=== PATIENT | female | born 1980 | race Two or more races ===

== ENCOUNTER 2024-04-12 12:23 | Emergency (ER) | payer MEDICAID, SELFPAY ==
[2024-04-12 12:49] VITALS: BP 128/79; PULSE 103; RESP 16; TEMP 39.1; O2SAT 96; BMI 30.7
--- NOTE | 2024-04-12 12:54 | XR_ITS ---
Examination: PA lateral chest 2 views Technique: Upright PA lateral chest 2 views Exam date and time: April 12, 2024 1402 hrs. Comparison May 11, 2023 Indications: Chest pain coughing abdominal pain beginning 2 days ago. Findings: Minimal opacity right base Mild prominence left ventricle Intact osseous structures Impression: Suspicious for early right base pneumonia
--- NOTE | 2024-04-12 12:55 | PD.EDRME ---
Rapid Medical Screening Exam RME Arrival date/time: 04/12/24 12:23 43-year-old female with diabetes, hypertension and valley fever presents to the emergency department complaints of back pain, fever and bodyaches Chief Complaint: Abdominal Pain Time Seen by Provider: 04/12/24 12:51 Vital signs: Vital Signs Temperature 102.4 F H 04/12/24 12:49 Pulse Rate 103 H 04/12/24 12:49 Respiratory Rate 16 04/12/24 12:49 Blood Pressure 128/79 04/12/24 12:49 Pulse Oximetry (%) 96 04/12/24 12:49 Oxygen Delivery Method Room Air 04/12/24 12:49
[2024-04-12 13:02] VITALS: TEMP 39.1
[2024-04-12] MEDS: ACETAMINOPHEN 500 MG TABLET 1000 MG PO (13:02)
[2024-04-12] MEDS: ONDANSETRON ODT 4 MG TABRAP PO (13:02)
[2024-04-12 13:09] LABS: Lactate (Lactic Acid) 1.8 mMol/L (0.4-2.0)
[2024-04-12 13:13] LABS: Basophils % (Auto) 0 % (0-2.5); Eosinophils % (Auto) 0 % (0-10); Hematocrit 33.7 % (36.0-46.0); Hemoglobin 11.4 g/dL (12.0-16.0); Immature Granulocytes % (Auto) 1 % (0-0); Immature Granulocytes Auto 0.07 Thou/mm3 (0.00-0.00); Lymphocytes # (Auto) 0.8 Thou/mm3 (1.0-4.8); Lymphocytes % (Auto) 6 % (10-50); Mean Corpuscular HGB Conc 33.8 g/dl (31.0-37.0); Mean Corpuscular Hemoglobin 26.6 pg (25.0-35.0); Mean Corpuscular Volume 79 fL (80-100); Monocytes # (Auto) 0.7 Thou/mm3 (0.0-0.8); Monocytes % (Auto) 5 % (0-12); Neutrophils # (Auto) 11.3 Thou/mm3 (1.8-7.7); Neutrophils % (Auto) 88 % (37-80); Nucleated Red Blood Cell % 0 /100 WBC (0); Platelet Count 378 Thou/mm3 (140-440); RDW Standard Deviation 38.9 fL (36.4-46.3); Red Blood Count 4.29 Miln/mm3 (4.00-5.20); White Blood Count 12.9 Thou/mm3 (3.6-11.0)
[2024-04-12 13:24] LABS: Glucose Estimated Average 295 mg/dL (80-131); Hemoglobin A1C 11.9 % Hgb (4.8-6.0)
[2024-04-12 13:39] LABS: Alanine Aminotransferase 7 U/L (10-49); Albumin, Serum 4.4 gm/dL (3.5-5.0); Albumin/Globulin Ratio 1.3 (1.2-2.2); Alkaline Phosphatase 143 U/L (46-116); Anion Gap 5 (7-16); Aspartate Amino Transferase < 10 U/L (0-34); BUN/Creatinine Ratio 14 Ratio (12-20); Bilirubin,Total 0.6 mg/dL (0.3-1.2); Blood Urea Nitrogen 17 mg/dL (9-23); Calcium 9.4 mg/dL (8.3-10.6); Calcium (Corrected) 9.4 mg/dL (8.5-10.1); Carbon Dioxide 23.7 mMol/L (20.0-31.0); Chloride 98 mMol/L (98-107); Creatinine (Component) 1.2 mg/dL (0.6-1.3); Estimated Creatinine Clearance 63.6 mL/min (>60); Globulin 3.4 gm/dL (2.3-3.5); Glucose 318 mg/dL (74-106); Osmolality,Calculated 268 (275-295); Potassium 3.6 mMol/L (3.4-5.1); Procalcitonin 0.25 ng/ml (0.0-0.49); Sodium 127 mMol/L (136-145); Total Protein 7.8 gm/dL (5.7-8.2); eGFR 58 See Note
[2024-04-12 14:20] LABS: Collection Type, Urine Clean Catch
[2024-04-12 14:27] LABS: HCG Qualitative,Urine Negative
[2024-04-12 14:35] LABS: Bacteria,Urine 4+; Bilirubin,Urine Negative (Negative); Blood,Urine 1+ (Negative); Clarity,Urine Turbid (Clear/Hazy); Color,Urine Yellow (Lt Yel-Yel); Glucose, Urine 4+ (Negative); Ketones,Urine Negative (Negative); Leukocyte Esterase,Urine Positive (Negative); Nitrite,Urine Negative (Negative); Protein,Urine 3+ (Neg - Trace); RBC,Urine 11 /hpf (0-3); Squamous Epithelial Cell,Urine < 1 /hpf (0-5); Urobilinogen,Urine Negative mg/dL (0.0-1.0); WBC,Urine 196 /hpf (0-5)
[2024-04-12 16:51] VITALS: BP 107/72; PULSE 76; RESP 15; TEMP 36.6; O2SAT 97
[2024-04-12 17:14] VITALS: TEMP 36.6
--- NOTE | 2024-04-12 17:54 | EDNOTE_ITS ---
ED Abdominal Pain RME/HPI General Chief Complaint: Abdominal Pain Stated complaint: Diffuse lower ab pain , fever x1 day, back pain Time seen by provider: 04/12/24 12:51 Arrival date/time: 04/12/24 12:23 This is a 43-year-old female that comes in with complaints of abdominal pain and back pain that started yesterday. Patient states she has a history of diabetes and has not taken her insulin today. Patient currently under the care of her primary provider. Patient was recently seen in ED with abnormal ct scans. 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, hypertension and valley fever presents to the emergency department complaints of back pain, fever and bodyaches Related Data Home Medications ?Medication ?Instructions ?Recorded ?Confirmed insulin glargine 100 unit/mL (3 15 unit subcut HS 05/26/21 03/04/23 mL) subcutaneous pen (Basaglar KwikPen U-100 Insulin) Previous Rx's ?Medication ?Instructions ?Recorded metformin 500 mg tablet 500 mg PO BID #60 tabs 10/18/22 lisinopril 20 mg tablet 20 mg PO QDAY 1 month #30 tabs 03/07/23 benzonatate 100 mg capsule 100 mg PO TID #14 caps 03/28/23 ibuprofen 800 mg tablet 800 mg PO TID PRN pain #30 tabs 03/28/23 ondansetron 4 mg disintegrating 4 mg PO Q8H PRN nausea and 03/28/23 tablet vomiting #10 tabs nirmatrelvir 300 mg (150 mg See Rx Instructions PO .COMPLEX 04/30/23 x2)-ritonavir 100 mg tablet,dose #30 tabs pack (Paxlovid) ibuprofen 800 mg tablet 800 mg PO TID PRN pain #30 tabs 03/13/24 cefuroxime axetil 500 mg tablet 500 mg PO BID #14 tabs 03/21/24 ibuprofen 800 mg tablet 800 mg PO Q8H #14 tabs 04/12/24 levofloxacin 750 mg tablet 750 mg PO QDAY #7 tabs 04/12/24 Allergies Allergy/AdvReac Type Severity Reaction Status Date / Time No Known Allergies Allergy Verified 03/21/24 16:15 Review of Systems Review of Systems Systems Reviewed: All systems reviewed, normal except as documented Past Medical History Past Medical History NEUROLOGIC: Negative Neurological Disorders, Cerebrovascular Accident, Transient Ischemic Attacks (TIA) or Seizures CARDIAC: Positive Cardiac Disorders and Hypertension; Negative Myocardial Infarction, Hypercholesterolemia or Congestive Heart Failure RESPIRATORY: Negative Chronic Obstructive Pulmonary Disease (COPD) or Asthma GASTROINTESTINAL: Negative Gastrointestinal Disorders, Hepatitis, Gastrointestin al Bleed, Colorectal Cancer, Hemorrhoids or Gastroesophageal Reflux Disease GENITOURINARY: Negative Genitourinary Disorders, Renal Disease, Kidney Stones or Prostate Cancer REPRODUCTIVE: Positive Previous Pregnancies; Negative Breast Cancer, Pelvic Inflammatory Disease or Testicular Cancer MUSCULOSKELETAL: Negative Musculoskeletal Disorders, Bone Cancer or Arthritis ENDOCRINE: Positive Diabetes Mellitus Type 2; Negative Endocrine Disorders, Diabetes Mellitus Type 1, Hyperthyroidism or Hypothyroidism HEMATOLOGIC: Negative Blood Disorders, Anemia or Sickle Cell Disease PSYCHO/SOCIAL: Positive Anxiety; Negative Recreational Drug Use or Depression OTHER HISTORY: Positive Blood Transfusions, Blood Transfusion Reaction and Cancer; Negative Autoimmune Disease, Anesthesia Reactions, Organ Transplant, Chemotherapy, Radiation Therapy, Hyperbaric Therapy, MRSA, VRSA, Vancomycin- Resistant Enterococci, Human Immunodeficiency Virus (HIV), Chicken Pox, Measles, Mumps, Rubella (Sinhala Measles), Pertussis, Clostridium Difficile, Breast Cancer, Cervical Cancer, Colorectal Cancer, Lung Cancer, Ovarian Cancer, Prostate Cancer or Testicular Cancer Family History FAMILY HISTORY: Positive Family Cardiac Disorders; Negative Family Psychiatric Problems, Family Respiratory Disorders, Family Gastrointestinal Problems, Family Cancer, Family Surgery or Family Anesthesia Reaction Surgical History SURGICAL: Positive Section; Negative Organ Transplant Social History SMOKING STATUS: Never smoker SUBSTANCE USE: does not use ED Exam General General appearance: Present alert and in no apparent distress Head Head exam: Present atraumatic Eye Eye exam: Present normal appearance, PERRL and EOMI ENT ENT exam: Present normal exam, normal oropharynx and mucous membranes moist Neck Neck exam: Present normal inspection, full ROM and trachea midline Chest Chest inspection: Present normal inspection and symmetric chest wall rise Respiratory Respiratory exam: Present normal lung sounds bilaterally Cardiovascular Cardiovascular exam: Present regular rate, normal rhythm and normal heart sounds Abdominal Exam Abdominal exam: Present soft and other (nontender to palpation ) Extremities Exam Extremities exam: Present normal inspection and full ROM Back Exam Back exam: Present normal inspection and full ROM Neurological Exam Neurological exam: Present alert, oriented X3 and CN II-XII intact Psychiatric Psychiatric exam: Present normal affect and normal mood Skin Skin exam: Present warm, dry, intact and normal color Course Quality Measures none Orders Category Date Time Status Bedside COVID-19 Antigen Test NOW Care 11/16/24 12:54 Completed Bedside Influenza A&B Antigen Test NOW Care 04/12/24 12:54 Completed Glucose [Bedside Blood Glucose] NOW Care 04/12/24 17:56 Completed XR chest 2V Stat Exams 04/12/24 12:54 Completed A1C [Glycohemoglobin w (eAG)] Stat Lab 04/12/24 13:00 Completed Blood Culture (Lab) Stat Lab 04/12/24 12:55 Completed CBC Stat Lab 04/12/24 13:00 Completed Comprehensive Metabolic Panel Stat Lab 04/12/24 13:00 Completed HCG Qualitative,Urine Stat Lab 04/12/24 13:59 Completed Lactate (Lactic Acid) Stat Lab 04/12/24 13:00 Completed Procalcitonin Stat Lab 04/12/24 13:00 Completed Urinalysis Stat Lab 04/12/24 13:59 Completed Urine Culture Stat Lab 04/12/24 13:59 Completed Acetaminophen Tab [Tylenol ES Tab] Med 04/12/24 12:55 Discontinued 1,000 mg PO X1 ONE Ketorolac Inj [Toradol Inj] Med 04/12/24 17:53 Discontinued 60 mg IM X1 ONE Ondansetron Odt [Zofran Odt] Med 04/12/24 12:55 Discontinued 4 mg PO X1 ONE cefTRIAXone [Rocephin] 1,000 mg Med 04/12/24 17:54 Discontinued Lidocaine 1% 20 ml [Xylocaine 1% 20 ML] 2.1 ml IM X1 Vital Signs Vital signs: Vital Signs Temperature 102.4 F H 04/12/24 12:49 Pulse Rate 103 H 04/12/24 12:49 Respiratory Rate 16 04/12/24 12:49 Blood Pressure 128/79 04/12/24 12:49 Pulse Oximetry (%) 96 04/12/24 12:49 Oxygen Delivery Method Room Air 04/12/24 12:49 Abdominal Pain MDM MDM Narrative MDM Narrative:: This is a 43-year-old female that comes in with complaints of abdominal pain and back pain that started yesterday. Patient states she has a history of diabetes and has not taken her insulin today. Patient currently under the care of her primary provider. Patient was recently seen in ED with abnormal ct scans. Chest x ray shows: Findings: Minimal opacity right base Mild prominence left ventricle Intact osseous structures Impression: Suspicious for early right base pneumonia Labs show slightly elevated wbc of 12.9. Pt had elevated glucose of 318. hbg a1c of 11.9. Pt urine showed uti. Pt chest x ray also shows possible early pneumonia. Will give a dose of rocephin. Pt given tylenol and toradol for pain. Pt feels better. Pt feels comfortable going home at this time. Will have pt follow up with primary provider in 1-2 days. Come back to ED if symptoms change or worsen. Patient data External records reviewed:: [facility] previous records Clinical information provided by:: patient Social determinants that could affect healthcare access:: none Patient has the following chronic illnesses:: diabetes How is presenting disease/condition affected by chronic disease/condition?: exacerbated by Evaluation data The following diagnostics were reviewed and interpreted by me:: lab results and radiology exam(s) Lab and/or radiology exams considered but not ordered:: none Interpretation Summary: see note Medications / Prescriptions Medications or Prescriptions considered but not ordered:: none Medication administrations:: Medication Administration History Discontinued Medications Acetaminophen (Acetaminophen 500 Mg Tablet) 1,000 mg PO X1 ONE Stop: 04/12/24 12:56 Last Admin: 04/12/24 13:02 Dose: 1,000 mg Documented By: KENYETTA Ceftriaxone Sodium 1,000 mg/ (Lidocaine HCl 2.1 ml) 0 mg IM X1 ONE Stop: 04/12/24 17:55 Last Admin: 04/12/24 18:20 Dose: 1,000 mg Documented By: Ketorolac Tromethamine (Ketorolac Inj 60 Mg/2 Ml Vial) 60 mg IM X1 ONE Stop: 04/12/24 17:54 Last Admin: 04/12/24 18:20 Dose: 60 mg Documented By: Ondansetron HCl (Ondansetron Odt 4 Mg Tabrap) 4 mg PO X1 ONE; Protocol Stop: 04/12/24 12:56 Last Admin: 04/12/24 13:02 Dose: 4 mg Documented By: KENYETTA see [facility] Consultations Consultation(s) initiated? (list below): No Diagnosis Differential diagnosis abdominal pain: abdominal pain, acute appendicitis, constipation and other (pneumonia ) Most likely diagnosis given after review of the tests above:: pneumonia, uti Admission Indicated Admission indicated?: not indicated Admission Request Was there a request for admission?: No Disposition Plan Disposition Plan: Discharge Discharge Attestation Discharge Attestation: The patient and all family members were given an opportunity to ask questions and understood the discharge instructions. Discharge instructions specifically effects, indications for sooner follow up or return to the emergency department, and the expected course of current diagnosis. Patient condition: Stable Discharge Plan Plan Patient Disposition: HOME (Self Care) Patient condition on transfer: Stable Prescriptions/Referrals Prescriptions/Med Rec: New levofloxacin 750 mg tablet 750 mg PO QDAY Qty: 7 0RF ibuprofen 800 mg tablet 800 mg PO Q8H Qty: 14 0RF No Action insulin glargine [Basaglar KwikPen U-100 Insulin] 100 unit/mL (3 mL) Insulin Pen 15 unit SUBCUT HS metformin 500 mg tablet 500 mg PO BID Qty: 60 0RF lisinopril 20 mg tablet 20 mg PO QDAY 30 Days Qty: 30 3RF ibuprofen 800 mg tablet 800 mg PO TID PRN (Reason: pain) Qty: 30 0RF benzonatate 100 mg capsule 100 mg PO TID Qty: 14 0RF ondansetron 4 mg tablet,disintegrating 4 mg PO Q8H PRN (Reason: nausea and vomiting) Qty: 10 0RF Paxlovid 300 mg (150 mg x 2)-100 mg tablets,dose pack See Rx Instructions .ROUTE .COMPLEX Qty: 30 0RF Rx Instructions: take TWO 150 mg tablets of nirmatrelvir with ONE 100 mg tablet of ritonavir twice daily for 5 days ibuprofen 800 mg tablet 800 mg PO TID PRN (Reason: pain) Qty: 30 0RF cefuroxime axetil 500 mg tablet 500 mg PO BID Qty: 14 0RF Referrals: Stan Cedillo MD [Primary Care Provider] - In 1 week Problem List Clinical Impression: UTI (urinary tract infection), Hematuria, Pneumonia, Hyperglycemia Patient/Caregiver Discharge Instructions Discharge Activity: activity as tolerated Education Materials: ED Pneumonia (Adult), ED CYSTITIS Female Adult Additional Instructions: Follow-up with primary provider in 1 to 2 days come back to the emergency room if symptoms change or worsen.. Print Language: Telugu Stand Alone Forms: Nina Award Info., Patient Portal Info Letter Attestation Attestation The patient was seen by the midlevel practitioner. I, the co-signing physician, was present during the entire ER visit. While I did not physically examine the patient, I was available for consultation as needed.
[2024-04-12] MEDS: KETOROLAC INJ 60 MG/2 ML VIAL IM (18:20)
[2024-04-12] MEDS: cefTRIAXone 1,000 MG, LIDOCAINE 1% 20 ML 2.1 ML IM (18:20)
[2024-04-12 18:36] VITALS: BP 121/76; PULSE 86; RESP 13; TEMP 36.6; O2SAT 100
[2024-04-12 19:16] VITALS: BP 134/78; PULSE 79; RESP 19; O2SAT 99
== END 2024-04-12 19:18 | disposition home or self-care (01) ==
PROVIDERS: Nurse Practitioner Primary Care; Emergency Provider Emergency Medicine; PCP Family Medicine
DX: N39.0 Urinary tract infection, site not specified (principal); J18.9 Pneumonia, unspecified organism; R31.9 Hematuria, unspecified; E10.65 Type 1 diabetes mellitus with hyperglycemia
CPT/HCPCS: 36415; 71046; 80053; 81001; 81025; 83036; 83605; 84145; 85025; 87040; 87077; 87086; 87186; 87400; 87811; 96372; 99283; J0696; J1885; J3490; Q0162; A9270

== ENCOUNTER 2024-05-19 01:35 | Emergency (ER) | payer MEDICAID, SELFPAY ==
[2024-05-19 01:35] VITALS: BMI 32.5
[2024-05-19 01:53] VITALS: BP 159/89; PULSE 90; RESP 17; TEMP 37; O2SAT 97
--- NOTE | 2024-05-19 02:07 | EDNOTE_ITS ---
ED Ear RME/HPI General Chief complaint: Ear Stated complaint: RT EAR PAIN SINCE SUNDAY Time Seen by Provider: 05/19/24 01:46 Source: patient Arrival date/time: 05/19/24 01:35 43-year-old female presents emergency department complaining of right ear pain that is been ongoing for 3 days. Patient denies any fever, chills, sore throat, cough, shortness of breath, or any other associated symptom. Mode of arrival: ambulatory Limitations: no limitations Related Data Home Medications ?Medication ?Instructions ?Recorded ?Confirmed insulin glargine 100 unit/mL (3 15 unit subcut HS 05/26/21 03/04/23 mL) subcutaneous pen (Basaglar KwikPen U-100 Insulin) Previous Rx's ?Medication ?Instructions ?Recorded metformin 500 mg tablet 500 mg PO BID #60 tabs 10/18/22 lisinopril 20 mg tablet 20 mg PO QDAY 1 month #30 tabs 03/07/23 benzonatate 100 mg capsule 100 mg PO TID #14 caps 03/28/23 ibuprofen 800 mg tablet 800 mg PO TID PRN pain #30 tabs 03/28/23 ondansetron 4 mg disintegrating 4 mg PO Q8H PRN nausea and 03/28/23 tablet vomiting #10 tabs nirmatrelvir 300 mg (150 mg See Rx Instructions PO .COMPLEX 04/30/23 x2)-ritonavir 100 mg tablet,dose #30 tabs pack (Paxlovid) ibuprofen 800 mg tablet 800 mg PO TID PRN pain #30 tabs 03/13/24 cefuroxime axetil 500 mg tablet 500 mg PO BID #14 tabs 03/21/24 ibuprofen 800 mg tablet 800 mg PO Q8H #14 tabs 04/12/24 levofloxacin 750 mg tablet 750 mg PO QDAY #7 tabs 04/12/24 amoxicillin 875 mg tablet 875 mg PO BID 7 days #14 tabs 05/19/24 ibuprofen 600 mg tablet 600 mg PO Q8H PRN pain #20 tabs 05/19/24 Allergies Allergy/AdvReac Type Severity Reaction Status Date / Time No Known Allergies Allergy Verified 05/19/24 01:37 Review of Systems Review of Systems Systems Reviewed: All systems reviewed, normal except as documented Constitutional Constitutional: Reports system reviewed and no additional complaints, except as documented, Denies body ache(s), Denies chills and Denies fever(s) Eyes Eyes: Reports system reviewed and no additional complaints, except as documented and Denies change in vision ENT Ears, Nose, Mouth, and Throat: Reports system reviewed and no additional complaints, except as documented, Denies disequilibrium, Denies dizziness, Reports otalgia, Denies sore throat and Denies vertigo Cardiovascular Cardiovascular: Reports system reviewed and no additional complaints, except as documented, Denies chest pain and Denies dyspnea Respiratory Respiratory: Reports system reviewed and no additional complaints, except as documented, Denies chest congestion, Denies cough and Denies dyspnea Gastrointestinal Gastrointestinal: Reports system reviewed and no additional complaints, except as documented, Denies abdominal pain, Denies nausea and Denies vomiting Musculoskeletal Musculoskeletal: Reports system reviewed and no additional complaints, except as documented, Denies abnormal gait and Denies arthralgias Integumentary/Breasts Skin/Breast: Reports system reviewed and no additional complaints, except as documented, Denies erythema, Denies rash and Denies wounds Neurologic Neurologic: Reports system reviewed and no additional complaints, except as documented, Denies abnormal gait, Denies disequilibrium, Denies dizziness and Denies vertigo Past Medical History Past Medical History NEUROLOGIC: Negative Neurological Disorders, Cerebrovascular Accident, Transient Ischemic Attacks (TIA) or Seizures CARDIAC: Positive Cardiac Disorders and Hypertension; Negative Myocardial Infarction, Hypercholesterolemia or Congestive Heart Failure RESPIRATORY: Negative Chronic Obstructive Pulmonary Disease (COPD) or Asthma GASTROINTESTINAL: Negative Gastrointestinal Disorders, Hepatitis, Gastrointestinal Bleed, Colorectal Cancer, Hemorrhoids or Gastroesophageal Reflux Disease GENITOURINARY: Negative Genitourinary Disorders, Renal Disease, Kidney Stones or Prostate Cancer REPRODUCTIVE: Positive Previous Pregnancies; Negative Breast Cancer, Pelvic Inflammatory Disease or Testicular Cancer MUSCULOSKELETAL: Negative Musculoskeletal Disorders, Bone Cancer or Arthritis ENDOCRINE: Positive Diabetes Mellitus Type 2; Negative Endocrine Disorders, Diabetes Mellitus Type 1, Hyperthyroidism or Hypothyroidism HEMATOLOGIC: Negative Blood Disorders, Anemia or Sickle Cell Disease PSYCHO/SOCIAL: Positive Anxiety; Negative Recreational Drug Use or Depression OTHER HISTORY: Positive Blood Transfusions, Blood Transfusion Reaction and Cancer; Negative Autoimmune Disease, Anesthesia Reactions, Organ Transplant, Chemotherapy, Radiation Therapy, Hyperbaric Therapy, MRSA, VRSA, Vancomycin- Resistant Enterococci, Human Immunodeficiency Virus (HIV), Chicken Pox, Measles, Mumps, Rubella (Greek Measles), Pertussis, Clostridium Difficile, Breast Ca ncer, Cervical Cancer, Colorectal Cancer, Lung Cancer, Ovarian Cancer, Prostate Cancer or Testicular Cancer Family History FAMILY HISTORY: Positive Family Cardiac Disorders; Negative Family Psychiatric Problems, Family Respiratory Disorders, Family Gastrointestinal Problems, Family Cancer, Family Surgery or Family Anesthesia Reaction Surgical History SURGICAL: Positive Section; Negative Organ Transplant Social History SMOKING STATUS: Never smoker SUBSTANCE USE: does not use ED Exam General Limitations: Present no limitations General appearance: Present alert and in no apparent distress Head Head exam: Present atraumatic Eye Eye exam: Present normal appearance, PERRL and EOMI ENT ENT exam: Present normal exam, normal oropharynx and mucous membranes moist Expanded ENT Exam TM/Canal exam: Right TM: erythema, bulging and canal tenderness Neck Neck exam: Present normal inspection, full ROM and trachea midline Chest Chest inspection: Present normal inspection and symmetric chest wall rise Respiratory Respiratory exam: Present normal lung sounds bilaterally Cardiovascular Cardiovascular exam: Present regular rate, normal rhythm and normal heart sounds Abdominal Exam Abdominal exam: Present soft and normal bowel sounds Extremities Exam Extremities exam: Present normal inspection and full ROM Back Exam Back exam: Present normal inspection and full ROM Neurological Exam Neurological exam: Present alert, oriented X3 and CN II-XII intact Psychiatric Psychiatric exam: Present normal affect and normal mood Skin Skin exam: Present warm, dry, intact and normal color Course Quality Measures none Vital Signs Vital signs: Vital Signs Temperature 98.6 F 05/19/24 01:53 Pulse Rate 90 05/19/24 01:53 Respiratory Rate 17 05/19/24 01:53 Blood Pressure 159/89 H 05/19/24 01:53 Pulse Oximetry (%) 97 05/19/24 01:53 Oxygen Delivery Method Room Air 05/19/24 01:53 97% room air within normal limits Ear MDM Narrative MDM Narrative:: 43-year-old female presents emergency department complaining of right ear pain that is been ongoing for 3 days. Patient denies any fever, chills, sore throat, cough, shortness of breath, or any other associated symptom. Patient appears nontoxic and hemodynamically stable. ENT exam consistent with right ear otitis media. Patient discharged on oral antibiotics and instructed to follow-up with primary care provider and return to emergency department for any worsening symptoms or as needed. Patient data External records reviewed:: [facility] previous records Clinical information provided by:: patient Social determinants that could affect healthcare access:: none Patient has the following chronic illnesses:: See chart How is presenting disease/condition affected by chronic disease/condition?: uneffected by Evaluation data The following diagnostics were reviewed and interpreted by me:: other (specify) (N/A) Lab and/or radiology exams considered but not ordered:: N/A Interpretation Summary: N/A Medications / Prescriptions Medications or Prescriptions considered but not ordered:: N/A Medication administrations:: N/A Consultations Consultation(s) initiated? (list below): No Diagnosis Ear Differential Diagnosis: otitis externa, otitis media and ruptured TM Most likely diagnosis given after review of the tests above:: Otitis media Admission Indicated Admission indicated?: not indicated Admission Request Was there a request for admission?: No Disposition Plan Disposition Plan: Discharge Discharge Attestation Discharge Attestation: The patient and all family members were given an opportunity to ask questions and understood the discharge instructions. Discharge instructions specifically effects, indications for sooner follow up or return to the emergency department, and the expected course of current diagnosis. Patient condition: Stable Discharge Plan Plan Patient Disposition: HOME (Self Care) Disposition Comment: Stable Prescriptions/Referrals Prescriptions/Med Rec: New amoxicillin 875 mg tablet 875 mg PO BID 7 Days Qty: 14 0RF ibuprofen 600 mg tablet 600 mg PO Q8H PRN (Reason: pain) Qty: 20 0RF No Action insulin glargine [Basaglar KwikPen U-100 Insulin] 100 unit/mL (3 mL) Insulin Pen 15 unit SUBCUT HS metformin 500 mg tablet 500 mg PO BID Qty: 60 0RF lisinopril 20 mg tablet 20 mg PO QDAY 30 Days Qty: 30 3RF ibuprofen 800 mg tablet 800 mg PO TID PRN (Reason: pain) Qty: 30 0RF benzonatate 100 mg capsule 100 mg PO TID Qty: 14 0RF ondansetron 4 mg tablet,disintegrating 4 mg PO Q8H PRN (Reason: nausea and vomiting) Qty: 10 0RF Paxlovid 300 mg (150 mg x 2)-100 mg tablets,dose pack See Rx Instructions .ROUTE .COMPLEX Qty: 30 0RF Rx Instructions: take TWO 150 mg tablets of nirmatrelvir with ONE 100 mg tablet of ritonavir twice daily for 5 days levofloxacin 750 mg tablet 750 mg PO QDAY Qty: 7 0RF ibuprofen 800 mg tablet 800 mg PO Q8H Qty: 14 0RF ibuprofen 800 mg tablet 800 mg PO TID PRN (Reason: pain) Qty: 30 0RF cefuroxime axetil 500 mg tablet 500 mg PO BID Qty: 14 0RF Problem List Clinical Impression: Otitis media Patient/Caregiver Discharge Instructions Discharge Activity: activity as tolerated Education Materials: ED Otitis Media Antibiotic ... Additional Instructions: Take antibiotics as prescribed. Andrey ibuprofen or Tylenol as needed for pain. Follow-up with primary care provider in 2 to 3 days. Return return to emergency department for any worsening symptoms or as needed Print Language: Romanian Stand Alone Forms: Nina Award Info., Patient Portal Info Letter PA/NURSE COLLEGE Supervising Physician PA/NURSE COLLEGE Supervising Physician: Dr. Calvin
== END 2024-05-19 02:37 | disposition home or self-care (01) ==
PROVIDERS: Emergency Provider Emergency Medicine; PCP Family Medicine
DX: H66.91 Otitis media, unspecified, right ear (principal)
CPT/HCPCS: 99281

== ENCOUNTER 2024-05-23 15:51 | Emergency (ER) | payer MEDICAID, SELFPAY ==
[2024-05-23 16:05] VITALS: BP 137/85; PULSE 90; RESP 17; TEMP 36.9; O2SAT 98; BMI 32.1
--- NOTE | 2024-05-23 16:53 | EDNOTE_ITS ---
ED Ear RME/HPI General Chief complaint: Ear Stated complaint: RIGHT EAR INFECTION NOW FEELING PAIN TO LEFT EAR Time Seen by Provider: 05/23/24 16:38 Source: patient and family Arrival date/time: 05/23/24 15:51 This is a 43-year-old female presents to the emergency department with complai nts of bodyaches, headache, cough and bilateral ear pressure. Patient reports she has had fever was seen by her PCP and was placed on Augmentin. Positive flulike symptoms for 2 days. Does report positive sick contacts at home similar symptoms. Denies chest pain, dyspnea. Mode of arrival: ambulatory Related Data Home Medications ?Medication ?Instructions ?Recorded ?Confirmed insulin glargine 100 unit/mL (3 15 unit subcut HS 05/26/21 03/04/23 mL) subcutaneous pen (Basaglar KwikPen U-100 Insulin) Previous Rx's ?Medication ?Instructions ?Recorded metformin 500 mg tablet 500 mg PO BID #60 tabs 10/18/22 lisinopril 20 mg tablet 20 mg PO QDAY 1 month #30 tabs 03/07/23 benzonatate 100 mg capsule 100 mg PO TID #14 caps 03/28/23 ibuprofen 800 mg tablet 800 mg PO TID PRN pain #30 tabs 03/28/23 ondansetron 4 mg disintegrating 4 mg PO Q8H PRN nausea and 03/28/23 tablet vomiting #10 tabs nirmatrelvir 300 mg (150 mg See Rx Instructions PO .COMPLEX 04/30/23 x2)-ritonavir 100 mg tablet,dose #30 tabs pack (Paxlovid) ibuprofen 800 mg tablet 800 mg PO TID PRN pain #30 tabs 03/13/24 cefuroxime axetil 500 mg tablet 500 mg PO BID #14 tabs 03/21/24 ibuprofen 800 mg tablet 800 mg PO Q8H #14 tabs 04/12/24 levofloxacin 750 mg tablet 750 mg PO QDAY #7 tabs 04/12/24 amoxicillin 875 mg tablet 875 mg PO BID 7 days #14 tabs 05/19/24 ibuprofen 600 mg tablet 600 mg PO Q8H PRN pain #20 tabs 05/19/24 fluticasone propionate 50 2 spray intranasal QDAY PRN nasal 05/23/24 mcg/actuation nasal congestion #16 grams spray,suspension (Flonase Allergy Relief) oseltamivir 75 mg capsule (Tamiflu) 75 mg PO BID 5 days #10 caps 05/23/24 promethazine-DM 6.25 mg-15 mg/5 mL 5 ml PO Q6H PRN cough #118 mL 05/23/24 oral syrup Allergies Allergy/AdvReac Type Severity Reaction Status Date / Time No Known Allergies Allergy Verified 05/19/24 01:37 Review of Systems Review of Systems Systems Reviewed: All systems reviewed, normal except as documented Narrative Review of Systems: Gen: + fever, no chills, no weight loss, + body ache EYES: No discharge, no visual changes, no pain HEENT: + ear pain, no congestion, no sore throat PULM: No shortness of breath, + cough, no congestion CV: No chest pain, no dyspnea on exertion, no palpitations GI: No nausea, no vomiting, no diarrhea, no pain, no constipation : No frequency, no urgency,? no dysuria Musc/skel: No joint pain, no back pain Skin: No rash? Neuro: No weakness, + headache ED Exam Narrative Physical exam: General: Sittiing in Exam table in no acute distress, answering questions appropriately HENT: normocephalic, atraumatic, EOMI, PERRLA, moist mucous membranes. Tympanic membranes normal pink Chest: chest wall is nontender Cardiac: regular rate and rhythm, normal S1 and S2, no murmurs, rubs, or gallops, capillary refill ?2 seconds Pulmonary: clear to auscultation bilaterally, no wheezing, crackles, or rhonchi Abdominal: active bowel sounds, soft, nontender, nondistended Neuro: A&OX3, CN II-XII intact, sensation grossly intact bilaterally in UE and LE. Skin: no rashes, no ecchymosis Ext: no lower extremity edema Course Quality Measures none Vital Signs Vital signs: Vital Signs Temperature 98.5 F 05/23/24 16:05 Pulse Rate 90 05/23/24 16:05 Respiratory Rate 17 05/23/24 16:05 Blood Pressure 137/85 H 05/23/24 16:05 Pulse Oximetry (%) 98 05/23/24 16:05 Oxygen Delivery Method Room Air 05/23/24 16:05 Ear MDM Narrative MDM Narrative:: 43-year-old female presented to the emergency department with flulike symptoms. Patient is awake and alert in no significant distress advised we will send appropriate medication adjunct medication for treatment at home. Advised to follow-up with her PCP or clinic on Sunday for follow-up care Patient data External records reviewed:: [facility] previous records Clinical information provided by:: patient Social determinants that could affect healthcare access:: none Patient has the following chronic illnesses:: none How is presenting disease/condition affected by chronic disease/condition?: no chronic disease Evaluation data The following diagnostics were reviewed and interpreted by me:: other (specify) Lab and/or radiology exams considered but not ordered:: none Interpretation Summary: none Medications / Prescriptions Medications or Prescriptions considered but not ordered:: none Medication administrations:: none Consultations Consultation(s) initiated? (list below): No Diagnosis Ear Differential Diagnosis: otitis externa, otitis media, ruptured TM, cerumen impaction and other Most likely diagnosis given after review of the tests above:: Influenza Admission Indicated Admission indicated?: not indicated Explain why admission is indicated or not indicated:: none Admission Request Was there a request for admission?: No Disposition Plan Disposition Plan: Discharge Discharge Attestation Discharge Attestation: The patient and all family members were given an opportunity to ask questions and understood the discharge instructions. Discharge instructions specifically effects, indications for sooner follow up or return to the emergency department, and the expected course of current diagnosis. Patient condition: Stable Discharge Plan Plan Patient Disposition: HOME (Self Care) Patient condition on transfer: Stable Prescriptions/Referrals Prescriptions/Med Rec: New oseltamivir [Tamiflu] 75 mg capsule 75 mg PO BID 5 Days Qty: 10 0RF fluticasone propionate [Flonase Allergy Relief] 50 mcg/actuation spray,suspension 2 spray intranasal QDAY PRN (Reason: nasal congestion) Qty: 16 0RF Rx Instructions: administer into each nostril promethazine-DM 6.25-15 mg/5 mL syrup 5 ml PO Q6H PRN (Reason: cough) Qty: 118 0RF No Action insulin glargine [Basaglar KwikPen U-100 Insulin] 100 unit/mL (3 mL) Insulin Pen 15 unit SUBCUT HS metformin 500 mg tablet 500 mg PO BID Qty: 60 0RF lisinopril 20 mg tablet 20 mg PO QDAY 30 Days Qty: 30 3RF ibuprofen 800 mg tablet 800 mg PO TID PRN (Reason: pain) Qty: 30 0RF benzonatate 100 mg capsule 100 mg PO TID Qty: 14 0RF ondansetron 4 mg tablet,disintegrating 4 mg PO Q8H PRN (Reason: nausea and vomiting) Qty: 10 0RF Paxlovid 300 mg (150 mg x 2)-100 mg tablets,dose pack See Rx Instructions .ROUTE .COMPLEX Qty: 30 0RF Rx Instructions: take TWO 150 mg tablets of nirmatrelvir with ONE 100 mg tablet of ritonavir twice daily for 5 days levofloxacin 750 mg tablet 750 mg PO QDAY Qty: 7 0RF ibuprofen 800 mg tablet 800 mg PO Q8H Qty: 14 0RF ibuprofen 800 mg tablet 800 mg PO TID PRN (Reason: pain) Qty: 30 0RF cefuroxime axetil 500 mg tablet 500 mg PO BID Qty: 14 0RF amoxicillin 875 mg tablet 875 mg PO BID 7 Days Qty: 14 0RF ibuprofen 600 mg tablet 600 mg PO Q8H PRN (Reason: pain) Qty: 20 0RF Problem List Clinical Impression: Influenza Patient/Caregiver Discharge Instructions Discharge Activity: activity as tolerated Education Materials: ED Influenza (Adult) Additional Instructions: Start Tamiflu, antipyretics to pharmacy. Advised to increase hydration, warm tea and chicken rice soup can corrugator helper for throat pain. Please follow-up with your clinic 3-day follow-up. If you develop any type of respiratory distress or change in condition please go immediately to nearest emergency department Print Language: Belarusian Stand Alone Forms: Nina Award Info., Patient Portal Info Letter PA/[employer] Supervising Physician PA/[employer] Supervising Physician: Dr Gloria
== END 2024-05-23 17:19 | disposition home or self-care (01) ==
LOC: SERX 17:14
PROVIDERS: Emergency Provider Emergency Medicine; PCP Family Medicine
DX: J11.1 Influenza due to unidentified influenza virus with other respiratory manifestations (principal)
CPT/HCPCS: 99281

== ENCOUNTER 2024-05-31 16:41 | Emergency (ER) | payer MEDICAID, SELFPAY ==
--- NOTE | 2024-05-31 18:33 | PC.NURSE ---
pt was not found outside and did not answer when name was called from lobby.
--- NOTE | 2024-05-31 19:15 | PC.NURSE ---
NO ANSWER FOR CALL BACK TO MAIN ED
== END 2024-05-31 19:50 | disposition left against medical advice (07) ==
LOC: SERX 19:45
PROVIDERS: Emergency Provider Emergency Medicine
DX: Z53.21 Procedure and treatment not carried out due to patient leaving prior to being seen by health care provider (principal)

== ENCOUNTER 2024-07-16 06:29 | Emergency (ER) | payer MEDICAID, SELFPAY ==
[2024-07-16 06:30] VITALS: BMI 34.5
[2024-07-16 06:44] VITALS: BP 183/103; PULSE 88; RESP 16; TEMP 36.8; O2SAT 100
--- NOTE | 2024-07-16 06:51 | XR_ITS ---
Examination: CT brain head without contrast. 2-D sagittal coronal reconstructions Date and time of exam:July 16, 2024 0752 hrs. Indications: Headaches beginning 3 days ago CTDI: vol (mGy):55 DLP: (mGycm):1086 Technique: Multiple CT axial sections of the brain have been obtained, 5 mm slice thickness. Contrast has not been administered. 2-D sagittal, coronal reconstructions have been obtained Low dose protocols were performed. One or more of the following dose reduction techniques were used; automated exposure control, adjustment of the mA and/or KV according to patient size, use of iterative reconstruction technique. Findings: No significant ventricular enlargement. Intra-axial or extra-axial hemorrhage density is not seen. No mass effect or midline shift Basal cisterns are not remarkable. Fourth ventricle is midline. Cranial vault intact. Impression: Negative for acute hemorrhage, mass effect or midline shift
--- NOTE | 2024-07-16 06:51 | XR_ITS ---
Examination: PA lateral chest 2 views TECHNIQUE: Upright PA lateral chest 2 views Exam date and time: July 16, 2024 0744 hours INDICATIONS: Onset chest pain today FINDINGS: Poorly defined nodular density 18 mm in the right lower lobe, which may represent vasculature Mild prominence left ventricle No pulmonary edema IMPRESSION: Recommend AP lordotic chest follow-up to exclude 18 mm nodule in the right lower lobe
--- NOTE | 2024-07-16 06:51 | EKG_ITS ---
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
[2024-07-16 06:57] VITALS: BP 183/103; PULSE 88
[2024-07-16] MEDS: Lisinopril 20 MG TABLET 40 MG PO (06:57)
[2024-07-16] MEDS: ACETAMINOPHEN 500 MG TABLET 1000 MG PO (06:58)
[2024-07-16 08:33] LABS: Basophils % (Auto) 0 % (0-2.5); Eosinophils # (Auto) 0.1 Thou/mm3 (0.0-0.5); Eosinophils % (Auto) 1 % (0-10); Hematocrit 32.4 % (36.0-46.0); Hemoglobin 10.4 g/dL (12.0-16.0); Immature Granulocytes % (Auto) 0 % (0-0); Immature Granulocytes Auto 0.03 Thou/mm3 (0.00-0.00); Lymphocytes # (Auto) 1.1 Thou/mm3 (1.0-4.8); Lymphocytes % (Auto) 14 % (10-50); Mean Corpuscular HGB Conc 32.1 g/dl (31.0-37.0); Mean Corpuscular Hemoglobin 25.5 pg (25.0-35.0); Mean Corpuscular Volume 79 fL (80-100); Monocytes # (Auto) 0.4 Thou/mm3 (0.0-0.8); Monocytes % (Auto) 5 % (0-12); Neutrophils # (Auto) 6.3 Thou/mm3 (1.8-7.7); Neutrophils % (Auto) 80 % (37-80); Nucleated Red Blood Cell % 0 /100 WBC (0); Platelet Count 360 Thou/mm3 (140-440); RDW Standard Deviation 40.9 fL (36.4-46.3); Red Blood Count 4.08 Miln/mm3 (4.00-5.20); White Blood Count 7.9 Thou/mm3 (3.6-11.0)
[2024-07-16 08:57] LABS: Alanine Aminotransferase 9 U/L (10-49); Albumin, Serum 4.1 gm/dL (3.5-5.0); Albumin/Globulin Ratio 1.4 (1.2-2.2); Alkaline Phosphatase 130 U/L (46-116); Anion Gap 7 (7-16); Aspartate Amino Transferase 10 U/L (0-34); BUN/Creatinine Ratio 23 Ratio (12-20); Bilirubin,Total 0.2 mg/dL (0.3-1.2); Blood Urea Nitrogen 25 mg/dL (9-23); Calcium 8.8 mg/dL (8.3-10.6); Calcium (Corrected) 8.8 mg/dL (8.5-10.1); Carbon Dioxide 24.6 mMol/L (20.0-31.0); Chloride 103 mMol/L (98-107); Creatinine (Component) 1.1 mg/dL (0.6-1.3); Estimated Creatinine Clearance 68.4 mL/min (>60); Glucose 236 mg/dL (74-106); Glucose Estimated Average 272 mg/dL (80-131); Hemoglobin A1C 11.1 % Hgb (4.8-6.0); Osmolality,Calculated 282 (275-295); Potassium 4.3 mMol/L (3.4-5.1); Sodium 135 mMol/L (136-145); Total Protein 7.1 gm/dL (5.7-8.2); Troponin I < 0.002 ng/mL (0.0-0.045); eGFR > 60 See Note
--- NOTE | 2024-07-16 08:59 | EDNOTE_ITS ---
ED General RME/HPI General Chief complaint: General Adult/Misc Complain Stated complaint: GENERAL BODYACHES AND NAUSEA Time Seen by Provider: 07/16/24 06:47 Arrival date/time: 07/16/24 06:29 43-year-old female presents to the emergency department today complaints of nausea left-sided body pain patient for symptoms ongoing, last couple of days patient reports no numbness or tingling. Patient reports that she is experiencing pain on the left side of her body Limitations: no limitations Related Data Home Medications ?Medication ?Instructions ?Recorded ?Confirmed insulin glargine 100 unit/mL (3 15 unit subcut HS 04/2903/04/23 mL) subcutaneous pen (Basaglar KwikPen U-100 Insulin) Previous Rx's ?Medication ?Instructions ?Recorded metformin 500 mg tablet 500 mg PO BID #60 tabs 10/18 lisinopril 20 mg tablet 20 mg PO QDAY 1 month #30 ta bs 03/07/23 benzonatate 100 mg capsule 100 mg PO TID #14 caps 06/19 ibuprofen 800 mg tablet 800 mg PO TID PRN pain #30 t abs 03/28/23 ondansetron 4 mg disintegrating 4 mg PO Q8H PRN nausea and 03/28/23 tablet vomiting #10 tabs nirmatrelvir 300 mg (150 mg See Rx Instructions PO .CO MPLEX 04/30/23 x2)-ritonavir 100 mg tablet,dose #30 tabs pack (Paxlovid) ibuprofen 800 mg tablet 800 mg PO TID PRN pain #30 t abs 03/13/24 cefuroxime axetil 500 mg tablet 500 mg PO BID #14 tabs 03/21/24 ibuprofen 800 mg tablet 800 mg PO Q8H #14 tabs 04/12 levofloxacin 750 mg tablet 750 mg PO QDAY #7 tabs 03/28 11/18 ibuprofen 600 mg tablet 600 mg PO Q8H PRN pain #20 t abs 05/19/24 fluticasone propionate 50 2 spray intranasal QDAY PRN nasal 05/23/24 mcg/actuation nasal congestion #16 grams spray,suspension (Flonase Allergy Relief) promethazine-DM 6.25 mg-15 mg/5 mL 5 ml PO Q6H PRN cou gh #118 mL 05/23/24 oral syrup ibuprofen 600 mg tablet 600 mg PO Q6H #30 tabs 07/16 Allergies Allergy/AdvReac Type Severity Reaction Status Date / Time No Known Allergies Allergy Verified 05/31/24 16:42 Review of Systems Review of Systems Systems Reviewed: All systems reviewed, normal except as documented Constitutional Constitutional: Reports system reviewed and no additional complaints, except as documented, Denies fever(s) and Reports headache(s) Eyes Eyes: Reports system reviewed and no additional complaints, except as documented and Denies blurry vision ENT Ears, Nose, Mouth, and Throat: Reports system reviewed and no additional complaints, except as documented, Reports headache(s), Denies nasal congestion and Denies nasal discharge Cardiovascular Cardiovascular: Reports system reviewed and no additional complaints, except as documented, Denies chest pain and Denies dyspnea Respiratory Respiratory: Reports system reviewed and no additional complaints, except as documented, Denies chest congestion, Denies cough and Denies dyspnea Gastrointestinal Gastrointestinal: Reports system reviewed and no additional complaints, except as documented and Denies abdominal pain Integumentary/Breasts Skin/Breast: Reports system reviewed and no additional complaints, except as documented and Denies rash Neurologic Neurologic: Reports system reviewed and no additional complaints, except as documented, Reports as per HPI and Reports headache(s) Past Medical History Past Medical History NEUROLOGIC: Negative Neurological Disorders, Cerebrovascular Accident, Transient Ischemic Attacks (TIA) or Seizures CARDIAC: Positive Cardiac Disorders and Hypertension; Negative Myocardial Infarction, Hypercholesterolemia or Congestive Heart Failure RESPIRATORY: Negative Chronic Obstructive Pulmonary Disease (COPD) or Asthma GASTROINTESTINAL: Negative Gastrointestinal Disorders, Hepatitis, Gastrointestinal Bleed, Colorectal Cancer, Hemorrhoids or Gastroesophageal Reflux Disease GENITOURINARY: Negative Genitourinary Disorders, Renal Disease, Kidney Stones or Prostate Cancer REPRODUCTIVE: Positive Previous Pregnancies; Negative Breast Cancer, Pelvic Inflammatory Disease or Testicular Cancer MUSCULOSKELETAL: Negative Musculoskeletal Disorders, Bone Cancer or Arthritis ENDOCRINE: Positive Diabetes Mellitus Type 2; Negative Endocrine Disorders, Diabetes Mellitus Type 1, Hyperthyroidism or Hypothyroidism HEMATOLOGIC: Negative Blood Disorders, Anemia or Sickle Cell Disease PSYCHO/SOCIAL: Positive Anxiety; Negative Recreational Drug Use or Depression OTHER HISTORY: Positive Blood Transfusions, Blood Transfusion Reaction and Cancer; Negative Autoimmune Disease, Anesthesia Reactions, Organ Transplant, Chemotherapy, Radiation Therapy, Hyperbaric Therapy, MRSA, VRSA, Vancomycin- Resistant Enterococci, Human Immunodeficiency Virus (HIV), Chicken Pox, Measles, Mumps, Rubella (Citizen [place] Measles), Pertussis, Clostridium Difficile, Breast Cancer, Cervical Cancer, Colorectal Cancer, Lung Cancer, Ovarian Cancer, Prostate Cancer or Testicular Cancer Family History FAMILY HISTORY: Positive Family Cardiac Disorders; Negative Family Psychiatric Problems, Family Respiratory Disorders, Family Gastrointestinal Problems, Family Cancer, Family Surgery or Family Anesthesia Reaction Surgical History SURGICAL: Positive Section; Negative Organ Transplant Social History SMOKING STATUS: Never smoker SUBSTANCE USE: does not use ED Exam General Limitations: Present no limitations General appearance: Present alert and in no apparent distress Head Head exam: Present atraumatic Eye Eye exam: Present normal appearance, PERRL and EOMI ENT ENT exam: Present normal exam, normal oropharynx and mucous membranes moist Neck Neck exam: Present normal inspection, full ROM and trachea midline Chest Chest inspection: Present normal inspection and symmetric chest wall rise Respiratory Respiratory exam: Present normal lung sounds bilaterally Cardiovascular Cardiovascular exam: Present regular rate, normal rhythm and normal heart sounds Abdominal Exam Abdominal exam: Present soft and normal bowel sounds Extremities Exam Extremities exam: Present normal inspection and full ROM Back Exam Back exam: Present normal inspection and full ROM Neurological Exam Neurological exam: Present alert, oriented X3 and CN II-XII intact Psychiatric Psychiatric exam: Present normal affect and normal mood Skin Skin exam: Present warm, dry, intact and normal color Course Quality Measures none Orders Category Date Time Status Bedside Blood Glucose NOW Care 07/16/24 06:53 Completed EKG (ED ONLY) *Do not use* NOW Care 07/16/24 06:[address] head/brain wo con Stat Exams 07/16/24 06:51 Completed EKG (ED Only) Stat Exams 07/16/24 06:51 Draft XR chest 2V Stat Exams 07/16/24 06:51 Completed A1C [Glycohemoglobin w (eAG)] Stat Lab 07/16/24 07:40 Completed CBC Stat Lab 07/16/24 07:40 Completed Comprehensive Metabolic Panel Stat Lab 07/16/24 07:40 Completed Troponin I Stat Lab 07/16/24 07:40 Completed Acetaminophen Tab [Tylenol ES Tab] Med 07/16/24 06:51 Discontinued 1,000 mg PO X1 ONE Lisinopril [Prinivil] Med 07/16/24 06:51 Discontinued 40 mg PO X1 ONE Vital Signs Vital signs: Vital Signs Temperature 98.3 F 07/16/24 06:44 Pulse Rate 88 07/16/24 06:44 Respiratory Rate 16 07/16/24 06:44 Blood Pressure 183/103 H 07/16/24 06:44 Pulse Oximetry (%) 100 07/16/24 06:44 Oxygen Delivery Method Room Air 07/16/24 06:44 O2 saturation 100% room air within normal limits Procedures -ED EKG Interpretation #1: Date of EK07/16/24 Time of EK:19 Rate: 87 Interpretation: Interpreted by me EKG Impression: Normal sinus rhythm, No acute ST-T changes, No ectopy, No ischemic changes, Normal QRS, Normal intervals and Normal axis MDM Patient data External records reviewed:: [facility] previous records Clinical information provided by:: patient Social determinants that could affect healthcare access:: none Patient has the following chronic illnesses:: None How is presenting disease/condition affected by chronic disease/condition?: no chronic disease Evaluation data The following diagnostics were reviewed and interpreted by me:: lab results, radiology exam(s) and EKG tracing(s) Lab and/or radiology exams considered but not ordered:: Labs, radiology, EKG obtained Interpretation Summary: Reviewed by me Medications Medications considered but not ordered:: Given Medication administrations:: Medication Administration History Discontinued Medications Acetaminophen (Acetaminophen 500 Mg Tablet) 1,000 mg PO X1 ONE Stop: 07/16/24 06:52 Last Admin: 07/16/24 06:58 Dose: 1,000 mg Documented By: MARCO ANTONIO Lisinopril (Lisinopril 20 Mg Tablet) 40 mg PO X1 ONE Stop: 07/16/24 06:52 Last Admin: 07/16/24 06:57 Dose: 40 mg Documented By: MARCO ANTONIO Given Consultations Consultation(s) initiated? (list below): No Diagnosis Differential Diagnosis ED Complaint MDM: Headache, dizziness, weakness, body aches Most likely diagnosis given after review of the tests above:: Headache, dizziness Admission Indicated Admission indicated?: not indicated Explain why admission is indicated or not indicated:: No cardiac Admission Request Was there a request for admission?: No Disposition Plan Disposition Plan: Discharge Discharge Attestation Discharge Attestation: The patient and all family members were given an opportunity to ask questions and understood the discharge instructions. Discharge instructions specifically effects, indications for sooner follow up or return to the emergency department, and the expected course of current diagnosis. Patient condition: Stable Medical Decision Making MDM Narrative MDM Narrative: 43-year-old female presents to the emergency department today complaints of nausea left-sided body pain patient for symptoms ongoing, last couple of days patient reports no numbness or tingling. Patient reports that she is experiencing pain on the left side of her body On exam patient well-appearing patient does not appear ill or toxic patient walks with steady gait patient has no abnormal neurological findings Lab work CT scan x-ray and EKG obtained There are no acute emergent findings at this time Patient discharged home in no distress to follow-up with primary care doctor in the next 24 to 48 hours and for any worsening symptoms to return to the ER immediately Differential Diagnosis Differential Diagnosis: Headache, dizziness, weakness, body aches Medical Records Medical records reviewed: Yes I reviewed the patient's medical records. Lab Data Lab results reviewed: Yes I reviewed the patient's lab results. 07/16/24 07:40 07/16/24 07:40 Labs: Lab Results 07/16/24 Range/Units 07:40 WBC 7.9 (3.6-11.0) Thou/mm3 RBC 4.08 (4.00-5.20) Miln/mm3 Hgb 10.4 L (12.0-16.0) g/dL Hct 32.4 L (36.0-46.0) % MCV 79 L (80-100) fL MCH 25.5 (25.0-35.0) pg MCHC 32.1 (31.0-37.0) g/dl RDW Std Deviation 40.9 (36.4-46.3) fL Plt Count 360 (140-440) Thou/mm3 Neut % (Auto) 80 (37-80) % Lymph % (Auto) 14 (10-50) % Reeves % (Auto) 5 (0-12) % Eos % (Auto) 1 (0-10) % Baso % (Auto) 0 (0-2.5) % Neut # (Auto) 6.3 (1.8-7.7) Thou/mm3 Lymph # (Auto) 1.1 (1.0-4.8) Thou/mm3 Reeves # (Auto) 0.4 (0.0-0.8) Thou/mm3 Eos # (Auto) 0.1 (0.0-0.5) Thou/mm3 Baso # (Auto) 0.0 (0.0-0.2) Thou/mm3 Immature Gran # (Auto) 0.03 H (0.00-0.00) Thou/mm3 Absolute Nucleated RBC 0.00 (0.00-0.00) Thou/mm3 Immature Gran % 0 (0-0) % Nucleated RBC % 0 (0) /100 WBC Sodium 135 L (136-145) mMol/L Potassium 4.3 (3.4-5.1) mMol/L Chloride 103 (98-107) mMol/L Carbon Dioxide 24.6 (20.0-31.0) mMol/L Anion Gap 7 (7-16) BUN 25 H (9-23) mg/dL Creatinine 1.1 (0.6-1.3) mg/dL Estim Creat Clear Calc 68.4 (>60) mL/min eGFR > 60 (60 - ) See Note BUN/Creatinine Ratio 23 H (12-20) Ratio Glucose 236 H (74-106) mg/dL Estimated Ave Glu mg/dL 272 H (80-131) mg/dL Hemoglobin A1c 11.1 H (4.8-6.0) % Hgb Calculated Osmolality 282 (275-295) Calcium 8.8 (8.3-10.6) mg/dL Corrected Calcium 8.8 (8.5-10.1) mg/dL Total Bilirubin 0.2 L (0.3-1.2) mg/dL AST 10 (0-34) U/L ALT 9 L (10-49) U/L Alkaline Phosphatase 130 H (46-116) U/L Troponin I < 0.002 (0.0-0.045) ng/mL Total Protein 7.1 (5.7-8.2) gm/dL Albumin 4.1 (3.5-5.0) gm/dL Globulin 3.0 (2.3-3.5) gm/dL Albumin/Globulin Ratio 1.4 (1.2-2.2) Radiology Data Radiology results reviewed: Yes I reviewed the patient's radiology results. Discharge Plan Plan Patient Disposition: HOME (Self Care) Disposition Comment: Stable Prescriptions/Referrals Prescriptions/Med Rec: New ibuprofen 600 mg tablet 600 mg PO Q6H Qty: 30 0RF No Action insulin glargine [Basaglar KwikPen U-100 Insulin] 100 unit/mL (3 mL) Insulin Pen 15 unit SUBCUT HS metformin 500 mg tablet 500 mg PO BID Qty: 60 0RF lisinopril 20 mg tablet 20 mg PO QDAY 30 Days Qty: 30 3RF ibuprofen 800 mg tablet 800 mg PO TID PRN (Reason: pain) Qty: 30 0RF benzonatate 100 mg capsule 100 mg PO TID Qty: 14 0RF ondansetron 4 mg tablet,disintegrating 4 mg PO Q8H PRN (Reason: nausea and vomiting) Qty: 10 0RF Paxlovid 300 mg (150 mg x 2)-100 mg tablets,dose pack See Rx Instructions .ROUTE .COMPLEX Qty: 30 0RF Rx Instructions: take TWO 150 mg tablets of nirmatrelvir with ONE 100 mg tablet of ritonavir twice daily for 5 days levofloxacin 750 mg tablet 750 mg PO QDAY Qty: 7 0RF ibuprofen 800 mg tablet 800 mg PO Q8H Qty: 14 0RF fluticasone propionate [Flonase Allergy Relief] 50 mcg/actuation spray,suspension 2 spray intranasal QDAY PRN (Reason: nasal congestion) Qty: 16 0RF Rx Instructions: administer into each nostril promethazine-DM 6.25-15 mg/5 mL syrup 5 ml PO Q6H PRN (Reason: cough) Qty: 118 0RF ibuprofen 800 mg tablet 800 mg PO TID PRN (Reason: pain) Qty: 30 0RF cefuroxime axetil 500 mg tablet 500 mg PO BID Qty: 14 0RF ibuprofen 600 mg tablet 600 mg PO Q8H PRN (Reason: pain) Qty: 20 0RF Referrals: Stan Cedillo MD [Primary Care Provider] - In 1 week Problem List Clinical Impression: Body aches Patient/Caregiver Discharge Instructions Education Materials: Measuring Your Pain Additional Instructions: Please follow up with your primary care doctor in the next 24-48hrs for any worsening symptoms return here immediately Please have repeat chest x-ray in outpatient basis in the next 1 to 2 weeks Print Language: Romansh Stand Alone Forms: Nina Award Info., Patient Portal Info Letter PA/ENVIRONMENTAL MAINTENANCE WORKER Supervising Physician PA/ENVIRONMENTAL MAINTENANCE WORKER Supervising Physician: Dr Gloria
== END 2024-07-16 13:29 | disposition home or self-care (01) ==
PROVIDERS: Nurse Practitioner Primary Care; Emergency Provider Emergency Medicine; PCP Family Medicine
DX: R52 Pain, unspecified (principal); R11.0 Nausea
CPT/HCPCS: 36415; 70450; 71046; 80053; 83036; 84484; 85025; 93005; 99284; A9270

== ENCOUNTER 2024-08-17 22:14 | Emergency (ER) | payer MEDICAID, SELFPAY ==
--- NOTE | 2024-08-17 22:26 | PD.EDADULT ---
ED General RME/HPI General Chief complaint: Extremity Problem,Nontraumatic Stated complaint: BOTH LEG SWELLING Time Seen by Provider: 08/17/24 22:25 Arrival date/time: 08/17/24 22:14 RME / HPI RME / HPI narrative: This section includes all my notes and documentations, including HPI, PE, and ED course. Bassem Calvin MD HPI: 44-year-old female here with multiple concerns. Has HTN and DM. For the past several days, she reports headache and blurry vision and sinus congestion and cough and swelling in the feet and lower legs. No speech impairment. No loss of power in arms legs. No chest pain or shortness of breath. No other complaints. ROS: All negative except as documented in HPI. Physical Exam: General: Alert and oriented. No acute distress. High BP noted. Eyes: Conjunctivae and lids clear. EOMI. PERRL. ENT: No nasal congestion. Pharynx normal. Tympanic membrane normal bilaterally. Neck: Supple. No lymphadenopathy. No JVD. Heart: RRR. Lungs: No respiratory distress. Good air movement. No rhonchi, wheezing, rales. Chest: No tenderness. Abdomen: Soft and nontender. Normal bowel sounds. No distension. No rebound or guarding. Back: No CVA tenderness. Legs: No clubbing, cyanosis, edema. Skin: Warm and dry. Neuro: Alert and oriented X 3. Cranial Nerves II-XII grossly intact. No peripheral motor deficits. I reviewed all diagnostic test results. My interpretation of the EKG is sinus rhythm with no acute ST?T changes. My interpretation of the chest x-ray is right field infiltrates. My review of the head CT report is sinusitis. My review of the bilateral leg US report is no DVT. Blood tests and urine tests remarkable for glucose 268. At this point, diagnoses include hypertensive urgency, hyperglycemia, pneumonia, and sinusitis. Treatment here included oral clonidine 0.3 mg, oral Zithromax 500 mg, and regular insulin 5 units SC. Significant improvement noted. Recommended more outpatient care and workup. Based on my best medical judgment, made decision no further evaluation or treatment indicated at this time. Patient understands and agrees to the discharge instructions customized and printed, see below. Discharge instructions from Dr. Calvin: 1. After extensive evaluation, there is no life-threatening condition.? Such as stroke or brain tumor or heart attack or pulmonary embolism (blood clots in your lungs) or pneumothorax (collapsed lung). No blood clots in your legs. 2. But we found very high BP, pneumonia, sinus infection, and high sugar level. 3. Take clonidine 0.1 mg (two pills) every morning and every night until seen by your doctor. Take Zithromax and cefdinir for pneumonia and sinus infection. Elevate your feet/ankles above your waist level when sitting or resting or sleeping. 4. See a private doctor on 08/19/2024 for recheck and further care. Ask to review all test results and official radiology reports, to make sure you receive all necessary follow-ups and monitoring. 5. Seek immediate medical care with worsening or with any concerns.?? Bassem Calvin MD Related Data Home Medications ?Medication ?Instructions ?Recorded ?Confirmed insulin glargine 100 unit/mL (3 15 unit subcut HS 05/26/21 03/04/23 mL) subcutaneous pen (Basaglar KwikPen U-100 Insulin) Previous Rx's ?Medication ?Instructions ?Recorded metformin 500 mg tablet 500 mg PO BID #60 tabs 10/18/22 lisinopril 20 mg tablet 20 mg PO QDAY 1 month #30 tabs 03/07/23 benzonatate 100 mg capsule 100 mg PO TID #14 caps 03/28/23 ibuprofen 800 mg tablet 800 mg PO TID PRN pain #30 tabs 03/28/23 ondansetron 4 mg disintegrating 4 mg PO Q8H PRN nausea and 03/28/23 tablet vomiting #10 tabs nirmatrelvir 300 mg (150 mg See Rx Instructions PO .COMPLEX 04/30/23 x2)-ritonavir 100 mg tablet,dose #30 tabs pack (Paxlovid) ibuprofen 800 mg tablet 800 mg PO TID PRN pain #30 tabs 03/13/24 cefuroxime axetil 500 mg tablet 500 mg PO BID #14 tabs 03/21/24 ibuprofen 800 mg tablet 800 mg PO Q8H #14 tabs 04/12/24 levofloxacin 750 mg tablet 750 mg PO QDAY #7 tabs 04/12/24 ibuprofen 600 mg tablet 600 mg PO Q8H PRN pain #20 tabs 05/19/24 fluticasone propionate 50 2 spray intranasal QDAY PRN nasal 05/23/24 mcg/actuation nasal congestion #16 grams spray,suspension (Flonase Allergy Relief) promethazine-DM 6.25 mg-15 mg/5 mL 5 ml PO Q6H PRN cough #118 mL 05/23/24 oral syrup ibuprofen 600 mg tablet 600 mg PO Q6H #30 tabs 07/16/24 azithromycin 500 mg tablet 500 mg PO QDAY 3 days #3 tabs 08/18/24 (Zithromax TRI-DANA) cefdinir 300 mg capsule 300 mg PO BID #14 caps 08/18/24 clonidine HCl 0.1 mg tablet 0.2 mg (2 x 0.1 mg) PO BID #120 08/18/24 tabs Allergies Allergy/AdvReac Type Severity Reaction Status Date / Time No Known Allergies Allergy Verified 08/17/24 22:15 Course Quality Measures none Orders Category Date Time Status Bedside COVID-19 Antigen Test NOW Care 08/17/24 22:50 Completed Bedside Influenza A&B Antigen Test NOW Care 08/17/24 22:50 Completed EKG (ED ONLY) *Do not use* NOW Care 08/17/24 22:50 Completed Saline [Insert IV] NOW Care 08/17/24 22:[address] head/brain wo con Stat Exams 08/17/24 22:50 Taken EKG (ED Only) Stat Exams 08/17/24 22:50 Draft US venous doppler LE BI Stat Exams 08/17/24 22:50 Completed XR chest 1V portable Stat Exams 08/17/24 22:50 Completed BNP [B-Type Natriuretic Peptide] Stat Lab 08/17/24 23:53 Completed CBC Stat Lab 08/17/24 23:53 Completed CMP [Comprehensive Metabolic Panel] Stat Lab 08/17/24 23:53 Completed D-Dimer Stat Lab 08/17/24 23:53 Completed Magnesium Stat Lab 08/17/24 23:53 Completed TSH [Thyroid Stimulating Hormone] Stat Lab 08/17/24 23:53 Completed Troponin I Stat Lab 08/17/24 23:53 Completed UA, C/S IF [Urinalysis, C/S if Indicated] Stat Lab 08/18/24 00:28 Completed Azithromycin Po [Zithromax PO] Med 08/18/24 00:58 Discontinued 500 mg PO X1 ONE Insulin Regular Med 08/18/24 00:47 Discontinued 5 unit IV X1 ONE Insulin Regular Med 08/18/24 00:58 Discontinued 5 unit SC X1 ONE cloNIDine HCL [Catapres] Med 08/17/24 22:47 Discontinued 0.3 mg PO X1 ONE Vital Signs Vital signs: Vital Signs Temperature 98.3 F 08/17/24 22:28 Pulse Rate 74 08/17/24 22:28 Respiratory Rate 20 08/17/24 22:28 Blood Pressure 205/83 H 08/17/24 22:28 Pulse Oximetry (%) 100 08/17/24 22:28 Oxygen Delivery Method Room Air 08/17/24 22:28 [facility] Patient data External records reviewed:: [facility] previous records Clinical information provided by:: patient Social determinants that could affect healthcare access:: none Patient has the following chronic illnesses:: HTN and DM How is presenting disease/condition affected by chronic disease/condition?: exacerbated by Evaluation data The following diagnostics were reviewed and interpreted by me:: lab results, radiology exam(s) and EKG tracing(s) (My interpretation of the EKG: NSR (71 bpm) with no ST-T changes. Bassem Calvin MD) Lab and/or radiology exams considered but not ordered:: None Interpretation Summary: Hypertensive urgency and hyperglycemia and sinusitis and pneumonia Medications Medications considered but not ordered:: None Medication administrations:: Medication Administration History Discontinued Medications Azithromycin (Azithromycin 250 Mg Tablet) 500 mg PO X1 ONE Stop: 08/18/24 00:59 Last Admin: 08/18/24 01:21 Dose: 500 mg Documented By: KG Clonidine (Clonidine Hcl 0.1 Mg Tablet) 0.3 mg PO X1 ONE Stop: 08/17/24 22:48 Last Admin: 08/17/24 23:01 Dose: 0.3 mg Documented By: KG Insulin Human Regular (Insulin Hum Regular 1 Unit/0.01 Ml (Per Unit)) 5 unit IV X1 ONE Stop: 08/18/24 00:48 Last Admin: 08/18/24 01:22 Dose: Not Given Documented By: KG Non-Admin Reason: Discontinued Insulin Human Regular (Insulin Hum Regular 1 Unit/0.01 Ml (Per Unit)) 5 unit SC X1 ONE Stop: 08/18/24 00:59 Last Admin: 08/18/24 01:17 Dose: 5 unit Documented By: KG Co-signed By: CCT Clonidine and Zithromax and insulin Consultations Consultation(s) initiated? (list below): No Diagnosis Differential Diagnosis ED Complaint MDM: CVA, brain tumor, FL, PE, electrolyte abnormalities, COVID, influenza Most likely diagnosis given after review of the tests above:: Hypertension,, hyperglycemia, sinusitis, pneumonia Admission Indicated Admission indicated?: not indicated Explain why admission is indicated or not indicated:: With significant improvement, there was no indication for admission. Admission Request Was there a request for admission?: No Disposition Plan Disposition Plan: Discharge Discharge Attestation Discharge Attestation: The patient and all family members were given an opportunity to ask questions and understood the discharge instructions. Discharge instructions specifically effects, indications for sooner follow up or return to the emergency department, and the expected course of current diagnosis. Patient condition: Stable Medical Decision Making Differential Diagnosis Differential Diagnosis: CVA, brain tumor, FL, PE, electrolyte abnormalities, COVID, influenza Lab Data 08/17/24 23:53 08/17/24 23:53 Labs: Lab Results 08/17/24 08/18/24 Range/Units 23:53 00:28 WBC 11.0 (3.6-11.0) Thou/mm3 RBC 3.66 L (4.00-5.20) Miln/mm3 Hgb 9.1 L (12.0-16.0) g/dL Hct 28.4 L (36.0-46.0) % MCV 78 L (80-100) fL MCH 24.9 L (25.0-35.0) pg MCHC 32.0 (31.0-37.0) g/dl RDW Std Deviation 39.3 (36.4-46.3) fL Plt Count 355 (140-440) Thou/mm3 Neut % (Auto) 59 (37-80) % Lymph % (Auto) 30 (10-50) % [place] % (Auto) 6 (0-12) % Eos % (Auto) 4 (0-10) % Baso % (Auto) 1 (0-2.5) % Neut # (Auto) 6.6 (1.8-7.7) Thou/mm3 Lymph # (Auto) 3.3 (1.0-4.8) Thou/mm3 [place] # (Auto) 0.7 (0.0-0.8) Thou/mm3 Eos # (Auto) 0.4 (0.0-0.5) Thou/mm3 Baso # (Auto) 0.1 (0.0-0.2) Thou/mm3 Immature Gran # (Auto) 0.02 H (0.00-0.00) Thou/mm3 Absolute Nucleated RBC 0.00 (0.00-0.00) Thou/mm3 Immature Gran % 0 (0-0) % Nucleated RBC % 0 (0) /100 WBC D-Dimer 708 H (<600) ng/mL Sodium 136 (136-145) mMol/L Potassium 4.2 (3.4-5.1) mMol/L Chloride 104 (98-107) mMol/L Carbon Dioxide 23.3 (20.0-31.0) mMol/L Anion Gap 9 (7-16) BUN 23 (9-23) mg/dL Creatinine 1.2 (0.6-1.3) mg/dL Estim Creat Clear Calc Not Performed. eGFR 58 L (60 - ) See Note BUN/Creatinine Ratio 19 (12-20) Ratio Glucose 268 H (74-106) mg/dL Calculated Osmolality 284 (275-295) Calcium 8.4 (8.3-10.6) mg/dL Corrected Calcium 8.6 (8.5-10.1) mg/dL Magnesium 1.8 (1.6-2.6) mg/dL Total Bilirubin 0.2 L (0.3-1.2) mg/dL AST < 10 (0-34) U/L ALT 7 L (10-49) U/L Alkaline Phosphatase 115 (46-116) U/L Troponin I < 0.002 (0.0-0.045) ng/mL B-Natriuretic Peptide 82 (0-100) pg/mL Total Protein 6.5 (5.7-8.2) gm/dL Albumin 3.7 (3.5-5.0) gm/dL Globulin 2.8 (2.3-3.5) gm/dL Albumin/Globulin Ratio 1.3 (1.2-2.2) TSH 5.15 H (0.55-4.78) uIU/mL Ur Collection Type Clean Catch Urine Color Colorless A (Lt Yel-Yel) Urine Clarity Clear (Clear/Hazy) Urine pH 6.5 (5.0-7.0) Ur Specific [place] 1.021 (1.001-1.035) Urine Protein 2+ A (Neg - Trace) Urine Glucose (UA) 4+ A (Negative) Urine Ketones Negative (Negative) Urine Blood Trace (Negative) Urine Nitrite Negative (Negative) Urine Bilirubin Negative (Negative) Urine Urobilinogen (Auto) Negative (0.0-1.0) mg/dL Ur Leukocyte Esterase Negative (Negative) Urine RBC 6 H (0-3) /hpf Urine WBC 0 (0-5) /hpf Ur Squamous Epith Cells < 1 (0-5) /hpf Urine Bacteria None (None) Ur Culture Indicated? Not Indicated Discharge Plan Plan Patient Disposition: HOME (Self Care) Prescriptions/Referrals Prescriptions/Med Rec: New clonidine HCl 0.1 mg tablet 0.2 mg PO BID Qty: 120 0RF cefdinir 300 mg capsule 300 mg PO BID Qty: 14 0RF azithromycin [Zithromax TRI-DANA] 500 mg tablet 500 mg PO QDAY 3 Days Qty: 3 0RF No Action insulin glargine [Basaglar KwikPen U-100 Insulin] 100 unit/mL (3 mL) Insulin Pen 15 unit SUBCUT HS metformin 500 mg tablet 500 mg PO BID Qty: 60 0RF lisinopril 20 mg tablet 20 mg PO QDAY 30 Days Qty: 30 3RF ibuprofen 800 mg tablet 800 mg PO TID PRN (Reason: pain) Qty: 30 0RF benzonatate 100 mg capsule 100 mg PO TID Qty: 14 0RF ondansetron 4 mg tablet,disintegrating 4 mg PO Q8H PRN (Reason: nausea and vomiting) Qty: 10 0RF Paxlovid 300 mg (150 mg x 2)-100 mg tablets,dose pack See Rx Instructions .ROUTE .COMPLEX Qty: 30 0RF Rx Instructions: take TWO 150 mg tablets of nirmatrelvir with ONE 100 mg tablet of ritonavir twice daily for 5 days levofloxacin 750 mg tablet 750 mg PO QDAY Qty: 7 0RF ibuprofen 800 mg tablet 800 mg PO Q8H Qty: 14 0RF fluticasone propionate [Flonase Allergy Relief] 50 mcg/actuation spray,suspension 2 spray intranasal QDAY PRN (Reason: nasal congestion) Qty: 16 0RF Rx Instructions: administer into each nostril promethazine-DM 6.25-15 mg/5 mL syrup 5 ml PO Q6H PRN (Reason: cough) Qty: 118 0RF ibuprofen 600 mg tablet 600 mg PO Q6H Qty: 30 0RF ibuprofen 800 mg tablet 800 mg PO TID PRN (Reason: pain) Qty: 30 0RF cefuroxime axetil 500 mg tablet 500 mg PO BID Qty: 14 0RF ibuprofen 600 mg tablet 600 mg PO Q8H PRN (Reason: pain) Qty: 20 0RF Referrals: Stan Cedillo MD [Primary Care Provider] - In 1 week Problem List Clinical Impression: Pneumonia, Hypertension, Sinus infection Patient/Caregiver Discharge Instructions Discharge Activity: activity as tolerated Education Materials: ED Hypertension, Established, ED Pneumonia (Adult), ED Sinusitis (Antibiotic Treatment) Additional Instructions: Discharge instructions from Dr. Calvin: 1. After extensive evaluation, there is no life-threatening condition.? Such as stroke or brain tumor or heart attack or pulmonary embolism (blood clots in your lungs) or pneumothorax (collapsed lung). No blood clots in your legs. 2. But we found very high BP, pneumonia, sinus infection, and high sugar level. 3. Take clonidine 0.1 mg (two pills) every morning and every night until seen by your doctor. Take Zithromax and cefdinir for pneumonia and sinus infection. Elevate your feet/ankles above your waist level when sitting or resting or sleeping. 4. See a private doctor on 08/19/2024 for recheck and further care. Ask to review all test results and official radiology reports, to make sure you receive all necessary follow-ups and monitoring. 5. Seek immediate medical care with worsening or with any concerns.?? Print Language: Citizen Of [place] Stand Alone Forms: Nina Award Info., Patient Portal Info Letter
[2024-08-17 22:28] VITALS: BP 205/83; PULSE 74; RESP 20; TEMP 36.8; O2SAT 100
--- NOTE | 2024-08-17 22:50 | XR_ITS ---
Examination: Venous duplex lower extremity sonogram, bilateral. Date and time of exam: August 17, 2024, 1110 hours INDICATIONS: Lower extremity pain and swelling today with elevated d-dimer Technique: Multiple sonographic images of the deep venous system have been obtained. B-mode/2-D grayscale imaging of vascular structures and Doppler spectral analysis (waveforms) and color performed Both legs are examined. Findings: Deep venous systems do not demonstrate abnormal echogenicity. All visualized deep veins exhibit compressibility. All visualized deep veins exhibit augmentation. Impression: Negative for deep vein thrombosis
--- NOTE | 2024-08-17 22:50 | XR_ITS ---
Examination: AP chest single view TECHNIQUE: AP portable upright chest single view Exam date and time: August 17, 2024, 2156 hours Comparison July 16, 2024 INDICATIONS: Shortness of breath today. FINDINGS: Atelectasis versus early pneumonia right base Mild prominence left ventricle Mild elevation right hemidiaphragm IMPRESSION: Atelectasis versus early pneumonia right base, clinical correlation advised
--- NOTE | 2024-08-17 22:50 | EKG_ITS ---
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
--- NOTE | 2024-08-17 22:50 | XR_ITS ---
Examination: CT brain head without contrast. 2-D sagittal coronal reconstructions Date and time of exam:August 18, 2024, 0004 hours Comparison July 16, 2024 INDICATIONS: Bilateral leg swelling, high blood pressure and headache today CTDI: vol (mGy):52 DLP: (mGycm):1009 Technique: Multiple CT axial sections of the brain have been obtained, 5 mm slice thickness. Contrast has not been administered. 2-D sagittal, coronal reconstructions have been obtained Low dose protocols were performed. One or more of the following dose reduction techniques were used; automated exposure control, adjustment of the mA and/or KV according to patient size, use of iterative reconstruction technique. Findings: No significant ventricular enlargement. Intra-axial or extra-axial hemorrhage density is not seen. No mass effect or midline shift Basal cisterns are not remarkable. Fourth ventricle is midline. Cranial vault intact. Significant right maxillary sinusitis Impression: Negative for acute hemorrhage, mass effect or midline shift Severe right maxillary sinusitis
[2024-08-17 23:01] VITALS: BP 198/91; PULSE 76
[2024-08-17] MEDS: cloNIDine HCL 0.1 MG TABLET 0.3 MG PO (23:01)
--- NOTE | 2024-08-17 23:02 | PC.NURSE ---
Pt to Ultrasound via wheelchair at this time.
[2024-08-17 23:37] VITALS: BP 188/106; PULSE 75; RESP 20; O2SAT 100
[2024-08-18 00:07] LABS: Basophils # (Auto) 0.1 Thou/mm3 (0.0-0.2); Basophils % (Auto) 1 % (0-2.5); Eosinophils # (Auto) 0.4 Thou/mm3 (0.0-0.5); Eosinophils % (Auto) 4 % (0-10); Hematocrit 28.4 % (36.0-46.0); Hemoglobin 9.1 g/dL (12.0-16.0); Immature Granulocytes % (Auto) 0 % (0-0); Immature Granulocytes Auto 0.02 Thou/mm3 (0.00-0.00); Lymphocytes # (Auto) 3.3 Thou/mm3 (1.0-4.8); Lymphocytes % (Auto) 30 % (10-50); Mean Corpuscular Hemoglobin 24.9 pg (25.0-35.0); Mean Corpuscular Volume 78 fL (80-100); Monocytes # (Auto) 0.7 Thou/mm3 (0.0-0.8); Monocytes % (Auto) 6 % (0-12); Neutrophils # (Auto) 6.6 Thou/mm3 (1.8-7.7); Neutrophils % (Auto) 59 % (37-80); Nucleated Red Blood Cell % 0 /100 WBC (0); Platelet Count 355 Thou/mm3 (140-440); RDW Standard Deviation 39.3 fL (36.4-46.3); Red Blood Count 3.66 Miln/mm3 (4.00-5.20)
[2024-08-18 00:10] VITALS: BP 174/83; PULSE 69; RESP 19; TEMP 37.1; O2SAT 100
[2024-08-18 00:25] LABS: B-Type Natriuretic Peptide 82 pg/mL (0-100)
[2024-08-18 00:30] VITALS: BP 161/87; PULSE 74; RESP 16; O2SAT 98
--- NOTE | 2024-08-18 00:32 | PRELIM_ITS ---
CT scan of the head without intravenous contrast (axial sections with sagittal and coronal reformats). August 18, 2024 0003 hours Clinical History: High BP and headache Comparison: None Findings: There is no intracranial hemorrhage, extra-axial collection, mass, mass-effect or midline shift. There is good fabian-white differentiation. There is no CT evidence of acute large vascular territorial infarct. Ventricles are not enlarged or effaced. Visualized paranasal sinuses and tympanomastoid cavities are clear except for severe right maxillary sinus fluid/mucosal thickening and trace right mastoid fluid. The bony calvarium is intact. Impression: 1. No intracranial hemorrhage, mass-effect or midline shift. No CT evidence of acute large vascular territorial infarct. 2. Right maxillary sinusitis. Report Electronically Signed By: Jasbir Durand 08/18/2024 12:31:18 AM [EST]
[2024-08-18 00:33] LABS: Collection Type, Urine Clean Catch; WBC,Urine 0 /hpf (0-5)
[2024-08-18 00:38] LABS: Alanine Aminotransferase 7 U/L (10-49); Albumin, Serum 3.7 gm/dL (3.5-5.0); Albumin/Globulin Ratio 1.3 (1.2-2.2); Alkaline Phosphatase 115 U/L (46-116); Anion Gap 9 (7-16); Aspartate Amino Transferase < 10 U/L (0-34); BUN/Creatinine Ratio 19 Ratio (12-20); Bilirubin,Total 0.2 mg/dL (0.3-1.2); Blood Urea Nitrogen 23 mg/dL (9-23); Calcium 8.4 mg/dL (8.3-10.6); Calcium (Corrected) 8.6 mg/dL (8.5-10.1); Carbon Dioxide 23.3 mMol/L (20.0-31.0); Chloride 104 mMol/L (98-107); Creatinine (Component) 1.2 mg/dL (0.6-1.3); Globulin 2.8 gm/dL (2.3-3.5); Glucose 268 mg/dL (74-106); Magnesium 1.8 mg/dL (1.6-2.6); Osmolality,Calculated 284 (275-295); Potassium 4.2 mMol/L (3.4-5.1); Sodium 136 mMol/L (136-145); Thyroid Stimulating Hormone 5.15 uIU/mL (0.55-4.78); Total Protein 6.5 gm/dL (5.7-8.2); Troponin I < 0.002 ng/mL (0.0-0.045); eGFR 58 See Note
[2024-08-18 00:39] LABS: D-Dimer 708 ng/mL (<600)
[2024-08-18 00:40] LABS: Bilirubin,Urine Negative (Negative); Blood,Urine Trace (Negative); Clarity,Urine Clear (Clear/Hazy); Color,Urine Colorless (Lt Yel-Yel); Culture Indicated,Urine Not Indicated; Glucose, Urine 4+ (Negative); Ketones,Urine Negative (Negative); Leukocyte Esterase,Urine Negative (Negative); Nitrite,Urine Negative (Negative); PH,Urine 6.5 (5.0-7.0); Protein,Urine 2+ (Neg - Trace); RBC,Urine 6 /hpf (0-3); Specific Gravity,Urine 1.021 (1.001-1.035); Squamous Epithelial Cell,Urine < 1 /hpf (0-5); Urobilinogen,Urine Negative mg/dL (0.0-1.0)
--- NOTE | 2024-08-18 00:57 | PC.NURSE ---
Dr. Calvin at the bedside. States he will switch insulin from IV to subQ.
[2024-08-18] MEDS: INSULIN HUM REGULAR 1 UNIT/0.01 ML (PER UNIT) 5 UNIT SC (01:17)
[2024-08-18] MEDS: AZITHROMYCIN 250 MG TABLET 500 MG PO (01:21)
[2024-08-18 01:25] VITALS: BP 157/87; PULSE 75; RESP 20; O2SAT 99
== END 2024-08-18 01:27 | disposition home or self-care (01) ==
PROVIDERS: Emergency Provider Emergency Medicine; PCP Family Medicine
DX: J18.9 Pneumonia, unspecified organism (principal); J32.0 Chronic maxillary sinusitis; M79.662 Pain in left lower leg; I10 Essential (primary) hypertension; M79.661 Pain in right lower leg
CPT/HCPCS: 36415; 70450; 71045; 80053; 81001; 83735; 83880; 84443; 84484; 85025; 85379; 87400; 87811; 93005; 93970; 96372; 99284; J1815; A9270

== ENCOUNTER 2024-12-10 16:44 | Inpatient (IN) | payer MEDICAID, SELFPAY ==
[2024-12-10 16:52] VITALS: BP 187/83; PULSE 76; RESP 18; TEMP 37.1; O2SAT 98
--- NOTE | 2024-12-10 17:02 | XR_ITS ---
Examination: PA lateral chest 2 views TECHNIQUE: Upright PA lateral chest 2 views Date and time: December 10, 2024 1916 hours INDICATIONS: Back pain shortness of breath today FINDINGS: Mild prominence of ventricle and Opacity right base which may represent a pulmonary mass, 19 mm No pulmonary edema Mild osteopenia IMPRESSION: Recommend CT chest without contrast follow-up to exclude 19 mm pulmonary mass right lower lobe
--- NOTE | 2024-12-10 17:02 | EKG_ITS ---
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
--- NOTE | 2024-12-10 17:03 | PD.EDRME ---
Rapid Medical Screening Exam RME Arrival date/time: 12/10/24 16:44 44-year-old female presents to the emergency department today for complaints of extremity swelling and upper back pain today Chief Complaint: Skin/Abscess/Foreign Body Vital signs: Vital Signs Temperature 98.8 F 12/10/24 16:52 Pulse Rate 76 12/10/24 16:52 Respiratory Rate 18 12/10/24 16:52 Blood Pressure 187/83 H 12/10/24 16:52 Pulse Oximetry (%) 98 12/10/24 16:52 Oxygen Delivery Method Room Air 12/10/24 16:52
[2024-12-10 17:28] LABS: Basophils # (Auto) 0.0 Thou/mm3 (0.0-0.2); Basophils % (Auto) 0 % (0-2.5); Eosinophils # (Auto) 0.4 Thou/mm3 (0.0-0.5); Eosinophils % (Auto) 5 % (0-10); Hematocrit 24.2 % (36.0-46.0); Immature Granulocytes Auto 0.03 Thou/mm3 (0.00-0.00); Lymphocytes # (Auto) 2.0 Thou/mm3 (1.0-4.8); Lymphocytes % (Auto) 23 % (10-50); Mean Corpuscular HGB Conc 32.6 g/dl (31.0-37.0); Mean Corpuscular Hemoglobin 25.1 pg (25.0-35.0); Mean Corpuscular Volume 77 fL (80-100); Monocytes # (Auto) 0.5 Thou/mm3 (0.0-0.8); Monocytes % (Auto) 6 % (0-12); Neutrophils # (Auto) 6.0 Thou/mm3 (1.8-7.7); Neutrophils % (Auto) 66 % (37-80); Nucleated Red Blood Cell # 0.00 Thou/mm3 (0.00-0.00); Nucleated Red Blood Cell % 0 /100 WBC (0); Platelet Count 325 Thou/mm3 (140-440); RDW Standard Deviation 42.7 fL (36.4-46.3); Red Blood Count 3.15 Miln/mm3 (4.00-5.20); White Blood Count 9.0 Thou/mm3 (3.6-11.0)
[2024-12-10 17:36] LABS: Hemoglobin 7.9 g/dL (12.0-16.0)
[2024-12-10 17:38] LABS: INR 1.0 (0.9-1.3); Partial Thromboplastin Time 29.9 Seconds (22.0-36.0); Prothrombin Time 10.9 Seconds (9.0-12.2)
[2024-12-10 17:39] LABS: Collection Type, Urine Clean Catch
[2024-12-10 17:50] LABS: Alanine Aminotransferase 8 U/L (10-49); Albumin, Serum 4.2 gm/dL (3.5-5.0); Albumin/Globulin Ratio 1.4 (1.2-2.2); Alkaline Phosphatase 94 U/L (46-116); Anion Gap 10 (7-16); Aspartate Amino Transferase 13 U/L (0-34); BUN/Creatinine Ratio 8 Ratio (12-20); Bilirubin,Total 0.2 mg/dL (0.3-1.2); Blood Urea Nitrogen 31 mg/dL (9-23); Calcium 8.6 mg/dL (8.3-10.6); Calcium (Corrected) 8.6 mg/dL (8.5-10.1); Carbon Dioxide 19.6 mMol/L (20.0-31.0); Chloride 108 mMol/L (98-107); Creatinine (Component) 3.9 mg/dL (0.6-1.3); Globulin 2.9 gm/dL (2.3-3.5); Glucose 207 mg/dL (74-106); Magnesium 1.6 mg/dL (1.6-2.6); Osmolality,Calculated 288 (275-295); Potassium 5.4 mMol/L (3.4-5.1); Sodium 138 mMol/L (136-145); Total Protein 7.1 gm/dL (5.7-8.2); Troponin I < 0.002 ng/mL (0.0-0.045); eGFR 14 See Note
[2024-12-10 17:56] LABS: HCG Qualitative,Urine Negative
[2024-12-10 18:00] LABS: Amphetamine/Methamp Scrn,U Negative (Negative); Barbiturate Screen,Urine Negative (Negative); Benzodiazepines Screen,Urine Negative (Negative); Benzoylecgonine Screen, Ur Negative (Negative); Bilirubin,Urine Negative (Negative); Blood,Urine 3+ (Negative); Clarity,Urine Clear (Clear/Hazy); Color,Urine Colorless (Lt Yel-Yel); Fentanyl Screen,Urine Negative (Negative); Glucose, Urine Trace (Negative); Ketones,Urine Negative (Negative); Leukocyte Esterase,Urine Negative (Negative); Nitrite,Urine Negative (Negative); Opiate Screen,Urine Negative (Negative); PH,Urine 6.5 (5.0-7.0); Protein,Urine 2+ (Neg - Trace); RBC,Urine 820 /hpf (0-3); Specific Gravity,Urine 1.012 (1.001-1.035); Squamous Epithelial Cell,Urine 1 /hpf (0-5); THC Screen,Urine Negative (Negative); Urobilinogen,Urine Negative mg/dL (0.0-1.0); WBC,Urine 13 /hpf (0-5)
[2024-12-10 18:35] LABS: B-Type Natriuretic Peptide 235 pg/mL (0-100)
--- NOTE | 2024-12-10 19:53 | XR_ITS ---
Examination: CT abdomen and pelvis without contrast. Coronal 3-D reconstructions. Sagittal 2-D reconstructions. Date and time of exam:December 10, 2024 2101 hours Comparison March 21, 2024 INDICATIONS: Back pain and flank pain beginning this morning CTDI: vol (mGy): 10 DLP: (mGycm): 578 Technique: Axial images of the abdomen have been obtained, 3 mm slice thickness Intravenous contrast material has not been administered. Low dose protocols were performed. One or more of the following dose reduction techniques were used; automated exposure control, adjustment of the mA and/or KV according to patient size, use of iterative reconstruction technique. Findings: Again noted thick walled 25 mm cavitary lesion in the right middle lobe and 22 mm pulmonary nodule anterior right lower lobe No visualized or perisplenic lesions Cholelithiasis No pancreatic or adrenal mass Numerous bilateral 1 to 2 mm renal calculi Moderate bilateral hydronephrosis, with no ureteral calculi Thickening of the bladder wall Normal appendix No bowel obstruction Retroverted uterus Advanced degenerative disc disease L5-S1 IMPRESSION: Thick walled cavitary lesion right middle lobe and 22 mm pulmonary nodule anterior right lower lobe again noted Numerous bilateral nonobstructing renal calculi Moderate bilateral hydronephrosis without ureteral calculi, consider vesicoureteral reflux Cystitis pattern
--- NOTE | 2024-12-10 20:30 | PD.EDBACK ---
ED Back Injury Pain RME/HPI General Chief Complaint: Skin/Abscess/Foreign Body Stated Complaint: WOKE UP WITH FACE SWOLLEN ; LEFT BACK PAIN Time Seen by Provider: 12/10/24 18:13 Arrival date/time: 12/10/24 16:44 Limitations: no limitations RME / HPI RME / HPI Narrative: Patient is a 44-year-old female who is here today with left abdominal pain and bilateral leg swelling. She endorses nausea but no vomiting. Has no dysuria. Has no hematuria. Has no chest pain or fevers. She has no history of kidney stones. She has a history of hypertension and diabetes. No history of known CHF. Related Data Home Medications ?Medication ?Instructions ?Recorded ?Confirmed insulin glargine 100 unit/mL (3 15 unit subcut HS 05/26/21 03/04/23 mL) subcutaneous pen (Basaglar KwikPen U-100 Insulin) Previous Rx's ?Medication ?Instructions ?Recorded metformin 500 mg tablet 500 mg PO BID #60 tabs 10/18/22 lisinopril 20 mg tablet 20 mg PO QDAY 1 month #30 tabs 03/07/23 benzonatate 100 mg capsule 100 mg PO TID #14 caps 03/28/23 ibuprofen 800 mg tablet 800 mg PO TID PRN pain #30 tabs 03/28/23 ondansetron 4 mg disintegrating 4 mg PO Q8H PRN nausea and 03/28/23 tablet vomiting #10 tabs nirmatrelvir 300 mg (150 mg See Rx Instructions PO .COMPLEX 04/30/23 x2)-ritonavir 100 mg tablet,dose #30 tabs pack (Paxlovid) ibuprofen 800 mg tablet 800 mg PO TID PRN pain #30 tabs 03/13/24 cefuroxime axetil 500 mg tablet 500 mg PO BID #14 tabs 03/21/24 ibuprofen 800 mg tablet 800 mg PO Q8H #14 tabs 04/12/24 levofloxacin 750 mg tablet 750 mg PO QDAY #7 tabs 04/12/24 ibuprofen 600 mg tablet 600 mg PO Q8H PRN pain #20 tabs 05/19/24 fluticasone propionate 50 2 spray intranasal QDAY PRN nasal 05/23/24 mcg/actuation nasal congestion #16 grams spray,suspension (Flonase Allergy Relief) promethazine-DM 6.25 mg-15 mg/5 mL 5 ml PO Q6H PRN cough #118 mL 05/23/24 oral syrup ibuprofen 600 mg tablet 600 mg PO Q6H #30 tabs 07/16/24 cefdinir 300 mg capsule 300 mg PO BID #14 caps 08/18/24 clonidine HCl 0.1 mg tablet 0.2 mg (2 x 0.1 mg) PO BID #120 08/18/24 tabs Allergies Allergy/AdvReac Type Severity Reaction Status Date / Time No Known Allergies Allergy Verified 12/10/24 16:47 Review of Systems Review of Systems Systems Reviewed: All systems reviewed, normal except as documented ED Exam General Limitations: Present no limitations General appearance: Present alert and in no apparent distress Head Head exam: Present atraumatic Eye Eye exam: Present normal appearance, PERRL and EOMI ENT ENT exam: Present normal exam, normal oropharynx and mucous membranes moist Neck Neck exam: Present normal inspection, full ROM and trachea midline Chest Chest inspection: Present normal inspection and symmetric chest wall rise Respiratory Respiratory exam: Present normal lung sounds bilaterally Cardiovascular Cardiovascular exam: Present regular rate, normal rhythm and normal heart sounds Abdominal Exam Abdominal exam: Present soft and normal bowel sounds Extremities Exam Extremities exam: Present normal inspection, full ROM and pedal edema (+2 bilateral edema) Back Exam Back exam: Present normal inspection and full ROM; Absent CVA tenderness (R) or CVA tenderness (L) Neurological Exam Neurological exam: Present alert and oriented X3 Psychiatric Psychiatric exam: Present normal affect and normal mood Skin Skin exam: Present warm, dry, intact and normal color Course Quality Measures none Orders Category Date Time Status EKG (ED ONLY) *Do not use* NOW Care 12/10/24 17:02 Completed Insert IV NOW Care 12/10/24 22:[address] abdomen pelvis wo con Stat Exams 12/10/24 19:53 Completed EKG (ED Only) Stat Exams 12/10/24 17:02 Draft XR chest 2V Stat Exams 12/10/24 17:02 Completed B-Type Natriuretic Peptide Stat Lab 12/10/24 17:10 Completed CBC Stat Lab 12/10/24 17:10 Completed Comprehensive Metabolic Panel Stat Lab 12/10/24 17:10 Completed Drug Screen,Urine Stat Lab 12/10/24 17:30 Completed HCG Qualitative,Urine Stat Lab 12/10/24 17:30 Completed Magnesium Stat Lab 12/10/24 17:10 Completed Partial Thromboplastin Time Stat Lab 12/10/24 17:10 Completed Prothrombin Time with INR Stat Lab 12/10/24 17:10 Completed Troponin I Stat Lab 12/10/24 17:10 Completed Urinalysis Stat Lab 12/10/24 17:30 Completed Labetalol IV [Trandate IV] Med 12/10/24 22:58 Discontinued 10 mg IVP X1 ONE Ondansetron Odt [Zofran Odt] Med 12/10/24 19:56 Discontinued 4 mg PO X1 ONE Sodium Chloride 0.9% 250 ml [Ns] 250 ml Med 12/10/24 19:56 Discontinued IV 999 mls/hr Vital Signs Vital signs: Vital Signs Temperature 98.8 F 12/10/24 16:52 Pulse Rate 76 12/10/24 16:52 Respiratory Rate 18 12/10/24 16:52 Blood Pressure 187/83 H 12/10/24 16:52 Pulse Oximetry (%) 98 12/10/24 16:52 Oxygen Delivery Method Room Air 12/10/24 16:52 Back Pain / Injury MDM Narrative MDM Narrative:: Patient is a 44-year-old female who is here today with left abdominal pain and bilateral leg swelling. She denies any shortness of breath orthopnea. She endorses nausea but no vomiting. Has no dysuria. Has no hematuria. Has no chest pain or fevers. She has no history of kidney stones. She has a history of hypertension and diabetes. No history of known CHF. On exam, patient has +2, bilateral edema. She has no wheezes or crackles in the lungs. Workup reveals no leukocytosis. Patient has a significant anemia with a hemoglobin 7.9 and hematocrit of 24.2. Metabolic panel is remarkable for hyperkalemia at 5.4, bicarb of 19.6. Creatinine is newly elevated at 3.9. GFR is 14. Total bili 0.2. BNP is elevated to 35. Urinalysis has numerous erythrocytes at 820. There are few leukocytes at 13. CT of the abdomen and pelvis which CT of the abdomen pelvis was obtained which reveals bilateral, nonobstructing renal calculi without any stones in the ureters. There is bilateral hydronephrosis. Radiology reports a cystitis pattern. Patient was given a dose of ceftriaxone in the ER. We were also given a bolus of normal saline for creatinine. She was given a low-dose of 20 mg, furosemide, after discussing the case with attending ER physician. Dr. Pineda with nephrology was consulted and will see the patient in the morning. Will admit to medicine. Case was discussed with our [facility] hospitalist team. Patient data External records reviewed:: None Clinical information provided by:: patient Social determinants that could affect healthcare access:: none Patient has the following chronic illnesses:: Hypertension, diabetes How is presenting disease/condition affected by chronic disease/condition?: exacerbated by Evaluation data The following diagnostics were reviewed and interpreted by me:: lab results (Anemia, kidney injury, hyperkalemia) and radiology exam(s) (Bilateral renal calculi with no stones in the ureters hydronephrosis is present cystitis pattern is reported by radiology) Lab and/or radiology exams considered but not ordered:: n/a Interpretation Summary: SAPPHIRE, hematuria, hypertension Medications / Prescriptions Medications or Prescriptions considered but not ordered:: n/a Medication administrations:: Medication Administration History Discontinued Medications Sodium Chloride (Ns) 250 mls @ 999 mls/hr IV .Q16M ONE Stop: 12/10/24 20:11 Last Admin: 12/10/24 22:54 Dose: 999 mls/hr Documented By: BD Labetalol HCl (Labetalol Inj 5 Mg/Ml Vial 20 Ml) 10 mg IVP X1 ONE Stop: 12/10/24 22:59 Ondansetron HCl (Ondansetron Odt 4 Mg Tabrap) 4 mg PO X1 ONE; Protocol Stop: 12/10/24 19:57 Last Admin: 12/10/24 20:55 Dose: 4 mg Documented By: FF See above Consultations Consultation(s) initiated? (list below): Yes Diagnosis Differential diagnosis back pain/injury: renal colic and pyelonephritis Most likely diagnosis given after review of the tests above:: SAPPHIRE, hyperal kalemia, hematuria Admission Indicated Admission indicated?: indicated Admission Request Was there a request for admission?: Yes Admission Attestation Admission request attestation: Discussed case with [] from Hospitalist service regarding admission. Discussed patients ED course, exam findings, labs, and radiology results. The Hospitalist [agrees,declines] to accept the patient for admission. Disposition Plan Disposition Plan: Admit Discharge Plan Plan Patient Disposition: HOME (Self Care) Patient condition on transfer: Stable Prescriptions/Referrals Prescriptions/Med Rec: No Action insulin glargine [Basaglar AnnabelleikPen U-100 Insulin] 100 unit/mL (3 mL) Insulin Pen 15 unit SUBCUT HS metformin 500 mg tablet 500 mg PO BID Qty: 60 0RF lisinopril 20 mg tablet 20 mg PO QDAY 30 Days Qty: 30 3RF ibuprofen 800 mg tablet 800 mg PO TID PRN (Reason: pain) Qty: 30 0RF benzonatate 100 mg capsule 100 mg PO TID Qty: 14 0RF ondansetron 4 mg tablet,disintegrating 4 mg PO Q8H PRN (Reason: nausea and vomiting) Qty: 10 0RF Paxlovid 300 mg (150 mg x 2)-100 mg tablets,dose pack See Rx Instructions .ROUTE .COMPLEX Qty: 30 0RF Rx Instructions: take TWO 150 mg tablets of nirmatrelvir with ONE 100 mg tablet of ritonavir twice daily for 5 days levofloxacin 750 mg tablet 750 mg PO QDAY Qty: 7 0RF ibuprofen 800 mg tablet 800 mg PO Q8H Qty: 14 0RF fluticasone propionate [Flonase Allergy Relief] 50 mcg/actuation spray,suspension 2 spray intranasal QDAY PRN (Reason: nasal congestion) Qty: 16 0RF Rx Instructions: administer into each nostril promethazine-DM 6.25-15 mg/5 mL syrup 5 ml PO Q6H PRN (Reason: cough) Qty: 118 0RF ibuprofen 600 mg tablet 600 mg PO Q6H Qty: 30 0RF clonidine HCl 0.1 mg tablet 0.2 mg PO BID Qty: 120 0RF cefdinir 300 mg capsule 300 mg PO BID Qty: 14 0RF ibuprofen 800 mg tablet 800 mg PO TID PRN (Reason: pain) Qty: 30 0RF cefuroxime axetil 500 mg tablet 500 mg PO BID Qty: 14 0RF ibuprofen 600 mg tablet 600 mg PO Q8H PRN (Reason: pain) Qty: 20 0RF Referrals: Stan Cedillo MD [Primary Care Provider] - In 1 week Problem List Clinical Impression: Hypertension, SAPPHIRE (acute kidney injury), Hematuria Patient/Caregiver Discharge Instructions Print Language: Urdu Stand Alone Forms: Nina Award Info., Patient Portal Info Letter
[2024-12-10] MEDS: ONDANSETRON ODT 4 MG TABRAP PO (20:55)
[2024-12-10 22:36] VITALS: BP 210/108; PULSE 78; RESP 16; TEMP 36.9; O2SAT 100
[2024-12-10] MEDS: SODIUM CHLORIDE 0.9% 250 ML 250 ML 999 ML IV (22:54)
[2024-12-10 23:04] VITALS: BP 210/108; PULSE 74
[2024-12-10] MEDS: LABETALOL INJ 5 MG/ML VIAL 20 ML 10 MG IVP (23:04)
--- NOTE | 2024-12-10 23:21 | PC.NURSE ---
called pharmacy to verify meds
[2024-12-10 23:39] LABS: Hematocrit 24.0 % (36.0-46.0)
[2024-12-10 23:49] LABS: Hemoglobin 7.7 g/dL (12.0-16.0)
--- NOTE | 2024-12-10 23:51 | PC.NURSE ---
called pharmacy to verify meds
--- NOTE | 2024-12-10 23:57 | PD.RESHP ---
Documentation for date of: 12/10/24 [facility] History of Present Illness Chief complaint: Left flank pain History of present illness: 44-year-old female with past medical history of insulin-dependent type 2 diabetes, hypertension, GERD, history of valley fever untreated presented to the ED on 12/10 with episode of left flank pain, nausea/vomiting and chills. Patient states that the chills started roughly an hour ago but that she has been having progressively worsening left flank pain radiating to her back. Patient denies having any dysuria but does state that she has been having lilia hematuria for several days. Patient denies having any fevers but she does state that she has been having chills. Patient also complains of suprapubic pain and mentions that she feels pain near her ovaries. Patient has not seen PCP regarding the symptoms but she was seen several weeks ago for GERD like symptoms and was given medications. Patient otherwise denies having any concerning symptoms such as chest pain, dizziness, shortness of breath. Medical history: As stated above Surgical history: x 1 Allergies: NKDA Medications: Pending med rec Family history: Noncontributory Social history: Patient lives in [place] with boyfriend, denies any tobacco, alcohol or illicit drug use. ROS: All 12 systems assessed and the patient denies unless otherwise stated in HPI In the ED, patient presented in hypertensive emergency with a blood pressure 187/83 which is now increased to 210/108, heart rate of 76, respiratory rate of 18, afebrile satting 98 on room air. Pertinent lab findings included WBC of 9, hemoglobin 7.9, potassium of 5.4, BUN of 31, creatinine 3.9, EGFR of 14, magnesium 1.6, troponin less than 0.02, BNP of 235, urinalysis shows hematuria and mild pyuria but no bacteria. Chest x-ray shows mild prominence of ventricles along with opacity in the right base concerning for pulmonary mass, EKG shows sinus rhythm without any concerning ST changes and CT abdomen pelvis shows a thick-walled cavitary lesion in the right middle lobe and a 22 mm pulmonary nodule in the anterior right lower lobe, numerous bilateral nonobstructing renal calculi, moderate bilateral hydronephrosis without calculi and cystitis. Patient will be admitted for hypertensive emergency requiring close monitoring along with acute renal failure requiring urology and nephrology consultation and IV antibiotics for cystitis Exam Vital Signs Temp Pulse Resp BP Pulse Ox O2 Del Method 98.5 F 74 16 210/108 H 100 Room Air 12/10/24 22:36 12/10/24 23:04 12/10/24 22:36 12/10/24 23:04 12/10/24 22:36 12/10/24 22:36 Narrative Exam Physical Exam: GENERAL: Awake, trembling, answering questions appropriately, appears stated age, obese HEENT: NC/AT. Moist mucosa. PERRLA/EOMI. CARDIO: Heart RRR, no obvious murmurs, no JVD. PULM: No coughing or visible SOB. Lungs CTA B/L. GI: Abdomen soft, distended with tenderness to palpation in left flank region, CVA tenderness but no guarding or rebound tenderness noted. [place]gmi apparent SKIN/MSK/EXT: Non-pitting edema bilateral lower extremities. No wounds/discoloration/rashes/amputations. +Pedal pulses present B/L. NEURO: Oriented x3, Moves extremities x4, no focal neurologic deficits noted Results: Labs 12/10/24 23:20 12/10/24 17:10 Labs: Short CBC 12/10/24 12/10/24 Range/Units 17:10 23:20 WBC 9.0 (3.6-11.0) Thou/mm3 Hgb 7.9 L 7.7 L (12.0-16.0) g/dL Hct 24.2 L 24.0 L (36.0-46.0) % Plt Count 325 (140-440) Thou/mm3 BMP 12/10/24 17:10 Sodium 138 Potassium 5.4 H Chloride 108 H Carbon Dioxide 19.6 L BUN 31 H Creatinine 3.9 H Glucose 207 H Calcium 8.6 Cardiac Enzymes 12/10/24 Range/Units 17:10 Troponin I < 0.002 (0.0-0.045) ng/mL Liver Function 12/10/24 Range/Units 17:10 Total Bilirubin 0.2 L (0.3-1.2) mg/dL AST 13 (0-34) U/L ALT 8 L (10-49) U/L Alkaline Phosphatase 94 (46-116) U/L Albumin 4.2 (3.5-5.0) gm/dL Urine 12/10/24 Range/Units 17:30 Urine Color Colorless A (Lt Yel-Yel) Urine Clarity Clear (Clear/Hazy) Urine pH 6.5 (5.0-7.0) Ur Specific [place] 1.012 (1.001-1.035) Urine Protein 2+ A (Neg - Trace) Urine Glucose (UA) Trace (Negative) Quality Measures Quality Measures none Medications Home Medications and Allergies Home Medications ?Medication ?Instructions ?Recorded ?Confirmed ?Type blood sugar diagnostic (Accu-Chek 12/11/24 12/11/24 History Guide test strips) buspirone 10 mg tablet 10 mg PO HS 12/11/24 12/11/24 History insulin glargine-yfgn 100 unit/mL 30 unit subcut QDAY 12/11/24 12/11/24 History (3 mL) subcutaneous pen (Semglee (insulin glargine-yfgn) Pen) insulin lispro 100 unit/mL 5 unit subcut TID 12/11/24 12/11/24 History subcutaneous pen lancets (Accu-Chek Softclix 12/11/24 12/11/24 History Lancets) losartan 100 mg tablet 100 mg PO QDAY 12/11/24 12/11/24 History meclizine 25 mg chewable tablet 25 mg PO QDAY 12/11/24 12/11/24 History metoclopramide HCl 10 mg tablet 10 mg PO QDAY 12/11/24 12/11/24 History naproxen 500 mg tablet 500 mg PO Q12H PRN pain 12/11/24 12/11/24 History omeprazole 40 mg capsule,delayed 40 mg PO QDAY 12/11/24 12/11/24 History release pen needle, diabetic 31 gauge x 12/11/24 12/11/24 History 1/4 (TRUEplus Pen Needle) sumatriptan succinate 50 mg tablet 50 mg PO QDAY 12/11/24 12/11/24 History Allergies Allergy/AdvReac Type Severity Reaction Status Date / Time No Known Allergies Allergy Verified 12/10/24 16:47 Visit Medications Acetaminophen (Acetaminophen 325 Mg Tablet) 650 mg PO Q6H PRN PRN Reason: PAIN SCALE 1-3 (mild Stop: 01/09/25 23:47 Dextrose (Dextrose 50%-Water Inj 50 Ml Syringe) 25 ml IV Q15MIN PRN PRN Reason: BG 50-70 responsive npo pt Stop: 01/09/25 23:50 Dextrose (Dextrose 50%-Water Inj 50 Ml Syringe) 50 ml IV Q15MIN PRN PRN Reason: BG <50 OR BG <70 & pt unresponsive Stop: 01/09/25 23:50 Glucagon (Glucagon Inj 1 Mg Vial) 1 mg IM Q15MIN PRN PRN Reason: BG <70, and no IV access Sodium Chloride (Ns) 1,000 mls @ 999 mls/hr IV .Q1H1M ONE Stop: 12/11/24 00:05 Sodium Chloride (Ns) 1,000 mls @ 75 mls/hr IV .[id number] CLEMENTINE Stop: 01/09/25 23:44 Ceftriaxone Sodium/Dextrose (Rocephin/D5w 1gm Iv Premix) 1 gm in 50 mls @ 100 mls/hr IV QDAY CLEMENTINE Stop: 12/17/24 23:50 Magnesium Sulfate (Magnesium Sulfate Ivpb) 4 gm in 50 mls @ 12.5 mls/hr IV X1 ONE Stop: 12/11/24 03:52 Insulin Glargine (Insulin Glargine (Lantus) 5 Unit/0.05 Ml (Per 5 Units)) 15 unit SC [facility] Stop: 01/10/25 20:59 Insulin Human Lispro (Insulin Lispro (Admelog) 1 Unit/0.01 Ml Unit) 0 unit SC [facility]; Protocol Stop: 01/10/25 07:29 Insulin Human Regular (Insulin Hum Regular 1 Unit/0.01 Ml (Per Unit)) 5 unit IV X1 ONE Stop: 12/10/24 23:54 Ondansetron HCl (Ondansetron Inj 2 Mg/Ml Inj 2 Ml) 4 mg IVP Q6H PRN; Protocol PRN Reason: NAUSEA OR VOMITING Stop: 01/09/25 23:47 Sennosides (Senna Tablet) 1 tab PO QDAY [facility]; Protocol Stop: 01/10/25 08:59 Discontinued Medications Furosemide (Furosemide Inj 10 Mg/Ml Vial 2 Ml) 20 mg IVP X1 ONE Stop: 12/10/24 23:11 Sodium Chloride (Ns) 250 mls @ 999 mls/hr IV .Q16M ONE Stop: 12/10/24 20:11 Last Infusion: 12/10/24 23:09 Dose: Infused Ceftriaxone Sodium/Dextrose (Rocephin/D5w 1gm Iv Premix) 1 gm in 50 mls @ 100 mls/hr IV X1 ONE Stop: 12/10/24 23:36 Labetalol HCl (Labetalol Inj 5 Mg/Ml Vial 20 Ml) 10 mg IVP X1 ONE Stop: 12/10/24 22:59 Last Admin: 12/10/24 23:04 Dose: 10 mg Ondansetron HCl (Ondansetron Odt 4 Mg Tabrap) 4 mg PO X1 ONE; Protocol Stop: 12/10/24 19:57 Last Admin: 12/10/24 20:55 Dose: 4 mg Assessment & Plan Plan 44-year-old female with past medical history of insulin-dependent type 2 diabetes, hypertension, GERD, history of valley fever untreated presented to the ED on 12/10 with episode of left flank pain, nausea/vomiting and chills will be admitted for hypertensive emergency requiring close monitoring along with acute renal failure requiring urology and nephrology consultation and IV antibiotics for cystitis #Cystitis #Complicated UTI, nephrolithiasis #Hematuria #Bilateral hydronephrosis On exam, patient has left flank flank with CVA tenderness CT abdomen pelvis shows a thick-walled cavitary lesion in the right middle lobe and a 22 mm pulmonary nodule in the anterior right lower lobe, numerous bilateral nonobstructing renal calculi, moderate bilateral hydronephrosis without calculi and cystitis Plan: Start IV ceftriaxone 1 g daily Urology consulted, appreciate recommendations #Acute renal failure Likely secondary to acute tubular necrosis versus worsening diabetic nephropathy versus obstructive uropathy or prerenal azotemia Patient has been having nausea/vomiting but does not seem dehydrated or hypovolemic at this time Kidney failure likely secondary to hypertensive emergency as noted by elevated systolic blood pressure Patient is also having hematuria, UA shows +3 blood and mild pyuria CT findings as above Plan: Treated hyperkalemia with IV insulin plus D50 Gentle IVF resuscitation Nephrology consulted, appreciate recommendations Avoid nephrotoxic agents Renally dose medications Replete electrolytes as needed and follow-up with morning labs #Hypertensive emergency #Hypertension Patient has significant history of hypertension on home antihypertensives Presenting to the ED with acute renal failure and elevated systolic pressure in the 200s Plan: As needed IV hydralazine, permissive hypertension with a goal reduction of 25% within the next 24 hours Restart home antihypertensives when appropriate #Insulin-dependent type 2 diabetes Last A1c of 11.1 on June 2024 Patient apparently takes 30 units of long-acting insulin twice a day Plan: Insulin glargine 15 units at bedtime Sliding scale Follow-up on morning A1c #GERD Chronic medical problems: All pertinent to the following presentation Plan: Restart home medications when med rec completed Health Maintenance: Lines: PIV Diet: Renal and carb consistent low Bowel: Senna GI prophylaxis: Not needed DVT prophylaxis: SCD Dispo: Nephrology neurology recommendations, IV antibiotics for cystitis Code: Full Patient seen and assessed with attending Dr. Tyree Patel, DO PGY-2 Internal Medicine - GME Attending Provider Attestation/Addendum I reviewed labs, imaging, EKG, home medications and prior available records. Face to face evaluation was performed by me. I have personally examined the patient and discussed assessment and plan with the IM team. I reviewed the resident note and agree with the plan with exceptions as below. Acute UTI/cystitis Left flank pain Nausea and vomiting Hematuria SAPPHIRE Uncontrolled hypertension/hypertensive urgency Nephrolithiasis Lung cavitary lesion, old in the setting of history of valley fever status post Patient's symptoms are all urological likely due to acute UTI versus nephrolithiasis She does have nephrolithiasis on CT although all nonobstructive She does have evidence of bilateral hydronephrosis. Suspect vesicoureteral reflux which can contribute to her likely UTI She does have significant kidney injury with elevated creatinine from baseline Start IV ceftriaxone Follow-up urine culture IV fluids Consult urology given the nephrolithiasis and possibility of vesicoureteral reflux and hydronephrosis Consulted nephrology given the SAPPHIRE Monitor kidney function and avoid nephrotoxins
[2024-12-11] VITALS (17 sets, daily range): BP systolic 141–200; BP diastolic 72–94; PULSE 69–91; RESP 15–20; TEMP 36.2–37.3; O2SAT 94–100; BMI 35.4; BMI 37.5
[2024-12-11] MEDS: SODIUM CHLORIDE 0.9% 1000 ML 1,000 ML 999 ML IV (00:23)
--- NOTE | 2024-12-11 00:36 | PC.NURSE ---
per dr. gomes give insulin with amp D5 bedside glucose 101
--- NOTE | 2024-12-11 00:39 | PC.NURSE ---
called house sup for mag
[2024-12-11] MEDS: hydrALAZINE INJ 20 MG/ML VIAL 10 MG IVP (00:40)
[2024-12-11] MEDS: FUROSEMIDE INJ 10 MG/ML VIAL 2 ML 20 MG IVP (00:41)
[2024-12-11] MEDS: cefTRIAXone/D5w 1gm IV premix 1 GM/50 ML BAG IV (00:41)
[2024-12-11] MEDS: SODIUM CHLORIDE 0.9% 1000 ML 1,000 ML 75 ML IV ×2 (00:42→15:10)
[2024-12-11] MEDS: INSULIN HUM REGULAR 1 UNIT/0.01 ML (PER UNIT) 5 UNIT IV ×2 (01:00→15:03)
[2024-12-11] MEDS: DEXTROSE 50%-WATER INJ 50 ML SYRINGE IVP ×2 (01:00→15:01)
[2024-12-11] MEDS: Magnesium Sulfate 4 GM Ivpb 4 GM/50 ML BAG IV (01:01)
[2024-12-11] MEDS: ONDANSETRON INJ 2 MG/ML INJ 2 ML 4 MG IVP (01:17)
[2024-12-11 06:07] LABS: Basophils # (Auto) 0.1 Thou/mm3 (0.0-0.2); Basophils % (Auto) 1 % (0-2.5); Eosinophils # (Auto) 0.4 Thou/mm3 (0.0-0.5); Eosinophils % (Auto) 4 % (0-10); Hematocrit 25.0 % (36.0-46.0); Immature Granulocytes Auto 0.04 Thou/mm3 (0.00-0.00); Lymphocytes # (Auto) 2.1 Thou/mm3 (1.0-4.8); Lymphocytes % (Auto) 21 % (10-50); Mean Corpuscular HGB Conc 31.6 g/dl (31.0-37.0); Mean Corpuscular Hemoglobin 25.1 pg (25.0-35.0); Mean Corpuscular Volume 79 fL (80-100); Monocytes # (Auto) 0.7 Thou/mm3 (0.0-0.8); Monocytes % (Auto) 7 % (0-12); Neutrophils # (Auto) 6.9 Thou/mm3 (1.8-7.7); Neutrophils % (Auto) 68 % (37-80); Nucleated Red Blood Cell # 0.00 Thou/mm3 (0.00-0.00); Nucleated Red Blood Cell % 0 /100 WBC (0); Platelet Count 307 Thou/mm3 (140-440); RDW Standard Deviation 44.8 fL (36.4-46.3); Red Blood Count 3.15 Miln/mm3 (4.00-5.20); White Blood Count 10.1 Thou/mm3 (3.6-11.0)
[2024-12-11 06:16] LABS: Hemoglobin 7.9 g/dL (12.0-16.0)
[2024-12-11 06:55] LABS: Alanine Aminotransferase 7 U/L (10-49); Albumin, Serum 3.9 gm/dL (3.5-5.0); Albumin/Globulin Ratio 1.4 (1.2-2.2); Alkaline Phosphatase 85 U/L (46-116); Anion Gap 11 (7-16); Aspartate Amino Transferase 13 U/L (0-34); BUN/Creatinine Ratio 8 Ratio (12-20); Bilirubin,Total 0.3 mg/dL (0.3-1.2); Blood Urea Nitrogen 29 mg/dL (9-23); Calcium 8.4 mg/dL (8.3-10.6); Calcium (Corrected) 8.5 mg/dL (8.5-10.1); Carbon Dioxide 17.0 mMol/L (20.0-31.0); Cardiac Risk Estimate 6.0 RATIO (3.7-5.6); Chloride 113 mMol/L (98-107); Cholesterol 156 mg/dL (132-200); Creatinine (Component) 3.8 mg/dL (0.6-1.3); Estimated Creatinine Clearance 19.9 mL/min (>60); Globulin 2.8 gm/dL (2.3-3.5); Glucose 87 mg/dL (74-106); Glucose Estimated Average 183 mg/dL (80-131); HDL Cholesterol 26 mg/dL (40-60); Hemoglobin A1C 8.0 % Hgb (4.8-6.0); LDL Cholesterol,Calculated 93 mg/dL (0-130); Osmolality,Calculated 286 (275-295); Potassium 5.2 mMol/L (3.4-5.1); Sodium 141 mMol/L (136-145); Total Protein 6.7 gm/dL (5.7-8.2); Triglycerides 187 mg/dL (30-150); eGFR 15 See Note
[2024-12-11] MEDS: ACETAMINOPHEN 325 MG TABLET 650 MG PO (08:00)
[2024-12-11] MEDS: PANTOPRAZOLE 20 MG TABLET 40 MG PO (08:18)
--- NOTE | 2024-12-11 09:08 | XR_ITS ---
Examination: Retroperitoneal ultrasound, complete Technique: Multiple high resolution grayscale images of the retroperitoneum obtained, including kidneys and bladder. Exam date and time:December 11, 2024 1027 hours INDICATIONS: Pelvic pain beginning one month ago, diagnosis urinary tract infections. FINDINGS: Right kidney 11.2 cm renal cortex 2.6 cm Left kidney 13.3 cm cortex 2.5 cm Moderate bilateral hydronephrosis No renal calculi Bladder prevoid volume 522 cc unable to void IMPRESSION: Moderate bilateral hydronephrosis
[2024-12-11 09:26] LABS: Immature Reticulocyte Fraction 12.3 % (3.0-15.9); Reticulocyte % (Auto) 1.4 % (0.5-1.5); Reticulocyte Absolute Auto 43.0 Biln/L (25.0-75.0); Reticulocyte Hgb Content 27.4 pg (28.0-35.0)
[2024-12-11 09:34] LABS: LDH (Lactate Dehydrogenase) 212 U/L (120-246)
[2024-12-11 09:37] LABS: Ferritin 13 ng/mL (7.3-270.7); Iron 18 mcg/dL (50-170); Percent Iron Saturation 5 % (20-55); Total Iron Binding Capacity 301 mcg/dL (250-425); Unsaturated Iron Binding 283 (225-295)
[2024-12-11 09:50] LABS: Lactate (Lactic Acid) 0.9 mMol/L (0.4-2.0)
[2024-12-11] MEDS: cefTRIAXone/D5w 2gm 2 GM/50 ML BAG IV (10:59)
[2024-12-11 11:12] LABS: Albumin, Serum 3.9 gm/dL (3.5-5.0); Anion Gap 9 (7-16); BUN/Creatinine Ratio 8 Ratio (12-20); Blood Urea Nitrogen 31 mg/dL (9-23); Calcium 8.3 mg/dL (8.3-10.6); Calcium (Corrected) 8.4 mg/dL (8.5-10.1); Carbon Dioxide 18.3 mMol/L (20.0-31.0); Chloride 113 mMol/L (98-107); Creatinine (Component) 3.8 mg/dL (0.6-1.3); Estimated Creatinine Clearance 20.0 mL/min (>60); Glucose 116 mg/dL (74-106); Osmolality,Calculated 286 (275-295); Phosphorous 4.6 mg/dL (2.4-5.1); Potassium 5.5 mMol/L (3.4-5.1); Sodium 140 mMol/L (136-145); eGFR 15 See Note
--- NOTE | 2024-12-11 11:43 | ESCONSULT_ITS ---
HPI Data of Consult Consult date: 12/11/24 Requesting Physician: Charly Clements MD Admitting Provider: Charly Clements MD Attending Provider: Charly Clements MD Primary Care Provider: Stan Cedillo MD Consult Narrative Reason for consult: Acute renal failure History of present illness: Ms. Cedillo is a 44-year-old female with past medical history of insulin- dependent type 2 diabetes, hypertension, GERD, history of valley fever untreated presented to the ED on 12/10 with episode of left flank pain, nausea/vomiting and chills. Patient states that the chills started roughly an hour ago but that she has been having progressively worsening left flank pain radiating to her back. Patient denies having any dysuria but does state that she has been having lilia hematuria for several days. Patient denies having any fevers but she does state that she has been having chills. Patient also complains of suprapubic pain and mentions that she feels pain near her ovaries. Patient has not seen PCP regarding the symptoms but she was seen several weeks ago for GERD like symptoms and was given medications. Patient otherwise denies having any concerning symptoms such as chest pain, dizziness, shortness of breath. In the ED, patient presented in hypertensive emergency with a blood pressure 187/83, other vitals wnl. Pertinent lab findings included WBC of 9, hemoglobin 7.9, potassium of 5.4, BUN of 31, creatinine 3.9, EGFR of 14, magnesium 1.6, troponin less than 0.02, BNP of 235, urinalysis shows hematuria and mild pyuria but no bacteria. Chest x-ray shows mild prominence of ventricles along with opacity in the right base concerning for pulmonary mass, EKG shows sinus rhythm without any concerning ST changes and CT abdomen pelvis shows a thick-walled cavitary lesion in the right middle lobe and a 22 mm pulmonary nodule in the anterior right lower lobe, numerous bilateral nonobstructing renal calculi, moderate bilateral hydronephrosis without calculi and cystitis. Patient will be admitted for hypertensive emergency requiring close monitoring along with acute renal failure requiring urology and nephrology consultation and IV antibiotics for cystitis Upon seeing the patient currently, she is on Mg Sulfate, Ceftriaxone, Carvedilol 6.25 mg, and maintenance IV fluids with a slightly improved blood pressure of 168/88 with the rest of vitals wnl. Patient states she is currently feeling much better now. States that she still has some nausea, L flank pain radiating to back and some dizziness when she stands up for too long. Patient states she has noticed blood in her urine today and ever since March. Patient endorses having bowel movements. Patient denies fever, headache, chest pain, shortness of breath, vomiting. cc:: cc: Charly Clements MD Review of Systems Review of Systems Narrative Review of Systems: Constitutional Symptoms: Patient in no acute distress, laying down in bed HEENT: Denies eye itching auditory symptoms, denies congestion, sore throat, oral problems Cardiovascular: Patient denies any chest pain, palpitations, or syncope. Respiratory: Denies shortness of breath or dyspnea Gastrointestinal: Endorses L flank pain radiating to back; endorses nausea Genitourinary: endorses hematuria Musculoskeletal: No joint pain or problems moving any joints/limbs. Integumentary: No rashes or itchiness Neurological: Patient endorses dizziness upon prolonged standing; denies any headaches or neurological disturbances. Psychiatric: Appropriate mood and affect Past Medical History Past Medical History NEUROLOGIC: Negative Neurological Disorders, Cerebrovascular Accident, Transient Ischemic Attacks (TIA) or Seizures CARDIAC: Positive Cardiac Disorders and Hypertension; Negative Myocardial Infarction, Hypercholesterolemia or Congestive Heart Failure RESPIRATORY: Negative Chronic Obstructive Pulmonary Disease (COPD) or Asthma GASTROINTESTINAL: Negative Gastrointestinal Disorders, Hepatitis, Gastrointestinal Bleed, Colorectal Cancer, Hemorrhoids or Gastroesophageal Reflux Disease GENITOURINARY: Negative Genitourinary Disorders, Renal Disease, Kidney Stones or Prostate Cancer REPRODUCTIVE: Positive Previous Pregnancies; Negative Breast Cancer, Pelvic Inflammatory Disease or Testicular Cancer MUSCULOSKELETAL: Negative Musculoskeletal Disorders, Bone Cancer or Arthritis ENDOCRINE: Positive Diabetes Mellitus Type 2; Negative Endocrine Disorders, Diabetes Mellitus Type 1, Hyperthyroidism or Hypothyroidism HEMATOLOGIC: Negative Blood Disorders, Anemia or Sickle Cell Disease PSYCHO/SOCIAL: Positive Anxiety; Negative Recreational Drug Use or Depression OTHER HISTORY: Positive Blood Transfusions, Blood Transfusion Reaction and Cancer; Negative Autoimmune Disease, Anesthesia Reactions, Organ Transplant, Chemotherapy, Radiation Therapy, Hyperbaric Therapy, MRSA, VRSA, Vancomycin- Resistant Enterococci, Human Immunodeficiency Virus (HIV), Chicken Pox, Measles, Mumps, Rubella ([place] Measles), Pertussis, Clostridium Difficile, Breast Cancer, Cervical Cancer, Colorectal Cancer, Lung Cancer, Ovarian Cancer, Prostate Cancer or Testicular Cancer Family History FAMILY HISTORY: Positive Family Cardiac Disorders; Negative Family Psychiatric Problems, Family Respiratory Disorders, Family Gastrointestinal Problems, Family Cancer, Family Surgery or Family Anesthesia Reaction Surgical History SURGICAL: Positive Section; Negative Organ Transplant Social History SMOKING STATUS: Never smoker SUBSTANCE USE: does not use Exam Vital Signs Temp Pulse Resp BP Pulse Ox O2 Del Method 98.7 F 79 15 173/82 H 94 L Room Air 12/11/24 07:52 12/11/24 10:20 12/11/24 07:52 12/11/24 10:20 12/11/24 07:52 12/11/24 01:12 Narrative Exam GENERAL: a&o x3, no acute distress, resting in bed HEENT: NC/AT. Moist mucosa. PERRLA/EOMI. CARDIO: Heart RRR, no obvious murmurs, no JVD. PULM: Lungs CTA B/L, no resp distress ABD: soft, distended with no abdominal tenderness; tenderness on L flank SKIN: Non-pitting edema bilateral lower extremities. No wounds/discoloration/rashes/amputations. +Pedal pulses present B/L. MSK: No joint swelling or pain/tenderness noted. Back tenderness EXT: upper and lower extremities atraumatic in appearance, able to move all 4 extremities. NEURO: no focal neurologic deficits noted Results Labs 12/11/24 04:54 12/11/24 17:24 Labs: Short CBC 12/10/24 12/10/24 12/11/24 Range/Units 17:10 23:20 04:54 WBC 9.0 10.1 (3.6-11.0) Thou/mm3 Hgb 7.9 L 7.7 L 7.9 L (12.0-16.0) g/dL Hct 24.2 L 24.0 L 25.0 L (36.0-46.0) % Plt Count 325 307 (140-440) Thou/mm3 BMP 12/10/24 12/11/24 12/11/24 17:10 04:54 09:30 Sodium 138 141 140 Potassium 5.4 H 5.2 H 5.5 H Chloride 108 H 113 H 113 H Carbon Dioxide 19.6 L 17.0 L 18.3 L BUN 31 H 29 H 31 H Creatinine 3.9 H 3.8 H 3.8 H Glucose 207 H 87 D 116 H Calcium 8.6 8.4 8.3 Cardiac Enzymes 12/10/24 Range/Units 17:10 Troponin I < 0.002 (0.0-0.045) ng/mL Liver Function 12/10/24 12/11/24 12/11/24 Range/Units 17:10 04:54 09:30 Total Bilirubin 0.2 L 0.3 (0.3-1.2) mg/dL AST 13 13 (0-34) U/L ALT 8 L 7 L (10-49) U/L Alkaline Phosphatase 94 85 (46-116) U/L Albumin 4.2 3.9 3.9 (3.5-5.0) gm/dL Urine 12/10/24 Range/Units 17:30 Urine Color Colorless A (Lt Yel-Yel) Urine Clarity Clear (Clear/Hazy) Urine pH 6.5 (5.0-7.0) Ur Specific [place] 1.012 (1.001-1.035) Urine Protein 2+ A (Neg - Trace) Urine Glucose (UA) Trace (Negative) Quality Measures Quality Measures VTE prophylaxis Medications Home Medications and Allergies Home Medications ?Medication ?Instructions ?Recorded ?Confirmed ?Type blood sugar diagnostic (Accu-Chek 12/11/24 12/11/24 H istory Guide test strips) buspirone 10 mg tablet 10 mg PO HS 12/11/24 5 History insulin glargine-yfgn 100 unit/mL 30 unit subcut QDAY 12/11/24 12/11/24 History (3 mL) subcutaneous pen (Semglee (insulin glargine-yfgn) Pen) insulin lispro 100 unit/mL 5 unit subcut TID 12/11/24 12/11/24 History subcutaneous pen lancets (Accu-Chek Softclix 12/11/24 12/11/24 History Lancets) losartan 100 mg tablet 100 mg PO QDAY 12/11/2411/25 History meclizine 25 mg chewable tablet 25 mg PO QDAY 12/11/24 12/11/24 History metoclopramide HCl 10 mg tablet 10 mg PO QDAY 12/11/24 12/11/24 History naproxen 500 mg tablet 500 mg PO Q12H PRN pain 11/2512/11/24 History omeprazole 40 mg capsule,delayed 40 mg PO QDAY 5 12/11/24 History release pen needle, diabetic 31 gauge x 12/11/24 12/11/24 His tory 1/4 (TRUEplus Pen Needle) sumatriptan succinate 50 mg tablet 50 mg PO QDAY 12/1112/11/24 History Allergies Allergy/AdvReac Type Severity Reaction Status Date / Time No Known Allergies Allergy Verified 12/10/24 16:47 Visit Medications Acetaminophen (Acetaminophen 325 Mg Tablet) 650 mg PO Q6H PRN PRN Reason: PAIN SCALE 1-3 (mild Stop: 01/09/25 23:47 Last Admin: 12/11/24 08:00 Dose: 650 mg Amlodipine Besylate (Amlodipine Besylate 5 Mg Tablet) 10 mg PO QDAY [facility] Stop: 01/11/25 08:59 Buspirone HCl (Buspirone Hcl 5 Mg Tablet) 10 mg PO HS [facility] Stop: 01/10/25 20:59 Carvedilol (Carvedilol 3.125 Mg Tablet) 6.25 mg PO BIDWM [facility] Stop: 01/10/25 09:14 Last Admin: 12/11/24 10:19 Dose: 6.25 mg Dextrose (Dextrose 50%-Water Inj 50 Ml Syringe) 25 ml IV Q15MIN PRN PRN Reason: BG 50-70 responsive npo pt Stop: 01/09/25 23:50 Dextrose (Dextrose 50%-Water Inj 50 Ml Syringe) 50 ml IV Q15MIN PRN PRN Reason: BG <50 OR BG <70 & pt unresponsive Stop: 01/09/25 23:50 Glucagon (Glucagon Inj 1 Mg Vial) 1 mg IM Q15MIN PRN PRN Reason: BG <70, and no IV access Sodium Chloride (Ns) 1,000 mls @ 75 mls/hr IV .[id number] [facility] Stop: 01/09/25 23:44 Last Admin: 12/11/24 00:42 Dose: 75 mls/hr Ceftriaxone Sodium/Dextrose (Rocephin/D5w 2gm) 2 gm in 50 mls @ 100 mls/hr IV QDAY [facility] Stop: 12/18/24 09:14 Last Admin: 12/11/24 10:59 Dose: 100 mls/hr Insulin Glargine (Insulin Glargine (Lantus) 5 Unit/0.05 Ml (Per 5 Units)) 15 unit SC HS [facility] Stop: 01/10/25 20:59 Insulin Human Lispro (Insulin Lispro (Admelog) 1 Unit/0.01 Ml Unit) 0 unit SC [facility]; Protocol Stop: 01/10/25 07:29 Last Admin: 12/11/24 08:20 Dose: Not Given Ondansetron HCl (Ondansetron Inj 2 Mg/Ml Inj 2 Ml) 4 mg IVP Q6H PRN; Protocol PRN Reason: NAUSEA OR VOMITING Stop: 01/09/25 23:47 Last Admin: 12/11/24 01:17 Dose: 4 mg Pantoprazole Sodium (Pantoprazole 40 Mg Tablet) 40 mg PO QDAY [facility] Stop: 01/10/25 08:59 Sennosides (Senna Tablet) 1 tab PO QDAY [facility]; Protocol Stop: 01/10/25 08:59 Last Admin: 12/11/24 08:18 Dose: 1 tab Discontinued Medications Amlodipine Besylate (Amlodipine Besylate 5 Mg Tablet) 5 mg PO QDAY [facility] Stop: 01/10/25 08:59 Last Admin: 12/11/24 08:18 Dose: 5 mg Amlodipine Besylate (Amlodipine Besylate 5 Mg Tablet) 5 mg PO X1 ONE Stop: 12/11/24 09:14 Last Admin: 12/11/24 10:20 Dose: 5 mg Dextrose (Dextrose 50%-Water Inj 50 Ml Syringe) 50 ml IVP X1 ONE Stop: 12/11/24 00:36 Last Admin: 12/11/24 01:00 Dose: 50 ml Furosemide (Furosemide Inj 10 Mg/Ml Vial 2 Ml) 20 mg IVP X1 ONE Stop: 12/10/24 23:11 Last Admin: 12/11/24 00:41 Dose: 20 mg Hydralazine HCl (Hydralazine Inj 20 Mg/Ml Vial) 10 mg IVP X1 ONE Stop: 12/11/24 00:25 Last Admin: 12/11/24 00:40 Dose: 10 mg Sodium Chloride (Ns) 250 mls @ 999 mls/hr IV .Q16M ONE Stop: 12/10/24 20:11 Last Infusion: 12/10/24 23:09 Dose: Infused Sodium Chloride (Ns) 1,000 mls @ 999 mls/hr IV .Q1H1M ONE Stop: 12/11/24 00:05 Last Infusion: 12/11/24 00:54 Dose: Infused Ceftriaxone Sodium/Dextrose (Rocephin/D5w 1gm Iv Premix) 1 gm in 50 mls @ 100 mls/hr IV X1 ONE Stop: 12/10/24 23:36 Last Admin: 12/11/24 01:11 Dose: Not Given Ceftriaxone Sodium/Dextrose (Rocephin/D5w 1gm Iv Premix) 1 gm in 50 mls @ 100 mls/hr IV QPM [facility] Stop: 12/18/24 20:59 Magnesium Sulfate (Magnesium Sulfate Ivpb) 4 gm in 50 mls @ 12.5 mls/hr IV X1 ONE Stop: 12/11/24 03:52 Last Admin: 12/11/24 01:01 Dose: 12.5 mls/hr Ceftriaxone Sodium/Dextrose (Rocephin/D5w 1gm Iv Premix) 1 gm in 50 mls @ 100 mls/hr IV X1 ONE Stop: 12/11/24 01:29 Last Infusion: 12/11/24 01:11 Dose: Infused Insulin Human Regular (Insulin Hum Regular 1 Unit/0.01 Ml (Per Unit)) 5 unit IV X1 ONE Stop: 12/10/24 23:54 Last Admin: 12/11/24 01:00 Dose: 5 unit Labetalol HCl (Labetalol Inj 5 Mg/Ml Vial 20 Ml) 10 mg IVP X1 ONE Stop: 12/10/24 22:59 Last Admin: 12/10/24 23:04 Dose: 10 mg Ondansetron HCl (Ondansetron Odt 4 Mg Tabrap) 4 mg PO X1 ONE; Protocol Stop: 12/10/24 19:57 Last Admin: 12/10/24 20:55 Dose: 4 mg Pantoprazole Sodium (Pantoprazole 20 Mg Tablet) 40 mg PO QDAY [facility] Stop: 01/10/25 08:59 Last Admin: 12/11/24 08:18 Dose: 40 mg Assessment & Plan Plan Kacy Cedillo is a 44-year-old female with past medical history of insulin-dependent type 2 diabetes, hypertension, GERD, history of valley fever untreated presented to the ED on 12/10 with episode of left flank pain, nausea/vomiting and chills will be admitted for hypertensive emergency requiring close monitoring along with acute renal failure requiring urology and nephrology consultation and IV antibiotics for cystitis #Acute kidney injury Likely multifactorial; pre-renal from hypertensive emergency; other contribution from obstructive uropathy vs ATN vs . Patient came in with chills, nausea/vomiting, however appears euvolemic on exam. Patient was also found to recently be on meclizine (was stopped), which may have contributed to urinary retention and hydronephrosis. Patient's CT AP showed numerous bilateral nonobstructing renal calculi, moderate bilateral hydronephrosis without calculi and cystitis. UA showed 3+ hematuria and mild pyuria. Plan: Gentle IVF resuscitation Outpatient kidney stone workup Avoid nephrotoxic agents Renally dose medications Replete electrolytes as needed and follow-up with morning labs #Acute urinary retention #Bilateral hydronephrosis #Cystitis #Complicated UTI, nephrolithiasis #Hematuria #Hypertensive emergency, improving #Hypertension #Insulin-dependent type 2 diabetes #GERD -managed per primary team Thank you for allowing us to take part in the care of Ms. Cedillo Plan of care discussed with attending, Dr. Miriam Martinez MD PGY-1 Attending Provider Attestation/Addendum Patient seen and examined with resident physician Dr. Martinez. note reviewed, agree with findings and recommendations. SAPPHIRE probably related to prerenal azotemia versus complicated UTI versus postrenal state. CT showed moderate hydronephrosis with the bilateral renal calculi. Patient needs a Stone workup as an outpatient. Patient might need urology evaluation. Currently on antibiotics. In the interim continue with fluids. Thank you Dr. Jane for allowing me to participate in the care of Ms. Cedillo
--- NOTE | 2024-12-11 13:15 | ESPR_ITS ---
<Statement entered by Joyce Jane MD - 12/22/24 17:55> I reviewed above note and agree with findings and plans. I have also personally examined the patient with medicine team and went over assessment and plan with medical team including international representative and resident physician. Documentation for date of: 12/11/24 Senior resident attestation: Patient evaluated and examined at the bedside, plan of care discussed with rest of the team including my attending physician, except as noted. Patient history of 44-year-old, Past medical history of diabetes type 2, hypertension, GERD, history of coccidiomycosis, cavitary lesion and pulmonary nodule, who presented to the ED with hematuria and left flank pain shaking chills and fever. Patient admitted for complicated UTI, nonobstructing nephro calculi, bilateral hydronephrosis, likely secondary to urinary retention, patient was started on IV antibiotics, blood and urine cultures were taken. #Complicated UTI?concern for pyelonephritis, hydronephrosis neurologist severe left flank tenderness and pain, high-grade fever with chills. Started on IV Zosyn, blood and urine cultures ordered. #Hydronephrosis, likely secondary to urinary retention?urine retention likely medication induced, patient recently started taking meclizine and had difficulty sleeping since starting medication. Patient also had multiple nephro calculi which are nonobstructive. Noted distended bladder on ultrasound study, unable to void, Oliva's catheter was ordered. Urology consult to Dr. Friedman is placed, pending recommendations. #Cavitary lesion, pulmonary nodule?patient had a history of coccidiomycosis, was treated with fluconazole, noted cavitary lesion with pulmonary nodule, similar findings on imaging from 2022, pulmonary nodule stable in size, cavitary lesion likely secondary to cocci. No concern for tuberculosis at this point, we will continue to observe. Quresh PGY3 Subjective Subjective Interval history: Patient was seen and examined at bedside. A.m. vitals and labs reviewed. Patient still has severe left flank pain radiating to her pack. Notes episodes of hematuria last night and this morning. Still has chills. CTAP showed numerous bilateral non-obstructing renal caliculi and moderate bilateral hydronephrosis. Patient's home medication meclizine was suspected for the causative agent for urinary retention. She started to take meclizine for vertigo everyday for 1 week prior to coming to the ED. Advised not to take meclizine. Oliva catheter was not placed because bladder scan showed 156ml at the time of examination. Exam Vital Signs Temp Pulse Resp BP Pulse Ox O2 Del Method 97.2 F 78 18 168/88 H 99 Room Air 12/11/24 12:00 12/11/24 12:00 12/11/24 12:00 12/11/24 12:00 12/11/24 12:12/11/24 12:00 Narrative Exam GENERAL: Awake, trembling, answering questions appropriately, appears stated age, obese HEENT: NC/AT. Moist mucosa. PERRLA/EOMI. CARDIO: Heart RRR, no obvious murmurs, no JVD. PULM: No coughing or visible SOB. Lungs CTA B/L. GI: Abdomen soft, distended with tenderness to palpation in left flank region, CVA tenderness but no guarding or rebound tenderness noted. [place] apparent SKIN/MSK/EXT: Non-pitting edema bilateral lower extremities. No wounds/discoloration/rashes/amputations. +Pedal pulses present B/L. NEURO: Oriented x3, Moves extremities x4, no focal neurologic deficits noted Objective Labs 12/11/24 04:54 12/11/24 17:24 Labs: Laboratory Results - last 24 hr 12/10/24 12/10/24 12/10/24 17:10 17:30 23:20 WBC 9.0 RBC 3.15 L Hgb 7.9 L 7.7 L Hct 24.2 L 24.0 L MCV 77 L MCH 25.1 MCHC 32.6 RDW Std Deviation 42.7 Plt Count 325 Neut % (Auto) 66 Lymph % (Auto) 23 [place] % (Auto) 6 Eos % (Auto) 5 Baso % (Auto) 0 Neut # (Auto) 6.0 Lymph # (Auto) 2.0 [place] # (Auto) 0.5 Eos # (Auto) 0.4 Baso # (Auto) 0.0 Immature Gran # (Auto) 0.03 H Absolute Nucleated RBC 0.00 Immature Gran % 0 Nucleated RBC % 0 Retic Count (auto) Absolute Retic Immature Retic Fraction Retic Hgb Content CHr PT 10.9 INR 1.0 APTT 29.9 Sodium 138 Potassium 5.4 H Chloride 108 H Carbon Dioxide 19.6 L Anion Gap 10 BUN 31 H Creatinine 3.9 H Estim Creat Clear Calc Not Performed. eGFR 14 L* BUN/Creatinine Ratio 8 L Glucose [address] Glu mg/dL Hemoglobin A1c Calculated Osmolality 288 Lactic Acid Calcium 8.6 Corrected Calcium 8.6 Phosphorus Magnesium 1.6 Iron TIBC Iron Saturation Unsat Iron Binding Ferritin Total Bilirubin 0.2 L AST 13 ALT 8 L Alkaline Phosphatase 94 Lactate Dehydrogenase Troponin I < 0.002 B-Natriuretic Peptide 235 H Total Protein 7.1 Albumin 4.2 Globulin 2.9 Albumin/Globulin Ratio 1.4 Triglycerides Cholesterol LDL Cholesterol, Calc HDL Cholesterol Cholesterol/HDL Ratio Ur Collection Type Clean Catch Urine Color Colorless A Urine Clarity Clear Urine pH 6.5 Ur Specific [place] 1.012 Urine Protein 2+ A Urine Glucose (UA) Trace Urine Ketones Negative Urine Blood 3+ A Urine Nitrite Negative Urine Bilirubin Negative Urine Urobilinogen (Auto) Negative Ur Leukocyte Esterase Negative Urine RBC 820 H Urine WBC 13 H Ur Squamous Epith Cells 1 Urine Bacteria None Urine HCG, Qual Negative Urine Opiates Screen Negative Urine Fentanyl Screen Negative Ur Barbiturates Screen Negative U Amphetamin/Meth Scrn Negative U Benzodiazepines Scrn Negative U Cocaine Metab Screen Negative U Marijuana (THC) Screen Negative 12/11/24 12/11/24 12/11/24 04:54 09:20 09:30 WBC 10.1 RBC 3.15 L Hgb 7.9 L Hct 25.0 L MCV 79 L MCH 25.1 MCHC 31.6 RDW Std Deviation 44.8 Plt Count 307 Neut % (Auto) 68 Lymph % (Auto) 21 [place] % (Auto) 7 Eos % (Auto) 4 Baso % (Auto) 1 Neut # (Auto) 6.9 Lymph # (Auto) 2.1 [place] # (Auto) 0.7 Eos # (Auto) 0.4 Baso # (Auto) 0.1 Immature Gran # (Auto) 0.04 H Absolute Nucleated RBC 0.00 Immature Gran % 0 Nucleated RBC % 0 Retic Count (auto) 1.4 Absolute Retic 43.0 Immature Retic Fraction 12.3 Retic Hgb Content CHr 27.4 L PT INR APTT Sodium 141 140 Potassium 5.2 H 5.5 H Chloride 113 H 113 H Carbon Dioxide 17.0 L 18.3 L Anion Gap 11 9 BUN 29 H 31 H Creatinine 3.8 H 3.8 H Estim Creat Clear Calc 19.9 L 20.0 L eGFR 15 L 15 L BUN/Creatinine Ratio 8 L 8 L Glucose [address] Glu mg/dL 183 H Hemoglobin A1c 8.0 H Calculated Osmolality 286 286 Lactic Acid 0.9 Calcium 8.4 8.3 Corrected Calcium 8.5 8.4 L Phosphorus 4.6 Magnesium Iron 18 L TIBC 301 Iron Saturation 5 L Unsat Iron Binding 283 Ferritin 13 Total Bilirubin 0.3 AST 13 ALT 7 L Alkaline Phosphatase 85 Lactate Dehydrogenase 212 Troponin I B-Natriuretic Peptide Total Protein 6.7 Albumin 3.9 3.9 Globulin 2.8 Albumin/Globulin Ratio 1.4 Triglycerides 187 H Cholesterol 156 LDL Cholesterol, Calc 93 HDL Cholesterol 26 L Cholesterol/HDL Ratio 6.0 H Ur Collection Type Urine Color Urine Clarity Urine pH Ur Specific [place] Urine Protein Urine Glucose (UA) Urine Ketones Urine Blood Urine Nitrite Urine Bilirubin Urine Urobilinogen (Auto) Ur Leukocyte Esterase Urine RBC Urine WBC Ur Squamous Epith Cells Urine Bacteria Urine HCG, Qual Urine Opiates Screen Urine Fentanyl Screen Ur Barbiturates Screen U Amphetamin/Meth Scrn U Benzodiazepines Scrn U Cocaine Metab Screen U Marijuana (THC) Screen Quality Measures Quality Measures none Assessment & Plan Assessment Current Active Medications: Generic Name Dose Route Start Last Admin Trade Name Freq PRN Reason Stop Dose Admin Acetaminophen 650 mg 12/10/24 23:48 12/11/24 08:00 Acetaminophen 325 Mg Tablet PO 01/09/25 23:47 650 mg Q6H PRN Administration PAIN SCALE 1-3 (mild Amlodipine Besylate 10 mg 12/12/24 09:00 Amlodipine Besylate 5 Mg Tablet PO 01/11/25 08:59 QDAY CLEMENTINE Buspirone HCl 10 mg 12/11/24 21:00 Buspirone Hcl 5 Mg Tablet PO 01/10/25 20:59 HS CLEMENTINE Carvedilol 6.25 mg 12/11/24 09:15 12/11/24 10:19 Carvedilol 3.125 Mg Tablet PO 01/10/25 09:14 6.25 mg BIDWM CLEMENTINE Administration Dextrose 25 ml 12/10/24 23:51 Dextrose 50%-Water Inj 50 Ml Syringe IV 01/09/25 23:50 Q15MIN PRN BG 50-70 responsive npo pt Dextrose 50 ml 12/10/24 23:51 Dextrose 50%-Water Inj 50 Ml Syringe IV 01/09/25 23:50 Q15MIN PRN BG <50 OR BG <70 & pt unresponsive Glucagon 1 mg 12/10/24 23:51 Glucagon Inj 1 Mg Vial IM Q15MIN PRN BG <70, and no IV access Sodium Chloride 1,000 mls @ 75 mls/hr 12/10/24 23:45 12/11/24 00:42 Ns IV 01/09/25 23:44 75 mls/hr .[id number] CLEMENTINE Administration Ceftriaxone Sodium/Dextrose 2 gm in 50 mls @ 100 mls/hr 12/11/24 09:15 12/11/24 10:59 Rocephin/D5w 2gm IV 12/18/24 09:14 100 mls/hr QDAY CLEMENTINE Administration Insulin Glargine 15 unit 12/11/24 21:00 Insulin Glargine (Lantus) 5 Unit/0.05 Ml (Per 5 Units) SC 01/10/25 20:59 HS [facility] Insulin Human Lispro 0 unit 12/11/24 07:30 12/11/24 11:53 Insulin Lispro (Admelog) 1 Unit/0.01 Ml Unit SC 01/10/25 07:29 Not Given ACHS [facility] Protocol Ondansetron HCl 4 mg 12/10/24 23:48 12/11/24 01:17 Ondansetron Inj 2 Mg/Ml Inj 2 Ml IVP 01/09/25 23:47 4 mg Q6H PRN Administration NAUSEA OR VOMITING Protocol Pantoprazole Sodium 40 mg 12/12/24 09:00 Pantoprazole 40 Mg Tablet PO 01/10/25 08:59 QDAY [facility] Sennosides 1 tab 12/11/24 09:00 12/11/24 08:18 Senna Tablet PO 01/10/25 08:59 1 tab QDAY CLEMENTINE Administration Protocol Plan 44-year-old female with past medical history of insulin-dependent type 2 diabetes, hypertension, GERD, history of valley fever presented to the ED on 12/10 with episode of left flank pain, nausea/vomiting and chills will be admitted for hypertensive emergency requiring close monitoring along with acute renal failure requiring urology and nephrology consultation and IV antibiotics for cystitis #Acute urinary retention #Bilateral hydronephrosis #Cystitis #Complicated UTI, nephrolithiasis #Hematuria -On exam, patient has left flank flank with CVA tenderness -CT abdomen pelvis shows a thick-walled cavitary lesion in the right middle lobe and a 22 mm pulmonary nodule in the anterior right lower lobe, numerous bilateral nonobstructing renal calculi, moderate bilateral hydronephrosis without calculi and cystitis -Based on CTAP presentation, urinary retention due to intake of meclizine was suspected as patient started to take it 1wk everyday prior to coming to the hospital. Plan: -Advised to stop taking meclizine. -Started IV ceftriaxone 2g IV qd -Urology consulted, appreciate recommendations #Acute renal failure Likely secondary to acute tubular necrosis versus worsening diabetic nephropathy versus obstructive uropathy or prerenal azotemia Patient has been having nausea/vomiting but does not seem dehydrated or hypovolemic at this time Kidney failure likely secondary to hypertensive emergency as noted by elevated systolic blood pressure vs medication induced urinary retention Patient is also having hematuria, UA shows +3 blood and mild pyuria CT findings as above Plan: Treated hyperkalemia with IV insulin plus D50 Gentle IVF resuscitation Nephrology consulted, appreciate recommendations Avoid nephrotoxic agents Renally dose medications Replete electrolytes as needed and follow-up with morning labs #Hypertensive emergency, improving #Hypertension Patient has significant history of hypertension on home antihypertensives Presenting to the ED with acute renal failure and elevated systolic pressure in the 200s Plan: -Given amlodipine 5mg. Increased dose to 10mg PO tomorrow -Started Coreg 6.25mg PO bid #Insulin-dependent type 2 diabetes Last A1c of 11.1 on June 2024 Patient apparently takes 30 units of long-acting insulin twice a day Plan: Insulin glargine 15 units at bedtime Sliding scale Follow-up on morning A1c #History of Valley Fever -CTAP(03/21/2024):30 mm thick-walled cavitary lesion partially visualized right midlung,, 22 mm pulmonary nodule anterior right lower lobe -CXR(07/16/2024): Poorly defined nodular density 18 mm in the right lower lobe, -CXR (12/10/2024):Opacity right base which may represent a pulmonary mass, 19 mm -CTAP(12/10/2024): thick walled 25 mm cavitary lesion in the right middle lobe and 22mm pulmonary nodule anterior right lower lobe Plan: -Fairly stable right lung pulmonary nodule. -Will continue to monitor. #GERD Chronic medical problems: All pertinent to the following presentation Plan: Restart home medications when med rec completed Health Maintenance: Lines: PIV Diet: Renal and carb consistent low Bowel: Senna GI prophylaxis: Not needed DVT prophylaxis: SCD Dispo: Nephrology neurology recommendations, IV antibiotics for cystitis Code: Full Assessment and plan discussed with my attending physician Dr. Jane and Dr. Kim (PGY-3) Dr. Silva (PGY-1)- Internal medicine resident
--- NOTE | 2024-12-11 13:15 | PC.NURSE ---
Dr. Friedman in to see patient
[2024-12-11] MEDS: SODIUM CHLORIDE RT SOL 0.9% 3 ML NEBU INH (14:42)
[2024-12-11] MEDS: ALBUTEROL RT 2.5 MG/0.5 ML NEBU 10 MG INH (14:42)
[2024-12-11] MEDS: SOD POLYSTYRENE SULFON SUSP 15 GM/60 ML BTL PO (15:01)
--- NOTE | 2024-12-11 15:31 | PC.SS ---
Initial assessment: Patient is a 44-year old female admitted for cystitis hematuria. Patient was able to confirm demographic information. Patient assigned her sister in law, Renay Dowd as the emergency contact. Patient informs she is independent with ADL's. Patient denies home DME use. Patients PCP is Dr. Stan Cedillo at [place] [address] location in [place]. Patient pharmacy is [facility] in [place]. Patients discharge plan is to return home and indicates family will transport her home. Patient denies any current needs. D/c plan: Home Next of kin: sister in law, Renay
--- NOTE | 2024-12-11 16:37 | PC.SS ---
Rounding note: patient receiving IV abx. Possible d/c tomorrow back home.
[2024-12-11 17:55] LABS: Albumin, Serum 3.8 gm/dL (3.5-5.0); Anion Gap 10 (7-16); BUN/Creatinine Ratio 7 Ratio (12-20); Blood Urea Nitrogen 29 mg/dL (9-23); Calcium 8.4 mg/dL (8.3-10.6); Calcium (Corrected) 8.6 mg/dL (8.5-10.1); Carbon Dioxide 18.6 mMol/L (20.0-31.0); Chloride 111 mMol/L (98-107); Creatinine (Component) 4.0 mg/dL (0.6-1.3); Estimated Creatinine Clearance 19.0 mL/min (>60); Glucose 124 mg/dL (74-106); Osmolality,Calculated 286 (275-295); Phosphorous 4.5 mg/dL (2.4-5.1); Potassium 5.1 mMol/L (3.4-5.1); Sodium 140 mMol/L (136-145); eGFR 14 See Note
--- NOTE | 2024-12-11 18:55 | ESCONSULT_ITS ---
RE: [id number] LIN : 1980 DATE OF CONSULTATION: 12/11/2024 CHIEF COMPLAINT: Left flank pain. ESTABLISHED DIAGNOSES: 1. Complicated urinary tract infection. 2. Nephrolithiasis, nonobstructive stones. 3. Moderate bilateral hydronephrosis without calculi and cystitis. 4. Acute renal failure. 5. Hypertension. 6. Insulin dependent diabetes mellitus type 2. 7. Gastroesophageal reflux disease. HISTORY OF PRESENT ILLNESS: This is a 44-year-old female. She is admitted in the hospital through the emergency room. She is 8, para 6, and she has past medical history of diabetes mellitus type 2. The patient does have a history of valley fever, untreated with episode of abdominal pain, nausea, vomiting, and chills. The patient denies any history of urinary tract infection before. Recently, she has been having urinary tract infection, which have been treated with antibiotics. MEDICAL HISTORY: As stated above. SURGICAL HISTORY: 1. ALLERGIES: No know allergies. FAMILY HISTORY: Noncontributory. SOCIAL HISTORY: The patient lives in [place] with boyfriend and her boyfriend is present in the room today. Denies any tobacco, alcohol, or illicit drug use. REVIEW OF SYSTEMS: All systems assessed negative except as documented. PHYSICAL EXAMINATION: General: Condition is satisfactory, not in acute distress. The patient is answering all the questions appropriately. She has morbid obesity. HEENT: Normocephalic and atraumatic. Cardio: Regular rate and rhythm. Vital Signs: Stable, they are in HPI in EMR. VARIOUS LABS: WBC is 9.0, hemoglobin is 7.9, and BUN is 31, creatinine is 3.9. Urine is infected. ASSESSMENT: She has cystitis and has bilateral hydronephrosis as a result of ureterovesical reflux. RECOMMENDATIONS: 1. Placement of Oliva catheter and repeat ultrasound of the kidneys. 2. Urine for culture sensitivity and treat the patient's UTI according to the culture sensitivity and the patient is going to need a cystoscopic examination and complete stone workup. All above issues were discussed with the patient. I answered her questions to her satisfaction. DT: 17:31:33 TT: 18:53:00 Ref: [id number] - TID: [id number]
[2024-12-11] MEDS: INSULIN GLARGINE (Lantus) 5 UNIT/0.05 ML (PER 5 UNITS) 15 UNIT SC (20:27)
[2024-12-12] VITALS (20 sets, daily range): BP systolic 149–170; BP diastolic 62–85; PULSE 70–92; RESP 15–18; TEMP 36.4–37.2; O2SAT 97–99
[2024-12-12 06:33] LABS: Basophils # (Auto) 0.0 Thou/mm3 (0.0-0.2); Basophils % (Auto) 0 % (0-2.5); Eosinophils # (Auto) 0.4 Thou/mm3 (0.0-0.5); Eosinophils % (Auto) 4 % (0-10); Hematocrit 25.0 % (36.0-46.0); Immature Granulocytes Auto 0.03 Thou/mm3 (0.00-0.00); Lymphocytes # (Auto) 2.3 Thou/mm3 (1.0-4.8); Lymphocytes % (Auto) 23 % (10-50); Mean Corpuscular HGB Conc 32.0 g/dl (31.0-37.0); Mean Corpuscular Hemoglobin 25.6 pg (25.0-35.0); Mean Corpuscular Volume 80 fL (80-100); Monocytes # (Auto) 0.7 Thou/mm3 (0.0-0.8); Monocytes % (Auto) 7 % (0-12); Neutrophils # (Auto) 6.5 Thou/mm3 (1.8-7.7); Neutrophils % (Auto) 66 % (37-80); Nucleated Red Blood Cell # 0.00 Thou/mm3 (0.00-0.00); Nucleated Red Blood Cell % 0 /100 WBC (0); Platelet Count 327 Thou/mm3 (140-440); RDW Standard Deviation 46.0 fL (36.4-46.3); Red Blood Count 3.12 Miln/mm3 (4.00-5.20); White Blood Count 9.9 Thou/mm3 (3.6-11.0)
[2024-12-12 06:51] LABS: Hemoglobin 8.0 g/dL (12.0-16.0)
[2024-12-12 07:18] LABS: Alanine Aminotransferase 8 U/L (10-49); Albumin, Serum 4.1 gm/dL (3.5-5.0); Albumin/Globulin Ratio 1.5 (1.2-2.2); Alkaline Phosphatase 86 U/L (46-116); Anion Gap 11 (7-16); Aspartate Amino Transferase 12 U/L (0-34); BUN/Creatinine Ratio 7 Ratio (12-20); Bilirubin,Total 0.3 mg/dL (0.3-1.2); Blood Urea Nitrogen 32 mg/dL (9-23); Calcium 8.8 mg/dL (8.3-10.6); Calcium (Corrected) 8.8 mg/dL (8.5-10.1); Carbon Dioxide 18.2 mMol/L (20.0-31.0); Chloride 112 mMol/L (98-107); Creatinine (Component) 4.3 mg/dL (0.6-1.3); Estimated Creatinine Clearance 17.7 mL/min (>60); Globulin 2.8 gm/dL (2.3-3.5); Glucose 94 mg/dL (74-106); Magnesium 2.6 mg/dL (1.6-2.6); Osmolality,Calculated 288 (275-295); Phosphorous 5.2 mg/dL (2.4-5.1); Potassium 5.2 mMol/L (3.4-5.1); Sodium 141 mMol/L (136-145); Total Protein 6.9 gm/dL (5.7-8.2); eGFR 13 See Note
--- NOTE | 2024-12-12 08:03 | XR_ITS ---
Examination: Retroperitoneal ultrasound, complete Technique: Multiple high resolution grayscale images of the retroperitoneum obtained, including kidneys and bladder. Exam date and time:December 12, 2024 1019 hours INDICATIONS: Urinary tract infections beginning 3 days ago. FINDINGS: Right kidney 12.2 x 7.6 x 7.8 cm cortex 2.7 cm Left kidney 13.1 x 6.2 x 7.0 cm cortex 2.8 cm Moderate bilateral hydronephrosis Moderate renal parenchymal scar formation Bladder contracted around a Oliva catheter IMPRESSION: Moderate bilateral hydronephrosis
[2024-12-12] MEDS: CITRIC ACID/SODIUM CITR 15 ML UDC (BICITRA) 30 ML PO ×2 (08:17→20:48)
[2024-12-12] MEDS: cefTRIAXone/D5w 2gm 2 GM/50 ML BAG IV (08:17)
[2024-12-12] MEDS: PANTOPRAZOLE 40 MG TABLET PO (08:18)
--- NOTE | 2024-12-12 10:06 | PC.SS ---
Follow up note: On IV antibiotic. Neurology recommendations pending. Pt will return home upon dc.
[2024-12-12] MEDS: DEXTROSE 50%-WATER INJ 50 ML SYRINGE IVP (10:09)
[2024-12-12] MEDS: SOD POLYSTYRENE SULFON SUSP 15 GM/60 ML BTL PO (10:09)
[2024-12-12] MEDS: INSULIN HUM REGULAR 1 UNIT/0.01 ML (PER UNIT) 5 UNIT SC (10:10)
[2024-12-12 10:57] LABS: Chloride,Urine Random 76.4 mMol/L (55.0-125.0); Potassium,Urine Random 18 mMol/L (12-62); Sodium,Urine Random 86.7 mMol/L (20.0-110.0)
--- NOTE | 2024-12-12 11:00 | PD.RESPRO ---
Documentation for date of: 12/12/24 Subjective Subjective Interval history: Ms. Cedillo is a 44-year-old female with past medical history of insulin-dependent type 2 diabetes, hypertension, GERD, history of valley fever untreated presented to the ED on 12/10 with episode of left flank pain, nausea/vomiting and chills. Patient states that the chills started roughly an hour ago but that she has been having progressively worsening left flank pain radiating to her back. Patient denies having any dysuria but does state that she has been having lilia hematuria for several days. Patient denies having any fevers but she does state that she has been having chills. Patient also complains of suprapubic pain and mentions that she feels pain near her ovaries. Patient has not seen PCP regarding the symptoms but she was seen several weeks ago for GERD like symptoms and was given medications. Patient otherwise denies having any concerning symptoms such as chest pain, dizziness, shortness of breath. In the ED, patient presented in hypertensive emergency with a blood pressure 187/83, other vitals wnl. Pertinent lab findings included WBC of 9, hemoglobin 7.9, potassium of 5.4, BUN of 31, creatinine 3.9, EGFR of 14, magnesium 1.6, troponin less than 0.02, BNP of 235, urinalysis shows hematuria and mild pyuria but no bacteria. Chest x-ray shows mild prominence of ventricles along with opacity in the right base concerning for pulmonary mass, EKG shows sinus rhythm without any concerning ST changes and CT abdomen pelvis shows a thick-walled cavitary lesion in the right middle lobe and a 22 mm pulmonary nodule in the anterior right lower lobe, numerous bilateral nonobstructing renal calculi, moderate bilateral hydronephrosis without calculi and cystitis. Patient will be admitted for hypertensive emergency requiring close monitoring along with acute renal failure requiring urology and nephrology consultation and IV antibiotics for cystitis Upon seeing the patient currently, she is on Mg Sulfate, Ceftriaxone, Carvedilol 6.25 mg, and maintenance IV fluids with a slightly improved blood pressure of 168/88 with the rest of vitals wnl. Patient states she is currently feeling much better now. States that she still has some nausea, L flank pain radiating to back and some dizziness when she stands up for too long. Patient states she has noticed blood in her urine today and ever since March. Patient endorses having bowel movements. Patient denies fever, headache, chest pain, shortness of breath, vomiting. 12/12/2024 No acute overnight events. Patient was seen and examined at bedside. Patient's Cr worsened this morning to 4.3 despite making urine with urinary catheter, so want to repeat renal US to see if hydronephrosis (or other obstruction) persisted. Checking urine lytes for possible rta. Patient denies fever, headache, chest pain, shortness of breath, nausea, vomiting. Exam Vital Signs Temp Pulse Resp BP Pulse Ox O2 Del Method 97.5 F 77 16 170/85 H 99 Room Air 12/12/24 07:38 12/12/24 08:18 12/12/24 07:38 12/12/24 08:18 12/12/24 07:38 12/12/24 04:00 Narrative Exam GENERAL: a&o x3, no acute distress, resting in bed HEENT: NC/AT. Moist mucosa. PERRLA/EOMI. CARDIO: Heart RRR, no obvious murmurs, no JVD. PULM: Lungs CTA B/L, no resp distress ABD: soft, distended with no abdominal tenderness; mild tenderness on L flank SKIN: Non-pitting edema bilateral lower extremities. No wounds/discoloration/rashes/amputations. +Pedal pulses present B/L. MSK: No joint swelling or pain/tenderness noted. EXT: upper and lower extremities atraumatic in appearance, able to move all 4 extremities. NEURO: no focal neurologic deficits noted Objective Labs 12/14/24 04:20 12/14/24 04:20 Labs: Laboratory Results - last 24 hr 12/11/24 12/11/24 12/12/24 09:30 17:24 04:53 WBC 9.9 RBC 3.12 L Hgb 8.0 L Hct 25.0 L MCV 80 MCH 25.6 MCHC 32.0 RDW Std Deviation 46.0 Plt Count 327 Neut % (Auto) 66 Lymph % (Auto) 23 [place] % (Auto) 7 Eos % (Auto) 4 Baso % (Auto) 0 Neut # (Auto) 6.5 Lymph # (Auto) 2.3 [place] # (Auto) 0.7 Eos # (Auto) 0.4 Baso # (Auto) 0.0 Immature Gran # (Auto) 0.03 H Absolute Nucleated RBC 0.00 Immature Gran % 0 Nucleated RBC % 0 Sodium 140 140 141 Potassium 5.5 H 5.1 5.2 H Chloride 113 H 111 H 112 H Carbon Dioxide 18.3 L 18.6 L 18.2 L Anion Gap 9 10 11 BUN 31 H 29 H 32 H Creatinine 3.8 H 4.0 H 4.3 H* Estim Creat Clear Calc 20.0 L 19.0 L 17.7 L eGFR 15 L 14 L* 13 L* BUN/Creatinine Ratio 8 L 7 L 7 L Glucose 116 H 124 H 94 Calculated Osmolality 286 286 288 Calcium 8.3 8.4 8.8 Corrected Calcium 8.4 L 8.6 8.8 Phosphorus 4.6 4.5 5.2 H Magnesium 2.6 Total Bilirubin 0.3 AST 12 ALT 8 L Alkaline Phosphatase 86 Total Protein 6.9 Albumin 3.9 3.8 4.1 Globulin 2.8 Albumin/Globulin Ratio 1.5 Ur Random Sodium Ur Random Potassium Ur Random Chloride 12/12/24 10:26 WBC RBC Hgb Hct MCV MCH MCHC RDW Std Deviation Plt Count Neut % (Auto) Lymph % (Auto) [place] % (Auto) Eos % (Auto) Baso % (Auto) Neut # (Auto) Lymph # (Auto) [place] # (Auto) Eos # (Auto) Baso # (Auto) Immature Gran # (Auto) Absolute Nucleated RBC Immature Gran % Nucleated RBC % Sodium Potassium Chloride Carbon Dioxide Anion Gap BUN Creatinine Estim Creat Clear Calc eGFR BUN/Creatinine Ratio Glucose Calculated Osmolality Calcium Corrected Calcium Phosphorus Magnesium Total Bilirubin AST ALT Alkaline Phosphatase Total Protein Albumin Globulin Albumin/Globulin Ratio Ur Random Sodium 86.7 Ur Random Potassium 18 Ur Random Chloride 76.4 Quality Measures Quality Measures VTE prophylaxis Assessment & Plan Assessment Current Active Medications: Generic Name Dose Route Start Last Admin Trade Name Freq PRN Reason Stop Dose Admin Acetaminophen 650 mg 12/10/24 23:48 12/11/24 08:00 Acetaminophen 325 Mg Tablet PO 01/09/25 23:47 650 mg Q6H PRN Administration PAIN SCALE 1-3 (mild Buspirone HCl 10 mg 12/11/24 21:00 12/11/24 20:26 Buspirone Hcl 5 Mg Tablet PO 01/10/25 20:59 10 mg HS CLEMENTINE Administration Carvedilol 6.25 mg 12/11/24 09:15 12/12/24 08:17 Carvedilol 3.125 Mg Tablet PO 01/10/25 09:14 6.25 mg BIDWM CLEMENTINE Administration Citric Acid/Sodium Citrate 30 ml 12/12/24 09:00 12/12/24 08:17 Citric Acid/Sodium Citr 15 Ml Udc (Bicitra) PO 01/11/25 08:59 30 ml BID CLEMENTINE Administration Dextrose 25 ml 12/10/24 23:51 Dextrose 50%-Water Inj 50 Ml Syringe IV 01/09/25 23:50 Q15MIN PRN BG 50-70 responsive npo pt Dextrose 50 ml 12/10/24 23:51 Dextrose 50%-Water Inj 50 Ml Syringe IV 01/09/25 23:50 Q15MIN PRN BG <50 OR BG <70 & pt unresponsive Glucagon 1 mg 12/10/24 23:51 Glucagon Inj 1 Mg Vial IM Q15MIN PRN BG <70, and no IV access Hydralazine HCl 25 mg 12/11/24 17:10 12/12/24 05:26 Hydralazine Hcl 25 Mg Tablet PO 01/10/25 17:09 25 mg TID CLEMENTINE Administration Ceftriaxone Sodium/Dextrose 2 gm in 50 mls @ 100 mls/hr 12/11/24 09:15 12/12/24 08:17 Rocephin/D5w 2gm IV 12/18/24 09:14 100 mls/hr QDAY CLEMENTINE Administration Insulin Glargine 15 unit 12/11/24 21:00 12/11/24 20:27 Insulin Glargine (Lantus) 5 Unit/0.05 Ml (Per 5 Units) SC 01/10/25 20:59 15 unit HS CLEMENTINE Administration Insulin Human Lispro 0 unit 12/11/24 07:30 12/12/24 07:37 Insulin Lispro (Admelog) 1 Unit/0.01 Ml Unit SC 01/10/25 07:29 Not Given ACHS [facility] Protocol Nifedipine 30 mg 12/12/24 12:00 Nifedipine Xl 30 Mg Tabcr PO 01/11/25 11:59 QDAY CLEMENTINE Ondansetron HCl 4 mg 12/10/24 23:48 12/11/24 01:17 Ondansetron Inj 2 Mg/Ml Inj 2 Ml IVP 01/09/25 23:47 4 mg Q6H PRN Administration NAUSEA OR VOMITING Protocol Pantoprazole Sodium 40 mg 12/12/24 09:00 12/12/24 08:18 Pantoprazole 40 Mg Tablet PO 01/10/25 08:59 40 mg QDAY CLEMENTINE Administration Sennosides 1 tab 12/11/24 09:00 12/12/24 08:18 Senna Tablet PO 01/10/25 08:59 1 tab QDAY CLEMENTINE Administration Protocol Sodium Chloride 3 ml 12/11/24 14:16 12/11/24 14:42 Sodium Chloride Rt Katherine 0.9% 3 Ml Nebu INH 01/10/25 14:15 3 ml PRN PRN Administration SOLN Plan Kacy Cedillo is a 44-year-old female with past medical history of insulin-dependent type 2 diabetes, hypertension, GERD, history of valley fever untreated presented to the ED on 12/10 with episode of left flank pain, nausea/vomiting and chills will be admitted for hypertensive emergency requiring close monitoring along with acute renal failure requiring urology and nephrology consultation and IV antibiotics for cystitis #Acute kidney injury Likely multifactorial; pre-renal from hypertensive emergency; other contribution from obstructive uropathy vs ATN vs RTA. Patient found to have pyelonephritis given history and based upon imaging. Cr worsened this morning to 4.3 despite making urine with urinary catheter, so want to repeat renal US to see if hydronephrosis (or other obstruction) persisted. Checking urine lytes for possible rta Plan: -Repeating Renal US for obstruction -Ordered Urine electrolytes. -Continue IV maintenance fluids -Gave Bicitra 30 ml po bid -Outpatient kidney stone workup -Avoid nephrotoxic agents -Renally dose medications -Replete electrolytes as needed and follow-up with morning labs #Acute urinary retention #Bilateral hydronephrosis #Cystitis #Complicated UTI, nephrolithiasis #Hematuria #Hypertensive emergency, improving #Hypertension #Insulin-dependent type 2 diabetes #GERD -managed per primary team Thank you for allowing us to take part in the care of Ms. Cedillo Plan of care discussed with attending, Dr. Miriam Martinez MD PGY-1 Attending Provider Attestation/Addendum Patient seen and examined with resident physician Dr. Martinez. note reviewed, agree with findings and recommendations. SAPPHIRE probably related to prerenal azotemia//ischemic ATN. CT showed moderate hydronephrosis with the bilateral renal calculi. Doubt renal calculi is the cause for hydronephrosis. Patient seems to have vesicular ureteral reflux. Patient needs a Stone workup as an outpatient. Patient might need urology evaluation as outpatient. Currently on antibiotics. In the interim continue with fluids. Despite the azotemia-patient clinically do not seem to be in fluid overload. Agree with phosphorus and potassium binders. Hold off on dialysis with close monitoring of her labs and urine output. Plan of care discussed with Dr. Jane
[2024-12-12] MEDS: NIFEdipine XL 30 MG TABCR PO (12:24)
[2024-12-12] MEDS: SODIUM CHLORIDE 0.9% 1000 ML 1,000 ML 75 ML IV (13:51)
--- NOTE | 2024-12-12 14:02 | ESPR_ITS ---
<Statement entered by Joyce Jane MD - 12/23/24 07:44> I reviewed above note and agree with findings and plans. I have also personally examined the patient with medicine team and went over assessment and plan with medical team including internet cafe manager and resident physician. Documentation for date of: 12/12/24 Senior resident attestation: Patient evaluated and examined at the bedside, plan of care discussed with rest of the team including my attending physician, except as noted. Noted worsening SAPPHIRE despite Cheng catheter and relief of urinary retention, Nephrology and urology are following, no invasive intervention recommended at this point, continue to monitor urine output. Acidosis likely secondary to RTA. Quresh PGY3 Subjective Subjective Interval history: Patient was seen and examined at bedside. A.m. vitals and labs reviewed. After patient's renal ultrasound (12/11/2024) showed moderate bilateral hydronephrosis, cheng cathether was placed. Patient's repeat renal ultrasound (12/12/2024) again showed moderate bilateral hydronephrosis. Consulted with Urology, Dr. Friedman. Will continue to wait for several days and will repeat renal ultrasound to monitor her condition. Patient will do cystoscopy outpatient. Patient does not have any abdominal pain or flank pain, but still observed hematuria during bowel movement. However, her urine in cheng bag at the time was clear yellow. Denies chest pain, palpitation, shortness of breathe, headache, or dizziness. Exam Vital Signs Temp Pulse Resp BP Pulse Ox O2 Del Method 97.5 F 78 15 157/83 H 99 Nasal Cannula 12/12/24 11:44 12/12/24 13:50 12/12/24 11:44 12/12/24 13:50 12/12/24 07:38 12/12/24 11:44 Narrative Exam GENERAL: Awake, trembling, answering questions appropriately, appears stated age, obese HEENT: NC/AT. Moist mucosa. PERRLA/EOMI. CARDIO: Heart RRR, no obvious murmurs, no JVD. PULM: No coughing or visible SOB. Lungs CTA B/L. GI: Abdomen soft, No abdominal pain or flank pain on palpitation, No guarding or rebound tenderness noted. [place] apparent SKIN/MSK/EXT: Non-pitting edema bilateral lower extremities. No wounds/discoloration/rashes/amputations. +Pedal pulses present B/L. NEURO: Oriented x3, Moves extremities x4, no focal neurologic deficits noted Objective Labs 12/14/24 04:20 12/13/24 12:37 Labs: Laboratory Results - last 24 hr 12/11/24 12/12/24 12/12/24 17:24 04:53 10:26 WBC 9.9 RBC 3.12 L Hgb 8.0 L Hct 25.0 L MCV 80 MCH 25.6 MCHC 32.0 RDW Std Deviation 46.0 Plt Count 327 Neut % (Auto) 66 Lymph % (Auto) 23 [place] % (Auto) 7 Eos % (Auto) 4 Baso % (Auto) 0 Neut # (Auto) 6.5 Lymph # (Auto) 2.3 [place] # (Auto) 0.7 Eos # (Auto) 0.4 Baso # (Auto) 0.0 Immature Gran # (Auto) 0.03 H Absolute Nucleated RBC 0.00 Immature Gran % 0 Nucleated RBC % 0 Sodium 140 141 Potassium 5.1 5.2 H Chloride 111 H 112 H Carbon Dioxide 18.6 L 18.2 L Anion Gap 10 11 BUN 29 H 32 H Creatinine 4.0 H 4.3 H* Estim Creat Clear Calc 19.0 L 17.7 L eGFR 14 L* 13 L* BUN/Creatinine Ratio 7 L 7 L Glucose 124 H 94 Calculated Osmolality 286 288 Calcium 8.4 8.8 Corrected Calcium 8.6 8.8 Phosphorus 4.5 5.2 H Magnesium 2.6 Total Bilirubin 0.3 AST 12 ALT 8 L Alkaline Phosphatase 86 Total Protein 6.9 Albumin 3.8 4.1 Globulin 2.8 Albumin/Globulin Ratio 1.5 Ur Random Sodium 86.7 Ur Random Potassium 18 Ur Random Chloride 76.4 Quality Measures Quality Measures VTE prophylaxis Assessment & Plan Assessment Current Active Medications: Generic Name Dose Route Start Last Admin Trade Name Freq PRN Reason Stop Dose Admin Acetaminophen 650 mg 12/10/24 23:48 12/11/24 08:00 Acetaminophen 325 Mg Tablet PO 01/09/25 23:47 650 mg Q6H PRN Administration PAIN SCALE 1-3 (mild Buspirone HCl 10 mg 12/11/24 21:00 12/11/24 20:26 Buspirone Hcl 5 Mg Tablet PO 01/10/25 20:59 10 mg HS CLEMENTINE Administration Carvedilol 6.25 mg 12/11/24 09:15 12/12/24 08:17 Carvedilol 3.125 Mg Tablet PO 01/10/25 09:14 6.25 mg BIDWM CLEMENTINE Administration Citric Acid/Sodium Citrate 30 ml 12/12/24 09:00 12/12/24 08:17 Citric Acid/Sodium Citr 15 Ml Udc (Bicitra) PO 01/11/25 08:59 30 ml BID CLEMENTINE Administration Dextrose 25 ml 12/10/24 23:51 Dextrose 50%-Water Inj 50 Ml Syringe IV 01/09/25 23:50 Q15MIN PRN BG 50-70 responsive npo pt Dextrose 50 ml 12/10/24 23:51 Dextrose 50%-Water Inj 50 Ml Syringe IV 01/09/25 23:50 Q15MIN PRN BG <50 OR BG <70 & pt unresponsive Glucagon 1 mg 12/10/24 23:51 Glucagon Inj 1 Mg Vial IM Q15MIN PRN BG <70, and no IV access Hydralazine HCl 25 mg 12/11/24 17:10 12/12/24 13:50 Hydralazine Hcl 25 Mg Tablet PO 01/10/25 17:09 25 mg TID CLEMENTINE Administration Ceftriaxone Sodium/Dextrose 2 gm in 50 mls @ 100 mls/hr 12/11/24 09:15 12/12/24 08:17 Rocephin/D5w 2gm IV 12/18/24 09:14 100 mls/hr QDAY CLEMENTINE Administration Sodium Chloride 1,000 mls @ 75 mls/hr 12/12/24 13:27 12/12/24 13:51 Ns IV 12/13/24 02:46 75 mls/hr .[id number] ONE Administration Insulin Glargine 15 unit 12/11/24 21:00 12/11/24 20:27 Insulin Glargine (Lantus) 5 Unit/0.05 Ml (Per 5 Units) SC 01/10/25 20:59 15 unit HS CLEMENTINE Administration Insulin Human Lispro 0 unit 12/11/24 07:30 12/12/24 11:29 Insulin Lispro (Admelog) 1 Unit/0.01 Ml Unit SC 01/10/25 07:29 Not Given ACHS CLEMENTINE Protocol Nifedipine 30 mg 12/12/24 12:00 12/12/24 12:24 Nifedipine Xl 30 Mg Tabcr PO 01/11/25 11:59 30 mg QDAY CLEMENTINE Administration Ondansetron HCl 4 mg 12/10/24 23:48 12/11/24 01:17 Ondansetron Inj 2 Mg/Ml Inj 2 Ml IVP 01/09/25 23:47 4 mg Q6H PRN Administration NAUSEA OR VOMITING Protocol Pantoprazole Sodium 40 mg 12/12/24 09:00 12/12/24 08:18 Pantoprazole 40 Mg Tablet PO 01/10/25 08:59 40 mg QDAY CLEMENTINE Administration Sennosides 1 tab 12/11/24 09:00 12/12/24 08:18 Senna Tablet PO 01/10/25 08:59 1 tab QDAY CLEMENTINE Administration Protocol Sodium Chloride 3 ml 12/11/24 14:16 12/11/24 14:42 Sodium Chloride Rt Katherine 0.9% 3 Ml Nebu INH 01/10/25 14:15 3 ml PRN PRN Administration SOLN Plan 44-year-old female with past medical history of insulin-dependent type 2 diabetes, hypertension, GERD, history of valley fever presented to the ED on 12/10 with episode of left flank pain, nausea/vomiting and chills will be admitted for hypertensive emergency requiring close monitoring along with acute renal failure requiring urology and nephrology consultation and IV antibiotics for cystitis #Acute urinary retention #Bilateral hydronephrosis #Cystitis #Complicated UTI, nephrolithiasis #Hematuria -On exam, patient has left flank flank with CVA tenderness -CT abdomen pelvis shows a thick-walled cavitary lesion in the right middle lobe and a 22 mm pulmonary nodule in the anterior right lower lobe, numerous bilateral nonobstructing renal calculi, moderate bilateral hydronephrosis without calculi and cystitis -Based on CTAP presentation, urinary retention due to intake of meclizine was suspected as patient started to take it 1wk everyday prior to coming to the hospital. -Renal Ultrasound (12/11/2024): Moderate bilateral hydronephrosis -Renal Ultrasound (12/12/2024): Moderate bilateral hydronephrosis. (Post Day 1 cheng catheter) Plan: -Advised to stop taking meclizine. -Started IV ceftriaxone 2g IV qd -Consulted with Urology, Dr. Friedman. Will continue to wait for several days and will repeat renal ultrasound to monitor her condition. Patient will do cystoscopy in outpatient setting. #Acute renal failure Likely secondary to acute tubular necrosis versus worsening diabetic nephropathy versus obstructive uropathy or prerenal azotemia Patient has been having nausea/vomiting but does not seem dehydrated or hypovolemic at this time Kidney failure likely secondary to hypertensive emergency as noted by elevated systolic blood pressure vs medication induced urinary retention Patient is also having hematuria, UA shows +3 blood and mild pyuria CT findings as above Plan: Gentle IVF resuscitation Nephrology consulted, appreciate recommendations Avoid nephrotoxic agents Renally dose medications Replete electrolytes as needed and follow-up with morning labs #Hypertensive emergency, improving #Hypertension Patient has significant history of hypertension on home antihypertensives Presenting to the ED with acute renal failure and elevated systolic pressure in the 200s Plan: -Nifedipine 30mg PO qd -Coreg 6.25mg PO bid -Hydralazine 50mg PO TID #Insulin-dependent type 2 diabetes Last A1c of 11.1 on June 2024 Patient apparently takes 30 units of long-acting insulin twice a day Plan: Insulin glargine 15 units at bedtime Sliding scale Follow-up on morning A1c #History of Valley Fever -CTAP(03/21/2024):30 mm thick-walled cavitary lesion partially visualized right midlung,, 22 mm pulmonary nodule anterior right lower lobe -CXR(07/16/2024): Poorly defined nodular density 18 mm in the right lower lobe, -CXR (12/10/2024):Opacity right base which may represent a pulmonary mass, 19 mm -CTAP(12/10/2024): thick walled 25 mm cavitary lesion in the right middle lobe and 22mm pulmonary nodule anterior right lower lobe Plan: -Fairly stable right lung pulmonary nodule. -Will continue to monitor. #GERD Chronic medical problems: All pertinent to the following presentation Plan: Restart home medications when med rec completed Health Maintenance: Lines: PIV Diet: Renal and carb consistent low Bowel: Senna GI prophylaxis: Not needed DVT prophylaxis: SCD Dispo: Nephrology neurology recommendations, IV antibiotics for cystitis Code: Full Assessment and plan discussed with my attending physician Dr. Jane and Dr. Kim (PGY-3) Dr. Silva (PGY-1)- Internal medicine resident
--- NOTE | 2024-12-12 16:48 | PC.NURSE ---
Per Giovana, transport dispatch, transfer/transport changed to 1800.
[2024-12-12] MEDS: DICYCLOMINE 10 MG CAPSULE 20 MG PO (20:48)
[2024-12-12] MEDS: ACETAMINOPHEN 325 MG TABLET 650 MG PO (20:48)
[2024-12-12] MEDS: INSULIN GLARGINE (Lantus) 5 UNIT/0.05 ML (PER 5 UNITS) 15 UNIT SC (20:49)
[2024-12-13] VITALS (12 sets, daily range): BP systolic 130–159; BP diastolic 64–80; PULSE 71–89; RESP 16–19; TEMP 36.2–36.8; O2SAT 95–100
[2024-12-13 05:52] LABS: Basophils # (Auto) 0.0 Thou/mm3 (0.0-0.2); Basophils % (Auto) 1 % (0-2.5); Eosinophils # (Auto) 0.4 Thou/mm3 (0.0-0.5); Eosinophils % (Auto) 4 % (0-10); Hematocrit 22.8 % (36.0-46.0); Immature Granulocytes Auto 0.03 Thou/mm3 (0.00-0.00); Lymphocytes # (Auto) 2.0 Thou/mm3 (1.0-4.8); Lymphocytes % (Auto) 23 % (10-50); Mean Corpuscular HGB Conc 30.7 g/dl (31.0-37.0); Mean Corpuscular Hemoglobin 24.7 pg (25.0-35.0); Mean Corpuscular Volume 81 fL (80-100); Monocytes # (Auto) 0.5 Thou/mm3 (0.0-0.8); Monocytes % (Auto) 6 % (0-12); Neutrophils # (Auto) 5.8 Thou/mm3 (1.8-7.7); Neutrophils % (Auto) 66 % (37-80); Nucleated Red Blood Cell # 0.00 Thou/mm3 (0.00-0.00); Nucleated Red Blood Cell % 0 /100 WBC (0); Platelet Count 274 Thou/mm3 (140-440); RDW Standard Deviation 45.5 fL (36.4-46.3); Red Blood Count 2.83 Miln/mm3 (4.00-5.20); White Blood Count 8.7 Thou/mm3 (3.6-11.0)
[2024-12-13 06:19] LABS: Hemoglobin 7.0 g/dL (12.0-16.0)
[2024-12-13 06:47] LABS: Alanine Aminotransferase 8 U/L (10-49); Albumin, Serum 3.7 gm/dL (3.5-5.0); Albumin/Globulin Ratio 1.5 (1.2-2.2); Alkaline Phosphatase 75 U/L (46-116); Anion Gap 11 (7-16); Aspartate Amino Transferase 11 U/L (0-34); BUN/Creatinine Ratio 8 Ratio (12-20); Bilirubin,Total 0.2 mg/dL (0.3-1.2); Blood Urea Nitrogen 35 mg/dL (9-23); Calcium 8.2 mg/dL (8.3-10.6); Calcium (Corrected) 8.4 mg/dL (8.5-10.1); Carbon Dioxide 19.6 mMol/L (20.0-31.0); Chloride 111 mMol/L (98-107); Creatinine (Component) 4.6 mg/dL (0.6-1.3); Estimated Creatinine Clearance 16.4 mL/min (>60); Globulin 2.5 gm/dL (2.3-3.5); Glucose 109 mg/dL (74-106); Magnesium 1.9 mg/dL (1.6-2.6); Osmolality,Calculated 292 (275-295); Phosphorous 5.4 mg/dL (2.4-5.1); Potassium 5.2 mMol/L (3.4-5.1); Sodium 142 mMol/L (136-145); Total Protein 6.2 gm/dL (5.7-8.2); eGFR 12 See Note
--- NOTE | 2024-12-13 07:59 | ESPR_ITS ---
Documentation for date of: 12/13/24 Subjective Subjective Interval history: Ms. Cedillo is a 44-year-old female with past medical history of insulin- dependent type 2 diabetes, hypertension, GERD, history of valley fever untreated presented to the ED on 12/10 with episode of left flank pain, nausea/vomiting and chills. Patient states that the chills started roughly an hour ago but that she has been having progressively worsening left flank pain radiating to her back. Patient denies having any dysuria but does state that she has been having lilia hematuria for several days. Patient denies having any fevers but she does state that she has been having chills. Patient also complains of suprapubic pain and mentions that she feels pain near her ovaries. Patient has not seen PCP regarding the symptoms but she was seen several weeks ago for GERD like symptoms and was given medications. Patient otherwise denies having any concerning symptoms such as chest pain, dizziness, shortness of breath. In the ED, patient presented in hypertensive emergency with a blood pressure 187/83, other vitals wnl. Pertinent lab findings included WBC of 9, hemoglobin 7.9, potassium of 5.4, BUN of 31, creatinine 3.9, EGFR of 14, magnesium 1.6, troponin less than 0.02, BNP of 235, urinalysis shows hematuria and mild pyuria but no bacteria. Chest x-ray shows mild prominence of ventricles along with opacity in the right base concerning for pulmonary mass, EKG shows sinus rhythm without any concerning ST changes and CT abdomen pelvis shows a thick-walled cavitary lesion in the right middle lobe and a 22 mm pulmonary nodule in the anterior right lower lobe, numerous bilateral nonobstructing renal calculi, moderate bilateral hydronephrosis without calculi and cystitis. Patient will be admitted for hypertensive emergency requiring close monitoring along with acute renal failure requiring urology and nephrology consultation and IV antibiotics for cystitis Upon seeing the patient currently, she is on Mg Sulfate, Ceftriaxone, Carvedilol 6.25 mg, and maintenance IV fluids with a slightly improved blood pressure of 168/88 with the rest of vitals wnl. Patient states she is currently feeling much better now. States that she still has some nausea, L flank pain radiating to back and some dizziness when she stands up for too long. Patient states she has noticed blood in her urine today and ever since March. Patient endorses having bowel movements. Patient denies fever, headache, chest pain, shortness of breath, vomiting. 12/12/2024 No acute overnight events. Patient was seen and examined at bedside. Patient's Cr worsened this morning to 4.3 despite making urine with urinary catheter, so want to repeat renal US to see if hydronephrosis (or other obstruction) persisted. Checking urine lytes for possible rta. Patient denies fever, headache, chest pain, shortness of breath, nausea, vomiting. 12/13/2024 No acute overnight events. Patient was seen and examined at bedside. Patient's vitals and labs reviewed. Patient's Cr continues to worsen depsite making plenty of good urine. Patient endorses having 3/4 UTI's per year. Patient denies fever, headache, chest pain, shortness of breath, nausea, vomiting. Exam Vital Signs Temp Pulse Resp BP Pulse Ox O2 Del Method 97.8 F 74 18 130/77 95 Room Air 12/13/24 04:00 12/13/24 06:08 12/13/24 04:00 12/13/24 06:08 12/13/24 04:00 12/13/24 04:00 Narrative Exam GENERAL: a&o x3, no acute distress, resting in bed HEENT: NC/AT. Moist mucosa. PERRLA/EOMI. CARDIO: Heart RRR, no obvious murmurs, no JVD. PULM: Lungs CTA B/L, no resp distress ABD: soft, distended with no abdominal tenderness; tenderness on L flank SKIN: No edema bilateral lower extremities. No wounds/discoloration/rashes/amputations. +Pedal pulses present B/L. MSK: No joint swelling or pain/tenderness noted. EXT: upper and lower extremities atraumatic in appearance, able to move all 4 extremities. NEURO: no focal neurologic deficits noted Objective Labs 12/14/24 04:20 12/14/24 04:20 Labs: Laboratory Results - last 24 hr 12/12/24 12/13/24 10:26 04:55 WBC 8.7 RBC 2.83 L Hgb 7.0 L Hct 22.8 L MCV 81 MCH 24.7 L MCHC 30.7 L RDW Std Deviation 45.5 Plt Count 274 D Neut % (Auto) 66 Lymph % (Auto) 23 [place] % (Auto) 6 Eos % (Auto) 4 Baso % (Auto) 1 Neut # (Auto) 5.8 Lymph # (Auto) 2.0 [place] # (Auto) 0.5 Eos # (Auto) 0.4 Baso # (Auto) 0.0 Immature Gran # (Auto) 0.03 H Absolute Nucleated RBC 0.00 Immature Gran % 0 Nucleated RBC % 0 Sodium 142 Potassium 5.2 H Chloride 111 H Carbon Dioxide 19.6 L Anion Gap 11 BUN 35 H Creatinine 4.6 H* Estim Creat Clear Calc 16.4 L eGFR 12 L* BUN/Creatinine Ratio 8 L Glucose 109 H Calculated Osmolality 292 Calcium 8.2 L Corrected Calcium 8.4 L Phosphorus 5.4 H Magnesium 1.9 Total Bilirubin 0.2 L AST 11 ALT 8 L Alkaline Phosphatase 75 Total Protein 6.2 Albumin 3.7 Globulin 2.5 Albumin/Globulin Ratio 1.5 Ur Random Sodium 86.7 Ur Random Potassium 18 Ur Random Chloride 76.4 Quality Measures Quality Measures VTE prophylaxis Assessment & Plan Assessment Current Active Medications: Generic Name Dose Route Start Last Admin Trade Name Freq PRN Reason Stop Dose Admin Acetaminophen 650 mg 12/10/24 23:48 12/12/24 20:48 Acetaminophen 325 Mg Tablet PO 01/09/25 23:47 650 mg Q6H PRN Administration PAIN SCALE 1-3 (mild Buspirone HCl 10 mg 12/11/24 21:00 12/12/24 20:48 Buspirone Hcl 5 Mg Tablet PO 01/10/25 20:59 10 mg HS CLEMENTINE Administration Carvedilol 6.25 mg 12/11/24 09:15 12/12/24 16:45 Carvedilol 3.125 Mg Tablet PO 01/10/25 09:14 6.25 mg BIDWM CLEMENTINE Administration Citric Acid/Sodium Citrate 30 ml 12/12/24 09:00 12/12/24 20:48 Citric Acid/Sodium Citr 15 Ml Udc (Bicitra) PO 01/11/25 08:59 30 ml BID CLEMENTINE Administration Dextrose 25 ml 12/10/24 23:51 Dextrose 50%-Water Inj 50 Ml Syringe IV 01/09/25 23:50 Q15MIN PRN BG 50-70 responsive npo pt Dextrose 50 ml 12/10/24 23:51 Dextrose 50%-Water Inj 50 Ml Syringe IV 01/09/25 23:50 Q15MIN PRN BG <50 OR BG <70 & pt unresponsive Glucagon 1 mg 12/10/24 23:51 Glucagon Inj 1 Mg Vial IM Q15MIN PRN BG <70, and no IV access Hydralazine HCl 50 mg 12/12/24 22:00 12/13/24 06:08 Hydralazine Hcl 25 Mg Tablet PO 01/11/25 21:59 50 mg TID CLEMENTINE Administration Ceftriaxone Sodium/Dextrose 2 gm in 50 mls @ 100 mls/hr 12/11/24 09:15 12/12/24 08:17 Rocephin/D5w 2gm IV 12/18/24 09:14 100 mls/hr QDAY CLEMENTINE Administration Insulin Glargine 15 unit 12/11/24 21:00 12/12/24 20:49 Insulin Glargine (Lantus) 5 Unit/0.05 Ml (Per 5 Units) SC 01/10/25 20:59 15 unit HS CLEMENTINE Administration Insulin Human Lispro 0 unit 12/11/24 07:30 12/12/24 21:20 Insulin Lispro (Admelog) 1 Unit/0.01 Ml Unit SC 01/10/25 07:29 Not Given ACHS CLEMENTINE Protocol Nifedipine 30 mg 12/12/24 12:00 12/12/24 12:24 Nifedipine Xl 30 Mg Tabcr PO 01/11/25 11:59 30 mg QDAY CLEMENTINE Administration Ondansetron HCl 4 mg 12/10/24 23:48 12/11/24 01:17 Ondansetron Inj 2 Mg/Ml Inj 2 Ml IVP 01/09/25 23:47 4 mg Q6H PRN Administration NAUSEA OR VOMITING Protocol Pantoprazole Sodium 40 mg 12/12/24 09:00 12/12/24 08:18 Pantoprazole 40 Mg Tablet PO 01/10/25 08:59 40 mg QDAY CLEMENTINE Administration Sennosides 1 tab 12/11/24 09:00 12/12/24 08:18 Senna Tablet PO 01/10/25 08:59 1 tab QDAY CLEMENTINE Administration Protocol Sodium Chloride 3 ml 12/11/24 14:16 12/11/24 14:42 Sodium Chloride Rt Katherine 0.9% 3 Ml Nebu INH 01/10/25 14:15 3 ml PRN PRN Administration SOLN Plan Kacy Cedillo is a 44-year-old female with past medical history of insulin-dependent type 2 diabetes, hypertension, GERD, history of valley fever untreated presented to the ED on 12/10 with episode of left flank pain, nausea/vomiting and chills will be admitted for hypertensive emergency requiring close monitoring along with acute renal failure requiring urology and nephrology consultation and IV antibiotics for cystitis #Acute kidney injury Likely multifactorial; suspecting pre-renal ischemic ATN vs obstructive etiology vs pre-renal from hypertensive emergency. Patient found to have pyelonephritis, came in after volume loss from vomiting. Cr worsened this morning to 4.6 despite making good urine; patient clinically looks relatively well otherwise, Patient endorses having 3/4 UTI's per year. Plan: -Will closely monitor urine output and kidney function. -May have to consider HD if patient does not improve -Outpatient kidney stone workup -Avoid nephrotoxic agents -Renally dose medications -Replete electrolytes as needed and follow-up with morning labs #Acute urinary retention #Bilateral hydronephrosis #Cystitis #Complicated UTI, nephrolithiasis #Hematuria #Hypertensive emergency, improving #Hypertension #Insulin-dependent type 2 diabetes #GERD -managed per primary team Thank you for allowing us to take part in the care of Ms. Cedillo Plan of care discussed with attending, Dr. Miriam Martinez MD PGY-1 Attending Provider Attestation/Addendum Patient seen and examined with resident physician Dr. Martinez. note reviewed, agree with findings and recommendations. SAPPHIRE probably related to prerenal azotemia//ischemic ATN(etiology still remains unclear). CT showed moderate hydronephrosis with the bilateral renal calculi. Doubt renal calculi is the cause for hydronephrosis. Patient seems to have vesicular ureteral reflux. No biopsy with hydronephrosis. Patient needs a Stone workup as an outpatient. Patient might need urology evaluation as outpatient. Currently on antibiotics. In the interim continue with fluids. Despite the azotemia-patient clinically do not seem to be in fluid overload. Agree with phosphorus and potassium binders. Hold off on dialysis with close monitoring of her labs and urine output. Plan of care discussed with Dr. Jane
[2024-12-13] MEDS: ALBUTEROL RT 2.5 MG/0.5 ML NEBU INH (08:40)
[2024-12-13] MEDS: SODIUM CHLORIDE RT SOL 0.9% 3 ML NEBU INH (08:41)
[2024-12-13] MEDS: CITRIC ACID/SODIUM CITR 15 ML UDC (BICITRA) 30 ML PO ×2 (10:05→22:10)
[2024-12-13] MEDS: SOD POLYSTYRENE SULFON SUSP 15 GM/60 ML BTL 30 GM PO (10:06)
[2024-12-13] MEDS: PANTOPRAZOLE 40 MG TABLET PO (10:07)
[2024-12-13] MEDS: NIFEdipine XL 30 MG TABCR PO (10:07)
[2024-12-13] MEDS: DEXTROSE 50%-WATER INJ 50 ML SYRINGE IVP (10:18)
[2024-12-13] MEDS: INSULIN HUM REGULAR 1 UNIT/0.01 ML (PER UNIT) 5 UNIT IV (10:19)
[2024-12-13] MEDS: cefTRIAXone/D5w 2gm 2 GM/50 ML BAG IV (10:20)
[2024-12-13] MEDS: TUBERCULIN PPD INJ 5 UNIT/0.1 ML DOSE ID (10:43)
[2024-12-13] MEDS: DEXTROSE 50%-WATER INJ 50 ML SYRINGE IV (11:33)
--- NOTE | 2024-12-13 12:42 | ESPR_ITS ---
<Statement entered by Joyce Jane MD - 12/23/24 07:44> I reviewed above note and agree with findings and plans. I have also personally examined the patient with medicine team and went over assessment and plan with medical team including agronomy internship and resident physician. Documentation for date of: 12/13/24 Subjective Subjective Interval history: Patient was seen and examined at bedside. A.m. vitals and labs reviewed. Despite putting cheng catheter, patient's Creatinine increased from 4.3 to 4.6. Patient's Urine output was 1800ml yesterday with I/O balance of 130ml. Urine in cheng bag was clear yellow in color. Currently following up with nephrology and urology. Holding dialysis, pending kidney function improvement. 12/13 at 8:34, follow up PPD result within 48hrs. Today, patient was feeling emotionally overwhelmed and has been tearful. Denied any abdominal pain, flank pain, chest palpitattion, chest pain, shortness of breathe. Exam Vital Signs Temp Pulse Resp BP Pulse Ox O2 Del Method 97.2 F 78 16 158/77 H 98 Room Air 12/13/24 11:46 12/13/24 11:46 12/13/24 11:46 12/13/24 11:46 12/13/24 11:46 12/13/24 11:46 Narrative Exam GENERAL: Awake, trembling, answering questions appropriately, appears stated age, obese HEENT: NC/AT. Moist mucosa. PERRLA/EOMI. CARDIO: Heart RRR, no obvious murmurs, no JVD. PULM: No coughing or visible SOB. Lungs CTA B/L. GI: Abdomen soft, No abdominal pain or flank pain on palpitation, No guarding or rebound tenderness noted. [place]gmi apparent SKIN/MSK/EXT: Non-pitting edema bilateral lower extremities. No wounds/discoloration/rashes/amputations. +Pedal pulses present B/L. NEURO: Oriented x3, Moves extremities x4, no focal neurologic deficits noted Objective Labs 12/13/24 04:55 12/13/24 12:37 Labs: Laboratory Results - last 24 hr 12/13/24 04:55 WBC 8.7 RBC 2.83 L Hgb 7.0 L Hct 22.8 L MCV 81 MCH 24.7 L MCHC 30.7 L RDW Std Deviation 45.5 Plt Count 274 D Neut % (Auto) 66 Lymph % (Auto) 23 [place] % (Auto) 6 Eos % (Auto) 4 Baso % (Auto) 1 Neut # (Auto) 5.8 Lymph # (Auto) 2.0 [place] # (Auto) 0.5 Eos # (Auto) 0.4 Baso # (Auto) 0.0 Immature Gran # (Auto) 0.03 H Absolute Nucleated RBC 0.00 Immature Gran % 0 Nucleated RBC % 0 Sodium 142 Potassium 5.2 H Chloride 111 H Carbon Dioxide 19.6 L Anion Gap 11 BUN 35 H Creatinine 4.6 H* Estim Creat Clear Calc 16.4 L eGFR 12 L* BUN/Creatinine Ratio 8 L Glucose 109 H Calculated Osmolality 292 Calcium 8.2 L Corrected Calcium 8.4 L Phosphorus 5.4 H Magnesium 1.9 Total Bilirubin 0.2 L AST 11 ALT 8 L Alkaline Phosphatase 75 Total Protein 6.2 Albumin 3.7 Globulin 2.5 Albumin/Globulin Ratio 1.5 Quality Measures Quality Measures VTE prophylaxis Assessment & Plan Assessment Current Active Medications: Generic Name Dose Route Start Last Admin Trade Name Freq PRN Reason Stop Dose Admin Acetaminophen 650 mg 12/10/24 23:48 12/12/24 20:48 Acetaminophen 325 Mg Tablet PO 01/09/25 23:47 650 mg Q6H PRN Administration PAIN SCALE 1-3 (mild Buspirone HCl 10 mg 12/11/24 21:00 12/12/24 20:48 Buspirone Hcl 5 Mg Tablet PO 01/10/25 20:59 10 mg HS CLEMENTINE Administration Calcium Acetate 667 mg 12/13/24 12:00 Calcium Acetate 667 Mg Tablet PO 01/12/25 11:59 TIDWM CLEMENTINE Carvedilol 6.25 mg 12/11/24 09:15 12/13/24 10:07 Carvedilol 3.125 Mg Tablet PO 01/10/25 09:14 6.25 mg BIDWM CLEMENTINE Administration Citric Acid/Sodium Citrate 30 ml 12/12/24 09:00 12/13/24 10:05 Citric Acid/Sodium Citr 15 Ml Udc (Bicitra) PO 01/11/25 08:59 30 ml BID CLEMENTINE Administration Dextrose 25 ml 12/10/24 23:51 Dextrose 50%-Water Inj 50 Ml Syringe IV 01/09/25 23:50 Q15MIN PRN BG 50-70 responsive npo pt Dextrose 50 ml 12/10/24 23:51 12/13/24 11:33 Dextrose 50%-Water Inj 50 Ml Syringe IV 01/09/25 23:50 50 ml Q15MIN PRN Administration BG <50 OR BG <70 & pt unresponsive Glucagon 1 mg 12/10/24 23:51 Glucagon Inj 1 Mg Vial IM Q15MIN PRN BG <70, and no IV access Ceftriaxone Sodium/Dextrose 2 gm in 50 mls @ 100 mls/hr 12/11/24 09:15 12/13/24 10:20 Rocephin/D5w 2gm IV 12/18/24 09:14 100 mls/hr QDAY CLEMENTINE Administration Insulin Glargine 15 unit 12/11/24 21:00 12/12/24 20:49 Insulin Glargine (Lantus) 5 Unit/0.05 Ml (Per 5 Units) SC 01/10/25 20:59 15 unit HS CLEMENTINE Administration Insulin Human Lispro 0 unit 12/11/24 07:30 12/13/24 10:12 Insulin Lispro (Admelog) 1 Unit/0.01 Ml Unit SC 01/10/25 07:29 Not Given ACHS CLEMENTINE Protocol Nifedipine 30 mg 12/12/24 12:00 12/13/24 10:07 Nifedipine Xl 30 Mg Tabcr PO 01/11/25 11:59 30 mg QDAY CLEMENTINE Administration Ondansetron HCl 4 mg 12/10/24 23:48 12/11/24 01:17 Ondansetron Inj 2 Mg/Ml Inj 2 Ml IVP 01/09/25 23:47 4 mg Q6H PRN Administration NAUSEA OR VOMITING Protocol Pantoprazole Sodium 40 mg 12/12/24 09:00 12/13/24 10:07 Pantoprazole 40 Mg Tablet PO 01/10/25 08:59 40 mg QDAY CLEMENTINE Administration Sennosides 1 tab 12/11/24 09:00 12/13/24 10:07 Senna Tablet PO 01/10/25 08:59 1 tab QDAY CLEMENTINE Administration Protocol Sodium Chloride 3 ml 12/11/24 14:16 12/13/24 08:41 Sodium Chloride Rt Katherine 0.9% 3 Ml Nebu INH 01/10/25 14:15 3 ml PRN PRN Administration SOLN Plan 44-year-old female with past medical history of insulin-dependent type 2 diabetes, hypertension, GERD, history of valley fever presented to the ED on 12/10 with episode of left flank pain, nausea/vomiting and chills will be admitted for hypertensive emergency requiring close monitoring along with acute renal failure requiring urology and nephrology consultation and IV antibiotics for cystitis #Acute renal failure 2/2 Acute tubular necrosis -Due to dehydration VS worsening diabetic nephropathy VS obstructive uropathy or prerenal azotemia -Patient has been having nausea/vomiting but does not seem dehydrated or hypovolemic at this time -Kidney failure likely secondary to hypertensive emergency as noted by elevated systolic blood pressure vs medication induced urinary retention -Patient was having hematuria, UA shows +3 blood and mild pyuria, but currently her urine looks clean yellow in cheng bag. -Despite putting cheng catheter, patient's Creatinine increased from 4.3 to 4.6. Less likely obstructive uropathy for etiology. -Patient's Urine output was 1800ml yesterday with I/O balance of 130ml. -Currently difficult to do kidney biopsy due to hydronephrosis. - CT findings as above Plan: -Gentle IVF resuscitation -Nephrology consulted, appreciate recommendations -Avoid nephrotoxic agents -Renally dose medications -Replete electrolytes as needed and follow-up with morning labs -Currently holding on dialysis as she was producing good amount of urine. Waiting for kidney improvement. #Acute urinary retention #Bilateral hydronephrosis #Cystitis #Complicated UTI, nephrolithiasis #Hematuria -On exam, patient no longer has left flank flank with CVA tenderness -CT abdomen pelvis shows a thick-walled cavitary lesion in the right middle lobe and a 22 mm pulmonary nodule in the anterior right lower lobe, numerous bilateral nonobstructing renal calculi, moderate bilateral hydronephrosis without calculi and cystitis -Based on CTAP presentation, urinary retention due to intake of meclizine was suspected as patient started to take it 1wk everyday prior to coming to the hospital. -Renal Ultrasound (12/11/2024): Moderate bilateral hydronephrosis -Renal Ultrasound (12/12/2024): Moderate bilateral hydronephrosis. (Post Day 1 cheng catheter) Plan: -Advised to stop taking meclizine. -Continue IV ceftriaxone 2g IV qd -Consulted with Urology, Dr. Friedman. Will continue to wait for several days and will repeat renal ultrasound to monitor her condition. Patient will do cystoscopy in outpatient setting. #Hypertensive emergency, improving #Hypertension Patient has significant history of hypertension on home antihypertensives Presenting to the ED with acute renal failure and elevated systolic pressure in the 200s Plan: -Nifedipine 30mg PO qd -Coreg 6.25mg PO bid -Hydralazine 50mg PO TID #Insulin-dependent type 2 diabetes Last A1c of 11.1 on June 2024 Patient apparently takes 30 units of long-acting insulin twice a day Plan: Insulin glargine 15 units at bedtime Sliding scale Follow-up on morning A1c #History of Valley Fever -CTAP(03/21/2024):30 mm thick-walled cavitary lesion partially visualized right midlung,, 22 mm pulmonary nodule anterior right lower lobe -CXR(07/16/2024): Poorly defined nodular density 18 mm in the right lower lobe, -CXR (12/10/2024):Opacity right base which may represent a pulmonary mass, 19 mm -CTAP(12/10/2024): thick walled 25 mm cavitary lesion in the right middle lobe and 22mm pulmonary nodule anterior right lower lobe Plan: -Fairly stable right lung pulmonary nodule. -Will continue to monitor. #GERD Chronic medical problems: All pertinent to the following presentation Plan: Restart home medications when med rec completed Health Maintenance: Lines: PIV Diet: Renal and carb consistent low Bowel: Senna GI prophylaxis: Not needed DVT prophylaxis: SCD Dispo: Nephrology neurology recommendations, IV antibiotics for cystitis Code: Full Assessment and plan discussed with my attending physician Dr. Buck Silva (PGY-1)- Internal medicine resident
[2024-12-13 13:30] LABS: Albumin, Serum 4.2 gm/dL (3.5-5.0); Anion Gap 12 (7-16); BUN/Creatinine Ratio 7 Ratio (12-20); Blood Urea Nitrogen 34 mg/dL (9-23); Calcium 8.8 mg/dL (8.3-10.6); Calcium (Corrected) 8.8 mg/dL (8.5-10.1); Carbon Dioxide 20.2 mMol/L (20.0-31.0); Chloride 110 mMol/L (98-107); Creatinine (Component) 4.6 mg/dL (0.6-1.3); Estimated Creatinine Clearance 16.6 mL/min (>60); Glucose 64 mg/dL (74-106); Osmolality,Calculated 288 (275-295); Phosphorous 4.8 mg/dL (2.4-5.1); Potassium 4.6 mMol/L (3.4-5.1); Sodium 142 mMol/L (136-145); eGFR 12 See Note
[2024-12-13] MEDS: CALCIUM ACETATE 667 MG TABLET PO ×2 (13:59→16:47)
--- NOTE | 2024-12-13 21:46 | PC.NURSE ---
Access chart to help the primary nurse pass meds, primary nurse is busy with his other patient at this time.
[2024-12-13] MEDS: INSULIN GLARGINE (Lantus) 5 UNIT/0.05 ML (PER 5 UNITS) 15 UNIT SC (22:10)
[2024-12-14] VITALS (9 sets, daily range): BP systolic 131–163; BP diastolic 75–84; PULSE 70–84; RESP 10–21; TEMP 36.6–37.1; O2SAT 96–99
[2024-12-14 05:26] LABS: Basophils # (Auto) 0.0 Thou/mm3 (0.0-0.2); Basophils % (Auto) 1 % (0-2.5); Eosinophils # (Auto) 0.3 Thou/mm3 (0.0-0.5); Eosinophils % (Auto) 4 % (0-10); Hematocrit 23.0 % (36.0-46.0); Immature Granulocytes Auto 0.03 Thou/mm3 (0.00-0.00); Lymphocytes # (Auto) 2.0 Thou/mm3 (1.0-4.8); Lymphocytes % (Auto) 24 % (10-50); Mean Corpuscular HGB Conc 30.9 g/dl (31.0-37.0); Mean Corpuscular Hemoglobin 25.8 pg (25.0-35.0); Mean Corpuscular Volume 84 fL (80-100); Monocytes # (Auto) 0.7 Thou/mm3 (0.0-0.8); Monocytes % (Auto) 8 % (0-12); Neutrophils # (Auto) 5.1 Thou/mm3 (1.8-7.7); Neutrophils % (Auto) 63 % (37-80); Nucleated Red Blood Cell # 0.00 Thou/mm3 (0.00-0.00); Nucleated Red Blood Cell % 0 /100 WBC (0); Platelet Count 281 Thou/mm3 (140-440); RDW Standard Deviation 46.1 fL (36.4-46.3); Red Blood Count 2.75 Miln/mm3 (4.00-5.20); White Blood Count 8.1 Thou/mm3 (3.6-11.0)
[2024-12-14 05:57] LABS: Hemoglobin 7.1 g/dL (12.0-16.0)
[2024-12-14 06:06] LABS: Alanine Aminotransferase 11 U/L (10-49); Albumin, Serum 3.6 gm/dL (3.5-5.0); Albumin/Globulin Ratio 1.4 (1.2-2.2); Alkaline Phosphatase 74 U/L (46-116); Anion Gap 8 (7-16); Aspartate Amino Transferase 13 U/L (0-34); BUN/Creatinine Ratio 8 Ratio (12-20); Bilirubin,Total 0.2 mg/dL (0.3-1.2); Blood Urea Nitrogen 40 mg/dL (9-23); Calcium 8.3 mg/dL (8.3-10.6); Calcium (Corrected) 8.6 mg/dL (8.5-10.1); Carbon Dioxide 21.6 mMol/L (20.0-31.0); Chloride 109 mMol/L (98-107); Creatinine (Component) 4.8 mg/dL (0.6-1.3); Estimated Creatinine Clearance 15.9 mL/min (>60); Globulin 2.5 gm/dL (2.3-3.5); Glucose 120 mg/dL (74-106); Magnesium 1.7 mg/dL (1.6-2.6); Osmolality,Calculated 288 (275-295); Phosphorous 5.6 mg/dL (2.4-5.1); Potassium 4.4 mMol/L (3.4-5.1); Sodium 139 mMol/L (136-145); Total Protein 6.1 gm/dL (5.7-8.2); eGFR 11 See Note
[2024-12-14] MEDS: cefTRIAXone/D5w 2gm 2 GM/50 ML BAG IV (08:33)
[2024-12-14] MEDS: CALCIUM ACETATE 667 MG TABLET PO ×3 (08:34→18:07)
[2024-12-14] MEDS: PANTOPRAZOLE 40 MG TABLET PO (08:34)
[2024-12-14] MEDS: NIFEdipine XL 30 MG TABCR PO (08:34)
[2024-12-14] MEDS: CITRIC ACID/SODIUM CITR 15 ML UDC (BICITRA) 30 ML PO ×2 (08:34→20:45)
--- NOTE | 2024-12-14 08:50 | XR_ITS ---
Examination: Nuclear medicine kidney imaging flow and function multiple studies Date and time: December 16, 2024 1544 hours INDICATIONS: Hypertension flank pain and vomiting chills this week, renal insufficiency TECHNIQUE AND FINDINGS: Intravenous administration 10.4 mCi technetium 99m MAG3 Flow and function curves generated to 60 minutes bilaterally Flow to the left kidney, no left renal function Minimal fluid in the right kidney, no renal function IMPRESSION: No bilateral renal function
--- NOTE | 2024-12-14 08:58 | ESPR_ITS ---
<Statement entered by Joyce Jane MD - 12/23/24 07:45> I reviewed above note and agree with findings and plans. I have also personally examined the patient with medicine team and went over assessment and plan with medical team including international trade teacher and resident physician. Documentation for date of: 12/14/24 Senior resident attestation: Patient evaluated and examined at the bedside, plan of care discussed with rest of the team including my attending physician, except as noted. Patient creatinine continues to uptrend, patient still making good urine, Cheng's catheter in place, spoke to bobbin winder Dr Pineda this morning, agreed with ordering autoimmune workup as patient was noted to have proteinuria on multiple prior urinalysis. Quite possible proteinuria secondary to concurrent UTI, ordered repeat urinalysis, urine protein creatinine ratio, 1308, approximate 1.3 g/day, ordered autoimmune panel DEMARCUS, ANCA, complement C3/C4. Nephrology plans to speak to IR tomorrow if possible to get good cortical tissue sample from biopsy in the presence of hydronephrosis. Continue with Cheng's catheter for strict ins and out monitoring. Quresh PGY3 Subjective Subjective Interval history: Patient was seen and evaluated bedside. Patient acknowledged blood when wiping upon urination. Patient stated that she has experienced what she called clots of blood since March. Patient endorsed urinary urgency, but denied frequency, dysuria, and flank pain. Patient is still producing adequate amounts of yellow urine, but urinalysis is still positive for hematuria. Upon examination, no abdominal pain or flank pain were present. Per Nephrology Dr. Pierre, continue to hold off on dialysis, ordered nuclear renal scan, repeat UA, urine protein, IgA levels, ANCA titers for possible IgA Nephropathy. Possible renal biopsy of cortex only. Exam Vital Signs Temp Pulse Resp BP Pulse Ox O2 Del Method 98.0 F 73 16 154/82 H 98 Room Air 12/14/24 04:00 12/14/24 08:34 12/14/24 04:00 12/14/24 08:34 12/14/24 04:00 12/14/24 04:00 Narrative Exam General Appearance: Alert & Oriented to person, place, time, and condition; well-nourished female who is lying in bed in no acute distress. HEENT: Skull symmetrical and atraumatic. Conjunctivae pink and moist. Pupils equal, round, reactive to light and accommodation (PERRL). External ear without lesion or discharge. Straight, nares patient, mucosa pink, no discharge. No thyroid nodule appreciated. No cervical lymphadenopathy. Cardio: Normal Rate and Rhythm with S1 and S2 heart sounds. No murmurs or extra heart sounds auscultated. No bruits on carotid auscultation. No peripheral edema or cyanosis. Lungs: Symmetric with good expansion. Chest and back non-tender. Breath sounds vesicular without crackles, wheezing or rhonchi Abdomen: Non-tender, Non-distended, Normal Reactive Bowel Sounds Neuro: Alert, cooperative, oriented to person, place, and time. Speech clear. CN grossly intact. Upper motor strength 5/5 and Lower motor strength 5/5. Sensation intact. Objective Labs 12/14/24 04:20 12/14/24 04:20 Labs: Laboratory Results - last 24 hr 12/13/24 12/14/24 12:37 04:20 WBC 8.1 RBC 2.75 L Hgb 7.1 L Hct 23.0 L MCV 84 MCH 25.8 MCHC 30.9 L RDW Std Deviation 46.1 Plt Count 281 Neut % (Auto) 63 Lymph % (Auto) 24 [place] % (Auto) 8 Eos % (Auto) 4 Baso % (Auto) 1 Neut # (Auto) 5.1 Lymph # (Auto) 2.0 [place] # (Auto) 0.7 Eos # (Auto) 0.3 Baso # (Auto) 0.0 Immature Gran # (Auto) 0.03 H Absolute Nucleated RBC 0.00 Immature Gran % 0 Nucleated RBC % 0 Sodium 142 139 Potassium 4.6 D 4.4 Chloride 110 H 109 H Carbon Dioxide 20.2 21.6 Anion Gap 12 8 BUN 34 H 40 H Creatinine 4.6 H* 4.8 H* Estim Creat Clear Calc 16.6 L 15.9 L eGFR 12 L* 11 L* BUN/Creatinine Ratio 7 L 8 L Glucose 64 L 120 H D Calculated Osmolality 288 288 Calcium 8.8 8.3 Corrected Calcium 8.8 8.6 Phosphorus 4.8 5.6 H Magnesium 1.7 Total Bilirubin 0.2 L AST 13 ALT 11 Alkaline Phosphatase 74 Total Protein 6.1 Albumin 4.2 D 3.6 D Globulin 2.5 Albumin/Globulin Ratio 1.4 Quality Measures Quality Measures VTE prophylaxis Assessment & Plan Assessment Current Active Medications: Generic Name Dose Route Start Last Admin Trade Name Kaleigh PRN Reason Stop Dose Admin Acetaminophen 650 mg 12/10/24 23:48 12/12/24 20:48 Acetaminophen 325 Mg Tablet PO 01/09/25 23:47 650 mg Q6H PRN Administration PAIN SCALE 1-3 (mild Buspirone HCl 10 mg 12/11/24 21:00 12/13/24 22:10 Buspirone Hcl 5 Mg Tablet PO 01/10/25 20:59 10 mg HS CLEMENTINE Administration Calcium Acetate 667 mg 12/13/24 12:00 12/14/24 08:34 Calcium Acetate 667 Mg Tablet PO 01/12/25 11:59 667 mg TIDWM CLEMENTINE Administration Carvedilol 12.5 mg 12/14/24 08:00 12/14/24 08:34 Carvedilol 12.5 Mg Tablet PO 01/13/25 07:59 12.5 mg BIDWM CLEMENTINE Administration Citric Acid/Sodium Citrate 30 ml 12/12/24 09:00 12/14/24 08:34 Citric Acid/Sodium Citr 15 Ml Udc (Bicitra) PO 01/11/25 08:59 30 ml BID CLEMENTINE Administration Dextrose 25 ml 12/10/24 23:51 Dextrose 50%-Water Inj 50 Ml Syringe IV 01/09/25 23:50 Q15MIN PRN BG 50-70 responsive npo pt Dextrose 50 ml 12/10/24 23:51 12/13/24 11:33 Dextrose 50%-Water Inj 50 Ml Syringe IV 01/09/25 23:50 50 ml Q15MIN PRN Administration BG <50 OR BG <70 & pt unresponsive Glucagon 1 mg 12/10/24 23:51 Glucagon Inj 1 Mg Vial IM Q15MIN PRN BG <70, and no IV access Hydroxyzine HCl 25 mg 12/13/24 21:00 12/13/24 22:10 Hydroxyzine Hcl 25 Mg Tablet PO 01/12/25 20:59 25 mg HS CLEMENTINE Administration Ceftriaxone Sodium/Dextrose 2 gm in 50 mls @ 100 mls/hr 12/11/24 09:15 12/14/24 08:33 Rocephin/D5w 2gm IV 12/18/24 09:14 100 mls/hr QDAY CLEMENTINE Administration Insulin Glargine 15 unit 12/11/24 21:00 12/13/24 22:10 Insulin Glargine (Lantus) 5 Unit/0.05 Ml (Per 5 Units) SC 01/10/25 20:59 15 unit HS CLEMENTINE Administration Insulin Human Lispro 0 unit 12/11/24 07:30 12/14/24 07:35 Insulin Lispro (Admelog) 1 Unit/0.01 Ml Unit SC 01/10/25 07:29 Not Given ACHS CLEMENTINE Protocol Nifedipine 30 mg 12/12/24 12:00 12/14/24 08:34 Nifedipine Xl 30 Mg Tabcr PO 01/11/25 11:59 30 mg QDAY CLEMENTINE Administration Ondansetron HCl 4 mg 12/10/24 23:48 12/11/24 01:17 Ondansetron Inj 2 Mg/Ml Inj 2 Ml IVP 01/09/25 23:47 4 mg Q6H PRN Administration NAUSEA OR VOMITING Protocol Pantoprazole Sodium 40 mg 12/12/24 09:00 12/14/24 08:34 Pantoprazole 40 Mg Tablet PO 01/10/25 08:59 40 mg QDAY CLEMENTINE Administration Sennosides 1 tab 12/11/24 09:00 12/14/24 08:34 Senna Tablet PO 01/10/25 08:59 1 tab QDAY CLEMENTINE Administration Protocol Sodium Chloride 3 ml 12/11/24 14:16 12/13/24 08:41 Sodium Chloride Rt Katherine 0.9% 3 Ml Nebu INH 01/10/25 14:15 3 ml PRN PRN Administration SOLN Plan Plan 44-year-old female with past medical history of insulin-dependent type 2 diabetes, hypertension, GERD, history of valley fever presented to the ED on 12/10 with episode of left flank pain, nausea/vomiting and chills will be admitted for hypertensive emergency requiring close monitoring along with acute renal failure requiring urology and nephrology consultation and IV antibiotics for cystitis #Acute renal failure 2/2 Acute tubular necrosis -Due to dehydration VS worsening diabetic nephropathy VS obstructive uropathy or prerenal azotemia -Patient has been having nausea/vomiting but does not seem dehydrated or hypovolemic at this time -Kidney failure likely secondary to hypertensive emergency as noted by elevated systolic blood pressure vs medication induced urinary retention -Currently her urine looks clean yellow in cheng bag. -Pertinent labs: 12/13 BUN 34 Cr 4.6 GFR 12 12/14 BUN 40 Cr 4.8 GFR 11 Urine Random Total Protein 68 -Repeat UA 12/14 Urine protein +1 Urine blood +1 RBC 5 -Patient's 24 hour urine output 1275 mL without dysuria -Currently difficult to do kidney biopsy due to hydronephrosis. - CT findings as above Plan: -Gentle IVF resuscitation -Nephrology consulted, Dr. Pierre, ordered nuclear renal scan, IgA levels for IgA nephropathy, Hepatitis A/B titers, ANCA titers, pending results, appreciate recommendations -Avoid nephrotoxic agents -Renally dose medications -Replete electrolytes as needed and follow-up with morning labs -Currently holding on dialysis as she was producing good amount of urine. Waiting for kidney improvement. #Acute urinary retention #Bilateral hydronephrosis #Cystitis #Complicated UTI, nephrolithiasis #Hematuria -On exam, patient no longer has left flank flank with CVA tenderness -CT abdomen pelvis shows a thick-walled cavitary lesion in the right middle lobe and a 22 mm pulmonary nodule in the anterior right lower lobe, numerous bilateral nonobstructing renal calculi, moderate bilateral hydronephrosis without calculi and cystitis -Based on CTAP presentation, urinary retention due to intake of meclizine was suspected as patient started to take it 1wk everyday prior to coming to the hospital. -Renal Ultrasound (12/11/2024): Moderate bilateral hydronephrosis -Renal Ultrasound (12/12/2024): Moderate bilateral hydronephrosis. (Post Day 1 cheng catheter) Plan: -Advised to stop taking meclizine. -Continue IV ceftriaxone 2g IV qd (12/11-12/18) -Consulted with Urology, Dr. Friedman. Will continue to wait for several days and will repeat renal ultrasound to monitor her condition. Patient will do cystoscopy in outpatient setting. #Hypertensive emergency, improving #Hypertension Patient has significant history of hypertension on home antihypertensives Presenting to the ED with acute renal failure and elevated systolic pressure in the 200s Plan: - continue Nifedipine 30mg PO qd - Coreg 6.25mg PO bid uptitrated to 12.5 PO BID today - discontinued Hydralazine 50mg PO TID 12/13/24 #Insulin-dependent type 2 diabetes Pertinent labs: 06/2024 A1C 11.1 12/11/24 A1C 8.0 Patient apparently takes 30 units of long-acting insulin twice a day Plan: Insulin glargine 15 units at bedtime Sliding scale #History of Valley Fever -CTAP(03/21/2024):30 mm thick-walled cavitary lesion partially visualized right midlung,, 22 mm pulmonary nodule anterior right lower lobe -CXR(07/16/2024): Poorly defined nodular density 18 mm in the right lower lobe, -CXR (12/10/2024):Opacity right base which may represent a pulmonary mass, 19 mm -CTAP(12/10/2024): thick walled 25 mm cavitary lesion in the right middle lobe and 22mm pulmonary nodule anterior right lower lobe Plan: -Fairly stable right lung pulmonary nodule. -Will continue to monitor. #GERD Chronic medical problems: All pertinent to the following presentation Plan: -Continue Pantoprazole 40 mg PO QD Health Maintenance: Lines: PIV Diet: Renal and carb consistent low Bowel: Senna GI prophylaxis: Pantoprazole 40 mg PO QD DVT prophylaxis: SCD Dispo: Nephrology neurology recommendations, IV antibiotics for cystitis Code: Full Case reviewed with attending Dr. Jane and senior resident Dr. Kim. Suzette Del Angel MS-4
--- NOTE | 2024-12-14 09:53 | ESPR_ITS ---
Documentation for date of: 12/14/24 Subjective Subjective Interval history: Ms. Cedillo is a 44-year-old female with past medical history of insulin- dependent type 2 diabetes, hypertension, GERD, history of valley fever untreated presented to the ED on 12/10 with episode of left flank pain, nausea/vomiting and chills. Patient states that the chills started roughly an hour ago but that she has been having progressively worsening left flank pain radiating to her back. Patient denies having any dysuria but does state that she has been having lilia hematuria for several days. Patient denies having any fevers but she does state that she has been having chills. Patient also complains of suprapubic pain and mentions that she feels pain near her ovaries. Patient has not seen PCP regarding the symptoms but she was seen several weeks ago for GERD like symptoms and was given medications. Patient otherwise denies having any concerning symptoms such as chest pain, dizziness, shortness of breath. In the ED, patient presented in hypertensive emergency with a blood pressure 187/83, other vitals wnl. Pertinent lab findings included WBC of 9, hemoglobin 7.9, potassium of 5.4, BUN of 31, creatinine 3.9, EGFR of 14, magnesium 1.6, troponin less than 0.02, BNP of 235, urinalysis shows hematuria and mild pyuria but no bacteria. Chest x-ray shows mild prominence of ventricles along with opacity in the right base concerning for pulmonary mass, EKG shows sinus rhythm without any concerning ST changes and CT abdomen pelvis shows a thick-walled cavitary lesion in the right middle lobe and a 22 mm pulmonary nodule in the anterior right lower lobe, numerous bilateral nonobstructing renal calculi, moderate bilateral hydronephrosis without calculi and cystitis. Patient will be admitted for hypertensive emergency requiring close monitoring along with acute renal failure requiring urology and nephrology consultation and IV antibiotics for cystitis Upon seeing the patient currently, she is on Mg Sulfate, Ceftriaxone, Carvedilol 6.25 mg, and maintenance IV fluids with a slightly improved blood pressure of 168/88 with the rest of vitals wnl. Patient states she is currently feeling much better now. States that she still has some nausea, L flank pain radiating to back and some dizziness when she stands up for too long. Patient states she has noticed blood in her urine today and ever since March. Patient endorses having bowel movements. Patient denies fever, headache, chest pain, shortness of breath, vomiting. 12/12/2024 No acute overnight events. Patient was seen and examined at bedside. Patient's Cr worsened this morning to 4.3 despite making urine with urinary catheter, so want to repeat renal US to see if hydronephrosis (or other obstruction) persisted. Checking urine lytes for possible rta. Patient denies fever, headache, chest pain, shortness of breath, nausea, vomiting. 12/13/2024 No acute overnight events. Patient was seen and examined at bedside. Patient's vitals and labs reviewed. Patient's Cr continues to worsen depsite making plenty of good urine. Patient endorses having 3/4 UTI's per year. Patient denies fever, headache, chest pain, shortness of breath, nausea, vomiting. 12/14/24: Patient was seen and examined at bedside with family member. No new complaints. Denies chest pain, SOB, fever, flank pain or abdominal pain. Cr and BUN continue to stay elevated despite making good urine. Exam Vital Signs Temp Pulse Resp BP Pulse Ox O2 Del Method 98.7 F 73 10 L 154/82 H 97 Room Air 12/14/24 08:00 12/14/24 08:34 12/14/24 08:00 12/14/24 08:34 12/14/24 08:00 12/14/24 08:00 Narrative Exam GENERAL: a&o x3, no acute distress, resting in bed HEENT: NC/AT. Moist mucosa. PERRLA/EOMI. CARDIO: Heart RRR, no murmurs appreciated PULM: Lungs CTA B/L, no resp distress ABD: soft, distended with no abdominal tenderness SKIN: No edema bilateral lower extremities. No wounds/discoloration/rashes/amputations. +Pedal pulses present B/L. MSK: No joint swelling or pain/tenderness noted. EXT: upper and lower extremities atraumatic in appearance, able to move all 4 extremities. NEURO: no focal neurologic deficits noted Objective Labs 12/14/24 04:20 12/14/24 04:20 Labs: Laboratory Results - last 24 hr 12/13/24 12/14/24 12:37 04:20 WBC 8.1 RBC 2.75 L Hgb 7.1 L Hct 23.0 L MCV 84 MCH 25.8 MCHC 30.9 L RDW Std Deviation 46.1 Plt Count 281 Neut % (Auto) 63 Lymph % (Auto) 24 [place] % (Auto) 8 Eos % (Auto) 4 Baso % (Auto) 1 Neut # (Auto) 5.1 Lymph # (Auto) 2.0 [place] # (Auto) 0.7 Eos # (Auto) 0.3 Baso # (Auto) 0.0 Immature Gran # (Auto) 0.03 H Absolute Nucleated RBC 0.00 Immature Gran % 0 Nucleated RBC % 0 Sodium 142 139 Potassium 4.6 D 4.4 Chloride 110 H 109 H Carbon Dioxide 20.2 21.6 Anion Gap 12 8 BUN 34 H 40 H Creatinine 4.6 H* 4.8 H* Estim Creat Clear Calc 16.6 L 15.9 L eGFR 12 L* 11 L* BUN/Creatinine Ratio 7 L 8 L Glucose 64 L 120 H D Calculated Osmolality 288 288 Calcium 8.8 8.3 Corrected Calcium 8.8 8.6 Phosphorus 4.8 5.6 H Magnesium 1.7 Total Bilirubin 0.2 L AST 13 ALT 11 Alkaline Phosphatase 74 Total Protein 6.1 Albumin 4.2 D 3.6 D Globulin 2.5 Albumin/Globulin Ratio 1.4 Quality Measures Quality Measures VTE prophylaxis Assessment & Plan Assessment Current Active Medications: Generic Name Dose Route Start Last Admin Trade Name Freq PRN Reason Stop Dose Admin Acetaminophen 650 mg 12/10/24 23:48 12/12/24 20:48 Acetaminophen 325 Mg Tablet PO 01/09/25 23:47 650 mg Q6H PRN Administration PAIN SCALE 1-3 (mild Buspirone HCl 10 mg 12/11/24 21:00 12/13/24 22:10 Buspirone Hcl 5 Mg Tablet PO 01/10/25 20:59 10 mg HS CLEMENTINE Administration Calcium Acetate 667 mg 12/13/24 12:00 12/14/24 08:34 Calcium Acetate 667 Mg Tablet PO 01/12/25 11:59 667 mg TIDWM CLEMENTINE Administration Carvedilol 12.5 mg 12/14/24 08:00 12/14/24 08:34 Carvedilol 12.5 Mg Tablet PO 01/13/25 07:59 12.5 mg BIDWM CLEMENTINE Administration Citric Acid/Sodium Citrate 30 ml 12/12/24 09:00 12/14/24 08:34 Citric Acid/Sodium Citr 15 Ml Udc (Bicitra) PO 01/11/25 08:59 30 ml BID CLEMENTINE Administration Dextrose 25 ml 12/10/24 23:51 Dextrose 50%-Water Inj 50 Ml Syringe IV 01/09/25 23:50 Q15MIN PRN BG 50-70 responsive npo pt Dextrose 50 ml 12/10/24 23:51 12/13/24 11:33 Dextrose 50%-Water Inj 50 Ml Syringe IV 01/09/25 23:50 50 ml Q15MIN PRN Administration BG <50 OR BG <70 & pt unresponsive Glucagon 1 mg 12/10/24 23:51 Glucagon Inj 1 Mg Vial IM Q15MIN PRN BG <70, and no IV access Hydroxyzine HCl 25 mg 12/13/24 21:00 12/13/24 22:10 Hydroxyzine Hcl 25 Mg Tablet PO 01/12/25 20:59 25 mg HS CLEMENTINE Administration Ceftriaxone Sodium/Dextrose 2 gm in 50 mls @ 100 mls/hr 12/11/24 09:15 12/14/24 08:33 Rocephin/D5w 2gm IV 12/18/24 09:14 100 mls/hr QDAY CLEMENTINE Administration Insulin Glargine 15 unit 12/11/24 21:00 12/13/24 22:10 Insulin Glargine (Lantus) 5 Unit/0.05 Ml (Per 5 Units) SC 01/10/25 20:59 15 unit HS CLEMENTINE Administration Insulin Human Lispro 0 unit 12/11/24 07:30 12/14/24 07:35 Insulin Lispro (Admelog) 1 Unit/0.01 Ml Unit SC 01/10/25 07:29 Not Given ACHS CLEMENTINE Protocol Nifedipine 30 mg 12/12/24 12:00 12/14/24 08:34 Nifedipine Xl 30 Mg Tabcr PO 01/11/25 11:59 30 mg QDAY CLEMENTINE Administration Ondansetron HCl 4 mg 12/10/24 23:48 12/11/24 01:17 Ondansetron Inj 2 Mg/Ml Inj 2 Ml IVP 01/09/25 23:47 4 mg Q6H PRN Administration NAUSEA OR VOMITING Protocol Pantoprazole Sodium 40 mg 12/12/24 09:00 07/20/25 08:34 Pantoprazole 40 Mg Tablet PO 01/10/25 08:59 40 mg QDAY CLEMENTINE Administration Sennosides 1 tab 12/11/24 09:00 12/14/24 08:34 Senna Tablet PO 01/10/25 08:59 1 tab QDAY CLEMENTINE Administration Protocol Sodium Chloride 3 ml 12/11/24 14:16 12/13/24 08:41 Sodium Chloride Rt Katherine 0.9% 3 Ml Nebu INH 01/10/25 14:15 3 ml PRN PRN Administration SOLN Plan Kacy Cedillo is a 44-year-old female with past medical history of insulin-dependent type 2 diabetes, hypertension, GERD, history of valley fever untreated presented to the ED on 12/10 with episode of left flank pain, nausea/vomiting and chills will be admitted for hypertensive emergency requiring close monitoring along with acute renal failure requiring urology and nephrology consultation and IV antibiotics for cystitis #Acute kidney injury Likely multifactorial; suspecting pre-renal ischemic ATN vs obstructive etiology vs pre-renal from hypertensive emergency. Patient found to have pyelonephritis and seems to have vesicular ureteral reflux. CT showed numerous b/l nonobstructing renal caliculi, mod b/l hydronephrosis wo ureteral calculi, cystitis pattern Cr continues to stay elevated (4.6, 4.8) despite making good urine; patient clinically looks relatively well otherwise, Patient endorses having 3/4 UTI's per year. With hydronephrosis, biopsy is contraindicated; however, can potentially biopsy from renal cortex not medulla. Consider biopsy if repeat UA shows continued protein loss with resolution of UTI. Ulytes wnl. Plan: -CTM chem and urine output -Hold HD today, consider HD if patient clinically declines or labs start to further elevate -Urology consulted, recs appreciated -F/u repeat UA, urine protein and UCr, DEMARCUS, ANCA, C3/C4, IgA, hep panel -F/u NM renal scan -Avoid nephrotoxic agents -Renally dose medications -Replete electrolytes as needed and follow-up with morning labs #Acute urinary retention #Bilateral hydronephrosis #Cystitis #Complicated UTI, nephrolithiasis #Hematuria #Hypertensive emergency, improving #Hypertension #Insulin-dependent type 2 diabetes #GERD -Managed per primary team Thank you for allowing us to take part in the care of Ms. Cedillo Plan of care discussed with attending, Dr. Miriam Orosco, DO Internal Medicine PGY-1 Attending Provider Attestation/Addendum Patient seen and examined with resident physician Dr. Orosco. note reviewed, agree with findings and recommendations. SAPPHIRE probably related to prerenal azotemia//ischemic ATN(etiology still remains unclear). CT showed moderate hydronephrosis with the bilateral renal calculi. Doubt renal calculi is the cause for hydronephrosis. Patient seems to have vesicular ureteral reflux. No biopsy with hydronephrosis. Patient needs a Stone workup as an outpatient. Patient might need urology evaluation as outpatient. Currently on antibiotics. Despite the azotemia-patient clinically do not seem to be in fluid overload. Agree with phosphorus and potassium binders. Hold off on dialysis with close monitoring of her labs and urine output. Plan of care discussed with Dr. Jane. Ssupect recovery phase of ATN.
[2024-12-14 10:04] LABS: Collection Type, Urine Catheter
[2024-12-14 10:21] LABS: Creatinine,Random Urine 52 mg/dL (30-125); Protein Total, Random Urine 68 mg/dL (1-14)
[2024-12-14 10:35] LABS: Creatinine,Random Urine 53 mg/dL (30-125)
[2024-12-14 10:44] LABS: Bacteria,Urine Rare; Bilirubin,Urine Negative (Negative); Blood,Urine 1+ (Negative); Clarity,Urine Clear (Clear/Hazy); Glucose, Urine Negative (Negative); Ketones,Urine Negative (Negative); Leukocyte Esterase,Urine Negative (Negative); Nitrite,Urine Negative (Negative); PH,Urine 6.5 (5.0-7.0); Protein,Urine 1+ (Neg - Trace); RBC,Urine 5 /hpf (0-3); Specific Gravity,Urine 1.007 (1.001-1.035); Squamous Epithelial Cell,Urine 1 /hpf (0-5); Urobilinogen,Urine Negative mg/dL (0.0-1.0); WBC,Urine 2 /hpf (0-5)
[2024-12-14 10:54] LABS: Color,Urine Lt-Yellow (Lt Yel-Yel)
[2024-12-14] MEDS: ACETAMINOPHEN 325 MG TABLET 650 MG PO (11:56)
[2024-12-14] MEDS: INSULIN GLARGINE (Lantus) 5 UNIT/0.05 ML (PER 5 UNITS) 15 UNIT SC (20:45)
[2024-12-14 21:51] LABS: Hepatitis A Antibody IgM Non Reactive (Non React); Hepatitis B Core Antibody IgM Non Reactive (Non React); Hepatitis B Surface Antigen Non Reactive (Non React); Hepatitis C Antibody Non Reactive (Non React)
[2024-12-15] VITALS (22 sets, daily range): BP systolic 149–188; BP diastolic 56–95; PULSE 62–86; RESP 12–19; TEMP 36.2–36.8; O2SAT 93–99
[2024-12-15 05:19] LABS: Basophils # (Auto) 0.0 Thou/mm3 (0.0-0.2); Basophils % (Auto) 0 % (0-2.5); Eosinophils # (Auto) 0.4 Thou/mm3 (0.0-0.5); Eosinophils % (Auto) 5 % (0-10); Hematocrit 21.8 % (36.0-46.0); Immature Granulocytes Auto 0.03 Thou/mm3 (0.00-0.00); Lymphocytes # (Auto) 1.9 Thou/mm3 (1.0-4.8); Lymphocytes % (Auto) 24 % (10-50); Mean Corpuscular HGB Conc 31.2 g/dl (31.0-37.0); Mean Corpuscular Hemoglobin 25.9 pg (25.0-35.0); Mean Corpuscular Volume 83 fL (80-100); Monocytes # (Auto) 0.6 Thou/mm3 (0.0-0.8); Monocytes % (Auto) 8 % (0-12); Neutrophils # (Auto) 5.1 Thou/mm3 (1.8-7.7); Neutrophils % (Auto) 64 % (37-80); Nucleated Red Blood Cell # 0.00 Thou/mm3 (0.00-0.00); Nucleated Red Blood Cell % 0 /100 WBC (0); Platelet Count 285 Thou/mm3 (140-440); RDW Standard Deviation 46.0 fL (36.4-46.3); Red Blood Count 2.63 Miln/mm3 (4.00-5.20); White Blood Count 8.0 Thou/mm3 (3.6-11.0)
[2024-12-15 05:26] LABS: Hemoglobin 6.8 g/dL (12.0-16.0)
[2024-12-15 05:54] LABS: Alanine Aminotransferase 10 U/L (10-49); Albumin, Serum 3.6 gm/dL (3.5-5.0); Albumin/Globulin Ratio 1.5 (1.2-2.2); Alkaline Phosphatase 81 U/L (46-116); Anion Gap 14 (7-16); Aspartate Amino Transferase 13 U/L (0-34); BUN/Creatinine Ratio 9 Ratio (12-20); Bilirubin,Total < 0.2 mg/dL (0.3-1.2); Blood Urea Nitrogen 47 mg/dL (9-23); Calcium 8.3 mg/dL (8.3-10.6); Calcium (Corrected) 8.6 mg/dL (8.5-10.1); Carbon Dioxide 22.1 mMol/L (20.0-31.0); Chloride 106 mMol/L (98-107); Creatinine (Component) 5.1 mg/dL (0.6-1.3); Estimated Creatinine Clearance 15.0 mL/min (>60); Globulin 2.4 gm/dL (2.3-3.5); Glucose 153 mg/dL (74-106); Magnesium 1.6 mg/dL (1.6-2.6); Osmolality,Calculated 298 (275-295); Phosphorous 6.2 mg/dL (2.4-5.1); Potassium 4.3 mMol/L (3.4-5.1); Sodium 142 mMol/L (136-145); Total Protein 6.0 gm/dL (5.7-8.2); eGFR 10 See Note
[2024-12-15 06:04] LABS: Path Review Blood Smear Sent to Pathologist
--- NOTE | 2024-12-15 08:00 | PC.NURSE ---
Dr Pineda in to see pt. Informed pt she needs dialysis and kidney biopsy. NPO now and 1 unit of PRBCs ordered by hospitalist team to be given with dialysis. Pt is visibly upset. Offered condolences and assurance that her best interest is in mind and we will support her physical and emotional needs through this difficult process.
--- NOTE | 2024-12-15 08:04 | XR_ITS ---
Ultrasound-guided needle placement right internal jugular vein Permanent tunneled dialysis catheter insertion, percutaneous Fluoroscopy AP chest, portable, single view INDICATIONS: Renal failure, need for stat and long-term dialysis Date and time of procedure: December 15, 2024 1431 hours Informed consent provided Technique: A timeout was completed verifying correct patient, procedure, site, positioning, and special equipment if applicable. The patient was placed in a dependent position appropriate for dialysis catheter placement based on the vein to be cannulated. The patient'sright neck was prepped and draped in sterile fashion. Maximum Sterile Barrier Technique used including cap, mask, sterile gown, sterile gloves, and sterile full body drape. If ultrasound technique used: sterile gel and sterile probe covers. Hand Hygiene performed using proper scrub, soap and water, or alcohol-based hand rub. 1% lidocaine was used to anesthetize the surrounding skin area [employer] portable ultrasound apparatus utilized to confirm patency of the right internal jugular vein Utilizing ultrasonographic guidance successful 21-gauge needle puncture into the right internal jugular vein. Ultrasound images were recorded and stored. Vessel micropuncture was performed with 21-gauge needle. 0.18 wire guide is introduced into the vein. 0.18 wire is introduced into the vena cava under fluoroscopy. Subcutaneous tunnel formed in the upper chest. Permanent tunneled dialysis catheter placed in the subcutaneous tunnel. Dilators were introduced over the J-wire guide. Tunneled dialysis catheter is introduced through a dilator with venous sheath into the superior vena cava under fluoroscopic guidance. The catheter is sutured in place to the skin and a sterile dressing applied. Perfusion to the extremity distal to the point of catheter insertion is checked and found to be adequate Attending radiologist was present for the entire procedure Estimated blood loss2 cc. The patient tolerated the procedure well and there were no complications Impression: Successful ultrasound-guided needle placement right internal jugular vein Successful permanent tunneled dialysis catheter insertion, percutaneous Fluoroscopy 1.5 minute radiation dose 26 milligray 1 spot fluoroscopic chest film. AP chest performed at completion procedure demonstrates satisfactory position dialysis catheter. May use dialysis catheter.
[2024-12-15] MEDS: cefTRIAXone/D5w 2gm 2 GM/50 ML BAG IV (08:07)
[2024-12-15] MEDS: CALCIUM ACETATE 667 MG TABLET PO ×2 (08:07→17:49)
[2024-12-15] MEDS: CITRIC ACID/SODIUM CITR 15 ML UDC (BICITRA) 30 ML PO ×2 (08:07→22:06)
[2024-12-15] MEDS: PANTOPRAZOLE 40 MG TABLET PO (08:08)
[2024-12-15 08:49] LABS: INR 1.0 (0.9-1.3); Partial Thromboplastin Time 29.5 Seconds (22.0-36.0); Prothrombin Time 10.9 Seconds (9.0-12.2)
--- NOTE | 2024-12-15 09:39 | ESPR_ITS ---
Documentation for date of: 12/15/24 Subjective Subjective Interval history: Ms. Cedillo is a 44-year-old female with past medical history of insulin- dependent type 2 diabetes, hypertension, GERD, history of valley fever untreated presented to the ED on 12/10 with episode of left flank pain, nausea/vomiting and chills. Patient states that the chills started roughly an hour ago but that she has been having progressively worsening left flank pain radiating to her back. Patient denies having any dysuria but does state that she has been having lilia hematuria for several days. Patient denies having any fevers but she does state that she has been having chills. Patient also complains of suprapubic pain and mentions that she feels pain near her ovaries. Patient has not seen PCP regarding the symptoms but she was seen several weeks ago for GERD like symptoms and was given medications. Patient otherwise denies having any concerning symptoms such as chest pain, dizziness, shortness of breath. In the ED, patient presented in hypertensive emergency with a blood pressure 187/83, other vitals wnl. Pertinent lab findings included WBC of 9, hemoglobin 7.9, potassium of 5.4, BUN of 31, creatinine 3.9, EGFR of 14, magnesium 1.6, troponin less than 0.02, BNP of 235, urinalysis shows hematuria and mild pyuria but no bacteria. Chest x-ray shows mild prominence of ventricles along with opacity in the right base concerning for pulmonary mass, EKG shows sinus rhythm without any concerning ST changes and CT abdomen pelvis shows a thick-walled cavitary lesion in the right middle lobe and a 22 mm pulmonary nodule in the anterior right lower lobe, numerous bilateral nonobstructing renal calculi, moderate bilateral hydronephrosis without calculi and cystitis. Patient will be admitted for hypertensive emergency requiring close monitoring along with acute renal failure requiring urology and nephrology consultation and IV antibiotics for cystitis Upon seeing the patient currently, she is on Mg Sulfate, Ceftriaxone, Carvedilol 6.25 mg, and maintenance IV fluids with a slightly improved blood pressure of 168/88 with the rest of vitals wnl. Patient states she is currently feeling much better now. States that she still has some nausea, L flank pain radiating to back and some dizziness when she stands up for too long. Patient states she has noticed blood in her urine today and ever since March. Patient endorses having bowel movements. Patient denies fever, headache, chest pain, shortness of breath, vomiting. 12/12/2024 No acute overnight events. Patient was seen and examined at bedside. Patient's Cr worsened this morning to 4.3 despite making urine with urinary catheter, so want to repeat renal US to see if hydronephrosis (or other obstruction) persisted. Checking urine lytes for possible rta. Patient denies fever, headache, chest pain, shortness of breath, nausea, vomiting. 12/13/2024 No acute overnight events. Patient was seen and examined at bedside. Patient's vitals and labs reviewed. Patient's Cr continues to worsen depsite making plenty of good urine. Patient endorses having 3/4 UTI's per year. Patient denies fever, headache, chest pain, shortness of breath, nausea, vomiting. 12/14/24: Patient was seen and examined at bedside with family member. No new complaints. Denies chest pain, SOB, fever, flank pain or abdominal pain. Cr and BUN continue to stay elevated despite making good urine. 12/15/24: Patient was seen and examined at bedside with family member. Patient was informed that she will need hemodialysis. No new complaints. Denies chest pain, SOB, fever, flank pain or abdominal pain. Cr and BUN continue to stay elevated despite making good urine. Exam Vital Signs Temp Pulse Resp BP Pulse Ox O2 Del Method 97.7 F 86 15 159/83 H 97 Room Air 12/15/24 07:52 12/15/24 07:52 12/15/24 07:52 12/15/24 07:52 12/15/24 07:52 12/15/24 04:00 Narrative Exam GENERAL: a&o x3, no acute distress, resting in bed HEENT: NC/AT. Moist mucosa. PERRLA/EOMI. CARDIO: Heart RRR, no murmurs appreciated PULM: Lungs CTA B/L, no resp distress ABD: soft, distended with no abdominal tenderness SKIN: No edema bilateral lower extremities. No wounds/discoloration/rashes/amputations. +Pedal pulses present B/L. MSK: No joint swelling or pain/tenderness noted. EXT: upper and lower extremities atraumatic in appearance, able to move all 4 extremities. NEURO: no focal neurologic deficits noted Objective Labs 12/16/24 04:42 12/16/24 04:42 Labs: Laboratory Results - last 24 hr 12/13/24 12/14/24 12/14/24 04:55 08:45 08:45 WBC RBC Hgb Hct MCV MCH MCHC RDW Std Deviation Plt Count Neut % (Auto) Lymph % (Auto) Merrick % (Auto) Eos % (Auto) Baso % (Auto) Neut # (Auto) Lymph # (Auto) Merrick # (Auto) Eos # (Auto) Baso # (Auto) Immature Gran # (Auto) Absolute Nucleated RBC Immature Gran % Nucleated RBC % Smear Path Review PT INR APTT Sodium Potassium Chloride Carbon Dioxide Anion Gap BUN Creatinine Estim Creat Clear Calc eGFR BUN/Creatinine Ratio Glucose Calculated Osmolality Calcium Corrected Calcium Phosphorus Magnesium Total Bilirubin AST ALT Alkaline Phosphatase Total Protein Albumin Globulin Albumin/Globulin Ratio Ur Collection Type Catheter Urine Color Lt-Yellow Urine Clarity Clear Urine pH 6.5 Ur Specific Couch 1.007 Urine Protein 1+ A Urine Glucose (UA) Negative Urine Ketones Negative Urine Blood 1+ A Urine Nitrite Negative Urine Bilirubin Negative Urine Urobilinogen (Auto) Negative Ur Leukocyte Esterase Negative Urine RBC 5 H Urine WBC 2 Ur Squamous Epith Cells 1 Urine Bacteria Rare Ur Random Creatinine 53 52 U Random Total Protein 68 H Hepatitis A IgM Ab Non Reactive Hep Bs Antigen Non Reactive Hep B Core IgM Ab Non Reactive Hepatitis C Antibody Non Reactive Blood Type Antibody Screen Crossmatch Blood Bank Wristband ID 12/15/24 12/15/24 04:59 06:14 WBC 8.0 RBC 2.63 L Hgb 6.8 L* Hct 21.8 L* MCV 83 MCH 25.9 MCHC 31.2 RDW Std Deviation 46.0 Plt Count 285 Neut % (Auto) 64 Lymph % (Auto) 24 Merrick % (Auto) 8 Eos % (Auto) 5 Baso % (Auto) 0 Neut # (Auto) 5.1 Lymph # (Auto) 1.9 Merrick # (Auto) 0.6 Eos # (Auto) 0.4 Baso # (Auto) 0.0 Immature Gran # (Auto) 0.03 H Absolute Nucleated RBC 0.00 Immature Gran % 0 Nucleated RBC % 0 Smear Path Review Sent to Pathologist PT 10.9 INR 1.0 APTT 29.5 Sodium 142 Potassium 4.3 Chloride 106 Carbon Dioxide 22.1 Anion Gap 14 BUN 47 H Creatinine 5.1 H* Estim Creat Clear Calc 15.0 L eGFR 10 L* BUN/Creatinine Ratio 9 L Glucose 153 H Calculated Osmolality 298 H Calcium 8.3 Corrected Calcium 8.6 Phosphorus 6.2 H Magnesium 1.6 Total Bilirubin < 0.2 L AST 13 ALT 10 Alkaline Phosphatase 81 Total Protein 6.0 Albumin 3.6 Globulin 2.4 Albumin/Globulin Ratio 1.5 Ur Collection Type Urine Color Urine Clarity Urine pH Ur Specific Couch Urine Protein Urine Glucose (UA) Urine Ketones Urine Blood Urine Nitrite Urine Bilirubin Urine Urobilinogen (Auto) Ur Leukocyte Esterase Urine RBC Urine WBC Ur Squamous Epith Cells Urine Bacteria Ur Random Creatinine U Random Total Protein Hepatitis A IgM Ab Hep Bs Antigen Hep B Core IgM Ab Hepatitis C Antibody Blood Type O Positive Antibody Screen NEGATIVE Crossmatch See Detail Blood Bank Wristband ID Yes Quality Measures Quality Measures VTE prophylaxis Assessment & Plan Assessment Current Active Medications: Generic Name Dose Route Start Last Admin Trade Name Freq PRN Reason Stop Dose Admin Acetaminophen 650 mg 12/10/24 23:48 12/14/24 11:56 Acetaminophen 325 Mg Tablet PO 01/09/25 23:47 650 mg Q6H PRN Administration PAIN SCALE 1-3 (mild Buspirone HCl 10 mg 12/11/24 21:00 12/14/24 20:46 Buspirone Hcl 5 Mg Tablet PO 01/10/25 20:59 10 mg HS CLEMENTINE Administration Calcium Acetate 667 mg 12/13/24 12:00 12/15/24 08:07 Calcium Acetate 667 Mg Tablet PO 01/12/25 11:59 667 mg TIDWM CLEMENTINE Administration Carvedilol 12.5 mg 12/14/24 08:00 12/15/24 08:07 Carvedilol 12.5 Mg Tablet PO 01/13/25 07:59 Not Given BIDWM CLEMENTINE Citric Acid/Sodium Citrate 30 ml 12/12/24 09:00 12/15/24 08:07 Citric Acid/Sodium Citr 15 Ml Udc (Bicitra) PO 01/11/25 08:59 30 ml BID CLEMENTINE Administration Dextrose 25 ml 12/10/24 23:51 Dextrose 50%-Water Inj 50 Ml Syringe IV 01/09/25 23:50 Q15MIN PRN BG 50-70 responsive npo pt Dextrose 50 ml 12/10/24 23:51 12/13/24 11:33 Dextrose 50%-Water Inj 50 Ml Syringe IV 01/09/25 23:50 50 ml Q15MIN PRN Administration BG <50 OR BG <70 & pt unresponsive Glucagon 1 mg 12/10/24 23:51 Glucagon Inj 1 Mg Vial IM Q15MIN PRN BG <70, and no IV access Hydroxyzine HCl 25 mg 12/13/24 21:00 12/14/24 20:46 Hydroxyzine Hcl 25 Mg Tablet PO 01/12/25 20:59 25 mg HS CLEMENTINE Administration Ceftriaxone Sodium/Dextrose 2 gm in 50 mls @ 100 mls/hr 12/11/24 09:15 12/15/24 08:07 Rocephin/D5w 2gm IV 12/18/24 09:14 100 mls/hr QDAY CLEMENTINE Administration Insulin Glargine 18 unit 12/15/24 21:00 Insulin Glargine (Lantus) 5 Unit/0.05 Ml (Per 5 Units) SC 01/14/25 20:59 HS CLEMENTINE Insulin Human Lispro 0 unit 12/11/24 07:30 12/15/24 08:20 Insulin Lispro (Admelog) 1 Unit/0.01 Ml Unit SC 01/10/25 07:29 Not Given ACHS CLEMENTINE Protocol Nifedipine 60 mg 12/15/24 09:00 12/15/24 08:52 Nifedipine Xl 30 Mg Tabcr PO 01/14/25 08:59 Not Given QDAY CLEMENTINE Ondansetron HCl 4 mg 12/10/24 23:48 12/11/24 01:17 Ondansetron Inj 2 Mg/Ml Inj 2 Ml IVP 01/09/25 23:47 4 mg Q6H PRN Administration NAUSEA OR VOMITING Protocol Pantoprazole Sodium 40 mg 12/12/24 09:00 12/15/24 08:08 Pantoprazole 40 Mg Tablet PO 01/10/25 08:59 40 mg QDAY CLEMENTNIE Administration Sennosides 1 tab 12/11/24 09:00 12/15/24 08:22 Senna Tablet PO 01/10/25 08:59 Not Given QDAY CLEMENTINE Protocol Sodium Chloride 3 ml 12/11/24 14:16 12/13/24 08:41 Sodium Chloride Rt Katherine 0.9% 3 Ml Nebu INH 01/10/25 14:15 3 ml PRN PRN Administration SOLN Plan Woodrufframin Cedillo is a 44-year-old female with past medical history of insulin-dependent type 2 diabetes, hypertension, GERD, history of valley fever untreated presented to the ED on 12/10 with episode of left flank pain, nausea/vomiting and chills will be admitted for hypertensive emergency requiring close monitoring along with acute renal failure requiring urology and nephrology consultation and IV antibiotics for cystitis #Acute kidney injury Likely multifactorial; suspecting pre-renal ischemic ATN vs obstructive etiology vs pre-renal from hypertensive emergency. Patient found to have pyelonephritis and seems to have vesicular ureteral reflux. CT showed numerous b/l nonobstructing renal caliculi, mod b/l hydronephrosis wo ureteral calculi, cystitis pattern Cr continues to stay elevated despite making good urine; patient clinically looks relatively well otherwise, Patient endorses having 3/4 UTI's per year. With hydronephrosis, biopsy is contraindicated; however, can potentially biopsy from renal cortex not medulla. Consider biopsy if repeat UA shows continued protein loss with resolution of UTI. Ulytes wnl. Plan: -Plan to get HD today -CTM chem and urine output -Urology consulted, recs appreciated -F/u repeat UA, urine protein and UCr, DEMARCUS, ANCA, C3/C4, IgA, hep panel -F/u NM renal scan -Avoid nephrotoxic agents -Renally dose medications -Replete electrolytes as needed and follow-up with morning labs #Acute urinary retention #Bilateral hydronephrosis #Cystitis #Complicated UTI, nephrolithiasis #Hematuria #Hypertensive emergency, improving #Hypertension #Insulin-dependent type 2 diabetes #GERD -Managed per primary team Thank you for allowing us to take part in the care of Ms. Cedillo Plan of care discussed with attending, Dr. Miriam Martinez MD PGY-1 Attending Provider Attestation/Addendum Patient seen and examined with resident physician Dr. Martinez. Note reviewed, agree with findings and recommendations. SAPPHIRE probably related to prerenal azotemia//ischemic ATN(etiology still remains unclear). CT showed moderate hydronephrosis with the bilateral renal calculi. Doubt renal calculi is the cause for hydronephrosis. Patient seems to have vesicular ureteral reflux. No biopsy with hydronephrosis. Patient needs a Stone workup as an outpatient. Patient might need urology evaluation as outpatient. Currently on antibiotics. Patient with a worsening azotemia-patient clinically do not seem to be in fluid overload. Agree with phosphorus and potassium binders. Plan of care discussed with Dr. Jane. Ssupect recovery phase of ATN. Will go ahead and do temporary dialysis. Catheter placement ordered. Kidney biopsy ordered. Patient of note noted to have proteinuria and hematuria. Urology evaluation pending
--- NOTE | 2024-12-15 10:38 | ESPR_ITS ---
<Statement entered by Joyce Jane MD - 12/23/24 07:46> I reviewed above note and agree with findings and plans. I have also personally examined the patient with medicine team and went over assessment and plan with medical team including international operations manager and resident physician. Documentation for date of: 12/15/24 Senior resident attestation: Patient evaluated and examined at the bedside, plan of care discussed with rest of the team including my attending physician, except as noted. Patient creatinine continues to uptrend, slab installer Dr Pineda recommended starting Hemodialysis as no improvement in renal funciton noted, due to ATN she might need INSPECTION MANAGER in the short term with chance of possibly recovering renal function, within the next 3 months. pending autoimmune workup labs, pending Biopsy. Also noted anemia on labs , 1 prbc was transfused. Quresh PGY3 Subjective Subjective Interval history: Patient was seen and examined at bedside. A.m. vitals and labs reviewed. Patient's autoimmune panel result is still pending. Possible renal biopsy despite hydronephrosis. Today, patient's creatinine worsened from 4.8 to 5.1. Patient's hemoglobin level dropped to 6.8. Per nephrology, she is planned to get dialysis today. Patient looked overwhelmed and anxious with tears. Urine output was +1900ml with I/O balance of -715ml. Urine in cehng bag was clean yellow. Denied any abdominal pain, flank pain, chest pain, headache, dizziness, fevers or chills. Exam Vital Signs Temp Pulse Resp BP Pulse Ox O2 Del Method 97.7 F 86 15 159/83 H 97 Room Air 12/15/24 07:52 12/15/24 07:52 12/15/24 07:52 12/15/24 07:52 12/15/24 07:52 12/15/24 04:00 Narrative Exam GENERAL: Awake, trembling, answering questions appropriately, appears stated age, obese HEENT: NC/AT. Moist mucosa. PERRLA/EOMI. CARDIO: Heart RRR, no obvious murmurs, no JVD. PULM: No coughing or visible SOB. Lungs CTA B/L. GI: Abdomen soft, No abdominal pain or flank pain on palpitation, No guarding or rebound tenderness noted. [place]gmi apparent SKIN/MSK/EXT: Non-pitting edema bilateral lower extremities. No wounds/discoloration/rashes/amputations. +Pedal pulses present B/L. NEURO: Oriented x3, Moves extremities x4, no focal neurologic deficits noted Objective Labs 12/16/24 04:42 12/16/24 04:42 Labs: Laboratory Results - last 24 hr 12/13/24 12/14/24 12/15/24 04:55 08:45 04:59 WBC 8.0 RBC 2.63 L Hgb 6.8 L* Hct 21.8 L* MCV 83 MCH 25.9 MCHC 31.2 RDW Std Deviation 46.0 Plt Count 285 Neut % (Auto) 64 Lymph % (Auto) 24 Cherry % (Auto) 8 Eos % (Auto) 5 Baso % (Auto) 0 Neut # (Auto) 5.1 Lymph # (Auto) 1.9 Cherry # (Auto) 0.6 Eos # (Auto) 0.4 Baso # (Auto) 0.0 Immature Gran # (Auto) 0.03 H Absolute Nucleated RBC 0.00 Immature Gran % 0 Nucleated RBC % 0 Smear Path Review Sent to Pathologist PT 10.9 INR 1.0 APTT 29.5 Sodium 142 Potassium 4.3 Chloride 106 Carbon Dioxide 22.1 Anion Gap 14 BUN 47 H Creatinine 5.1 H* Estim Creat Clear Calc 15.0 L eGFR 10 L* BUN/Creatinine Ratio 9 L Glucose 153 H Calculated Osmolality 298 H Calcium 8.3 Corrected Calcium 8.6 Phosphorus 6.2 H Magnesium 1.6 Total Bilirubin < 0.2 L AST 13 ALT 10 Alkaline Phosphatase 81 Total Protein 6.0 Albumin 3.6 Globulin 2.4 Albumin/Globulin Ratio 1.5 Ur Collection Type Catheter Urine Color Lt-Yellow Urine Clarity Clear Urine pH 6.5 Ur Specific [place] 1.007 Urine Protein 1+ A Urine Glucose (UA) Negative Urine Ketones Negative Urine Blood 1+ A Urine Nitrite Negative Urine Bilirubin Negative Urine Urobilinogen (Auto) Negative Ur Leukocyte Esterase Negative Urine RBC 5 H Urine WBC 2 Ur Squamous Epith Cells 1 Urine Bacteria Rare Hepatitis A IgM Ab Non Reactive Hep Bs Antigen Non Reactive Hep B Core IgM Ab Non Reactive Hepatitis C Antibody Non Reactive Blood Type Antibody Screen Crossmatch Blood Bank Wristband ID 12/15/24 06:14 WBC RBC Hgb Hct MCV MCH MCHC RDW Std Deviation Plt Count Neut % (Auto) Lymph % (Auto) Cherry % (Auto) Eos % (Auto) Baso % (Auto) Neut # (Auto) Lymph # (Auto) Cherry # (Auto) Eos # (Auto) Baso # (Auto) Immature Gran # (Auto) Absolute Nucleated RBC Immature Gran % Nucleated RBC % Smear Path Review PT INR APTT Sodium Potassium Chloride Carbon Dioxide Anion Gap BUN Creatinine Estim Creat Clear Calc eGFR BUN/Creatinine Ratio Glucose Calculated Osmolality Calcium Corrected Calcium Phosphorus Magnesium Total Bilirubin AST ALT Alkaline Phosphatase Total Protein Albumin Globulin Albumin/Globulin Ratio Ur Collection Type Urine Color Urine Clarity Urine pH Ur Specific [place] Urine Protein Urine Glucose (UA) Urine Ketones Urine Blood Urine Nitrite Urine Bilirubin Urine Urobilinogen (Auto) Ur Leukocyte Esterase Urine RBC Urine WBC Ur Squamous Epith Cells Urine Bacteria Hepatitis A IgM Ab Hep Bs Antigen Hep B Core IgM Ab Hepatitis C Antibody Blood Type O Positive Antibody Screen NEGATIVE Crossmatch See Detail Blood Bank Wristband ID Yes Quality Measures Quality Measures VTE prophylaxis Assessment & Plan Assessment Current Active Medications: Generic Name Dose Route Start Last Admin Trade Name Freq PRN Reason Stop Dose Admin Acetaminophen 650 mg 12/10/24 23:48 12/14/24 11:56 Acetaminophen 325 Mg Tablet PO 01/09/25 23:47 650 mg Q6H PRN Administration PAIN SCALE 1-3 (mild Buspirone HCl 10 mg 12/11/24 21:00 12/14/24 20:46 Buspirone Hcl 5 Mg Tablet PO 01/10/25 20:59 10 mg HS CLEMENTINE Administration Calcium Acetate 667 mg 12/13/24 12:00 12/15/24 08:07 Calcium Acetate 667 Mg Tablet PO 01/12/25 11:59 667 mg TIDWM CLEMENTINE Administration Carvedilol 12.5 mg 12/14/24 08:00 12/15/24 08:07 Carvedilol 12.5 Mg Tablet PO 01/13/25 07:59 Not Given BIDWM CLEMENTINE Citric Acid/Sodium Citrate 30 ml 12/12/24 09:00 12/15/24 08:07 Citric Acid/Sodium Citr 15 Ml Udc (Bicitra) PO 01/11/25 08:59 30 ml BID CLEMENTINE Administration Dextrose 25 ml 12/10/24 23:51 Dextrose 50%-Water Inj 50 Ml Syringe IV 01/09/25 23:50 Q15MIN PRN BG 50-70 responsive npo pt Dextrose 50 ml 12/10/24 23:51 12/13/24 11:33 Dextrose 50%-Water Inj 50 Ml Syringe IV 01/09/25 23:50 50 ml Q15MIN PRN Administration BG <50 OR BG <70 & pt unresponsive Glucagon 1 mg 12/10/24 23:51 Glucagon Inj 1 Mg Vial IM Q15MIN PRN BG <70, and no IV access Hydroxyzine HCl 25 mg 12/13/24 21:00 12/14/24 20:46 Hydroxyzine Hcl 25 Mg Tablet PO 01/12/25 20:59 25 mg HS CLEMENTINE Administration Ceftriaxone Sodium/Dextrose 2 gm in 50 mls @ 100 mls/hr 12/11/24 09:15 12/15/24 08:07 Rocephin/D5w 2gm IV 12/18/24 09:14 100 mls/hr QDAY CLEMENTINE Administration Insulin Glargine 18 unit 12/15/24 21:00 Insulin Glargine (Lantus) 5 Unit/0.05 Ml (Per 5 Units) SC 01/14/25 20:59 HS CLEMENTINE Insulin Human Lispro 0 unit 12/11/24 07:30 12/15/24 08:20 Insulin Lispro (Admelog) 1 Unit/0.01 Ml Unit SC 01/10/25 07:29 Not Given ACHS [facility] Protocol Nifedipine 60 mg 12/15/24 09:00 12/15/24 08:52 Nifedipine Xl 30 Mg Tabcr PO 01/14/25 08:59 Not Given QDAY CLEMENTINE Ondansetron HCl 4 mg 12/10/24 23:48 12/11/24 01:17 Ondansetron Inj 2 Mg/Ml Inj 2 Ml IVP 01/09/25 23:47 4 mg Q6H PRN Administration NAUSEA OR VOMITING Protocol Pantoprazole Sodium 40 mg 12/12/24 09:00 12/15/24 08:08 Pantoprazole 40 Mg Tablet PO 01/10/25 08:59 40 mg QDAY CLEMENTINE Administration Sennosides 1 tab 12/11/24 09:00 12/15/24 08:22 Senna Tablet PO 01/10/25 08:59 Not Given QDAY [facility] Protocol Sodium Chloride 3 ml 12/11/24 14:16 12/13/24 08:41 Sodium Chloride Rt Katherine 0.9% 3 Ml Nebu INH 01/10/25 14:15 3 ml PRN PRN Administration SOLN Plan 44-year-old female with past medical history of insulin-dependent type 2 diabetes, hypertension, GERD, history of valley fever presented to the ED on 12/10 with episode of left flank pain, nausea/vomiting and chills will be admitted for hypertensive emergency requiring close monitoring along with acute renal failure requiring urology and nephrology consultation and IV antibiotics for cystitis #Acute renal failure 2/2 Acute tubular necrosis -12/15: Cr:5.1, BUN:47 -Repeat UA 12/14 Urine protein +1 Urine blood +1 RBC 5 -Currently difficult to do kidney biopsy due to hydronephrosis. -Urine output was +1900ml with I/O balance of -715ml. Plan: -Nephrology consulted, Dr. Pierre, ordered nuclear renal scan, IgA levels for IgA nephropathy, Hepatitis A/B titers, ANCA titers, pending results, appreciate recommendations -Avoid nephrotoxic agents -Renally dose medications -Replete electrolytes as needed and follow-up with morning labs -Nephrology Dr. Pineda talked to IR who agreed to do kidney biopsy despite hydronephrosis. -Per nephrology, patient is planned to do dialysis today. #Acute urinary retention #Bilateral hydronephrosis #Cystitis #Complicated UTI, nephrolithiasis #Hematuria -On exam, patient no longer has left flank flank with CVA tenderness -CT abdomen pelvis shows a thick-walled cavitary lesion in the right middle lobe and a 22 mm pulmonary nodule in the anterior right lower lobe, numerous bilateral nonobstructing renal calculi, moderate bilateral hydronephrosis without calculi and cystitis -Based on CTAP presentation, urinary retention due to intake of meclizine was suspected as patient started to take it 1wk everyday prior to coming to the hospital. -Renal Ultrasound (12/11/2024): Moderate bilateral hydronephrosis -Renal Ultrasound (12/12/2024): Moderate bilateral hydronephrosis. (Post Day 1 cheng catheter) Plan: -Advised to stop taking meclizine. -Continue IV ceftriaxone 2g IV qd (12/11-12/18) -Consulted with Urology, Dr. Friedman. Will continue to wait for several days and will repeat renal ultrasound to monitor her condition. Patient will do cystoscopy in outpatient setting. #Hypertensive emergency, improving #Hypertension Patient has significant history of hypertension on home antihypertensives Presenting to the ED with acute renal failure and elevated systolic pressure in the 200s Plan: - continue Nifedipine 30mg PO qd - Coreg 6.25mg PO bid uptitrated to 12.5 PO BID today - discontinued Hydralazine 50mg PO TID 12/13/24 #Insulin-dependent type 2 diabetes Pertinent labs: 06/2024 A1C 11.1 12/11/24 A1C 8.0 Patient apparently takes 30 units of long-acting insulin twice a day Plan: Insulin glargine 15 units at bedtime Sliding scale #History of Valley Fever -CTAP(03/21/2024):30 mm thick-walled cavitary lesion partially visualized right midlung,, 22 mm pulmonary nodule anterior right lower lobe -CXR(07/16/2024): Poorly defined nodular density 18 mm in the right lower lobe, -CXR (12/10/2024):Opacity right base which may represent a pulmonary mass, 19 mm -CTAP(12/10/2024): thick walled 25 mm cavitary lesion in the right middle lobe and 22mm pulmonary nodule anterior right lower lobe Plan: -Fairly stable right lung pulmonary nodule. -Will continue to monitor. #GERD Chronic medical problems: All pertinent to the following presentation Plan: -Continue Pantoprazole 40 mg PO QD Health Maintenance: Lines: PIV Diet: Renal and carb consistent low Bowel: Senna GI prophylaxis: Pantoprazole 40 mg PO QD DVT prophylaxis: SCD Dispo: Nephrology neurology recommendations, IV antibiotics for cystitis Code: Full Assessment and plan discussed with my attending physician Dr. Jane and Dr. Kim (PGY-3) Dr. Silva (PGY-1)- Internal medicine resident
[2024-12-15] MEDS: ONDANSETRON INJ 2 MG/ML INJ 2 ML 4 MG IVP (10:49)
[2024-12-15] MEDS: HEPARIN SOD LOCK SYR 100 UNIT/ML 500 UNIT INTRACATH (15:01)
[2024-12-15] MEDS: LIDOCAINE HCL 1% 20 ML VIAL INFL (15:01)
[2024-12-15] MEDS: SODIUM CHLORIDE 0.9% 500 ML 500 ML 20 ML IV (15:05)
[2024-12-15] MEDS: fentaNYL CIT INJ 50 mCg/ML AMP 2ML 75 MCG IVP (15:09)
--- NOTE | 2024-12-15 15:09 | PC.SS ---
Rounding note: Receiving dialysis today, will get temporary Tunnel Catheter. Possible renal biopsy. Patient may be candidate for outpatient hemodialysis. Discharge plan: Home
[2024-12-15 16:03] LABS: HIV (1&2) Antibody Rapid Non-Reactive
[2024-12-15] MEDS: HEPARIN SOD INJ 5000 UNIT/ML VIAL 10 ML 3800 UNIT INTRACATH (16:07)
[2024-12-15] MEDS: HYDROcodone/APAP 5/325 TABLET 1 TAB PO (16:39)
[2024-12-15] MEDS: NIFEdipine XL 30 MG TABCR 60 MG PO (16:40)
--- NOTE | 2024-12-15 21:30 | PC.NURSE ---
called Dr. Sommers regarding patient's BP 173/83, HR in the 70s. Patient is asymptomatic. Patient has no PRN BP meds. Per doctor will look into patient's chart, no new orders received.
[2024-12-15] MEDS: INSULIN GLARGINE (Lantus) 5 UNIT/0.05 ML (PER 5 UNITS) 18 UNIT SC (22:04)
[2024-12-15] MEDS: INSULIN LISPRO (AdmeLOG) 1 UNIT/0.01 ML UNIT SC (22:05)
[2024-12-15 22:25] LABS: Hematocrit 26.9 % (36.0-46.0)
[2024-12-15 22:29] LABS: Hemoglobin 8.5 g/dL (12.0-16.0)
[2024-12-16] VITALS (34 sets, daily range): BP systolic 133–169; BP diastolic 65–100; PULSE 71–86; RESP 11–20; TEMP 36.7–37.6; O2SAT 93–100; BMI 37.8
[2024-12-16 06:03] LABS: Basophils # (Auto) 0.1 Thou/mm3 (0.0-0.2); Basophils % (Auto) 1 % (0-2.5); Eosinophils # (Auto) 0.4 Thou/mm3 (0.0-0.5); Eosinophils % (Auto) 4 % (0-10); Hematocrit 27.8 % (36.0-46.0); Immature Granulocytes Auto 0.03 Thou/mm3 (0.00-0.00); Lymphocytes # (Auto) 1.8 Thou/mm3 (1.0-4.8); Lymphocytes % (Auto) 20 % (10-50); Mean Corpuscular HGB Conc 31.7 g/dl (31.0-37.0); Mean Corpuscular Hemoglobin 25.5 pg (25.0-35.0); Mean Corpuscular Volume 81 fL (80-100); Monocytes # (Auto) 0.7 Thou/mm3 (0.0-0.8); Monocytes % (Auto) 7 % (0-12); Neutrophils # (Auto) 6.2 Thou/mm3 (1.8-7.7); Neutrophils % (Auto) 68 % (37-80); Nucleated Red Blood Cell # 0.00 Thou/mm3 (0.00-0.00); Nucleated Red Blood Cell % 0 /100 WBC (0); Platelet Count 308 Thou/mm3 (140-440); RDW Standard Deviation 46.9 fL (36.4-46.3); Red Blood Count 3.45 Miln/mm3 (4.00-5.20); White Blood Count 9.2 Thou/mm3 (3.6-11.0)
[2024-12-16 06:38] LABS: Alanine Aminotransferase 16 U/L (10-49); Albumin, Serum 4.0 gm/dL (3.5-5.0); Albumin/Globulin Ratio 1.4 (1.2-2.2); Alkaline Phosphatase 103 U/L (46-116); Anion Gap 15 (7-16); Aspartate Amino Transferase 25 U/L (0-34); BUN/Creatinine Ratio 8 Ratio (12-20); Bilirubin,Total < 0.2 mg/dL (0.3-1.2); Blood Urea Nitrogen 45 mg/dL (9-23); Calcium 8.7 mg/dL (8.3-10.6); Calcium (Corrected) 8.7 mg/dL (8.5-10.1); Carbon Dioxide 22.7 mMol/L (20.0-31.0); Chloride 105 mMol/L (98-107); Creatinine (Component) 5.4 mg/dL (0.6-1.3); Estimated Creatinine Clearance 14.1 mL/min (>60); Globulin 2.9 gm/dL (2.3-3.5); Glucose 166 mg/dL (74-106); Hemoglobin 8.8 g/dL (12.0-16.0); Magnesium 1.6 mg/dL (1.6-2.6); Osmolality,Calculated 300 (275-295); Phosphorous 6.0 mg/dL (2.4-5.1); Potassium 4.3 mMol/L (3.4-5.1); Sodium 143 mMol/L (136-145); Total Protein 6.9 gm/dL (5.7-8.2); eGFR 10 See Note
--- NOTE | 2024-12-16 08:58 | PC.NURSE ---
consulted Dr. Pineda regarding medical kidney biopsy, patient is in dialysis now. Ok to proceed with kidney biopsy now, will lemon picker patient to have procedure done
--- NOTE | 2024-12-16 09:00 | XR_ITS ---
Examination: CT-guided percutaneous medical renal biopsy lower pole right kidney CT pelvis without intravenous contrast Date and time: December 16, 2024 0957 hours INDICATIONS: Abnormal proteinuria renal insufficiency on laboratory examination this week Informed consent provided. A timeout was completed verifying correct patient, procedure, site and positioning. Technique: Axial 3 mm sections were obtained for localization of the lower pole right kidney. Appropriate area is marked. The patient's site was prepped and draped in sterile fashion Maximal sterile barrier technique utilized, including hand hygiene Local anesthesia was obtained with 1% lidocaine. Low dose protocols were performed. One or more of the following dose reduction techniques were used; automated exposure control, adjustment of the mA and/or KV according to patient size, use of iterative reconstruction technique. Utilizing CT fluoroscopic guidance 2 core biopsies obtained of the lower pole right kidney Patient appears in stable condition during this procedure. At completion of the procedure, the patient is in satisfactory condition. Estimated blood loss 4 cc Complete pathology report to follow. Impression: Successful CT-guided percutaneous medical renal biopsy lower pole right kidney
--- NOTE | 2024-12-16 09:07 | ESPR_ITS ---
Documentation for date of: 12/16/24 Subjective Subjective Interval history: Ms. Cedillo is a 44-year-old female with past medical history of insulin- dependent type 2 diabetes, hypertension, GERD, history of valley fever untreated presented to the ED on 12/10 with episode of left flank pain, nausea/vomiting and chills. Patient states that the chills started roughly an hour ago but that she has been having progressively worsening left flank pain radiating to her back. Patient denies having any dysuria but does state that she has been having lilia hematuria for several days. Patient denies having any fevers but she does state that she has been having chills. Patient also complains of suprapubic pain and mentions that she feels pain near her ovaries. Patient has not seen PCP regarding the symptoms but she was seen several weeks ago for GERD like symptoms and was given medications. Patient otherwise denies having any concerning symptoms such as chest pain, dizziness, shortness of breath. In the ED, patient presented in hypertensive emergency with a blood pressure 187/83, other vitals wnl. Pertinent lab findings included WBC of 9, hemoglobin 7.9, potassium of 5.4, BUN of 31, creatinine 3.9, EGFR of 14, magnesium 1.6, troponin less than 0.02, BNP of 235, urinalysis shows hematuria and mild pyuria but no bacteria. Chest x-ray shows mild prominence of ventricles along with opacity in the right base concerning for pulmonary mass, EKG shows sinus rhythm without any concerning ST changes and CT abdomen pelvis shows a thick-walled cavitary lesion in the right middle lobe and a 22 mm pulmonary nodule in the anterior right lower lobe, numerous bilateral nonobstructing renal calculi, moderate bilateral hydronephrosis without calculi and cystitis. Patient will be admitted for hypertensive emergency requiring close monitoring along with acute renal failure requiring urology and nephrology consultation and IV antibiotics for cystitis Upon seeing the patient currently, she is on Mg Sulfate, Ceftriaxone, Carvedilol 6.25 mg, and maintenance IV fluids with a slightly improved blood pressure of 168/88 with the rest of vitals wnl. Patient states she is currently feeling much better now. States that she still has some nausea, L flank pain radiating to back and some dizziness when she stands up for too long. Patient states she has noticed blood in her urine today and ever since March. Patient endorses having bowel movements. Patient denies fever, headache, chest pain, shortness of breath, vomiting. 12/12/2024 No acute overnight events. Patient was seen and examined at bedside. Patient's Cr worsened this morning to 4.3 despite making urine with urinary catheter, so want to repeat renal US to see if hydronephrosis (or other obstruction) persisted. Checking urine lytes for possible rta. Patient denies fever, headache, chest pain, shortness of breath, nausea, vomiting. 12/13/2024 No acute overnight events. Patient was seen and examined at bedside. Patient's vitals and labs reviewed. Patient's Cr continues to worsen depsite making plenty of good urine. Patient endorses having 3/4 UTI's per year. Patient denies fever, headache, chest pain, shortness of breath, nausea, vomiting. 12/14/24: Patient was seen and examined at bedside with family member. No new complaints. Denies chest pain, SOB, fever, flank pain or abdominal pain. Cr and BUN continue to stay elevated despite making good urine. 12/15/24: Patient was seen and examined at bedside with family member. Patient was informed that she will need hemodialysis. No new complaints. Denies chest pain, SOB, fever, flank pain or abdominal pain. Cr and BUN continue to stay elevated despite making good urine. 12/16/24: Patient was seen and examined at bedside with family members. Patient received dialysis catheter yesterday. Plan to get kidney biopsy today before starting dialysis. No new complaints. Denies chest pain, SOB, fever, flank pain or abdominal pain. Cr and BUN continue to stay elevated despite making good urine. Exam Vital Signs Temp Pulse Resp BP Pulse Ox O2 Del Method O2 Flow Rate 98.4 F 79 17 153/100 H 94 L Room Air 2 12/16/24 08:37 12/16/24 08:45 12/16/24 08:37 12/16/24 08:45 12/16/24 08:37 12/16/24 08:00 12/15/24 17:23 Narrative Exam GENERAL: a&o x3, no acute distress, resting in bed HEENT: NC/AT. Moist mucosa. PERRLA/EOMI. R IJ dialysis catheter CARDIO: Heart RRR, no murmurs appreciated PULM: Lungs CTA B/L, no resp distress ABD: soft, distended with no abdominal tenderness SKIN: No edema bilateral lower extremities. No wounds/discoloration/rashes/amputations. +Pedal pulses present B/L. MSK: No joint swelling or pain/tenderness noted. EXT: upper and lower extremities atraumatic in appearance, able to move all 4 extremities. NEURO: no focal neurologic deficits noted Objective Labs 12/16/24 04:42 12/16/24 04:42 Labs: Laboratory Results - last 24 hr 12/15/24 12/15/24 12/15/24 04:59 06:14 21:58 WBC RBC Hgb 8.5 L D Hct 26.9 L MCV MCH MCHC RDW Std Deviation Plt Count Neut % (Auto) Lymph % (Auto) [place] % (Auto) Eos % (Auto) Baso % (Auto) Neut # (Auto) Lymph # (Auto) [place] # (Auto) Eos # (Auto) Baso # (Auto) Immature Gran # (Auto) Absolute Nucleated RBC Immature Gran % Nucleated RBC % Sodium Potassium Chloride Carbon Dioxide Anion Gap BUN Creatinine Estim Creat Clear Calc eGFR BUN/Creatinine Ratio Glucose Calculated Osmolality Calcium Corrected Calcium Phosphorus Magnesium Total Bilirubin AST ALT Alkaline Phosphatase Total Protein Albumin Globulin Albumin/Globulin Ratio HIV 1&2 Antibody Rapid Non-Reactive Blood Type O Positive Antibody Screen NEGATIVE Crossmatch See Detail Blood Bank Wristband ID Yes 12/16/24 04:42 WBC 9.2 RBC 3.45 L Hgb 8.8 L Hct 27.8 L MCV 81 MCH 25.5 MCHC 31.7 RDW Std Deviation 46.9 H Plt Count 308 Neut % (Auto) 68 Lymph % (Auto) 20 [place] % (Auto) 7 Eos % (Auto) 4 Baso % (Auto) 1 Neut # (Auto) 6.2 Lymph # (Auto) 1.8 [place] # (Auto) 0.7 Eos # (Auto) 0.4 Baso # (Auto) 0.1 Immature Gran # (Auto) 0.03 H Absolute Nucleated RBC 0.00 Immature Gran % 0 Nucleated RBC % 0 Sodium 143 Potassium 4.3 Chloride 105 Carbon Dioxide 22.7 Anion Gap 15 BUN 45 H Creatinine 5.4 H* Estim Creat Clear Calc 14.1 L eGFR 10 L* BUN/Creatinine Ratio 8 L Glucose 166 H Calculated Osmolality 300 H Calcium 8.7 Corrected Calcium 8.7 Phosphorus 6.0 H Magnesium 1.6 Total Bilirubin < 0.2 L AST 25 ALT 16 Alkaline Phosphatase 103 D Total Protein 6.9 Albumin 4.0 Globulin 2.9 Albumin/Globulin Ratio 1.4 HIV 1&2 Antibody Rapid Blood Type Antibody Screen Crossmatch Blood Bank Wristband ID Quality Measures Quality Measures VTE prophylaxis Assessment & Plan Assessment Current Active Medications: Generic Name Dose Route Start Last Admin Trade Name Micheletq PRN Reason Stop Dose Admin Acetaminophen 650 mg 12/10/24 23:48 12/14/24 11:56 Acetaminophen 325 Mg Tablet PO 01/09/25 23:47 650 mg Q6H PRN Administration PAIN SCALE 1-3 (mild Buspirone HCl 10 mg 12/11/24 21:00 12/15/24 22:06 Buspirone Hcl 5 Mg Tablet PO 01/10/25 20:59 10 mg HS CLEMENTINE Administration Calcium Acetate 667 mg 12/13/24 12:00 12/15/24 17:49 Calcium Acetate 667 Mg Tablet PO 01/12/25 11:59 667 mg TIDWM CLEMENTINE Administration Carvedilol 12.5 mg 12/14/24 08:00 12/15/24 16:39 Carvedilol 12.5 Mg Tablet PO 01/13/25 07:59 12.5 mg BIDWM CLEMENTINE Administration Citric Acid/Sodium Citrate 30 ml 12/12/24 09:00 12/15/24 22:06 Citric Acid/Sodium Citr 15 Ml Udc (Bicitra) PO 01/11/25 08:59 30 ml BID CLEMENTINE Administration Dextrose 25 ml 12/10/24 23:51 Dextrose 50%-Water Inj 50 Ml Syringe IV 01/09/25 23:50 Q15MIN PRN BG 50-70 responsive npo pt Dextrose 50 ml 12/10/24 23:51 12/13/24 11:33 Dextrose 50%-Water Inj 50 Ml Syringe IV 01/09/25 23:50 50 ml Q15MIN PRN Administration BG <50 OR BG <70 & pt unresponsive Glucagon 1 mg 12/10/24 23:51 Glucagon Inj 1 Mg Vial IM Q15MIN PRN BG <70, and no IV access Hydroxyzine HCl 25 mg 12/13/24 21:00 12/15/24 22:06 Hydroxyzine Hcl 25 Mg Tablet PO 01/12/25 20:59 25 mg HS CLEMENTINE Administration Ceftriaxone Sodium/Dextrose 2 gm in 50 mls @ 100 mls/hr 12/11/24 09:15 12/15/24 08:07 Rocephin/D5w 2gm IV 12/18/24 09:14 100 mls/hr QDAY CLEMENTINE Administration Sodium Chloride 500 mls @ 20 mls/hr 12/15/24 15:15 12/15/24 15:05 Ns IV 12/16/24 15:14 20 mls/hr .Q24H CLEMENTINE Administration Insulin Glargine 18 unit 12/15/24 21:00 12/15/24 22:04 Insulin Glargine (Lantus) 5 Unit/0.05 Ml (Per 5 Units) SC 01/14/25 20:59 18 unit HS CLEMENTINE Administration Insulin Human Lispro 0 unit 12/16/24 06:15 12/16/24 06:32 Insulin Lispro (Admelog) 1 Unit/0.01 Ml Unit SC 01/15/25 06:14 Not Given Q6HR CLEMENTINE Protocol Nifedipine 60 mg 12/15/24 09:00 12/15/24 08:52 Nifedipine Xl 30 Mg Tabcr PO 01/14/25 08:59 Not Given QDAY CLEMENTINE Ondansetron HCl 4 mg 12/10/24 23:48 12/15/24 10:49 Ondansetron Inj 2 Mg/Ml Inj 2 Ml IVP 01/09/25 23:47 4 mg Q6H PRN Administration NAUSEA OR VOMITING Protocol Pantoprazole Sodium 40 mg 12/12/24 09:00 12/15/24 08:08 Pantoprazole 40 Mg Tablet PO 01/10/25 08:59 40 mg QDAY CLEMENTINE Administration Sennosides 1 tab 12/11/24 09:00 12/15/24 08:22 Senna Tablet PO 01/10/25 08:59 Not Given QDAY CLEMENTINE Protocol Sodium Chloride 3 ml 12/11/24 14:16 12/13/24 08:41 Sodium Chloride Rt Katherine 0.9% 3 Ml Nebu INH 01/10/25 14:15 3 ml PRN PRN Administration SOLN Plan Kacy Cedillo is a 44-year-old female with past medical history of insulin-dependent type 2 diabetes, hypertension, GERD, history of valley fever untreated presented to the ED on 12/10 with episode of left flank pain, nausea/vomiting and chills will be admitted for hypertensive emergency requiring close monitoring along with acute renal failure requiring urology and nephrology consultation and IV antibiotics for cystitis #Acute kidney injury Likely multifactorial; suspecting pre-renal ischemic ATN vs obstructive etiology vs pre-renal from hypertensive emergency. Patient found to have pyelonephritis and seems to have vesicular ureteral reflux. CT showed numerous b/l nonobstructing renal caliculi, mod b/l hydronephrosis wo ureteral calculi, cystitis pattern Cr continues to stay elevated despite making good urine; patient clinically looks relatively well otherwise, Patient endorses having 3/4 UTI's per year. With hydronephrosis, biopsy is contraindicated; however, can potentially biopsy from renal cortex not medulla. Consider biopsy if repeat UA shows continued protein loss with resolution of UTI. Ulytes wnl. Urology thinking neurogenic bladder; recommends intermittent urethral catheterization (1-2x per day) and weight loss may improve bladder function. Plan: -Plan to get renal biopsy first, followed by HD today for 2hrs and then tomorrow for 2.5 hrs. -CTM chem and urine output -Urology consulted, recs appreciated -F/u DEMARCUS, ANCA, C3/C4, IgA -F/u NM renal scan -Avoid nephrotoxic agents -Renally dose medications -Replete electrolytes as needed and follow-up with morning labs #Acute urinary retention #Bilateral hydronephrosis #Cystitis #Complicated UTI, nephrolithiasis #Hematuria #Hypertensive emergency, improving #Hypertension #Insulin-dependent type 2 diabetes #GERD -Managed per primary team Thank you for allowing us to take part in the care of Ms. Cedillo Plan of care discussed with attending, Dr. Miriam Martinez MD PGY-1 Attending Provider Attestation/Addendum Patient seen and examined with resident physician Dr. Martinez. Note reviewed, agree with findings and recommendations. SAPPHIRE probably related to prerenal azotemia//ischemic ATN(etiology still remains unclear). CT showed moderate hydronephrosis with the bilateral renal calculi. Doubt renal calculi is the cause for hydronephrosis. Patient seems to have vesicular ureteral reflux. No biopsy with hydronephrosis. Patient needs a Stone workup as an outpatient. Patient might need urology evaluation as outpatient. Currently on antibiotics. Patient with a worsening azotemia-patient clinically do not seem to be in fluid overload. Agree with phosphorus and potassium binders. Plan of care discussed with Dr. Franco. Ssupect recovery phase of ATN. Will go ahead and do temporary dialysis. IJ PermCath placed by IR. Pending kidney biopsy today Patient on dialysis. Tolerating dialysis without any problems. Hemodialysis for 2 hours, 2K, ultrafiltration 0 L, Epogen 6000, no heparin ordered. Plan of care discussed with the dialysis nurse. Please see dialysis flowsheet for further details. Next dialysis scheduled for tomorrow. she has neurogenic bladder. Recommended to DC Oliva catheter and instead try intermittent catheterization until residual urine less than 100 mL. Spoke to family and daughter seems to be willing to do intermittent cath and low. Had a long conversation with urology-Dr. Vidal had seen the patient and think patient needs outpatient dialysis arrangements to be made.
[2024-12-16] MEDS: fentaNYL CIT INJ 50 mCg/ML AMP 2ML 75 MCG IVP (10:03)
--- NOTE | 2024-12-16 11:27 | PC.NURSE ---
1127 patient is awake, alert, breathing unlabored, s/p medical kidney biopsy, dressing dry with no bleeding, report has been given to Lissa TABARES, patient transported to [facility] diaysis room to continue dialysis treatment. Report also given to Philip TABARES who will care for patient while patient is having dialysis treatment.
[2024-12-16] MEDS: EPOETIN ALFA-EPBX INJ 10,000 UNIT/ML VIAL (NON-ESRD) 10000 UNIT SC (12:50)
--- NOTE | 2024-12-16 12:51 | PC.NURSE ---
Patient has not yet returned from procedure/dialysis. computer lab aide contacted RN and reported that the biopsy was completed. Following recovery, the patient will be transported to dialysis.
[2024-12-16] MEDS: HEPARIN SOD INJ 1000 UNIT/ML VIAL 10 ML 3800 UNIT INDWELLCAT (12:56)
--- NOTE | 2024-12-16 13:22 | PC.SS ---
Rounding: Pending renal BX
--- NOTE | 2024-12-16 13:43 | PD.RESPRO ---
Documentation for date of: 12/16/24 Senior resident attestation: Patient evaluated and examined at the bedside, plan of care discussed with rest of the team including my attending physician, except as noted. Nephrology following the patient, TDC catheter was placed, hemodialysis initiated. Patient tolerated dialysis well. Oliva's catheter discontinued. No active complaints, per nephrology they will speak to Dr. Friedman urologist regarding any intervention to relieve hydronephrosis. Pending urology recommendations. Continue on IV antibiotics for complicated UTI. Quresh PGY3 Subjective Subjective Interval history: No Overnight events. Labs reviewed. Patient's creatinine level still increased from 5.1 to 5.4 GFR of 10. Patient is autoimmune panel is still pending. Catheter placement was yesterday, planned for biopsy and hemodialysis today. Patient examined at the bedside. Denies abdominal pain, flank pain, headaches, fevers, chills. Exam Vital Signs Temp Pulse Resp BP Pulse Ox O2 Del Method O2 Flow Rate 98.2 F 75 17 156/89 H 94 L Room Air 3 12/16/24 13:21 12/16/24 13:21 12/16/24 13:21 12/16/24 13:21 12/16/24 13:12/16/24 10:38 12/16/24 10:35 Narrative Exam General: No acute distress, well nourished Eye: PERRL, EOMI, normal conjunctiva, no scleral icterus HENT: Normocephalic, atraumatic, hearing intact to conversation at normal volume, moist oral mucosa Neck: Supple, non-tender, no JVD, no lymphadenopathy Lungs: Non-labored respirations, symmetric chest rise, Clear to auscultate bilaterally Heart: Peripheral pulses intact bilaterally Abdomen: Soft, non-tender, non-distended Musculoskeletal: Normal range of motion and strength Skin: Skin is warm, dry, no rashes or lesions. Psychiatric: Cooperative, appropriate mood and affect Neuro: Cranial nerves II-XII grossly intact. Strength 5/5 throughout. Sensations intact to light touch. Objective Labs 12/17/24 04:33 12/17/24 04:33 Labs: Laboratory Results - last 24 hr 12/15/24 12/15/24 12/15/24 04:59 06:14 21:58 WBC RBC Hgb 8.5 L D Hct 26.9 L MCV MCH MCHC RDW Std Deviation Plt Count Neut % (Auto) Lymph % (Auto) Hoke % (Auto) Eos % (Auto) Baso % (Auto) Neut # (Auto) Lymph # (Auto) Hoke # (Auto) Eos # (Auto) Baso # (Auto) Immature Gran # (Auto) Absolute Nucleated RBC Immature Gran % Nucleated RBC % Sodium Potassium Chloride Carbon Dioxide Anion Gap BUN Creatinine Estim Creat Clear Calc eGFR BUN/Creatinine Ratio Glucose Calculated Osmolality Calcium Corrected Calcium Phosphorus Magnesium Total Bilirubin AST ALT Alkaline Phosphatase Total Protein Albumin Globulin Albumin/Globulin Ratio HIV 1&2 Antibody Rapid Non-Reactive Blood Type O Positive Antibody Screen NEGATIVE Crossmatch See Detail Blood Bank Wristband ID Yes 12/16/24 04:42 WBC 9.2 RBC 3.45 L Hgb 8.8 L Hct 27.8 L MCV 81 MCH 25.5 MCHC 31.7 RDW Std Deviation 46.9 H Plt Count 308 Neut % (Auto) 68 Lymph % (Auto) 20 Hoke % (Auto) 7 Eos % (Auto) 4 Baso % (Auto) 1 Neut # (Auto) 6.2 Lymph # (Auto) 1.8 Hoke # (Auto) 0.7 Eos # (Auto) 0.4 Baso # (Auto) 0.1 Immature Gran # (Auto) 0.03 H Absolute Nucleated RBC 0.00 Immature Gran % 0 Nucleated RBC % 0 Sodium 143 Potassium 4.3 Chloride 105 Carbon Dioxide 22.7 Anion Gap 15 BUN 45 H Creatinine 5.4 H* Estim Creat Clear Calc 14.1 L eGFR 10 L* BUN/Creatinine Ratio 8 L Glucose 166 H Calculated Osmolality 300 H Calcium 8.7 Corrected Calcium 8.7 Phosphorus 6.0 H Magnesium 1.6 Total Bilirubin < 0.2 L AST 25 ALT 16 Alkaline Phosphatase 103 D Total Protein 6.9 Albumin 4.0 Globulin 2.9 Albumin/Globulin Ratio 1.4 HIV 1&2 Antibody Rapid Blood Type Antibody Screen Crossmatch Blood Bank Wristband ID Quality Measures Quality Measures VTE prophylaxis Assessment & Plan Assessment Current Active Medications: Generic Name Dose Route Start Last Admin Trade Name Freq PRN Reason Stop Dose Admin Acetaminophen 650 mg 12/10/24 23:48 12/14/24 11:56 Acetaminophen 325 Mg Tablet PO 01/09/25 23:47 650 mg Q6H PRN Administration PAIN SCALE 1-3 (mild Buspirone HCl 10 mg 12/11/24 21:00 12/15/24 22:06 Buspirone Hcl 5 Mg Tablet PO 01/10/25 20:59 10 mg HS CLEMENTINE Administration Calcium Acetate 667 mg 12/13/24 12:00 12/15/24 17:49 Calcium Acetate 667 Mg Tablet PO 01/12/25 11:59 667 mg TIDWM CLEMENTINE Administration Carvedilol 12.5 mg 12/14/24 08:00 12/15/24 16:39 Carvedilol 12.5 Mg Tablet PO 01/13/25 07:59 12.5 mg BIDWM CLEMENTINE Administration Citric Acid/Sodium Citrate 30 ml 12/12/24 09:00 12/15/24 22:06 Citric Acid/Sodium Citr 15 Ml Udc (Bicitra) PO 01/11/25 08:59 30 ml BID CLEMENTINE Administration Dextrose 25 ml 12/10/24 23:51 Dextrose 50%-Water Inj 50 Ml Syringe IV 01/09/25 23:50 Q15MIN PRN BG 50-70 responsive npo pt Dextrose 50 ml 12/10/24 23:51 12/13/24 11:33 Dextrose 50%-Water Inj 50 Ml Syringe IV 01/09/25 23:50 50 ml Q15MIN PRN Administration BG <50 OR BG <70 & pt unresponsive Glucagon 1 mg 12/10/24 23:51 Glucagon Inj 1 Mg Vial IM Q15MIN PRN BG <70, and no IV access Heparin Sodium (Porcine) 3,800 unit 12/16/24 12:29 12/16/24 12:56 Heparin Sod Inj 1000 Unit/Ml Vial 10 Ml INDWELLCAT 12/30/24 12:28 3,800 unit X1 PRN Administration DIALYSIS Hydroxyzine HCl 25 mg 12/13/24 21:00 12/15/24 22:06 Hydroxyzine Hcl 25 Mg Tablet PO 01/12/25 20:59 25 mg HS CLEMENTINE Administration Sodium Chloride 500 mls @ 20 mls/hr 12/15/24 15:15 12/15/24 15:05 Ns IV 12/16/24 15:14 20 mls/hr .Q24H CLEMENTINE Administration Ceftriaxone Sodium/Dextrose 1 gm in 50 mls @ 100 mls/hr 12/17/24 09:00 Rocephin/D5w 1gm Iv Premix IV 12/24/24 08:59 QDAY CLEMENTINE Insulin Glargine 18 unit 12/15/24 21:00 12/15/24 22:04 Insulin Glargine (Lantus) 5 Unit/0.05 Ml (Per 5 Units) SC 01/14/25 20:59 18 unit HS CLEMENTINE Administration Insulin Human Lispro 0 unit 12/16/24 06:15 12/16/24 06:32 Insulin Lispro (Admelog) 1 Unit/0.01 Ml Unit SC 01/15/25 06:14 Not Given Q6HR CLEMENTINE Protocol Nifedipine 60 mg 12/15/24 09:00 12/15/24 08:52 Nifedipine Xl 30 Mg Tabcr PO 01/14/25 08:59 Not Given QDAY CLEMENTINE Ondansetron HCl 4 mg 12/10/24 23:48 12/15/24 10:49 Ondansetron Inj 2 Mg/Ml Inj 2 Ml IVP 01/09/25 23:47 4 mg Q6H PRN Administration NAUSEA OR VOMITING Protocol Pantoprazole Sodium 40 mg 12/12/24 09:00 12/15/24 08:08 Pantoprazole 40 Mg Tablet PO 01/10/25 08:59 40 mg QDAY CLEMENTINE Administration Sennosides 1 tab 12/11/24 09:00 12/15/24 08:22 Senna Tablet PO 01/10/25 08:59 Not Given QDAY [facility] Protocol Sodium Chloride 3 ml 12/11/24 14:16 12/13/24 08:41 Sodium Chloride Rt Katherine 0.9% 3 Ml Nebu INH 01/10/25 14:15 3 ml PRN PRN Administration SOLN Plan 44-year-old female with past medical history of insulin-dependent type 2 diabetes, hypertension, GERD, history of valley fever presented to the ED on 12/10 with episode of left flank pain, nausea/vomiting and chills will be admitted for hypertensive emergency requiring close monitoring along with acute renal failure requiring urology and nephrology consultation and IV antibiotics for cystitis #Acute renal failure 2/2 Acute tubular necrosis -12/15: Cr:5.1, BUN:47 -Repeat UA 12/14 Urine protein +1 Urine blood +1 RBC 5 -Currently difficult to do kidney biopsy due to hydronephrosis. -Urine output was +1775ml with I/O balance of -1425ml. Plan: -Nephrology consulted, Dr. Pierre, ordered nuclear renal scan, IgA levels for IgA nephropathy, Hepatitis A/B titers, ANCA titers, pending results, appreciate recommendations -Avoid nephrotoxic agents -Renally dose medications -Replete electrolytes as needed and follow-up with morning labs -Nephrology Dr. Pineda talked to IR who agreed to do kidney biopsy despite hydronephrosis. -Per nephrology, patient is planned to do biopsy and dialysis today. #Acute urinary retention #Bilateral hydronephrosis #Cystitis #Complicated UTI, nephrolithiasis #Hematuria -On exam, patient no longer has left flank flank with CVA tenderness -CT abdomen pelvis shows a thick-walled cavitary lesion in the right middle lobe and a 22 mm pulmonary nodule in the anterior right lower lobe, numerous bilateral nonobstructing renal calculi, moderate bilateral hydronephrosis without calculi and cystitis -Based on CTAP presentation, urinary retention due to intake of meclizine was suspected as patient started to take it 1wk everyday prior to coming to the hospital. -Renal Ultrasound (12/11/2024): Moderate bilateral hydronephrosis -Renal Ultrasound (12/12/2024): Moderate bilateral hydronephrosis. Plan: -Advised to stop taking meclizine. -IV ceftriaxone 2g IV qd (12/11-12/16). Now changed to IV ceftriaxone 1g IV qd (12/17-) -Consulted with Urology, Dr. Friedman. Will continue to wait for several days and will repeat renal ultrasound to monitor her condition. Patient will do cystoscopy in outpatient setting. #Hypertensive emergency, improving #Hypertension Patient has significant history of hypertension on home antihypertensives Presenting to the ED with acute renal failure and elevated systolic pressure in the 200s Plan: - continue Nifedipine 30mg PO qd - Coreg 6.25mg PO bid uptitrated to 12.5 PO BID today - discontinued Hydralazine 50mg PO TID 12/13/24 #Insulin-dependent type 2 diabetes Pertinent labs: 06/2024 A1C 11.1 12/11/24 A1C 8.0 Patient apparently takes 30 units of long-acting insulin twice a day Plan: Insulin glargine 15 units at bedtime Sliding scale #History of Valley Fever -CTAP(03/21/2024):30 mm thick-walled cavitary lesion partially visualized right midlung,, 22 mm pulmonary nodule anterior right lower lobe -CXR(07/16/2024): Poorly defined nodular density 18 mm in the right lower lobe, -CXR (12/10/2024):Opacity right base which may represent a pulmonary mass, 19 mm -CTAP(12/10/2024): thick walled 25 mm cavitary lesion in the right middle lobe and 22mm pulmonary nodule anterior right lower lobe Plan: -Fairly stable right lung pulmonary nodule. -Will continue to monitor. #GERD Chronic medical problems: All pertinent to the following presentation Plan: -Continue Pantoprazole 40 mg PO QD Health Maintenance: Lines: PIV Diet: Renal and carb consistent low Bowel: Senna GI prophylaxis: Pantoprazole 40 mg PO QD DVT prophylaxis: SCD Dispo: Nephrology neurology recommendations, IV antibiotics for cystitis Code: Full Assessment and plan discussed with my attending physician Dr. Jones and Dr. Kim (PGY-3) Dr. Silva (PGY-1)- Internal medicine resident Attending Provider Attestation/Addendum I have examined the patient, reviewed labs and imaging findings, discussed the case with the resident(s), and reviewed entered orders. I agree with the plan of care as outlined in this note, with these additional summaries/recommendations: Patient seen at bedside. No acute overnight events. Patient received dialysis catheter yesterday and has completed her first session of hemodialysis. PPD/acute hep panel ordered in case dialysis becomes permanent. We will notify case management to arrange outpatient chair time. Etiology for acute renal failure remains unclear although likely originally secondary to bilateral hydronephrosis leading to possibly ATN. Urology has been following closely. CT of abdomen pelvis showed moderate bilateral hydronephrosis. Etiology for acute bilateral hydronephrosis most likely secondary to vesicular ureteral reflux versus neurogenic bladder. It would be atypical for a patient to be diagnosed with vesicular ureteral reflux at this age but is possible. Ultimately she would require a voiding cystourethrogram or radionucleotide cystogram to evaluate for the diagnosis of vesicular ureteral reflux. It is possible symptoms are related to neurogenic bladder possibly from underlying diabetes. Patient currently has Oliva catheter in place with 1775 cc out in the last 24 hours which is a good prognostic sign. Continue to monitor renal function closely and patient will go for renal biopsy today. Continue basal and bolus insulin for diabetes mellitus type 2. Continue home antihypertensives. Patient updated on the plan and is in agreement. All questions answered to satisfaction. Please see residents note for additional details and management. Dr. Robert MD
[2024-12-16] MEDS: NIFEdipine XL 30 MG TABCR 60 MG PO (13:58)
[2024-12-16] MEDS: CALCIUM ACETATE 667 MG TABLET PO ×2 (13:59→17:27)
[2024-12-16] MEDS: PANTOPRAZOLE 40 MG TABLET PO (13:59)
[2024-12-16] MEDS: ACETAMINOPHEN 325 MG TABLET 650 MG PO (17:26)
--- NOTE | 2024-12-16 18:16 | PC.NURSE ---
Patient returned from Nuclear Medicine reporting chills and a subject sensation of fever/ Shivering was observed. Oral temperature recorded at 99.6. Cooling measures initiated and Tylenol administered. Will continue to monitor.
--- NOTE | 2024-12-16 19:16 | PC.NURSE ---
Pt voided at 1800, post catheter removal. Pt voided 150mls.
[2024-12-16] MEDS: CITRIC ACID/SODIUM CITR 15 ML UDC (BICITRA) 30 ML PO (21:02)
[2024-12-16] MEDS: INSULIN GLARGINE (Lantus) 5 UNIT/0.05 ML (PER 5 UNITS) 18 UNIT SC (21:26)
[2024-12-16] MEDS: ONDANSETRON INJ 2 MG/ML INJ 2 ML 4 MG IVP (23:39)
[2024-12-17] VITALS (28 sets, daily range): BP systolic 128–166; BP diastolic 73–89; PULSE 73–90; RESP 12–22; TEMP 36.2–37.6; O2SAT 90–100
[2024-12-17] MEDS: HYDROmorphone INJ 2 MG/ML VIAL 0.5 MG IVP (00:08)
[2024-12-17] MEDS: ONDANSETRON INJ 2 MG/ML INJ 2 ML 4 MG IVP (02:35)
[2024-12-17 06:23] LABS: Basophils # (Auto) 0.0 Thou/mm3 (0.0-0.2); Basophils % (Auto) 1 % (0-2.5); Eosinophils # (Auto) 0.1 Thou/mm3 (0.0-0.5); Eosinophils % (Auto) 1 % (0-10); Hematocrit 25.1 % (36.0-46.0); Immature Granulocytes Auto 0.04 Thou/mm3 (0.00-0.00); Lymphocytes # (Auto) 0.9 Thou/mm3 (1.0-4.8); Lymphocytes % (Auto) 11 % (10-50); Mean Corpuscular HGB Conc 31.9 g/dl (31.0-37.0); Mean Corpuscular Hemoglobin 25.5 pg (25.0-35.0); Mean Corpuscular Volume 80 fL (80-100); Monocytes # (Auto) 0.6 Thou/mm3 (0.0-0.8); Monocytes % (Auto) 7 % (0-12); Neutrophils # (Auto) 6.9 Thou/mm3 (1.8-7.7); Neutrophils % (Auto) 81 % (37-80); Nucleated Red Blood Cell # 0.00 Thou/mm3 (0.00-0.00); Nucleated Red Blood Cell % 0 /100 WBC (0); Platelet Count 273 Thou/mm3 (140-440); RDW Standard Deviation 45.8 fL (36.4-46.3); Red Blood Count 3.14 Miln/mm3 (4.00-5.20); White Blood Count 8.5 Thou/mm3 (3.6-11.0)
[2024-12-17 06:39] LABS: Hemoglobin 8.0 g/dL (12.0-16.0)
[2024-12-17 06:40] LABS: Alanine Aminotransferase 26 U/L (10-49); Albumin, Serum 4.0 gm/dL (3.5-5.0); Albumin/Globulin Ratio 1.4 (1.2-2.2); Alkaline Phosphatase 110 U/L (46-116); Anion Gap 11 (7-16); Aspartate Amino Transferase 27 U/L (0-34); BUN/Creatinine Ratio 7 Ratio (12-20); Bilirubin,Total 0.3 mg/dL (0.3-1.2); Blood Urea Nitrogen 33 mg/dL (9-23); Calcium 8.4 mg/dL (8.3-10.6); Calcium (Corrected) 8.4 mg/dL (8.5-10.1); Carbon Dioxide 27.4 mMol/L (20.0-31.0); Chloride 101 mMol/L (98-107); Creatinine (Component) 4.6 mg/dL (0.6-1.3); Estimated Creatinine Clearance 16.9 mL/min (>60); Globulin 2.8 gm/dL (2.3-3.5); Glucose 137 mg/dL (74-106); Magnesium 1.5 mg/dL (1.6-2.6); Osmolality,Calculated 286 (275-295); Phosphorous 4.3 mg/dL (2.4-5.1); Potassium 4.3 mMol/L (3.4-5.1); Sodium 139 mMol/L (136-145); Total Protein 6.8 gm/dL (5.7-8.2); eGFR 12 See Note
--- NOTE | 2024-12-17 09:06 | PC.SS ---
SS was informed pt Team B-Dr. Stark that pt will need an out pt chair for HD. Pt will be followed by Dr. Pineda. MARIAN submitted all clinicals to [facility]AHNA[facility] Collins# [phone]
--- NOTE | 2024-12-17 10:16 | PD.RESPRO ---
Documentation for date of: 12/17/24 Subjective Subjective Interval history: Ms. Cedillo is a 44-year-old female with past medical history of insulin-dependent type 2 diabetes, hypertension, GERD, history of valley fever untreated presented to the ED on 12/10 with episode of left flank pain, nausea/vomiting and chills. Patient states that the chills started roughly an hour ago but that she has been having progressively worsening left flank pain radiating to her back. Patient denies having any dysuria but does state that she has been having lilia hematuria for several days. Patient denies having any fevers but she does state that she has been having chills. Patient also complains of suprapubic pain and mentions that she feels pain near her ovaries. Patient has not seen PCP regarding the symptoms but she was seen several weeks ago for GERD like symptoms and was given medications. Patient otherwise denies having any concerning symptoms such as chest pain, dizziness, shortness of breath. In the ED, patient presented in hypertensive emergency with a blood pressure 187/83, other vitals wnl. Pertinent lab findings included WBC of 9, hemoglobin 7.9, potassium of 5.4, BUN of 31, creatinine 3.9, EGFR of 14, magnesium 1.6, troponin less than 0.02, BNP of 235, urinalysis shows hematuria and mild pyuria but no bacteria. Chest x-ray shows mild prominence of ventricles along with opacity in the right base concerning for pulmonary mass, EKG shows sinus rhythm without any concerning ST changes and CT abdomen pelvis shows a thick-walled cavitary lesion in the right middle lobe and a 22 mm pulmonary nodule in the anterior right lower lobe, numerous bilateral nonobstructing renal calculi, moderate bilateral hydronephrosis without calculi and cystitis. Patient will be admitted for hypertensive emergency requiring close monitoring along with acute renal failure requiring urology and nephrology consultation and IV antibiotics for cystitis Upon seeing the patient currently, she is on Mg Sulfate, Ceftriaxone, Carvedilol 6.25 mg, and maintenance IV fluids with a slightly improved blood pressure of 168/88 with the rest of vitals wnl. Patient states she is currently feeling much better now. States that she still has some nausea, L flank pain radiating to back and some dizziness when she stands up for too long. Patient states she has noticed blood in her urine today and ever since March. Patient endorses having bowel movements. Patient denies fever, headache, chest pain, shortness of breath, vomiting. 12/12/2024 No acute overnight events. Patient was seen and examined at bedside. Patient's Cr worsened this morning to 4.3 despite making urine with urinary catheter, so want to repeat renal US to see if hydronephrosis (or other obstruction) persisted. Checking urine lytes for possible rta. Patient denies fever, headache, chest pain, shortness of breath, nausea, vomiting. 12/13/2024 No acute overnight events. Patient was seen and examined at bedside. Patient's vitals and labs reviewed. Patient's Cr continues to worsen depsite making plenty of good urine. Patient endorses having 3/4 UTI's per year. Patient denies fever, headache, chest pain, shortness of breath, nausea, vomiting. 12/14/24: Patient was seen and examined at bedside with family member. No new complaints. Denies chest pain, SOB, fever, flank pain or abdominal pain. Cr and BUN continue to stay elevated despite making good urine. 12/15/24: Patient was seen and examined at bedside with family member. Patient was informed that she will need hemodialysis. No new complaints. Denies chest pain, SOB, fever, flank pain or abdominal pain. Cr and BUN continue to stay elevated despite making good urine. 12/16/24: Patient was seen and examined at bedside with family members. Patient received dialysis catheter yesterday. Plan to get kidney biopsy today before starting dialysis. No new complaints. Denies chest pain, SOB, fever, flank pain or abdominal pain. Cr and BUN continue to stay elevated despite making good urine. 12/17/24 No acute events overnight. Patient seen and examined at bedside. Patient had renal biopsy and first HD done yesterday. Planning to receieve cystoscopy followed by urethral stents. No new complaints. Denies chest pain, SOB, fever, flank pain or abdominal pain. Mild improvement in Cr after first HD yesterday, will get HD again today. Exam Vital Signs Temp Pulse Resp BP Pulse Ox O2 Del Method O2 Flow Rate 98.4 F 73 17 152/85 H 94 L Room Air 3 12/17/24 08:00 12/17/24 10:15 12/17/24 08:00 12/17/24 10:15 12/17/24 08:00 12/17/24 08:00 12/16/24 10:35 Narrative Exam GENERAL: a&o x3, no acute distress, resting in bed HEENT: NC/AT. Moist mucosa. PERRLA/EOMI. R IJ dialysis catheter CARDIO: Heart RRR, no murmurs appreciated PULM: Lungs CTA B/L, no resp distress ABD: soft, distended with no abdominal tenderness SKIN: No edema bilateral lower extremities. No wounds/discoloration/rashes/amputations. +Pedal pulses present B/L. MSK: No joint swelling or pain/tenderness noted. EXT: upper and lower extremities atraumatic in appearance, able to move all 4 extremities. NEURO: no focal neurologic deficits noted Objective Labs 12/17/24 04:33 12/17/24 04:33 Labs: Laboratory Results - last 24 hr 12/17/24 04:33 WBC 8.5 RBC 3.14 L Hgb 8.0 L Hct 25.1 L MCV 80 MCH 25.5 MCHC 31.9 RDW Std Deviation 45.8 Plt Count 273 D Neut % (Auto) 81 H Lymph % (Auto) 11 [place] % (Auto) 7 Eos % (Auto) 1 Baso % (Auto) 1 Neut # (Auto) 6.9 Lymph # (Auto) 0.9 L [place] # (Auto) 0.6 Eos # (Auto) 0.1 Baso # (Auto) 0.0 Immature Gran # (Auto) 0.04 H Absolute Nucleated RBC 0.00 Immature Gran % 1 H Nucleated RBC % 0 Sodium 139 Potassium 4.3 Chloride 101 Carbon Dioxide 27.4 Anion Gap 11 BUN 33 H Creatinine 4.6 H* D Estim Creat Clear Calc 16.9 L eGFR 12 L* BUN/Creatinine Ratio 7 L Glucose 137 H Calculated Osmolality 286 Calcium 8.4 Corrected Calcium 8.4 L Phosphorus 4.3 Magnesium 1.5 L Total Bilirubin 0.3 AST 27 ALT 26 Alkaline Phosphatase 110 Total Protein 6.8 Albumin 4.0 Globulin 2.8 Albumin/Globulin Ratio 1.4 Quality Measures Quality Measures VTE prophylaxis Assessment & Plan Assessment Current Active Medications: Generic Name Dose Route Start Last Admin Trade Name Freq PRN Reason Stop Dose Admin Acetaminophen 650 mg 12/10/24 23:48 12/16/24 17:26 Acetaminophen 325 Mg Tablet PO 01/09/25 23:47 650 mg Q6H PRN Administration PAIN SCALE 1-3 (mild Buspirone HCl 10 mg 12/11/24 21:00 12/16/24 21:01 Buspirone Hcl 5 Mg Tablet PO 01/10/25 20:59 10 mg HS CLEMENTINE Administration Calcium Acetate 667 mg 12/13/24 12:00 12/16/24 17:27 Calcium Acetate 667 Mg Tablet PO 01/12/25 11:59 667 mg TIDWM CLEMENTINE Administration Carvedilol 12.5 mg 12/14/24 08:00 12/16/24 17:27 Carvedilol 12.5 Mg Tablet PO 01/13/25 07:59 12.5 mg BIDWM CLEMENTINE Administration Citric Acid/Sodium Citrate 30 ml 12/12/24 09:00 12/16/24 21:02 Citric Acid/Sodium Citr 15 Ml Udc (Bicitra) PO 01/11/25 08:59 30 ml BID CLEMENTINE Administration Dextrose 25 ml 12/10/24 23:51 Dextrose 50%-Water Inj 50 Ml Syringe IV 01/09/25 23:50 Q15MIN PRN BG 50-70 responsive npo pt Dextrose 50 ml 12/10/24 23:51 12/13/24 11:33 Dextrose 50%-Water Inj 50 Ml Syringe IV 01/09/25 23:50 50 ml Q15MIN PRN Administration BG <50 OR BG <70 & pt unresponsive Glucagon 1 mg 12/10/24 23:51 Glucagon Inj 1 Mg Vial IM Q15MIN PRN BG <70, and no IV access Heparin Sodium (Porcine) 3,800 unit 12/16/24 12:29 12/16/24 12:56 Heparin Sod Inj 1000 Unit/Ml Vial 10 Ml INDWELLCAT 12/30/24 12:28 3,800 unit X1 PRN Administration DIALYSIS Hydroxyzine HCl 25 mg 12/13/24 21:00 12/16/24 21:01 Hydroxyzine Hcl 25 Mg Tablet PO 01/12/25 20:59 25 mg HS CLEMENTINE Administration Ceftriaxone Sodium/Dextrose 1 gm in 50 mls @ 100 mls/hr 12/17/24 09:00 Rocephin/D5w 1gm Iv Premix IV 12/24/24 08:59 QDAY CLEMENTINE Insulin Glargine 18 unit 12/15/24 21:00 12/16/24 21:26 Insulin Glargine (Lantus) 5 Unit/0.05 Ml (Per 5 Units) SC 01/14/25 20:59 18 unit HS CLEMENTINE Administration Insulin Human Lispro 0 unit 12/16/24 21:00 12/17/24 07:53 Insulin Lispro (Admelog) 1 Unit/0.01 Ml Unit SC 01/15/25 20:59 Not Given ACHS CLEMENTINE Protocol Nifedipine 60 mg 12/16/24 14:00 12/16/24 13:58 Nifedipine Xl 30 Mg Tabcr PO 01/15/25 13:59 60 mg QDAY CLEMENTINE Administration Ondansetron HCl 4 mg 12/10/24 23:48 12/16/24 23:39 Ondansetron Inj 2 Mg/Ml Inj 2 Ml IVP 01/09/25 23:47 4 mg Q6H PRN Administration NAUSEA OR VOMITING Protocol Pantoprazole Sodium 40 mg 12/16/24 14:00 12/16/24 13:59 Pantoprazole 40 Mg Tablet PO 01/15/25 13:59 40 mg QDAY CLEMENTINE Administration Sennosides 1 tab 12/16/24 14:00 12/16/24 13:59 Senna Tablet PO 01/15/25 13:59 1 tab QDAY CLEMENTINE Administration Protocol Sodium Chloride 3 ml 12/11/24 14:16 12/13/24 08:41 Sodium Chloride Rt Katherine 0.9% 3 Ml Nebu INH 01/10/25 14:15 3 ml PRN PRN Administration SOLN Plan Kacy Cedillo is a 44-year-old female with past medical history of insulin-dependent type 2 diabetes, hypertension, GERD, history of valley fever untreated presented to the ED on 12/10 with episode of left flank pain, nausea/vomiting and chills will be admitted for hypertensive emergency requiring close monitoring along with acute renal failure requiring urology and nephrology consultation and IV antibiotics for cystitis #Acute kidney injury Likely multifactorial; suspecting pre-renal ischemic ATN vs obstructive etiology vs pre-renal from hypertensive emergency. Patient found to have pyelonephritis and seems to have vesicular ureteral reflux. CT showed numerous b/l nonobstructing renal caliculi, mod b/l hydronephrosis wo ureteral calculi, cystitis pattern Cr continues to stay elevated despite making good urine; patient clinically looks relatively well otherwise, Patient endorses having 3/4 UTI's per year. With hydronephrosis, biopsy is contraindicated; however, can potentially biopsy from renal cortex not medulla. Consider biopsy if repeat UA shows continued protein loss with resolution of UTI. Ulytes wnl. Urology thinking neurogenic bladder; recommends intermittent urethral catheterization (1-2x per day) until residual urine < 100 ml. Plan: -HD today, plan for outpatient HD, per urology. -Plan for cystoscopy followed by urethral stents insertion today -CTM chem and urine output -F/u DEMARCUS, ANCA, C3/C4, IgA -Avoid nephrotoxic agents -Renally dose medications -Replete electrolytes as needed and follow-up with morning labs #Acute urinary retention #Bilateral hydronephrosis #Cystitis #Complicated UTI, nephrolithiasis #Hematuria #Hypertensive emergency, improving #Hypertension #Insulin-dependent type 2 diabetes #GERD -Managed per primary team Thank you for allowing us to take part in the care of Ms. Cedillo Plan of care discussed with attending, Dr. Miriam Martinez MD PGY-1 Attending Provider Attestation/Addendum Patient seen and examined with resident physician Dr. Martinez. Note reviewed, agree with findings and recommendations. SAPPHIRE probably related to prerenal azotemia//ischemic ATN(etiology still remains unclear). CT showed moderate hydronephrosis with the bilateral renal calculi. Doubt renal calculi is the cause for hydronephrosis. Patient seems to have vesicular ureteral reflux. No biopsy with hydronephrosis. Patient needs a Stone workup as an outpatient. Patient might need urology evaluation as outpatient. Currently on antibiotics. 12/17/2024 Patient with a worsening azotemia. Suspect patient in ATN. Agree with phosphorus and potassium binders. Had kidney biopsy yesterday. PermCath placed by IR. Patient on second dialysis. Tolerating dialysis without any problems. Hemodialysis for 2.5hours, 2K, ultrafiltration 1 L, Epogen 6000, no heparin ordered. Plan of care discussed with the dialysis nurse. Please see dialysis flowsheet for further details. she has neurogenic bladder. Recommended to DC Oliva catheter and instead try intermittent catheterization until residual urine less than 100 mL. Spoke to family and daughter seems to be willing to do intermittent cath Had a long conversation with urology-Dr. Friedman had seen the patient and did cystoscopy today post dialysis. 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 Recommended bilateral percutaneous nephrostomy tube placement. He did not think it was papillary carcinoma. Wanted me to rule out metastatic tumor in the bladder. MRI abdomen and pelvis without contrast ordered. Pending results will request GI/THERMODYNAMIC PHYSICIST consult. Patient also needs outpatient tertiary care center evaluation for large bladder tumor.
[2024-12-17] MEDS: HEPARIN SOD INJ 1000 UNIT/ML VIAL 10 ML 3800 UNIT INDWELLCAT (10:41)
[2024-12-17] MEDS: MAGNESIUM OXIDE 400 MG TABLET PO (11:32)
[2024-12-17] MEDS: cefTRIAXone/D5w 1gm IV premix 1 GM/50 ML BAG IV (11:33)
[2024-12-17] MEDS: CALCIUM ACETATE 667 MG TABLET PO (11:33)
[2024-12-17] MEDS: PANTOPRAZOLE 40 MG TABLET PO (11:34)
[2024-12-17] MEDS: CITRIC ACID/SODIUM CITR 15 ML UDC (BICITRA) 30 ML PO ×2 (11:34→20:55)
[2024-12-17] MEDS: NIFEdipine XL 30 MG TABCR 60 MG PO (11:34)
--- NOTE | 2024-12-17 13:43 | ESPR_ITS ---
Documentation for date of: 12/17/24 Senior resident attestation: Patient evaluated and examined at the bedside, plan of care discussed with rest of the team including my attending physician, except as noted. Pending renal for renal biopsy, hemodialysis schedule, per nephrology patient might benefit from temporary hemodialysis until renal function recovers. Cystoscopic examination by urologist performed today, found bilateral hydronephrosis, large bladder mass occupying posterior bladder wall occupying the ureteral orifices, recommended placement of bilateral percutaneous nephrostomies and referral to tertiary care center after MRI abdomen pelvis also needs GI LEAD JANITOR consult. Quresh PGY3 Subjective Subjective Interval history: No Overnight events. Labs reviewed and patient examined at the bedside. Patient received hemodialysis today. Per nephrology, planned for cystopscopy with urethral stent placement today. Patient endorses pain near catherter inserstion site. Cr improved from 5.4 to 4.6. Denies chest pain, Shortness of breathe, palpitation, abdominal pain, fevers or chills. After cystoscopy, patient noted that she had history of cervical cancer 3 years ago. Cystoscopic examination by Urologist Dr. Friedman today: found Bilateral hydronephrosis, large bladder mass occupying posterior bladder wall occupying the ureteral orifices. Recommended placement of bilateral percutaneous nephrostomies and referral to tertiary [facility] after MRI of the abdominal pelvis and also needs GI and LEAD JANITOR consult Exam Vital Signs Temp Pulse Resp BP Pulse Ox O2 Del Method O2 Flow Rate 98.4 F 85 17 155/89 H 96 Room Air 3 12/17/24 12:12/17/24 12:12/17/24 12:12/17/24 12:12/17/24 12:12/17/24 12:12/16/24 10:35 Narrative Exam General: No acute distress, well nourished Eye: PERRL, EOMI, normal conjunctiva, no scleral icterus HENT: Normocephalic, atraumatic, hearing intact to conversation at normal volume, moist oral mucosa Neck: Supple, non-tender, no JVD, no lymphadenopathy Lungs: Non-labored respirations, symmetric chest rise, Clear to auscultate bilaterally Heart: Peripheral pulses intact bilaterally Abdomen: Soft, non-tender, non-distended Musculoskeletal: Normal range of motion and strength Skin: Skin is warm, dry, no rashes or lesions. Psychiatric: Cooperative, appropriate mood and affect Neuro: Cranial nerves II-XII grossly intact. Strength 5/5 throughout. Sensations intact to light touch. Objective Labs 12/18/24 04:35 12/18/24 04:35 Labs: Laboratory Results - last 24 hr 12/17/24 04:33 WBC 8.5 RBC 3.14 L Hgb 8.0 L Hct 25.1 L MCV 80 MCH 25.5 MCHC 31.9 RDW Std Deviation 45.8 Plt Count 273 D Neut % (Auto) 81 H Lymph % (Auto) 11 [place] % (Auto) 7 Eos % (Auto) 1 Baso % (Auto) 1 Neut # (Auto) 6.9 Lymph # (Auto) 0.9 L [place] # (Auto) 0.6 Eos # (Auto) 0.1 Baso # (Auto) 0.0 Immature Gran # (Auto) 0.04 H Absolute Nucleated RBC 0.00 Immature Gran % 1 H Nucleated RBC % 0 Sodium 139 Potassium 4.3 Chloride 101 Carbon Dioxide 27.4 Anion Gap 11 BUN 33 H Creatinine 4.6 H* D Estim Creat Clear Calc 16.9 L eGFR 12 L* BUN/Creatinine Ratio 7 L Glucose 137 H Calculated Osmolality 286 Calcium 8.4 Corrected Calcium 8.4 L Phosphorus 4.3 Magnesium 1.5 L Total Bilirubin 0.3 AST 27 ALT 26 Alkaline Phosphatase 110 Total Protein 6.8 Albumin 4.0 Globulin 2.8 Albumin/Globulin Ratio 1.4 Quality Measures Quality Measures VTE prophylaxis Assessment & Plan Assessment Current Active Medications: Generic Name Dose Route Start Last Admin Trade Name Freq PRN Reason Stop Dose Admin Acetaminophen 650 mg 12/10/24 23:48 12/16/24 17:26 Acetaminophen 325 Mg Tablet PO 01/09/25 23:47 650 mg Q6H PRN Administration PAIN SCALE 1-3 (mild Buspirone HCl 10 mg 12/11/24 21:00 12/16/24 21:01 Buspirone Hcl 5 Mg Tablet PO 01/10/25 20:59 10 mg HS CLEMENTINE Administration Calcium Acetate 667 mg 12/13/24 12:00 12/17/24 11:33 Calcium Acetate 667 Mg Tablet PO 01/12/25 11:59 667 mg TIDWM CLEMENTINE Administration Carvedilol 12.5 mg 12/14/24 08:00 12/17/24 11:33 Carvedilol 12.5 Mg Tablet PO 01/13/25 07:59 12.5 mg BIDWM CLEMENTINE Administration Citric Acid/Sodium Citrate 30 ml 12/12/24 09:00 12/17/24 11:34 Citric Acid/Sodium Citr 15 Ml Udc (Bicitra) PO 01/11/25 08:59 30 ml BID CLEMENTINE Administration Dextrose 25 ml 12/10/24 23:51 Dextrose 50%-Water Inj 50 Ml Syringe IV 01/09/25 23:50 Q15MIN PRN BG 50-70 responsive npo pt Dextrose 50 ml 12/10/24 23:51 12/13/24 11:33 Dextrose 50%-Water Inj 50 Ml Syringe IV 01/09/25 23:50 50 ml Q15MIN PRN Administration BG <50 OR BG <70 & pt unresponsive Glucagon 1 mg 12/10/24 23:51 Glucagon Inj 1 Mg Vial IM Q15MIN PRN BG <70, and no IV access Heparin Sodium (Porcine) 3,800 unit 12/16/24 12:29 12/17/24 10:41 Heparin Sod Inj 1000 Unit/Ml Vial 10 Ml INDWELLCAT 12/30/24 12:28 3,800 unit X1 PRN Administration DIALYSIS Hydroxyzine HCl 25 mg 12/13/24 21:00 12/16/24 21:01 Hydroxyzine Hcl 25 Mg Tablet PO 01/12/25 20:59 25 mg HS CLEMENTINE Administration Ceftriaxone Sodium/Dextrose 1 gm in 50 mls @ 100 mls/hr 12/17/24 09:00 12/17/24 11:33 Rocephin/D5w 1gm Iv Premix IV 12/24/24 08:59 100 mls/hr QDAY CLEMENTINE Administration Insulin Glargine 18 unit 12/15/24 21:00 12/16/24 21:26 Insulin Glargine (Lantus) 5 Unit/0.05 Ml (Per 5 Units) SC 01/14/25 20:59 18 unit HS CLMEENTINE Administration Insulin Human Lispro 0 unit 12/16/24 21:00 12/17/24 11:37 Insulin Lispro (Admelog) 1 Unit/0.01 Ml Unit SC 01/15/25 20:59 Not Given ACHS CLEMENTINE Protocol Nifedipine 60 mg 12/16/24 14:00 12/17/24 11:34 Nifedipine Xl 30 Mg Tabcr PO 01/15/25 13:59 60 mg QDAY CLEMENTINE Administration Ondansetron HCl 4 mg 12/10/24 23:48 12/16/24 23:39 Ondansetron Inj 2 Mg/Ml Inj 2 Ml IVP 01/09/25 23:47 4 mg Q6H PRN Administration NAUSEA OR VOMITING Protocol Pantoprazole Sodium 40 mg 12/16/24 14:00 12/17/24 11:34 Pantoprazole 40 Mg Tablet PO 01/15/25 13:59 40 mg QDAY CLEMENTINE Administration Sennosides 1 tab 12/16/24 14:00 12/17/24 11:34 Senna Tablet PO 01/15/25 13:59 1 tab QDAY CLEMENTINE Administration Protocol Sodium Chloride 3 ml 12/11/24 14:16 12/13/24 08:41 Sodium Chloride Rt Katherine 0.9% 3 Ml Nebu INH 01/10/25 14:15 3 ml PRN PRN Administration SOLN Plan 44-year-old female with past medical history of insulin-dependent type 2 diabetes, hypertension, GERD, history of valley fever presented to the ED on 12/10 with episode of left flank pain, nausea/vomiting and chills will be admitted for hypertensive emergency requiring close monitoring along with acute renal failure requiring urology and nephrology consultation and IV antibiotics for cystitis #Acute renal failure 2/2 Acute tubular necrosis -12/15: Cr:5.1, BUN:47 -Repeat UA 12/14 Urine protein +1 Urine blood +1 RBC 5 -Currently difficult to do kidney biopsy due to hydronephrosis. -I/O balance of -125ml. -Patient received hemodialysis today. Plan: -Nephrology consulted, Dr. Pierre, ordered nuclear renal scan, IgA levels for IgA nephropathy, Hepatitis A/B titers, ANCA titers, pending results, appreciate recommendations -Avoid nephrotoxic agents -Renally dose medications -Replete electrolytes as needed and follow-up with morning labs #Acute urinary retention #Bilateral hydronephrosis #Cystitis #Complicated UTI, nephrolithiasis #Hematuria -On exam, patient no longer has left flank flank with CVA tenderness -CT abdomen pelvis shows a thick-walled cavitary lesion in the right middle lobe and a 22 mm pulmonary nodule in the anterior right lower lobe, numerous bilateral nonobstructing renal calculi, moderate bilateral hydronephrosis without calculi and cystitis -Based on CTAP presentation, urinary retention due to intake of meclizine was suspected as patient started to take it 1wk everyday prior to coming to the hospital. -Renal Ultrasound (12/11/2024): Moderate bilateral hydronephrosis -Renal Ultrasound (12/12/2024): Moderate bilateral hydronephrosis. -Cystoscopic examination by Urologist Dr. Friedman today: found Bilateral hydronephrosis, large bladder mass occupying posterior bladder wall occupying the ureteral orifices. Recommended placement of bilateral percutaneous nephrostomies and referral to tertiary care Medical Center after MRI of the abdominal pelvis and also needs GI and LEAD JANITOR consult -After cystoscopy, patient noted that she had history of cervical cancer 3 years ago. Plan: -Advised to stop taking meclizine. -Finished receiving IV ceftriaxone 2g IV qd (12/11-12/16). Now changed to IV ceftriaxone 1g IV qd (12/17-) #Hypertensive emergency, improving #Hypertension Patient has significant history of hypertension on home antihypertensives Presenting to the ED with acute renal failure and elevated systolic pressure in the 200s Plan: - continue Nifedipine 30mg PO qd - Coreg 6.25mg PO bid uptitrated to 12.5 PO BID today - discontinued Hydralazine 50mg PO TID 12/13/24 #Insulin-dependent type 2 diabetes Pertinent labs: 06/2024 A1C 11.1 12/11/24 A1C 8.0 Patient apparently takes 30 units of long-acting insulin twice a day Plan: Insulin glargine 15 units at bedtime Sliding scale #History of Valley Fever -CTAP(03/21/2024):30 mm thick-walled cavitary lesion partially visualized right midlung,, 22 mm pulmonary nodule anterior right lower lobe -CXR(07/16/2024): Poorly defined nodular density 18 mm in the right lower lobe, -CXR (12/10/2024):Opacity right base which may represent a pulmonary mass, 19 mm -CTAP(12/10/2024): thick walled 25 mm cavitary lesion in the right middle lobe and 22mm pulmonary nodule anterior right lower lobe Plan: -Fairly stable right lung pulmonary nodule. -Will continue to monitor. #GERD Chronic medical problems: All pertinent to the following presentation Plan: -Continue Pantoprazole 40 mg PO QD Health Maintenance: Lines: PIV Diet: Renal and carb consistent low Bowel: Senna GI prophylaxis: Pantoprazole 40 mg PO QD DVT prophylaxis: SCD Dispo: Nephrology neurology recommendations, IV antibiotics for cystitis Code: Full Assessment and plan discussed with my attending physician Dr. Jones and Dr. Kim (PGY-3) Dr. Silva (PGY-1)- Internal medicine resident Attending Provider Attestation/Addendum I have examined the patient, reviewed labs and imaging findings, discussed the case with the resident(s), and reviewed entered orders. I agree with the plan of care as outlined in this note, with these additional summaries/recommendations: Patient and family seen at bedside. No acute overnight events. Discussed with patient that she will go for cystoscopy today with likely stent placement for bilateral hydronephrosis. Nephrology following and patient receiving hemodialysis. Arranging outpatient chair time. Status post renal biopsy and follow-up results when available. We will continue to monitor urinary output closely. Continue basal and bolus insulin for diabetes mellitus type 2. Continue home antihypertensives. Patient updated on the plan and is in agreement. All questions answered to satisfaction. Please see residents note for additional details and management. Dr. Robert MD
--- NOTE | 2024-12-17 14:36 | XR_ITS ---
Examination: Fluoroscopy AP abdomen single view Date and time: December 17, 2024, 1601 hours INDICATIONS: Attempted bilateral retrograde pyelogram, acute renal insufficiency with proteinuria TECHNIQUE AND FINDINGS: Single abdomen film, no opacification of the renal collecting systems Fluoroscopy 16 seconds radiation dose 6.12 mCi IMPRESSION: Fluoroscopy as above
--- NOTE | 2024-12-17 14:49 | PC.SS ---
Rounding: Pending Cysto with Dr. Friedman, also pending HD chair time for outpt HD
--- NOTE | 2024-12-17 16:32 | SUR.PHASEI ---
received pt and report from Dr. Denson and RN Kae. Pt slightly sedated, pt arousable to voice. VSS, IV intact, no s/s of infiltration or redness to site. HD cath to Rt upper chest, no s/s of infection noted to site.
--- NOTE | 2024-12-17 16:33 | PD.SUROPNT ---
Date of Procedure 12/17/24 Pre Op Diagnosis Gross hematuria, bilateral hydronephrosis Post Op Diagnosis Same plus large bladder mass posterior bladder wall occupying the bilateral ureteral orifices Procedure Cystoscopic examination Findings Bilateral hydronephrosis, large bladder mass occupying posterior bladder wall occupying the ureteral orifices Procedure Description Indication for procedure this is a 44-year-old female she is admitted in the hospital. She has gross hematuria. She has renal failure on dialysis and CAT scan had showed bilateral hydronephrosis she was recommended cystoscopic examination procedure and complications were discussed with patient in great detail informed consent is obtained Patient was brought to the operating room and satisfactory condition after appropriate premedication was put on the operating table in the supine position she was appropriately identified by surgeon and operating room staff site scope and indication of the procedure were reconfirmed with the patient General anesthesia was given uneventfully patient was positioned in dorsolithotomy position. The patient was prepped in a sterile manner. Local anesthetic was placed in the urethra. Cystoscopy was then performed. The urethra had no intrinsic lesions. Examination of the bladder revealed large solid mass occupying the posterior bladder wall occupying the both ureteral orifices . Ureteral orifices were not identifiable. The bladder was completely drained and the scope was removed. The patient tolerated the procedure well. Was transferred to the recovery room in a satisfactory condition Patient disposition recommended placement of bilateral percutaneous nephrostomies and referred to [facility] after MRI of the abdominal pelvis also needs GI and DIRECTOR OF [employer] consult Anesthesia GETA Pathology / specimen None Estimated Blood Loss 0.2 Condition Stable Disposition PACU Surgeon Aarti Friedman MD Surgical Staff Operation Date: 12/17/24 14:30 <No data on this case meets the specified criteria>
--- NOTE | 2024-12-17 17:09 | SUR.PHASEI ---
called reprt to RAYSA Rosen, pt recovering well, vss, no distress noted. pt denies any pain. IV intact no s/s of infiltration or redness. HD cath intact to right upper chest.
--- NOTE | 2024-12-17 19:42 | PC.RT ---
pt found on 2l nc titrated to RA spo2 99% hr 75 RR20 normal RR no distress noted clear lung sounds.
[2024-12-17] MEDS: INSULIN GLARGINE (Lantus) 5 UNIT/0.05 ML (PER 5 UNITS) 18 UNIT SC (21:06)
[2024-12-17] MEDS: INSULIN LISPRO (AdmeLOG) 1 UNIT/0.01 ML UNIT SC (21:07)
[2024-12-18] VITALS (25 sets, daily range): BP systolic 135–190; BP diastolic 72–100; PULSE 67–94; RESP 14–95; TEMP 36–37.2; O2SAT 92–97
[2024-12-18 06:27] LABS: Basophils # (Auto) 0.0 Thou/mm3 (0.0-0.2); Basophils % (Auto) 0 % (0-2.5); Eosinophils # (Auto) 0.0 Thou/mm3 (0.0-0.5); Eosinophils % (Auto) 0 % (0-10); Hematocrit 26.0 % (36.0-46.0); Immature Granulocytes Auto 0.05 Thou/mm3 (0.00-0.00); Lymphocytes # (Auto) 1.0 Thou/mm3 (1.0-4.8); Lymphocytes % (Auto) 13 % (10-50); Mean Corpuscular HGB Conc 31.9 g/dl (31.0-37.0); Mean Corpuscular Hemoglobin 25.7 pg (25.0-35.0); Mean Corpuscular Volume 81 fL (80-100); Monocytes # (Auto) 0.4 Thou/mm3 (0.0-0.8); Monocytes % (Auto) 5 % (0-12); Neutrophils # (Auto) 6.3 Thou/mm3 (1.8-7.7); Neutrophils % (Auto) 81 % (37-80); Nucleated Red Blood Cell # 0.00 Thou/mm3 (0.00-0.00); Nucleated Red Blood Cell % 0 /100 WBC (0); RDW Standard Deviation 45.1 fL (36.4-46.3); Red Blood Count 3.23 Miln/mm3 (4.00-5.20); White Blood Count 7.7 Thou/mm3 (3.6-11.0)
[2024-12-18 06:29] LABS: Hemoglobin 8.3 g/dL (12.0-16.0)
[2024-12-18 06:46] LABS: Alanine Aminotransferase 26 U/L (10-49); Albumin, Serum 4.0 gm/dL (3.5-5.0); Albumin/Globulin Ratio 1.4 (1.2-2.2); Alkaline Phosphatase 113 U/L (46-116); Anion Gap 12 (7-16); Aspartate Amino Transferase 28 U/L (0-34); BUN/Creatinine Ratio 5 Ratio (12-20); Bilirubin,Total 0.2 mg/dL (0.3-1.2); Blood Urea Nitrogen 24 mg/dL (9-23); Calcium 8.7 mg/dL (8.3-10.6); Calcium (Corrected) 8.7 mg/dL (8.5-10.1); Carbon Dioxide 26.7 mMol/L (20.0-31.0); Chloride 99 mMol/L (98-107); Creatinine (Component) 4.4 mg/dL (0.6-1.3); Estimated Creatinine Clearance 17.6 mL/min (>60); Globulin 2.9 gm/dL (2.3-3.5); Glucose 190 mg/dL (74-106); Magnesium 1.6 mg/dL (1.6-2.6); Osmolality,Calculated 284 (275-295); Phosphorous 4.6 mg/dL (2.4-5.1); Potassium 4.7 mMol/L (3.4-5.1); Sodium 138 mMol/L (136-145); Total Protein 6.9 gm/dL (5.7-8.2); eGFR 12 See Note
[2024-12-18 08:27] LABS: Platelet Count 233 Thou/mm3 (140-440)
--- NOTE | 2024-12-18 09:18 | PC.CC ---
[id number] Kim in regards to possible transfer of patient for [facility]/Oncology. Patient with large obstructing bladder mass. MRI pending, will wait for MRI results before initiating transfer. Dr. Kim made aware, unknown time for MRI.
--- NOTE | 2024-12-18 09:25 | XR_ITS ---
Examination: CT abdomen and pelvis without contrast. Coronal 3-D reconstructions. Sagittal 2-D reconstructions. Date and time of exam:December 18, 2024 1412 hours INDICATIONS: Upper back pain hematuria flank pain renal failure this week CTDI: vol (mGy): 10.3 DLP: (mGycm): 651 Technique: Axial images of the abdomen have been obtained, 3 mm slice thickness Intravenous contrast material has not been administered. Low dose protocols were performed. One or more of the following dose reduction techniques were used; automated exposure control, adjustment of the mA and/or KV according to patient size, use of iterative reconstruction technique. Findings: No focal liver or splenic lesions Gallstones No pancreatic or adrenal mass Numerous bilateral 1 to 2 mm renal calculi Normal appendix Mild to moderate bilateral hydronephrosis with no ureteral calculi No bladder mass or bladder calculi No bowel obstruction Advanced disc narrowing L5-S1 IMPRESSION: Numerous bilateral 1 to 2 mm renal calculi Cholelithiasis Mild to moderate bilateral hydronephrosis without ureteral calculi, likely vesicoureteral reflux
--- NOTE | 2024-12-18 10:14 | PD.RESPRO ---
Documentation for date of: 12/18/24 Subjective Subjective Interval history: Ms. Cedillo is a 44-year-old female with past medical history of insulin-dependent type 2 diabetes, hypertension, GERD, history of valley fever untreated presented to the ED on 12/10 with episode of left flank pain, nausea/vomiting and chills. Patient states that the chills started roughly an hour ago but that she has been having progressively worsening left flank pain radiating to her back. Patient denies having any dysuria but does state that she has been having lilia hematuria for several days. Patient denies having any fevers but she does state that she has been having chills. Patient also complains of suprapubic pain and mentions that she feels pain near her ovaries. Patient has not seen PCP regarding the symptoms but she was seen several weeks ago for GERD like symptoms and was given medications. Patient otherwise denies having any concerning symptoms such as chest pain, dizziness, shortness of breath. In the ED, patient presented in hypertensive emergency with a blood pressure 187/83, other vitals wnl. Pertinent lab findings included WBC of 9, hemoglobin 7.9, potassium of 5.4, BUN of 31, creatinine 3.9, EGFR of 14, magnesium 1.6, troponin less than 0.02, BNP of 235, urinalysis shows hematuria and mild pyuria but no bacteria. Chest x-ray shows mild prominence of ventricles along with opacity in the right base concerning for pulmonary mass, EKG shows sinus rhythm without any concerning ST changes and CT abdomen pelvis shows a thick-walled cavitary lesion in the right middle lobe and a 22 mm pulmonary nodule in the anterior right lower lobe, numerous bilateral nonobstructing renal calculi, moderate bilateral hydronephrosis without calculi and cystitis. Patient will be admitted for hypertensive emergency requiring close monitoring along with acute renal failure requiring urology and nephrology consultation and IV antibiotics for cystitis Upon seeing the patient currently, she is on Mg Sulfate, Ceftriaxone, Carvedilol 6.25 mg, and maintenance IV fluids with a slightly improved blood pressure of 168/88 with the rest of vitals wnl. Patient states she is currently feeling much better now. States that she still has some nausea, L flank pain radiating to back and some dizziness when she stands up for too long. Patient states she has noticed blood in her urine today and ever since March. Patient endorses having bowel movements. Patient denies fever, headache, chest pain, shortness of breath, vomiting. 12/16/24: Patient was seen and examined at bedside with family members. Patient received dialysis catheter yesterday. Plan to get kidney biopsy today before starting dialysis. No new complaints. Denies chest pain, SOB, fever, flank pain or abdominal pain. Cr and BUN continue to stay elevated despite making good urine. 12/17/24 No acute events overnight. Patient seen and examined at bedside. Patient had renal biopsy and first HD done yesterday. Planning to receieve cystoscopy followed by urethral stents. No new complaints. Denies chest pain, SOB, fever, flank pain or abdominal pain. Mild improvement in Cr after first HD yesterday, will get HD again today. 12/18/24 No acute events overnight. Patient seen and examined at bedside getting dialysis. Patient is currently getting HD #3 today. Patient states she is having some non-radiating pain in the right abdomen. She also states she has not been able to make urine herself anymore. Denies chest pain, SOB, fever, flank pain. Cystoscopy showed bladder tumor; ordered MR Abd/Pelvis. Based on results, consult GI/OBGYN Exam Vital Signs Temp Pulse Resp BP Pulse Ox O2 Del Method O2 Flow Rate 96.8 F 71 18 165/88 H 95 Nasal Cannula 2 12/18/24 08:06 12/18/24 10:00 12/18/24 08:06 12/18/24 10:00 12/18/24 08:06 12/18/24 04:00 12/18/24 00:00 Narrative Exam GENERAL: a&o x3, no acute distress, resting in bed HEENT: NC/AT. Moist mucosa. PERRLA/EOMI. R IJ dialysis catheter CARDIO: Heart RRR, no murmurs appreciated PULM: Lungs CTA B/L, no resp distress ABD: soft, non-distended mild tenderness on R abd SKIN: No edema bilateral lower extremities. No wounds/discoloration/rashes/amputations. +Pedal pulses present B/L. MSK: No joint swelling or pain/tenderness noted. EXT: upper and lower extremities atraumatic in appearance, able to move all 4 extremities. NEURO: no focal neurologic deficits noted Objective Labs 12/20/24 04:37 12/20/24 04:37 Labs: Laboratory Results - last 24 hr 12/18/24 04:35 WBC 7.7 RBC 3.23 L Hgb 8.3 L Hct 26.0 L MCV 81 MCH 25.7 MCHC 31.9 RDW Std Deviation 45.1 Plt Count 233 D Neut % (Auto) 81 H Lymph % (Auto) 13 [place] % (Auto) 5 Eos % (Auto) 0 Baso % (Auto) 0 Neut # (Auto) 6.3 Lymph # (Auto) 1.0 [place] # (Auto) 0.4 Eos # (Auto) 0.0 Baso # (Auto) 0.0 Immature Gran # (Auto) 0.05 H Absolute Nucleated RBC 0.00 Immature Gran % 1 H Nucleated RBC % 0 Sodium 138 Potassium 4.7 Chloride 99 Carbon Dioxide 26.7 Anion Gap 12 BUN 24 H Creatinine 4.4 H* Estim Creat Clear Calc 17.6 L eGFR 12 L* BUN/Creatinine Ratio 5 L Glucose 190 H D Calculated Osmolality 284 Calcium 8.7 Corrected Calcium 8.7 Phosphorus 4.6 Magnesium 1.6 Total Bilirubin 0.2 L AST 28 ALT 26 Alkaline Phosphatase 113 Total Protein 6.9 Albumin 4.0 Globulin 2.9 Albumin/Globulin Ratio 1.4 Quality Measures Quality Measures VTE prophylaxis Assessment & Plan Assessment Current Active Medications: Generic Name Dose Route Start Last Admin Trade Name Freq PRN Reason Stop Dose Admin Acetaminophen 650 mg 12/10/24 23:48 12/16/24 17:26 Acetaminophen 325 Mg Tablet PO 01/09/25 23:47 650 mg Q6H PRN Administration PAIN SCALE 1-3 (mild Buspirone HCl 10 mg 12/11/24 21:00 12/17/24 20:53 Buspirone Hcl 5 Mg Tablet PO 01/10/25 20:59 10 mg HS CLEMENTINE Administration Calcium Acetate 667 mg 12/13/24 12:00 12/18/24 08:41 Calcium Acetate 667 Mg Tablet PO 01/12/25 11:59 Not Given TIDWM CLEMENTINE Carvedilol 12.5 mg 12/14/24 08:00 12/18/24 08:41 Carvedilol 12.5 Mg Tablet PO 01/13/25 07:59 Not Given BIDWM CLEMENTINE Citric Acid/Sodium Citrate 30 ml 12/12/24 09:00 12/18/24 08:42 Citric Acid/Sodium Citr 15 Ml Udc (Bicitra) PO 01/11/25 08:59 Not Given BID CLEMENTINE Dextrose 25 ml 12/10/24 23:51 Dextrose 50%-Water Inj 50 Ml Syringe IV 01/09/25 23:50 Q15MIN PRN BG 50-70 responsive npo pt Dextrose 50 ml 12/10/24 23:51 12/13/24 11:33 Dextrose 50%-Water Inj 50 Ml Syringe IV 01/09/25 23:50 50 ml Q15MIN PRN Administration BG <50 OR BG <70 & pt unresponsive Epoetin Oneil 10,000 unit 12/18/24 10:30 Epoetin Oneil-Epbx Inj 10,000 Unit/Ml Vial (Esrd) SC 12/18/24 10:31 X1 ONE Glucagon 1 mg 12/10/24 23:51 Glucagon Inj 1 Mg Vial IM Q15MIN PRN BG <70, and no IV access Heparin Sodium (Porcine) 3,800 unit 12/16/24 12:29 12/17/24 10:41 Heparin Sod Inj 1000 Unit/Ml Vial 10 Ml INDWELLCAT 12/30/24 12:28 3,800 unit X1 PRN Administration DIALYSIS Hydroxyzine HCl 25 mg 12/13/24 21:00 12/17/24 20:54 Hydroxyzine Hcl 25 Mg Tablet PO 01/12/25 20:59 25 mg HS CLEMENTINE Administration Ceftriaxone Sodium/Dextrose 1 gm in 50 mls @ 100 mls/hr 12/17/24 09:00 12/18/24 08:42 Rocephin/D5w 1gm Iv Premix IV 12/24/24 08:59 Not Given QDAY CLEMENTINE Insulin Glargine 18 unit 12/15/24 21:00 12/17/24 21:06 Insulin Glargine (Lantus) 5 Unit/0.05 Ml (Per 5 Units) SC 01/14/25 20:59 18 unit HS CLEMENTINE Administration Insulin Human Lispro 0 unit 12/18/24 06:00 12/18/24 05:16 Insulin Lispro (Admelog) 1 Unit/0.01 Ml Unit SC 01/17/25 05:59 Not Given Q6HR [facility] Protocol Nifedipine 60 mg 12/16/24 14:00 12/18/24 08:42 Nifedipine Xl 30 Mg Tabcr PO 01/15/25 13:59 Not Given QDAY CLEMENTINE Ondansetron HCl 4 mg 12/10/24 23:48 12/16/24 23:39 Ondansetron Inj 2 Mg/Ml Inj 2 Ml IVP 01/09/25 23:47 4 mg Q6H PRN Administration NAUSEA OR VOMITING Protocol Pantoprazole Sodium 40 mg 12/16/24 14:00 12/18/24 08:42 Pantoprazole 40 Mg Tablet PO 01/15/25 13:59 Not Given QDAY CLEMENTINE Sennosides 1 tab 12/16/24 14:00 12/18/24 08:42 Senna Tablet PO 01/15/25 13:59 Not Given QDAY CLEMENTINE Protocol Sodium Chloride 3 ml 12/11/24 14:16 12/13/24 08:41 Sodium Chloride Rt Katherine 0.9% 3 Ml Nebu INH 01/10/25 14:15 3 ml PRN PRN Administration SOLN Plan Kacy Cedillo is a 44-year-old female with past medical history of insulin-dependent type 2 diabetes, hypertension, GERD, history of valley fever untreated presented to the ED on 12/10 with episode of left flank pain, nausea/vomiting and chills will be admitted for hypertensive emergency requiring close monitoring along with acute renal failure requiring urology and nephrology consultation and IV antibiotics for cystitis #Acute kidney injury Likely multifactorial; suspecting pre-renal ischemic ATN vs obstructive etiology vs pre-renal from hypertensive emergency. Patient found to have pyelonephritis and seems to have vesicular ureteral reflux. CT showed numerous b/l nonobstructing renal caliculi, mod b/l hydronephrosis wo ureteral calculi, cystitis pattern Cr continues to stay elevated despite making good urine; patient clinically looks relatively well otherwise, Patient endorses having 3/4 UTI's per year. With hydronephrosis, biopsy is contraindicated; however, can potentially biopsy from renal cortex not medulla. Consider biopsy if repeat UA shows continued protein loss with resolution of UTI. Ulytes wnl. Plan: -Urology: Cystoscopy showed bladder tumor; ordered MR Abd/Pelvis. Based on results, consult GI/OBGYN. Recommended bilateral percutaneous nephrostomy tube placement -HD today, plan for outpatient HD, per urology. -Intermittent urethral catheterization (1-2x per day) if pt unable to make urine. -CTM chem and urine output -F/u DEMARCUS, ANCA, C3/C4, IgA -Avoid nephrotoxic agents -Renally dose medications -Replete electrolytes as needed and follow-up with morning labs #Acute urinary retention #Bilateral hydronephrosis #Cystitis #Complicated UTI, nephrolithiasis #Hematuria #Hypertensive emergency, improving #Hypertension #Insulin-dependent type 2 diabetes #GERD -Managed per primary team Thank you for allowing us to take part in the care of Ms. Cedillo Plan of care discussed with attending, Dr. Miriam Martinez MD PGY-1 Attending Provider Attestation/Addendum Patient seen and examined with resident physician Dr. Martinez. Note reviewed, agree with findings and recommendations. SAPPHIRE probably related to prerenal azotemia//ischemic ATN(etiology still remains unclear). CT showed moderate hydronephrosis with the bilateral renal calculi. Doubt renal calculi is the cause for hydronephrosis. Patient seems to have vesicular ureteral reflux. No biopsy with hydronephrosis. Patient needs a Stone workup as an outpatient. Patient might need urology evaluation as outpatient. Currently on antibiotics. 12/18/2024 Patient with a worsening azotemia. Suspect patient in ATN. Agree with phosphorus and potassium binders. Had kidney biopsy PermCath placed by IR. Patient on third dialysis. Tolerating dialysis without any problems. Hemodialysis for 3 hours, 2K, ultrafiltration 1 L, Epogen 6000, no heparin ordered. Plan of care discussed with the dialysis nurse. Please see dialysis flowsheet for further details. she has neurogenic bladder. Recommended to DC Oliva catheter and instead try intermittent catheterization until residual urine less than 100 mL. Spoke to family and daughter seems to be willing to do intermittent cath Had a long conversation with urology-Dr. Friedman had seen the patient and did cystoscopy - Found a large bladder tumor blocking to ureteral orifices. Recommended bilateral percutaneous nephrostomy tube placement. He did not think it was papillary carcinoma. Wanted me to rule out metastatic tumor in the bladder. MRI abdomen and pelvis without contrast showed no malignancy. Patient also needs outpatient tertiary care center evaluation for large bladder tumor. Will need bilateral percutaneous nephrostomy tube placement per urology.
[2024-12-18] MEDS: EPOETIN ALFA-EPBX INJ 10,000 UNIT/ML VIAL (ESRD) 10000 UNIT SC (10:37)
[2024-12-18] MEDS: HEPARIN SOD INJ 1000 UNIT/ML VIAL 10 ML 3800 UNIT INDWELLCAT (11:18)
[2024-12-18 11:23] LABS: INR 1.0 (0.9-1.3); Partial Thromboplastin Time 27.6 Seconds (22.0-36.0); Prothrombin Time 11.2 Seconds (9.0-12.2)
[2024-12-18] MEDS: NIFEdipine XL 30 MG TABCR 60 MG PO (12:56)
[2024-12-18 13:15] LABS: HCG,Qualitative Serum Negative
--- NOTE | 2024-12-18 14:15 | PC.NURSE ---
Pt to CT via WC @ 1400, received call from MRI @ [id number], endorsed patient on way to CT, MRI staff stated will contact CT
--- NOTE | 2024-12-18 14:20 | ESPR_ITS ---
Documentation for date of: 12/18/24 Senior resident attestation: Patient evaluated and examined at the bedside, plan of care discussed with rest of the team including my attending physician, except as noted. Patient is currently being treated for UTI and possible obstructive nephropathy. Patient had persistent hematuria of on multiple previous urinalysis. Urology was consulted, Dr. Friedman initially recommended Oliva's catheter placement later cystoscopy was done which showed bladder mass obstructing openings of ureter. The lesion was not biopsied, truck driver helper Dr Pineda is also following the patient, per urology updates are given to the truck driver helper. Urology recommended getting MRI abdominal pelvis, and GI and ALTERATION SPECIALIST consult, possible transfer to tertiary center for further management. IR nephrostomy tube placement was ordered, currently on hemodialysis. Will continue to trend renal function, transfer nurse is aware of transfer for [facility]. Quresh PGY3 Subjective Subjective Interval history: No Overnight events. Labs reviewed and patient examined at the bedside. Patient received hemodialysis today. MRI abd/pelvis showed Mild to moderate bilateral hydronephorsis, and dilated ureters extending to the bladder. Patient planned for placement of nephrostomy tube tomorrow. Once the bilateral hydronephrosis improves, patient will get biopsy of the bladder mass followed by urethral stents. Denies chest pain, Shortness of breathe, palpitation, abdominal pain, fevers or chills. Exam Vital Signs Temp Pulse Resp BP Pulse Ox O2 Del Method O2 Flow Rate 98.3 F 81 14 186/93 H 97 Room Air 2 12/18/24 12:00 12/18/24 12:56 12/18/24 12:00 12/18/24 12:56 12/18/24 12:00 12/18/24 12:00 12/18/24 12:00 Narrative Exam General: No acute distress, well nourished Eye: PERRL, EOMI, normal conjunctiva, no scleral icterus HENT: Normocephalic, atraumatic, hearing intact to conversation at normal volume, moist oral mucosa Neck: Supple, non-tender, no JVD, no lymphadenopathy Lungs: Non-labored respirations, symmetric chest rise, Clear to auscultate bilaterally Heart: Peripheral pulses intact bilaterally, Regular rate and Rhythm. Abdomen: Soft, non-tender, non-distended Musculoskeletal: Normal range of motion and strength Skin: Skin is warm, dry, no rashes or lesions. Psychiatric: Cooperative, appropriate mood and affect Neuro: Cranial nerves II-XII grossly intact. Strength 5/5 throughout. Sensations intact to light touch. Objective Labs 12/19/24 05:30 12/19/24 05:30 Labs: Laboratory Results - last 24 hr 12/18/24 12/18/24 04:35 10:28 WBC 7.7 RBC 3.23 L Hgb 8.3 L Hct 26.0 L MCV 81 MCH 25.7 MCHC 31.9 RDW Std Deviation 45.1 Plt Count 233 D Neut % (Auto) 81 H Lymph % (Auto) 13 Sargent % (Auto) 5 Eos % (Auto) 0 Baso % (Auto) 0 Neut # (Auto) 6.3 Lymph # (Auto) 1.0 Sargent # (Auto) 0.4 Eos # (Auto) 0.0 Baso # (Auto) 0.0 Immature Gran # (Auto) 0.05 H Absolute Nucleated RBC 0.00 Immature Gran % 1 H Nucleated RBC % 0 PT 11.2 INR 1.0 APTT 27.6 Sodium 138 Potassium 4.7 Chloride 99 Carbon Dioxide 26.7 Anion Gap 12 BUN 24 H Creatinine 4.4 H* Estim Creat Clear Calc 17.6 L eGFR 12 L* BUN/Creatinine Ratio 5 L Glucose 190 H D Calculated Osmolality 284 Calcium 8.7 Corrected Calcium 8.7 Phosphorus 4.6 Magnesium 1.6 Total Bilirubin 0.2 L AST 28 ALT 26 Alkaline Phosphatase 113 Total Protein 6.9 Albumin 4.0 Globulin 2.9 Albumin/Globulin Ratio 1.4 HCG, Qual Negative Quality Measures Quality Measures VTE prophylaxis Assessment & Plan Assessment Current Active Medications: Generic Name Dose Route Start Last Admin Trade Name Freq PRN Reason Stop Dose Admin Acetaminophen 650 mg 12/10/24 23:48 12/16/24 17:26 Acetaminophen 325 Mg Tablet PO 01/09/25 23:47 650 mg Q6H PRN Administration PAIN SCALE 1-3 (mild Buspirone HCl 10 mg 12/11/24 21:00 12/17/24 20:53 Buspirone Hcl 5 Mg Tablet PO 01/10/25 20:59 10 mg HS CLEMENTINE Administration Calcium Acetate 667 mg 12/13/24 12:00 12/18/24 12:03 Calcium Acetate 667 Mg Tablet PO 01/12/25 11:59 Not Given TIDWM CLEMENTINE Carvedilol 12.5 mg 12/14/24 08:00 12/18/24 08:41 Carvedilol 12.5 Mg Tablet PO 01/13/25 07:59 Not Given BIDWM CLEMENTINE Citric Acid/Sodium Citrate 30 ml 12/12/24 09:00 12/18/24 08:42 Citric Acid/Sodium Citr 15 Ml Udc (Bicitra) PO 01/11/25 08:59 Not Given BID CLEMENTINE Dextrose 25 ml 12/10/24 23:51 Dextrose 50%-Water Inj 50 Ml Syringe IV 01/09/25 23:50 Q15MIN PRN BG 50-70 responsive npo pt Dextrose 50 ml 12/10/24 23:51 12/13/24 11:33 Dextrose 50%-Water Inj 50 Ml Syringe IV 01/09/25 23:50 50 ml Q15MIN PRN Administration BG <50 OR BG <70 & pt unresponsive Glucagon 1 mg 12/10/24 23:51 Glucagon Inj 1 Mg Vial IM Q15MIN PRN BG <70, and no IV access Heparin Sodium (Porcine) 3,800 unit 12/16/24 12:29 12/18/24 11:18 Heparin Sod Inj 1000 Unit/Ml Vial 10 Ml INDWELLCAT 12/30/24 12:28 3,800 unit X1 PRN Administration DIALYSIS Hydroxyzine HCl 25 mg 12/13/24 21:00 12/17/24 20:54 Hydroxyzine Hcl 25 Mg Tablet PO 01/12/25 20:59 25 mg HS CLEMENTINE Administration Ceftriaxone Sodium/Dextrose 1 gm in 50 mls @ 100 mls/hr 12/17/24 09:00 12/18/24 08:42 Rocephin/D5w 1gm Iv Premix IV 12/24/24 08:59 Not Given QDAY CLEMENTINE Insulin Glargine 18 unit 12/15/24 21:00 12/17/24 21:06 Insulin Glargine (Lantus) 5 Unit/0.05 Ml (Per 5 Units) SC 01/14/25 20:59 18 unit HS CLEMENTINE Administration Insulin Human Lispro 0 unit 12/18/24 06:00 12/18/24 12:04 Insulin Lispro (Admelog) 1 Unit/0.01 Ml Unit SC 01/17/25 05:59 Not Given Q6HR CLEMENTINE Protocol Nifedipine 60 mg 12/16/24 14:00 12/18/24 12:56 Nifedipine Xl 30 Mg Tabcr PO 01/15/25 13:59 60 mg QDAY CLEMENTINE Administration Ondansetron HCl 4 mg 12/10/24 23:48 12/16/24 23:39 Ondansetron Inj 2 Mg/Ml Inj 2 Ml IVP 01/09/25 23:47 4 mg Q6H PRN Administration NAUSEA OR VOMITING Protocol Pantoprazole Sodium 40 mg 12/16/24 14:00 12/18/24 08:42 Pantoprazole 40 Mg Tablet PO 01/15/25 13:59 Not Given QDAY CLEMENTINE Sennosides 1 tab 12/16/24 14:00 12/18/24 08:42 Senna Tablet PO 01/15/25 13:59 Not Given QDAY CLEMENTINE Protocol Sodium Chloride 3 ml 12/11/24 14:16 12/13/24 08:41 Sodium Chloride Rt Katherine 0.9% 3 Ml Nebu INH 01/10/25 14:15 3 ml PRN PRN Administration SOLN Plan 44-year-old female with past medical history of insulin-dependent type 2 diabetes, hypertension, GERD, history of valley fever presented to the ED on 12/10 with episode of left flank pain, nausea/vomiting and chills will be admitted for hypertensive emergency requiring close monitoring along with acute renal failure requiring urology and nephrology consultation and IV antibiotics for cystitis #Bladder mass -Cystoscopic examination by Urologist Dr. Friedman: found Bilateral hydronephrosis, large bladder mass occupying posterior bladder wall occupying the ureteral orifices. -After cystoscopy, patient noted that she had history of cervical cancer 3 years ago. -MRI abd/pelvis: Mild to moderate bilateral hydronephorsis, and dilated ureters extending to the bladder. -Per nephrology, the bladder mass is confined to the bladder. Plan: -PT and PTT ordered. -Patient planned for bilateral nephrostomy tube placement tomorrow -Once bilateral hydronephrosis stabilizes, will get biopsy of the bladder mass followed by bilateral urethral stents -No referral to GI or OBGYN. #Acute renal failure 2/2 Urinary Retention 2/2 Obstructive Uropathy -12/15: Cr:5.1, BUN:47 -Repeat UA 12/14 Urine protein +1 Urine blood +1 RBC 5 -Currently difficult to do kidney biopsy due to hydronephrosis. -I/O balance of -125ml. -Patient received hemodialysis today. Plan: -Nephrology consulted, Dr. Pierre, ordered nuclear renal scan, IgA levels for IgA nephropathy, Hepatitis A/B titers, ANCA titers, pending results, appreciate recommendations -Avoid nephrotoxic agents -Renally dose medications -Replete electrolytes as needed and follow-up with morning labs #Acute urinary retention #Bilateral hydronephrosis #Cystitis #Complicated UTI, nephrolithiasis #Hematuria -On exam, patient no longer has left flank flank with CVA tenderness -CT abdomen pelvis shows a thick-walled cavitary lesion in the right middle lobe and a 22 mm pulmonary nodule in the anterior right lower lobe, numerous bilateral nonobstructing renal calculi, moderate bilateral hydronephrosis without calculi and cystitis -Based on CTAP presentation, urinary retention due to intake of meclizine was suspected as patient started to take it 1wk everyday prior to coming to the hospital. -Renal Ultrasound (12/11/2024): Moderate bilateral hydronephrosis -Renal Ultrasound (12/12/2024): Moderate bilateral hydronephrosis. Plan: -Advised to stop taking meclizine. -Finished receiving IV ceftriaxone 2g IV qd (12/11-12/16). Now changed to IV ceftriaxone 1g IV qd (12/17-) #Hypertensive emergency, improving #Hypertension Patient has significant history of hypertension on home antihypertensives Presenting to the ED with acute renal failure and elevated systolic pressure in the 200s Plan: - continue Nifedipine 30mg PO qd - Coreg 6.25mg PO bid uptitrated to 12.5 PO BID today - discontinued Hydralazine 50mg PO TID 12/13/24 #Insulin-dependent type 2 diabetes Pertinent labs: 06/2024 A1C 11.1 12/11/24 A1C 8.0 Patient apparently takes 30 units of long-acting insulin twice a day Plan: Insulin glargine 15 units at bedtime Sliding scale #History of Valley Fever -CTAP(03/21/2024):30 mm thick-walled cavitary lesion partially visualized right midlung,, 22 mm pulmonary nodule anterior right lower lobe -CXR(07/16/2024): Poorly defined nodular density 18 mm in the right lower lobe, -CXR (12/10/2024):Opacity right base which may represent a pulmonary mass, 19 mm -CTAP(12/10/2024): thick walled 25 mm cavitary lesion in the right middle lobe and 22mm pulmonary nodule anterior right lower lobe Plan: -Fairly stable right lung pulmonary nodule. -Will continue to monitor. #GERD Chronic medical problems: All pertinent to the following presentation Plan: -Continue Pantoprazole 40 mg PO QD Health Maintenance: Lines: PIV Diet: Renal and carb consistent low Bowel: Senna GI prophylaxis: Pantoprazole 40 mg PO QD DVT prophylaxis: SCD Dispo: Nephrology neurology recommendations, IV antibiotics for cystitis Code: Full Assessment and plan discussed with my attending physician Dr. Jones and Dr. Kim (PGY-3) Dr. Silva (PGY-1)- Internal medicine resident Attending Provider Attestation/Addendum I have examined the patient, reviewed labs and imaging findings, discussed the case with the resident(s), and reviewed entered orders. I agree with the plan of care as outlined in this note, with these additional summaries/recommendations: Patient seen at bedside. No acute overnight events. Patient underwent cystoscopy yesterday for episode of gross hematuria and bilateral hydronephrosis. Cystoscopy revealed a large bladder mass occupying posterior bladder wall which is blocking ureteral orifices. Patient will go for bilateral nephrostomy tubes today. We will obtain MRI of the pelvis. Urology recommends GI and LIGHT ARMORED VEHICLE OFFICER consultations and we will reach out to the specialist. Patient will likely require transfer to tertiary care Medical Center for removal of bladder mass. Patient unfortunately developed severe SAPPHIRE leading to dialysis. In-house nephrology following. Continue to avoid nephrotoxic agents and renally dose medications. Status post renal biopsy. 24-hour urine output approximately 700 cc. Continue to monitor urine output closely. Continue basal and bolus insulin for diabetes mellitus type 2. Continue home antihypertensives. Patient updated on the plan and is in agreement. All questions answered to satisfaction. Please see residents note for additional details and management. Dr. Robert MD
[2024-12-18] MEDS: ACETAMINOPHEN 325 MG TABLET 650 MG PO (16:26)
--- NOTE | 2024-12-18 16:46 | XR_ITS ---
Examination: MRI abdomen, without contrast Date and time of exam: December 18, 2024 1422 hours INDICATIONS: Generalized abdominal pain beginning 2 weeks ago Technique: Multiple axial sagittal and coronal images of the MA have been obtained with the Siemens high-resolution 1.5 Melanie MRI scanner. Images obtained include T2-weighted fat-suppressed sagittal sections, TR 3500, TE 46, T2 weighted coronal fat suppressed images, TR 3050, TE 84, T2-weighted transverse fat suppressed images, TR 3260, TE 63, proton density transverse images, TR 4720 TE 46, and T1 weighted coronal images, TR 560, TE 13. Findings: No focal liver lesions Gallstones, gallbladder wall is not thickened. Normal common hepatic common bile duct Negative for pancreatitis Spleen is not enlarged Mild to moderate bilateral hydronephrosis Minimal perinephric stranding Aorta normal size IMPRESSION: Cholelithiasis, negative for cholecystitis Normal common hepatic common bile duct Mild to moderate bilateral hydronephrosis
--- NOTE | 2024-12-18 16:47 | XR_ITS ---
Examination: MRI pelvis, without contrast Date and time of exam: December 18, 2024 1451 hours INDICATIONS: History renal calculi, hydronephrosis on examinations this week Technique: Multiple axial sagittal and coronal images of the pelvis have been obtained with the Siemens high-resolution 1.5 Melanie MRI scanner. Images obtained include T2-weighted fat-suppressed sagittal sections, TR 3500, TE 46, T2 weighted coronal fat suppressed images, TR 3050, TE 84, T2-weighted transverse fat suppressed images, TR 3260, TE 63, proton density transverse images, TR 4720 TE 46, and T1 weighted coronal images, TR 560, TE 13. Findings: Dilated ureters noted extending to the bladder, no ureteral calculi Partially retroverted uterus, 8.9 x 4.2 x 4.8 cm No uterine mass or dilated endometrial stripe No presacral mass No free fluid in the pelvis No bowel obstruction Homogeneous marrow signal with moderate degenerative disc disease L5-S1 No common iliac and external iliac internal iliac or common femoral lymphadenopathy IMPRESSION: Dilated ureters extending to the bladder, consider vesicoureteral reflux No uterine or adnexal mass No pelvic lymphadenopathy
[2024-12-18] MEDS: CALCIUM ACETATE 667 MG TABLET PO (17:48)
[2024-12-18] MEDS: INSULIN GLARGINE (Lantus) 5 UNIT/0.05 ML (PER 5 UNITS) 18 UNIT SC (20:44)
[2024-12-18] MEDS: CITRIC ACID/SODIUM CITR 15 ML UDC (BICITRA) 30 ML PO (20:44)
[2024-12-18] MEDS: INSULIN LISPRO (AdmeLOG) 1 UNIT/0.01 ML UNIT SC (23:37)
[2024-12-19] VITALS (17 sets, daily range): BP systolic 142–191; BP diastolic 75–92; PULSE 71–92; RESP 16–97; TEMP 36.2–37; O2SAT 92–100
--- NOTE | 2024-12-19 | XR_ITS ---
Examination: Right percutaneous nephrostomy drainage catheter placement Ultrasound-guided renal access right kidney Right nephrostogram Fluoroscopy Right abdomen 2 views Date and time: December 19, 2024 1446 hours INDICATIONS: Bilateral hydronephrosis secondary to bladder cancer obstruction TECHNIQUE AND FINDINGS: Informed consent provided. Timeout performed. Skin prepped over the right flank and sterile drape applied maximum barrier sterile technique hand hygiene ultrasound sterile technique Site-Rite portable apparatus utilized to confirm dilated right renal collecting system Utilizing ultrasonographic guidance successful 21-gauge needle puncture into the right renal collecting system 0.18 wire guide is introduced through the needle into the renal collecting system followed by 5 [place] catheter, 0.35 wire guide and placed through the catheter with dilators and eventually 10 [place] nephrostomy drainage catheter Hand injection 10 cc Cystografin demonstrates satisfactory position of the nephrostomy drainage catheter Fluoroscopy 1.1 minute radiation dose 45.20 milligray 2 spot fluoroscopic abdomen films Estimated blood loss 3 cc IMPRESSION: Successful right percutaneous nephrostomy drainage catheter placement Successful ultrasound-guided renal access right kidney
[2024-12-19] MEDS: HYDROmorphone INJ 2 MG/ML VIAL 0.5 MG IVP ×3 (02:44→20:08)
--- NOTE | 2024-12-19 06:00 | XR_ITS ---
Examination: Fluoroscopically guided left percutaneous nephrostomy drainage catheter placement Ultrasound-guided renal access left renal collecting system Left nephrostogram Fluoroscopy AP abdomen 2 views Date and time of procedure: December 19, 2024 1544 hours INDICATIONS: Bladder cancer diagnosis with bilateral significant hydronephrosis Informed consent provided. A timeout was completed verifying correct patient, procedure, site and positioning. Technique: Informed consent provided. Timeout performed. Skin prepped over the left flank and sterile drape applied hand hygiene maximum barrier sterile technique. Gadolinium sterile technique 1% lidocaine administered for local anesthesia Site right portable apparatus utilized to confirm dilated left renal collecting system Utilizing ultrasonographic guidance successful 21-gauge needle puncture into the left renal collecting system 0.18 wire guide is introduced into the renal collecting system followed by 5 [place] catheter, 0.35 wire guide multiple dilators and a 10 [place] nephrostomy catheter in satisfactory position Hand injection 20 cc Cystografin demonstrates satisfactory position of the nephrostomy catheter Fluoroscopy 3.7 minutes radiation dose 140.3 milligray 2 spot fluoroscopic abdomen films Estimated blood loss 5 cc Complete pathology report to follow. Impression: Successful percutaneous nephrostomy drainage catheter placement Successful ultrasound-guided renal access left renal collecting system
[2024-12-19 06:22] LABS: Basophils # (Auto) 0.1 Thou/mm3 (0.0-0.2); Basophils % (Auto) 1 % (0-2.5); Eosinophils # (Auto) 0.2 Thou/mm3 (0.0-0.5); Eosinophils % (Auto) 1 % (0-10); Hematocrit 26.3 % (36.0-46.0); Immature Granulocytes Auto 0.05 Thou/mm3 (0.00-0.00); Lymphocytes # (Auto) 1.9 Thou/mm3 (1.0-4.8); Lymphocytes % (Auto) 18 % (10-50); Mean Corpuscular HGB Conc 31.2 g/dl (31.0-37.0); Mean Corpuscular Hemoglobin 24.9 pg (25.0-35.0); Mean Corpuscular Volume 80 fL (80-100); Monocytes # (Auto) 0.8 Thou/mm3 (0.0-0.8); Monocytes % (Auto) 8 % (0-12); Neutrophils # (Auto) 7.6 Thou/mm3 (1.8-7.7); Neutrophils % (Auto) 72 % (37-80); Nucleated Red Blood Cell # 0.02 Thou/mm3 (0.00-0.00); Nucleated Red Blood Cell % 0 /100 WBC (0); Platelet Count 319 Thou/mm3 (140-440); RDW Standard Deviation 44.7 fL (36.4-46.3); Red Blood Count 3.29 Miln/mm3 (4.00-5.20); White Blood Count 10.6 Thou/mm3 (3.6-11.0)
[2024-12-19 06:27] LABS: ANA Screen, IFA NEGATIVE (NEGATIVE); ANCA Screen NEGATIVE (NEGATIVE); Complement Component C3* 151 mg/dL (83-193); Complement Component C4c* 29 mg/dL (15-57); IgA, Serum* 126 mg/dL (47-310); Myeloperoxidase Ab <1.0 AI (<1.0); Proteinase-3 Ab <1.0 AI (<1.0)
[2024-12-19 06:47] LABS: INR 1.0 (0.9-1.3); Partial Thromboplastin Time 30.6 Seconds (22.0-36.0); Prothrombin Time 11.2 Seconds (9.0-12.2)
[2024-12-19 06:54] LABS: Hemoglobin 8.2 g/dL (12.0-16.0)
[2024-12-19 07:10] LABS: Alanine Aminotransferase 19 U/L (10-49); Albumin, Serum 4.0 gm/dL (3.5-5.0); Albumin/Globulin Ratio 1.4 (1.2-2.2); Alkaline Phosphatase 103 U/L (46-116); Anion Gap 11 (7-16); Aspartate Amino Transferase 16 U/L (0-34); BUN/Creatinine Ratio 5 Ratio (12-20); Bilirubin,Total 0.3 mg/dL (0.3-1.2); Blood Urea Nitrogen 20 mg/dL (9-23); Calcium 8.7 mg/dL (8.3-10.6); Calcium (Corrected) 8.7 mg/dL (8.5-10.1); Carbon Dioxide 29.9 mMol/L (20.0-31.0); Chloride 101 mMol/L (98-107); Creatinine (Component) 4.1 mg/dL (0.6-1.3); Estimated Creatinine Clearance 18.4 mL/min (>60); Globulin 2.8 gm/dL (2.3-3.5); Glucose 102 mg/dL (74-106); Magnesium 1.5 mg/dL (1.6-2.6); Osmolality,Calculated 285 (275-295); Phosphorous 3.4 mg/dL (2.4-5.1); Potassium 4.0 mMol/L (3.4-5.1); Sodium 142 mMol/L (136-145); Total Protein 6.8 gm/dL (5.7-8.2); eGFR 13 See Note
[2024-12-19] MEDS: ONDANSETRON INJ 2 MG/ML INJ 2 ML 4 MG IVP ×2 (08:57→23:34)
[2024-12-19] MEDS: Magnesium Sulfate 2 GM Ivpb 2 GM/50 ML BAG IV (08:57)
[2024-12-19] MEDS: cefTRIAXone/D5w 1gm IV premix 1 GM/50 ML BAG IV (08:57)
[2024-12-19] MEDS: MAGNESIUM OXIDE 400 MG TABLET PO (08:58)
[2024-12-19] MEDS: FAMOTIDINE 20 MG TABLET PO (08:58)
[2024-12-19] MEDS: CALCIUM ACETATE 667 MG TABLET PO (08:58)
[2024-12-19] MEDS: CITRIC ACID/SODIUM CITR 15 ML UDC (BICITRA) 30 ML PO ×2 (08:59→20:42)
[2024-12-19] MEDS: NIFEdipine XL 30 MG TABCR 60 MG PO (08:59)
--- NOTE | 2024-12-19 10:58 | PC.CM ---
I spoke to Dr. Mckeon and she states transfer remains on hold at this time. The plan is for patient to get a nephrostomy tube placed today. Dr. Mckeon states she will follow up with Dr. Friedman to see if he still wants to continue with transfer after she gets the nephrostomy tube.
--- NOTE | 2024-12-19 13:44 | ESPR_ITS ---
Documentation for date of: 12/19/24 Senior resident attestation: Patient evaluated and examined at the bedside, plan of care discussed with rest of the team including my attending physician, except as noted. Patient is currently being treated for UTI and possible obstructive nephropathy. Patient had persistent hematuria of on multiple previous urinalysis. Urology was consulted, Dr. Friedman initially recommended Oliva's catheter placement later cystoscopy was done which showed bladder mass obstructing openings of ureter. The lesion was not biopsied, landscape crew leader Dr Pineda is also following the patient, per urology updates are given to the landscape crew leader. Urology recommended getting MRI abdominal pelvis, and GI and FISCAL SERVICES MANAGER consult, possible transfer to tertiary center for further management. IR nephrostomy tube placement was ordered, currently on hemodialysis. Will continue to trend renal function, transfer nurse is aware of transfer for Director Of [employer] Onc services. Quresh PGY3 Subjective Subjective Interval history: No Overnight events. Labs reviewed and patient examined at the bedside. Patient received bilatereal percutaneous nephrostomy tube placement today. Patient complained of pain, gave dilaudid 0.5 mg IV x1. Per urology, no hemodialysis today and planned for outpatient hemodialysis. Once hydronephrosis improves, planned for bilateral urethral stents and bladder tumor biopsy. Patients complains of generalized pain. Patient appears emotionally distressed and tearful during the encounter. Denies chest pain, shortness of breathe, abdominal pain, fevers or chills. Exam Vital Signs Temp Pulse Resp BP Pulse Ox O2 Del Method O2 Flow Rate 98.0 F 88 18 191/92 H 93 L Room Air 2 12/19/24 08:00 12/19/24 08:59 12/19/24 08:00 12/19/24 08:59 12/19/24 08:00 12/19/24 08:00 12/18/24 12:00 Narrative Exam General: No acute distress, well nourished Eye: PERRL, EOMI, normal conjunctiva, no scleral icterus HENT: Normocephalic, atraumatic, hearing intact to conversation at normal volume, moist oral mucosa Neck: Supple, non-tender, no JVD, no lymphadenopathy Lungs: Non-labored respirations, symmetric chest rise, Clear to auscultate bilaterally Heart: Peripheral pulses intact bilaterally, Regular rate and Rhythm. Abdomen: Soft, non-tender, non-distended Musculoskeletal: Normal range of motion and strength Skin: Skin is warm, dry, no rashes or lesions. Psychiatric: Cooperative, appropriate mood and affect Neuro: Cranial nerves II-XII grossly intact. Strength 5/5 throughout. Sensations intact to light touch. Objective Labs 12/20/24 04:37 12/20/24 04:37 Labs: Laboratory Results - last 24 hr 12/14/24 12/19/24 04:20 05:30 WBC 10.6 RBC 3.29 L Hgb 8.2 L Hct 26.3 L MCV 80 MCH 24.9 L MCHC 31.2 RDW Std Deviation 44.7 Plt Count 319 D Neut % (Auto) 72 Lymph % (Auto) 18 Irwin % (Auto) 8 Eos % (Auto) 1 Baso % (Auto) 1 Neut # (Auto) 7.6 Lymph # (Auto) 1.9 Irwin # (Auto) 0.8 Eos # (Auto) 0.2 Baso # (Auto) 0.1 Immature Gran # (Auto) 0.05 H Absolute Nucleated RBC 0.02 H Immature Gran % 1 H Nucleated RBC % 0 PT 11.2 INR 1.0 APTT 30.6 Sodium 142 Potassium 4.0 D Chloride 101 Carbon Dioxide 29.9 Anion Gap 11 BUN 20 Creatinine 4.1 H* Estim Creat Clear Calc 18.4 L eGFR 13 L* BUN/Creatinine Ratio 5 L Glucose 102 D Calculated Osmolality 285 Calcium 8.7 Corrected Calcium 8.7 Phosphorus 3.4 Magnesium 1.5 L Total Bilirubin 0.3 AST 16 ALT 19 Alkaline Phosphatase 103 Total Protein 6.8 Albumin 4.0 Globulin 2.8 Albumin/Globulin Ratio 1.4 Serum IgA 126 DEMARCUS Screen NEGATIVE DEMARCUS Titer TNP DEMARCUS Titer 2 TNP DEMARCUS Titer 3 TNP DEMARCUS Pattern TNP DEMARCUS Pattern 2 TNP DEMARCUS Pattern 3 TNP ANCA Screen NEGATIVE c-ANCA Titer TNP Anti-Proteinase 3 <1.0 p-ANCA Titer TNP Atypical p-ANCA Titer TNP Anti-Myeloperoxidase <1.0 Complement C3 151 Complement C4c 29 Quality Measures Quality Measures VTE prophylaxis Assessment & Plan Assessment Current Active Medications: Generic Name Dose Route Start Last Admin Trade Name Freq PRN Reason Stop Dose Admin Acetaminophen 650 mg 12/10/24 23:48 12/18/24 16:26 Acetaminophen 325 Mg Tablet PO 01/09/25 23:47 650 mg Q6H PRN Administration PAIN SCALE 1-3 (mild Buspirone HCl 10 mg 12/11/24 21:00 12/18/24 20:44 Buspirone Hcl 5 Mg Tablet PO 01/10/25 20:59 10 mg HS CLEMENTINE Administration Calcium Acetate 667 mg 12/13/24 12:00 12/19/24 11:39 Calcium Acetate 667 Mg Tablet PO 01/12/25 11:59 Not Given TIDWM CLEMENTINE Carvedilol 12.5 mg 12/14/24 08:00 12/19/24 08:58 Carvedilol 12.5 Mg Tablet PO 01/13/25 07:59 12.5 mg BIDWM CLEMENTINE Administration Citric Acid/Sodium Citrate 30 ml 12/12/24 09:00 12/19/24 08:59 Citric Acid/Sodium Citr 15 Ml Udc (Bicitra) PO 01/11/25 08:59 30 ml BID CLEMENTINE Administration Dextrose 25 ml 12/10/24 23:51 Dextrose 50%-Water Inj 50 Ml Syringe IV 01/09/25 23:50 Q15MIN PRN BG 50-70 responsive npo pt Dextrose 50 ml 12/10/24 23:51 12/13/24 11:33 Dextrose 50%-Water Inj 50 Ml Syringe IV 01/09/25 23:50 50 ml Q15MIN PRN Administration BG <50 OR BG <70 & pt unresponsive Famotidine 20 mg 12/19/24 09:00 12/19/24 08:58 Famotidine 20 Mg Tablet PO 01/18/25 08:59 20 mg QDAY CLEMENTINE Administration Glucagon 1 mg 12/10/24 23:51 Glucagon Inj 1 Mg Vial IM Q15MIN PRN BG <70, and no IV access Heparin Sodium (Porcine) 3,800 unit 12/16/24 12:29 12/18/24 11:18 Heparin Sod Inj 1000 Unit/Ml Vial 10 Ml INDWELLCAT 12/30/24 12:28 3,800 unit X1 PRN Administration DIALYSIS Hydralazine HCl 10 mg 12/19/24 09:12 Hydralazine Inj 20 Mg/Ml Vial IVP 01/18/25 09:11 Q6HR PRN SBP > 180 Hydroxyzine HCl 25 mg 12/13/24 21:00 12/18/24 20:44 Hydroxyzine Hcl 25 Mg Tablet PO 01/12/25 20:59 25 mg HS CLEMENTINE Administration Ceftriaxone Sodium/Dextrose 1 gm in 50 mls @ 100 mls/hr 12/17/24 09:00 12/19/24 08:57 Rocephin/D5w 1gm Iv Premix IV 12/24/24 08:59 100 mls/hr QDAY CLEMENTINE Administration Insulin Glargine 18 unit 12/15/24 21:00 12/18/24 20:44 Insulin Glargine (Lantus) 5 Unit/0.05 Ml (Per 5 Units) SC 01/14/25 20:59 18 unit HS CLEMENTINE Administration Insulin Human Lispro 0 unit 12/18/24 06:00 12/19/24 11:40 Insulin Lispro (Admelog) 1 Unit/0.01 Ml Unit SC 01/17/25 05:59 Not Given Q6HR CLEMENTINE Protocol Nifedipine 60 mg 12/16/24 14:00 12/19/24 08:59 Nifedipine Xl 30 Mg Tabcr PO 01/15/25 13:59 60 mg QDAY CLEMENTINE Administration Ondansetron HCl 4 mg 12/10/24 23:48 12/19/24 08:57 Ondansetron Inj 2 Mg/Ml Inj 2 Ml IVP 01/09/25 23:47 4 mg Q6H PRN Administration NAUSEA OR VOMITING Protocol Sennosides 1 tab 12/16/24 14:00 12/19/24 08:58 Senna Tablet PO 01/15/25 13:59 1 tab QDAY CLEMENTINE Administration Protocol Sodium Chloride 3 ml 12/11/24 14:16 12/13/24 08:41 Sodium Chloride Rt Katherine 0.9% 3 Ml Nebu INH 01/10/25 14:15 3 ml PRN PRN Administration SOLN Plan 44-year-old female with past medical history of insulin-dependent type 2 diabetes, hypertension, GERD, history of valley fever presented to the ED on 12/10 with episode of left flank pain, nausea/vomiting and chills will be admitted for hypertensive emergency requiring close monitoring along with acute renal failure requiring urology and nephrology consultation and IV antibiotics for cystitis #Bladder mass -Cystoscopic examination by Urologist Dr. Friedman: found Bilateral hydronephrosis, large bladder mass occupying posterior bladder wall occupying the ureteral orifices. -After cystoscopy, patient noted that she had history of cervical cancer 3 years ago. -MRI abd/pelvis: Mild to moderate bilateral hydronephorsis, and dilated ureters extending to the bladder. -Per nephrology, the bladder mass is confined to the bladder. Plan: -PT and PTT ordered. -Patient received bilatereal percutaneous nephrostomy tube placement today. -Once bilateral hydronephrosis stabilizes, will get biopsy of the bladder mass followed by bilateral urethral stents #Acute renal failure 2/2 Urinary Retention 2/2 Obstructive Uropathy -12/15: Cr:5.1, BUN:47 -Repeat UA 12/14 Urine protein +1 Urine blood +1 RBC 5 -Currently difficult to do kidney biopsy due to hydronephrosis. -I/O balance of -925ml. Plan: -Nephrology consulted, Dr. Pierre, ordered nuclear renal scan, IgA levels for IgA nephropathy, Hepatitis A/B titers, ANCA titers, pending results, appreciate recommendations -Avoid nephrotoxic agents -Renally dose medications -Replete electrolytes as needed and follow-up with morning labs -Per urology, no hemodialysis today and planned for outpatient hemodialysis. #Acute urinary retention #Bilateral hydronephrosis #Cystitis #Complicated UTI, nephrolithiasis #Hematuria -On exam, patient no longer has left flank flank with CVA tenderness -CT abdomen pelvis shows a thick-walled cavitary lesion in the right middle lobe and a 22 mm pulmonary nodule in the anterior right lower lobe, numerous bilateral nonobstructing renal calculi, moderate bilateral hydronephrosis without calculi and cystitis -Based on CTAP presentation, urinary retention due to intake of meclizine was suspected as patient started to take it 1wk everyday prior to coming to the hospital. -Renal Ultrasound (12/11/2024): Moderate bilateral hydronephrosis -Renal Ultrasound (12/12/2024): Moderate bilateral hydronephrosis. Plan: -Advised to stop taking meclizine. -Finished receiving IV ceftriaxone 2g IV qd (12/11-12/16). Now changed to IV ceftriaxone 1g IV qd (12/17-) #Hypertensive emergency, improving #Hypertension Patient has significant history of hypertension on home antihypertensives Presenting to the ED with acute renal failure and elevated systolic pressure in the 200s Plan: - continue Nifedipine 30mg PO qd - Coreg 6.25mg PO bid uptitrated to 12.5 PO BID today - discontinued Hydralazine 50mg PO TID 12/13/24 #Insulin-dependent type 2 diabetes Pertinent labs: 06/2024 A1C 11.1 12/11/24 A1C 8.0 Patient apparently takes 30 units of long-acting insulin twice a day Plan: Insulin glargine 15 units at bedtime Sliding scale #History of Valley Fever -CTAP(03/21/2024):30 mm thick-walled cavitary lesion partially visualized right midlung,, 22 mm pulmonary nodule anterior right lower lobe -CXR(07/16/2024): Poorly defined nodular density 18 mm in the right lower lobe, -CXR (12/10/2024):Opacity right base which may represent a pulmonary mass, 19 mm -CTAP(12/10/2024): thick walled 25 mm cavitary lesion in the right middle lobe and 22mm pulmonary nodule anterior right lower lobe Plan: -Fairly stable right lung pulmonary nodule. -Will continue to monitor. #GERD Chronic medical problems: All pertinent to the following presentation Plan: -Continue Pantoprazole 40 mg PO QD Health Maintenance: Lines: PIV Diet: Renal and carb consistent low Bowel: Senna GI prophylaxis: Pantoprazole 40 mg PO QD DVT prophylaxis: SCD Dispo: Nephrology neurology recommendations, IV antibiotics for cystitis Code: Full Assessment and plan discussed with my attending physician Dr. Jones and Dr. Kim (PGY-3) Dr. Silva (PGY-1)- Internal medicine resident Attending Provider Attestation/Addendum I have examined the patient, reviewed labs and imaging findings, discussed the case with the resident(s), and reviewed entered orders. I agree with the plan of care as outlined in this note, with these additional summaries/recommendations: Patient seen at bedside. No acute overnight events. Patient reports her pain is currently controlled but endorses anxiety. Patient underwent cystoscopy for episode of gross hematuria and bilateral hydronephrosis. Cystoscopy revealed a large bladder mass occupying posterior bladder wall which is blocking ureteral orifices. Patient will go for bilateral nephrostomy tubes today. Interestingly MRI of abdomen and pelvis did not reveal any bladder mass although this was obtained without contrast given patient's renal function. We will follow-up with urology if patient needs transfer for removal of bladder mass or if this can be done in-house versus outpatient. Patient unfortunately developed severe SAPPHIRE leading to dialysis. In-house nephrology following. Continue to avoid nephrotoxic agents and renally dose medications. Status post renal biopsy. 24- hour urine output approximately 800 cc. Continue to monitor urine output closely. Continue basal and bolus insulin for diabetes mellitus type 2. Continue home antihypertensives. Patient updated on the plan and is in agreement. All questions answered to satisfaction. Please see residents note for additional details and management. Dr. Robert MD
--- NOTE | 2024-12-19 14:07 | XR_ITS ---
Examination: Ultrasound assessment bilateral renal collecting systems Date and Time: December 19, 2024 1415 hours. Indications: Preop bilateral nephrostomies TECHNIQUE AND FINDINGS: Grayscale sonographic images obtained for localization bilateral renal collecting systems IMPRESSION: Grayscale sonographic images obtained for localization of dilated bilateral renal collecting systems
[2024-12-19] MEDS: fentaNYL CIT INJ 50 mCg/ML AMP 2ML 175 MCG IVP (14:35)
[2024-12-19] MEDS: LIDOCAINE INJ PF 1% 30 ML VIAL INFL (14:40)
[2024-12-19] MEDS: LIDOCAINE INJ PF 1% 30 ML VIAL 5 ML EPID (15:00)
--- NOTE | 2024-12-19 15:00 | PC.SS ---
Rounding: Pending MRI, nephrostomy tube placement, poss HLOC
--- NOTE | 2024-12-19 15:34 | ESPR_ITS ---
Documentation for date of: 12/19/24 Subjective Subjective Interval history: Ms. Cedillo is a 44-year-old female with past medical history of insulin- dependent type 2 diabetes, hypertension, GERD, history of valley fever untreated presented to the ED on 12/10 with episode of left flank pain, nausea/vomiting and chills. Patient states that the chills started roughly an hour ago but that she has been having progressively worsening left flank pain radiating to her back. Patient denies having any dysuria but does state that she has been having lilia hematuria for several days. Patient denies having any fevers but she does state that she has been having chills. Patient also complains of suprapubic pain and mentions that she feels pain near her ovaries. Patient has not seen PCP regarding the symptoms but she was seen several weeks ago for GERD like symptoms and was given medications. Patient otherwise denies having any concerning symptoms such as chest pain, dizziness, shortness of breath. In the ED, patient presented in hypertensive emergency with a blood pressure 187/83, other vitals wnl. Pertinent lab findings included WBC of 9, hemoglobin 7.9, potassium of 5.4, BUN of 31, creatinine 3.9, EGFR of 14, magnesium 1.6, troponin less than 0.02, BNP of 235, urinalysis shows hematuria and mild pyuria but no bacteria. Chest x-ray shows mild prominence of ventricles along with opacity in the right base concerning for pulmonary mass, EKG shows sinus rhythm without any concerning ST changes and CT abdomen pelvis shows a thick-walled cavitary lesion in the right middle lobe and a 22 mm pulmonary nodule in the anterior right lower lobe, numerous bilateral nonobstructing renal calculi, moderate bilateral hydronephrosis without calculi and cystitis. Patient will be admitted for hypertensive emergency requiring close monitoring along with acute renal failure requiring urology and nephrology consultation and IV antibiotics for cystitis Upon seeing the patient currently, she is on Mg Sulfate, Ceftriaxone, Carvedilol 6.25 mg, and maintenance IV fluids with a slightly improved blood pressure of 168/88 with the rest of vitals wnl. Patient states she is currently feeling much better now. States that she still has some nausea, L flank pain radiating to back and some dizziness when she stands up for too long. Patient states she has noticed blood in her urine today and ever since March. Patient endorses having bowel movements. Patient denies fever, headache, chest pain, shortness of breath, vomiting. 12/16/24: Patient was seen and examined at bedside with family members. Patient received dialysis catheter yesterday. Plan to get kidney biopsy today before starting dialysis. No new complaints. Denies chest pain, SOB, fever, flank pain or abdominal pain. Cr and BUN continue to stay elevated despite making good urine. 12/17/24 No acute events overnight. Patient seen and examined at bedside. Patient had renal biopsy and first HD done yesterday. Planning to receieve cystoscopy followed by urethral stents. No new complaints. Denies chest pain, SOB, fever, flank pain or abdominal pain. Mild improvement in Cr after first HD yesterday, will get HD again today. 12/18/24 No acute events overnight. Patient seen and examined at bedside getting dialysis. Patient is currently getting HD #3 today. Patient states she is having some non-radiating pain in the right abdomen. She also states she has not been able to make urine herself anymore. Denies chest pain, SOB, fever, flank pain. Cystoscopy showed bladder tumor; ordered MR Abd/Pelvis. Based on results, consult GI/OBGYN 12/19/24 Overnight, patient was reported by the night team to have had abdominal pain with some black stools, given Dilaudid. Vitals and labs reviewed. Patient seen and examined at bedside getting dialysis. Patient tolerated HD well yesterday. Patient states she is having an easier time making urine today. Patient currently denies chest pain, SOB, fever, abdominal pain, flank pain. Plan to get bilateral nephrostomy tubes placed today. Exam Vital Signs Temp Pulse Resp BP Pulse Ox O2 Del Method O2 Flow Rate 98.0 F 76 20 158/82 H 98 Room Air 3 12/19/24 12:00 12/19/24 15:19 12/19/24 15:19 12/19/24 15:19 12/19/24 15:19 12/19/24 15:19 12/19/24 15:15 Narrative Exam GENERAL: a&o x3, no acute distress, resting in bed HEENT: NC/AT. Moist mucosa. PERRLA/EOMI. R IJ dialysis catheter CARDIO: Heart RRR, no murmurs appreciated PULM: Lungs CTA B/L, no resp distress ABD: soft, non-distended, non-tender SKIN: No edema bilateral lower extremities. No wounds/discoloration/rashes/amputations. +Pedal pulses present B/L. MSK: No joint swelling or pain/tenderness noted. EXT: upper and lower extremities atraumatic in appearance, able to move all 4 extremities. NEURO: no focal neurologic deficits noted Objective Labs 12/20/24 04:37 12/20/24 04:37 Labs: Laboratory Results - last 24 hr 12/14/24 12/19/24 04:20 05:30 WBC 10.6 RBC 3.29 L Hgb 8.2 L Hct 26.3 L MCV 80 MCH 24.9 L MCHC 31.2 RDW Std Deviation 44.7 Plt Count 319 D Neut % (Auto) 72 Lymph % (Auto) 18 [place] % (Auto) 8 Eos % (Auto) 1 Baso % (Auto) 1 Neut # (Auto) 7.6 Lymph # (Auto) 1.9 [place] # (Auto) 0.8 Eos # (Auto) 0.2 Baso # (Auto) 0.1 Immature Gran # (Auto) 0.05 H Absolute Nucleated RBC 0.02 H Immature Gran % 1 H Nucleated RBC % 0 PT 11.2 INR 1.0 APTT 30.6 Sodium 142 Potassium 4.0 D Chloride 101 Carbon Dioxide 29.9 Anion Gap 11 BUN 20 Creatinine 4.1 H* Estim Creat Clear Calc 18.4 L eGFR 13 L* BUN/Creatinine Ratio 5 L Glucose 102 D Calculated Osmolality 285 Calcium 8.7 Corrected Calcium 8.7 Phosphorus 3.4 Magnesium 1.5 L Total Bilirubin 0.3 AST 16 ALT 19 Alkaline Phosphatase 103 Total Protein 6.8 Albumin 4.0 Globulin 2.8 Albumin/Globulin Ratio 1.4 Serum IgA 126 DEMARCUS Screen NEGATIVE DEMARCUS Titer TNP DEMARCUS Titer 2 TNP DEMARCUS Titer 3 TNP DEMARCUS Pattern TNP DEMARCUS Pattern 2 TNP DEMARCUS Pattern 3 TNP ANCA Screen NEGATIVE c-ANCA Titer TNP Anti-Proteinase 3 <1.0 p-ANCA Titer TNP Atypical p-ANCA Titer TNP Anti-Myeloperoxidase <1.0 Complement C3 151 Complement C4c 29 Quality Measures Quality Measures VTE prophylaxis Assessment & Plan Assessment Current Active Medications: Generic Name Dose Route Start Last Admin Trade Name Freq PRN Reason Stop Dose Admin Acetaminophen 650 mg 12/10/24 23:48 12/18/24 16:26 Acetaminophen 325 Mg Tablet PO 01/09/25 23:47 650 mg Q6H PRN Administration PAIN SCALE 1-3 (mild Buspirone HCl 10 mg 12/11/24 21:00 12/18/24 20:44 Buspirone Hcl 5 Mg Tablet PO 01/10/25 20:59 10 mg HS CLEMENTINE Administration Calcium Acetate 667 mg 12/13/24 12:00 12/19/24 11:39 Calcium Acetate 667 Mg Tablet PO 01/12/25 11:59 Not Given TIDWM CLEMENTINE Carvedilol 12.5 mg 12/14/24 08:00 12/19/24 08:58 Carvedilol 12.5 Mg Tablet PO 01/13/25 07:59 12.5 mg BIDWM CLEMENTINE Administration Citric Acid/Sodium Citrate 30 ml 12/12/24 09:00 12/19/24 08:59 Citric Acid/Sodium Citr 15 Ml Udc (Bicitra) PO 01/11/25 08:59 30 ml BID CLEMENTINE Administration Dextrose 25 ml 12/10/24 23:51 Dextrose 50%-Water Inj 50 Ml Syringe IV 01/09/25 23:50 Q15MIN PRN BG 50-70 responsive npo pt Dextrose 50 ml 12/10/24 23:51 12/13/24 11:33 Dextrose 50%-Water Inj 50 Ml Syringe IV 01/09/25 23:50 50 ml Q15MIN PRN Administration BG <50 OR BG <70 & pt unresponsive Famotidine 20 mg 12/19/24 09:00 12/19/24 08:58 Famotidine 20 Mg Tablet PO 01/18/25 08:59 20 mg QDAY CLEMENTINE Administration Glucagon 1 mg 12/10/24 23:51 Glucagon Inj 1 Mg Vial IM Q15MIN PRN BG <70, and no IV access Heparin Sodium (Porcine) 3,800 unit 12/16/24 12:29 12/18/24 11:18 Heparin Sod Inj 1000 Unit/Ml Vial 10 Ml INDWELLCAT 12/30/24 12:28 3,800 unit X1 PRN Administration DIALYSIS Hydralazine HCl 10 mg 12/19/24 09:12 Hydralazine Inj 20 Mg/Ml Vial IVP 01/18/25 09:11 Q6HR PRN SBP > 180 Hydroxyzine HCl 25 mg 12/13/24 21:00 12/18/24 20:44 Hydroxyzine Hcl 25 Mg Tablet PO 01/12/25 20:59 25 mg HS CLEMENTINE Administration Ceftriaxone Sodium/Dextrose 1 gm in 50 mls @ 100 mls/hr 12/17/24 09:00 12/19/24 08:57 Rocephin/D5w 1gm Iv Premix IV 12/24/24 08:59 100 mls/hr QDAY CLEMENTINE Administration Insulin Glargine 18 unit 12/15/24 21:00 12/18/24 20:44 Insulin Glargine (Lantus) 5 Unit/0.05 Ml (Per 5 Units) SC 01/14/25 20:59 18 unit HS CLEMENTINE Administration Insulin Human Lispro 0 unit 12/18/24 06:00 12/19/24 11:40 Insulin Lispro (Admelog) 1 Unit/0.01 Ml Unit SC 01/17/25 05:59 Not Given Q6HR CLEMENTINE Protocol Nifedipine 60 mg 12/16/24 14:00 12/19/24 08:59 Nifedipine Xl 30 Mg Tabcr PO 01/15/25 13:59 60 mg QDAY CLEMENTINE Administration Ondansetron HCl 4 mg 12/10/24 23:48 12/19/24 08:57 Ondansetron Inj 2 Mg/Ml Inj 2 Ml IVP 01/09/25 23:47 4 mg Q6H PRN Administration NAUSEA OR VOMITING Protocol Sennosides 1 tab 12/16/24 14:00 12/19/24 08:58 Senna Tablet PO 01/15/25 13:59 1 tab QDAY CLEMENTINE Administration Protocol Sodium Chloride 3 ml 12/11/24 14:16 12/13/24 08:41 Sodium Chloride Rt Katherine 0.9% 3 Ml Nebu INH 01/10/25 14:15 3 ml PRN PRN Administration SOLN Plan Kacy Cedillo is a 44-year-old female with past medical history of insulin-dependent type 2 diabetes, hypertension, GERD, history of valley fever untreated presented to the ED on 12/10 with episode of left flank pain, nausea/vomiting and chills will be admitted for hypertensive emergency requiring close monitoring along with acute renal failure requiring urology and nephrology consultation and IV antibiotics for cystitis #Acute kidney injury Likely multifactorial; suspecting pre-renal ischemic ATN vs obstructive etiology vs pre-renal from hypertensive emergency. Patient found to have pyelonephritis and seems to have vesicular ureteral reflux. CT showed numerous b/l nonobstructing renal caliculi, mod b/l hydronephrosis wo ureteral calculi, cystitis pattern Cr continues to stay elevated despite making good urine; patient clinically looks relatively well otherwise, Patient endorses having 3/4 UTI's per year. Patient received a kidney biopsy which showed ATN/AIN and underlying diabetes/hypertensive nephrosclerosis Ulytes wnl. Plan: -Bilateral percutaneous nephrostomy tube placement today. -No HD today, plan for outpatient HD, per urology. -Intermittent urethral catheterization (1-2x per day) if pt unable to make urine. -Urology: Cystoscopy showed bladder tumor; ordered MR Abd/Pelvis. Based on results, consult GI/OBGYN. -Needs outpatient tertiary care center evaluation for large bladder tumor. -Recommend follow up with primary care doctor. -Strict I/O's -CTM chem, cbc. -F/u DEMARCUS, ANCA, C3/C4, IgA -Avoid nephrotoxic agents -Renally dose medications -Replete electrolytes as needed and follow-up with morning labs #Acute urinary retention #Bilateral hydronephrosis #Cystitis #Complicated UTI, nephrolithiasis #Hematuria #Hypertensive emergency, improving #Hypertension #Insulin-dependent type 2 diabetes #GERD -Managed per primary team Thank you for allowing us to take part in the care of Ms. Cedillo Plan of care discussed with attending, Dr. Miriam Martinez MD PGY-1 Attending Provider Attestation/Addendum Patient seen and examined with resident physician Dr. Martinez. Note reviewed, agree with findings and recommendations. 12/19/2024 Patient with worsening azotemia.Biopsy showed ATN/AIN with underlying diabetes/hypertensive nephrosclerosis. Patient agreed for biopsy. Did receive 3 sessions of dialysis and is feeling better. PermCath placed by IR. Patient seen by urology for persistent hydronephrosis. Cystoscopy showed large bladder tumor blocking the ureteral orifices. Renal scan showed no function consistent with ATN. Patient will be going for bilateral percutaneous nephrostomy tube placement today. MRI abdomen pelvis did not show any malignancy. She will need outpatient tertiary care center evaluation for a large bladder tumor per urology. Dr. Vidal stated that he will do cystoscopy post nephrostomy tube placement and a biopsy is possible. Also recommended intermittent catheterization for possible neurogenic bladder. Plan of care discussed with patient and family at bedside on daily basis.
--- NOTE | 2024-12-19 16:00 | PC.NURSE ---
patient transfered back to room [facility]. patient alert and oriented. gcs 15. Wilma and I assessed sites and dressing. dressing is clean dry and intact. hand off report given to Wilma rasmussen. Wilma rasmussen drain nephrostomy tube bag. left bag 300ml of bloody urine drained and right 275ml of semibloody urine drained.
--- NOTE | 2024-12-19 16:51 | PC.NURSE ---
1645 emptied 400ml from right neprostomy tube, blood tinged and emptied 250 from left neprostomy tube.
[2024-12-19] MEDS: INSULIN GLARGINE (Lantus) 5 UNIT/0.05 ML (PER 5 UNITS) 18 UNIT SC (20:43)
[2024-12-19] MEDS: INSULIN LISPRO (AdmeLOG) 1 UNIT/0.01 ML UNIT SC (20:53)
--- NOTE | 2024-12-19 23:55 | PC.NURSE ---
Pt crying in pain. RN explained to patient that next dilaudid is due in about 10 minutes at 0008 hours. Pt stated she can not wait. RN contacted Dr. Patel and Dr. Patel will put a 1x order.
[2024-12-20] VITALS (32 sets, daily range): BP systolic 143–199; BP diastolic 75–97; PULSE 68–95; RESP 12–98; TEMP 36.1–36.9; O2SAT 92–99
[2024-12-20] MEDS: HYDROmorphone INJ 2 MG/ML VIAL 0.5 MG IVP ×3 (00:09→20:20)
[2024-12-20 05:30] LABS: Basophils # (Auto) 0.0 Thou/mm3 (0.0-0.2); Basophils % (Auto) 0 % (0-2.5); Eosinophils # (Auto) 0.1 Thou/mm3 (0.0-0.5); Eosinophils % (Auto) 1 % (0-10); Hematocrit 26.1 % (36.0-46.0); Immature Granulocytes Auto 0.03 Thou/mm3 (0.00-0.00); Lymphocytes # (Auto) 1.3 Thou/mm3 (1.0-4.8); Lymphocytes % (Auto) 16 % (10-50); Mean Corpuscular HGB Conc 31.8 g/dl (31.0-37.0); Mean Corpuscular Hemoglobin 25.2 pg (25.0-35.0); Mean Corpuscular Volume 79 fL (80-100); Monocytes # (Auto) 0.6 Thou/mm3 (0.0-0.8); Monocytes % (Auto) 8 % (0-12); Neutrophils # (Auto) 5.9 Thou/mm3 (1.8-7.7); Neutrophils % (Auto) 74 % (37-80); Nucleated Red Blood Cell # 0.00 Thou/mm3 (0.00-0.00); Nucleated Red Blood Cell % 0 /100 WBC (0); Platelet Count 339 Thou/mm3 (140-440); RDW Standard Deviation 43.1 fL (36.4-46.3); Red Blood Count 3.30 Miln/mm3 (4.00-5.20); White Blood Count 8.0 Thou/mm3 (3.6-11.0)
[2024-12-20 05:58] LABS: Anion Gap 11 (7-16); BUN/Creatinine Ratio 6 Ratio (12-20); Blood Urea Nitrogen 24 mg/dL (9-23); Calcium 8.7 mg/dL (8.3-10.6); Carbon Dioxide 28.7 mMol/L (20.0-31.0); Chloride 100 mMol/L (98-107); Creatinine (Component) 4.1 mg/dL (0.6-1.3); Estimated Creatinine Clearance 18.4 mL/min (>60); Glucose 166 mg/dL (74-106); Magnesium 2.0 mg/dL (1.6-2.6); Osmolality,Calculated 287 (275-295); Phosphorous 4.5 mg/dL (2.4-5.1); Potassium 3.6 mMol/L (3.4-5.1); Sodium 140 mMol/L (136-145); eGFR 13 See Note
[2024-12-20 06:04] LABS: Hemoglobin 8.3 g/dL (12.0-16.0)
--- NOTE | 2024-12-20 08:40 | PC.CC ---
Addendum entered by Marielena Gates RN 12/20/24 16:49: 1220 - received call from Martha at [facility], transfer is declined due to no oncology available until Sunday. We can call back on Sunday to re-submit transfer request. Addendum entered by Marielena Gates RN 12/20/24 12:10: 1210 - packet sent to [facility] and [facility] for consideration. Original Note: [id number] Kim regarding the transfer. Dr. Kim stated pt had MRI and nephorstomy tube placed yesterday, pt needs to be transferred for bladder mass and obstructive uropathy needs uro-onc.
--- NOTE | 2024-12-20 09:22 | ESPR_ITS ---
Documentation for date of: 12/20/24 Subjective Subjective Interval history: Ms. Cedillo is a 44-year-old female with past medical history of insulin- dependent type 2 diabetes, hypertension, GERD, history of valley fever untreated presented to the ED on 12/10 with episode of left flank pain, nausea/vomiting and chills. Patient states that the chills started roughly an hour ago but that she has been having progressively worsening left flank pain radiating to her back. Patient denies having any dysuria but does state that she has been having lilia hematuria for several days. Patient denies having any fevers but she does state that she has been having chills. Patient also complains of suprapubic pain and mentions that she feels pain near her ovaries. Patient has not seen PCP regarding the symptoms but she was seen several weeks ago for GERD like symptoms and was given medications. Patient otherwise denies having any concerning symptoms such as chest pain, dizziness, shortness of breath. In the ED, patient presented in hypertensive emergency with a blood pressure 187/83, other vitals wnl. Pertinent lab findings included WBC of 9, hemoglobin 7.9, potassium of 5.4, BUN of 31, creatinine 3.9, EGFR of 14, magnesium 1.6, troponin less than 0.02, BNP of 235, urinalysis shows hematuria and mild pyuria but no bacteria. Chest x-ray shows mild prominence of ventricles along with opacity in the right base concerning for pulmonary mass, EKG shows sinus rhythm without any concerning ST changes and CT abdomen pelvis shows a thick-walled cavitary lesion in the right middle lobe and a 22 mm pulmonary nodule in the anterior right lower lobe, numerous bilateral nonobstructing renal calculi, moderate bilateral hydronephrosis without calculi and cystitis. Patient will be admitted for hypertensive emergency requiring close monitoring along with acute renal failure requiring urology and nephrology consultation and IV antibiotics for cystitis Upon seeing the patient currently, she is on Mg Sulfate, Ceftriaxone, Carvedilol 6.25 mg, and maintenance IV fluids with a slightly improved blood pressure of 168/88 with the rest of vitals wnl. Patient states she is currently feeling much better now. States that she still has some nausea, L flank pain radiating to back and some dizziness when she stands up for too long. Patient states she has noticed blood in her urine today and ever since March. Patient endorses having bowel movements. Patient denies fever, headache, chest pain, shortness of breath, vomiting. 12/16/24: Patient was seen and examined at bedside with family members. Patient received dialysis catheter yesterday. Plan to get kidney biopsy today before starting dialysis. No new complaints. Denies chest pain, SOB, fever, flank pain or abdominal pain. Cr and BUN continue to stay elevated despite making good urine. 12/17/24 No acute events overnight. Patient seen and examined at bedside. Patient had renal biopsy and first HD done yesterday. Planning to receieve cystoscopy followed by urethral stents. No new complaints. Denies chest pain, SOB, fever, flank pain or abdominal pain. Mild improvement in Cr after first HD yesterday, will get HD again today. 12/18/24 No acute events overnight. Patient seen and examined at bedside getting dialysis. Patient is currently getting HD #3 today. Patient states she is having some non-radiating pain in the right abdomen. She also states she has not been able to make urine herself anymore. Denies chest pain, SOB, fever, flank pain. Cystoscopy showed bladder tumor; ordered MR Abd/Pelvis. Based on results, consult GI/OBGYN 12/19/24 Overnight, patient was reported by the night team to have had abdominal pain with some black stools, given Dilaudid. Vitals and labs reviewed. Patient seen and examined at bedside getting dialysis. Patient tolerated HD well yesterday. Patient states she is having an easier time making urine today. Patient currently denies chest pain, SOB, fever, abdominal pain, flank pain. Plan to get bilateral nephrostomy tubes placed today. 12/20/24 No acute events overnight. Vitals and labs reviewed. Patient seen and examined at bedside getting dialysis. Endorsed having nausea and vomited a little bit this morning during dialysis. Patient currently denies chest pain, SOB, fever, abdominal pain, flank pain. Bilateral nephrostomy tubes placed yesterday. Plan for Kidney biopsy Sunday 12/24. Exam Vital Signs Temp Pulse Resp BP Pulse Ox O2 Del Method O2 Flow Rate 97.2 F 87 22 H 196/93 H 95 Room Air 3 12/20/24 08:00 12/20/24 09:13 12/20/24 08:00 12/20/24 09:13 12/20/24 08:00 12/20/24 08:00 12/20/24 04:00 Narrative Exam GENERAL: a&o x3, no acute distress, resting in bed HEENT: NC/AT. Moist mucosa. PERRLA/EOMI. R IJ dialysis catheter CARDIO: Heart RRR, no murmurs appreciated PULM: Lungs CTA B/L, no resp distress ABD: soft, non-distended, non-tender SKIN: No edema bilateral lower extremities. No wounds/discoloration/rashes/amputations. +Pedal pulses present B/L. MSK: No joint swelling or pain/tenderness noted. Bilateral nephrostomy tubes EXT: upper and lower extremities atraumatic in appearance, able to move all 4 extremities. NEURO: no focal neurologic deficits noted Objective Labs 12/21/24 04:41 12/21/24 04:41 Labs: Laboratory Results - last 24 hr 12/20/24 04:37 WBC 8.0 RBC 3.30 L Hgb 8.3 L Hct 26.1 L MCV 79 L MCH 25.2 MCHC 31.8 RDW Std Deviation 43.1 Plt Count 339 Neut % (Auto) 74 Lymph % (Auto) 16 [place] % (Auto) 8 Eos % (Auto) 1 Baso % (Auto) 0 Neut # (Auto) 5.9 Lymph # (Auto) 1.3 [place] # (Auto) 0.6 Eos # (Auto) 0.1 Baso # (Auto) 0.0 Immature Gran # (Auto) 0.03 H Absolute Nucleated RBC 0.00 Immature Gran % 0 Nucleated RBC % 0 Sodium 140 Potassium 3.6 Chloride 100 Carbon Dioxide 28.7 Anion Gap 11 BUN 24 H Creatinine 4.1 H* Estim Creat Clear Calc 18.4 L eGFR 13 L* BUN/Creatinine Ratio 6 L Glucose 166 H D Calculated Osmolality 287 Calcium 8.7 Phosphorus 4.5 Magnesium 2.0 Quality Measures Quality Measures VTE prophylaxis Assessment & Plan Assessment Current Active Medications: Generic Name Dose Route Start Last Admin Trade Name Freq PRN Reason Stop Dose Admin Acetaminophen 650 mg 12/19/24 18:23 Acetaminophen 325 Mg Tablet PO 01/09/25 23:47 Q6H PRN PAIN 1-6 (mild-mod Buspirone HCl 10 mg 12/11/24 21:00 12/19/24 20:41 Buspirone Hcl 5 Mg Tablet PO 01/10/25 20:59 10 mg HS CLEMENTINE Administration Calcium Acetate 667 mg 12/13/24 12:00 12/20/24 07:58 Calcium Acetate 667 Mg Tablet PO 01/12/25 11:59 Not Given TIDWM CLEMENTINE Carvedilol 12.5 mg 12/14/24 08:00 12/19/24 19:03 Carvedilol 12.5 Mg Tablet PO 01/13/25 07:59 Not Given BIDWM CLEMENTINE Citric Acid/Sodium Citrate 30 ml 12/12/24 09:00 12/19/24 20:42 Citric Acid/Sodium Citr 15 Ml Udc (Bicitra) PO 01/11/25 08:59 30 ml BID CLEMENTINE Administration Dextrose 25 ml 12/10/24 23:51 Dextrose 50%-Water Inj 50 Ml Syringe IV 01/09/25 23:50 Q15MIN PRN BG 50-70 responsive npo pt Dextrose 50 ml 12/10/24 23:51 12/13/24 11:33 Dextrose 50%-Water Inj 50 Ml Syringe IV 01/09/25 23:50 50 ml Q15MIN PRN Administration BG <50 OR BG <70 & pt unresponsive Epoetin Oneil 10,000 unit 12/20/24 10:00 Epoetin Oneil-Epbx Inj 10,000 Unit/Ml Vial (Esrd) SC 12/20/24 10:01 X1 ONE Famotidine 20 mg 12/19/24 09:00 12/19/24 08:58 Famotidine 20 Mg Tablet PO 01/18/25 08:59 20 mg QDAY CLEMENTINE Administration Glucagon 1 mg 12/10/24 23:51 Glucagon Inj 1 Mg Vial IM Q15MIN PRN BG <70, and no IV access Heparin Sodium (Porcine) 3,800 unit 12/16/24 12:29 12/18/24 11:18 Heparin Sod Inj 1000 Unit/Ml Vial 10 Ml INDWELLCAT 12/30/24 12:28 3,800 unit X1 PRN Administration DIALYSIS Hydralazine HCl 10 mg 12/19/24 09:12 Hydralazine Inj 20 Mg/Ml Vial IVP 01/18/25 09:11 Q6HR PRN SBP > 180 Hydromorphone HCl 0.5 mg 12/19/24 18:22 12/20/24 07:27 Hydromorphone Inj 2 Mg/Ml Vial IVP 12/24/24 18:21 0.5 mg Q4HR PRN Administration PAIN SCALE 7-10 (Severe Hydroxyzine HCl 25 mg 12/13/24 21:00 12/19/24 20:41 Hydroxyzine Hcl 25 Mg Tablet PO 01/12/25 20:59 25 mg HS CLEMENTINE Administration Ceftriaxone Sodium/Dextrose 1 gm in 50 mls @ 100 mls/hr 12/17/24 09:00 12/19/24 08:57 Rocephin/D5w 1gm Iv Premix IV 12/24/24 08:59 100 mls/hr QDAY CLEMENTINE Administration Insulin Glargine 18 unit 12/15/24 21:00 12/19/24 20:43 Insulin Glargine (Lantus) 5 Unit/0.05 Ml (Per 5 Units) SC 01/14/25 20:59 18 unit HS CLEMENTINE Administration Insulin Human Lispro 0 unit 12/19/24 21:00 12/20/24 07:42 Insulin Lispro (Admelog) 1 Unit/0.01 Ml Unit SC 01/18/25 20:59 Not Given ACHS CLEMENTINE Protocol Nifedipine 60 mg 12/16/24 14:00 12/19/24 08:59 Nifedipine Xl 30 Mg Tabcr PO 01/15/25 13:59 60 mg QDAY CLEMENTINE Administration Ondansetron HCl 4 mg 12/10/24 23:48 12/19/24 23:34 Ondansetron Inj 2 Mg/Ml Inj 2 Ml IVP 01/09/25 23:47 4 mg Q6H PRN Administration NAUSEA OR VOMITING Protocol Sennosides 1 tab 12/16/24 14:00 12/19/24 08:58 Senna Tablet PO 01/15/25 13:59 1 tab QDAY CLEMENTINE Administration Protocol Sodium Chloride 3 ml 12/11/24 14:16 12/13/24 08:41 Sodium Chloride Rt Katherine 0.9% 3 Ml Nebu INH 01/10/25 14:15 3 ml PRN PRN Administration SOLN Plan Kacy Cedillo is a 44-year-old female with past medical history of insulin-dependent type 2 diabetes, hypertension, GERD, history of valley fever untreated presented to the ED on 12/10 with episode of left flank pain, nausea/vomiting and chills will be admitted for hypertensive emergency requiring close monitoring along with acute renal failure requiring urology and nephrology consultation and IV antibiotics for cystitis #Acute kidney injury Likely multifactorial; suspecting pre-renal ischemic ATN vs obstructive etiology vs pre-renal from hypertensive emergency. Patient found to have pyelonephritis and seems to have vesicular ureteral reflux. CT showed numerous b/l nonobstructing renal caliculi, mod b/l hydronephrosis wo ureteral calculi, cystitis pattern Cr continues to stay elevated despite making good urine; patient clinically looks relatively well otherwise, Patient endorses having 3/4 UTI's per year. Patient received a kidney biopsy which showed ATN/AIN and underlying diabetes/hypertensive nephrosclerosis Bilateral percutaneous nephrostomy tube placed Ulytes wnl. Plan: -HD today, plan for outpatient HD, per urology. -Plan for Bladder cystoscopy & biopsy Sunday. -Intermittent urethral catheterization (1-2x per day) if pt unable to make urine. -Urology: Cystoscopy showed bladder tumor; ordered MR Abd/Pelvis. Based on results, consult GI/OBGYN. -Needs outpatient tertiary care center evaluation for large bladder tumor. -Recommend follow up with primary care doctor. -Strict I/O's -CTM chem, cbc. -F/u DEMARCUS, ANCA, C3/C4, IgA -Avoid nephrotoxic agents -Renally dose medications -Replete electrolytes as needed and follow-up with morning labs #Acute urinary retention #Bilateral hydronephrosis #Cystitis #Complicated UTI, nephrolithiasis #Hematuria #Hypertensive emergency, improving #Hypertension #Insulin-dependent type 2 diabetes #GERD -Managed per primary team Thank you for allowing us to take part in the care of Ms. Cedillo Plan of care discussed with attending, Dr. Miriam Martinez MD PGY-1 Attending Provider Attestation/Addendum Patient seen and examined with resident physician Dr. Martinez. Note reviewed, agree with findings and recommendations. 12/20/2024 Patient with worsening azotemia.Biopsy showed ATN/AIN with underlying diabetes/hypertensive nephrosclerosis. Patient agreed for biopsy. Did receive 3 sessions of dialysis and is feeling better. PermCath placed by IR. Patient seen by urology for persistent hydronephrosis. Cystoscopy showed large bladder tumor blocking the ureteral orifices. Renal scan showed no function consistent with ATN. Patient had bilateral percutaneous nephrostomy tube placement today. MRI abdomen pelvis did not show any malignancy. She will need outpatient tertiary care center evaluation for a large bladder tumor per urology. Dr. Vidal stated that he will do cystoscopy and biopsy next Sunday. Pending biopsy might need transfer to tertiary care center.Also recommended intermittent catheterization for possible neurogenic bladder. Plan of care discussed with patient and family at bedside on daily basis. Patient currently seen on dialysis. Tolerating dialysis without any problems. Hemodialysis for 3 hours, 2K, ultrafiltration 1 L, Epogen 6000, no heparin ordered. Plan of care discussed with the dialysis nurse. Please see dialysis flowsheet for further details.
--- NOTE | 2024-12-20 09:33 | ESPR_ITS ---
Documentation for date of: 12/20/24 Subjective Subjective Interval history: No Overnight events. Labs reviewed and patient examined at the bedside. Patient received hemodialysis this morning. Received nephropstomy tube yesterday. Planned for cystoscopy and bioply of bladder mass on Sunday12/24/2024. Patient produced 4.2L of urine overnight. Current Cr level is 4.1. Complains of pain at the back, right leg. Denies chest pain, SOB, abdominal pain, fevers or chills. Exam Vital Signs Temp Pulse Resp BP Pulse Ox O2 Del Method O2 Flow Rate 97.2 F 87 22 H 196/93 H 95 Room Air 3 12/20/24 08:00 12/20/24 09:13 12/20/24 08:00 12/20/24 09:13 12/20/24 08:00 12/20/24 08:00 12/20/24 04:00 Narrative Exam General: No acute distress, well nourished Eye: PERRL, EOMI, normal conjunctiva, no scleral icterus HENT: Normocephalic, atraumatic, hearing intact to conversation at normal volume, moist oral mucosa Neck: Supple, non-tender, no JVD, no lymphadenopathy Lungs: Non-labored respirations, symmetric chest rise, Clear to auscultate bilaterally Heart: Peripheral pulses intact bilaterally, Regular rate and Rhythm. Abdomen: Soft, non-tender, non-distended Musculoskeletal: Normal range of motion and strength Skin: Skin is warm, dry, no rashes or lesions. Psychiatric: Cooperative, appropriate mood and affect Neuro: Cranial nerves II-XII grossly intact. Strength 5/5 throughout. Sensations intact to light touch. Objective Labs 12/21/24 04:41 12/21/24 04:41 Labs: Laboratory Results - last 24 hr 12/20/24 04:37 WBC 8.0 RBC 3.30 L Hgb 8.3 L Hct 26.1 L MCV 79 L MCH 25.2 MCHC 31.8 RDW Std Deviation 43.1 Plt Count 339 Neut % (Auto) 74 Lymph % (Auto) 16 [place] % (Auto) 8 Eos % (Auto) 1 Baso % (Auto) 0 Neut # (Auto) 5.9 Lymph # (Auto) 1.3 [place] # (Auto) 0.6 Eos # (Auto) 0.1 Baso # (Auto) 0.0 Immature Gran # (Auto) 0.03 H Absolute Nucleated RBC 0.00 Immature Gran % 0 Nucleated RBC % 0 Sodium 140 Potassium 3.6 Chloride 100 Carbon Dioxide 28.7 Anion Gap 11 BUN 24 H Creatinine 4.1 H* Estim Creat Clear Calc 18.4 L eGFR 13 L* BUN/Creatinine Ratio 6 L Glucose 166 H D Calculated Osmolality 287 Calcium 8.7 Phosphorus 4.5 Magnesium 2.0 Quality Measures Quality Measures VTE prophylaxis Assessment & Plan Assessment Current Active Medications: Generic Name Dose Route Start Last Admin Trade Name Freq PRN Reason Stop Dose Admin Acetaminophen 650 mg 12/19/24 18:23 Acetaminophen 325 Mg Tablet PO 01/09/25 23:47 Q6H PRN PAIN 1-6 (mild-mod Buspirone HCl 10 mg 12/11/24 21:00 12/19/24 20:41 Buspirone Hcl 5 Mg Tablet PO 01/10/25 20:59 10 mg HS CLEMENTINE Administration Calcium Acetate 667 mg 12/13/24 12:00 12/20/24 07:58 Calcium Acetate 667 Mg Tablet PO 01/12/25 11:59 Not Given TIDWM CLEMENTINE Carvedilol 12.5 mg 12/14/24 08:00 12/19/24 19:03 Carvedilol 12.5 Mg Tablet PO 01/13/25 07:59 Not Given BIDWM CLEMENTINE Citric Acid/Sodium Citrate 30 ml 12/12/24 09:00 12/19/24 20:42 Citric Acid/Sodium Citr 15 Ml Udc (Bicitra) PO 01/11/25 08:59 30 ml BID CLEMENTINE Administration Dextrose 25 ml 12/10/24 23:51 Dextrose 50%-Water Inj 50 Ml Syringe IV 01/09/25 23:50 Q15MIN PRN BG 50-70 responsive npo pt Dextrose 50 ml 12/10/24 23:51 12/13/24 11:33 Dextrose 50%-Water Inj 50 Ml Syringe IV 01/09/25 23:50 50 ml Q15MIN PRN Administration BG <50 OR BG <70 & pt unresponsive Epoetin Oneil 10,000 unit 12/20/24 10:00 Epoetin Oneil-Epbx Inj 10,000 Unit/Ml Vial (Esrd) SC 12/20/24 10:01 X1 ONE Famotidine 20 mg 12/19/24 09:00 12/19/24 08:58 Famotidine 20 Mg Tablet PO 01/18/25 08:59 20 mg QDAY CLEMENTINE Administration Glucagon 1 mg 12/10/24 23:51 Glucagon Inj 1 Mg Vial IM Q15MIN PRN BG <70, and no IV access Heparin Sodium (Porcine) 3,800 unit 12/16/24 12:29 12/18/24 11:18 Heparin Sod Inj 1000 Unit/Ml Vial 10 Ml INDWELLCAT 12/30/24 12:28 3,800 unit X1 PRN Administration DIALYSIS Hydralazine HCl 10 mg 12/19/24 09:12 Hydralazine Inj 20 Mg/Ml Vial IVP 01/18/25 09:11 Q6HR PRN SBP > 180 Hydromorphone HCl 0.5 mg 12/19/24 18:22 12/20/24 07:27 Hydromorphone Inj 2 Mg/Ml Vial IVP 12/24/24 18:21 0.5 mg Q4HR PRN Administration PAIN SCALE 7-10 (Severe Hydroxyzine HCl 25 mg 12/13/24 21:00 12/19/24 20:41 Hydroxyzine Hcl 25 Mg Tablet PO 01/12/25 20:59 25 mg HS CLEMENTINE Administration Ceftriaxone Sodium/Dextrose 1 gm in 50 mls @ 100 mls/hr 12/17/24 09:00 12/19/24 08:57 Rocephin/D5w 1gm Iv Premix IV 12/24/24 08:59 100 mls/hr QDAY CLEMENTINE Administration Insulin Glargine 18 unit 12/15/24 21:00 12/19/24 20:43 Insulin Glargine (Lantus) 5 Unit/0.05 Ml (Per 5 Units) SC 01/14/25 20:59 18 unit HS CLEMENTINE Administration Insulin Human Lispro 0 unit 12/19/24 21:00 12/20/24 07:42 Insulin Lispro (Admelog) 1 Unit/0.01 Ml Unit SC 01/18/25 20:59 Not Given ACHS [facility] Protocol Nifedipine 60 mg 12/16/24 14:00 12/19/24 08:59 Nifedipine Xl 30 Mg Tabcr PO 01/15/25 13:59 60 mg QDAY CLEMENTINE Administration Ondansetron HCl 4 mg 12/10/24 23:48 12/19/24 23:34 Ondansetron Inj 2 Mg/Ml Inj 2 Ml IVP 01/09/25 23:47 4 mg Q6H PRN Administration NAUSEA OR VOMITING Protocol Sennosides 1 tab 12/16/24 14:00 12/19/24 08:58 Senna Tablet PO 01/15/25 13:59 1 tab QDAY CLEMENTINE Administration Protocol Sodium Chloride 3 ml 12/11/24 14:16 12/13/24 08:41 Sodium Chloride Rt [place] 0.9% 3 Ml Nebu INH 01/10/25 14:15 3 ml PRN PRN Administration SOLN Plan 44-year-old female with past medical history of insulin-dependent type 2 diabetes, hypertension, GERD, history of valley fever presented to the ED on 12/10 with episode of left flank pain, nausea/vomiting and chills will be admitted for hypertensive emergency requiring close monitoring along with acute renal failure requiring urology and nephrology consultation and IV antibiotics for cystitis #Bladder mass -Cystoscopic examination by Urologist Dr. Friedman: found Bilateral hydronephrosis, large bladder mass occupying posterior bladder wall occupying the ureteral orifices. -After cystoscopy, patient noted that she had history of cervical cancer 3 years ago. -MRI abd/pelvis: Mild to moderate bilateral hydronephorsis, and dilated ureters extending to the bladder. -Per nephrology, the bladder mass is confined to the bladder. -Patient received bilatereal percutaneous nephrostomy tube placement on 12/19/2024 Plan: -PT and PTT ordered. -Planned for cystoscopy for biopsy of bladder mass on sunday12/24/2024, unclear whether she will receive bilateral urethral stents at this moment. #Acute renal failure 2/2 Urinary Retention 2/2 Obstructive Uropathy -12/15: Cr:5.1, BUN:47 -Repeat UA 12/14 Urine protein +1 Urine blood +1 RBC 5 -Currently difficult to do kidney biopsy due to hydronephrosis. -Patient produced 4.2 L of urine today. Current Cr: 4.1 Plan: -Nephrology consulted, Dr. Pierre, ordered nuclear renal scan, IgA levels for IgA nephropathy, Hepatitis A/B titers, ANCA titers, pending results, appreciate recommendations -Avoid nephrotoxic agents -Renally dose medications -Replete electrolytes as needed and follow-up with morning labs #Acute urinary retention #Bilateral hydronephrosis #Cystitis #Complicated UTI, nephrolithiasis #Hematuria -On exam, patient no longer has left flank flank with CVA tenderness -CT abdomen pelvis shows a thick-walled cavitary lesion in the right middle lobe and a 22 mm pulmonary nodule in the anterior right lower lobe, numerous bilateral nonobstructing renal calculi, moderate bilateral hydronephrosis without calculi and cystitis -Based on CTAP presentation, urinary retention due to intake of meclizine was suspected as patient started to take it 1wk everyday prior to coming to the hospital. -Renal Ultrasound (12/11/2024): Moderate bilateral hydronephrosis -Renal Ultrasound (12/12/2024): Moderate bilateral hydronephrosis. Plan: -Advised to stop taking meclizine. -Finished receiving IV ceftriaxone 2g IV qd (12/11-12/16). Now changed to IV ceftriaxone 1g IV qd (12/17-) #Hypertensive emergency, improving #Hypertension Patient has significant history of hypertension on home antihypertensives Presenting to the ED with acute renal failure and elevated systolic pressure in the 200s Plan: - continue Nifedipine 30mg PO qd - Coreg 6.25mg PO bid uptitrated to 12.5 PO BID today - discontinued Hydralazine 50mg PO TID 12/13/24 #Insulin-dependent type 2 diabetes Pertinent labs: 06/2024 A1C 11.1 12/11/24 A1C 8.0 Patient apparently takes 30 units of long-acting insulin twice a day Plan: Insulin glargine 15 units at bedtime Sliding scale #History of Valley Fever -CTAP(03/21/2024):30 mm thick-walled cavitary lesion partially visualized right midlung,, 22 mm pulmonary nodule anterior right lower lobe -CXR(07/16/2024): Poorly defined nodular density 18 mm in the right lower lobe, -CXR (12/10/2024):Opacity right base which may represent a pulmonary mass, 19 mm -CTAP(12/10/2024): thick walled 25 mm cavitary lesion in the right middle lobe and 22mm pulmonary nodule anterior right lower lobe Plan: -Fairly stable right lung pulmonary nodule. -Will continue to monitor. #GERD Chronic medical problems: All pertinent to the following presentation Plan: -Continue Pantoprazole 40 mg PO QD Health Maintenance: Lines: PIV Diet: Renal and carb consistent low Bowel: Senna GI prophylaxis: Pantoprazole 40 mg PO QD DVT prophylaxis: SCD Dispo: Nephrology neurology recommendations, IV antibiotics for cystitis Code: Full Assessment and plan discussed with my attending physician Dr. Robert Silva (PGY-1)- Internal medicine resident Attending Provider Attestation/Addendum I have examined the patient, reviewed labs and imaging findings, discussed the case with the resident(s), and reviewed entered orders. I agree with the plan of care as outlined in this note, with these additional summaries/recommendations: Patient seen at bedside. No acute overnight events. Patient went for bilateral nephrostomy tube placement yesterday and tolerated procedure well. She has had approximately 4 L of output in nephrostomy tubes in the last 24 hours. She does endorse some pain and is significantly hypertensive this morning. Increased pain regimen and we will continue to adjust antihypertensive regimen as needed. Patient underwent cystoscopy for episode of gross hematuria and bilateral hydronephrosis. Cystoscopy revealed a large bladder mass occupying posterior bladder wall which is blocking ureteral orifices. Status post nephrostomy tubes. Interestingly MRI of abdomen and pelvis did not reveal any bladder mass although this was obtained without contrast given patient's renal function. Urology following closely with plans for biopsy of bladder mass and possibly bilateral ureteral stent placement early this week. Patient unfortunately developed severe SAPPHIRE leading to dialysis. In-house nephrology following. Continue to avoid nephrotoxic agents and renally dose medications. Status post renal biopsy. Continue basal and bolus insulin for diabetes mellitus type 2. Continue home antihypertensives. Patient updated on the plan and is in agreement. All questions answered to satisfaction. Please see residents note for additional details and management. Dr. Robert MD
[2024-12-20] MEDS: EPOETIN ALFA-EPBX INJ 10,000 UNIT/ML VIAL (ESRD) 10000 UNIT SC (11:19)
[2024-12-20] MEDS: CALCIUM ACETATE 667 MG TABLET PO ×2 (12:14→17:39)
[2024-12-20] MEDS: ACETAMINOPHEN 325 MG TABLET 650 MG PO (12:14)
[2024-12-20] MEDS: HEPARIN SOD INJ 1000 UNIT/ML VIAL 10 ML 3800 UNIT INDWELLCAT (12:20)
[2024-12-20] MEDS: INSULIN LISPRO (AdmeLOG) 1 UNIT/0.01 ML UNIT SC ×2 (17:38→20:22)
[2024-12-20] MEDS: INSULIN GLARGINE (Lantus) 5 UNIT/0.05 ML (PER 5 UNITS) 18 UNIT SC (20:21)
[2024-12-20] MEDS: CITRIC ACID/SODIUM CITR 15 ML UDC (BICITRA) 30 ML PO (20:23)
[2024-12-21] VITALS (16 sets, daily range): BP systolic 96–155; BP diastolic 57–87; PULSE 73–99; RESP 13–17; TEMP 36.2–36.9; O2SAT 94–96
[2024-12-21] MEDS: HYDROmorphone INJ 2 MG/ML VIAL 0.5 MG IVP ×4 (01:24→21:43)
[2024-12-21 05:55] LABS: Basophils # (Auto) 0.1 Thou/mm3 (0.0-0.2); Basophils % (Auto) 1 % (0-2.5); Eosinophils # (Auto) 0.2 Thou/mm3 (0.0-0.5); Eosinophils % (Auto) 2 % (0-10); Hematocrit 26.6 % (36.0-46.0); Immature Granulocytes Auto 0.05 Thou/mm3 (0.00-0.00); Lymphocytes # (Auto) 1.9 Thou/mm3 (1.0-4.8); Lymphocytes % (Auto) 20 % (10-50); Mean Corpuscular HGB Conc 31.2 g/dl (31.0-37.0); Mean Corpuscular Hemoglobin 24.9 pg (25.0-35.0); Mean Corpuscular Volume 80 fL (80-100); Monocytes # (Auto) 0.9 Thou/mm3 (0.0-0.8); Monocytes % (Auto) 10 % (0-12); Neutrophils # (Auto) 6.1 Thou/mm3 (1.8-7.7); Neutrophils % (Auto) 67 % (37-80); Nucleated Red Blood Cell # 0.00 Thou/mm3 (0.00-0.00); Nucleated Red Blood Cell % 0 /100 WBC (0); Platelet Count 363 Thou/mm3 (140-440); RDW Standard Deviation 42.5 fL (36.4-46.3); Red Blood Count 3.33 Miln/mm3 (4.00-5.20); White Blood Count 9.2 Thou/mm3 (3.6-11.0)
[2024-12-21 05:57] LABS: Hemoglobin 8.3 g/dL (12.0-16.0)
[2024-12-21 06:34] LABS: Anion Gap 10 (7-16); BUN/Creatinine Ratio 6 Ratio (12-20); Blood Urea Nitrogen 18 mg/dL (9-23); Calcium 9.9 mg/dL (8.3-10.6); Carbon Dioxide 30.4 mMol/L (20.0-31.0); Chloride 98 mMol/L (98-107); Creatinine (Component) 3.1 mg/dL (0.6-1.3); Estimated Creatinine Clearance 23.5 mL/min (>60); Glucose 119 mg/dL (74-106); Magnesium 1.7 mg/dL (1.6-2.6); Osmolality,Calculated 278 (275-295); Phosphorous 4.4 mg/dL (2.4-5.1); Potassium 3.2 mMol/L (3.4-5.1); Sodium 138 mMol/L (136-145); eGFR 19 See Note
[2024-12-21] MEDS: POTASSIUM CHLORIDE 10% 20 MEQ/15 ML UDC 40 MEQ PO (07:37)
[2024-12-21] MEDS: CALCIUM ACETATE 667 MG TABLET PO ×3 (08:04→17:25)
[2024-12-21] MEDS: FAMOTIDINE 20 MG TABLET PO (08:04)
[2024-12-21] MEDS: FERROUS SULF 325 MG TABLET PO (08:05)
[2024-12-21] MEDS: NIFEdipine XL 30 MG TABCR 60 MG PO (08:05)
[2024-12-21] MEDS: CITRIC ACID/SODIUM CITR 15 ML UDC (BICITRA) 30 ML PO ×2 (08:07→20:52)
[2024-12-21] MEDS: cefTRIAXone/D5w 1gm IV premix 1 GM/50 ML BAG IV (08:09)
[2024-12-21] MEDS: ACETAMINOPHEN 325 MG TABLET 650 MG PO ×2 (08:09→16:39)
[2024-12-21] MEDS: Magnesium Sulfate 2 GM Ivpb 2 GM/50 ML BAG IV (08:56)
[2024-12-21] MEDS: INSULIN LISPRO (AdmeLOG) 1 UNIT/0.01 ML UNIT SC ×3 (12:24→20:56)
--- NOTE | 2024-12-21 13:20 | ESPR_ITS ---
Documentation for date of: 12/21/24 Subjective Subjective Interval history: Ms. Cedillo is a 44-year-old female with past medical history of insulin- dependent type 2 diabetes, hypertension, GERD, history of valley fever untreated presented to the ED on 12/10 with episode of left flank pain, nausea/vomiting and chills. Patient states that the chills started roughly an hour ago but that she has been having progressively worsening left flank pain radiating to her back. Patient denies having any dysuria but does state that she has been having lilia hematuria for several days. Patient denies having any fevers but she does state that she has been having chills. Patient also complains of suprapubic pain and mentions that she feels pain near her ovaries. Patient has not seen PCP regarding the symptoms but she was seen several weeks ago for GERD like symptoms and was given medications. Patient otherwise denies having any concerning symptoms such as chest pain, dizziness, shortness of breath. In the ED, patient presented in hypertensive emergency with a blood pressure 187/83, other vitals wnl. Pertinent lab findings included WBC of 9, hemoglobin 7.9, potassium of 5.4, BUN of 31, creatinine 3.9, EGFR of 14, magnesium 1.6, troponin less than 0.02, BNP of 235, urinalysis shows hematuria and mild pyuria but no bacteria. Chest x-ray shows mild prominence of ventricles along with opacity in the right base concerning for pulmonary mass, EKG shows sinus rhythm without any concerning ST changes and CT abdomen pelvis shows a thick-walled cavitary lesion in the right middle lobe and a 22 mm pulmonary nodule in the anterior right lower lobe, numerous bilateral nonobstructing renal calculi, moderate bilateral hydronephrosis without calculi and cystitis. Patient will be admitted for hypertensive emergency requiring close monitoring along with acute renal failure requiring urology and nephrology consultation and IV antibiotics for cystitis Upon seeing the patient currently, she is on Mg Sulfate, Ceftriaxone, Carvedilol 6.25 mg, and maintenance IV fluids with a slightly improved blood pressure of 168/88 with the rest of vitals wnl. Patient states she is currently feeling much better now. States that she still has some nausea, L flank pain radiating to back and some dizziness when she stands up for too long. Patient states she has noticed blood in her urine today and ever since March. Patient endorses having bowel movements. Patient denies fever, headache, chest pain, shortness of breath, vomiting. 12/16/24: Patient was seen and examined at bedside with family members. Patient received dialysis catheter yesterday. Plan to get kidney biopsy today before starting dialysis. No new complaints. Denies chest pain, SOB, fever, flank pain or abdominal pain. Cr and BUN continue to stay elevated despite making good urine. 12/17/24 No acute events overnight. Patient seen and examined at bedside. Patient had renal biopsy and first HD done yesterday. Planning to receieve cystoscopy followed by urethral stents. No new complaints. Denies chest pain, SOB, fever, flank pain or abdominal pain. Mild improvement in Cr after first HD yesterday, will get HD again today. 12/18/24 No acute events overnight. Patient seen and examined at bedside getting dialysis. Patient is currently getting HD #3 today. Patient states she is having some non-radiating pain in the right abdomen. She also states she has not been able to make urine herself anymore. Denies chest pain, SOB, fever, flank pain. Cystoscopy showed bladder tumor; ordered MR Abd/Pelvis. Based on results, consult GI/OBGYN 12/19/24 Overnight, patient was reported by the night team to have had abdominal pain with some black stools, given Dilaudid. Vitals and labs reviewed. Patient seen and examined at bedside getting dialysis. Patient tolerated HD well yesterday. Patient states she is having an easier time making urine today. Patient currently denies chest pain, SOB, fever, abdominal pain, flank pain. Plan to get bilateral nephrostomy tubes placed today. 12/20/24 No acute events overnight. Vitals and labs reviewed. Patient seen and examined at bedside getting dialysis. Endorsed having nausea and vomited a little bit this morning during dialysis. Patient currently denies chest pain, SOB, fever, abdominal pain, flank pain. Bilateral nephrostomy tubes placed yesterday. Plan for Kidney biopsy Sunday 12/24. 12/21/24 Patient seen and examined at bedside with . No new complaints and is feeling well today. Denies N/V, chest pain, SOB or fever. K 3.2, Cr 3.1 and BUN 18. Autoimmune panel negative. Reassess labs tomorrow for possible HD. Exam Vital Signs Temp Pulse Resp BP Pulse Ox O2 Del Method O2 Flow Rate 97.4 F 75 13 145/69 H 94 L Room Air 3 12/21/24 12:00 12/21/24 12:00 12/21/24 12:00 12/21/24 12:00 12/21/24 12:00 12/21/24 12:00 12/20/24 04:00 Narrative Exam GENERAL: a&o x3, no acute distress, sitting up eating in bed HEENT: NC/AT. Moist mucosa. PERRLA/EOMI. R IJ dialysis catheter CARDIO: Heart RRR, no murmurs appreciated PULM: Lungs CTA B/L, no resp distress ABD: soft, non-distended, non-tender SKIN: No edema bilateral lower extremities. No wounds/discoloration/rashes/amputations. +Pedal pulses present B/L. MSK: No joint swelling or pain/tenderness noted. Bilateral nephrostomy tubes draining. EXT: upper and lower extremities atraumatic in appearance, able to move all 4 extremities. NEURO: no focal neurologic deficits noted Objective Labs 12/21/24 04:41 12/21/24 04:41 Labs: Laboratory Results - last 24 hr 12/21/24 04:41 WBC 9.2 RBC 3.33 L Hgb 8.3 L Hct 26.6 L MCV 80 MCH 24.9 L MCHC 31.2 RDW Std Deviation 42.5 Plt Count 363 Neut % (Auto) 67 Lymph % (Auto) 20 [place] % (Auto) 10 Eos % (Auto) 2 Baso % (Auto) 1 Neut # (Auto) 6.1 Lymph # (Auto) 1.9 [place] # (Auto) 0.9 H Eos # (Auto) 0.2 Baso # (Auto) 0.1 Immature Gran # (Auto) 0.05 H Absolute Nucleated RBC 0.00 Immature Gran % 1 H Nucleated RBC % 0 Sodium 138 Potassium 3.2 L Chloride 98 Carbon Dioxide 30.4 Anion Gap 10 BUN 18 Creatinine 3.1 H D Estim Creat Clear Calc 23.5 L eGFR 19 L BUN/Creatinine Ratio 6 L Glucose 119 H Calculated Osmolality 278 Calcium 9.9 Phosphorus 4.4 Magnesium 1.7 Quality Measures Quality Measures VTE prophylaxis Assessment & Plan Assessment Current Active Medications: Generic Name Dose Route Start Last Admin Trade Name Freq PRN Reason Stop Dose Admin Acetaminophen 650 mg 12/19/24 18:23 12/21/24 08:09 Acetaminophen 325 Mg Tablet PO 01/09/25 23:47 650 mg Q6H PRN Administration PAIN 1-6 (mild-mod Buspirone HCl 10 mg 12/11/24 21:00 12/20/24 20:23 Buspirone Hcl 5 Mg Tablet PO 01/10/25 20:59 10 mg HS CLEMENTINE Administration Calcium Acetate 667 mg 12/13/24 12:00 12/21/24 12:20 Calcium Acetate 667 Mg Tablet PO 01/12/25 11:59 667 mg TIDWM CLEMENTINE Administration Carvedilol 25 mg 12/20/24 17:30 12/21/24 08:04 Carvedilol 12.5 Mg Tablet PO 01/19/25 17:29 25 mg BIDWM CLEMENTINE Administration Citric Acid/Sodium Citrate 30 ml 12/12/24 09:00 12/21/24 08:07 Citric Acid/Sodium Citr 15 Ml Udc (Bicitra) PO 01/11/25 08:59 30 ml BID CLEMENTINE Administration Dextrose 25 ml 12/10/24 23:51 Dextrose 50%-Water Inj 50 Ml Syringe IV 01/09/25 23:50 Q15MIN PRN BG 50-70 responsive npo pt Dextrose 50 ml 12/10/24 23:51 12/13/24 11:33 Dextrose 50%-Water Inj 50 Ml Syringe IV 01/09/25 23:50 50 ml Q15MIN PRN Administration BG <50 OR BG <70 & pt unresponsive Famotidine 20 mg 12/19/24 09:00 12/21/24 08:04 Famotidine 20 Mg Tablet PO 01/18/25 08:59 20 mg QDAY CLEMENTINE Administration Ferrous Sulfate 325 mg 12/21/24 09:00 12/21/24 08:05 Ferrous Sulf 325 Mg Tablet PO 01/20/25 08:59 325 mg QOD CLEMENTINE Administration Glucagon 1 mg 12/10/24 23:51 Glucagon Inj 1 Mg Vial IM Q15MIN PRN BG <70, and no IV access Heparin Sodium (Porcine) 3,800 unit 12/16/24 12:29 12/20/24 12:20 Heparin Sod Inj 1000 Unit/Ml Vial 10 Ml INDWELLCAT 12/30/24 12:28 3,800 unit X1 PRN Administration DIALYSIS Hydralazine HCl 10 mg 12/19/24 09:12 Hydralazine Inj 20 Mg/Ml Vial IVP 01/18/25 09:11 Q6HR PRN SBP > 180 Hydralazine HCl 50 mg 12/20/24 14:00 12/21/24 05:15 Hydralazine Hcl 25 Mg Tablet PO 01/19/25 13:59 50 mg TID CLEMENTINE Administration Hydromorphone HCl 0.5 mg 12/19/24 18:22 12/21/24 06:18 Hydromorphone Inj 2 Mg/Ml Vial IVP 12/24/24 18:21 0.5 mg Q4HR PRN Administration PAIN SCALE 7-10 (Severe Hydroxyzine HCl 25 mg 12/13/24 21:00 12/20/24 20:23 Hydroxyzine Hcl 25 Mg Tablet PO 01/12/25 20:59 25 mg HS CLEMENTINE Administration Ceftriaxone Sodium/Dextrose 1 gm in 50 mls @ 100 mls/hr 12/17/24 09:00 12/21/24 08:09 Rocephin/D5w 1gm Iv Premix IV 12/24/24 08:59 100 mls/hr QDAY CLEMENTINE Administration Insulin Glargine 18 unit 12/15/24 21:00 12/20/24 20:21 Insulin Glargine (Lantus) 5 Unit/0.05 Ml (Per 5 Units) SC 01/14/25 20:59 18 unit HS CLEMENTINE Administration Insulin Human Lispro 0 unit 12/19/24 21:00 12/21/24 12:24 Insulin Lispro (Admelog) 1 Unit/0.01 Ml Unit SC 01/18/25 20:59 1 unit ACHS CLEMENTINE Administration Protocol Nifedipine 60 mg 12/16/24 14:00 12/21/24 08:05 Nifedipine Xl 30 Mg Tabcr PO 01/15/25 13:59 60 mg QDAY CLEMENTINE Administration Ondansetron HCl 4 mg 12/10/24 23:48 12/19/24 23:34 Ondansetron Inj 2 Mg/Ml Inj 2 Ml IVP 01/09/25 23:47 4 mg Q6H PRN Administration NAUSEA OR VOMITING Protocol Sennosides 1 tab 12/16/24 14:00 12/21/24 08:05 Senna Tablet PO 01/15/25 13:59 1 tab QDAY CLEMENTINE Administration Protocol Sodium Chloride 3 ml 12/11/24 14:16 12/13/24 08:41 Sodium Chloride Rt Katherine 0.9% 3 Ml Nebu INH 01/10/25 14:15 3 ml PRN PRN Administration SOLN Plan Kacy Cedillo is a 44-year-old female with past medical history of insulin-dependent type 2 diabetes, hypertension, GERD, history of valley fever untreated presented to the ED on 12/10 with episode of left flank pain, nausea/vomiting and chills will be admitted for hypertensive emergency requiring close monitoring along with acute renal failure requiring urology and nephrology consultation and IV antibiotics for cystitis #Acute kidney injury Likely multifactorial; suspecting pre-renal ischemic ATN vs obstructive etiology vs pre-renal from hypertensive emergency. Patient found to have pyelonephritis and seems to have vesicular ureteral reflux. CT showed numerous b/l nonobstructing renal caliculi, mod b/l hydronephrosis wo ureteral calculi, cystitis pattern Cr continues to stay elevated despite making good urine; patient clinically looks relatively well otherwise, Patient endorses having 3/4 UTI's per year. Patient received a kidney biopsy which showed ATN/AIN and underlying diabetes/hypertensive nephrosclerosis Bilateral percutaneous nephrostomy tube placed Ulytes wnl. DEMARCUS, ANCA, C3/C4, IgA negative, no indication of autoimmune disease. Plan: -No HD today, reassess for potential HD tomorrow, plan for outpatient HD, per urology. -Plan for Bladder cystoscopy & biopsy Sunday. -Intermittent urethral catheterization (1-2x per day) if pt unable to make urine. -Urology: Cystoscopy showed bladder tumor; ordered MR Abd/Pelvis. Based on results, consult GI/OBGYN. -Needs outpatient tertiary care center evaluation for large bladder tumor. -Strict I/O's -Avoid nephrotoxic agents -Renally dose medications -Replete electrolytes as needed and follow-up with morning labs #Acute urinary retention #Bilateral hydronephrosis #Cystitis #Complicated UTI, nephrolithiasis #Hematuria #Hypertensive emergency, improving #Hypertension #Insulin-dependent type 2 diabetes #GERD -Managed per primary team Thank you for allowing us to take part in the care of Ms. Cedlilo Plan of care discussed with attending, Dr. Miriam Orosco, DO Internal Medicine PGY-1 Attending Provider Attestation/Addendum Patient seen and examined with resident physician Dr. Martinez. Note reviewed, agree with findings and recommendations. 12/20/2024 Patient with worsening azotemia.Biopsy showed ATN/AIN with underlying diabetes/hypertensive nephrosclerosis. Patient agreed for biopsy. Did receive 3 sessions of dialysis and is feeling better. PermCath placed by IR. Patient seen by urology for persistent hydronephrosis. Cystoscopy showed large bladder tumor blocking the ureteral orifices. Renal scan showed no function consistent with ATN. Patient had bilateral percutaneous nephrostomy tube placement today. MRI abdomen pelvis did not show any malignancy. She will need outpatient tertiary care center evaluation for a large bladder tumor per urology. Dr. Vidal stated that he will do cystoscopy and biopsy next Sunday. Pending biopsy might need transfer to tertiary care center.Also recommended intermittent catheterization for possible neurogenic bladder. Plan of care discussed with patient and family at bedside on daily basis. 12/21/2024 patient resting comfortably. With bilateral nephrostomy tubes she has good urinary output. Hopefully will be renal recovery. Dr. Vidal planning to do cystoscopy with biopsy on Sunday. Spoke to primary team.
--- NOTE | 2024-12-21 14:41 | PD.RESPRO ---
Documentation for date of: 12/21/24 Subjective Subjective Interval history: NO overnight events. Patient examined at bedside. No dialysis scheduled today, continue renal function improvement. Overnight R. nephrostomy tube 200 and L. nephrostomy tube 250 cc and continues to void. Pending repeat cystoscopy and biopsy with Dr. Friedman. No dialysis today. patient denied any compalins. Exam Vital Signs Temp Pulse Resp BP Pulse Ox O2 Del Method O2 Flow Rate 97.4 F 75 13 146/69 H 94 L Room Air 3 12/21/24 12:00 12/21/24 13:58 12/21/24 12:00 12/21/24 13:58 12/21/24 12:00 12/21/24 12:00 12/20/24 04:00 Narrative Exam General Appearance: Alert & Oriented X3, well-nourished female who is lying in bed in [no acute distress] HEENT: Skull symmetrical and atraumatic. Conjunctivae pin and moist. Pupils equal, round, reactive to light and accommodation (PERRL). External ear without lesion or discharge. Straight, nares patient, mucosa pink, no discharge. No thyroid nodule appreciated. Cardio: Normal Rate and Rhythm with S1 and S2 heart sounds. No murmurs or extra heart sounds auscultated. No bruits on carotid auscultation. No peripheral edema or cyanosis. Lungs: Symmetric with good expansion. Chest and back non-tender. Breath sounds vesicular without crackles, wheezing or rhonchi Abdomen: Non-tender, Non-distended, Normal Reactive Bowel Sounds Neuro: Alert, cooperative, oriented to person, place, and time. Speech clear. CN grossly intact. Upper motor strength 5/5 and Lower motor strength 5/5. Sensation intact. Objective Labs 12/22/24 04:30 12/22/24 04:30 Labs: Laboratory Results - last 24 hr 12/21/24 04:41 WBC 9.2 RBC 3.33 L Hgb 8.3 L Hct 26.6 L MCV 80 MCH 24.9 L MCHC 31.2 RDW Std Deviation 42.5 Plt Count 363 Neut % (Auto) 67 Lymph % (Auto) 20 [place] % (Auto) 10 Eos % (Auto) 2 Baso % (Auto) 1 Neut # (Auto) 6.1 Lymph # (Auto) 1.9 [place] # (Auto) 0.9 H Eos # (Auto) 0.2 Baso # (Auto) 0.1 Immature Gran # (Auto) 0.05 H Absolute Nucleated RBC 0.00 Immature Gran % 1 H Nucleated RBC % 0 Sodium 138 Potassium 3.2 L Chloride 98 Carbon Dioxide 30.4 Anion Gap 10 BUN 18 Creatinine 3.1 H D Estim Creat Clear Calc 23.5 L eGFR 19 L BUN/Creatinine Ratio 6 L Glucose 119 H Calculated Osmolality 278 Calcium 9.9 Phosphorus 4.4 Magnesium 1.7 Quality Measures Quality Measures VTE prophylaxis Assessment & Plan Assessment Current Active Medications: Generic Name Dose Route Start Last Admin Trade Name Freq PRN Reason Stop Dose Admin Acetaminophen 650 mg 12/19/24 18:23 12/21/24 08:09 Acetaminophen 325 Mg Tablet PO 01/09/25 23:47 650 mg Q6H PRN Administration PAIN 1-6 (mild-mod Buspirone HCl 10 mg 12/11/24 21:00 12/20/24 20:23 Buspirone Hcl 5 Mg Tablet PO 01/10/25 20:59 10 mg HS CLEMENTINE Administration Calcium Acetate 667 mg 12/13/24 12:00 12/21/24 12:20 Calcium Acetate 667 Mg Tablet PO 01/12/25 11:59 667 mg TIDWM CLEMENTINE Administration Carvedilol 25 mg 12/20/24 17:30 12/21/24 08:04 Carvedilol 12.5 Mg Tablet PO 01/19/25 17:29 25 mg BIDWM CLEMENTINE Administration Citric Acid/Sodium Citrate 30 ml 12/12/24 09:00 12/21/24 08:07 Citric Acid/Sodium Citr 15 Ml Udc (Bicitra) PO 01/11/25 08:59 30 ml BID CLEMENTINE Administration Dextrose 25 ml 12/10/24 23:51 Dextrose 50%-Water Inj 50 Ml Syringe IV 01/09/25 23:50 Q15MIN PRN BG 50-70 responsive npo pt Dextrose 50 ml 12/10/24 23:51 12/13/24 11:33 Dextrose 50%-Water Inj 50 Ml Syringe IV 01/09/25 23:50 50 ml Q15MIN PRN Administration BG <50 OR BG <70 & pt unresponsive Famotidine 20 mg 12/19/24 09:00 12/21/24 08:04 Famotidine 20 Mg Tablet PO 01/18/25 08:59 20 mg QDAY CLEMENTINE Administration Ferrous Sulfate 325 mg 12/21/24 09:00 12/21/24 08:05 Ferrous Sulf 325 Mg Tablet PO 01/20/25 08:59 325 mg QOD CLEMENTINE Administration Glucagon 1 mg 12/10/24 23:51 Glucagon Inj 1 Mg Vial IM Q15MIN PRN BG <70, and no IV access Heparin Sodium (Porcine) 3,800 unit 12/16/24 12:29 12/20/24 12:20 Heparin Sod Inj 1000 Unit/Ml Vial 10 Ml INDWELLCAT 12/30/24 12:28 3,800 unit X1 PRN Administration DIALYSIS Hydralazine HCl 10 mg 12/19/24 09:12 Hydralazine Inj 20 Mg/Ml Vial IVP 01/18/25 09:11 Q6HR PRN SBP > 180 Hydralazine HCl 50 mg 12/20/24 14:00 12/21/24 13:58 Hydralazine Hcl 25 Mg Tablet PO 01/19/25 13:59 50 mg TID CLEMENTINE Administration Hydromorphone HCl 0.5 mg 12/19/24 18:22 12/21/24 13:55 Hydromorphone Inj 2 Mg/Ml Vial IVP 12/24/24 18:21 0.5 mg Q4HR PRN Administration PAIN SCALE 7-10 (Severe Hydroxyzine HCl 25 mg 12/13/24 21:00 12/20/24 20:23 Hydroxyzine Hcl 25 Mg Tablet PO 01/12/25 20:59 25 mg HS CLEMENTINE Administration Ceftriaxone Sodium/Dextrose 1 gm in 50 mls @ 100 mls/hr 12/17/24 09:00 12/21/24 08:09 Rocephin/D5w 1gm Iv Premix IV 12/24/24 08:59 100 mls/hr QDAY CLEMENTINE Administration Insulin Glargine 18 unit 12/15/24 21:00 12/20/24 20:21 Insulin Glargine (Lantus) 5 Unit/0.05 Ml (Per 5 Units) SC 01/14/25 20:59 18 unit HS CLEMENTINE Administration Insulin Human Lispro 0 unit 12/19/24 21:00 12/21/24 12:24 Insulin Lispro (Admelog) 1 Unit/0.01 Ml Unit SC 01/18/25 20:59 1 unit ACHS CLEMENTINE Administration Protocol Nifedipine 60 mg 12/16/24 14:00 12/21/24 08:05 Nifedipine Xl 30 Mg Tabcr PO 01/15/25 13:59 60 mg QDAY CLEMENTINE Administration Ondansetron HCl 4 mg 12/10/24 23:48 12/19/24 23:34 Ondansetron Inj 2 Mg/Ml Inj 2 Ml IVP 01/09/25 23:47 4 mg Q6H PRN Administration NAUSEA OR VOMITING Protocol Sennosides 1 tab 12/16/24 14:00 12/21/24 08:05 Senna Tablet PO 01/15/25 13:59 1 tab QDAY CLEMENTINE Administration Protocol Sodium Chloride 3 ml 12/11/24 14:16 12/13/24 08:41 Sodium Chloride Rt Katherine 0.9% 3 Ml Nebu INH 01/10/25 14:15 3 ml PRN PRN Administration SOLN Plan 44-year-old female with past medical history of insulin-dependent type 2 diabetes, hypertension, GERD, history of valley fever presented to the ED on 12/10 with episode of left flank pain, nausea/vomiting and chills will be admitted for hypertensive emergency requiring close monitoring along with acute renal failure requiring urology and nephrology consultation and IV antibiotics for cystitis #Bladder mass -Cystoscopic examination by Urologist Dr. Friedman: found Bilateral hydronephrosis, large bladder mass occupying posterior bladder wall occupying the ureteral orifices. -After cystoscopy, patient noted that she had history of cervical cancer 3 years ago. -MRI abd/pelvis: Mild to moderate bilateral hydronephorsis, and dilated ureters extending to the bladder. -Per nephrology, the bladder mass is confined to the bladder. -Patient received bilatereal percutaneous nephrostomy tube placement on 12/19/2024 Plan: -NPO on 12/24/2024 after midnight w/ repeat PT and PTT. -Planned for cystoscopy for biopsy of bladder mass on sunday12/24/2024, unclear whether she will receive bilateral urethral stents at this moment. #Acute renal failure 2/2 Urinary Retention 2/2 Obstructive Uropathy Patient experienced acute renal failure, likely secondary to obstructive uropathy given bladder mass noted on cystoscopy report. Previous UA noted to have hematuria. Improving renal function with nephrostomy tubes in place. Diagnostics: -Repeat UA 12/14 Urine protein +1 Urine blood +1 RBC 5 -12/20/2024 Patient produced 4.2 L of urine today. Current Cr: 4.1 Plan: -Nephrology consulted, Dr. Pierre, ordered nuclear renal scan, IgA levels for IgA nephropathy, Hepatitis A/B titers, ANCA titers, pending results, appreciate recommendations -Avoid nephrotoxic agents -Renally dose medications -Replete electrolytes as needed and follow-up with morning labs #Acute urinary retention, improving #Bilateral hydronephrosis, likely secondary to obstruction #Cystitis #Complicated UTI, nephrolithiasis #Hematuria -On exam, patient no longer has left flank flank with CVA tenderness -CT abdomen pelvis shows a thick-walled cavitary lesion in the right middle lobe and a 22 mm pulmonary nodule in the anterior right lower lobe, numerous bilateral nonobstructing renal calculi, moderate bilateral hydronephrosis without calculi and cystitis -Based on CTAP presentation, urinary retention due to intake of meclizine was suspected as patient started to take it 1wk everyday prior to coming to the hospital. -Renal Ultrasound (12/11/2024): Moderate bilateral hydronephrosis -Renal Ultrasound (12/12/2024): Moderate bilateral hydronephrosis. Plan: -Advised to stop taking meclizine. -Finished receiving IV ceftriaxone 2g IV qd (12/11-12/16). Now changed to IV ceftriaxone 1g IV qd (12/17-) #Hypertensive emergency, improving #Hypertension Patient has significant history of hypertension on home antihypertensives Presenting to the ED with acute renal failure and elevated systolic pressure in the 200s Plan: - continue Nifedipine 30mg PO qd - Coreg 25 mg PO BID - Hydralazine 50mg PO TID #Insulin-dependent type 2 diabetes Pertinent labs: 06/2024 A1C 11.1 12/11/24 A1C 8.0 Patient apparently takes 30 units of long-acting insulin twice a day Plan: Insulin Glargine 15 units at bedtime Sliding scale #History of Valley Fever -CTAP(03/21/2024):30 mm thick-walled cavitary lesion partially visualized right midlung,, 22 mm pulmonary nodule anterior right lower lobe -CXR(07/16/2024): Poorly defined nodular density 18 mm in the right lower lobe, -CXR (12/10/2024):Opacity right base which may represent a pulmonary mass, 19 mm -CTAP(12/10/2024): thick walled 25 mm cavitary lesion in the right middle lobe and 22mm pulmonary nodule anterior right lower lobe Plan: -Fairly stable right lung pulmonary nodule. -Will continue to monitor. #GERD Chronic medical problems: All pertinent to the following presentation Plan: -Continue Pantoprazole 40 mg PO QD Health Maintenance: Lines: PIV Diet: Renal and carb consistent low Bowel: Senna GI prophylaxis: Pantoprazole 40 mg PO QD DVT prophylaxis: SCD Dispo: Nephrology neurology recommendations, IV antibiotics for cystitis, pending cystoscopy and biopsy on Sun. Code: Full - The patient's plan was discussed with attending Dr. Robert Stark MD PGY2 Internal Medicine Attending Provider Attestation/Addendum I have examined the patient, reviewed labs and imaging findings, discussed the case with the resident(s), and reviewed entered orders. I agree with the plan of care as outlined in this note, with these additional summaries/recommendations: Patient seen at bedside. No acute overnight events. Patient reports her pain is currently controlled. Discussed with patient that she will remain hospitalized until at least Sunday for repeat cystoscopy with biopsy of bladder mass and possible stent placement. Patient may even require transfer to tertiary center after repeat cystoscopy versus outpatient follow-up. Patient is status post bilateral nephrostomy tubes. She continues to have significant output from nephrostomy tubes. Previous cystoscopy with urology revealed a large bladder mass occupying posterior bladder wall which is blocking ureteral orifices. Status post nephrostomy tubes. Patient unfortunately developed severe SAPPHIRE leading to dialysis. In-house nephrology following. Continue to avoid nephrotoxic agents and renally dose medications. Status post renal biopsy, f/u results when available. No dialysis needed today per nephrology and renal function actually improved to 3.1. Continue to avoid nephrotoxic agents and monitor urine output closely. Continue basal and bolus insulin for diabetes mellitus type 2. Continue home antihypertensives. Patient updated on the plan and is in agreement. All questions answered to satisfaction. Please see residents note for additional details and management. Dr. Robert MD
--- NOTE | 2024-12-21 15:54 | PC.CC ---
[address] Mckeon regarding the transfer. Dr. Hawkins stated pt will have repeat cystoscopy with Dr. Vidal on Sunday to evaluate if the transfer is needed or not. Until then transfer is on hold.
[2024-12-21] MEDS: ONDANSETRON INJ 2 MG/ML INJ 2 ML 4 MG IVP (19:24)
[2024-12-21] MEDS: INSULIN GLARGINE (Lantus) 5 UNIT/0.05 ML (PER 5 UNITS) 18 UNIT SC (20:54)
[2024-12-22] VITALS (12 sets, daily range): BP systolic 99–140; BP diastolic 52–81; PULSE 72–86; RESP 15–20; TEMP 36.1–37.2; O2SAT 93–100
[2024-12-22] MEDS: ACETAMINOPHEN 325 MG TABLET 650 MG PO ×2 (02:11→14:18)
[2024-12-22 05:47] LABS: Basophils # (Auto) 0.0 Thou/mm3 (0.0-0.2); Basophils % (Auto) 0 % (0-2.5); Eosinophils # (Auto) 0.1 Thou/mm3 (0.0-0.5); Eosinophils % (Auto) 1 % (0-10); Hematocrit 25.7 % (36.0-46.0); Immature Granulocytes Auto 0.13 Thou/mm3 (0.00-0.00); Lymphocytes # (Auto) 1.8 Thou/mm3 (1.0-4.8); Lymphocytes % (Auto) 16 % (10-50); Mean Corpuscular HGB Conc 31.1 g/dl (31.0-37.0); Mean Corpuscular Hemoglobin 24.5 pg (25.0-35.0); Mean Corpuscular Volume 79 fL (80-100); Monocytes # (Auto) 1.0 Thou/mm3 (0.0-0.8); Monocytes % (Auto) 9 % (0-12); Neutrophils # (Auto) 8.6 Thou/mm3 (1.8-7.7); Neutrophils % (Auto) 73 % (37-80); Nucleated Red Blood Cell # 0.00 Thou/mm3 (0.00-0.00); Nucleated Red Blood Cell % 0 /100 WBC (0); Platelet Count 404 Thou/mm3 (140-440); RDW Standard Deviation 42.2 fL (36.4-46.3); Red Blood Count 3.27 Miln/mm3 (4.00-5.20); White Blood Count 11.8 Thou/mm3 (3.6-11.0)
[2024-12-22 06:10] LABS: Hemoglobin 8.0 g/dL (12.0-16.0)
[2024-12-22 06:19] LABS: Anion Gap 12 (7-16); BUN/Creatinine Ratio 7 Ratio (12-20); Blood Urea Nitrogen 25 mg/dL (9-23); Calcium 9.0 mg/dL (8.3-10.6); Carbon Dioxide 29.5 mMol/L (20.0-31.0); Chloride 96 mMol/L (98-107); Creatinine (Component) 3.7 mg/dL (0.6-1.3); Estimated Creatinine Clearance 19.6 mL/min (>60); Glucose 149 mg/dL (74-106); Magnesium 1.6 mg/dL (1.6-2.6); Osmolality,Calculated 281 (275-295); Phosphorous 4.0 mg/dL (2.4-5.1); Potassium 3.4 mMol/L (3.4-5.1); Sodium 137 mMol/L (136-145); eGFR 15 See Note
[2024-12-22] MEDS: HYDROmorphone INJ 2 MG/ML VIAL 0.5 MG IVP ×2 (08:30→22:37)
[2024-12-22] MEDS: NIFEdipine XL 30 MG TABCR 60 MG PO (08:32)
[2024-12-22] MEDS: CITRIC ACID/SODIUM CITR 15 ML UDC (BICITRA) 30 ML PO ×2 (08:32→22:46)
[2024-12-22] MEDS: cefTRIAXone/D5w 1gm IV premix 1 GM/50 ML BAG IV (08:32)
[2024-12-22] MEDS: CALCIUM ACETATE 667 MG TABLET PO ×3 (08:41→16:49)
[2024-12-22] MEDS: FAMOTIDINE 20 MG TABLET PO (08:41)
--- NOTE | 2024-12-22 09:40 | ESPR_ITS ---
Documentation for date of: 12/22/24 Subjective Subjective Interval history: Ms. Cedillo is a 44-year-old female with past medical history of insulin- dependent type 2 diabetes, hypertension, GERD, history of valley fever untreated presented to the ED on 12/10 with episode of left flank pain, nausea/vomiting and chills. Patient states that the chills started roughly an hour ago but that she has been having progressively worsening left flank pain radiating to her back. Patient denies having any dysuria but does state that she has been having lilia hematuria for several days. Patient denies having any fevers but she does state that she has been having chills. Patient also complains of suprapubic pain and mentions that she feels pain near her ovaries. Patient has not seen PCP regarding the symptoms but she was seen several weeks ago for GERD like symptoms and was given medications. Patient otherwise denies having any concerning symptoms such as chest pain, dizziness, shortness of breath. In the ED, patient presented in hypertensive emergency with a blood pressure 187/83, other vitals wnl. Pertinent lab findings included WBC of 9, hemoglobin 7.9, potassium of 5.4, BUN of 31, creatinine 3.9, EGFR of 14, magnesium 1.6, troponin less than 0.02, BNP of 235, urinalysis shows hematuria and mild pyuria but no bacteria. Chest x-ray shows mild prominence of ventricles along with opacity in the right base concerning for pulmonary mass, EKG shows sinus rhythm without any concerning ST changes and CT abdomen pelvis shows a thick-walled cavitary lesion in the right middle lobe and a 22 mm pulmonary nodule in the anterior right lower lobe, numerous bilateral nonobstructing renal calculi, moderate bilateral hydronephrosis without calculi and cystitis. Patient will be admitted for hypertensive emergency requiring close monitoring along with acute renal failure requiring urology and nephrology consultation and IV antibiotics for cystitis Upon seeing the patient currently, she is on Mg Sulfate, Ceftriaxone, Carvedilol 6.25 mg, and maintenance IV fluids with a slightly improved blood pressure of 168/88 with the rest of vitals wnl. Patient states she is currently feeling much better now. States that she still has some nausea, L flank pain radiating to back and some dizziness when she stands up for too long. Patient states she has noticed blood in her urine today and ever since March. Patient endorses having bowel movements. Patient denies fever, headache, chest pain, shortness of breath, vomiting. 12/16/24: Patient was seen and examined at bedside with family members. Patient received dialysis catheter yesterday. Plan to get kidney biopsy today before starting dialysis. No new complaints. Denies chest pain, SOB, fever, flank pain or abdominal pain. Cr and BUN continue to stay elevated despite making good urine. 12/17/24 No acute events overnight. Patient seen and examined at bedside. Patient had renal biopsy and first HD done yesterday. Planning to receieve cystoscopy followed by urethral stents. No new complaints. Denies chest pain, SOB, fever, flank pain or abdominal pain. Mild improvement in Cr after first HD yesterday, will get HD again today. 12/18/24 No acute events overnight. Patient seen and examined at bedside getting dialysis. Patient is currently getting HD #3 today. Patient states she is having some non-radiating pain in the right abdomen. She also states she has not been able to make urine herself anymore. Denies chest pain, SOB, fever, flank pain. Cystoscopy showed bladder tumor; ordered MR Abd/Pelvis. Based on results, consult GI/OBGYN 12/19/24 Overnight, patient was reported by the night team to have had abdominal pain with some black stools, given Dilaudid. Vitals and labs reviewed. Patient seen and examined at bedside getting dialysis. Patient tolerated HD well yesterday. Patient states she is having an easier time making urine today. Patient currently denies chest pain, SOB, fever, abdominal pain, flank pain. Plan to get bilateral nephrostomy tubes placed today. 12/20/24 No acute events overnight. Vitals and labs reviewed. Patient seen and examined at bedside getting dialysis. Endorsed having nausea and vomited a little bit this morning during dialysis. Patient currently denies chest pain, SOB, fever, abdominal pain, flank pain. Bilateral nephrostomy tubes placed yesterday. Plan for Kidney biopsy Sunday 12/24. 12/21/24 Patient seen and examined at bedside with . No new complaints and is feeling well today. Denies N/V, chest pain, SOB or fever. K 3.2, Cr 3.1 and BUN 18. Autoimmune panel negative. Reassess labs tomorrow for possible HD. 12/22/24 No acute events overnight. Vitals and labs reviewed. Patient seen and examined at bedside. Patient denied any complaints/concerns. Patient currently denies chest pain, SOB, fever, abdominal pain, flank pain. Nephrostomy tubes outputting urine in one bag and small amount of blood in the other. Plan for Kidney biopsy Sunday 12/24. Exam Vital Signs Temp Pulse Resp BP Pulse Ox O2 Del Method O2 Flow Rate 97.4 F 80 20 140/66 H 96 Nasal Cannula 2 12/22/24 08:00 12/22/24 08:32 12/22/24 08:00 12/22/24 08:32 12/22/24 08:00 12/22/24 08:00 12/22/24 08:00 Narrative Exam GENERAL: a&o x3, no acute distress, sitting up eating in bed HEENT: NC/AT. Moist mucosa. PERRLA/EOMI. R IJ dialysis catheter CARDIO: Heart RRR, no murmurs appreciated PULM: Lungs CTA B/L, no resp distress ABD: soft, non-distended, non-tender SKIN: No edema bilateral lower extremities. No wounds/discoloration/rashes/amputations. +Pedal pulses present B/L. MSK: No joint swelling or pain/tenderness noted. Bilateral nephrostomy tubes draining (R with blood) EXT: upper and lower extremities atraumatic in appearance, able to move all 4 extremities. NEURO: no focal neurologic deficits noted Objective Labs 12/23/24 04:30 12/23/24 04:30 Labs: Laboratory Results - last 24 hr 12/22/24 04:30 WBC 11.8 H RBC 3.27 L Hgb 8.0 L Hct 25.7 L MCV 79 L MCH 24.5 L MCHC 31.1 RDW Std Deviation 42.2 Plt Count 404 D Neut % (Auto) 73 Lymph % (Auto) 16 [place] % (Auto) 9 Eos % (Auto) 1 Baso % (Auto) 0 Neut # (Auto) 8.6 H Lymph # (Auto) 1.8 [place] # (Auto) 1.0 H Eos # (Auto) 0.1 Baso # (Auto) 0.0 Immature Gran # (Auto) 0.13 H Absolute Nucleated RBC 0.00 Immature Gran % 1 H Nucleated RBC % 0 Sodium 137 Potassium 3.4 Chloride 96 L Carbon Dioxide 29.5 Anion Gap 12 BUN 25 H Creatinine 3.7 H D Estim Creat Clear Calc 19.6 L eGFR 15 L BUN/Creatinine Ratio 7 L Glucose 149 H Calculated Osmolality 281 Calcium 9.0 Phosphorus 4.0 Magnesium 1.6 Quality Measures Quality Measures VTE prophylaxis Assessment & Plan Assessment Current Active Medications: Generic Name Dose Route Start Last Admin Trade Name Micheletq PRN Reason Stop Dose Admin Acetaminophen 650 mg 12/19/24 18:23 12/22/24 02:11 Acetaminophen 325 Mg Tablet PO 01/09/25 23:47 650 mg Q6H PRN Administration PAIN 1-6 (mild-mod Buspirone HCl 10 mg 12/11/24 21:00 12/21/24 20:52 Buspirone Hcl 5 Mg Tablet PO 01/10/25 20:59 10 mg HS CLEMENTINE Administration Calcium Acetate 667 mg 12/13/24 12:00 12/22/24 08:41 Calcium Acetate 667 Mg Tablet PO 01/12/25 11:59 667 mg TIDWM CLEMENTINE Administration Carvedilol 25 mg 12/20/24 17:30 12/22/24 08:32 Carvedilol 12.5 Mg Tablet PO 01/19/25 17:29 25 mg BIDWM CLEMENTINE Administration Citric Acid/Sodium Citrate 30 ml 12/12/24 09:00 12/22/24 08:32 Citric Acid/Sodium Citr 15 Ml Udc (Bicitra) PO 01/11/25 08:59 30 ml BID CLEMENTINE Administration Dextrose 25 ml 12/10/24 23:51 Dextrose 50%-Water Inj 50 Ml Syringe IV 01/09/25 23:50 Q15MIN PRN BG 50-70 responsive npo pt Dextrose 50 ml 12/10/24 23:51 12/13/24 11:33 Dextrose 50%-Water Inj 50 Ml Syringe IV 01/09/25 23:50 50 ml Q15MIN PRN Administration BG <50 OR BG <70 & pt unresponsive Famotidine 20 mg 12/19/24 09:00 12/22/24 08:41 Famotidine 20 Mg Tablet PO 01/18/25 08:59 20 mg QDAY CLEMENTINE Administration Ferrous Sulfate 325 mg 12/21/24 09:00 12/21/24 08:05 Ferrous Sulf 325 Mg Tablet PO 01/20/25 08:59 325 mg QOD CLEMENTINE Administration Glucagon 1 mg 12/10/24 23:51 Glucagon Inj 1 Mg Vial IM Q15MIN PRN BG <70, and no IV access Heparin Sodium (Porcine) 3,800 unit 12/16/24 12:29 12/20/24 12:20 Heparin Sod Inj 1000 Unit/Ml Vial 10 Ml INDWELLCAT 12/30/24 12:28 3,800 unit X1 PRN Administration DIALYSIS Hydralazine HCl 10 mg 12/19/24 09:12 Hydralazine Inj 20 Mg/Ml Vial IVP 01/18/25 09:11 Q6HR PRN SBP > 180 Hydralazine HCl 50 mg 12/20/24 14:00 12/22/24 05:28 Hydralazine Hcl 25 Mg Tablet PO 01/19/25 13:59 50 mg TID CLEMENTINE Administration Hydromorphone HCl 0.5 mg 12/19/24 18:22 12/22/24 08:30 Hydromorphone Inj 2 Mg/Ml Vial IVP 12/24/24 18:21 0.5 mg Q4HR PRN Administration PAIN SCALE 7-10 (Severe Hydroxyzine HCl 25 mg 12/13/24 21:00 12/21/24 20:52 Hydroxyzine Hcl 25 Mg Tablet PO 01/12/25 20:59 25 mg HS CLEMENTINE Administration Ceftriaxone Sodium/Dextrose 1 gm in 50 mls @ 100 mls/hr 12/17/24 09:00 12/22/24 08:32 Rocephin/D5w 1gm Iv Premix IV 12/24/24 08:59 100 mls/hr QDAY CLEMENTINE Administration Insulin Glargine 18 unit 12/15/24 21:00 12/21/24 20:54 Insulin Glargine (Lantus) 5 Unit/0.05 Ml (Per 5 Units) SC 01/14/25 20:59 18 unit HS CLEMENTINE Administration Insulin Human Lispro 0 unit 12/19/24 21:00 12/22/24 08:21 Insulin Lispro (Admelog) 1 Unit/0.01 Ml Unit SC 01/18/25 20:59 Not Given ACHS CLEMENTINE Protocol Nifedipine 60 mg 12/16/24 14:00 12/22/24 08:32 Nifedipine Xl 30 Mg Tabcr PO 01/15/25 13:59 60 mg QDAY CLEMENTINE Administration Ondansetron HCl 4 mg 12/10/24 23:48 12/21/24 19:24 Ondansetron Inj 2 Mg/Ml Inj 2 Ml IVP 01/09/25 23:47 4 mg Q6H PRN Administration NAUSEA OR VOMITING Protocol Sennosides 1 tab 12/16/24 14:00 12/22/24 08:41 Senna Tablet PO 01/15/25 13:59 1 tab QDAY CLEMENTINE Administration Protocol Sodium Chloride 3 ml 12/11/24 14:16 12/13/24 08:41 Sodium Chloride Rt Katherine 0.9% 3 Ml Nebu INH 01/10/25 14:15 3 ml PRN PRN Administration SOLN Plan Kacy Cedillo is a 44-year-old female with past medical history of insulin-dependent type 2 diabetes, hypertension, GERD, history of valley fever untreated presented to the ED on 12/10 with episode of left flank pain, nausea/vomiting and chills will be admitted for hypertensive emergency requiring close monitoring along with acute renal failure requiring urology and nephrology consultation and IV antibiotics for cystitis #Acute kidney injury Likely multifactorial; suspecting pre-renal ischemic ATN vs obstructive etiology vs pre-renal from hypertensive emergency. Patient found to have pyelonephritis and seems to have vesicular ureteral reflux. CT showed numerous b/l nonobstructing renal caliculi, mod b/l hydronephrosis wo ureteral calculi, cystitis pattern Cr continues to stay elevated despite making good urine; patient clinically looks relatively well otherwise, Patient endorses having 3/4 UTI's per year. Patient received a kidney biopsy which showed ATN/AIN and underlying diabetes/hypertensive nephrosclerosis Bilateral percutaneous nephrostomy tube placed Ulytes wnl. DEMARCUS, ANCA, C3/C4, IgA negative, no indication of autoimmune disease. Plan: -No HD today, plan for outpatient HD, per urology. -Plan for Bladder cystoscopy & biopsy Sunday. -Intermittent urethral catheterization (1-2x per day) if pt unable to make urine. -Urology: Cystoscopy showed bladder tumor; ordered MR Abd/Pelvis. Based on results, consult GI/OBGYN. -Needs outpatient tertiary care center evaluation for large bladder tumor. -Strict I/O's -Avoid nephrotoxic agents -Renally dose medications -Replete electrolytes as needed and follow-up with morning labs #Acute urinary retention #Bilateral hydronephrosis #Cystitis #Complicated UTI, nephrolithiasis #Hematuria #Hypertensive emergency, improving #Hypertension #Insulin-dependent type 2 diabetes #GERD -Managed per primary team Thank you for allowing us to take part in the care of Ms. Cedillo Plan of care discussed with attending, Dr. Miriam Martinez MD PGY-1 Attending Provider Attestation/Addendum Patient seen and examined with resident physician Dr. Martinez. Note reviewed, agree with findings and recommendations. 12/20/2024 Patient with worsening azotemia.Biopsy showed ATN/AIN with underlying diabetes/hypertensive nephrosclerosis. Patient agreed for biopsy. Did receive 3 sessions of dialysis and is feeling better. PermCath placed by IR. Patient seen by urology for persistent hydronephrosis. Cystoscopy showed large bladder tumor blocking the ureteral orifices. Renal scan showed no function consistent with ATN. Patient had bilateral percutaneous nephrostomy tube placement today. MRI abdomen pelvis did not show any malignancy. She will need outpatient tertiary care center evaluation for a large bladder tumor per urology. Dr. Vidal stated that he will do cystoscopy and biopsy next Sunday. Pending biopsy might need transfer to tertiary care center.Also recommended intermittent catheterization for possible neurogenic bladder. Plan of care discussed with patient and family at bedside on daily basis. 12/21/2024 patient resting comfortably. With bilateral nephrostomy tubes she has good urinary output. Hopefully will be renal recovery. Dr. Vidal planning to do cystoscopy with biopsy on Sunday. Spoke to primary team. 12/22/2024 patient will be going for a nephrostomy tube placement today. Hold off on dialysis.
[2024-12-22] MEDS: MAGNESIUM OXIDE 400 MG TABLET PO (10:05)
[2024-12-22] MEDS: INSULIN LISPRO (AdmeLOG) 1 UNIT/0.01 ML UNIT SC ×3 (11:46→23:40)
--- NOTE | 2024-12-22 13:51 | PC.SS ---
Rounding: Pending SX with Dr. Friedman on Sun12-24-24
--- NOTE | 2024-12-22 14:04 | ESPR_ITS ---
Documentation for date of: 12/22/24 Senior resident attestation: Patient evaluated and examined at the bedside, plan of care discussed with rest of the team including my attending physician, except as noted. The patient is s/p bilateral nephrostomy tube placements for obstructive nephropathy, she had good urine out from nephrostomy drains, upto 4 lt yesterday, today on;y 200 ml from rt nephrostomy tube and almost 2000 ml from left nephrostomy drain. The patient is pending a cystoscopy on sunday per urology OR schedule for biopsy. Nephrology and urology are following and coordinating care in this regard. Holding off on transfer for [facility] [employer] [facility] as no pelvic mass found on MRI scans. Will await urologist and manager intel recommendations. Per Nephrology, holding hemodilaysis for now. will re evaluate tomorrow. Quresh PGY3 Subjective Subjective Interval history: No Overnight events. Labs reviewed and patient examined at the bedside. Output:900ml. Total urine output was 900 mL. Hematuria was observed in the output from the right nephrostomy tube, while the left nephrostomy output remained clear and unremarkable. Patient endorses right flank pain. Nephrostomy tube insertion site looks clear and dry bilaterally. Planned for cystoscopy with biopsy of bladder mass this Sunday12/24/2024. Today, hemodialysis is on hold. Denies of SOB, chest pain, palpitations, abd pain, fevers, or chills. Exam Vital Signs Temp Pulse Resp BP Pulse Ox O2 Del Method O2 Flow Rate 97.1 F 79 20 137/75 H 100 Nasal Cannula 2 12/22/24 12:12/22/24 12:12/22/24 12:12/22/24 12:12/22/24 12:12/22/24 12:12/22/24 12:00 Narrative Exam General: No acute distress, well nourished Eye: PERRL, EOMI, normal conjunctiva, no scleral icterus HENT: Normocephalic, atraumatic, hearing intact to conversation at normal volume, moist oral mucosa Neck: Supple, non-tender, no JVD, no lymphadenopathy Lungs: Non-labored respirations, symmetric chest rise, Clear to auscultate bilaterally Heart: Peripheral pulses intact bilaterally, Regular rate and Rhythm. Abdomen: Soft, non-tender, non-distended. Right flank pain. Musculoskeletal: Normal range of motion and strength Skin: Skin is warm, dry, no rashes or lesions. Psychiatric: Cooperative, appropriate mood and affect Neuro: Cranial nerves II-XII grossly intact. Strength 5/5 throughout. Sensations intact to light touch. Objective Labs 12/28/24 04:44 12/28/24 04:44 Labs: Laboratory Results - last 24 hr 12/22/24 04:30 WBC 11.8 H RBC 3.27 L Hgb 8.0 L Hct 25.7 L MCV 79 L MCH 24.5 L MCHC 31.1 RDW Std Deviation 42.2 Plt Count 404 D Neut % (Auto) 73 Lymph % (Auto) 16 Hoke % (Auto) 9 Eos % (Auto) 1 Baso % (Auto) 0 Neut # (Auto) 8.6 H Lymph # (Auto) 1.8 Hoke # (Auto) 1.0 H Eos # (Auto) 0.1 Baso # (Auto) 0.0 Immature Gran # (Auto) 0.13 H Absolute Nucleated RBC 0.00 Immature Gran % 1 H Nucleated RBC % 0 Sodium 137 Potassium 3.4 Chloride 96 L Carbon Dioxide 29.5 Anion Gap 12 BUN 25 H Creatinine 3.7 H D Estim Creat Clear Calc 19.6 L eGFR 15 L BUN/Creatinine Ratio 7 L Glucose 149 H Calculated Osmolality 281 Calcium 9.0 Phosphorus 4.0 Magnesium 1.6 Quality Measures Quality Measures VTE prophylaxis Assessment & Plan Assessment Current Active Medications: Generic Name Dose Route Start Last Admin Trade Name Kaleigh PRN Reason Stop Dose Admin Acetaminophen 650 mg 12/19/24 18:23 12/22/24 02:11 Acetaminophen 325 Mg Tablet PO 01/09/25 23:47 650 mg Q6H PRN Administration PAIN 1-6 (mild-mod Buspirone HCl 10 mg 12/11/24 21:00 12/21/24 20:52 Buspirone Hcl 5 Mg Tablet PO 01/10/25 20:59 10 mg HS CLEMENTINE Administration Calcium Acetate 667 mg 12/13/24 12:00 12/22/24 08:41 Calcium Acetate 667 Mg Tablet PO 01/12/25 11:59 667 mg TIDWM CLEMENTINE Administration Carvedilol 25 mg 12/20/24 17:30 12/22/24 08:32 Carvedilol 12.5 Mg Tablet PO 01/19/25 17:29 25 mg BIDWM CLEMENTINE Administration Citric Acid/Sodium Citrate 30 ml 12/12/24 09:00 12/22/24 08:32 Citric Acid/Sodium Citr 15 Ml Udc (Bicitra) PO 01/11/25 08:59 30 ml BID CLEMENTINE Administration Dextrose 25 ml 12/10/24 23:51 Dextrose 50%-Water Inj 50 Ml Syringe IV 01/09/25 23:50 Q15MIN PRN BG 50-70 responsive npo pt Dextrose 50 ml 12/10/24 23:51 12/13/24 11:33 Dextrose 50%-Water Inj 50 Ml Syringe IV 01/09/25 23:50 50 ml Q15MIN PRN Administration BG <50 OR BG <70 & pt unresponsive Famotidine 20 mg 12/19/24 09:00 12/22/24 08:41 Famotidine 20 Mg Tablet PO 01/18/25 08:59 20 mg QDAY CLEMENTINE Administration Ferrous Sulfate 325 mg 12/21/24 09:00 12/21/24 08:05 Ferrous Sulf 325 Mg Tablet PO 01/20/25 08:59 325 mg QOD CLEMENTINE Administration Glucagon 1 mg 12/10/24 23:51 Glucagon Inj 1 Mg Vial IM Q15MIN PRN BG <70, and no IV access Heparin Sodium (Porcine) 3,800 unit 12/16/24 12:29 12/20/24 12:20 Heparin Sod Inj 1000 Unit/Ml Vial 10 Ml INDWELLCAT 12/30/24 12:28 3,800 unit X1 PRN Administration DIALYSIS Hydralazine HCl 10 mg 12/19/24 09:12 Hydralazine Inj 20 Mg/Ml Vial IVP 01/18/25 09:11 Q6HR PRN SBP > 180 Hydralazine HCl 50 mg 12/20/24 14:00 12/22/24 05:28 Hydralazine Hcl 25 Mg Tablet PO 01/19/25 13:59 50 mg TID CLEMENTINE Administration Hydromorphone HCl 0.5 mg 12/19/24 18:22 12/22/24 08:30 Hydromorphone Inj 2 Mg/Ml Vial IVP 12/24/24 18:21 0.5 mg Q4HR PRN Administration PAIN SCALE 7-10 (Severe Hydroxyzine HCl 25 mg 12/13/24 21:00 12/21/24 20:52 Hydroxyzine Hcl 25 Mg Tablet PO 01/12/25 20:59 25 mg HS CLEMENTINE Administration Ceftriaxone Sodium/Dextrose 1 gm in 50 mls @ 100 mls/hr 12/17/24 09:00 12/22/24 08:32 Rocephin/D5w 1gm Iv Premix IV 12/24/24 08:59 100 mls/hr QDAY CLEMENTINE Administration Insulin Glargine 18 unit 12/15/24 21:00 12/21/24 20:54 Insulin Glargine (Lantus) 5 Unit/0.05 Ml (Per 5 Units) SC 01/14/25 20:59 18 unit HS CLEMENTINE Administration Insulin Human Lispro 0 unit 12/19/24 21:00 12/22/24 11:46 Insulin Lispro (Admelog) 1 Unit/0.01 Ml Unit SC 01/18/25 20:59 1 unit ACHS CLEMENTINE Administration Protocol Nifedipine 60 mg 12/16/24 14:00 12/22/24 08:32 Nifedipine Xl 30 Mg Tabcr PO 01/15/25 13:59 60 mg QDAY CLEMENTINE Administration Ondansetron HCl 4 mg 12/10/24 23:48 12/21/24 19:24 Ondansetron Inj 2 Mg/Ml Inj 2 Ml IVP 01/09/25 23:47 4 mg Q6H PRN Administration NAUSEA OR VOMITING Protocol Sennosides 1 tab 12/16/24 14:00 12/22/24 08:41 Senna Tablet PO 01/15/25 13:59 1 tab QDAY CLEMENTINE Administration Protocol Sodium Chloride 3 ml 12/11/24 14:16 12/13/24 08:41 Sodium Chloride Rt Katherine 0.9% 3 Ml Nebu INH 01/10/25 14:15 3 ml PRN PRN Administration SOLN Plan 44-year-old female with past medical history of insulin-dependent type 2 diabetes, hypertension, GERD, history of valley fever presented to the ED on 12/10 with episode of left flank pain, nausea/vomiting and chills will be admitted for hypertensive emergency requiring close monitoring along with acute renal failure requiring urology and nephrology consultation and IV antibiotics for cystitis #Bladder mass -Cystoscopic examination by Urologist Dr. Friedman: found Bilateral hydronephrosis, large bladder mass occupying posterior bladder wall occupying the ureteral orifices. -After cystoscopy, patient noted that she had history of cervical cancer 3 years ago. -MRI abd/pelvis: Mild to moderate bilateral hydronephorsis, and dilated ureters extending to the bladder. -Per nephrology, the bladder mass is confined to the bladder. -Patient received bilatereal percutaneous nephrostomy tube placement on 12/19/2024 Plan: -NPO on 12/24/2024 after midnight w/ repeat PT and PTT. -Planned for cystoscopy for biopsy of bladder mass on sunday12/24/2024, unclear whether she will receive bilateral urethral stents at this moment. #Acute renal failure 2/2 Urinary Retention 2/2 Obstructive Uropathy Patient experienced acute renal failure, likely secondary to obstructive uropathy given bladder mass noted on cystoscopy report. Previous UA noted to have hematuria. Improving renal function with nephrostomy tubes in place. Diagnostics: -Repeat UA 12/14 Urine protein +1 Urine blood +1 RBC 5 -12/20/2024 Patient produced 4.2 L of urine . -12/22/2024 Patient's output was 900 mL. Hematuria was observed in the output from the right nephrostomy tube, while the left nephrostomy output remained clear and unremarkable. Cr level of 3.7 Plan: -Nephrology consulted, Dr. Pierre, ordered nuclear renal scan, IgA levels for IgA nephropathy, Hepatitis A/B titers, ANCA titers, pending results, appreciate recommendations -Avoid nephrotoxic agents -Renally dose medications -Replete electrolytes as needed and follow-up with morning labs -Currently, hemodialysis is on hold. #Acute urinary retention, improving #Bilateral hydronephrosis, likely secondary to obstruction #Cystitis #Complicated UTI, nephrolithiasis #Hematuria -On exam, patient no longer has left flank flank with CVA tenderness -CT abdomen pelvis shows a thick-walled cavitary lesion in the right middle lobe and a 22 mm pulmonary nodule in the anterior right lower lobe, numerous bilateral nonobstructing renal calculi, moderate bilateral hydronephrosis without calculi and cystitis -Based on CTAP presentation, urinary retention due to intake of meclizine was suspected as patient started to take it 1wk everyday prior to coming to the hospital. -Renal Ultrasound (12/11/2024): Moderate bilateral hydronephrosis -Renal Ultrasound (12/12/2024): Moderate bilateral hydronephrosis. Plan: -Advised to stop taking meclizine. -Finished receiving IV ceftriaxone 2g IV qd (12/11-12/16). Now changed to IV ceftriaxone 1g IV qd (12/17-) #Hypertensive emergency, improving #Hypertension Patient has significant history of hypertension on home antihypertensives Presenting to the ED with acute renal failure and elevated systolic pressure in the 200s Plan: - continue Nifedipine 30mg PO qd - Coreg 25 mg PO BID - Hydralazine 50mg PO TID #Insulin-dependent type 2 diabetes Pertinent labs: 06/2024 A1C 11.1 12/11/24 A1C 8.0 Patient apparently takes 30 units of long-acting insulin twice a day Plan: Insulin Glargine 15 units at bedtime Sliding scale #History of Valley Fever -CTAP(03/21/2024):30 mm thick-walled cavitary lesion partially visualized right midlung,, 22 mm pulmonary nodule anterior right lower lobe -CXR(07/16/2024): Poorly defined nodular density 18 mm in the right lower lobe, -CXR (12/10/2024):Opacity right base which may represent a pulmonary mass, 19 mm -CTAP(12/10/2024): thick walled 25 mm cavitary lesion in the right middle lobe and 22mm pulmonary nodule anterior right lower lobe Plan: -Fairly stable right lung pulmonary nodule. -Will continue to monitor. #GERD Chronic medical problems: All pertinent to the following presentation Plan: -Continue Pantoprazole 40 mg PO QD Health Maintenance: Lines: PIV Diet: Renal and carb consistent low Bowel: Senna GI prophylaxis: Pantoprazole 40 mg PO QD DVT prophylaxis: SCD Dispo: Nephrology neurology recommendations, IV antibiotics for cystitis, pending cystoscopy and biopsy on Sun. Code: Full Assessment and plan discussed with my attending physician Dr. Jones and Dr. Kim (PGY-3) Dr. Silva (PGY-1)- Internal medicine resident Attending Provider Attestation/Addendum I have examined the patient, reviewed labs and imaging findings, discussed the case with the resident(s), and reviewed entered orders. I agree with the plan of care as outlined in this note, with these additional summaries/recommendations: Patient seen at bedside. No acute overnight events. Patient and family updated on the plan. Patient reports her pain is currently controlled. Discussed with patient that she will remain hospitalized until at least Sunday for repeat cystoscopy with biopsy of bladder mass and possible stent placement. Patient may even require transfer to tertiary center after repeat cystoscopy versus outpatient follow-up. Patient is status post bilateral nephrostomy tubes. Left nephrostomy tube has appropriate output and minimal blood noted in right nephrostomy tube. Previous cystoscopy with urology revealed a large bladder mass occupying posterior bladder wall which is blocking ureteral orifices. Status post nephrostomy tubes. Patient unfortunately developed severe SAPPHIRE leading to dialysis. In-house nephrology following. Continue to avoid nephrotoxic agents and renally dose medications. Status post renal biopsy, f/u results when available. Continue to avoid nephrotoxic agents and monitor urine output closely. Continue basal and bolus insulin for diabetes mellitus type 2. Continue home antihypertensives. Patient updated on the plan and is in agreement. All questions answered to satisfaction. Please see residents note for additional details and management. Dr. Robert MD
[2024-12-22] MEDS: ONDANSETRON INJ 2 MG/ML INJ 2 ML 4 MG IVP (22:36)
[2024-12-22] MEDS: INSULIN GLARGINE (Lantus) 5 UNIT/0.05 ML (PER 5 UNITS) 18 UNIT SC (23:41)
[2024-12-23] VITALS (13 sets, daily range): BP systolic 98–128; BP diastolic 57–73; PULSE 73–80; RESP 15–18; TEMP 36.2–36.8; O2SAT 95–99
[2024-12-23] MEDS: HYDROmorphone INJ 2 MG/ML VIAL 0.5 MG IVP ×5 (04:25→23:43)
[2024-12-23 05:51] LABS: Basophils # (Auto) 0.0 Thou/mm3 (0.0-0.2); Basophils % (Auto) 0 % (0-2.5); Eosinophils # (Auto) 0.2 Thou/mm3 (0.0-0.5); Eosinophils % (Auto) 2 % (0-10); Hematocrit 25.1 % (36.0-46.0); Immature Granulocytes Auto 0.05 Thou/mm3 (0.00-0.00); Lymphocytes # (Auto) 2.0 Thou/mm3 (1.0-4.8); Lymphocytes % (Auto) 16 % (10-50); Mean Corpuscular HGB Conc 31.5 g/dl (31.0-37.0); Mean Corpuscular Hemoglobin 24.8 pg (25.0-35.0); Mean Corpuscular Volume 79 fL (80-100); Monocytes # (Auto) 1.0 Thou/mm3 (0.0-0.8); Monocytes % (Auto) 8 % (0-12); Neutrophils # (Auto) 8.9 Thou/mm3 (1.8-7.7); Neutrophils % (Auto) 73 % (37-80); Nucleated Red Blood Cell # 0.00 Thou/mm3 (0.00-0.00); Nucleated Red Blood Cell % 0 /100 WBC (0); Platelet Count 385 Thou/mm3 (140-440); RDW Standard Deviation 42.7 fL (36.4-46.3); Red Blood Count 3.18 Miln/mm3 (4.00-5.20); White Blood Count 12.1 Thou/mm3 (3.6-11.0)
[2024-12-23 06:03] LABS: Hemoglobin 7.9 g/dL (12.0-16.0)
[2024-12-23 06:21] LABS: Anion Gap 10 (7-16); BUN/Creatinine Ratio 7 Ratio (12-20); Blood Urea Nitrogen 28 mg/dL (9-23); Calcium 8.8 mg/dL (8.3-10.6); Carbon Dioxide 29.8 mMol/L (20.0-31.0); Chloride 96 mMol/L (98-107); Creatinine (Component) 3.8 mg/dL (0.6-1.3); Estimated Creatinine Clearance 19.1 mL/min (>60); Glucose 139 mg/dL (74-106); Magnesium 1.8 mg/dL (1.6-2.6); Osmolality,Calculated 279 (275-295); Phosphorous 4.0 mg/dL (2.4-5.1); Potassium 3.2 mMol/L (3.4-5.1); Sodium 136 mMol/L (136-145); eGFR 15 See Note
[2024-12-23] MEDS: FERROUS SULF 325 MG TABLET PO (09:09)
[2024-12-23] MEDS: CALCIUM ACETATE 667 MG TABLET PO ×3 (09:09→16:33)
[2024-12-23] MEDS: FAMOTIDINE 20 MG TABLET PO (09:09)
[2024-12-23] MEDS: NIFEdipine XL 30 MG TABCR 60 MG PO (09:09)
[2024-12-23] MEDS: CITRIC ACID/SODIUM CITR 15 ML UDC (BICITRA) 30 ML PO ×2 (09:10→21:10)
[2024-12-23] MEDS: cefTRIAXone/D5w 1gm IV premix 1 GM/50 ML BAG IV (09:11)
--- NOTE | 2024-12-23 09:57 | PD.RESPRO ---
Documentation for date of: 12/23/24 Subjective Subjective Interval history: Ms. Cedillo is a 44-year-old female with past medical history of insulin-dependent type 2 diabetes, hypertension, GERD, history of valley fever untreated presented to the ED on 12/10 with episode of left flank pain, nausea/vomiting and chills. Patient states that the chills started roughly an hour ago but that she has been having progressively worsening left flank pain radiating to her back. Patient denies having any dysuria but does state that she has been having lilia hematuria for several days. Patient denies having any fevers but she does state that she has been having chills. Patient also complains of suprapubic pain and mentions that she feels pain near her ovaries. Patient has not seen PCP regarding the symptoms but she was seen several weeks ago for GERD like symptoms and was given medications. Patient otherwise denies having any concerning symptoms such as chest pain, dizziness, shortness of breath. In the ED, patient presented in hypertensive emergency with a blood pressure 187/83, other vitals wnl. Pertinent lab findings included WBC of 9, hemoglobin 7.9, potassium of 5.4, BUN of 31, creatinine 3.9, EGFR of 14, magnesium 1.6, troponin less than 0.02, BNP of 235, urinalysis shows hematuria and mild pyuria but no bacteria. Chest x-ray shows mild prominence of ventricles along with opacity in the right base concerning for pulmonary mass, EKG shows sinus rhythm without any concerning ST changes and CT abdomen pelvis shows a thick-walled cavitary lesion in the right middle lobe and a 22 mm pulmonary nodule in the anterior right lower lobe, numerous bilateral nonobstructing renal calculi, moderate bilateral hydronephrosis without calculi and cystitis. Patient will be admitted for hypertensive emergency requiring close monitoring along with acute renal failure requiring urology and nephrology consultation and IV antibiotics for cystitis Upon seeing the patient currently, she is on Mg Sulfate, Ceftriaxone, Carvedilol 6.25 mg, and maintenance IV fluids with a slightly improved blood pressure of 168/88 with the rest of vitals wnl. Patient states she is currently feeling much better now. States that she still has some nausea, L flank pain radiating to back and some dizziness when she stands up for too long. Patient states she has noticed blood in her urine today and ever since March. Patient endorses having bowel movements. Patient denies fever, headache, chest pain, shortness of breath, vomiting. 12/16/24: Patient was seen and examined at bedside with family members. Patient received dialysis catheter yesterday. Plan to get kidney biopsy today before starting dialysis. No new complaints. Denies chest pain, SOB, fever, flank pain or abdominal pain. Cr and BUN continue to stay elevated despite making good urine. 12/17/24 No acute events overnight. Patient seen and examined at bedside. Patient had renal biopsy and first HD done yesterday. Planning to receieve cystoscopy followed by urethral stents. No new complaints. Denies chest pain, SOB, fever, flank pain or abdominal pain. Mild improvement in Cr after first HD yesterday, will get HD again today. 12/18/24 No acute events overnight. Patient seen and examined at bedside getting dialysis. Patient is currently getting HD #3 today. Patient states she is having some non-radiating pain in the right abdomen. She also states she has not been able to make urine herself anymore. Denies chest pain, SOB, fever, flank pain. Cystoscopy showed bladder tumor; ordered MR Abd/Pelvis. Based on results, consult GI/OBGYN 12/19/24 Overnight, patient was reported by the night team to have had abdominal pain with some black stools, given Dilaudid. Vitals and labs reviewed. Patient seen and examined at bedside getting dialysis. Patient tolerated HD well yesterday. Patient states she is having an easier time making urine today. Patient currently denies chest pain, SOB, fever, abdominal pain, flank pain. Plan to get bilateral nephrostomy tubes placed today. 12/20/24 No acute events overnight. Vitals and labs reviewed. Patient seen and examined at bedside getting dialysis. Endorsed having nausea and vomited a little bit this morning during dialysis. Patient currently denies chest pain, SOB, fever, abdominal pain, flank pain. Bilateral nephrostomy tubes placed yesterday. Plan for Kidney biopsy Sunday 12/24. 12/21/24 Patient seen and examined at bedside with . No new complaints and is feeling well today. Denies N/V, chest pain, SOB or fever. K 3.2, Cr 3.1 and BUN 18. Autoimmune panel negative. Reassess labs tomorrow for possible HD. 12/22/24 No acute events overnight. Vitals and labs reviewed. Patient seen and examined at bedside. Patient denied any complaints/concerns. Patient currently denies chest pain, SOB, fever, abdominal pain, flank pain. Nephrostomy tubes outputting urine in one bag and small amount of blood in the other. Plan for Kidney biopsy Sunday 12/24. 12/23/24: No acute events overnight. Vitals and labs reviewed. Patient seen and examined at bedside. Patient denied any complaints/concerns. Patient currently denies chest pain, SOB, fever, abdominal pain, flank pain. Continue to hold dialysis today. Nephrostomy tubes continues to output good urine in one bag and small amount of blood in the other. Plan for Kidney biopsy Sunday 12/24. Exam Vital Signs Temp Pulse Resp BP Pulse Ox O2 Del Method O2 Flow Rate 97.8 F 77 18 128/59 L 99 Nasal Cannula 2 12/23/24 08:00 12/23/24 09:09 12/23/24 08:00 12/23/24 09:09 12/23/24 08:00 12/23/24 08:00 12/23/24 08:00 Narrative Exam GENERAL: a&o x3, no acute distress, sitting up eating in bed HEENT: NC/AT. Moist mucosa. PERRLA/EOMI. R IJ dialysis catheter CARDIO: Heart RRR, no murmurs appreciated PULM: Lungs CTA B/L, no resp distress ABD: soft, non-distended, non-tender SKIN: No edema bilateral lower extremities. No wounds/discoloration/rashes/amputations. +Pedal pulses present B/L. MSK: No joint swelling or pain/tenderness noted. Bilateral nephrostomy tubes draining (R with blood) EXT: upper and lower extremities atraumatic in appearance, able to move all 4 extremities. NEURO: no focal neurologic deficits noted Objective Labs 12/23/24 04:30 12/23/24 04:30 Labs: Laboratory Results - last 24 hr 12/23/24 04:30 WBC 12.1 H RBC 3.18 L Hgb 7.9 L Hct 25.1 L MCV 79 L MCH 24.8 L MCHC 31.5 RDW Std Deviation 42.7 Plt Count 385 Neut % (Auto) 73 Lymph % (Auto) 16 Crockett % (Auto) 8 Eos % (Auto) 2 Baso % (Auto) 0 Neut # (Auto) 8.9 H Lymph # (Auto) 2.0 Crockett # (Auto) 1.0 H Eos # (Auto) 0.2 Baso # (Auto) 0.0 Immature Gran # (Auto) 0.05 H Absolute Nucleated RBC 0.00 Immature Gran % 0 Nucleated RBC % 0 Sodium 136 Potassium 3.2 L Chloride 96 L Carbon Dioxide 29.8 Anion Gap 10 BUN 28 H Creatinine 3.8 H Estim Creat Clear Calc 19.1 L eGFR 15 L BUN/Creatinine Ratio 7 L Glucose 139 H Calculated Osmolality 279 Calcium 8.8 Phosphorus 4.0 Magnesium 1.8 Quality Measures Quality Measures VTE prophylaxis Assessment & Plan Assessment Current Active Medications: Generic Name Dose Route Start Last Admin Trade Name Freq PRN Reason Stop Dose Admin Acetaminophen 650 mg 12/19/24 18:23 12/22/24 14:18 Acetaminophen 325 Mg Tablet PO 01/09/25 23:47 650 mg Q6H PRN Administration PAIN 1-6 (mild-mod Buspirone HCl 10 mg 12/11/24 21:00 12/22/24 22:46 Buspirone Hcl 5 Mg Tablet PO 01/10/25 20:59 10 mg HS CLEMENTINE Administration Calcium Acetate 667 mg 12/13/24 12:00 12/23/24 09:09 Calcium Acetate 667 Mg Tablet PO 01/12/25 11:59 667 mg TIDWM CLEMENTINE Administration Carvedilol 25 mg 12/20/24 17:30 12/23/24 09:08 Carvedilol 12.5 Mg Tablet PO 01/19/25 17:29 25 mg BIDWM CLEMENTINE Administration Citric Acid/Sodium Citrate 30 ml 12/12/24 09:00 12/23/24 09:10 Citric Acid/Sodium Citr 15 Ml Udc (Bicitra) PO 01/11/25 08:59 30 ml BID CLEMENTINE Administration Dextrose 25 ml 12/10/24 23:51 Dextrose 50%-Water Inj 50 Ml Syringe IV 01/09/25 23:50 Q15MIN PRN BG 50-70 responsive npo pt Dextrose 50 ml 12/10/24 23:51 12/13/24 11:33 Dextrose 50%-Water Inj 50 Ml Syringe IV 01/09/25 23:50 50 ml Q15MIN PRN Administration BG <50 OR BG <70 & pt unresponsive Famotidine 20 mg 12/19/24 09:00 12/23/24 09:09 Famotidine 20 Mg Tablet PO 01/18/25 08:59 20 mg QDAY CLEMENTINE Administration Ferrous Sulfate 325 mg 12/21/24 09:00 12/23/24 09:09 Ferrous Sulf 325 Mg Tablet PO 01/20/25 08:59 325 mg QOD CLEMENTINE Administration Glucagon 1 mg 12/10/24 23:51 Glucagon Inj 1 Mg Vial IM Q15MIN PRN BG <70, and no IV access Heparin Sodium (Porcine) 3,800 unit 12/16/24 12:29 12/20/24 12:20 Heparin Sod Inj 1000 Unit/Ml Vial 10 Ml INDWELLCAT 12/30/24 12:28 3,800 unit X1 PRN Administration DIALYSIS Hydralazine HCl 10 mg 12/19/24 09:12 Hydralazine Inj 20 Mg/Ml Vial IVP 01/18/25 09:11 Q6HR PRN SBP > 180 Hydralazine HCl 50 mg 12/20/24 14:00 12/23/24 05:52 Hydralazine Hcl 25 Mg Tablet PO 01/19/25 13:59 Not Given TID CLEMENTINE Hydromorphone HCl 0.5 mg 12/19/24 18:22 12/23/24 09:31 Hydromorphone Inj 2 Mg/Ml Vial IVP 12/24/24 18:21 0.5 mg Q4HR PRN Administration PAIN SCALE 7-10 (Severe Hydroxyzine HCl 25 mg 12/13/24 21:00 12/22/24 22:46 Hydroxyzine Hcl 25 Mg Tablet PO 01/12/25 20:59 25 mg HS CLEMENTINE Administration Ceftriaxone Sodium/Dextrose 1 gm in 50 mls @ 100 mls/hr 12/17/24 09:00 12/23/24 09:11 Rocephin/D5w 1gm Iv Premix IV 12/24/24 08:59 100 mls/hr QDAY CLEMENTINE Administration Insulin Glargine 18 unit 12/15/24 21:00 12/22/24 23:41 Insulin Glargine (Lantus) 5 Unit/0.05 Ml (Per 5 Units) SC 01/14/25 20:59 18 unit HS CLEMENTINE Administration Insulin Human Lispro 0 unit 12/19/24 21:00 12/23/24 07:57 Insulin Lispro (Admelog) 1 Unit/0.01 Ml Unit SC 01/18/25 20:59 Not Given ACHS CLEMENTINE Protocol Nifedipine 60 mg 12/16/24 14:00 12/23/24 09:09 Nifedipine Xl 30 Mg Tabcr PO 01/15/25 13:59 60 mg QDAY CLEMENTINE Administration Ondansetron HCl 4 mg 12/10/24 23:48 12/22/24 22:36 Ondansetron Inj 2 Mg/Ml Inj 2 Ml IVP 01/09/25 23:47 4 mg Q6H PRN Administration NAUSEA OR VOMITING Protocol Sennosides 1 tab 12/16/24 14:00 12/23/24 09:09 Senna Tablet PO 01/15/25 13:59 1 tab QDAY CLEMENTINE Administration Protocol Sodium Chloride 3 ml 12/11/24 14:16 12/13/24 08:41 Sodium Chloride Rt Katherine 0.9% 3 Ml Nebu INH 01/10/25 14:15 3 ml PRN PRN Administration SOLN Plan Kacy Cedillo is a 44-year-old female with past medical history of insulin-dependent type 2 diabetes, hypertension, GERD, history of valley fever untreated presented to the ED on 12/10 with episode of left flank pain, nausea/vomiting and chills will be admitted for hypertensive emergency requiring close monitoring along with acute renal failure requiring urology and nephrology consultation and IV antibiotics for cystitis #Acute kidney injury Likely multifactorial; suspecting pre-renal ischemic ATN vs obstructive etiology vs pre-renal from hypertensive emergency. Patient found to have pyelonephritis and seems to have vesicular ureteral reflux. CT showed numerous b/l nonobstructing renal caliculi, mod b/l hydronephrosis wo ureteral calculi, cystitis pattern Cr continues to stay elevated despite making good urine; patient clinically looks relatively well otherwise, Patient endorses having 3/4 UTI's per year. Patient received a kidney biopsy which showed ATN/AIN and underlying diabetes/hypertensive nephrosclerosis Bilateral percutaneous nephrostomy tube placed Ulytes wnl. DEMARCUS, ANCA, C3/C4, IgA negative, no indication of autoimmune disease. Plan: -No HD today, plan for outpatient HD, per urology. -Plan for Bladder cystoscopy & biopsy Sunday. -Intermittent urethral catheterization (1-2x per day) if pt unable to make urine. -Urology: Cystoscopy showed bladder tumor; ordered MR Abd/Pelvis. Based on results, consult GI/OBGYN. -Needs outpatient tertiary care center evaluation for large bladder tumor. -Strict I/O's -Avoid nephrotoxic agents -Renally dose medications -Replete electrolytes as needed and follow-up with morning labs #Acute urinary retention #Bilateral hydronephrosis #Cystitis #Complicated UTI, nephrolithiasis #Hematuria #Hypertensive emergency, improving #Hypertension #Insulin-dependent type 2 diabetes #GERD -Managed per primary team Thank you for allowing us to take part in the care of Ms. Cedillo Plan of care discussed with attending, Dr. Miriam Martinez MD PGY-1 Attending Provider Attestation/Addendum Patient seen and examined with resident physician Dr. Martinez. Note reviewed, agree with findings and recommendations. 12/20/2024 Patient with worsening azotemia.Biopsy showed ATN/AIN with underlying diabetes/hypertensive nephrosclerosis. Patient agreed for biopsy. Did receive 3 sessions of dialysis and is feeling better. PermCath placed by IR. Patient seen by urology for persistent hydronephrosis. Cystoscopy showed large bladder tumor blocking the ureteral orifices. Renal scan showed no function consistent with ATN. Patient had bilateral percutaneous nephrostomy tube placement today. MRI abdomen pelvis did not show any malignancy. She will need outpatient tertiary care center evaluation for a large bladder tumor per urology. Dr. Vidal stated that he will do cystoscopy and biopsy next Sunday. Pending biopsy might need transfer to tertiary care center.Also recommended intermittent catheterization for possible neurogenic bladder. Plan of care discussed with patient and family at bedside on daily basis. 12/21/2024 patient resting comfortably. With bilateral nephrostomy tubes she has good urinary output. Hopefully will be renal recovery. Dr. Vidal planning to do cystoscopy with biopsy on Sunday. Spoke to primary team. 12/22/2024 patient will be going for a nephrostomy tube placement today. Hold off on dialysis. 12/23/2024 patient currently seen in medical floor. Bilateral nephrostomy tube has good drainage. Hold dialysis today. Hope there will be renal recovery. Tomorrow she is going to get cystoscopy with biopsy. Spoke to Dr. Vidal. N.p.o. after midnight
[2024-12-23] MEDS: INSULIN LISPRO (AdmeLOG) 1 UNIT/0.01 ML UNIT SC ×3 (11:33→21:13)
--- NOTE | 2024-12-23 11:50 | ESPR_ITS ---
Documentation for date of: 12/23/24 Subjective Subjective Interval history: No Overnight events. Labs reviewed and patient examined at the bedside. Patient endorses right flank pain. Right nephrostomy drainage bag contained hematuria. Left bag contained clear yellow urine. Bilateral nephrostomy tube insertion sites were clean, dry and intact. Scheduled for cystoscopy with biopsy of bladder mass tomorrow. Patient had total output of 1155mL, and Cr of 3.8. No hemodilaysis today. Denies chest pain, palpation, SOB, fevers or chills. Exam Vital Signs Temp Pulse Resp BP Pulse Ox O2 Del Method O2 Flow Rate 97.8 F 77 18 128/59 L 99 Nasal Cannula 2 12/23/24 08:00 12/23/24 09:09 12/23/24 08:00 12/23/24 09:09 12/23/24 08:00 12/23/24 08:00 12/23/24 08:00 Narrative Exam General: No acute distress, well nourished Eye: PERRL, EOMI, normal conjunctiva, no scleral icterus HENT: Normocephalic, atraumatic, hearing intact to conversation at normal volume, moist oral mucosa Neck: Supple, non-tender, no JVD, no lymphadenopathy Lungs: Non-labored respirations, symmetric chest rise, Clear to auscultate bilaterally Heart: Peripheral pulses intact bilaterally, Regular rate and Rhythm. Abdomen: Soft, non-tender, non-distended. Right flank pain. Musculoskeletal: Normal range of motion and strength Skin: Skin is warm, dry, no rashes or lesions. Psychiatric: Cooperative, appropriate mood and affect Neuro: Cranial nerves II-XII grossly intact. Strength 5/5 throughout. Sensations intact to light touch. Objective Labs 12/23/24 04:30 12/23/24 04:30 Labs: Laboratory Results - last 24 hr 12/23/24 04:30 WBC 12.1 H RBC 3.18 L Hgb 7.9 L Hct 25.1 L MCV 79 L MCH 24.8 L MCHC 31.5 RDW Std Deviation 42.7 Plt Count 385 Neut % (Auto) 73 Lymph % (Auto) 16 [place] % (Auto) 8 Eos % (Auto) 2 Baso % (Auto) 0 Neut # (Auto) 8.9 H Lymph # (Auto) 2.0 [place] # (Auto) 1.0 H Eos # (Auto) 0.2 Baso # (Auto) 0.0 Immature Gran # (Auto) 0.05 H Absolute Nucleated RBC 0.00 Immature Gran % 0 Nucleated RBC % 0 Sodium 136 Potassium 3.2 L Chloride 96 L Carbon Dioxide 29.8 Anion Gap 10 BUN 28 H Creatinine 3.8 H Estim Creat Clear Calc 19.1 L eGFR 15 L BUN/Creatinine Ratio 7 L Glucose 139 H Calculated Osmolality 279 Calcium 8.8 Phosphorus 4.0 Magnesium 1.8 Quality Measures Quality Measures VTE prophylaxis Assessment & Plan Assessment Current Active Medications: Generic Name Dose Route Start Last Admin Trade Name Freq PRN Reason Stop Dose Admin Acetaminophen 650 mg 12/19/24 18:23 12/22/24 14:18 Acetaminophen 325 Mg Tablet PO 01/09/25 23:47 650 mg Q6H PRN Administration PAIN 1-6 (mild-mod Buspirone HCl 10 mg 12/11/24 21:00 12/22/24 22:46 Buspirone Hcl 5 Mg Tablet PO 01/10/25 20:59 10 mg HS CLEMENTINE Administration Calcium Acetate 667 mg 12/13/24 12:00 12/23/24 11:33 Calcium Acetate 667 Mg Tablet PO 01/12/25 11:59 667 mg TIDWM CLEMENTINE Administration Carvedilol 25 mg 12/20/24 17:30 12/23/24 09:08 Carvedilol 12.5 Mg Tablet PO 01/19/25 17:29 25 mg BIDWM CLEMENTINE Administration Citric Acid/Sodium Citrate 30 ml 12/12/24 09:00 12/23/24 09:10 Citric Acid/Sodium Citr 15 Ml Udc (Bicitra) PO 01/11/25 08:59 30 ml BID CLEMENTINE Administration Dextrose 25 ml 12/10/24 23:51 Dextrose 50%-Water Inj 50 Ml Syringe IV 01/09/25 23:50 Q15MIN PRN BG 50-70 responsive npo pt Dextrose 50 ml 12/10/24 23:51 12/13/24 11:33 Dextrose 50%-Water Inj 50 Ml Syringe IV 01/09/25 23:50 50 ml Q15MIN PRN Administration BG <50 OR BG <70 & pt unresponsive Famotidine 20 mg 12/19/24 09:00 12/23/24 09:09 Famotidine 20 Mg Tablet PO 01/18/25 08:59 20 mg QDAY CLEMENTINE Administration Ferrous Sulfate 325 mg 12/21/24 09:00 12/23/24 09:09 Ferrous Sulf 325 Mg Tablet PO 01/20/25 08:59 325 mg QOD CLEMENTINE Administration Glucagon 1 mg 12/10/24 23:51 Glucagon Inj 1 Mg Vial IM Q15MIN PRN BG <70, and no IV access Heparin Sodium (Porcine) 3,800 unit 12/16/24 12:29 12/20/24 12:20 Heparin Sod Inj 1000 Unit/Ml Vial 10 Ml INDWELLCAT 12/30/24 12:28 3,800 unit X1 PRN Administration DIALYSIS Hydralazine HCl 10 mg 12/19/24 09:12 Hydralazine Inj 20 Mg/Ml Vial IVP 01/18/25 09:11 Q6HR PRN SBP > 180 Hydralazine HCl 50 mg 12/20/24 14:00 12/23/24 05:52 Hydralazine Hcl 25 Mg Tablet PO 01/19/25 13:59 Not Given TID CLEMENTINE Hydromorphone HCl 0.5 mg 12/19/24 18:22 12/23/24 09:31 Hydromorphone Inj 2 Mg/Ml Vial IVP 12/24/24 18:21 0.5 mg Q4HR PRN Administration PAIN SCALE 7-10 (Severe Hydroxyzine HCl 25 mg 12/13/24 21:00 12/22/24 22:46 Hydroxyzine Hcl 25 Mg Tablet PO 01/12/25 20:59 25 mg HS CLEMENTINE Administration Ceftriaxone Sodium/Dextrose 1 gm in 50 mls @ 100 mls/hr 12/17/24 09:00 12/23/24 09:11 Rocephin/D5w 1gm Iv Premix IV 12/24/24 08:59 100 mls/hr QDAY CLEMENTINE Administration Insulin Glargine 18 unit 12/15/24 21:00 12/22/24 23:41 Insulin Glargine (Lantus) 5 Unit/0.05 Ml (Per 5 Units) SC 01/14/25 20:59 18 unit HS CLEMENTINE Administration Insulin Human Lispro 0 unit 12/19/24 21:00 12/23/24 11:33 Insulin Lispro (Admelog) 1 Unit/0.01 Ml Unit SC 01/18/25 20:59 2 unit ACHS CLEMENTINE Administration Protocol Nifedipine 60 mg 12/16/24 14:00 12/23/24 09:09 Nifedipine Xl 30 Mg Tabcr PO 01/15/25 13:59 60 mg QDAY CLEMENTINE Administration Ondansetron HCl 4 mg 12/10/24 23:48 12/22/24 22:36 Ondansetron Inj 2 Mg/Ml Inj 2 Ml IVP 01/09/25 23:47 4 mg Q6H PRN Administration NAUSEA OR VOMITING Protocol Sennosides 1 tab 12/16/24 14:00 12/23/24 09:09 Senna Tablet PO 01/15/25 13:59 1 tab QDAY CLEMENTINE Administration Protocol Sodium Chloride 3 ml 12/11/24 14:16 12/13/24 08:41 Sodium Chloride Rt Katherine 0.9% 3 Ml Nebu INH 01/10/25 14:15 3 ml PRN PRN Administration SOLN Plan 44-year-old female with past medical history of insulin-dependent type 2 diabetes, hypertension, GERD, history of valley fever presented to the ED on 12/10 with episode of left flank pain, nausea/vomiting and chills will be admitted for hypertensive emergency requiring close monitoring along with acute renal failure requiring urology and nephrology consultation and IV antibiotics for cystitis #Bladder mass -Cystoscopic examination by Urologist Dr. Friedman: found Bilateral hydronephrosis, large bladder mass occupying posterior bladder wall occupying the ureteral orifices. -After cystoscopy, patient noted that she had history of cervical cancer 3 years ago. -MRI abd/pelvis: Mild to moderate bilateral hydronephorsis, and dilated ureters extending to the bladder. -Per nephrology, the bladder mass is confined to the bladder. -Patient received bilatereal percutaneous nephrostomy tube placement on 12/19/2024 Plan: -NPO on 12/24/2024 after midnight w/ repeat PT and PTT. -Planned for cystoscopy for biopsy of bladder mass on sunday12/24/2024, unclear whether she will receive bilateral urethral stents at this moment. #Acute renal failure 2/2 Urinary Retention 2/2 Obstructive Uropathy Patient experienced acute renal failure, likely secondary to obstructive uropathy given bladder mass noted on cystoscopy report. Previous UA noted to have hematuria. Improving renal function with nephrostomy tubes in place. Diagnostics: -Repeat UA 12/14 Urine protein +1 Urine blood +1 RBC 5 -12/20/2024 Patient produced 4.2 L of urine . -12/22/2024 Patient's output was 1155 mL. Hematuria was observed in the output from the right nephrostomy tube, while the left nephrostomy output remained clear and unremarkable. Cr level of 3.8 Plan: -Nephrology consulted, Dr. Pierre, ordered nuclear renal scan, IgA levels for IgA nephropathy, Hepatitis A/B titers, ANCA titers, pending results, appreciate recommendations -Avoid nephrotoxic agents -Renally dose medications -Replete electrolytes as needed and follow-up with morning labs -Currently, hemodialysis is on hold. #Acute urinary retention, improving #Bilateral hydronephrosis, likely secondary to obstruction #Cystitis #Complicated UTI, nephrolithiasis #Hematuria -On exam, patient no longer has left flank flank with CVA tenderness -CT abdomen pelvis shows a thick-walled cavitary lesion in the right middle lobe and a 22 mm pulmonary nodule in the anterior right lower lobe, numerous bilateral nonobstructing renal calculi, moderate bilateral hydronephrosis without calculi and cystitis -Based on CTAP presentation, urinary retention due to intake of meclizine was suspected as patient started to take it 1wk everyday prior to coming to the hospital. -Renal Ultrasound (12/11/2024): Moderate bilateral hydronephrosis -Renal Ultrasound (12/12/2024): Moderate bilateral hydronephrosis. Plan: -Advised to stop taking meclizine. -Finished receiving IV ceftriaxone 2g IV qd (12/11-12/16). Now changed to IV ceftriaxone 1g IV qd (12/17-) #Hypertensive emergency, improving #Hypertension Patient has significant history of hypertension on home antihypertensives Presenting to the ED with acute renal failure and elevated systolic pressure in the 200s Plan: - continue Nifedipine 30mg PO qd - Coreg 25 mg PO BID - Hydralazine 50mg PO TID #Insulin-dependent type 2 diabetes Pertinent labs: 06/2024 A1C 11.1 12/11/24 A1C 8.0 Patient apparently takes 30 units of long-acting insulin twice a day Plan: Insulin Glargine 15 units at bedtime Sliding scale #History of Valley Fever -CTAP(03/21/2024):30 mm thick-walled cavitary lesion partially visualized right midlung,, 22 mm pulmonary nodule anterior right lower lobe -CXR(07/16/2024): Poorly defined nodular density 18 mm in the right lower lobe, -CXR (12/10/2024):Opacity right base which may represent a pulmonary mass, 19 mm -CTAP(12/10/2024): thick walled 25 mm cavitary lesion in the right middle lobe and 22mm pulmonary nodule anterior right lower lobe Plan: -Fairly stable right lung pulmonary nodule. -Will continue to monitor. #GERD Chronic medical problems: All pertinent to the following presentation Plan: -Continue Pantoprazole 40 mg PO QD Health Maintenance: Lines: PIV Diet: Renal and carb consistent low Bowel: Senna GI prophylaxis: Pantoprazole 40 mg PO QD DVT prophylaxis: SCD Dispo: Nephrology neurology recommendations, IV antibiotics for cystitis, pending cystoscopy and biopsy on Sun. Code: Full Attending Provider Attestation/Addendum I attest that I was physically present for the evaluation, physical examination, lab and imaging review of the patient with the residents. I discussed the case with the residents and agree with the findings and plans of care as documented above. At bedside today, patient is states she is feeling okay and denies new complaints. Continues to have mild right flank pain, controlled with analgesics. Noted to have mild hematuria without clots in her right nephrostomy bag. Insertion sites well cleaned bilaterally. Mild output of 1155 in last 24 hours. Vitals are stable. Lab results show slightly increased WBC, 12.1 today, likely reactive. Patient is planned for cystoscopy tomorrow with urology, we will keep her n.p.o. after midnight. Nephrology following closely for SAPPHIRE, kidney function is stable, appreciate recommendations. She will complete her Rocephin dosing today for complicated UTI. Blood pressure is controlled with nifedipine, Coreg and hydralazine. Continues to be on insulin regimen, we will adjust as needed. Sally Benjamin MD
[2024-12-23] MEDS: LACTULOSE SYRUP 20 GM/30 ML UDC 10 GM PO (15:25)
[2024-12-23] MEDS: INSULIN GLARGINE (Lantus) 5 UNIT/0.05 ML (PER 5 UNITS) 18 UNIT SC (21:12)
[2024-12-24] VITALS (19 sets, daily range): BP systolic 97–144; BP diastolic 58–89; PULSE 68–85; RESP 12–18; TEMP 36.1–37.6; O2SAT 92–99; BMI 34.4
[2024-12-24] MEDS: HYDROmorphone INJ 2 MG/ML VIAL 0.5 MG IVP ×3 (03:43→17:27)
[2024-12-24 05:31] LABS: Basophils # (Auto) 0.0 Thou/mm3 (0.0-0.2); Basophils % (Auto) 0 % (0-2.5); Eosinophils # (Auto) 0.3 Thou/mm3 (0.0-0.5); Eosinophils % (Auto) 3 % (0-10); Hematocrit 24.7 % (36.0-46.0); Immature Granulocytes Auto 0.08 Thou/mm3 (0.00-0.00); Lymphocytes # (Auto) 1.6 Thou/mm3 (1.0-4.8); Lymphocytes % (Auto) 16 % (10-50); Mean Corpuscular HGB Conc 31.2 g/dl (31.0-37.0); Mean Corpuscular Hemoglobin 24.4 pg (25.0-35.0); Mean Corpuscular Volume 78 fL (80-100); Monocytes # (Auto) 0.9 Thou/mm3 (0.0-0.8); Monocytes % (Auto) 9 % (0-12); Neutrophils # (Auto) 7.4 Thou/mm3 (1.8-7.7); Neutrophils % (Auto) 72 % (37-80); Nucleated Red Blood Cell # 0.00 Thou/mm3 (0.00-0.00); Nucleated Red Blood Cell % 0 /100 WBC (0); Platelet Count 421 Thou/mm3 (140-440); RDW Standard Deviation 40.9 fL (36.4-46.3); Red Blood Count 3.16 Miln/mm3 (4.00-5.20); White Blood Count 10.3 Thou/mm3 (3.6-11.0)
[2024-12-24 05:35] LABS: Hemoglobin 7.7 g/dL (12.0-16.0)
[2024-12-24 05:43] LABS: INR 1.0 (0.9-1.3); Partial Thromboplastin Time 32.6 Seconds (22.0-36.0); Prothrombin Time 11.0 Seconds (9.0-12.2)
[2024-12-24 06:05] LABS: Alanine Aminotransferase < 7 U/L (10-49); Albumin, Serum 3.9 gm/dL (3.5-5.0); Albumin/Globulin Ratio 1.3 (1.2-2.2); Alkaline Phosphatase 93 U/L (46-116); Anion Gap 11 (7-16); Aspartate Amino Transferase < 8 U/L (0-34); BUN/Creatinine Ratio 8 Ratio (12-20); Bilirubin,Total 0.3 mg/dL (0.3-1.2); Blood Urea Nitrogen 29 mg/dL (9-23); Calcium 8.8 mg/dL (8.3-10.6); Calcium (Corrected) 8.9 mg/dL (8.5-10.1); Carbon Dioxide 30.5 mMol/L (20.0-31.0); Chloride 95 mMol/L (98-107); Creatinine (Component) 3.8 mg/dL (0.6-1.3); Estimated Creatinine Clearance 19.1 mL/min (>60); Globulin 3.0 gm/dL (2.3-3.5); Glucose 146 mg/dL (74-106); Magnesium 1.6 mg/dL (1.6-2.6); Osmolality,Calculated 280 (275-295); Phosphorous 4.2 mg/dL (2.4-5.1); Potassium 3.3 mMol/L (3.4-5.1); Sodium 136 mMol/L (136-145); Total Protein 6.9 gm/dL (5.7-8.2); eGFR 15 See Note
--- NOTE | 2024-12-24 07:40 | PC.CM ---
Patient's transfer on hold. Dr. Friedman is planning on doing a procedure today. Patient will be evaluated after the procedure to see if she still needs higher level transfer.
--- NOTE | 2024-12-24 07:51 | PC.NURSE ---
Per Dr. platt hold all AM meds for procedure. aware BP 115/69 and HR 81.
[2024-12-24] MEDS: POTASSIUM CHL 10 mEq IVPB 10 MEQ/100 ML BAG 80 MEQ IV ×4 (09:37→16:45)
[2024-12-24] MEDS: Magnesium Sulfate 2 GM Ivpb 2 GM/50 ML BAG IV (09:37)
--- NOTE | 2024-12-24 09:43 | ESPR_ITS ---
Documentation for date of: 12/24/24 Senior resident attestation: Patient evaluated and examined at the bedside, plan of care discussed with rest of the team including my attending physician, except as noted. #Acute kidney injury?DDx obstructive nephropathy vs ATN. Urology is consulted, patient is status post cystoscopy, status post bilateral nephrostomy tubes, right nephrostomy tube stopped draining for the past 2 days, ordered IR nephrostogram. Currently on hemodialysis. Path report pending final results, was sent to [facility]. Initial workup for autoimmune glomerulonephritis has been negative so far. #Bladder mass?concern for bladder cancer? Urologist Dr. Friedman had another cystoscopy procedure, biopsy of bladder mass was done, bladder mass obstructing the orifice of ureters, no stents placed. Pending further recommendations from urology, initial recommendations were to get abdominal pelvic MRI to rule out possible metastatic spread of pelvic neoplasm to bladder, but negative imaging for neoplasm so far. Initial recommendations were to transfer patient out for [facility]. As primary team were coordinating care between nephrology and urology. #Hematuria #History of valley fever #History of diabetes mellitus #Anemia?likely iron deficiency anemia. From chronic hematuria. Quresh PGY3 Subjective Subjective Interval history: No Overnight events. Labs reviewed and patient examined at the bedside. Patient is scheduled for cystoscopy with biopsy of her bladder mass today. Creatinine is 3.8. Total Output is 4.3L. Right nephrostomy tube output is markedly decreased, with bloody urine noted in the drainage bag. Nephrostogram ordered due to no output from right nephrostomy tube. Scheduled for cystoscopy with biopsy. Patient complains of right sided flank pain with generalized abdominal pain. Denies SOB, palpitation, chest pain, fevers or chills. Exam Vital Signs Temp Pulse Resp BP Pulse Ox O2 Del Method O2 Flow Rate 97.5 F 81 16 115/69 92 L Room Air 2 12/24/24 08:00 12/24/24 08:00 12/24/24 08:00 12/24/24 08:00 12/24/24 08:00 12/24/24 08:00 12/23/24 16:00 Narrative Exam General: No acute distress, well nourished Eye: PERRL, EOMI, normal conjunctiva, no scleral icterus HENT: Normocephalic, atraumatic, hearing intact to conversation at normal volume, moist oral mucosa Neck: Supple, non-tender, no JVD, no lymphadenopathy Lungs: Non-labored respirations, symmetric chest rise, Clear to auscultate bilaterally Heart: Peripheral pulses intact bilaterally, Regular rate and Rhythm. Abdomen: Soft, non-tender, non-distended. Right flank pain. Musculoskeletal: Normal range of motion and strength Skin: Skin is warm, dry, no rashes or lesions. Psychiatric: Cooperative, appropriate mood and affect Neuro: Cranial nerves II-XII grossly intact. Strength 5/5 throughout. Sensations intact to light touch. Objective Labs 12/25/24 04:45 12/25/24 04:45 Labs: Laboratory Results - last 24 hr 12/24/24 05:01 WBC 10.3 RBC 3.16 L Hgb 7.7 L Hct 24.7 L MCV 78 L MCH 24.4 L MCHC 31.2 RDW Std Deviation 40.9 Plt Count 421 D Neut % (Auto) 72 Lymph % (Auto) 16 [place] % (Auto) 9 Eos % (Auto) 3 Baso % (Auto) 0 Neut # (Auto) 7.4 Lymph # (Auto) 1.6 [place] # (Auto) 0.9 H Eos # (Auto) 0.3 Baso # (Auto) 0.0 Immature Gran # (Auto) 0.08 H Absolute Nucleated RBC 0.00 Immature Gran % 1 H Nucleated RBC % 0 PT 11.0 INR 1.0 APTT 32.6 Sodium 136 Potassium 3.3 L Chloride 95 L Carbon Dioxide 30.5 Anion Gap 11 BUN 29 H Creatinine 3.8 H Estim Creat Clear Calc 19.1 L eGFR 15 L BUN/Creatinine Ratio 8 L Glucose 146 H Calculated Osmolality 280 Calcium 8.8 Corrected Calcium 8.9 Phosphorus 4.2 Magnesium 1.6 Total Bilirubin 0.3 AST < 8 ALT < 7 L Alkaline Phosphatase 93 Total Protein 6.9 Albumin 3.9 Globulin 3.0 Albumin/Globulin Ratio 1.3 Quality Measures Quality Measures VTE prophylaxis Assessment & Plan Assessment Current Active Medications: Generic Name Dose Route Start Last Admin Trade Name Freq PRN Reason Stop Dose Admin Acetaminophen 650 mg 12/19/24 18:23 12/22/24 14:18 Acetaminophen 325 Mg Tablet PO 01/09/25 23:47 650 mg Q6H PRN Administration PAIN 1-6 (mild-mod Buspirone HCl 10 mg 12/11/24 21:00 12/23/24 21:10 Buspirone Hcl 5 Mg Tablet PO 01/10/25 20:59 10 mg HS CLEMENTINE Administration Calcium Acetate 667 mg 12/13/24 12:00 12/24/24 07:47 Calcium Acetate 667 Mg Tablet PO 01/12/25 11:59 Not Given TIDWM CLEMENTINE Carvedilol 25 mg 12/20/24 17:30 12/24/24 07:50 Carvedilol 12.5 Mg Tablet PO 01/19/25 17:29 Not Given BIDWM CLEMENTINE Citric Acid/Sodium Citrate 30 ml 12/12/24 09:00 12/24/24 07:50 Citric Acid/Sodium Citr 15 Ml Udc (Bicitra) PO 01/11/25 08:59 Not Given BID CLEMENTINE Dextrose 25 ml 12/10/24 23:51 Dextrose 50%-Water Inj 50 Ml Syringe IV 01/09/25 23:50 Q15MIN PRN BG 50-70 responsive npo pt Dextrose 50 ml 12/10/24 23:51 12/13/24 11:33 Dextrose 50%-Water Inj 50 Ml Syringe IV 01/09/25 23:50 50 ml Q15MIN PRN Administration BG <50 OR BG <70 & pt unresponsive Famotidine 20 mg 12/19/24 09:00 12/24/24 07:50 Famotidine 20 Mg Tablet PO 01/18/25 08:59 Not Given QDAY CLEMENTINE Ferrous Sulfate 325 mg 12/21/24 09:00 12/23/24 09:09 Ferrous Sulf 325 Mg Tablet PO 01/20/25 08:59 325 mg QOD CLEMENTINE Administration Glucagon 1 mg 12/10/24 23:51 Glucagon Inj 1 Mg Vial IM Q15MIN PRN BG <70, and no IV access Heparin Sodium (Porcine) 3,800 unit 12/16/24 12:29 12/20/24 12:20 Heparin Sod Inj 1000 Unit/Ml Vial 10 Ml INDWELLCAT 12/30/24 12:28 3,800 unit X1 PRN Administration DIALYSIS Hydralazine HCl 10 mg 12/19/24 09:12 Hydralazine Inj 20 Mg/Ml Vial IVP 01/18/25 09:11 Q6HR PRN SBP > 180 Hydralazine HCl 50 mg 12/20/24 14:00 12/24/24 05:09 Hydralazine Hcl 25 Mg Tablet PO 01/19/25 13:59 Not Given TID CLEMENTINE Hydromorphone HCl 0.5 mg 12/19/24 18:22 12/24/24 08:22 Hydromorphone Inj 2 Mg/Ml Vial IVP 12/24/24 18:21 0.5 mg Q4HR PRN Administration PAIN SCALE 7-10 (Severe Hydroxyzine HCl 25 mg 12/13/24 21:00 12/23/24 21:10 Hydroxyzine Hcl 25 Mg Tablet PO 01/12/25 20:59 25 mg HS CLEMENTINE Administration Magnesium Sulfate 2 gm in 50 mls @ 25 mls/hr 12/24/24 08:26 12/24/24 09:37 Magnesium Sulfate Ivpb IV 12/24/24 10:25 25 mls/hr X1 ONE Administration Potassium Chloride 10 meq in 100 mls @ 100 mls/hr 12/24/24 08:29 12/24/24 09:37 Kcl Ivpb IV 12/24/24 12:28 80 mls/hr Q1H CLEMENTINE Administration Insulin Glargine 18 unit 12/15/24 21:00 12/23/24 21:12 Insulin Glargine (Lantus) 5 Unit/0.05 Ml (Per 5 Units) SC 01/14/25 20:59 18 unit HS CLEMENTINE Administration Insulin Human Lispro 0 unit 12/19/24 21:00 12/24/24 06:43 Insulin Lispro (Admelog) 1 Unit/0.01 Ml Unit SC 01/18/25 20:59 Not Given ACHS [facility] Protocol Nifedipine 60 mg 12/16/24 14:00 12/24/24 07:51 Nifedipine Xl 30 Mg Tabcr PO 01/15/25 13:59 Not Given QDAY CLEMENTINE Ondansetron HCl 4 mg 12/10/24 23:48 12/22/24 22:36 Ondansetron Inj 2 Mg/Ml Inj 2 Ml IVP 01/09/25 23:47 4 mg Q6H PRN Administration NAUSEA OR VOMITING Protocol Sennosides 1 tab 12/16/24 14:00 12/24/24 07:51 Senna Tablet PO 08/21/25 13:59 Not Given QDAY CLEMENTINE Protocol Sodium Chloride 3 ml 12/11/24 14:16 12/13/24 08:41 Sodium Chloride Rt Katherine 0.9% 3 Ml Nebu INH 01/10/25 14:15 3 ml PRN PRN Administration SOLN Plan 44-year-old female with past medical history of insulin-dependent type 2 diabetes, hypertension, GERD, history of valley fever presented to the ED on 12/10 with episode of left flank pain, nausea/vomiting and chills will be admitted for hypertensive emergency requiring close monitoring along with acute renal failure requiring urology and nephrology consultation and IV antibiotics for cystitis #Bladder mass -Cystoscopic examination by Urologist Dr. Friedman: found Bilateral hydronephrosis, large bladder mass occupying posterior bladder wall occupying the ureteral orifices. -After cystoscopy, patient noted that she had history of cervical cancer 3 years ago. -MRI abd/pelvis: Mild to moderate bilateral hydronephorsis, and dilated ureters extending to the bladder. -Per nephrology, the bladder mass is confined to the bladder. -Patient received bilatereal percutaneous nephrostomy tube placement on 12/19/2024 -12/24/2024 Creatinine is 3.8. Total Output is 4.3L. Right nephrostomy tube output is markedly decreased, with bloody urine noted in the drainage bag. Plan: -NPO on 12/24/2024 after midnight w/ repeat PT and PTT. -Planned for cystoscopy for biopsy of bladder mass on sunday12/24/2024, unclear whether she will receive bilateral urethral stents at this moment. -Nephrostogram ordered due to no output from right nephrostomy tube. #Acute renal failure 2/2 Urinary Retention 2/2 Obstructive Uropathy Patient experienced acute renal failure, likely secondary to obstructive uropathy given bladder mass noted on cystoscopy report. Previous UA noted to have hematuria. Improving renal function with nephrostomy tubes in place. Diagnostics: -Repeat UA 12/14 Urine protein +1 Urine blood +1 RBC 5 -12/20/2024 Patient produced 4.2 L of urine . -12/22/2024 Patient's output was 1155 mL. Hematuria was observed in the output from the right nephrostomy tube, while the left nephrostomy output remained clear and unremarkable. Cr level of 3.8 Plan: -Nephrology consulted, Dr. Pierre, ordered nuclear renal scan, IgA levels for IgA nephropathy, Hepatitis A/B titers, ANCA titers, pending results, appreciate recommendations -Avoid nephrotoxic agents -Renally dose medications -Replete electrolytes as needed and follow-up with morning labs -Currently, hemodialysis is on hold. #Acute urinary retention, improving #Bilateral hydronephrosis, likely secondary to obstruction #Cystitis #Complicated UTI, nephrolithiasis #Hematuria -On exam, patient no longer has left flank flank with CVA tenderness -CT abdomen pelvis shows a thick-walled cavitary lesion in the right middle lobe and a 22 mm pulmonary nodule in the anterior right lower lobe, numerous bilateral nonobstructing renal calculi, moderate bilateral hydronephrosis without calculi and cystitis -Based on CTAP presentation, urinary retention due to intake of meclizine was suspected as patient started to take it 1wk everyday prior to coming to the hospital. -Renal Ultrasound (12/11/2024): Moderate bilateral hydronephrosis -Renal Ultrasound (12/12/2024): Moderate bilateral hydronephrosis. Plan: -Advised to stop taking meclizine. -Finished receiving IV ceftriaxone 2g IV qd (12/11-12/16). Now changed to IV ceftriaxone 1g IV qd (12/17-12/23) #Hypertensive emergency, improving #Hypertension Patient has significant history of hypertension on home antihypertensives Presenting to the ED with acute renal failure and elevated systolic pressure in the 200s Plan: - continue Nifedipine 30mg PO qd - Coreg 25 mg PO BID - Hydralazine 50mg PO TID #Insulin-dependent type 2 diabetes Pertinent labs: 06/2024 A1C 11.1 12/11/24 A1C 8.0 Patient apparently takes 30 units of long-acting insulin twice a day Plan: Insulin Glargine 15 units at bedtime Sliding scale #History of Valley Fever -CTAP(03/21/2024):30 mm thick-walled cavitary lesion partially visualized right midlung,, 22 mm pulmonary nodule anterior right lower lobe -CXR(07/16/2024): Poorly defined nodular density 18 mm in the right lower lobe, -CXR (12/10/2024):Opacity right base which may represent a pulmonary mass, 19 mm -CTAP(12/10/2024): thick walled 25 mm cavitary lesion in the right middle lobe and 22mm pulmonary nodule anterior right lower lobe Plan: -Fairly stable right lung pulmonary nodule. -Will continue to monitor. #GERD Chronic medical problems: All pertinent to the following presentation Plan: -Continue Pantoprazole 40 mg PO QD Health Maintenance: Lines: PIV Diet: Renal and carb consistent low Bowel: Senna GI prophylaxis: Pantoprazole 40 mg PO QD DVT prophylaxis: SCD Dispo: Nephrology neurology recommendations, IV antibiotics for cystitis, pending cystoscopy and biopsy on Sun. Code: Full Assessment and plan discussed with my attending physician Dr. Benjamin and Dr. Kim (PGY-3) Dr. Silva (PGY-1)- Internal medicine resident Attending Provider Attestation/Addendum I attest that I was physically present for the evaluation, physical examination, lab and imaging review of the patient with the residents. I discussed the case with the residents and agree with the findings and plans of care as documented above. At bedside today, patient continues to complain of abdominal pain. Vitals are stable.. Lab results show hemoglobin of 7.7, slight decrease compared to yesterday. WBC count is improving. Kidney function remains stable, BUNs/creatinine of 29/3.8. Potassium is 3.3, repleted accordingly. Patient has good urinary output from her left nephrostomy tube but has very low output from the right side also has blood on the right nephrostomy bag. Discussed with radiology, recommended nephrostogram, order placed. Patient is planned for cystoscopy with urology today for bladder mass. Nephrology and urology following closely, appreciate recommendations. Patient completed her IV Rocephin for UTI. Sally Benjamin MD
--- NOTE | 2024-12-24 09:58 | ESPR_ITS ---
Documentation for date of: 12/24/24 Subjective Subjective Interval history: Ms. Cedillo is a 44-year-old female with past medical history of insulin- dependent type 2 diabetes, hypertension, GERD, history of valley fever untreated presented to the ED on 12/10 with episode of left flank pain, nausea/vomiting and chills. Patient states that the chills started roughly an hour ago but that she has been having progressively worsening left flank pain radiating to her back. Patient denies having any dysuria but does state that she has been having lilia hematuria for several days. Patient denies having any fevers but she does state that she has been having chills. Patient also complains of suprapubic pain and mentions that she feels pain near her ovaries. Patient has not seen PCP regarding the symptoms but she was seen several weeks ago for GERD like symptoms and was given medications. Patient otherwise denies having any concerning symptoms such as chest pain, dizziness, shortness of breath. In the ED, patient presented in hypertensive emergency with a blood pressure 187/83, other vitals wnl. Pertinent lab findings included WBC of 9, hemoglobin 7.9, potassium of 5.4, BUN of 31, creatinine 3.9, EGFR of 14, magnesium 1.6, troponin less than 0.02, BNP of 235, urinalysis shows hematuria and mild pyuria but no bacteria. Chest x-ray shows mild prominence of ventricles along with opacity in the right base concerning for pulmonary mass, EKG shows sinus rhythm without any concerning ST changes and CT abdomen pelvis shows a thick-walled cavitary lesion in the right middle lobe and a 22 mm pulmonary nodule in the anterior right lower lobe, numerous bilateral nonobstructing renal calculi, moderate bilateral hydronephrosis without calculi and cystitis. Patient will be admitted for hypertensive emergency requiring close monitoring along with acute renal failure requiring urology and nephrology consultation and IV antibiotics for cystitis Upon seeing the patient currently, she is on Mg Sulfate, Ceftriaxone, Carvedilol 6.25 mg, and maintenance IV fluids with a slightly improved blood pressure of 168/88 with the rest of vitals wnl. Patient states she is currently feeling much better now. States that she still has some nausea, L flank pain radiating to back and some dizziness when she stands up for too long. Patient states she has noticed blood in her urine today and ever since March. Patient endorses having bowel movements. Patient denies fever, headache, chest pain, shortness of breath, vomiting. 12/16/24: Patient was seen and examined at bedside with family members. Patient received dialysis catheter yesterday. Plan to get kidney biopsy today before starting dialysis. No new complaints. Denies chest pain, SOB, fever, flank pain or abdominal pain. Cr and BUN continue to stay elevated despite making good urine. 12/17/24 No acute events overnight. Patient seen and examined at bedside. Patient had renal biopsy and first HD done yesterday. Planning to receieve cystoscopy followed by urethral stents. No new complaints. Denies chest pain, SOB, fever, flank pain or abdominal pain. Mild improvement in Cr after first HD yesterday, will get HD again today. 12/18/24 No acute events overnight. Patient seen and examined at bedside getting dialysis. Patient is currently getting HD #3 today. Patient states she is having some non-radiating pain in the right abdomen. She also states she has not been able to make urine herself anymore. Denies chest pain, SOB, fever, flank pain. Cystoscopy showed bladder tumor; ordered MR Abd/Pelvis. Based on results, consult GI/OBGYN 12/19/24 Overnight, patient was reported by the night team to have had abdominal pain with some black stools, given Dilaudid. Vitals and labs reviewed. Patient seen and examined at bedside getting dialysis. Patient tolerated HD well yesterday. Patient states she is having an easier time making urine today. Patient currently denies chest pain, SOB, fever, abdominal pain, flank pain. Plan to get bilateral nephrostomy tubes placed today. 12/20/24 No acute events overnight. Vitals and labs reviewed. Patient seen and examined at bedside getting dialysis. Endorsed having nausea and vomited a little bit this morning during dialysis. Patient currently denies chest pain, SOB, fever, abdominal pain, flank pain. Bilateral nephrostomy tubes placed yesterday. Plan for Kidney biopsy Sunday 12/24. 12/21/24 Patient seen and examined at bedside with . No new complaints and is feeling well today. Denies N/V, chest pain, SOB or fever. K 3.2, Cr 3.1 and BUN 18. Autoimmune panel negative. Reassess labs tomorrow for possible HD. 12/22/24 No acute events overnight. Vitals and labs reviewed. Patient seen and examined at bedside. Patient denied any complaints/concerns. Patient currently denies chest pain, SOB, fever, abdominal pain, flank pain. Nephrostomy tubes outputting urine in one bag and small amount of blood in the other. Plan for Kidney biopsy Sunday 12/24. 12/23/24: No acute events overnight. Vitals and labs reviewed. Patient seen and examined at bedside. Patient denied any complaints/concerns. Patient currently denies chest pain, SOB, fever, abdominal pain, flank pain. Continue to hold dialysis today. Nephrostomy tubes continues to output good urine in one bag and small amount of blood in the other. Plan for Kidney biopsy Sunday 12/24. 12/24/2024: No acute events overnight. Patient seen and examined at bedside. Vitals and labs reviewed. This morning, patient was having lower abdominal pain. Patient continues to have minimal R nephrostomy tube output with good L nephrostomy utbe output. Patient denies fever, chest pain, shortness of breath. Plan for Kidney biopsy and cystoscopy today. Exam Vital Signs Temp Pulse Resp BP Pulse Ox O2 Del Method O2 Flow Rate 97.5 F 81 16 115/69 92 L Room Air 2 12/24/24 08:00 12/24/24 08:00 12/24/24 08:00 12/24/24 08:00 12/24/24 08:00 12/24/24 08:00 12/23/24 16:00 Narrative Exam GENERAL: a&o x3, no acute distress, sitting up eating in bed HEENT: NC/AT. Moist mucosa. PERRLA/EOMI. R IJ dialysis catheter CARDIO: Heart RRR, no murmurs appreciated PULM: Lungs CTA B/L, no resp distress ABD: soft, non-distended, non-tender SKIN: No edema bilateral lower extremities. No wounds/discoloration/rashes/amputations. +Pedal pulses present B/L. MSK: No joint swelling or pain/tenderness noted. Bilateral nephrostomy tubes draining (R with blood) EXT: upper and lower extremities atraumatic in appearance, able to move all 4 extremities. NEURO: no focal neurologic deficits noted Objective Labs 12/25/24 04:45 12/25/24 04:45 Labs: Laboratory Results - last 24 hr 12/24/24 05:01 WBC 10.3 RBC 3.16 L Hgb 7.7 L Hct 24.7 L MCV 78 L MCH 24.4 L MCHC 31.2 RDW Std Deviation 40.9 Plt Count 421 D Neut % (Auto) 72 Lymph % (Auto) 16 [place] % (Auto) 9 Eos % (Auto) 3 Baso % (Auto) 0 Neut # (Auto) 7.4 Lymph # (Auto) 1.6 [place] # (Auto) 0.9 H Eos # (Auto) 0.3 Baso # (Auto) 0.0 Immature Gran # (Auto) 0.08 H Absolute Nucleated RBC 0.00 Immature Gran % 1 H Nucleated RBC % 0 PT 11.0 INR 1.0 APTT 32.6 Sodium 136 Potassium 3.3 L Chloride 95 L Carbon Dioxide 30.5 Anion Gap 11 BUN 29 H Creatinine 3.8 H Estim Creat Clear Calc 19.1 L eGFR 15 L BUN/Creatinine Ratio 8 L Glucose 146 H Calculated Osmolality 280 Calcium 8.8 Corrected Calcium 8.9 Phosphorus 4.2 Magnesium 1.6 Total Bilirubin 0.3 AST < 8 ALT < 7 L Alkaline Phosphatase 93 Total Protein 6.9 Albumin 3.9 Globulin 3.0 Albumin/Globulin Ratio 1.3 Quality Measures Quality Measures VTE prophylaxis Assessment & Plan Assessment Current Active Medications: Generic Name Dose Route Start Last Admin Trade Name Freq PRN Reason Stop Dose Admin Acetaminophen 650 mg 12/19/24 18:23 12/22/24 14:18 Acetaminophen 325 Mg Tablet PO 01/09/25 23:47 650 mg Q6H PRN Administration PAIN 1-6 (mild-mod Buspirone HCl 10 mg 12/11/24 21:00 12/23/24 21:10 Buspirone Hcl 5 Mg Tablet PO 01/10/25 20:59 10 mg HS CLEMENTINE Administration Calcium Acetate 667 mg 12/13/24 12:00 12/24/24 07:47 Calcium Acetate 667 Mg Tablet PO 01/12/25 11:59 Not Given TIDWM CLEMENTINE Carvedilol 25 mg 12/20/24 17:30 12/24/24 07:50 Carvedilol 12.5 Mg Tablet PO 01/19/25 17:29 Not Given BIDWM CLEMENTINE Citric Acid/Sodium Citrate 30 ml 12/12/24 09:00 12/24/24 07:50 Citric Acid/Sodium Citr 15 Ml Udc (Bicitra) PO 01/11/25 08:59 Not Given BID CLEMENTINE Dextrose 25 ml 12/10/24 23:51 Dextrose 50%-Water Inj 50 Ml Syringe IV 01/09/25 23:50 Q15MIN PRN BG 50-70 responsive npo pt Dextrose 50 ml 12/10/24 23:51 12/13/24 11:33 Dextrose 50%-Water Inj 50 Ml Syringe IV 01/09/25 23:50 50 ml Q15MIN PRN Administration BG <50 OR BG <70 & pt unresponsive Famotidine 20 mg 12/19/24 09:00 12/24/24 07:50 Famotidine 20 Mg Tablet PO 01/18/25 08:59 Not Given QDAY CLEMENTINE Ferrous Sulfate 325 mg 12/21/24 09:00 12/23/24 09:09 Ferrous Sulf 325 Mg Tablet PO 01/20/25 08:59 325 mg QOD CLEMENTINE Administration Glucagon 1 mg 12/10/24 23:51 Glucagon Inj 1 Mg Vial IM Q15MIN PRN BG <70, and no IV access Heparin Sodium (Porcine) 3,800 unit 12/16/24 12:29 12/20/24 12:20 Heparin Sod Inj 1000 Unit/Ml Vial 10 Ml INDWELLCAT 12/30/24 12:28 3,800 unit X1 PRN Administration DIALYSIS Hydralazine HCl 10 mg 12/19/24 09:12 Hydralazine Inj 20 Mg/Ml Vial IVP 01/18/25 09:11 Q6HR PRN SBP > 180 Hydralazine HCl 50 mg 12/20/24 14:00 12/24/24 05:09 Hydralazine Hcl 25 Mg Tablet PO 01/19/25 13:59 Not Given TID CLEMENTINE Hydromorphone HCl 0.5 mg 12/19/24 18:22 12/24/24 08:22 Hydromorphone Inj 2 Mg/Ml Vial IVP 12/24/24 18:21 0.5 mg Q4HR PRN Administration PAIN SCALE 7-10 (Severe Hydroxyzine HCl 25 mg 12/13/24 21:00 12/23/24 21:10 Hydroxyzine Hcl 25 Mg Tablet PO 01/12/25 20:59 25 mg HS CLEMENTINE Administration Magnesium Sulfate 2 gm in 50 mls @ 25 mls/hr 12/24/24 08:26 12/24/24 09:37 Magnesium Sulfate Ivpb IV 12/24/24 10:25 25 mls/hr X1 ONE Administration Potassium Chloride 10 meq in 100 mls @ 100 mls/hr 12/24/24 08:29 12/24/24 09:37 Kcl Ivpb IV 12/24/24 12:28 80 mls/hr Q1H CLEMENTINE Administration Insulin Glargine 18 unit 12/15/24 21:00 12/23/24 21:12 Insulin Glargine (Lantus) 5 Unit/0.05 Ml (Per 5 Units) SC 01/14/25 20:59 18 unit HS CLEMENTINE Administration Insulin Human Lispro 0 unit 12/19/24 21:00 12/24/24 06:43 Insulin Lispro (Admelog) 1 Unit/0.01 Ml Unit SC 01/18/25 20:59 Not Given ACHS CLEMENTINE Protocol Nifedipine 60 mg 12/16/24 14:00 12/24/24 07:51 Nifedipine Xl 30 Mg Tabcr PO 01/15/25 13:59 Not Given QDAY CLEMENTINE Ondansetron HCl 4 mg 12/10/24 23:48 12/22/24 22:36 Ondansetron Inj 2 Mg/Ml Inj 2 Ml IVP 01/09/25 23:47 4 mg Q6H PRN Administration NAUSEA OR VOMITING Protocol Sennosides 1 tab 12/16/24 14:00 12/24/24 07:51 Senna Tablet PO 01/15/25 13:59 Not Given QDAY [facility] Protocol Sodium Chloride 3 ml 12/11/24 14:16 12/13/24 08:41 Sodium Chloride Rt Katherine 0.9% 3 Ml Nebu INH 01/10/25 14:15 3 ml PRN PRN Administration SOLN Plan Kacy Cedillo is a 44-year-old female with past medical history of insulin-dependent type 2 diabetes, hypertension, GERD, history of valley fever untreated presented to the ED on 12/10 with episode of left flank pain, nausea/vomiting and chills will be admitted for hypertensive emergency requiring close monitoring along with acute renal failure requiring urology and nephrology consultation and IV antibiotics for cystitis #Acute kidney injury Likely multifactorial; suspecting pre-renal ischemic ATN vs obstructive etiology vs pre-renal from hypertensive emergency. Patient found to have pyelonephritis and seems to have vesicular ureteral reflux. CT showed numerous b/l nonobstructing renal caliculi, mod b/l hydronephrosis wo ureteral calculi, cystitis pattern Cr continues to stay elevated despite making good urine; patient clinically looks relatively well otherwise, Patient endorses having 3/4 UTI's per year. Patient received a kidney biopsy which showed ATN/AIN and underlying diabetes/hypertensive nephrosclerosis Bilateral percutaneous nephrostomy tube placed Ulytes wnl. DEMARCUS, ANCA, C3/C4, IgA negative, no indication of autoimmune disease. Plan: -Plan for Bladder cystoscopy & biopsy today. -Recommend R nephrostomy tube replacement -No HD today, plan for outpatient HD, per urology. -Intermittent urethral catheterization (1-2x per day) if pt unable to make urine. -Urology: Cystoscopy showed bladder tumor; ordered MR Abd/Pelvis. Based on results, consult GI/OBGYN. -Needs outpatient tertiary care center evaluation for large bladder tumor. -Strict I/O's -Avoid nephrotoxic agents -Renally dose medications -Replete electrolytes as needed and follow-up with morning labs #Acute urinary retention #Bilateral hydronephrosis #Cystitis #Complicated UTI, nephrolithiasis #Hematuria #Hypertensive emergency, improving #Hypertension #Insulin-dependent type 2 diabetes #GERD -Managed per primary team Thank you for allowing us to take part in the care of Ms. Cedillo Plan of care discussed with attending, Dr. Miriam Martinez MD PGY-1 Attending Provider Attestation/Addendum Patient seen and examined with resident physician Dr. Martinez. Note reviewed, agree with findings and recommendations. 12/20/2024 Patient with worsening azotemia.Biopsy showed ATN/AIN with underlying diabetes/hypertensive nephrosclerosis. Patient agreed for biopsy. Did receive 3 sessions of dialysis and is feeling better. PermCath placed by IR. Patient seen by urology for persistent hydronephrosis. Cystoscopy showed large bladder tumor blocking the ureteral orifices. Renal scan showed no function consistent with ATN. Patient had bilateral percutaneous nephrostomy tube placement today. MRI abdomen pelvis did not show any malignancy. She will need outpatient tertiary care center evaluation for a large bladder tumor per urology. Dr. Vidal stated that he will do cystoscopy and biopsy next Sunday. Pending biopsy might need transfer to tertiary care center.Also recommended intermittent catheterization for possible neurogenic bladder. Plan of care discussed with patient and family at bedside on daily basis. 12/21/2024 patient resting comfortably. With bilateral nephrostomy tubes she has good urinary output. Hopefully will be renal recovery. Dr. Vidal planning to do cystoscopy with biopsy on Sunday. Spoke to primary team. 12/22/2024 patient will be going for a nephrostomy tube placement today. Hold off on dialysis. 12/23/2024 patient currently seen in medical floor. Bilateral nephrostomy tube has good drainage. Hold dialysis today. Hope there will be renal recovery. Tomorrow she is going to get cystoscopy with biopsy. Spoke to Dr. Vidal. N.p.o. after midnight 12/24/2024 patient complaining of significant abdominal discomfort. Dilaudid was given. Recommended In-N-Out catheter by the nurse. at bedside. Patient seems to be very emotional. She will be going for cystoscopy and bladder biopsy with possible anterograde stents today. Spoke to Dr. Vidal. Urine output more than 2 L. Hold dialysis today. Hope there will be renal recovery. Last dialysis 4 days ago.
--- NOTE | 2024-12-24 12:15 | PC.SS ---
Follow up note: Biopsy today. Pt will return home upon dc.
[2024-12-24 13:35] LABS: Hematocrit 25.0 % (36.0-46.0)
[2024-12-24 13:43] LABS: Hemoglobin 7.8 g/dL (12.0-16.0)
--- NOTE | 2024-12-24 14:12 | XR_ITS ---
Examination: Retrograde pyelogram left with without KUB Fluoroscopy AP abdomen single view History bladder cancer with bilateral hydronephrosis, intraoperative pyelogram TECHNIQUE AND FINDINGS: AP abdomen film spot fluoroscopic Contrast in dilated left ureter Fluoroscopy 309 seconds radiation dose 1.0764 milligray IMPRESSION: Retrograde pyelogram as above
--- NOTE | 2024-12-24 15:44 | SUR.PHASEI ---
pt received from OR in recovery bay 1. pt obtunded, breathing unlabored on oxymask 8l, oral airway in place. v/s stable. cheng catheter and bilateral nephrostomy tubes in place. report received from Concha Tillman and Gabriel CHAPA.
--- NOTE | 2024-12-24 16:06 | PD.SUROPNT ---
Procedure Cystoscopic examination Surgeon Aarti Friedman MD Surgical Staff Operation Date: 12/24/24 15:30 Case Staff Anesthesiologist: Jaun Antonio Nathan TABLE SETTER: Gabriel Martini
--- NOTE | 2024-12-24 16:07 | ESOP_ITS ---
Date of Procedure 12/24/24 Pre Op Diagnosis Acute renal failure, bilateral hydroureteronephrosis, placement of bilateral percutaneous nephrostomies, bladder mass, Post Op Diagnosis Same Procedure Cystoscopic examination left nephrostogram, transurethral resection of bladder mass Limited for tissue diagnosis Findings Bilateral ureteral obstruction large bladder mass Procedure Description Indication for procedure this is a 44-year-old female she has acute renal failure she has bilateral hydroureteronephrosis had placement of bilateral per cutaneous nephrostomy. She had a cystoscopic examination was found to have a large mass in the bladder and the ureteral orifice were not visualized. She was recommended mini TUR of the bladder mass for tissue diagnosis procedure and complications were discussed with the patient in great detail informed consent is obtained at the same time I have explained to her I will do a nephrostogram and if I am able to locate the ureteral orifice I may attempt to pass bilateral ureteral stents patient consented for it Patient was brought to the operating room in a satisfactory condition after appropriate premedication was put on the operating table in a supine position she was appropriately identified by surgeon and operating room staff site scope and indications of the procedure were reconfirmed with the patient. Next 21 cystoscope was introduced into the bladder per urethra examination of bladder revealed large mass occupying both ureteral orifice and posterior bladder wall video was obtained, next I performed nephrostogram left side there was hydroureteronephrosis with what looks like a strictured deal left distal ureter and no contrast was seen coming out of the bladder. Next a cystoscope was removed and 25 Stewart resectoscope was introduced I resected bladder mass as far as safely possible for tissue diagnosis fulguration was done no active bleeding was seen instrument was withdrawn gently #16 Oliva catheter was inserted balloon was inflated with 10 cc of water patient and next after having tolerated the procedure well was sent to recovery room in a satisfactory condition to be t ransferred to the floor Pathology / specimen Other (Bladder tissue) Estimated Blood Loss 5 Condition Stable Disposition PACU Surgeon Aarti Friedman MD Surgical Staff Operation Date: 12/24/24 15:30 Case Staff Anesthesiologist: Juan Antonio Nathan HAIRSPRING STAKER: Gabriel Martini
--- NOTE | 2024-12-24 16:28 | SUR.PHASEI ---
pt asleep but responds to voice, breathing unlabored on 2l nc. v/s stable. pt has cheng cath and bilateral nephrostomy tubes in place. report called to Natalie TABARES. pt will be transferred to room at this time.
[2024-12-24] MEDS: CALCIUM ACETATE 667 MG TABLET PO (17:01)
--- NOTE | 2024-12-24 18:44 | PC.NURSE ---
Dr. Godinez aware PRN Dilaudid order auto dC'd. agrees to resume order
[2024-12-24] MEDS: INSULIN LISPRO (AdmeLOG) 1 UNIT/0.01 ML UNIT SC (20:50)
[2024-12-24] MEDS: INSULIN GLARGINE (Lantus) 5 UNIT/0.05 ML (PER 5 UNITS) 18 UNIT SC (20:50)
[2024-12-24] MEDS: CITRIC ACID/SODIUM CITR 15 ML UDC (BICITRA) 30 ML PO (20:56)
[2024-12-25] VITALS (12 sets, daily range): BP systolic 117–141; BP diastolic 59–84; PULSE 61–77; RESP 16–18; TEMP 36.1–36.6; O2SAT 91–99
[2024-12-25] MEDS: HYDROmorphone INJ 2 MG/ML VIAL 0.5 MG IVP ×4 (00:17→20:59)
[2024-12-25 05:28] LABS: Basophils # (Auto) 0.0 Thou/mm3 (0.0-0.2); Basophils % (Auto) 0 % (0-2.5); Eosinophils # (Auto) 0.0 Thou/mm3 (0.0-0.5); Eosinophils % (Auto) 0 % (0-10); Hematocrit 25.2 % (36.0-46.0); Immature Granulocytes Auto 0.06 Thou/mm3 (0.00-0.00); Lymphocytes # (Auto) 1.1 Thou/mm3 (1.0-4.8); Lymphocytes % (Auto) 13 % (10-50); Mean Corpuscular HGB Conc 32.1 g/dl (31.0-37.0); Mean Corpuscular Hemoglobin 25.0 pg (25.0-35.0); Mean Corpuscular Volume 78 fL (80-100); Monocytes # (Auto) 0.3 Thou/mm3 (0.0-0.8); Monocytes % (Auto) 4 % (0-12); Neutrophils # (Auto) 6.9 Thou/mm3 (1.8-7.7); Neutrophils % (Auto) 83 % (37-80); Nucleated Red Blood Cell # 0.00 Thou/mm3 (0.00-0.00); Nucleated Red Blood Cell % 0 /100 WBC (0); Platelet Count 454 Thou/mm3 (140-440); RDW Standard Deviation 40.4 fL (36.4-46.3); Red Blood Count 3.24 Miln/mm3 (4.00-5.20); White Blood Count 8.3 Thou/mm3 (3.6-11.0)
[2024-12-25 05:56] LABS: Hemoglobin 8.1 g/dL (12.0-16.0)
[2024-12-25 06:00] LABS: Alanine Aminotransferase < 7 U/L (10-49); Albumin, Serum 4.0 gm/dL (3.5-5.0); Albumin/Globulin Ratio 1.3 (1.2-2.2); Alkaline Phosphatase 93 U/L (46-116); Anion Gap 7 (7-16); Aspartate Amino Transferase < 10 U/L (0-34); BUN/Creatinine Ratio 11 Ratio (12-20); Bilirubin,Total 0.2 mg/dL (0.3-1.2); Blood Urea Nitrogen 37 mg/dL (9-23); Calcium 8.8 mg/dL (8.3-10.6); Calcium (Corrected) 8.8 mg/dL (8.5-10.1); Carbon Dioxide 28.1 mMol/L (20.0-31.0); Chloride 98 mMol/L (98-107); Creatinine (Component) 3.5 mg/dL (0.6-1.3); Estimated Creatinine Clearance 20.7 mL/min (>60); Globulin 3.2 gm/dL (2.3-3.5); Glucose 208 mg/dL (74-106); Magnesium 2.1 mg/dL (1.6-2.6); Osmolality,Calculated 281 (275-295); Phosphorous 4.7 mg/dL (2.4-5.1); Potassium 4.3 mMol/L (3.4-5.1); Sodium 133 mMol/L (136-145); Total Protein 7.2 gm/dL (5.7-8.2); eGFR 16 See Note
[2024-12-25] MEDS: INSULIN LISPRO (AdmeLOG) 1 UNIT/0.01 ML UNIT SC ×4 (07:39→20:35)
[2024-12-25] MEDS: CALCIUM ACETATE 667 MG TABLET PO ×3 (07:40→16:58)
[2024-12-25] MEDS: FAMOTIDINE 20 MG TABLET PO (09:09)
[2024-12-25] MEDS: ferumoxytoL (ESRD) 510 MG in SODIUM CHLORIDE 0.9% 100 ML 234 MG IV (09:09)
[2024-12-25] MEDS: EPOETIN ALFA-EPBX INJ 10,000 UNIT/ML VIAL (ESRD) 10000 UNIT SC (09:09)
[2024-12-25] MEDS: NIFEdipine XL 30 MG TABCR 60 MG PO (09:10)
[2024-12-25] MEDS: FERROUS SULF 325 MG TABLET PO (09:10)
--- NOTE | 2024-12-25 09:26 | ESPR_ITS ---
Documentation for date of: 12/25/24 Senior resident attestation: Patient evaluated and examined at the bedside, plan of care discussed with rest of the team including my attending physician, except as noted. #Acute kidney injury?DDx obstructive nephropathy vs ATN. Urology is consulted, patient is status post cystoscopy, status post bilateral nephrostomy tubes, right nephrostomy tube stopped draining for the past 2 days, ordered IR nephrostogram. Currently on hemodialysis. Path report pending final results, was sent to [facility]. Initial workup for autoimmune glomerulonephritis has been negative so far. #Bladder mass?concern for bladder cancer? Urologist Dr. Friedman had another cystoscopy procedure, biopsy of bladder mass was done, bladder mass obstructing the orifice of ureters, no stents placed. Pending further recommendations from urology, initial recommendations were to get abdominal pelvic MRI to rule out possible metastatic spread of pelvic neoplasm to bladder, but negative imaging for neoplasm so far. Initial recommendations were to transfer patient out for [facility]. As primary team were coordinating care between nephrology and urology. #Hematuria #History of valley fever #History of diabetes mellitus #Anemia?likely iron deficiency anemia. From chronic hematuria. Quresh PGY3 Subjective Subjective Interval history: No Overnight events. Labs reviewed and patient examined at the bedside. Yesterday, patient received bladder biopsy and the limited bladder resection and the left nephrostogram showing left ureter stricture. Today patient's total output is 3.8 L however right side of the nephrostomy tube showed minimal output. Patient noted that her right flank pain has decreased. Patient did not get hemodialysis today. Pending right nephrostogram. Denies chest pain, palpation, SOB, abdominal pain, N/V, fevers or chills. Exam Vital Signs Temp Pulse Resp BP Pulse Ox O2 Del Method O2 Flow Rate 97.0 F 70 16 137/84 H 95 Nasal Cannula 2 12/25/24 04:00 12/25/24 09:10 12/25/24 04:00 12/25/24 09:10 12/25/24 04:00 12/25/24 04:00 12/24/24 18:00 Narrative Exam General: No acute distress, well nourished Eye: PERRL, EOMI, normal conjunctiva, no scleral icterus HENT: Normocephalic, atraumatic, hearing intact to conversation at normal volume, moist oral mucosa Neck: Supple, non-tender, no JVD, no lymphadenopathy Lungs: Non-labored respirations, symmetric chest rise, Clear to auscultate bilaterally Heart: Peripheral pulses intact bilaterally, Regular rate and Rhythm. Abdomen: Soft, non-tender, non-distended. Musculoskeletal: Normal range of motion and strength Skin: Skin is warm, dry, no rashes or lesions. Psychiatric: Cooperative, appropriate mood and affect Neuro: Cranial nerves II-XII grossly intact. Strength 5/5 throughout. Sensations intact to light touch. Objective Labs 12/25/24 04:45 12/25/24 04:45 Labs: Laboratory Results - last 24 hr 12/24/24 12/25/24 13:17 04:45 WBC 8.3 RBC 3.24 L Hgb 7.8 L 8.1 L Hct 25.0 L 25.2 L MCV 78 L MCH 25.0 MCHC 32.1 RDW Std Deviation 40.4 Plt Count 454 H D Neut % (Auto) 83 H Lymph % (Auto) 13 Ward % (Auto) 4 Eos % (Auto) 0 Baso % (Auto) 0 Neut # (Auto) 6.9 Lymph # (Auto) 1.1 Ward # (Auto) 0.3 Eos # (Auto) 0.0 Baso # (Auto) 0.0 Immature Gran # (Auto) 0.06 H Absolute Nucleated RBC 0.00 Immature Gran % 1 H Nucleated RBC % 0 Sodium 133 L Potassium 4.3 D Chloride 98 Carbon Dioxide 28.1 Anion Gap 7 BUN 37 H Creatinine 3.5 H Estim Creat Clear Calc 20.7 L eGFR 16 L BUN/Creatinine Ratio 11 L Glucose 208 H D Calculated Osmolality 281 Calcium 8.8 Corrected Calcium 8.8 Phosphorus 4.7 Magnesium 2.1 Total Bilirubin 0.2 L AST < 10 ALT < 7 L Alkaline Phosphatase 93 Total Protein 7.2 Albumin 4.0 Globulin 3.2 Albumin/Globulin Ratio 1.3 Quality Measures Quality Measures VTE prophylaxis Assessment & Plan Assessment Current Active Medications: Generic Name Dose Route Start Last Admin Trade Name Freq PRN Reason Stop Dose Admin Acetaminophen 650 mg 12/19/24 18:23 12/22/24 14:18 Acetaminophen 325 Mg Tablet PO 01/09/25 23:47 650 mg Q6H PRN Administration PAIN 1-6 (mild-mod Buspirone HCl 10 mg 12/11/24 21:00 12/24/24 20:55 Buspirone Hcl 5 Mg Tablet PO 01/10/25 20:59 10 mg HS CLEMENTINE Administration Calcium Acetate 667 mg 12/13/24 12:00 12/25/24 07:40 Calcium Acetate 667 Mg Tablet PO 01/12/25 11:59 667 mg TIDWM CLEMENTINE Administration Carvedilol 25 mg 12/20/24 17:30 12/25/24 07:39 Carvedilol 12.5 Mg Tablet PO 01/19/25 17:29 25 mg BIDWM CLEMENTINE Administration Dextrose 25 ml 12/10/24 23:51 Dextrose 50%-Water Inj 50 Ml Syringe IV 01/09/25 23:50 Q15MIN PRN BG 50-70 responsive npo pt Dextrose 50 ml 12/10/24 23:51 12/13/24 11:33 Dextrose 50%-Water Inj 50 Ml Syringe IV 01/09/25 23:50 50 ml Q15MIN PRN Administration BG <50 OR BG <70 & pt unresponsive Famotidine 20 mg 12/19/24 09:00 12/25/24 09:09 Famotidine 20 Mg Tablet PO 01/18/25 08:59 20 mg QDAY CLEMENTINE Administration Ferrous Sulfate 325 mg 12/21/24 09:00 12/25/24 09:10 Ferrous Sulf 325 Mg Tablet PO 01/20/25 08:59 325 mg QOD CLEMENTINE Administration Glucagon 1 mg 12/10/24 23:51 Glucagon Inj 1 Mg Vial IM Q15MIN PRN BG <70, and no IV access Heparin Sodium (Porcine) 3,800 unit 12/16/24 12:29 12/20/24 12:20 Heparin Sod Inj 1000 Unit/Ml Vial 10 Ml INDWELLCAT 12/30/24 12:28 3,800 unit X1 PRN Administration DIALYSIS Hydralazine HCl 10 mg 12/19/24 09:12 Hydralazine Inj 20 Mg/Ml Vial IVP 01/18/25 09:11 Q6HR PRN SBP > 180 Hydralazine HCl 50 mg 12/20/24 14:00 12/25/24 05:46 Hydralazine Hcl 25 Mg Tablet PO 01/19/25 13:59 50 mg TID CLEMENTINE Administration Hydromorphone HCl 0.5 mg 12/24/24 18:44 12/25/24 00:17 Hydromorphone Inj 2 Mg/Ml Vial IVP 12/29/24 18:43 0.5 mg Q4HR PRN Administration Pain 7-10 or breakthrough Hydroxyzine HCl 25 mg 12/13/24 21:00 12/24/24 20:56 Hydroxyzine Hcl 25 Mg Tablet PO 01/12/25 20:59 25 mg HS CLEMENTINE Administration Insulin Glargine 18 unit 12/15/24 21:00 12/24/24 20:50 Insulin Glargine (Lantus) 5 Unit/0.05 Ml (Per 5 Units) SC 01/14/25 20:59 18 unit HS CLEMENTINE Administration Insulin Human Lispro 0 unit 12/19/24 21:00 12/25/24 07:39 Insulin Lispro (Admelog) 1 Unit/0.01 Ml Unit SC 01/18/25 20:59 1 unit ACHS CLEMENTINE Administration Protocol Nifedipine 60 mg 12/16/24 14:00 12/25/24 09:10 Nifedipine Xl 30 Mg Tabcr PO 01/15/25 13:59 60 mg QDAY CLEMENTINE Administration Ondansetron HCl 4 mg 12/10/24 23:48 12/22/24 22:36 Ondansetron Inj 2 Mg/Ml Inj 2 Ml IVP 01/09/25 23:47 4 mg Q6H PRN Administration NAUSEA OR VOMITING Protocol Sennosides 1 tab 12/16/24 14:00 12/25/24 09:09 Senna Tablet PO 01/15/25 13:59 1 tab QDAY CLEMENTINE Administration Protocol Sodium Chloride 3 ml 12/11/24 14:16 12/13/24 08:41 Sodium Chloride Rt Katherine 0.9% 3 Ml Nebu INH 01/10/25 14:15 3 ml PRN PRN Administration SOLN Plan 44-year-old female with past medical history of insulin-dependent type 2 diabetes, hypertension, GERD, history of valley fever presented to the ED on 12/10 with episode of left flank pain, nausea/vomiting and chills will be admitted for hypertensive emergency requiring close monitoring along with acute renal failure requiring urology and nephrology consultation and IV antibiotics for cystitis #Bladder mass -Cystoscopic examination by Urologist Dr. Friedman: found Bilateral hydronephrosis, large bladder mass occupying posterior bladder wall occupying the ureteral orifices. -After cystoscopy, patient noted that she had history of cervical cancer 3 years ago. -MRI abd/pelvis: Mild to moderate bilateral hydronephorsis, and dilated ureters extending to the bladder. -Per nephrology, the bladder mass is confined to the bladder. -Patient received bilatereal percutaneous nephrostomy tube placement on 12/19/2024 -12/24/2024 Creatinine is 3.8. Total Output is 4.3L. Right nephrostomy tube output is markedly decreased, with bloody urine noted in the drainage bag. Plan: -NPO on 12/24/2024 after midnight w/ repeat PT and PTT. -Received cystoscopy for biopsy of bladder mass, the limited bladder resection and the left nephrostogram showing left ureter stricture. on sunday12/24/2024, -Nephrostogram ordered due to no output from right nephrostomy tube. #Acute renal failure 2/2 Urinary Retention 2/2 Obstructive Uropathy Patient experienced acute renal failure, likely secondary to obstructive uropathy given bladder mass noted on cystoscopy report. Previous UA noted to have hematuria. Improving renal function with nephrostomy tubes in place. Diagnostics: -Repeat UA 12/14 Urine protein +1 Urine blood +1 RBC 5 -12/20/2024 Patient produced 4.2 L of urine . -12/22/2024 Patient's output was 1155 mL. Hematuria was observed in the output from the right nephrostomy tube, while the left nephrostomy output remained clear and unremarkable. Cr level of 3.8 Plan: -Nephrology consulted, Dr. Pierre, ordered nuclear renal scan, IgA levels for IgA nephropathy, Hepatitis A/B titers, ANCA titers, pending results, appreciate recommendations -Avoid nephrotoxic agents -Renally dose medications -Replete electrolytes as needed and follow-up with morning labs -Currently, hemodialysis is on hold. #Acute urinary retention, improving #Bilateral hydronephrosis, likely secondary to obstruction #Cystitis #Complicated UTI, nephrolithiasis #Hematuria -On exam, patient no longer has left flank flank with CVA tenderness -CT abdomen pelvis shows a thick-walled cavitary lesion in the right middle lobe and a 22 mm pulmonary nodule in the anterior right lower lobe, numerous bilateral nonobstructing renal calculi, moderate bilateral hydronephrosis without calculi and cystitis -Based on CTAP presentation, urinary retention due to intake of meclizine was suspected as patient started to take it 1wk everyday prior to coming to the hospital. -Renal Ultrasound (12/11/2024): Moderate bilateral hydronephrosis -Renal Ultrasound (12/12/2024): Moderate bilateral hydronephrosis. Plan: -Advised to stop taking meclizine. -Finished receiving IV ceftriaxone 2g IV qd (12/11-12/16). Now changed to IV ceftriaxone 1g IV qd (12/17-12/23) #Hypertensive emergency, improving #Hypertension Patient has significant history of hypertension on home antihypertensives Presenting to the ED with acute renal failure and elevated systolic pressure in the 200s Plan: - continue Nifedipine 30mg PO qd - Coreg 25 mg PO BID - Hydralazine 50mg PO TID #Insulin-dependent type 2 diabetes Pertinent labs: 06/2024 A1C 11.1 12/11/24 A1C 8.0 Patient apparently takes 30 units of long-acting insulin twice a day Plan: Insulin Glargine 15 units at bedtime Sliding scale #History of Valley Fever -CTAP(03/21/2024):30 mm thick-walled cavitary lesion partially visualized right midlung,, 22 mm pulmonary nodule anterior right lower lobe -CXR(07/16/2024): Poorly defined nodular density 18 mm in the right lower lobe, -CXR (12/10/2024):Opacity right base which may represent a pulmonary mass, 19 mm -CTAP(12/10/2024): thick walled 25 mm cavitary lesion in the right middle lobe and 22mm pulmonary nodule anterior right lower lobe Plan: -Fairly stable right lung pulmonary nodule. -Will continue to monitor. #GERD Chronic medical problems: All pertinent to the following presentation Plan: -Continue Pantoprazole 40 mg PO QD Health Maintenance: Lines: PIV Diet: Renal and carb consistent low Bowel: Senna GI prophylaxis: Pantoprazole 40 mg PO QD DVT prophylaxis: SCD Dispo: Nephrology neurology recommendations, IV antibiotics for cystitis, pending cystoscopy and biopsy on Sun. Code: Full Assessment and plan discussed with my attending physician Dr. Benjamin and Dr. Kim (PGY-3) Dr. Silva (PGY-1)- Internal medicine resident Attending Provider Attestation/Addendum I attest that I was physically present for the evaluation, physical examination, lab and imaging review of the patient with the residents. I discussed the case with the residents and agree with the findings and plans of care as documented above. At bedside today, patient states her pain is better compared to yesterday. Denies any new complaints. Her right nephrostomy bag still does not have any output. Left nephrostomy also noted to have leakage at the site of insertion, discussed with radiology, patient is planned for IR nephrostogram. She underwent cystoscopic examination along with left nephrostogram yesterday biopsy was taken from the bladder mass, was found to have hydroureteronephrosis on the left side was underwent Oliva catheter placement. Vitals are stable this morning except for mild hypertension, hemoglobin stable at 8.1, BUN/creatinine at 37/3.5 slightly improved compared to yesterday. Plan to discuss with urology after nephrostogram is complete. , Sally Benjamin MD
--- NOTE | 2024-12-25 09:42 | ESPR_ITS ---
Documentation for date of: 12/25/24 Subjective Subjective Interval history: Ms. Cedillo is a 44-year-old female with past medical history of insulin- dependent type 2 diabetes, hypertension, GERD, history of valley fever untreated presented to the ED on 12/10 with episode of left flank pain, nausea/vomiting and chills. Patient states that the chills started roughly an hour ago but that she has been having progressively worsening left flank pain radiating to her back. Patient denies having any dysuria but does state that she has been having lilia hematuria for several days. Patient denies having any fevers but she does state that she has been having chills. Patient also complains of suprapubic pain and mentions that she feels pain near her ovaries. Patient has not seen PCP regarding the symptoms but she was seen several weeks ago for GERD like symptoms and was given medications. Patient otherwise denies having any concerning symptoms such as chest pain, dizziness, shortness of breath. In the ED, patient presented in hypertensive emergency with a blood pressure 187/83, other vitals wnl. Pertinent lab findings included WBC of 9, hemoglobin 7.9, potassium of 5.4, BUN of 31, creatinine 3.9, EGFR of 14, magnesium 1.6, troponin less than 0.02, BNP of 235, urinalysis shows hematuria and mild pyuria but no bacteria. Chest x-ray shows mild prominence of ventricles along with opacity in the right base concerning for pulmonary mass, EKG shows sinus rhythm without any concerning ST changes and CT abdomen pelvis shows a thick-walled cavitary lesion in the right middle lobe and a 22 mm pulmonary nodule in the anterior right lower lobe, numerous bilateral nonobstructing renal calculi, moderate bilateral hydronephrosis without calculi and cystitis. Patient will be admitted for hypertensive emergency requiring close monitoring along with acute renal failure requiring urology and nephrology consultation and IV antibiotics for cystitis Upon seeing the patient currently, she is on Mg Sulfate, Ceftriaxone, Carvedilol 6.25 mg, and maintenance IV fluids with a slightly improved blood pressure of 168/88 with the rest of vitals wnl. Patient states she is currently feeling much better now. States that she still has some nausea, L flank pain radiating to back and some dizziness when she stands up for too long. Patient states she has noticed blood in her urine today and ever since March. Patient endorses having bowel movements. Patient denies fever, headache, chest pain, shortness of breath, vomiting. 12/16/24: Patient was seen and examined at bedside with family members. Patient received dialysis catheter yesterday. Plan to get kidney biopsy today before starting dialysis. No new complaints. Denies chest pain, SOB, fever, flank pain or abdominal pain. Cr and BUN continue to stay elevated despite making good urine. 12/17/24 No acute events overnight. Patient seen and examined at bedside. Patient had renal biopsy and first HD done yesterday. Planning to receieve cystoscopy followed by urethral stents. No new complaints. Denies chest pain, SOB, fever, flank pain or abdominal pain. Mild improvement in Cr after first HD yesterday, will get HD again today. 12/18/24 No acute events overnight. Patient seen and examined at bedside getting dialysis. Patient is currently getting HD #3 today. Patient states she is having some non-radiating pain in the right abdomen. She also states she has not been able to make urine herself anymore. Denies chest pain, SOB, fever, flank pain. Cystoscopy showed bladder tumor; ordered MR Abd/Pelvis. Based on results, consult GI/OBGYN 12/19/24 Overnight, patient was reported by the night team to have had abdominal pain with some black stools, given Dilaudid. Vitals and labs reviewed. Patient seen and examined at bedside getting dialysis. Patient tolerated HD well yesterday. Patient states she is having an easier time making urine today. Patient currently denies chest pain, SOB, fever, abdominal pain, flank pain. Plan to get bilateral nephrostomy tubes placed today. 12/20/24 No acute events overnight. Vitals and labs reviewed. Patient seen and examined at bedside getting dialysis. Endorsed having nausea and vomited a little bit this morning during dialysis. Patient currently denies chest pain, SOB, fever, abdominal pain, flank pain. Bilateral nephrostomy tubes placed yesterday. Plan for Kidney biopsy Sunday 12/24. 12/21/24 Patient seen and examined at bedside with . No new complaints and is feeling well today. Denies N/V, chest pain, SOB or fever. K 3.2, Cr 3.1 and BUN 18. Autoimmune panel negative. Reassess labs tomorrow for possible HD. 12/22/24 No acute events overnight. Vitals and labs reviewed. Patient seen and examined at bedside. Patient denied any complaints/concerns. Patient currently denies chest pain, SOB, fever, abdominal pain, flank pain. Nephrostomy tubes outputting urine in one bag and small amount of blood in the other. Plan for Kidney biopsy Sunday 12/24. 12/23/24: No acute events overnight. Vitals and labs reviewed. Patient seen and examined at bedside. Patient denied any complaints/concerns. Patient currently denies chest pain, SOB, fever, abdominal pain, flank pain. Continue to hold dialysis today. Nephrostomy tubes continues to output good urine in one bag and small amount of blood in the other. Plan for Kidney biopsy Sunday 12/24. 12/24/2024: No acute events overnight. Patient seen and examined at bedside. Vitals and labs reviewed. This morning, patient was having lower abdominal pain. Patient continues to have minimal R nephrostomy tube output with good L nephrostomy utbe output. Patient denies fever, chest pain, shortness of breath. Plan for bladder biopsy and cystoscopy today. 12/25/2024: No acute events overnight. Patient seen and examined at bedside. 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 Vitals and labs reviewed. Patient this morning states she is doing well, no new complaints/concerns. Patient continues to have minimal R nephrostomy tube output with good L nephrostomy utbe output. Will hold HD today. Patient denies fever, chest pain, shortness of breath. Exam Vital Signs Temp Pulse Resp BP Pulse Ox O2 Del Method O2 Flow Rate 97.0 F 70 16 137/84 H 95 Nasal Cannula 2 12/25/24 04:00 12/25/24 09:10 12/25/24 04:00 12/25/24 09:10 12/25/24 04:00 12/25/24 04:00 12/24/24 18:00 Narrative Exam GENERAL: a&o x3, no acute distress, sitting up eating in bed HEENT: NC/AT. Moist mucosa. PERRLA/EOMI. R IJ dialysis catheter CARDIO: Heart RRR, no murmurs appreciated PULM: Lungs CTA B/L, no resp distress ABD: soft, non-distended, non-tender SKIN: No edema bilateral lower extremities. No wounds/discoloration/rashes/amputations. +Pedal pulses present B/L. MSK: No joint swelling or pain/tenderness noted. Bilateral nephrostomy tubes draining (R with blood) EXT: upper and lower extremities atraumatic in appearance, able to move all 4 extremities. NEURO: no focal neurologic deficits noted Objective Labs 12/25/24 04:45 12/25/24 04:45 Labs: Laboratory Results - last 24 hr 12/24/24 12/25/24 13:17 04:45 WBC 8.3 RBC 3.24 L Hgb 7.8 L 8.1 L Hct 25.0 L 25.2 L MCV 78 L MCH 25.0 MCHC 32.1 RDW Std Deviation 40.4 Plt Count 454 H D Neut % (Auto) 83 H Lymph % (Auto) 13 [place] % (Auto) 4 Eos % (Auto) 0 Baso % (Auto) 0 Neut # (Auto) 6.9 Lymph # (Auto) 1.1 [place] # (Auto) 0.3 Eos # (Auto) 0.0 Baso # (Auto) 0.0 Immature Gran # (Auto) 0.06 H Absolute Nucleated RBC 0.00 Immature Gran % 1 H Nucleated RBC % 0 Sodium 133 L Potassium 4.3 D Chloride 98 Carbon Dioxide 28.1 Anion Gap 7 BUN 37 H Creatinine 3.5 H Estim Creat Clear Calc 20.7 L eGFR 16 L BUN/Creatinine Ratio 11 L Glucose 208 H D Calculated Osmolality 281 Calcium 8.8 Corrected Calcium 8.8 Phosphorus 4.7 Magnesium 2.1 Total Bilirubin 0.2 L AST < 10 ALT < 7 L Alkaline Phosphatase 93 Total Protein 7.2 Albumin 4.0 Globulin 3.2 Albumin/Globulin Ratio 1.3 Quality Measures Quality Measures VTE prophylaxis Assessment & Plan Assessment Current Active Medications: Generic Name Dose Route Start Last Admin Trade Name Freq PRN Reason Stop Dose Admin Acetaminophen 650 mg 12/19/24 18:23 12/22/24 14:18 Acetaminophen 325 Mg Tablet PO 01/09/25 23:47 650 mg Q6H PRN Administration PAIN 1-6 (mild-mod Buspirone HCl 10 mg 12/11/24 21:00 12/24/24 20:55 Buspirone Hcl 5 Mg Tablet PO 01/10/25 20:59 10 mg HS CLEMENTINE Administration Calcium Acetate 667 mg 12/13/24 12:00 12/25/24 07:40 Calcium Acetate 667 Mg Tablet PO 01/12/25 11:59 667 mg TIDWM CLEMENTINE Administration Carvedilol 25 mg 12/20/24 17:30 12/25/24 07:39 Carvedilol 12.5 Mg Tablet PO 01/19/25 17:29 25 mg BIDWM CLEMENTINE Administration Dextrose 25 ml 12/10/24 23:51 Dextrose 50%-Water Inj 50 Ml Syringe IV 01/09/25 23:50 Q15MIN PRN BG 50-70 responsive npo pt Dextrose 50 ml 12/10/24 23:51 12/13/24 11:33 Dextrose 50%-Water Inj 50 Ml Syringe IV 01/09/25 23:50 50 ml Q15MIN PRN Administration BG <50 OR BG <70 & pt unresponsive Famotidine 20 mg 12/19/24 09:00 12/25/24 09:09 Famotidine 20 Mg Tablet PO 01/18/25 08:59 20 mg QDAY CLEMENTINE Administration Ferrous Sulfate 325 mg 12/21/24 09:00 12/25/24 09:10 Ferrous Sulf 325 Mg Tablet PO 01/20/25 08:59 325 mg QOD CLEMENTINE Administration Glucagon 1 mg 12/10/24 23:51 Glucagon Inj 1 Mg Vial IM Q15MIN PRN BG <70, and no IV access Heparin Sodium (Porcine) 3,800 unit 12/16/24 12:29 12/20/24 12:20 Heparin Sod Inj 1000 Unit/Ml Vial 10 Ml INDWELLCAT 12/30/24 12:28 3,800 unit X1 PRN Administration DIALYSIS Hydralazine HCl 10 mg 12/19/24 09:12 Hydralazine Inj 20 Mg/Ml Vial IVP 01/18/25 09:11 Q6HR PRN SBP > 180 Hydralazine HCl 50 mg 12/20/24 14:00 12/25/24 05:46 Hydralazine Hcl 25 Mg Tablet PO 01/19/25 13:59 50 mg TID CLEMENTINE Administration Hydromorphone HCl 0.5 mg 12/24/24 18:44 12/25/24 00:17 Hydromorphone Inj 2 Mg/Ml Vial IVP 12/29/24 18:43 0.5 mg Q4HR PRN Administration Pain 7-10 or breakthrough Hydroxyzine HCl 25 mg 12/13/24 21:00 12/24/24 20:56 Hydroxyzine Hcl 25 Mg Tablet PO 01/12/25 20:59 25 mg HS CLEMENTINE Administration Insulin Glargine 18 unit 12/15/24 21:00 12/24/24 20:50 Insulin Glargine (Lantus) 5 Unit/0.05 Ml (Per 5 Units) SC 01/14/25 20:59 18 unit HS CLEMENTINE Administration Insulin Human Lispro 0 unit 12/19/24 21:00 12/25/24 07:39 Insulin Lispro (Admelog) 1 Unit/0.01 Ml Unit SC 01/18/25 20:59 1 unit ACHS CLEMENTINE Administration Protocol Nifedipine 60 mg 12/16/24 14:00 12/25/24 09:10 Nifedipine Xl 30 Mg Tabcr PO 01/15/25 13:59 60 mg QDAY CLEMENTINE Administration Ondansetron HCl 4 mg 12/10/24 23:48 12/22/24 22:36 Ondansetron Inj 2 Mg/Ml Inj 2 Ml IVP 01/09/25 23:47 4 mg Q6H PRN Administration NAUSEA OR VOMITING Protocol Sennosides 1 tab 12/16/24 14:00 12/25/24 09:09 Senna Tablet PO 01/15/25 13:59 1 tab QDAY CLEMENTINE Administration Protocol Sodium Chloride 3 ml 12/11/24 14:16 12/13/24 08:41 Sodium Chloride Rt Katherine 0.9% 3 Ml Nebu INH 01/10/25 14:15 3 ml PRN PRN Administration SOLN Plan Kacy Cedillo is a 44-year-old female with past medical history of insulin-dependent type 2 diabetes, hypertension, GERD, history of valley fever untreated presented to the ED on 12/10 with episode of left flank pain, nausea/vomiting and chills will be admitted for hypertensive emergency requiring close monitoring along with acute renal failure requiring urology and nephrology consultation and IV antibiotics for cystitis #Acute kidney injury Likely multifactorial; suspecting pre-renal ischemic ATN vs obstructive etiology vs pre-renal from hypertensive emergency. Patient found to have pyelonephritis and seems to have vesicular ureteral reflux. CT showed numerous b/l nonobstructing renal caliculi, mod b/l hydronephrosis wo ureteral calculi, cystitis pattern Cr continues to stay elevated despite making good urine; patient clinically looks relatively well otherwise, Patient endorses having 3/4 UTI's per year. Patient received a kidney biopsy which showed ATN/AIN and underlying diabetes/hypertensive nephrosclerosis Bilateral percutaneous nephrostomy tube placed Ulytes wnl. DEMARCUS, ANCA, C3/C4, IgA negative, no indication of autoimmune disease. 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 Plan: -No HD today, plan for outpatient HD, per urology. -Intermittent urethral catheterization (1-2x per day) if pt unable to make urine. -Urology: Cystoscopy showed bladder tumor; ordered MR Abd/Pelvis. Based on results, consult GI/OBGYN. -Needs outpatient tertiary care center evaluation for large bladder tumor. -Strict I/O's -Avoid nephrotoxic agents -Renally dose medications -Replete electrolytes as needed and follow-up with morning labs #Acute urinary retention #Bilateral hydronephrosis #Cystitis #Complicated UTI, nephrolithiasis #Hematuria #Hypertensive emergency, improving #Hypertension #Insulin-dependent type 2 diabetes #GERD -Managed per primary team Thank you for allowing us to take part in the care of Ms. Cedillo Plan of care discussed with attending, Dr. Miriam Martinez MD PGY-1 Attending Provider Attestation/Addendum Patient seen and examined with resident physician Dr. Martinez. Note reviewed, agree with findings and recommendations. 12/20/2024 Patient with worsening azotemia.Biopsy showed ATN/AIN with underlying diabetes/hypertensive nephrosclerosis. Patient agreed for biopsy. Did receive 3 sessions of dialysis and is feeling better. PermCath placed by IR. Patient seen by urology for persistent hydronephrosis. Cystoscopy showed large bladder tumor blocking the ureteral orifices. Renal scan showed no function consistent with ATN. Patient had bilateral percutaneous nephrostomy tube placement today. MRI abdomen pelvis did not show any malignancy. She will need outpatient tertiary care center evaluation for a large bladder tumor per urology. Dr. Vidal stated that he will do cystoscopy and biopsy next Sunday. Pending biopsy might need transfer to tertiary care center.Also recommended intermittent catheterization for possible neurogenic bladder. Plan of care discussed with patient and family at bedside on daily basis. 12/21/2024 patient resting comfortably. With bilateral nephrostomy tubes she has good urinary output. Hopefully will be renal recovery. Dr. Vidal planning to do cystoscopy with biopsy on Sunday. Spoke to primary team. 12/22/2024 patient will be going for a nephrostomy tube placement today. Hold off on dialysis. 12/23/2024 patient currently seen in medical floor. Bilateral nephrostomy tube has good drainage. Hold dialysis today. Hope there will be renal recovery. Tomorrow she is going to get cystoscopy with biopsy. Spoke to Dr. Vidal. N.p.o. after midnight 12/24/2024 patient complaining of significant abdominal discomfort. Dilaudid was given. Recommended In-N-Out catheter by the nurse. at bedside. Patient seems to be very emotional. She will be going for cystoscopy and bladder biopsy with possible anterograde stents today. Spoke to Dr. Vidal. Urine output more than 2 L. Hold dialysis today. Hope there will be renal recovery. Last dialysis 4 days ago. 12/25/2024 patient currently seen in medical floor. Still having abdominal discomfort and pain from the nephrostomy tube sites. Dilaudid was given. The right nephrostomy tube is not draining any urine. Nephrogram ordered by primary team. Patient made more than 2 L of urine. Will hold dialysis. Plan of care discussed with daughter, at bedside
[2024-12-25] MEDS: INSULIN GLARGINE (Lantus) 5 UNIT/0.05 ML (PER 5 UNITS) 18 UNIT SC (20:34)
[2024-12-26] VITALS (12 sets, daily range): BP systolic 99–140; BP diastolic 50–70; PULSE 64–79; RESP 14–19; TEMP 36.2–36.8; O2SAT 90–99
[2024-12-26] MEDS: HYDROmorphone INJ 2 MG/ML VIAL 0.5 MG IVP ×6 (00:44→22:36)
[2024-12-26 06:19] LABS: Basophils # (Auto) 0.1 Thou/mm3 (0.0-0.2); Basophils % (Auto) 1 % (0-2.5); Eosinophils # (Auto) 0.2 Thou/mm3 (0.0-0.5); Eosinophils % (Auto) 2 % (0-10); Hematocrit 22.3 % (36.0-46.0); Immature Granulocytes Auto 0.13 Thou/mm3 (0.00-0.00); Lymphocytes # (Auto) 3.2 Thou/mm3 (1.0-4.8); Lymphocytes % (Auto) 30 % (10-50); Mean Corpuscular HGB Conc 31.4 g/dl (31.0-37.0); Mean Corpuscular Hemoglobin 25.0 pg (25.0-35.0); Mean Corpuscular Volume 80 fL (80-100); Monocytes # (Auto) 1.0 Thou/mm3 (0.0-0.8); Monocytes % (Auto) 9 % (0-12); Neutrophils # (Auto) 6.1 Thou/mm3 (1.8-7.7); Neutrophils % (Auto) 58 % (37-80); Nucleated Red Blood Cell # 0.00 Thou/mm3 (0.00-0.00); Nucleated Red Blood Cell % 0 /100 WBC (0); Platelet Count 485 Thou/mm3 (140-440); RDW Standard Deviation 42.0 fL (36.4-46.3); Red Blood Count 2.80 Miln/mm3 (4.00-5.20); White Blood Count 10.6 Thou/mm3 (3.6-11.0)
[2024-12-26 06:45] LABS: Hemoglobin 7.0 g/dL (12.0-16.0)
[2024-12-26 07:04] LABS: Alanine Aminotransferase < 7 U/L (10-49); Albumin, Serum 3.7 gm/dL (3.5-5.0); Albumin/Globulin Ratio 1.3 (1.2-2.2); Alkaline Phosphatase 81 U/L (46-116); Anion Gap 11 (7-16); Aspartate Amino Transferase < 8 U/L (0-34); BUN/Creatinine Ratio 12 Ratio (12-20); Bilirubin,Total 0.2 mg/dL (0.3-1.2); Blood Urea Nitrogen 42 mg/dL (9-23); Calcium 8.9 mg/dL (8.3-10.6); Calcium (Corrected) 9.1 mg/dL (8.5-10.1); Carbon Dioxide 28.6 mMol/L (20.0-31.0); Chloride 97 mMol/L (98-107); Creatinine (Component) 3.5 mg/dL (0.6-1.3); Estimated Creatinine Clearance 20.7 mL/min (>60); Globulin 2.9 gm/dL (2.3-3.5); Glucose 171 mg/dL (74-106); Magnesium 2.3 mg/dL (1.6-2.6); Osmolality,Calculated 288 (275-295); Phosphorous 3.6 mg/dL (2.4-5.1); Potassium 3.9 mMol/L (3.4-5.1); Sodium 137 mMol/L (136-145); Total Protein 6.6 gm/dL (5.7-8.2); eGFR 16 See Note
[2024-12-26] MEDS: NIFEdipine XL 30 MG TABCR 60 MG PO (08:26)
[2024-12-26] MEDS: FAMOTIDINE 20 MG TABLET PO (08:28)
[2024-12-26] MEDS: CALCIUM ACETATE 667 MG TABLET PO ×3 (08:28→17:23)
--- NOTE | 2024-12-26 09:00 | XR_ITS ---
Examination: Right nephrostogram Fluoroscopy AP abdomen single view Date and time: December 26, 2024 0954 hours INDICATIONS: Right nephrostogram is not draining TECHNIQUE AND FINDINGS: Informed consent provided. Timeout performed Hand injection 8 cc Cystografin with abdomen film obtained Fluoroscopy 0.5 minute radiation dose 27.28 milligray Free flow of contrast through the nephrostomy tube into the renal collecting system Satisfactory position of the nephrostomy drainage catheter There is internal debris within the dilated left renal collecting system IMPRESSION: Satisfactory position right nephrostomy drainage tube with free flow of contrast through the nephrostomy tube into the renal collecting system There is internal debris within the right renal collecting system Replacing the right nephrostomy tube will not result in improvement in drainage as the renal collecting system contains extensive debris
--- NOTE | 2024-12-26 09:00 | XR_ITS ---
Examination: Left nephrostogram. AP abdomen single view Fluoroscopy Date and time: December 27, 2011 2025, 0919 hours INDICATIONS: History bilateral hydronephrosis, bladder cancer obstruction, checking position of nephrostomy tubes TECHNIQUE AND FINDINGS: Informed consent provided. Timeout performed. Hand injection 5 cc Cystografin Fluoroscopy 0.5 minute radiation dose 27.28 milligray, 1 spot fluoroscopic film of the abdomen Nephrostomy tube in satisfactory position Free flow contrast into the nephrostomy tube IMPRESSION: Satisfactory position nephrostomy drainage tube
--- NOTE | 2024-12-26 09:45 | ESPR_ITS ---
Documentation for date of: 12/26/24 Subjective Subjective Interval history: Interval history: Ms. Cedillo is a 44-year-old female with past medical history of insulin- dependent type 2 diabetes, hypertension, GERD, history of valley fever untreated presented to the ED on 12/10 with episode of left flank pain, nausea/vomiting and chills. Patient states that the chills started roughly an hour ago but that she has been having progressively worsening left flank pain radiating to her back. Patient denies having any dysuria but does state that she has been having lilia hematuria for several days. Patient denies having any fevers but she does state that she has been having chills. Patient also complains of suprapubic pain and mentions that she feels pain near her ovaries. Patient has not seen PCP regarding the symptoms but she was seen several weeks ago for GERD like symptoms and was given medications. Patient otherwise denies having any concerning symptoms such as chest pain, dizziness, shortness of breath. In the ED, patient presented in hypertensive emergency with a blood pressure 187/83, other vitals wnl. Pertinent lab findings included WBC of 9, hemoglobin 7.9, potassium of 5.4, BUN of 31, creatinine 3.9, EGFR of 14, magnesium 1.6, troponin less than 0.02, BNP of 235, urinalysis shows hematuria and mild pyuria but no bacteria. Chest x-ray shows mild prominence of ventricles along with opacity in the right base concerning for pulmonary mass, EKG shows sinus rhythm without any concerning ST changes and CT abdomen pelvis shows a thick-walled cavitary lesion in the right middle lobe and a 22 mm pulmonary nodule in the anterior right lower lobe, numerous bilateral nonobstructing renal calculi, moderate bilateral hydronephrosis without calculi and cystitis. Patient will be admitted for hypertensive emergency requiring close monitoring along with acute renal failure requiring urology and nephrology consultation and IV antibiotics for cystitis Upon seeing the patient currently, she is on Mg Sulfate, Ceftriaxone, Carvedilol 6.25 mg, and maintenance IV fluids with a slightly improved blood pressure of 168/88 with the rest of vitals wnl. Patient states she is currently feeling much better now. States that she still has some nausea, L flank pain radiating to back and some dizziness when she stands up for too long. Patient states she has noticed blood in her urine today and ever since March. Patient endorses having bowel movements. Patient denies fever, headache, chest pain, shortness of breath, vomiting. 12/24/2024: No acute events overnight. Patient seen and examined at bedside. Vitals and labs reviewed. This morning, patient was having lower abdominal pain. Patient continues to have minimal R nephrostomy tube output with good L nephrostomy utbe output. Patient denies fever, chest pain, shortness of breath. Plan for bladder biopsy and cystoscopy today. 12/25/2024: No acute events overnight. Patient seen and examined at bedside. 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 Vitals and labs reviewed. Patient this morning states she is doing well, no new complaints/concerns. Patient continues to have minimal R nephrostomy tube output with good L nephrostomy utbe output. Will hold HD today. Patient denies fever, chest pain, shortness of breath. 12/26/2024: No acute events overnight, patient seen and examined at bedside. pt reports R lower abdominal cramping pain, pt states she has leaking from L nephrostomy tube, pending IR nephrostomy tube assesment. Pt continues to have minimal R nephrostomy tube output (5-10 cc) and good L nephrostomy tube output(1450 cc) , will HOLD HD today. Pt denies fever, chest pain, shortness of breath. Biopsy of Bladder mass is benign. per conversation with urologist and Dr. Pineda, plan is for anterograde stents through the nephrostomy tubes and through the bladder mass. Exam Vital Signs Temp Pulse Resp BP Pulse Ox O2 Del Method O2 Flow Rate 97.3 F 66 14 122/66 99 Nasal Cannula 2 12/26/24 07:59 12/26/24 08:28 12/26/24 07:59 12/26/24 08:28 12/26/24 07:59 12/26/24 07:59 12/26/24 07:59 Narrative Exam GENERAL: a&o x3, no acute distress,laying down in bed. HEENT: NC/AT. Moist mucosa. PERRLA/EOMI. R IJ dialysis catheter CARDIO: Heart RRR, no murmurs appreciated PULM: Lungs CTA B/L, no resp distress ABD: soft, non-distended, non-tender SKIN: No edema bilateral lower extremities. No wounds/discoloration/rashes/amputations. +Pedal pulses present B/L. MSK: No joint swelling or pain/tenderness noted. Bilateral nephrostomy tubes draining gauze padding around L drain, not wet during examination. EXT: upper and lower extremities atraumatic in appearance, able to move all 4 extremities. NEURO: no focal neurologic deficits noted Objective Labs 12/26/24 13:32 12/26/24 05:11 Labs: Laboratory Results - last 24 hr 12/26/24 05:11 WBC 10.6 RBC 2.80 L Hgb 7.0 L Hct 22.3 L MCV 80 MCH 25.0 MCHC 31.4 RDW Std Deviation 42.0 Plt Count 485 H D Neut % (Auto) 58 Lymph % (Auto) 30 Kaufman % (Auto) 9 Eos % (Auto) 2 Baso % (Auto) 1 Neut # (Auto) 6.1 Lymph # (Auto) 3.2 Kaufman # (Auto) 1.0 H Eos # (Auto) 0.2 Baso # (Auto) 0.1 Immature Gran # (Auto) 0.13 H Absolute Nucleated RBC 0.00 Immature Gran % 1 H Nucleated RBC % 0 Sodium 137 Potassium 3.9 Chloride 97 L Carbon Dioxide 28.6 Anion Gap 11 BUN 42 H Creatinine 3.5 H Estim Creat Clear Calc 20.7 L eGFR 16 L BUN/Creatinine Ratio 12 Glucose 171 H Calculated Osmolality 288 Calcium 8.9 Corrected Calcium 9.1 Phosphorus 3.6 Magnesium 2.3 Total Bilirubin 0.2 L AST < 8 ALT < 7 L Alkaline Phosphatase 81 Total Protein 6.6 Albumin 3.7 Globulin 2.9 Albumin/Globulin Ratio 1.3 Quality Measures Quality Measures VTE prophylaxis Assessment & Plan Assessment Current Active Medications: Generic Name Dose Route Start Last Admin Trade Name Freq PRN Reason Stop Dose Admin Acetaminophen 650 mg 12/19/24 18:23 12/22/24 14:18 Acetaminophen 325 Mg Tablet PO 01/09/25 23:47 650 mg Q6H PRN Administration PAIN 1-6 (mild-mod Buspirone HCl 10 mg 12/11/24 21:00 12/25/24 20:40 Buspirone Hcl 5 Mg Tablet PO 01/10/25 20:59 10 mg HS CLEMENTINE Administration Calcium Acetate 667 mg 12/13/24 12:00 12/26/24 08:28 Calcium Acetate 667 Mg Tablet PO 01/12/25 11:59 667 mg TIDWM CLEMENTINE Administration Carvedilol 25 mg 12/20/24 17:30 12/26/24 08:28 Carvedilol 12.5 Mg Tablet PO 01/19/25 17:29 25 mg BIDWM CLEMENTINE Administration Dextrose 25 ml 12/10/24 23:51 Dextrose 50%-Water Inj 50 Ml Syringe IV 01/09/25 23:50 Q15MIN PRN BG 50-70 responsive npo pt Dextrose 50 ml 12/10/24 23:51 12/13/24 11:33 Dextrose 50%-Water Inj 50 Ml Syringe IV 01/09/25 23:50 50 ml Q15MIN PRN Administration BG <50 OR BG <70 & pt unresponsive Famotidine 20 mg 12/19/24 09:00 12/26/24 08:28 Famotidine 20 Mg Tablet PO 01/18/25 08:59 20 mg QDAY CLEMENTINE Administration Ferrous Sulfate 325 mg 12/21/24 09:00 12/25/24 09:10 Ferrous Sulf 325 Mg Tablet PO 01/20/25 08:59 325 mg QOD CLEMENTINE Administration Glucagon 1 mg 12/10/24 23:51 Glucagon Inj 1 Mg Vial IM Q15MIN PRN BG <70, and no IV access Heparin Sodium (Porcine) 3,800 unit 12/16/24 12:29 12/20/24 12:20 Heparin Sod Inj 1000 Unit/Ml Vial 10 Ml INDWELLCAT 12/30/24 12:28 3,800 unit X1 PRN Administration DIALYSIS Hydralazine HCl 10 mg 12/19/24 09:12 Hydralazine Inj 20 Mg/Ml Vial IVP 01/18/25 09:11 Q6HR PRN SBP > 180 Hydralazine HCl 50 mg 12/20/24 14:00 12/26/24 05:37 Hydralazine Hcl 25 Mg Tablet PO 01/19/25 13:59 Not Given TID CLEMENTINE Hydromorphone HCl 0.5 mg 12/24/24 18:44 12/26/24 08:29 Hydromorphone Inj 2 Mg/Ml Vial IVP 12/29/24 18:43 0.5 mg Q4HR PRN Administration Pain 7-10 or breakthrough Hydroxyzine HCl 25 mg 12/13/24 21:00 12/25/24 20:40 Hydroxyzine Hcl 25 Mg Tablet PO 01/12/25 20:59 25 mg HS CLEMENTINE Administration Insulin Glargine 18 unit 12/15/24 21:00 12/25/24 20:34 Insulin Glargine (Lantus) 5 Unit/0.05 Ml (Per 5 Units) SC 01/14/25 20:59 18 unit HS CLEMENTINE Administration Insulin Human Lispro 0 unit 12/19/24 21:00 12/26/24 07:25 Insulin Lispro (Admelog) 1 Unit/0.01 Ml Unit SC 01/18/25 20:59 Not Given ACHS CLEMENTINE Protocol Nifedipine 60 mg 12/16/24 14:00 12/26/24 08:26 Nifedipine Xl 30 Mg Tabcr PO 01/15/25 13:59 60 mg QDAY CLEMENTINE Administration Ondansetron HCl 4 mg 12/10/24 23:48 12/22/24 22:36 Ondansetron Inj 2 Mg/Ml Inj 2 Ml IVP 01/09/25 23:47 4 mg Q6H PRN Administration NAUSEA OR VOMITING Protocol Sennosides 1 tab 12/16/24 14:00 12/26/24 08:28 Senna Tablet PO 01/15/25 13:59 1 tab QDAY CLEMENTINE Administration Protocol Sodium Chloride 3 ml 12/11/24 14:16 12/13/24 08:41 Sodium Chloride Rt Katherine 0.9% 3 Ml Nebu INH 01/10/25 14:15 3 ml PRN PRN Administration SOLN Plan Kacy Cedillo is a 44-year-old female with past medical history of insulin-dependent type 2 diabetes, hypertension, GERD, history of valley fever untreated presented to the ED on 12/10 with episode of left flank pain, nausea/vomiting and chills will be admitted for hypertensive emergency requiring close monitoring along with acute renal failure requiring urology and nephrology consultation and IV antibiotics for cystitis #Acute kidney injury Likely multifactorial; suspecting pre-renal ischemic ATN vs obstructive etiology vs pre-renal from hypertensive emergency. Patient found to have pyelonephritis and seems to have vesicular ureteral reflux. CT showed numerous b/l nonobstructing renal caliculi, mod b/l hydronephrosis wo ureteral calculi, cystitis pattern Cr continues to stay elevated despite making good urine; patient clinically looks relatively well otherwise, Patient endorses having 3/4 UTI's per year. Patient received a kidney biopsy which showed ATN/AIN and underlying diabetes/hypertensive nephrosclerosis Bilateral percutaneous nephrostomy tube placed Ulytes wnl. DEMARCUS, ANCA, C3/C4, IgA negative, no indication of autoimmune disease. 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 12/26: IR nephrostomy tubes (L leaking, R minimal output): R tube in the correct position, internal debris, Dr. Carpio does not recommend exchanging the tube given extensive debris. L tube in the correct postion. Plan: -No HD today, plan for outpatient HD -Intermittent urethral catheterization (1-2x per day) if pt unable to make urine. -Urology: Cystoscopy showed bladder tumor; -Needs outpatient tertiary care center evaluation for large bladder tumor, B ladder mass is benign, will need antegrade stents -Strict I/O's -Avoid nephrotoxic agents -Renally dose medications -Replete electrolytes as needed and follow-up with morning labs #Acute urinary retention #Bilateral hydronephrosis #Cystitis #Complicated UTI, nephrolithiasis #Hematuria #Hypertensive emergency, improving #Hypertension #Insulin-dependent type 2 diabetes #GERD -Managed per primary team Thank you for allowing us to take part in the care of Ms. Cedillo Plan discussed with nephrology attending Dr. Miriam Kirk MD Internal Medicine PGY-1 Attending Provider Attestation/Addendum Patient seen and examined with resident physician Dr. Kirk. Note reviewed, agree with findings and recommendations. 12/24/2024 patient complaining of significant abdominal discomfort. Dilaudid was given. Recommended In-N-Out catheter by the nurse. at bedside. Patient seems to be very emotional. She will be going for cystoscopy and bladder biopsy with possible anterograde stents today. Spoke to Dr. Vidal. Urine output more than 2 L. Hold dialysis today. Hope there will be renal recovery. Last dialysis 4 days ago. 12/25/2024 patient currently seen in medical floor. Still having abdominal discomfort and pain from the nephrostomy tube sites. Dilaudid was given. The right nephrostomy tube is not draining any urine. Nephrogram ordered by primary team. Patient made more than 2 L of urine. Will hold dialysis. Plan of care discussed with daughter, at bedside 12/26/2024 patient currently seen in medical floor. Seen by Dr. Cole for a right nonfunctioning nephrostomy tube which showed significant debris and was flushed. Currently seems to be making urine. Complaining of pain at the site of nephrostomy and is receiving Dilaudid. Urine output seems to be acceptable. Creatinine stable. Will hold dialysis today. 2 daughters at bedside. Spoke to Dr. Vidal-requested higher level of care for anterograde stent placement. Also needs a bladder tumor removal. Bladder biopsy came back negative for cancer. Creatinine 3.5. Pending labs will plan for dialysis tomorrow.
--- NOTE | 2024-12-26 11:43 | PC.SS ---
Follow up note: Possibly waiting for Nephrostogram. Pt will return home upon dc.
[2024-12-26] MEDS: ACETAMINOPHEN 325 MG TABLET 650 MG PO (12:08)
[2024-12-26] MEDS: INSULIN LISPRO (AdmeLOG) 1 UNIT/0.01 ML UNIT SC ×3 (12:24→21:24)
[2024-12-26 13:49] LABS: Hematocrit 24.3 % (36.0-46.0)
[2024-12-26 13:55] LABS: Hemoglobin 7.6 g/dL (12.0-16.0)
--- NOTE | 2024-12-26 15:46 | PD.RESPRO ---
Documentation for date of: 12/26/24 Subjective Subjective Interval history: No Overnight events. Patient seen and examined at bedside started on Severy for moderate pain, Dilaudid every 4 hours for severe pain. Patient underwent nephrostogram earlier this morning today, has satisfactory drainage from bilateral nephrostomy tubes. Right nephrostomy tube nephrostogram patient has shows that patient has extensive debris's in the renal collecting system. Repeated H&H, stable. Case was discussed with urologist who recommended anterograde stent placed by interventional radiologist, was discussed with interventional radiology, IR interventional radiologist informed that he is unable to perform the procedure, per interventional radiology there is extensive debris's, patient needs stent placement to improve drainage from nephrostomy tube as well. Case was discussed with the urologist again urology said that the patient has extensive mass which is occlusive, and patient will need higher level of care interventional radiology procedure for anterograde stent placement. Transfer nurse was informed, transfer process initiated. Exam Vital Signs Temp Pulse Resp BP Pulse Ox O2 Del Method O2 Flow Rate 97.3 F 70 15 140/70 H 96 Nasal Cannula 2 12/26/24 12:00 12/26/24 13:10 12/26/24 12:00 12/26/24 13:10 12/26/24 12:00 12/26/24 12:00 12/26/24 12:00 Narrative Exam General: No acute distress, well nourished Eye: PERRL, EOMI, normal conjunctiva, no scleral icterus HENT: Normocephalic, atraumatic, hearing intact to conversation at normal volume, moist oral mucosa Neck: Supple, non-tender, no JVD, no lymphadenopathy Lungs: Non-labored respirations, symmetric chest rise, Clear to auscultate bilaterally Heart: Peripheral pulses intact bilaterally, Regular rate and Rhythm. Abdomen: Soft, non-tender, non-distended. Bilateral nephrostomy tube noted, drainage from bilateral sites noted. Musculoskeletal: Normal range of motion and strength Skin: Skin is warm, dry, no rashes or lesions. Psychiatric: Cooperative, appropriate mood and affect Neuro: Cranial nerves II-XII grossly intact. Strength 5/5 throughout. Sensations intact to light touch. Objective Labs 12/27/24 05:03 12/27/24 05:03 Labs: Laboratory Results - last 24 hr 12/26/24 12/26/24 05:11 13:32 WBC 10.6 RBC 2.80 L Hgb 7.0 L 7.6 L Hct 22.3 L 24.3 L MCV 80 MCH 25.0 MCHC 31.4 RDW Std Deviation 42.0 Plt Count 485 H D Neut % (Auto) 58 Lymph % (Auto) 30 Coffey % (Auto) 9 Eos % (Auto) 2 Baso % (Auto) 1 Neut # (Auto) 6.1 Lymph # (Auto) 3.2 Coffey # (Auto) 1.0 H Eos # (Auto) 0.2 Baso # (Auto) 0.1 Immature Gran # (Auto) 0.13 H Absolute Nucleated RBC 0.00 Immature Gran % 1 H Nucleated RBC % 0 Sodium 137 Potassium 3.9 Chloride 97 L Carbon Dioxide 28.6 Anion Gap 11 BUN 42 H Creatinine 3.5 H Estim Creat Clear Calc 20.7 L eGFR 16 L BUN/Creatinine Ratio 12 Glucose 171 H Calculated Osmolality 288 Calcium 8.9 Corrected Calcium 9.1 Phosphorus 3.6 Magnesium 2.3 Total Bilirubin 0.2 L AST < 8 ALT < 7 L Alkaline Phosphatase 81 Total Protein 6.6 Albumin 3.7 Globulin 2.9 Albumin/Globulin Ratio 1.3 Quality Measures Quality Measures VTE prophylaxis Assessment & Plan Assessment Current Active Medications: Generic Name Dose Route Start Last Admin Trade Name Freq PRN Reason Stop Dose Admin Acetaminophen 650 mg 12/19/24 18:23 12/26/24 12:08 Acetaminophen 325 Mg Tablet PO 01/09/25 23:47 650 mg Q6H PRN Administration PAIN 1-6 (mild-mod Hydrocodone Bitart/Acetaminophen 1 tab 12/26/24 13:59 Hydrocodone/Apap 5/325 Tablet PO 12/31/24 13:58 Q6HR PRN PAIN SCALE 4-6 (Moderate Buspirone HCl 10 mg 12/11/24 21:00 12/25/24 20:40 Buspirone Hcl 5 Mg Tablet PO 01/10/25 20:59 10 mg HS CLEMENTINE Administration Calcium Acetate 667 mg 12/13/24 12:00 12/26/24 12:08 Calcium Acetate 667 Mg Tablet PO 01/12/25 11:59 667 mg TIDWM CLEMENTINE Administration Carvedilol 25 mg 12/20/24 17:30 12/26/24 08:28 Carvedilol 12.5 Mg Tablet PO 01/19/25 17:29 25 mg BIDWM CLEMENTINE Administration Dextrose 25 ml 12/10/24 23:51 Dextrose 50%-Water Inj 50 Ml Syringe IV 01/09/25 23:50 Q15MIN PRN BG 50-70 responsive npo pt Dextrose 50 ml 12/10/24 23:51 12/13/24 11:33 Dextrose 50%-Water Inj 50 Ml Syringe IV 01/09/25 23:50 50 ml Q15MIN PRN Administration BG <50 OR BG <70 & pt unresponsive Famotidine 20 mg 12/19/24 09:00 12/26/24 08:28 Famotidine 20 Mg Tablet PO 01/18/25 08:59 20 mg QDAY CLEMENTINE Administration Ferrous Sulfate 325 mg 12/21/24 09:00 12/25/24 09:10 Ferrous Sulf 325 Mg Tablet PO 01/20/25 08:59 325 mg QOD CLEMENTINE Administration Glucagon 1 mg 12/10/24 23:51 Glucagon Inj 1 Mg Vial IM Q15MIN PRN BG <70, and no IV access Heparin Sodium (Porcine) 3,800 unit 12/16/24 12:29 12/20/24 12:20 Heparin Sod Inj 1000 Unit/Ml Vial 10 Ml INDWELLCAT 12/30/24 12:28 3,800 unit X1 PRN Administration DIALYSIS Hydralazine HCl 10 mg 12/19/24 09:12 Hydralazine Inj 20 Mg/Ml Vial IVP 01/18/25 09:11 Q6HR PRN SBP > 180 Hydralazine HCl 50 mg 12/20/24 14:00 12/26/24 13:10 Hydralazine Hcl 25 Mg Tablet PO 01/19/25 13:59 50 mg TID CLEMENTINE Administration Hydromorphone HCl 0.5 mg 12/24/24 18:44 12/26/24 12:23 Hydromorphone Inj 2 Mg/Ml Vial IVP 12/29/24 18:43 0.5 mg Q4HR PRN Administration Pain 7-10 or breakthrough Hydroxyzine HCl 25 mg 12/13/24 21:00 12/25/24 20:40 Hydroxyzine Hcl 25 Mg Tablet PO 01/12/25 20:59 25 mg HS CLEMENTINE Administration Insulin Glargine 18 unit 12/15/24 21:00 12/25/24 20:34 Insulin Glargine (Lantus) 5 Unit/0.05 Ml (Per 5 Units) SC 01/14/25 20:59 18 unit HS CLEMENTINE Administration Insulin Human Lispro 0 unit 12/19/24 21:00 12/26/24 12:24 Insulin Lispro (Admelog) 1 Unit/0.01 Ml Unit SC 01/18/25 20:59 1 unit ACHS CLEMENTINE Administration Protocol Nifedipine 60 mg 12/16/24 14:00 12/26/24 08:26 Nifedipine Xl 30 Mg Tabcr PO 01/15/25 13:59 60 mg QDAY CLEMENTINE Administration Ondansetron HCl 4 mg 12/10/24 23:48 12/22/24 22:36 Ondansetron Inj 2 Mg/Ml Inj 2 Ml IVP 01/09/25 23:47 4 mg Q6H PRN Administration NAUSEA OR VOMITING Protocol Sennosides 1 tab 12/16/24 14:00 12/26/24 08:28 Senna Tablet PO 01/15/25 13:59 1 tab QDAY CLEMENTINE Administration Protocol Sodium Chloride 3 ml 12/11/24 14:16 12/13/24 08:41 Sodium Chloride Rt Katherine 0.9% 3 Ml Nebu INH 01/10/25 14:15 3 ml PRN PRN Administration SOLN Plan 44-year-old female with past medical history of insulin-dependent type 2 diabetes, hypertension, GERD, history of valley fever presented to the ED on 12/10 with episode of left flank pain, nausea/vomiting and chills will be admitted for hypertensive emergency requiring close monitoring along with acute renal failure requiring urology and nephrology consultation and IV antibiotics for cystitis #Bladder mass #Status post nephrostomy tube placement #Status post nephrostogram 12/26 -Cystoscopic examination by Urologist Dr. Friedman: found Bilateral hydronephrosis, large bladder mass occupying posterior bladder wall occupying the ureteral orifices. -After cystoscopy, patient noted that she had history of cervical cancer 3 years ago. -MRI abd/pelvis: Mild to moderate bilateral hydronephorsis, and dilated ureters extending to the bladder. -Per nephrology, the bladder mass is confined to the bladder. -Patient received bilatereal percutaneous nephrostomy tube placement on 12/19/2024 -12/24/2024 Creatinine is 3.8. Total Output is 4.3L. Right nephrostomy tube output is markedly decreased, with bloody urine noted in the drainage bag. Plan: -Patient underwent nephrostogram earlier this morning today, has satisfactory drainage from bilateral nephrostomy tubes. Right nephrostomy tube nephrostogram patient has shows that patient has extensive debris's in the renal collecting system. -Case was discussed with urologist who recommended anterograde stent placed by interventional radiologist, was discussed with interventional radiology, IR interventional radiologist informed that he is unable to perform the procedure, per interventional radiology there is extensive debris's, patient needs stent placement to improve drainage from nephrostomy tube as well. -Case was discussed with the urologist again urology said that the patient has extensive mass which is occlusive, and patient will need higher level of care interventional radiology procedure for anterograde stent placement. Transfer nurse was informed, transfer process initiated. - Transfer to higher level of care for interventional radiology to place anterograde stent. #Acute renal failure 2/2 Urinary Retention 2/2 Obstructive Uropathy Patient experienced acute renal failure, likely secondary to obstructive uropathy given bladder mass noted on cystoscopy report. Previous UA noted to have hematuria. Improving renal function with nephrostomy tubes in place. Diagnostics: -Repeat UA 12/14 Urine protein +1 Urine blood +1 RBC 5 -12/20/2024 Patient produced 4.2 L of urine . -12/22/2024 Patient's output was 1155 mL. Hematuria was observed in the output from the right nephrostomy tube, while the left nephrostomy output remained clear and unremarkable. Cr level of 3.8 Plan: -Nephrology consulted, Dr. Pierre, - Pending nuclear renal scan, IgA levels for IgA nephropathy, Hepatitis A/B titers, ANCA titers, pending results, appreciate recommendations -Avoid nephrotoxic agents -Renally dose medications -Replete electrolytes as needed and follow-up with morning labs -Currently, hemodialysis is on hold. #Acute urinary retention, improving #Bilateral hydronephrosis, likely secondary to obstruction #Cystitis #Complicated UTI, nephrolithiasis #Hematuria -On exam, patient no longer has left flank flank with CVA tenderness -CT abdomen pelvis shows a thick-walled cavitary lesion in the right middle lobe and a 22 mm pulmonary nodule in the anterior right lower lobe, numerous bilateral nonobstructing renal calculi, moderate bilateral hydronephrosis without calculi and cystitis -Based on CTAP presentation, urinary retention due to intake of meclizine was suspected as patient started to take it 1wk everyday prior to coming to the hospital. -Renal Ultrasound (12/11/2024): Moderate bilateral hydronephrosis -Renal Ultrasound (12/12/2024): Moderate bilateral hydronephrosis. Plan: -Advised to stop taking meclizine. -Finished receiving IV ceftriaxone 2g IV qd (12/11-12/16). Rec IV ceftriaxone 1g IV qd (12/17-12/23) #Hypertensive emergency, improving #Hypertension Patient has significant history of hypertension on home antihypertensives Presenting to the ED with acute renal failure and elevated systolic pressure in the 200s Plan: - continue Nifedipine 30mg PO qd - Coreg 25 mg PO BID - Hydralazine 50mg PO TID #Insulin-dependent type 2 diabetes Pertinent labs: 06/2024 A1C 11.1 12/11/24 A1C 8.0 Patient apparently takes 30 units of long-acting insulin twice a day Plan: Insulin Glargine 15 units at bedtime Sliding scale #History of Valley Fever -CTAP(03/21/2024):30 mm thick-walled cavitary lesion partially visualized right midlung,, 22 mm pulmonary nodule anterior right lower lobe -CXR(07/16/2024): Poorly defined nodular density 18 mm in the right lower lobe, -CXR (12/10/2024):Opacity right base which may represent a pulmonary mass, 19 mm -CTAP(12/10/2024): thick walled 25 mm cavitary lesion in the right middle lobe and 22mm pulmonary nodule anterior right lower lobe Plan: -Fairly stable right lung pulmonary nodule. -Will continue to monitor. #GERD Chronic medical problems: All pertinent to the following presentation Plan: -Continue Pantoprazole 40 mg PO QD Health Maintenance: Lines: PIV Diet: Renal and carb consistent low Bowel: Senna GI prophylaxis: Pantoprazole 40 mg PO QD DVT prophylaxis: SCD Dispo: Nephrology neurology recommendations, IV antibiotics for cystitis, pending cystoscopy and biopsy on Sun. Code: Full Case discussed with Attending Physician Dr. Benjamin. Shana Jones MD Internal Medicine PGY-2 Disclaimer: This note was dictated by speech recognition. Minor errors in brake operator heavy duty may be present due to voice recognition software. Attending Provider Attestation/Addendum I attest that I was physically present for the evaluation, physical examination, lab and imaging review of the patient with the residents. I discussed the case with the residents and agree with the findings and plans of care as documented above. At bedside today, patient continues to complain of pain around her right nephrostomy site. Adjusted her pain medication regimen. She had her nephrostogram done earlier, noted to have good drainage from left side. Right side noted to have extensive debris in the collecting system, likely reason for decreased drainage from right side. Both side continue to drain but right side has lower drainage than the left. Discussed with urology, recommended anterograde stent placement with IR. Discussed with IR, stated that the procedure cannot be completed at our facility, we discussed with urology, recommended transfer to higher center for IR anterograde stent placement. Discussed with transfer nurse, transfer process initiated. Discussed with transfer nurse at [facility], explained about patient's condition, explained that the right nephrostomy tube is functional as per nephrostogram but only not draining enough due to extensive debris. Kidney function is slowly improving, nephrology following closely, no dialysis recommended at this time, appreciate recommendations. Continues to be on nifedipine, Coreg, hydralazine for hypertension, insulin regimen for diabetes and pantoprazole for GERD. Sally Benjamin MD
--- NOTE | 2024-12-26 16:21 | PC.CC ---
Addendum entered by Guy Rick RN 12/27/24 08:31: 0830- Call placed to [employer], left detailed VM with my request for insurance authorization and need for transfer for urology services, I left my contact information and number, pending response from her at this time. Addendum entered by Randolph Hernandez RN 12/26/24 18:27: 1824: received call from [facility] s[facility] informed her i am not able to obtain ins auth since it is after hours. She stated she will close case but we can re-initiate once we get insurance auth. Addendum entered by Randolph Hernandez RN 12/26/24 18:13: 1801: received call from Summer with [facility], she asked to speak to Dr. Benjamin. Call initiated. Urology recs: replace Rt nephrostomy tube and monitor output. Dr. Benjamin stated, per our radiologist tube is intact and does not need to be replaced. Summer informed us that she has a call out to their IR and waiting for response. She also stated that a TBA will be needed and and insurance auth will be needed to further review. Addendum entered by Randolph Hernandez RN 12/26/24 17:56: 1755: called [facility], per Summer, she received the packet and is putting it together for review. She will call back Addendum entered by Randolph Hernandez RN 12/26/24 17:52: 1704: Called [facility], left VM to return my call. 1702: Maricruz sierra called back - needs insurance auth to review 1650: transfer initiated with [employer] Original Note: received transfer request for IR for Anterograde Ureteral-bladder stent. Clinicals sent to [facility] [place] [facility] and [employer]
[2024-12-26] MEDS: HYDROcodone/APAP 5/325 TABLET 1 TAB PO (21:21)
[2024-12-26] MEDS: INSULIN GLARGINE (Lantus) 5 UNIT/0.05 ML (PER 5 UNITS) 18 UNIT SC (21:23)
[2024-12-27] VITALS (12 sets, daily range): BP systolic 109–138; BP diastolic 54–79; PULSE 64–89; RESP 13–20; TEMP 36.2–36.9; O2SAT 92–97
[2024-12-27] MEDS: HYDROmorphone INJ 2 MG/ML VIAL 0.5 MG IVP (04:49)
[2024-12-27 06:03] LABS: Basophils # (Auto) 0.1 Thou/mm3 (0.0-0.2); Basophils % (Auto) 1 % (0-2.5); Eosinophils # (Auto) 0.3 Thou/mm3 (0.0-0.5); Eosinophils % (Auto) 3 % (0-10); Hematocrit 24.8 % (36.0-46.0); Immature Granulocytes Auto 0.33 Thou/mm3 (0.00-0.00); Lymphocytes # (Auto) 3.4 Thou/mm3 (1.0-4.8); Lymphocytes % (Auto) 29 % (10-50); Mean Corpuscular HGB Conc 31.0 g/dl (31.0-37.0); Mean Corpuscular Hemoglobin 24.7 pg (25.0-35.0); Mean Corpuscular Volume 80 fL (80-100); Monocytes # (Auto) 0.9 Thou/mm3 (0.0-0.8); Monocytes % (Auto) 8 % (0-12); Neutrophils # (Auto) 6.7 Thou/mm3 (1.8-7.7); Neutrophils % (Auto) 57 % (37-80); Nucleated Red Blood Cell # 0.00 Thou/mm3 (0.00-0.00); Nucleated Red Blood Cell % 0 /100 WBC (0); Platelet Count 496 Thou/mm3 (140-440); RDW Standard Deviation 40.8 fL (36.4-46.3); Red Blood Count 3.12 Miln/mm3 (4.00-5.20); White Blood Count 11.7 Thou/mm3 (3.6-11.0)
[2024-12-27 06:08] LABS: Hemoglobin 7.7 g/dL (12.0-16.0)
[2024-12-27 06:52] LABS: Alanine Aminotransferase < 7 U/L (10-49); Albumin, Serum 3.8 gm/dL (3.5-5.0); Albumin/Globulin Ratio 1.4 (1.2-2.2); Alkaline Phosphatase 85 U/L (46-116); Anion Gap 11 (7-16); Aspartate Amino Transferase < 8 U/L (0-34); BUN/Creatinine Ratio 12 Ratio (12-20); Bilirubin,Total 0.2 mg/dL (0.3-1.2); Blood Urea Nitrogen 42 mg/dL (9-23); Calcium 9.0 mg/dL (8.3-10.6); Calcium (Corrected) 9.2 mg/dL (8.5-10.1); Carbon Dioxide 27.5 mMol/L (20.0-31.0); Chloride 99 mMol/L (98-107); Creatinine (Component) 3.4 mg/dL (0.6-1.3); Estimated Creatinine Clearance 21.4 mL/min (>60); Globulin 2.8 gm/dL (2.3-3.5); Glucose 152 mg/dL (74-106); Magnesium 1.7 mg/dL (1.6-2.6); Osmolality,Calculated 287 (275-295); Phosphorous 4.4 mg/dL (2.4-5.1); Potassium 3.8 mMol/L (3.4-5.1); Sodium 137 mMol/L (136-145); Total Protein 6.6 gm/dL (5.7-8.2); eGFR 17 See Note
[2024-12-27] MEDS: FERROUS SULF 325 MG TABLET PO (08:09)
[2024-12-27] MEDS: CALCIUM ACETATE 667 MG TABLET PO ×3 (08:09→17:42)
[2024-12-27] MEDS: FAMOTIDINE 20 MG TABLET PO (08:10)
[2024-12-27] MEDS: NIFEdipine XL 30 MG TABCR 60 MG PO (08:17)
[2024-12-27] MEDS: HYDROmorphone INJ 2 MG/ML VIAL 0.75 MG IVP ×3 (09:51→23:57)
--- NOTE | 2024-12-27 13:32 | ESPR_ITS ---
Documentation for date of: 12/27/24 Subjective Subjective Interval history: No Overnight events. Patient seen and examined at bedside will start on oxycodone for moderate pain, Dilaudid increased to 0.75 as needed for severe/breakthrough Patient is pending insurance authorization for transfer. Does have bloody bilateral nephrostomy tube drainage. Hemoglobin is stable, pending transfer. Exam Vital Signs Temp Pulse Resp BP Pulse Ox O2 Del Method O2 Flow Rate 98.4 F 74 20 138/74 H 96 Room Air 2 12/27/24 12:00 12/27/24 12:12/27/24 12:12/27/24 12:12/27/24 12:00 12/27/24 12:12/26/24 16:00 Narrative Exam General: No acute distress, well nourished Eye: PERRL, EOMI, normal conjunctiva, no scleral icterus HENT: Normocephalic, atraumatic, hearing intact to conversation at normal volume, moist oral mucosa Neck: Supple, non-tender, no JVD, no lymphadenopathy Lungs: Non-labored respirations, symmetric chest rise, Clear to auscultate bilaterally Heart: Peripheral pulses intact bilaterally, Regular rate and Rhythm. Abdomen: Soft, non-tender, non-distended. Bilateral nephrostomy tube noted, drainage from bilateral sites noted. Musculoskeletal: Normal range of motion and strength Skin: Skin is warm, dry, no rashes or lesions. Psychiatric: Cooperative, appropriate mood and affect Neuro: Cranial nerves II-XII grossly intact. Strength 5/5 throughout. Sensations intact to light touch. Objective Labs 12/27/24 05:03 12/27/24 05:03 Labs: Laboratory Results - last 24 hr 12/26/24 12/27/24 13:32 05:03 WBC 11.7 H RBC 3.12 L Hgb 7.6 L 7.7 L Hct 24.3 L 24.8 L MCV 80 MCH 24.7 L MCHC 31.0 RDW Std Deviation 40.8 Plt Count 496 H Neut % (Auto) 57 Lymph % (Auto) 29 [place] % (Auto) 8 Eos % (Auto) 3 Baso % (Auto) 1 Neut # (Auto) 6.7 Lymph # (Auto) 3.4 [place] # (Auto) 0.9 H Eos # (Auto) 0.3 Baso # (Auto) 0.1 Immature Gran # (Auto) 0.33 H Absolute Nucleated RBC 0.00 Immature Gran % 3 H Nucleated RBC % 0 Sodium 137 Potassium 3.8 Chloride 99 Carbon Dioxide 27.5 Anion Gap 11 BUN 42 H Creatinine 3.4 H Estim Creat Clear Calc 21.4 L eGFR 17 L BUN/Creatinine Ratio 12 Glucose 152 H Calculated Osmolality 287 Calcium 9.0 Corrected Calcium 9.2 Phosphorus 4.4 Magnesium 1.7 Total Bilirubin 0.2 L AST < 8 ALT < 7 L Alkaline Phosphatase 85 Total Protein 6.6 Albumin 3.8 Globulin 2.8 Albumin/Globulin Ratio 1.4 Quality Measures Quality Measures VTE prophylaxis Assessment & Plan Assessment Current Active Medications: Generic Name Dose Route Start Last Admin Trade Name Freq PRN Reason Stop Dose Admin Acetaminophen 650 mg 12/19/24 18:23 12/26/24 12:08 Acetaminophen 325 Mg Tablet PO 01/09/25 23:47 650 mg Q6H PRN Administration PAIN 1-6 (mild-mod Buspirone HCl 10 mg 12/11/24 21:00 12/26/24 21:22 Buspirone Hcl 5 Mg Tablet PO 01/10/25 20:59 10 mg HS CLEMENTINE Administration Calcium Acetate 667 mg 12/13/24 12:00 12/27/24 11:49 Calcium Acetate 667 Mg Tablet PO 01/12/25 11:59 667 mg TIDWM CLEMENTINE Administration Carvedilol 25 mg 12/20/24 17:30 12/27/24 08:09 Carvedilol 12.5 Mg Tablet PO 01/19/25 17:29 25 mg BIDWM CLEMENTINE Administration Dextrose 25 ml 12/10/24 23:51 Dextrose 50%-Water Inj 50 Ml Syringe IV 01/09/25 23:50 Q15MIN PRN BG 50-70 responsive npo pt Dextrose 50 ml 12/10/24 23:51 12/13/24 11:33 Dextrose 50%-Water Inj 50 Ml Syringe IV 01/09/25 23:50 50 ml Q15MIN PRN Administration BG <50 OR BG <70 & pt unresponsive Famotidine 20 mg 12/19/24 09:00 12/27/24 08:10 Famotidine 20 Mg Tablet PO 01/18/25 08:59 20 mg QDAY CLEMENTINE Administration Ferrous Sulfate 325 mg 12/21/24 09:00 12/27/24 08:09 Ferrous Sulf 325 Mg Tablet PO 01/20/25 08:59 325 mg QOD CLEMENTINE Administration Glucagon 1 mg 12/10/24 23:51 Glucagon Inj 1 Mg Vial IM Q15MIN PRN BG <70, and no IV access Heparin Sodium (Porcine) 3,800 unit 12/16/24 12:29 12/20/24 12:20 Heparin Sod Inj 1000 Unit/Ml Vial 10 Ml INDWELLCAT 12/30/24 12:28 3,800 unit X1 PRN Administration DIALYSIS Hydralazine HCl 10 mg 12/19/24 09:12 Hydralazine Inj 20 Mg/Ml Vial IVP 01/18/25 09:11 Q6HR PRN SBP > 180 Hydralazine HCl 50 mg 12/20/24 14:00 12/27/24 05:47 Hydralazine Hcl 25 Mg Tablet PO 01/19/25 13:59 Not Given TID CLEMENTINE Hydromorphone HCl 0.75 mg 12/27/24 09:08 12/27/24 09:51 Hydromorphone Inj 2 Mg/Ml Vial IVP 12/29/24 18:43 0.75 mg Q4HR PRN Administration Pain 7-10 or breakthrough Hydroxyzine HCl 25 mg 12/13/24 21:00 12/26/24 21:22 Hydroxyzine Hcl 25 Mg Tablet PO 01/12/25 20:59 25 mg HS CLEMENTINE Administration Insulin Glargine 18 unit 12/15/24 21:00 12/26/24 21:23 Insulin Glargine (Lantus) 5 Unit/0.05 Ml (Per 5 Units) SC 01/14/25 20:59 18 unit HS CLEMENTINE Administration Insulin Human Lispro 0 unit 12/19/24 21:00 12/27/24 11:13 Insulin Lispro (Admelog) 1 Unit/0.01 Ml Unit SC 01/18/25 20:59 Not Given ACHS [facility] Protocol Nifedipine 60 mg 12/16/24 14:00 12/27/24 08:17 Nifedipine Xl 30 Mg Tabcr PO 01/15/25 13:59 60 mg QDAY CLEMENTINE Administration Ondansetron HCl 4 mg 12/10/24 23:48 12/22/24 22:36 Ondansetron Inj 2 Mg/Ml Inj 2 Ml IVP 01/09/25 23:47 4 mg Q6H PRN Administration NAUSEA OR VOMITING Protocol Oxycodone/Acetaminophen 1 tab 12/27/24 09:09 Oxycodone/Apap 5/325 Tablet PO 01/01/25 09:08 Q6HR PRN PAIN SCALE 4-6 (Moderate Sennosides 1 tab 12/16/24 14:00 12/27/24 08:09 Senna Tablet PO 01/15/25 13:59 1 tab QDAY CLEMENTINE Administration Protocol Sodium Chloride 3 ml 12/11/24 14:16 12/13/24 08:41 Sodium Chloride Rt Katherine 0.9% 3 Ml Nebu INH 01/10/25 14:15 3 ml PRN PRN Administration SOLN Plan 44-year-old female with past medical history of insulin-dependent type 2 diabetes, hypertension, GERD, history of valley fever presented to the ED on 12/10 with episode of left flank pain, nausea/vomiting and chills will be admitted for hypertensive emergency requiring close monitoring along with acute renal failure requiring urology and nephrology consultation and IV antibiotics for cystitis #Bladder mass #Status post nephrostomy tube placement #Status post nephrostogram 12/26 -Cystoscopic examination by Urologist Dr. Friedman: found Bilateral hydronephrosis, large bladder mass occupying posterior bladder wall occupying the ureteral orifices. -After cystoscopy, patient noted that she had history of cervical cancer 3 years ago. -MRI abd/pelvis: Mild to moderate bilateral hydronephorsis, and dilated ureters extending to the bladder. -Per nephrology, the bladder mass is confined to the bladder. -Patient received bilatereal percutaneous nephrostomy tube placement on 12/19/2024 -12/24/2024 Creatinine is 3.8. Total Output is 4.3L. Right nephrostomy tube output is markedly decreased, with bloody urine noted in the drainage bag. Plan: -Patient underwent nephrostogramon 12/26, has satisfactory drainage from bilateral nephrostomy tubes. Right nephrostomy tube nephrostogram patient has shows that patient has extensive debris's in the renal collecting system. -Case was discussed with urologist who recommended anterograde stent placed by interventional radiologist, was discussed with interventional radiology, IR interventional radiologist informed that he is unable to perform the procedure, per interventional radiology there is extensive debris's, patient needs stent placement to improve drainage from nephrostomy tube as well. -Case was discussed with the urologist again urology said that the patient has extensive mass which is occlusive, and patient will need higher level of care interventional radiology procedure for anterograde stent placement. Transfer nurse was informed, transfer process initiated. - Transfer to higher level of care for interventional radiology to place anterograde stent. #Acute renal failure 2/2 Urinary Retention 2/2 Obstructive Uropathy Patient experienced acute renal failure, likely secondary to obstructive uropathy given bladder mass noted on cystoscopy report. Previous UA noted to have hematuria. Improving renal function with nephrostomy tubes in place. Diagnostics: -Repeat UA 12/14 Urine protein +1 Urine blood +1 RBC 5 -12/20/2024 Patient produced 4.2 L of urine . -12/22/2024 Patient's output was 1155 mL. Hematuria was observed in the output from the right nephrostomy tube, while the left nephrostomy output remained clear and unremarkable. Cr level of 3.8 Plan: -Nephrology consulted, Dr. Pierre, - Pending nuclear renal scan, IgA levels for IgA nephropathy, Hepatitis A/B titers, ANCA titers, pending results, appreciate recommendations -Avoid nephrotoxic agents -Renally dose medications -Replete electrolytes as needed and follow-up with morning labs -Currently, hemodialysis is on hold. #Acute urinary retention, improving #Bilateral hydronephrosis, likely secondary to obstruction #Cystitis #Complicated UTI, nephrolithiasis #Hematuria -On exam, patient no longer has left flank flank with CVA tenderness -CT abdomen pelvis shows a thick-walled cavitary lesion in the right middle lobe and a 22 mm pulmonary nodule in the anterior right lower lobe, numerous bilateral nonobstructing renal calculi, moderate bilateral hydronephrosis without calculi and cystitis -Based on CTAP presentation, urinary retention due to intake of meclizine was suspected as patient started to take it 1wk everyday prior to coming to the hospital. -Renal Ultrasound (12/11/2024): Moderate bilateral hydronephrosis -Renal Ultrasound (12/12/2024): Moderate bilateral hydronephrosis. Plan: -Advised to stop taking meclizine. -Finished receiving IV ceftriaxone 2g IV qd (12/11-12/16). Rec IV ceftriaxone 1g IV qd (12/17-12/23) #Hypertensive emergency, improving #Hypertension Patient has significant history of hypertension on home antihypertensives Presenting to the ED with acute renal failure and elevated systolic pressure in the 200s Plan: - continue Nifedipine 30mg PO qd - Coreg 25 mg PO BID - Hydralazine 50mg PO TID #Insulin-dependent type 2 diabetes Pertinent labs: 06/2024 A1C 11.1 12/11/24 A1C 8.0 Patient apparently takes 30 units of long-acting insulin twice a day Plan: Insulin Glargine 15 units at bedtime Sliding scale #History of Valley Fever -CTAP(03/21/2024):30 mm thick-walled cavitary lesion partially visualized right midlung,, 22 mm pulmonary nodule anterior right lower lobe -CXR(07/16/2024): Poorly defined nodular density 18 mm in the right lower lobe, -CXR (12/10/2024):Opacity right base which may represent a pulmonary mass, 19 mm -CTAP(12/10/2024): thick walled 25 mm cavitary lesion in the right middle lobe and 22mm pulmonary nodule anterior right lower lobe Plan: -Fairly stable right lung pulmonary nodule. -Will continue to monitor. #GERD Chronic medical problems: All pertinent to the following presentation Plan: -Continue Pantoprazole 40 mg PO QD Health Maintenance: Lines: PIV Diet: Renal and carb consistent low Bowel: Senna GI prophylaxis: Pantoprazole 40 mg PO QD DVT prophylaxis: SCD Dispo: Pending transfer Code: Full Case discussed with Attending Physician Dr. Benjamin. Shana Jones MD Internal Medicine PGY-2 Disclaimer: This note was dictated by speech recognition. Minor errors in driller's offsider may be present due to voice recognition software. Attending Provider Attestation/Addendum I attest that I was physically present for the evaluation, physical examination, lab and imaging review of the patient with the residents. I discussed the case with the residents and agree with the findings and plans of care as documented above. At bedside today, patient appears more comfortable, states that her pain is better controlled with current analgesic regimen. WBC noted to have slightly increased from 10.6-11.7, no signs of active infection, we will monitor closely. Hemoglobin remained stable, patient continued to have good urinary output, more from left nephrostomy than the right. Kidney function continues to improve slowly. Continues to be on nifedipine, Coreg and hydralazine for high blood pressure, insulin regimen further. Awaiting transfer to [facility] for IR anterograde nephrostomy tube placement, pending insurance Auth. Sally Benjamin MD
--- NOTE | 2024-12-27 13:59 | ESPR_ITS ---
Documentation for date of: 12/27/24 Subjective Subjective Interval history: Ms. Cedillo is a 44-year-old female with past medical history of insulin- dependent type 2 diabetes, hypertension, GERD, history of valley fever untreated presented to the ED on 12/10 with episode of left flank pain, nausea/vomiting and chills. Patient states that the chills started roughly an hour ago but that she has been having progressively worsening left flank pain radiating to her back. Patient denies having any dysuria but does state that she has been having lilia hematuria for several days. Patient denies having any fevers but she does state that she has been having chills. Patient also complains of suprapubic pain and mentions that she feels pain near her ovaries. Patient has not seen PCP regarding the symptoms but she was seen several weeks ago for GERD like symptoms and was given medications. Patient otherwise denies having any concerning symptoms such as chest pain, dizziness, shortness of breath. In the ED, patient presented in hypertensive emergency with a blood pressure 187/83, other vitals wnl. Pertinent lab findings included WBC of 9, hemoglobin 7.9, potassium of 5.4, BUN of 31, creatinine 3.9, EGFR of 14, magnesium 1.6, troponin less than 0.02, BNP of 235, urinalysis shows hematuria and mild pyuria but no bacteria. Chest x-ray shows mild prominence of ventricles along with opacity in the right base concerning for pulmonary mass, EKG shows sinus rhythm without any concerning ST changes and CT abdomen pelvis shows a thick-walled cavitary lesion in the right middle lobe and a 22 mm pulmonary nodule in the anterior right lower lobe, numerous bilateral nonobstructing renal calculi, moderate bilateral hydronephrosis without calculi and cystitis. Patient will be admitted for hypertensive emergency requiring close monitoring along with acute renal failure requiring urology and nephrology consultation and IV antibiotics for cystitis Upon seeing the patient currently, she is on Mg Sulfate, Ceftriaxone, Carvedilol 6.25 mg, and maintenance IV fluids with a slightly improved blood pressure of 168/88 with the rest of vitals wnl. Patient states she is currently feeling much better now. States that she still has some nausea, L flank pain radiating to back and some dizziness when she stands up for too long. Patient states she has noticed blood in her urine today and ever since March. Patient endorses having bowel movements. Patient denies fever, headache, chest pain, shortness of breath, vomiting. 12/25/2024: No acute events overnight. Patient seen and examined at bedside. 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 Vitals and labs reviewed. Patient this morning states she is doing well, no new complaints/concerns. Patient continues to have minimal R nephrostomy tube output with good L nephrostomy utbe output. Will hold HD today. Patient denies fever, chest pain, shortness of breath. 12/26/2024: No acute events overnight, patient seen and examined at bedside. pt reports R lower abdominal cramping pain, pt states she has leaking from L nephrostomy tube, pending IR nephrostomy tube assesment. Pt continues to have minimal R nephrostomy tube output (5-10 cc) and good L nephrostomy tube output(1450 cc) , will HOLD HD today. Pt denies fever, chest pain, shortness of breath. Biopsy of Bladder mass is benign. per conversation with urologist and Dr. Pineda, plan is for anterograde stents through the nephrostomy tubes and through the bladder mass. 12/27/2024: No acute events overnight, patient seen and examined at bedside. On exam patient has right lower quadrant pain on palpation. Patient states that she has experienced reduced leaking from nephrostomy tubes. Right nephrostomy tube output 350 cc, left nephrostomy tube output 1325. HOLD HD today, Cr 3.4, BUN 42, K, 4.8, Exam Vital Signs Temp Pulse Resp BP Pulse Ox O2 Del Method O2 Flow Rate 98.4 F 74 20 138/74 H 96 Room Air 2 12/27/24 12:00 12/27/24 13:42 12/27/24 12:00 12/27/24 13:42 12/27/24 12:00 12/27/24 12:00 12/26/24 16:00 Narrative Exam GENERAL: a&o x3, no acute distress,laying down in bed. HEENT: NC/AT. Moist mucosa. PERRLA/EOMI. R IJ dialysis catheter CARDIO: Heart RRR, no murmurs appreciated PULM: Lungs CTA B/L, no resp distress ABD: soft, non-distended, RLQ tender to palation SKIN: No edema bilateral lower extremities. No wounds/discoloration/rashes/amputations. +Pedal pulses present B/L. MSK: No joint swelling or pain/tenderness noted. Bilateral nephrostomy tubes draining L>R draining, increased output of fluid in R tube, slightly wet on back during examination. EXT: upper and lower extremities atraumatic in appearance, able to move all 4 extremities. NEURO: no focal neurologic deficits noted Objective Labs 12/27/24 05:03 12/27/24 05:03 Labs: Laboratory Results - last 24 hr 12/27/24 05:03 WBC 11.7 H RBC 3.12 L Hgb 7.7 L Hct 24.8 L MCV 80 MCH 24.7 L MCHC 31.0 RDW Std Deviation 40.8 Plt Count 496 H Neut % (Auto) 57 Lymph % (Auto) 29 Marshall % (Auto) 8 Eos % (Auto) 3 Baso % (Auto) 1 Neut # (Auto) 6.7 Lymph # (Auto) 3.4 Marshall # (Auto) 0.9 H Eos # (Auto) 0.3 Baso # (Auto) 0.1 Immature Gran # (Auto) 0.33 H Absolute Nucleated RBC 0.00 Immature Gran % 3 H Nucleated RBC % 0 Sodium 137 Potassium 3.8 Chloride 99 Carbon Dioxide 27.5 Anion Gap 11 BUN 42 H Creatinine 3.4 H Estim Creat Clear Calc 21.4 L eGFR 17 L BUN/Creatinine Ratio 12 Glucose 152 H Calculated Osmolality 287 Calcium 9.0 Corrected Calcium 9.2 Phosphorus 4.4 Magnesium 1.7 Total Bilirubin 0.2 L AST < 8 ALT < 7 L Alkaline Phosphatase 85 Total Protein 6.6 Albumin 3.8 Globulin 2.8 Albumin/Globulin Ratio 1.4 Quality Measures Quality Measures VTE prophylaxis Assessment & Plan Assessment Current Active Medications: Generic Name Dose Route Start Last Admin Trade Name Freq PRN Reason Stop Dose Admin Acetaminophen 650 mg 12/19/24 18:23 12/26/24 12:08 Acetaminophen 325 Mg Tablet PO 01/09/25 23:47 650 mg Q6H PRN Administration PAIN 1-6 (mild-mod Buspirone HCl 10 mg 12/11/24 21:00 12/26/24 21:22 Buspirone Hcl 5 Mg Tablet PO 01/10/25 20:59 10 mg HS CLEMENTINE Administration Calcium Acetate 667 mg 12/13/24 12:00 12/27/24 11:49 Calcium Acetate 667 Mg Tablet PO 01/12/25 11:59 667 mg TIDWM CLEMENTINE Administration Carvedilol 25 mg 12/20/24 17:30 12/27/24 08:09 Carvedilol 12.5 Mg Tablet PO 01/19/25 17:29 25 mg BIDWM CLEMENTINE Administration Dextrose 25 ml 12/10/24 23:51 Dextrose 50%-Water Inj 50 Ml Syringe IV 01/09/25 23:50 Q15MIN PRN BG 50-70 responsive npo pt Dextrose 50 ml 12/10/24 23:51 12/13/24 11:33 Dextrose 50%-Water Inj 50 Ml Syringe IV 01/09/25 23:50 50 ml Q15MIN PRN Administration BG <50 OR BG <70 & pt unresponsive Famotidine 20 mg 12/19/24 09:00 12/27/24 08:10 Famotidine 20 Mg Tablet PO 01/18/25 08:59 20 mg QDAY CLEMENTINE Administration Ferrous Sulfate 325 mg 12/21/24 09:00 12/27/24 08:09 Ferrous Sulf 325 Mg Tablet PO 01/20/25 08:59 325 mg QOD CLEMENTINE Administration Glucagon 1 mg 12/10/24 23:51 Glucagon Inj 1 Mg Vial IM Q15MIN PRN BG <70, and no IV access Heparin Sodium (Porcine) 3,800 unit 12/16/24 12:29 12/20/24 12:20 Heparin Sod Inj 1000 Unit/Ml Vial 10 Ml INDWELLCAT 12/30/24 12:28 3,800 unit X1 PRN Administration DIALYSIS Hydralazine HCl 10 mg 12/19/24 09:12 Hydralazine Inj 20 Mg/Ml Vial IVP 01/18/25 09:11 Q6HR PRN SBP > 180 Hydralazine HCl 50 mg 12/20/24 14:00 12/27/24 13:42 Hydralazine Hcl 25 Mg Tablet PO 01/19/25 13:59 50 mg TID CLEMENTINE Administration Hydromorphone HCl 0.75 mg 12/27/24 09:08 12/27/24 09:51 Hydromorphone Inj 2 Mg/Ml Vial IVP 12/29/24 18:43 0.75 mg Q4HR PRN Administration Pain 7-10 or breakthrough Hydroxyzine HCl 25 mg 12/13/24 21:00 12/26/24 21:22 Hydroxyzine Hcl 25 Mg Tablet PO 01/12/25 20:59 25 mg HS CLEMENTINE Administration Insulin Glargine 18 unit 12/15/24 21:00 12/26/24 21:23 Insulin Glargine (Lantus) 5 Unit/0.05 Ml (Per 5 Units) SC 01/14/25 20:59 18 unit HS CLEMENTINE Administration Insulin Human Lispro 0 unit 12/19/24 21:00 12/27/24 11:13 Insulin Lispro (Admelog) 1 Unit/0.01 Ml Unit SC 01/18/25 20:59 Not Given ACHS CLEMENTINE Protocol Nifedipine 60 mg 12/16/24 14:00 12/27/24 08:17 Nifedipine Xl 30 Mg Tabcr PO 01/15/25 13:59 60 mg QDAY CLEMENTINE Administration Ondansetron HCl 4 mg 12/10/24 23:48 12/22/24 22:36 Ondansetron Inj 2 Mg/Ml Inj 2 Ml IVP 01/09/25 23:47 4 mg Q6H PRN Administration NAUSEA OR VOMITING Protocol Oxycodone/Acetaminophen 1 tab 12/27/24 09:09 Oxycodone/Apap 5/325 Tablet PO 01/01/25 09:08 Q6HR PRN PAIN SCALE 4-6 (Moderate Sennosides 1 tab 12/16/24 14:00 12/27/24 08:09 Senna Tablet PO 01/15/25 13:59 1 tab QDAY CLEMENTINE Administration Protocol Sodium Chloride 3 ml 12/11/24 14:16 12/13/24 08:41 Sodium Chloride Rt Katherine 0.9% 3 Ml Nebu INH 01/10/25 14:15 3 ml PRN PRN Administration SOLN Plan Kacy Cedillo is a 44-year-old female with past medical history of insulin-dependent type 2 diabetes, hypertension, GERD, history of valley fever untreated presented to the ED on 12/10 with episode of left flank pain, nausea/vomiting and chills will be admitted for hypertensive emergency requiring close monitoring along with acute renal failure requiring urology and nephrology consultation and IV antibiotics for cystitis. #Acute kidney injury Likely multifactorial; suspecting pre-renal ischemic ATN vs obstructive etiology vs pre-renal from hypertensive emergency. Patient found to have pyelonephritis and seems to have vesicular ureteral reflux. CT showed numerous b/l nonobstructing renal caliculi, mod b/l hydronephrosis wo ureteral calculi, cystitis pattern Cr continues to stay elevated despite making good urine; patient clinically looks relatively well otherwise, Patient endorses having 3/4 UTI's per year. Patient received a kidney biopsy which showed ATN/AIN and underlying diabetes/hypertensive nephrosclerosis Bilateral percutaneous nephrostomy tube placed Ulytes wnl. DEMARCUS, ANCA, C3/C4, IgA negative, no indication of autoimmune disease. 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 12/26: IR nephrostomy tubes (L leaking, R minimal output): R tube in the correct position, internal debris, Dr. Carpio does not recommend exchanging the tube given extensive debris. L tube in the correct postion. Plan: -No HD today, plan for outpatient HD -Bilateral nephrostomy tubes, increased drainage of R tube compared to prior output 350 cc, L tube continues to have good output 1300cc. -cheng catheter in place with scant drainage. -Urology: Cystoscopy showed bladder tumor; -Needs outpatient tertiary care center evaluation for large bladder tumor, B ladder mass is benign, will need antegrade stents -Strict I/O's -Avoid nephrotoxic agents -Renally dose medications -Replete electrolytes as needed and follow-up with morning labs #Acute urinary retention #Bilateral hydronephrosis #Cystitis #Complicated UTI, nephrolithiasis #Hematuria #Hypertensive emergency, improving #Hypertension #Insulin-dependent type 2 diabetes #GERD -Managed per primary team Thank you for allowing us to take part in the care of Ms. Cedillo Plan discussed with nephrology attending Dr. Miriam Kirk MD Internal Medicine PGY-1 Attending Provider Attestation/Addendum Patient seen and examined with resident physician Dr. Kirk. Note reviewed, agree with findings and recommendations. 12/24/2024 patient complaining of significant abdominal discomfort. Dilaudid was given. Recommended In-N-Out catheter by the nurse. at bedside. Patient seems to be very emotional. She will be going for cystoscopy and bladder biopsy with possible anterograde stents today. Spoke to Dr. Vidal. Urine output more than 2 L. Hold dialysis today. Hope there will be renal recovery. Last dialysis 4 days ago. 12/25/2024 patient currently seen in medical floor. Still having abdominal discomfort and pain from the nephrostomy tube sites. Dilaudid was given. The right nephrostomy tube is not draining any urine. Nephrogram ordered by primary team. Patient made more than 2 L of urine. Will hold dialysis. Plan of care discussed with daughter, at bedside 12/26/2024 patient currently seen in medical floor. Seen by Dr. Cole for a right nonfunctioning nephrostomy tube which showed significant debris and was flushed. Currently seems to be making urine. Complaining of pain at the site of nephrostomy and is receiving Dilaudid. Urine output seems to be acceptable. Creatinine stable. Will hold dialysis today. 2 daughters at bedside. Spoke to Dr. Vidal-requested higher level of care for anterograde stent placement. Also needs a bladder tumor removal. Bladder biopsy came back negative for cancer. Creatinine 3.5. 12/27/2024 patient resting comfortably. Nephrostomy tubes are draining well. Creatinine Better at 3.4. Hold off on dialysis today. Hopefully his renal recovery. Kidney biopsy showed ATN.
--- NOTE | 2024-12-27 16:31 | PC.NURSE ---
MD ordered PO 5/325 oxycodone for first line pain management, RN pulled and scanned medication patient refused medication stating she does not want pills . Medication was appropriately wasted in med room.
[2024-12-27] MEDS: INSULIN GLARGINE (Lantus) 5 UNIT/0.05 ML (PER 5 UNITS) 18 UNIT SC (20:13)
[2024-12-27] MEDS: INSULIN LISPRO (AdmeLOG) 1 UNIT/0.01 ML UNIT SC (20:13)
[2024-12-28] VITALS (13 sets, daily range): BP systolic 108–135; BP diastolic 58–78; PULSE 74–81; RESP 13–19; TEMP 36.1–37.2; O2SAT 94–97
[2024-12-28 05:59] LABS: Basophils # (Auto) 0.1 Thou/mm3 (0.0-0.2); Basophils % (Auto) 1 % (0-2.5); Eosinophils # (Auto) 0.3 Thou/mm3 (0.0-0.5); Eosinophils % (Auto) 2 % (0-10); Hematocrit 25.2 % (36.0-46.0); Immature Granulocytes Auto 0.27 Thou/mm3 (0.00-0.00); Lymphocytes # (Auto) 2.9 Thou/mm3 (1.0-4.8); Lymphocytes % (Auto) 24 % (10-50); Mean Corpuscular HGB Conc 31.0 g/dl (31.0-37.0); Mean Corpuscular Hemoglobin 24.8 pg (25.0-35.0); Mean Corpuscular Volume 80 fL (80-100); Monocytes # (Auto) 0.9 Thou/mm3 (0.0-0.8); Monocytes % (Auto) 7 % (0-12); Neutrophils # (Auto) 7.7 Thou/mm3 (1.8-7.7); Neutrophils % (Auto) 64 % (37-80); Nucleated Red Blood Cell # 0.02 Thou/mm3 (0.00-0.00); Nucleated Red Blood Cell % 0 /100 WBC (0); Platelet Count 514 Thou/mm3 (140-440); RDW Standard Deviation 42.0 fL (36.4-46.3); Red Blood Count 3.14 Miln/mm3 (4.00-5.20); White Blood Count 12.1 Thou/mm3 (3.6-11.0)
[2024-12-28 06:03] LABS: Hemoglobin 7.8 g/dL (12.0-16.0)
[2024-12-28 06:35] LABS: Alanine Aminotransferase < 7 U/L (10-49); Albumin, Serum 4.0 gm/dL (3.5-5.0); Albumin/Globulin Ratio 1.5 (1.2-2.2); Alkaline Phosphatase 85 U/L (46-116); Anion Gap 13 (7-16); Aspartate Amino Transferase < 8 U/L (0-34); BUN/Creatinine Ratio 12 Ratio (12-20); Bilirubin,Total 0.2 mg/dL (0.3-1.2); Blood Urea Nitrogen 41 mg/dL (9-23); Calcium 9.2 mg/dL (8.3-10.6); Calcium (Corrected) 9.2 mg/dL (8.5-10.1); Carbon Dioxide 27.3 mMol/L (20.0-31.0); Chloride 98 mMol/L (98-107); Creatinine (Component) 3.3 mg/dL (0.6-1.3); Estimated Creatinine Clearance 22.0 mL/min (>60); Globulin 2.7 gm/dL (2.3-3.5); Glucose 160 mg/dL (74-106); Magnesium 2.0 mg/dL (1.6-2.6); Osmolality,Calculated 288 (275-295); Potassium 3.9 mMol/L (3.4-5.1); Sodium 138 mMol/L (136-145); Total Protein 6.7 gm/dL (5.7-8.2); eGFR 17 See Note
[2024-12-28] MEDS: HYDROmorphone INJ 2 MG/ML VIAL 0.75 MG IVP ×2 (06:35→20:48)
[2024-12-28] MEDS: NIFEdipine XL 30 MG TABCR 60 MG PO (08:06)
[2024-12-28] MEDS: CALCIUM ACETATE 667 MG TABLET PO ×3 (08:07→17:18)
[2024-12-28] MEDS: FAMOTIDINE 20 MG TABLET PO (08:07)
--- NOTE | 2024-12-28 10:37 | PC.CM ---
I reviewed notes and patient needs transfer for stent placement. I saw that Ashley and Harlan want authorization prior to reviewing. Nelly and Kal contacted Sydnee with [facility] at [phone]. I faxed over supporting progress notes today showing the reason for transfer. Fax # . I called manager practice Karen and I left a detailed message asking for help with getting authorization. Packet started with CD.
[2024-12-28] MEDS: INSULIN LISPRO (AdmeLOG) 1 UNIT/0.01 ML UNIT SC ×2 (11:34→20:15)
--- NOTE | 2024-12-28 16:11 | PC.SS ---
Rounding: Pending OC
--- NOTE | 2024-12-28 17:04 | ESPR_ITS ---
<Statement entered by Joyce Jane MD - 01/07/25 14:32> I reviewed above note and agree with findings and plans. I have also personally examined the patient with medicine team and went over assessment and plan with medical team including geotechnical intern and resident physician. Documentation for date of: 12/28/24 Subjective Subjective Interval history: No acute overnight events reported. Patient is seen and examined at bedside this morning. Patient is currently saturating. Endorses to feeling much better and pain is minimal. Nephrostomy tubes are in place patient's right side nephrostomy tube has no drainage left side has 400 cc nonbloody urine. Will contact IR tomorrow to flush the right side in case it is kinked or obstructed. Patient is pending transfer for antegrade stent placement. Patient has no other complaints, we will continue the management as is for now. Exam Vital Signs Temp Pulse Resp BP Pulse Ox O2 Del Method O2 Flow Rate 97.0 F 77 19 127/72 97 Room Air 2 12/28/24 12:00 12/28/24 16:00 12/28/24 12:00 12/28/24 14:09 12/28/24 12:00 12/28/24 12:00 12/26/24 16:00 Narrative Exam General: No acute distress, well nourished Eye: PERRL, EOMI, normal conjunctiva, no scleral icterus HENT: Normocephalic, atraumatic, hearing intact to conversation at normal volume, moist oral mucosa Neck: Supple, non-tender, no JVD, no lymphadenopathy Lungs: Non-labored respirations, symmetric chest rise, Clear to auscultate bilaterally Heart: Peripheral pulses intact bilaterally, Regular rate and Rhythm. Abdomen: Soft, non-tender, non-distended. Bilateral nephrostomy tube noted,RIGHT side have no output, left side have 400cc or non bloody output Musculoskeletal: Normal range of motion and strength Skin: Skin is warm, dry, no rashes or lesions. Psychiatric: Cooperative, appropriate mood and affect Neuro: Cranial nerves II-XII grossly intact. Strength 5/5 throughout. Sensations intact to light touch. Objective Labs 12/28/24 04:44 12/28/24 04:44 Labs: Laboratory Results - last 24 hr 12/28/24 04:44 WBC 12.1 H RBC 3.14 L Hgb 7.8 L Hct 25.2 L MCV 80 MCH 24.8 L MCHC 31.0 RDW Std Deviation 42.0 Plt Count 514 H Neut % (Auto) 64 Lymph % (Auto) 24 [place] % (Auto) 7 Eos % (Auto) 2 Baso % (Auto) 1 Neut # (Auto) 7.7 Lymph # (Auto) 2.9 [place] # (Auto) 0.9 H Eos # (Auto) 0.3 Baso # (Auto) 0.1 Immature Gran # (Auto) 0.27 H Absolute Nucleated RBC 0.02 H Immature Gran % 2 H Nucleated RBC % 0 Sodium 138 Potassium 3.9 Chloride 98 Carbon Dioxide 27.3 Anion Gap 13 BUN 41 H Creatinine 3.3 H Estim Creat Clear Calc 22.0 L eGFR 17 L BUN/Creatinine Ratio 12 Glucose 160 H Calculated Osmolality 288 Calcium 9.2 Corrected Calcium 9.2 Magnesium 2.0 Total Bilirubin 0.2 L AST < 8 ALT < 7 L Alkaline Phosphatase 85 Total Protein 6.7 Albumin 4.0 Globulin 2.7 Albumin/Globulin Ratio 1.5 Quality Measures Quality Measures VTE prophylaxis Assessment & Plan Assessment Current Active Medications: Generic Name Dose Route Start Last Admin Trade Name Freq PRN Reason Stop Dose Admin Acetaminophen 650 mg 12/19/24 18:23 12/26/24 12:08 Acetaminophen 325 Mg Tablet PO 01/09/25 23:47 650 mg Q6H PRN Administration PAIN 1-6 (mild-mod Buspirone HCl 10 mg 12/11/24 21:00 12/27/24 20:17 Buspirone Hcl 5 Mg Tablet PO 01/10/25 20:59 10 mg HS CLEMENTINE Administration Calcium Acetate 667 mg 12/13/24 12:00 12/28/24 11:34 Calcium Acetate 667 Mg Tablet PO 01/12/25 11:59 667 mg TIDWM CLEMENTINE Administration Carvedilol 25 mg 12/20/24 17:30 12/28/24 08:07 Carvedilol 12.5 Mg Tablet PO 01/19/25 17:29 25 mg BIDWM CLEMENTINE Administration Dextrose 25 ml 12/10/24 23:51 Dextrose 50%-Water Inj 50 Ml Syringe IV 01/09/25 23:50 Q15MIN PRN BG 50-70 responsive npo pt Dextrose 50 ml 12/10/24 23:51 12/13/24 11:33 Dextrose 50%-Water Inj 50 Ml Syringe IV 01/09/25 23:50 50 ml Q15MIN PRN Administration BG <50 OR BG <70 & pt unresponsive Famotidine 20 mg 12/19/24 09:00 12/28/24 08:07 Famotidine 20 Mg Tablet PO 01/18/25 08:59 20 mg QDAY CLEMENTINE Administration Ferrous Sulfate 325 mg 12/21/24 09:00 12/27/24 08:09 Ferrous Sulf 325 Mg Tablet PO 01/20/25 08:59 325 mg QOD CLEMENTINE Administration Glucagon 1 mg 12/10/24 23:51 Glucagon Inj 1 Mg Vial IM Q15MIN PRN BG <70, and no IV access Heparin Sodium (Porcine) 3,800 unit 12/16/24 12:29 12/20/24 12:20 Heparin Sod Inj 1000 Unit/Ml Vial 10 Ml INDWELLCAT 12/30/24 12:28 3,800 unit X1 PRN Administration DIALYSIS Hydralazine HCl 10 mg 12/19/24 09:12 Hydralazine Inj 20 Mg/Ml Vial IVP 01/18/25 09:11 Q6HR PRN SBP > 180 Hydralazine HCl 50 mg 12/20/24 14:00 12/28/24 14:09 Hydralazine Hcl 25 Mg Tablet PO 01/19/25 13:59 50 mg TID CLEMENTINE Administration Hydromorphone HCl 0.75 mg 12/27/24 09:08 12/28/24 06:35 Hydromorphone Inj 2 Mg/Ml Vial IVP 12/29/24 18:43 0.75 mg Q4HR PRN Administration Pain 7-10 or breakthrough Hydroxyzine HCl 25 mg 12/13/24 21:00 12/27/24 20:16 Hydroxyzine Hcl 25 Mg Tablet PO 01/12/25 20:59 25 mg HS CLEMENTINE Administration Insulin Glargine 18 unit 12/15/24 21:00 12/27/24 20:13 Insulin Glargine (Lantus) 5 Unit/0.05 Ml (Per 5 Units) SC 01/14/25 20:59 18 unit HS CLEMENTINE Administration Insulin Human Lispro 0 unit 12/19/24 21:00 12/28/24 16:53 Insulin Lispro (Admelog) 1 Unit/0.01 Ml Unit SC 01/18/25 20:59 Not Given ACHS CLEMENTINE Protocol Nifedipine 60 mg 12/16/24 14:00 12/28/24 08:06 Nifedipine Xl 30 Mg Tabcr PO 01/15/25 13:59 60 mg QDAY CLEMENTINE Administration Ondansetron HCl 4 mg 12/10/24 23:48 12/22/24 22:36 Ondansetron Inj 2 Mg/Ml Inj 2 Ml IVP 01/09/25 23:47 4 mg Q6H PRN Administration NAUSEA OR VOMITING Protocol Oxycodone/Acetaminophen 1 tab 12/27/24 09:09 12/28/24 11:42 Oxycodone/Apap 5/325 Tablet PO 01/01/25 09:08 1 tab Q6HR PRN Administration PAIN SCALE 4-6 (Moderate Sennosides 1 tab 12/16/24 14:00 12/28/24 08:07 Senna Tablet PO 01/15/25 13:59 1 tab QDAY CLEMENTINE Administration Protocol Sodium Chloride 3 ml 12/11/24 14:16 12/13/24 08:41 Sodium Chloride Rt Katherine 0.9% 3 Ml Nebu INH 01/10/25 14:15 3 ml PRN PRN Administration SOLN Plan 44-year-old female with past medical history of insulin-dependent type 2 diabetes, hypertension, GERD, history of valley fever presented to the ED on 12/10 with episode of left flank pain, nausea/vomiting and chills will be admitted for hypertensive emergency requiring close monitoring along with acute renal failure requiring urology and nephrology consultation and IV antibiotics for cystitis #Bladder mass, non-malignant #Bilateral Hydronephrosis s/p nephrostomy tube placement #Status post nephrostogram 12/26 -Cystoscopic examination by Urologist Dr. Friedman: found Bilateral hydronephrosis, large bladder mass occupying posterior bladder wall occupying the ureteral orifices. -After cystoscopy, patient noted that she had history of cervical cancer 3 years ago. -MRI abd/pelvis: Mild to moderate bilateral hydronephorsis, and dilated ureters extending to the bladder. -Per nephrology, the bladder mass is confined to the bladder. -Patient received bilatereal percutaneous nephrostomy tube placement on 12/19/2024 -12/24/2024 Creatinine is 3.8. Total Output is 4.3L. Right nephrostomy tube output is markedly decreased, with bloody urine noted in the drainage bag. Plan: -Patient underwent nephrostogramon 12/26, has satisfactory drainage from bilateral nephrostomy tubes. Right nephrostomy tube nephrostogram patient has shows that patient has extensive debris's in the renal collecting system. -Case was discussed with urologist who recommended anterograde stent placed by interventional radiologist, was discussed with interventional radiology, IR interventional radiologist informed that he is unable to perform the procedure, per interventional radiology there is extensive debris's, patient needs stent placement to improve drainage from nephrostomy tube as well. -Case was discussed with the urologist again urology said that the patient has extensive mass which is occlusive, and patient will need higher level of care interventional radiology procedure for anterograde stent placement. Transfer nurse was informed, transfer process initiated. - Transfer to higher level of care for interventional radiology to place anterograde stent. #Acute renal failure 2/2 Urinary Retention 2/2 Obstructive Uropathy Patient experienced acute renal failure, likely secondary to obstructive uropathy given bladder mass noted on cystoscopy report. Previous UA noted to have hematuria. Improving renal function with nephrostomy tubes in place. Diagnostics: -Repeat UA 12/14 Urine protein +1 Urine blood +1 RBC 5 -12/20/2024 Patient produced 4.2 L of urine . -12/22/2024 Patient's output was 1155 mL. Hematuria was observed in the output from the right nephrostomy tube, while the left nephrostomy output remained clear and unremarkable. Cr level of 3.8 Plan: -Nephrology consulted, Dr. Pierre, - Pending nuclear renal scan, IgA levels for IgA nephropathy, Hepatitis A/B titers, ANCA titers, pending results, appreciate recommendations -Avoid nephrotoxic agents -Renally dose medications -Replete electrolytes as needed and follow-up with morning labs -Currently, hemodialysis is on hold. #Acute urinary retention, improving #Bilateral hydronephrosis, likely secondary to obstruction #Cystitis #Complicated UTI, nephrolithiasis #Hematuria -On exam, patient no longer has left flank flank with CVA tenderness -CT abdomen pelvis shows a thick-walled cavitary lesion in the right middle lobe and a 22 mm pulmonary nodule in the anterior right lower lobe, numerous bilateral nonobstructing renal calculi, moderate bilateral hydronephrosis without calculi and cystitis -Based on CTAP presentation, urinary retention due to intake of meclizine was suspected as patient started to take it 1wk everyday prior to coming to the hospital. -Renal Ultrasound- Moderate bilateral hydronephrosis Plan: -Advised to stop taking meclizine. -Finished receiving IV ceftriaxone 2g IV qd (12/11-12/16). Rec IV ceftriaxone 1g IV qd (12/17-12/23) #Hypertensive emergency, improving #Hypertension Patient has significant history of hypertension on home antihypertensives Presenting to the ED with acute renal failure and elevated systolic pressure in the 200s Plan: - continue Nifedipine 30mg PO qd - Coreg 25 mg PO BID - Hydralazine 50mg PO TID #Insulin-dependent type 2 diabetes Pertinent labs: 06/2024 A1C 11.1 12/11/24 A1C 8.0 Patient apparently takes 30 units of long-acting insulin twice a day Plan: -Insulin Glargine 18 units at bedtime -Sliding scale #History of Valley Fever -CTAP(03/21/2024):30 mm thick-walled cavitary lesion partially visualized right midlung,, 22 mm pulmonary nodule anterior right lower lobe -CXR(07/16/2024): Poorly defined nodular density 18 mm in the right lower lobe, -CXR (12/10/2024):Opacity right base which may represent a pulmonary mass, 19 mm -CTAP(12/10/2024): thick walled 25 mm cavitary lesion in the right middle lobe and 22mm pulmonary nodule anterior right lower lobe Plan: -Fairly stable right lung pulmonary nodule. -Will continue to monitor. #GERD Chronic medical problems: All pertinent to the following presentation Plan: -Continue Pantoprazole 40 mg PO QD Health Maintenance: Lines: PIV Diet: Renal and carb consistent low Bowel: Senna GI prophylaxis: Pantoprazole 40 mg PO QD DVT prophylaxis: SCD Dispo: Pending transfer Code: Full Assessment and plan discussed with my attending physician Dr. Buck Schwab (PGY-2)- Internal medicine resident
--- NOTE | 2024-12-28 17:31 | ESPR_ITS ---
Documentation for date of: 12/28/24 Subjective Subjective Interval history: Ms. Cedillo is a 44-year-old female with past medical history of insulin- dependent type 2 diabetes, hypertension, GERD, history of valley fever untreated presented to the ED on 12/10 with episode of left flank pain, nausea/vomiting and chills. Patient states that the chills started roughly an hour ago but that she has been having progressively worsening left flank pain radiating to her back. Patient denies having any dysuria but does state that she has been having lilia hematuria for several days. Patient denies having any fevers but she does state that she has been having chills. Patient also complains of suprapubic pain and mentions that she feels pain near her ovaries. Patient has not seen PCP regarding the symptoms but she was seen several weeks ago for GERD like symptoms and was given medications. Patient otherwise denies having any concerning symptoms such as chest pain, dizziness, shortness of breath. In the ED, patient presented in hypertensive emergency with a blood pressure 187/83, other vitals wnl. Pertinent lab findings included WBC of 9, hemoglobin 7.9, potassium of 5.4, BUN of 31, creatinine 3.9, EGFR of 14, magnesium 1.6, troponin less than 0.02, BNP of 235, urinalysis shows hematuria and mild pyuria but no bacteria. Chest x-ray shows mild prominence of ventricles along with opacity in the right base concerning for pulmonary mass, EKG shows sinus rhythm without any concerning ST changes and CT abdomen pelvis shows a thick-walled cavitary lesion in the right middle lobe and a 22 mm pulmonary nodule in the anterior right lower lobe, numerous bilateral nonobstructing renal calculi, moderate bilateral hydronephrosis without calculi and cystitis. Patient will be admitted for hypertensive emergency requiring close monitoring along with acute renal failure requiring urology and nephrology consultation and IV antibiotics for cystitis Upon seeing the patient currently, she is on Mg Sulfate, Ceftriaxone, Carvedilol 6.25 mg, and maintenance IV fluids with a slightly improved blood pressure of 168/88 with the rest of vitals wnl. Patient states she is currently feeling much better now. States that she still has some nausea, L flank pain radiating to back and some dizziness when she stands up for too long. Patient states she has noticed blood in her urine today and ever since March. Patient endorses having bowel movements. Patient denies fever, headache, chest pain, shortness of breath, vomiting. 12/26/2024: No acute events overnight, patient seen and examined at bedside. pt reports R lower abdominal cramping pain, pt states she has leaking from L nephrostomy tube, pending IR nephrostomy tube assesment. Pt continues to have minimal R nephrostomy tube output (5-10 cc) and good L nephrostomy tube output(1450 cc) , will HOLD HD today. Pt denies fever, chest pain, shortness of breath. Biopsy of Bladder mass is benign. per conversation with urologist and Dr. Pineda, plan is for anterograde stents through the nephrostomy tubes and through the bladder mass. 12/27/2024: No acute events overnight, patient seen and examined at bedside. On exam patient has right lower quadrant pain on palpation. Patient states that she has experienced reduced leaking from nephrostomy tubes. Right nephrostomy tube output 350 cc, left nephrostomy tube output 1325. HOLD HD today, Cr 3.4, BUN 42, K, 4.8 12/28/2024 patient resting comfortably. at bedside. Denies any depression today. Blood sugar 145. Blood pressure 108/58, WBC 12.1, hemoglobin 7.8, platelets 514. Sodium 138, potassium 3.9, BUN 41, creatinine 3.3, GFR 17, calcium 9.2, magnesium 2, LFTs normal, albumin 4. Her iron dose she had a 1400ml out. Hold dialysis. Pending transfer to tertiary care center for anterograde stents and a bladder mass removal. Review of Systems Review of Systems Narrative Review of Systems: CONSTITUTIONAL: Patient denies any fever, chills. HEENT: Denies any visual disturbances or hearing problems. CARDIOVASCULAR: Patient denies any chest pain, shortness of breath, swelling in the lower extremities. PULMONARY: Patient denies any shortness of breath, cough. GASTROINTESTINAL: Patient denies any abdominal pain, constipation, nausea, vomiting, diarrhea. GENITOURINARY: Patient denies any urinary symptoms of burning or frequency or hematuria, denies any form in the urine. SKIN: Denies any rash. MUSCULOSKELETAL: Complaining of back pain at the site of nephrostomy tubes NEUROLOGICAL: Denies any neurological problems of strokes, seizures or confusion. Denies any memory problems. PSYCHIATRIC: Denies any depression or anxiety. LYMPHATICS : No lymphadenopathy Exam Vital Signs Temp Pulse Resp BP Pulse Ox O2 Del Method O2 Flow Rate 36.1 C 75 19 108/58 L 97 Room Air 2 12/28/24 12:00 12/28/24 17:13 12/28/24 12:00 12/28/24 17:13 12/28/24 12:00 12/28/24 12:00 12/26/24 16:00 Narrative Exam GENERAL APPEARANCE: Patient seems to be comfortable, adequately hydrated and nourished. HEENT: Poor dentition NECK: Neck supple, no JVD or bruit CARDIOVASCULAR: Heart regular, no murmurs LUNGS/CHEST: Chest clear to auscultation. No rales, rhonchi, wheezing ABDOMEN: Soft, nontender, nondistended. No masses. Normal bowel sounds. EXTREMITIES: No edema, clubbing or cyanosis. SKIN: Skin exam normal without any rashes. Right IJ PermCath MUSCULOSKELETAL: Bilateral nephrostomy tubes, Cheng catheter+ PSYCHIATRIC: Normal mood, affect LYMPHATICS: No lymphadenopathy noted NEUROLOGICAL : No neurological deficits Objective Labs 12/28/24 04:44 12/28/24 04:44 Labs: Laboratory Results - last 24 hr 12/28/24 04:44 WBC 12.1 H RBC 3.14 L Hgb 7.8 L Hct 25.2 L MCV 80 MCH 24.8 L MCHC 31.0 RDW Std Deviation 42.0 Plt Count 514 H Neut % (Auto) 64 Lymph % (Auto) 24 [place] % (Auto) 7 Eos % (Auto) 2 Baso % (Auto) 1 Neut # (Auto) 7.7 Lymph # (Auto) 2.9 [place] # (Auto) 0.9 H Eos # (Auto) 0.3 Baso # (Auto) 0.1 Immature Gran # (Auto) 0.27 H Absolute Nucleated RBC 0.02 H Immature Gran % 2 H Nucleated RBC % 0 Sodium 138 Potassium 3.9 Chloride 98 Carbon Dioxide 27.3 Anion Gap 13 BUN 41 H Creatinine 3.3 H Estim Creat Clear Calc 22.0 L eGFR 17 L BUN/Creatinine Ratio 12 Glucose 160 H Calculated Osmolality 288 Calcium 9.2 Corrected Calcium 9.2 Magnesium 2.0 Total Bilirubin 0.2 L AST < 8 ALT < 7 L Alkaline Phosphatase 85 Total Protein 6.7 Albumin 4.0 Globulin 2.7 Albumin/Globulin Ratio 1.5 Assessment & Plan Additional Assessment & Plan Additional Plan: Kacy Cedillo is a 44-year-old female with past medical history of insulin-dependent type 2 diabetes, hypertension, GERD, history of valley fever untreated presented to the ED on 12/10 with episode of left flank pain, nausea/vomiting and chills will be admitted for hypertensive emergency requiring close monitoring along with acute renal failure requiring urology and nephrology consultation and IV antibiotics for cystitis. #Acute kidney injury --biopsy-proven ATN superimposed on obstructive uropathy. CT showed numerous b/l nonobstructing renal caliculi, mod b/l hydronephrosis wo ureteral calculi, cystitis pattern Patient received a kidney biopsy which showed ATN/AIN and underlying diabetes/hypertensive nephrosclerosis Bilateral percutaneous nephrostomy tube placed Last HD: 12/20 12/24: Bladder bx and limited bladder resection (large mass occupying both ureteral orifice), L nephrostogram done showing L ureter stricture. -No HD today, plan for outpatient HD -cheng catheter in place with scant drainage. -Needs outpatient tertiary care center evaluation for large bladder tumor, B ladder mass is benign, will need antegrade stents -Strict I/O's -Avoid nephrotoxic agents -Renally dose medications -Replete electrolytes as needed and follow-up with morning labs #Acute urinary retention #Bilateral hydronephrosis #Cystitis #Complicated UTI, nephrolithiasis #Hematuria #Hypertensive emergency, improving--in fact on the lower side #Hypertension #Insulin-dependent type 2 diabetes #GERD -Managed per primary team If creatinine continues to improve will DC dialysis catheter in a.m.
[2024-12-28] MEDS: INSULIN GLARGINE (Lantus) 5 UNIT/0.05 ML (PER 5 UNITS) 18 UNIT SC (20:15)
[2024-12-29] VITALS (16 sets, daily range): BP systolic 110–161; BP diastolic 54–82; PULSE 68–91; RESP 12–19; TEMP 36.3–38.3; O2SAT 94–97
--- NOTE | 2024-12-29 | XR_ITS ---
Examination: Irritation nephrostomy tubes Date and time: December 29, 2024 1400 hours INDICATIONS: Bladder tumor, status post bilateral percutaneous nephrostomies for decompression of hydronephrosis TECHNIQUE AND FINDINGS: Successful flushing of the left nephrostogram catheter Wire guide passed under fluoroscopic guidance to open the right nephrostomy tube, however no significant ability to flush this catheter IMPRESSION: Wire guide passed under fluoroscopic guidance to open the nephrostomy tube with no significant ability to flush this catheter Consider order to attempt to replace the nephrostomy catheter on the right as clinically warranted
--- NOTE | 2024-12-29 | XR_ITS ---
Examination: IR right nephrostogram Fluoroscopy AP abdomen 2 views Date and time: December 29, 2024 1439 hours INDICATIONS: Bladder cancer diagnosis with obstruction to the renal collecting systems, nonfunctioning right nephrostomy catheter FINDINGS: Hand injection 5 cc Cystografin with fluoroscopic imaging The catheter is significantly clogged IMPRESSION: Consider replacing the right percutaneous nephrostomy catheter
[2024-12-29] MEDS: HYDROmorphone INJ 2 MG/ML VIAL 0.75 MG IVP ×4 (03:50→20:49)
[2024-12-29 06:24] LABS: Basophils # (Auto) 0.1 Thou/mm3 (0.0-0.2); Basophils % (Auto) 1 % (0-2.5); Eosinophils # (Auto) 0.4 Thou/mm3 (0.0-0.5); Eosinophils % (Auto) 3 % (0-10); Hematocrit 26.8 % (36.0-46.0); Immature Granulocytes Auto 0.24 Thou/mm3 (0.00-0.00); Lymphocytes # (Auto) 3.1 Thou/mm3 (1.0-4.8); Lymphocytes % (Auto) 24 % (10-50); Mean Corpuscular HGB Conc 31.3 g/dl (31.0-37.0); Mean Corpuscular Hemoglobin 25.0 pg (25.0-35.0); Mean Corpuscular Volume 80 fL (80-100); Monocytes # (Auto) 0.8 Thou/mm3 (0.0-0.8); Monocytes % (Auto) 7 % (0-12); Neutrophils # (Auto) 8.2 Thou/mm3 (1.8-7.7); Neutrophils % (Auto) 64 % (37-80); Nucleated Red Blood Cell # 0.00 Thou/mm3 (0.00-0.00); Nucleated Red Blood Cell % 0 /100 WBC (0); Platelet Count 533 Thou/mm3 (140-440); RDW Standard Deviation 40.6 fL (36.4-46.3); Red Blood Count 3.36 Miln/mm3 (4.00-5.20); White Blood Count 12.8 Thou/mm3 (3.6-11.0)
[2024-12-29 06:42] LABS: Hemoglobin 8.4 g/dL (12.0-16.0)
[2024-12-29 07:06] LABS: Alanine Aminotransferase < 7 U/L (10-49); Albumin, Serum 4.0 gm/dL (3.5-5.0); Albumin/Globulin Ratio 1.4 (1.2-2.2); Alkaline Phosphatase 87 U/L (46-116); Anion Gap 12 (7-16); Aspartate Amino Transferase < 10 U/L (0-34); BUN/Creatinine Ratio 12 Ratio (12-20); Bilirubin,Total 0.2 mg/dL (0.3-1.2); Blood Urea Nitrogen 38 mg/dL (9-23); Calcium 9.1 mg/dL (8.3-10.6); Calcium (Corrected) 9.1 mg/dL (8.5-10.1); Carbon Dioxide 26.9 mMol/L (20.0-31.0); Chloride 98 mMol/L (98-107); Creatinine (Component) 3.2 mg/dL (0.6-1.3); Estimated Creatinine Clearance 22.7 mL/min (>60); Globulin 2.9 gm/dL (2.3-3.5); Glucose 126 mg/dL (74-106); Magnesium 1.5 mg/dL (1.6-2.6); Osmolality,Calculated 284 (275-295); Phosphorous 4.9 mg/dL (2.4-5.1); Potassium 3.8 mMol/L (3.4-5.1); Sodium 137 mMol/L (136-145); Total Protein 6.9 gm/dL (5.7-8.2); eGFR 18 See Note
--- NOTE | 2024-12-29 07:38 | ESPR_ITS ---
Documentation for date of: 12/29/24 Subjective Subjective Interval history: Ms. Cedillo is a 44-year-old female with past medical history of insulin- dependent type 2 diabetes, hypertension, GERD, history of valley fever untreated presented to the ED on 12/10 with episode of left flank pain, nausea/vomiting and chills. Patient states that the chills started roughly an hour ago but that she has been having progressively worsening left flank pain radiating to her back. Patient denies having any dysuria but does state that she has been having lilia hematuria for several days. Patient denies having any fevers but she does state that she has been having chills. Patient also complains of suprapubic pain and mentions that she feels pain near her ovaries. Patient has not seen PCP regarding the symptoms but she was seen several weeks ago for GERD like symptoms and was given medications. Patient otherwise denies having any concerning symptoms such as chest pain, dizziness, shortness of breath. In the ED, patient presented in hypertensive emergency with a blood pressure 187/83, other vitals wnl. Pertinent lab findings included WBC of 9, hemoglobin 7.9, potassium of 5.4, BUN of 31, creatinine 3.9, EGFR of 14, magnesium 1.6, troponin less than 0.02, BNP of 235, urinalysis shows hematuria and mild pyuria but no bacteria. Chest x-ray shows mild prominence of ventricles along with opacity in the right base concerning for pulmonary mass, EKG shows sinus rhythm without any concerning ST changes and CT abdomen pelvis shows a thick-walled cavitary lesion in the right middle lobe and a 22 mm pulmonary nodule in the anterior right lower lobe, numerous bilateral nonobstructing renal calculi, moderate bilateral hydronephrosis without calculi and cystitis. Patient will be admitted for hypertensive emergency requiring close monitoring along with acute renal failure requiring urology and nephrology consultation and IV antibiotics for cystitis Upon seeing the patient currently, she is on Mg Sulfate, Ceftriaxone, Carvedilol 6.25 mg, and maintenance IV fluids with a slightly improved blood pressure of 168/88 with the rest of vitals wnl. Patient states she is currently feeling much better now. States that she still has some nausea, L flank pain radiating to back and some dizziness when she stands up for too long. Patient states she has noticed blood in her urine today and ever since March. Patient endorses having bowel movements. Patient denies fever, headache, chest pain, shortness of breath, vomiting. 12/26/2024: No acute events overnight, patient seen and examined at bedside. pt reports R lower abdominal cramping pain, pt states she has leaking from L nephrostomy tube, pending IR nephrostomy tube assesment. Pt continues to have minimal R nephrostomy tube output (5-10 cc) and good L nephrostomy tube output(1450 cc) , will HOLD HD today. Pt denies fever, chest pain, shortness of breath. Biopsy of Bladder mass is benign. per conversation with urologist and Dr. Pineda, plan is for anterograde stents through the nephrostomy tubes and through the bladder mass. 12/27/2024: No acute events overnight, patient seen and examined at bedside. On exam patient has right lower quadrant pain on palpation. Patient states that she has experienced reduced leaking from nephrostomy tubes. Right nephrostomy tube output 350 cc, left nephrostomy tube output 1325. HOLD HD today, Cr 3.4, BUN 42, K, 4.8 12/28/2024 patient resting comfortably. at bedside. Denies any depression today. Blood sugar 145. Blood pressure 108/58, WBC 12.1, hemoglobin 7.8, platelets 514. Sodium 138, potassium 3.9, BUN 41, creatinine 3.3, GFR 17, calcium 9.2, magnesium 2, LFTs normal, albumin 4. Her iron dose she had a 1400ml out. Hold dialysis. Pending transfer to tertiary care center for anterograde stents and a bladder mass removal. 12/29/2024: Patient seen and examined at bedside. She is sitting upright at the edge of the bed crying due to pain in RLQ that extends towards R groin and leg, likely 2/2 to bladder mass.patient states that pain is not improved with oxycodone, but dilauded helps. Blood sugar 131, BP 143/80, WBC 12.8, Hgb stable, Bilateral nephrostomy tubes, R tube is not draining, Left tube is draining clear yellow urine 900cc. Cheng catheter with minimal output Hold HD, remove HD catheter, pain control, pending transfer to tertiary care center for anterograde stents and bladder mass removal. Exam Vital Signs Temp Pulse Resp BP Pulse Ox O2 Del Method O2 Flow Rate 97.6 F 79 14 143/80 H 96 Room Air 2 12/29/24 07:22 12/29/24 07:22 12/29/24 07:22 12/29/24 07:22 12/29/24 07:22 12/29/24 07:22 12/26/24 16:00 Narrative Exam GENERAL APPEARANCE: Patient seems to be very uncomfortable, adequately hydrated and nourished. HEENT: Poor dentition NECK: Neck supple, no JVD or bruit CARDIOVASCULAR: well perfused on visual inspection LUNGS/CHEST: nl work of breathing. no accessory muscle usage. ABDOMEN: c/o RLQ pain, tender to palpation. Soft, non distended EXTREMITIES: No edema, clubbing or cyanosis. SKIN: Skin exam normal without any rashes. Right IJ PermCath MUSCULOSKELETAL: Bilateral nephrostomy tubes, Cheng catheter+ PSYCHIATRIC: Normal mood, affect LYMPHATICS: No lymphadenopathy noted NEUROLOGICAL : No neurological deficits Objective Labs 12/30/24 05:23 12/30/24 05:23 Labs: Laboratory Results - last 24 hr 12/29/24 05:30 WBC 12.8 H RBC 3.36 L Hgb 8.4 L Hct 26.8 L MCV 80 MCH 25.0 MCHC 31.3 RDW Std Deviation 40.6 Plt Count 533 H Neut % (Auto) 64 Lymph % (Auto) 24 Cherry % (Auto) 7 Eos % (Auto) 3 Baso % (Auto) 1 Neut # (Auto) 8.2 H Lymph # (Auto) 3.1 Cherry # (Auto) 0.8 Eos # (Auto) 0.4 Baso # (Auto) 0.1 Immature Gran # (Auto) 0.24 H Absolute Nucleated RBC 0.00 Immature Gran % 2 H Nucleated RBC % 0 Sodium 137 Potassium 3.8 Chloride 98 Carbon Dioxide 26.9 Anion Gap 12 BUN 38 H Creatinine 3.2 H Estim Creat Clear Calc 22.7 L eGFR 18 L BUN/Creatinine Ratio 12 Glucose 126 H Calculated Osmolality 284 Calcium 9.1 Corrected Calcium 9.1 Phosphorus 4.9 Magnesium 1.5 L Total Bilirubin 0.2 L AST < 10 ALT < 7 L Alkaline Phosphatase 87 Total Protein 6.9 Albumin 4.0 Globulin 2.9 Albumin/Globulin Ratio 1.4 Quality Measures Quality Measures VTE prophylaxis Assessment & Plan Assessment Current Active Medications: Generic Name Dose Route Start Last Admin Trade Name Freq PRN Reason Stop Dose Admin Acetaminophen 650 mg 12/19/24 18:23 12/26/24 12:08 Acetaminophen 325 Mg Tablet PO 01/09/25 23:47 650 mg Q6H PRN Administration PAIN 1-6 (mild-mod Buspirone HCl 10 mg 12/11/24 21:00 12/28/24 20:14 Buspirone Hcl 5 Mg Tablet PO 01/10/25 20:59 10 mg HS CLEMENTINE Administration Carvedilol 25 mg 12/20/24 17:30 12/28/24 17:13 Carvedilol 12.5 Mg Tablet PO 01/19/25 17:29 Not Given BIDWM CLEMENTINE Dextrose 25 ml 12/10/24 23:51 Dextrose 50%-Water Inj 50 Ml Syringe IV 01/09/25 23:50 Q15MIN PRN BG 50-70 responsive npo pt Dextrose 50 ml 12/10/24 23:51 12/13/24 11:33 Dextrose 50%-Water Inj 50 Ml Syringe IV 01/09/25 23:50 50 ml Q15MIN PRN Administration BG <50 OR BG <70 & pt unresponsive Famotidine 20 mg 12/19/24 09:00 12/28/24 08:07 Famotidine 20 Mg Tablet PO 01/18/25 08:59 20 mg QDAY CLEMENTINE Administration Ferrous Sulfate 325 mg 12/29/24 09:00 Ferrous Sulf 325 Mg Tablet PO 01/28/25 08:59 DAILY CLEMENTINE Glucagon 1 mg 12/10/24 23:51 Glucagon Inj 1 Mg Vial IM Q15MIN PRN BG <70, and no IV access Heparin Sodium (Porcine) 3,800 unit 12/16/24 12:29 12/20/24 12:20 Heparin Sod Inj 1000 Unit/Ml Vial 10 Ml INDWELLCAT 12/30/24 12:28 3,800 unit X1 PRN Administration DIALYSIS Hydralazine HCl 10 mg 12/19/24 09:12 Hydralazine Inj 20 Mg/Ml Vial IVP 01/18/25 09:11 Q6HR PRN SBP > 180 Hydralazine HCl 50 mg 12/20/24 14:00 12/29/24 05:13 Hydralazine Hcl 25 Mg Tablet PO 01/19/25 13:59 50 mg TID CLEMENTINE Administration Hydromorphone HCl 0.75 mg 12/27/24 09:08 12/29/24 03:50 Hydromorphone Inj 2 Mg/Ml Vial IVP 12/29/24 18:43 0.75 mg Q4HR PRN Administration Pain 7-10 or breakthrough Hydroxyzine HCl 25 mg 12/13/24 21:00 12/28/24 20:15 Hydroxyzine Hcl 25 Mg Tablet PO 01/12/25 20:59 25 mg HS CLEMENTINE Administration Insulin Glargine 18 unit 12/15/24 21:00 12/28/24 20:15 Insulin Glargine (Lantus) 5 Unit/0.05 Ml (Per 5 Units) SC 01/14/25 20:59 18 unit HS CLEMENTINE Administration Insulin Human Lispro 0 unit 12/19/24 21:00 12/28/24 20:15 Insulin Lispro (Admelog) 1 Unit/0.01 Ml Unit SC 01/18/25 20:59 2 unit ACHS CLEMENTINE Administration Protocol Ondansetron HCl 4 mg 12/10/24 23:48 12/22/24 22:36 Ondansetron Inj 2 Mg/Ml Inj 2 Ml IVP 01/09/25 23:47 4 mg Q6H PRN Administration NAUSEA OR VOMITING Protocol Oxycodone/Acetaminophen 1 tab 12/27/24 09:09 12/28/24 19:40 Oxycodone/Apap 5/325 Tablet PO 01/01/25 09:08 1 tab Q6HR PRN Administration PAIN SCALE 4-6 (Moderate Sennosides 1 tab 12/16/24 14:00 12/28/24 08:07 Senna Tablet PO 01/15/25 13:59 1 tab QDAY CLEMENTINE Administration Protocol Sodium Chloride 3 ml 12/11/24 14:16 12/13/24 08:41 Sodium Chloride Rt Katherine 0.9% 3 Ml Nebu INH 01/10/25 14:15 3 ml PRN PRN Administration SOLN Plan Kacy Cedillo is a 44-year-old female with past medical history of insulin-dependent type 2 diabetes, hypertension, GERD, history of valley fever untreated presented to the ED on 12/10 with episode of left flank pain, nausea/vomiting and chills will be admitted for hypertensive emergency requiring close monitoring along with acute renal failure requiring urology and nephrology consultation and IV antibiotics for cystitis. #Acute kidney injury --biopsy-proven ATN superimposed on obstructive uropathy. CT showed numerous b/l nonobstructing renal caliculi, mod b/l hydronephrosis wo ureteral calculi, cystitis pattern Patient received a kidney biopsy which showed ATN/AIN and underlying diabetes/hypertensive nephrosclerosis Bilateral percutaneous nephrostomy tube placed, L draining well, R with minimal drainage likely 2/2 debris . 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 BUN 38, Cr 3.2 (downtrending) good UOP through nephrostomy tube, L>R -No HD today, recommend the removal of HD catheter. -cheng catheter in place with scant drainage. -Needs outpatient tertiary care center evaluation for large bladder tumor, B ladder mass is benign, will need antegrade stents -Strict I/O's -Avoid nephrotoxic agents -Renally dose medications -Replete electrolytes as needed and follow-up with morning labs -pain managemnt: per primary team. oxy/apap and dilaudid, pt reports minimal relief with oxy/apap #Acute urinary retention #Bilateral hydronephrosis #Cystitis #Complicated UTI, nephrolithiasis #Hematuria #Hypertensive emergency, improving--in fact on the lower side #Hypertension #Insulin-dependent type 2 diabetes #GERD -Managed per primary team Plan discussed with nephrology attending Dr. Miriam Kirk MD Internal Medicine PGY-1 Attending Provider Attestation/Addendum Patient seen and examined with resident physician Dr. Kirk. Note reviewed, agree with findings and recommendations. Patient with bilateral nephrostomy tubes for obstructive uropathy. Left tube seems to be making good urine. Right tube blocked. Was adjusted twice already. She has a Cheng catheter. Complaining of lower pelvic pain. On Dilaudid [id number]. Pending transfer to higher level of care for anterograde stents and bladder tumor removal. Urine output improving. Creatinine stable. Hold off on dialysis. Suspect ATN is improving
[2024-12-29] MEDS: FERROUS SULF 325 MG TABLET PO (08:08)
[2024-12-29] MEDS: FAMOTIDINE 20 MG TABLET PO (08:08)
--- NOTE | 2024-12-29 08:32 | PC.CC ---
Addendum entered by Randolph Hernandez RN 12/29/24 17:49: 1703: received call back from [facility]/ [facility]. They have no beds available at this time. But pt will be waitlisted for a bed however pt is not accepted yet. She will check again at 2030. Addendum entered by Randolph Hernandez RN 12/29/24 16:41: 1629: received call back from [facility]/ [facility], condition update provided. She will present case and call back. Addendum entered by Randolph Hernandez RN 12/29/24 16:25: 1617: Received call back from Matthew Navarro, unable to review today, however can review tomorrow morning after 0900. Transfer nurse will call aftr 0900 tomorrow 1610: Called [facility], re-initated transfer request. Our auth provided with Sydnee's contact information . Nurse will review case and call back. 1605: Called [facility], per Chantal. IR is not a transferrable service and will decline due to capacity. 1551: called [facility] to f/u on clinicals. left VM. 1539: sent clinicals and imaging to [facility]. Addendum entered by Randolph Hernandez RN 12/29/24 15:36: 1519: called [facility], initated transfer request. Resent clinicals. 1434: received call back from Aguilar with [facility] to inform us that Dr. Forbes declined patient. Stated since there is drainage to both nephrostomy tubes, he will follow as outpatient at the [facility] in [place]. I informed Dr. Jones, he stated that there is complete blockage to the right nephrostomy tube and will have to be flushed. I called Aguilar back to initiate a peer to peer, however Dr. Forbes declined as he is going into the OR. [facility] closed case. Addendum entered by Randolph Hernandez RN 12/29/24 14:33: 1429: received call back from Donna CUTLER, Dr. Forbes - urology is already reviewing the case with [facility]. Donna stated if Dr. Forbes accepts the patient, he will accept with [facility]. Donna closing case. 1423: received call from Donna w/ [facility], she stated IR is unable to do the procedure and that it would be urology. She initiated request with Urology. Addendum entered by Randolph Hernandez RN 12/29/24 13:30: 1328: Called and spoke to Aguilar at [facility], provided our hosptial auth as Sydnee w/ [facility] directed and her contact information. Aguilar stated they will initiate the process for review. Addendum entered by Randolph Hernandez RN 12/29/24 11:52: 1130: spoke to Donna with [facility], transfer request initiated. She will have nurse review and call back. 1123: received call from Sydnee with [facility], she stated we can provide our hospital auth. She asked if we had tried to transfer to contracted facilities such as [facility], [facility], and [facility]. I informed her we did not. Sent clinicals to these facilities. Addendum entered by Randolph Hernandez RN 12/29/24 09:45: 0916: called [facility] 800 number, spoke to Ria, she confirmed receipt of auth request today and is still being reviewed. ref# [id number] Original Note: 0824: received call from Aguilar w/ [facility], informed her we are still needing transfer and we are waiting for insurance auth. She will keep case open. 0815: called [facility] to f/u on authorization for [facility] transfer, left VM. waiting for response. Sent email to Karen Escoto (car manager) for updated contact information as [facility] [place] is out of service . Received email stating to fax clinicals to [phone] for auth request. Clinicals faxed. waiting for response.
--- NOTE | 2024-12-29 09:21 | PC.SS ---
Follow up note: Higher level of care transfer.
[2024-12-29] MEDS: Magnesium Sulfate 4 GM Ivpb 4 GM/50 ML BAG IV (11:01)
--- NOTE | 2024-12-29 11:28 | ESPR_ITS ---
<Statement entered by Joyce Jane MD - 01/07/25 14:33> I reviewed above note and agree with findings and plans. I have also personally examined the patient with medicine team and went over assessment and plan with medical team including international marketing coordinator and resident physician. Documentation for date of: 12/29/24 Subjective Subjective Interval history: Patient seen and examined at bedside. Patient has had minimal drainage from nephrostomy site bilaterally, nephrostomy tubes were flushed via nephrostogram previously by interventional radiology. Discussed with IR, IR will schedule patient for bilateral nephrostogram today to flush bilateral nephrostomy tubes. Case was discussed with our urologist Dr. Friedman previously who did recommend that patient needs a anterograde stent which needs to be placed by interventional radiology. The procedure is out of scope for the interventional radiologist at our facility, hence the transfer process was initiated. Patient has extensive debris which keeps leading to blockage of nephrostomy tubes recurrently, patient needs higher level of care. Pending transfer. Nephrology recommends to remove hemodialysis catheter, will hold off on removal for now, will monitor renal function considering patient has blockage of right nephrostomy tube. Exam Vital Signs Temp Pulse Resp BP Pulse Ox O2 Del Method O2 Flow Rate 97.6 F 79 14 143/80 H 96 Room Air 2 12/29/24 07:22 12/29/24 08:08 12/29/24 07:22 12/29/24 08:08 12/29/24 07:22 12/29/24 07:22 12/26/24 16:00 Narrative Exam General: No acute distress, well nourished Eye: PERRL, EOMI, normal conjunctiva, no scleral icterus HENT: Normocephalic, atraumatic, hearing intact to conversation at normal volume, moist oral mucosa Neck: Supple, non-tender, no JVD, no lymphadenopathy Lungs: Non-labored respirations, symmetric chest rise, Clear to auscultate bilaterally Heart: Peripheral pulses intact bilaterally, Regular rate and Rhythm. Abdomen: Soft, non-tender, non-distended. Bilateral nephrostomy tube noted,RIGHT side have no output, left side have 100cc or non bloody output Musculoskeletal: Normal range of motion and strength Skin: Skin is warm, dry, no rashes or lesions. Psychiatric: Cooperative, appropriate mood and affect Neuro: Cranial nerves II-XII grossly intact. Strength 5/5 throughout. Sensations intact to light touch. Objective Labs 12/29/24 05:30 12/29/24 05:30 Labs: Laboratory Results - last 24 hr 12/29/24 05:30 WBC 12.8 H RBC 3.36 L Hgb 8.4 L Hct 26.8 L MCV 80 MCH 25.0 MCHC 31.3 RDW Std Deviation 40.6 Plt Count 533 H Neut % (Auto) 64 Lymph % (Auto) 24 Daniels % (Auto) 7 Eos % (Auto) 3 Baso % (Auto) 1 Neut # (Auto) 8.2 H Lymph # (Auto) 3.1 Daniels # (Auto) 0.8 Eos # (Auto) 0.4 Baso # (Auto) 0.1 Immature Gran # (Auto) 0.24 H Absolute Nucleated RBC 0.00 Immature Gran % 2 H Nucleated RBC % 0 Sodium 137 Potassium 3.8 Chloride 98 Carbon Dioxide 26.9 Anion Gap 12 BUN 38 H Creatinine 3.2 H Estim Creat Clear Calc 22.7 L eGFR 18 L BUN/Creatinine Ratio 12 Glucose 126 H Calculated Osmolality 284 Calcium 9.1 Corrected Calcium 9.1 Phosphorus 4.9 Magnesium 1.5 L Total Bilirubin 0.2 L AST < 10 ALT < 7 L Alkaline Phosphatase 87 Total Protein 6.9 Albumin 4.0 Globulin 2.9 Albumin/Globulin Ratio 1.4 Quality Measures Quality Measures VTE prophylaxis Assessment & Plan Assessment Current Active Medications: Generic Name Dose Route Start Last Admin Trade Name Freq PRN Reason Stop Dose Admin Acetaminophen 650 mg 12/19/24 18:23 12/26/24 12:08 Acetaminophen 325 Mg Tablet PO 01/09/25 23:47 650 mg Q6H PRN Administration PAIN 1-6 (mild-mod Protocol Buspirone HCl 10 mg 12/11/24 21:00 12/28/24 20:14 Buspirone Hcl 5 Mg Tablet PO 01/10/25 20:59 10 mg HS CLEMENTINE Administration Carvedilol 25 mg 12/20/24 17:30 12/29/24 08:08 Carvedilol 12.5 Mg Tablet PO 01/19/25 17:29 25 mg BIDWM CLEMENTINE Administration Dextrose 25 ml 12/10/24 23:51 Dextrose 50%-Water Inj 50 Ml Syringe IV 01/09/25 23:50 Q15MIN PRN BG 50-70 responsive npo pt Dextrose 50 ml 12/10/24 23:51 12/13/24 11:33 Dextrose 50%-Water Inj 50 Ml Syringe IV 01/09/25 23:50 50 ml Q15MIN PRN Administration BG <50 OR BG <70 & pt unresponsive Famotidine 20 mg 12/19/24 09:00 12/29/24 08:08 Famotidine 20 Mg Tablet PO 01/18/25 08:59 20 mg QDAY CLEMENTINE Administration Ferrous Sulfate 325 mg 12/29/24 09:00 12/29/24 08:08 Ferrous Sulf 325 Mg Tablet PO 01/28/25 08:59 325 mg DAILY CLEMENTINE Administration Glucagon 1 mg 12/10/24 23:51 Glucagon Inj 1 Mg Vial IM Q15MIN PRN BG <70, and no IV access Heparin Sodium (Porcine) 3,800 unit 12/16/24 12:29 12/20/24 12:20 Heparin Sod Inj 1000 Unit/Ml Vial 10 Ml INDWELLCAT 12/30/24 12:28 3,800 unit X1 PRN Administration DIALYSIS Hydralazine HCl 10 mg 12/19/24 09:12 Hydralazine Inj 20 Mg/Ml Vial IVP 01/18/25 09:11 Q6HR PRN SBP > 180 Hydralazine HCl 50 mg 12/20/24 14:00 12/29/24 05:13 Hydralazine Hcl 25 Mg Tablet PO 01/19/25 13:59 50 mg TID CLEMENTINE Administration Hydromorphone HCl 0.75 mg 12/27/24 09:08 12/29/24 08:07 Hydromorphone Inj 2 Mg/Ml Vial IVP 12/29/24 18:43 0.75 mg Q4HR PRN Administration Pain 7-10 or breakthrough Hydroxyzine HCl 25 mg 12/13/24 21:00 12/28/24 20:15 Hydroxyzine Hcl 25 Mg Tablet PO 01/12/25 20:59 25 mg HS CLEMENTINE Administration Magnesium Sulfate 4 gm in 50 mls @ 12.5 mls/hr 12/29/24 08:49 12/29/24 11:01 Magnesium Sulfate Ivpb IV 12/29/24 12:48 12.5 mls/hr X1 ONE Administration Insulin Glargine 18 unit 12/15/24 21:00 12/28/24 20:15 Insulin Glargine (Lantus) 5 Unit/0.05 Ml (Per 5 Units) SC 01/14/25 20:59 18 unit HS CLEMENTINE Administration Insulin Human Lispro 0 unit 12/19/24 21:00 12/29/24 11:11 Insulin Lispro (Admelog) 1 Unit/0.01 Ml Unit SC 01/18/25 20:59 Not Given ACHS CLEMENTINE Protocol Ondansetron HCl 4 mg 12/10/24 23:48 12/22/24 22:36 Ondansetron Inj 2 Mg/Ml Inj 2 Ml IVP 01/09/25 23:47 4 mg Q6H PRN Administration NAUSEA OR VOMITING Protocol Oxycodone/Acetaminophen 1 tab 12/27/24 09:09 12/29/24 07:39 Oxycodone/Apap 5/325 Tablet PO 01/01/25 09:08 1 tab Q6HR PRN Administration PAIN SCALE 4-6 (Moderate Protocol Sennosides 1 tab 12/16/24 14:00 12/29/24 08:08 Senna Tablet PO 01/15/25 13:59 1 tab QDAY CLEMENTINE Administration Protocol Sodium Chloride 3 ml 12/11/24 14:16 12/13/24 08:41 Sodium Chloride Rt Katherine 0.9% 3 Ml Nebu INH 01/10/25 14:15 3 ml PRN PRN Administration SOLN Plan 44-year-old female with past medical history of insulin-dependent type 2 diabetes, hypertension, GERD, history of valley fever presented to the ED on 12/10 with episode of left flank pain, nausea/vomiting and chills will be admitted for hypertensive emergency requiring close monitoring along with acute renal failure requiring urology and nephrology consultation and IV antibiotics for cystitis #Bladder mass, non-malignant #Bilateral Hydronephrosis s/p nephrostomy tube placement #Status post nephrostogram 12/26 -Cystoscopic examination by Urologist Dr. Friedman: found Bilateral hydronephrosis, large bladder mass occupying posterior bladder wall occupying the ureteral orifices. -After cystoscopy, patient noted that she had history of cervical cancer 3 years ago. -MRI abd/pelvis: Mild to moderate bilateral hydronephorsis, and dilated ureters extending to the bladder. -Per nephrology, the bladder mass is confined to the bladder. -Patient received bilatereal percutaneous nephrostomy tube placement on 12/19/2024 -12/24/2024 Creatinine is 3.8. Total Output is 4.3L. Right nephrostomy tube output is markedly decreased, with bloody urine noted in the drainage bag. Plan: -Patient underwent nephrostogramon 12/26, has satisfactory drainage from bilateral nephrostomy tubes. Right nephrostomy tube nephrostogram patient has shows that patient has extensive debris's in the renal collecting system. -Case was discussed with urologist who recommended anterograde stent placed by interventional radiologist, was discussed with interventional radiology, IR interventional radiologist informed that he is unable to perform the procedure, per interventional radiology there is extensive debris's, patient needs stent placement to improve drainage from nephrostomy tube as well. -Case was discussed with the urologist again urology said that the patient has extensive mass which is occlusive, and patient will need higher level of care interventional radiology procedure for anterograde stent placement. Transfer nurse was informed, transfer process initiated. - Transfer to higher level of care for interventional radiology to place anterograde stent. #Acute renal failure 2/2 Urinary Retention 2/2 Obstructive Uropathy Patient experienced acute renal failure, likely secondary to obstructive uropathy given bladder mass noted on cystoscopy report. Previous UA noted to have hematuria. Improving renal function with nephrostomy tubes in place. Diagnostics: -Repeat UA 12/14 Urine protein +1 Urine blood +1 RBC 5 -12/20/2024 Patient produced 4.2 L of urine . -12/22/2024 Patient's output was 1155 mL. Hematuria was observed in the output from the right nephrostomy tube, while the left nephrostomy output remained clear and unremarkable. Cr level of 3.8 Plan: -Nephrology consulted, Dr. Pierre, - Pending nuclear renal scan, IgA levels for IgA nephropathy, Hepatitis A/B titers, ANCA titers, pending results, appreciate recommendations -Avoid nephrotoxic agents -Renally dose medications -Replete electrolytes as needed and follow-up with morning labs -Currently, hemodialysis is on hold. #Acute urinary retention, improving #Bilateral hydronephrosis, likely secondary to obstruction #Cystitis #Complicated UTI, nephrolithiasis #Hematuria -On exam, patient no longer has left flank flank with CVA tenderness -CT abdomen pelvis shows a thick-walled cavitary lesion in the right middle lobe and a 22 mm pulmonary nodule in the anterior right lower lobe, numerous bilateral nonobstructing renal calculi, moderate bilateral hydronephrosis without calculi and cystitis -Based on CTAP presentation, urinary retention due to intake of meclizine was suspected as patient started to take it 1wk everyday prior to coming to the hospital. -Renal Ultrasound- Moderate bilateral hydronephrosis Plan: -Advised to stop taking meclizine. -Finished receiving IV ceftriaxone 2g IV qd (12/11-12/16). Rec IV ceftriaxone 1g IV qd (12/17-12/23) #Hypertensive emergency, improving #Hypertension Patient has significant history of hypertension on home antihypertensives Presenting to the ED with acute renal failure and elevated systolic pressure in the 200s Plan: - Coreg 25 mg PO BID - Hydralazine 50mg PO TID #Insulin-dependent type 2 diabetes Pertinent labs: 06/2024 A1C 11.1 12/11/24 A1C 8.0 Patient apparently takes 30 units of long-acting insulin twice a day Plan: -Insulin Glargine 18 units at bedtime -Sliding scale #History of Valley Fever -CTAP(03/21/2024):30 mm thick-walled cavitary lesion partially visualized right midlung,, 22 mm pulmonary nodule anterior right lower lobe -CXR(07/16/2024): Poorly defined nodular density 18 mm in the right lower lobe, -CXR (12/10/2024):Opacity right base which may represent a pulmonary mass, 19 mm -CTAP(12/10/2024): thick walled 25 mm cavitary lesion in the right middle lobe and 22mm pulmonary nodule anterior right lower lobe Plan: -Fairly stable right lung pulmonary nodule. -Will continue to monitor. #GERD Chronic medical problems: All pertinent to the following presentation Plan: -Continue Pantoprazole 40 mg PO QD Health Maintenance: Lines: PIV Diet: Renal and carb consistent low Bowel: Senna GI prophylaxis: Pantoprazole 40 mg PO QD DVT prophylaxis: SCD Dispo: Pending transfer Code: Full Assessment and plan discussed with my attending physician Dr. Buck Jones (PGY-2)- Internal medicine resident
[2024-12-29] MEDS: ACETAMINOPHEN 325 MG TABLET 650 MG PO (15:32)
[2024-12-29] MEDS: INSULIN LISPRO (AdmeLOG) 1 UNIT/0.01 ML UNIT SC ×2 (17:13→20:06)
[2024-12-29] MEDS: INSULIN GLARGINE (Lantus) 5 UNIT/0.05 ML (PER 5 UNITS) 18 UNIT SC (20:07)
--- NOTE | 2024-12-29 20:27 | PC.CC ---
Fanta from [facility] jason giordano at this time and stated that the IR doctor Dr. Rosado stated patient was to complex and out of his scope of practice. He felt patient needed university level care.
[2024-12-30] VITALS (11 sets, daily range): BP systolic 114–143; BP diastolic 61–81; PULSE 75–89; RESP 16–19; TEMP 36.2–36.7; O2SAT 92–96
[2024-12-30] MEDS: HYDROmorphone INJ 2 MG/ML VIAL 0.75 MG IVP ×5 (01:15→23:33)
[2024-12-30 06:06] LABS: Basophils # (Auto) 0.1 Thou/mm3 (0.0-0.2); Basophils % (Auto) 0 % (0-2.5); Eosinophils # (Auto) 0.1 Thou/mm3 (0.0-0.5); Eosinophils % (Auto) 1 % (0-10); Hematocrit 26.3 % (36.0-46.0); Immature Granulocytes Auto 0.23 Thou/mm3 (0.00-0.00); Lymphocytes # (Auto) 2.2 Thou/mm3 (1.0-4.8); Lymphocytes % (Auto) 12 % (10-50); Mean Corpuscular HGB Conc 31.9 g/dl (31.0-37.0); Mean Corpuscular Hemoglobin 25.4 pg (25.0-35.0); Mean Corpuscular Volume 80 fL (80-100); Monocytes # (Auto) 1.1 Thou/mm3 (0.0-0.8); Monocytes % (Auto) 6 % (0-12); Neutrophils # (Auto) 15.7 Thou/mm3 (1.8-7.7); Neutrophils % (Auto) 80 % (37-80); Nucleated Red Blood Cell # 0.00 Thou/mm3 (0.00-0.00); Nucleated Red Blood Cell % 0 /100 WBC (0); Platelet Count 520 Thou/mm3 (140-440); RDW Standard Deviation 42.1 fL (36.4-46.3); Red Blood Count 3.31 Miln/mm3 (4.00-5.20); White Blood Count 19.5 Thou/mm3 (3.6-11.0)
[2024-12-30 06:25] LABS: Hemoglobin 8.4 g/dL (12.0-16.0)
[2024-12-30 06:52] LABS: Albumin, Serum 4.2 gm/dL (3.5-5.0); Anion Gap 12 (7-16); BUN/Creatinine Ratio 11 Ratio (12-20); Blood Urea Nitrogen 35 mg/dL (9-23); Calcium 9.0 mg/dL (8.3-10.6); Calcium (Corrected) 9.0 mg/dL (8.5-10.1); Carbon Dioxide 24.7 mMol/L (20.0-31.0); Chloride 96 mMol/L (98-107); Creatinine (Component) 3.3 mg/dL (0.6-1.3); Estimated Creatinine Clearance 22.0 mL/min (>60); Glucose 150 mg/dL (74-106); Magnesium 2.0 mg/dL (1.6-2.6); Osmolality,Calculated 277 (275-295); Phosphorous 4.3 mg/dL (2.4-5.1); Potassium 4.3 mMol/L (3.4-5.1); Sodium 133 mMol/L (136-145); eGFR 17 See Note
--- NOTE | 2024-12-30 07:16 | PC.CC ---
Addendum entered by Randolph Hernandez RN 12/30/24 15:23: signed TBA faxed to [phone]. Called [facility], Colette CUTLER confirmed receipt of images. Addendum entered by Randolph Hernandez RN 12/30/24 15:15: Karen campbell/ [facility] called back stated to provide our inpt auth [place] to [facility] for move forward with the review. Addendum entered by Randolph Hernandez RN 12/30/24 15:12: [facility] however she is out of office. reached out to Karen campbell/ [facility] - waiting for response. During rounds, Dr. Jones stated he has asked Dr. Friedman to add documentation to present the case. so far Ashley Claros, KATHRINE nath, [facility], [facility], , Esthela have declined. Maikel has open case but is not contracted w/ [employer]. [facility] is reviewing. Addendum entered by Randolph Hernandez RN 12/30/24 13:47: 1342: received call from Yumiko campbell/ [facility], stating they will leave case open until they receive auth. They are not contracted with [employer]. She informed me that [facility] the '. [id number]: completed uploaded 8 images to [facility] which includes: IR Nephrostomy Lft and Rt 12/29, retro pyelogram w/wo Kub 12/24, US guide needle placement 12/19, CT abd/pel w/o con 12/10, Ct abd/pel w/o con 12/18, MR abd w/o con 12/18, and MR pelvis w/o con. Addendum entered by Randolph Hernandez RN 12/30/24 13:29: 1217: received call from Kal w/ [facility]. Link sent to upload images. Case identification is [id number]:: Addendum entered by Randolph Hernandez RN 12/30/24 11:53: 1149: called [facility], transfer request opened. Nurse will review 1145: sent clinicals and imaging to [facility]. Addendum entered by Randolph Hernandez RN 12/30/24 11:35: 1122: spoke to Mariela at [facility], transfer initiated. Addendum entered by Randolph Hernandez RN 12/30/24 11:20: 1119: sent clinicals to [facility]. Addendum entered by Randolph Hernandez RN 12/30/24 11:20: 1058: called amara Soto Addendum entered by Randolph Hernandez RN 12/30/24 11:20: 1057: received call from Cayetano campbell/ [facility], declined pt d/t medicine team at [facility]. Addendum entered by Randolph Hernandez RN 12/30/24 10:54: 1049: Michell confirmed receipt of images via [employer] link. A nurse will review and call me back. Addendum entered by Randolph Hernandez RN 12/30/24 09:06: 0840: [facility] initiated. Original Note: Clinicals sent to [facility]
--- NOTE | 2024-12-30 07:31 | ESPR_ITS ---
Documentation for date of: 12/30/24 Subjective Subjective Interval history: Ms. Cedillo is a 44-year-old female with past medical history of insulin- dependent type 2 diabetes, hypertension, GERD, history of valley fever untreated presented to the ED on 12/10 with episode of left flank pain, nausea/vomiting and chills. Patient states that the chills started roughly an hour ago but that she has been having progressively worsening left flank pain radiating to her back. Patient denies having any dysuria but does state that she has been having lilia hematuria for several days. Patient denies having any fevers but she does state that she has been having chills. Patient also complains of suprapubic pain and mentions that she feels pain near her ovaries. Patient has not seen PCP regarding the symptoms but she was seen several weeks ago for GERD like symptoms and was given medications. Patient otherwise denies having any concerning symptoms such as chest pain, dizziness, shortness of breath. In the ED, patient presented in hypertensive emergency with a blood pressure 187/83, other vitals wnl. Pertinent lab findings included WBC of 9, hemoglobin 7.9, potassium of 5.4, BUN of 31, creatinine 3.9, EGFR of 14, magnesium 1.6, troponin less than 0.02, BNP of 235, urinalysis shows hematuria and mild pyuria but no bacteria. Chest x-ray shows mild prominence of ventricles along with opacity in the right base concerning for pulmonary mass, EKG shows sinus rhythm without any concerning ST changes and CT abdomen pelvis shows a thick-walled cavitary lesion in the right middle lobe and a 22 mm pulmonary nodule in the anterior right lower lobe, numerous bilateral nonobstructing renal calculi, moderate bilateral hydronephrosis without calculi and cystitis. Patient will be admitted for hypertensive emergency requiring close monitoring along with acute renal failure requiring urology and nephrology consultation and IV antibiotics for cystitis Upon seeing the patient currently, she is on Mg Sulfate, Ceftriaxone, Carvedilol 6.25 mg, and maintenance IV fluids with a slightly improved blood pressure of 168/88 with the rest of vitals wnl. Patient states she is currently feeling much better now. States that she still has some nausea, L flank pain radiating to back and some dizziness when she stands up for too long. Patient states she has noticed blood in her urine today and ever since March. Patient endorses having bowel movements. Patient denies fever, headache, chest pain, shortness of breath, vomiting. 12/26/2024: No acute events overnight, patient seen and examined at bedside. pt reports R lower abdominal cramping pain, pt states she has leaking from L nephrostomy tube, pending IR nephrostomy tube assesment. Pt continues to have minimal R nephrostomy tube output (5-10 cc) and good L nephrostomy tube output(1450 cc) , will HOLD HD today. Pt denies fever, chest pain, shortness of breath. Biopsy of Bladder mass is benign. per conversation with urologist and Dr. Pineda, plan is for anterograde stents through the nephrostomy tubes and through the bladder mass. 12/27/2024: No acute events overnight, patient seen and examined at bedside. On exam patient has right lower quadrant pain on palpation. Patient states that she has experienced reduced leaking from nephrostomy tubes. Right nephrostomy tube output 350 cc, left nephrostomy tube output 1325. HOLD HD today, Cr 3.4, BUN 42, K, 4.8 12/28/2024 patient resting comfortably. at bedside. Denies any depression today. Blood sugar 145. Blood pressure 108/58, WBC 12.1, hemoglobin 7.8, platelets 514. Sodium 138, potassium 3.9, BUN 41, creatinine 3.3, GFR 17, calcium 9.2, magnesium 2, LFTs normal, albumin 4. Her iron dose she had a 1400ml out. Hold dialysis. Pending transfer to tertiary care center for anterograde stents and a bladder mass removal. 12/29/2024: Patient seen and examined at bedside. She is sitting upright at the edge of the bed crying due to pain in RLQ that extends towards R groin and leg, likely 2/2 to bladder mass.patient states that pain is not improved with oxycodone, but dilauded helps. Blood sugar 131, BP 143/80, WBC 12.8, Hgb stable, Bilateral nephrostomy tubes, R tube is not draining, Left tube is draining clear yellow urine 900cc. Cheng catheter with minimal output Hold HD, remove HD catheter, pain control, pending transfer to tertiary care center for anterograde stents and bladder mass removal. 12/30/24. Patient seen and examined at bedside. She is laying in bed and continues to report RLQ abdominal pain that extends towards R groin and leg. pt is s/p BL nephrogram on 12/29 to flush the nephrostomy tubes given R tube not draining. today there is minimal drainage from R tube, L continues to have good output 1535. HD cath remains in place, Pending transfer (if transfer for IR at higher care facility is rejected, will persue transfer for urology) no HD today, Cr stable 3.3 from 3.2. Exam Vital Signs Temp Pulse Resp BP Pulse Ox O2 Del Method O2 Flow Rate 97.5 F 88 19 143/68 H 94 L Room Air 2 12/30/24 04:00 12/30/24 05:37 12/30/24 04:00 12/30/24 05:37 12/30/24 04:00 12/30/24 04:00 12/26/24 16:00 Narrative Exam GENERAL APPEARANCE: Patient seems to be very uncomfortable, adequately hydrated and nourished. HEENT: Poor dentition CARDIOVASCULAR: well perfused on visual inspection LUNGS/CHEST: nl work of breathing. no accessory muscle usage. ABDOMEN: c/o RLQ pain, tender to palpation. Soft, non distended EXTREMITIES: No edema, clubbing or cyanosis. SKIN: Skin exam normal without any rashes. Right IJ PermCath MUSCULOSKELETAL: Bilateral nephrostomy tubes, Cheng catheter+ PSYCHIATRIC: Normal mood, affect LYMPHATICS: No lymphadenopathy noted NEUROLOGICAL : No neurological deficits Objective Labs 12/30/24 05:23 12/30/24 05:23 Labs: Laboratory Results - last 24 hr 12/30/24 05:23 WBC 19.5 H D RBC 3.31 L Hgb 8.4 L Hct 26.3 L MCV 80 MCH 25.4 MCHC 31.9 RDW Std Deviation 42.1 Plt Count 520 H Neut % (Auto) 80 Lymph % (Auto) 12 [place] % (Auto) 6 Eos % (Auto) 1 Baso % (Auto) 0 Neut # (Auto) 15.7 H Lymph # (Auto) 2.2 [place] # (Auto) 1.1 H Eos # (Auto) 0.1 Baso # (Auto) 0.1 Immature Gran # (Auto) 0.23 H Absolute Nucleated RBC 0.00 Immature Gran % 1 H Nucleated RBC % 0 Sodium 133 L Potassium 4.3 D Chloride 96 L Carbon Dioxide 24.7 Anion Gap 12 BUN 35 H Creatinine 3.3 H Estim Creat Clear Calc 22.0 L eGFR 17 L BUN/Creatinine Ratio 11 L Glucose 150 H Calculated Osmolality 277 Calcium 9.0 Corrected Calcium 9.0 Phosphorus 4.3 Magnesium 2.0 Albumin 4.2 Quality Measures Quality Measures VTE prophylaxis Assessment & Plan Assessment Current Active Medications: Generic Name Dose Route Start Last Admin Trade Name Freq PRN Reason Stop Dose Admin Acetaminophen 650 mg 12/19/24 18:23 12/29/24 15:32 Acetaminophen 325 Mg Tablet PO 01/09/25 23:47 650 mg Q6H PRN Administration PAIN 1-6 (mild-mod Protocol Buspirone HCl 10 mg 12/11/24 21:00 12/29/24 20:07 Buspirone Hcl 5 Mg Tablet PO 01/10/25 20:59 10 mg HS CLEMENTINE Administration Carvedilol 25 mg 12/20/24 17:30 12/29/24 17:14 Carvedilol 12.5 Mg Tablet PO 01/19/25 17:29 25 mg BIDWM CLEMENTINE Administration Dextrose 25 ml 12/10/24 23:51 Dextrose 50%-Water Inj 50 Ml Syringe IV 01/09/25 23:50 Q15MIN PRN BG 50-70 responsive npo pt Dextrose 50 ml 12/10/24 23:51 12/13/24 11:33 Dextrose 50%-Water Inj 50 Ml Syringe IV 01/09/25 23:50 50 ml Q15MIN PRN Administration BG <50 OR BG <70 & pt unresponsive Famotidine 20 mg 12/19/24 09:00 12/29/24 08:08 Famotidine 20 Mg Tablet PO 01/18/25 08:59 20 mg QDAY CLEMENTINE Administration Ferrous Sulfate 325 mg 12/29/24 09:00 12/29/24 08:08 Ferrous Sulf 325 Mg Tablet PO 01/28/25 08:59 325 mg DAILY CLEMENTINE Administration Glucagon 1 mg 12/10/24 23:51 Glucagon Inj 1 Mg Vial IM Q15MIN PRN BG <70, and no IV access Heparin Sodium (Porcine) 3,800 unit 12/16/24 12:29 12/20/24 12:20 Heparin Sod Inj 1000 Unit/Ml Vial 10 Ml INDWELLCAT 12/30/24 12:28 3,800 unit X1 PRN Administration DIALYSIS Hydralazine HCl 10 mg 12/19/24 09:12 Hydralazine Inj 20 Mg/Ml Vial IVP 01/18/25 09:11 Q6HR PRN SBP > 180 Hydralazine HCl 50 mg 12/20/24 14:00 12/30/24 05:37 Hydralazine Hcl 25 Mg Tablet PO 01/19/25 13:59 50 mg TID CLEMENTINE Administration Hydromorphone HCl 0.75 mg 12/29/24 20:14 12/30/24 05:37 Hydromorphone Inj 2 Mg/Ml Vial IVP 01/03/25 20:13 0.75 mg Q4HR PRN Administration pain 7-10 or breakthrough Hydroxyzine HCl 25 mg 12/13/24 21:00 12/29/24 20:07 Hydroxyzine Hcl 25 Mg Tablet PO 01/12/25 20:59 25 mg HS CLEMENTINE Administration Insulin Glargine 18 unit 12/15/24 21:00 12/29/24 20:07 Insulin Glargine (Lantus) 5 Unit/0.05 Ml (Per 5 Units) SC 01/14/25 20:59 18 unit HS CLEMENTINE Administration Insulin Human Lispro 0 unit 12/19/24 21:00 12/29/24 20:06 Insulin Lispro (Admelog) 1 Unit/0.01 Ml Unit SC 01/18/25 20:59 2 unit ACHS CLEMENTINE Administration Protocol Ondansetron HCl 4 mg 12/10/24 23:48 12/22/24 22:36 Ondansetron Inj 2 Mg/Ml Inj 2 Ml IVP 01/09/25 23:47 4 mg Q6H PRN Administration NAUSEA OR VOMITING Protocol Oxycodone/Acetaminophen 1 tab 12/27/24 09:09 12/29/24 20:07 Oxycodone/Apap 5/325 Tablet PO 01/01/25 09:08 1 tab Q6HR PRN Administration PAIN SCALE 4-6 (Moderate Protocol Sennosides 1 tab 12/16/24 14:00 12/29/24 08:08 Senna Tablet PO 01/15/25 13:59 1 tab QDAY CLEMENTINE Administration Protocol Sodium Chloride 3 ml 12/11/24 14:16 12/13/24 08:41 Sodium Chloride Rt Katherine 0.9% 3 Ml Nebu INH 01/10/25 14:15 3 ml PRN PRN Administration SOLN Plan Kacy Cedillo is a 44-year-old female with past medical history of insulin-dependent type 2 diabetes, hypertension, GERD, history of valley fever untreated presented to the ED on 12/10 with episode of left flank pain, nausea/vomiting and chills will be admitted for hypertensive emergency requiring close monitoring along with acute renal failure requiring urology and nephrology consultation and IV antibiotics for cystitis.pending transfer for IR anterograde BL nephrostomy stents. #Acute kidney injury --biopsy-proven ATN superimposed on obstructive uropathy. CT showed numerous b/l nonobstructing renal caliculi, mod b/l hydronephrosis wo ureteral calculi, cystitis pattern Patient received a kidney biopsy which showed ATN/AIN and underlying diabetes/hypertensive nephrosclerosis Bilateral percutaneous nephrostomy tube placed, L draining well, R with minimal drainage likely 2/2 debris . 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 BUN 35 from 38, Cr 3.3 (stable) good UOP through nephrostomy tube, L>R s/p BL nephrostogram to flush R nephrostomy tube, R tube continues to have minimal drainage -No HD today, per primary team, will CTM nephrostomy output and will keep HD cath pending transfer. -cheng catheter in place with scant drainage. -Needs outpatient tertiary care center evaluation for large bladder tumor, B ladder mass is benign, will need antegrade stents -pending transfer for IR, (if after 3 IR transfer rejections, will pursue transfer for urology) -Strict I/O's -Avoid nephrotoxic agents -Renally dose medications -Replete electrolytes as needed and follow-up with morning labs -pain managemnt: per primary team: APAP prn, NORCO 5/325 q6hr prn, dilaudid 0.75mg PRN #Acute urinary retention #Bilateral hydronephrosis #Cystitis #Complicated UTI, nephrolithiasis #Hematuria #Hypertensive emergency, improving--in fact on the lower side #Hypertension #Insulin-dependent type 2 diabetes #GERD -Managed per primary team Plan discussed with nephrology attending Dr. Miriam Kirk MD Internal Medicine PGY-1 Attending Provider Attestation/Addendum Patient seen and examined with resident physician Dr. Kirk. Note reviewed, agree with findings and recommendations. Patient with bilateral nephrostomy tubes for obstructive uropathy. Left tube seems to be making good urine. Right tube blocked. Was adjusted twice already. Significant debris noted. She has a Cheng catheter. Complaining of lower pelvic pain. On Dilaudid [id number]. Pending transfer to higher level of care for anterograde stents and bladder tumor removal. Urine output improving. Creatinine stable. Hold off on dialysis. Team wants to keep the dialysis catheter in due to malfunctioning right nephrostomy tube. Suspect ATN is improving care discussed with primary team..
--- NOTE | 2024-12-30 07:33 | ESPR_ITS ---
RE: [id number] LIN : 1980 DATE OF SERVICE: 12/26/2024 HISTORY OF PRESENT ILLNESS: This is a 44-year-old female. She has a large mass in the bladder. Her ureteral orifices were not visualized. The patient had a placement of bilateral percutaneous nephrostomies. I did a mini TUR to get a tissue diagnosis. 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 The patient needs to have placement of antegrade stents to be arranged by hospitalist. DT: 15:11:23 TT: 22:57:00 Ref: [id number] - TID: [id number]
[2024-12-30 07:51] LABS: INR 1.1 (0.9-1.3); Partial Thromboplastin Time 37.5 Seconds (22.0-36.0); Prothrombin Time 11.7 Seconds (9.0-12.2)
--- NOTE | 2024-12-30 07:51 | PC.NURSE ---
notified by dr. dunham of cancellation of perm cath removal at this time.
[2024-12-30] MEDS: FERROUS SULF 325 MG TABLET PO (09:02)
[2024-12-30] MEDS: FAMOTIDINE 20 MG TABLET PO (09:02)
[2024-12-30] MEDS: INSULIN LISPRO (AdmeLOG) 1 UNIT/0.01 ML UNIT SC ×2 (11:28→21:14)
[2024-12-30] MEDS: DOXYCYCLINE 100 MG TABLET PO ×2 (12:16→21:16)
[2024-12-30] MEDS: PIPER/TAZO 3.375 GM PREMIX 3.375 GM/50 ML BAG IV ×2 (12:16→21:15)
--- NOTE | 2024-12-30 15:12 | PD.RESPRO ---
Documentation for date of: 12/30/24 Subjective Subjective Interval history: Patient seen and examined at bedside. Patient has had minimal drainage from nephrostomy site bilaterally, nephrostomy tubes were flushed via nephrostogram by interventional radiology on 12/29. Continue to have minimal drainage form Right Nephrostomy site, IR recs considering replacing right nephrostomy tube. Case was discussed with our urologist Dr. Friedman Per Dr. Friedman patient has a large mass in the bladder, ureteral orifices were not visualized, patient needs to have placement of anterograde stents by interventional radiology The procedure is out of scope for the interventional radiologist at our facility, hence the transfer process was initiated. Patient has extensive debris which keeps leading to blockage of nephrostomy tubes recurrently, patient needs higher level of care. Pending transfer. Nephrology recommends to remove hemodialysis catheter, will hold off on removal for now, will monitor renal function considering patient has blockage of right nephrostomy tube. Patient had fever overnight, has elevated white count this morning, patient will be started on IV antibiotics, ordered repeat cultures. Will continue to monitor. Exam Vital Signs Temp Pulse Resp BP Pulse Ox O2 Del Method O2 Flow Rate 98.0 F 77 18 133/67 H 93 L Room Air 2 12/30/24 12:00 12/30/24 14:59 12/30/24 12:00 12/30/24 14:59 12/30/24 12:00 12/30/24 12:00 12/26/24 16:00 Narrative Exam General: No acute distress, well nourished Eye: PERRL, EOMI, normal conjunctiva, no scleral icterus HENT: Normocephalic, atraumatic, hearing intact to conversation at normal volume, moist oral mucosa Neck: Supple, non-tender, no JVD, no lymphadenopathy Lungs: Non-labored respirations, symmetric chest rise, Clear to auscultate bilaterally Heart: Peripheral pulses intact bilaterally, Regular rate and Rhythm. Abdomen: Soft, non-tender, non-distended. Bilateral nephrostomy tube noted,RIGHT side have no output, left side have 400cc or non bloody output Musculoskeletal: Normal range of motion and strength Skin: Skin is warm, dry, no rashes or lesions. Psychiatric: Cooperative, appropriate mood and affect Neuro: Cranial nerves II-XII grossly intact. Strength 5/5 throughout. Sensations intact to light touch. Objective Labs 12/30/24 05:23 12/30/24 05:23 Labs: Laboratory Results - last 24 hr 12/30/24 05:23 WBC 19.5 H D RBC 3.31 L Hgb 8.4 L Hct 26.3 L MCV 80 MCH 25.4 MCHC 31.9 RDW Std Deviation 42.1 Plt Count 520 H Neut % (Auto) 80 Lymph % (Auto) 12 [place] % (Auto) 6 Eos % (Auto) 1 Baso % (Auto) 0 Neut # (Auto) 15.7 H Lymph # (Auto) 2.2 [place] # (Auto) 1.1 H Eos # (Auto) 0.1 Baso # (Auto) 0.1 Immature Gran # (Auto) 0.23 H Absolute Nucleated RBC 0.00 Immature Gran % 1 H Nucleated RBC % 0 PT 11.7 INR 1.1 APTT 37.5 H Sodium 133 L Potassium 4.3 D Chloride 96 L Carbon Dioxide 24.7 Anion Gap 12 BUN 35 H Creatinine 3.3 H Estim Creat Clear Calc 22.0 L eGFR 17 L BUN/Creatinine Ratio 11 L Glucose 150 H Calculated Osmolality 277 Calcium 9.0 Corrected Calcium 9.0 Phosphorus 4.3 Magnesium 2.0 Albumin 4.2 Quality Measures Quality Measures VTE prophylaxis Assessment & Plan Assessment Current Active Medications: Generic Name Dose Route Start Last Admin Trade Name Freq PRN Reason Stop Dose Admin Acetaminophen 650 mg 12/19/24 18:23 12/29/24 15:32 Acetaminophen 325 Mg Tablet PO 01/09/25 23:47 650 mg Q6H PRN Administration PAIN 1-6 (mild-mod Protocol Buspirone HCl 10 mg 12/11/24 21:00 12/29/24 20:07 Buspirone Hcl 5 Mg Tablet PO 01/10/25 20:59 10 mg HS CLEMENTINE Administration Carvedilol 25 mg 12/20/24 17:30 12/30/24 09:02 Carvedilol 12.5 Mg Tablet PO 01/19/25 17:29 25 mg BIDWM CLEMENTINE Administration Dextrose 25 ml 12/10/24 23:51 Dextrose 50%-Water Inj 50 Ml Syringe IV 01/09/25 23:50 Q15MIN PRN BG 50-70 responsive npo pt Dextrose 50 ml 12/10/24 23:51 12/13/24 11:33 Dextrose 50%-Water Inj 50 Ml Syringe IV 01/09/25 23:50 50 ml Q15MIN PRN Administration BG <50 OR BG <70 & pt unresponsive Doxycycline Hyclate 100 mg 12/30/24 11:45 12/30/24 12:16 Doxycycline 100 Mg Tablet PO 01/06/25 11:44 100 mg BID CLEMENTINE Administration Famotidine 20 mg 12/19/24 09:00 12/30/24 09:02 Famotidine 20 Mg Tablet PO 01/18/25 08:59 20 mg QDAY CLEMENTINE Administration Ferrous Sulfate 325 mg 12/29/24 09:00 12/30/24 09:02 Ferrous Sulf 325 Mg Tablet PO 01/28/25 08:59 325 mg DAILY CLEMENTINE Administration Glucagon 1 mg 12/10/24 23:51 Glucagon Inj 1 Mg Vial IM Q15MIN PRN BG <70, and no IV access Hydralazine HCl 10 mg 12/19/24 09:12 Hydralazine Inj 20 Mg/Ml Vial IVP 01/18/25 09:11 Q6HR PRN SBP > 180 Hydralazine HCl 50 mg 12/20/24 14:00 12/30/24 14:59 Hydralazine Hcl 25 Mg Tablet PO 01/19/25 13:59 50 mg TID CLEMENTINE Administration Hydromorphone HCl 0.75 mg 12/29/24 20:14 12/30/24 09:51 Hydromorphone Inj 2 Mg/Ml Vial IVP 01/03/25 20:13 0.75 mg Q4HR PRN Administration pain 7-10 or breakthrough Hydroxyzine HCl 25 mg 12/13/24 21:00 12/29/24 20:07 Hydroxyzine Hcl 25 Mg Tablet PO 01/12/25 20:59 25 mg HS CLEMENTINE Administration Piperacillin/Tazobactam/Dextrose 3.375 gm in 50 mls @ 12.5 mls/hr 12/30/24 21:00 Zosyn IV 01/06/25 20:59 Q12HR CLEMENTINE Protocol Insulin Glargine 18 unit 12/15/24 21:00 12/29/24 20:07 Insulin Glargine (Lantus) 5 Unit/0.05 Ml (Per 5 Units) SC 01/14/25 20:59 18 unit HS CLEMENTINE Administration Insulin Human Lispro 0 unit 12/19/24 21:00 12/30/24 11:28 Insulin Lispro (Admelog) 1 Unit/0.01 Ml Unit SC 01/18/25 20:59 1 unit ACHS CLEMENTINE Administration Protocol Ondansetron HCl 4 mg 12/10/24 23:48 12/22/24 22:36 Ondansetron Inj 2 Mg/Ml Inj 2 Ml IVP 01/09/25 23:47 4 mg Q6H PRN Administration NAUSEA OR VOMITING Protocol Oxycodone/Acetaminophen 1 tab 12/27/24 09:09 12/29/24 20:07 Oxycodone/Apap 5/325 Tablet PO 01/01/25 09:08 1 tab Q6HR PRN Administration PAIN SCALE 4-6 (Moderate Protocol Sennosides 1 tab 12/16/24 14:00 12/30/24 09:02 Senna Tablet PO 01/15/25 13:59 1 tab QDAY CLEMENTINE Administration Protocol Sodium Chloride 3 ml 12/11/24 14:16 12/13/24 08:41 Sodium Chloride Rt Katherine 0.9% 3 Ml Nebu INH 01/10/25 14:15 3 ml PRN PRN Administration SOLN Plan 44-year-old female with past medical history of insulin-dependent type 2 diabetes, hypertension, GERD, history of valley fever presented to the ED on 12/10 with episode of left flank pain, nausea/vomiting and chills will be admitted for hypertensive emergency requiring close monitoring along with acute renal failure requiring urology and nephrology consultation and IV antibiotics for cystitis #Bladder mass, non-malignant #Bilateral Hydronephrosis s/p nephrostomy tube placement #Status post nephrostogram 12/26 -Cystoscopic examination by Urologist Dr. Friedman: found Bilateral hydronephrosis, large bladder mass occupying posterior bladder wall occupying the ureteral orifices. -After cystoscopy, patient noted that she had history of cervical cancer 3 years ago. -MRI abd/pelvis: Mild to moderate bilateral hydronephorsis, and dilated ureters extending to the bladder. -Per nephrology, the bladder mass is confined to the bladder. -Patient received bilatereal percutaneous nephrostomy tube placement on 12/19/2024 -12/24/2024 Creatinine is 3.8. Total Output is 4.3L. Right nephrostomy tube output is markedly decreased, with bloody urine noted in the drainage bag. Plan: -Patient underwent nephrostogramon 12/26, has satisfactory drainage from bilateral nephrostomy tubes. Right nephrostomy tube nephrostogram patient has shows that patient has extensive debris's in the renal collecting system. -Case was discussed with urologist who recommended anterograde stent placed by interventional radiologist, was discussed with interventional radiology, IR interventional radiologist informed that he is unable to perform the procedure, per interventional radiology there is extensive debris's, patient needs stent placement to improve drainage from nephrostomy tube as well. -Case was discussed with the urologist again urology said that the patient has extensive mass which is occlusive, and patient will need higher level of care interventional radiology procedure for anterograde stent placement. Transfer nurse was informed, transfer process initiated. - Transfer to higher level of care for interventional radiology to place anterograde stent. #Acute renal failure 2/2 Urinary Retention 2/2 Obstructive Uropathy Patient experienced acute renal failure, likely secondary to obstructive uropathy given bladder mass noted on cystoscopy report. Previous UA noted to have hematuria. Improving renal function with nephrostomy tubes in place. Diagnostics: -Repeat UA 12/14 Urine protein +1 Urine blood +1 RBC 5 -12/20/2024 Patient produced 4.2 L of urine . -12/22/2024 Patient's output was 1155 mL. Hematuria was observed in the output from the right nephrostomy tube, while the left nephrostomy output remained clear and unremarkable. Cr level of 3.8 Plan: -Nephrology consulted, Dr. Pierre, - Pending nuclear renal scan, IgA levels for IgA nephropathy, Hepatitis A/B titers, ANCA titers, pending results, appreciate recommendations -Avoid nephrotoxic agents -Renally dose medications -Replete electrolytes as needed and follow-up with morning labs -Currently, hemodialysis is on hold. #Acute urinary retention, improving #Bilateral hydronephrosis, likely secondary to obstruction #Cystitis #Complicated UTI, nephrolithiasis #Hematuria -On exam, patient no longer has left flank flank with CVA tenderness -CT abdomen pelvis shows a thick-walled cavitary lesion in the right middle lobe and a 22 mm pulmonary nodule in the anterior right lower lobe, numerous bilateral nonobstructing renal calculi, moderate bilateral hydronephrosis without calculi and cystitis -Based on CTAP presentation, urinary retention due to intake of meclizine was suspected as patient started to take it 1wk everyday prior to coming to the hospital. -Renal Ultrasound- Moderate bilateral hydronephrosis Plan: -Advised to stop taking meclizine. -Finished receiving IV ceftriaxone 2g IV qd (12/11-12/16). Rec IV ceftriaxone 1g IV qd (12/17-12/23) #Hypertensive emergency, improving #Hypertension Patient has significant history of hypertension on home antihypertensives Presenting to the ED with acute renal failure and elevated systolic pressure in the 200s Plan: - Coreg 25 mg PO BID - Hydralazine 50mg PO TID #Insulin-dependent type 2 diabetes Pertinent labs: 06/2024 A1C 11.1 12/11/24 A1C 8.0 Patient apparently takes 30 units of long-acting insulin twice a day Plan: -Insulin Glargine 18 units at bedtime -Sliding scale #History of Valley Fever -CTAP(03/21/2024):30 mm thick-walled cavitary lesion partially visualized right midlung,, 22 mm pulmonary nodule anterior right lower lobe -CXR(07/16/2024): Poorly defined nodular density 18 mm in the right lower lobe, -CXR (12/10/2024):Opacity right base which may represent a pulmonary mass, 19 mm -CTAP(12/10/2024): thick walled 25 mm cavitary lesion in the right middle lobe and 22mm pulmonary nodule anterior right lower lobe Plan: -Fairly stable right lung pulmonary nodule. -Will continue to monitor. #GERD Chronic medical problems: All pertinent to the following presentation Plan: -Continue Pantoprazole 40 mg PO QD Health Maintenance: Lines: PIV Diet: Renal and carb consistent low Bowel: Senna GI prophylaxis: Pantoprazole 40 mg PO QD DVT prophylaxis: SCD Dispo: Pending transfer Code: Full Assessment and plan discussed with my attending physician Dr. Benjamin. Dr. Jones ([id number])- Internal medicine resident Attending Provider Attestation/Addendum I attest that I was physically present for the evaluation, physical examination, lab and imaging review of the patient with the residents. I discussed the case with the residents and agree with the findings and plans of care as documented above. At bedside today, patient is states she continues to have some pain on right side but controlled with analgesics. Patient underwent a bilateral nephrostogram yesterday, was found to have minimal drainage from bilateral tubes, flushed by IR yesterday. Today, left side noted to be draining well but minimal drainage from the right side. Recommended by IR to replace right nephrostomy tube. Urology following closely, stated that patient has large bladder mass, for which anterograde stents are recommended to be done by IR radiology. Discussed with IR, recommended transfer to higher center for the procedure as it cannot be completed at our facility. Nephrology following closely, recommended discontinuation of hemodialysis catheter, but given patient's nephrostomy tube dysfunction, we will keep the tube as there is chance of having renal dysfunction if the transfer process and stent placement is delayed. Patient also noted to have fever overnight with temperature of 101 ?F, her WBC count also increased to 19.5. Patient denies any new symptoms, we will obtain repeat urinalysis, we will also obtain blood and urine culture. Empirically started her IV Zosyn and doxycycline. Sally Benjamin MD
[2024-12-30 15:17] LABS: Collection Type, Urine Clean Catch
[2024-12-30 15:31] LABS: Bilirubin,Urine Negative (Negative); Blood,Urine 3+ (Negative); Color,Urine Yellow (Lt Yel-Yel); Glucose, Urine Trace (Negative); Ketones,Urine Negative (Negative); Leukocyte Esterase,Urine Negative (Negative); Nitrite,Urine Negative (Negative); PH,Urine 8.0 (5.0-7.0); Protein,Urine 2+ (Neg - Trace); RBC,Urine 611 /hpf (0-3); Specific Gravity,Urine 1.033 (1.001-1.035); Squamous Epithelial Cell,Urine 21 /hpf (0-5); Urobilinogen,Urine Negative mg/dL (0.0-1.0); WBC,Urine 30 /hpf (0-5)
[2024-12-30 16:08] LABS: Clarity,Urine Hazy (Clear/Hazy)
[2024-12-30] MEDS: INSULIN GLARGINE (Lantus) 5 UNIT/0.05 ML (PER 5 UNITS) 18 UNIT SC (21:15)
[2024-12-31] VITALS (12 sets, daily range): BP systolic 105–150; BP diastolic 55–77; PULSE 67–84; RESP 12–18; TEMP 36.1–37.7; O2SAT 94–97; BMI 34.7
[2024-12-31] MEDS: HYDROmorphone INJ 2 MG/ML VIAL 0.75 MG IVP ×5 (05:01→21:24)
[2024-12-31 06:02] LABS: Basophils # (Auto) 0.1 Thou/mm3 (0.0-0.2); Basophils % (Auto) 1 % (0-2.5); Eosinophils # (Auto) 0.3 Thou/mm3 (0.0-0.5); Eosinophils % (Auto) 3 % (0-10); Hematocrit 25.0 % (36.0-46.0); Immature Granulocytes Auto 0.11 Thou/mm3 (0.00-0.00); Lymphocytes # (Auto) 2.4 Thou/mm3 (1.0-4.8); Lymphocytes % (Auto) 19 % (10-50); Mean Corpuscular HGB Conc 31.6 g/dl (31.0-37.0); Mean Corpuscular Hemoglobin 25.3 pg (25.0-35.0); Mean Corpuscular Volume 80 fL (80-100); Monocytes # (Auto) 1.1 Thou/mm3 (0.0-0.8); Monocytes % (Auto) 9 % (0-12); Neutrophils # (Auto) 8.9 Thou/mm3 (1.8-7.7); Neutrophils % (Auto) 69 % (37-80); Nucleated Red Blood Cell # 0.00 Thou/mm3 (0.00-0.00); Nucleated Red Blood Cell % 0 /100 WBC (0); Platelet Count 478 Thou/mm3 (140-440); RDW Standard Deviation 43.3 fL (36.4-46.3); Red Blood Count 3.12 Miln/mm3 (4.00-5.20); White Blood Count 13.0 Thou/mm3 (3.6-11.0)
[2024-12-31 06:09] LABS: Hemoglobin 7.9 g/dL (12.0-16.0)
[2024-12-31 06:40] LABS: Albumin, Serum 4.2 gm/dL (3.5-5.0); Anion Gap 11 (7-16); BUN/Creatinine Ratio 10 Ratio (12-20); Blood Urea Nitrogen 33 mg/dL (9-23); Calcium 9.1 mg/dL (8.3-10.6); Calcium (Corrected) 9.1 mg/dL (8.5-10.1); Carbon Dioxide 25.7 mMol/L (20.0-31.0); Chloride 98 mMol/L (98-107); Creatinine (Component) 3.4 mg/dL (0.6-1.3); Estimated Creatinine Clearance 21.3 mL/min (>60); Glucose 125 mg/dL (74-106); Magnesium 2.3 mg/dL (1.6-2.6); Osmolality,Calculated 278 (275-295); Phosphorous 5.4 mg/dL (2.4-5.1); Potassium 3.9 mMol/L (3.4-5.1); Sodium 135 mMol/L (136-145); eGFR 17 See Note
--- NOTE | 2024-12-31 08:48 | ESPR_ITS ---
Documentation for date of: 12/31/24 Subjective Subjective Interval history: Ms. Cedillo is a 44-year-old female with past medical history of insulin- dependent type 2 diabetes, hypertension, GERD, history of valley fever untreated presented to the ED on 12/10 with episode of left flank pain, nausea/vomiting and chills. Patient states that the chills started roughly an hour ago but that she has been having progressively worsening left flank pain radiating to her back. Patient denies having any dysuria but does state that she has been having lilia hematuria for several days. Patient denies having any fevers but she does state that she has been having chills. Patient also complains of suprapubic pain and mentions that she feels pain near her ovaries. Patient has not seen PCP regarding the symptoms but she was seen several weeks ago for GERD like symptoms and was given medications. Patient otherwise denies having any concerning symptoms such as chest pain, dizziness, shortness of breath. In the ED, patient presented in hypertensive emergency with a blood pressure 187/83, other vitals wnl. Pertinent lab findings included WBC of 9, hemoglobin 7.9, potassium of 5.4, BUN of 31, creatinine 3.9, EGFR of 14, magnesium 1.6, troponin less than 0.02, BNP of 235, urinalysis shows hematuria and mild pyuria but no bacteria. Chest x-ray shows mild prominence of ventricles along with opacity in the right base concerning for pulmonary mass, EKG shows sinus rhythm without any concerning ST changes and CT abdomen pelvis shows a thick-walled cavitary lesion in the right middle lobe and a 22 mm pulmonary nodule in the anterior right lower lobe, numerous bilateral nonobstructing renal calculi, moderate bilateral hydronephrosis without calculi and cystitis. Patient will be admitted for hypertensive emergency requiring close monitoring along with acute renal failure requiring urology and nephrology consultation and IV antibiotics for cystitis Upon seeing the patient currently, she is on Mg Sulfate, Ceftriaxone, Carvedilol 6.25 mg, and maintenance IV fluids with a slightly improved blood pressure of 168/88 with the rest of vitals wnl. Patient states she is currently feeling much better now. States that she still has some nausea, L flank pain radiating to back and some dizziness when she stands up for too long. Patient states she has noticed blood in her urine today and ever since March. Patient endorses having bowel movements. Patient denies fever, headache, chest pain, shortness of breath, vomiting. 12/29/2024: Patient seen and examined at bedside. She is sitting upright at the edge of the bed crying due to pain in RLQ that extends towards R groin and leg, likely 2/2 to bladder mass.patient states that pain is not improved with oxycodone, but dilauded helps. Blood sugar 131, BP 143/80, WBC 12.8, Hgb stable, Bilateral nephrostomy tubes, R tube is not draining, Left tube is draining clear yellow urine 900cc. Cheng catheter with minimal output Hold HD, remove HD catheter, pain control, pending transfer to tertiary care center for anterograde stents and bladder mass removal. 12/30/24: Patient seen and examined at bedside. She is laying in bed and continues to report RLQ abdominal pain that extends towards R groin and leg. pt is s/p BL nephrogram on 12/29 to flush the nephrostomy tubes given R tube not draining. today there is minimal drainage from R tube, L continues to have good output 1535. HD cath remains in place, Pending transfer (if transfer for IR at higher care facility is rejected, will persue transfer for urology) no HD today, Cr stable 3.3 from 3.2. 12/31/2024:Patient seen and examined at bedside. She is laying in bed and continues to report RLQ abdominal pain that extends towards R groin and leg. pt getting regular Dilaudid. D/c cheng if daily output <100, downgrade pt from [facility] to [facility] [place] for shower. primary team will discuss with Dr. Aponte about replacing R nephrostomy tube given minimal output. L continues to have good output. HD cath remains in place. Pt transfer for IR has heen denied at 9 institutions due to insurance not being accepted or bed availability, Cr 3.4 from 3.3, NO HD today. Plan for initating urology transfer. Exam Vital Signs Temp Pulse Resp BP Pulse Ox O2 Del Method O2 Flow Rate 97.1 F 80 12 123/69 96 Room Air 2 12/31/24 08:00 12/31/24 08:00 12/31/24 08:00 12/31/24 08:00 12/31/24 08:00 12/31/24 08:00 12/26/24 16:00 Narrative Exam GENERAL APPEARANCE: Patient seems to be more comfortable, adequately hydrated and nourished. HEENT: Poor dentition CARDIOVASCULAR: well perfused on visual inspection LUNGS/CHEST: nl work of breathing. no accessory muscle usage. ABDOMEN: c/o RLQ pain, tender to palpation. Soft, non distended EXTREMITIES: No edema, clubbing or cyanosis. SKIN: Skin exam normal without any rashes. Right IJ PermCath MUSCULOSKELETAL: Bilateral nephrostomy tubes, Cheng catheter+ with scant and bloody drainage. PSYCHIATRIC: Normal mood, affect LYMPHATICS: No lymphadenopathy noted NEUROLOGICAL : No neurological deficits Objective Labs 01/01/25 05:10 01/01/25 05:10 Labs: Laboratory Results - last 24 hr 12/30/24 12/31/24 13:00 05:04 WBC 13.0 H D RBC 3.12 L Hgb 7.9 L Hct 25.0 L MCV 80 MCH 25.3 MCHC 31.6 RDW Std Deviation 43.3 Plt Count 478 H D Neut % (Auto) 69 Lymph % (Auto) 19 [place] % (Auto) 9 Eos % (Auto) 3 Baso % (Auto) 1 Neut # (Auto) 8.9 H Lymph # (Auto) 2.4 [place] # (Auto) 1.1 H Eos # (Auto) 0.3 Baso # (Auto) 0.1 Immature Gran # (Auto) 0.11 H Absolute Nucleated RBC 0.00 Immature Gran % 1 H Nucleated RBC % 0 Sodium 135 L Potassium 3.9 Chloride 98 Carbon Dioxide 25.7 Anion Gap 11 BUN 33 H Creatinine 3.4 H Estim Creat Clear Calc 21.3 L eGFR 17 L BUN/Creatinine Ratio 10 L Glucose 125 H Calculated Osmolality 278 Calcium 9.1 Corrected Calcium 9.1 Phosphorus 5.4 H Magnesium 2.3 Albumin 4.2 Ur Collection Type Clean Catch Urine Color Yellow Urine Clarity Hazy Urine pH 8.0 H Ur Specific [place] 1.033 Urine Protein 2+ A Urine Glucose (UA) Trace Urine Ketones Negative Urine Blood 3+ A Urine Nitrite Negative Urine Bilirubin Negative Urine Urobilinogen (Auto) Negative Ur Leukocyte Esterase Negative Urine RBC 611 H Urine WBC 30 H Ur Squamous Epith Cells 21 H Urine Bacteria None Quality Measures Quality Measures VTE prophylaxis Assessment & Plan Assessment Current Active Medications: Generic Name Dose Route Start Last Admin Trade Name Freq PRN Reason Stop Dose Admin Acetaminophen 650 mg 12/19/24 18:23 12/29/24 15:32 Acetaminophen 325 Mg Tablet PO 01/09/25 23:47 650 mg Q6H PRN Administration PAIN 1-6 (mild-mod Protocol Buspirone HCl 10 mg 12/11/24 21:00 12/30/24 21:16 Buspirone Hcl 5 Mg Tablet PO 01/10/25 20:59 10 mg HS CLEMENTINE Administration Carvedilol 25 mg 12/20/24 17:30 12/30/24 17:14 Carvedilol 12.5 Mg Tablet PO 01/19/25 17:29 25 mg BIDWM CLEMENTINE Administration Dextrose 25 ml 12/10/24 23:51 Dextrose 50%-Water Inj 50 Ml Syringe IV 01/09/25 23:50 Q15MIN PRN BG 50-70 responsive npo pt Dextrose 50 ml 12/10/24 23:51 12/13/24 11:33 Dextrose 50%-Water Inj 50 Ml Syringe IV 01/09/25 23:50 50 ml Q15MIN PRN Administration BG <50 OR BG <70 & pt unresponsive Doxycycline Hyclate 100 mg 12/30/24 11:45 12/30/24 21:16 Doxycycline 100 Mg Tablet PO 01/06/25 11:44 100 mg BID CLEMENTINE Administration Famotidine 20 mg 12/19/24 09:00 12/30/24 09:02 Famotidine 20 Mg Tablet PO 01/18/25 08:59 20 mg QDAY CLEMENTINE Administration Ferrous Sulfate 325 mg 12/29/24 09:00 12/30/24 09:02 Ferrous Sulf 325 Mg Tablet PO 01/28/25 08:59 325 mg DAILY CLEMENTINE Administration Glucagon 1 mg 12/10/24 23:51 Glucagon Inj 1 Mg Vial IM Q15MIN PRN BG <70, and no IV access Hydralazine HCl 10 mg 12/19/24 09:12 Hydralazine Inj 20 Mg/Ml Vial IVP 01/18/25 09:11 Q6HR PRN SBP > 180 Hydralazine HCl 50 mg 12/20/24 14:00 12/31/24 05:25 Hydralazine Hcl 25 Mg Tablet PO 01/19/25 13:59 50 mg TID CLEMENTINE Administration Hydromorphone HCl 0.75 mg 12/29/24 20:14 12/31/24 05:01 Hydromorphone Inj 2 Mg/Ml Vial IVP 01/03/25 20:13 0.75 mg Q4HR PRN Administration pain 7-10 or breakthrough Hydroxyzine HCl 25 mg 12/13/24 21:00 12/30/24 21:16 Hydroxyzine Hcl 25 Mg Tablet PO 01/12/25 20:59 25 mg HS CLEMENTINE Administration Piperacillin/Tazobactam/Dextrose 3.375 gm in 50 mls @ 12.5 mls/hr 12/30/24 21:00 12/31/24 01:15 Zosyn IV 01/06/25 20:59 Infused Q12HR CLEMENTINE Infusion Protocol Insulin Glargine 18 unit 12/15/24 21:00 12/30/24 21:15 Insulin Glargine (Lantus) 5 Unit/0.05 Ml (Per 5 Units) SC 01/14/25 20:59 18 unit HS CLEMENTINE Administration Insulin Human Lispro 0 unit 12/19/24 21:00 12/31/24 07:30 Insulin Lispro (Admelog) 1 Unit/0.01 Ml Unit SC 01/18/25 20:59 Not Given ACHS CLEMENTINE Protocol Ondansetron HCl 4 mg 12/10/24 23:48 12/22/24 22:36 Ondansetron Inj 2 Mg/Ml Inj 2 Ml IVP 01/09/25 23:47 4 mg Q6H PRN Administration NAUSEA OR VOMITING Protocol Oxycodone/Acetaminophen 1 tab 12/27/24 09:09 12/30/24 17:14 Oxycodone/Apap 5/325 Tablet PO 01/01/25 09:08 1 tab Q6HR PRN Administration PAIN SCALE 4-6 (Moderate Protocol Sennosides 1 tab 12/16/24 14:00 12/30/24 09:02 Senna Tablet PO 01/15/25 13:59 1 tab QDAY CLEMENTINE Administration Protocol Sodium Chloride 3 ml 12/11/24 14:16 12/13/24 08:41 Sodium Chloride Rt Katherine 0.9% 3 Ml Nebu INH 01/10/25 14:15 3 ml PRN PRN Administration SOLN Plan Kacy Cedillo is a 44-year-old female with past medical history of insulin-dependent type 2 diabetes, hypertension, GERD, history of valley fever untreated presented to the ED on 12/10 with episode of left flank pain, nausea/vomiting and chills will be admitted for hypertensive emergency requiring close monitoring along with acute renal failure requiring urology and nephrology consultation and IV antibiotics for cystitis.pt denied transfer for IR anterograde BL nephrostomy stents from 9 institutions, pending transfer initiation for urologic care, d/c cheng. #Acute kidney injury --biopsy-proven ATN superimposed on obstructive uropathy. CT showed numerous b/l nonobstructing renal caliculi, mod b/l hydronephrosis wo ureteral calculi, cystitis pattern Patient received a kidney biopsy which showed ATN/AIN and underlying diabetes/hypertensive nephrosclerosis Bilateral percutaneous nephrostomy tube placed, L draining well, R with minimal drainage likely 2/2 debris . 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 BUN 33 from 35, Cr 3.4 (stable) good UOP through nephrostomy tube, L>R s/p BL nephrostogram to flush R nephrostomy tube, R tube continues to have minimal drainage -No HD today -d/c cheng -primary team to discuss replacing R nephrostomy tube with Dr. Aponte -Needs outpatient tertiary care center evaluation for large bladder tumor, B ladder mass is benign, will need antegrade stents -denied transfer for IR at 9 institutions given insurance and low bed availability -transfer initated for Urology -Strict I/O's -Avoid nephrotoxic agents -Renally dose medications -Replete electrolytes as needed and follow-up with morning labs -pain managemnt: per primary team: APAP prn, NORCO 5/325 q6hr prn, dilaudid 0.75mg q4hr PRN #Acute urinary retention #Bilateral hydronephrosis #Cystitis #Complicated UTI, nephrolithiasis #Hematuria #Hypertensive emergency, improving--in fact on the lower side #Hypertension #Insulin-dependent type 2 diabetes #GERD -Managed per primary team Plan discussed with nephrology attending Dr. Miriam Kirk MD Internal Medicine PGY-1 Attending Provider Attestation/Addendum Patient seen and examined with resident physician Dr. Kirk. Note reviewed, agree with findings and recommendations. Patient with bilateral nephrostomy tubes for obstructive uropathy. Left tube seems to be making good urine. Right tube blocked. Was adjusted twice already. Significant debris noted. She has a Cheng catheter. Complaining of lower pelvic pain. On Dilaudid [id number]. Pending transfer to higher level of care for anterograde stents and bladder tumor removal. Urine output improving. Creatinine 3.4. Hold off on dialysis. Team wants to keep the dialysis catheter in due to malfunctioning right nephrostomy tube. Suspect ATN is improving care discussed with primary team..
[2024-12-31] MEDS: PIPER/TAZO 3.375 GM PREMIX 3.375 GM/50 ML BAG IV ×2 (08:56→22:10)
[2024-12-31] MEDS: FERROUS SULF 325 MG TABLET PO (08:57)
[2024-12-31] MEDS: DOXYCYCLINE 100 MG TABLET PO ×2 (08:57→22:16)
[2024-12-31] MEDS: FAMOTIDINE 20 MG TABLET PO (08:57)
--- NOTE | 2024-12-31 10:12 | PC.CM ---
Addendum entered by Raquel Varghese RN 01/01/25 19:26: 1800 Transfer on hold at this time. Dr. Friedman may decide transfer is still needed after assessing the the nephrostomy change out. Addendum entered by Raquel Varghese RN 12/31/24 17:49: 1400 I spoke to doctor at rounding today and they have put patient's transfer on hold at this time. They are going to change out the nephrostomy tube. Addendum entered by Raquel Varghese RN 12/31/24 12:28: [address] Jones and I let him know patient was declined by [facility]. He states he would like to speak to the doctor Peer to peer. I called [facility] transfer center and I provided him with the phone number to Dr. Bnejamin stating my doctor would like a peer to peer. He states he will reach out to his doctor and give him the message. He states he cannot guarantee that their doctor will call to speak to my doctor. Addendum entered by Rauqel Varghese RN 12/31/24 11:23: 1045 I received a call from [place] and I spoke to the transfer nurse Liane. She asked with we were working on getting authorization. I let her know that Karen with [employer] [facility] wanted us to try [facility]. I let Liane know that [facility] declined patient and I am sure Juanita would give authorization [facility] [place] [facility]. Liane states they would have to get written authorization first. I will reach out to Karen with [facility]. Addendum entered by Raquel Varghese RN 12/31/24 10:20: I contacted Karen with [facility] and I updated her letting her know patient was declined by [facility]. Addendum entered by Raquel Varghese RN 12/31/24 10:16: Currently patient has been declined by [facility] [place], [facility], [facility], , [place] and [facility]. Original Note: I received a call from [facility] and I spoke to Kal from the transfer center. He states [facility] and their internal medicine doctors reviewed patient and they stated patient does not need a tertiary center to have stents placed. They declined patient at this time.
[2024-12-31] MEDS: INSULIN LISPRO (AdmeLOG) 1 UNIT/0.01 ML UNIT SC ×3 (11:45→22:20)
--- NOTE | 2024-12-31 16:27 | ESPR_ITS ---
Documentation for date of: 12/31/24 Subjective Subjective Interval history: Patient seen and examined at bedside. Patient has had minimal drainage from nephrostomy site bilaterally, nephrostomy tubes were flushed via nephrostogram by interventional radiology on 12/29. Patient scheduled for replacement of right nephrostomy tube in AM., N.p.o. after midnight, pain INR PT in a.m. Cultures have been negative as of now, will continue IV antibiotics, will consider discontinuing if cultures continue to remain negative. Worsening of renal function noted today, patient does have a dialysis catheter placed, will hold dialysis for now. Nephrology is following. Patient's request for transfer has been denied by 11 facilities-due to services not being available, insurance authorization issues and other reasons per social security specialist. Will continue to proceed with transfer for now. Exam Vital Signs Temp Pulse Resp BP Pulse Ox O2 Del Method O2 Flow Rate 97.9 F 79 18 132/65 H 94 L Room Air 2 12/31/24 12:00 12/31/24 13:34 12/31/24 12:00 12/31/24 13:34 12/31/24 12:00 12/31/24 12:00 12/26/24 16:00 Narrative Exam General: No acute distress, well nourished Eye: PERRL, EOMI, normal conjunctiva, no scleral icterus HENT: Normocephalic, atraumatic, hearing intact to conversation at normal volume, moist oral mucosa Neck: Supple, non-tender, no JVD, no lymphadenopathy Lungs: Non-labored respirations, symmetric chest rise, Clear to auscultate bilaterally Heart: Peripheral pulses intact bilaterally, Regular rate and Rhythm. Abdomen: Soft, non-tender, non-distended. Bilateral nephrostomy tube noted,RIGHT side have no output, left side have 400cc or non bloody output Musculoskeletal: Normal range of motion and strength Skin: Skin is warm, dry, no rashes or lesions. Psychiatric: Cooperative, appropriate mood and affect Neuro: Cranial nerves II-XII grossly intact. Strength 5/5 throughout. Sensations intact to light touch. Objective Labs 12/31/24 05:04 12/31/24 05:04 Labs: Laboratory Results - last 24 hr 12/31/24 05:04 WBC 13.0 H D RBC 3.12 L Hgb 7.9 L Hct 25.0 L MCV 80 MCH 25.3 MCHC 31.6 RDW Std Deviation 43.3 Plt Count 478 H D Neut % (Auto) 69 Lymph % (Auto) 19 [place] % (Auto) 9 Eos % (Auto) 3 Baso % (Auto) 1 Neut # (Auto) 8.9 H Lymph # (Auto) 2.4 [place] # (Auto) 1.1 H Eos # (Auto) 0.3 Baso # (Auto) 0.1 Immature Gran # (Auto) 0.11 H Absolute Nucleated RBC 0.00 Immature Gran % 1 H Nucleated RBC % 0 Sodium 135 L Potassium 3.9 Chloride 98 Carbon Dioxide 25.7 Anion Gap 11 BUN 33 H Creatinine 3.4 H Estim Creat Clear Calc 21.3 L eGFR 17 L BUN/Creatinine Ratio 10 L Glucose 125 H Calculated Osmolality 278 Calcium 9.1 Corrected Calcium 9.1 Phosphorus 5.4 H Magnesium 2.3 Albumin 4.2 Quality Measures Quality Measures VTE prophylaxis Assessment & Plan Assessment Current Active Medications: Generic Name Dose Route Start Last Admin Trade Name Freq PRN Reason Stop Dose Admin Acetaminophen 650 mg 12/19/24 18:23 12/29/24 15:32 Acetaminophen 325 Mg Tablet PO 01/09/25 23:47 650 mg Q6H PRN Administration PAIN 1-6 (mild-mod Protocol Buspirone HCl 10 mg 12/11/24 21:00 12/30/24 21:16 Buspirone Hcl 5 Mg Tablet PO 01/10/25 20:59 10 mg HS CLEMENTINE Administration Carvedilol 25 mg 12/20/24 17:30 12/31/24 08:56 Carvedilol 12.5 Mg Tablet PO 01/19/25 17:29 25 mg BIDWM CLEMENTINE Administration Dextrose 25 ml 12/10/24 23:51 Dextrose 50%-Water Inj 50 Ml Syringe IV 01/09/25 23:50 Q15MIN PRN BG 50-70 responsive npo pt Dextrose 50 ml 12/10/24 23:51 12/13/24 11:33 Dextrose 50%-Water Inj 50 Ml Syringe IV 01/09/25 23:50 50 ml Q15MIN PRN Administration BG <50 OR BG <70 & pt unresponsive Doxycycline Hyclate 100 mg 12/30/24 11:45 12/31/24 08:57 Doxycycline 100 Mg Tablet PO 01/06/25 11:44 100 mg BID CLEMENTINE Administration Famotidine 20 mg 12/19/24 09:00 12/31/24 08:57 Famotidine 20 Mg Tablet PO 01/18/25 08:59 20 mg QDAY CLEMENTINE Administration Ferrous Sulfate 325 mg 12/29/24 09:00 12/31/24 08:57 Ferrous Sulf 325 Mg Tablet PO 01/28/25 08:59 325 mg DAILY CLEMENTINE Administration Glucagon 1 mg 12/10/24 23:51 Glucagon Inj 1 Mg Vial IM Q15MIN PRN BG <70, and no IV access Hydralazine HCl 10 mg 12/19/24 09:12 Hydralazine Inj 20 Mg/Ml Vial IVP 01/18/25 09:11 Q6HR PRN SBP > 180 Hydralazine HCl 50 mg 12/20/24 14:00 12/31/24 13:34 Hydralazine Hcl 25 Mg Tablet PO 01/19/25 13:59 50 mg TID CLEMENTINE Administration Hydromorphone HCl 0.75 mg 12/29/24 20:14 12/31/24 13:39 Hydromorphone Inj 2 Mg/Ml Vial IVP 01/03/25 20:13 0.75 mg Q4HR PRN Administration pain 7-10 or breakthrough Hydroxyzine HCl 25 mg 12/13/24 21:00 12/30/24 21:16 Hydroxyzine Hcl 25 Mg Tablet PO 01/12/25 20:59 25 mg HS CLEMENTINE Administration Piperacillin/Tazobactam/Dextrose 3.375 gm in 50 mls @ 12.5 mls/hr 12/30/24 21:00 12/31/24 08:56 Zosyn IV 01/06/25 20:59 12.5 mls/hr Q12HR CLEMENTINE Administration Protocol Insulin Glargine 18 unit 12/15/24 21:00 12/30/24 21:15 Insulin Glargine (Lantus) 5 Unit/0.05 Ml (Per 5 Units) SC 01/14/25 20:59 18 unit HS CLEMENTINE Administration Insulin Human Lispro 0 unit 12/19/24 21:00 12/31/24 11:45 Insulin Lispro (Admelog) 1 Unit/0.01 Ml Unit SC 01/18/25 20:59 2 unit ACHS CLEMENTINE Administration Protocol Naloxegol 25 mg 12/31/24 16:15 Naloxegol Oxalate 25 Mg Tablet (Non-Formulary) PO 01/30/25 16:14 ACBR CLEMENTINE Ondansetron HCl 4 mg 12/10/24 23:48 12/22/24 22:36 Ondansetron Inj 2 Mg/Ml Inj 2 Ml IVP 01/09/25 23:47 4 mg Q6H PRN Administration NAUSEA OR VOMITING Protocol Oxycodone/Acetaminophen 1 tab 12/27/24 09:09 12/30/24 17:14 Oxycodone/Apap 5/325 Tablet PO 01/01/25 09:08 1 tab Q6HR PRN Administration PAIN SCALE 4-6 (Moderate Protocol Sennosides 1 tab 12/16/24 14:00 12/31/24 08:57 Senna Tablet PO 01/15/25 13:59 1 tab QDAY CLEMENTINE Administration Protocol Sodium Chloride 3 ml 12/11/24 14:16 12/13/24 08:41 Sodium Chloride Rt Katherine 0.9% 3 Ml Nebu INH 01/10/25 14:15 3 ml PRN PRN Administration SOLN Plan 44-year-old female with past medical history of insulin-dependent type 2 diabetes, hypertension, GERD, history of valley fever presented to the ED on 12/10 with episode of left flank pain, nausea/vomiting and chills will be admitted for hypertensive emergency requiring close monitoring along with acute renal failure requiring urology and nephrology consultation and IV antibiotics for cystitis #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 Friedman: found Bilateral hydronephrosis, large bladder mass occupying posterior bladder wall occupying the ureteral orifices. -After cystoscopy, patient noted that she had history of cervical cancer 3 years ago. -MRI abd/pelvis: Mild to moderate bilateral hydronephorsis, and dilated ureters extending to the bladder. -Per nephrology, the bladder mass is confined to the bladder. -Patient received bilatereal percutaneous nephrostomy tube placement on 12/19/2024 -12/24/2024 Creatinine is 3.8. Total Output is 4.3L. Right nephrostomy tube output is markedly decreased, with bloody urine noted in the drainage bag. Plan: -Patient underwent nephrostogramon 12/26, has satisfactory drainage from bilateral nephrostomy tubes. Right nephrostomy tube nephrostogram patient has shows that patient has extensive debris's in the renal collecting system. -Patient scheduled for replacement of right-sided nephrostomy tube in AM. -Case was discussed with urologist who recommended anterograde stent placed by interventional radiologist, was discussed with interventional radiology, IR interventional radiologist informed that he is unable to perform the procedure, per interventional radiology there is extensive debris's, patient needs stent placement to improve drainage from nephrostomy tube as well. -Case was discussed with the urologist again urology said that the patient has extensive mass which is occlusive, and patient will need higher level of care interventional radiology procedure for anterograde stent placement. Transfer nurse was informed, transfer process initiated. - Transfer to higher level of care for interventional radiology to place anterograde stent. #Acute renal failure 2/2 Urinary Retention 2/2 Obstructive Uropathy Patient experienced acute renal failure, likely secondary to obstructive uropathy given bladder mass noted on cystoscopy report. Previous UA noted to have hematuria. Improving renal function with nephrostomy tubes in place. Diagnostics: -Repeat UA 12/14 Urine protein +1 Urine blood +1 RBC 5 -12/20/2024 Patient produced 4.2 L of urine . -12/22/2024 Patient's output was 1155 mL. Hematuria was observed in the output from the right nephrostomy tube, while the left nephrostomy output remained clear and unremarkable. Cr level of 3.8 Plan: -Nephrology consulted, Dr. Pierre, - Pending nuclear renal scan, IgA levels for IgA nephropathy, Hepatitis A/B titers, ANCA titers, pending results, appreciate recommendations -Avoid nephrotoxic agents -Renally dose medications -Replete electrolytes as needed and follow-up with morning labs -Currently, hemodialysis is on hold. #Acute urinary retention, improving #Bilateral hydronephrosis, likely secondary to obstruction #Cystitis #Complicated UTI, nephrolithiasis #Hematuria -On exam, patient no longer has left flank flank with CVA tenderness -CT abdomen pelvis shows a thick-walled cavitary lesion in the right middle lobe and a 22 mm pulmonary nodule in the anterior right lower lobe, numerous bilateral nonobstructing renal calculi, moderate bilateral hydronephrosis without calculi and cystitis -Based on CTAP presentation, urinary retention due to intake of meclizine was suspected as patient started to take it 1wk everyday prior to coming to the hospital. -Renal Ultrasound- Moderate bilateral hydronephrosis Plan: -Advised to stop taking meclizine. -Finished receiving IV ceftriaxone 2g IV qd (12/11-12/16). Rec IV ceftriaxone 1g IV qd (12/17-12/23) #Hypertensive emergency, improving #Hypertension Patient has significant history of hypertension on home antihypertensives Presenting to the ED with acute renal failure and elevated systolic pressure in the 200s Plan: - Coreg 25 mg PO BID - Hydralazine 50mg PO TID #Insulin-dependent type 2 diabetes Pertinent labs: 06/2024 A1C 11.1 12/11/24 A1C 8.0 Patient apparently takes 30 units of long-acting insulin twice a day Plan: -Insulin Glargine 18 units at bedtime -Sliding scale #History of Valley Fever -CTAP(03/21/2024):30 mm thick-walled cavitary lesion partially visualized right midlung,, 22 mm pulmonary nodule anterior right lower lobe -CXR(07/16/2024): Poorly defined nodular density 18 mm in the right lower lobe, -CXR (12/10/2024):Opacity right base which may represent a pulmonary mass, 19 mm -CTAP(12/10/2024): thick walled 25 mm cavitary lesion in the right middle lobe and 22mm pulmonary nodule anterior right lower lobe Plan: -Fairly stable right lung pulmonary nodule. -Will continue to monitor. #GERD Chronic medical problems: All pertinent to the following presentation Plan: -Continue Pantoprazole 40 mg PO QD Health Maintenance: Lines: PIV Diet: Renal and carb consistent low, n.p.o. after midnight Bowel: Senna GI prophylaxis: Pantoprazole 40 mg PO QD DVT prophylaxis: SCD Dispo: Pending transfer Code: Full Assessment and plan discussed with my attending physician Dr. Benjamin. Dr. Jones ([id number])- Internal medicine resident Attending Provider Attestation/Addendum I attest that I was physically present for the evaluation, physical examination, lab and imaging review of the patient with the residents. I discussed the case with the residents and agree with the findings and plans of care as documented above. At bedside today, patient continues to complain of right-sided flank pain. Continues to have minimal drainage from right nephrostomy tube. Discussed with IR, patient is planned for right nephrostomy tube placement tomorrow. We will obtain coagulation panel and keep her n.p.o. after midnight. Urinalysis obtained yesterday showed 30 WBC, 611 RBCs. Does not have any febrile episodes since yesterday, we will continue with IV antibiotics, pending blood culture and urine culture. Kidney function continues to worsen, BUN/creatinine of 33/3.4 today., Patient has dialysis catheter in place, nephrology following closely. Patient is awaiting for transfer to [facility] for placement of anterograde ureteric stents. Sally Benjamin MD
--- NOTE | 2024-12-31 16:27 | PC.SS ---
Follow up note: Replace right nephrostomy tube. Pt will return home upon dc.
[2024-12-31] MEDS: NALOXEGOL OXALATE 25 MG TABLET (NON-FORMULARY) PO (16:49)
[2024-12-31] MEDS: INSULIN GLARGINE (Lantus) 5 UNIT/0.05 ML (PER 5 UNITS) 18 UNIT SC (22:20)
[2025-01-01] VITALS (19 sets, daily range): BP systolic 101–152; BP diastolic 50–79; PULSE 66–78; RESP 16–20; TEMP 36.2–37.2; O2SAT 92–100
--- NOTE | 2025-01-01 | XR_ITS ---
Examination: Attempted right nephrostomy drainage tube placement INDICATIONS: Bladder cancer, with hydronephrosis, need for temporary diverting nephrostomy catheter on the right side Date and time: January 01, 2025 1538 hours TECHNIQUE AND FINDINGS: Removal of nonfunctioning nephrostomy catheter Ultrasound assessment right renal collecting system Informed consent provided. Timeout performed. Skin prepped over the right flank and sterile drape applied maximum barrier sterile technique hand hygiene ultrasound sterile technique 1% lidocaine administered for local anesthesia Unsuccessful needle access right renal collecting system IMPRESSION: Unsuccessful needle access right renal collecting system
[2025-01-01] MEDS: ONDANSETRON INJ 2 MG/ML INJ 2 ML 4 MG IVP (00:30)
[2025-01-01] MEDS: HYDROmorphone INJ 2 MG/ML VIAL 0.75 MG IVP ×5 (01:34→23:06)
[2025-01-01 06:28] LABS: INR 1.1 (0.9-1.3); Partial Thromboplastin Time 34.7 Seconds (22.0-36.0); Prothrombin Time 11.5 Seconds (9.0-12.2)
[2025-01-01 06:29] LABS: Basophils # (Auto) 0.1 Thou/mm3 (0.0-0.2); Basophils % (Auto) 0 % (0-2.5); Eosinophils # (Auto) 0.2 Thou/mm3 (0.0-0.5); Eosinophils % (Auto) 1 % (0-10); Hematocrit 24.2 % (36.0-46.0); Immature Granulocytes Auto 0.06 Thou/mm3 (0.00-0.00); Lymphocytes # (Auto) 2.1 Thou/mm3 (1.0-4.8); Lymphocytes % (Auto) 19 % (10-50); Mean Corpuscular HGB Conc 31.4 g/dl (31.0-37.0); Mean Corpuscular Hemoglobin 25.2 pg (25.0-35.0); Mean Corpuscular Volume 80 fL (80-100); Monocytes # (Auto) 0.9 Thou/mm3 (0.0-0.8); Monocytes % (Auto) 8 % (0-12); Neutrophils # (Auto) 8.0 Thou/mm3 (1.8-7.7); Neutrophils % (Auto) 71 % (37-80); Nucleated Red Blood Cell # 0.00 Thou/mm3 (0.00-0.00); Nucleated Red Blood Cell % 0 /100 WBC (0); Platelet Count 463 Thou/mm3 (140-440); RDW Standard Deviation 43.3 fL (36.4-46.3); Red Blood Count 3.02 Miln/mm3 (4.00-5.20); White Blood Count 11.3 Thou/mm3 (3.6-11.0)
[2025-01-01 06:33] LABS: Hemoglobin 7.6 g/dL (12.0-16.0)
[2025-01-01 06:57] LABS: Alanine Aminotransferase < 7 U/L (10-49); Albumin, Serum 4.3 gm/dL (3.5-5.0); Albumin/Globulin Ratio 1.4 (1.2-2.2); Alkaline Phosphatase 140 U/L (46-116); Anion Gap 13 (7-16); Aspartate Amino Transferase 11 U/L (0-34); BUN/Creatinine Ratio 8 Ratio (12-20); Bilirubin,Total 0.5 mg/dL (0.3-1.2); Blood Urea Nitrogen 30 mg/dL (9-23); Calcium 9.6 mg/dL (8.3-10.6); Calcium (Corrected) 9.6 mg/dL (8.5-10.1); Carbon Dioxide 23.9 mMol/L (20.0-31.0); Chloride 99 mMol/L (98-107); Creatinine (Component) 3.6 mg/dL (0.6-1.3); Estimated Creatinine Clearance 20.0 mL/min (>60); Globulin 3.1 gm/dL (2.3-3.5); Glucose 125 mg/dL (74-106); Magnesium 2.2 mg/dL (1.6-2.6); Osmolality,Calculated 279 (275-295); Potassium 4.1 mMol/L (3.4-5.1); Sodium 136 mMol/L (136-145); Total Protein 7.4 gm/dL (5.7-8.2); eGFR 16 See Note
--- NOTE | 2025-01-01 07:17 | PD.RESPRO ---
Documentation for date of: 01/01/25 Subjective Subjective Interval history: Ms. Cedillo is a 44-year-old female with past medical history of insulin-dependent type 2 diabetes, hypertension, GERD, history of valley fever untreated presented to the ED on 12/10 with episode of left flank pain, nausea/vomiting and chills. Patient states that the chills started roughly an hour ago but that she has been having progressively worsening left flank pain radiating to her back. Patient denies having any dysuria but does state that she has been having lilia hematuria for several days. Patient denies having any fevers but she does state that she has been having chills. Patient also complains of suprapubic pain and mentions that she feels pain near her ovaries. Patient has not seen PCP regarding the symptoms but she was seen several weeks ago for GERD like symptoms and was given medications. Patient otherwise denies having any concerning symptoms such as chest pain, dizziness, shortness of breath. In the ED, patient presented in hypertensive emergency with a blood pressure 187/83, other vitals wnl. Pertinent lab findings included WBC of 9, hemoglobin 7.9, potassium of 5.4, BUN of 31, creatinine 3.9, EGFR of 14, magnesium 1.6, troponin less than 0.02, BNP of 235, urinalysis shows hematuria and mild pyuria but no bacteria. Chest x-ray shows mild prominence of ventricles along with opacity in the right base concerning for pulmonary mass, EKG shows sinus rhythm without any concerning ST changes and CT abdomen pelvis shows a thick-walled cavitary lesion in the right middle lobe and a 22 mm pulmonary nodule in the anterior right lower lobe, numerous bilateral nonobstructing renal calculi, moderate bilateral hydronephrosis without calculi and cystitis. Patient will be admitted for hypertensive emergency requiring close monitoring along with acute renal failure requiring urology and nephrology consultation and IV antibiotics for cystitis Upon seeing the patient currently, she is on Mg Sulfate, Ceftriaxone, Carvedilol 6.25 mg, and maintenance IV fluids with a slightly improved blood pressure of 168/88 with the rest of vitals wnl. Patient states she is currently feeling much better now. States that she still has some nausea, L flank pain radiating to back and some dizziness when she stands up for too long. Patient states she has noticed blood in her urine today and ever since March. Patient endorses having bowel movements. Patient denies fever, headache, chest pain, shortness of breath, vomiting. 12/29/2024: Patient seen and examined at bedside. She is sitting upright at the edge of the bed crying due to pain in RLQ that extends towards R groin and leg, likely 2/2 to bladder mass.patient states that pain is not improved with oxycodone, but dilauded helps. Blood sugar 131, BP 143/80, WBC 12.8, Hgb stable, Bilateral nephrostomy tubes, R tube is not draining, Left tube is draining clear yellow urine 900cc. Cheng catheter with minimal output Hold HD, remove HD catheter, pain control, pending transfer to tertiary care center for anterograde stents and bladder mass removal. 12/30/24: Patient seen and examined at bedside. She is laying in bed and continues to report RLQ abdominal pain that extends towards R groin and leg. pt is s/p BL nephrogram on 12/29 to flush the nephrostomy tubes given R tube not draining. today there is minimal drainage from R tube, L continues to have good output 1535. HD cath remains in place, Pending transfer (if transfer for IR at higher care facility is rejected, will persue transfer for urology) no HD today, Cr stable 3.3 from 3.2. 12/31/2024:Patient seen and examined at bedside. She is laying in bed and continues to report RLQ abdominal pain that extends towards R groin and leg. pt getting regular Dilaudid. D/c cheng if daily output <100, downgrade pt from [facility] to [facility] [place] for shower. primary team will discuss with Dr. Aponte about replacing R nephrostomy tube given minimal output. L continues to have good output. HD cath remains in place. Pt transfer for IR has heen denied at 9 institutions due to insurance not being accepted or bed availability, Cr 3.4 from 3.3, NO HD today. Plan for initating urology transfer. 01/01/2025: Patient seen and examined at bedside. She is laying flat in bed with blankets, she reports that she is cold. She continues to report RLQ abdominal pain that extends towards the R groin and leg. Per primary team, plan to replace R nephrostomy tube given negligible output. Left nephrostomy tube continues to have good output. Cr is climbing steadily, 3.6 from 3.4, Plan to hold HD. Pt transfer for IR has been rejected at 11 institutions. plan for initiating urology transfer. Exam Vital Signs Temp Pulse Resp BP Pulse Ox O2 Del Method O2 Flow Rate 98.9 F 68 20 143/70 H 97 Room Air 2 01/01/25 00:00 01/01/25 04:00 01/01/25 04:00 01/01/25 04:00 01/01/25 04:00 01/01/25 04:00 12/26/24 16:00 Narrative Exam GENERAL APPEARANCE: Patient resting comfortably in bed, adequately hydrated and nourished. HEENT: Poor dentition CARDIOVASCULAR: well perfused on visual inspection LUNGS/CHEST: nl work of breathing. no accessory muscle usage. ABDOMEN: c/o RLQ pain, tender to palpation. Soft, non distended EXTREMITIES: No edema, clubbing or cyanosis. SKIN: Skin exam normal without any rashes. Right IJ PermCath MUSCULOSKELETAL: Bilateral nephrostomy tubes, R with no output and L with clear urine drainage. PSYCHIATRIC: Normal mood, affect LYMPHATICS: No lymphadenopathy noted NEUROLOGICAL : No neurological deficits Objective Labs 01/01/25 05:10 01/01/25 05:10 Labs: Laboratory Results - last 24 hr 01/01/25 05:10 WBC 11.3 H RBC 3.02 L Hgb 7.6 L Hct 24.2 L MCV 80 MCH 25.2 MCHC 31.4 RDW Std Deviation 43.3 Plt Count 463 H Neut % (Auto) 71 Lymph % (Auto) 19 Pratt % (Auto) 8 Eos % (Auto) 1 Baso % (Auto) 0 Neut # (Auto) 8.0 H Lymph # (Auto) 2.1 Pratt # (Auto) 0.9 H Eos # (Auto) 0.2 Baso # (Auto) 0.1 Immature Gran # (Auto) 0.06 H Absolute Nucleated RBC 0.00 Immature Gran % 1 H Nucleated RBC % 0 PT 11.5 INR 1.1 APTT 34.7 Sodium 136 Potassium 4.1 Chloride 99 Carbon Dioxide 23.9 Anion Gap 13 BUN 30 H Creatinine 3.6 H Estim Creat Clear Calc 20.0 L eGFR 16 L BUN/Creatinine Ratio 8 L Glucose 125 H Calculated Osmolality 279 Calcium 9.6 Corrected Calcium 9.6 Magnesium 2.2 Total Bilirubin 0.5 AST 11 ALT < 7 L Alkaline Phosphatase 140 H D Total Protein 7.4 Albumin 4.3 Globulin 3.1 Albumin/Globulin Ratio 1.4 Quality Measures Quality Measures VTE prophylaxis Assessment & Plan Assessment Current Active Medications: Generic Name Dose Route Start Last Admin Trade Name Freq PRN Reason Stop Dose Admin Acetaminophen 650 mg 12/19/24 18:23 12/29/24 15:32 Acetaminophen 325 Mg Tablet PO 01/09/25 23:47 650 mg Q6H PRN Administration PAIN 1-6 (mild-mod Protocol Buspirone HCl 10 mg 12/11/24 21:00 12/31/24 22:10 Buspirone Hcl 5 Mg Tablet PO 01/10/25 20:59 10 mg HS CLEMENTINE Administration Carvedilol 25 mg 12/20/24 17:30 12/31/24 16:49 Carvedilol 12.5 Mg Tablet PO 01/19/25 17:29 25 mg BIDWM CLEMENTINE Administration Dextrose 25 ml 12/10/24 23:51 Dextrose 50%-Water Inj 50 Ml Syringe IV 01/09/25 23:50 Q15MIN PRN BG 50-70 responsive npo pt Dextrose 50 ml 12/10/24 23:51 12/13/24 11:33 Dextrose 50%-Water Inj 50 Ml Syringe IV 01/09/25 23:50 50 ml Q15MIN PRN Administration BG <50 OR BG <70 & pt unresponsive Doxycycline Hyclate 100 mg 12/30/24 11:45 12/31/24 22:16 Doxycycline 100 Mg Tablet PO 01/06/25 11:44 100 mg BID CLEMENTINE Administration Famotidine 20 mg 12/19/24 09:00 12/31/24 08:57 Famotidine 20 Mg Tablet PO 01/18/25 08:59 20 mg QDAY CLEMENTINE Administration Ferrous Sulfate 325 mg 12/29/24 09:00 12/31/24 08:57 Ferrous Sulf 325 Mg Tablet PO 01/28/25 08:59 325 mg DAILY CLEMENTINE Administration Glucagon 1 mg 12/10/24 23:51 Glucagon Inj 1 Mg Vial IM Q15MIN PRN BG <70, and no IV access Hydralazine HCl 10 mg 12/19/24 09:12 Hydralazine Inj 20 Mg/Ml Vial IVP 01/18/25 09:11 Q6HR PRN SBP > 180 Hydralazine HCl 50 mg 12/20/24 14:00 01/01/25 06:04 Hydralazine Hcl 25 Mg Tablet PO 01/19/25 13:59 Not Given TID CLEMENTINE Hydromorphone HCl 0.75 mg 12/29/24 20:14 01/01/25 01:34 Hydromorphone Inj 2 Mg/Ml Vial IVP 01/03/25 20:13 0.75 mg Q4HR PRN Administration pain 7-10 or breakthrough Hydroxyzine HCl 25 mg 12/13/24 21:00 12/31/24 22:10 Hydroxyzine Hcl 25 Mg Tablet PO 01/12/25 20:59 25 mg HS CLEMENTINE Administration Piperacillin/Tazobactam/Dextrose 3.375 gm in 50 mls @ 12.5 mls/hr 12/30/24 21:00 12/31/24 22:10 Zosyn IV 01/06/25 20:59 12.5 mls/hr Q12HR CLEMENTINE Administration Protocol Insulin Glargine 18 unit 12/15/24 21:00 12/31/24 22:20 Insulin Glargine (Lantus) 5 Unit/0.05 Ml (Per 5 Units) SC 01/14/25 20:59 18 unit HS CLEMENTINE Administration Insulin Human Lispro 0 unit 01/01/25 06:15 01/01/25 06:24 Insulin Lispro (Admelog) 1 Unit/0.01 Ml Unit SC 01/31/25 06:14 Not Given Q6HR CLEMENTINE Protocol Naloxegol 25 mg 12/31/24 16:15 01/01/25 06:05 Naloxegol Oxalate 25 Mg Tablet (Non-Formulary) PO 01/30/25 16:14 Not Given ACBR CLEMENTINE Ondansetron HCl 4 mg 12/10/24 23:48 01/01/25 00:30 Ondansetron Inj 2 Mg/Ml Inj 2 Ml IVP 01/09/25 23:47 4 mg Q6H PRN Administration NAUSEA OR VOMITING Protocol Oxycodone/Acetaminophen 1 tab 12/27/24 09:09 12/30/24 17:14 Oxycodone/Apap 5/325 Tablet PO 01/01/25 09:08 1 tab Q6HR PRN Administration PAIN SCALE 4-6 (Moderate Protocol Sennosides 1 tab 12/16/24 14:00 12/31/24 08:57 Senna Tablet PO 01/15/25 13:59 1 tab QDAY CLEMENTINE Administration Protocol Sodium Chloride 3 ml 12/11/24 14:16 12/13/24 08:41 Sodium Chloride Rt Katherine 0.9% 3 Ml Nebu INH 01/10/25 14:15 3 ml PRN PRN Administration SOLN Plan Kacy Cedillo is a 44-year-old female with past medical history of insulin-dependent type 2 diabetes, hypertension, GERD, history of valley fever untreated presented to the ED on 12/10 with episode of left flank pain, nausea/vomiting and chills will be admitted for hypertensive emergency requiring close monitoring along with acute renal failure requiring urology and nephrology consultation and IV antibiotics for cystitis. pt denied transfer for IR anterograde BL nephrostomy stents from 11 institutions, pending transfer initiation for urologic care, pending replacement of R nephrostomy tube. holding HD #Acute kidney injury --biopsy-proven ATN superimposed on obstructive uropathy. #R Nephrostomy tube w scant drainage, Cr uptrending, Likely R hydronephrosis. CT showed numerous b/l nonobstructing renal caliculi, mod b/l hydronephrosis wo ureteral calculi, cystitis pattern Patient received a kidney biopsy which showed ATN/AIN and underlying diabetes/hypertensive nephrosclerosis Bilateral percutaneous nephrostomy tube placed, L draining well, R with minimal drainage likely 2/2 debris . 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 01/01: BUN 30 from 33, Cr 3.6 (slowly uptrending) good UOP through nephrostomy tube, L>R s/p BL nephrostogram to flush R nephrostomy tube, R tube continues to have negligable output query if replacing R tube that has poor output likely 2/2 debris thus relieving the R kidney and subsequently the Cr may decrease which will prevent her from needing HD. PLAN -No HD today -pending IR replacement of R nephrostomy tube with Dr. Aponte -Needs outpatient tertiary care center evaluation for large bladder tumor, Bladder mass is benign, will need antegrade stents -denied transfer for IR at 11 institutions given insurance and low bed availability -transfer initated for Urology -Strict I/O's -Avoid nephrotoxic agents -Renally dose medications -Replete electrolytes as needed and follow-up with morning labs -pain managemnt: per primary team: APAP prn, NORCO 5/325 q6hr prn, dilaudid 0.75mg q4hr PRN #Acute urinary retention #Bilateral hydronephrosis #Cystitis #Complicated UTI, nephrolithiasis #Hematuria #Hypertensive emergency, improving--in fact on the lower side #Hypertension #Insulin-dependent type 2 diabetes #GERD -Managed per primary team Plan discussed with nephrology attending Dr. Miriam Kirk MD Internal Medicine PGY-1 Attending Provider Attestation/Addendum Patient seen and examined with resident physician Dr. Kirk. Note reviewed, agree with findings and recommendations. Patient with bilateral nephrostomy tubes for obstructive uropathy. Left tube seems to be making good urine. Right tube blocked. Was adjusted twice already. Significant debris noted. She has a Cheng catheter. Complaining of lower pelvic pain. On Dilaudid [id number]. Pending transfer to higher level of care for anterograde stents and bladder tumor removal. Urine output improving. will keep the dialysis catheter in due to malfunctioning right nephrostomy tube. Suspect ATN is improving care discussed with primary team. Possibly right nephrostomy tube exchange today. Unfortunately 11 hospitals declined the transfer. Spoke to Dr. Vidal-will need higher level of care Noted mild elevation in creatinine today. Will monitor closely. Dialysis still on hold.
[2025-01-01] MEDS: PIPER/TAZO 3.375 GM PREMIX 3.375 GM/50 ML BAG IV (08:21)
[2025-01-01] MEDS: FAMOTIDINE 20 MG TABLET PO (08:22)
[2025-01-01] MEDS: FERROUS SULF 325 MG TABLET PO (08:22)
[2025-01-01] MEDS: DOXYCYCLINE 100 MG TABLET PO (08:22)
[2025-01-01] MEDS: HEPARIN SOD INJ 1000 UNIT/ML VIAL 10 ML 3800 UNIT INDWELLCAT (08:26)
[2025-01-01] MEDS: EPOETIN ALFA-EPBX INJ 10,000 UNIT/ML VIAL (ESRD) 10000 UNIT IV (10:20)
--- NOTE | 2025-01-01 12:00 | PD.RESPRO ---
Documentation for date of: 01/01/25 Subjective Subjective Interval history: Patient seen and examined at bedside. Requiring Dilaudid for pain management regularly. Patient has had minimal drainage from nephrostomy site bilaterally, nephrostomy tubes were flushed via nephrostogram by interventional radiology on 12/29. Patient scheduled for replacement of right nephrostomy tube today., Currently NPO. Discontinued IV antibiotics Worsening of renal function noted today, patient does have a dialysis catheter placed, will hold dialysis for now. Nephrology is following. Will likely need dialysis in a.m. Patient's request for transfer has been denied by 11 facilities-due to services not being available, insurance authorization issues and other reasons per social and political studies professor. Will continue to proceed with transfer for now. Will follow-up with urology as well. Exam Vital Signs Temp Pulse Resp BP Pulse Ox O2 Del Method O2 Flow Rate 97.5 F 71 17 132/75 H 96 Room Air 4 01/01/25 16:00 01/01/25 16:00 01/01/25 16:00 01/01/25 16:00 01/01/25 16:00 01/01/25 16:00 01/01/25 14:43 Narrative Exam General: No acute distress, well nourished Eye: PERRL, EOMI, normal conjunctiva, no scleral icterus HENT: Normocephalic, atraumatic, hearing intact to conversation at normal volume, moist oral mucosa Neck: Supple, non-tender, no JVD, no lymphadenopathy Lungs: Non-labored respirations, symmetric chest rise, Clear to auscultate bilaterally Heart: Peripheral pulses intact bilaterally, Regular rate and Rhythm. Abdomen: Soft, non-tender, non-distended. Bilateral nephrostomy tube noted,RIGHT side have no output, left side have 400cc or non bloody output Musculoskeletal: Normal range of motion and strength Skin: Skin is warm, dry, no rashes or lesions. Psychiatric: Cooperative, appropriate mood and affect Neuro: Cranial nerves II-XII grossly intact. Strength 5/5 throughout. Sensations intact to light touch. Objective Labs 01/01/25 05:10 01/01/25 05:10 Labs: Laboratory Results - last 24 hr 01/01/25 05:10 WBC 11.3 H RBC 3.02 L Hgb 7.6 L Hct 24.2 L MCV 80 MCH 25.2 MCHC 31.4 RDW Std Deviation 43.3 Plt Count 463 H Neut % (Auto) 71 Lymph % (Auto) 19 [place] % (Auto) 8 Eos % (Auto) 1 Baso % (Auto) 0 Neut # (Auto) 8.0 H Lymph # (Auto) 2.1 [place] # (Auto) 0.9 H Eos # (Auto) 0.2 Baso # (Auto) 0.1 Immature Gran # (Auto) 0.06 H Absolute Nucleated RBC 0.00 Immature Gran % 1 H Nucleated RBC % 0 PT 11.5 INR 1.1 APTT 34.7 Sodium 136 Potassium 4.1 Chloride 99 Carbon Dioxide 23.9 Anion Gap 13 BUN 30 H Creatinine 3.6 H Estim Creat Clear Calc 20.0 L eGFR 16 L BUN/Creatinine Ratio 8 L Glucose 125 H Calculated Osmolality 279 Calcium 9.6 Corrected Calcium 9.6 Magnesium 2.2 Total Bilirubin 0.5 AST 11 ALT < 7 L Alkaline Phosphatase 140 H D Total Protein 7.4 Albumin 4.3 Globulin 3.1 Albumin/Globulin Ratio 1.4 Quality Measures Quality Measures VTE prophylaxis Assessment & Plan Assessment Current Active Medications: Generic Name Dose Route Start Last Admin Trade Name Freq PRN Reason Stop Dose Admin Acetaminophen 650 mg 12/19/24 18:23 12/29/24 15:32 Acetaminophen 325 Mg Tablet PO 01/09/25 23:47 650 mg Q6H PRN Administration PAIN 1-6 (mild-mod Protocol Buspirone HCl 10 mg 12/11/24 21:00 12/31/24 22:10 Buspirone Hcl 5 Mg Tablet PO 01/10/25 20:59 10 mg HS CLEMENTINE Administration Carvedilol 25 mg 12/20/24 17:30 01/01/25 08:22 Carvedilol 12.5 Mg Tablet PO 01/19/25 17:29 25 mg BIDWM CLEMENTINE Administration Dextrose 25 ml 12/10/24 23:51 Dextrose 50%-Water Inj 50 Ml Syringe IV 01/09/25 23:50 Q15MIN PRN BG 50-70 responsive npo pt Dextrose 50 ml 12/10/24 23:51 12/13/24 11:33 Dextrose 50%-Water Inj 50 Ml Syringe IV 01/09/25 23:50 50 ml Q15MIN PRN Administration BG <50 OR BG <70 & pt unresponsive Famotidine 20 mg 12/19/24 09:00 01/01/25 08:22 Famotidine 20 Mg Tablet PO 01/18/25 08:59 20 mg QDAY CLEMENTINE Administration Ferrous Sulfate 325 mg 12/29/24 09:00 01/01/25 08:22 Ferrous Sulf 325 Mg Tablet PO 01/28/25 08:59 325 mg DAILY CLEMENTIEN Administration Glucagon 1 mg 12/10/24 23:51 Glucagon Inj 1 Mg Vial IM Q15MIN PRN BG <70, and no IV access Heparin Sodium (Porcine) 3,800 unit 01/01/25 08:24 01/01/25 08:26 Heparin Sod Inj 1000 Unit/Ml Vial 10 Ml INDWELLCAT 01/15/25 08:23 3,800 unit X1 PRN Administration DIALYSIS Hydralazine HCl 10 mg 12/19/24 09:12 Hydralazine Inj 20 Mg/Ml Vial IVP 01/18/25 09:11 Q6HR PRN SBP > 180 Hydralazine HCl 50 mg 12/20/24 14:00 01/01/25 15:16 Hydralazine Hcl 25 Mg Tablet PO 01/19/25 13:59 50 mg TID CLEMENTINE Administration Hydromorphone HCl 0.75 mg 01/01/25 10:24 01/01/25 12:22 Hydromorphone Inj 2 Mg/Ml Vial IVP 01/03/25 20:13 0.75 mg Q4HR PRN Administration pain 7-10 or breakthrough Hydroxyzine HCl 25 mg 12/13/24 21:00 12/31/24 22:10 Hydroxyzine Hcl 25 Mg Tablet PO 01/12/25 20:59 25 mg HS CLEMENTINE Administration Insulin Glargine 18 unit 12/15/24 21:00 12/31/24 22:20 Insulin Glargine (Lantus) 5 Unit/0.05 Ml (Per 5 Units) SC 01/14/25 20:59 18 unit HS CLEMENTINE Administration Insulin Human Lispro 0 unit 01/01/25 21:00 Insulin Lispro (Admelog) 1 Unit/0.01 Ml Unit SC 01/31/25 20:59 ACHS [facility] Protocol Naloxegol 25 mg 12/31/24 16:15 01/01/25 06:05 Naloxegol Oxalate 25 Mg Tablet (Non-Formulary) PO 01/30/25 16:14 Not Given ACBR CLEMENTINE Ondansetron HCl 4 mg 12/10/24 23:48 01/01/25 00:30 Ondansetron Inj 2 Mg/Ml Inj 2 Ml IVP 01/09/25 23:47 4 mg Q6H PRN Administration NAUSEA OR VOMITING Protocol Sennosides 1 tab 12/16/24 14:00 01/01/25 08:22 Senna Tablet PO 01/15/25 13:59 1 tab QDAY CLEMENTINE Administration Protocol Sodium Chloride 3 ml 12/11/24 14:16 12/13/24 08:41 Sodium Chloride Rt [place] 0.9% 3 Ml Nebu INH 01/10/25 14:15 3 ml PRN PRN Administration SOLN Plan 44-year-old female with past medical history of insulin-dependent type 2 diabetes, hypertension, GERD, history of valley fever presented to the ED on 12/10 with episode of left flank pain, nausea/vomiting and chills will be admitted for hypertensive emergency requiring close monitoring along with acute renal failure requiring urology and nephrology consultation and IV antibiotics for cystitis #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 Friedman: found Bilateral hydronephrosis, large bladder mass occupying posterior bladder wall occupying the ureteral orifices. -After cystoscopy, patient noted that she had history of cervical cancer 3 years ago. -MRI abd/pelvis: Mild to moderate bilateral hydronephorsis, and dilated ureters extending to the bladder. -Per nephrology, the bladder mass is confined to the bladder. -Patient received bilatereal percutaneous nephrostomy tube placement on 12/19/2024 -12/24/2024 Creatinine is 3.8. Total Output is 4.3L. Right nephrostomy tube output is markedly decreased, with bloody urine noted in the drainage bag. Plan: -Patient underwent nephrostogramon 12/26, has satisfactory drainage from bilateral nephrostomy tubes. Right nephrostomy tube nephrostogram patient has shows that patient has extensive debris's in the renal collecting system. -Patient scheduled for replacement of right-sided nephrostomy tube today. -Case was discussed with urologist who recommended anterograde stent placed by interventional radiologist, was discussed with interventional radiology, IR interventional radiologist informed that he is unable to perform the procedure, per interventional radiology there is extensive debris's, patient needs stent placement to improve drainage from nephrostomy tube as well. -Case was discussed with the urologist again urology said that the patient has extensive mass which is occlusive, and patient will need higher level of care interventional radiology procedure for anterograde stent placement. Transfer nurse was informed, transfer process initiated. - Transfer to higher level of care for interventional radiology to place anterograde stent. #Acute renal failure 2/2 Urinary Retention 2/2 Obstructive Uropathy Patient experienced acute renal failure, likely secondary to obstructive uropathy given bladder mass noted on cystoscopy report. Previous UA noted to have hematuria. Improving renal function with nephrostomy tubes in place. Diagnostics: -Repeat UA 12/14 Urine protein +1 Urine blood +1 RBC 5 -12/20/2024 Patient produced 4.2 L of urine . -12/22/2024 Patient's output was 1155 mL. Hematuria was observed in the output from the right nephrostomy tube, while the left nephrostomy output remained clear and unremarkable. Cr level of 3.8 Plan: -Nephrology consulted, Dr. Pierre, -Avoid nephrotoxic agents -Renally dose medications -Replete electrolytes as needed and follow-up with morning labs -Currently, hemodialysis is on hold. #Acute urinary retention, improving #Bilateral hydronephrosis, likely secondary to obstruction #Cystitis #Complicated UTI, nephrolithiasis #Hematuria -On exam, patient no longer has left flank flank with CVA tenderness -CT abdomen pelvis shows a thick-walled cavitary lesion in the right middle lobe and a 22 mm pulmonary nodule in the anterior right lower lobe, numerous bilateral nonobstructing renal calculi, moderate bilateral hydronephrosis without calculi and cystitis -Based on CTAP presentation, urinary retention due to intake of meclizine was suspected as patient started to take it 1wk everyday prior to coming to the hospital. -Renal Ultrasound- Moderate bilateral hydronephrosis Plan: -Advised to stop taking meclizine. -Finished receiving IV ceftriaxone 2g IV qd (12/11-12/16). Rec IV ceftriaxone 1g IV qd (12/17-12/23) #Hypertensive emergency, improving #Hypertension Patient has significant history of hypertension on home antihypertensives Presenting to the ED with acute renal failure and elevated systolic pressure in the 200s Plan: - Coreg 25 mg PO BID - Hydralazine 50mg PO TID #Insulin-dependent type 2 diabetes Pertinent labs: 06/2024 A1C 11.1 12/11/24 A1C 8.0 Patient apparently takes 30 units of long-acting insulin twice a day Plan: -Insulin Glargine 18 units at bedtime -Sliding scale #History of Valley Fever -CTAP(03/21/2024):30 mm thick-walled cavitary lesion partially visualized right midlung,, 22 mm pulmonary nodule anterior right lower lobe -CXR(07/16/2024): Poorly defined nodular density 18 mm in the right lower lobe, -CXR (12/10/2024):Opacity right base which may represent a pulmonary mass, 19 mm -CTAP(12/10/2024): thick walled 25 mm cavitary lesion in the right middle lobe and 22mm pulmonary nodule anterior right lower lobe Plan: -Fairly stable right lung pulmonary nodule. -Will continue to monitor. #GERD Chronic medical problems: All pertinent to the following presentation Plan: -Continue Pantoprazole 40 mg PO QD Health Maintenance: Lines: PIV Diet: Renal and carb consistent low, n.p.o. after midnight Bowel: Senna GI prophylaxis: Pantoprazole 40 mg PO QD DVT prophylaxis: SCD Dispo: Pending transfer Code: Full Assessment and plan discussed with my attending physician Dr. Morton. Dr. Jones ([id number])- Internal medicine resident Attending Provider Attestation/Addendum Brittany Garibay DO, attest that I was physically present for the [place] portions of the service and evaluated the patient with the resident and I reviewed and discussed the case with the resident and agree with the resident's findings and plans of care as documented above Patient seen eval this a.m. She is in a lot of pain and states that her pain is from her suprapubic region and radiates down her right hip. Pain is improved with Dilaudid. Patient is pending nephrostomy exchange as the right nephrostomy has not been draining. Patient is pending transfer for urology otherwise due to hydronephrosis secondary to bladder carcinoma for anterograde stent.
[2025-01-01] MEDS: HEPARIN SOD LOCK SYR 100 UNIT/ML 500 UNIT STFIELD (14:00)
[2025-01-01] MEDS: fentaNYL CIT INJ 50 mCg/ML AMP 2ML 100 MCG IVP (14:18)
[2025-01-01] MEDS: LIDOCAINE INJ PF 1% 30 ML VIAL 11 ML INFL (14:20)
[2025-01-01] MEDS: ACETAMINOPHEN 325 MG TABLET 650 MG PO (19:42)
[2025-01-01] MEDS: INSULIN GLARGINE (Lantus) 5 UNIT/0.05 ML (PER 5 UNITS) 18 UNIT SC (20:28)
[2025-01-02] VITALS (28 sets, daily range): BP systolic 109–153; BP diastolic 52–86; PULSE 75–92; RESP 14–18; TEMP 36–37.6; O2SAT 93–97
--- NOTE | 2025-01-02 01:12 | PC.NURSE ---
DR GREEN NOTIFIED OF PT COMPLAINING OF 10/10 PAIN, GROANING, UNABLE TO STAY STILL, PRN DILAUDID AND TYLENOL ALREADY GIVEN. GAVE TELEPHONE VERBAL ORDER FOR NORCO 5MG X1
[2025-01-02] MEDS: HYDROcodone/APAP 5/325 TABLET 1 TAB PO (01:15)
[2025-01-02] MEDS: HYDROmorphone INJ 2 MG/ML VIAL 0.75 MG IVP ×4 (03:06→20:51)
[2025-01-02] MEDS: NALOXEGOL OXALATE 25 MG TABLET (NON-FORMULARY) PO (05:24)
[2025-01-02] MEDS: ACETAMINOPHEN 325 MG TABLET 650 MG PO (05:27)
[2025-01-02 06:11] LABS: Basophils # (Auto) 0.1 Thou/mm3 (0.0-0.2); Basophils % (Auto) 0 % (0-2.5); Eosinophils # (Auto) 0.1 Thou/mm3 (0.0-0.5); Eosinophils % (Auto) 1 % (0-10); Hematocrit 24.9 % (36.0-46.0); Immature Granulocytes Auto 0.07 Thou/mm3 (0.00-0.00); Lymphocytes # (Auto) 1.1 Thou/mm3 (1.0-4.8); Lymphocytes % (Auto) 7 % (10-50); Mean Corpuscular HGB Conc 31.7 g/dl (31.0-37.0); Mean Corpuscular Hemoglobin 25.4 pg (25.0-35.0); Mean Corpuscular Volume 80 fL (80-100); Monocytes # (Auto) 0.8 Thou/mm3 (0.0-0.8); Monocytes % (Auto) 5 % (0-12); Neutrophils # (Auto) 13.6 Thou/mm3 (1.8-7.7); Neutrophils % (Auto) 87 % (37-80); Nucleated Red Blood Cell # 0.00 Thou/mm3 (0.00-0.00); Nucleated Red Blood Cell % 0 /100 WBC (0); Platelet Count 423 Thou/mm3 (140-440); RDW Standard Deviation 42.5 fL (36.4-46.3); Red Blood Count 3.11 Miln/mm3 (4.00-5.20); White Blood Count 15.7 Thou/mm3 (3.6-11.0)
[2025-01-02 06:13] LABS: Hemoglobin 7.9 g/dL (12.0-16.0)
[2025-01-02 06:35] LABS: Alanine Aminotransferase 9 U/L (10-49); Albumin, Serum 4.2 gm/dL (3.5-5.0); Albumin/Globulin Ratio 1.3 (1.2-2.2); Alkaline Phosphatase 204 U/L (46-116); Anion Gap 15 (7-16); Aspartate Amino Transferase 17 U/L (0-34); BUN/Creatinine Ratio 8 Ratio (12-20); Bilirubin,Total 0.3 mg/dL (0.3-1.2); Blood Urea Nitrogen 35 mg/dL (9-23); Calcium 9.4 mg/dL (8.3-10.6); Calcium (Corrected) 9.4 mg/dL (8.5-10.1); Carbon Dioxide 21.0 mMol/L (20.0-31.0); Chloride 100 mMol/L (98-107); Creatinine (Component) 4.2 mg/dL (0.6-1.3); Estimated Creatinine Clearance 17.3 mL/min (>60); Globulin 3.3 gm/dL (2.3-3.5); Glucose 118 mg/dL (74-106); Magnesium 2.1 mg/dL (1.6-2.6); Osmolality,Calculated 280 (275-295); Potassium 4.4 mMol/L (3.4-5.1); Sodium 136 mMol/L (136-145); Total Protein 7.5 gm/dL (5.7-8.2); eGFR 13 See Note
--- NOTE | 2025-01-02 10:40 | PD.RESPRO ---
Documentation for date of: 01/02/25 Subjective Subjective Interval history: Ms. Cedillo is a 44-year-old female with past medical history of insulin-dependent type 2 diabetes, hypertension, GERD, history of valley fever untreated presented to the ED on 12/10 with episode of left flank pain, nausea/vomiting and chills. Patient states that the chills started roughly an hour ago but that she has been having progressively worsening left flank pain radiating to her back. Patient denies having any dysuria but does state that she has been having lilia hematuria for several days. Patient denies having any fevers but she does state that she has been having chills. Patient also complains of suprapubic pain and mentions that she feels pain near her ovaries. Patient has not seen PCP regarding the symptoms but she was seen several weeks ago for GERD like symptoms and was given medications. Patient otherwise denies having any concerning symptoms such as chest pain, dizziness, shortness of breath. In the ED, patient presented in hypertensive emergency with a blood pressure 187/83, other vitals wnl. Pertinent lab findings included WBC of 9, hemoglobin 7.9, potassium of 5.4, BUN of 31, creatinine 3.9, EGFR of 14, magnesium 1.6, troponin less than 0.02, BNP of 235, urinalysis shows hematuria and mild pyuria but no bacteria. Chest x-ray shows mild prominence of ventricles along with opacity in the right base concerning for pulmonary mass, EKG shows sinus rhythm without any concerning ST changes and CT abdomen pelvis shows a thick-walled cavitary lesion in the right middle lobe and a 22 mm pulmonary nodule in the anterior right lower lobe, numerous bilateral nonobstructing renal calculi, moderate bilateral hydronephrosis without calculi and cystitis. Patient will be admitted for hypertensive emergency requiring close monitoring along with acute renal failure requiring urology and nephrology consultation and IV antibiotics for cystitis Upon seeing the patient currently, she is on Mg Sulfate, Ceftriaxone, Carvedilol 6.25 mg, and maintenance IV fluids with a slightly improved blood pressure of 168/88 with the rest of vitals wnl. Patient states she is currently feeling much better now. States that she still has some nausea, L flank pain radiating to back and some dizziness when she stands up for too long. Patient states she has noticed blood in her urine today and ever since March. Patient endorses having bowel movements. Patient denies fever, headache, chest pain, shortness of breath, vomiting. 12/29/2024: Patient seen and examined at bedside. She is sitting upright at the edge of the bed crying due to pain in RLQ that extends towards R groin and leg, likely 2/2 to bladder mass.patient states that pain is not improved with oxycodone, but dilauded helps. Blood sugar 131, BP 143/80, WBC 12.8, Hgb stable, Bilateral nephrostomy tubes, R tube is not draining, Left tube is draining clear yellow urine 900cc. Cheng catheter with minimal output Hold HD, remove HD catheter, pain control, pending transfer to tertiary care center for anterograde stents and bladder mass removal. 12/30/24: Patient seen and examined at bedside. She is laying in bed and continues to report RLQ abdominal pain that extends towards R groin and leg. pt is s/p BL nephrogram on 12/29 to flush the nephrostomy tubes given R tube not draining. today there is minimal drainage from R tube, L continues to have good output 1535. HD cath remains in place, Pending transfer (if transfer for IR at higher care facility is rejected, will persue transfer for urology) no HD today, Cr stable 3.3 from 3.2. 12/31/2024:Patient seen and examined at bedside. She is laying in bed and continues to report RLQ abdominal pain that extends towards R groin and leg. pt getting regular Dilaudid. D/c cheng if daily output <100, downgrade pt from [facility] to [facility], pr for shower. primary team will discuss with Dr. Aponte about replacing R nephrostomy tube given minimal output. L continues to have good output. HD cath remains in place. Pt transfer for IR has heen denied at 9 institutions due to insurance not being accepted or bed availability, Cr 3.4 from 3.3, NO HD today. Plan for initating urology transfer. 01/01/2025: Patient seen and examined at bedside. She is laying flat in bed with blankets, she reports that she is cold. She continues to report RLQ abdominal pain that extends towards the R groin and leg. Per primary team, plan to replace R nephrostomy tube given negligible output. Left nephrostomy tube continues to have good output. Cr is climbing steadily, 3.6 from 3.4, Plan to hold HD. Pt transfer for IR has been rejected at 11 institutions. plan for initiating urology transfer. 01/02/2025: Patient seen and examined while in HD. She was laying comfortably on her Left side. She states that the RLQ pain is well controlled right now. pt was unable to replace R nephrostomy tube. L nephrostomy tube remains in place with good output, cheng catheter in place. Cr 4.2 3.6, BUN 35 from 30. HD today. Exam Vital Signs Temp Pulse Resp BP Pulse Ox O2 Del Method O2 Flow Rate 96.8 F 81 18 116/79 94 L Room Air 4 01/02/25 08:56 01/02/25 10:30 01/02/25 08:56 01/02/25 10:30 01/02/25 08:56 01/02/25 08:00 01/01/25 14:43 Narrative Exam GENERAL APPEARANCE: Patient resting comfortably in HD bed, adequately hydrated and nourished. HEENT: Poor dentition CARDIOVASCULAR: well perfused on visual inspection LUNGS/CHEST: nl work of breathing. no accessory muscle usage. ABDOMEN: c/o RLQ pain, tender to palpation. Soft, non distended EXTREMITIES: No edema, clubbing or cyanosis. SKIN: Skin exam normal without any rashes. Right IJ PermCath MUSCULOSKELETAL: Left nephrostomy tubes L with clear urine drainage. PSYCHIATRIC: Normal mood, affect LYMPHATICS: No lymphadenopathy noted NEUROLOGICAL : No neurological deficits Objective Labs 01/03/25 04:40 01/03/25 04:40 Labs: Laboratory Results - last 24 hr 01/02/25 05:17 WBC 15.7 H RBC 3.11 L Hgb 7.9 L Hct 24.9 L MCV 80 MCH 25.4 MCHC 31.7 RDW Std Deviation 42.5 Plt Count 423 D Neut % (Auto) 87 H Lymph % (Auto) 7 L Wells % (Auto) 5 Eos % (Auto) 1 Baso % (Auto) 0 Neut # (Auto) 13.6 H Lymph # (Auto) 1.1 Wells # (Auto) 0.8 Eos # (Auto) 0.1 Baso # (Auto) 0.1 Immature Gran # (Auto) 0.07 H Absolute Nucleated RBC 0.00 Immature Gran % 0 Nucleated RBC % 0 Sodium 136 Potassium 4.4 Chloride 100 Carbon Dioxide 21.0 Anion Gap 15 BUN 35 H Creatinine 4.2 H* D Estim Creat Clear Calc 17.3 L eGFR 13 L* BUN/Creatinine Ratio 8 L Glucose 118 H Calculated Osmolality 280 Calcium 9.4 Corrected Calcium 9.4 Magnesium 2.1 Total Bilirubin 0.3 AST 17 ALT 9 L Alkaline Phosphatase 204 H D Total Protein 7.5 Albumin 4.2 Globulin 3.3 Albumin/Globulin Ratio 1.3 Quality Measures Quality Measures VTE prophylaxis Assessment & Plan Assessment Current Active Medications: Generic Name Dose Route Start Last Admin Trade Name Freq PRN Reason Stop Dose Admin Acetaminophen 650 mg 12/19/24 18:23 01/02/25 05:27 Acetaminophen 325 Mg Tablet PO 01/09/25 23:47 650 mg Q6H PRN Administration PAIN 1-6 (mild-mod Protocol Buspirone HCl 10 mg 12/11/24 21:00 01/01/25 20:28 Buspirone Hcl 5 Mg Tablet PO 01/10/25 20:59 10 mg HS CLEMENTINE Administration Carvedilol 25 mg 12/20/24 17:30 01/01/25 17:53 Carvedilol 12.5 Mg Tablet PO 01/19/25 17:29 25 mg BIDWM CLEMENTINE Administration Dextrose 25 ml 12/10/24 23:51 Dextrose 50%-Water Inj 50 Ml Syringe IV 01/09/25 23:50 Q15MIN PRN BG 50-70 responsive npo pt Dextrose 50 ml 12/10/24 23:51 12/13/24 11:33 Dextrose 50%-Water Inj 50 Ml Syringe IV 01/09/25 23:50 50 ml Q15MIN PRN Administration BG <50 OR BG <70 & pt unresponsive Famotidine 20 mg 12/19/24 09:00 01/01/25 08:22 Famotidine 20 Mg Tablet PO 01/18/25 08:59 20 mg QDAY CLEMENTINE Administration Ferrous Sulfate 325 mg 12/29/24 09:00 01/01/25 08:22 Ferrous Sulf 325 Mg Tablet PO 01/28/25 08:59 325 mg DAILY CLEMENTINE Administration Glucagon 1 mg 12/10/24 23:51 Glucagon Inj 1 Mg Vial IM Q15MIN PRN BG <70, and no IV access Heparin Sodium (Porcine) 3,800 unit 01/01/25 08:24 01/01/25 08:26 Heparin Sod Inj 1000 Unit/Ml Vial 10 Ml INDWELLCAT 01/15/25 08:23 3,800 unit X1 PRN Administration DIALYSIS Hydralazine HCl 10 mg 12/19/24 09:12 Hydralazine Inj 20 Mg/Ml Vial IVP 01/18/25 09:11 Q6HR PRN SBP > 180 Hydralazine HCl 50 mg 12/20/24 14:00 01/02/25 05:24 Hydralazine Hcl 25 Mg Tablet PO 01/19/25 13:59 50 mg TID CLEMENTINE Administration Hydromorphone HCl 0.75 mg 01/01/25 10:24 01/02/25 08:16 Hydromorphone Inj 2 Mg/Ml Vial IVP 01/03/25 20:13 0.75 mg Q4HR PRN Administration pain 7-10 or breakthrough Hydroxyzine HCl 25 mg 12/13/24 21:00 01/01/25 20:28 Hydroxyzine Hcl 25 Mg Tablet PO 01/12/25 20:59 25 mg HS CLEMENTINE Administration Insulin Glargine 18 unit 12/15/24 21:00 01/01/25 20:28 Insulin Glargine (Lantus) 5 Unit/0.05 Ml (Per 5 Units) SC 01/14/25 20:59 18 unit HS CLEMENTINE Administration Insulin Human Lispro 0 unit 01/01/25 21:00 01/02/25 08:01 Insulin Lispro (Admelog) 1 Unit/0.01 Ml Unit SC 01/31/25 20:59 Not Given ACHS CLEMENTINE Protocol Naloxegol 25 mg 12/31/24 16:15 01/02/25 05:24 Naloxegol Oxalate 25 Mg Tablet (Non-Formulary) PO 01/30/25 16:14 25 mg ACBR CLEMENTINE Administration Ondansetron HCl 4 mg 12/10/24 23:48 01/01/25 00:30 Ondansetron Inj 2 Mg/Ml Inj 2 Ml IVP 01/09/25 23:47 4 mg Q6H PRN Administration NAUSEA OR VOMITING Protocol Sennosides 1 tab 12/16/24 14:00 01/01/25 08:22 Senna Tablet PO 01/15/25 13:59 1 tab QDAY CLEMENTINE Administration Protocol Sodium Chloride 3 ml 12/11/24 14:16 12/13/24 08:41 Sodium Chloride Rt Katherine 0.9% 3 Ml Nebu INH 01/10/25 14:15 3 ml PRN PRN Administration SOLN Plan Kacy Cedillo is a 44-year-old female with past medical history of insulin-dependent type 2 diabetes, hypertension, GERD, history of valley fever untreated presented to the ED on 12/10 with episode of left flank pain, nausea/vomiting and chills will be admitted for hypertensive emergency requiring close monitoring along with acute renal failure requiring urology and nephrology consultation and IV antibiotics for cystitis. pt denied transfer for IR anterograde BL nephrostomy stents from 11 institutions, pending transfer initiation for IR placement of R nephrostomy tube. HD today #Acute kidney injury --biopsy-proven ATN superimposed on obstructive uropathy. #R Nephrostomy tube w scant drainage, Cr uptrending, Likely R hydronephrosis. CT showed numerous b/l nonobstructing renal caliculi, mod b/l hydronephrosis wo ureteral calculi, cystitis pattern Patient received a kidney biopsy which showed ATN/AIN and underlying diabetes/hypertensive nephrosclerosis Bilateral percutaneous nephrostomy tube placed, L draining well, R with minimal drainage likely 2/2 debris . 12/24: Bladder bx and limited bladder resection (large mass occupying both ureteral orifice), L nephrostogram done showing L ureter stricture. s/p BL nephrostogram to flush R nephrostomy tube, R tube continues to have negligable output 01/02 unable to replace R nephrostomy tube, Cr inc 4.2 from 3.6 BUN 35, proceed with HD today Last HD: 12/20, 01/02 PLAN - HD today -pending transfer for IR replacement of R nephrostomy tube -Needs outpatient tertiary care center evaluation for large bladder tumor, Bladder mass is benign, will need antegrade stents -denied transfer for IR at 11 institutions given insurance and low bed availability -Strict I/O's -Avoid nephrotoxic agents -Renally dose medications -Replete electrolytes as needed and follow-up with morning labs -pain managemnt: per primary team: APAP prn, NORCO 5/325 q6hr prn, dilaudid 0.75mg q4hr PRN #Acute urinary retention #Bilateral hydronephrosis #Leukocytosis, 15 from 11 #Cystitis #Complicated UTI, nephrolithiasis #Hematuria #Hypertensive emergency, improving--in fact on the lower side #Hypertension #Insulin-dependent type 2 diabetes #GERD -Managed per primary team Plan discussed with nephrology attending Dr. Miriam Kirk MD Internal Medicine PGY-1 Attending Provider Attestation/Addendum Patient seen and examined with resident physician Dr. Kirk. Note reviewed, agree with findings and recommendations. Patient with bilateral nephrostomy tubes for obstructive uropathy. Left tube seems to be making good urine. Right tube blocked. Was adjusted thrice already. Significant debris noted. Cheng catheter removed. Still having lower back and pelvic pain. On Dilaudid IV. Pending transfer to higher level of care for anterograde stents and bladder tumor removal. Unfortunately [facility] the transfer in-house. Spoke to Dr. Vidal-will need higher level of care for IR anterograde stents and urology to remove the tumor. Spoke to team-transition IV to p.o. Dilaudid. Needs outpatient dialysis and outpatient IR stents. Spoke to the patient who agreed. Patient continues to have significant azotemia. Decided to proceed with dialysis today. Patient currently seen on dialysis. Tolerating dialysis without any problems. Hemodialysis for 3 hours, 2K, ultrafiltration 0 L, Epogen 6000, no heparin ordered. Plan of care discussed with the dialysis nurse. Please see dialysis flowsheet for further details.
[2025-01-02] MEDS: EPOETIN ALFA-EPBX INJ 10,000 UNIT/ML VIAL (ESRD) 10000 UNIT SC (11:52)
[2025-01-02] MEDS: FERROUS SULF 325 MG TABLET PO (12:23)
[2025-01-02] MEDS: FAMOTIDINE 20 MG TABLET PO (12:23)
[2025-01-02] MEDS: HEPARIN SOD INJ 1000 UNIT/ML VIAL 10 ML 3800 UNIT INDWELLCAT (12:37)
--- NOTE | 2025-01-02 15:35 | ESPR_ITS ---
<Statement entered by Joyce Jane MD - 01/07/25 14:36> I reviewed above note and agree with findings and plans. I have also personally examined the patient with medicine team and went over assessment and plan with medical team including corporate development intern and resident physician. Documentation for date of: 01/02/25 Subjective Subjective Interval history: Overnight team reported patient was in significant pain despite her regular scheduled pain medications therefore she was given ketorolac x 1. Patient is seen and examined at bedside this morning during dialysis. Patient states that currently her pain is significantly better because she had just received her pain medication. Pt has remained afebrile, WBC is 15.7, Hgb is stable at 7.9. labs are significant for BUN 35, Cr 4.2, GFR 13, Pt is currently going through dialysis. Pt has been rejected transfer from more than 11 tertiary center for IR or urology. Pt was scheduled for right nephrostomy drainage tube replaced yesterday because has not been draining for a few days. However, the nephrostomy tube replacement was unsuccessful due to unsuccessful need access. Will continue to monitor renal function, order PT and cotninue to management pt's pain. Will start transitioning to oral pain control. Exam Vital Signs Temp Pulse Resp BP Pulse Ox O2 Del Method O2 Flow Rate 98.0 F 87 18 146/66 H 96 Room Air 4 01/02/25 12:00 01/02/25 15:21 01/02/25 12:00 01/02/25 15:21 01/02/25 12:00 01/02/25 12:00 01/01/25 14:43 Narrative Exam General: No acute distress, well nourished Eye: PERRL, EOMI, normal conjunctiva, no scleral icterus HENT: Normocephalic, atraumatic, hearing intact to conversation at normal volume, moist oral mucosa Neck: Supple, non-tender, no JVD, no lymphadenopathy Lungs: Non-labored respirations, symmetric chest rise, Clear to auscultate bilaterally Heart: Peripheral pulses intact bilaterally, Regular rate and Rhythm. Abdomen: Soft, non-tender, non-distended. Bilateral nephrostomy tube noted,RIGHT side have no output, left side have 150cc or non bloody output Musculoskeletal: Normal range of motion and strength Skin: Skin is warm, dry, no rashes or lesions. Psychiatric: Cooperative, appropriate mood and affect Neuro: no neurologic deficit noted Objective Labs 01/02/25 05:17 01/02/25 05:17 Labs: Laboratory Results - last 24 hr 01/02/25 05:17 WBC 15.7 H RBC 3.11 L Hgb 7.9 L Hct 24.9 L MCV 80 MCH 25.4 MCHC 31.7 RDW Std Deviation 42.5 Plt Count 423 D Neut % (Auto) 87 H Lymph % (Auto) 7 L Divide % (Auto) 5 Eos % (Auto) 1 Baso % (Auto) 0 Neut # (Auto) 13.6 H Lymph # (Auto) 1.1 Divide # (Auto) 0.8 Eos # (Auto) 0.1 Baso # (Auto) 0.1 Immature Gran # (Auto) 0.07 H Absolute Nucleated RBC 0.00 Immature Gran % 0 Nucleated RBC % 0 Sodium 136 Potassium 4.4 Chloride 100 Carbon Dioxide 21.0 Anion Gap 15 BUN 35 H Creatinine 4.2 H* D Estim Creat Clear Calc 17.3 L eGFR 13 L* BUN/Creatinine Ratio 8 L Glucose 118 H Calculated Osmolality 280 Calcium 9.4 Corrected Calcium 9.4 Magnesium 2.1 Total Bilirubin 0.3 AST 17 ALT 9 L Alkaline Phosphatase 204 H D Total Protein 7.5 Albumin 4.2 Globulin 3.3 Albumin/Globulin Ratio 1.3 Quality Measures Quality Measures VTE prophylaxis Assessment & Plan Assessment Current Active Medications: Generic Name Dose Route Start Last Admin Trade Name Freq PRN Reason Stop Dose Admin Acetaminophen 650 mg 12/19/24 18:23 01/02/25 05:27 Acetaminophen 325 Mg Tablet PO 01/09/25 23:47 650 mg Q6H PRN Administration PAIN 1-6 (mild-mod Protocol Hydrocodone Bitart/Acetaminophen 1 tab 01/02/25 15:00 01/02/25 15:22 Hydrocodone/Apap 10/325 Tab PO 01/07/25 14:59 1 tab Q6HR CLEMENTINE Administration Buspirone HCl 10 mg 12/11/24 21:00 01/01/25 20:28 Buspirone Hcl 5 Mg Tablet PO 01/10/25 20:59 10 mg HS CLEMENTINE Administration Carvedilol 25 mg 12/20/24 17:30 01/02/25 08:00 Carvedilol 12.5 Mg Tablet PO 01/19/25 17:29 Not Given BIDWM CLEMENTINE Dextrose 25 ml 12/10/24 23:51 Dextrose 50%-Water Inj 50 Ml Syringe IV 01/09/25 23:50 Q15MIN PRN BG 50-70 responsive npo pt Dextrose 50 ml 12/10/24 23:51 12/13/24 11:33 Dextrose 50%-Water Inj 50 Ml Syringe IV 01/09/25 23:50 50 ml Q15MIN PRN Administration BG <50 OR BG <70 & pt unresponsive Famotidine 20 mg 12/19/24 09:00 01/02/25 12:23 Famotidine 20 Mg Tablet PO 01/18/25 08:59 20 mg QDAY CLEMENTINE Administration Ferrous Sulfate 325 mg 12/29/24 09:00 01/02/25 12:23 Ferrous Sulf 325 Mg Tablet PO 01/28/25 08:59 325 mg DAILY CLEMENTINE Administration Glucagon 1 mg 12/10/24 23:51 Glucagon Inj 1 Mg Vial IM Q15MIN PRN BG <70, and no IV access Heparin Sodium (Porcine) 3,800 unit 01/01/25 08:24 01/02/25 12:37 Heparin Sod Inj 1000 Unit/Ml Vial 10 Ml INDWELLCAT 01/15/25 08:23 3,800 unit X1 PRN Administration DIALYSIS Hydralazine HCl 10 mg 12/19/24 09:12 Hydralazine Inj 20 Mg/Ml Vial IVP 01/18/25 09:11 Q6HR PRN SBP > 180 Hydralazine HCl 50 mg 12/20/24 14:00 01/02/25 15:21 Hydralazine Hcl 25 Mg Tablet PO 01/19/25 13:59 50 mg TID CLEMENTINE Administration Hydromorphone HCl 0.75 mg 01/02/25 14:50 Hydromorphone Inj 2 Mg/Ml Vial IVP 01/06/25 10:23 Q6HR PRN pain 7-10 or breakthrough Hydroxyzine HCl 25 mg 12/13/24 21:00 01/01/25 20:28 Hydroxyzine Hcl 25 Mg Tablet PO 01/12/25 20:59 25 mg HS CLEMENTINE Administration Insulin Glargine 18 unit 12/15/24 21:00 01/01/25 20:28 Insulin Glargine (Lantus) 5 Unit/0.05 Ml (Per 5 Units) SC 01/14/25 20:59 18 unit HS CLEMENTINE Administration Insulin Human Lispro 0 unit 01/01/25 21:00 01/02/25 12:11 Insulin Lispro (Admelog) 1 Unit/0.01 Ml Unit SC 01/31/25 20:59 Not Given ACHS CLEMENTINE Protocol Naloxegol 25 mg 12/31/24 16:15 01/02/25 05:24 Naloxegol Oxalate 25 Mg Tablet (Non-Formulary) PO 01/30/25 16:14 25 mg ACBR CLEMENTINE Administration Ondansetron HCl 4 mg 12/10/24 23:48 01/01/25 00:30 Ondansetron Inj 2 Mg/Ml Inj 2 Ml IVP 01/09/25 23:47 4 mg Q6H PRN Administration NAUSEA OR VOMITING Protocol Sennosides 1 tab 12/16/24 14:00 01/02/25 12:23 Senna Tablet PO 01/15/25 13:59 1 tab QDAY CLEMENTINE Administration Protocol Sodium Chloride 3 ml 12/11/24 14:16 12/13/24 08:41 Sodium Chloride Rt Katherine 0.9% 3 Ml Nebu INH 01/10/25 14:15 3 ml PRN PRN Administration SOLN Plan 44-year-old female with past medical history of insulin-dependent type 2 diabetes, hypertension, GERD, history of valley fever presented to the ED on 12/10 with episode of left flank pain, nausea/vomiting and chills will be admitted for hypertensive emergency requiring close monitoring along with acute renal failure requiring urology and nephrology consultation and IV antibiotics for cystitis #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 Friedman: found Bilateral hydronephrosis, large bladder mass occupying posterior bladder wall occupying the ureteral orifices. -After cystoscopy, patient noted that she had history of cervical cancer 3 years ago. -MRI abd/pelvis: Mild to moderate bilateral hydronephorsis, and dilated ureters extending to the bladder. -Per nephrology, the bladder mass is confined to the bladder. -Patient received bilatereal percutaneous nephrostomy tube placement on 12/19/2024 -12/24/2024 Creatinine is 3.8. Total Output is 4.3L. Right nephrostomy tube output is markedly decreased, with bloody urine noted in the drainage bag. Plan: -Patient underwent nephrostogramon 12/26, has satisfactory drainage from bilateral nephrostomy tubes. Right nephrostomy tube nephrostogram patient has shows that patient has extensive debris's in the renal collecting system. -Patient scheduled for replacement of right-sided nephrostomy tube today. -Case was discussed with urologist who recommended anterograde stent placed by interventional radiologist, was discussed with interventional radiology, IR interventional radiologist informed that he is unable to perform the procedure, per interventional radiology there is extensive debris's, patient needs stent placement to improve drainage from nephrostomy tube as well. -Case was discussed with the urologist again urology said that the patient has extensive mass which is occlusive, and patient will need higher level of care interventional radiology procedure for anterograde stent placement. Transfer nurse was informed, transfer process initiated. - Transfer to higher level of care for interventional radiology to place anterograde stent. #Acute renal failure 2/2 Urinary Retention 2/2 Obstructive Uropathy #HD, permanent dialysis cath inserted on 12/15/24 Patient experienced acute renal failure, likely secondary to obstructive uropathy given bladder mass noted on cystoscopy report. Previous UA noted to have hematuria. Improving renal function with nephrostomy tubes in place. Diagnostics: -Repeat UA 12/14 Urine protein +1 Urine blood +1 RBC 5 -12/20/2024 Patient produced 4.2 L of urine . -12/22/2024 Patient's output was 1155 mL. Hematuria was observed in the output from the right nephrostomy tube, while the left nephrostomy output remained clear and unremarkable. Cr level of 3.8 Plan: -Nephrology consulted, Dr. Pierre, -Avoid nephrotoxic agents -Renally dose medications -Replete electrolytes as needed and follow-up with morning labs -Currently, hemodialysis is on hold. #Acute urinary retention, improving #Bilateral hydronephrosis, likely secondary to obstruction #Chronic Cystitis #Complicated UTI, nephrolithiasis #Hematuria -On exam, patient no longer has left flank flank with CVA tenderness -CT abdomen pelvis shows a thick-walled cavitary lesion in the right middle lobe and a 22 mm pulmonary nodule in the anterior right lower lobe, numerous bilateral nonobstructing renal calculi, moderate bilateral hydronephrosis without calculi and cystitis -Based on CTAP presentation, urinary retention due to intake of meclizine was suspected as patient started to take it 1wk everyday prior to coming to the hospital. -Renal Ultrasound- Moderate bilateral hydronephrosis Plan: -Advised to stop taking meclizine. -Finished receiving IV ceftriaxone 2g IV qd (12/11-12/16). Rec IV ceftriaxone 1g IV qd (12/17-12/23) #Hypertensive emergency, improving #Primary Hypertension Patient has significant history of hypertension on home antihypertensives Presenting to the ED with acute renal failure and elevated systolic pressure in the 200s Plan: - Coreg 25 mg PO BID - Hydralazine 50mg PO TID #Insulin-dependent type 2 diabetes Pertinent labs: 06/2024 A1C 11.1 12/11/24 A1C 8.0 Patient apparently takes 30 units of long-acting insulin twice a day Plan: -Insulin Glargine 18 units at bedtime -Sliding scale insulin ordered #History of Valley Fever -CTAP(03/21/2024):30 mm thick-walled cavitary lesion partially visualized right midlung,, 22 mm pulmonary nodule anterior right lower lobe -CXR(07/16/2024): Poorly defined nodular density 18 mm in the right lower lobe, -CXR (12/10/2024):Opacity right base which may represent a pulmonary mass, 19 mm -CTAP(12/10/2024): thick walled 25 mm cavitary lesion in the right middle lobe and 22mm pulmonary nodule anterior right lower lobe Plan: -Fairly stable right lung pulmonary nodule. -Will continue to monitor. #GERD Chronic medical problems: All pertinent to the following presentation Plan: -Continue Pantoprazole 40 mg PO QD Health Maintenance: Lines: PIV Diet: Renal and carb consistent low, n.p.o. after midnight Bowel: Senna GI prophylaxis: Pantoprazole 40 mg PO QD DVT prophylaxis: SCD Dispo: Pending transfer Code: Full Assessment and plan discussed with my attending physician Dr. Buck Schwab (PGY-2)- Internal medicine resident
--- NOTE | 2025-01-02 16:50 | PC.NURSE ---
Pt has not been making urine. Nephrostomy bag empty. Cheng empty as well. Called and made Dr. Jones aware. said to remove cheng catheter at this time.
--- NOTE | 2025-01-02 17:21 | PC.CC ---
Addendum entered by Randolph Hernandez RN 01/02/25 19:04: received call from Iveth with [facility], she stated auth [id number] has been [place]. [place] [facility] [place] [facility], left to confirm to cancel as pt's transfer is on hold for now. We will reach out [facility] if need new auth for a different facility. Addendum entered by Randolph Heranndez RN 01/02/25 17:32: Also informed the Team during rounds, Dr. Forbes Urologist at [facility] was willing to follow the patient as outpatient last week. Dr Schwab asked that i reach out to Dr Forbes. i called [facility], spoke to Summer. she stated she remembers this case. She stated she sent the referral to the clinic and it is still there. i will inform Dr Schwab Original Note: discussed case during rounds, Dr Jones stated transfer needs to be reinitiated. Informed them IR is not an admitting service. Team stated changing the service to Urology instead. Informed them to enter an new transfer order for Urology. Dr. Jones stated he will reach out to Dr. Friedman and Dr. Schwab stated she will reach out to Dr. Pineda. Collaboration on what service is needed for this patient will be further discussed.
[2025-01-02] MEDS: INSULIN GLARGINE (Lantus) 5 UNIT/0.05 ML (PER 5 UNITS) 18 UNIT SC (20:44)
[2025-01-02] MEDS: INSULIN LISPRO (AdmeLOG) 1 UNIT/0.01 ML UNIT SC (20:45)
--- NOTE | 2025-01-02 23:38 | PC.NURSE ---
PATIENT COMPLAINT OF RIGHT LATERAL SIDE ABDOMINAL PAIN,PAIN SCALE OF 10.ATTEMPTED TO GIVE NORCO BUT PATIENT SAID IT TAKES TIME TO TAKE EFFECT.DR. BATISTA MADE AWARE THROUGH PHONE WITH NEW ORDER CARRIED OUT.
[2025-01-02] MEDS: MORPHINE SULF INJ 10 MG/ML VIAL IVP (23:46)
[2025-01-02] MEDS: ONDANSETRON INJ 2 MG/ML INJ 2 ML 4 MG IVP (23:49)
[2025-01-03] VITALS (12 sets, daily range): BP systolic 106–148; BP diastolic 53–89; PULSE 71–97; RESP 15–17; TEMP 36.2–37.6; O2SAT 93–98
[2025-01-03] MEDS: NALOXEGOL OXALATE 25 MG TABLET (NON-FORMULARY) PO (05:41)
[2025-01-03 06:00] LABS: Basophils # (Auto) 0.1 Thou/mm3 (0.0-0.2); Basophils % (Auto) 0 % (0-2.5); Eosinophils # (Auto) 0.1 Thou/mm3 (0.0-0.5); Eosinophils % (Auto) 0 % (0-10); Hematocrit 26.0 % (36.0-46.0); Immature Granulocytes Auto 0.08 Thou/mm3 (0.00-0.00); Lymphocytes # (Auto) 1.6 Thou/mm3 (1.0-4.8); Lymphocytes % (Auto) 10 % (10-50); Mean Corpuscular HGB Conc 30.8 g/dl (31.0-37.0); Mean Corpuscular Hemoglobin 24.8 pg (25.0-35.0); Mean Corpuscular Volume 81 fL (80-100); Monocytes # (Auto) 1.2 Thou/mm3 (0.0-0.8); Monocytes % (Auto) 7 % (0-12); Neutrophils # (Auto) 13.9 Thou/mm3 (1.8-7.7); Neutrophils % (Auto) 82 % (37-80); Nucleated Red Blood Cell # 0.00 Thou/mm3 (0.00-0.00); Nucleated Red Blood Cell % 0 /100 WBC (0); Platelet Count 446 Thou/mm3 (140-440); RDW Standard Deviation 43.3 fL (36.4-46.3); Red Blood Count 3.22 Miln/mm3 (4.00-5.20); White Blood Count 16.9 Thou/mm3 (3.6-11.0)
[2025-01-03 06:02] LABS: Hemoglobin 8.0 g/dL (12.0-16.0)
[2025-01-03 06:39] LABS: Alanine Aminotransferase 8 U/L (10-49); Albumin, Serum 4.1 gm/dL (3.5-5.0); Albumin/Globulin Ratio 1.3 (1.2-2.2); Alkaline Phosphatase 216 U/L (46-116); Anion Gap 11 (7-16); Aspartate Amino Transferase 14 U/L (0-34); BUN/Creatinine Ratio 5 Ratio (12-20); Bilirubin,Total 0.3 mg/dL (0.3-1.2); Blood Urea Nitrogen 22 mg/dL (9-23); Calcium 8.9 mg/dL (8.3-10.6); Calcium (Corrected) 8.9 mg/dL (8.5-10.1); Carbon Dioxide 26.8 mMol/L (20.0-31.0); Chloride 96 mMol/L (98-107); Creatinine (Component) 4.5 mg/dL (0.6-1.3); Estimated Creatinine Clearance 16.1 mL/min (>60); Globulin 3.2 gm/dL (2.3-3.5); Glucose 120 mg/dL (74-106); Magnesium 2.1 mg/dL (1.6-2.6); Osmolality,Calculated 272 (275-295); Potassium 3.8 mMol/L (3.4-5.1); Sodium 134 mMol/L (136-145); Total Protein 7.3 gm/dL (5.7-8.2); eGFR 12 See Note
[2025-01-03] MEDS: FAMOTIDINE 20 MG TABLET PO (08:54)
[2025-01-03] MEDS: FERROUS SULF 325 MG TABLET PO (08:54)
[2025-01-03] MEDS: INSULIN LISPRO (AdmeLOG) 1 UNIT/0.01 ML UNIT SC (11:49)
--- NOTE | 2025-01-03 12:42 | ESPR_ITS ---
Documentation for date of: 01/03/25 Subjective Subjective Interval history: Ms. Cedillo is a 44-year-old female with past medical history of insulin- dependent type 2 diabetes, hypertension, GERD, and history of untreated valley fever who presented to the ED on 12/10 with left flank pain, nausea/vomiting and chills. Patient states that the chills started roughly an hour ago but that she has been having progressively worsening left flank pain radiating to her back. Patient denies having any dysuria but does state that she has been having lilia hematuria for several days. Patient denies having any fevers but she does state that she has been having chills. Patient also complains of suprapubic pain and mentions that she feels pain near her ovaries. Patient has not seen a PCP regarding the symptoms but she was seen several weeks ago for GERD-like symptoms and was given medications. Patient otherwise denies having any concerning symptoms such as chest pain, dizziness, shortness of breath. In the ED, patient presented with hypertensive emergency with a blood pressure 187/83, other vitals wnl. Pertinent lab findings included WBC of 9, hemoglobin 7.9, potassium of 5.4, BUN of 31, creatinine 3.9, EGFR of 14, magnesium 1.6, troponin less than 0.02, BNP of 235, urinalysis shows hematuria and mild pyuria but no bacteria. Chest x-ray shows mild prominence of ventricles along with opacity in the right base concerning for pulmonary mass, EKG shows sinus rhythm without any concerning ST changes and CT abdomen pelvis shows a thick-walled cavitary lesion in the right middle lobe and a 22 mm pulmonary nodule in the anterior right lower lobe, numerous bilateral nonobstructing renal calculi, moderate bilateral hydronephrosis without calculi and cystitis. Patient will be admitted for hypertensive emergency requiring close monitoring along with acute renal failure requiring urology and nephrology consultation and IV antibiotics for cystitis Upon seeing the patient currently, she is on Mg Sulfate, Ceftriaxone, Carvedilol 6.25 mg, and maintenance IV fluids with a slightly improved blood pressure of 168/88 with the rest of vitals wnl. Patient states she is currently feeling much better now. States that she still has some nausea, L flank pain radiating to back and some dizziness when she stands up for too long. Patient states she has noticed blood in her urine today and ever since March. Patient endorses having bowel movements. Patient denies fever, headache, chest pain, shortness of breath, vomiting. Interval History 12/29/2024: Patient seen and examined at bedside. She is sitting upright at the edge of the bed crying due to pain in RLQ that extends towards R groin and leg, likely 2/2 to bladder mass.patient states that pain is not improved with oxycodone, but dilauded helps. Blood sugar 131, BP 143/80, WBC 12.8, Hgb stable, Bilateral nephrostomy tubes, R tube is not draining, Left tube is draining clear yellow urine 900cc. Cheng catheter with minimal output Hold HD, remove HD catheter, pain control, pending transfer to tertiary care center for anterograde stents and bladder mass removal. 12/30/24: Patient seen and examined at bedside. She is laying in bed and continues to report RLQ abdominal pain that extends towards R groin and leg. pt is s/p BL nephrogram on 12/29 to flush the nephrostomy tubes given R tube not draining. today there is minimal drainage from R tube, L continues to have good output 1535. HD cath remains in place, Pending transfer (if transfer for IR at higher care facility is rejected, will persue transfer for urology) no HD today, Cr stable 3.3 from 3.2. 12/31/2024: Patient seen and examined at bedside. She is laying in bed and continues to report RLQ abdominal pain that extends towards R groin and leg. pt getting regular Dilaudid. D/c cheng if daily output <100, downgrade pt from [facility] to [place], [place] for shower. primary team will discuss with Dr. Aponte about replacing R nephrostomy tube given minimal output. L continues to have good output. HD cath remains in place. Pt transfer for IR has heen denied at 9 institutions due to insurance not being accepted or bed availability, Cr 3.4 from 3.3, NO HD today. Plan for initating urology transfer. 01/01/2025: Patient seen and examined at bedside. She is laying flat in bed with blankets, she reports that she is cold. She continues to report RLQ abdominal pain that extends towards the R groin and leg. Per primary team, plan to replace R nephrostomy tube given negligible output. Left nephrostomy tube continues to have good output. Cr is climbing steadily, 3.6 from 3.4, Plan to hold HD. Pt transfer for IR has been rejected at 11 institutions. plan for initiating urology transfer. 01/02/2025: Patient seen and examined while in HD. She was laying comfortably on her Left side. She states that the RLQ pain is well controlled right now. pt was unable to replace R nephrostomy tube. L nephrostomy tube remains in place with good output, cheng catheter in place. Cr 4.2 3.6, BUN 35 from 30. HD today. 01/03/2025: No overnight events. Patient seen and examined at bedside; they report feeling generally well today with no new complaints or concerns. Labs notable for an increase in WBC from 15.7 to 16.9, creatinine increase from 4.2 to 4.5, eGFR reduction from 13 to 12, and alkaline phosphatase increase from 204 to 216. Plan to d/c on Sunday with possible transfer to Urology at [facility]. Exam Vital Signs Temp Pulse Resp BP Pulse Ox O2 Del Method O2 Flow Rate 97.2 F 81 16 138/71 H 97 Room Air 4 01/03/25 12:00 01/03/25 12:01/03/25 12:01/03/25 12:01/03/25 12:01/03/25 12:01/01/25 14:43 Narrative Exam Physical Exam: General: A/O x3, no acute distress, well-nourished, well-developed. Skin: Right IJ permanent catheter noted. Left nephrostomy tubes in place with clear urine drainage. Warm, dry, intact, no obvious rash. Head: Normocephalic, atraumatic. Eyes: PERRL, EOMI. Anicteric, vision grossly intact. Ears: No ear pain, no ear discharge, Hearing grossly intact. Nose: No nasal discharge. Mouth/Throat: Oral mucosa moist. No obvious lesions in oropharynx. Neck: Neck supple, non-tender, no cervical lymphadenopathy. Cardiovascular: Regular rate and rhythm, no murmur, no JVD or carotid bruits. +S1/S2. Respiratory: Bilateral lungs are clear to auscultation and percussion, respirations unlabored, no crackles, no wheezing. No accessory muscle use. Gastrointestinal: Tenderness to palpation of RLQ. Soft, non-distended, no palpable masses. No guarding or rebound tenderness. Peristalsis present. Extremities: Symmetrical, no significant deformities. No edema, no cyanosis, no clubbing. 2+ radial pulse bilaterally, 2+ posterior tibial pulse bilaterally. Neuro: No focal deficits observed. Conversant, moving all extremities. No overt cerebellar signs/incoordination. Psychiatric: Cooperative, appropriate affect. Objective Labs 01/03/25 04:40 01/03/25 04:40 Labs: Laboratory Results - last 24 hr 01/03/25 04:40 WBC 16.9 H RBC 3.22 L Hgb 8.0 L Hct 26.0 L MCV 81 MCH 24.8 L MCHC 30.8 L RDW Std Deviation 43.3 Plt Count 446 H Neut % (Auto) 82 H Lymph % (Auto) 10 Hickman % (Auto) 7 Eos % (Auto) 0 Baso % (Auto) 0 Neut # (Auto) 13.9 H Lymph # (Auto) 1.6 Hickman # (Auto) 1.2 H Eos # (Auto) 0.1 Baso # (Auto) 0.1 Immature Gran # (Auto) 0.08 H Absolute Nucleated RBC 0.00 Immature Gran % 1 H Nucleated RBC % 0 Sodium 134 L Potassium 3.8 D Chloride 96 L Carbon Dioxide 26.8 Anion Gap 11 BUN 22 Creatinine 4.5 H* Estim Creat Clear Calc 16.1 L eGFR 12 L* BUN/Creatinine Ratio 5 L Glucose 120 H Calculated Osmolality 272 L Calcium 8.9 Corrected Calcium 8.9 Magnesium 2.1 Total Bilirubin 0.3 AST 14 ALT 8 L Alkaline Phosphatase 216 H Total Protein 7.3 Albumin 4.1 Globulin 3.2 Albumin/Globulin Ratio 1.3 Quality Measures Quality Measures VTE prophylaxis Assessment & Plan Assessment Current Active Medications: Generic Name Dose Route Start Last Admin Trade Name Freq PRN Reason Stop Dose Admin Acetaminophen 650 mg 12/19/24 18:23 01/02/25 05:27 Acetaminophen 325 Mg Tablet PO 01/09/25 23:47 650 mg Q6H PRN Administration PAIN 1-6 (mild-mod Protocol Hydrocodone Bitart/Acetaminophen 1 tab 01/02/25 15:00 01/03/25 11:49 Hydrocodone/Apap 10/325 Tab PO 01/07/25 14:59 1 tab Q6HR CLEMENTINE Administration Buspirone HCl 10 mg 12/11/24 21:00 01/02/25 20:31 Buspirone Hcl 5 Mg Tablet PO 01/10/25 20:59 10 mg HS CLEMENTINE Administration Carvedilol 25 mg 12/20/24 17:30 01/03/25 08:52 Carvedilol 12.5 Mg Tablet PO 01/19/25 17:29 25 mg BIDWM CLEMENTINE Administration Dextrose 25 ml 12/10/24 23:51 Dextrose 50%-Water Inj 50 Ml Syringe IV 01/09/25 23:50 Q15MIN PRN BG 50-70 responsive npo pt Dextrose 50 ml 12/10/24 23:51 12/13/24 11:33 Dextrose 50%-Water Inj 50 Ml Syringe IV 01/09/25 23:50 50 ml Q15MIN PRN Administration BG <50 OR BG <70 & pt unresponsive Famotidine 20 mg 12/19/24 09:00 01/03/25 08:54 Famotidine 20 Mg Tablet PO 01/18/25 08:59 20 mg QDAY CLEMENTINE Administration Ferrous Sulfate 325 mg 12/29/24 09:00 01/03/25 08:54 Ferrous Sulf 325 Mg Tablet PO 01/28/25 08:59 325 mg DAILY CLEMENTINE Administration Glucagon 1 mg 12/10/24 23:51 Glucagon Inj 1 Mg Vial IM Q15MIN PRN BG <70, and no IV access Heparin Sodium (Porcine) 3,800 unit 01/01/25 08:24 01/02/25 12:37 Heparin Sod Inj 1000 Unit/Ml Vial 10 Ml INDWELLCAT 01/15/25 08:23 3,800 unit X1 PRN Administration DIALYSIS Hydralazine HCl 10 mg 12/19/24 09:12 Hydralazine Inj 20 Mg/Ml Vial IVP 01/18/25 09:11 Q6HR PRN SBP > 180 Hydralazine HCl 50 mg 12/20/24 14:00 01/03/25 05:40 Hydralazine Hcl 25 Mg Tablet PO 01/19/25 13:59 50 mg TID CLEMENTINE Administration Hydroxyzine HCl 25 mg 12/13/24 21:00 01/02/25 20:31 Hydroxyzine Hcl 25 Mg Tablet PO 01/12/25 20:59 25 mg HS CLEMENTINE Administration Insulin Glargine 18 unit 12/15/24 21:00 01/02/25 20:44 Insulin Glargine (Lantus) 5 Unit/0.05 Ml (Per 5 Units) SC 01/14/25 20:59 18 unit HS CLEMENTINE Administration Insulin Human Lispro 0 unit 01/01/25 21:00 01/03/25 11:49 Insulin Lispro (Admelog) 1 Unit/0.01 Ml Unit SC 01/31/25 20:59 1 unit ACHS CLEMENTINE Administration Protocol Ondansetron HCl 4 mg 12/10/24 23:48 01/02/25 23:49 Ondansetron Inj 2 Mg/Ml Inj 2 Ml IVP 01/09/25 23:47 4 mg Q6H PRN Administration NAUSEA OR VOMITING Protocol Sennosides 1 tab 12/16/24 14:00 01/03/25 08:54 Senna Tablet PO 01/15/25 13:59 1 tab QDAY CLEMENTINE Administration Protocol Sodium Chloride 3 ml 12/11/24 14:16 12/13/24 08:41 Sodium Chloride Rt Katherine 0.9% 3 Ml Nebu INH 01/10/25 14:15 3 ml PRN PRN Administration SOLN Plan Ms. Cedillo is a 44-year-old female with past medical history of insulin- dependent type 2 diabetes, hypertension, GERD, and history of untreated valley fever who presented to the ED on 12/10 with left flank pain, nausea/vomiting and chills. Patient was admitted for hypertensive emergency requiring close monitoring along with acute renal failure requiring urology and nephrology consultation and IV antibiotics for cystitis. Patient denied transfer for IR anterograde BL nephrostomy stents from 11 institutions, pending transfer initiation for IR placement of R nephrostomy tube. Plan to d/c on Sunday with possible transfer to Urology at [facility]. #Acute kidney injury --biopsy-proven ATN superimposed on obstructive uropathy. 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 CT showed numerous b/l nonobstructing renal calculi, mod b/l hydronephrosis wo ureteral calculi, cystitis pattern Patient received a kidney biopsy which showed ATN/AIN and underlying diabetes/hypertensive nephrosclerosis Bilateral percutaneous nephrostomy tube placed, L draining well, R with minimal drainage likely 2/2 debris . 12/24: Bladder bx and limited bladder resection (large mass occupying both ureteral orifice), L nephrostogram done showing L ureter stricture. s/p BL nephrostogram to flush R nephrostomy tube, R tube continues to have negligible output 01/02 unable to replace R nephrostomy tube, Cr inc 4.2 from 3.6 BUN 35, received HD Last HD: 12/20, 01/02 PLAN -pending transfer for IR replacement of R nephrostomy tube (possibly Urology at [facility]) -Needs outpatient tertiary care center evaluation for large bladder tumor, B ladder mass is benign, will need anterograde stents -denied transfer for IR at 11 institutions given insurance and low bed availability -Strict I/O's -Avoid nephrotoxic agents -Renally dose medications -Replete electrolytes as needed and follow-up with morning labs -pain management: per primary team #Acute urinary retention #Bilateral hydronephrosis #Leukocytosis, 15 from 11 #Cystitis #Complicated UTI, nephrolithiasis #Hematuria #Hypertensive emergency, improving--in fact on the lower side #Hypertension #Insulin-dependent type 2 diabetes #GERD -Managed per primary team Plan discussed with nephrology attending Dr. Miriam Ibrahim, DO Internal Medicine PGY-1 Attending Provider Attestation/Addendum Patient seen and examined with resident physician . Note reviewed, agree with findings and recommendations. Patient with bilateral nephrostomy tubes for obstructive uropathy. Left tube seems to be making good urine. Right tube blocked. Was adjusted thrice already. Significant debris noted. Cheng catheter was removed. Still having lower pelvic pain and back pain. Dilaudid IV was transition to p.o. Nunnelly. Pain seems to be tad better. Spoke to Dr. Vidal regarding transfer-he recommended outpatient IR follow-up if patient stable. [facility] IR seems to be giving her outpatient schedule time. Apparently 13 hospitals declined the transfer. Team has been diligently working on transfer for the last 1 week. Unfortunately yesterday I had to restart her dialysis session due to worsening azotemia. Hold dialysis today. Spoke to primary team-hopefully on Sunday after dialysis can be discharged for outpatient follow-up at [facility]. In the interim she will get twice weekly dialysis. Had a long conversation with patient and the answered all her questions.
--- NOTE | 2025-01-03 12:44 | PD.RESPRO ---
Documentation for date of: 01/03/25 Exam Vital Signs Temp Pulse Resp BP Pulse Ox O2 Del Method O2 Flow Rate 97.2 F 81 16 138/71 H 97 Room Air 4 01/03/25 12:00 01/03/25 12:00 01/03/25 12:00 01/03/25 12:00 01/03/25 12:00 01/03/25 12:00 01/01/25 14:43 Objective Labs 01/03/25 04:40 01/03/25 04:40 Labs: Laboratory Results - last 24 hr 01/03/25 04:40 WBC 16.9 H RBC 3.22 L Hgb 8.0 L Hct 26.0 L MCV 81 MCH 24.8 L MCHC 30.8 L RDW Std Deviation 43.3 Plt Count 446 H Neut % (Auto) 82 H Lymph % (Auto) 10 Carlton % (Auto) 7 Eos % (Auto) 0 Baso % (Auto) 0 Neut # (Auto) 13.9 H Lymph # (Auto) 1.6 Carlton # (Auto) 1.2 H Eos # (Auto) 0.1 Baso # (Auto) 0.1 Immature Gran # (Auto) 0.08 H Absolute Nucleated RBC 0.00 Immature Gran % 1 H Nucleated RBC % 0 Sodium 134 L Potassium 3.8 D Chloride 96 L Carbon Dioxide 26.8 Anion Gap 11 BUN 22 Creatinine 4.5 H* Estim Creat Clear Calc 16.1 L eGFR 12 L* BUN/Creatinine Ratio 5 L Glucose 120 H Calculated Osmolality 272 L Calcium 8.9 Corrected Calcium 8.9 Magnesium 2.1 Total Bilirubin 0.3 AST 14 ALT 8 L Alkaline Phosphatase 216 H Total Protein 7.3 Albumin 4.1 Globulin 3.2 Albumin/Globulin Ratio 1.3 Quality Measures Quality Measures VTE prophylaxis Assessment & Plan Assessment Current Active Medications: Generic Name Dose Route Start Last Admin Trade Name Freq PRN Reason Stop Dose Admin Acetaminophen 650 mg 12/19/24 18:23 01/02/25 05:27 Acetaminophen 325 Mg Tablet PO 01/09/25 23:47 650 mg Q6H PRN Administration PAIN 1-6 (mild-mod Protocol Hydrocodone Bitart/Acetaminophen 1 tab 01/02/25 15:00 01/03/25 11:49 Hydrocodone/Apap 10/325 Tab PO 01/07/25 14:59 1 tab Q6HR CLEMENTINE Administration Buspirone HCl 10 mg 12/11/24 21:00 01/02/25 20:31 Buspirone Hcl 5 Mg Tablet PO 01/10/25 20:59 10 mg HS CLEMENTINE Administration Carvedilol 25 mg 12/20/24 17:30 01/03/25 08:52 Carvedilol 12.5 Mg Tablet PO 01/19/25 17:29 25 mg BIDWM CLEMENTINE Administration Dextrose 25 ml 12/10/24 23:51 Dextrose 50%-Water Inj 50 Ml Syringe IV 01/09/25 23:50 Q15MIN PRN BG 50-70 responsive npo pt Dextrose 50 ml 12/10/24 23:51 12/13/24 11:33 Dextrose 50%-Water Inj 50 Ml Syringe IV 01/09/25 23:50 50 ml Q15MIN PRN Administration BG <50 OR BG <70 & pt unresponsive Famotidine 20 mg 12/19/24 09:00 01/03/25 08:54 Famotidine 20 Mg Tablet PO 01/18/25 08:59 20 mg QDAY CLEMENTINE Administration Ferrous Sulfate 325 mg 12/29/24 09:00 01/03/25 08:54 Ferrous Sulf 325 Mg Tablet PO 01/28/25 08:59 325 mg DAILY CLEMENTINE Administration Glucagon 1 mg 12/10/24 23:51 Glucagon Inj 1 Mg Vial IM Q15MIN PRN BG <70, and no IV access Heparin Sodium (Porcine) 3,800 unit 01/01/25 08:24 01/02/25 12:37 Heparin Sod Inj 1000 Unit/Ml Vial 10 Ml INDWELLCAT 01/15/25 08:23 3,800 unit X1 PRN Administration DIALYSIS Hydralazine HCl 10 mg 12/19/24 09:12 Hydralazine Inj 20 Mg/Ml Vial IVP 01/18/25 09:11 Q6HR PRN SBP > 180 Hydralazine HCl 50 mg 12/20/24 14:00 01/03/25 05:40 Hydralazine Hcl 25 Mg Tablet PO 01/19/25 13:59 50 mg TID CLEMENTINE Administration Hydroxyzine HCl 25 mg 12/13/24 21:00 01/02/25 20:31 Hydroxyzine Hcl 25 Mg Tablet PO 01/12/25 20:59 25 mg HS CLEMENTINE Administration Insulin Glargine 18 unit 12/15/24 21:00 01/02/25 20:44 Insulin Glargine (Lantus) 5 Unit/0.05 Ml (Per 5 Units) SC 01/14/25 20:59 18 unit HS CLEMENTINE Administration Insulin Human Lispro 0 unit 01/01/25 21:00 01/03/25 11:49 Insulin Lispro (Admelog) 1 Unit/0.01 Ml Unit SC 01/31/25 20:59 1 unit ACHS CLEMENTINE Administration Protocol Ondansetron HCl 4 mg 12/10/24 23:48 01/02/25 23:49 Ondansetron Inj 2 Mg/Ml Inj 2 Ml IVP 01/09/25 23:47 4 mg Q6H PRN Administration NAUSEA OR VOMITING Protocol Sennosides 1 tab 12/16/24 14:00 01/03/25 08:54 Senna Tablet PO 01/15/25 13:59 1 tab QDAY CLEMENTINE Administration Protocol Sodium Chloride 3 ml 12/11/24 14:16 12/13/24 08:41 Sodium Chloride Rt Katherine 0.9% 3 Ml Nebu INH 01/10/25 14:15 3 ml PRN PRN Administration SOLN
[2025-01-03] MEDS: ONDANSETRON INJ 2 MG/ML INJ 2 ML 4 MG IVP ×2 (13:30→21:14)
--- NOTE | 2025-01-03 17:33 | ESPR_ITS ---
<Statement entered by Joyce Jane MD - 01/07/25 14:38> I reviewed above note and agree with findings and plans. I have also personally examined the patient with medicine team and went over assessment and plan with medical team including analytics intern and resident physician. Documentation for date of: 01/03/25 Subjective Subjective Interval history: Overnight team reported patient was in significant pain despite her regular scheduled pain medications therefore she was given morphine x 1. Pt was scheduled for right nephrostomy drainage tube replaced yesterday because has not been draining for a few days. However, the nephrostomy tube replacement was unsuccessful due to unsuccessful need access. Pt has been rejected transfer from more than 11 tertiary center for IR or urology. Will hold transfer for now Further plan was discussed with patient, patient is agreeable to possible discharge outpatient, currently we started patient on Vera 10 every 6 hours, we will stop IV pain medication. Will titrate down Vera over the weekend, plan to discharge patient on outpatient dialysis and follow-up at [facility] with a urologist who is agreeable for outpatient follow-up. surgical services tech will obtain outpatient appointment for the patient. Patient is agreeable to this plan. Will continue to monitor renal function, order PT and cotninue to management pt's pain, transitioning to oral pain control. Exam Vital Signs Temp Pulse Resp BP Pulse Ox O2 Del Method O2 Flow Rate 97.2 F 73 15 112/57 L 97 Room Air 4 01/03/25 16:00 01/03/25 16:00 01/03/25 16:00 01/03/25 16:00 01/03/25 16:00 01/03/25 16:00 01/01/25 14:43 Narrative Exam Physical Exam: General: A/O x3, no acute distress, well-nourished, well-developed. Skin: Right IJ permanent catheter noted. Left nephrostomy tubes in place with clear urine drainage. Warm, dry, intact, no obvious rash. Head: Normocephalic, atraumatic. Eyes: PERRL, EOMI. Anicteric, vision grossly intact. Ears: No ear pain, no ear discharge, Hearing grossly intact. Nose: No nasal discharge. Mouth/Throat: Oral mucosa moist. No obvious lesions in oropharynx. Neck: Neck supple, non-tender, no cervical lymphadenopathy. Cardiovascular: Regular rate and rhythm, no murmur, no JVD or carotid bruits. +S1/S2. Respiratory: Bilateral lungs are clear to auscultation and percussion, respirations unlabored, no crackles, no wheezing. No accessory muscle use. Gastrointestinal: Tenderness to palpation of RLQ. Soft, non-distended, no palpable masses. No guarding or rebound tenderness. Peristalsis present. Extremities: Symmetrical, no significant deformities. No edema, no cyanosis, no clubbing. 2+ radial pulse bilaterally, 2+ posterior tibial pulse bilaterally. Neuro: No focal deficits observed. Conversant, moving all extremities. No overt cerebellar signs/incoordination. Psychiatric: Cooperative, appropriate affect. Objective Labs 01/03/25 04:40 01/03/25 04:40 Labs: Laboratory Results - last 24 hr 01/03/25 04:40 WBC 16.9 H RBC 3.22 L Hgb 8.0 L Hct 26.0 L MCV 81 MCH 24.8 L MCHC 30.8 L RDW Std Deviation 43.3 Plt Count 446 H Neut % (Auto) 82 H Lymph % (Auto) 10 [place] % (Auto) 7 Eos % (Auto) 0 Baso % (Auto) 0 Neut # (Auto) 13.9 H Lymph # (Auto) 1.6 [place] # (Auto) 1.2 H Eos # (Auto) 0.1 Baso # (Auto) 0.1 Immature Gran # (Auto) 0.08 H Absolute Nucleated RBC 0.00 Immature Gran % 1 H Nucleated RBC % 0 Sodium 134 L Potassium 3.8 D Chloride 96 L Carbon Dioxide 26.8 Anion Gap 11 BUN 22 Creatinine 4.5 H* Estim Creat Clear Calc 16.1 L eGFR 12 L* BUN/Creatinine Ratio 5 L Glucose 120 H Calculated Osmolality 272 L Calcium 8.9 Corrected Calcium 8.9 Magnesium 2.1 Total Bilirubin 0.3 AST 14 ALT 8 L Alkaline Phosphatase 216 H Total Protein 7.3 Albumin 4.1 Globulin 3.2 Albumin/Globulin Ratio 1.3 Quality Measures Quality Measures VTE prophylaxis Assessment & Plan Assessment Current Active Medications: Generic Name Dose Route Start Last Admin Trade Name Freq PRN Reason Stop Dose Admin Acetaminophen 650 mg 12/19/24 18:23 01/02/25 05:27 Acetaminophen 325 Mg Tablet PO 01/09/25 23:47 650 mg Q6H PRN Administration PAIN 1-6 (mild-mod Protocol Hydrocodone Bitart/Acetaminophen 1 tab 01/02/25 15:00 01/03/25 11:49 Hydrocodone/Apap 10/325 Tab PO 01/07/25 14:59 1 tab Q6HR CLEMENTINE Administration Buspirone HCl 10 mg 12/11/24 21:00 01/02/25 20:31 Buspirone Hcl 5 Mg Tablet PO 01/10/25 20:59 10 mg HS CLEMENTINE Administration Carvedilol 25 mg 12/20/24 17:30 01/03/25 08:52 Carvedilol 12.5 Mg Tablet PO 01/19/25 17:29 25 mg BIDWM CLEMENTINE Administration Dextrose 25 ml 12/10/24 23:51 Dextrose 50%-Water Inj 50 Ml Syringe IV 01/09/25 23:50 Q15MIN PRN BG 50-70 responsive npo pt Dextrose 50 ml 12/10/24 23:51 12/13/24 11:33 Dextrose 50%-Water Inj 50 Ml Syringe IV 01/09/25 23:50 50 ml Q15MIN PRN Administration BG <50 OR BG <70 & pt unresponsive Famotidine 20 mg 12/19/24 09:00 01/03/25 08:54 Famotidine 20 Mg Tablet PO 01/18/25 08:59 20 mg QDAY CLEMENTINE Administration Ferrous Sulfate 325 mg 12/29/24 09:00 01/03/25 08:54 Ferrous Sulf 325 Mg Tablet PO 01/28/25 08:59 325 mg DAILY CLEMENTINE Administration Glucagon 1 mg 12/10/24 23:51 Glucagon Inj 1 Mg Vial IM Q15MIN PRN BG <70, and no IV access Heparin Sodium (Porcine) 3,800 unit 01/01/25 08:24 01/02/25 12:37 Heparin Sod Inj 1000 Unit/Ml Vial 10 Ml INDWELLCAT 01/15/25 08:23 3,800 unit X1 PRN Administration DIALYSIS Hydralazine HCl 10 mg 12/19/24 09:12 Hydralazine Inj 20 Mg/Ml Vial IVP 01/18/25 09:11 Q6HR PRN SBP > 180 Hydralazine HCl 50 mg 12/20/24 14:00 01/03/25 13:28 Hydralazine Hcl 25 Mg Tablet PO 01/19/25 13:59 50 mg TID CLEMENTINE Administration Hydroxyzine HCl 25 mg 12/13/24 21:00 01/02/25 20:31 Hydroxyzine Hcl 25 Mg Tablet PO 01/12/25 20:59 25 mg HS CLEMENTINE Administration Insulin Glargine 18 unit 12/15/24 21:00 01/02/25 20:44 Insulin Glargine (Lantus) 5 Unit/0.05 Ml (Per 5 Units) SC 01/14/25 20:59 18 unit HS CLEMENTINE Administration Insulin Human Lispro 0 unit 01/01/25 21:00 01/03/25 11:49 Insulin Lispro (Admelog) 1 Unit/0.01 Ml Unit SC 01/31/25 20:59 1 unit ACHS CLEMENTINE Administration Protocol Ondansetron HCl 4 mg 12/10/24 23:48 01/03/25 13:30 Ondansetron Inj 2 Mg/Ml Inj 2 Ml IVP 01/09/25 23:47 4 mg Q6H PRN Administration NAUSEA OR VOMITING Protocol Sennosides 1 tab 12/16/24 14:00 01/03/25 08:54 Senna Tablet PO 01/15/25 13:59 1 tab QDAY CLEMENTINE Administration Protocol Sodium Chloride 3 ml 12/11/24 14:16 12/13/24 08:41 Sodium Chloride Rt Katherine 0.9% 3 Ml Nebu INH 01/10/25 14:15 3 ml PRN PRN Administration SOLN Plan 44-year-old female with past medical history of insulin-dependent type 2 diabetes, hypertension, GERD, history of valley fever presented to the ED on 12/10 with episode of left flank pain, nausea/vomiting and chills will be admitted for hypertensive emergency requiring close monitoring along with acute renal failure requiring urology and nephrology consultation and IV antibiotics for cystitis #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 Friedman: found Bilateral hydronephrosis, large bladder mass occupying posterior bladder wall occupying the ureteral orifices. -After cystoscopy, patient noted that she had history of cervical cancer 3 years ago. -MRI abd/pelvis: Mild to moderate bilateral hydronephorsis, and dilated ureters extending to the bladder. -Per nephrology, the bladder mass is confined to the bladder. -Patient received bilatereal percutaneous nephrostomy tube placement on 12/19/2024 -12/24/2024 Creatinine is 3.8. Total Output is 4.3L. Right nephrostomy tube output is markedly decreased, with bloody urine noted in the drainage bag. Plan: -Patient underwent nephrostogramon 12/26, has satisfactory drainage from bilateral nephrostomy tubes. Right nephrostomy tube nephrostogram patient has shows that patient has extensive debris's in the renal collecting system. -Patient scheduled for replacement of right-sided nephrostomy tube today. -Case was discussed with urologist who recommended anterograde stent placed by interventional radiologist, was discussed with interventional radiology, IR interventional radiologist informed that he is unable to perform the procedure, per interventional radiology there is extensive debris's, patient needs stent placement to improve drainage from nephrostomy tube as well. -Case was discussed with the urologist again urology said that the patient has extensive mass which is occlusive, and patient will need higher level of care interventional radiology procedure for anterograde stent placement. Transfer nurse was informed, transfer process initiated. -Patient has been rejected transfer from more than 11 tertiary center for IR or urology. Will hold transfer for now -Further plan was discussed with patient, patient is agreeable to possible discharge outpatient, currently we started patient on Vera 10 every 6 hours, we will stop IV pain medication. Will titrate down Vera over the weekend, plan to discharge patient on outpatient dialysis and follow-up at [facility] with a urologist who is agreeable for outpatient follow-up. surgical services tech will obtain outpatient appointment for the patient. Patient is agreeable to this plan. #Acute renal failure 2/2 Urinary Retention 2/2 Obstructive Uropathy #HD, permanent dialysis cath inserted on 12/15/24 Patient experienced acute renal failure, likely secondary to obstructive uropathy given bladder mass noted on cystoscopy report. Previous UA noted to have hematuria. Improving renal function with nephrostomy tubes in place. Diagnostics: -Repeat UA 12/14 Urine protein +1 Urine blood +1 RBC 5 -12/20/2024 Patient produced 4.2 L of urine . -12/22/2024 Patient's output was 1155 mL. Hematuria was observed in the output from the right nephrostomy tube, while the left nephrostomy output remained clear and unremarkable. Cr level of 3.8 Plan: -Nephrology consulted, Dr. Pierre, -Avoid nephrotoxic agents -Renally dose medications -Replete electrolytes as needed and follow-up with morning labs - Continue hemodialysis per strategy lead. #Acute urinary retention, improving #Bilateral hydronephrosis, likely secondary to obstruction #Chronic Cystitis #Complicated UTI, nephrolithiasis #Hematuria -On exam, patient no longer has left flank flank with CVA tenderness -CT abdomen pelvis shows a thick-walled cavitary lesion in the right middle lobe and a 22 mm pulmonary nodule in the anterior right lower lobe, numerous bilateral nonobstructing renal calculi, moderate bilateral hydronephrosis without calculi and cystitis -Based on CTAP presentation, urinary retention due to intake of meclizine was suspected as patient started to take it 1wk everyday prior to coming to the hospital. -Renal Ultrasound- Moderate bilateral hydronephrosis Plan: -Advised to stop taking meclizine. -Finished receiving IV ceftriaxone 2g IV qd (12/11-12/16). Rec IV ceftriaxone 1g IV qd (12/17-12/23) #Hypertensive emergency, improving #Primary Hypertension Patient has significant history of hypertension on home antihypertensives Presenting to the ED with acute renal failure and elevated systolic pressure in the 200s Plan: - Coreg 25 mg PO BID - Hydralazine 50mg PO TID #Insulin-dependent type 2 diabetes Pertinent labs: 06/2024 A1C 11.1 12/11/24 A1C 8.0 Patient apparently takes 30 units of long-acting insulin twice a day Plan: -Insulin Glargine 18 units at bedtime -Sliding scale insulin ordered #History of Valley Fever -CTAP(03/21/2024):30 mm thick-walled cavitary lesion partially visualized right midlung,, 22 mm pulmonary nodule anterior right lower lobe -CXR(07/16/2024): Poorly defined nodular density 18 mm in the right lower lobe, -CXR (12/10/2024):Opacity right base which may represent a pulmonary mass, 19 mm -CTAP(12/10/2024): thick walled 25 mm cavitary lesion in the right middle lobe and 22mm pulmonary nodule anterior right lower lobe Plan: -Fairly stable right lung pulmonary nodule. -Will continue to monitor. #GERD Chronic medical problems: All pertinent to the following presentation Plan: -Continue Pantoprazole 40 mg PO QD Health Maintenance: Lines: PIV Diet: Renal and carb consistent low Bowel: Senna GI prophylaxis: Pantoprazole 40 mg PO QD DVT prophylaxis: SCD, heparin every 12 hours Dispo: Pending pain management optimization Code: Full Assessment and plan discussed with my attending physician Dr. Buck Jones (PGY-2)- Internal medicine resident
[2025-01-03] MEDS: INSULIN GLARGINE (Lantus) 5 UNIT/0.05 ML (PER 5 UNITS) 18 UNIT SC (20:16)
[2025-01-03] MEDS: HEPARIN SOD INJ 5000 UNIT/ML VIAL SC (20:16)
[2025-01-04] VITALS (11 sets, daily range): BP systolic 106–152; BP diastolic 55–88; PULSE 61–80; RESP 15–18; TEMP 36.1–36.3; O2SAT 95–97
[2025-01-04 06:23] LABS: Basophils # (Auto) 0.1 Thou/mm3 (0.0-0.2); Basophils % (Auto) 1 % (0-2.5); Eosinophils # (Auto) 0.3 Thou/mm3 (0.0-0.5); Eosinophils % (Auto) 3 % (0-10); Hematocrit 22.2 % (36.0-46.0); Immature Granulocytes Auto 0.06 Thou/mm3 (0.00-0.00); Lymphocytes # (Auto) 2.0 Thou/mm3 (1.0-4.8); Lymphocytes % (Auto) 22 % (10-50); Mean Corpuscular HGB Conc 31.5 g/dl (31.0-37.0); Mean Corpuscular Hemoglobin 25.3 pg (25.0-35.0); Mean Corpuscular Volume 80 fL (80-100); Monocytes # (Auto) 0.8 Thou/mm3 (0.0-0.8); Monocytes % (Auto) 8 % (0-12); Neutrophils # (Auto) 6.1 Thou/mm3 (1.8-7.7); Neutrophils % (Auto) 66 % (37-80); Nucleated Red Blood Cell # 0.00 Thou/mm3 (0.00-0.00); Nucleated Red Blood Cell % 0 /100 WBC (0); Platelet Count 405 Thou/mm3 (140-440); RDW Standard Deviation 42.7 fL (36.4-46.3); Red Blood Count 2.77 Miln/mm3 (4.00-5.20); White Blood Count 9.4 Thou/mm3 (3.6-11.0)
[2025-01-04 06:24] LABS: Hemoglobin 7.0 g/dL (12.0-16.0)
[2025-01-04 07:22] LABS: Alanine Aminotransferase 8 U/L (10-49); Albumin, Serum 3.8 gm/dL (3.5-5.0); Albumin/Globulin Ratio 1.4 (1.2-2.2); Alkaline Phosphatase 162 U/L (46-116); Anion Gap 13 (7-16); Aspartate Amino Transferase < 10 U/L (0-34); BUN/Creatinine Ratio 5 Ratio (12-20); Bilirubin,Total 0.2 mg/dL (0.3-1.2); Blood Urea Nitrogen 28 mg/dL (9-23); Calcium 8.8 mg/dL (8.3-10.6); Calcium (Corrected) 9.0 mg/dL (8.5-10.1); Carbon Dioxide 26.1 mMol/L (20.0-31.0); Chloride 95 mMol/L (98-107); Creatinine (Component) 5.9 mg/dL (0.6-1.3); Estimated Creatinine Clearance 12.2 mL/min (>60); Globulin 2.8 gm/dL (2.3-3.5); Glucose 99 mg/dL (74-106); Osmolality,Calculated 273 (275-295); Potassium 4.3 mMol/L (3.4-5.1); Sodium 134 mMol/L (136-145); Total Protein 6.6 gm/dL (5.7-8.2); eGFR 9 See Note
[2025-01-04] MEDS: FAMOTIDINE 20 MG TABLET PO (08:44)
[2025-01-04] MEDS: HEPARIN SOD INJ 5000 UNIT/ML VIAL SC ×2 (08:45→21:40)
[2025-01-04] MEDS: FERROUS SULF 325 MG TABLET PO (08:45)
--- NOTE | 2025-01-04 08:46 | ESPR_ITS ---
Documentation for date of: 01/04/25 Subjective Subjective Interval history: Ms. Cedillo is a 44-year-old female with past medical history of insulin- dependent type 2 diabetes, hypertension, GERD, and history of untreated valley fever who presented to the ED on 12/10 with left flank pain, nausea/vomiting and chills. Patient states that the chills started roughly an hour ago but that she has been having progressively worsening left flank pain radiating to her back. Patient denies having any dysuria but does state that she has been having lilia hematuria for several days. Patient denies having any fevers but she does state that she has been having chills. Patient also complains of suprapubic pain and mentions that she feels pain near her ovaries. Patient has not seen a PCP regarding the symptoms but she was seen several weeks ago for GERD-like symptoms and was given medications. Patient otherwise denies having any concerning symptoms such as chest pain, dizziness, shortness of breath. In the ED, patient presented with hypertensive emergency with a blood pressure 187/83, other vitals wnl. Pertinent lab findings included WBC of 9, hemoglobin 7.9, potassium of 5.4, BUN of 31, creatinine 3.9, EGFR of 14, magnesium 1.6, troponin less than 0.02, BNP of 235, urinalysis shows hematuria and mild pyuria but no bacteria. Chest x-ray shows mild prominence of ventricles along with opacity in the right base concerning for pulmonary mass, EKG shows sinus rhythm without any concerning ST changes and CT abdomen pelvis shows a thick-walled cavitary lesion in the right middle lobe and a 22 mm pulmonary nodule in the anterior right lower lobe, numerous bilateral nonobstructing renal calculi, moderate bilateral hydronephrosis without calculi and cystitis. Patient will be admitted for hypertensive emergency requiring close monitoring along with acute renal failure requiring urology and nephrology consultation and IV antibiotics for cystitis Upon seeing the patient currently, she is on Mg Sulfate, Ceftriaxone, Carvedilol 6.25 mg, and maintenance IV fluids with a slightly improved blood pressure of 168/88 with the rest of vitals wnl. Patient states she is currently feeling much better now. States that she still has some nausea, L flank pain radiating to back and some dizziness when she stands up for too long. Patient states she has noticed blood in her urine today and ever since March. Patient endorses having bowel movements. Patient denies fever, headache, chest pain, shortness of breath, vomiting. Interval History 12/29/2024: Patient seen and examined at bedside. She is sitting upright at the edge of the bed crying due to pain in RLQ that extends towards R groin and leg, likely 2/2 to bladder mass.patient states that pain is not improved with oxycodone, but dilauded helps. Blood sugar 131, BP 143/80, WBC 12.8, Hgb stable, Bilateral nephrostomy tubes, R tube is not draining, Left tube is draining clear yellow urine 900cc. Cheng catheter with minimal output Hold HD, remove HD catheter, pain control, pending transfer to tertiary care center for anterograde stents and bladder mass removal. 12/30/24: Patient seen and examined at bedside. She is laying in bed and continues to report RLQ abdominal pain that extends towards R groin and leg. pt is s/p BL nephrogram on 12/29 to flush the nephrostomy tubes given R tube not draining. today there is minimal drainage from R tube, L continues to have good output 1535. HD cath remains in place, Pending transfer (if transfer for IR at higher care facility is rejected, will persue transfer for urology) no HD today, Cr stable 3.3 from 3.2. 12/31/2024: Patient seen and examined at bedside. She is laying in bed and continues to report RLQ abdominal pain that extends towards R groin and leg. pt getting regular Dilaudid. D/c cheng if daily output <100, downgrade pt from [facility] to [facility], ok for shower. primary team will discuss with Dr. Aponte about replacing R nephrostomy tube given minimal output. L continues to have good output. HD cath remains in place. Pt transfer for IR has heen denied at 9 institutions due to insurance not being accepted or bed availability, Cr 3.4 from 3.3, NO HD today. Plan for initating urology transfer. 01/01/2025: Patient seen and examined at bedside. She is laying flat in bed with blankets, she reports that she is cold. She continues to report RLQ abdominal pain that extends towards the R groin and leg. Per primary team, plan to replace R nephrostomy tube given negligible output. Left nephrostomy tube continues to have good output. Cr is climbing steadily, 3.6 from 3.4, Plan to hold HD. Pt transfer for IR has been rejected at 11 institutions. plan for initiating urology transfer. 01/02/2025: Patient seen and examined while in HD. She was laying comfortably on her Left side. She states that the RLQ pain is well controlled right now. pt was unable to replace R nephrostomy tube. L nephrostomy tube remains in place with good output, cheng catheter in place. Cr 4.2 3.6, BUN 35 from 30. HD today. 01/03/2025: No overnight events. Patient seen and examined at bedside; they report feeling generally well today with no new complaints or concerns. Labs notable for an increase in WBC from 15.7 to 16.9, creatinine increase from 4.2 to 4.5, eGFR reduction from 13 to 12, and alkaline phosphatase increase from 204 to 216. Plan to d/c on Sunday with possible transfer to Urology at [facility]. 01/04/2025: Patient seen and examined. She was sitting upright in chair looking comfortable. no new complaints or concerns. cheng was d/c, L nephrostomy tube with 250 cc output, BUN 28 from 22, Cr 5.9 from 4.5. no HD today, plan for HD tomorrow prior to discharge. d/c IV pain meds, pending discharge tomorrow. per primary team, she will follow up with Dr. Shana Jones, in [facility] and will have stat referal to outpatient Urology for placement of antegrade stents. Exam Vital Signs Temp Pulse Resp BP Pulse Ox O2 Del Method O2 Flow Rate 97.3 F 69 17 130/76 97 Room Air 4 01/04/25 07:28 01/04/25 07:28 01/04/25 07:28 01/04/25 07:28 01/04/25 07:28 01/04/25 07:28 01/01/25 14:43 Narrative Exam Physical Exam: General: A/O x3, no acute distress, well-nourished, well-developed. Skin: Right IJ permanent catheter noted. Left nephrostomy tubes in place with clear urine drainage. Warm, dry, intact, no obvious rash. Head: Normocephalic, atraumatic. Eyes: PERRL, EOMI. Anicteric, vision grossly intact. Cardiovascular: well perfused on visual inspection Respiratory: normal work of breathing, No accessory muscle use. Gastrointestinal: c/o Tenderness to palpation of RLQ, well controlled on current pain reg. Extremities: Symmetrical, no significant deformities. No edema, no cyanosis, no clubbing. Neuro: No focal deficits observed. Conversant, moving all extremities. No overt cerebellar signs/incoordination. Psychiatric: Cooperative, appropriate affect. Objective Labs 01/04/25 05:06 01/04/25 05:06 Labs: Laboratory Results - last 24 hr 01/04/25 05:06 WBC 9.4 D RBC 2.77 L Hgb 7.0 L Hct 22.2 L MCV 80 MCH 25.3 MCHC 31.5 RDW Std Deviation 42.7 Plt Count 405 D Neut % (Auto) 66 Lymph % (Auto) 22 [place] % (Auto) 8 Eos % (Auto) 3 Baso % (Auto) 1 Neut # (Auto) 6.1 Lymph # (Auto) 2.0 [place] # (Auto) 0.8 Eos # (Auto) 0.3 Baso # (Auto) 0.1 Immature Gran # (Auto) 0.06 H Absolute Nucleated RBC 0.00 Immature Gran % 1 H Nucleated RBC % 0 Sodium 134 L Potassium 4.3 D Chloride 95 L Carbon Dioxide 26.1 Anion Gap 13 BUN 28 H Creatinine 5.9 H* D Estim Creat Clear Calc 12.2 L eGFR 9 L* BUN/Creatinine Ratio 5 L Glucose 99 Calculated Osmolality 273 L Calcium 8.8 Corrected Calcium 9.0 Total Bilirubin 0.2 L AST < 10 ALT 8 L Alkaline Phosphatase 162 H D Total Protein 6.6 Albumin 3.8 Globulin 2.8 Albumin/Globulin Ratio 1.4 Quality Measures Quality Measures VTE prophylaxis Assessment & Plan Assessment Current Active Medications: Generic Name Dose Route Start Last Admin Trade Name Freq PRN Reason Stop Dose Admin Acetaminophen 650 mg 12/19/24 18:23 01/02/25 05:27 Acetaminophen 325 Mg Tablet PO 01/09/25 23:47 650 mg Q6H PRN Administration PAIN 1-6 (mild-mod Protocol Hydrocodone Bitart/Acetaminophen 1 tab 01/02/25 15:00 01/04/25 06:20 Hydrocodone/Apap 10/325 Tab PO 01/07/25 14:59 1 tab Q6HR CLEMENTINE Administration Buspirone HCl 10 mg 12/11/24 21:00 01/03/25 20:16 Buspirone Hcl 5 Mg Tablet PO 01/10/25 20:59 10 mg HS CLEMENTINE Administration Carvedilol 25 mg 12/20/24 17:30 01/03/25 17:42 Carvedilol 12.5 Mg Tablet PO 01/19/25 17:29 25 mg BIDWM CLEMENTINE Administration Dextrose 25 ml 12/10/24 23:51 Dextrose 50%-Water Inj 50 Ml Syringe IV 01/09/25 23:50 Q15MIN PRN BG 50-70 responsive npo pt Dextrose 50 ml 12/10/24 23:51 12/13/24 11:33 Dextrose 50%-Water Inj 50 Ml Syringe IV 01/09/25 23:50 50 ml Q15MIN PRN Administration BG <50 OR BG <70 & pt unresponsive Famotidine 20 mg 12/19/24 09:00 01/03/25 08:54 Famotidine 20 Mg Tablet PO 01/18/25 08:59 20 mg QDAY CLEMENTINE Administration Ferrous Sulfate 325 mg 12/29/24 09:00 01/03/25 08:54 Ferrous Sulf 325 Mg Tablet PO 01/28/25 08:59 325 mg DAILY CLEMENTINE Administration Glucagon 1 mg 12/10/24 23:51 Glucagon Inj 1 Mg Vial IM Q15MIN PRN BG <70, and no IV access Heparin Sodium (Porcine) 3,800 unit 01/01/25 08:24 01/02/25 12:37 Heparin Sod Inj 1000 Unit/Ml Vial 10 Ml INDWELLCAT 01/15/25 08:23 3,800 unit X1 PRN Administration DIALYSIS Heparin Sodium (Porcine) 5,000 unit 01/03/25 21:00 01/03/25 20:16 Heparin Sod Inj 5000 Unit/Ml Vial SC 01/17/25 20:59 5,000 unit Q12HR CLEMENTINE Administration Hydralazine HCl 10 mg 12/19/24 09:12 Hydralazine Inj 20 Mg/Ml Vial IVP 01/18/25 09:11 Q6HR PRN SBP > 180 Hydralazine HCl 50 mg 12/20/24 14:00 01/04/25 06:40 Hydralazine Hcl 25 Mg Tablet PO 01/19/25 13:59 50 mg TID CLEMENTINE Administration Hydroxyzine HCl 25 mg 12/13/24 21:00 01/03/25 20:16 Hydroxyzine Hcl 25 Mg Tablet PO 01/12/25 20:59 25 mg HS CLEMENTINE Administration Insulin Glargine 18 unit 12/15/24 21:00 01/03/25 20:16 Insulin Glargine (Lantus) 5 Unit/0.05 Ml (Per 5 Units) SC 01/14/25 20:59 18 unit HS CLEMENTINE Administration Insulin Human Lispro 0 unit 01/01/25 21:00 01/04/25 07:24 Insulin Lispro (Admelog) 1 Unit/0.01 Ml Unit SC 01/31/25 20:59 Not Given ACHS CLEMENTINE Protocol Ondansetron HCl 4 mg 12/10/24 23:48 01/03/25 21:14 Ondansetron Inj 2 Mg/Ml Inj 2 Ml IVP 01/09/25 23:47 4 mg Q6H PRN Administration NAUSEA OR VOMITING Protocol Sennosides 1 tab 12/16/24 14:00 01/03/25 08:54 Senna Tablet PO 01/15/25 13:59 1 tab QDAY CLEMENTINE Administration Protocol Sodium Chloride 3 ml 12/11/24 14:16 12/13/24 08:41 Sodium Chloride Rt Katherine 0.9% 3 Ml Nebu INH 01/10/25 14:15 3 ml PRN PRN Administration SOLN Plan Ms. Cedillo is a 44-year-old female with past medical history of insulin- dependent type 2 diabetes, hypertension, GERD, and history of untreated valley fever who presented to the ED on 12/10 with left flank pain, nausea/vomiting and chills. Patient was admitted for hypertensive emergency requiring close monitoring along with acute renal failure requiring urology and nephrology consultation and IV antibiotics for cystitis. Patient denied transfer for IR anterograde BL nephrostomy stents from 13 institutions. Plan to d/c on Sunday after HD. and f/u at [facility] on sunday with Dr. Jones. will require outpatient follow up with urology at tertiary center. #Acute kidney injury --biopsy-proven ATN superimposed on obstructive uropathy. 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 CT showed numerous b/l nonobstructing renal calculi, mod b/l hydronephrosis wo ureteral calculi, cystitis pattern Patient received a kidney biopsy which showed ATN/AIN and underlying diabetes/hypertensive nephrosclerosis Bilateral percutaneous nephrostomy tube placed, L draining well, R with minimal drainage likely 2/2 debris . 12/24: Bladder bx and limited bladder resection (large mass occupying both ureteral orifice), L nephrostogram done showing L ureter stricture. s/p BL nephrostogram to flush R nephrostomy tube, R tube continues to have negligible output 01/02 unable to replace R nephrostomy tube, Cr inc 4.2 from 3.6 BUN 35, received HD 01/04 Cr inc 5.9 from 4.5, BUN 28 from 22/ K wnl Last HD: 12/20, 01/02 PLAN - no HD today, plan for HD tomorrow 01/05 prior to discharge - plan for stat outpatient referral to [facility] for Urology -Needs outpatient tertiary care center evaluation for large bladder tumor, B ladder mass is benign, will need anterograde stents -denied transfer for IR at 13 institutions given insurance and low bed availability -Strict I/O's -Avoid nephrotoxic agents -Renally dose medications -Replete electrolytes as needed and follow-up with morning labs -pain management: per primary team, transition to PO pain meds pending discharge. #Acute urinary retention- cheng was removed. #Bilateral hydronephrosis #Leukocytosis, 15 from 11 #Cystitis #Complicated UTI, nephrolithiasis #Hematuria #Hypertensive emergency, improving--in fact on the lower side #Hypertension #Insulin-dependent type 2 diabetes #GERD -Managed per primary team Plan discussed with nephrology attending Dr. Miriam Ibrahim, DO Internal Medicine PGY-1 Attending Provider Attestation/Addendum Patient seen and examined with resident physician Dr. Kirk. Note reviewed, agree with findings and recommendations. Patient with bilateral nephrostomy tubes for obstructive uropathy. Left tube seems to be making good urine. Right tube blocked. Was adjusted thrice already. Significant debris noted. Cheng catheter was removed. Still having lower pelvic pain and back pain. Dilaudid IV was transition to p.o. Odell. Pain seems to be tad better. Spoke to Dr. Vidal regarding transfer-he recommended outpatient IR follow-up if patient stable. [facility] IR seems to be giving her outpatient schedule time. Apparently 13 hospitals declined the transfer. Team has been diligently working on transfer for the last 1 week. Unfortunately yesterday I had to restart her dialysis session due to worsening azotemia. Hold dialysis today. Spoke to primary team-hopefully on Sunday after dialysis can be discharged for outpatient follow-up at [facility]. In the interim she will get twice weekly dialysis. Had a long conversation with patient and the answered all her questions.
[2025-01-04] MEDS: INSULIN LISPRO (AdmeLOG) 1 UNIT/0.01 ML UNIT SC ×3 (11:38→21:39)
--- NOTE | 2025-01-04 13:49 | ESPR_ITS ---
<Statement entered by Joyce Jane MD - 01/08/25 09:09> I reviewed above note and agree with findings and plans. I have also personally examined the patient with medicine team and went over assessment and plan with medical team including internal medicine nurse and resident physician. Documentation for date of: 01/04/25 Subjective Subjective Interval history: Patient seen and examined at bedside this morning. Patient endorses to significant improvement in her pain with oral medications. Patient was able to take a shower and ambulate without difficulty or pain. Right nephrostomy tube has no output. Patient has been rejected transfer from multiple institutions including for IR or urology services. Patient is stable enough to be discharged tomorrow to follow-up outpatient with Dr. Forbes in [place], referral has been sent to the clinic patient will be given more information upon discharge. Plan is to schedule hemodialysis session tomorrow and post dialysis will plan for discharge. Patient will likely need outpatient dialysis per schedule which will be Sunday. Exam Vital Signs Temp Pulse Resp BP Pulse Ox O2 Del Method O2 Flow Rate 97.3 F 70 18 124/76 97 Room Air 4 01/04/25 11:51 01/04/25 13:11 01/04/25 11:51 01/04/25 13:11 01/04/25 11:51 01/04/25 11:51 01/01/25 14:43 Narrative Exam Physical Exam: General: A/O x3, no acute distress, well-nourished, well-developed. Skin: Right IJ permanent catheter noted. Left nephrostomy tubes in place with clear urine drainage. Warm, dry, intact, no obvious rash. Head: Normocephalic, atraumatic. Eyes: PERRL, EOMI. Anicteric, vision grossly intact. Cardiovascular: well perfused on visual inspection Respiratory: normal work of breathing, No accessory muscle use. Gastrointestinal: c/o Tenderness to palpation of RLQ, well controlled on current pain reg. Extremities: Symmetrical, no significant deformities. No edema, no cyanosis, no clubbing. Neuro: No focal deficits observed. Conversant, moving all extremities. No overt cerebellar signs/incoordination. Psychiatric: Cooperative, appropriate affect. Objective Labs 01/04/25 05:06 01/04/25 05:06 Labs: Laboratory Results - last 24 hr 01/04/25 05:06 WBC 9.4 D RBC 2.77 L Hgb 7.0 L Hct 22.2 L MCV 80 MCH 25.3 MCHC 31.5 RDW Std Deviation 42.7 Plt Count 405 D Neut % (Auto) 66 Lymph % (Auto) 22 [place] % (Auto) 8 Eos % (Auto) 3 Baso % (Auto) 1 Neut # (Auto) 6.1 Lymph # (Auto) 2.0 [place] # (Auto) 0.8 Eos # (Auto) 0.3 Baso # (Auto) 0.1 Immature Gran # (Auto) 0.06 H Absolute Nucleated RBC 0.00 Immature Gran % 1 H Nucleated RBC % 0 Sodium 134 L Potassium 4.3 D Chloride 95 L Carbon Dioxide 26.1 Anion Gap 13 BUN 28 H Creatinine 5.9 H* D Estim Creat Clear Calc 12.2 L eGFR 9 L* BUN/Creatinine Ratio 5 L Glucose 99 Calculated Osmolality 273 L Calcium 8.8 Corrected Calcium 9.0 Total Bilirubin 0.2 L AST < 10 ALT 8 L Alkaline Phosphatase 162 H D Total Protein 6.6 Albumin 3.8 Globulin 2.8 Albumin/Globulin Ratio 1.4 Quality Measures Quality Measures VTE prophylaxis Assessment & Plan Assessment Current Active Medications: Generic Name Dose Route Start Last Admin Trade Name Freq PRN Reason Stop Dose Admin Acetaminophen 650 mg 12/19/24 18:23 01/02/25 05:27 Acetaminophen 325 Mg Tablet PO 01/09/25 23:47 650 mg Q6H PRN Administration PAIN 1-6 (mild-mod Protocol Hydrocodone Bitart/Acetaminophen 1 tab 01/02/25 15:00 01/04/25 11:38 Hydrocodone/Apap 10/325 Tab PO 01/07/25 14:59 1 tab Q6HR CLEMENTINE Administration Buspirone HCl 10 mg 12/11/24 21:00 01/03/25 20:16 Buspirone Hcl 5 Mg Tablet PO 01/10/25 20:59 10 mg HS CLEMENTINE Administration Carvedilol 25 mg 12/20/24 17:30 01/04/25 08:43 Carvedilol 12.5 Mg Tablet PO 01/19/25 17:29 25 mg BIDWM CLEMENTINE Administration Dextrose 25 ml 12/10/24 23:51 Dextrose 50%-Water Inj 50 Ml Syringe IV 01/09/25 23:50 Q15MIN PRN BG 50-70 responsive npo pt Dextrose 50 ml 12/10/24 23:51 12/13/24 11:33 Dextrose 50%-Water Inj 50 Ml Syringe IV 01/09/25 23:50 50 ml Q15MIN PRN Administration BG <50 OR BG <70 & pt unresponsive Famotidine 20 mg 12/19/24 09:00 01/04/25 08:44 Famotidine 20 Mg Tablet PO 01/18/25 08:59 20 mg QDAY CLEMENTINE Administration Ferrous Sulfate 325 mg 12/29/24 09:00 01/04/25 08:45 Ferrous Sulf 325 Mg Tablet PO 01/28/25 08:59 325 mg DAILY CLEMENTINE Administration Glucagon 1 mg 12/10/24 23:51 Glucagon Inj 1 Mg Vial IM Q15MIN PRN BG <70, and no IV access Heparin Sodium (Porcine) 3,800 unit 01/01/25 08:24 01/02/25 12:37 Heparin Sod Inj 1000 Unit/Ml Vial 10 Ml INDWELLCAT 01/15/25 08:23 3,800 unit X1 PRN Administration DIALYSIS Heparin Sodium (Porcine) 5,000 unit 01/03/25 21:00 01/04/25 08:45 Heparin Sod Inj 5000 Unit/Ml Vial SC 01/17/25 20:59 5,000 unit Q12HR CLEMENTINE Administration Hydralazine HCl 10 mg 12/19/24 09:12 Hydralazine Inj 20 Mg/Ml Vial IVP 01/18/25 09:11 Q6HR PRN SBP > 180 Hydralazine HCl 50 mg 12/20/24 14:00 01/04/25 13:11 Hydralazine Hcl 25 Mg Tablet PO 01/19/25 13:59 50 mg TID CLEMENTINE Administration Hydroxyzine HCl 25 mg 12/13/24 21:00 01/03/25 20:16 Hydroxyzine Hcl 25 Mg Tablet PO 01/12/25 20:59 25 mg HS CLEMENTINE Administration Insulin Glargine 18 unit 12/15/24 21:00 01/03/25 20:16 Insulin Glargine (Lantus) 5 Unit/0.05 Ml (Per 5 Units) SC 01/14/25 20:59 18 unit HS CLEMENTINE Administration Insulin Human Lispro 0 unit 01/01/25 21:00 01/04/25 11:38 Insulin Lispro (Admelog) 1 Unit/0.01 Ml Unit SC 01/31/25 20:59 1 unit ACHS CLEMENTINE Administration Protocol Ondansetron HCl 4 mg 12/10/24 23:48 01/03/25 21:14 Ondansetron Inj 2 Mg/Ml Inj 2 Ml IVP 01/09/25 23:47 4 mg Q6H PRN Administration NAUSEA OR VOMITING Protocol Sennosides 1 tab 12/16/24 14:00 01/04/25 08:44 Senna Tablet PO 01/15/25 13:59 1 tab QDAY CLEMENTINE Administration Protocol Sodium Chloride 3 ml 12/11/24 14:16 12/13/24 08:41 Sodium Chloride Rt Katherine 0.9% 3 Ml Nebu INH 01/10/25 14:15 3 ml PRN PRN Administration SOLN Plan 44-year-old female with past medical history of insulin-dependent type 2 diabetes, hypertension, GERD, history of valley fever presented to the ED on 12/10 with episode of left flank pain, nausea/vomiting and chills will be admitted for hypertensive emergency requiring close monitoring along with acute renal failure requiring urology and nephrology consultation and IV antibiotics for cystitis #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 Friedman: found Bilateral hydronephrosis, large bladder mass occupying posterior bladder wall occupying the ureteral orifices. -After cystoscopy, patient noted that she had history of cervical cancer 3 years ago. -MRI abd/pelvis: Mild to moderate bilateral hydronephorsis, and dilated ureters extending to the bladder. -Per nephrology, the bladder mass is confined to the bladder. -Patient received bilatereal percutaneous nephrostomy tube placement on 12/19/2024 -12/24/2024 Creatinine is 3.8. Total Output is 4.3L. Right nephrostomy tube output is markedly decreased, with bloody urine noted in the drainage bag. Plan: -Patient underwent nephrostogramon 12/26, has satisfactory drainage from bilateral nephrostomy tubes. Right nephrostomy tube nephrostogram patient has shows that patient has extensive debris's in the renal collecting system. -Patient scheduled for replacement of right-sided nephrostomy tube today. -Case was discussed with urologist who recommended anterograde stent placed by interventional radiologist, was discussed with interventional radiology, IR interventional radiologist informed that he is unable to perform the procedure, per interventional radiology there is extensive debris's, patient needs stent placement to improve drainage from nephrostomy tube as well. -Case was discussed with the urologist again urology said that the patient has extensive mass which is occlusive, and patient will need higher level of care interventional radiology procedure for anterograde stent placement. Transfer nurse was informed, transfer process initiated. -Patient has been rejected transfer from more than 11 tertiary center for IR or urology. Will hold transfer for now -Further plan was discussed with patient, patient is agreeable to possible discharge outpatient, currently we started patient on [place] 10 every 6 hours, we will stop IV pain medication. Will titrate down [place] over the weekend, plan to discharge patient on outpatient dialysis and follow-up at [facility] with a urologist who is agreeable for outpatient follow-up. financial services officer will obtain outpatient appointment for the patient. Patient is agreeable to this plan. #Acute renal failure 2/2 Urinary Retention 2/2 Obstructive Uropathy #HD, permanent dialysis cath inserted on 12/15/24 Patient experienced acute renal failure, likely secondary to obstructive uropathy given bladder mass noted on cystoscopy report. Previous UA noted to have hematuria. Improving renal function with nephrostomy tubes in place. Diagnostics: -Repeat UA 12/14 Urine protein +1 Urine blood +1 RBC 5 -12/20/2024 Patient produced 4.2 L of urine . -12/22/2024 Patient's output was 1155 mL. Hematuria was observed in the output from the right nephrostomy tube, while the left nephrostomy output remained clear and unremarkable. Cr level of 3.8 Plan: -Nephrology consulted, Dr. Pierre, -Avoid nephrotoxic agents -Renally dose medications -Replete electrolytes as needed and follow-up with morning labs - Continue hemodialysis per plant operations manager. #Acute urinary retention, improving #Bilateral hydronephrosis, likely secondary to obstruction #Chronic Cystitis #Complicated UTI, nephrolithiasis #Hematuria -On exam, patient no longer has left flank flank with CVA tenderness -CT abdomen pelvis shows a thick-walled cavitary lesion in the right middle lobe and a 22 mm pulmonary nodule in the anterior right lower lobe, numerous bilateral nonobstructing renal calculi, moderate bilateral hydronephrosis without calculi and cystitis -Based on CTAP presentation, urinary retention due to intake of meclizine was suspected as patient started to take it 1wk everyday prior to coming to the hospital. -Renal Ultrasound- Moderate bilateral hydronephrosis Plan: -Advised to stop taking meclizine. -Finished receiving IV ceftriaxone 2g IV qd (12/11-12/16). Rec IV ceftriaxone 1g IV qd (12/17-12/23) #Hypertensive emergency, improving #Primary Hypertension Patient has significant history of hypertension on home antihypertensives Presenting to the ED with acute renal failure and elevated systolic pressure in the 200s Plan: - Coreg 25 mg PO BID - Hydralazine 50mg PO TID #Insulin-dependent type 2 diabetes Pertinent labs: 06/2024 A1C 11.1 12/11/24 A1C 8.0 Patient apparently takes 30 units of long-acting insulin twice a day Plan: -Insulin Glargine 18 units at bedtime -Sliding scale insulin ordered #History of Valley Fever -CTAP(03/21/2024):30 mm thick-walled cavitary lesion partially visualized right midlung,, 22 mm pulmonary nodule anterior right lower lobe -CXR(07/16/2024): Poorly defined nodular density 18 mm in the right lower lobe, -CXR (12/10/2024):Opacity right base which may represent a pulmonary mass, 19 mm -CTAP(12/10/2024): thick walled 25 mm cavitary lesion in the right middle lobe and 22mm pulmonary nodule anterior right lower lobe Plan: -Fairly stable right lung pulmonary nodule. -Will continue to monitor. #GERD Chronic medical problems: All pertinent to the following presentation Plan: -Continue Pantoprazole 40 mg PO QD Health Maintenance: Lines: PIV Diet: Renal and carb consistent low Bowel: Senna GI prophylaxis: Pantoprazole 40 mg PO QD DVT prophylaxis: SCD, heparin every 12 hours Dispo: Pending pain management optimization Code: Full Assessment and plan discussed with my attending physician Dr. Buck Schwab (PGY-2)- Internal medicine resident
--- NOTE | 2025-01-04 14:58 | PC.SS ---
Rounding note: HD session to be completed on 01/05/25 and then patient will discharge.
--- NOTE | 2025-01-04 17:38 | PC.CC ---
[address] Schwab regarding transfer. Got orders transfer is canceled, pt will follow Dr. Forbes at [place] as outpatient. Also per transfer center handoff pt can follow up with Dr. Forbes (urology) at the [facility], [address] [place] [address]. . Per Transfer center handoff Summer?at [facility] sent the referral to the clinic and patient can follow up at that clinic as outpatient.?I added the information to discharge plan. Dr. Schwab made aware.
[2025-01-04] MEDS: INSULIN GLARGINE (Lantus) 5 UNIT/0.05 ML (PER 5 UNITS) 18 UNIT SC (21:39)
[2025-01-05] VITALS (21 sets, daily range): BP systolic 128–172; BP diastolic 61–95; PULSE 63–84; RESP 15–19; TEMP 36.1–37.1; O2SAT 92–98
[2025-01-05 06:49] LABS: Basophils # (Auto) 0.1 Thou/mm3 (0.0-0.2); Basophils % (Auto) 1 % (0-2.5); Eosinophils # (Auto) 0.3 Thou/mm3 (0.0-0.5); Eosinophils % (Auto) 4 % (0-10); Hematocrit 24.3 % (36.0-46.0); Immature Granulocytes Auto 0.06 Thou/mm3 (0.00-0.00); Lymphocytes # (Auto) 1.9 Thou/mm3 (1.0-4.8); Lymphocytes % (Auto) 21 % (10-50); Mean Corpuscular HGB Conc 31.7 g/dl (31.0-37.0); Mean Corpuscular Hemoglobin 25.2 pg (25.0-35.0); Mean Corpuscular Volume 79 fL (80-100); Monocytes # (Auto) 0.8 Thou/mm3 (0.0-0.8); Monocytes % (Auto) 9 % (0-12); Neutrophils # (Auto) 5.7 Thou/mm3 (1.8-7.7); Neutrophils % (Auto) 65 % (37-80); Nucleated Red Blood Cell # 0.00 Thou/mm3 (0.00-0.00); Nucleated Red Blood Cell % 0 /100 WBC (0); Platelet Count 478 Thou/mm3 (140-440); RDW Standard Deviation 42.3 fL (36.4-46.3); Red Blood Count 3.06 Miln/mm3 (4.00-5.20); White Blood Count 8.8 Thou/mm3 (3.6-11.0)
[2025-01-05 07:02] LABS: Hemoglobin 7.7 g/dL (12.0-16.0)
[2025-01-05 07:04] LABS: Alanine Aminotransferase 9 U/L (10-49); Albumin, Serum 4.0 gm/dL (3.5-5.0); Albumin/Globulin Ratio 1.3 (1.2-2.2); Alkaline Phosphatase 145 U/L (46-116); Anion Gap 12 (7-16); Aspartate Amino Transferase 11 U/L (0-34); BUN/Creatinine Ratio 5 Ratio (12-20); Bilirubin,Total < 0.2 mg/dL (0.3-1.2); Blood Urea Nitrogen 32 mg/dL (9-23); Calcium 9.4 mg/dL (8.3-10.6); Calcium (Corrected) 9.4 mg/dL (8.5-10.1); Carbon Dioxide 26.9 mMol/L (20.0-31.0); Chloride 94 mMol/L (98-107); Creatinine (Component) 6.3 mg/dL (0.6-1.3); Estimated Creatinine Clearance 11.4 mL/min (>60); Globulin 3.0 gm/dL (2.3-3.5); Glucose 146 mg/dL (74-106); Osmolality,Calculated 276 (275-295); Potassium 3.8 mMol/L (3.4-5.1); Sodium 133 mMol/L (136-145); Total Protein 7.0 gm/dL (5.7-8.2); eGFR 8 See Note
--- NOTE | 2025-01-05 07:27 | ESPR_ITS ---
RE: [id number] LIN : 1980 DATE OF SERVICE: 01/02/2025 HISTORY OF PRESENT ILLNESS: This is a 44-year-old female. She was admitted to the hospital in acute renal failure. She had placement of bilateral percutaneous nephrostomy because of hydronephrosis, bilateral. The patient had a cystoscopic examination and was found to have a large mass in the bladder. Both ureteral orifices could not be visualized. The patient had a mini TUR of the bladder mass for diagnostic purposes. 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 She has bilateral percutaneous nephrostomy. Nephrostogram was performed and the contrast medium will not go into the bladder. The patient had attempted right nephrostomy drainage tube placement, it was unsuccessful. This is a complex case with a large bladder mass and she needs placement of antegrade bilateral ureteral stent before resection of the mass. In this [facility] and not having a dedicated expertise in placement of antegrade stents and it is beyond the scope of my practice to manage this patient. RECOMMENDATIONS: My recommendation is this patient needs to be transferred to [facility] for management of the case. DT: 09:11:07 TT: 10:37:00 Ref: [id number] - TID: [id number] [email or web address]
--- NOTE | 2025-01-05 08:56 | PD.RESCONSUL ---
HPI Data of Consult Requesting Physician: Brittany Morton DO Admitting Provider: Charly Clements MD Attending Provider: Brittany Morton DO Primary Care Provider: Stan Cedillo MD Consult Narrative cc:: cc: Brittany Morton DO Exam Vital Signs Temp Pulse Resp BP Pulse Ox O2 Del Method O2 Flow Rate 97.0 F 72 19 134/70 H 96 Room Air 4 01/05/25 08:00 01/05/25 08:00 01/05/25 08:00 01/05/25 08:00 01/05/25 08:00 01/05/25 08:00 01/01/25 14:43 Results Labs 01/05/25 05:39 01/05/25 05:39 Labs: Short CBC 01/05/25 Range/Units 05:39 WBC 8.8 (3.6-11.0) Thou/mm3 Hgb 7.7 L (12.0-16.0) g/dL Hct 24.3 L (36.0-46.0) % Plt Count 478 H D (140-440) Thou/mm3 BMP 01/05/25 05:39 Sodium 133 L Potassium 3.8 D Chloride 94 L Carbon Dioxide 26.9 BUN 32 H Creatinine 6.3 H* Glucose 146 H Calcium 9.4 Liver Function 01/05/25 Range/Units 05:39 Total Bilirubin < 0.2 L (0.3-1.2) mg/dL AST 11 (0-34) U/L ALT 9 L (10-49) U/L Alkaline Phosphatase 145 H (46-116) U/L Albumin 4.0 (3.5-5.0) gm/dL Quality Measures Quality Measures VTE prophylaxis Medications Home Medications and Allergies Home Medications ?Medication ?Instructions ?Recorded ?Confirmed ?Type blood sugar diagnostic (Accu-Chek 12/11/24 12/11/24 History Guide test strips) buspirone 10 mg tablet 10 mg PO HS 12/11/24 12/11/24 History insulin glargine-yfgn 100 unit/mL 30 unit subcut QDAY 12/11/24 12/11/24 History (3 mL) subcutaneous pen (Semglee (insulin glargine-yfgn) Pen) insulin lispro 100 unit/mL 5 unit subcut TID 12/11/24 12/11/24 History subcutaneous pen lancets (Accu-Chek Softclix 12/11/24 12/11/24 History Lancets) losartan 100 mg tablet 100 mg PO QDAY 12/11/24 12/11/24 History meclizine 25 mg chewable tablet 25 mg PO QDAY 12/11/24 12/11/24 History metoclopramide HCl 10 mg tablet 10 mg PO QDAY 12/11/24 12/11/24 History naproxen 500 mg tablet 500 mg PO Q12H PRN pain 12/11/24 12/11/24 History omeprazole 40 mg capsule,delayed 40 mg PO QDAY 12/11/24 12/11/24 History release pen needle, diabetic 31 gauge x 12/11/24 12/11/24 History 1/4 (TRUEplus Pen Needle) sumatriptan succinate 50 mg tablet 50 mg PO QDAY 12/11/24 12/11/24 History Allergies Allergy/AdvReac Type Severity Reaction Status Date / Time No Known Allergies Allergy Verified 12/10/24 16:47 Visit Medications Acetaminophen (Acetaminophen 325 Mg Tablet) 650 mg PO Q6H PRN; Protocol PRN Reason: PAIN 1-6 (mild-mod Stop: 01/09/25 23:47 Last Admin: 01/02/25 05:27 Dose: 650 mg Hydrocodone Bitart/Acetaminophen (Hydrocodone/Apap 10/325 Tab) 1 tab PO Q6HR [facility] Stop: 01/07/25 14:59 Last Admin: 01/05/25 06:05 Dose: 1 tab Buspirone HCl (Buspirone Hcl 5 Mg Tablet) 10 mg PO HS [facility] Stop: 01/10/25 20:59 Last Admin: 01/04/25 21:38 Dose: 10 mg Carvedilol (Carvedilol 12.5 Mg Tablet) 25 mg PO BIDWM [facility] Stop: 01/19/25 17:29 Last Admin: 01/05/25 08:19 Dose: Not Given Dextrose (Dextrose 50%-Water Inj 50 Ml Syringe) 25 ml IV Q15MIN PRN PRN Reason: BG 50-70 responsive npo pt Stop: 01/09/25 23:50 Dextrose (Dextrose 50%-Water Inj 50 Ml Syringe) 50 ml IV Q15MIN PRN PRN Reason: BG <50 OR BG <70 & pt unresponsive Stop: 01/09/25 23:50 Last Admin: 12/13/24 11:33 Dose: 50 ml Famotidine (Famotidine 20 Mg Tablet) 20 mg PO QDAY [facility] Stop: 01/18/25 08:59 Last Admin: 01/05/25 08:19 Dose: Not Given Ferrous Sulfate (Ferrous Sulf 325 Mg Tablet) 325 mg PO DAILY [facility] Stop: 01/28/25 08:59 Last Admin: 01/05/25 08:20 Dose: Not Given Glucagon (Glucagon Inj 1 Mg Vial) 1 mg IM Q15MIN PRN PRN Reason: BG <70, and no IV access Heparin Sodium (Porcine) (Heparin Sod Inj 1000 Unit/Ml Vial 10 Ml) 3,800 unit INDWELLCAT X1 PRN PRN Reason: DIALYSIS Stop: 01/15/25 08:23 Last Admin: 01/02/25 12:37 Dose: 3,800 unit Heparin Sodium (Porcine) (Heparin Sod Inj 5000 Unit/Ml Vial) 5,000 unit SC Q12HR [facility] Stop: 01/17/25 20:59 Last Admin: 01/05/25 08:20 Dose: Not Given Hydralazine HCl (Hydralazine Inj 20 Mg/Ml Vial) 10 mg IVP Q6HR PRN PRN Reason: SBP > 180 Stop: 01/18/25 09:11 Hydralazine HCl (Hydralazine Hcl 25 Mg Tablet) 50 mg PO TID [facility] Stop: 01/19/25 13:59 Last Admin: 01/05/25 06:04 Dose: 50 mg Hydroxyzine HCl (Hydroxyzine Hcl 25 Mg Tablet) 25 mg PO HS [facility] Stop: 01/12/25 20:59 Last Admin: 01/04/25 21:38 Dose: 25 mg Insulin Glargine (Insulin Glargine (Lantus) 5 Unit/0.05 Ml (Per 5 Units)) 18 unit SC [facility] Stop: 01/14/25 20:59 Last Admin: 01/04/25 21:39 Dose: 18 unit Insulin Human Lispro (Insulin Lispro (Admelog) 1 Unit/0.01 Ml Unit) 0 unit SC [facility]; Protocol Stop: 01/31/25 20:59 Last Admin: 01/05/25 07:45 Dose: Not Given Ondansetron HCl (Ondansetron Inj 2 Mg/Ml Inj 2 Ml) 4 mg IVP Q6H PRN; Protocol PRN Reason: NAUSEA OR VOMITING Stop: 01/09/25 23:47 Last Admin: 01/03/25 21:14 Dose: 4 mg Sennosides (Senna Tablet) 1 tab PO QDAY [facility]; Protocol Stop: 01/15/25 13:59 Last Admin: 01/05/25 08:20 Dose: Not Given Sodium Chloride (Sodium Chloride Rt [place] 0.9% 3 Ml Nebu) 3 ml INH PRN PRN PRN Reason: SOLN Stop: 01/10/25 14:15 Last Admin: 12/13/24 08:41 Dose: 3 ml Discontinued Medications Acetaminophen (Acetaminophen 325 Mg Tablet) 650 mg PO Q6H PRN PRN Reason: PAIN SCALE 1-3 (mild Stop: 01/09/25 23:47 Last Admin: 12/18/24 16:26 Dose: 650 mg Hydrocodone Bitart/Acetaminophen (Hydrocodone/Apap 5/325 Tablet) 1 tab PO X1 ONE Stop: 12/15/24 16:03 Last Admin: 12/15/24 16:39 Dose: 1 tab Hydrocodone Bitart/Acetaminophen (Hydrocodone/Apap 5/325 Tablet) 1 tab PO Q6HR PRN PRN Reason: PAIN SCALE 4-6 (Moderate Stop: 12/31/24 13:58 Last Admin: 12/26/24 21:21 Dose: 1 tab Hydrocodone Bitart/Acetaminophen (Hydrocodone/Apap 5/325 Tablet) 1 tab PO X1 ONE Stop: 01/02/25 01:13 Last Admin: 01/02/25 01:15 Dose: 1 tab Albuterol (Albuterol Rt 2.5 Mg/0.5 Ml Nebu) 10 mg INH X1 ONE Stop: 12/11/24 14:17 Last Admin: 12/11/24 14:42 Dose: 10 mg Albuterol (Albuterol Rt 2.5 Mg/0.5 Ml Nebu) 2.5 mg INH X1 ONE Stop: 12/13/24 08:31 Last Admin: 12/13/24 08:40 Dose: 2.5 mg Amlodipine Besylate (Amlodipine Besylate 5 Mg Tablet) 5 mg PO QDAY [facility] Stop: 01/10/25 08:59 Last Admin: 12/11/24 08:18 Dose: 5 mg Amlodipine Besylate (Amlodipine Besylate 5 Mg Tablet) 10 mg PO QDAY [facility] Stop: 01/11/25 08:59 Last Admin: 12/12/24 08:18 Dose: 10 mg Amlodipine Besylate (Amlodipine Besylate 5 Mg Tablet) 5 mg PO X1 ONE Stop: 12/11/24 09:14 Last Admin: 12/11/24 10:20 Dose: 5 mg Calcium Acetate (Calcium Acetate 667 Mg Tablet) 667 mg PO TIDWM [facility] Stop: 01/12/25 11:59 Last Admin: 12/28/24 17:18 Dose: 667 mg Carvedilol (Carvedilol 3.125 Mg Tablet) 6.25 mg PO BIDWM [facility] Stop: 01/10/25 09:14 Last Admin: 12/13/24 16:48 Dose: 6.25 mg Carvedilol (Carvedilol 12.5 Mg Tablet) 12.5 mg PO BIDWM [facility] Stop: 01/13/25 07:59 Last Admin: 12/20/24 10:22 Dose: Not Given Citric Acid/Sodium Citrate (Citric Acid/Sodium Citr 15 Ml Udc (Bicitra)) 30 ml PO BID [facility] Stop: 01/11/25 08:59 Last Admin: 12/24/24 20:56 Dose: 30 ml Dextrose (Dextrose 50%-Water Inj 50 Ml Syringe) 50 ml IVP X1 ONE Stop: 12/11/24 00:36 Last Admin: 12/11/24 01:00 Dose: 50 ml Dextrose (Dextrose 50%-Water Inj 50 Ml Syringe) 50 ml IVP X1 ONE Stop: 12/11/24 14:31 Last Admin: 12/11/24 15:01 Dose: 50 ml Dextrose (Dextrose 50%-Water Inj 50 Ml Syringe) 50 ml IVP X1 ONE Stop: 12/12/24 09:08 Last Admin: 12/12/24 10:09 Dose: 50 ml Dextrose (Dextrose 50%-Water Inj 50 Ml Syringe) 50 ml IVP X1 ONE Stop: 12/13/24 08:24 Last Admin: 12/13/24 10:18 Dose: 50 ml Dicyclomine HCl (Dicyclomine 10 Mg Capsule) 20 mg PO X1 ONE Stop: 12/12/24 20:34 Last Admin: 12/12/24 20:48 Dose: 20 mg Doxycycline Hyclate (Doxycycline 100 Mg Tablet) 100 mg PO BID [facility] Stop: 01/06/25 11:44 Last Admin: 01/01/25 08:22 Dose: 100 mg Epoetin Oneil (Epoetin Oneil-Epbx Inj 10,000 Unit/Ml Vial (Non-Esrd)) 10,000 unit SC X1 ONE Stop: 12/16/24 12:46 Last Admin: 12/16/24 12:50 Dose: 10,000 unit Epoetin Oneil (Epoetin Oneil-Epbx Inj 10,000 Unit/Ml Vial (Esrd)) 10,000 unit SC X1 ONE Stop: 12/18/24 10:31 Last Admin: 12/18/24 10:37 Dose: 10,000 unit Epoetin Oneil (Epoetin Oneil-Epbx Inj 10,000 Unit/Ml Vial (Esrd)) 10,000 unit SC X1 ONE Stop: 12/20/24 10:01 Last Admin: 12/20/24 11:19 Dose: 10,000 unit Epoetin Oneil (Epoetin Oneil-Epbx Inj 10,000 Unit/Ml Vial (Esrd)) 10,000 unit SC X1 ONE Stop: 12/25/24 06:51 Last Admin: 12/25/24 09:09 Dose: 10,000 unit Epoetin Oneil (Epoetin Oneil-Epbx Inj 10,000 Unit/Ml Vial (Esrd)) 10,000 unit IV X1 ONE Stop: 01/01/25 10:01 Last Admin: 01/01/25 10:20 Dose: 10,000 unit Epoetin Oneil (Epoetin Oneil-Epbx Inj 10,000 Unit/Ml Vial (Esrd)) 10,000 unit SC X1 ONE Stop: 01/02/25 10:31 Last Admin: 01/02/25 11:52 Dose: 10,000 unit Fentanyl Citrate (Fentanyl Cit Inj 50 Mcg/Ml Amp 2ml) 75 mcg IVP X1 ONE Stop: 12/15/24 15:10 Last Admin: 12/15/24 15:09 Dose: 75 mcg Fentanyl Citrate (Fentanyl Cit Inj 50 Mcg/Ml Amp 2ml) 75 mcg IVP X1 ONE Stop: 12/16/24 09:59 Last Admin: 12/16/24 10:03 Dose: 75 mcg Fentanyl Citrate (Fentanyl Cit Inj 50 Mcg/Ml Amp 2ml) 50 mcg IVP Q5MIN PRN PRN Reason: PAIN SCALE 4-10(Mod-Sev Stop: 12/17/24 18:49 Fentanyl Citrate (Fentanyl Cit Inj 50 Mcg/Ml Amp 2ml) 175 mcg IVP X1 ONE Stop: 12/19/24 14:31 Last Admin: 12/19/24 14:35 Dose: 175 mcg Fentanyl Citrate (Fentanyl Cit Inj 50 Mcg/Ml Amp 2ml) 100 mcg IVP X1 ONE Stop: 01/01/25 14:01 Last Admin: 01/01/25 14:18 Dose: 100 mcg Fentanyl Citrate (Fentanyl Cit Inj 50 Mcg/Ml Amp 2ml) 100 mcg IVP Q1HR PRN PRN Reason: BREAKTHROUGH PAIN Stop: 01/06/25 13:59 Ferrous Sulfate (Ferrous Sulf 325 Mg Tablet) 325 mg PO QOD [facility] Stop: 01/20/25 08:59 Last Admin: 12/27/24 08:09 Dose: 325 mg Furosemide (Furosemide Inj 10 Mg/Ml Vial 2 Ml) 20 mg IVP X1 ONE Stop: 12/10/24 23:11 Last Admin: 12/11/24 00:41 Dose: 20 mg Heparin Sodium (Beef Lung) (Heparin Sod Lock Syr 100 Unit/Ml) 500 unit INTRACATH X1 ONE Stop: 12/15/24 15:02 Last Admin: 12/15/24 15:01 Dose: 500 unit Heparin Sodium (Beef Lung) (Heparin Sod Lock Syr 100 Unit/Ml) 500 unit [place] X1 ONE Stop: 01/01/25 14:01 Last Admin: 01/01/25 14:00 Dose: 500 unit Heparin Sodium (Porcine) (Heparin Sod Inj 5000 Unit/Ml Vial 10 Ml) 3,800 unit INTRACATH X1 ONE Stop: 12/15/24 16:08 Last Admin: 12/15/24 16:07 Dose: 3,800 unit Heparin Sodium (Porcine) (Heparin Sod Inj 1000 Unit/Ml Vial 10 Ml) 3,800 unit INDWELLCAT X1 PRN PRN Reason: DIALYSIS Stop: 12/30/24 12:28 Last Admin: 12/20/24 12:20 Dose: 3,800 unit Hydralazine HCl (Hydralazine Inj 20 Mg/Ml Vial) 10 mg IVP X1 ONE Stop: 12/11/24 00:25 Last Admin: 12/11/24 00:40 Dose: 10 mg Hydralazine HCl (Hydralazine Hcl 25 Mg Tablet) 25 mg PO TID [facility] Stop: 01/10/25 17:09 Last Admin: 12/12/24 13:50 Dose: 25 mg Hydralazine HCl (Hydralazine Hcl 25 Mg Tablet) 50 mg PO TID [facility] Stop: 01/11/25 21:59 Last Admin: 12/13/24 06:08 Dose: 50 mg Hydralazine HCl (Hydralazine Hcl 25 Mg Tablet) 25 mg PO X1 ONE Stop: 12/12/24 14:24 Last Admin: 12/12/24 14:57 Dose: 25 mg Hydralazine HCl (Hydralazine Inj 20 Mg/Ml Vial) 5 mg IV Q20MIN PRN PRN Reason: SEE COMMENTS Stop: 12/17/24 18:49 Hydromorphone HCl (Hydromorphone Inj 2 Mg/Ml Vial) 0.5 mg IVP X1 ONE Stop: 12/17/24 00:01 Last Admin: 12/17/24 00:08 Dose: 0.5 mg Hydromorphone HCl (Hydromorphone Inj 2 Mg/Ml Vial) 0.5 mg IVP X1 ONE Stop: 12/19/24 02:40 Last Admin: 12/19/24 02:44 Dose: 0.5 mg Hydromorphone HCl (Hydromorphone Inj 2 Mg/Ml Vial) 0.5 mg IVP X1 ONE Stop: 12/19/24 16:05 Last Admin: 12/19/24 16:21 Dose: 0.5 mg Hydromorphone HCl (Hydromorphone Inj 2 Mg/Ml Vial) 0.5 mg IVP Q4HR PRN PRN Reason: PAIN SCALE 7-10 (Severe Stop: 12/24/24 18:21 Last Admin: 12/24/24 17:27 Dose: 0.5 mg Hydromorphone HCl (Hydromorphone Inj 2 Mg/Ml Vial) 0.5 mg IVP Q4HR PRN PRN Reason: Pain 7-10 or breakthrough Stop: 12/29/24 18:43 Last Admin: 12/27/24 04:49 Dose: 0.5 mg Hydromorphone HCl (Hydromorphone Inj 2 Mg/Ml Vial) 0.25 mg IVP X1 ONE Stop: 12/27/24 09:08 Last Admin: 12/27/24 09:52 Dose: Not Given Hydromorphone HCl (Hydromorphone Inj 2 Mg/Ml Vial) 0.75 mg IVP Q4HR PRN PRN Reason: Pain 7-10 or breakthrough Stop: 12/29/24 18:43 Last Admin: 12/29/24 13:37 Dose: 0.75 mg Hydromorphone HCl (Hydromorphone Inj 2 Mg/Ml Vial) 0.75 mg IVP Q4HR PRN PRN Reason: pain 7-10 or breakthrough Stop: 01/03/25 20:13 Last Admin: 01/01/25 08:19 Dose: 0.75 mg Hydromorphone HCl (Hydromorphone Inj 2 Mg/Ml Vial) 0.75 mg IVP Q4HR PRN PRN Reason: pain 7-10 or breakthrough Stop: 01/03/25 20:13 Last Admin: 01/02/25 12:22 Dose: 0.75 mg Hydromorphone HCl (Hydromorphone Inj 2 Mg/Ml Vial) 0.75 mg IVP Q6HR PRN PRN Reason: pain 7-10 or breakthrough Stop: 01/06/25 10:23 Last Admin: 01/02/25 20:51 Dose: 0.75 mg Hydromorphone HCl (Hydromorphone Inj 2 Mg/Ml Vial) 0.75 mg IVP Q8HR PRN PRN Reason: BREAKTHROUGH PAIN (SEVERE) Stop: 01/07/25 14:49 Hydroxyzine HCl (Hydroxyzine Hcl 10 Mg Tablet) 10 mg PO X1 ONE Stop: 12/13/24 13:02 Last Admin: 12/13/24 13:59 Dose: 10 mg Sodium Chloride (Ns) 250 mls @ 999 mls/hr IV .Q16M ONE Stop: 12/10/24 20:11 Last Infusion: 12/10/24 23:09 Dose: Infused Sodium Chloride (Ns) 1,000 mls @ 999 mls/hr IV .Q1H1M ONE Stop: 12/11/24 00:05 Last Infusion: 12/11/24 00:54 Dose: Infused Ceftriaxone Sodium/Dextrose (Rocephin/D5w 1gm Iv Premix) 1 gm in 50 mls @ 100 mls/hr IV X1 ONE Stop: 12/10/24 23:36 Last Admin: 12/11/24 01:11 Dose: Not Given Sodium Chloride (Ns) 1,000 mls @ 75 mls/hr IV .[id number] [facility] Stop: 01/09/25 23:44 Last Admin: 12/11/24 15:10 Dose: 75 mls/hr Ceftriaxone Sodium/Dextrose (Rocephin/D5w 1gm Iv Premix) 1 gm in 50 mls @ 100 mls/hr IV QPM [facility] Stop: 12/18/24 20:59 Magnesium Sulfate (Magnesium Sulfate Ivpb) 4 gm in 50 mls @ 12.5 mls/hr IV X1 ONE Stop: 12/11/24 03:52 Last Admin: 12/11/24 01:01 Dose: 12.5 mls/hr Ceftriaxone Sodium/Dextrose (Rocephin/D5w 1gm Iv Premix) 1 gm in 50 mls @ 100 mls/hr IV X1 ONE Stop: 12/11/24 01:29 Last Infusion: 12/11/24 01:11 Dose: Infused Ceftriaxone Sodium/Dextrose (Rocephin/D5w 2gm) 2 gm in 50 mls @ 100 mls/hr IV QDAY [facility] Stop: 12/18/24 09:14 Last Admin: 12/16/24 14:07 Dose: Not Given Sodium Chloride (Ns) 1,000 mls @ 75 mls/hr IV .[id number] ONE Stop: 12/13/24 02:46 Last Admin: 12/12/24 13:51 Dose: 75 mls/hr Sodium Chloride (Ns) 500 mls @ 20 mls/hr IV .Q24H [facility] Stop: 12/16/24 15:14 Last Admin: 12/15/24 15:05 Dose: 20 mls/hr Ceftriaxone Sodium/Dextrose (Rocephin/D5w 1gm Iv Premix) 1 gm in 50 mls @ 100 mls/hr IV QDAY [facility] Stop: 12/24/24 08:59 Last Admin: 12/23/24 09:11 Dose: 100 mls/hr Promethazine HCl 12.5 mg/ (Sodium Chloride) 50.5 mls @ 2.5 mls/min IV X1 PRN PRN Reason: NAUSEA OR VOMITING Stop: 12/17/24 18:49 Magnesium Sulfate (Magnesium Sulfate Ivpb) 2 gm in 50 mls @ 25 mls/hr IV X1 ONE Stop: 12/19/24 09:44 Last Admin: 12/19/24 08:57 Dose: 25 mls/hr Magnesium Sulfate (Magnesium Sulfate Ivpb) 2 gm in 50 mls @ 25 mls/hr IV X1 ONE Stop: 12/21/24 09:55 Last Admin: 12/21/24 08:56 Dose: 25 mls/hr Magnesium Sulfate (Magnesium Sulfate Ivpb) 2 gm in 50 mls @ 25 mls/hr IV X1 ONE Stop: 12/24/24 10:25 Last Admin: 12/24/24 09:37 Dose: 25 mls/hr Potassium Chloride (Kcl Ivpb) 10 meq in 100 mls @ 100 mls/hr IV Q1H [facility] Stop: 12/24/24 12:28 Last Admin: 12/24/24 16:45 Dose: 80 mls/hr Ferumoxytol 510 mg/ Sodium (Chloride) 117 mls @ 234 mls/hr IV X1 ONE Stop: 12/25/24 06:51 Ferumoxytol 510 mg/ Sodium (Chloride) 117 mls @ 234 mls/hr IV X1 ONE Stop: 12/25/24 07:59 Last Infusion: 12/25/24 09:45 Dose: Infused Magnesium Sulfate (Magnesium Sulfate Ivpb) 4 gm in 50 mls @ 12.5 mls/hr IV X1 ONE Stop: 12/29/24 12:48 Last Infusion: 12/29/24 15:01 Dose: Infused Piperacillin/Tazobactam/Dextrose (Zosyn) 3.375 gm in 50 mls @ 100 mls/hr IV X1 ONE Stop: 12/30/24 12:13 Last Admin: 12/30/24 12:16 Dose: 100 mls/hr Piperacillin/Tazobactam/Dextrose (Zosyn) 3.375 gm in 50 mls @ 12.5 mls/hr IV Q12HR [facility]; Protocol Stop: 01/06/25 20:59 Last Admin: 01/01/25 08:21 Dose: 12.5 mls/hr Insulin Glargine (Insulin Glargine (Lantus) 5 Unit/0.05 Ml (Per 5 Units)) 15 unit SC HS [facility] Stop: 01/10/25 20:59 Last Admin: 12/14/24 20:45 Dose: 15 unit Insulin Human Lispro (Insulin Lispro (Admelog) 1 Unit/0.01 Ml Unit) 0 unit SC [facility]; Protocol Stop: 01/10/25 07:29 Last Admin: 12/15/24 22:05 Dose: 1 unit Insulin Human Lispro (Insulin Lispro (Admelog) 1 Unit/0.01 Ml Unit) 0 unit SC Q6HR [facility]; Protocol Stop: 01/15/25 06:14 Last Admin: 12/16/24 19:41 Dose: Not Given Insulin Human Lispro (Insulin Lispro (Admelog) 1 Unit/0.01 Ml Unit) 0 unit SC [facility]; Protocol Stop: 01/15/25 20:59 Last Admin: 12/17/24 21:07 Dose: 3 unit Insulin Human Lispro (Insulin Lispro (Admelog) 1 Unit/0.01 Ml Unit) 0 unit SC Q6HR [facility]; Protocol Stop: 01/17/25 05:59 Last Admin: 12/19/24 19:03 Dose: Not Given Insulin Human Lispro (Insulin Lispro (Admelog) 1 Unit/0.01 Ml Unit) 0 unit SC [facility]; Protocol Stop: 01/18/25 20:59 Last Admin: 12/31/24 22:20 Dose: 1 unit Insulin Human Lispro (Insulin Lispro (Admelog) 1 Unit/0.01 Ml Unit) 0 unit SC Q6HR [facility]; Protocol Stop: 01/31/25 06:14 Last Admin: 01/01/25 17:01 Dose: Not Given Insulin Human Regular (Insulin Hum Regular 1 Unit/0.01 Ml (Per Unit)) 5 unit IV X1 ONE Stop: 12/10/24 23:54 Last Admin: 12/11/24 01:00 Dose: 5 unit Insulin Human Regular (Insulin Hum Regular 1 Unit/0.01 Ml (Per Unit)) 5 unit IV X1 ONE Stop: 12/11/24 14:17 Last Admin: 12/11/24 15:03 Dose: 5 unit Insulin Human Regular (Insulin Hum Regular 1 Unit/0.01 Ml (Per Unit)) 5 unit SC X1 ONE Stop: 12/12/24 09:08 Last Admin: 12/12/24 10:10 Dose: 5 unit Insulin Human Regular (Insulin Hum Regular 1 Unit/0.01 Ml (Per Unit)) 5 unit SC X1 ONE Stop: 12/13/24 08:24 Last Admin: 12/13/24 10:16 Dose: Not Given Insulin Human Regular (Insulin Hum Regular 1 Unit/0.01 Ml (Per Unit)) 5 unit IV X1 ONE Stop: 12/13/24 10:16 Last Admin: 12/13/24 10:19 Dose: 5 unit Labetalol HCl (Labetalol Inj 5 Mg/Ml Vial 20 Ml) 10 mg IVP X1 ONE Stop: 12/10/24 22:59 Last Admin: 12/10/24 23:04 Dose: 10 mg Lactulose (Lactulose Syrup 20 Gm/30 Ml Udc) 10 gm PO X1 ONE; Protocol Stop: 12/23/24 14:11 Last Admin: 12/23/24 15:25 Dose: 10 gm Lidocaine HCl (Lidocaine Hcl 1% 20 Ml Vial) 20 ml INFL X1 ONE Stop: 12/15/24 15:02 Last Admin: 12/15/24 15:01 Dose: 20 ml Lidocaine HCl (Lidocaine Inj Pf 1% 30 Ml Vial) 30 ml INFL X1 ONE Stop: 12/19/24 14:35 Last Admin: 12/19/24 14:40 Dose: 30 ml Lidocaine HCl (Lidocaine Inj Pf 1% 30 Ml Vial) 5 ml EPID X1 ONE Stop: 12/19/24 15:01 Last Admin: 12/19/24 15:00 Dose: 5 ml Lidocaine HCl (Lidocaine Inj Pf 1% 30 Ml Vial) 11 ml INFL X1 ONE Stop: 01/01/25 14:01 Last Admin: 01/01/25 14:20 Dose: 11 ml Magnesium Oxide (Magnesium Oxide 400 Mg Tablet) 400 mg PO X1 ONE Stop: 12/17/24 07:39 Last Admin: 12/17/24 11:32 Dose: 400 mg Magnesium Oxide (Magnesium Oxide 400 Mg Tablet) 400 mg PO X1 ONE Stop: 12/19/24 07:46 Last Admin: 12/19/24 08:58 Dose: 400 mg Magnesium Oxide (Magnesium Oxide 400 Mg Tablet) 400 mg PO X1 ONE Stop: 12/22/24 08:40 Last Admin: 12/22/24 10:05 Dose: 400 mg Magnesium Oxide (Magnesium Oxide 400 Mg Tablet) 400 mg PO X1 ONE Stop: 12/24/24 08:08 Last Admin: 12/24/24 09:26 Dose: Not Given Metoprolol Tartrate (Metoprolol Tartrate Inj 1 Mg/Ml Amp 5 Ml) 1 mg IVP Q5MIN PRN PRN Reason: TACHYCARDIA Stop: 12/17/24 18:50 Midazolam HCl (Midazolam Inj 1 Mg/Ml Vial 2 Ml) 1 mg IVP Q5MIN PRN PRN Reason: ANXIETY Stop: 12/17/24 18:49 Morphine Sulfate (Morphine Sulf Inj 10 Mg/Ml Vial) 1 mg IVP X1 ONE Stop: 01/02/25 23:39 Last Admin: 01/02/25 23:46 Dose: 1 mg Naloxegol (Naloxegol Oxalate 25 Mg Tablet (Non-Formulary)) 25 mg PO ACBR [facility] Stop: 01/30/25 16:14 Last Admin: 01/03/25 05:41 Dose: 25 mg Nifedipine (Nifedipine Xl 30 Mg Tabcr) 30 mg PO QDAY [facility] Stop: 01/11/25 11:59 Last Admin: 12/15/24 08:07 Dose: Not Given Nifedipine (Nifedipine Xl 30 Mg Tabcr) 60 mg PO QDAY [facility] Stop: 01/14/25 08:59 Last Admin: 12/16/24 14:08 Dose: Not Given Nifedipine (Nifedipine Xl 30 Mg Tabcr) 60 mg PO X1 ONE Stop: 12/15/24 16:31 Last Admin: 12/15/24 16:40 Dose: 60 mg Nifedipine (Nifedipine Xl 30 Mg Tabcr) 60 mg PO QDAY [facility] Stop: 01/15/25 13:59 Last Admin: 12/28/24 08:06 Dose: 60 mg Ondansetron HCl (Ondansetron Odt 4 Mg Tabrap) 4 mg PO X1 ONE; Protocol Stop: 12/10/24 19:57 Last Admin: 12/10/24 20:55 Dose: 4 mg Ondansetron HCl (Ondansetron Inj 2 Mg/Ml Inj 2 Ml) 4 mg IVP NOW ONE; Protocol Stop: 12/17/24 02:24 Last Admin: 12/17/24 02:35 Dose: 4 mg Oxycodone/Acetaminophen (Oxycodone/Apap 5/325 Tablet) 1 tab PO Q6HR PRN; Protocol PRN Reason: PAIN SCALE 4-6 (Moderate Stop: 01/01/25 09:08 Last Admin: 12/30/24 17:14 Dose: 1 tab Pantoprazole Sodium (Pantoprazole 20 Mg Tablet) 40 mg PO QDAY [facility] Stop: 01/10/25 08:59 Last Admin: 12/11/24 08:18 Dose: 40 mg Pantoprazole Sodium (Pantoprazole 40 Mg Tablet) 40 mg PO QDAY [facility] Stop: 01/10/25 08:59 Last Admin: 12/16/24 14:08 Dose: Not Given Pantoprazole Sodium (Pantoprazole 40 Mg Tablet) 40 mg PO QDAY [facility] Stop: 01/15/25 13:59 Last Admin: 12/18/24 08:42 Dose: Not Given Potassium Chloride (Potassium Chloride 10% 20 Meq/15 Ml Udc) 40 meq PO X1 ONE Stop: 12/21/24 07:08 Last Admin: 12/21/24 07:37 Dose: 40 meq Potassium Chloride (Potassium Chloride 20 Meq Tabcr) 40 meq PO X1 ONE Stop: 12/21/24 13:26 Last Admin: 12/21/24 14:24 Dose: Not Given Potassium Phos/Sodium Phos (Naph,[facility] Mbdb 1 Packet (1.5 Gm)) 1 packet PO X1 ONE Stop: 12/24/24 08:08 Last Admin: 12/24/24 09:26 Dose: Not Given Sennosides (Senna Tablet) 1 tab PO QDAY [facility]; Protocol Stop: 01/10/25 08:59 Last Admin: 12/16/24 14:08 Dose: Not Given Sevelamer Carbonate (Sevelamer Carbonate 800 Mg Tablet) 800 mg PO TIDWM [facility] Stop: 01/12/25 11:59 Sodium Polystyrene Sulfonate (Sod Polystyrene Sulfon Susp 15 Gm/60 Ml Btl) 15 gm PO X1 ONE Stop: 12/11/24 14:20 Last Admin: 12/11/24 15:01 Dose: 15 gm Sodium Polystyrene Sulfonate (Sod Polystyrene Sulfon Susp 15 Gm/60 Ml Btl) 15 gm PO X1 ONE Stop: 12/12/24 09:08 Last Admin: 12/12/24 10:09 Dose: 15 gm Sodium Polystyrene Sulfonate (Sod Polystyrene Sulfon Susp 15 Gm/60 Ml Btl) 30 gm PO X1 ONE Stop: 12/13/24 08:24 Last Admin: 12/13/24 10:06 Dose: 30 gm Tuberculin PPD (Tuberculin Ppd Inj 5 Unit/0.1 Ml Dose) 5 unit ID X1 ONE Stop: 12/13/24 08:35 Last Admin: 12/13/24 10:43 Dose: 5 unit Tuberculin PPD (Tuberculin Ppd Inj 5 Unit/0.1 Ml Dose) 5 unit ID X1 ONE Stop: 12/15/24 08:34 Last Admin: 12/15/24 08:52 Dose: Not Given
--- NOTE | 2025-01-05 08:58 | PD.RESDS ---
Planned Discharge Date 01/05/25 DS: Providers Provider Date of admission: 12/10/24 23:47 Primary care physician: Stan Cedillo MD Admitting Provider: Charly Clements MD Attending Provider on Admission: Brittany Morton DO Consults: 12/10/24 23:07 Consult to Nephrology Stat Comment: Consulting Provider: Christina Pineda 12/11/24 02:36 Referral Registered Dietitian Routine Comment: Health Equity Referral - Utilities Routine Comment: Positive screening for utility assistance needs. 12/11/24 08:00 Consult to Urology Routine Comment: Nephrolith; ARF and complicated UTI Consulting Provider: Aarti Friedman 12/16/24 13:05 Referral Discharge Planning Stat Comment: op dialysis at dialysis 12/18/24 08:56 Referral - Tableau Analyst Urgent Service Needed for Transfer: CONSUMER SAFETY INSPECTOR ONC 12/26/24 15:04 Referral - Tableau Analyst Stat Service Needed for Transfer: Interventional Radiology Addl Comments:: Anterograde Ureteral-Bladder Stent 01/02/25 16:03 Referral Physical Therapy Routine Comment: Physician Instructions: Instructions: we want patient to ambulate and work with PT to prepare her for safe discharge Attending Provider on DC: RESIDENT Rah Discharging Provider: RESIDENT Rah Hospital Course Hospital Course Hospital course: Summary: Ms. Cedillo is a 44-year-old female with past medical history of insulin-dependent type 2 diabetes, hypertension, GERD, and history of untreated valley fever who presented to the ED on 12/10/24 with left flank pain, nausea/vomiting and chills. ER: In the ED, patient presented on 12/10/24 in a state of hypertensive emergency with a blood pressure 187/83 which later increased to 210/108, heart rate of 76, respiratory rate of 18, afebrile, and satting 98% on room air. Pertinent lab findings included WBC of 9, hemoglobin 7.9, potassium of 5.4, BUN of 31, creatinine 3.9, EGFR of 14, magnesium 1.6, troponin less than 0.02, BNP of 235, and urinalysis showed hematuria and mild pyuria but no bacteria. Chest x-ray showed mild prominence of ventricles along with opacity in the right base concerning for pulmonary mass, EKG showed sinus rhythm without any concerning ST changes and CT abdomen pelvis showed a thick-walled cavitary lesion in the right middle lobe and a 22 mm pulmonary nodule in the anterior right lower lobe, numerous bilateral non-obstructing renal calculi, moderate bilateral hydronephrosis without calculi, and cystitis. Patient was admitted for hypertensive emergency requiring close monitoring as well as for acute renal failure requiring urology and nephrology consultation. It was also deemed necessary to admit her for inpatient administration of IV antibiotics for her cystitis. Hospital: During patient's hospital course, the main medical diagnoses addressed were bilateral hydronephrosis (believed to be 2/2 vesicoureteral reflux) in the setting of non-obstructive nephrolithiasis, complicated UTI, and SAPPHIRE. In terms of the bilateral hydronephrosis, ultrasound study found a distended bladder which prompted starting a Oliva catheter and consulting Urology (Dr. Friedman). In terms of complicated UTI, patient was started on IV Zosyn and had blood and urine cultures ordered. Patient is safe to discharge to home. Further discharge instructions below. #Complicated UTI/cystitis #Left flank pain #Nausea and vomiting #Hematuria #SAPPHIRE #Uncontrolled hypertension/hypertensive urgency #Nephrolithiasis (non-obstructing) #Lung cavitary lesion, old in the setting of history of valley fever status post #Insulin-dependent type 2 diabetes #GERD Status at Discharge Cognitive/Behavioral Status at Discharge: stable Functional Status at Discharge: independent ambulation Overall Status at Discharge: patient is back to baseline Total Time Spent Providing and/or Coordinating Discharge Services: at least 30 minutes of care and coordination Time Spent with Patient Time attestation: Total time spent providing and/or coordinating discharge services: Exam Vital Signs Temp Pulse Resp BP Pulse Ox O2 Del Method O2 Flow Rate 97.0 F 72 19 134/70 H 96 Room Air 4 01/05/25 08:00 01/05/25 08:00 01/05/25 08:00 01/05/25 08:00 01/05/25 08:00 01/05/25 08:00 01/01/25 14:43 Discharge Plan Plan Patient Disposition: HOME (Self Care) Patient condition on transfer: Stable Prescriptions/Referrals Prescriptions/Med Rec: New carvedilol 25 mg tablet 25 mg PO BIDWM 30 Days Qty: 30 0RF famotidine 20 mg Tablet 20 mg PO QDAY 30 Days Qty: 30 0RF ferrous sulfate 325 mg (65 mg iron) Tablet,Delayed Release (Dr/Ec) 325 mg PO DAILY 30 Days Qty: 30 0RF hydralazine 50 mg tablet 50 mg PO TID 30 Days Qty: 90 0RF hydrocodone-acetaminophen 10-325 mg Tablet 1 tab PO Q6HR MDD 4 PRN (Reason: Moderate-Severe Pain (4-10)) 7 Days Qty: 30 0RF hydroxyzine HCl 25 mg Tablet 25 mg PO HS 30 Days Qty: 30 0RF insulin glargine [Lantus Solostar U-100 Insulin] 100 unit/mL (3 mL) insulin pen 18 unit subcut QPM Qty: 15 0RF insulin lispro [Admelog SoloStar U-100 Insulin] 100 unit/mL insulin pen See Protocol subcut USEASDIRECTD Qty: 15 0RF Protocol: Insulin Corrective High-Dose Regimen Condition: Fingerstick Blood Glucose Dose/Route: Insulin Units Condition: 141-180 mg/dl Dose/Route: 6 units/SQ Condition: 181-220 mg/dl Dose/Route: 8 units/SQ Condition: 221-260 mg/dl Dose/Route: 10 units/SQ Condition: 261-300 mg/dl Dose/Route: 12 units/SQ Condition: 301-350 mg/dl Dose/Route: 14 units/SQ Condition: 351-400 mg/dl Dose/Route: 16 units/SQ Condition: greater than 400 mg/dl Dose/Route: 18 units/SQ (DME) pen needle, diabetic [CareFine Pen Needle] 31 gauge x 1/4 needle See Rx Instructions .Route Qty: 100 0RF Rx Instructions: As directed Continued omeprazole 40 mg capsule,delayed release(DR/EC) 40 mg PO QDAY (DME) pen needle, diabetic [TRUEplus Pen Needle] 31 gauge x 1/4 needle buspirone 10 mg tablet 10 mg PO HS Patient Comments: TAKE 1 TABLET BY MOUTH ONCE DAILY AT BEDTIME (DME) Accu-Chek Guide test strips Strip Patient Comments: USE 1 STRIP TO CHECK GLUCOSE THREE TIMES DAILY (DME) lancets [Accu-Chek Softclix Lancets] [facility] [place] Patient Comments: USE 1 TO CHECK GLUCOSE THREE TIMES DAILY insulin lispro 100 unit/mL insulin pen 5 unit SUBCUT TID Patient Comments: INJECT 5 UNITS SUBCUTANEOUSLY THREE TIMES DAILY BEFORE MEALS Discontinued losartan 100 mg tablet 100 mg PO QDAY Patient Comments: TAKE 1 TABLET BY MOUTH ONCE DAILY metoclopramide HCl 10 mg tablet 10 mg PO QDAY meclizine 25 mg tablet,chewable 25 mg PO QDAY insulin glargine-yfgn [Semglee(insulin glarg-yfgn)Pen] 100 unit/mL (3 mL) insulin pen 30 unit SUBCUT QDAY Patient Comments: INJECT 30 UNITS SUBCUTANEOUSLY ONCE DAILY sumatriptan succinate 50 mg tablet 50 mg PO QDAY naproxen 500 mg tablet 500 mg PO Q12H PRN (Reason: pain) Patient Comments: TAKE 1 TABLET BY MOUTH EVERY 12 HOURS NEEDED WITH FOOD OR MILK ibuprofen 600 mg tablet 600 mg PO Q8H PRN (Reason: pain) Qty: 20 0RF Referrals: Stan Cedillo MD [Primary Care Provider] - Patient/Caregiver Discharge Instructions Other Discharge Activity Instructions:: Patient to call and make appt with Dr. Forbes (urology) at the [facility], [address] [place] [address]. Number [phone]. Referral to the clinic has been sent. Education Materials: Preventing Surgical Site Infections Print Language: Scottish Stand Alone Forms: Nina Award Info., Patient Portal Info Letter Discharge Order Discharge Orders: Discharge (Routine); Ordered 01/05/25 Ordered By: Preet Schwab
--- NOTE | 2025-01-05 08:58 | PC.SS ---
Follow up note: SS followed up with Liane from [facility] who explained they do not have chair time for pt at this time. Karlee will contact SS once chair time has been provided.
[2025-01-05] MEDS: INSULIN LISPRO (AdmeLOG) 1 UNIT/0.01 ML UNIT SC (11:37)
--- NOTE | 2025-01-05 11:44 | ESPR_ITS ---
Documentation for date of: 01/05/25 Subjective Subjective Interval history: Ms. Cedillo is a 44-year-old female with past medical history of insulin- dependent type 2 diabetes, hypertension, GERD, and history of untreated valley fever who presented to the ED on 12/10 with left flank pain, nausea/vomiting and chills. Patient states that the chills started roughly an hour ago but that she has been having progressively worsening left flank pain radiating to her back. Patient denies having any dysuria but does state that she has been having lilia hematuria for several days. Patient denies having any fevers but she does state that she has been having chills. Patient also complains of suprapubic pain and mentions that she feels pain near her ovaries. Patient has not seen a PCP regarding the symptoms but she was seen several weeks ago for GERD-like symptoms and was given medications. Patient otherwise denies having any concerning symptoms such as chest pain, dizziness, shortness of breath. In the ED, patient presented with hypertensive emergency with a blood pressure 187/83, other vitals wnl. Pertinent lab findings included WBC of 9, hemoglobin 7.9, potassium of 5.4, BUN of 31, creatinine 3.9, EGFR of 14, magnesium 1.6, troponin less than 0.02, BNP of 235, urinalysis shows hematuria and mild pyuria but no bacteria. Chest x-ray shows mild prominence of ventricles along with opacity in the right base concerning for pulmonary mass, EKG shows sinus rhythm without any concerning ST changes and CT abdomen pelvis shows a thick-walled cavitary lesion in the right middle lobe and a 22 mm pulmonary nodule in the anterior right lower lobe, numerous bilateral nonobstructing renal calculi, moderate bilateral hydronephrosis without calculi and cystitis. Patient will be admitted for hypertensive emergency requiring close monitoring along with acute renal failure requiring urology and nephrology consultation and IV antibiotics for cystitis Upon seeing the patient currently, she is on Mg Sulfate, Ceftriaxone, Carvedilol 6.25 mg, and maintenance IV fluids with a slightly improved blood pressure of 168/88 with the rest of vitals wnl. Patient states she is currently feeling much better now. States that she still has some nausea, L flank pain radiating to back and some dizziness when she stands up for too long. Patient states she has noticed blood in her urine today and ever since March. Patient endorses having bowel movements. Patient denies fever, headache, chest pain, shortness of breath, vomiting. Interval History 12/29/2024: Patient seen and examined at bedside. She is sitting upright at the edge of the bed crying due to pain in RLQ that extends towards R groin and leg, likely 2/2 to bladder mass.patient states that pain is not improved with oxycodone, but dilauded helps. Blood sugar 131, BP 143/80, WBC 12.8, Hgb stable, Bilateral nephrostomy tubes, R tube is not draining, Left tube is draining clear yellow urine 900cc. Cheng catheter with minimal output Hold HD, remove HD catheter, pain control, pending transfer to tertiary care center for anterograde stents and bladder mass removal. 12/30/24: Patient seen and examined at bedside. She is laying in bed and continues to report RLQ abdominal pain that extends towards R groin and leg. pt is s/p BL nephrogram on 12/29 to flush the nephrostomy tubes given R tube not draining. today there is minimal drainage from R tube, L continues to have good output 1535. HD cath remains in place, Pending transfer (if transfer for IR at higher care facility is rejected, will persue transfer for urology) no HD today, Cr stable 3.3 from 3.2. 12/31/2024: Patient seen and examined at bedside. She is laying in bed and continues to report RLQ abdominal pain that extends towards R groin and leg. pt getting regular Dilaudid. D/c cheng if daily output <100, [facility] [place] [place] shower. primary team will discuss with Dr. Apnote about replacing R nephrostomy tube given minimal output. L continues to have good output. HD cath remains in place. Pt transfer for IR has heen denied at 9 institutions due to insurance not being accepted or bed availability, Cr 3.4 from 3.3, NO HD today. Plan for initating urology transfer. 01/01/2025: Patient seen and examined at bedside. She is laying flat in bed with blankets, she reports that she is cold. She continues to report RLQ abdominal pain that extends towards the R groin and leg. Per primary team, plan to replace R nephrostomy tube given negligible output. Left nephrostomy tube continues to have good output. Cr is climbing steadily, 3.6 from 3.4, Plan to hold HD. Pt transfer for IR has been rejected at 11 institutions. plan for initiating urology transfer. 01/02/2025: Patient seen and examined while in HD. She was laying comfortably on her Left side. She states that the RLQ pain is well controlled right now. pt was unable to replace R nephrostomy tube. L nephrostomy tube remains in place with good output, cheng catheter in place. Cr 4.2 3.6, BUN 35 from 30. HD today. 01/03/2025: No overnight events. Patient seen and examined at bedside; they report feeling generally well today with no new complaints or concerns. Labs notable for an increase in WBC from 15.7 to 16.9, creatinine increase from 4.2 to 4.5, eGFR reduction from 13 to 12, and alkaline phosphatase increase from 204 to 216. Plan to d/c on Sunday with possible transfer to Urology at [facility]. 01/04/2025: Patient seen and examined. She was sitting upright in chair looking comfortable. no new complaints or concerns. cheng was d/c, L nephrostomy tube with 250 cc output, BUN 28 from 22, Cr 5.9 from 4.5. no HD today, plan for HD tomorrow prior to discharge. d/c IV pain meds, pending discharge tomorrow. per primary team, she will follow up with Dr. Shana Jones, in [facility] and will have stat referal to outpatient Urology for placement of antegrade stents. 01/05/2025: No overnight events. Patient seen and examined at bedside; they report feeling generally well today with no new complaints or concerns. Labs significant for Hgb 7.7, Na 133, K 3.8, Cl 94, BUN 32 from 28, creatinine 6.3 from 5.9, alkaline phosphatase 145 from 162. Patient is planned to be discharged today after they receive HD. Central line order will be continued. Patient is to follow up with outpatient dialysis 3x per week and Dr. Shana Jones in the [facility]. They will be referred to Urology at [facility] for placement of anterograde stents. Exam Vital Signs Temp Pulse Resp BP Pulse Ox O2 Del Method O2 Flow Rate 97.0 F 72 19 134/70 H 96 Room Air 4 08/11/25 08:00 01/05/25 08:00 01/05/25 08:00 01/05/25 08:00 01/05/25 08:00 01/05/25 08:00 01/01/25 14:43 Narrative Exam Physical Exam: General: A/O x3, no acute distress, well-nourished, well-developed. Skin: Right IJ permanent catheter noted. Left nephrostomy tubes in place with clear urine drainage. Warm, dry, intact, no obvious rash. Head: Normocephalic, atraumatic. Eyes: PERRL, EOMI. Anicteric, vision grossly intact. Cardiovascular: well perfused on visual inspection Respiratory: normal work of breathing, No accessory muscle use. Gastrointestinal: c/o Tenderness to palpation of RLQ, well controlled on current pain reg. Extremities: Symmetrical, no significant deformities. No edema, no cyanosis, no clubbing. Neuro: No focal deficits observed. Conversant, moving all extremities. No overt cerebellar signs/incoordination. Psychiatric: Cooperative, appropriate affect. Objective Labs 01/05/25 05:39 01/05/25 05:39 Labs: Laboratory Results - last 24 hr 01/05/25 05:39 WBC 8.8 RBC 3.06 L Hgb 7.7 L Hct 24.3 L MCV 79 L MCH 25.2 MCHC 31.7 RDW Std Deviation 42.3 Plt Count 478 H D Neut % (Auto) 65 Lymph % (Auto) 21 [place] % (Auto) 9 Eos % (Auto) 4 Baso % (Auto) 1 Neut # (Auto) 5.7 Lymph # (Auto) 1.9 [place] # (Auto) 0.8 Eos # (Auto) 0.3 Baso # (Auto) 0.1 Immature Gran # (Auto) 0.06 H Absolute Nucleated RBC 0.00 Immature Gran % 1 H Nucleated RBC % 0 Sodium 133 L Potassium 3.8 D Chloride 94 L Carbon Dioxide 26.9 Anion Gap 12 BUN 32 H Creatinine 6.3 H* Estim Creat Clear Calc 11.4 L eGFR 8 L* BUN/Creatinine Ratio 5 L Glucose 146 H Calculated Osmolality 276 Calcium 9.4 Corrected Calcium 9.4 Total Bilirubin < 0.2 L AST 11 ALT 9 L Alkaline Phosphatase 145 H Total Protein 7.0 Albumin 4.0 Globulin 3.0 Albumin/Globulin Ratio 1.3 Quality Measures Quality Measures VTE prophylaxis Assessment & Plan Assessment Current Active Medications: Generic Name Dose Route Start Last Admin Trade Name Freq PRN Reason Stop Dose Admin Acetaminophen 650 mg 12/19/24 18:23 01/02/25 05:27 Acetaminophen 325 Mg Tablet PO 01/09/25 23:47 650 mg Q6H PRN Administration PAIN 1-6 (mild-mod Protocol Hydrocodone Bitart/Acetaminophen 1 tab 01/02/25 15:00 01/05/25 11:37 Hydrocodone/Apap 10/325 Tab PO 01/07/25 14:59 1 tab Q6HR CLEMENTINE Administration Buspirone HCl 10 mg 12/11/24 21:00 01/04/25 21:38 Buspirone Hcl 5 Mg Tablet PO 01/10/25 20:59 10 mg HS CLEMENTINE Administration Carvedilol 25 mg 12/20/24 17:30 01/05/25 08:19 Carvedilol 12.5 Mg Tablet PO 01/19/25 17:29 Not Given BIDWM CLEMENTINE Dextrose 25 ml 12/10/24 23:51 Dextrose 50%-Water Inj 50 Ml Syringe IV 01/09/25 23:50 Q15MIN PRN BG 50-70 responsive npo pt Dextrose 50 ml 12/10/24 23:51 12/13/24 11:33 Dextrose 50%-Water Inj 50 Ml Syringe IV 01/09/25 23:50 50 ml Q15MIN PRN Administration BG <50 OR BG <70 & pt unresponsive Famotidine 20 mg 12/19/24 09:00 01/05/25 08:19 Famotidine 20 Mg Tablet PO 01/18/25 08:59 Not Given QDAY CLEMENTINE Ferrous Sulfate 325 mg 12/29/24 09:00 01/05/25 08:20 Ferrous Sulf 325 Mg Tablet PO 01/28/25 08:59 Not Given DAILY CLEMENTINE Glucagon 1 mg 12/10/24 23:51 Glucagon Inj 1 Mg Vial IM Q15MIN PRN BG <70, and no IV access Heparin Sodium (Porcine) 3,800 unit 01/01/25 08:24 01/02/25 12:37 Heparin Sod Inj 1000 Unit/Ml Vial 10 Ml INDWELLCAT 01/15/25 08:23 3,800 unit X1 PRN Administration DIALYSIS Heparin Sodium (Porcine) 5,000 unit 01/03/25 21:00 01/05/25 08:20 Heparin Sod Inj 5000 Unit/Ml Vial SC 01/17/25 20:59 Not Given Q12HR CLEMENTINE Hydralazine HCl 10 mg 12/19/24 09:12 Hydralazine Inj 20 Mg/Ml Vial IVP 01/18/25 09:11 Q6HR PRN SBP > 180 Hydralazine HCl 50 mg 12/20/24 14:00 01/05/25 06:04 Hydralazine Hcl 25 Mg Tablet PO 01/19/25 13:59 50 mg TID CLEMENTINE Administration Hydroxyzine HCl 25 mg 12/13/24 21:00 01/04/25 21:38 Hydroxyzine Hcl 25 Mg Tablet PO 01/12/25 20:59 25 mg HS CLEMENTINE Administration Insulin Glargine 18 unit 12/15/24 21:00 01/04/25 21:39 Insulin Glargine (Lantus) 5 Unit/0.05 Ml (Per 5 Units) SC 01/14/25 20:59 18 unit HS CLEMENTINE Administration Insulin Human Lispro 0 unit 01/01/25 21:00 01/05/25 11:37 Insulin Lispro (Admelog) 1 Unit/0.01 Ml Unit SC 01/31/25 20:59 1 unit ACHS CLEMENTINE Administration Protocol Ondansetron HCl 4 mg 12/10/24 23:48 01/03/25 21:14 Ondansetron Inj 2 Mg/Ml Inj 2 Ml IVP 01/09/25 23:47 4 mg Q6H PRN Administration NAUSEA OR VOMITING Protocol Sennosides 1 tab 12/16/24 14:00 01/05/25 08:20 Senna Tablet PO 01/15/25 13:59 Not Given QDAY [facility] Protocol Sodium Chloride 3 ml 12/11/24 14:16 12/13/24 08:41 Sodium Chloride Rt Katherine 0.9% 3 Ml Nebu INH 01/10/25 14:15 3 ml PRN PRN Administration SOLN Plan Ms. Cedillo is a 44-year-old female with past medical history of insulin- dependent type 2 diabetes, hypertension, GERD, and history of untreated valley fever who presented to the ED on 12/10 with left flank pain, nausea/vomiting and chills. Patient was admitted for hypertensive emergency requiring close monitoring along with acute renal failure requiring urology and nephrology consultation and IV antibiotics for cystitis. Patient denied transfer for IR anterograde BL nephrostomy stents from 13 institutions. Patient is planned to be discharged today after they receive HD. Central line order will be continued. Patient is to follow up with outpatient dialysis 3x per week and Dr. Shana Jones in the [facility]. They will be referred to Urology at [facility] for placement of anterograde stents. #Acute kidney injury --biopsy-proven ATN superimposed on obstructive uropathy. 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 CT showed numerous b/l nonobstructing renal calculi, mod b/l hydronephrosis wo ureteral calculi, cystitis pattern Patient received a kidney biopsy which showed ATN/AIN and underlying diabetes/hypertensive nephrosclerosis Bilateral percutaneous nephrostomy tube placed, L draining well, R with minimal drainage likely 2/2 debris . 12/24: Bladder bx and limited bladder resection (large mass occupying both ureteral orifice), L nephrostogram done showing L ureter stricture. s/p BL nephrostogram to flush R nephrostomy tube, R tube continues to have negligible output 01/02 unable to replace R nephrostomy tube, Cr inc 4.2 from 3.6 BUN 35, received HD 01/04 Cr inc 5.9 from 4.5, BUN 28 from 22/ K wnl HD sessions: 12/20, 01/02, 01/05 (today) PLAN - HD today, discharge after - plan for stat outpatient referral to [facility] for Urology -Needs outpatient tertiary care center evaluation for large bladder tumor, B ladder mass is benign, will need anterograde stents -denied transfer for IR at 13 institutions given insurance and low bed availability -Strict I/O's -Avoid nephrotoxic agents -Renally dose medications -Replete electrolytes as needed and follow-up with morning labs -pain management: per primary team, transition to PO pain meds pending discharge. #Acute urinary retention- cheng was removed. #Bilateral hydronephrosis #Leukocytosis, 15 from 11 #Cystitis #Complicated UTI, nephrolithiasis #Hematuria #Hypertensive emergency, improving--in fact on the lower side #Hypertension #Insulin-dependent type 2 diabetes #GERD -Managed per primary team Plan discussed with nephrology attending Dr. Miriam Ibrahim, DO Internal Medicine PGY-1 Attending Provider Attestation/Addendum Patient seen and examined with resident physician . Note reviewed, agree with findings and recommendations. Patient with bilateral nephrostomy tubes for obstructive uropathy. Left tube seems to be making good urine. Right tube blocked. Was adjusted thrice already. Significant debris noted. Cheng catheter was removed. Still having lower pelvic pain and back pain. Dilaudid IV was transition to p.o. [place]. Pain seems to be tad better. Spoke to Dr. Vidal regarding transfer-he recommended outpatient IR follow-up if patient stable. [facility] IR seems to be giving her outpatient schedule time. Apparently 13 hospitals declined the transfer. Team has been diligently working on transfer for the last 1 week. Patient currently seen on dialysis. Tolerating dialysis without any problems. Hemodialysis for 3 hours, 2K, ultrafiltration 2-3 L, Epogen 6000, no heparin ordered. Plan of care discussed with the dialysis nurse. Please see dialysis flowsheet for further details. Spoke to primary team-hopefully after dialysis can be discharged for outpatient follow-up at [facility]. In the interim she will get twice weekly dialysis. Had a long conversation with patient and the answered all her questions.
[2025-01-05] MEDS: ONDANSETRON INJ 2 MG/ML INJ 2 ML 4 MG IVP (12:51)
--- NOTE | 2025-01-05 13:38 | ESDS_ITS ---
<Statement entered by Joyce Jane MD - 01/08/25 09:12> I reviewed above note and agree with findings and plans. I have also personally examined the patient with medicine team and went over assessment and plan with medical team including manager internet and resident physician. Planned Discharge Date 01/05/25 DS: Providers Provider Date of admission: 12/10/24 23:47 Primary care physician: Stan Cedillo MD Admitting Provider: Charly Clements MD Attending Provider on Admission: Joyce Jane MD Consults: 12/10/24 23:07 Consult to Nephrology Stat Comment: Consulting Provider: Christina Pineda 12/11/24 02:36 Referral Registered Dietitian Routine Comment: Health Equity Referral - Utilities Routine Comment: Positive screening for utility assistance needs. 12/11/24 08:00 Consult to Urology Routine Comment: Nephrolith; ARF and complicated UTI Consulting Provider: Aarti Friedman 12/16/24 13:05 Referral Discharge Planning Stat Comment: op dialysis at dialysis 12/18/24 08:56 Referral - Surgical Services Assistant Urgent Service Needed for Transfer: MAIL MANAGER ONC 12/26/24 15:04 Referral - Surgical Services Assistant Stat Service Needed for Transfer: Interventional Radiology Addl Comments:: Anterograde Ureteral-Bladder Stent 01/02/25 16:03 Referral Physical Therapy Routine Comment: Physician Instructions: Instructions: we want patient to ambulate and work with PT to prepare her for safe discharge Attending Provider on DC: Joyce Jane MD Discharging Provider: Joyce Jane MD Anticipated date of discharge: 01/05/25 DS: Diagnosis Problem List Completed Was Problem List Reviewed/Reconciled?: Yes Hospital Course Hospital Course Hospital course: Hospital course: Ms. 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 Patient had MRI abdomen pelvis which showed mild to moderate bilateral hydronephrosis with dilated ureters, patient underwent nephrostomy tube placement bilaterally by interventional radiology. Patient's kidney function was poor requiring dialysis catheter placement, initially patient's renal function improved with nephrostomy however patient had a complicated hospital course with significant obstruction of the right nephrostomy tube which was unable to be replaced by interventional radiology, transfer was attempted to higher level of care for interventional radiology or urology service however patient was denied from more than 10 tertiary care centers. Eventually after discussion with training assistant we discussed with patient alternative option of being possibly discharged on oral pain medication with left nephrostomy tube and hemodialysis twice a week to her home, patient to follow-up outpatient and follow-up with Dr. Forbes outpatient for further urological needs, patient to follow-up outpatient with nephrology and primary care physician as well. Patient agreeable to the plan for outpatient follow-up, further plan is to discharge patient home as planned, patient to follow-up outpatient closely. Patient is stable for discharge. Discharge diagnosis: #Urothelial papilloma with chronic cystitis #Bladder mass, non-malignant #Bilateral Hydronephrosis s/p nephrostomy tube placement #Status post nephrostogram #Nonfunctional right nephrostomy tube secondary to tumor burden, status post removal #Acute renal failure secondary to obstructive uropathy #New onset dialysis, permanent dialysis catheter insertion 12/15 #Acute urinary retention #Bilateral hydronephrosis #Complicated UTI, nephrolithiasis #Hematuria #Hypertensive emergency #Hypertension #Insulin-dependent diabetes mellitus type 2 #Valley fever, by history #GERD Case discussed with Attending Physician Dr. Buck Jones MD Internal Medicine PGY-2 Disclaimer: This note was dictated by speech recognition. Minor errors in field ring assembler may be present due to voice recognition software. Status at Discharge Functional status at discharge: independent ambulation Overall status at discharge: patient is not back to baseline Time Spent with Patient Time attestation: Total time spent providing and/or coordinating discharge services: Time spent: Greater than 30 minutes Exam Vital Signs Temp Pulse Resp BP Pulse Ox O2 Del Method O2 Flow Rate 98 F 65 18 159/93 H 95 Room Air 4 01/05/25 12:58 01/05/25 13:30 01/05/25 12:58 01/05/25 13:30 01/05/25 12:58 01/05/25 12:00 01/01/25 14:43 Narrative Exam Physical Exam: General: A/O x3, no acute distress, well-nourished, well-developed. Skin: Right IJ permanent catheter noted. Left nephrostomy tubes in place with clear urine drainage. Warm, dry, intact, no obvious rash. Head: Normocephalic, atraumatic. Eyes: PERRL, EOMI. Anicteric, vision grossly intact. Cardiovascular: well perfused on visual inspection Respiratory: normal work of breathing, No accessory muscle use. Gastrointestinal: c/o Tenderness to palpation of RLQ, well controlled on current pain reg. Extremities: Symmetrical, no significant deformities. No edema, no cyanosis, no clubbing. Neuro: No focal deficits observed. Conversant, moving all extremities. No overt cerebellar signs/incoordination. Psychiatric: Cooperative, appropriate affect. Discharge Plan Plan Patient Disposition: HOME (Self Care) Patient condition on transfer: Stable Care Plan Goals: -Follow up outpatient for Urology Follow up -Call and make appt with Dr. Forbes (urology) at the [facility], [address] [place] [address]. Number [phone]. Referral to the clinic has been sent. -Obtain Referral for Nephrology Follow up, Dialysis per training assistant. -Use Medications as below. -Follow-up in [facility] in 1 to 2 weeks. Call [phone] to make an appointment Address: [facility], [address], [address], [place], [address] -Return to ED if symptoms return or worsen. Dialysis chair time is Sunday and Sunday at 6:10. First session is Sunday at 5:45am. has provided pt with the Community Resource List which contains dialysis chair time, address, and phone#. [facility] Address: [address] [facility]. [address]. Phone number [phone] Prescriptions/Referrals Prescriptions/Med Rec: New carvedilol 25 mg tablet 25 mg PO BIDWM 30 Days Qty: 30 0RF famotidine 20 mg Tablet 20 mg PO QDAY 30 Days Qty: 30 0RF ferrous sulfate 325 mg (65 mg iron) Tablet,Delayed Release (Dr/Ec) 325 mg PO DAILY 30 Days Qty: 30 0RF hydralazine 50 mg tablet 50 mg PO TID 30 Days Qty: 90 0RF hydrocodone-acetaminophen 10-325 mg Tablet 1 tab PO Q6HR MDD 4 PRN (Reason: Moderate-Severe Pain (4-10)) 7 Days Qty: 30 0RF hydroxyzine HCl 25 mg Tablet 25 mg PO HS 30 Days Qty: 30 0RF insulin glargine [Lantus Solostar U-100 Insulin] 100 unit/mL (3 mL) insulin pen 18 unit subcut QPM Qty: 15 0RF insulin lispro [Admelog SoloStar U-100 Insulin] 100 unit/mL insulin pen See Protocol subcut USEASDIRECTD Qty: 15 0RF Protocol: Insulin Corrective High-Dose Regimen Condition: Fingerstick Blood Glucose Dose/Route: Insulin Units Condition: 141-180 mg/dl Dose/Route: 6 units/SQ Condition: 181-220 mg/dl Dose/Route: 8 units/SQ Condition: 221-260 mg/dl Dose/Route: 10 units/SQ Condition: 261-300 mg/dl Dose/Route: 12 units/SQ Condition: 301-350 mg/dl Dose/Route: 14 units/SQ Condition: 351-400 mg/dl Dose/Route: 16 units/SQ Condition: greater than 400 mg/dl Dose/Route: 18 units/SQ (DME) pen needle, diabetic [CareFine Pen Needle] 31 gauge x 1/4 needle See Rx Instructions .Route Qty: 100 0RF Rx Instructions: As directed Continued omeprazole 40 mg capsule,delayed release(DR/EC) 40 mg PO QDAY (DME) pen needle, diabetic [TRUEplus Pen Needle] 31 gauge x 1/4 needle buspirone 10 mg tablet 10 mg PO HS Patient Comments: TAKE 1 TABLET BY MOUTH ONCE DAILY AT BEDTIME (DME) Accu-Chek Guide test strips Strip Patient Comments: USE 1 STRIP TO CHECK GLUCOSE THREE TIMES DAILY (DME) lancets [Accu-Chek Softclix Lancets] Misc Patient Comments: USE 1 TO CHECK GLUCOSE THREE TIMES DAILY insulin lispro 100 unit/mL insulin pen 5 unit SUBCUT TID Patient Comments: INJECT 5 UNITS SUBCUTANEOUSLY THREE TIMES DAILY BEFORE MEALS Discontinued losartan 100 mg tablet 100 mg PO QDAY Patient Comments: TAKE 1 TABLET BY MOUTH ONCE DAILY metoclopramide HCl 10 mg tablet 10 mg PO QDAY meclizine 25 mg tablet,chewable 25 mg PO QDAY insulin glargine-yfgn [Semglee(insulin glarg-yfgn)Pen] 100 unit/mL (3 mL) i nsulin pen 30 unit SUBCUT QDAY Patient Comments: INJECT 30 UNITS SUBCUTANEOUSLY ONCE DAILY sumatriptan succinate 50 mg tablet 50 mg PO QDAY naproxen 500 mg tablet 500 mg PO Q12H PRN (Reason: pain) Patient Comments: TAKE 1 TABLET BY MOUTH EVERY 12 HOURS NEEDED WITH FOOD OR MILK ibuprofen 600 mg tablet 600 mg PO Q8H PRN (Reason: pain) Qty: 20 0RF Referrals: Stan Cedillo MD [Primary Care Provider] - Shana Jones MD [Resident] - Christina Pineda MD [Physician] - Patient/Caregiver Discharge Instructions Other Discharge Activity Instructions:: Patient to call and make appt with Dr. Forbes (urology) at the [facility], [address] [place] [address]. Number [phone]. Referral to the clinic has been sent. Education Materials: Kidney Failure Healthcare Team, Coping with Kidney Failure, Preventing Surgical Site Infections Print Language: Slovak Stand Alone Forms: Nina Award Info., Patient Portal Info Letter Discharge Order Discharge Orders: Discharge (Routine); Ordered 01/05/25 Ordered By: Preet Schwab Quality Discharge Quality Measures none
--- NOTE | 2025-01-05 14:59 | PC.SS ---
SS has received patient's dialysis chair time from Jen at [facility]. Dialysis chair time is Sunday and Sunday at 6:10. First session is Sunday at 5:45am. SS has provided pt with the Community Resource List which contains dialysis chair time, address, and phone#. SS has informed patient's .
[2025-01-05] MEDS: HEPARIN SOD INJ 1000 UNIT/ML VIAL 10 ML 3800 UNIT INDWELLCAT (16:01)
[2025-01-05] MEDS: EPOETIN ALFA-EPBX INJ 10,000 UNIT/ML VIAL (NON-ESRD) 10000 UNIT SC (16:07)
--- NOTE | 2025-01-06 12:21 | PC.CM ---
Addendum entered by Raquel Varghese RN 01/06/25 12:36: I called patient's daughter and Sharon at [phone] and I provided her with the information. Original Note: I received a call from Almita and she states patients family member is calling about an outpatient appointment made by Loulou at a Urologist clinic in [place] with Dr. Narvaez. I reviewed notes and I see loulou spoke to [facility] and they were going to fax referal to Dr. To office. I called Aguilar today and she reviewe patient's information and she states the referal was sent on the . She states she will resend the referral because it has been a while ago it was sent.
== END 2025-01-05 17:41 | disposition home or self-care (01) | DRG 446 ==
LOC: SERX 23:19 → SERHOLD 12-11 00:06 → S3SX 12-11 02:04
PROVIDERS: Internal Medicine; Nurse Practitioner Primary Care; Radiology Diagnostic Radiology; Student in an Organized Health Care Education/Training Program; Urology; Admitting Provider Student in an Organized Health Care Education/Training Program; Emergency Provider Emergency Medicine; PCP Family Medicine; Visit Provider Internal Medicine
PROC: 0TJB8ZZ Inspection of Bladder, Via Natural or Artificial Opening Endoscopic (ICD-10-PCS; CPT 52000; principal; 2024-12-17 14:15)
PROC: 0TBB8ZZ Excision of Bladder, Via Natural or Artificial Opening Endoscopic (ICD-10-PCS; principal; 2024-12-24 15:15)
DX: D41.4 Neoplasm of uncertain behavior of bladder (principal); N13.6 Pyonephrosis; K21.9 Gastro-esophageal reflux disease without esophagitis; I16.1 Hypertensive emergency; N20.0 Calculus of kidney; E87.5 Hyperkalemia; E11.22 Type 2 diabetes mellitus with diabetic chronic kidney disease; E87.20 Acidosis, unspecified; F41.9 Anxiety disorder, unspecified; I12.9 Hypertensive chronic kidney disease with stage 1 through stage 4 chronic kidney disease, or unspecified chronic kidney disease; N17.0 Acute kidney failure with tubular necrosis; N18.9 Chronic kidney disease, unspecified; D63.1 Anemia in chronic kidney disease; N30.21 Other chronic cystitis with hematuria; N31.9 Neuromuscular dysfunction of bladder, unspecified; R33.8 Other retention of urine; T83.012A Breakdown (mechanical) of nephrostomy catheter, initial encounter; Y73.2 Prosthetic and other implants, materials and accessory gastroenterology and urology devices associated with adverse incidents; Z79.4 Long term (current) use of insulin; Z79.899 Other long term (current) drug therapy; N13.70 Vesicoureteral-reflux, unspecified; Z85.41 Personal history of malignant neoplasm of cervix uteri
CPT/HCPCS: 36415; 71046; 72195; 74176; 74181; 74420; 74425; 75984; 76770; 76937; 76998; 77001; 77012; 78708; 80048; 80053; 80061; 80069; 80074; 80307; 81001; 81025; 82436; 82570; 82728; 82784; 83036; 83540; 83550; 83605; 83615; 83735; 83880; 84100; 84133; 84156; 84300; 84484; 84703; 85014; 85018; 85025; 85046; 85610; 85730; 86021; 86036; 86038; 86160; 86580; 86703; 86850; 86900; 86901; 86923; 87040; 87086; 93005; 93225; 94640; 94644; 94664; 96361; 96365; 96375; 97162; 99152; A4217; A4649; A9562; C1729; C1750; C1769; C1894; J0360; J0696; J1100; J1171; J1580; J1642; J1643; J1644; J1815; J1938; J2250; J2270; J2405; J2543; J2704; J2710; J2765; J3010; J3475; J3480; J3490; J7030; J7050; J7999; P9016; Q0139; Q0162; Q5105; Q5106; Q9958; A9270; J1596; J1805; J1920

== ENCOUNTER 2025-01-10 09:44 | Emergency (ER) | payer MEDICAID, SELFPAY ==
--- NOTE | 2025-01-10 10:00 | EDNOTE_ITS ---
<Statement entered by Eulalia Johnson MD - 01/26/25 06:32> I, Eulalia Johnson MD, have reviewed the history, exam, and assessment of the patient. I have evaluated the patient independently and agree with the plan of care documented by [ ]. All diagnostic studies were reviewed and discussed. I confirm the diagnosis as documented by the Resident. I was present during the Medical Decision Making for this patient. The patient's plan of care was created between myself and the Resident and consistent with our discussion of the patient's case. ED General RME/HPI General Chief complaint: General Adult/Misc Complain Stated complaint: No BM for 10 days Time Seen by Provider: 01/10/25 09:54 Arrival date/time: 01/10/25 09:44 RME / HPI RME / HPI narrative: 44-year-old female with past medical history of recent CKD currently on HD, urothelial papilloma with chronic cystitis, bilateral hydronephrosis s/p nephrostomy tubes, insulin-dependent type 2 diabetes mellitus, hypertension, gas troesophageal reflux disease, and history of valley fever sent to the ED with chief complaints of abdominal pain, constipation, and inability to pass urine and has noticed some blood when she wipes when she tries to urinate. Patient does take [place] for pain 2/2 tumor. Patient also complain of having some chills nausea, but denies having any chest pain, shortness of breath, vomiting, fevers, headaches, or changes in mental status. Denies any smoking, drugs, alcohol Related Data Home Medications ?Medication ?Instructions ?Recorded ?Confirmed blood sugar diagnostic (Accu-Chek 12/11/24 12/11/24 Guide test strips) buspirone 10 mg tablet 10 mg PO HS 12/11/24 5 insulin lispro 100 unit/mL 5 unit subcut TID 12/11/24 12/11/24 subcutaneous pen lancets (Accu-Chek Softclix 12/11/24 12/11/24 Lancets) omeprazole 40 mg capsule,delayed 40 mg PO QDAY 5 12/11/24 release pen needle, diabetic 31 gauge x 12/11/24 12/11/2405/31 (TRUEplus Pen Needle) Previous Rx's ?Medication ?Instructions ?Recorded carvedilol 25 mg tablet 25 mg PO BIDWM 30 days #30 t abs 01/05/25 famotidine 20 mg tablet 20 mg PO QDAY 30 days #30 ta bs 01/05/25 ferrous sulfate 325 mg (65 mg 325 mg PO DAILY 30 days #30 tabs 01/05/25 iron) tablet,delayed release hydralazine 50 mg tablet 50 mg PO TID 30 days #90 tab s 01/05/25 hydrocodone 10 mg-acetaminophen 1 tab PO Q6HR PRN Mode rate-Severe 01/05/25 325 mg tablet Pain (4-10) 7 days #30 tabs hydroxyzine HCl 25 mg tablet 25 mg PO HS 30 days #30 t abs 01/05/25 insulin glargine 100 unit/mL (3 18 unit (0.18 mL) subc ut QPM #15 mL 01/05/25 mL) subcutaneous pen (Lantus Solostar U-100 Insulin) insulin lispro 100 unit/mL See Protocol subcut USEASDI RECTD 01/05/25 subcutaneous pen (Admelog SoloStar #15 mL U-100 Insulin lispro) pen needle, diabetic 31 gauge x #100 ea 01/05/25 1/ (CareFine Pen Needle) ondansetron 4 mg disintegrating 4 mg PO Q8H PRN nausea and 01/10/25 tablet vomiting #14 tabs polyethylene glycol 3350 17 4 g PO QDAY #119 grams gram/dose oral powder (Miralax) sennosides 8.6 mg tablet (senna) 8.6 mg PO QDAY PRN co nstipation 01/10/25 #30 tabs Allergies Allergy/AdvReac Type Severity Reaction Status Date / Time No Known Allergies Allergy Verified 01/10/25 09:47 Review of Systems Review of Systems Systems Reviewed: All systems reviewed, normal except as documented Past Medical History Past Medical History NEUROLOGIC: Negative Neurological Disorders, Cerebrovascular Accident, Transient Ischemic Attacks (TIA) or Seizures CARDIAC: Positive Cardiac Disorders and Hypertension; Negative Myocardial Infarction, Hypercholesterolemia or Congestive Heart Failure RESPIRATORY: Negative Chronic Obstructive Pulmonary Disease (COPD) or Asthma GASTROINTESTINAL: Negative Gastrointestinal Disorders, Hepatitis, Gastrointestinal Bleed, Colorectal Cancer, Hemorrhoids or Gastroesophageal Reflux Disease GENITOURINARY: Negative Genitourinary Disorders, Renal Disease, Kidney Stones or Prostate Cancer REPRODUCTIVE: Positive Previous Pregnancies; Negative Breast Cancer, Pelvic Inflammatory Disease or Testicular Cancer MUSCULOSKELETAL: Negative Musculoskeletal Disorders, Bone Cancer or Arthritis ENDOCRINE: Positive Diabetes Mellitus Type 2; Negative Endocrine Disorders, Diabetes Mellitus Type 1, Hyperthyroidism or Hypothyroidism HEMATOLOGIC: Negative Blood Disorders, Anemia or Sickle Cell Disease PSYCHO/SOCIAL: Positive Anxiety; Negative Recreational Drug Use or Depression OTHER HISTORY: Positive Blood Transfusions, Blood Transfusion Reaction and Cancer; Negative Autoimmune Disease, Anesthesia Reactions, Organ Transplant, Chemotherapy, Radiation Therapy, Hyperbaric Therapy, MRSA, VRSA, Vancomycin- Resistant Enterococci, Human Immunodeficiency Virus (HIV), Chicken Pox, Measles, Mumps, Rubella (Persian Measles), Pertussis, Clostridium Difficile, Breast Cancer, Cervical Cancer, Colorectal Cancer, Lung Cancer, Ovarian Cancer, Prostate Cancer or Testicular Cancer Family History FAMILY HISTORY: Positive Family Cardiac Disorders; Negative Family Psychiatric Problems, Family Respiratory Disorders, Family Gastrointestinal Problems, Family Cancer, Family Surgery or Family Anesthesia Reaction Surgical History SURGICAL: Positive Section; Negative Organ Transplant Social History SMOKING STATUS: Never smoker SUBSTANCE USE: does not use ED Exam Narrative Physical exam: Glass Curvature Gauger RAYSA Dhillon, was present for the physical exam. Gen: A&O X 3, NAD, ill appearing HEENT: NCAT, EOMI, Pupils reactive MENDEZ, not icteric. External ears normal. No rhinorrhea. Moist mucous membranes. Neck: Supple, full range of motion, no observable masses, No meningeal sign. Lungs: No Respiratory distress, clear bilateral. CV: RRR, no murmurs. Abdomen: Soft, nondistended, mildly tender in R side, bowel sounds present, No rebound tenderness. MSK: No joint swelling, no redness, peripheral pulses presents, lumbar with no edema. Rectal: External hemorrhoids appreciated, hard stool was present in rectal vault. Skin: No rashes, petechiae, lesions. HD catheter in R chest. Neuro: No focal neurological deficits appreciated, sensory and motor intact. Psych: Cooperative, appropriate mood and effect. Course Quality Measures none Orders Category Date Time Status Enema Administration NOW Care 01/10/25 11:53 Completed Enema Administration NOW Care 01/10/25 14:22 Completed Miscellaneous Nursing Order NOW Care 01/10/25 12:23 Completed XR abdomen flat and uprght Stat Exams 01/10/25 10:00 Completed CBC [CBC] Stat Lab 01/10/25 10:17 Completed CMP [Comprehensive Metabolic Panel] Stat Lab 01/10/25 10:17 Completed Lactic Acid [Lactate (Lactic Acid)] Stat Lab 01/10/25 10:17 Completed Procalcitonin Stat Lab 01/10/25 10:17 Completed HYDROcodone*/APAP 5/325 [[place] 5/325] Med 01/10/25 12:21 Discontinued 1 tab PO X1 ONE Lidocaine 2% Viscous [Xylocaine 2% Viscous] Med 01/10/25 14:09 Discontinued 15 ml PO X1 ONE Lidocaine Jelly 2% Urojet [Xylocaine Jelly 2% Urojet] Med 01/10/25 14:06 Discontinued See Dose Instructions TOP X1 ONE Magnesium Citrate Liqd [Citrate of Magnesia Liqd] Med 01/10/25 11:53 Discont inued 300 ml PO X1 ONE Vital Signs Vital signs: Vital Signs Temperature 98.3 F 01/10/25 12:16 Pulse Rate 77 01/10/25 12:16 Respiratory Rate 19 01/10/25 12:16 Blood Pressure 170/96 H 01/10/25 12:16 Pulse Oximetry (%) 99 01/10/25 12:16 Oxygen Delivery Method Room Air 01/10/25 12:16 Discharge Plan Plan Patient Disposition: HOME (Self Care) Prescriptions/Referrals Prescriptions/Med Rec: New polyethylene glycol 3350 [Miralax] 17 gram/dose powder 4 g PO QDAY Qty: 119 0RF sennosides [senna] 8.6 mg tablet 8.6 mg PO QDAY PRN (Reason: constipation) Qty: 30 0RF ondansetron 4 mg tablet,disintegrating 4 mg PO Q8H PRN (Reason: nausea and vomiting) Qty: 14 0RF No Action omeprazole 40 mg capsule,delayed release(DR/EC) 40 mg PO QDAY (DME) pen needle, diabetic [TRUEplus Pen Needle] 31 gauge x 1/4 needle buspirone 10 mg tablet 10 mg PO HS Patient Comments: TAKE 1 TABLET BY MOUTH ONCE DAILY AT BEDTIME (DME) Accu-Chek Guide test strips Strip Patient Comments: USE 1 STRIP TO CHECK GLUCOSE THREE TIMES DAILY (DME) lancets [Accu-Chek Softclix Lancets] [facility] [place] Patient Comments: USE 1 TO CHECK GLUCOSE THREE TIMES DAILY insulin lispro 100 unit/mL insulin pen 5 unit SUBCUT TID Patient Comments: INJECT 5 UNITS SUBCUTANEOUSLY THREE TIMES DAILY BEFORE MEALS carvedilol 25 mg tablet 25 mg PO BIDWM 30 Days Qty: 30 0RF famotidine 20 mg Tablet 20 mg PO QDAY 30 Days Qty: 30 0RF ferrous sulfate 325 mg (65 mg iron) Tablet,Delayed Release (Dr/Ec) 325 mg PO DAILY 30 Days Qty: 30 0RF hydralazine 50 mg tablet 50 mg PO TID 30 Days Qty: 90 0RF hydrocodone-acetaminophen 10-325 mg Tablet 1 tab PO Q6HR MDD 4 PRN (Reason: Moderate-Severe Pain (4-10)) 7 Days Qty: 30 0RF hydroxyzine HCl 25 mg Tablet 25 mg PO HS 30 Days Qty: 30 0RF insulin glargine [Lantus Solostar U-100 Insulin] 100 unit/mL (3 mL) insulin pen 18 unit subcut QPM Qty: 15 0RF insulin lispro [Admelog SoloStar U-100 Insulin] 100 unit/mL insulin pen See Protocol subcut USEASDIRECTD Qty: 15 0RF Protocol: Insulin Corrective High-Dose Regimen Condition: Fingerstick Blood Glucose Dose/Route: Insulin Units Condition: 141-180 mg/dl Dose/Route: 6 units/SQ Condition: 181-220 mg/dl Dose/Route: 8 units/SQ Condition: 221-260 mg/dl Dose/Route: 10 units/SQ Condition: 261-300 mg/dl Dose/Route: 12 units/SQ Condition: 301-350 mg/dl Dose/Route: 14 units/SQ Condition: 351-400 mg/dl Dose/Route: 16 units/SQ Condition: greater than 400 mg/dl Dose/Route: 18 units/SQ (DME) pen needle, diabetic [CareFine Pen Needle] 31 gauge x 1/4 needle See Rx Instructions .Route Qty: 100 0RF Rx Instructions: As directed Referrals: Stan Cedillo MD [Primary Care Provider] - In 1 week Problem List Clinical Impression: Abdominal pain, Constipation Patient/Caregiver Discharge Instructions Other Activity Instructions:: Follow-up primary care physician within 2 or 3 days Recommend prolonging time between [place] dosage and using Tylenol between dosages to decrease pain in order to prolong time between [place] doses. Have prescribed Miralax once daily for constipation for the next 14 days. Then can use as needed for constipation. Have prescribed senna as needed for constipation Prescribe Zofran every 8 hours as needed for nausea Come back to the ED if symptoms persist or worsen. Education Materials: ED Abdominal Pain Unkn Cause Fem, ED Constipation (Adult) Print Language: Djiboutian Stand Alone Forms: Nina Award Info., Patient Portal Info Letter MDM Narrative MDM hospital course: Patient was seen and evaluated upon arrival by myself. Diagnostic labs and imaging were ordered. Patient's abdomen x-ray did show a lot of stool without any obstructions therefore ordered magnesium citrate 300 mL x 1 for the patient to drink half a bottle in the ED in the next at home. Also ordered a soapsuds enema. Otherwise all other labs look fairly unremarkable. Patient stated that she was starting to get pain 10 out of 10 left for [place] x 1 was given. Patient attempted to pass a bowel movement, but was having too much pain and cannot have a bowel movement and was crying from the pain therefore at this time decision was made to do rectal disimpaction. Rectal disimpaction was done with viscous lidocaine to decrease patient pain and discomfort. Multiple hard large pebble size stool was extracted from the rectal vault. Patient afterwards had a large bowel movement without any straining and had relief. At this time patient was stable enough to be discharged back home. Prescribed Zofran for nausea, MiraLAX and senna for constipation. Patient agreed with plan. Case disclosed with Attending Dr. Alex Jonas PGY2 Disclaimer: Even though this this note was dictated by speech recognition and even though it was carefully revised there may still be minor errors in special effects person due to voice recognition software. Medication Administration(s) Medication Administration History Discontinued Medications Hydrocodone Bitart/Acetaminophen (Hydrocodone/Apap 5/325 Tablet) 1 tab PO X1 ONE Stop: 01/10/25 12:22 Last Admin: 01/10/25 13:08 Dose: 1 tab Documented By: ELIOT Lidocaine HCl (Lidocaine Jelly 2% (Urojet) 10 Ml Tube) 0 ml TOP X1 ONE Stop: 01/10/25 14:07 Last Admin: 01/10/25 14:15 Dose: Not Given Documented By: ELIOT Non-Admin Reason: Discontinued Lidocaine HCl (Lidocaine Viscous 2% 15 Ml Udc) 15 ml PO X1 ONE Stop: 01/10/25 14:10 Last Admin: 01/10/25 14:16 Dose: 15 ml Documented By: ELIOT Comments: used by provider at bedside Magnesium Citrate (Magnesium Citrate 300 Ml Btl) 300 ml PO X1 ONE Stop: 01/10/25 11:54 Last Admin: 01/10/25 13:08 Dose: 300 ml Documented By: ELIOT
--- NOTE | 2025-01-10 10:00 | XR_ITS ---
Examination: Abdomen 2 views Technique: AP upright AP supine abdomen 2 views Date and time: January 10, 2025, 10:22 AM Indications: Abdominal pain and constipation beginning 10 days ago. Findings: Large amounts of stool throughout the colon. Left nephrostomy drainage tubes satisfactory position No obstruction Moderate osteopenia Impression: Large amounts of stool throughout the colon
[2025-01-10 10:22] LABS: Lactate (Lactic Acid) 0.6 mMol/L (0.4-2.0)
[2025-01-10 10:25] LABS: Basophils # (Auto) 0.0 Thou/mm3 (0.0-0.2); Basophils % (Auto) 0 % (0-2.5); Eosinophils # (Auto) 0.3 Thou/mm3 (0.0-0.5); Eosinophils % (Auto) 4 % (0-10); Hematocrit 27.9 % (36.0-46.0); Immature Granulocytes Auto 0.04 Thou/mm3 (0.00-0.00); Lymphocytes # (Auto) 1.5 Thou/mm3 (1.0-4.8); Lymphocytes % (Auto) 21 % (10-50); Mean Corpuscular HGB Conc 30.5 g/dl (31.0-37.0); Mean Corpuscular Hemoglobin 24.7 pg (25.0-35.0); Mean Corpuscular Volume 81 fL (80-100); Monocytes # (Auto) 0.4 Thou/mm3 (0.0-0.8); Monocytes % (Auto) 5 % (0-12); Neutrophils # (Auto) 5.2 Thou/mm3 (1.8-7.7); Neutrophils % (Auto) 70 % (37-80); Nucleated Red Blood Cell # 0.00 Thou/mm3 (0.00-0.00); Nucleated Red Blood Cell % 0 /100 WBC (0); Platelet Count 467 Thou/mm3 (140-440); RDW Standard Deviation 45.1 fL (36.4-46.3); Red Blood Count 3.44 Miln/mm3 (4.00-5.20); White Blood Count 7.4 Thou/mm3 (3.6-11.0)
[2025-01-10 10:31] LABS: Hemoglobin 8.5 g/dL (12.0-16.0)
[2025-01-10 11:03] LABS: Alanine Aminotransferase 8 U/L (10-49); Albumin, Serum 4.2 gm/dL (3.5-5.0); Albumin/Globulin Ratio 1.4 (1.2-2.2); Alkaline Phosphatase 108 U/L (46-116); Anion Gap 11 (7-16); Aspartate Amino Transferase 15 U/L (0-34); BUN/Creatinine Ratio 2 Ratio (12-20); Bilirubin,Total 0.3 mg/dL (0.3-1.2); Blood Urea Nitrogen 8 mg/dL (9-23); Calcium 9.4 mg/dL (8.3-10.6); Calcium (Corrected) 9.4 mg/dL (8.5-10.1); Carbon Dioxide 31.9 mMol/L (20.0-31.0); Chloride 95 mMol/L (98-107); Creatinine (Component) 3.4 mg/dL (0.6-1.3); Globulin 3.0 gm/dL (2.3-3.5); Glucose 93 mg/dL (74-106); Osmolality,Calculated 273 (275-295); Potassium 3.4 mMol/L (3.4-5.1); Procalcitonin 0.12 ng/ml (0.0-0.49); Sodium 138 mMol/L (136-145); Total Protein 7.2 gm/dL (5.7-8.2); eGFR 17 See Note
[2025-01-10 12:16] VITALS: BP 170/96; PULSE 77; RESP 19; TEMP 36.8; O2SAT 99
[2025-01-10 13:03] VITALS: BMI 33.5
[2025-01-10] MEDS: HYDROcodone/APAP 5/325 TABLET 1 TAB PO (13:08)
[2025-01-10] MEDS: MAGNESIUM CITRATE 300 ML BTL PO (13:08)
[2025-01-10] MEDS: LIDOCAINE VISCOUS 2% 15 ML UDC PO (14:16)
[2025-01-10 15:29] VITALS: BP 172/115; PULSE 75; RESP 19; TEMP 36.9; O2SAT 99
[2025-01-10 15:56] VITALS: BP 149/93; PULSE 74; RESP 20; O2SAT 99
== END 2025-01-10 15:57 | disposition home or self-care (01) ==
PROVIDERS: Emergency Provider Emergency Medicine; PCP Family Medicine
DX: K59.00 Constipation, unspecified (principal); E11.22 Type 2 diabetes mellitus with diabetic chronic kidney disease; I12.0 Hypertensive chronic kidney disease with stage 5 chronic kidney disease or end stage renal disease; N18.6 End stage renal disease; Z99.2 Dependence on renal dialysis; Z79.4 Long term (current) use of insulin; K21.9 Gastro-esophageal reflux disease without esophagitis; Z86.19 Personal history of other infectious and parasitic diseases
CPT/HCPCS: 36415; 74019; 80053; 81001; 83605; 84145; 85025; 99283; J3490; A9270

== ENCOUNTER 2025-01-24 02:49 | Emergency (ER) | payer MEDICAID, SELFPAY ==
[2025-01-24 02:50] VITALS: BMI 25.6
[2025-01-24 03:05] VITALS: BP 131/84; PULSE 94; RESP 18; TEMP 36.9; O2SAT 98
--- NOTE | 2025-01-24 03:13 | PD.EDRME ---
Rapid Medical Screening Exam [facility] Arrival date/time: 01/24/25 02:49 44F with history of DM, HTN, ESRD (supposed to get dialysis today), and recent nephrostomy tube placement presents to ED with R flank/RLQ pain. Patient denies N/V. Chief Complaint: Abdominal Pain Vital signs: Vital Signs Temperature 98.4 F 01/24/25 03:05 Pulse Rate 94 01/24/25 03:05 Respiratory Rate 18 01/24/25 03:05 Blood Pressure 131/84 H 01/24/25 03:05 Pulse Oximetry (%) 98 01/24/25 03:05 Oxygen Delivery Method Room Air 01/24/25 03:05
[2025-01-24] MEDS: MORPHINE SULF LIQD 10 MG/5 ML UDC PO (03:21)
[2025-01-24 03:34] LABS: Basophils # (Auto) 0.1 Thou/mm3 (0.0-0.2); Basophils % (Auto) 0 % (0-2.5); Eosinophils # (Auto) 0.2 Thou/mm3 (0.0-0.5); Eosinophils % (Auto) 2 % (0-10); Hematocrit 29.1 % (36.0-46.0); Immature Granulocytes Auto 0.05 Thou/mm3 (0.00-0.00); Lymphocytes # (Auto) 2.9 Thou/mm3 (1.0-4.8); Lymphocytes % (Auto) 21 % (10-50); Mean Corpuscular HGB Conc 30.2 g/dl (31.0-37.0); Mean Corpuscular Hemoglobin 25.5 pg (25.0-35.0); Mean Corpuscular Volume 84 fL (80-100); Monocytes # (Auto) 0.8 Thou/mm3 (0.0-0.8); Monocytes % (Auto) 6 % (0-12); Neutrophils # (Auto) 9.6 Thou/mm3 (1.8-7.7); Neutrophils % (Auto) 71 % (37-80); Nucleated Red Blood Cell # 0.00 Thou/mm3 (0.00-0.00); Nucleated Red Blood Cell % 0 /100 WBC (0); Platelet Count 430 Thou/mm3 (140-440); RDW Standard Deviation 50.5 fL (36.4-46.3); Red Blood Count 3.45 Miln/mm3 (4.00-5.20); White Blood Count 13.6 Thou/mm3 (3.6-11.0)
[2025-01-24 03:35] LABS: Hemoglobin 8.8 g/dL (12.0-16.0)
[2025-01-24 04:00] LABS: Alanine Aminotransferase < 7 U/L (10-49); Albumin, Serum 4.1 gm/dL (3.5-5.0); Albumin/Globulin Ratio 1.3 (1.2-2.2); Alkaline Phosphatase 107 U/L (46-116); Anion Gap 12 (7-16); Aspartate Amino Transferase 17 U/L (0-34); BUN/Creatinine Ratio 6 Ratio (12-20); Bilirubin,Total 0.3 mg/dL (0.3-1.2); Blood Urea Nitrogen 14 mg/dL (9-23); Calcium 9.5 mg/dL (8.3-10.6); Calcium (Corrected) 9.5 mg/dL (8.5-10.1); Carbon Dioxide 23.3 mMol/L (20.0-31.0); Chloride 102 mMol/L (98-107); Creatinine (Component) 2.4 mg/dL (0.6-1.3); Estimated Creatinine Clearance 26.7 mL/min (>60); Globulin 3.2 gm/dL (2.3-3.5); Glucose 187 mg/dL (74-106); Lipase 26 U/L (12-53); Osmolality,Calculated 279 (275-295); Potassium 3.7 mMol/L (3.4-5.1); Sodium 137 mMol/L (136-145); Total Protein 7.3 gm/dL (5.7-8.2); eGFR 25 See Note
[2025-01-24 05:43] LABS: Collection Type, Urine Clean Catch; Squamous Epithelial Cell,Urine 0 /hpf (0-5)
[2025-01-24 05:59] VITALS: BP 122/86; PULSE 68; RESP 20; TEMP 36.6; O2SAT 97
[2025-01-24 06:13] LABS: Bacteria,Urine Rare; Bilirubin,Urine Negative (Negative); Blood,Urine 1+ (Negative); Clarity,Urine Turbid (Clear/Hazy); Color,Urine Lt-Yellow (Lt Yel-Yel); Culture Indicated,Urine Not Indicated; Glucose, Urine Negative (Negative); Hyaline Casts,Urine < 1 /hpf (0-1); Ketones,Urine Negative (Negative); Leukocyte Esterase,Urine Positive (Negative); Nitrite,Urine Negative (Negative); PH,Urine 6.5 (5.0-7.0); Protein,Urine 2+ (Neg - Trace); RBC,Urine 9 /hpf (0-3); Specific Gravity,Urine 1.013 (1.001-1.035); Urobilinogen,Urine Negative mg/dL (0.0-1.0); WBC,Urine 6 /hpf (0-5)
[2025-01-24 06:14] LABS: Amphetamine/Methamp Scrn,U Negative (Negative); Barbiturate Screen,Urine Negative (Negative); Benzodiazepines Screen,Urine Negative (Negative); Benzoylecgonine Screen, Ur Negative (Negative); Fentanyl Screen,Urine Negative (Negative); Opiate Screen,Urine Positive (Negative); THC Screen,Urine Negative (Negative)
[2025-01-24] MEDS: MORPHINE SULF INJ 10 MG/ML VIAL 4 MG IM (06:56)
[2025-01-24] MEDS: ONDANSETRON INJ 2 MG/ML INJ 2 ML 4 MG IM (06:59)
[2025-01-24 07:02] VITALS: BP 138/67; PULSE 66; RESP 18; TEMP 36.6; O2SAT 98
--- NOTE | 2025-01-24 07:03 | PD.EDABDPN ---
ED Abdominal Pain RME/HPI General Chief Complaint: Abdominal Pain Stated complaint: RIGHT LOWER ABDOMINAL PAIN Time seen by provider: 01/24/25 06:11 Arrival date/time: 01/24/25 02:49 Source: patient Mode of arrival: ambulatory Limitations: no limitations RME / HPI RME / HPI narrative: 01/24/25 02:49 44F with history of DM, HTN, ESRD (supposed to get dialysis today), and recent nephrostomy tube placement presents to ED with R flank/RLQ pain. Patient denies N/V. Patient states that she was recently at another hospital and they did a lot of imaging which aggravated the pain from her bladder mass. Patient's dialysis is supposed to be this morning and she spoke to the dialysis center. Patient is out of her Meeker tens which is the main purpose of her visit this morning. She is draining a urine which is clear appearing. Pain appears to be related to the bladder mass. MD complaint: abdominal pain Onset (ago): hour(s) Consistency: constant Location: RLQ Severity: moderate Severity scale (1-10): 7 Quality: aching Radiation: none Migration to: no migration Relieving factors: medication Exacerbating factors: nothing Associated symptoms: denies other symptoms Treatments prior to arrival: prescription analgesics Related Data Home Medications ?Medication ?Instructions ?Recorded ?Confirmed blood sugar diagnostic (Accu-Chek 12/11/24 12/11/24 Guide test strips) buspirone 10 mg tablet 10 mg PO HS 12/11/24 12/11/24 insulin lispro 100 unit/mL 5 unit subcut TID 12/11/24 12/11/24 subcutaneous pen lancets (Accu-Chek Softclix 12/11/24 12/11/24 Lancets) omeprazole 40 mg capsule,delayed 40 mg PO QDAY 12/11/24 12/11/24 release pen needle, diabetic 31 gauge x 12/11/24 12/11/2405/31 (TRUEplus Pen Needle) Previous Rx's ?Medication ?Instructions ?Recorded carvedilol 25 mg tablet 25 mg PO BIDWM 30 days #30 tabs 01/05/25 famotidine 20 mg tablet 20 mg PO QDAY 30 days #30 tabs 01/05/25 ferrous sulfate 325 mg (65 mg 325 mg PO DAILY 30 days #30 tabs 01/05/25 iron) tablet,delayed release hydralazine 50 mg tablet 50 mg PO TID 30 days #90 tabs 01/05/25 hydroxyzine HCl 25 mg tablet 25 mg PO HS 30 days #30 tabs 01/05/25 insulin glargine 100 unit/mL (3 18 unit (0.18 mL) subcut QPM #15 mL 01/05/25 mL) subcutaneous pen (Lantus Solostar U-100 Insulin) insulin lispro 100 unit/mL See Protocol subcut USEASDIRECTD 01/05/25 subcutaneous pen (Admelog SoloStar #15 mL U-100 Insulin lispro) pen needle, diabetic 31 gauge x #100 ea 01/05/2505/31 (CareFine Pen Needle) ondansetron 4 mg disintegrating 4 mg PO Q8H PRN nausea and 01/10/25 tablet vomiting #14 tabs polyethylene glycol 3350 17 4 g PO QDAY #119 grams 01/10/25 gram/dose oral powder (Miralax) sennosides 8.6 mg tablet (senna) 8.6 mg PO QDAY PRN constipation 01/10/25 #30 tabs hydrocodone 10 mg-acetaminophen 1 tab PO Q6H PRN pain #20 tabs 01/24/25 325 mg tablet Allergies Allergy/AdvReac Type Severity Reaction Status Date / Time No Known Allergies Allergy Verified 01/10/25 09:47 Review of Systems Review of Systems Systems Reviewed: All systems reviewed, normal except as documented Past Medical History Past Medical History NEUROLOGIC: Positive Migraine; Negative Neurological Disorders, Cerebrovascular Accident, Transient Ischemic Attacks (TIA) or Seizures CARDIAC: Positive Cardiac Disorders and Hypertension; Negative Myocardial Infarction, Hypercholesterolemia or Congestive Heart Failure RESPIRATORY: Negative Chronic Obstructive Pulmonary Disease (COPD) or Asthma GASTROINTESTINAL: Negative Gastrointestinal Disorders, Hepatitis, Gastrointestinal Bleed, Colorectal Cancer, Hemorrhoids or Gastroesophageal Reflux Disease GENITOURINARY: Negative Genitourinary Disorders, Renal Disease, Kidney Stones or Prostate Cancer REPRODUCTIVE: Positive Previous Pregnancies; Negative Breast Cancer, Pelvic Inflammatory Disease or Testicular Cancer MUSCULOSKELETAL: Negative Musculoskeletal Disorders, Bone Cancer or Arthritis ENDOCRINE: Positive Diabetes Mellitus Type 2; Negative Endocrine Disorders, Diabetes Mellitus Type 1, Hyperthyroidism or Hypothyroidism HEMATOLOGIC: Negative Blood Disorders, Anemia or Sickle Cell Disease PSYCHO/SOCIAL: Positive Anxiety; Negative Recreational Drug Use or Depression OTHER HISTORY: Positive Blood Transfusions, Blood Transfusion Reaction and Cancer; Negative Autoimmune Disease, Anesthesia Reactions, Organ Transplant, Chemotherapy, Radiation Therapy, Hyperbaric Therapy, MRSA, VRSA, Vancomycin-Resistant Enterococci, Human Immunodeficiency Virus (HIV), Chicken Pox, Measles, Mumps, Rubella (Tongan Measles), Pertussis, Clostridium Difficile, Breast Cancer, Cervical Cancer, Colorectal Cancer, Lung Cancer, Ovarian Cancer, Prostate Cancer or Testicular Cancer Family History FAMILY HISTORY: Positive Family Cardiac Disorders; Negative Family Psychiatric Problems, Family Respiratory Disorders, Family Gastrointestinal Problems, Family Cancer, Family Surgery or Family Anesthesia Reaction Surgical History SURGICAL: Positive Section; Negative Organ Transplant Social History SMOKING STATUS: Never smoker SUBSTANCE USE: does not use ED Exam General Limitations: Present no limitations Head Head exam: Present atraumatic and normocephalic Eye Eye exam: Present PERRL and EOMI ENT ENT exam: Present normal exam, normal oropharynx and mucous membranes moist Neck Neck exam: Present normal inspection, full ROM and trachea midline Chest Chest inspection: Present normal inspection and symmetric chest wall rise Respiratory Respiratory exam: Present normal lung sounds bilaterally Cardiovascular Cardiovascular exam: Present regular rate and normal rhythm Abdominal Exam Abdominal exam: Present soft, tenderness and other (nephrostomt in place draining clear urine) Abdominal tenderness: Present RLQ Rectal Exam Rectal exam: Present deferred Extremities Exam Extremities exam: Present normal inspection Back Exam Back exam: Present normal inspection Neurological Exam Neurological exam: Present alert, oriented X3, CN II-XII intact, normal gait, motor sensory deficit and reflexes normal Psychiatric Psychiatric exam: Present normal affect and normal mood Skin Skin exam: Present warm and dry Course Quality Measures none Orders Category Date Time Status CBC Stat Lab 01/24/25 03:25 Completed CMP [Comprehensive Metabolic Panel] Stat Lab 01/24/25 03:25 Completed Drug Screen,Urine Stat Lab 01/24/25 05:27 Completed Lipase Stat Lab 01/24/25 03:25 Completed Urinalysis, C/S if Indicated Stat Lab 01/24/25 05:27 Completed Morphine Inj Med 01/24/25 06:47 Discontinued 4 mg IM X1 ONE Morphine Oral LIQUID Med 01/24/25 03:12 Discontinued 10 mg PO X1 ONE Ondansetron Inj [Zofran Inj] Med 01/24/25 06:47 Discontinued 4 mg IM X1 ONE Vital Signs Vital signs: Vital Signs Temperature 98.4 F 01/24/25 03:05 Pulse Rate 94 01/24/25 03:05 Respiratory Rate 18 01/24/25 03:05 Blood Pressure 131/84 H 01/24/25 03:05 Pulse Oximetry (%) 98 01/24/25 03:05 Oxygen Delivery Method Room Air 01/24/25 03:05 Abdominal Pain MDM MDM Narrative MDM Narrative:: Patient is a 44-year-old female with end-stage renal disease on dialysis with history of bladder mass and a nephrostomy tube on the right. Patient has run out of her Meeker 10 mg tablets and is here for pain control. She states that her pain was aggravated recently by testing done when they were trying to do imaging of her bladder mass. Patient data External records reviewed:: [facility] previous records Clinical information provided by:: patient Social determinants that could affect healthcare access:: none Patient has the following chronic illnesses:: End-stage renal disease, dialysis, bladder mass, nephrostomy tube, abdominal pain How is presenting disease/condition affected by chronic disease/condition?: caused by Evaluation data The following diagnostics were reviewed and interpreted by me:: lab results Lab and/or radiology exams considered but not ordered:: WBC is 13.6, hemoglobin 8.8, creatinine 2.4, urine showed 6 WBCs and rare bacteria Interpretation Summary: as above Medications / Prescriptions Medications or Prescriptions considered but not ordered:: Dilaudid Medication administrations:: Medication Administration History Discontinued Medications Morphine Sulfate (Morphine Sulf Liqd 10 Mg/5 Ml c) 10 mg PO X1 ONE Stop: 01/24/25 03:13 Last Admin: 01/24/25 03:21 Dose: 10 mg Documented By: MARVIN Morphine Sulfate (Morphine Sulf Inj 10 Mg/Ml Vial) 4 mg IM X1 ONE Stop: 01/24/25 06:48 Last Admin: 01/24/25 06:56 Dose: 4 mg Documented By: ANGELIQUE Ondansetron HCl (Ondansetron Inj 2 Mg/Ml Inj 2 Ml) 4 mg IM X1 ONE; Protocol Stop: 01/24/25 06:48 Last Admin: 01/24/25 06:59 Dose: 4 mg Documented By: ANGELIQUE As above Consultations Consultation(s) initiated? (list below): No Diagnosis Differential diagnosis abdominal pain: abdominal pain Most likely diagnosis given after review of the tests above:: As above Admission Indicated Admission indicated?: not indicated Admission Request Was there a request for admission?: No Disposition Plan Disposition Plan: Discharge Discharge Attestation Discharge Attestation: The patient and all family members were given an opportunity to ask questions and understood the discharge instructions. Discharge instructions specifically effects, indications for sooner follow up or return to the emergency department, and the expected course of current diagnosis. Patient condition: Stable Discharge Plan Plan Patient Disposition: HOME (Self Care) Prescriptions/Referrals Prescriptions/Med Rec: New hydrocodone-acetaminophen 10-325 mg tablet 1 tab PO Q6H MDD 4 PRN (Reason: pain) Qty: 20 0RF No Action omeprazole 40 mg capsule,delayed release(DR/EC) 40 mg PO QDAY (DME) pen needle, diabetic [TRUEplus Pen Needle] 31 gauge x 1/4 needle buspirone 10 mg tablet 10 mg PO HS Patient Comments: TAKE 1 TABLET BY MOUTH ONCE DAILY AT BEDTIME (DME) Accu-Chek Guide test strips Strip Patient Comments: USE 1 STRIP TO CHECK GLUCOSE THREE TIMES DAILY (DME) lancets [Accu-Chek Softclix Lancets] Misc Patient Comments: USE 1 TO CHECK GLUCOSE THREE TIMES DAILY insulin lispro 100 unit/mL insulin pen 5 unit SUBCUT TID Patient Comments: INJECT 5 UNITS SUBCUTANEOUSLY THREE TIMES DAILY BEFORE MEALS carvedilol 25 mg tablet 25 mg PO BIDWM 30 Days Qty: 30 0RF famotidine 20 mg Tablet 20 mg PO QDAY 30 Days Qty: 30 0RF ferrous sulfate 325 mg (65 mg iron) Tablet,Delayed Release (Dr/Ec) 325 mg PO DAILY 30 Days Qty: 30 0RF hydralazine 50 mg tablet 50 mg PO TID 30 Days Qty: 90 0RF hydroxyzine HCl 25 mg Tablet 25 mg PO HS 30 Days Qty: 30 0RF insulin glargine [Lantus Solostar U-100 Insulin] 100 unit/mL (3 mL) insulin pen 18 unit subcut QPM Qty: 15 0RF insulin lispro [Admelog SoloStar U-100 Insulin] 100 unit/mL insulin pen See Protocol subcut USEASDIRECTD Qty: 15 0RF Protocol: Insulin Corrective High-Dose Regimen Condition: Fingerstick Blood Glucose Dose/Route: Insulin Units Condition: 141-180 mg/dl Dose/Route: 6 units/SQ Condition: 181-220 mg/dl Dose/Route: 8 units/SQ Condition: 221-260 mg/dl Dose/Route: 10 units/SQ Condition: 261-300 mg/dl Dose/Route: 12 units/SQ Condition: 301-350 mg/dl Dose/Route: 14 units/SQ Condition: 351-400 mg/dl Dose/Route: 16 units/SQ Condition: greater than 400 mg/dl Dose/Route: 18 units/SQ (DME) pen needle, diabetic [CareFine Pen Needle] 31 gauge x 1/4 needle See Rx Instructions .Route Qty: 100 0RF Rx Instructions: As directed polyethylene glycol 3350 [Miralax] 17 gram/dose powder 4 g PO QDAY Qty: 119 0RF sennosides [senna] 8.6 mg tablet 8.6 mg PO QDAY PRN (Reason: constipation) Qty: 30 0RF ondansetron 4 mg tablet,disintegrating 4 mg PO Q8H PRN (Reason: nausea and vomiting) Qty: 14 0RF Referrals: Stan Cedillo MD [Primary Care Provider] - In 1 week Problem List Clinical Impression: Abdominal pain, Bladder mass, Renal failure, History of insertion of nephrostomy tube Patient/Caregiver Discharge Instructions Education Materials: Understanding the Pain Response Additional Instructions: Follow-up this morning with your dialysis center. Follow-up with your regular doctors as scheduled. Print Language: Maltese Stand Alone Forms: Nina Award Info., Patient Portal Info Letter
== END 2025-01-24 07:02 | disposition home or self-care (01) ==
PROVIDERS: Physician Assistant; Emergency Provider Family Medicine; PCP Family Medicine
DX: N32.89 Other specified disorders of bladder (principal); I12.0 Hypertensive chronic kidney disease with stage 5 chronic kidney disease or end stage renal disease; N18.6 End stage renal disease; E11.22 Type 2 diabetes mellitus with diabetic chronic kidney disease; Z99.2 Dependence on renal dialysis; Z93.6 Other artificial openings of urinary tract status; Z79.4 Long term (current) use of insulin
CPT/HCPCS: 36415; 80053; 80307; 81001; 83690; 85025; 96372; 99283; J2270; J2405; A9270

== ENCOUNTER 2025-01-28 05:53 | Emergency (ER) | payer MEDICAID, SELFPAY ==
[2025-01-28 05:55] VITALS: BMI 25.6
[2025-01-28 06:01] VITALS: BP 101/66; PULSE 85; RESP 18; TEMP 36.8; O2SAT 100
--- NOTE | 2025-01-28 06:16 | XR_ITS ---
Examination: CT abdomen and pelvis without contrast. Coronal 3-D reconstructions. Sagittal 2-D reconstructions. Date and time of exam:January 28, 2025 0940 hours, comparison December 18, 2024 INDICATIONS: Bilateral flank pain today, history kidney stones COMPARISON: December 18, 2024 CTDI: vol (mGy): 8.29 DLP: (mGycm): 510 Technique: Axial images of the abdomen have been obtained, 3 mm slice thickness Intravenous contrast material has not been administered. Low dose protocols were performed. One or more of the following dose reduction techniques were used; automated exposure control, adjustment of the mA and/or KV according to patient size, use of iterative reconstruction technique. Findings: Partial visualization 24 mm pulmonary nodule right middle lobe image 1 19 mm pulmonary nodule right lower lobe image 17 No focal liver or splenic lesion Cholelithiasis No pancreatic or adrenal mass Bilateral renal calculi Bilateral percutaneous nephrostomy tubes satisfactory position Perinephric stranding Normal appendix No hydronephrosis Retroverted uterus Urinary bladder mild wall thickening Advanced degenerative disc disease L5-S1 IMPRESSION: Pulmonary masses as above, recommend CT chest without contrast follow-up Cholelithiasis Bilateral renal calculi Bilateral nephrostomy drainage tubes satisfactory position, no significant hydronephrosis
--- NOTE | 2025-01-28 06:17 | PD.EDRME ---
Rapid Medical Screening Exam RME Arrival date/time: 01/28/25 05:53 44-year-old female ESRD on dialysis with bilateral nephrostomy tubes presents to the emergency department complaints of back pain Chief Complaint: Hip Injury/Pain Time Seen by Provider: 01/28/25 06:14 Vital signs: Vital Signs Temperature 98.2 F 01/28/25 06:01 Pulse Rate 85 01/28/25 06:01 Respiratory Rate 18 01/28/25 06:01 Blood Pressure 101/66 01/28/25 06:01 Pulse Oximetry (%) 100 01/28/25 06:01 Oxygen Delivery Method Room Air 01/28/25 06:01
[2025-01-28 07:04] LABS: Collection Type, Urine Clean Catch; Squamous Epithelial Cell,Urine 0 /hpf (0-5)
[2025-01-28 07:13] LABS: Bacteria,Urine Rare; Bilirubin,Urine Negative (Negative); Blood,Urine 1+ (Negative); Clarity,Urine Turbid (Clear/Hazy); Color,Urine Lt-Yellow (Lt Yel-Yel); Culture Indicated,Urine Not Indicated; Glucose, Urine Negative (Negative); Granular Casts,Urine < 1 /hpf (0-1); Hyaline Casts,Urine < 1 /hpf (0-1); Ketones,Urine Negative (Negative); Leukocyte Esterase,Urine Positive (Negative); Nitrite,Urine Negative (Negative); PH,Urine 7.5 (5.0-7.0); Protein,Urine 1+ (Neg - Trace); RBC,Urine 4 /hpf (0-3); Specific Gravity,Urine 1.006 (1.001-1.035); Urobilinogen,Urine Negative mg/dL (0.0-1.0); WBC,Urine 7 /hpf (0-5)
[2025-01-28 07:14] LABS: Basophils # (Auto) 0.1 Thou/mm3 (0.0-0.2); Basophils % (Auto) 1 % (0-2.5); Eosinophils # (Auto) 0.3 Thou/mm3 (0.0-0.5); Eosinophils % (Auto) 3 % (0-10); Hematocrit 28.6 % (36.0-46.0); Immature Granulocytes Auto 0.06 Thou/mm3 (0.00-0.00); Lymphocytes # (Auto) 2.8 Thou/mm3 (1.0-4.8); Lymphocytes % (Auto) 24 % (10-50); Mean Corpuscular HGB Conc 30.1 g/dl (31.0-37.0); Mean Corpuscular Hemoglobin 25.4 pg (25.0-35.0); Mean Corpuscular Volume 84 fL (80-100); Monocytes # (Auto) 0.9 Thou/mm3 (0.0-0.8); Monocytes % (Auto) 8 % (0-12); Neutrophils # (Auto) 7.3 Thou/mm3 (1.8-7.7); Neutrophils % (Auto) 64 % (37-80); Nucleated Red Blood Cell # 0.00 Thou/mm3 (0.00-0.00); Nucleated Red Blood Cell % 0 /100 WBC (0); Platelet Count 435 Thou/mm3 (140-440); RDW Standard Deviation 53.0 fL (36.4-46.3); Red Blood Count 3.39 Miln/mm3 (4.00-5.20); White Blood Count 11.5 Thou/mm3 (3.6-11.0)
[2025-01-28 07:17] LABS: Hemoglobin 8.6 g/dL (12.0-16.0)
[2025-01-28 07:27] LABS: Alanine Aminotransferase 14 U/L (10-49); Albumin, Serum 4.1 gm/dL (3.5-5.0); Albumin/Globulin Ratio 1.3 (1.2-2.2); Alkaline Phosphatase 151 U/L (46-116); Anion Gap 11 (7-16); Aspartate Amino Transferase 23 U/L (0-34); BUN/Creatinine Ratio 6 Ratio (12-20); Bilirubin,Total 0.5 mg/dL (0.3-1.2); Blood Urea Nitrogen 10 mg/dL (9-23); Calcium 9.5 mg/dL (8.3-10.6); Calcium (Corrected) 9.5 mg/dL (8.5-10.1); Carbon Dioxide 28.2 mMol/L (20.0-31.0); Chloride 98 mMol/L (98-107); Creatinine (Component) 1.8 mg/dL (0.6-1.3); Estimated Creatinine Clearance 35.6 mL/min (>60); Globulin 3.2 gm/dL (2.3-3.5); Glucose 122 mg/dL (74-106); INR 1.0 (0.9-1.3); Lipase 24 U/L (12-53); Osmolality,Calculated 273 (275-295); Partial Thromboplastin Time 31.3 Seconds (22.0-36.0); Potassium 3.3 mMol/L (3.4-5.1); Prothrombin Time 11.3 Seconds (9.0-12.2); Sodium 137 mMol/L (136-145); Total Protein 7.3 gm/dL (5.7-8.2); eGFR 36 See Note
[2025-01-28 07:43] LABS: HCG,Qualitative Serum Negative
--- NOTE | 2025-01-28 11:49 | EDNOTE_ITS ---
<Statement entered by Eulalia Johnson MD - 02/07/25 11:12> As co-signing physician, I was present and available for consult prn. I concur with the plan and care as documented by the midlevel provider. ED Abdominal Pain RME/HPI General Chief Complaint: Hip Injury/Pain Stated complaint: RIGHT SIDE HIP PAIN RADIATES DOWN LEG Time seen by provider: 01/28/25 06:14 Arrival date/time: 01/28/25 05:53 RME / HPI RME / HPI narrative: 44-year-old female ESRD on dialysis with bilateral nephrostomy tubes presents to the emergency department complaints of back pain. This been ongoing for the last few days, pain radiates to the right lower leg. Patient also complaining of right-sided abdominal pain, described as dull ache, severity moderate. Denies any vomiting denies any fever denies any other complaints. Patient told me that her nephrostomy tube is draining normal. Patient denies any saddle anesthesia. Denies any incontinence. Related Data Home Medications ?Medication ?Instructions ?Recorded ?Confirmed blood sugar diagnostic (Accu-Chek 12/11/24 12/11/24 Guide test strips) buspirone 10 mg tablet 10 mg PO HS 12/11/24 5 insulin lispro 100 unit/mL 5 unit subcut TID 12/11/24 12/11/24 subcutaneous pen lancets (Accu-Chek Softclix 12/11/24 12/11/24 Lancets) omeprazole 40 mg capsule,delayed 40 mg PO QDAY 5 12/11/24 release pen needle, diabetic 31 gauge x 12/11/24 12/11/2405/31 (TRUEplus Pen Needle) Previous Rx's ?Medication ?Instructions ?Recorded carvedilol 25 mg tablet 25 mg PO BIDWM 30 days #30 t abs 01/05/25 famotidine 20 mg tablet 20 mg PO QDAY 30 days #30 ta bs 01/05/25 ferrous sulfate 325 mg (65 mg 325 mg PO DAILY 30 days #30 tabs 01/05/25 iron) tablet,delayed release hydralazine 50 mg tablet 50 mg PO TID 30 days #90 tab s 01/05/25 hydroxyzine HCl 25 mg tablet 25 mg PO HS 30 days #30 t abs 01/05/25 insulin glargine 100 unit/mL (3 18 unit (0.18 mL) subc ut QPM #15 mL 01/05/25 mL) subcutaneous pen (Lantus Solostar U-100 Insulin) insulin lispro 100 unit/mL See Protocol subcut USEASDI RECTD 01/05/25 subcutaneous pen (Admelog SoloStar #15 mL U-100 Insulin lispro) pen needle, diabetic 31 gauge x #100 ea 01/05/2505/31 (CareFine Pen Needle) ondansetron 4 mg disintegrating 4 mg PO Q8H PRN nausea and 01/10/25 tablet vomiting #14 tabs polyethylene glycol 3350 17 4 g PO QDAY #119 grams gram/dose oral powder (Miralax) sennosides 8.6 mg tablet (senna) 8.6 mg PO QDAY PRN co nstipation 01/10/25 #30 tabs hydrocodone 10 mg-acetaminophen 1 tab PO Q6H PRN pain #20 tabs 01/24/25 325 mg tablet Allergies Allergy/AdvReac Type Severity Reaction Status Date / Time No Known Allergies Allergy Verified 01/10/25 09:47 Review of Systems Review of Systems Narrative Review of Systems: Review of system reviewed and within normal limits except mentioned in HPI ED Exam Narrative Physical exam: VITAL SIGNS: Reviewed. GENERAL APPEARANCE: Alert and interactive, follows commands, no acute distress, HEAD AND FACE: Non-traumatic. ENT: PERRL, pink conjunctivitis, eyelid no trauma, Mucous membrane moist. NECK: Supple, nontender, no nuchal rigidity. CHEST: No tenderness, no crepitus, no paradoxical movement, no retractions. LUNGS: Clear, well ventilated, symmetric, no rales, no wheezing, no ronchi, no stridor, good breath sounds bilaterally. HEART: Regular rate, regular rhythm, no murmur, no gallops. ABDOMEN: Soft, positive bowel sounds, nondistended, no guarding, right lower tenderness,, no rebound, no masses, RECTAL: Deferred. GENITAL: Deferred. NEUROLOGICAL: Gross motor function intact sensory function intact, Appropriate for age. MUSCULOSKELETAL: low back tenderness, full range of motion. EXTREMITIES: Nontender, full range of motion. SKIN: Color pink, dry, no rash, no lacerations, no abrasions, no contusions. LYMPHATICS: Deferred. Course Quality Measures none Orders Category Date Time Status CT abdomen pelvis wo con Stat Exams 01/28/25 06:16 Completed CBC Stat Lab 01/28/25 06:37 Completed Comprehensive Metabolic Panel Stat Lab 01/28/25 06:37 Completed HCG,Qualitative Serum Stat Lab 01/28/25 06:37 Completed Lipase Stat Lab 01/28/25 06:37 Completed PT [Prothrombin Time with INR] Stat Lab 01/28/25 06:37 Completed PTT [Partial Thromboplastin Time] Stat Lab 01/28/25 06:37 Completed UA, C/S IF [Urinalysis, C/S if Indicated] Stat Lab 01/28/25 06:39 Completed oxyCODONE/APAP 5/325 [Percocet 5/325] Med 01/28/25 06:16 Discontinued 1 tab PO X1 ONE Vital Signs Vital signs: Vital Signs Temperature 98.2 F 01/28/25 06:01 Pulse Rate 85 01/28/25 06:01 Respiratory Rate 18 01/28/25 06:01 Blood Pressure 101/66 01/28/25 06:01 Pulse Oximetry (%) 100 01/28/25 06:01 Oxygen Delivery Method Room Air 01/28/25 06:01 Abdominal Pain MDM MDM Narrative MDM Narrative:: 44-year-old female ESRD on dialysis with bilateral nephrostomy tubes presents to the emergency department complaints of back pain. This been ongoing for the last few days, pain radiates to the right lower leg. Patient also complaining of right-sided abdominal pain, described as dull ache, severity moderate. Denies any vomiting denies any fever denies any other complaints. Patient told me that her nephrostomy tube is draining normal. Patient denies any saddle anesthesia. Denies any incontinence. Patient's laboratory workup showed slight leukocytosis of 11.5. Urinalysis no UTI creatinine was noted to be 1.8, patient had hemodialysis. Patient potassium was noted to be 3.3 I will not replace patient potassium since patient is a dialysis patient. CT scan of the abdomen and pelvis showed Pulmonary masses as above, recommend CT chest without contrast follow-up Cholelithiasis Bilateral renal calculi Bilateral nephrostomy drainage tubes satisfactory position, no significant hydronephrosis Results discussed with the patient including follow-up with PCP regarding incidental finding of pulmonary masses. Patient agrees with the plan Patient data External records reviewed:: None Clinical information provided by:: patient Social determinants that could affect healthcare access:: none Patient has the following chronic illnesses:: Hypertension, ESRD, How is presenting disease/condition affected by chronic disease/condition?: exacerbated by Evaluation data The following diagnostics were reviewed and interpreted by me:: lab results and radiology exam(s) Lab and/or radiology exams considered but not ordered:: None Interpretation Summary: See results MDM Medications / Prescriptions Medications or Prescriptions considered but not ordered:: None Medication administrations:: Medication Administration History Discontinued Medications Oxycodone/Acetaminophen (Oxycodone/Apap 5/325 Tablet) 1 tab PO X1 ONE Stop: 01/28/25 06:17 Last Admin: 01/28/25 06:22 Dose: 1 tab Documented By: CORDELIA Oxycodone Consultations Consultation(s) initiated? (list below): No Diagnosis Differential diagnosis abdominal pain: abdominal pain and other (Back pain, UTI) Most likely diagnosis given after review of the tests above:: Back pain, abdominal pain Admission Indicated Admission indicated?: not indicated Admission Request Was there a request for admission?: No Disposition Plan Disposition Plan: Discharge Discharge Attestation Discharge Attestation: The patient and all family members were given an opportunity to ask questions and understood the discharge instructions. Discharge instructions specifically effects, indications for sooner follow up or return to the emergency department, and the expected course of current diagnosis. Patient condition: Stable Discharge Plan Plan Patient Disposition: HOME (Self Care) Discharge Disposition comment: stable Prescriptions/Referrals Prescriptions/Med Rec: No Action omeprazole 40 mg capsule,delayed release(DR/EC) 40 mg PO QDAY (DME) pen needle, diabetic [TRUEplus Pen Needle] 31 gauge x 1/4 needle buspirone 10 mg tablet 10 mg PO HS Patient Comments: TAKE 1 TABLET BY MOUTH ONCE DAILY AT BEDTIME (DME) Accu-Chek Guide test strips Strip Patient Comments: USE 1 STRIP TO CHECK GLUCOSE THREE TIMES DAILY (DME) lancets [Accu-Chek Softclix Lancets] Misc Patient Comments: USE 1 TO CHECK GLUCOSE THREE TIMES DAILY insulin lispro 100 unit/mL insulin pen 5 unit SUBCUT TID Patient Comments: INJECT 5 UNITS SUBCUTANEOUSLY THREE TIMES DAILY BEFORE MEALS carvedilol 25 mg tablet 25 mg PO BIDWM 30 Days Qty: 30 0RF famotidine 20 mg Tablet 20 mg PO QDAY 30 Days Qty: 30 0RF ferrous sulfate 325 mg (65 mg iron) Tablet,Delayed Release (Dr/Ec) 325 mg PO DAILY 30 Days Qty: 30 0RF hydralazine 50 mg tablet 50 mg PO TID 30 Days Qty: 90 0RF hydroxyzine HCl 25 mg Tablet 25 mg PO HS 30 Days Qty: 30 0RF insulin glargine [Lantus Solostar U-100 Insulin] 100 unit/mL (3 mL) insulin pen 18 unit subcut QPM Qty: 15 0RF insulin lispro [Admelog SoloStar U-100 Insulin] 100 unit/mL insulin pen See Protocol subcut USEASDIRECTD Qty: 15 0RF Protocol: Insulin Corrective High-Dose Regimen Condition: Fingerstick Blood Glucose Dose/Route: Insulin Units Condition: 141-180 mg/dl Dose/Route: 6 units/SQ Condition: 181-220 mg/dl Dose/Route: 8 units/SQ Condition: 221-260 mg/dl Dose/Route: 10 units/SQ Condition: 261-300 mg/dl Dose/Route: 12 units/SQ Condition: 301-350 mg/dl Dose/Route: 14 units/SQ Condition: 351-400 mg/dl Dose/Route: 16 units/SQ Condition: greater than 400 mg/dl Dose/Route: 18 units/SQ (DME) pen needle, diabetic [CareFine Pen Needle] 31 gauge x 1/4 needle See Rx Instructions .Route Qty: 100 0RF Rx Instructions: As directed polyethylene glycol 3350 [Miralax] 17 gram/dose powder 4 g PO QDAY Qty: 119 0RF sennosides [senna] 8.6 mg tablet 8.6 mg PO QDAY PRN (Reason: constipation) Qty: 30 0RF ondansetron 4 mg tablet,disintegrating 4 mg PO Q8H PRN (Reason: nausea and vomiting) Qty: 14 0RF hydrocodone-acetaminophen 10-325 mg tablet 1 tab PO Q6H MDD 4 PRN (Reason: pain) Qty: 20 0RF Referrals: Stan Cedillo MD [Primary Care Provider] - In 1 week Problem List Clinical Impression: Abdominal pain, Back pain Patient/Caregiver Discharge Instructions Discharge Activity: activity as tolerated Education Materials: Abdominal Pain Additional Instructions: Thank you for the opportunity for serving you today. You are stable for discharged . You are advised to: Follow-up with your PCP in 1 to 2 days Return to ED for worsening of symptoms Increase oral fluids Continue taking your [place], please take your laxative as needed for constipation. Please follow-up with your PCP regarding your incidental finding of pulmonary nodules. Your abdominal pain could be related to your constipation secondary to taking [place]. Increase fiber in the diet Print Language: Irish Stand Alone Forms: Nina Award Info., Patient Portal Info Letter PA/MCKENNA Supervising Physician MUSTAPHA/MCKENNA Supervising Physician: MD Alex
== END 2025-01-28 11:55 | disposition home or self-care (01) ==
PROVIDERS: Nurse Practitioner Primary Care; Emergency Provider Emergency Medicine; PCP Family Medicine
DX: M54.9 Dorsalgia, unspecified (principal); R10.9 Unspecified abdominal pain; N18.6 End stage renal disease; Z99.2 Dependence on renal dialysis
CPT/HCPCS: 36415; 74176; 80053; 81001; 83690; 84703; 85025; 85610; 85730; 99283; A9270

== ENCOUNTER 2025-02-02 01:59 | Emergency (ER) | payer MEDICAID, SELFPAY ==
[2025-02-02 02:01] VITALS: BMI 31.6
[2025-02-02 02:07] VITALS: BP 136/84; PULSE 79; RESP 18; TEMP 36.9; O2SAT 100
--- NOTE | 2025-02-02 02:09 | PD.EDRME ---
Rapid Medical Screening Exam RME Arrival date/time: 02/02/25 01:59 This is a case of 44 yeal old female with history ESRD on dialysis with bilateral nephrostomy tubes came in in the emergency room due to abdominal pain radiating to the flank for 3 days with nausea vomiting worsening of the symptoms this patient decided to start consult here in the emergency room Chief Complaint: Abdominal Pain Time Seen by Provider: 02/02/25 02:07 Vital signs: Vital Signs Temperature 98.4 F 02/02/25 02:07 Pulse Rate 79 02/02/25 02:07 Respiratory Rate 18 02/02/25 02:07 Blood Pressure 136/84 H 02/02/25 02:07 Pulse Oximetry (%) 100 02/02/25 02:07 Oxygen Delivery Method Room Air 02/02/25 02:07
--- NOTE | 2025-02-02 02:25 | PD.EDABDPN ---
ED Abdominal Pain RME/HPI General Chief Complaint: Abdominal Pain Stated complaint: RIGHT LOWER ABD PAIN Time seen by provider: 02/02/25 02:07 Arrival date/time: 02/02/25 01:59 RME / HPI RME / HPI narrative: 02/02/25 01:59 This is a case of 44 yeal old female with history ESRD on dialysis with bilateral nephrostomy tubes came in in the emergency room due to abdominal pain radiating to the flank for 3 days with nausea vomiting worsening of the symptoms this patient decided to start consult here in the emergency room DR. BUTCHER MAIN ED EVALUATION: 44 y/o female with Hx of ESRD with Dialysis and BL Nephrostomy Tubes presents to ED c/o worsening RLQ abdominal pain that radiates down the right thigh to the knee x 1 day. This is patient's typical pain that she has been experiencing for months. Patient was prescribed NORCO for pain. She undergoes dialysis on Tuesdays and Saturdays. She reports beng compliant with her dialysis treatments. Pain is thought to be caused by a mass near the bladder that she was told was benign. Related Data Home Medications ?Medication ?Instructions ?Recorded ?Confirmed blood sugar diagnostic (Accu-Chek 12/11/24 12/11/24 Guide test strips) buspirone 10 mg tablet 10 mg PO HS 12/11/24 12/11/24 insulin lispro 100 unit/mL 5 unit subcut TID 12/11/24 12/11/24 subcutaneous pen lancets (Accu-Chek Softclix 12/11/24 12/11/24 Lancets) omeprazole 40 mg capsule,delayed 40 mg PO QDAY 12/11/24 12/11/24 release pen needle, diabetic 31 gauge x 12/11/24 12/11/2405/31 (TRUEplus Pen Needle) Previous Rx's ?Medication ?Instructions ?Recorded carvedilol 25 mg tablet 25 mg PO BIDWM 30 days #30 tabs 01/05/25 famotidine 20 mg tablet 20 mg PO QDAY 30 days #30 tabs 01/05/25 ferrous sulfate 325 mg (65 mg 325 mg PO DAILY 30 days #30 tabs 01/05/25 iron) tablet,delayed release hydralazine 50 mg tablet 50 mg PO TID 30 days #90 tabs 01/05/25 hydroxyzine HCl 25 mg tablet 25 mg PO HS 30 days #30 tabs 01/05/25 insulin glargine 100 unit/mL (3 18 unit (0.18 mL) subcut QPM #15 mL 01/05/25 mL) subcutaneous pen (Lantus Solostar U-100 Insulin) insulin lispro 100 unit/mL See Protocol subcut USEASDIRECTD 01/05/25 subcutaneous pen (Admelog SoloStar #15 mL U-100 Insulin lispro) pen needle, diabetic 31 gauge x #100 ea 01/05/2505/31 (CareFine Pen Needle) ondansetron 4 mg disintegrating 4 mg PO Q8H PRN nausea and 01/10/25 tablet vomiting #14 tabs polyethylene glycol 3350 17 4 g PO QDAY #119 grams 01/10/25 gram/dose oral powder (Miralax) sennosides 8.6 mg tablet (senna) 8.6 mg PO QDAY PRN constipation 01/10/25 #30 tabs hydrocodone 10 mg-acetaminophen 1 tab PO Q6H PRN pain #20 tabs 01/24/25 325 mg tablet morphine 15 mg immediate release 15 mg PO Q6H PRN pain #20 tabs 02/02/25 tablet Allergies Allergy/AdvReac Type Severity Reaction Status Date / Time No Known Allergies Allergy Verified 02/02/25 02:00 Review of Systems Review of Systems Systems Reviewed: All systems reviewed, normal except as documented Past Medical History Past Medical History NEUROLOGIC: Positive Migraine CARDIAC: Positive Hypertension REPRODUCTIVE: Positive Previous Pregnancies ENDOCRINE: Positive Diabetes Mellitus Type 2 PSYCHO/SOCIAL: Positive Anxiety OTHER HISTORY: Positive Blood Transfusions, Blood Transfusion Reaction and Cancer Family History FAMILY HISTORY: Positive Family Cardiac Disorders Surgical History SURGICAL: Positive Section ED Exam Narrative Physical exam: Generally patient is alert in mild distress secondary to her right thigh pain which is chronic. She is chronically ill-appearing., Chest shows right upper chest Vas-Cath to be in place, extremities show no swelling to the lower extremity with tenderness to palpation to the inner aspect of the right thigh as well as to the anterior aspect of the right thigh which is chronic for the patient. Musculoskeletal exam shows bilateral nephrostomy tubes to be in place. Abdomen is soft mild diffuse tenderness without rebound., Heart regular rate and rhythm, lungs are clear to auscultation equal bilaterally, neurologic exam shows [place] Coma Scale of 15 Course Quality Measures none Orders Category Date Time Status Insert IV NOW Care 02/02/25 02:21 Active CBC Stat Lab 02/02/25 02:20 Completed Comprehensive Metabolic Panel Stat Lab 02/02/25 02:20 Completed HCG Qualitative,Urine Stat Lab 02/02/25 02:38 Completed Lipase Stat Lab 02/02/25 02:20 Completed Urinalysis Stat Lab 02/02/25 02:38 Completed Morphine* Inj Med 02/02/25 02:27 Discontinued 4 mg IVP X1 ONE Vital Signs Vital signs: Vital Signs Temperature 98.4 F 02/02/25 02:07 Pulse Rate 79 02/02/25 02:07 Respiratory Rate 18 02/02/25 02:07 Blood Pressure 136/84 H 02/02/25 02:07 Pulse Oximetry (%) 100 02/02/25 02:07 Oxygen Delivery Method Room Air 02/02/25 02:07 Abdominal Pain MDM MDM Narrative MDM Narrative:: Scribe Attestation: Essie Garibay am scribing for and in the presence of Dr. Butcher. Provider Notation: Although this document has been carefully reviewed, there may still be some phonetic and other typographical errors. These errors are purely grammatical due to imperfections in the software program and should not be construed in any way to compromise the substance of the patient's medical care during this visit. Patient is essentially here for pain control. I interpreted all labs. Potassium is normal. Patient's next dialysis appointment is tomorrow. She was given morphine 4 mg IV with marked benefit. She will be discharged on morphine to be taken as prescribed. Follow-up with her doctor for further treatment and evaluation. Patient data External records reviewed:: [facility] previous records (Reviewed prior ED records from 01/28/25. Patient was seen for Abdominal pain.) Clinical information provided by:: patient Social determinants that could affect healthcare access:: none Patient has the following chronic illnesses:: Migraine, Hypertension, Diabetes Mellitus Type 2, Anxiety How is presenting disease/condition affected by chronic disease/condition?: exacerbated by Evaluation data The following diagnostics were reviewed and interpreted by me:: lab results Lab and/or radiology exams considered but not ordered:: None Interpretation Summary: See MDM above Medications / Prescriptions Medications or Prescriptions considered but not ordered:: None Medication administrations:: Medication Administration History Discontinued Medications Morphine Sulfate (Morphine Sulf Inj 4 Mg/Ml Vial) 4 mg IVP X1 ONE Stop: 02/02/25 02:28 Last Admin: 02/02/25 02:33 Dose: 4 mg Documented By: BD See above if any Consultations Consultation(s) initiated? (list below): No Diagnosis Differential diagnosis abdominal pain: calculus of kidney (Nephrostomy Tube Blockage, Urinary Retention) and other (Cystitis, Pyelonephritis, Appendicitis) Most likely diagnosis given after review of the tests above:: none Admission Indicated Admission indicated?: not indicated Explain why admission is indicated or not indicated:: Patient does not meet admission criteria Admission Request Was there a request for admission?: No Disposition Plan Disposition Plan: Discharge Discharge Attestation Discharge Attestation: The patient and all family members were given an opportunity to ask questions and understood the discharge instructions. Discharge instructions specifically effects, indications for sooner follow up or return to the emergency department, and the expected course of current diagnosis. Patient condition: Stable Discharge Plan Plan Patient Disposition: HOME (Self Care) Prescriptions/Referrals Prescriptions/Med Rec: New morphine 15 mg tablet 15 mg PO Q6H MDD 4 PRN (Reason: pain) Qty: 20 0RF No Action omeprazole 40 mg capsule,delayed release(DR/EC) 40 mg PO QDAY (DME) pen needle, diabetic [TRUEplus Pen Needle] 31 gauge x 1/4 needle buspirone 10 mg tablet 10 mg PO HS Patient Comments: TAKE 1 TABLET BY MOUTH ONCE DAILY AT BEDTIME (DME) Accu-Chek Guide test strips Strip Patient Comments: USE 1 STRIP TO CHECK GLUCOSE THREE TIMES DAILY (DME) lancets [Accu-Chek Softclix Lancets] [facility] [place] Patient Comments: USE 1 TO CHECK GLUCOSE THREE TIMES DAILY insulin lispro 100 unit/mL insulin pen 5 unit SUBCUT TID Patient Comments: INJECT 5 UNITS SUBCUTANEOUSLY THREE TIMES DAILY BEFORE MEALS carvedilol 25 mg tablet 25 mg PO BIDWM 30 Days Qty: 30 0RF famotidine 20 mg Tablet 20 mg PO QDAY 30 Days Qty: 30 0RF ferrous sulfate 325 mg (65 mg iron) Tablet,Delayed Release (Dr/Ec) 325 mg PO DAILY 30 Days Qty: 30 0RF hydralazine 50 mg tablet 50 mg PO TID 30 Days Qty: 90 0RF hydroxyzine HCl 25 mg Tablet 25 mg PO HS 30 Days Qty: 30 0RF insulin glargine [Lantus Solostar U-100 Insulin] 100 unit/mL (3 mL) insulin pen 18 unit subcut QPM Qty: 15 0RF insulin lispro [Admelog SoloStar U-100 Insulin] 100 unit/mL insulin pen See Protocol subcut USEASDIRECTD Qty: 15 0RF Protocol: Insulin Corrective High-Dose Regimen Condition: Fingerstick Blood Glucose Dose/Route: Insulin Units Condition: 141-180 mg/dl Dose/Route: 6 units/SQ Condition: 181-220 mg/dl Dose/Route: 8 units/SQ Condition: 221-260 mg/dl Dose/Route: 10 units/SQ Condition: 261-300 mg/dl Dose/Route: 12 units/SQ Condition: 301-350 mg/dl Dose/Route: 14 units/SQ Condition: 351-400 mg/dl Dose/Route: 16 units/SQ Condition: greater than 400 mg/dl Dose/Route: 18 units/SQ (DME) pen needle, diabetic [CareFine Pen Needle] 31 gauge x 1/4 needle See Rx Instructions .Route Qty: 100 0RF Rx Instructions: As directed polyethylene glycol 3350 [Miralax] 17 gram/dose powder 4 g PO QDAY Qty: 119 0RF sennosides [senna] 8.6 mg tablet 8.6 mg PO QDAY PRN (Reason: constipation) Qty: 30 0RF ondansetron 4 mg tablet,disintegrating 4 mg PO Q8H PRN (Reason: nausea and vomiting) Qty: 14 0RF hydrocodone-acetaminophen 10-325 mg tablet 1 tab PO Q6H MDD 4 PRN (Reason: pain) Qty: 20 0RF Referrals: Stan Cedillo MD [Primary Care Provider, Family Practice] - In 1 week Problem List Clinical Impression: Acute pain Patient/Caregiver Discharge Instructions Print Language: Zambian Stand Alone Forms: Nina Award Info., Patient Portal Info Letter
[2025-02-02] MEDS: MORPHINE SULF INJ 4 MG/ML VIAL IVP (02:33)
[2025-02-02 02:42] LABS: Basophils # (Auto) 0.1 Thou/mm3 (0.0-0.2); Basophils % (Auto) 1 % (0-2.5); Eosinophils # (Auto) 0.4 Thou/mm3 (0.0-0.5); Eosinophils % (Auto) 4 % (0-10); Hematocrit 29.5 % (36.0-46.0); Hemoglobin 9.1 g/dL (12.0-16.0); Immature Granulocytes Auto 0.04 Thou/mm3 (0.00-0.00); Lymphocytes # (Auto) 2.8 Thou/mm3 (1.0-4.8); Lymphocytes % (Auto) 26 % (10-50); Mean Corpuscular HGB Conc 30.8 g/dl (31.0-37.0); Mean Corpuscular Hemoglobin 25.8 pg (25.0-35.0); Mean Corpuscular Volume 84 fL (80-100); Monocytes # (Auto) 0.5 Thou/mm3 (0.0-0.8); Monocytes % (Auto) 5 % (0-12); Neutrophils # (Auto) 7.0 Thou/mm3 (1.8-7.7); Neutrophils % (Auto) 65 % (37-80); Nucleated Red Blood Cell # 0.00 Thou/mm3 (0.00-0.00); Nucleated Red Blood Cell % 0 /100 WBC (0); Platelet Count 419 Thou/mm3 (140-440); RDW Standard Deviation 51.4 fL (36.4-46.3); Red Blood Count 3.53 Miln/mm3 (4.00-5.20); White Blood Count 10.8 Thou/mm3 (3.6-11.0)
[2025-02-02 02:43] LABS: Collection Type, Urine Clean Catch; Squamous Epithelial Cell,Urine 0 /hpf (0-5)
[2025-02-02 02:51] LABS: HCG Qualitative,Urine Negative
[2025-02-02 02:56] LABS: Bacteria,Urine Rare; Bilirubin,Urine Negative (Negative); Blood,Urine 1+ (Negative); Clarity,Urine Turbid (Clear/Hazy); Color,Urine Lt-Yellow (Lt Yel-Yel); Glucose, Urine 1+ (Negative); Ketones,Urine Negative (Negative); Leukocyte Esterase,Urine Positive (Negative); Nitrite,Urine Negative (Negative); PH,Urine 7.0 (5.0-7.0); Protein,Urine 2+ (Neg - Trace); RBC,Urine 37 /hpf (0-3); Specific Gravity,Urine 1.010 (1.001-1.035); Urobilinogen,Urine Negative mg/dL (0.0-1.0); WBC,Urine 7 /hpf (0-5)
[2025-02-02 02:57] LABS: Alanine Aminotransferase 12 U/L (10-49); Albumin, Serum 4.4 gm/dL (3.5-5.0); Anion Gap 11 (7-16); Aspartate Amino Transferase 17 U/L (0-34); BUN/Creatinine Ratio 8 Ratio (12-20); Bilirubin,Total 0.2 mg/dL (0.3-1.2); Blood Urea Nitrogen 16 mg/dL (9-23); Calcium 9.2 mg/dL (8.3-10.6); Calcium (Corrected) 9.2 mg/dL (8.5-10.1); Carbon Dioxide 26.0 mMol/L (20.0-31.0); Chloride 100 mMol/L (98-107); Creatinine (Component) 1.9 mg/dL (0.6-1.3); Estimated Creatinine Clearance 37.4 mL/min (>60); Globulin 3.3 gm/dL (2.3-3.5); Glucose 232 mg/dL (74-106); Osmolality,Calculated 282 (275-295); Potassium 3.9 mMol/L (3.4-5.1); Sodium 137 mMol/L (136-145); Total Protein 7.7 gm/dL (5.7-8.2); eGFR 33 See Note
[2025-02-02 02:58] LABS: Albumin/Globulin Ratio 1.3 (1.2-2.2); Alkaline Phosphatase 142 U/L (46-116); Lipase 78 U/L (12-53)
[2025-02-02 03:00] VITALS: BP 146/83; PULSE 73; RESP 23; TEMP 36.9; O2SAT 100
== END 2025-02-02 03:22 | disposition home or self-care (01) ==
PROVIDERS: Nurse Practitioner Family; Emergency Provider Emergency Medicine; PCP Family Medicine
DX: R10.31 Right lower quadrant pain (principal)
CPT/HCPCS: 36415; 80053; 81001; 81025; 83690; 85025; 96374; 99283; J2270

== ENCOUNTER 2025-02-03 09:37 | Emergency (ER) | payer MEDICAID, SELFPAY ==
[2025-02-03 09:39] VITALS: PULSE 86; RESP 20; O2SAT 96
[2025-02-03 09:40] VITALS: BP 120/70; PULSE 75; RESP 20; TEMP 36.6; O2SAT 100
--- NOTE | 2025-02-03 10:20 | PC.NURSE ---
Pt. here from dialysis to room 12, pt. has dialysis access to right upper chest, pt. was having her dialysis today and was about 20 minutes from being finished when she started having pain to the back of her neck, and to right leg. Pt. is crying holding top of right leg. Pt. has 2 nephrostomy tubes one on the right side and one on the left side. Pt. states she has had the leg pain before but not the pain to the back her neck.
[2025-02-03] MEDS: ACETAMINOPHEN IVPB 1,000 MG/100 ML VIAL 250 MG IV (10:42)
[2025-02-03 10:51] LABS: Basophils # (Auto) 0.1 Thou/mm3 (0.0-0.2); Basophils % (Auto) 1 % (0-2.5); Eosinophils # (Auto) 0.3 Thou/mm3 (0.0-0.5); Eosinophils % (Auto) 3 % (0-10); Hematocrit 33.4 % (36.0-46.0); Hemoglobin 10.2 g/dL (12.0-16.0); Immature Granulocytes Auto 0.06 Thou/mm3 (0.00-0.00); Lymphocytes # (Auto) 2.8 Thou/mm3 (1.0-4.8); Lymphocytes % (Auto) 26 % (10-50); Mean Corpuscular HGB Conc 30.5 g/dl (31.0-37.0); Mean Corpuscular Hemoglobin 25.3 pg (25.0-35.0); Mean Corpuscular Volume 83 fL (80-100); Monocytes # (Auto) 0.5 Thou/mm3 (0.0-0.8); Monocytes % (Auto) 4 % (0-12); Neutrophils # (Auto) 6.9 Thou/mm3 (1.8-7.7); Neutrophils % (Auto) 65 % (37-80); Nucleated Red Blood Cell # 0.00 Thou/mm3 (0.00-0.00); Nucleated Red Blood Cell % 0 /100 WBC (0); Platelet Count 482 Thou/mm3 (140-440); RDW Standard Deviation 51.4 fL (36.4-46.3); Red Blood Count 4.03 Miln/mm3 (4.00-5.20); White Blood Count 10.6 Thou/mm3 (3.6-11.0)
--- NOTE | 2025-02-03 11:06 | PD.EDADULT ---
ED General RME/HPI General Chief complaint: Extremity Problem,Nontraumatic Stated complaint: H/A AND LEG PAIN Time Seen by Provider: 02/03/25 10:13 Arrival date/time: 02/03/25 09:37 RME / HPI RME / HPI narrative: 44 year old female with history of hypertension, diabetes, GERD, non-malignant bladder mass, bilateral hydronephrosis s/p bilateral nephrostomy tube placement, acute renal failure on HD (started 01/06/2025) presents to the ED BIBA from the dialysis center for multiple complaints. Reports chronic pain to bilateral thighs and lower abdomen. However, while receiving dialysis, noted the pain worsening and accompanied by my nerves were hurting really bad to the back of her neck. No other associated symptoms reported. Denies fevers, chills, sweats, chest pain, cough, shortness of breath, vomiting, diarrhea. Related Data Home Medications ?Medication ?Instructions ?Recorded ?Confirmed blood sugar diagnostic (Accu-Chek 12/11/24 12/11/24 Guide test strips) buspirone 10 mg tablet 10 mg PO HS 12/11/24 12/11/24 insulin lispro 100 unit/mL 5 unit subcut TID 12/11/24 12/11/24 subcutaneous pen lancets (Accu-Chek Softclix 12/11/24 12/11/24 Lancets) omeprazole 40 mg capsule,delayed 40 mg PO QDAY 12/11/24 12/11/24 release pen needle, diabetic 31 gauge x 12/11/24 12/11/24 1/ (TRUEplus Pen Needle) Previous Rx's ?Medication ?Instructions ?Recorded carvedilol 25 mg tablet 25 mg PO BIDWM 30 days #30 tabs 01/05/25 famotidine 20 mg tablet 20 mg PO QDAY 30 days #30 tabs 01/05/25 ferrous sulfate 325 mg (65 mg 325 mg PO DAILY 30 days #30 tabs 01/05/25 iron) tablet,delayed release hydralazine 50 mg tablet 50 mg PO TID 30 days #90 tabs 01/05/25 hydroxyzine HCl 25 mg tablet 25 mg PO HS 30 days #30 tabs 01/05/25 insulin glargine 100 unit/mL (3 18 unit (0.18 mL) subcut QPM #15 mL 01/05/25 mL) subcutaneous pen (Lantus Solostar U-100 Insulin) insulin lispro 100 unit/mL See Protocol subcut USEASDIRECTD 01/05/25 subcutaneous pen (Admelog SoloStar #15 mL U-100 Insulin lispro) pen needle, diabetic 31 gauge x #100 ea 01/05/2505/31 (CareFine Pen Needle) ondansetron 4 mg disintegrating 4 mg PO Q8H PRN nausea and 01/10/25 tablet vomiting #14 tabs polyethylene glycol 3350 17 4 g PO QDAY #119 grams 01/10/25 gram/dose oral powder (Miralax) sennosides 8.6 mg tablet (senna) 8.6 mg PO QDAY PRN constipation 01/10/25 #30 tabs hydrocodone 10 mg-acetaminophen 1 tab PO Q6H PRN pain #20 tabs 01/24/25 325 mg tablet morphine 15 mg immediate release 15 mg PO Q6H PRN pain #20 tabs 02/02/25 tablet Allergies Allergy/AdvReac Type Severity Reaction Status Date / Time No Known Allergies Allergy Verified 02/03/25 09:45 Review of Systems Review of Systems Systems Reviewed: All systems reviewed, normal except as documented Past Medical History Past Medical History NEUROLOGIC: Positive Migraine CARDIAC: Positive Cardiac Disorders and Hypertension REPRODUCTIVE: Positive Previous Pregnancies ENDOCRINE: Positive Diabetes Mellitus Type 2 PSYCHO/SOCIAL: Positive Anxiety OTHER HISTORY: Positive Blood Transfusions, Blood Transfusion Reaction and Cancer Family History FAMILY HISTORY: Positive Family Cardiac Disorders Surgical History SURGICAL: Positive Section Social History SMOKING STATUS: Never smoker SUBSTANCE USE: does not use ED Exam Narrative Physical exam: See MDM Course Quality Measures none Orders Category Date Time Status CBC Stat Lab 02/03/25 10:15 Completed CMP [Comprehensive Metabolic Panel] Stat Lab 02/03/25 10:15 Completed Magnesium Stat Lab 02/03/25 10:15 Completed Phosphorous Stat Lab 02/03/25 10:15 Completed Acetaminophen Ivpb [Ofirmev Inj] Med 02/03/25 10:31 Discontinued 1,000 mg in 100 ml IV NOW Vital Signs Vital signs: Vital Signs Temperature 97.8 F 02/03/25 09:40 Pulse Rate 75 02/03/25 09:40 Respiratory Rate 20 02/03/25 09:40 Blood Pressure 120/70 02/03/25 09:40 Pulse Oximetry (%) 100 02/03/25 09:40 Oxygen Delivery Method Room Air 02/03/25 09:40 Discharge Plan Plan Patient Disposition: HOME (Self Care) Discharge Disposition comment: Stable for discharge home Patient condition on transfer: Stable Prescriptions/Referrals Prescriptions/Med Rec: No Action omeprazole 40 mg capsule,delayed release(DR/EC) 40 mg PO QDAY (DME) pen needle, diabetic [TRUEplus Pen Needle] 31 gauge x 1/4 needle buspirone 10 mg tablet 10 mg PO HS Patient Comments: TAKE 1 TABLET BY MOUTH ONCE DAILY AT BEDTIME (DME) Accu-Chek Guide test strips Strip Patient Comments: USE 1 STRIP TO CHECK GLUCOSE THREE TIMES DAILY (DME) lancets [Accu-Chek Softclix Lancets] Misc Patient Comments: USE 1 TO CHECK GLUCOSE THREE TIMES DAILY insulin lispro 100 unit/mL insulin pen 5 unit SUBCUT TID Patient Comments: INJECT 5 UNITS SUBCUTANEOUSLY THREE TIMES DAILY BEFORE MEALS carvedilol 25 mg tablet 25 mg PO BIDWM 30 Days Qty: 30 0RF famotidine 20 mg Tablet 20 mg PO QDAY 30 Days Qty: 30 0RF ferrous sulfate 325 mg (65 mg iron) Tablet,Delayed Release (Dr/Ec) 325 mg PO DAILY 30 Days Qty: 30 0RF hydralazine 50 mg tablet 50 mg PO TID 30 Days Qty: 90 0RF hydroxyzine HCl 25 mg Tablet 25 mg PO HS 30 Days Qty: 30 0RF insulin glargine [Lantus Solostar U-100 Insulin] 100 unit/mL (3 mL) insulin pen 18 unit subcut QPM Qty: 15 0RF insulin lispro [Admelog SoloStar U-100 Insulin] 100 unit/mL insulin pen See Protocol subcut USEASDIRECTD Qty: 15 0RF Protocol: Insulin Corrective High-Dose Regimen Condition: Fingerstick Blood Glucose Dose/Route: Insulin Units Condition: 141-180 mg/dl Dose/Route: 6 units/SQ Condition: 181-220 mg/dl Dose/Route: 8 units/SQ Condition: 221-260 mg/dl Dose/Route: 10 units/SQ Condition: 261-300 mg/dl Dose/Route: 12 units/SQ Condition: 301-350 mg/dl Dose/Route: 14 units/SQ Condition: 351-400 mg/dl Dose/Route: 16 units/SQ Condition: greater than 400 mg/dl Dose/Route: 18 units/SQ (DME) pen needle, diabetic [CareFine Pen Needle] 31 gauge x 1/4 needle See Rx Instructions .Route Qty: 100 0RF Rx Instructions: As directed morphine 15 mg tablet 15 mg PO Q6H MDD 4 PRN (Reason: pain) Qty: 20 0RF polyethylene glycol 3350 [Miralax] 17 gram/dose powder 4 g PO QDAY Qty: 119 0RF sennosides [senna] 8.6 mg tablet 8.6 mg PO QDAY PRN (Reason: constipation) Qty: 30 0RF ondansetron 4 mg tablet,disintegrating 4 mg PO Q8H PRN (Reason: nausea and vomiting) Qty: 14 0RF hydrocodone-acetaminophen 10-325 mg tablet 1 tab PO Q6H MDD 4 PRN (Reason: pain) Qty: 20 0RF Referrals: Stan Cedillo MD [Primary Care Provider, Family Practice] - In 1 week Christina Pineda MD [Physician, Nephrology] - In 1 week Problem List Clinical Impression: Chronic pain, Neck pain Patient/Caregiver Discharge Instructions Discharge Activity: activity as tolerated Diet Instructions: No restrictions Education Materials: ED Chronic Pain, ED Neck Pain Additional Instructions: Today you were seen in the emergency department for your chronic leg pain as well as neck pain. Luckily all of your tests here in the ER are normal and your vital signs have been stable and normal throughout. This is very reassuring. Today you received 1000 mg Ofirmev IV for pain. You should return to the ER if you have any worsening or any further medical problems. Otherwise you should follow-up with your primary care doctor within the next several days. Print Language: Albanian Stand Alone Forms: Nina Award Info., Patient Portal Info Letter MDM Narrative MDM hospital course: This section includes all my notes and documentations, including HPI, PE, and ED course. King Morrison MD ? HPI: 44 year old female with history of hypertension, diabetes, GERD, non-malignant bladder mass, bilateral hydronephrosis s/p bilateral nephrostomy tube placement, acute renal failure on HD (started 01/06/2025) presents to the ED BIBA from the dialysis center for multiple complaints. Reports chronic pain to bilateral thighs and lower abdomen. However, while receiving dialysis, noted the pain worsening and accompanied by my nerves were hurting really bad to the back of her neck. No other associated symptoms reported. Denies fevers, chills, sweats, chest pain, cough, shortness of breath, vomiting, diarrhea. ? ROS: All negative except as documented in HPI. ? PE: GENERAL APPEARANCE:? alert and oriented x 4, well-developed, well-nourished, no acute distress VITALS: All vitals were reviewed and the pulse ox is 100% on room air, which is normal according to my interpretation. HEENT: Normocephalic, atraumatic; pupils equal, round, reactive to light; EOMI; mucous membranes pink, moist; oropharynx clear NECK: Supple LUNGS: CTABL; no wheezes, no rales, no rhonchi HEART: Regular rate, regular rhythm; normal S1, S2; no murmurs ABDOMEN: non distended; normal BS;? soft, no tenderness, no guarding, no rebound; no masses, no organomegaly, no hernia?? BACK:? Bilateral nephrostomy tubes that are draining yellow urine, no CVA tenderness EXTREMITIES:? atraumatic; no edema NEUROLOGIC: awake; alert and oriented x4; cranial nerves II-XII grossly intact; no focal sensory or motor deficits PSYCHIATRIC:? appropriate mood and affect SKIN: warm, dry, normal color; no rashes ? I reviewed EMS notes. ? I reviewed all diagnostic test results. Blood tests and urine test: ? At this point, diagnoses include: Chronic pain, neck pain ? Treatment here included: 1000 mg Ofirmev IV ? Significant improvement noted. ? Recommended outpatient care. ? Based on my best medical judgment, made decision no further evaluation or treatment indicated at this time. Patient understands and agrees to the customized discharge instructions and printed, see below. ? Discharge instructions from Dr. Morrison: Today you were seen in the emergency department for your chronic leg pain as well as neck pain. Luckily all of your tests here in the ER are normal and your vital signs have been stable and normal throughout. This is very reassuring. Today you received 1000 mg Ofirmev IV for pain. You should return to the ER if you have any worsening or any further medical problems. Otherwise you should follow-up with your primary care doctor within the next several days. Clinical Information Provided by patient and EMS Medical Records Reviewed [facility] and EMS Meds/Rx Considered, not Ordered None Labs/Rad/Tests considered, not Ordered None Chronic Illness/Social Conditions which may negatively complicate care or outcome(s)-explain: None or not applicable EKG EKG not done Lab Interpretation Labs: see narrative above Imaging Imaging interpretation: none Medication Administration(s) Medication Administration History Discontinued Medications Acetaminophen (Ofirmev Inj) 1,000 mg in 100 mls @ 250 mls/hr IV NOW ONE Stop: 02/03/25 10:54 Last Admin: 02/03/25 10:42 Dose: 250 mls/hr Documented By: ED See above Diagnosis Most likely dx, and/or detailed dx discussion: Chronic pain Neck pain Dispositon Disposition: Discharge Home
[2025-02-03 11:10] LABS: Alanine Aminotransferase 16 U/L (10-49); Albumin, Serum 4.7 gm/dL (3.5-5.0); Albumin/Globulin Ratio 1.2 (1.2-2.2); Alkaline Phosphatase 157 U/L (46-116); Anion Gap 13 (7-16); Aspartate Amino Transferase 26 U/L (0-34); BUN/Creatinine Ratio 8 Ratio (12-20); Bilirubin,Total 0.3 mg/dL (0.3-1.2); Blood Urea Nitrogen 11 mg/dL (9-23); Calcium 10.4 mg/dL (8.3-10.6); Calcium (Corrected) 10.4 mg/dL (8.5-10.1); Carbon Dioxide 27.4 mMol/L (20.0-31.0); Chloride 98 mMol/L (98-107); Creatinine (Component) 1.3 mg/dL (0.6-1.3); Globulin 4.0 gm/dL (2.3-3.5); Glucose 145 mg/dL (74-106); Magnesium 1.7 mg/dL (1.6-2.6); Osmolality,Calculated 278 (275-295); Phosphorous 2.3 mg/dL (2.4-5.1); Potassium 3.4 mMol/L (3.4-5.1); Sodium 138 mMol/L (136-145); Total Protein 8.7 gm/dL (5.7-8.2); eGFR 53 See Note
[2025-02-03 12:17] VITALS: BP 139/69; PULSE 68; RESP 17; TEMP 36.9; O2SAT 100
== END 2025-02-03 12:17 | disposition home or self-care (01) ==
PROVIDERS: Emergency Provider Emergency Medicine; PCP Family Medicine
DX: G89.29 Other chronic pain (principal); M54.2 Cervicalgia; E11.9 Type 2 diabetes mellitus without complications; I10 Essential (primary) hypertension
CPT/HCPCS: 36415; 80053; 83735; 84100; 85025; 96365; 99283; J0131

== ENCOUNTER 2025-02-13 20:06 | Inpatient (IN) | payer MEDICAID, SELFPAY ==
[2025-02-13 20:08] VITALS: BMI 31.6
[2025-02-13 20:28] VITALS: BP 113/71; PULSE 89; RESP 19; TEMP 38.6; O2SAT 96
--- NOTE | 2025-02-13 20:53 | PD.EDABDPN ---
ED Abdominal Pain RME/HPI General Chief Complaint: Abdominal Pain Stated complaint: LEFT FLANK PAIN, FEVER,VOMIITING Time seen by provider: 02/13/25 20:43 Arrival date/time: 02/13/25 20:06 RME / HPI RME / HPI narrative: See MDM for Dr. Calvin's HPI documentation. Related Data Home Medications ?Medication ?Instructions ?Recorded ?Confirmed blood sugar diagnostic (Accu-Chek 12/11/24 12/11/24 Guide test strips) buspirone 10 mg tablet 10 mg PO HS 12/11/24 12/11/24 insulin lispro 100 unit/mL 5 unit subcut TID 12/11/24 12/11/24 subcutaneous pen lancets (Accu-Chek Softclix 12/11/24 12/11/24 Lancets) omeprazole 40 mg capsule,delayed 40 mg PO QDAY 12/11/24 12/11/24 release pen needle, diabetic 31 gauge x 12/11/24 12/11/2405/31 (TRUEplus Pen Needle) Previous Rx's ?Medication ?Instructions ?Recorded insulin glargine 100 unit/mL (3 18 unit (0.18 mL) subcut QPM #15 mL 01/05/25 mL) subcutaneous pen (Lantus Solostar U-100 Insulin) insulin lispro 100 unit/mL See Protocol subcut USEASDIRECTD 01/05/25 subcutaneous pen (Admelog SoloStar #15 mL U-100 Insulin lispro) pen needle, diabetic 31 gauge x #100 ea 01/05/2505/31 (CareFine Pen Needle) ondansetron 4 mg disintegrating 4 mg PO Q8H PRN nausea and 01/10/25 tablet vomiting #14 tabs polyethylene glycol 3350 17 4 g PO QDAY #119 grams 01/10/25 gram/dose oral powder (Miralax) sennosides 8.6 mg tablet (senna) 8.6 mg PO QDAY PRN constipation 01/10/25 #30 tabs hydrocodone 10 mg-acetaminophen 1 tab PO Q6H PRN pain #20 tabs 01/24/25 325 mg tablet morphine 15 mg immediate release 15 mg PO Q6H PRN pain #20 tabs 02/02/25 tablet Allergies Allergy/AdvReac Type Severity Reaction Status Date / Time No Known Allergies Allergy Verified 02/13/25 20:08 Review of Systems Review of Systems Systems Reviewed: All systems reviewed, normal except as documented ED Exam Narrative Physical exam: See MDM for Dr. Calvin's physical exam documentation. Course Quality Measures none Orders Category Date Time Status Bedside COVID-19 Antigen Test NOW Care 02/13/25 20:58 Active Bedside Influenza A&B Antigen Test NOW Care 02/13/25 20:58 Completed COVID-19 Screening Questionnaire NOW Care 02/14/25 00:06 Active Decision to Admit X1 Care 02/14/25 00:06 Active Saline [Insert IV] NOW Care 02/13/25 20:[address] abdomen pelvis wo con Stat Exams 02/13/25 21:00 Completed XR chest 1V portable Stat Exams 02/13/25 20:59 Completed BNP [B-Type Natriuretic Peptide] Stat Lab 02/13/25 21:22 Completed Bilirubin,Direct Stat Lab 02/13/25 21:22 Completed Blood Culture (Lab) Stat Lab 02/13/25 21:22 Received CBC Stat Lab 02/13/25 21:22 Completed CMP [Comprehensive Metabolic Panel] Stat Lab 02/13/25 21:22 Completed CRP [C-Reactive Protein] Stat Lab 02/13/25 21:22 Completed ESR [Sed Rate (ESR)] Stat Lab 02/13/25 21:22 Completed HCG,Qualitative Serum Stat Lab 02/13/25 21:22 Completed Hemoglobin A1C [Glycohemoglobin w (eAG)] Stat Lab 02/13/25 21:22 Completed Lactate (Lactic Acid) Stat Lab 02/13/25 21:22 Completed Magnesium Stat Lab 02/13/25 21:22 Completed Procalcitonin Stat Lab 02/13/25 21:22 Completed UA, C/S IF [Urinalysis, C/S if Indicated] Stat Lab 02/13/25 22:10 Completed Urine Culture Stat Lab 02/13/25 22:10 Received Acetaminophen Tab [Tylenol Tab] Med 02/13/25 20:58 Discontinued 650 mg PO X1 ONE Cefepime Inj [Maxipime Inj] 1 gm Med 02/13/25 20:58 Discontinued SODIUM CHLORIDE 0.9% (Popper) [Ns 0.9% (P)] 50 ml IV X1 Fluconazole/Ns 400 mg Ivpb [Diflucan/Ns Ivpb] Med 02/13/25 22:30 Active 400 mg in 200 ml IV X1 HYDROmorphone INJ [Dilaudid Inj] Med 02/13/25 20:58 Discontinued 1 mg IVP X1 ONE Ketorolac Inj [Toradol Inj] Med 02/13/25 20:58 Discontinued 30 mg IVP X1 ONE Magnesium Sulfate 2 GM Ivpb [Magnesium Sulfate Ivpb] Med 02/13/25 23:01 Active 2 gm in 50 ml IV X1 Ondansetron Inj [Zofran Inj] Med 02/13/25 20:58 Discontinued 4 mg IVP X1 ONE Sodium Chloride 0.9% 250 ml [Ns] 250 ml Med 02/13/25 20:58 Discontinued IV 500 mls/hr Vancomycin Inj 1,000 mg Med 02/13/25 20:58 Discontinued Sodium Chloride 0.9% 500 ml [Ns] 500 ml IV X1 Vital Signs Vital signs: Vital Signs Temperature 101.5 F H 02/13/25 20:28 Pulse Rate 89 02/13/25 20:28 Respiratory Rate 19 02/13/25 20:28 Blood Pressure 113/71 02/13/25 20:28 Pulse Oximetry (%) 96 02/13/25 20:28 Oxygen Delivery Method Room Air 02/13/25 20:28 Abdominal Pain MDM MDM Narrative MDM Narrative:: This section includes all my notes and documentations, including HPI, PE, and ED course. Bassem Calvin MD HPI: 44yo female with history of HTN, DM, GERD, non-malignant bladder mass, bilateral hydronephrosis s/p bilateral nephrostomy, acute renal failure on HD (started 01/06/2025) here with subjective fever, chills, body aches, malaise, vomiting, and abdominal/flank pain since yesterday. No other complaints. ROS: All negative except as documented in HPI. Physical Exam: General: Alert and oriented. Appears to be in pain. Fever noted. Eyes: Conjunctivae and lids clear. ENT: No nasal congestion. Neck: Supple. Heart: RRR. Lungs: No respiratory distress. Good air movement. No rhonchi, wheezing, rales. Abdomen: Soft with tenderness, difficult to localize. Normal bowel sounds. No distension. No rebound or guarding. Back: Equivocal left CVA tenderness. Skin: Warm and dry. Neuro: Alert and oriented X 3. I reviewed all diagnostic test results. My interpretation of the chest x-ray is no acute findings. My review of the CT abdomen pelvis report is intact nephrostomy tubes. Blood tests remarkable for WBC 15.6, ESR 85, Na 132, Creatinine 2.0, Mg 1.5, CRP 21.3. UA remarkable for positive nitrite, positive leukocyte esterase, 1210 RBCs, 102 WBCs, 2+ bacteria, and present yeast. COVID/Influenza negative. At this point, diagnoses include: UTI (urinary tract infection) Fever SAPPHIRE (acute kidney injury) Hypomagnesemia Treatment here included: Toradol 30 mg IV Zofran 4 mg IV IV fluid Cefepime 1 g IV Dilaudid 1 g IV Tylenol 650 mg MgSO4 2 gram IV Diflucan 40 mg IV Vancomycin 1 g IV I discussed the case with our hospitalist. About the presentation and exam and diagnostics and treatments here. And need of further care in the hospital. Will accept the patient. Bassem Calvin MD Patient data External records reviewed:: [facility] previous records (Per chart review, patient was seen here on 02/03/25 for chronic pain.) Clinical information provided by:: patient Social determinants that could affect healthcare access:: none Patient has the following chronic illnesses:: HTN, DM, GERD, non-malignant bladder mass, bilateral hydronephrosis s/p bilateral nephrostomy tube placement, acute renal failure on HD (started 01/06/2025) How is presenting disease/condition affected by chronic disease/condition?: exacerbated by Evaluation data The following diagnostics were reviewed and interpreted by me:: lab results and radiology exam(s) Lab and/or radiology exams considered but not ordered:: none Interpretation Summary: I reviewed all diagnostic test results. My interpretation of the chest x-ray is no acute findings. My review of the CT abdomen pelvis report is intact nephrostomy tubes. Blood tests remarkable for WBC 15.6, ESR 85, Na 132, Creatinine 2.0, Mg 1.5, CRP 21.3. UA remarkable for positive nitrite, positive leukocyte esterase, 1210 RBCs, 102 WBCs, 2+ bacteria, and present yeast. COVID/Influenza negative. Medications / Prescriptions Medications or Prescriptions considered but not ordered:: none Medication administrations:: Medication Administration History Fluconazole (Diflucan/Ns Ivpb) 400 mg in 200 mls @ 100 mls/hr IV X1 ONE Stop: 02/14/25 00:29 Last Admin: 02/13/25 22:47 Dose: 100 mls/hr Documented By: CHARLENE Magnesium Sulfate (Magnesium Sulfate Ivpb) 2 gm in 50 mls @ 25 mls/hr IV X1 ONE Stop: 02/14/25 01:00 Last Admin: 02/13/25 23:35 Dose: 25 mls/hr Documented By: CHARLENE Discontinued Medications Acetaminophen (Acetaminophen 325 Mg Tablet) 650 mg PO X1 ONE Stop: 02/13/25 20:59 Last Admin: 02/13/25 21:49 Dose: 650 mg Documented By: CHARLENE Hydromorphone HCl (Hydromorphone Inj 2 Mg/Ml Vial) 1 mg IVP X1 ONE Stop: 02/13/25 20:59 Last Admin: 02/13/25 21:50 Dose: 1 mg Documented By: CHARLENE Cefepime HCl 1 gm/ Sodium (Chloride) 50 mls @ 100 mls/hr IV X1 ONE Stop: 02/13/25 21:27 Last Infusion: 02/13/25 22:24 Dose: Infused Documented By: Admin: 02/13/25 21:50 Dose: 100 mls/hr Documented By: CHARLENE Sodium Chloride (Ns) 250 mls @ 500 mls/hr IV .Q30M ONE Stop: 02/13/25 21:27 Last Infusion: 02/13/25 22:24 Dose: Infused Documented By: Admin: 02/13/25 21:47 Dose: 500 mls/hr Documented By: CHARLENE Vancomycin HCl 1,000 mg/ (Sodium Chloride) 500 mls @ 150 mls/hr IV X1 ONE Stop: 02/14/25 00:17 Last Admin: 02/13/25 22:25 Dose: 150 mls/hr Documented By: CHARLENE Ketorolac Tromethamine (Ketorolac Inj 30 Mg/Ml Vial) 30 mg IVP X1 ONE Stop: 02/13/25 20:59 Last Admin: 02/13/25 21:50 Dose: 30 mg Documented By: CHARLENE Ondansetron HCl (Ondansetron Inj 2 Mg/Ml Inj 2 Ml) 4 mg IVP X1 ONE; Protocol Stop: 02/13/25 20:59 Last Admin: 02/13/25 21:49 Dose: 4 mg Documented By: CHARLENE Treatment here included: Toradol 30 mg IV Zofran 4 mg IV IV fluid Cefepime 1 g IV Dilaudid 1 g IV Tylenol 650 mg MgSO4 2 gram IV Diflucan 40 mg IV Vancomycin 1 g IV Consultations Consultation(s) initiated? (list below): Yes Consultation #1 (Physician, Specialty, Details): I discussed the case with our hospitalist. About the presentation and exam and diagnostics and treatments here. And need of further care in the hospital. Will accept the patient. Diagnosis Differential diagnosis abdominal pain: acute appendicitis, calculus of kidney, constipation, diverticulitis, endometriosis, gastroenteritis, pancreatitis, small bowel obstruction and other (UTI, pyelonephritis, sepsis) Most likely diagnosis given after review of the tests above:: UTI (urinary tract infection), Fever, SAPPHIRE (acute kidney injury), hypomagnesemia Admission Indicated Admission indicated?: indicated Explain why admission is indicated or not indicated:: UTI (urinary tract infection), Fever, SAPPHIRE (acute kidney injury), Hypomagnesemia Admission Request Was there a request for admission?: Yes Admission Attestation Admission request attestation: Discussed case with Hospitalist service regarding admission. Discussed patients ED course, exam findings, labs, and radiology results. The Hospitalist [agrees] to accept the patient for admission. Disposition Plan Disposition Plan: Admit Discharge Plan Plan Patient Disposition: Admit Acute Care w/in Hospital Prescriptions/Referrals Prescriptions/Med Rec: No Action omeprazole 40 mg capsule,delayed release(DR/EC) 40 mg PO QDAY (DME) pen needle, diabetic [TRUEplus Pen Needle] 31 gauge x 1/4 needle buspirone 10 mg tablet 10 mg PO HS Patient Comments: TAKE 1 TABLET BY MOUTH ONCE DAILY AT BEDTIME (DME) Accu-Chek Guide test strips Strip Patient Comments: USE 1 STRIP TO CHECK GLUCOSE THREE TIMES DAILY (DME) lancets [Accu-Chek Softclix Lancets] Misc Patient Comments: USE 1 TO CHECK GLUCOSE THREE TIMES DAILY insulin lispro 100 unit/mL insulin pen 5 unit SUBCUT TID Patient Comments: INJECT 5 UNITS SUBCUTANEOUSLY THREE TIMES DAILY BEFORE MEALS insulin glargine [Lantus Solostar U-100 Insulin] 100 unit/mL (3 mL) insulin pen 18 unit subcut QPM Qty: 15 0RF insulin lispro [Admelog SoloStar U-100 Insulin] 100 unit/mL insulin pen See Protocol subcut USEASDIRECTD Qty: 15 0RF Protocol: Insulin Corrective High-Dose Regimen Condition: Fingerstick Blood Glucose Dose/Route: Insulin Units Condition: 141-180 mg/dl Dose/Route: 6 units/SQ Condition: 181-220 mg/dl Dose/Route: 8 units/SQ Condition: 221-260 mg/dl Dose/Route: 10 units/SQ Condition: 261-300 mg/dl Dose/Route: 12 units/SQ Condition: 301-350 mg/dl Dose/Route: 14 units/SQ Condition: 351-400 mg/dl Dose/Route: 16 units/SQ Condition: greater than 400 mg/dl Dose/Route: 18 units/SQ (DME) pen needle, diabetic [CareFine Pen Needle] 31 gauge x 1/4 needle See Rx Instructions .Route Qty: 100 0RF Rx Instructions: As directed morphine 15 mg tablet 15 mg PO Q6H MDD 4 PRN (Reason: pain) Qty: 20 0RF polyethylene glycol 3350 [Miralax] 17 gram/dose powder 4 g PO QDAY Qty: 119 0RF sennosides [senna] 8.6 mg tablet 8.6 mg PO QDAY PRN (Reason: constipation) Qty: 30 0RF ondansetron 4 mg tablet,disintegrating 4 mg PO Q8H PRN (Reason: nausea and vomiting) Qty: 14 0RF hydrocodone-acetaminophen 10-325 mg tablet 1 tab PO Q6H MDD 4 PRN (Reason: pain) Qty: 20 0RF Referrals: No Primary/Family,Physician [Referring Provider] - In 1 week Problem List Clinical Impression: UTI (urinary tract infection), Fever, SAPPHIRE (acute kidney injury), Hypomagnesemia Patient/Caregiver Discharge Instructions Print Language: Lithuanian Stand Alone Forms: Nina Award Info., Patient Portal Info Letter
--- NOTE | 2025-02-13 20:59 | XR_ITS ---
Examination: PA chest single view Technique: Upright PA chest single view Date and time: February 13, 2025 2117 hrs., Comparison December 10, 2024 Indications: Shortness of breath fever today. Findings: Nodular opacities in the right lower lung zone Right internal jugular dialysis catheter satisfactory position Normal heart size Mild mild vascular congestion The osseous structures are intact Impression: Pulmonary nodular densities in the lower lung zone on the right, please see the CT chest report March 03, [address] chest without contrast follow-up
--- NOTE | 2025-02-13 21:00 | XR_ITS ---
Examination: CT abdomen and pelvis without contrast. Coronal 3-D reconstructions. Sagittal 2-D reconstructions. Date and time of exam:February 13, 2025 11:00 AM Indications: Fever vomiting left flank pain today, history left or possibly tube placement 2 months ago CTDI: vol (mGy): 8.96 DLP: (mGycm): 584 Technique: Axial images of the abdomen have been obtained, 3 mm slice thickness Intravenous contrast material has not been administered. Low dose protocols were performed. One or more of the following dose reduction techniques were used; automated exposure control, adjustment of the mA and/or KV according to patient size, use of iterative reconstruction technique. Findings: Again noted pulmonary masses in the right middle lobe and right lower lobe noted on the 01/28/2025 exam No focal liver or splenic lesions Cholelithiasis No pancreatic or adrenal mass Nephrostomy tubes satisfactory position, no hydronephrosis Normal appendix No bowel obstruction Retroverted uterus Mild thickening of urinary bladder wall, no bladder calculi Impression: Nephrostomy tubes are in satisfactory position, no hydronephrosis
[2025-02-13 21:47] VITALS: BP 165/83; PULSE 81; RESP 22; TEMP 38.7; O2SAT 98
[2025-02-13] MEDS: SODIUM CHLORIDE 0.9% 250 ML 250 ML 500 ML IV (21:47)
[2025-02-13] MEDS: ONDANSETRON INJ 2 MG/ML INJ 2 ML 4 MG IVP (21:49)
[2025-02-13] MEDS: ACETAMINOPHEN 325 MG TABLET 650 MG PO (21:49)
[2025-02-13] MEDS: KETOROLAC INJ 30 MG/ML VIAL IVP (21:50)
[2025-02-13] MEDS: CEFEPIME INJ 1 GM in SODIUM CHLORIDE 0.9% (Popper) 50 ML IV (21:50)
[2025-02-13] MEDS: HYDROmorphone INJ 2 MG/ML VIAL 1 MG IVP (21:50)
[2025-02-13 21:55] VITALS: BP 165/83; PULSE 80; RESP 19; O2SAT 94
[2025-02-13 21:56] LABS: Lactate (Lactic Acid) 1.6 mMol/L (0.4-2.0)
[2025-02-13 22:04] LABS: Sed Rate (ESR) 85 mm/hr (0-20)
[2025-02-13 22:07] LABS: Basophils # (Auto) 0.1 Thou/mm3 (0.0-0.2); Basophils % (Auto) 0 % (0-2.5); Eosinophils # (Auto) 0.1 Thou/mm3 (0.0-0.5); Eosinophils % (Auto) 0 % (0-10); Hematocrit 33.0 % (36.0-46.0); Hemoglobin 10.3 g/dL (12.0-16.0); Immature Granulocytes Auto 0.09 Thou/mm3 (0.00-0.00); Lymphocytes # (Auto) 1.5 Thou/mm3 (1.0-4.8); Lymphocytes % (Auto) 9 % (10-50); Mean Corpuscular HGB Conc 31.2 g/dl (31.0-37.0); Mean Corpuscular Hemoglobin 26.0 pg (25.0-35.0); Mean Corpuscular Volume 83 fL (80-100); Monocytes # (Auto) 1.3 Thou/mm3 (0.0-0.8); Monocytes % (Auto) 8 % (0-12); Neutrophils # (Auto) 12.7 Thou/mm3 (1.8-7.7); Neutrophils % (Auto) 81 % (37-80); Nucleated Red Blood Cell # 0.00 Thou/mm3 (0.00-0.00); Nucleated Red Blood Cell % 0 /100 WBC (0); Platelet Count 351 Thou/mm3 (140-440); RDW Standard Deviation 54.1 fL (36.4-46.3); Red Blood Count 3.96 Miln/mm3 (4.00-5.20); White Blood Count 15.6 Thou/mm3 (3.6-11.0)
[2025-02-13 22:16] LABS: Collection Type, Urine Clean Catch; Squamous Epithelial Cell,Urine 0 /hpf (0-5)
[2025-02-13 22:21] LABS: Bacteria,Urine 2+; Bilirubin,Urine Negative (Negative); Blood,Urine 3+ (Negative); Budding Yeast,Urine Present; Glucose, Urine 1+ (Negative); Ketones,Urine Negative (Negative); Leukocyte Esterase,Urine Positive (Negative); Nitrite,Urine Positive (Negative); PH,Urine 7.5 (5.0-7.0); Protein,Urine 3+ (Neg - Trace); RBC,Urine 1210 /hpf (0-3); Specific Gravity,Urine 1.017 (1.001-1.035); Urobilinogen,Urine Negative mg/dL (0.0-1.0); WBC,Urine 102 /hpf (0-5)
[2025-02-13 22:22] LABS: Glucose Estimated Average 126 mg/dL (80-131); Hemoglobin A1C 6.0 % Hgb (4.8-6.0)
[2025-02-13 22:22] LABS: Clarity,Urine Turbid (Clear/Hazy); Color,Urine Lt-Orange (Lt Yel-Yel); Culture Indicated,Urine Yes
[2025-02-13] MEDS: Vancomycin Inj 1,000 MG in SODIUM CHLORIDE 0.9% 500 ML 500 ML 150 MG IV (22:25)
[2025-02-13 22:30] LABS: B-Type Natriuretic Peptide 108 pg/mL (0-100)
[2025-02-13 22:31] LABS: HCG,Qualitative Serum Negative
[2025-02-13] MEDS: FLUCONAZOLE/NS 400 MG IVPB 400 MG/200 ML BAG 100 MG IV (22:47)
[2025-02-13 22:49] LABS: Alanine Aminotransferase 32 U/L (10-49); Albumin, Serum 4.5 gm/dL (3.5-5.0); Albumin/Globulin Ratio 1.2 (1.2-2.2); Alkaline Phosphatase 144 U/L (46-116); Anion Gap 10 (7-16); Aspartate Amino Transferase 21 U/L (0-34); BUN/Creatinine Ratio 8 Ratio (12-20); Bilirubin,Direct 0.2 mg/dL (0.0-0.3); Bilirubin,Total 0.7 mg/dL (0.3-1.2); Blood Urea Nitrogen 15 mg/dL (9-23); C-Reactive Protein 21.3 mg/dL (0.0-0.9); Calcium 9.8 mg/dL (8.3-10.6); Calcium (Corrected) 9.8 mg/dL (8.5-10.1); Carbon Dioxide 25.7 mMol/L (20.0-31.0); Chloride 96 mMol/L (98-107); Creatinine (Component) 2.0 mg/dL (0.6-1.3); Estimated Creatinine Clearance 35.5 mL/min (>60); Globulin 3.7 gm/dL (2.3-3.5); Glucose 224 mg/dL (74-106); Magnesium 1.5 mg/dL (1.6-2.6); Osmolality,Calculated 272 (275-295); Potassium 4.4 mMol/L (3.4-5.1); Procalcitonin 0.40 ng/ml (0.0-0.49); Sodium 132 mMol/L (136-145); Total Protein 8.2 gm/dL (5.7-8.2); eGFR 31 See Note
[2025-02-13 22:50] VITALS: BP 148/73; TEMP 37.4
[2025-02-13] MEDS: Magnesium Sulfate 2 GM Ivpb 2 GM/50 ML BAG IV (23:35)
[2025-02-14] VITALS (12 sets, daily range): BP systolic 121–159; BP diastolic 58–76; PULSE 55–77; RESP 12–19; TEMP 36.4–36.6; O2SAT 94–96; BMI 29.5
--- NOTE | 2025-02-14 01:07 | PC.NURSE ---
THIS RN WALKED TO PT ROOMS AND PT WAS CRYING. THIS RN ATTEMPTED TO CONSOLE PT AND ASK WHATS UPSETTING THEM. PT STATES THAT THE PROVIDERS ASKED A SCARY QUESTION ABOUT COMPRESSION . THIS RN EDUCATED PT THAT CODE STATUS IS A ROUTINE QUESTION WE ASK ALL PTS THAT ARRE GOING TO GET ADMITTED. PT MADE A STATEMENT I DONT WANT TO LIVE LIKE THIS ANYMORE . THIS RN ASKED PT IF SHE HAS ANY THOUGHTS OF HURTING SELF AND PT DENIED. PROVIDERS WERE NOTIFIED ABOUT STATEMENT FROM PT. BLADE BONER WAS NOTIFED ABOUT STATEMENT. DAD CURRENTLY AT BEDSIDE. [place] SUICIDE SCALE COMPLETED.
--- NOTE | 2025-02-14 01:19 | PD.RESHP ---
Documentation for date of: 02/14/25 [facility] History of Present Illness Chief complaint: L flank pain, Fever History of present illness: Patient is a 44 year old female with past medical history HTN, Insulin dependent-T2DM, GERD, hx valley fever treated 1.5 months ago, non-malignant bladder mass, bilateral hydronephrosis s/p bilateral nephrostomy, acute renal failure on HD /Sun w/ Dr. Pineda (started 01/06/2025) presented to the ED after having L flank pain with fever. Patient has had fever since 02/12 and having L sided nephrostomy tube area pain non-radiating with blood in the L nephrostomy bag that started morning of 02/13. Patient states the L nephrostomy bag has been consistently outputting at least half as much urine compared to the right side. Patient states that she vomited yesterday 3 times and today 4 times w/o blood both times. Patient states she has been using morphine pills for her pain. Patient states she did not get her Sunday hemodialysis session done, but did get it done 02/12. Patient denies dizziness, fainting, chest pain, shortness of breath, abdominal pain, suprapubic pain. Patient states she needs to get her bladder mass removed at [facility], referred to community mental health social worker for help to get [employer] insurance to get the procedure done. Patient initially seemed to be overwhelmed and started crying and was reportedly having some suicidal ideation. Patient was seen and talked to about this. Patient states that she no longer feels this way, does not have a plan or intention, does not have the means for any harm to self or others. Past Medical History: above Surgical History: x1 Social History: Patient lives in [place] with , denies any tobacco, alcohol or illicit drug use. Current Medications: hydralazine 50 mg, carvedilol 25 mg, amlodipine, cefuroxime, norco, iron supplements, famotidine 20 mg, parker-mj, senna Allergies: No known drug allergies ED Course: -Initial vitals were 97.8 F, HR 68, RR 17, BP 139/69, 100% O2 RA -Labs significant for WBC 15.6, Hgb 10.3, Na 132, Cr 2.0, glucose 224, mag 1.5, alk phos 144, CRP 21.3, BNP 108 UA: pH 7.5, 3+ protein, glucose 1+, blood 3+, rbc 1210, wbc 102, bacteria 2+, urine yeast present Blood x2 and urine cultures taken -Imaging included CXR: Pulmonary nodular densities in the lower lung zone on the right CTAP: Nephrostomy tubes are in satisfactory position, no hydronephrosis -In the ED, patient was given 250 ml NS IV x1, tylenol, zofran, cefepime 50 mls x1, ketorolac 30 mg IV x1, dilaudid 1 mg x1, vancomycin 1,000 mg x1, Fluconazole 400 mg x1, mag sulfate 2 gm x1. -Patient was admitted for workup and management of UTI. Review of Systems Review of systems otherwise negative except what is mentioned above. Exam Vital Signs Temp Pulse Resp BP Pulse Ox O2 Del Method 99.3 F 80 19 148/73 H 94 L Room Air 02/13/25 22:50 02/13/25 21:55 02/13/25 21:55 02/13/25 22:50 02/13/25 21:55 02/13/25 21:55 Narrative Exam General: No acute distress; A&Ox3, tearful Skin: Warm, dry, intact, no obvious rash. HENT: NCAT, EOMI, not icteric. External ears normal. No rhinorrhea. Moist mucous membranes Cardiovascular: Regular rate and rhythm, no murmur, +S1/S2. Respiratory: Lungs CTAB GI: Soft, nontender, non-distended. No guarding or rebound tenderness. : no suprapubic tenderness, L flank tenderness non-radiating erythema surrounding L nephrostomy tube Extremities: no edema, no cyanosis, no clubbing. Extremity pulses present Neuro: No focal deficits observed. Conversant, moving all extremities. No overt cerebellar signs/incoordination. Psychiatric: Cooperative, appropriate affect. Results: Labs 02/14/25 04:32 02/14/25 04:32 Labs: Short CBC 02/13/25 Range/Units 21:22 WBC 15.6 H (3.6-11.0) Thou/mm3 Hgb 10.3 L (12.0-16.0) g/dL Hct 33.0 L (36.0-46.0) % Plt Count 351 D (140-440) Thou/mm3 BMP 02/13/25 21:22 Sodium 132 L Potassium 4.4 Chloride 96 L Carbon Dioxide 25.7 BUN 15 Creatinine 2.0 H Glucose 224 H Calcium 9.8 Liver Function 02/13/25 Range/Units 21:22 Total Bilirubin 0.7 (0.3-1.2) mg/dL Direct Bilirubin 0.2 (0.0-0.3) mg/dL AST 21 (0-34) U/L ALT 32 (10-49) U/L Alkaline Phosphatase 144 H (46-116) U/L Albumin 4.5 (3.5-5.0) gm/dL Urine 02/13/25 Range/Units 22:10 Urine Color Lt-Pleasants A (Lt Yel-Yel) Urine Clarity Turbid A (Clear/Hazy) Urine pH 7.5 H (5.0-7.0) Ur Specific Clio 1.017 (1.001-1.035) Urine Protein 3+ A (Neg - Trace) Urine Glucose (UA) 1+ A (Negative) Quality Measures Quality Measures VTE prophylaxis Medications Home Medications and Allergies Home Medications ?Medication ?Instructions ?Recorded ?Confirmed ?Type blood sugar diagnostic (Accu-Chek 12/11/24 02/14/25 History Guide test strips) buspirone 10 mg tablet 10 mg PO HS 12/11/24 02/14/25 History insulin lispro 100 unit/mL 5 unit subcut TID 12/11/24 02/14/25 History subcutaneous pen lancets (Accu-Chek Softclix 12/11/24 02/14/25 History Lancets) omeprazole 40 mg capsule,delayed 40 mg PO QDAY 12/11/24 02/14/25 History release pen needle, diabetic 31 gauge x 12/11/24 02/14/25 History / (TRUEplus Pen Needle) amlodipine 10 mg tablet 10 mg PO 1XD 02/14/25 02/14/25 History carvedilol 25 mg tablet 25 mg PO 1XD 02/14/25 02/14/25 History cefuroxime axetil 500 mg tablet 500 mg PO 1XD 02/14/25 02/14/25 History famotidine 20 mg tablet 20 mg PO 1XD 02/14/25 02/14/25 History ferrous sulfate 325 mg (65 mg 325 mg PO 1XD 02/14/25 02/14/25 History iron) tablet (FeroSul) hydralazine 50 mg tablet 50 mg PO 1XD 02/14/25 02/14/25 History Allergies Allergy/AdvReac Type Severity Reaction Status Date / Time No Known Allergies Allergy Verified 02/13/25 20:08 Visit Medications Discontinued Medications Acetaminophen (Acetaminophen 325 Mg Tablet) 650 mg PO X1 ONE Stop: 02/13/25 20:59 Last Admin: 02/13/25 21:49 Dose: 650 mg Hydromorphone HCl (Hydromorphone Inj 2 Mg/Ml Vial) 1 mg IVP X1 ONE Stop: 02/13/25 20:59 Last Admin: 02/13/25 21:50 Dose: 1 mg Cefepime HCl 1 gm/ Sodium (Chloride) 50 mls @ 100 mls/hr IV X1 ONE Stop: 02/13/25 21:27 Last Infusion: 02/13/25 22:24 Dose: Infused Sodium Chloride (Ns) 250 mls @ 500 mls/hr IV .Q30M ONE Stop: 02/13/25 21:27 Last Infusion: 02/13/25 22:24 Dose: Infused Vancomycin HCl 1,000 mg/ (Sodium Chloride) 500 mls @ 150 mls/hr IV X1 ONE Stop: 02/14/25 00:17 Last Admin: 02/13/25 22:25 Dose: 150 mls/hr Fluconazole (Diflucan/Ns Ivpb) 400 mg in 200 mls @ 100 mls/hr IV X1 ONE Stop: 02/14/25 00:29 Last Infusion: 02/14/25 01:00 Dose: Infused Magnesium Sulfate (Magnesium Sulfate Ivpb) 2 gm in 50 mls @ 25 mls/hr IV X1 ONE Stop: 02/14/25 01:00 Last Admin: 02/13/25 23:35 Dose: 25 mls/hr Ketorolac Tromethamine (Ketorolac Inj 30 Mg/Ml Vial) 30 mg IVP X1 ONE Stop: 02/13/25 20:59 Last Admin: 02/13/25 21:50 Dose: 30 mg Ondansetron HCl (Ondansetron Inj 2 Mg/Ml Inj 2 Ml) 4 mg IVP X1 ONE; Protocol Stop: 02/13/25 20:59 Last Admin: 02/13/25 21:49 Dose: 4 mg Assessment & Plan Plan Patient is a 44 year old female with past medical history HTN, ID-T2DM, GERD, hx valley fever treated non-malignant bladder mass, bilateral hydronephrosis s/p bilateral nephrostomy, acute renal failure on HD /Sat w/ Dr. Pineda (started 01/06/2025) presented to the ED after having L flank pain with fever. Patient was admitted for workup and management of UTI. #Acute pyleonephritis #UTI- complicated #Cellulitis at site of L/nephrostomy tube Likely due to nephrostomy tube infection. Patient with fever, L flank pain, erythema of L nephrostomy tube Labs significant for WBC 15.6, CRP 21.3 UA showed evidence of UTI CTAP: Nephrostomy tubes are in satisfactory position, no hydronephrosis Given fluids, tylenol, cefepime, ketorolac, dilaudid, vancomycin, fluconazole in ED. -Urine cx L nephrostomy tube ordered -Blood x2, urine cultures taken, f/u -Ordered Cefepime 2 gm IV q day -Ordered Vancomycin pharm dose -Possible need of replacement of left nephrostomy tube -Consult IR for replacement as warranted. #SAPPHIRE Likely pre-renal due to hypovolemia with recent vomiting Patient gets HD Freddy/Alfa w/ Dr. Pineda Patient takes parker-mj home med Cr 2.0 on admission -Nephrology consulted -holding parker-mj #Insulin Dependent T2DM Home meds stated insulin 30 units long acting, 5 units with meals Upon chart review, 18 units long acting Degludec Glucose 224 on admission -restarted 18 u Degludec qd -started insulin sliding scale -glucose achs checks -glucagon, d50 prn #HTN home meds of carvedilol 25 mg po bid, hydralazine 50 mg 1 tab/day, amlodipine unsure dosage. -resumed carvedilol 25 mg po bid -consider restarting other home meds if appropriate. #Anemia, normocytic Likely due to EMILY Patient takes home iron supplemenation Patient denies dizziness, fainting No signs/symptoms bleeding Hgb baseline around 9 -monitor hemoglobin, signs/symptoms of bleeding -hold iron given infection Hospital Management: Disposition: med tele Diet: NPO GI Prophylaxis: famotidine 20 mg bid Bowel Prophylaxis: senna DVT Prophylaxis: heparin CODE STATUS: FULL CODE Patient plan of care was discussed with the attending physician, Dr. Amezcua & senior resident Dr. Jean Pierre Martinez MD PGY-1 Attending Provider Attestation/Addendum After examination of the patient and review of the clinical data I feel that this patient needs admission to the hospital for further treatment/evaluation. Plan of care discussed with patient and is in agreement. I Renetta Amezcua MD, attest that I was physically present for oconnor portions of evaluation, and examined patient, labs and imagings and plan of care were discussed with IM residents team, and I agree with the findings and plans documented above.
[2025-02-14] MEDS: SODIUM CHLORIDE 0.9% 1000 ML 1,000 ML 999 ML IV (02:38)
[2025-02-14 05:25] LABS: Basophils # (Auto) 0.1 Thou/mm3 (0.0-0.2); Basophils % (Auto) 1 % (0-2.5); Eosinophils # (Auto) 0.2 Thou/mm3 (0.0-0.5); Eosinophils % (Auto) 1 % (0-10); Hematocrit 27.5 % (36.0-46.0); Immature Granulocytes Auto 0.07 Thou/mm3 (0.00-0.00); Lymphocytes # (Auto) 2.7 Thou/mm3 (1.0-4.8); Lymphocytes % (Auto) 21 % (10-50); Mean Corpuscular HGB Conc 31.3 g/dl (31.0-37.0); Mean Corpuscular Hemoglobin 26.5 pg (25.0-35.0); Mean Corpuscular Volume 85 fL (80-100); Monocytes # (Auto) 1.4 Thou/mm3 (0.0-0.8); Monocytes % (Auto) 11 % (0-12); Neutrophils # (Auto) 8.8 Thou/mm3 (1.8-7.7); Neutrophils % (Auto) 66 % (37-80); Nucleated Red Blood Cell # 0.00 Thou/mm3 (0.00-0.00); Nucleated Red Blood Cell % 0 /100 WBC (0); Platelet Count 289 Thou/mm3 (140-440); RDW Standard Deviation 54.7 fL (36.4-46.3); Red Blood Count 3.25 Miln/mm3 (4.00-5.20); White Blood Count 13.3 Thou/mm3 (3.6-11.0)
[2025-02-14 05:27] LABS: Hemoglobin 8.6 g/dL (12.0-16.0)
[2025-02-14 05:52] LABS: Collection Type, Urine Catheter; Squamous Epithelial Cell,Urine 0 /hpf (0-5)
[2025-02-14 06:01] LABS: Bacteria,Urine Rare; Bilirubin,Urine Negative (Negative); Blood,Urine Trace (Negative); Clarity,Urine Clear (Clear/Hazy); Color,Urine Lt-Yellow (Lt Yel-Yel); Glucose, Urine Negative (Negative); Ketones,Urine Negative (Negative); Leukocyte Esterase,Urine Positive (Negative); Nitrite,Urine Positive (Negative); PH,Urine 7.0 (5.0-7.0); Protein,Urine 1+ (Neg - Trace); RBC,Urine < 1 /hpf (0-3); Specific Gravity,Urine 1.007 (1.001-1.035); Urobilinogen,Urine Negative mg/dL (0.0-1.0); WBC,Urine 14 /hpf (0-5)
[2025-02-14 06:02] LABS: Culture Indicated,Urine Yes
[2025-02-14 06:12] LABS: Alanine Aminotransferase 22 U/L (10-49); Albumin, Serum 3.5 gm/dL (3.5-5.0); Albumin/Globulin Ratio 1.3 (1.2-2.2); Alkaline Phosphatase 114 U/L (46-116); Anion Gap 9 (7-16); Aspartate Amino Transferase 12 U/L (0-34); BUN/Creatinine Ratio 8 Ratio (12-20); Bilirubin,Total 0.4 mg/dL (0.3-1.2); Blood Urea Nitrogen 16 mg/dL (9-23); Calcium 8.4 mg/dL (8.3-10.6); Calcium (Corrected) 8.8 mg/dL (8.5-10.1); Carbon Dioxide 24.8 mMol/L (20.0-31.0); Chloride 102 mMol/L (98-107); Creatinine (Component) 2.1 mg/dL (0.6-1.3); Estimated Creatinine Clearance 35.3 mL/min (>60); Globulin 2.7 gm/dL (2.3-3.5); Glucose 167 mg/dL (74-106); Magnesium 2.0 mg/dL (1.6-2.6); Osmolality,Calculated 277 (275-295); Potassium 4.1 mMol/L (3.4-5.1); Sodium 136 mMol/L (136-145); Total Protein 6.2 gm/dL (5.7-8.2); eGFR 30 See Note
[2025-02-14] MEDS: FAMOTIDINE 20 MG TABLET PO ×2 (08:27→21:13)
[2025-02-14] MEDS: CEFEPIME INJ 2 GM in SODIUM CHLORIDE 0.9% (Popper) 50 ML IV (08:28)
[2025-02-14] MEDS: INSULIN DEGLUDEC 5 UNIT/0.05 ML (PER 5 UNITS) 18 UNIT SC (08:28)
[2025-02-14] MEDS: HYDROmorphone INJ 2 MG/ML VIAL 0.5 MG IVP ×3 (08:47→21:18)
[2025-02-14] MEDS: HEPARIN SOD INJ 5000 UNIT/ML VIAL SC ×2 (09:01→21:11)
[2025-02-14] MEDS: ONDANSETRON INJ 2 MG/ML INJ 2 ML 4 MG IVP (09:02)
--- NOTE | 2025-02-14 09:54 | ESCONSULT_ITS ---
HPI Data of Consult Consult date: 02/14/25 Requesting Physician: Renetta Amezcua MD Admitting Provider: Renetta Amezcua MD Attending Provider: Renetta Amezcua MD Primary Care Provider: Stan Cedillo MD Consult Narrative Reason for consult: SAPPHIRE/ATN History of present illness: History of Present Illness: 44 y/o F with PMH of HTN, Insulin dependent-T2DM, GERD, hx valley fever treated 1.5 months ago, non-malignant bladder mass, bilateral hydronephrosis s/p bilateral nephrostomy, acute renal failure on HD Tu/Sun w/ Dr. Pineda (started 01/06/2025) presented to the hospital on 02/13/2025 due to 2 days of constant dull pain around her left nephrostomy insertion site along with fever. At [facility], she underwent CT scan to evaluate for possible malposition or dysfunction of the nephrostomy tube, which comfirmed appropriate placement and drainage. The nephrostomy was originally placed in November 2024 at [facility] for significant hydronephrosis secondary to obstruction from a bladder mass. After discharge, she was initially followed by an oncologist in [place], but surgical resection was not feasible, and she was referred to another oncologist. Due to insurance barriers, however, she has been unable to establish further oncologic care for over one month. She also reported missing her scheduled hemodialysis session on sunday this week, but was able to attend treatment on . Patient complains of vomiting and nausea. Denies chest pain, palpation, SOB, abdominal pain. Patient has been admitted for management of UTI, SAPPHIRE and hemodialysis. Nephrology has been consulted for management of SAPPHIRE and hemodialysis. ED course: -Initial vitals were 97.8 F, HR 68, RR 17, BP 139/69, 100% O2 RA -Labs significant for WBC 15.6, Hgb 10.3, Na 132, Cr 2.0, glucose 224, mag 1.5, alk phos 144, CRP 21.3, BNP 108 UA: pH 7.5, 3+ protein, glucose 1+, blood 3+, rbc 1210, wbc 102, bacteria 2+, urine yeast present Blood x2 and urine cultures taken -Imaging included CXR: Pulmonary nodular densities in the lower lung zone on the right CTAP: Nephrostomy tubes are in satisfactory position, no hydronephrosis -In the ED, patient was given 250 ml NS IV x1, tylenol, zofran, cefepime 50 mls x1, ketorolac 30 mg IV x1, dilaudid 1 mg x1, vancomycin 1,000 mg x1, Fluconazole 400 mg x1, mag sulfate 2 gm x1. -Patient was admitted for workup and management of UTI. Past Medical History: above Surgical History: x1 Social History: Patient lives in [place] with , denies any tobacco, alcohol or illicit drug use. Current Medications: hydralazine 50 mg, carvedilol 25 mg, amlodipine, cefuroxime, norco, iron supplements, famotidine 20 mg, parker-mj, senna Allergies: No known drug allergies 02/14/2025: Labs reviewed and patient examined at the bedside. cc:: cc: Renetta Amezcua MD Review of Systems Review of Systems Narrative Review of Systems: All 12 systems assessed and the patient denies unless otherwise stated in HPI Exam Vital Signs Temp Pulse Resp BP Pulse Ox O2 Del Method 97.5 F 61 15 159/76 H 95 Room Air 02/14/25 07:51 02/14/25 08:27 02/14/25 07:51 02/14/25 08:27 02/14/25 07:51 02/14/25 07:51 Narrative Exam General: well nourished, AAO x3 Eye: normal conjunctiva, no scleral icterus HENT: Normocephalic, atraumatic, hearing intact to conversation at normal volume, moist oral mucosa Neck: Supple, non-tender, no JVD, no lymphadenopathy Lungs: Non-labored respirations, symmetric chest rise, Clear to auscultate bilaterally, No wheezing, rhonchi, crackles Heart: Peripheral pulses intact bilaterally, Regular Rate and Rhythm. Abdomen: Soft, non-tender, non-distended, no palpable masses, Bilateral nephrostomy insertion site at lower back. Musculoskeletal: Normal range of motion and strength, No cyanosis or edema, No visible joint swelling Skin: Skin is warm, dry, no rashes or lesions. IJ PermCath Psychiatric: Cooperative, appropriate mood and affect, Awake and alert, agitated Neuro: Cranial nerves II-XII grossly intact. Strength 5/5 throughout. Sensations intact to light touch. Results Labs 02/14/25 04:32 02/14/25 04:32 Labs: Short CBC 02/13/25 02/14/25 Range/Units 21:22 04:32 WBC 15.6 H 13.3 H (3.6-11.0) Thou/mm3 Hgb 10.3 L 8.6 L (12.0-16.0) g/dL Hct 33.0 L 27.5 L (36.0-46.0) % Plt Count 351 D 289 D (140-440) Thou/mm3 BMP 02/13/25 02/14/25 21:22 04:32 Sodium 132 L 136 Potassium 4.4 4.1 Chloride 96 L 102 Carbon Dioxide 25.7 24.8 BUN 15 16 Creatinine 2.0 H 2.1 H Glucose 224 H 167 H D Calcium 9.8 8.4 Liver Function 02/13/25 02/14/25 Range/Units 21:22 04:32 Total Bilirubin 0.7 0.4 (0.3-1.2) mg/dL Direct Bilirubin 0.2 (0.0-0.3) mg/dL AST 21 12 (0-34) U/L ALT 32 22 (10-49) U/L Alkaline Phosphatase 144 H 114 D (46-116) U/L Albumin 4.5 3.5 D (3.5-5.0) gm/dL Urine 02/13/25 02/14/25 Range/Units 22:10 01:26 Urine Color Lt-Sullivan A Lt-Yellow (Lt Yel-Yel) Urine Clarity Turbid A Clear (Clear/Hazy) Urine pH 7.5 H 7.0 (5.0-7.0) Ur Specific Canvas 1.017 1.007 (1.001-1.035) Urine Protein 3+ A 1+ A (Neg - Trace) Urine Glucose (UA) 1+ A Negative (Negative) Quality Measures Quality Measures VTE prophylaxis Medications Home Medications and Allergies Home Medications ?Medication ?Instructions ?Recorded ?Confirmed ?Type blood sugar diagnostic (Accu-Chek 12/11/24 02/14/25 H istory Guide test strips) buspirone 10 mg tablet 10 mg PO HS 12/11/24 5 History insulin lispro 100 unit/mL 5 unit subcut TID 12/11/24 02/14/25 History subcutaneous pen lancets (Accu-Chek Softclix 12/11/24 02/14/25 History Lancets) omeprazole 40 mg capsule,delayed 40 mg PO QDAY 5 02/14/25 History release pen needle, diabetic 31 gauge x 12/11/24 02/14/25 His tory 05/31 (TRUEplus Pen Needle) amlodipine 10 mg tablet 10 mg PO 1XD 02/14/25 History carvedilol 25 mg tablet 25 mg PO 1XD 02/14/25 History cefuroxime axetil 500 mg tablet 500 mg PO 1XD 02/14/25 02/14/25 History famotidine 20 mg tablet 20 mg PO 1XD 02/14/25 History ferrous sulfate 325 mg (65 mg 325 mg PO 1XD 02/14/25 0 02/14/25 History iron) tablet (FeroSul) hydralazine 50 mg tablet 50 mg PO 1XD 02/14/25 History Allergies Allergy/AdvReac Type Severity Reaction Status Date / Time No Known Allergies Allergy Verified 02/13/25 20:08 Visit Medications Acetaminophen (Acetaminophen 325 Mg Tablet) 650 mg PO Q6H PRN PRN Reason: FEVER >100.4 Stop: 03/16/25 01:09 Hydrocodone Bitart/Acetaminophen (Hydrocodone/Apap 5/325 Tablet) 1 tab PO Q4HR PRN PRN Reason: Pain 4-6 Stop: 02/19/25 07:13 Amlodipine Besylate (Amlodipine Besylate 5 Mg Tablet) 10 mg PO QDAY [facility] Stop: 03/16/25 08:59 Last Admin: 02/14/25 08:27 Dose: 10 mg Carvedilol (Carvedilol 12.5 Mg Tablet) 25 mg PO BID [facility]MENTINE Stop: 03/16/25 08:59 Last Admin: 02/14/25 08:27 Dose: 25 mg Dextrose (Dextrose 50%-Water Inj 50 Ml Syringe) 25 ml IV Q15MIN PRN PRN Reason: BG 50-70 responsive npo pt Stop: 03/16/25 01:25 Dextrose (Dextrose 50%-Water Inj 50 Ml Syringe) 50 ml IV Q15MIN PRN PRN Reason: BG <50 OR BG <70 & pt unresponsive Stop: 03/16/25 01:25 Famotidine (Famotidine 20 Mg Tablet) 20 mg PO BID [facility] Stop: 03/16/25 08:59 Last Admin: 02/14/25 08:27 Dose: 20 mg Glucagon (Glucagon Inj 1 Mg Vial) 1 mg IM Q15MIN PRN PRN Reason: BG <70, and no IV access Heparin Sodium (Porcine) (Heparin Sod Inj 5000 Unit/Ml Vial) 5,000 unit SC Q12HR [facility] Stop: 02/28/25 09:59 Last Admin: 02/14/25 09:01 Dose: 5,000 unit Hydromorphone HCl (Hydromorphone Inj 2 Mg/Ml Vial) 0.5 mg IVP Q4H PRN PRN Reason: Pain 7-10 Stop: 02/19/25 01:14 Last Admin: 02/14/25 08:47 Dose: 0.5 mg Cefepime HCl 2 gm/ Sodium (Chloride) 50 mls @ 100 mls/hr IV QDAY [facility] Stop: 02/21/25 08:59 Last Admin: 02/14/25 08:28 Dose: 100 mls/hr Vancomycin/Sodium Chloride (Vancomycin/Ns 1 Gm Ivpb) 200 mls @ 120 mls/hr IV HS@2200 [facility] Stop: 02/21/25 21:59 Insulin Degludec (Insulin Degludec 5 Unit/0.05 Ml (Per 5 Units)) 18 unit SC QDAY [facility] Stop: 03/16/25 08:59 Last Admin: 02/14/25 08:28 Dose: 18 unit Insulin Human Lispro (Insulin Lispro (Admelog) 1 Unit/0.01 Ml Unit) 0 unit SC ACHS [facility]; Protocol Stop: 03/16/25 07:29 Last Admin: 02/14/25 08:20 Dose: Not Given Ondansetron HCl (Ondansetron Inj 2 Mg/Ml Inj 2 Ml) 4 mg IVP Q6H PRN; Protocol PRN Reason: NAUSEA OR VOMITING Stop: 03/16/25 01:09 Last Admin: 02/14/25 09:02 Dose: 4 mg Pharmacy Consult (Vancomycin Pharmacy To Dose 1 Each Each) 1 each IV QDAY PRN PRN Reason: CONSULT Stop: 03/16/25 08:59 Sennosides (Senna Tablet) 1 tab PO QDAY PRN; Protocol PRN Reason: constipation Stop: 03/16/25 01:09 Discontinued Medications Acetaminophen (Acetaminophen 325 Mg Tablet) 650 mg PO X1 ONE Stop: 02/13/25 20:59 Last Admin: 02/13/25 21:49 Dose: 650 mg Hydromorphone HCl (Hydromorphone Inj 2 Mg/Ml Vial) 1 mg IVP X1 ONE Stop: 02/13/25 20:59 Last Admin: 02/13/25 21:50 Dose: 1 mg Hydromorphone HCl (Hydromorphone Inj 2 Mg/Ml Vial) 0.5 mg IVP Q4H PRN PRN Reason: Pain 5-10 Stop: 02/19/25 01:14 Cefepime HCl 1 gm/ Sodium (Chloride) 50 mls @ 100 mls/hr IV X1 ONE Stop: 02/13/25 21:27 Last Infusion: 02/13/25 22:24 Dose: Infused Sodium Chloride (Ns) 250 mls @ 500 mls/hr IV .Q30M ONE Stop: 02/13/25 21:27 Last Infusion: 02/13/25 22:24 Dose: Infused Vancomycin HCl 1,000 mg/ (Sodium Chloride) 500 mls @ 150 mls/hr IV X1 ONE Stop: 02/14/25 00:17 Last Admin: 02/13/25 22:25 Dose: 150 mls/hr Fluconazole (Diflucan/Ns Ivpb) 400 mg in 200 mls @ 100 mls/hr IV X1 ONE Stop: 02/14/25 00:29 Last Infusion: 02/14/25 01:00 Dose: Infused Magnesium Sulfate (Magnesium Sulfate Ivpb) 2 gm in 50 mls @ 25 mls/hr IV X1 ONE Stop: 02/14/25 01:00 Last Infusion: 02/14/25 01:38 Dose: Infused Ceftriaxone Sodium/Dextrose (Rocephin/D5w 1gm Iv Premix) 1 gm in 50 mls @ 100 mls/hr IV QDAY [facility] Stop: 02/21/25 01:17 Vancomycin HCl 1,000 mg/ (Sodium Chloride) 250 mls @ 120 mls/hr IV X1 ONE Stop: 02/14/25 03:34 Cefepime HCl 2 gm/ Sodium (Chloride) 50 mls @ 100 mls/hr IV X1 ONE Stop: 02/14/25 02:14 Last Admin: 02/14/25 02:56 Dose: Not Given Sodium Chloride (Ns) 1,000 mls @ 999 mls/hr IV .Q1H1M ONE Stop: 02/14/25 03:01 Last Admin: 02/14/25 02:38 Dose: 999 mls/hr Vancomycin/Sodium Chloride (Vancomycin/Ns 1 Gm Ivpb) 200 mls @ 120 mls/hr IV HS [facility] Stop: 02/21/25 20:59 Insulin Degludec (Insulin Degludec 5 Unit/0.05 Ml (Per 5 Units)) 30 unit SC QDAY [facility] Stop: 03/16/25 08:59 Insulin Degludec (Insulin Degludec 5 Unit/0.05 Ml (Per 5 Units)) 20 unit SC QDAY [facility] Stop: 03/16/25 08:59 Ketorolac Tromethamine (Ketorolac Inj 30 Mg/Ml Vial) 30 mg IVP X1 ONE Stop: 02/13/25 20:59 Last Admin: 02/13/25 21:50 Dose: 30 mg Ondansetron HCl (Ondansetron Inj 2 Mg/Ml Inj 2 Ml) 4 mg IVP X1 ONE; Protocol Stop: 02/13/25 20:59 Last Admin: 02/13/25 21:49 Dose: 4 mg Vitamin B Complex/Vit C/Folic Acid (Vit B12/Vit C/Fa (Nephrovite) Tablet) 1 tab PO QDAY [facility] Stop: 03/16/25 08:59 Assessment & Plan Plan 44 y/o F with PMH of HTN, Insulin dependent-T2DM, GERD, hx valley fever treated 1.5 months ago, non-malignant bladder mass, bilateral hydronephrosis s/p bilateral nephrostomy, acute renal failure on HD /Sun w/ Dr. Pineda (started 01/06/2025) presented to the hospital on 02/13/2025 due to 2 days of constant dull pain around her left nephrostomy insertion site along with fever. Patient has been admitted for managment of UTI, SAPPHIRE and hemodialysis. Nephrology has been consulted for management of SAPPHIRE and hemodialysis. #SAPPHIRE, post renal 2/2 Urinary retention 2/2 Bladder mass. #on Hemodialysis (Sunday, Sunday) -On admission: BUN: 15, Cr:2.0, eGFR:31. -Currently: BUN:16, Cr:2.1 , eGFR:30 -On admission UA (02/13): Sullivan Turbid urine, Urine protein:3+, Urine Glucose:1+, Urine Blood: 3+, Urine Nitrite positive, Urine leukocyte esterase positive, Urine RBC 1210, Urine WBC:102, Urine Bacteria 2+ -Repeat UA after 3 hours(02/14): Clear Yellow Urine, Urine protein:1+, Urine Glucose: negative, Urine blood: Trace, Urine Nitrite:Positive, Urine Leukocyte esterase: positive, Urine RBC:<1, Urine WBC:14, Urine Bacteria:Rare -CXR (02/13/2025): Nodular opacities in the right lower lung zone, Right internal jugular dialysis catheter satisfactory position, Normal heart size, Mild mild vascular congestion, The osseous structures are intact. -CTAP(02/13/2025): Nephrostomy tubes are in satisfactory position, no hydronephrosis -Patient had Acute Renal Failure in November 2024 due to urinary retention caused by bladder mass. Patient elevated Cr levels and decreased GFR likely contributory to the stress exerted by untreated bladder mass and nephrostomy tube to her kidneys. Unless her bladder mass is treated, nephrostomy tube cannot be removed and her kidney function is unlikely to improve-needing dialysis. Plan: -Patient received hemodialysis on Sunday. Currently, patient does not need hemodialysis-excellent urine output -Avoid nephrotoxins -Renally dose medication #UTI -Patient's presention was left sided pain near nephrostomy tube insertion site with fever. -Likely infection due to the nephrostomy tube. -Elevated WBC and UA showing presence of UTI. -Received Vancomycin and Ceftriaxone Plan: -Currently on Cefepime 2g IV qd. -Will continue to monitor. #Insulin Dependent T2DM #HTN #Anemia, normocytic -Management per Primary Hospitalist team Thank you for allowing us to participate in the care of your patient. Assessment and plan discussed with my attending physician Dr. Miriam Silva (PGY-1)- Internal medicine resident Attending Provider Attestation/Addendum patient currently seen and examined with resident physician Dr. Silva. Note reviewed, agree with findings and recommendations. Patient currently seen in medical floor. at bedside. Complaining of severe pain from the nephrostomy tube sites. Good urine output from nephrostomy tubes. Creatinine stable. Electrolytes stable. I am going to hold off on dialysis today and see if there is any renal recovery. In the interim patient being treated for complicated UTI due to nephrostomy tubes. Spoke to primary team. Thank you Salvador for allowing me to participate in the care of Ms. Cedillo.
--- NOTE | 2025-02-14 11:19 | PD.RESPRO ---
Documentation for date of: 02/14/25 Subjective Subjective Interval history: Patient was admitted overnight, presenting for infection of left nephrostomy tube. This morning, patient rated back pain 8 out of 10, improved to 2 out of 10 after Dilaudid 0.5 mg. Pain currently managed on current pain regimen, will continue to monitor. Was tearful on exam today but denies thoughts of self harm or suicidal ideation at this time. On exam, bilateral nephrostomy tubes appear to be in place and draining well. Drainage from left nephrostomy tube however was slightly darker than right. Insertion site appeared clean and intact with no erythema. Started on IV cefepime overnight, will continue. Discontinued vancomycin as low suspicion for MRSA at this time. Pending blood and urine cultures, will follow for sensitivities and continue to monitor CBC (WBC downtrending) and tubes. Consider replacement if inadequate drainage or appears more infected. Zofran as needed for nausea. Blood pressure mostly controlled on home dose amlodipine and carvedilol, will continue to monitor. Consulted real estate management specialist Dr. Pineda, deferred hemodialysis today as electrolytes and creatinine appear to be stable. Exam Vital Signs Temp Pulse Resp BP Pulse Ox O2 Del Method 97.5 F 61 15 159/76 H 95 Room Air 02/14/25 07:51 02/14/25 08:27 02/14/25 07:51 02/14/25 08:27 02/14/25 07:51 02/14/25 07:51 Narrative Exam Physical Exam General: Awake and in mild distress due to pain. Conversational and non-toxic appearing. Tearful. HEENT: Normocephalic, atraumatic, mucous membranes moist. Heart: Regular rate and rhythm, normal S1 and S2, no murmurs. Lungs: Clear to auscultation with no wheezing or crackles. Abdomen: Soft, nondistended, nontender, positive bowel sounds. No guarding or rebound tenderness. : Bilateral nephrostomy tubes in back, draining well. Slightly darker yellow urine in left bag, light yellow urine in right. No purulent drainage or erythema around insertion sites. Neurologic: Alert and oriented x3, no gross neurological deficit, and patient able to move all 4 extremities. Extremities: No edema. Skin: No rash or ecchymoses. Objective Labs 02/15/25 04:35 02/15/25 04:35 Labs: Laboratory Results - last 24 hr 02/13/25 02/13/25 02/14/25 21:22 22:10 01:26 WBC 15.6 H RBC 3.96 L Hgb 10.3 L Hct 33.0 L MCV 83 MCH 26.0 MCHC 31.2 RDW Std Deviation 54.1 H Plt Count 351 D Neut % (Auto) 81 H Lymph % (Auto) 9 L [place] % (Auto) 8 Eos % (Auto) 0 Baso % (Auto) 0 Neut # (Auto) 12.7 H Lymph # (Auto) 1.5 [place] # (Auto) 1.3 H Eos # (Auto) 0.1 Baso # (Auto) 0.1 Immature Gran # (Auto) 0.09 H Absolute Nucleated RBC 0.00 Immature Gran % 1 H Nucleated RBC % 0 ESR 85 H Sodium 132 L Potassium 4.4 Chloride 96 L Carbon Dioxide 25.7 Anion Gap 10 BUN 15 Creatinine 2.0 H Estim Creat Clear Calc 35.5 L eGFR 31 L BUN/Creatinine Ratio 8 L Glucose [address] Glu mg/dL 126 Hemoglobin A1c 6.0 Calculated Osmolality 272 L Lactic Acid 1.6 Calcium 9.8 Corrected Calcium 9.8 Magnesium 1.5 L Total Bilirubin 0.7 Direct Bilirubin 0.2 AST 21 ALT 32 Alkaline Phosphatase 144 H C-Reactive Prot, Quant 21.3 H B-Natriuretic Peptide 108 H Total Protein 8.2 Albumin 4.5 Globulin 3.7 H Albumin/Globulin Ratio 1.2 Procalcitonin 0.40 HCG, Qual Negative Ur Collection Type Clean Catch Catheter Urine Color Lt-K[place] A Lt-Yellow Urine Clarity Turbid A Clear Urine pH 7.5 H 7.0 Ur Specific [place] 1.017 1.007 Urine Protein 3+ A 1+ A Urine Glucose (UA) 1+ A Negative Urine Ketones Negative Negative Urine Blood 3+ A Trace Urine Nitrite Positive Positive Urine Bilirubin Negative Negative Urine Urobilinogen (Auto) Negative Negative Ur Leukocyte Esterase Positive Positive Urine RBC 1210 H < 1 Urine WBC 102 H 14 H Ur Squamous Epith Cells 0 0 Urine Bacteria 2+ A Rare Urine Yeast (Budding) Present A Ur Culture Indicated? Yes Yes 02/14/25 04:32 WBC 13.3 H RBC 3.25 L Hgb 8.6 L Hct 27.5 L MCV 85 MCH 26.5 MCHC 31.3 RDW Std Deviation 54.7 H Plt Count 289 D Neut % (Auto) 66 Lymph % (Auto) 21 [place] % (Auto) 11 Eos % (Auto) 1 Baso % (Auto) 1 Neut # (Auto) 8.8 H Lymph # (Auto) 2.7 [place] # (Auto) 1.4 H Eos # (Auto) 0.2 Baso # (Auto) 0.1 Immature Gran # (Auto) 0.07 H Absolute Nucleated RBC 0.00 Immature Gran % 1 H Nucleated RBC % 0 ESR Sodium 136 Potassium 4.1 Chloride 102 Carbon Dioxide 24.8 Anion Gap 9 BUN 16 Creatinine 2.1 H Estim Creat Clear Calc 35.3 L eGFR 30 L BUN/Creatinine Ratio 8 L Glucose [address] Glu mg/dL Hemoglobin A1c Calculated Osmolality 277 Lactic Acid Calcium 8.4 Corrected Calcium 8.8 Magnesium 2.0 Total Bilirubin 0.4 Direct Bilirubin AST 12 ALT 22 Alkaline Phosphatase 114 D C-Reactive Prot, Quant B-Natriuretic Peptide Total Protein 6.2 Albumin 3.5 D Globulin 2.7 Albumin/Globulin Ratio 1.3 Procalcitonin HCG, Qual Ur Collection Type Urine Color Urine Clarity Urine pH Ur Specific Gilbert Urine Protein Urine Glucose (UA) Urine Ketones Urine Blood Urine Nitrite Urine Bilirubin Urine Urobilinogen (Auto) Ur Leukocyte Esterase Urine RBC Urine WBC Ur Squamous Epith Cells Urine Bacteria Urine Yeast (Budding) Ur Culture Indicated? Quality Measures Quality Measures VTE prophylaxis Assessment & Plan Assessment Current Active Medications: Generic Name Dose Route Start Last Admin Trade Name Freq PRN Reason Stop Dose Admin Acetaminophen 650 mg 02/14/25 01:10 Acetaminophen 325 Mg Tablet PO 03/16/25 01:09 Q6H PRN FEVER >100.4 Hydrocodone Bitart/Acetaminophen 1 tab 02/14/25 07:14 Hydrocodone/Apap 5/325 Tablet PO 02/19/25 07:13 Q4HR PRN Pain 4-6 Amlodipine Besylate 10 mg 02/14/25 09:00 02/14/25 08:27 Amlodipine Besylate 5 Mg Tablet PO 03/16/25 08:59 10 mg QDAY CLEMENTINE Administration Carvedilol 25 mg 02/14/25 09:00 02/14/25 08:27 Carvedilol 12.5 Mg Tablet PO 03/16/25 08:59 25 mg BID CLEMENTINE Administration Dextrose 25 ml 02/14/25 01:26 Dextrose 50%-Water Inj 50 Ml Syringe IV 03/16/25 01:25 Q15MIN PRN BG 50-70 responsive npo pt Dextrose 50 ml 02/14/25 01:26 Dextrose 50%-Water Inj 50 Ml Syringe IV 03/16/25 01:25 Q15MIN PRN BG <50 OR BG <70 & pt unresponsive Famotidine 20 mg 02/14/25 09:00 02/14/25 08:27 Famotidine 20 Mg Tablet PO 03/16/25 08:59 20 mg BID CLEMENTINE Administration Glucagon 1 mg 02/14/25 01:26 Glucagon Inj 1 Mg Vial IM Q15MIN PRN BG <70, and no IV access Heparin Sodium (Porcine) 5,000 unit 02/14/25 10:00 02/14/25 09:01 Heparin Sod Inj 5000 Unit/Ml Vial SC 02/28/25 09:59 5,000 unit Q12HR CLEMENTINE Administration Hydromorphone HCl 0.5 mg 02/14/25 07:14 02/14/25 08:47 Hydromorphone Inj 2 Mg/Ml Vial IVP 02/19/25 01:14 0.5 mg Q4H PRN Administration Pain 7-10 Cefepime HCl 2 gm/ Sodium 50 mls @ 100 mls/hr 02/14/25 09:00 02/14/25 08:28 Chloride IV 02/21/25 08:59 100 mls/hr QDAY CLEMENTINE Administration Vancomycin/Sodium Chloride 200 mls @ 120 mls/hr 02/14/25 22:00 Vancomycin/Ns 1 Gm Ivpb IV 02/21/25 21:59 HS@2200 [facility] Insulin Degludec 18 unit 02/14/25 09:00 02/14/25 08:28 Insulin Degludec 5 Unit/0.05 Ml (Per 5 Units) SC 03/16/25 08:59 18 unit QDAY CLEMENTINE Administration Insulin Human Lispro 0 unit 02/14/25 07:30 02/14/25 08:20 Insulin Lispro (Admelog) 1 Unit/0.01 Ml Unit SC 03/16/25 07:29 Not Given ACHS [facility] Protocol Ondansetron HCl 4 mg 02/14/25 01:10 02/14/25 09:02 Ondansetron Inj 2 Mg/Ml Inj 2 Ml IVP 03/16/25 01:09 4 mg Q6H PRN Administration NAUSEA OR VOMITING Protocol Pharmacy Consult 1 each 02/14/25 09:00 Vancomycin Pharmacy To Dose 1 Each Each IV 03/16/25 08:59 QDAY PRN CONSULT Sennosides 1 tab 02/14/25 01:10 Senna Tablet PO 03/16/25 01:09 QDAY PRN constipation Protocol Plan Patient is a 44 year old female with past medical history HTN, ID-T2DM, GERD, hx valley fever treated non-malignant bladder mass, bilateral hydronephrosis s/p bilateral nephrostomy, acute renal failure on HD /Sun w/ Dr. Pineda (started 01/06/2025) presented to the ED after having L flank pain with fever. Patient was admitted for workup and management of UTI. #Pyelonephritis #UTI, complicated Presented with fever, n/v, left flank pain, erythema of left nephrostomy tube, likely infection of left tube. Meets 3/4 SIRS criteria on admission: Temp 101.5, tachypnea, and WBC 15.6 but no evidence of end organ damage. Creatinine elevated but at baseline. CRP 21.3. UA showed evidence of UTI, WBC 14, RBC <1 CT A/P showed nephrostomy tubes in satisfactory position, no hydronephrosis. S/p fluids, cefepime, vancomycin, fluconazole x 1 in ED. Plan: - Follow up urine and blood cultures - Cefepime 2 gm IV (02/14- - CTM left nephrostomy tube drainage - Consider replacement if infection worsens #Urothelial papilloma with chronic cystitis #Acute renal failure #Hemodialysis Sunday/Sunday (12/15/24) #S/p bilateral nephrostomy tubes (12/19/24) On previuos admission, was found to have posterior bladder mass diagnosed as urothelial papilloma with chronic cystitis. This obstruction resulted in bilateral hydronephrosis and acute renal failure to the point that patient required hemodialysis. Nephrostomy tubes were eventually placed by urologist Dr. Friedman on 12/19/24. However right tube became obstructed and was removed but unable to be replaced. Was discharged from [facility] with left nephrostomy tube and scheduled for close outpatient follow-up with Dr. Forbes. Patient reports that after discharge she went to [facility] where right nephrostomy tube was reinserted, continues to drain well. Was unable to have mass removed at [facility] due to lack of urology service. Follows real estate management specialist Dr. Pineda, on Sunday/Sunday hemodialysis schedule. Last HD session 02/07. Baseline creatinine 1.8-3.4. Creatinine 2.0 on admission. Plan: - Consulted real estate management specialist Dr. Pineda, appreciate recommendations - Will need higher level care for urology to remove bladder mass - Pain regimen with Tylenol and [place] prn #Insulin Dependent T2DM Home meds stated insulin 30 units long acting, 5 units with meals Upon chart review, 18 units long acting Degludec Glucose 224 on admission Plan: - Degludec 18 units nightly - SSI - Accu-checks - CTM glucose #HTN Home meds include carvedilol 25 mg po bid, hydralazine 50 mg 1 tab/day, amlodipine 10 mg daily. - Continue home dose carvedilol and amlodipine - Hold hydralazine for now - IV labetolol prn - CTM BP #Anemia, normocytic Likely due to EMILY. Iron panel 12/11/24 showed low iron and saturation, TIBC and iron saturated iron-binding within normal limits. Patient takes home iron supplements. No signs or symptoms of bleeding at this time. Plan: - Hold home iron in setting of infection - CTM hemoglobin - Transfuse if Hgb <7 #Pulmonary masses, stable #Hx Valley Fever Visualized on repeat imaging since 03/21/2024. Right midlung mass 25-30mm and right lower lobe mass 18-22mm mass. CT A/P 02/13: Again noted pulmonary masses in the right middle lobe and right lower lobe noted on the 01/28/2025 exam Plan: - Fairly stable, will CTM Health Maintenance Disposition: med tele DVT prophylaxis: heparin GI prophylaxis: famotidine Diet: carb consistent CODE STATUS: FULL Patient plan of care was discussed with the attending physician, Dr. Jones. Mounika Orosco, PGY-1 Attending Provider Attestation/Addendum I have examined the patient, reviewed labs and imaging findings, discussed the case with the resident(s), and reviewed entered orders. I agree with the plan of care as outlined in this note, with these additional summaries/recommendations: Patient and seen at bedside. Patient admitted overnight for complicated urinary tract infection in the setting of nephrostomy tubes and bladder mass. Urinalysis indicative of UTI. Urine and blood cultures taken, follow-up results when available. Continue broad-spectrum antibiotics. Bilateral nephrostomy tubes appear to be draining well and we will monitor output closely. Patient has a history of benign bladder mass and is pending outpatient surgical intervention. Patient has been receiving dialysis and we will consult in-house real estate management specialist for inpatient HD. Renally dose medications and avoid nephrotoxic agents. Ultimately I am hopeful patient may be able to get off dialysis once bladder mass is removed. Continue home antihypertensives as needed. Continue basal bolus insulin for diabetes mellitus type 2 with Accu-Cheks. Target blood sugar of 140-180 while hospitalized. Patient has anemia of chronic disease and no evidence of bleeding at this time. Continue daily hematology and chemistry panel. Patient and patient's updated on the plan and in agreement. All questions answered to satisfaction. Please see residents note for additional details and management. Dr. Robert MD
[2025-02-14] MEDS: INSULIN LISPRO (AdmeLOG) 1 UNIT/0.01 ML UNIT SC ×2 (11:53→21:10)
--- NOTE | 2025-02-14 12:38 | PC.SS ---
Optical Instrument Assembly Supervisor (CLAY) [place] met with the patient at the bedside to complete the initial assessment and discuss the discharge plan. Per the chart review, the patient presented to the emergency department with c/o having left flank pain with fever. Patient's past medical history of HTN, [id number], GERD, hx valley fever treated 1.5 months ago, non-malignant bladder mass, bilateral hydronephrosis s/p bilateral nephrostomy, acute renal failure on HD Freddy/[facility] w/ Dr. Pineda (started 01/06/2025). SW met with the patient at the bedside. SW introduced self, role, and the reason for the consult. Patient agreed to engage in the assessment. Patient is alert and oriented to person, place, time, and situation. Patient is Kacy Cedillo, 44 y/o single, , Azeri-speaking female residing with her children at [address] [place] [address]. Patient named her [id number], Renay Dowd, , as her surrogate medical decision maker. Patient reports her baseline is independent with no DME, but lately she has been having to hold someone to walk. Patient is unemployed. Patient discharge plan is home with private transportation by family. Per RN Cordell, the patient is A/Ox4; pending nephology consult for possible left nephrostomy tube replacement, the patient is on IV abx for UTI. Surrogate medical decision maker: [id number], Renay Dowd, Discharge plan: Home
[2025-02-14] MEDS: HYDROcodone/APAP 5/325 TABLET 1 TAB PO (13:30)
[2025-02-15] VITALS (8 sets, daily range): BP systolic 126–151; BP diastolic 59–81; PULSE 55–67; RESP 17–18; TEMP 36.1–36.7; O2SAT 96–99
[2025-02-15] MEDS: HYDROmorphone INJ 2 MG/ML VIAL 0.5 MG IVP ×3 (01:45→20:55)
[2025-02-15 05:26] LABS: Basophils # (Auto) 0.1 Thou/mm3 (0.0-0.2); Basophils % (Auto) 1 % (0-2.5); Eosinophils # (Auto) 0.3 Thou/mm3 (0.0-0.5); Eosinophils % (Auto) 2 % (0-10); Hematocrit 29.6 % (36.0-46.0); Hemoglobin 9.3 g/dL (12.0-16.0); Immature Granulocytes Auto 0.04 Thou/mm3 (0.00-0.00); Lymphocytes # (Auto) 2.3 Thou/mm3 (1.0-4.8); Lymphocytes % (Auto) 22 % (10-50); Mean Corpuscular HGB Conc 31.4 g/dl (31.0-37.0); Mean Corpuscular Hemoglobin 26.6 pg (25.0-35.0); Mean Corpuscular Volume 85 fL (80-100); Monocytes # (Auto) 0.9 Thou/mm3 (0.0-0.8); Monocytes % (Auto) 8 % (0-12); Neutrophils # (Auto) 7.1 Thou/mm3 (1.8-7.7); Neutrophils % (Auto) 66 % (37-80); Nucleated Red Blood Cell # 0.00 Thou/mm3 (0.00-0.00); Nucleated Red Blood Cell % 0 /100 WBC (0); Platelet Count 336 Thou/mm3 (140-440); RDW Standard Deviation 53.8 fL (36.4-46.3); Red Blood Count 3.49 Miln/mm3 (4.00-5.20); White Blood Count 10.7 Thou/mm3 (3.6-11.0)
[2025-02-15 05:42] LABS: INR 1.0 (0.9-1.3); Partial Thromboplastin Time 33.0 Seconds (22.0-36.0); Prothrombin Time 10.9 Seconds (9.0-12.2)
[2025-02-15 06:07] LABS: Alanine Aminotransferase 18 U/L (10-49); Albumin, Serum 4.0 gm/dL (3.5-5.0); Albumin/Globulin Ratio 1.3 (1.2-2.2); Alkaline Phosphatase 120 U/L (46-116); Anion Gap 10 (7-16); Aspartate Amino Transferase 12 U/L (0-34); BUN/Creatinine Ratio 8 Ratio (12-20); Bilirubin,Total 0.3 mg/dL (0.3-1.2); Blood Urea Nitrogen 15 mg/dL (9-23); Calcium 9.1 mg/dL (8.3-10.6); Calcium (Corrected) 9.1 mg/dL (8.5-10.1); Carbon Dioxide 23.7 mMol/L (20.0-31.0); Chloride 99 mMol/L (98-107); Creatinine (Component) 1.9 mg/dL (0.6-1.3); Estimated Creatinine Clearance 39.0 mL/min (>60); Globulin 3.2 gm/dL (2.3-3.5); Glucose 175 mg/dL (74-106); Magnesium 1.8 mg/dL (1.6-2.6); Osmolality,Calculated 271 (275-295); Phosphorous 3.6 mg/dL (2.4-5.1); Potassium 4.3 mMol/L (3.4-5.1); Sodium 133 mMol/L (136-145); Total Protein 7.2 gm/dL (5.7-8.2); eGFR 33 See Note
[2025-02-15] MEDS: INSULIN DEGLUDEC 5 UNIT/0.05 ML (PER 5 UNITS) 18 UNIT SC (08:44)
[2025-02-15] MEDS: CEFEPIME INJ 2 GM in SODIUM CHLORIDE 0.9% (Popper) 50 ML IV ×2 (08:44→20:58)
[2025-02-15] MEDS: HEPARIN SOD INJ 5000 UNIT/ML VIAL SC ×2 (08:45→21:04)
[2025-02-15] MEDS: FAMOTIDINE 20 MG TABLET PO ×2 (08:45→21:01)
--- NOTE | 2025-02-15 09:02 | ESPR_ITS ---
Documentation for date of: 02/15/25 Subjective Subjective Interval history: 44 y/o F with PMH of HTN, Insulin dependent-T2DM, GERD, hx valley fever treated 1.5 months ago, non-malignant bladder mass, bilateral hydronephrosis s/p bilateral nephrostomy, acute renal failure on HD Tu/Sun w/ Dr. Pineda (started 01/06/2025) presented to the hospital on 02/13/2025 due to 2 days of constant dull pain around her left nephrostomy insertion site along with fever. At [facility], she underwent CT scan to evaluate for possible malposition or dysfunction of the nephrostomy tube, which comfirmed appropriate placement and drainage. The nephrostomy was originally placed in November 2024 at [facility] for significant hydronephrosis secondary to obstruction from a bladder mass. After discharge, she was initially followed by an oncologist in [place], but surgical resection was not feasible, and she was referred to another oncologist. Due to insurance barriers, however, she has been unable to establish further oncologic care for over one month. She also reported missing her scheduled hemodialysis session on sunday this week, but was able to attend treatment on . Patient complains of vomiting and nausea. Denies chest pain, palpation, SOB, abdominal pain. Patient has been admitted for management of UTI, SAPPHIRE and hemodialysis. Nephrology has been consulted for management of SAPPHIRE and hemodialysis. ED course: -Initial vitals were 97.8 F, HR 68, RR 17, BP 139/69, 100% O2 RA -Labs significant for WBC 15.6, Hgb 10.3, Na 132, Cr 2.0, glucose 224, mag 1.5, alk phos 144, CRP 21.3, BNP 108 UA: pH 7.5, 3+ protein, glucose 1+, blood 3+, rbc 1210, wbc 102, bacteria 2+, urine yeast present Blood x2 and urine cultures taken -Imaging included CXR: Pulmonary nodular densities in the lower lung zone on the right CTAP: Nephrostomy tubes are in satisfactory position, no hydronephrosis -In the ED, patient was given 250 ml NS IV x1, tylenol, zofran, cefepime 50 mls x1, ketorolac 30 mg IV x1, dilaudid 1 mg x1, vancomycin 1,000 mg x1, Fluconazole 400 mg x1, mag sulfate 2 gm x1. -Patient was admitted for workup and management of UTI. Past Medical History: above Surgical History: x1 Social History: Patient lives in [place] with , denies any tobacco, alcohol or illicit drug use. Current Medications: hydralazine 50 mg, carvedilol 25 mg, amlodipine, cefuroxime, norco, iron supplements, famotidine 20 mg, parker-mj, senna Allergies: No known drug allergies 02/14/2025: Labs reviewed and patient examined at the bedside. 02/15/2025: Labs reviewed and patient examined at the bedside. BUN:15 Cr:1.9, eGFR:33, Urine Output:1.4 L yesterday. Currently no other complains. Will continue on antibiotics for UTI. Showing good urine output and renal function showed slight improvement. No need for hemodialysis. After discharge patient must get oncologic and surgical treatment for her bladder mass as soon as possible to prevent further complications. Exam Vital Signs Temp Pulse Resp BP Pulse Ox O2 Del Method 97.7 F 61 17 151/71 H 99 Room Air 02/15/25 08:00 02/15/25 08:45 02/15/25 08:00 02/15/25 08:45 02/15/25 08:00 02/15/25 08:00 Narrative Exam Narrative Exam General: well nourished, AAO x3 Eye: normal conjunctiva, no scleral icterus HENT: Normocephalic, atraumatic, hearing intact to conversation at normal volume, moist oral mucosa Neck: Supple, non-tender, no JVD, no lymphadenopathy Lungs: Non-labored respirations, symmetric chest rise, Clear to auscultate bilaterally, No wheezing, rhonchi, crackles Heart: Peripheral pulses intact bilaterally, Regular Rate and Rhythm. Abdomen: Soft, non-tender, non-distended, no palpable masses, Bilateral nephrostomy insertion site at lower back. Musculoskeletal: Normal range of motion and strength, No cyanosis or edema, No visible joint swelling Skin: Skin is warm, dry, no rashes or lesions. IJ PermCath Psychiatric: Cooperative, appropriate mood and affect, Awake and alert, agitated Neuro: Cranial nerves II-XII grossly intact. Strength 5/5 throughout. Sensations intact to light touch. Objective Labs 02/16/25 04:40 02/16/25 04:40 Labs: Laboratory Results - last 24 hr 02/13/25 02/15/25 21:58 04:35 WBC 10.7 RBC 3.49 L Hgb 9.3 L Hct 29.6 L MCV 85 MCH 26.6 MCHC 31.4 RDW Std Deviation 53.8 H Plt Count 336 D Neut % (Auto) 66 Lymph % (Auto) 22 [place] % (Auto) 8 Eos % (Auto) 2 Baso % (Auto) 1 Neut # (Auto) 7.1 Lymph # (Auto) 2.3 [place] # (Auto) 0.9 H Eos # (Auto) 0.3 Baso # (Auto) 0.1 Immature Gran # (Auto) 0.04 H Absolute Nucleated RBC 0.00 Immature Gran % 0 Nucleated RBC % 0 PT 10.9 INR 1.0 APTT 33.0 Sodium 133 L Potassium 4.3 Chloride 99 Carbon Dioxide 23.7 Anion Gap 10 BUN 15 Creatinine 1.9 H Estim Creat Clear Calc 39.0 L eGFR 33 L BUN/Creatinine Ratio 8 L Glucose 175 H Calculated Osmolality 271 L Calcium 9.1 Corrected Calcium 9.1 Phosphorus 3.6 Magnesium 1.8 Total Bilirubin 0.3 AST 12 ALT 18 Alkaline Phosphatase 120 H Total Protein 7.2 Albumin 4.0 D Globulin 3.2 Albumin/Globulin Ratio 1.3 Blood Type O Positive Antibody Screen NEGATIVE Blood Bank Wristband ID Yes Quality Measures Quality Measures VTE prophylaxis Assessment & Plan Assessment Current Active Medications: Generic Name Dose Route Start Last Admin Trade Name Freq PRN Reason Stop Dose Admin Acetaminophen 650 mg 02/14/25 01:10 Acetaminophen 325 Mg Tablet PO 03/16/25 01:09 Q6H PRN FEVER >100.4 Hydrocodone Bitart/Acetaminophen 1 tab 02/14/25 07:14 02/14/25 13:30 Hydrocodone/Apap 5/325 Tablet PO 02/19/25 07:13 1 tab Q4HR PRN Administration Pain 4-6 Amlodipine Besylate 10 mg 02/14/25 09:00 02/15/25 08:45 Amlodipine Besylate 5 Mg Tablet PO 03/16/25 08:59 10 mg QDAY CLEMENTINE Administration Carvedilol 25 mg 02/14/25 09:00 02/15/25 08:45 Carvedilol 12.5 Mg Tablet PO 03/16/25 08:59 25 mg BID CLEMENTINE Administration Dextrose 25 ml 02/14/25 01:26 Dextrose 50%-Water Inj 50 Ml Syringe IV 03/16/25 01:25 Q15MIN PRN BG 50-70 responsive npo pt Dextrose 50 ml 02/14/25 01:26 Dextrose 50%-Water Inj 50 Ml Syringe IV 03/16/25 01:25 Q15MIN PRN BG <50 OR BG <70 & pt unresponsive Famotidine 20 mg 02/14/25 09:00 02/15/25 08:45 Famotidine 20 Mg Tablet PO 03/16/25 08:59 20 mg BID CLEMENTINE Administration Glucagon 1 mg 02/14/25 01:26 Glucagon Inj 1 Mg Vial IM Q15MIN PRN BG <70, and no IV access Heparin Sodium (Porcine) 5,000 unit 02/14/25 10:00 02/15/25 08:45 Heparin Sod Inj 5000 Unit/Ml Vial SC 02/28/25 09:59 5,000 unit Q12HR CLEMENTINE Administration Hydromorphone HCl 0.5 mg 02/14/25 07:14 02/15/25 07:33 Hydromorphone Inj 2 Mg/Ml Vial IVP 02/19/25 01:14 0.5 mg Q4H PRN Administration Pain 7-10 Cefepime HCl 2 gm/ Sodium 50 mls @ 100 mls/hr 02/14/25 09:00 02/15/25 08:44 Chloride IV 02/21/25 08:59 100 mls/hr QDAY CLEMENTINE Administration Insulin Degludec 18 unit 02/14/25 09:00 02/15/25 08:44 Insulin Degludec 5 Unit/0.05 Ml (Per 5 Units) MS 03/16/25 08:59 18 unit QDAY CLEMENTINE Administration Insulin Human Lispro 0 unit 02/14/25 07:30 02/15/25 07:28 Insulin Lispro (Admelog) 1 Unit/0.01 Ml Unit MS 03/16/25 07:29 Not Given ACHS [facility] Protocol Labetalol HCl 10 mg 02/14/25 16:23 Labetalol Inj 5 Mg/Ml Vial 20 Ml IVP Q10MIN PRN hypertension Ondansetron HCl 4 mg 02/14/25 01:10 02/14/25 09:02 Ondansetron Inj 2 Mg/Ml Inj 2 Ml IVP 10/20/25 01:09 4 mg Q6H PRN Administration NAUSEA OR VOMITING Protocol Sennosides 1 tab 02/14/25 01:10 02/15/25 01:49 Senna Tablet PO 03/16/25 01:09 1 tab QDAY PRN Administration constipation Protocol Plan 44 y/o F with PMH of HTN, Insulin dependent-T2DM, GERD, hx valley fever treated 1.5 months ago, non-malignant bladder mass, bilateral hydronephrosis s/p bilateral nephrostomy, acute renal failure on HD /Sun w/ Dr. Pineda (started 01/06/2025) presented to the hospital on 02/13/2025 due to 2 days of constant dull pain around her left nephrostomy insertion site along with fever. Patient has been admitted for managment of UTI, SAPPHIRE and hemodialysis. Nephrology has been consulted for management of SAPPHIRE and hemodialysis. #SAPPHIRE, post renal 2/2 Urinary retention 2/2 Bladder mass. #on Hemodialysis (Sunday, Sunday) -On admission: BUN: 15, Cr:2.0, eGFR:31. -On admission UA (02/13): [place] Turbid urine, Urine protein:3+, Urine Glucose:1+, Urine Blood: 3+, Urine Nitrite positive, Urine leukocyte esterase positive, Urine RBC 1210, Urine WBC:102, Urine Bacteria 2+ -Repeat UA after 3 hours(02/14): Clear Yellow Urine, Urine protein:1+, Urine Glucose: negative, Urine blood: Trace, Urine Nitrite:Positive, Urine Leukocyte esterase: positive, Urine RBC:<1, Urine WBC:14, Urine Bacteria:Rare -CXR (02/13/2025): Nodular opacities in the right lower lung zone, Right internal jugular dialysis catheter satisfactory position, Normal heart size, Mild mild vascular congestion, The osseous structures are intact. -CTAP(02/13/2025): Nephrostomy tubes are in satisfactory position, no hydronephrosis -Patient had Acute Renal Failure in November 2024 due to urinary retention caused by bladder mass. Patient elevated Cr levels and decreased GFR likely contributory to the stress exerted by untreated bladder mass and nephrostomy tube to her kidneys. Unless her bladder mass is treated, nephrostomy tube cannot be removed and her kidney function is unlikely to improve-needing dialysis. -Currently, BUN:15 Cr:1.9, eGFR:33, Urine Output:1.4 L. Plan: -Patient received hemodialysis on Sunday. Currently, patient does not need hemodialysis-excellent urine output -Avoid nephrotoxins -Renally dose medication #UTI -Patient's presention was left sided pain near nephrostomy tube insertion site with fever. -Likely infection due to the nephrostomy tube. -Elevated WBC and UA showing presence of UTI. -Received Vancomycin and Ceftriaxone Plan: -Currently on Cefepime 2g IV qd. -Will continue to monitor. #Insulin Dependent T2DM #HTN #Anemia, normocytic -Management per Primary Hospitalist team Thank you for allowing us to participate in the care of your patient. Assessment and plan discussed with my attending physician Dr. Miriam Silva (PGY-1)- Internal medicine resident Attending Provider Attestation/Addendum patient currently seen and examined with resident physician Dr. Silva. Note reviewed, agree with findings and recommendations. Patient currently seen in medical floor. at bedside. Complaining of severe pain from the nephrostomy tube sites. Good urine output from nephrostomy tubes. Creatinine stable. Electrolytes stable. I am going to hold off on dialysis today and see if there is any renal recovery. In the interim patient being treated for complicated UTI due to nephrostomy tubes. Spoke to primary team.
[2025-02-15] MEDS: INSULIN LISPRO (AdmeLOG) 1 UNIT/0.01 ML UNIT SC ×3 (11:17→21:05)
[2025-02-15] MEDS: HYDROcodone/APAP 5/325 TABLET 1 TAB PO (11:22)
--- NOTE | 2025-02-15 13:39 | PC.SS ---
Rounding: Pending UA cultures, DC plan home
--- NOTE | 2025-02-15 18:19 | PD.RESPRO ---
Documentation for date of: 02/15/25 Subjective Subjective Interval history: Patient is seen and examined at bedside. No acute or overnight events. Reported that she is doing good and pain is well-controlled. Also endorsed that her right nephrostomy tube drains more than the left nephrostomy tube Reported that she is pending to see urologist for reimplantation of ureters and taking the tubes out, pending insurance approval per patient Urine culture showed 3 gram-negative rods, pending final cultures. Will continue antibiotics and will wait for final cultures. Exam Vital Signs Temp Pulse Resp BP Pulse Ox O2 Del Method 97.2 F 55 L 18 126/67 98 Room Air 02/15/25 16:00 02/15/25 16:00 02/15/25 16:00 02/15/25 16:00 02/15/25 16:02/15/25 16:00 Narrative Exam General: Awake. HEENT: Normocephalic, atraumatic, mucous membranes moist. Heart: Regular rate and rhythm, no murmurs. Lungs: Clear to auscultation with no wheezing or crackles. Abdomen: Soft, nondistended, nontender, positive bowel sounds. ?No guarding or rebound tenderness. noted nephrostomy tubes bilaterally and draining well Neurologic: Alert and oriented x3, no gross neurological deficit, and patient able to move all 4 extremities. Extremities: No edema. Skin: No rash or ecchymoses. Objective Labs 02/16/25 04:40 02/16/25 04:40 Labs: Laboratory Results - last 24 hr 02/13/25 02/15/25 21:58 04:35 WBC 10.7 RBC 3.49 L Hgb 9.3 L Hct 29.6 L MCV 85 MCH 26.6 MCHC 31.4 RDW Std Deviation 53.8 H Plt Count 336 D Neut % (Auto) 66 Lymph % (Auto) 22 [place] % (Auto) 8 Eos % (Auto) 2 Baso % (Auto) 1 Neut # (Auto) 7.1 Lymph # (Auto) 2.3 [place] # (Auto) 0.9 H Eos # (Auto) 0.3 Baso # (Auto) 0.1 Immature Gran # (Auto) 0.04 H Absolute Nucleated RBC 0.00 Immature Gran % 0 Nucleated RBC % 0 PT 10.9 INR 1.0 APTT 33.0 Sodium 133 L Potassium 4.3 Chloride 99 Carbon Dioxide 23.7 Anion Gap 10 BUN 15 Creatinine 1.9 H Estim Creat Clear Calc 39.0 L eGFR 33 L BUN/Creatinine Ratio 8 L Glucose 175 H Calculated Osmolality 271 L Calcium 9.1 Corrected Calcium 9.1 Phosphorus 3.6 Magnesium 1.8 Total Bilirubin 0.3 AST 12 ALT 18 Alkaline Phosphatase 120 H Total Protein 7.2 Albumin 4.0 D Globulin 3.2 Albumin/Globulin Ratio 1.3 Blood Type O Positive Antibody Screen NEGATIVE Blood Bank Wristband ID Yes Quality Measures Quality Measures VTE prophylaxis Assessment & Plan Assessment Current Active Medications: Generic Name Dose Route Start Last Admin Trade Name Freq PRN Reason Stop Dose Admin Acetaminophen 650 mg 02/15/25 12:11 Acetaminophen 325 Mg Tablet PO 03/16/25 01:09 Q6H PRN FEVER >100.4 Hydrocodone Bitart/Acetaminophen 1 tab 02/14/25 07:14 02/15/25 11:22 Hydrocodone/Apap 5/325 Tablet PO 02/19/25 07:13 1 tab Q4HR PRN Administration Pain 4-6 Amlodipine Besylate 10 mg 02/14/25 09:00 02/15/25 08:45 Amlodipine Besylate 5 Mg Tablet PO 03/16/25 08:59 10 mg QDAY CLEMENTINE Administration Carvedilol 25 mg 02/14/25 09:00 02/15/25 08:45 Carvedilol 12.5 Mg Tablet PO 03/16/25 08:59 25 mg BID CLEMENTINE Administration Dextrose 25 ml 02/14/25 01:26 Dextrose 50%-Water Inj 50 Ml Syringe IV 03/16/25 01:25 Q15MIN PRN BG 50-70 responsive npo pt Dextrose 50 ml 02/14/25 01:26 Dextrose 50%-Water Inj 50 Ml Syringe IV 03/16/25 01:25 Q15MIN PRN BG <50 OR BG <70 & pt unresponsive Famotidine 20 mg 02/14/25 09:00 02/15/25 08:45 Famotidine 20 Mg Tablet PO 03/16/25 08:59 20 mg BID CLEMENTINE Administration Glucagon 1 mg 02/14/25 01:26 Glucagon Inj 1 Mg Vial IM Q15MIN PRN BG <70, and no IV access Heparin Sodium (Porcine) 5,000 unit 02/14/25 10:00 02/15/25 08:45 Heparin Sod Inj 5000 Unit/Ml Vial SC 02/28/25 09:59 5,000 unit Q12HR CLEMENTINE Administration Hydromorphone HCl 0.5 mg 02/14/25 07:14 02/15/25 07:33 Hydromorphone Inj 2 Mg/Ml Vial IVP 02/19/25 01:14 0.5 mg Q4H PRN Administration Pain 7-10 Cefepime HCl 2 gm/ Sodium 50 mls @ 100 mls/hr 02/15/25 21:00 Chloride IV 02/21/25 08:59 Q12HR CLEMENTINE Insulin Degludec 18 unit 02/14/25 09:00 02/15/25 08:44 Insulin Degludec 5 Unit/0.05 Ml (Per 5 Units) SC 03/16/25 08:59 18 unit QDAY CLEMENTINE Administration Insulin Human Lispro 0 unit 02/14/25 07:30 02/15/25 17:13 Insulin Lispro (Admelog) 1 Unit/0.01 Ml Unit SC 03/16/25 07:29 2 unit ACHS CLEMENTINE Administration Protocol Labetalol HCl 10 mg 02/14/25 16:23 Labetalol Inj 5 Mg/Ml Vial 20 Ml IVP Q10MIN PRN hypertension Ondansetron HCl 4 mg 02/14/25 01:10 02/14/25 09:02 Ondansetron Inj 2 Mg/Ml Inj 2 Ml IVP 03/16/25 01:09 4 mg Q6H PRN Administration NAUSEA OR VOMITING Protocol Sennosides 1 tab 02/14/25 01:10 02/15/25 01:49 Senna Tablet PO 03/16/25 01:09 1 tab QDAY PRN Administration constipation Protocol Plan Patient is a 44 year old female with past medical history HTN, ID-T2DM, GERD, hx valley fever treated non-malignant bladder mass, bilateral hydronephrosis s/p bilateral nephrostomy, acute renal failure on HD T[place]il/Alfa w/ Dr. Pineda (started 01/06/2025) presented to the ED after having L flank pain with fever. Patient was admitted for workup and management of UTI. #Pyelonephritis #UTI, complicated Presented with fever, n/v, left flank pain, erythema of left nephrostomy tube, likely infection of left tube. Meets 3/4 SIRS criteria on admission: Temp 101.5, tachypnea, and WBC 15.6 but no evidence of end organ damage. Creatinine elevated but at baseline. CRP 21.3. UA showed evidence of UTI, WBC 14, RBC <1 CT A/P showed nephrostomy tubes in satisfactory position, no hydronephrosis. S/p fluids, cefepime, vancomycin, fluconazole x 1 in ED. Plan: - Follow up urine and blood cultures - Cefepime 2 gm IV (02/14- - CTM left nephrostomy tube drainage - Consider replacement if infection worsens #Urothelial papilloma with chronic cystitis #Acute renal failure #Hemodialysis Sunday/Sunday (12/15/24) #S/p bilateral nephrostomy tubes (12/19/24) On previuos admission, was found to have posterior bladder mass diagnosed as urothelial papilloma with chronic cystitis. This obstruction resulted in bilateral hydronephrosis and acute renal failure to the point that patient required hemodialysis. Nephrostomy tubes were eventually placed by urologist Dr. Friedman on 12/19/24. However right tube became obstructed and was removed but unable to be replaced. Was discharged from [facility] with left nephrostomy tube and scheduled for close outpatient follow-up with Dr. Forbes. Patient reports that after discharge she went to [facility] where right nephrostomy tube was reinserted, continues to drain well. Was unable to have mass removed at [facility] due to lack of urology service. Follows [employer] Dr. Pineda, on Sunday/Sunday hemodialysis schedule. Last HD session 02/07. Baseline creatinine 1.8-3.4. Creatinine 2.0 on admission. Plan: - Consulted [employer] Dr. Pineda, appreciate recommendations - Will need higher level care for urology to remove bladder mass, Patient reported that she is following upon that - Pain regimen with Tylenol and [place] prn #Insulin Dependent T2DM Home meds stated insulin 30 units long acting, 5 units with meals Upon chart review, 18 units long acting Degludec Glucose 224 on admission Plan: - Degludec 18 units nightly - SSI - Accu-checks - CTM glucose #HTN Home meds include carvedilol 25 mg po bid, hydralazine 50 mg 1 tab/day, amlodipine 10 mg daily. - Continue home dose carvedilol and amlodipine - Hold hydralazine for now - IV labetolol prn - CTM BP #Anemia, normocytic Likely due to EMILY. Iron panel 12/11/24 showed low iron and saturation, TIBC and iron saturated iron-binding within normal limits. Patient takes home iron supplements. No signs or symptoms of bleeding at this time. Plan: - Hold home iron in setting of infection - CTM hemoglobin - Transfuse if Hgb <7 #Pulmonary masses, stable #Hx Valley Fever Visualized on repeat imaging since 03/21/2024. Right midlung mass 25-30mm and right lower lobe mass 18-22mm mass. CT A/P 02/13: Again noted pulmonary masses in the right middle lobe and right lower lobe noted on the 01/28/2025 exam Plan: - Fairly stable, will CTM Health Maintenance Disposition: med tele DVT prophylaxis: heparin GI prophylaxis: famotidine Diet: carb consistent CODE STATUS: FULL Patient plan of care was discussed with the attending physician, Dr. Jones. Hi Walker, PGY2 Attending Provider Attestation/Addendum I have examined the patient, reviewed labs and imaging findings, discussed the case with the resident(s), and reviewed entered orders. I agree with the plan of care as outlined in this note, with these additional summaries/recommendations: Patient seen at bedside. No acute overnight events. Patient admitted for complicated urinary tract infection in the setting of nephrostomy tubes and bladder mass. Urinalysis indicative of UTI. Urine and blood cultures taken. Continue broad-spectrum antibiotics. Blood cxs preliminary show no growth at 48 hours. Ur cx grew enterobacter cloacae and pseudo fluorescens/putida and speciation of third GNR organisms still pending at this time. We will await final speciation of culture results before patient can be safely discharged. Bilateral nephrostomy tubes appear to be draining well and we will monitor output closely. Patient has a history of benign bladder mass and is pending outpatient urologic surgical intervention. Patient has been receiving dialysis although renal function currently stable with no significant electrolyte abnormalities and no plans for future dialysis for now. Renally dose medications and avoid nephrotoxic agents. Case discussed with nephrology and we will remove tunneled dialysis catheter today. Patient was counseled extensively on the importance of following up outpatient with urology. Continue home antihypertensives as needed. Continue basal bolus insulin for diabetes mellitus type 2 with Accu-Cheks. Target blood sugar of 140-180 while hospitalized. Patient has anemia of chronic disease and no evidence of bleeding at this time. Continue daily hematology and chemistry panel. Patient and patient's updated on the plan and in agreement. All questions answered to satisfaction. Please see residents note for additional details and management. Dr. Robert MD
[2025-02-16] VITALS (13 sets, daily range): BP systolic 133–159; BP diastolic 62–78; PULSE 58–70; RESP 12–18; TEMP 36.1–36.6; O2SAT 96–100
[2025-02-16] MEDS: HYDROmorphone INJ 2 MG/ML VIAL 0.5 MG IVP ×4 (03:21→22:13)
[2025-02-16 06:04] LABS: Basophils # (Auto) 0.1 Thou/mm3 (0.0-0.2); Basophils % (Auto) 1 % (0-2.5); Eosinophils # (Auto) 0.3 Thou/mm3 (0.0-0.5); Eosinophils % (Auto) 4 % (0-10); Hematocrit 28.7 % (36.0-46.0); Hemoglobin 9.1 g/dL (12.0-16.0); Immature Granulocytes Auto 0.03 Thou/mm3 (0.00-0.00); Lymphocytes # (Auto) 2.2 Thou/mm3 (1.0-4.8); Lymphocytes % (Auto) 30 % (10-50); Mean Corpuscular HGB Conc 31.7 g/dl (31.0-37.0); Mean Corpuscular Hemoglobin 26.5 pg (25.0-35.0); Mean Corpuscular Volume 83 fL (80-100); Monocytes # (Auto) 0.6 Thou/mm3 (0.0-0.8); Monocytes % (Auto) 7 % (0-12); Neutrophils # (Auto) 4.3 Thou/mm3 (1.8-7.7); Neutrophils % (Auto) 58 % (37-80); Nucleated Red Blood Cell # 0.00 Thou/mm3 (0.00-0.00); Nucleated Red Blood Cell % 0 /100 WBC (0); Platelet Count 348 Thou/mm3 (140-440); RDW Standard Deviation 52.5 fL (36.4-46.3); Red Blood Count 3.44 Miln/mm3 (4.00-5.20); White Blood Count 7.4 Thou/mm3 (3.6-11.0)
[2025-02-16 06:34] LABS: Alanine Aminotransferase 12 U/L (10-49); Albumin, Serum 3.6 gm/dL (3.5-5.0); Albumin/Globulin Ratio 1.2 (1.2-2.2); Alkaline Phosphatase 108 U/L (46-116); Anion Gap 8 (7-16); Aspartate Amino Transferase 10 U/L (0-34); BUN/Creatinine Ratio 9 Ratio (12-20); Bilirubin,Total 0.2 mg/dL (0.3-1.2); Blood Urea Nitrogen 15 mg/dL (9-23); Calcium 9.1 mg/dL (8.3-10.6); Calcium (Corrected) 9.4 mg/dL (8.5-10.1); Carbon Dioxide 23.8 mMol/L (20.0-31.0); Chloride 104 mMol/L (98-107); Creatinine (Component) 1.6 mg/dL (0.6-1.3); Estimated Creatinine Clearance 46.3 mL/min (>60); Globulin 3.0 gm/dL (2.3-3.5); Glucose 186 mg/dL (74-106); Magnesium 1.8 mg/dL (1.6-2.6); Osmolality,Calculated 277 (275-295); Phosphorous 3.8 mg/dL (2.4-5.1); Potassium 4.7 mMol/L (3.4-5.1); Sodium 136 mMol/L (136-145); Total Protein 6.6 gm/dL (5.7-8.2); eGFR 41 See Note
[2025-02-16] MEDS: INSULIN LISPRO (AdmeLOG) 1 UNIT/0.01 ML UNIT SC ×2 (07:32→16:54)
--- NOTE | 2025-02-16 08:21 | XR_ITS ---
Examination: Venous access removal permanent tunneled dialysis catheter Fluoroscopy AP chest 2 views Date and time: February 16, 2025 1332 hours INDICATIONS: No longer needed for the dialysis catheter or dialysis TECHNIQUE AND FINDINGS: Informed consent provided. Timeout performed. Skin prepped over the entrance site of the permanent right internal jugular dialysis catheter, hand hygiene maximum barrier sterile technique 1% lidocaine administered for local anesthesia Careful dissection around the permanent tunneled dialysis catheter was successful removal Estimated blood loss 3 cc Patient instable condition at completion procedure IMPRESSION: Successful venous assess removal permanent tunneled dialysis catheter Fluoroscopy 0.1 minute radiation dose 0.15 milligray
[2025-02-16] MEDS: INSULIN DEGLUDEC 5 UNIT/0.05 ML (PER 5 UNITS) 18 UNIT SC ×2 (08:50→21:18)
[2025-02-16] MEDS: CEFEPIME INJ 2 GM in SODIUM CHLORIDE 0.9% (Popper) 50 ML IV ×2 (08:50→21:14)
[2025-02-16] MEDS: FAMOTIDINE 20 MG TABLET PO ×2 (08:52→21:16)
--- NOTE | 2025-02-16 08:57 | PD.RESPRO ---
Documentation for date of: 02/16/25 Subjective Subjective Interval history: 44 y/o F with PMH of HTN, Insulin dependent-T2DM, GERD, hx valley fever treated 1.5 months ago, non-malignant bladder mass, bilateral hydronephrosis s/p bilateral nephrostomy, acute renal failure on HD Tu/Sun w/ Dr. Pineda (started 01/06/2025) presented to the hospital on 02/13/2025 due to 2 days of constant dull pain around her left nephrostomy insertion site along with fever. At [facility], she underwent CT scan to evaluate for possible malposition or dysfunction of the nephrostomy tube, which comfirmed appropriate placement and drainage. The nephrostomy was originally placed in November 2024 at [facility] for significant hydronephrosis secondary to obstruction from a bladder mass. After discharge, she was initially followed by an oncologist in [place], but surgical resection was not feasible, and she was referred to another oncologist. Due to insurance barriers, however, she has been unable to establish further oncologic care for over one month. She also reported missing her scheduled hemodialysis session on sunday this week, but was able to attend treatment on . Patient complains of vomiting and nausea. Denies chest pain, palpation, SOB, abdominal pain. Patient has been admitted for management of UTI, SAPPHIRE and hemodialysis. Nephrology has been consulted for management of SAPPHIRE and hemodialysis. ED course: -Initial vitals were 97.8 F, HR 68, RR 17, BP 139/69, 100% O2 RA -Labs significant for WBC 15.6, Hgb 10.3, Na 132, Cr 2.0, glucose 224, mag 1.5, alk phos 144, CRP 21.3, BNP 108 UA: pH 7.5, 3+ protein, glucose 1+, blood 3+, rbc 1210, wbc 102, bacteria 2+, urine yeast present Blood x2 and urine cultures taken -Imaging included CXR: Pulmonary nodular densities in the lower lung zone on the right CTAP: Nephrostomy tubes are in satisfactory position, no hydronephrosis -In the ED, patient was given 250 ml NS IV x1, tylenol, zofran, cefepime 50 mls x1, ketorolac 30 mg IV x1, dilaudid 1 mg x1, vancomycin 1,000 mg x1, Fluconazole 400 mg x1, mag sulfate 2 gm x1. -Patient was admitted for workup and management of UTI. Past Medical History: above Surgical History: x1 Social History: Patient lives in [place] with , denies any tobacco, alcohol or illicit drug use. Current Medications: hydralazine 50 mg, carvedilol 25 mg, amlodipine, cefuroxime, norco, iron supplements, famotidine 20 mg, parker-mj, senna Allergies: No known drug allergies 02/14/2025: Labs reviewed and patient examined at the bedside. 02/15/2025: Labs reviewed and patient examined at the bedside. BUN:15 Cr:1.9, eGFR:33, Urine Output:1.4 L yesterday. Currently no other complains. Will continue on antibiotics for UTI. Showing good urine output and renal function showed slight improvement. No need for hemodialysis. After discharge patient must get oncologic and surgical treatment for her bladder mass as soon as possible to prevent further complications. 02/16/2025: Labs reviewed and patient examined at the bedside. Patient endorses Nausea and vomiting. Urine is clear and yellow. Nephrostomy tube draining well. Cr improved to 1.6. Kidney function is improving. Will take dialysis cathether out. Exam Vital Signs Temp Pulse Resp BP Pulse Ox O2 Del Method 97.6 F 59 L 17 134/62 H 97 Room Air 02/16/25 04:00 02/16/25 04:00 02/16/25 04:00 02/16/25 04:00 02/16/25 04:00 02/16/25 04:00 Narrative Exam General: well nourished, AAO x3 Eye: normal conjunctiva, no scleral icterus HENT: Normocephalic, atraumatic, hearing intact to conversation at normal volume, moist oral mucosa Neck: Supple, non-tender, no JVD, no lymphadenopathy Lungs: Non-labored respirations, symmetric chest rise, Clear to auscultate bilaterally, No wheezing, rhonchi, crackles Heart: Peripheral pulses intact bilaterally, Regular Rate and Rhythm. Abdomen: Soft, non-tender, non-distended, no palpable masses, Bilateral nephrostomy insertion site at lower back. Musculoskeletal: Normal range of motion and strength, No cyanosis or edema, No visible joint swelling Skin: Skin is warm, dry, no rashes or lesions. IJ PermCath Psychiatric: Cooperative, appropriate mood and affect, Awake and alert, agitated Neuro: Cranial nerves II-XII grossly intact. Strength 5/5 throughout. Sensations intact to light touch. Objective Labs 02/18/25 04:31 02/18/25 04:31 Labs: Laboratory Results - last 24 hr 02/16/25 04:40 WBC 7.4 RBC 3.44 L Hgb 9.1 L Hct 28.7 L MCV 83 MCH 26.5 MCHC 31.7 RDW Std Deviation 52.5 H Plt Count 348 Neut % (Auto) 58 Lymph % (Auto) 30 Power % (Auto) 7 Eos % (Auto) 4 Baso % (Auto) 1 Neut # (Auto) 4.3 Lymph # (Auto) 2.2 Power # (Auto) 0.6 Eos # (Auto) 0.3 Baso # (Auto) 0.1 Immature Gran # (Auto) 0.03 H Absolute Nucleated RBC 0.00 Immature Gran % 0 Nucleated RBC % 0 Sodium 136 Potassium 4.7 Chloride 104 Carbon Dioxide 23.8 Anion Gap 8 BUN 15 Creatinine 1.6 H Estim Creat Clear Calc 46.3 L eGFR 41 L BUN/Creatinine Ratio 9 L Glucose 186 H Calculated Osmolality 277 Calcium 9.1 Corrected Calcium 9.4 Phosphorus 3.8 Magnesium 1.8 Total Bilirubin 0.2 L AST 10 ALT 12 Alkaline Phosphatase 108 Total Protein 6.6 Albumin 3.6 Globulin 3.0 Albumin/Globulin Ratio 1.2 Quality Measures Quality Measures VTE prophylaxis Assessment & Plan Assessment Current Active Medications: Generic Name Dose Route Start Last Admin Trade Name Freq PRN Reason Stop Dose Admin Acetaminophen 650 mg 02/15/25 12:11 Acetaminophen 325 Mg Tablet PO 03/16/25 01:09 Q6H PRN FEVER >100.4 Hydrocodone Bitart/Acetaminophen 1 tab 02/14/25 07:14 02/15/25 11:22 Hydrocodone/Apap 5/325 Tablet PO 02/19/25 07:13 1 tab Q4HR PRN Administration Pain 4-6 Amlodipine Besylate 10 mg 02/14/25 09:00 02/15/25 08:45 Amlodipine Besylate 5 Mg Tablet PO 03/16/25 08:59 10 mg QDAY CLEMENTINE Administration Carvedilol 25 mg 02/14/25 09:00 02/15/25 21:02 Carvedilol 12.5 Mg Tablet PO 03/16/25 08:59 25 mg BID CLEMENTINE Administration Dextrose 25 ml 02/14/25 01:26 Dextrose 50%-Water Inj 50 Ml Syringe IV 03/16/25 01:25 Q15MIN PRN BG 50-70 responsive npo pt Dextrose 50 ml 02/14/25 01:26 Dextrose 50%-Water Inj 50 Ml Syringe IV 03/16/25 01:25 Q15MIN PRN BG <50 OR BG <70 & pt unresponsive Famotidine 20 mg 02/14/25 09:00 02/15/25 21:01 Famotidine 20 Mg Tablet PO 03/16/25 08:59 20 mg BID CLEMENTINE Administration Glucagon 1 mg 02/14/25 01:26 Glucagon Inj 1 Mg Vial IM Q15MIN PRN BG <70, and no IV access Heparin Sodium (Porcine) 5,000 unit 02/14/25 10:00 02/16/25 08:47 Heparin Sod Inj 5000 Unit/Ml Vial SC 02/28/25 09:59 Not Given Q12HR CLEMENTINE Hydromorphone HCl 0.5 mg 02/14/25 07:14 02/16/25 07:33 Hydromorphone Inj 2 Mg/Ml Vial IVP 02/19/25 01:14 0.5 mg Q4H PRN Administration Pain 7-10 Cefepime HCl 2 gm/ Sodium 50 mls @ 100 mls/hr 02/15/25 21:00 02/15/25 20:58 Chloride IV 02/21/25 08:59 100 mls/hr Q12HR CLEMENTINE Administration Insulin Degludec 18 unit 02/14/25 09:00 02/15/25 08:44 Insulin Degludec 5 Unit/0.05 Ml (Per 5 Units) SC 03/16/25 08:59 18 unit QDAY CLEMENTINE Administration Insulin Human Lispro 0 unit 02/14/25 07:30 02/16/25 07:32 Insulin Lispro (Admelog) 1 Unit/0.01 Ml Unit SC 03/16/25 07:29 1 unit ACHS CLEMENTINE Administration Protocol Labetalol HCl 10 mg 02/14/25 16:23 Labetalol Inj 5 Mg/Ml Vial 20 Ml IVP Q10MIN PRN hypertension Ondansetron HCl 4 mg 02/14/25 01:10 02/14/25 09:02 Ondansetron Inj 2 Mg/Ml Inj 2 Ml IVP 03/16/25 01:09 4 mg Q6H PRN Administration NAUSEA OR VOMITING Protocol Sennosides 1 tab 02/14/25 01:10 02/15/25 01:49 Senna Tablet PO 03/16/25 01:09 1 tab QDAY PRN Administration constipation Protocol Plan 44 y/o F with PMH of HTN, Insulin dependent-T2DM, GERD, hx valley fever treated 1.5 months ago, non-malignant bladder mass, bilateral hydronephrosis s/p bilateral nephrostomy, acute renal failure on HD /Sun w/ Dr. Pineda (started 01/06/2025) presented to the hospital on 02/13/2025 due to 2 days of constant dull pain around her left nephrostomy insertion site along with fever. Patient has been admitted for managment of UTI, SAPPHIRE and hemodialysis. Nephrology has been consulted for management of SAPPHIRE and hemodialysis. #SAPPHIRE, post renal 2/2 Urinary retention 2/2 Bladder mass. #on Hemodialysis (Sunday, Sunday) -On admission: BUN: 15, Cr:2.0, eGFR:31. -On admission UA (02/13): [place] Turbid urine, Urine protein:3+, Urine Glucose:1+, Urine Blood: 3+, Urine Nitrite positive, Urine leukocyte esterase positive, Urine RBC 1210, Urine WBC:102, Urine Bacteria 2+ -Repeat UA after 3 hours(02/14): Clear Yellow Urine, Urine protein:1+, Urine Glucose: negative, Urine blood: Trace, Urine Nitrite:Positive, Urine Leukocyte esterase: positive, Urine RBC:<1, Urine WBC:14, Urine Bacteria:Rare -CXR (02/13/2025): Nodular opacities in the right lower lung zone, Right internal jugular dialysis catheter satisfactory position, Normal heart size, Mild mild vascular congestion, The osseous structures are intact. -CTAP(02/13/2025): Nephrostomy tubes are in satisfactory position, no hydronephrosis -Patient had Acute Renal Failure in November 2024 due to urinary retention caused by bladder mass. Patient elevated Cr levels and decreased GFR likely contributory to the stress exerted by untreated bladder mass and nephrostomy tube to her kidneys. Unless her bladder mass is treated, nephrostomy tube cannot be removed and her kidney function is unlikely to improve-needing dialysis. -Currently, BUN:15 Cr:1.6, eGFR:41 Plan: -Patient received hemodialysis on Sunday. Currently, patient does not need hemodialysis-excellent urine output -Avoid nephrotoxins -Renally dose medication #UTI -Patient's presention was left sided pain near nephrostomy tube insertion site with fever. -Likely infection due to the nephrostomy tube. -Elevated WBC and UA showing presence of UTI. -Received Vancomycin and Ceftriaxone Plan: -Currently on Cefepime 2g IV qd. -Will continue to monitor. #Insulin Dependent T2DM #HTN #Anemia, normocytic -Management per Primary Hospitalist team Thank you for allowing us to participate in the care of your patient. Assessment and plan discussed with my attending physician Dr. Miriam Silva (PGY-1)- Internal medicine resident Attending Provider Attestation/Addendum patient currently seen and examined with resident physician Dr. Silva. Note reviewed, agree with findings and recommendations. Patient currently seen in medical floor. at bedside. Complaining of severe pain from the nephrostomy tube sites. Good urine output from nephrostomy tubes. Creatinine stable. Electrolytes stable. Patient has renal recovery-dialysis, dialysis catheter was discontinued. In the interim patient being treated for complicated UTI due to nephrostomy tubes. Spoke to primary team. Might need IV antibiotics. Dr Shaver on the case.
[2025-02-16] MEDS: LIDOCAINE INJ PF 1% 30 ML VIAL 7 ML INFL (14:06)
--- NOTE | 2025-02-16 16:01 | PC.SS ---
Follow up note: Final cultures are pending. On IV antibiotic. Remove dialysis cath. Pt will return home upon dc.
--- NOTE | 2025-02-16 16:15 | ESPR_ITS ---
<Statement entered by Hi Walker MD - 02/17/25 07:31> I have personally seen and examined the patient, agree with residents assessment and plan Patient plan of care was discussed with the attending physician, Dr. Robert Walker, PGY2 Documentation for date of: 02/16/25 Subjective Subjective Interval history: No acute overnight events. Technical Support Assistant Dr. Pineda recommended removal of tunneled dialysis catheter as patient appears to be improving. Bilateral nephrostomy tubes draining well, light-colored urine present in both bags. Preliminary urine cultures grew Enterobacter cloacae, GNR, and pseudo fluorescens/putida; sensitive to cefepime, will continue current antibiotic regimen. Blood cultures negative for 48 hours. Pending final urine culture and sensitivity. Anticipate discharge after final results. Patient will need to follow-up with her insurance regarding visit to outpatient urologist who can remove her bladder mass. Exam Vital Signs Temp Pulse Resp BP Pulse Ox O2 Del Method 97.8 F 66 16 157/71 H 98 Room Air 02/16/25 08:00 02/16/25 14:08 02/16/25 14:08 02/16/25 14:08 02/16/25 14:08 02/16/25 14:08 Narrative Exam Physical Exam General: Awake and in mild distress due to pain. Conversational and non-toxic appearing. HEENT: Normocephalic, atraumatic, mucous membranes moist. Heart: Regular rate and rhythm, normal S1 and S2, no murmurs. Lungs: Clear to auscultation with no wheezing or crackles. Abdomen: Soft, nondistended, nontender, positive bowel sounds. No guarding or rebound tenderness. : Bilateral nephrostomy tubes in back, draining well. Light yellow urine in both bags. No purulent drainage or erythema around insertion sites. Neurologic: Alert and oriented x3, no gross neurological deficit, and patient able to move all 4 extremities. Extremities: No edema. Skin: No rash or ecchymoses. Objective Labs 02/16/25 04:40 02/16/25 04:40 Labs: Laboratory Results - last 24 hr 02/16/25 04:40 WBC 7.4 RBC 3.44 L Hgb 9.1 L Hct 28.7 L MCV 83 MCH 26.5 MCHC 31.7 RDW Std Deviation 52.5 H Plt Count 348 Neut % (Auto) 58 Lymph % (Auto) 30 [place] % (Auto) 7 Eos % (Auto) 4 Baso % (Auto) 1 Neut # (Auto) 4.3 Lymph # (Auto) 2.2 [place] # (Auto) 0.6 Eos # (Auto) 0.3 Baso # (Auto) 0.1 Immature Gran # (Auto) 0.03 H Absolute Nucleated RBC 0.00 Immature Gran % 0 Nucleated RBC % 0 Sodium 136 Potassium 4.7 Chloride 104 Carbon Dioxide 23.8 Anion Gap 8 BUN 15 Creatinine 1.6 H Estim Creat Clear Calc 46.3 L eGFR 41 L BUN/Creatinine Ratio 9 L Glucose 186 H Calculated Osmolality 277 Calcium 9.1 Corrected Calcium 9.4 Phosphorus 3.8 Magnesium 1.8 Total Bilirubin 0.2 L AST 10 ALT 12 Alkaline Phosphatase 108 Total Protein 6.6 Albumin 3.6 Globulin 3.0 Albumin/Globulin Ratio 1.2 Quality Measures Quality Measures VTE prophylaxis Assessment & Plan Assessment Current Active Medications: Generic Name Dose Route Start Last Admin Trade Name Freq PRN Reason Stop Dose Admin Acetaminophen 650 mg 02/15/25 12:11 Acetaminophen 325 Mg Tablet PO 03/16/25 01:09 Q6H PRN FEVER >100.4 Hydrocodone Bitart/Acetaminophen 1 tab 02/14/25 07:14 02/15/25 11:22 Hydrocodone/Apap 5/325 Tablet PO 02/19/25 07:13 1 tab Q4HR PRN Administration Pain 4-6 Amlodipine Besylate 10 mg 02/14/25 09:00 02/16/25 08:51 Amlodipine Besylate 5 Mg Tablet PO 03/16/25 08:59 10 mg QDAY CLEMENTINE Administration Carvedilol 25 mg 02/14/25 09:00 02/16/25 08:51 Carvedilol 12.5 Mg Tablet PO 03/16/25 08:59 25 mg BID CLEMENTINE Administration Dextrose 25 ml 02/14/25 01:26 Dextrose 50%-Water Inj 50 Ml Syringe IV 03/16/25 01:25 Q15MIN PRN BG 50-70 responsive npo pt Dextrose 50 ml 02/14/25 01:26 Dextrose 50%-Water Inj 50 Ml Syringe IV 03/16/25 01:25 Q15MIN PRN BG <50 OR BG <70 & pt unresponsive Famotidine 20 mg 02/14/25 09:00 02/16/25 08:52 Famotidine 20 Mg Tablet PO 03/16/25 08:59 20 mg BID CLEMENTINE Administration Glucagon 1 mg 02/14/25 01:26 Glucagon Inj 1 Mg Vial IM Q15MIN PRN BG <70, and no IV access Heparin Sodium (Porcine) 5,000 unit 02/14/25 10:00 02/16/25 08:47 Heparin Sod Inj 5000 Unit/Ml Vial SC 02/28/25 09:59 Not Given Q12HR CLEMENTINE Hydromorphone HCl 0.5 mg 02/14/25 07:14 02/16/25 12:59 Hydromorphone Inj 2 Mg/Ml Vial IVP 02/19/25 01:14 0.5 mg Q4H PRN Administration Pain 7-10 Cefepime HCl 2 gm/ Sodium 50 mls @ 100 mls/hr 02/15/25 21:00 02/16/25 08:50 Chloride IV 02/21/25 08:59 100 mls/hr Q12HR CLEMENTINE Administration Insulin Degludec 18 unit 02/16/25 21:00 Insulin Degludec 5 Unit/0.05 Ml (Per 5 Units) SC 03/18/25 20:59 HS [facility] Insulin Human Lispro 0 unit 02/16/25 11:30 02/16/25 11:17 Insulin Lispro (Admelog) 1 Unit/0.01 Ml Unit SC 03/18/25 11:29 Not Given AC [facility] Protocol Labetalol HCl 10 mg 02/14/25 16:23 Labetalol Inj 5 Mg/Ml Vial 20 Ml IVP Q10MIN PRN hypertension Ondansetron HCl 4 mg 02/14/25 01:10 02/14/25 09:02 Ondansetron Inj 2 Mg/Ml Inj 2 Ml IVP 03/16/25 01:09 4 mg Q6H PRN Administration NAUSEA OR VOMITING Protocol Sennosides 1 tab 02/14/25 01:10 02/15/25 01:49 Senna Tablet PO 03/16/25 01:09 1 tab QDAY PRN Administration constipation Protocol Plan Patient is a 44 year old female with past medical history HTN, ID-T2DM, GERD, hx valley fever treated non-malignant bladder mass, bilateral hydronephrosis s/p bilateral nephrostomy, acute renal failure on HD Tues/Sat w/ Dr. Pineda (started 01/06/2025) presented to the ED after having L flank pain with fever. Patient was admitted for workup and management of UTI. #UTI, complicated Presented with fever, n/v, left flank pain, erythema of left nephrostomy tube, likely infection of left tube. Meets 3/4 SIRS criteria on admission: Temp 101.5, tachypnea, and WBC 15.6 but no evidence of end organ damage. Creatinine elevated but at baseline. CRP 21.3. UA showed evidence of UTI, WBC 14, RBC <1 CT A/P showed nephrostomy tubes in satisfactory position, no hydronephrosis. S/p fluids, cefepime, vancomycin, fluconazole x 1 in ED. Urine culture 02/13 grew Enterobacter cloacae, GNR, and pseudo fluorescens/putida; sensitive to cefepime. Blood cultures negative for 48 hours. Plan: - Follow up final urine culture and sensitivities - Cefepime 2 gm IV (02/14- - CTM left nephrostomy tube drainage - Consider replacement if infection worsens #Urothelial papilloma with chronic cystitis #Acute renal failure #Hemodialysis Sunday/Sunday (12/15/24) #S/p bilateral nephrostomy tubes (12/19/24) #S/p tunneled dialysis catheter removal (02/16/2025) On previuos admission, was found to have posterior bladder mass diagnosed as urothelial papilloma with chronic cystitis. This obstruction resulted in bilateral hydronephrosis and acute renal failure to the point that patient required hemodialysis. Nephrostomy tubes were eventually placed by urologist Dr. Friedman on 12/19/24. However right tube became obstructed and was removed but unable to be replaced. Was discharged from [facility] with left nephrostomy tube and scheduled for close outpatient follow-up with Dr. Forbes. Patient reports that after discharge she went to [facility] where right nephrostomy tube was reinserted, continues to drain well. Was unable to have mass removed at [facility] due to lack of urology service. Follows floor molder Dr. Pineda, on Sunday/Sunday hemodialysis schedule. Last HD session 02/07. Baseline creatinine 1.8-3.4. Creatinine 2.0 on admission. Plan: - Consulted floor molder Dr. Pineda, appreciate recommendations: Removal of tunneled catheter today, no need of dialysis anymore - Will need higher level care for urology to remove bladder mass, pending insurance authorization to see urologist - Pain regimen with Tylenol and [place] prn #Insulin Dependent T2DM Home meds stated insulin 30 units long acting, 5 units with meals Upon chart review, 18 units long acting Degludec Glucose 224 on admission Plan: - Degludec 18 units nightly - SSI - Accu-checks - CTM glucose #HTN Home meds include carvedilol 25 mg po bid, hydralazine 50 mg 1 tab/day, amlodipine 10 mg daily. Plan: - Continue home dose carvedilol and amlodipine - Hold hydralazine for now - IV labetolol prn - CTM BP #Anemia, normocytic Likely due to EMILY. Iron panel 12/11/24 showed low iron and saturation, TIBC and iron saturated iron-binding within normal limits. Patient takes home iron supplements. No signs or symptoms of bleeding at this time. Plan: - Hold home iron in setting of infection - CTM hemoglobin - Transfuse if Hgb <7 #Pulmonary masses, stable #Hx Valley Fever Visualized on repeat imaging since 03/21/2024. Right midlung mass 25-30mm and right lower lobe mass 18-22mm mass. CT A/P 02/13: Again noted pulmonary masses in the right middle lobe and right lower lobe noted on the 01/28/2025 exam Plan: - Fairly stable, will CTM Health Maintenance Disposition: med tele DVT prophylaxis: heparin GI prophylaxis: famotidine Diet: carb consistent CODE STATUS: FULL Patient plan of care was discussed with the resident, Dr. Walker, and attending physician, Dr. Jones. Mounika Orosco, PGY-1 Attending Provider Attestation/Addendum I have examined the patient, reviewed labs and imaging findings, discussed the case with the resident(s), and reviewed entered orders. I agree with the plan of care as outlined in this note, with these additional summaries/recommendations: Patient seen at bedside. No acute overnight events. Patient admitted for complicated urinary tract infection in the setting of nephrostomy tubes and bladder mass. Urinalysis indicative of UTI. Urine and blood cultures taken. Continue broad-spectrum antibiotics. Blood cxs preliminary show no growth at 48 hours. Ur cx grew enterobacter cloacae and pseudo fluorescens/putida and speciation of third GNR organisms still pending at this time. We will await final speciation of culture results before patient can be safely discharged. Bilateral nephrostomy tubes appear to be draining well and we will monitor output closely. Patient has a history of benign bladder mass and is pending outpatient urologic surgical intervention. Patient has been receiving dialysis although renal function currently stable with no significant electrolyte abnormalities and no plans for future dialysis for now. Renally dose medications and avoid nephrotoxic agents. Case discussed with nephrology and we will remove tunneled dialysis catheter today. Patient was counseled extensively on the importance of following up outpatient with urology. Continue home antihypertensives as needed. Continue basal bolus insulin for diabetes mellitus type 2 with Accu-Cheks. Target blood sugar of 140-180 while hospitalized. Patient has anemia of chronic disease and no evidence of bleeding at this time. Continue daily hematology and chemistry panel. Patient and patient's updated on the plan and in agreement. All questions answered to satisfaction. Please see residents note for additional details and management. Dr. Robert MD
[2025-02-16] MEDS: HYDROcodone/APAP 5/325 TABLET 1 TAB PO (16:54)
[2025-02-16] MEDS: HEPARIN SOD INJ 5000 UNIT/ML VIAL SC (21:20)
[2025-02-17] VITALS (10 sets, daily range): BP systolic 123–142; BP diastolic 65–81; PULSE 54–66; RESP 16–18; TEMP 35.9–36.7; O2SAT 92–99; BMI 29.4
[2025-02-17] MEDS: HYDROmorphone INJ 2 MG/ML VIAL 0.5 MG IVP ×6 (03:24→23:58)
[2025-02-17 05:23] LABS: Basophils # (Auto) 0.1 Thou/mm3 (0.0-0.2); Basophils % (Auto) 1 % (0-2.5); Eosinophils # (Auto) 0.3 Thou/mm3 (0.0-0.5); Eosinophils % (Auto) 4 % (0-10); Hematocrit 29.8 % (36.0-46.0); Hemoglobin 9.1 g/dL (12.0-16.0); Immature Granulocytes Auto 0.03 Thou/mm3 (0.00-0.00); Lymphocytes # (Auto) 2.7 Thou/mm3 (1.0-4.8); Lymphocytes % (Auto) 32 % (10-50); Mean Corpuscular HGB Conc 30.5 g/dl (31.0-37.0); Mean Corpuscular Hemoglobin 25.3 pg (25.0-35.0); Mean Corpuscular Volume 83 fL (80-100); Monocytes # (Auto) 0.6 Thou/mm3 (0.0-0.8); Monocytes % (Auto) 7 % (0-12); Neutrophils # (Auto) 4.8 Thou/mm3 (1.8-7.7); Neutrophils % (Auto) 57 % (37-80); Nucleated Red Blood Cell # 0.00 Thou/mm3 (0.00-0.00); Nucleated Red Blood Cell % 0 /100 WBC (0); Platelet Count 379 Thou/mm3 (140-440); RDW Standard Deviation 51.0 fL (36.4-46.3); Red Blood Count 3.59 Miln/mm3 (4.00-5.20); White Blood Count 8.5 Thou/mm3 (3.6-11.0)
[2025-02-17 05:45] LABS: Albumin, Serum 3.8 gm/dL (3.5-5.0); Anion Gap 9 (7-16); BUN/Creatinine Ratio 8 Ratio (12-20); Blood Urea Nitrogen 13 mg/dL (9-23); Calcium 9.4 mg/dL (8.3-10.6); Calcium (Corrected) 9.6 mg/dL (8.5-10.1); Carbon Dioxide 23.8 mMol/L (20.0-31.0); Chloride 105 mMol/L (98-107); Creatinine (Component) 1.6 mg/dL (0.6-1.3); Estimated Creatinine Clearance 46.3 mL/min (>60); Glucose 137 mg/dL (74-106); Osmolality,Calculated 277 (275-295); Phosphorous 4.0 mg/dL (2.4-5.1); Potassium 5.0 mMol/L (3.4-5.1); Sodium 138 mMol/L (136-145); eGFR 41 See Note
--- NOTE | 2025-02-17 09:32 | ESPR_ITS ---
Documentation for date of: 02/17/25 Subjective Subjective Interval history: 44 y/o F with PMH of HTN, Insulin dependent-T2DM, GERD, hx valley fever treated 1.5 months ago, non-malignant bladder mass, bilateral hydronephrosis s/p bilateral nephrostomy, acute renal failure on HD Tu/Sun w/ Dr. Pineda (started 01/06/2025) presented to the hospital on 02/13/2025 due to 2 days of constant dull pain around her left nephrostomy insertion site along with fever. At [facility], she underwent CT scan to evaluate for possible malposition or dysfunction of the nephrostomy tube, which comfirmed appropriate placement and drainage. The nephrostomy was originally placed in November 2024 at [facility] for significant hydronephrosis secondary to obstruction from a bladder mass. After discharge, she was initially followed by an oncologist in [place], but surgical resection was not feasible, and she was referred to another oncologist. Due to insurance barriers, however, she has been unable to establish further oncologic care for over one month. She also reported missing her scheduled hemodialysis session on sunday this week, but was able to attend treatment on . Patient complains of vomiting and nausea. Denies chest pain, palpation, SOB, abdominal pain. Patient has been admitted for management of UTI, SAPPHIRE and hemodialysis. Nephrology has been consulted for management of SAPPHIRE and hemodialysis. ED course: -Initial vitals were 97.8 F, HR 68, RR 17, BP 139/69, 100% O2 RA -Labs significant for WBC 15.6, Hgb 10.3, Na 132, Cr 2.0, glucose 224, mag 1.5, alk phos 144, CRP 21.3, BNP 108 UA: pH 7.5, 3+ protein, glucose 1+, blood 3+, rbc 1210, wbc 102, bacteria 2+, urine yeast present Blood x2 and urine cultures taken -Imaging included CXR: Pulmonary nodular densities in the lower lung zone on the right CTAP: Nephrostomy tubes are in satisfactory position, no hydronephrosis -In the ED, patient was given 250 ml NS IV x1, tylenol, zofran, cefepime 50 mls x1, ketorolac 30 mg IV x1, dilaudid 1 mg x1, vancomycin 1,000 mg x1, Fluconazole 400 mg x1, mag sulfate 2 gm x1. -Patient was admitted for workup and management of UTI. Past Medical History: above Surgical History: x1 Social History: Patient lives in [place] with , denies any tobacco, alcohol or illicit drug use. Current Medications: hydralazine 50 mg, carvedilol 25 mg, amlodipine, cefuroxime, norco, iron supplements, famotidine 20 mg, parker-mj, senna Allergies: No known drug allergies 02/14/2025: Labs reviewed and patient examined at the bedside. 02/15/2025: Labs reviewed and patient examined at the bedside. BUN:15 Cr:1.9, eGFR:33, Urine Output:1.4 L yesterday. Currently no other complains. Will continue on antibiotics for UTI. Showing good urine output and renal function showed slight improvement. No need for hemodialysis. After discharge patient must get oncologic and surgical treatment for her bladder mass as soon as possible to prevent further complications. 02/16/2025: Labs reviewed and patient examined at the bedside. Patient endorses Nausea and vomiting. Urine is clear and yellow. Nephrostomy tube draining well. Cr improved to 1.6. Kidney function is improving. Will take dialysis cathether out. 02/17/2025: Labs reviewed and patient examined at the bedside. BUN:13, Cr:1.6, eGFR:41. Renal gonzáles, patient is stable. Okay to discharge. Exam Vital Signs Temp Pulse Resp BP Pulse Ox O2 Del Method 96.6 F L 62 17 142/72 H 99 Room Air 02/17/25 07:15 02/17/25 07:15 02/17/25 07:15 02/17/25 07:15 02/17/25 07:15 02/17/25 07:15 Narrative Exam General: well nourished, AAO x3 Eye: normal conjunctiva, no scleral icterus HENT: Normocephalic, atraumatic, hearing intact to conversation at normal volume, moist oral mucosa Neck: Supple, non-tender, no JVD, no lymphadenopathy Lungs: Non-labored respirations, symmetric chest rise, Clear to auscultate bilaterally, No wheezing, rhonchi, crackles Heart: Peripheral pulses intact bilaterally, Regular Rate and Rhythm. Abdomen: Soft, non-tender, non-distended, no palpable masses, Bilateral nephrostomy insertion site at lower back. Musculoskeletal: Normal range of motion and strength, No cyanosis or edema, No visible joint swelling Skin: Skin is warm, dry, no rashes or lesions. IJ PermCath Psychiatric: Cooperative, appropriate mood and affect, Awake and alert, agitated Neuro: Cranial nerves II-XII grossly intact. Strength 5/5 throughout. Sensations intact to light touch. Objective Labs 02/18/25 04:31 02/18/25 04:31 Labs: Laboratory Results - last 24 hr 02/17/25 04:54 WBC 8.5 RBC 3.59 L Hgb 9.1 L Hct 29.8 L MCV 83 MCH 25.3 MCHC 30.5 L RDW Std Deviation 51.0 H Plt Count 379 D Neut % (Auto) 57 Lymph % (Auto) 32 Granite % (Auto) 7 Eos % (Auto) 4 Baso % (Auto) 1 Neut # (Auto) 4.8 Lymph # (Auto) 2.7 Granite # (Auto) 0.6 Eos # (Auto) 0.3 Baso # (Auto) 0.1 Immature Gran # (Auto) 0.03 H Absolute Nucleated RBC 0.00 Immature Gran % 0 Nucleated RBC % 0 Sodium 138 Potassium 5.0 Chloride 105 Carbon Dioxide 23.8 Anion Gap 9 BUN 13 Creatinine 1.6 H Estim Creat Clear Calc 46.3 L eGFR 41 L BUN/Creatinine Ratio 8 L Glucose 137 H Calculated Osmolality 277 Calcium 9.4 Corrected Calcium 9.6 Phosphorus 4.0 Albumin 3.8 Quality Measures Quality Measures VTE prophylaxis Assessment & Plan Assessment Current Active Medications: Generic Name Dose Route Start Last Admin Trade Name Micheletq PRN Reason Stop Dose Admin Acetaminophen 650 mg 02/15/25 12:11 Acetaminophen 325 Mg Tablet PO 03/16/25 01:09 Q6H PRN FEVER >100.4 Hydrocodone Bitart/Acetaminophen 1 tab 02/14/25 07:14 02/16/25 16:54 Hydrocodone/Apap 5/325 Tablet PO 02/19/25 07:13 1 tab Q4HR PRN Administration Pain 4-6 Amlodipine Besylate 10 mg 02/14/25 09:00 02/16/25 08:51 Amlodipine Besylate 5 Mg Tablet PO 03/16/25 08:59 10 mg QDAY CLEMENTINE Administration Carvedilol 25 mg 02/14/25 09:00 02/16/25 21:17 Carvedilol 12.5 Mg Tablet PO 03/16/25 08:59 25 mg BID CLEMENTINE Administration Dextrose 25 ml 02/14/25 01:26 Dextrose 50%-Water Inj 50 Ml Syringe IV 03/16/25 01:25 Q15MIN PRN BG 50-70 responsive npo pt Dextrose 50 ml 02/14/25 01:26 Dextrose 50%-Water Inj 50 Ml Syringe IV 03/16/25 01:25 Q15MIN PRN BG <50 OR BG <70 & pt unresponsive Famotidine 20 mg 02/14/25 09:00 02/16/25 21:16 Famotidine 20 Mg Tablet PO 03/16/25 08:59 20 mg BID CLEMENTINE Administration Glucagon 1 mg 02/14/25 01:26 Glucagon Inj 1 Mg Vial IM Q15MIN PRN BG <70, and no IV access Heparin Sodium (Porcine) 5,000 unit 02/14/25 10:00 02/16/25 21:20 Heparin Sod Inj 5000 Unit/Ml Vial SC 02/28/25 09:59 5,000 unit Q12HR CLEMENTINE Administration Hydromorphone HCl 0.5 mg 02/14/25 07:14 02/17/25 08:00 Hydromorphone Inj 2 Mg/Ml Vial IVP 02/19/25 01:14 0.5 mg Q4H PRN Administration Pain 7-10 Cefepime HCl 2 gm/ Sodium 50 mls @ 100 mls/hr 02/15/25 21:00 02/16/25 21:14 Chloride IV 02/21/25 08:59 100 mls/hr Q12HR CLEMENTINE Administration Insulin Degludec 18 unit 02/16/25 21:00 02/16/25 21:18 Insulin Degludec 5 Unit/0.05 Ml (Per 5 Units) SC 03/18/25 20:59 18 unit HS CLEMENTINE Administration Insulin Human Lispro 0 unit 02/16/25 11:30 02/17/25 07:35 Insulin Lispro (Admelog) 1 Unit/0.01 Ml Unit SC 03/18/25 11:29 Not Given AC [facility] Protocol Labetalol HCl 10 mg 02/14/25 16:23 Labetalol Inj 5 Mg/Ml Vial 20 Ml IVP Q10MIN PRN hypertension Ondansetron HCl 4 mg 02/14/25 01:10 02/14/25 09:02 Ondansetron Inj 2 Mg/Ml Inj 2 Ml IVP 03/16/25 01:09 4 mg Q6H PRN Administration NAUSEA OR VOMITING Protocol Sennosides 1 tab 02/14/25 01:10 02/17/25 03:32 Senna Tablet PO 03/16/25 01:09 1 tab QDAY PRN Administration constipation Protocol Plan 44 y/o F with PMH of HTN, Insulin dependent-T2DM, GERD, hx valley fever treated 1.5 months ago, non-malignant bladder mass, bilateral hydronephrosis s/p bilateral nephrostomy, acute renal failure on HD /Sun w/ Dr. Pineda (started 01/06/2025) presented to the hospital on 02/13/2025 due to 2 days of constant dull pain around her left nephrostomy insertion site along with fever. Patient has been admitted for managment of UTI, SAPPHIRE and hemodialysis. Nephrology has been consulted for management of SAPPHIRE and hemodialysis. #SAPPHIRE, post renal 2/2 Urinary retention 2/2 Bladder mass. #on Hemodialysis (Sunday, Sunday) -On admission: BUN: 15, Cr:2.0, eGFR:31. -On admission UA (02/13): Davie Turbid urine, Urine protein:3+, Urine Glucose:1+, Urine Blood: 3+, Urine Nitrite positive, Urine leukocyte esterase positive, Urine RBC 1210, Urine WBC:102, Urine Bacteria 2+ -Repeat UA after 3 hours(02/14): Clear Yellow Urine, Urine protein:1+, Urine Glucose: negative, Urine blood: Trace, Urine Nitrite:Positive, Urine Leukocyte esterase: positive, Urine RBC:<1, Urine WBC:14, Urine Bacteria:Rare -CXR (02/13/2025): Nodular opacities in the right lower lung zone, Right internal jugular dialysis catheter satisfactory position, Normal heart size, Mild mild vascular congestion, The osseous structures are intact. -CTAP(02/13/2025): Nephrostomy tubes are in satisfactory position, no hydronephrosis -Patient had Acute Renal Failure in November 2024 due to urinary retention caused by bladder mass. Patient elevated Cr levels and decreased GFR likely contributory to the stress exerted by untreated bladder mass and nephrostomy tube to her kidneys. Unless her bladder mass is treated, nephrostomy tube cannot be removed and her kidney function is unlikely to improve-needing dialysis. -Currently, BUN:13, Cr:1.6, eGFR:41 Plan: -Patient received hemodialysis on Sunday. Currently, patient does not need hemodialysis-excellent urine output -Avoid nephrotoxins -Renally dose medication #UTI -Patient's presention was left sided pain near nephrostomy tube insertion site with fever. -Likely infection due to the nephrostomy tube. -Elevated WBC and UA showing presence of UTI. -Received Vancomycin and Ceftriaxone Plan:. -Will continue to monitor. #Insulin Dependent T2DM #HTN #Anemia, normocytic -Management per Primary Hospitalist team Thank you for allowing us to participate in the care of your patient. Patient is stable in nephrology standpoint. No further recommendations. Assessment and plan discussed with my attending physician Dr. Miriam Silva (PGY-1)- Internal medicine resident Attending Provider Attestation/Addendum patient currently seen and examined with resident physician Dr. Silva. Note reviewed, agree with findings and recommendations. Patient currently seen in medical floor. at bedside. Complaining of severe pain from the nephrostomy tube sites. Good urine output from nephrostomy tubes. Creatinine stable. Electrolytes stable. Patient has renal recovery- dialysis, dialysis catheter was discontinued. In the interim patient being treated for complicated UTI due to nephrostomy tubes. Spoke to primary team. Might need IV antibiotics. Dr Shaver on the case.
[2025-02-17] MEDS: FAMOTIDINE 20 MG TABLET PO ×2 (09:38→20:30)
[2025-02-17] MEDS: CEFEPIME INJ 2 GM in SODIUM CHLORIDE 0.9% (Popper) 50 ML IV ×2 (09:39→20:27)
[2025-02-17] MEDS: HEPARIN SOD INJ 5000 UNIT/ML VIAL SC ×2 (11:00→20:31)
--- NOTE | 2025-02-17 14:10 | PD.RESDS ---
Planned Discharge Date 02/17/25 DS: Providers Provider Date of admission: 02/14/25 01:10 Primary care physician: Stan Cedillo MD Admitting Provider: Renetta Amezcua MD Attending Provider on Admission: Pedro Luis Reynoso DO Consults: 02/14/25 01:32 Consult to Nephrology Routine Comment: HD T,S Consulting Provider: Christina Pineda Attending Provider on DC: Mounika Orosco DO Discharging Provider: Mounika Orosco DO Hospital Course Hospital Course Hospital course: 44 y/o F with PMH of HTN, Insulin dependent-T2DM, GERD, hx valley fever treated 1.5 months ago, non-malignant bladder mass, bilateral hydronephrosis s/p bilateral nephrostomy, acute renal failure on HD Tu/Alfa w/ Dr. Pineda (started 01/06/2025) presented to the hospital on 02/13/2025 due to 2 days of constant dull pain around her left nephrostomy insertion site along with fever. At [facility], she underwent CT scan to evaluate for possible malposition or dysfunction of the nephrostomy tube, which comfirmed appropriate placement and drainage. The nephrostomy was originally placed in November 2024 at [facility] for significant hydronephrosis secondary to obstruction from a bladder mass. After discharge, she was initially followed by an oncologist in [place], but surgical resection was not feasible, and she was referred to another oncologist. Due to insurance barriers, however, she has been unable to establish further oncologic care for over one month. She also reported missing her scheduled hemodialysis session on sunday this week, but was able to attend treatment on . Patient complains of vomiting and nausea. Denies chest pain, palpation, SOB, abdominal pain. Patient has been admitted for management of UTI, SAPPHIRE and hemodialysis. Nephrology has been consulted for management of SAPPHIRE and hemodialysis. ED course: -Initial vitals were 97.8 F, HR 68, RR 17, BP 139/69, 100% O2 RA -Labs significant for WBC 15.6, Hgb 10.3, Na 132, Cr 2.0, glucose 224, mag 1.5, alk phos 144, CRP 21.3, BNP 108 UA: pH 7.5, 3+ protein, glucose 1+, blood 3+, rbc 1210, wbc 102, bacteria 2+, urine yeast present Blood x2 and urine cultures taken -Imaging included CXR: Pulmonary nodular densities in the lower lung zone on the right CTAP: Nephrostomy tubes are in satisfactory position, no hydronephrosis -In the ED, patient was given 250 ml NS IV x1, tylenol, zofran, cefepime 50 mls x1, ketorolac 30 mg IV x1, dilaudid 1 mg x1, vancomycin 1,000 mg x1, Fluconazole 400 mg x1, mag sulfate 2 gm x1. -Patient was admitted for workup and management of UTI. Past Medical History: above Surgical History: x1 Social History: Patient lives in [place] with , denies any tobacco, alcohol or illicit drug use. Current Medications: hydralazine 50 mg, carvedilol 25 mg, amlodipine, cefuroxime, norco, iron supplements, famotidine 20 mg, parker-mj, senna Allergies: No known drug allergies 02/14/2025: Labs reviewed and patient examined at the bedside. 02/15/2025: Labs reviewed and patient examined at the bedside. BUN:15 Cr:1.9, eGFR:33, Urine Output:1.4 L yesterday. Currently no other complains. Will continue on antibiotics for UTI. Showing good urine output and renal function showed slight improvement. No need for hemodialysis. After discharge patient must get oncologic and surgical treatment for her bladder mass as soon as possible to prevent further complications. 02/16/2025: Labs reviewed and patient examined at the bedside. Patient endorses Nausea and vomiting. Urine is clear and yellow. Nephrostomy tube draining well. Cr improved to 1.6. Kidney function is improving. Will take dialysis cathether out. 02/17/2025: Labs reviewed and patient examined at the bedside. BUN:13, Cr:1.6, eGFR:41. Renal gonzáles, patient is stable. Okay to discharge. Time Spent with Patient Time attestation: Total time spent providing and/or coordinating discharge services: Exam Vital Signs Temp Pulse Resp BP Pulse Ox O2 Del Method 98.1 F 61 16 130/75 96 Room Air 02/17/25 11:55 02/17/25 12:00 02/17/25 11:55 02/17/25 11:55 02/17/25 11:55 02/17/25 11:55 Discharge Plan Prescriptions/Referrals Prescriptions/Med Rec: No Action omeprazole 40 mg capsule,delayed release(DR/EC) 40 mg PO QDAY (DME) pen needle, diabetic [TRUEplus Pen Needle] 31 gauge x 1/4 needle buspirone 10 mg tablet 10 mg PO HS Patient Comments: TAKE 1 TABLET BY MOUTH ONCE DAILY AT BEDTIME (DME) Accu-Chek Guide test strips Strip Patient Comments: USE 1 STRIP TO CHECK GLUCOSE THREE TIMES DAILY (DME) lancets [Accu-Chek Softclix Lancets] Misc Patient Comments: USE 1 TO CHECK GLUCOSE THREE TIMES DAILY insulin lispro 100 unit/mL insulin pen 5 unit SUBCUT TID Patient Comments: INJECT 5 UNITS SUBCUTANEOUSLY THREE TIMES DAILY BEFORE MEALS insulin glargine [Lantus Solostar U-100 Insulin] 100 unit/mL (3 mL) insulin pen 18 unit subcut QPM Qty: 15 0RF insulin lispro [Admelog SoloStar U-100 Insulin] 100 unit/mL insulin pen See Protocol subcut USEASDIRECTD Qty: 15 0RF Protocol: Insulin Corrective High-Dose Regimen Condition: Fingerstick Blood Glucose Dose/Route: Insulin Units Condition: 141-180 mg/dl Dose/Route: 6 units/SQ Condition: 181-220 mg/dl Dose/Route: 8 units/SQ Condition: 221-260 mg/dl Dose/Route: 10 units/SQ Condition: 261-300 mg/dl Dose/Route: 12 units/SQ Condition: 301-350 mg/dl Dose/Route: 14 units/SQ Condition: 351-400 mg/dl Dose/Route: 16 units/SQ Condition: greater than 400 mg/dl Dose/Route: 18 units/SQ (DME) pen needle, diabetic [CareFine Pen Needle] 31 gauge x 1/4 needle See Rx Instructions .Route Qty: 100 0RF Rx Instructions: As directed morphine 15 mg tablet 15 mg PO Q6H MDD 4 PRN (Reason: pain) Qty: 20 0RF ferrous sulfate [FeroSul] 325 mg (65 mg iron) tablet 325 mg PO 1XD amlodipine 10 mg tablet 10 mg PO 1XD cefuroxime axetil 500 mg tablet 500 mg PO 1XD carvedilol 25 mg tablet 25 mg PO 1XD Patient Comments: TAKE 1 TABLET BY MOUTH TWICE DAILY WITH MEALS FOR 30 DAYS hydralazine 50 mg tablet 50 mg PO 1XD Patient Comments: TAKE 1 TABLET BY MOUTH THREE TIMES DAILY famotidine 20 mg tablet 20 mg PO 1XD Patient Comments: TAKE 1 TABLET BY MOUTH ONCE DAILY FOR 30 DAYS polyethylene glycol 3350 [Miralax] 17 gram/dose powder 4 g PO QDAY Qty: 119 0RF sennosides [senna] 8.6 mg tablet 8.6 mg PO QDAY PRN (Reason: constipation) Qty: 30 0RF ondansetron 4 mg tablet,disintegrating 4 mg PO Q8H PRN (Reason: nausea and vomiting) Qty: 14 0RF hydrocodone-acetaminophen 10-325 mg tablet 1 tab PO Q6H MDD 4 PRN (Reason: pain) Qty: 20 0RF Referrals: Stan Cedillo MD [Primary Care Provider, Family Practice] Patient/Caregiver Discharge Instructions Print Language: Polish
--- NOTE | 2025-02-17 15:20 | ESPR_ITS ---
<Statement entered by Hi Walker MD - 02/18/25 07:34> No acute overnight events. Patient denies any other complaints. Final urine cultures came back positive for Enterobacter cloacae, stenotrophomonas maltophilia, pseudo fluorescends/putida. All 3 of them are sensitive to cefepime, will continue it for total duration of 7 days. Infectious disease specialist, Dr Shaver was consulted in view of multidrug-resistant UTI. Will appreciate his recommendations. If Dr Shaver recommends oral antibiotics, plan to discharge patient on oral antibiotics within next 24 hours. Patient was again explained to follow-up with the bladder mass removal as soon as possible after getting discharged from the hospital. I have personally seen and examined the patient, agree with residents assessment and plan Patient plan of care was discussed with the attending physician, Dr. Angeles Walker, PGY2 Documentation for date of: 02/17/25 Subjective Subjective Interval history: No acute events overnight. No new complaints this morning. Tunnel catheter removed yesterday. Tubes draining well, adequate light yellow urine drained in both bags. Final urine culture grew Enterobacter cloacae, Stenotrophomonas maltophilia, Pseudo fluorescends/putida, third organism was only sensitive to IV antibiotics. Will continue IV cefepime for an additional 3 more days, started on 02/14. Will consult ID for possible oral antibiotic recommendations. Patient pending insurance approval/authorization to see urologist for bladder mass removal. Exam Vital Signs Temp Pulse Resp BP Pulse Ox O2 Del Method 98.1 F 61 16 130/75 96 Room Air 02/17/25 11:55 02/17/25 12:00 02/17/25 11:55 02/17/25 11:55 02/17/25 11:55 02/17/25 11:55 Narrative Exam Physical Exam General: Awake and in mild distress due to pain. Conversational and non-toxic appearing. HEENT: Normocephalic, atraumatic, mucous membranes moist. Heart: Regular rate and rhythm, normal S1 and S2, no murmurs. Lungs: Clear to auscultation with no wheezing or crackles. Abdomen: Soft, nondistended, nontender, positive bowel sounds. No guarding or rebound tenderness. : Bilateral nephrostomy tubes in back, draining well. Light yellow urine in both bags. No purulent drainage or erythema around insertion sites. Neurologic: Alert and oriented x3, no gross neurological deficit, and patient able to move all 4 extremities. Extremities: No edema. Skin: No rash or ecchymoses. Objective Labs 02/18/25 04:31 02/18/25 04:31 Labs: Laboratory Results - last 24 hr 02/17/25 04:54 WBC 8.5 RBC 3.59 L Hgb 9.1 L Hct 29.8 L MCV 83 MCH 25.3 MCHC 30.5 L RDW Std Deviation 51.0 H Plt Count 379 D Neut % (Auto) 57 Lymph % (Auto) 32 [place] % (Auto) 7 Eos % (Auto) 4 Baso % (Auto) 1 Neut # (Auto) 4.8 Lymph # (Auto) 2.7 [place] # (Auto) 0.6 Eos # (Auto) 0.3 Baso # (Auto) 0.1 Immature Gran # (Auto) 0.03 H Absolute Nucleated RBC 0.00 Immature Gran % 0 Nucleated RBC % 0 Sodium 138 Potassium 5.0 Chloride 105 Carbon Dioxide 23.8 Anion Gap 9 BUN 13 Creatinine 1.6 H Estim Creat Clear Calc 46.3 L eGFR 41 L BUN/Creatinine Ratio 8 L Glucose 137 H Calculated Osmolality 277 Calcium 9.4 Corrected Calcium 9.6 Phosphorus 4.0 Albumin 3.8 Quality Measures Quality Measures VTE prophylaxis Assessment & Plan Assessment Current Active Medications: Generic Name Dose Route Start Last Admin Trade Name Freq PRN Reason Stop Dose Admin Acetaminophen 650 mg 02/15/25 12:11 Acetaminophen 325 Mg Tablet PO 03/16/25 01:09 Q6H PRN FEVER >100.4 Hydrocodone Bitart/Acetaminophen 1 tab 02/14/25 07:14 02/16/25 16:54 Hydrocodone/Apap 5/325 Tablet PO 02/19/25 07:13 1 tab Q4HR PRN Administration Pain 4-6 Amlodipine Besylate 10 mg 02/14/25 09:00 02/17/25 09:35 Amlodipine Besylate 5 Mg Tablet PO 03/16/25 08:59 10 mg QDAY CLEMENTINE Administration Carvedilol 25 mg 02/14/25 09:00 02/17/25 09:37 Carvedilol 12.5 Mg Tablet PO 03/16/25 08:59 25 mg BID CLEMENTINE Administration Dextrose 25 ml 02/14/25 01:26 Dextrose 50%-Water Inj 50 Ml Syringe IV 03/16/25 01:25 Q15MIN PRN BG 50-70 responsive npo pt Dextrose 50 ml 02/14/25 01:26 Dextrose 50%-Water Inj 50 Ml Syringe IV 03/16/25 01:25 Q15MIN PRN BG <50 OR BG <70 & pt unresponsive Famotidine 20 mg 02/14/25 09:00 02/17/25 09:38 Famotidine 20 Mg Tablet PO 03/16/25 08:59 20 mg BID CLEMENTINE Administration Glucagon 1 mg 02/14/25 01:26 Glucagon Inj 1 Mg Vial IM Q15MIN PRN BG <70, and no IV access Heparin Sodium (Porcine) 5,000 unit 02/14/25 10:00 02/17/25 11:00 Heparin Sod Inj 5000 Unit/Ml Vial SC 02/28/25 09:59 5,000 unit Q12HR CLEMENTINE Administration Hydromorphone HCl 0.5 mg 02/14/25 07:14 02/17/25 12:05 Hydromorphone Inj 2 Mg/Ml Vial IVP 02/19/25 01:14 0.5 mg Q4H PRN Administration Pain 7-10 Cefepime HCl 2 gm/ Sodium 50 mls @ 100 mls/hr 02/15/25 21:00 02/17/25 09:39 Chloride IV 02/21/25 08:59 100 mls/hr Q12HR CLEMENTINE Administration Insulin Degludec 18 unit 02/16/25 21:00 02/16/25 21:18 Insulin Degludec 5 Unit/0.05 Ml (Per 5 Units) SC 03/18/25 20:59 18 unit HS CLEMENTINE Administration Insulin Human Lispro 0 unit 02/16/25 11:30 02/17/25 11:56 Insulin Lispro (Admelog) 1 Unit/0.01 Ml Unit SC 03/18/25 11:29 Not Given AC [facility] Protocol Labetalol HCl 10 mg 02/14/25 16:23 Labetalol Inj 5 Mg/Ml Vial 20 Ml IVP Q10MIN PRN hypertension Ondansetron HCl 4 mg 02/14/25 01:10 02/14/25 09:02 Ondansetron Inj 2 Mg/Ml Inj 2 Ml IVP 03/16/25 01:09 4 mg Q6H PRN Administration NAUSEA OR VOMITING Protocol Sennosides 1 tab 02/14/25 01:10 02/17/25 03:32 Senna Tablet PO 03/16/25 01:09 1 tab QDAY PRN Administration constipation Protocol Plan Patient is a 44 year old female with past medical history HTN, ID-T2DM, GERD, hx valley fever treated non-malignant bladder mass, bilateral hydronephrosis s/p bilateral nephrostomy, acute renal failure on HD Tu/Sun w/ Dr. Pineda (started 01/06/2025) presented to the ED after having L flank pain with fever. Patient was admitted for workup and management of UTI. #UTI, complicated Presented with fever, n/v, left flank pain, erythema of left nephrostomy tube, likely infection of left tube. Meets 3/4 SIRS criteria on admission: Temp 101.5, tachypnea, and WBC 15.6 but no evidence of end organ damage. Creatinine elevated but at baseline. CRP 21.3. UA showed evidence of UTI, WBC 14, RBC <1 CT A/P showed nephrostomy tubes in satisfactory position, no hydronephrosis. S/p fluids, cefepime, vancomycin, fluconazole x 1 in ED. Urine culture 02/13 grew Enterobacter cloacae, Stenotrophomonas maltophilia, and pseudo fluorescens/putida; sensitive to cefepime. Blood cultures negative for 48 hours. Plan: - Cefepime 2 gm IV (02/14-02/20) - CTM left nephrostomy tube drainage - Consulted ID Dr. Shaver, appreciate recommendations for oral antiobiotics - Consider replacement if infection worsens #Urothelial papilloma with chronic cystitis #Acute renal failure #Hemodialysis Sunday/Sunday (12/15/24) #S/p bilateral nephrostomy tubes (12/19/24) #S/p tunneled dialysis catheter removal (02/16/2025) On previuos admission, was found to have posterior bladder mass diagnosed as urothelial papilloma with chronic cystitis. This obstruction resulted in bilateral hydronephrosis and acute renal failure to the point that patient required hemodialysis. Nephrostomy tubes were eventually placed by urologist Dr. Friedman on 12/19/24. However right tube became obstructed and was removed but unable to be replaced. Was discharged from [facility] with left nephrostomy tube and scheduled for close outpatient follow-up with Dr. Forbes. Patient reports that after discharge she went to [facility] where right nephrostomy tube was reinserted, continues to drain well. Was unable to have mass removed at [facility] due to lack of urology service. Follows pillow filler Dr. Pineda, on Sunday/Sunday hemodialysis schedule. Last HD session 02/07. Baseline creatinine 1.8-3.4. Creatinine 2.0 on admission. S/p tunnel catheter removal 02/16. Plan: - Consulted pillow filler Dr. Pineda, appreciate recommendations: Removal of tunneled catheter, no more HD - Will need higher level care for urology to remove bladder mass, pending insurance authorization to see urologist - Pain regimen with Tylenol and Portal prn #Insulin Dependent T2DM Home meds stated insulin 30 units long acting, 5 units with meals Upon chart review, 18 units long acting Degludec Glucose 224 on admission Plan: - Degludec 18 units nightly - SSI - Accu-checks - CTM glucose #HTN Home meds include carvedilol 25 mg po bid, hydralazine 50 mg 1 tab/day, amlodipine 10 mg daily. Plan: - Continue home dose carvedilol and amlodipine - Hold hydralazine - IV labetolol prn - CTM BP #Anemia, normocytic Likely due to EMILY. Iron panel 12/11/24 showed low iron and saturation, TIBC and iron saturated iron-binding within normal limits. Patient takes home iron supplements. No signs or symptoms of bleeding at this time. Plan: - Hold home iron in setting of infection - CTM hemoglobin - Transfuse if Hgb <7 #Pulmonary masses, stable #Hx Valley Fever Visualized on repeat imaging since 03/21/2024. Right midlung mass 25-30mm and right lower lobe mass 18-22mm mass. CT A/P 02/13: Again noted pulmonary masses in the right middle lobe and right lower lobe noted on the 01/28/2025 exam Plan: - Fairly stable, will CTM Health Maintenance Disposition: med tele DVT prophylaxis: heparin GI prophylaxis: famotidine Diet: carb consistent CODE STATUS: FULL Patient plan of care was discussed with the resident, Dr. Walker, and attending physician, Dr. Reynoso. Mounika Orosco, PGY-1 Attending Provider Attestation/Addendum I have discussed and was present for the essential components of the history, physical examination, diagnosis, and treatment plan with the resident. I agree with the patient's care as documented by the resident and amended herein by me. Rafiq Reynoso DO. Although this document has been carefully reviewed, there may still be some phonetic and other typographical errors. These errors are purely grammatical due to imperfections in the software program and should not be construed in any way to compromise the substance of the patient's medical care during this visit.
[2025-02-17] MEDS: INSULIN LISPRO (AdmeLOG) 1 UNIT/0.01 ML UNIT SC (17:29)
[2025-02-17] MEDS: INSULIN DEGLUDEC 5 UNIT/0.05 ML (PER 5 UNITS) 18 UNIT SC (21:00)
[2025-02-18] VITALS (9 sets, daily range): BP systolic 125–156; BP diastolic 62–96; PULSE 58–78; RESP 13–18; TEMP 36.2–36.9; O2SAT 96–99
[2025-02-18] MEDS: HYDROmorphone INJ 2 MG/ML VIAL 0.5 MG IVP ×6 (03:56→23:39)
[2025-02-18 05:49] LABS: Basophils # (Auto) 0.1 Thou/mm3 (0.0-0.2); Basophils % (Auto) 1 % (0-2.5); Eosinophils # (Auto) 0.3 Thou/mm3 (0.0-0.5); Eosinophils % (Auto) 3 % (0-10); Hematocrit 30.1 % (36.0-46.0); Hemoglobin 9.7 g/dL (12.0-16.0); Immature Granulocytes Auto 0.07 Thou/mm3 (0.00-0.00); Lymphocytes # (Auto) 2.6 Thou/mm3 (1.0-4.8); Lymphocytes % (Auto) 29 % (10-50); Mean Corpuscular HGB Conc 32.2 g/dl (31.0-37.0); Mean Corpuscular Hemoglobin 26.4 pg (25.0-35.0); Mean Corpuscular Volume 82 fL (80-100); Monocytes # (Auto) 0.6 Thou/mm3 (0.0-0.8); Monocytes % (Auto) 7 % (0-12); Neutrophils # (Auto) 5.3 Thou/mm3 (1.8-7.7); Neutrophils % (Auto) 59 % (37-80); Nucleated Red Blood Cell # 0.00 Thou/mm3 (0.00-0.00); Nucleated Red Blood Cell % 0 /100 WBC (0); Platelet Count 450 Thou/mm3 (140-440); RDW Standard Deviation 49.5 fL (36.4-46.3); Red Blood Count 3.67 Miln/mm3 (4.00-5.20); White Blood Count 8.9 Thou/mm3 (3.6-11.0)
[2025-02-18 06:12] LABS: Albumin, Serum 4.0 gm/dL (3.5-5.0); Anion Gap 10 (7-16); BUN/Creatinine Ratio 8 Ratio (12-20); Blood Urea Nitrogen 13 mg/dL (9-23); Calcium 9.5 mg/dL (8.3-10.6); Calcium (Corrected) 9.5 mg/dL (8.5-10.1); Carbon Dioxide 23.2 mMol/L (20.0-31.0); Chloride 104 mMol/L (98-107); Creatinine (Component) 1.7 mg/dL (0.6-1.3); Estimated Creatinine Clearance 43.6 mL/min (>60); Glucose 149 mg/dL (74-106); Osmolality,Calculated 276 (275-295); Phosphorous 3.6 mg/dL (2.4-5.1); Potassium 4.4 mMol/L (3.4-5.1); Sodium 137 mMol/L (136-145); eGFR 38 See Note
[2025-02-18] MEDS: INSULIN LISPRO (AdmeLOG) 1 UNIT/0.01 ML UNIT SC ×3 (07:50→17:06)
[2025-02-18] MEDS: CEFEPIME INJ 2 GM in SODIUM CHLORIDE 0.9% (Popper) 50 ML IV (08:10)
[2025-02-18] MEDS: HEPARIN SOD INJ 5000 UNIT/ML VIAL SC ×2 (08:11→20:45)
[2025-02-18] MEDS: FAMOTIDINE 20 MG TABLET PO ×2 (08:12→20:44)
--- NOTE | 2025-02-18 09:16 | ESPR_ITS ---
Documentation for date of: 02/18/25 Subjective Subjective Interval history: 44 y/o F with PMH of HTN, Insulin dependent-T2DM, GERD, hx valley fever treated 1.5 months ago, non-malignant bladder mass, bilateral hydronephrosis s/p bilateral nephrostomy, acute renal failure on HD /Sun w/ Dr. Pineda (started 01/06/2025) presented to the hospital on 02/13/2025 due to 2 days of constant dull pain around her left nephrostomy insertion site along with fever. At [facility], she underwent CT scan to evaluate for possible malposition or dysfunction of the nephrostomy tube, which comfirmed appropriate placement and drainage. The nephrostomy was originally placed in November [address] [facility] for significant hydronephrosis secondary to obstruction from a bladder mass. After discharge, she was initially followed by an oncologist in [place], but surgical resection was not feasible, and she was referred to another oncologist. Due to insurance barriers, however, she has been unable to establish further oncologic care for over one month. She also reported missing her scheduled hemodialysis session on sunday this week, but was able to attend treatment on . Patient complains of vomiting and nausea. Denies chest pain, palpation, SOB, abdominal pain. Patient has been admitted for management of UTI, SAPPHIRE and hemodialysis. Nephrology has been consulted for management of SAPPHIRE and hemodialysis. ED course: -Initial vitals were 97.8 F, HR 68, RR 17, BP 139/69, 100% O2 RA -Labs significant for WBC 15.6, Hgb 10.3, Na 132, Cr 2.0, glucose 224, mag 1.5, alk phos 144, CRP 21.3, BNP 108 UA: pH 7.5, 3+ protein, glucose 1+, blood 3+, rbc 1210, wbc 102, bacteria 2+, urine yeast present Blood x2 and urine cultures taken -Imaging included CXR: Pulmonary nodular densities in the lower lung zone on the right CTAP: Nephrostomy tubes are in satisfactory position, no hydronephrosis -In the ED, patient was given 250 ml NS IV x1, tylenol, zofran, cefepime 50 mls x1, ketorolac 30 mg IV x1, dilaudid 1 mg x1, vancomycin 1,000 mg x1, Fluconazole 400 mg x1, mag sulfate 2 gm x1. -Patient was admitted for workup and management of UTI. Past Medical History: above Surgical History: x1 Social History: Patient lives in [place] with , denies any tobacco, alcohol or illicit drug use. Current Medications: hydralazine 50 mg, carvedilol 25 mg, amlodipine, cefuroxime, norco, iron supplements, famotidine 20 mg, parker-mj, senna Allergies: No known drug allergies 02/14/2025: Labs reviewed and patient examined at the bedside. 02/15/2025: Labs reviewed and patient examined at the bedside. BUN:15 Cr:1.9, eGFR:33, Urine Output:1.4 L yesterday. Currently no other complains. Will continue on antibiotics for UTI. Showing good urine output and renal function showed slight improvement. No need for hemodialysis. After discharge patient must get oncologic and surgical treatment for her bladder mass as soon as possible to prevent further complications. 02/16/2025: Labs reviewed and patient examined at the bedside. Patient endorses Nausea and vomiting. Urine is clear and yellow. Nephrostomy tube draining well. Cr improved to 1.6. Kidney function is improving. Will take dialysis cathether out. 02/17/2025: Labs reviewed and patient examined at the bedside. BUN:13, Cr:1.6, eGFR:41. Renal gonzáles, patient is stable. Okay to discharge. 02/18/2025: Labs reviewed and patient examined at the bedside. BUN:13, Cr:1.7, eGFR:38. Renal gonzáles, patient is stable. Okay to discharge. Exam Vital Signs Temp Pulse Resp BP Pulse Ox O2 Del Method 97.2 F 78 17 156/89 H 99 Room Air 02/18/25 08:00 02/18/25 08:12 02/18/25 08:00 02/18/25 08:12 02/18/25 08:00 02/18/25 08:00 Narrative Exam General: well nourished, AAO x3 Eye: normal conjunctiva, no scleral icterus HENT: Normocephalic, atraumatic, hearing intact to conversation at normal volume, moist oral mucosa Neck: Supple, non-tender, no JVD, no lymphadenopathy Lungs: Non-labored respirations, symmetric chest rise, Clear to auscultate bilaterally, No wheezing, rhonchi, crackles Heart: Peripheral pulses intact bilaterally, Regular Rate and Rhythm. Abdomen: Soft, non-tender, non-distended, no palpable masses, Bilateral nephrostomy insertion site at lower back. Musculoskeletal: Normal range of motion and strength, No cyanosis or edema, No visible joint swelling Skin: Skin is warm, dry, no rashes or lesions. IJ PermCath Psychiatric: Cooperative, appropriate mood and affect, Awake and alert, agitated Neuro: Cranial nerves II-XII grossly intact. Strength 5/5 throughout. Sensations intact to light touch. Objective Labs 02/18/25 04:31 02/18/25 04:31 Labs: Laboratory Results - last 24 hr 02/18/25 04:31 WBC 8.9 RBC 3.67 L Hgb 9.7 L Hct 30.1 L MCV 82 MCH 26.4 MCHC 32.2 RDW Std Deviation 49.5 H Plt Count 450 H D Neut % (Auto) 59 Lymph % (Auto) 29 [place] % (Auto) 7 Eos % (Auto) 3 Baso % (Auto) 1 Neut # (Auto) 5.3 Lymph # (Auto) 2.6 [place] # (Auto) 0.6 Eos # (Auto) 0.3 Baso # (Auto) 0.1 Immature Gran # (Auto) 0.07 H Absolute Nucleated RBC 0.00 Immature Gran % 1 H Nucleated RBC % 0 Sodium 137 Potassium 4.4 D Chloride 104 Carbon Dioxide 23.2 Anion Gap 10 BUN 13 Creatinine 1.7 H Estim Creat Clear Calc 43.6 L eGFR 38 L BUN/Creatinine Ratio 8 L Glucose 149 H Calculated Osmolality 276 Calcium 9.5 Corrected Calcium 9.5 Phosphorus 3.6 Albumin 4.0 Quality Measures Quality Measures VTE prophylaxis Assessment & Plan Assessment Current Active Medications: Generic Name Dose Route Start Last Admin Trade Name Freq PRN Reason Stop Dose Admin Acetaminophen 650 mg 02/15/25 12:11 Acetaminophen 325 Mg Tablet PO 03/16/25 01:09 Q6H PRN FEVER >100.4 Hydrocodone Bitart/Acetaminophen 1 tab 02/14/25 07:14 02/16/25 16:54 Hydrocodone/Apap 5/325 Tablet PO 02/19/25 07:13 1 tab Q4HR PRN Administration Pain 4-6 Amlodipine Besylate 10 mg 02/14/25 09:00 02/18/25 08:12 Amlodipine Besylate 5 Mg Tablet PO 03/16/25 08:59 10 mg QDAY CLEMENTINE Administration Carvedilol 25 mg 02/17/25 17:30 02/18/25 08:11 Carvedilol 12.5 Mg Tablet PO 03/16/25 08:59 25 mg BIDWM CLEMENTINE Administration Dextrose 25 ml 02/14/25 01:26 Dextrose 50%-Water Inj 50 Ml Syringe IV 03/16/25 01:25 Q15MIN PRN BG 50-70 responsive npo pt Dextrose 50 ml 02/14/25 01:26 Dextrose 50%-Water Inj 50 Ml Syringe IV 03/16/25 01:25 Q15MIN PRN BG <50 OR BG <70 & pt unresponsive Famotidine 20 mg 02/14/25 09:00 02/18/25 08:12 Famotidine 20 Mg Tablet PO 03/16/25 08:59 20 mg BID CLEMENTINE Administration Glucagon 1 mg 02/14/25 01:26 Glucagon Inj 1 Mg Vial IM Q15MIN PRN BG <70, and no IV access Heparin Sodium (Porcine) 5,000 unit 02/14/25 10:00 02/18/25 08:11 Heparin Sod Inj 5000 Unit/Ml Vial SC 02/28/25 09:59 5,000 unit Q12HR CLEMENTINE Administration Hydromorphone HCl 0.5 mg 02/14/25 07:14 02/18/25 07:56 Hydromorphone Inj 2 Mg/Ml Vial IVP 02/19/25 01:14 0.5 mg Q4H PRN Administration Pain 7-10 Cefepime HCl 2 gm/ Sodium 50 mls @ 100 mls/hr 02/15/25 21:00 02/18/25 08:10 Chloride IV 02/21/25 08:59 100 mls/hr Q12HR CLEMENTINE Administration Insulin Degludec 18 unit 02/16/25 21:00 02/17/25 21:00 Insulin Degludec 5 Unit/0.05 Ml (Per 5 Units) SC 03/18/25 20:59 18 unit HS CLEMENTINE Administration Insulin Human Lispro 0 unit 02/16/25 11:30 02/18/25 07:50 Insulin Lispro (Admelog) 1 Unit/0.01 Ml Unit SC 10/22/25 11:29 1 unit AC CLEMENTINE Administration Protocol Labetalol HCl 10 mg 02/14/25 16:23 Labetalol Inj 5 Mg/Ml Vial 20 Ml IVP Q10MIN PRN hypertension Ondansetron HCl 4 mg 02/14/25 01:10 02/14/25 09:02 Ondansetron Inj 2 Mg/Ml Inj 2 Ml IVP 03/16/25 01:09 4 mg Q6H PRN Administration NAUSEA OR VOMITING Protocol Sennosides 1 tab 02/14/25 01:10 02/17/25 03:32 Senna Tablet PO 03/16/25 01:09 1 tab QDAY PRN Administration constipation Protocol Plan 44 y/o F with PMH of HTN, Insulin dependent-T2DM, GERD, hx valley fever treated 1.5 months ago, non-malignant bladder mass, bilateral hydronephrosis s/p bilateral nephrostomy, acute renal failure on HD Tu/Sat w/ Dr. Pineda (started 01/06/2025) presented to the hospital on 02/13/2025 due to 2 days of constant dull pain around her left nephrostomy insertion site along with fever. Patient has been admitted for managment of UTI, SAPPHIRE and hemodialysis. Nephrology has been consulted for management of SAPPHIRE and hemodialysis. #SAPPHIRE, post renal 2/2 Urinary retention 2/2 Bladder mass. #on Hemodialysis (Sunday, Sunday) -On admission: BUN: 15, Cr:2.0, eGFR:31. -On admission UA (02/13): [place] Turbid urine, Urine protein:3+, Urine Glucose:1+, Urine Blood: 3+, Urine Nitrite positive, Urine leukocyte esterase positive, Urine RBC 1210, Urine WBC:102, Urine Bacteria 2+ -Repeat UA after 3 hours(02/14): Clear Yellow Urine, Urine protein:1+, Urine Glucose: negative, Urine blood: Trace, Urine Nitrite:Positive, Urine Leukocyte esterase: positive, Urine RBC:<1, Urine WBC:14, Urine Bacteria:Rare -CXR (02/13/2025): Nodular opacities in the right lower lung zone, Right internal jugular dialysis catheter satisfactory position, Normal heart size, Mild mild vascular congestion, The osseous structures are intact. -CTAP(02/13/2025): Nephrostomy tubes are in satisfactory position, no hydronephrosis -Patient had Acute Renal Failure in November 2024 due to urinary retention caused by bladder mass. Patient elevated Cr levels and decreased GFR likely contributory to the stress exerted by untreated bladder mass and nephrostomy tube to her kidneys. Unless her bladder mass is treated, nephrostomy tube cannot be removed and her kidney function is unlikely to improve-needing dialysis. -Currently, BUN:13, Cr:1.7, eGFR:38 Plan: -Patient received hemodialysis on Sunday last week. Currently, patient does not need hemodialysis-excellent urine output -Avoid nephrotoxins -Renally dose medication #UTI -Patient's presention was left sided pain near nephrostomy tube insertion site with fever. -Likely infection due to the nephrostomy tube. -Elevated WBC and UA showing presence of UTI. -Received Vancomycin and Ceftriaxone Plan:. -Will continue to monitor. #Insulin Dependent T2DM #HTN #Anemia, normocytic -Management per Primary Hospitalist team Thank you for allowing us to participate in the care of your patient. Patient is stable in nephrology standpoint. No further recommendations. Assessment and plan discussed with my attending physician Dr. Miriam Silva (PGY-1)- Internal medicine resident Attending Provider Attestation/Addendum patient currently seen and examined with resident physician Dr. Silva. Note reviewed, agree with findings and recommendations. Patient currently seen in medical floor. at bedside. Complaining of severe pain from the nephrostomy tube sites. Good urine output from nephrostomy tubes. Creatinine stable. Electrolytes stable. Patient has renal recovery- dialysis, dialysis catheter was discontinued. In the interim patient being treated for complicated UTI due to nephrostomy tubes. Spoke to primary team. Dr Shaver on the case. Dr. Shaver recommended couple of days of Bactrim.
[2025-02-18] MEDS: HYDROcodone/APAP 5/325 TABLET 1 TAB PO ×2 (09:19→20:44)
--- NOTE | 2025-02-18 10:42 | PC.SS ---
Follow up note: On IV antibiotic. Pt will possibly require PICC line to continue IV antibiotic.
[2025-02-18] MEDS: POLYETHYLENE GLYCOL 17 GM PACKET PO (10:57)
--- NOTE | 2025-02-18 13:15 | PD.IDPROG ---
Subjective Subjective Interval history: hd line removed. creat noted. urine cx noted. unusual germs and not that many wbc. 10 is not a lot. and our lab works up all urines regardless of the number of wbc Exam Vital Signs Temp Pulse Resp BP Pulse Ox O2 Del Method 97.2 F 78 17 156/89 H 99 Room Air 02/18/25 08:00 02/18/25 08:12 02/18/25 08:00 02/18/25 08:12 02/18/25 08:00 02/18/25 08:00 Narrative Exam benign abd. non malignant bladder mass noted. hs od dm and ckd too, so off hd now suspect she may have had cystitis. so that allows 3-4d of cefepime Objective - Internal Medicine Labs 02/18/25 04:31 02/18/25 04:31 Labs: Laboratory Results - last 24 hr 02/18/25 04:31 WBC 8.9 RBC 3.67 L Hgb 9.7 L Hct 30.1 L MCV 82 MCH 26.4 MCHC 32.2 RDW Std Deviation 49.5 H Plt Count 450 H D Neut % (Auto) 59 Lymph % (Auto) 29 [place] % (Auto) 7 Eos % (Auto) 3 Baso % (Auto) 1 Neut # (Auto) 5.3 Lymph # (Auto) 2.6 [place] # (Auto) 0.6 Eos # (Auto) 0.3 Baso # (Auto) 0.1 Immature Gran # (Auto) 0.07 H Absolute Nucleated RBC 0.00 Immature Gran % 1 H Nucleated RBC % 0 Sodium 137 Potassium 4.4 D Chloride 104 Carbon Dioxide 23.2 Anion Gap 10 BUN 13 Creatinine 1.7 H Estim Creat Clear Calc 43.6 L eGFR 38 L BUN/Creatinine Ratio 8 L Glucose 149 H Calculated Osmolality 276 Calcium 9.5 Corrected Calcium 9.5 Phosphorus 3.6 Albumin 4.0 Assessment & Plan A&P Narrative possible uti w/o bacteremia. cx noted. more likely cystitis as cx are from nephrostomy tubes. obstructive uropathy with hx of nephrolithiasis and prior hd and bladder stone and non malignant mass (papilloma) with nephrostomies noted was febrile on admit only, not since. so may have had cystitis. sx are vague and more related to the tubes rather than infection. bactrim is problematic with ckd so will not give it but stop rx and f/u sunday. if home. that is ok. will see sunday if here, I can not see her in clinic, and cx are notably from the nephrostomy tubes , so please check a cath urine next time. too late now Time Spent With Patient Time: Total time spent is greater than 50% in coordination of care (as documented) at patient's floor/unit and/or counseling patient:
--- NOTE | 2025-02-18 15:08 | ESPR_ITS ---
<Statement entered by Hi Walker MD - 02/18/25 19:02> No acute overnight events. Patient is complaining of mild rectal pain otherwise does not have any complaints. Labs did not show any significant abnormality and noted to have a stable renal functions as of today. Infectious disease specialist, Dr Shaver is consulted and he recommended discontinuation of antibiotics. But will complete 7-day course of antibiotic till 02/20/2025 and will discharge the patient as patient had bilateral nephrostomy tubes I have personally seen and examined the patient, agree with residents assessment and plan Patient plan of care was discussed with the attending physician, Dr. Angeles Walker, PGY2 Documentation for date of: 02/18/25 Subjective Subjective Interval history: No acute events overnight. This morning patient was complaining of rectal pain, on exam no bleeding. Upon chart review has not had a bowel movement since admission, was started on senna and MiraLAX daily. Will continue to monitor. Consulted infectious diseases specialist Dr. Faith, has low suspicion for infection and recommended discontinuing treatment altogether. Also did not recommend Bactrim due to poor renal function. Currently on IV cefepime day 5, decided to complete 7-day course. Anticipate discharge after antibiotic course completed. Exam Vital Signs Temp Pulse Resp BP Pulse Ox O2 Del Method 97.2 F 78 17 156/89 H 99 Room Air 02/18/25 08:00 02/18/25 08:12 02/18/25 08:00 02/18/25 08:12 02/18/25 08:00 02/18/25 08:00 Narrative Exam Physical Exam General: Awake and in mild distress due to pain. Conversational and non-toxic appearing. HEENT: Normocephalic, atraumatic, mucous membranes moist. Heart: Regular rate and rhythm, normal S1 and S2, no murmurs. Lungs: Clear to auscultation with no wheezing or crackles. Abdomen: Soft, nondistended, nontender, positive bowel sounds. No guarding or rebound tenderness. : Bilateral nephrostomy tubes in back, draining well. Light yellow urine in both bags. No purulent drainage or erythema around insertion sites. Neurologic: Alert and oriented x3, no gross neurological deficit, and patient able to move all 4 extremities. Extremities: No edema. Skin: No rash or ecchymoses. Objective Labs 02/19/25 04:22 02/19/25 04:22 Labs: Laboratory Results - last 24 hr 02/18/25 04:31 WBC 8.9 RBC 3.67 L Hgb 9.7 L Hct 30.1 L MCV 82 MCH 26.4 MCHC 32.2 RDW Std Deviation 49.5 H Plt Count 450 H D Neut % (Auto) 59 Lymph % (Auto) 29 Pope % (Auto) 7 Eos % (Auto) 3 Baso % (Auto) 1 Neut # (Auto) 5.3 Lymph # (Auto) 2.6 Pope # (Auto) 0.6 Eos # (Auto) 0.3 Baso # (Auto) 0.1 Immature Gran # (Auto) 0.07 H Absolute Nucleated RBC 0.00 Immature Gran % 1 H Nucleated RBC % 0 Sodium 137 Potassium 4.4 D Chloride 104 Carbon Dioxide 23.2 Anion Gap 10 BUN 13 Creatinine 1.7 H Estim Creat Clear Calc 43.6 L eGFR 38 L BUN/Creatinine Ratio 8 L Glucose 149 H Calculated Osmolality 276 Calcium 9.5 Corrected Calcium 9.5 Phosphorus 3.6 Albumin 4.0 Quality Measures Quality Measures VTE prophylaxis Assessment & Plan Assessment Current Active Medications: Generic Name Dose Route Start Last Admin Trade Name Freq PRN Reason Stop Dose Admin Acetaminophen 650 mg 02/15/25 12:11 Acetaminophen 325 Mg Tablet PO 03/16/25 01:09 Q6H PRN FEVER >100.4 Hydrocodone Bitart/Acetaminophen 1 tab 02/14/25 07:14 02/18/25 09:19 Hydrocodone/Apap 5/325 Tablet PO 02/19/25 07:13 1 tab Q4HR PRN Administration Pain 4-6 Amlodipine Besylate 10 mg 02/14/25 09:00 02/18/25 08:12 Amlodipine Besylate 5 Mg Tablet PO 03/16/25 08:59 10 mg QDAY CLEMENTINE Administration Carvedilol 25 mg 02/17/25 17:30 02/18/25 08:11 Carvedilol 12.5 Mg Tablet PO 03/16/25 08:59 25 mg BIDWM CLEMENTINE Administration Dextrose 25 ml 02/14/25 01:26 Dextrose 50%-Water Inj 50 Ml Syringe IV 03/16/25 01:25 Q15MIN PRN BG 50-70 responsive npo pt Dextrose 50 ml 02/14/25 01:26 Dextrose 50%-Water Inj 50 Ml Syringe IV 03/16/25 01:25 Q15MIN PRN BG <50 OR BG <70 & pt unresponsive Famotidine 20 mg 02/14/25 09:00 02/18/25 08:12 Famotidine 20 Mg Tablet PO 03/16/25 08:59 20 mg BID CLEMENTINE Administration Glucagon 1 mg 02/14/25 01:26 Glucagon Inj 1 Mg Vial IM Q15MIN PRN BG <70, and no IV access Heparin Sodium (Porcine) 5,000 unit 02/14/25 10:00 02/18/25 08:11 Heparin Sod Inj 5000 Unit/Ml Vial SC 02/28/25 09:59 5,000 unit Q12HR CLEMENTINE Administration Hydromorphone HCl 0.5 mg 02/14/25 07:14 02/18/25 14:52 Hydromorphone Inj 2 Mg/Ml Vial IVP 02/19/25 01:14 0.5 mg Q4H PRN Administration Pain 7-10 Insulin Degludec 18 unit 02/16/25 21:00 02/17/25 21:00 Insulin Degludec 5 Unit/0.05 Ml (Per 5 Units) SC 03/18/25 20:59 18 unit HS CLEMENTINE Administration Insulin Human Lispro 0 unit 02/16/25 11:30 02/18/25 11:01 Insulin Lispro (Admelog) 1 Unit/0.01 Ml Unit SC 03/18/25 11:29 1 unit AC CLEMENTINE Administration Protocol Labetalol HCl 10 mg 02/14/25 16:23 Labetalol Inj 5 Mg/Ml Vial 20 Ml IVP Q10MIN PRN hypertension Ondansetron HCl 4 mg 02/14/25 01:10 02/14/25 09:02 Ondansetron Inj 2 Mg/Ml Inj 2 Ml IVP 03/16/25 01:09 4 mg Q6H PRN Administration NAUSEA OR VOMITING Protocol Polyethylene Glycol 17 gm 02/18/25 10:45 02/18/25 10:57 Polyethylene Glycol 17 Gm Packet PO 03/20/25 10:44 17 gm QDAY CLEMENTINE Administration Sennosides 1 tab 02/18/25 10:45 02/18/25 11:01 Senna Tablet PO 03/20/25 10:44 1 tab QDAY CLEMENTINE Administration Protocol Plan Patient is a 44 year old female with past medical history HTN, ID-T2DM, GERD, hx valley fever treated non-malignant bladder mass, bilateral hydronephrosis s/p bilateral nephrostomy, acute renal failure on HD /Sun w/ Dr. Pineda (started 01/06/2025) presented to the ED after having L flank pain with fever. Patient was admitted for workup and management of UTI. #UTI, complicated Presented with fever, n/v, left flank pain, erythema of left nephrostomy tube, likely infection of left tube. Meets 3/4 SIRS criteria on admission: Temp 101.5, tachypnea, and WBC 15.6 but no evidence of end organ damage. Creatinine elevated but at baseline. CRP 21.3. UA showed evidence of UTI, WBC 14, RBC <1 CT A/P showed nephrostomy tubes in satisfactory position, no hydronephrosis. S/p fluids, cefepime, vancomycin, fluconazole x 1 in ED. Urine culture 02/13 grew Enterobacter cloacae, Stenotrophomonas maltophilia, and pseudo fluorescens/putida; sensitive to cefepime. Blood cultures negative for 48 hours. Plan: - Cefepime 2 gm IV (02/14-02/20) - CTM left nephrostomy tube drainage - Consulted ID Dr. Shaver, appreciate recommendations: does not recommend antibiotic treatment due to low suspicion for infection, does not recommend Bactrim in setting of decreased renal function #Urothelial papilloma with chronic cystitis #Acute renal failure #Hemodialysis Sunday/Sunday (12/15/24) #S/p bilateral nephrostomy tubes (12/19/24) #S/p tunneled dialysis catheter removal (02/16/2025) On previuos admission, was found to have posterior bladder mass diagnosed as urothelial papilloma with chronic cystitis. This obstruction resulted in bilateral hydronephrosis and acute renal failure to the point that patient required hemodialysis. Nephrostomy tubes were eventually placed by urologist Dr. Friedman on 12/19/24. However right tube became obstructed and was removed but unable to be replaced. Was discharged from [facility] with left nephrostomy tube and scheduled for close outpatient follow-up with Dr. Forbes. Patient reports that after discharge she went to [facility] where right nephrostomy tube was reinserted, continues to drain well. Was unable to have mass removed at [facility] due to lack of urology service. Follows computer technician Dr. Pineda, on Sunday/Sunday hemodialysis schedule. Last HD session 02/07. Baseline creatinine 1.8-3.4. Creatinine 2.0 on admission. S/p tunnel catheter removal 02/16. Plan: - Consulted computer technician Dr. Pineda, appreciate recommendations: Removal of tunneled catheter, no more HD - Will need higher level care for urology to remove bladder mass, pending insurance authorization to see urologist - Pain regimen with Tylenol and Sullivan prn #Insulin Dependent T2DM Home meds stated insulin 30 units long acting, 5 units with meals Upon chart review, 18 units long acting Degludec Glucose 224 on admission Plan: - Degludec 18 units nightly - SSI - Accu-checks - CTM glucose #HTN Home meds include carvedilol 25 mg po bid, hydralazine 50 mg 1 tab/day, amlodipine 10 mg daily. Plan: - Continue home dose carvedilol and amlodipine - Hold hydralazine - IV labetolol prn - CTM BP #Anemia, normocytic Likely due to EMILY. Iron panel 12/11/24 showed low iron and saturation, TIBC and iron saturated iron-binding within normal limits. Patient takes home iron supplements. No signs or symptoms of bleeding at this time. Plan: - Hold home iron in setting of infection - CTM hemoglobin - Transfuse if Hgb <7 - Consider starting on ferrous sulfate outpatient #Pulmonary masses, stable #Hx Valley Fever Visualized on repeat imaging since 03/21/2024. Right midlung mass 25-30mm and right lower lobe mass 18-22mm mass. CT A/P 02/13: Again noted pulmonary masses in the right middle lobe and right lower lobe noted on the 01/28/2025 exam Plan: - Fairly stable, will CTM Health Maintenance Disposition: med tele DVT prophylaxis: heparin GI prophylaxis: famotidine Bowel regimen: senna and miralax daily Diet: carb consistent CODE STATUS: FULL Patient plan of care was discussed with the resident, Dr. Walker, and attending physician, Dr. Reynoso. Mounika Orosco, PGY-1 Attending Provider Attestation/Addendum I have discussed and was present for the essential components of the history, physical examination, diagnosis, and treatment plan with the resident. I agree with the patient's care as documented by the resident and amended herein by me. Rafiq Reynoso DO. Although this document has been carefully reviewed, there may still be some phonetic and other typographical errors. These errors are purely grammatical due to imperfections in the software program and should not be construed in any way to compromise the substance of the patient's medical care during this visit.
--- NOTE | 2025-02-18 17:04 | ESCONSULT_ITS ---
RE: [id number] LIN : 1980 DATE OF CONSULTATION: 02/18/2025 REFERRING PHYSICIAN: Mounika Orosco MD REASON FOR CONSULTATION: Positive urine culture with resistant organisms and chronic kidney disease. HISTORY OF PRESENT ILLNESS: The patient is an unfortunate 44-year-old woman. She is diabetic and has some chronic kidney disease as well as acute kidney injury. The acute kidney injury was caused by renal stones. There were obstructive see imaging reports. Bilateral nephrostomy was in place and urology has yet to opine upon when they might be removed. Her dialysis catheter was removed. This has not been used for a long time and she is notably diabetic. PAST MEDICAL HISTORY: She is 6, para 6 with one . PAST SURGICAL HISTORY: Include prior . Nephrostomy was done this summer at this hospital bilaterally and never changed according to the patient. The records suggest that attempts were made to change the catheters, but it is unclear if they were changed according to her. She also had some sort of oral abscess or drainage. ALLERGIES: NONE NOTED. IMMUNIZATIONS: Last tetanus is not known. She does take flu shot every year. She has not had COVID vaccine and has had pneumococcal vaccination. FAMILY HISTORY: Positive for diabetes and hypertension. SOCIAL HISTORY: Lives at home with her . I did not ask about work history. There is no tobacco use noted. PHYSICAL EXAMINATION: On exam, the patient has a benign abdomen. There is some tenderness about the nephrostomy tubes, but there is otherwise no CVA tenderness overtly and I do not think she has more of a cystitis of anything. Attempting to treat colonizing germs like stenotrophomonas may be problematic because steno is mostly a germ that is found when all the germs have been treated. It is a species that used to be called Pseudomonas maltophilia and now it has its own name Stenotrophomonas maltophilia. When it was called Pseudomonas maltophilia, we often attributed it to colonization, but it is still a frequent colonizer. RECOMMENDATIONS: If you wish to treat her, you can give her Bactrim for a day or two, but I would not probably target it. Instead, just stop the cefepime and vancomycin and see how she does. I will check on her on Sunday if she remains, but if she goes home, in the meantime, that would be fine. She is to see urology in followup and determine the duration of the nephrostomy tubes. cc: Christina Pineda MD Mounika Orosco DT: 14:23:19 TT: 16:57:00 Ref: [id number] - TID: [id number] MTDD
--- NOTE | 2025-02-18 19:15 | ESCONSULT_ITS ---
<Statement entered by Malcolm Shaver MD - 02/20/25 08:54> pt seen with resident. all findings confirmed. 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 She reported her fever being present during admission and 2 days prior to that. The patient reported the pain being constant, and nonradiating, and was associated with nonbilious vomiting. The patient's nephrostomy tube was placed on November 2024. She reported, left nephrostomy tube draining twice as much as right side. The patient was started on cefepime and vancomycin by the primary hospitalist team. 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 UA revealed positive nitrite, leukocyte esterase positive, WBC protein, bacteria rare. CT abdomen/pelvis revealed nephrostomy tubes in satisfactory position, no hydronephrosis. Initial urine culture drawn on 02/13/2025 revealed multi organism multidrug-resistant UTI with Enterobacter cloacae, stenotrophomonas maltophilia and pseudo fluorescence. Repeat urine culture on 02/14/2025 revealed stenotrophomonas maltophilia MDR UTI, sensitive to Bactrim. Blood culture has been negative so far. The patient does not have any history of MDR UTI. PMH: As mentioned above Surgical history: x 1, bilateral nephrostomy tube placed on November 2024 Family history: Unremarkable Social history: Lives in [place] with , denies any alcohol, tobacco or illicit drug use Medications: Hydralazine 50 mg, carvedilol 25 Mg, amlodipine, cefuroxime, [place], iron supplements, famotidine, [place]oz[place], senna Allergies: No known allergies Infectious disease consultation was done for further management of multidrug- resistant multi organism UTI. cc:: cc: Pedro Luis Reynoso DO Review of Systems Review of Systems Systems Reviewed: All systems reviewed, normal except as documented (Above) Exam Vital Signs Temp Pulse Resp BP Pulse Ox O2 Del Method 97.7 F 61 16 125/72 99 Room Air 02/18/25 16:00 02/18/25 17:04 02/18/25 16:00 02/18/25 17:04 02/18/25 16:00 02/18/25 16:00 Narrative Exam General: No acute distress, Alert and Oriented x 3 HEENT: Moist mucous membranes, oropharynx clear Neck: Supple, No masses, No JVD CVS: S1S2 Regular rate and rhythm, No murmurs, rubs or gallops Lungs: Clear to auscultation with no accessory use, no wheeze no rhonchi Abd: Soft, NT/ND, +BS, no organomegaly, bilateral nephrostomy tube draining well Ext: No edema, warm and well perfused Skin: No rash Psych: Appropriate mood and affect Results Labs 02/18/25 04:31 02/18/25 04:31 Labs: Short CBC 02/18/25 Range/Units 04:31 WBC 8.9 (3.6-11.0) Thou/mm3 Hgb 9.7 L (12.0-16.0) g/dL Hct 30.1 L (36.0-46.0) % Plt Count 450 H D (140-440) Thou/mm3 BMP 02/18/25 04:31 Sodium 137 Potassium 4.4 D Chloride 104 Carbon Dioxide 23.2 BUN 13 Creatinine 1.7 H Glucose 149 H Calcium 9.5 Liver Function 02/18/25 Range/Units 04:31 Albumin 4.0 (3.5-5.0) gm/dL Quality Measures Quality Measures VTE prophylaxis Medications Home Medications and Allergies Home Medications ?Medication ?Instructions ?Recorded ?Confirmed ?Type blood sugar diagnostic (Accu-Chek 12/11/24 02/14/25 H istory Guide test strips) buspirone 10 mg tablet 10 mg PO HS 12/11/24 5 History insulin lispro 100 unit/mL 5 unit subcut TID 12/11/24 02/14/25 History subcutaneous pen lancets (Accu-Chek Softclix 12/11/24 02/14/25 History Lancets) omeprazole 40 mg capsule,delayed 40 mg PO QDAY 5 02/14/25 History release pen needle, diabetic 31 gauge x 12/11/24 02/14/25 His tory 05/31 (TRUEplus Pen Needle) amlodipine 10 mg tablet 10 mg PO 1XD 02/14/25 History carvedilol 25 mg tablet 25 mg PO 1XD 02/14/25 History cefuroxime axetil 500 mg tablet 500 mg PO 1XD 02/14/25 02/14/25 History famotidine 20 mg tablet 20 mg PO 1XD 02/14/25 History ferrous sulfate 325 mg (65 mg 325 mg PO 1XD 02/14/25 0 02/14/25 History iron) tablet (FeroSul) hydralazine 50 mg tablet 50 mg PO 1XD 02/14/25 History Allergies Allergy/AdvReac Type Severity Reaction Status Date / Time No Known Allergies Allergy Verified 02/13/25 20:08 Visit Medications Acetaminophen (Acetaminophen 325 Mg Tablet) 650 mg PO Q6H PRN PRN Reason: FEVER >100.4 Stop: 03/16/25 01:09 Hydrocodone Bitart/Acetaminophen (Hydrocodone/Apap 5/325 Tablet) 1 tab PO Q4HR PRN PRN Reason: Pain 4-6 Stop: 02/19/25 07:13 Last Admin: 02/18/25 09:19 Dose: 1 tab Amlodipine Besylate (Amlodipine Besylate 5 Mg Tablet) 10 mg PO QDAY [facility] Stop: 03/16/25 08:59 Last Admin: 02/18/25 08:12 Dose: 10 mg Carvedilol (Carvedilol 12.5 Mg Tablet) 25 mg PO BIDWM [facility] Stop: 03/16/25 08:59 Last Admin: 02/18/25 17:04 Dose: 25 mg Dextrose (Dextrose 50%-Water Inj 50 Ml Syringe) 25 ml IV Q15MIN PRN PRN Reason: BG 50-70 responsive npo pt Stop: 03/16/25 01:25 Dextrose (Dextrose 50%-Water Inj 50 Ml Syringe) 50 ml IV Q15MIN PRN PRN Reason: BG <50 OR BG <70 & pt unresponsive Stop: 03/16/25 01:25 Famotidine (Famotidine 20 Mg Tablet) 20 mg PO BID [facility] Stop: 03/16/25 08:59 Last Admin: 02/18/25 08:12 Dose: 20 mg Glucagon (Glucagon Inj 1 Mg Vial) 1 mg IM Q15MIN PRN PRN Reason: BG <70, and no IV access Heparin Sodium (Porcine) (Heparin Sod Inj 5000 Unit/Ml Vial) 5,000 unit SC Q12HR [facility] Stop: 02/28/25 09:59 Last Admin: 02/18/25 08:11 Dose: 5,000 unit Hydromorphone HCl (Hydromorphone Inj 2 Mg/Ml Vial) 0.5 mg IVP Q4H PRN PRN Reason: Pain 7-10 Stop: 02/19/25 01:14 Last Admin: 02/18/25 14:52 Dose: 0.5 mg Insulin Degludec (Insulin Degludec 5 Unit/0.05 Ml (Per 5 Units)) 18 unit SC HS [facility] Stop: 03/18/25 20:59 Last Admin: 02/17/25 21:00 Dose: 18 unit Insulin Human Lispro (Insulin Lispro (Admelog) 1 Unit/0.01 Ml Unit) 0 unit SC AC [facility]; Protocol Stop: 03/18/25 11:29 Last Admin: 02/18/25 17:06 Dose: 1 unit Labetalol HCl (Labetalol Inj 5 Mg/Ml Vial 20 Ml) 10 mg IVP Q10MIN PRN PRN Reason: hypertension Ondansetron HCl (Ondansetron Inj 2 Mg/Ml Inj 2 Ml) 4 mg IVP Q6H PRN; Protocol PRN Reason: NAUSEA OR VOMITING Stop: 03/16/25 01:09 Last Admin: 02/14/25 09:02 Dose: 4 mg Polyethylene Glycol (Polyethylene Glycol 17 Gm Packet) 17 gm PO QDAY [facility] Stop: 03/20/25 10:44 Last Admin: 02/18/25 10:57 Dose: 17 gm Sennosides (Senna Tablet) 1 tab PO QDAY [facility]; Protocol Stop: 03/20/25 10:44 Last Admin: 02/18/25 11:01 Dose: 1 tab Discontinued Medications Acetaminophen (Acetaminophen 325 Mg Tablet) 650 mg PO X1 ONE Stop: 02/13/25 20:59 Last Admin: 02/13/25 21:49 Dose: 650 mg Acetaminophen (Acetaminophen 325 Mg Tablet) 650 mg PO Q6H PRN PRN Reason: FEVER >100.4 Stop: 03/16/25 01:09 Carvedilol (Carvedilol 12.5 Mg Tablet) 25 mg PO BID [facility] Stop: 03/16/25 08:59 Last Admin: 02/17/25 09:37 Dose: 25 mg Hydromorphone HCl (Hydromorphone Inj 2 Mg/Ml Vial) 1 mg IVP X1 ONE Stop: 02/13/25 20:59 Last Admin: 02/13/25 21:50 Dose: 1 mg Hydromorphone HCl (Hydromorphone Inj 2 Mg/Ml Vial) 0.5 mg IVP Q4H PRN PRN Reason: Pain 5-10 Stop: 02/19/25 01:14 Hydromorphone HCl (Hydromorphone Inj 2 Mg/Ml Vial) 0.5 mg IVP X1 ONE Stop: 02/18/25 09:27 Last Admin: 02/18/25 09:51 Dose: 0.5 mg Cefepime HCl 1 gm/ Sodium (Chloride) 50 mls @ 100 mls/hr IV X1 ONE Stop: 02/13/25 21:27 Last Infusion: 02/13/25 22:24 Dose: Infused Sodium Chloride (Ns) 250 mls @ 500 mls/hr IV .Q30M ONE Stop: 02/13/25 21:27 Last Infusion: 02/13/25 22:24 Dose: Infused Vancomycin HCl 1,000 mg/ (Sodium Chloride) 500 mls @ 150 mls/hr IV X1 ONE Stop: 02/14/25 00:17 Last Admin: 02/13/25 22:25 Dose: 150 mls/hr Fluconazole (Diflucan/Ns Ivpb) 400 mg in 200 mls @ 100 mls/hr IV X1 ONE Stop: 02/14/25 00:29 Last Infusion: 02/14/25 01:00 Dose: Infused Magnesium Sulfate (Magnesium Sulfate Ivpb) 2 gm in 50 mls @ 25 mls/hr IV X1 ONE Stop: 02/14/25 01:00 Last Infusion: 02/14/25 01:38 Dose: Infused Ceftriaxone Sodium/Dextrose (Rocephin/D5w 1gm Iv Premix) 1 gm in 50 mls @ 100 mls/hr IV QDAY [facility] Stop: 02/21/25 01:17 Vancomycin HCl 1,000 mg/ (Sodium Chloride) 250 mls @ 120 mls/hr IV X1 ONE Stop: 02/14/25 03:34 Cefepime HCl 2 gm/ Sodium (Chloride) 50 mls @ 100 mls/hr IV QDAY [facility] Stop: 02/21/25 08:59 Last Admin: 02/15/25 08:44 Dose: 100 mls/hr Cefepime HCl 2 gm/ Sodium (Chloride) 50 mls @ 100 mls/hr IV X1 ONE Stop: 02/14/25 02:14 Last Admin: 02/14/25 02:56 Dose: Not Given Sodium Chloride (Ns) 1,000 mls @ 999 mls/hr IV .Q1H1M ONE Stop: 02/14/25 03:01 Last Admin: 02/14/25 02:38 Dose: 999 mls/hr Vancomycin/Sodium Chloride (Vancomycin/Ns 1 Gm Ivpb) 200 mls @ 120 mls/hr IV HS [facility] Stop: 02/21/25 20:59 Vancomycin/Sodium Chloride (Vancomycin/Ns 1 Gm Ivpb) 200 mls @ 120 mls/hr IV HS@2200 [facility] Stop: 02/21/25 21:59 Cefepime HCl 2 gm/ Sodium (Chloride) 50 mls @ 100 mls/hr IV Q12HR [facility] Stop: 02/21/25 08:59 Last Infusion: 02/18/25 08:40 Dose: Infused Insulin Degludec (Insulin Degludec 5 Unit/0.05 Ml (Per 5 Units)) 30 unit SC QDAY [facility] Stop: 03/16/25 08:59 Insulin Degludec (Insulin Degludec 5 Unit/0.05 Ml (Per 5 Units)) 20 unit SC QDAY [facility] Stop: 03/16/25 08:59 Insulin Degludec (Insulin Degludec 5 Unit/0.05 Ml (Per 5 Units)) 18 unit SC QDAY [facility] Stop: 03/16/25 08:59 Last Admin: 02/16/25 08:50 Dose: 18 unit Insulin Human Lispro (Insulin Lispro (Admelog) 1 Unit/0.01 Ml Unit) 0 unit SC ACHS [facility]; Protocol Stop: 03/16/25 07:29 Last Admin: 02/16/25 07:32 Dose: 1 unit Ketorolac Tromethamine (Ketorolac Inj 30 Mg/Ml Vial) 30 mg IVP X1 ONE Stop: 02/13/25 20:59 Last Admin: 02/13/25 21:50 Dose: 30 mg Labetalol HCl (Labetalol Inj 5 Mg/Ml Vial 20 Ml) 10 mg IVP Q10MIN [facility] Stop: 02/18/25 16:31 Lidocaine HCl (Lidocaine Inj Pf 1% 30 Ml Vial) 7 ml INFL X1 ONE Stop: 02/16/25 14:07 Last Admin: 02/16/25 14:06 Dose: 7 ml Ondansetron HCl (Ondansetron Inj 2 Mg/Ml Inj 2 Ml) 4 mg IVP X1 ONE; Protocol Stop: 02/13/25 20:59 Last Admin: 02/13/25 21:49 Dose: 4 mg Pharmacy Consult (Vancomycin Pharmacy To Dose 1 Each Each) 1 each IV QDAY PRN PRN Reason: CONSULT Stop: 03/16/25 08:59 Sennosides (Senna Tablet) 1 tab PO QDAY PRN; Protocol PRN Reason: constipation Stop: 03/16/25 01:09 Last Admin: 02/17/25 03:32 Dose: 1 tab Vitamin B Complex/Vit C/Folic Acid (Vit B12/Vit C/Fa (Nephrovite) Tablet) 1 tab PO QDAY [facility] Stop: 03/16/25 08:59 Assessment & Plan Plan The patient is a 44-year-old female with past medical history significant for hypertension, diabetes mellitus type 2, insulin-dependent, GERD, 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 The patient's nephrostomy tube was placed on November 2024. She reported, left nephrostomy tube draining twice as much as right side. The patient was started on cefepime and vancomycin by the primary hospitalist team. Infectious disease consultation was done for further management of multidrug- resistant multi organism UTI. #Possible MDR multi organism UTI Most likely cystitis She presented to ED with chief complaint of left flank pain and fever. She reported her fever being present during admission and 2 days prior to that. The patient reported the pain being constant, and nonradiating, and was associated with nonbilious vomiting. UA revealed positive nitrite, leukocyte esterase positive, WBC protein, bacteria rare CT abdomen/pelvis revealed nephrostomy tubes in satisfactory position, no hydronephrosis. Initial urine culture drawn on 02/13/2025 revealed multi organism multidrug-resistant UTI with Enterobacter cloacae, stenotrophomonas maltophilia and pseudo fluorescence. Repeat urine culture on 02/14/2025 revealed stenotrophomonas maltophilia MDR UTI, sensitive to Bactrim. Blood culture has been negative so far. The patient does not have any history of MDR UTI. Patient was initially started on vancomycin and cefepime -Antibiotics stopped, already had 5 days of IV antibiotics, more likely to be cystitis, and has not had any fever after admission day. -Recommended to take catheter urine from next time -We will follow-up on Sunday #Urothelial papilloma with chronic cystitis #Acute kidney injury #S/p bilateral nephrostomy tubes (12/19/24) #Insulin Dependent T2DM #HTN #Anemia, normocytic #Pulmonary masses, stable #Hx Valley Fever -Management deferred to hospitalist team Thank you for your opportunity to participate in this patient care. We will follow-up in this patient on Sunday. The patient's management plan was discussed with my attending physician MD Rodrigo Macias MD, PGY3
[2025-02-18] MEDS: INSULIN DEGLUDEC 5 UNIT/0.05 ML (PER 5 UNITS) 18 UNIT SC (20:45)
[2025-02-19] VITALS (7 sets, daily range): BP systolic 122–142; BP diastolic 69–78; PULSE 58–68; RESP 16–19; TEMP 36.3–36.6; O2SAT 96–100
[2025-02-19] MEDS: HYDROmorphone INJ 2 MG/ML VIAL 0.5 MG IVP ×3 (03:55→11:53)
[2025-02-19 05:55] LABS: Basophils # (Auto) 0.1 Thou/mm3 (0.0-0.2); Basophils % (Auto) 1 % (0-2.5); Eosinophils # (Auto) 0.4 Thou/mm3 (0.0-0.5); Eosinophils % (Auto) 5 % (0-10); Hematocrit 30.4 % (36.0-46.0); Hemoglobin 9.4 g/dL (12.0-16.0); Immature Granulocytes Auto 0.10 Thou/mm3 (0.00-0.00); Lymphocytes # (Auto) 3.1 Thou/mm3 (1.0-4.8); Lymphocytes % (Auto) 33 % (10-50); Mean Corpuscular HGB Conc 30.9 g/dl (31.0-37.0); Mean Corpuscular Hemoglobin 25.7 pg (25.0-35.0); Mean Corpuscular Volume 83 fL (80-100); Monocytes # (Auto) 0.6 Thou/mm3 (0.0-0.8); Monocytes % (Auto) 7 % (0-12); Neutrophils # (Auto) 5.1 Thou/mm3 (1.8-7.7); Neutrophils % (Auto) 54 % (37-80); Nucleated Red Blood Cell # 0.00 Thou/mm3 (0.00-0.00); Nucleated Red Blood Cell % 0 /100 WBC (0); Platelet Count 469 Thou/mm3 (140-440); RDW Standard Deviation 51.6 fL (36.4-46.3); Red Blood Count 3.66 Miln/mm3 (4.00-5.20); White Blood Count 9.4 Thou/mm3 (3.6-11.0)
[2025-02-19 06:09] LABS: Albumin, Serum 4.1 gm/dL (3.5-5.0); Anion Gap 9 (7-16); BUN/Creatinine Ratio 9 Ratio (12-20); Blood Urea Nitrogen 14 mg/dL (9-23); Calcium 9.3 mg/dL (8.3-10.6); Calcium (Corrected) 9.3 mg/dL (8.5-10.1); Carbon Dioxide 23.5 mMol/L (20.0-31.0); Chloride 106 mMol/L (98-107); Creatinine (Component) 1.5 mg/dL (0.6-1.3); Estimated Creatinine Clearance 49.4 mL/min (>60); Glucose 124 mg/dL (74-106); Osmolality,Calculated 277 (275-295); Phosphorous 4.1 mg/dL (2.4-5.1); Potassium 4.5 mMol/L (3.4-5.1); Sodium 138 mMol/L (136-145); eGFR 44 See Note
[2025-02-19] MEDS: FAMOTIDINE 20 MG TABLET PO (07:59)
[2025-02-19] MEDS: POLYETHYLENE GLYCOL 17 GM PACKET PO (08:02)
[2025-02-19] MEDS: HEPARIN SOD INJ 5000 UNIT/ML VIAL SC (08:04)
--- NOTE | 2025-02-19 10:42 | ESPR_ITS ---
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 Pineda (started 01/06/2025) presented to the hospital on 02/13/2025 due to 2 days of constant dull pain around her left nephrostomy insertion site along with fever. At [facility], she underwent CT scan to evaluate for possible malposition or dysfunction of the nephrostomy tube, which comfirmed appropriate placement and drainage. The nephrostomy was originally placed in November 2024 at [facility] for significant hydronephrosis secondary to obstruction from a bladder mass. After discharge, she was initially followed by an oncologist in [place], but surgical resection was not feasible, and she was referred to another oncologist. Due to insurance barriers, however, she has been unable to establish further oncologic care for over one month. She also reported missing her scheduled hemodialysis session on sunday this week, but was able to attend treatment on . Patient complains of vomiting and nausea. Denies chest pain, palpation, SOB, abdominal pain. Patient has been admitted for management of UTI, SAPPHIRE and hemodialysis. Nephrology has been consulted for management of SAPPHIRE and hemodialysis. ED course: -Initial vitals were 97.8 F, HR 68, RR 17, BP 139/69, 100% O2 RA -Labs significant for WBC 15.6, Hgb 10.3, Na 132, Cr 2.0, glucose 224, mag 1.5, alk phos 144, CRP 21.3, BNP 108 UA: pH 7.5, 3+ protein, glucose 1+, blood 3+, rbc 1210, wbc 102, bacteria 2+, urine yeast present Blood x2 and urine cultures taken -Imaging included CXR: Pulmonary nodular densities in the lower lung zone on the right CTAP: Nephrostomy tubes are in satisfactory position, no hydronephrosis -In the ED, patient was given 250 ml NS IV x1, tylenol, zofran, cefepime 50 mls x1, ketorolac 30 mg IV x1, dilaudid 1 mg x1, vancomycin 1,000 mg x1, Fluconazole 400 mg x1, mag sulfate 2 gm x1. -Patient was admitted for workup and management of UTI. Past Medical History: above Surgical History: x1 Social History: Patient lives in [place] with , denies any tobacco, alcohol or illicit drug use. Current Medications: hydralazine 50 mg, carvedilol 25 mg, amlodipine, cefuroxime, norco, iron supplements, famotidine 20 mg, parker-mj, senna Allergies: No known drug allergies 02/14/2025: Labs reviewed and patient examined at the bedside. 02/15/2025: Labs reviewed and patient examined at the bedside. BUN:15 Cr:1.9, eGFR:33, Urine Output:1.4 L yesterday. Currently no other complains. Will continue on antibiotics for UTI. Showing good urine output and renal function showed slight improvement. No need for hemodialysis. After discharge patient must get oncologic and surgical treatment for her bladder mass as soon as possible to prevent further complications. 02/16/2025: Labs reviewed and patient examined at the bedside. Patient endorses Nausea and vomiting. Urine is clear and yellow. Nephrostomy tube draining well. Cr improved to 1.6. Kidney function is improving. Will take dialysis cathether out. 02/17/2025: Labs reviewed and patient examined at the bedside. BUN:13, Cr:1.6, eGFR:41. Renal gonzáles, patient is stable. Okay to discharge. 02/18/2025: Labs reviewed and patient examined at the bedside. BUN:13, Cr:1.7, eGFR:38. Renal gonzáles, patient is stable. Okay to discharge. 02/19/2025: Labs reviewed and patient examined at the bedside. Currently on IV antibiotics as one organism from urine culture was only sensitive to IV abx. Started IV cefepime for 7 days. Once that is done planned to discharge. Currently day 6 of IV abx. Exam Vital Signs Temp Pulse Resp BP Pulse Ox O2 Del Method 97.3 F 61 17 140/71 H 96 Room Air 02/19/25 07:41 02/19/25 07:59 02/19/25 07:41 02/19/25 07:59 02/19/25 07:41 02/19/25 07:41 Narrative Exam General: well nourished, AAO x3 Eye: normal conjunctiva, no scleral icterus HENT: Normocephalic, atraumatic, hearing intact to conversation at normal volume, moist oral mucosa Neck: Supple, non-tender, no JVD, no lymphadenopathy Lungs: Non-labored respirations, symmetric chest rise, Clear to auscultate bilaterally, No wheezing, rhonchi, crackles Heart: Peripheral pulses intact bilaterally, Regular Rate and Rhythm. Abdomen: Soft, non-tender, non-distended, no palpable masses, Bilateral nephrostomy insertion site at lower back. Musculoskeletal: Normal range of motion and strength, No cyanosis or edema, No visible joint swelling Skin: Skin is warm, dry, no rashes or lesions. IJ PermCath Psychiatric: Cooperative, appropriate mood and affect, Awake and alert, agitated Neuro: Cranial nerves II-XII grossly intact. Strength 5/5 throughout. Sensations intact to light touch. Objective Labs 02/19/25 04:22 02/19/25 04:22 Labs: Laboratory Results - last 24 hr 02/19/25 04:22 WBC 9.4 RBC 3.66 L Hgb 9.4 L Hct 30.4 L MCV 83 MCH 25.7 MCHC 30.9 L RDW Std Deviation 51.6 H Plt Count 469 H Neut % (Auto) 54 Lymph % (Auto) 33 Whitfield % (Auto) 7 Eos % (Auto) 5 Baso % (Auto) 1 Neut # (Auto) 5.1 Lymph # (Auto) 3.1 Whitfield # (Auto) 0.6 Eos # (Auto) 0.4 Baso # (Auto) 0.1 Immature Gran # (Auto) 0.10 H Absolute Nucleated RBC 0.00 Immature Gran % 1 H Nucleated RBC % 0 Sodium 138 Potassium 4.5 Chloride 106 Carbon Dioxide 23.5 Anion Gap 9 BUN 14 Creatinine 1.5 H Estim Creat Clear Calc 49.4 L eGFR 44 L BUN/Creatinine Ratio 9 L Glucose 124 H Calculated Osmolality 277 Calcium 9.3 Corrected Calcium 9.3 Phosphorus 4.1 Albumin 4.1 Quality Measures Quality Measures VTE prophylaxis Assessment & Plan Assessment Current Active Medications: Generic Name Dose Route Start Last Admin Trade Name Freq PRN Reason Stop Dose Admin Acetaminophen 650 mg 02/15/25 12:11 Acetaminophen 325 Mg Tablet PO 03/16/25 01:09 Q6H PRN FEVER >100.4 Amlodipine Besylate 10 mg 02/14/25 09:00 02/19/25 07:59 Amlodipine Besylate 5 Mg Tablet PO 03/16/25 08:59 10 mg QDAY CLEMENTINE Administration Carvedilol 25 mg 02/17/25 17:30 02/19/25 07:58 Carvedilol 12.5 Mg Tablet PO 03/16/25 08:59 25 mg BIDWM CLEMENTINE Administration Dextrose 25 ml 02/14/25 01:26 Dextrose 50%-Water Inj 50 Ml Syringe IV 03/16/25 01:25 Q15MIN PRN BG 50-70 responsive npo pt Dextrose 50 ml 02/14/25 01:26 Dextrose 50%-Water Inj 50 Ml Syringe IV 03/16/25 01:25 Q15MIN PRN BG <50 OR BG <70 & pt unresponsive Famotidine 20 mg 02/14/25 09:00 02/19/25 07:59 Famotidine 20 Mg Tablet PO 03/16/25 08:59 20 mg BID CLEMENTINE Administration Glucagon 1 mg 02/14/25 01:26 Glucagon Inj 1 Mg Vial IM Q15MIN PRN BG <70, and no IV access Heparin Sodium (Porcine) 5,000 unit 02/14/25 10:00 02/19/25 08:04 Heparin Sod Inj 5000 Unit/Ml Vial SC 02/28/25 09:59 5,000 unit Q12HR CLEMENTINE Administration Hydromorphone HCl 0.5 mg 02/19/25 03:47 02/19/25 07:59 Hydromorphone Inj 2 Mg/Ml Vial IVP 02/24/25 03:46 0.5 mg Q4HR PRN Administration PAIN SCALE 7-10 (Severe Insulin Degludec 18 unit 02/16/25 21:00 02/18/25 20:45 Insulin Degludec 5 Unit/0.05 Ml (Per 5 Units) SC 03/18/25 20:59 18 unit HS CLEMENTINE Administration Insulin Human Lispro 0 unit 02/16/25 11:30 02/19/25 07:45 Insulin Lispro (Admelog) 1 Unit/0.01 Ml Unit SC 03/18/25 11:29 Not Given [facility] Protocol Labetalol HCl 10 mg 02/14/25 16:23 Labetalol Inj 5 Mg/Ml Vial 20 Ml IVP Q10MIN PRN hypertension Ondansetron HCl 4 mg 02/14/25 01:10 02/14/25 09:02 Ondansetron Inj 2 Mg/Ml Inj 2 Ml IVP 03/16/25 01:09 4 mg Q6H PRN Administration NAUSEA OR VOMITING Protocol Polyethylene Glycol 17 gm 02/18/25 10:45 02/19/25 08:02 Polyethylene Glycol 17 Gm Packet PO 03/20/25 10:44 17 gm QDAY CLEMENTINE Administration Sennosides 1 tab 02/18/25 10:45 02/19/25 07:58 Senna Tablet PO 03/20/25 10:44 1 tab QDAY CLEMENTINE Administration Protocol Plan 44 y/o F with PMH of HTN, Insulin dependent-T2DM, GERD, hx valley fever treated 1.5 months ago, non-malignant bladder mass, bilateral hydronephrosis s/p bilateral nephrostomy, acute renal failure on HD /Sun w/ Dr. Pineda (started 01/06/2025) presented to the hospital on 02/13/2025 due to 2 days of constant dull pain around her left nephrostomy insertion site along with fever. Patient has been admitted for managment of UTI, SAPPHIRE and hemodialysis. Nephrology has been consulted for management of SAPPHIRE and hemodialysis. #SAPPHIRE, post renal 2/2 Urinary retention 2/2 Bladder mass. #on Hemodialysis (Sunday, Sunday) -On admission: BUN: 15, Cr:2.0, eGFR:31. -On admission UA (02/13): Mills Turbid urine, Urine protein:3+, Urine Glucose:1+, Urine Blood: 3+, Urine Nitrite positive, Urine leukocyte esterase positive, Urine RBC 1210, Urine WBC:102, Urine Bacteria 2+ -Repeat UA after 3 hours(02/14): Clear Yellow Urine, Urine protein:1+, Urine Glucose: negative, Urine blood: Trace, Urine Nitrite:Positive, Urine Leukocyte esterase: positive, Urine RBC:<1, Urine WBC:14, Urine Bacteria:Rare -CXR (02/13/2025): Nodular opacities in the right lower lung zone, Right internal jugular dialysis catheter satisfactory position, Normal heart size, Mild mild vascular congestion, The osseous structures are intact. -CTAP(02/13/2025): Nephrostomy tubes are in satisfactory position, no hydronephrosis -Patient had Acute Renal Failure in November 2024 due to urinary retention caused by bladder mass. Patient elevated Cr levels and decreased GFR likely contributory to the stress exerted by untreated bladder mass and nephrostomy tube to her kidneys. Unless her bladder mass is treated, nephrostomy tube cannot be removed and her kidney function is unlikely to improve-needing dialysis. -Currently, BUN:14, Cr:1.5, eGFR:44 Plan: -Patient received hemodialysis on Sunday last week. Currently, patient does not need hemodialysis-excellent urine output -Avoid nephrotoxins -Renally dose medication #UTI -Patient's presention was left sided pain near nephrostomy tube insertion site with fever. -Likely infection due to the nephrostomy tube. -Elevated WBC and UA showing presence of UTI. -Received Vancomycin and Ceftriaxone Plan:. -Currently on IV antibiotics as one organism from urine culture was only sensitive to IV abx. Started IV cefepime for 7 days. Once that is done planned to discharge. Currently day 6 of IV abx. -Will continue to monitor. #Insulin Dependent T2DM #HTN #Anemia, normocytic -Management per Primary Hospitalist team Thank you for allowing us to participate in the care of your patient. Patient is stable in nephrology standpoint. No further recommendations. Assessment and plan discussed with my attending physician Dr. Miriam Silva (PGY-1)- Internal medicine resident Attending Provider Attestation/Addendum patient currently seen and examined with resident physician Dr. Silva. Note reviewed, agree with findings and recommendations. Patient currently seen in medical floor. at bedside. Per Dr. Shaver can be discharged on p.o. Bactrim. Dialysis and dialysis catheter was removed. Will see her in my office in 1 to 2 weeks
--- NOTE | 2025-02-19 11:55 | PD.RESDS ---
Planned Discharge Date 02/19/25 DS: Providers Provider Date of admission: 02/14/25 01:10 Primary care physician: Stan Cedillo MD Admitting Provider: Renetta Amezcua MD Attending Provider on Admission: Pedro Luis Reynoso DO Consults: 02/14/25 01:32 Consult to Nephrology Routine Comment: HD T,S Consulting Provider: Christina Pineda 02/17/25 15:19 Consult to Infectious Diseases Routine Comment: UTI, for antibiotics Consulting Provider: Malcolm Shaver Attending Provider on DC: Pedro Luis Reynoso DO Discharging Provider: Mounika Orosco DO DS: Diagnosis Problem List Completed Was Problem List Reviewed/Reconciled?: Yes Hospital Course Hospital Course Hospital course: Summary: Patient is a 44 year old female with past medical history HTN, ID-T2DM, GERD, hx valley fever treated non-malignant bladder mass, bilateral hydronephrosis s/p bilateral nephrostomy, acute renal failure on HD [facility] w/ Dr. Pineda (started 01/06/2025) presented to the ED after having L flank pain with fever. Patient was admitted for workup and management of UTI. Nephrostomy tubes drained well throughout admission. Urine cultures grew 3 different organisms with different sensitivities. Improved significantly on IV cefepime, completed course from 02/14 to 02/19. Consulted ID Dr. Shaver who did not recommend Bactrim due to poor renal function however patient has improved from baseline creatinine. Due to significant improvement, public health administrator Dr. Pineda recommended remove full of hemodialysis catheter as patient no longer required HD. Internal medicine team felt safe discharging with 2 days of Bactrim. Strongly encouraged patient to follow-up with a urologist who can remove her bladder mass, currently pending insurance authorization. Patient was medically stable upon discharge. ED Course: -Initial vitals were 97.8 F, HR 68, RR 17, BP 139/69, 100% O2 RA -Labs significant for WBC 15.6, Hgb 10.3, Na 132, Cr 2.0, glucose 224, mag 1.5, alk phos 144, CRP 21.3, BNP 108 UA: pH 7.5, 3+ protein, glucose 1+, blood 3+, rbc 1210, wbc 102, bacteria 2+, urine yeast present -Imaging included CXR: Pulmonary nodular densities in the lower lung zone on the right. CTAP: Nephrostomy tubes are in satisfactory position, no hydronephrosis -In the ED, patient was given 250 ml NS IV x1, tylenol, zofran, cefepime 50 mls x1, ketorolac 30 mg IV x1, dilaudid 1 mg x1, vancomycin 1,000 mg x1, Fluconazole 400 mg x1, mag sulfate 2 gm x1. Discharge Recommendations: -Follow-up with PCP within 1 week of discharge. If you do not have appointment, please follow-up with the [facility] with Dr. Walker. Call [phone] to make an appointment. -Recommended to take Bactram Ds twice daily for 2 more days -Take carvedilol 25mg twice daily, Amlodipine 10mg once daily -Continue to take Wayland ass needed for pain -Stop rest of the home medications -Return to ED if symptoms persist or return Hospital Diagnoses: #UTI, complicated #Urothelial papilloma with chronic cystitis #Acute renal failure #Hemodialysis Sunday/Sunday (12/15/24) #S/p bilateral nephrostomy tubes (12/19/24) #S/p tunneled dialysis catheter removal (02/16/2025) #Insulin Dependent T2DM #HTN #Anemia, normocytic #Pulmonary masses, stable #Hx Valley Fever Disposition: Safe discharge to home. Patient plan of care was discussed with the senior resident, -, and attending physician, Dr. Major Orosco, PGY-1 Time Spent with Patient Time attestation: Total time spent providing and/or coordinating discharge services: Time spent: Greater than 30 minutes Exam Vital Signs Temp Pulse Resp BP Pulse Ox O2 Del Method 97.3 F 61 17 140/71 H 96 Room Air 02/19/25 07:41 02/19/25 07:59 02/19/25 07:41 02/19/25 07:59 02/19/25 07:41 02/19/25 07:41 Narrative Exam Physical Exam General: Awake and in mild distress due to pain. Conversational and non-toxic appearing. HEENT: Normocephalic, atraumatic, mucous membranes moist. Heart: Regular rate and rhythm, normal S1 and S2, no murmurs. Lungs: Clear to auscultation with no wheezing or crackles. Abdomen: Soft, nondistended, nontender, positive bowel sounds. No guarding or rebound tenderness. : Bilateral nephrostomy tubes in back, draining well. Light yellow urine in both bags. No purulent drainage or erythema around insertion sites. Neurologic: Alert and oriented x3, no gross neurological deficit, and patient able to move all 4 extremities. Extremities: No edema. Skin: No rash or ecchymoses. Discharge Plan Plan Patient Disposition: HOME (Self Care) Patient condition on transfer: Stable Care Plan Goals: -Follow-up with PCP within 1 week of discharge. If you do not have appointment, please follow-up with the [facility] with Dr. Walker. Call [phone] to make an appointment. -Recommended to take Bactram Ds twice daily for 2 more days -Take carvedilol 25mg twice daily, Amlodipine 10mg once daily -Continue to take Wayland 10-325mg as needed for pain every 8 hours -Stop rest of the home medications -Return to ED if symptoms persist or return Prescriptions/Referrals Prescriptions/Med Rec: New amlodipine 5 mg Tablet 10 mg PO QDAY Qty: 30 0RF sulfamethoxazole-trimethoprim [Bactrim DS] 800-160 mg tablet 1 tab PO BID Qty: 4 0RF Continued sennosides [senna] 8.6 mg tablet 8.6 mg PO QDAY PRN (Reason: constipation) Qty: 30 0RF Changed carvedilol 25 mg tablet 25 mg PO BID Qty: 30 0RF Patient Comments: TAKE 1 TABLET BY MOUTH TWICE DAILY WITH MEALS FOR 30 DAYS hydrocodone-acetaminophen 10-325 mg tablet 1 tab PO Q8H MDD hydrocodone 30mg PRN (Reason: pain) 7 Days Qty: 21 0RF Discontinued omeprazole 40 mg capsule,delayed release(DR/EC) 40 mg PO QDAY (DME) pen needle, diabetic [TRUEplus Pen Needle] 31 gauge x 1/4 needle buspirone 10 mg tablet 10 mg PO HS Patient Comments: TAKE 1 TABLET BY MOUTH ONCE DAILY AT BEDTIME (DME) Accu-Chek Guide test strips Strip Patient Comments: USE 1 STRIP TO CHECK GLUCOSE THREE TIMES DAILY (DME) lancets [Accu-Chek Softclix Lancets] Misc Patient Comments: USE 1 TO CHECK GLUCOSE THREE TIMES DAILY insulin lispro 100 unit/mL insulin pen 5 unit SUBCUT TID Patient Comments: INJECT 5 UNITS SUBCUTANEOUSLY THREE TIMES DAILY BEFORE MEALS insulin glargine [Lantus Solostar U-100 Insulin] 100 unit/mL (3 mL) insulin pen 18 unit subcut QPM Qty: 15 0RF insulin lispro [Admelog SoloStar U-100 Insulin] 100 unit/mL insulin pen See Protocol subcut USEASDIRECTD Qty: 15 0RF Protocol: Insulin Corrective High-Dose Regimen Condition: Fingerstick Blood Glucose Dose/Route: Insulin Units Condition: 141-180 mg/dl Dose/Route: 6 units/SQ Condition: 181-220 mg/dl Dose/Route: 8 units/SQ Condition: 221-260 mg/dl Dose/Route: 10 units/SQ Condition: 261-300 mg/dl Dose/Route: 12 units/SQ Condition: 301-350 mg/dl Dose/Route: 14 units/SQ Condition: 351-400 mg/dl Dose/Route: 16 units/SQ Condition: greater than 400 mg/dl Dose/Route: 18 units/SQ (DME) pen needle, diabetic [CareFine Pen Needle] 31 gauge x 1/4 needle See Rx Instructions .Route Qty: 100 0RF Rx Instructions: As directed morphine 15 mg tablet 15 mg PO Q6H MDD 4 PRN (Reason: pain) Qty: 20 0RF ferrous sulfate [FeroSul] 325 mg (65 mg iron) tablet 325 mg PO 1XD amlodipine 10 mg tablet 10 mg PO 1XD cefuroxime axetil 500 mg tablet 500 mg PO 1XD hydralazine 50 mg tablet 50 mg PO 1XD Patient Comments: TAKE 1 TABLET BY MOUTH THREE TIMES DAILY famotidine 20 mg tablet 20 mg PO 1XD Patient Comments: TAKE 1 TABLET BY MOUTH ONCE DAILY FOR 30 DAYS polyethylene glycol 3350 [Miralax] 17 gram/dose powder 4 g PO QDAY Qty: 119 0RF ondansetron 4 mg tablet,disintegrating 4 mg PO Q8H PRN (Reason: nausea and vomiting) Qty: 14 0RF Referrals: Stan Cedillo MD [Primary Care Provider, Family Practice] Patient/Caregiver Discharge Instructions Education Materials: Urinary Tract Infections in Women, Understanding Urinary Tract ..., Kidney Infec Dc, When to Use Antibiotics Print Language: Omani Stand Alone Forms: Nina Award Info., Patient Portal Info Letter Discharge Order Discharge Orders: Discharge (Routine); Ordered 02/19/25 Ordered By: Hi Walker Quality Discharge Quality Measures VTE prophylaxis Attestestation Attestation I have discussed and was present for the essential components of the discharge history, physical examination, diagnosis, and discharge treatment plan with the resident. I agree with the patient's discharge care as documented by the resident and amended herein by me. Rafiq Reynoso, . The patient understood all discharge instructions, all questions were answered satisfactorily. The patient was instructed to return to the Emergency Department is symptoms worsened or persisted. Patient was stable, afebrile, tolerating p.o. intake and ambulatory at time of discharge home. Patient understood all discharge instructions, all questions answered satisfactorily, patient will be sent on a very short course of Bactrim, renal function significantly improved. Although this document has been carefully reviewed, there may still be some phonetic and other typographical errors. These errors are purely grammatical due to imperfections in the software program and should not be construed in any way to compromise the substance of the patient's medical care during this visit.
== END 2025-02-19 14:02 | disposition home or self-care (01) | DRG 466 ==
LOC: SERX 02-14 00:06 → SERHOLD 02-14 01:27 → S3SX 02-14 02:09
PROVIDERS: Admitting Provider Student in an Organized Health Care Education/Training Program; Emergency Provider Emergency Medicine; PCP Family Medicine; Visit Provider Student in an Organized Health Care Education/Training Program
DX: T83.512A Infection and inflammatory reaction due to nephrostomy catheter, initial encounter (principal); K21.9 Gastro-esophageal reflux disease without esophagitis; E83.42 Hypomagnesemia; Z79.4 Long term (current) use of insulin; N30.20 Other chronic cystitis without hematuria; L03.90 Cellulitis, unspecified; Y83.3 Surgical operation with formation of external stoma as the cause of abnormal reaction of the patient, or of later complication, without mention of misadventure at the time of the procedure; N17.9 Acute kidney failure, unspecified; N99.521 Infection of incontinent external stoma of urinary tract; N13.6 Pyonephrosis; D41.4 Neoplasm of uncertain behavior of bladder; R91.8 Other nonspecific abnormal finding of lung field; Z99.2 Dependence on renal dialysis; E11.22 Type 2 diabetes mellitus with diabetic chronic kidney disease; I12.9 Hypertensive chronic kidney disease with stage 1 through stage 4 chronic kidney disease, or unspecified chronic kidney disease; N18.9 Chronic kidney disease, unspecified; N17.0 Acute kidney failure with tubular necrosis; D63.1 Anemia in chronic kidney disease; Z16.24 Resistance to multiple antibiotics; Z79.899 Other long term (current) drug therapy; R45.851 Suicidal ideations; Z87.442 Personal history of urinary calculi; Z98.891 History of uterine scar from previous surgery; N20.0 Calculus of kidney; K62.89 Other specified diseases of anus and rectum; B96.89 Other specified bacterial agents as the cause of diseases classified elsewhere
CPT/HCPCS: 36415; 71045; 74176; 77001; 80053; 80069; 81001; 82248; 83036; 83605; 83735; 83880; 84100; 84145; 84703; 85025; 85610; 85652; 85730; 86140; 86850; 86900; 86901; 87040; 87077; 87081; 87086; 87186; 87400; 87811; 93225; 96127; 96365; 96366; 96375; 96376; 99285; A4649; J0692; J1171; J1450; J1644; J1815; J1885; J2405; J3373; J3475; J3490; J7030; J7050; J7999; A9270

== ENCOUNTER 2025-02-23 20:46 | Emergency (ER) | payer MEDICAID, SELFPAY ==
[2025-02-23 20:46] VITALS: BMI 32.0
[2025-02-23 21:34] VITALS: BP 155/79; PULSE 67; RESP 20; TEMP 37.1; O2SAT 99
--- NOTE | 2025-02-23 21:35 | XR_ITS ---
Examination: Retroperitoneal ultrasound, complete Technique: Multiple high resolution grayscale images of the retroperitoneum obtained, including kidneys and bladder. Exam date and time:February 23, 2025, 2210 hrs. Indications: Bilateral flank pain beginning 3 months ago, bilateral nephrostomy tubes February 13, 2025 Findings: Right kidney 9.4 cm cortex 2.1 cm Left kidney 10.1 cm cortex 1.8 cm Moderate renal scarring Minimal bilateral hydronephrosis Contracted urinary bladder Probable sediment in the urinary bladder but clinical correlation advised and follow-up recommended Impression: Moderate renal scarring No significant hydronephrosis Probable sediment in the urinary bladder but clinical correlation advised and recommend follow-up urinary bladder sonography in one week
--- NOTE | 2025-02-23 21:36 | PD.EDRME ---
Rapid Medical Screening Exam RME Arrival date/time: 02/23/25 20:46 This is a case of 45-year-old female with history of ESRD history of hemodialysis in the past kidney stone on urostomy tube came in in the emergency room due to lower abdominal pain radiating to bilateral flank with nausea vomiting for 3 days worsening of the symptoms this patient decided to sought consult here in the emergency room Chief Complaint: Abdominal Pain Time Seen by Provider: 02/23/25 21:35 Vital signs: Vital Signs Temperature 98.7 F 02/23/25 21:34 Pulse Rate 67 02/23/25 21:34 Respiratory Rate 20 02/23/25 21:34 Blood Pressure 155/79 H 02/23/25 21:34 Pulse Oximetry (%) 99 02/23/25 21:34 Oxygen Delivery Method Room Air 02/23/25 21:34
[2025-02-23 21:59] LABS: Basophils # (Auto) 0.1 Thou/mm3 (0.0-0.2); Basophils % (Auto) 1 % (0-2.5); Eosinophils # (Auto) 0.4 Thou/mm3 (0.0-0.5); Eosinophils % (Auto) 3 % (0-10); Hematocrit 32.3 % (36.0-46.0); Hemoglobin 10.4 g/dL (12.0-16.0); Immature Granulocytes Auto 0.06 Thou/mm3 (0.00-0.00); Lymphocytes # (Auto) 3.0 Thou/mm3 (1.0-4.8); Lymphocytes % (Auto) 26 % (10-50); Mean Corpuscular HGB Conc 32.2 g/dl (31.0-37.0); Mean Corpuscular Hemoglobin 26.5 pg (25.0-35.0); Mean Corpuscular Volume 82 fL (80-100); Monocytes # (Auto) 0.6 Thou/mm3 (0.0-0.8); Monocytes % (Auto) 5 % (0-12); Neutrophils # (Auto) 7.2 Thou/mm3 (1.8-7.7); Neutrophils % (Auto) 64 % (37-80); Nucleated Red Blood Cell # 0.00 Thou/mm3 (0.00-0.00); Nucleated Red Blood Cell % 0 /100 WBC (0); Platelet Count 534 Thou/mm3 (140-440); RDW Standard Deviation 52.5 fL (36.4-46.3); Red Blood Count 3.92 Miln/mm3 (4.00-5.20); White Blood Count 11.2 Thou/mm3 (3.6-11.0)
[2025-02-23 22:18] LABS: Alanine Aminotransferase 16 U/L (10-49); Albumin, Serum 4.3 gm/dL (3.5-5.0); Albumin/Globulin Ratio 1.3 (1.2-2.2); Alkaline Phosphatase 109 U/L (46-116); Anion Gap 10 (7-16); Aspartate Amino Transferase 24 U/L (0-34); BUN/Creatinine Ratio 14 Ratio (12-20); Bilirubin,Total 0.3 mg/dL (0.3-1.2); Blood Urea Nitrogen 21 mg/dL (9-23); Calcium 9.7 mg/dL (8.3-10.6); Calcium (Corrected) 9.7 mg/dL (8.5-10.1); Carbon Dioxide 23.4 mMol/L (20.0-31.0); Chloride 103 mMol/L (98-107); Creatinine (Component) 1.5 mg/dL (0.6-1.3); Estimated Creatinine Clearance 47.7 mL/min (>60); Globulin 3.2 gm/dL (2.3-3.5); Glucose 118 mg/dL (74-106); Lipase 28 U/L (12-53); Osmolality,Calculated 275 (275-295); Potassium 4.7 mMol/L (3.4-5.1); Sodium 136 mMol/L (136-145); Total Protein 7.5 gm/dL (5.7-8.2); eGFR 44 See Note
[2025-02-23 22:33] LABS: Collection Type, Urine Clean Catch; Squamous Epithelial Cell,Urine 0 /hpf (0-5)
[2025-02-23 22:58] LABS: Bacteria,Urine Rare; Bilirubin,Urine Negative (Negative); Blood,Urine Negative (Negative); Clarity,Urine Clear (Clear/Hazy); Color,Urine Colorless (Lt Yel-Yel); Glucose, Urine Negative (Negative); Ketones,Urine Negative (Negative); Leukocyte Esterase,Urine Positive (Negative); Nitrite,Urine Positive (Negative); PH,Urine 6.5 (5.0-7.0); Protein,Urine 2+ (Neg - Trace); RBC,Urine 1 /hpf (0-3); Specific Gravity,Urine 1.007 (1.001-1.035); Urobilinogen,Urine Negative mg/dL (0.0-1.0); WBC,Urine 1 /hpf (0-5)
[2025-02-23 23:00] LABS: HCG Qualitative,Urine Negative
[2025-02-23 23:55] VITALS: BP 182/86; PULSE 86; RESP 16; O2SAT 100
[2025-02-24] MEDS: ONDANSETRON INJ 2 MG/ML INJ 2 ML 4 MG IVP (00:41)
[2025-02-24] MEDS: MORPHINE SULF INJ 4 MG/ML VIAL IVP (00:41)
--- NOTE | 2025-02-24 01:22 | PD.EDABDPN ---
ED Abdominal Pain RME/HPI General Chief Complaint: Abdominal Pain Stated complaint: BILATERAL FLANK PAIN AND LOWER ABD PAIN Time seen by provider: 02/23/25 21:35 Arrival date/time: 02/23/25 20:46 RME / HPI RME / HPI narrative: 02/23/25 20:46 This is a case of 45-year-old female with history of ESRD history of hemodialysis in the past kidney stone on urostomy tube came in in the emergency room due to lower abdominal pain radiating to bilateral flank with nausea vomiting for 3 days worsening of the symptoms this patient decided to sought consult here in the emergency room DR. 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 Patient also had transient renal failure which had reportedly improved and taken off dialysis. Now presenting with R > L flank pain that is unresponsive to NORCO. Reports fever with no chills, but several bouts of emesis over last 48 hours. PMH: Migraine, Hypertension, Renal Disease, Dialysis, Diabetes Mellitus Type 2, Anxiety. PSH: Nephrostomy tube placement. Allergies: Negative. Social: Non-smoker, non-drinker, denies illicit drug abuse. Related Data Previous Rx's ?Medication ?Instructions ?Recorded sennosides 8.6 mg tablet (senna) 8.6 mg PO QDAY PRN constipation 01/10/25 #30 tabs amlodipine 5 mg tablet 10 mg (2 x 5 mg) PO QDAY #30 tabs 02/19/25 carvedilol 25 mg tablet 25 mg PO BID #30 tabs 02/19/25 hydrocodone 10 mg-acetaminophen 1 tab PO Q8H PRN pain 1 week #21 02/19/25 325 mg tablet tabs sulfamethoxazole 800 1 tab PO BID #4 tabs 02/19/25 mg-trimethoprim 160 mg tablet (Bactrim DS) oxycodone-acetaminophen 7.5 mg-325 1 tab PO Q6H PRN pain #10 tabs 02/24/25 mg tablet (Percocet) promethazine 12.5 mg tablet 12.5 mg PO TID PRN nausea and 02/24/25 vomiting #10 tabs Allergies Allergy/AdvReac Type Severity Reaction Status Date / Time No Known Allergies Allergy Verified 02/13/25 20:08 Review of Systems Review of Systems Systems Reviewed: All systems reviewed, normal except as documented Past Medical History Past Medical History NEUROLOGIC: Positive Migraine CARDIAC: Positive Cardiac Disorders and Hypertension GENITOURINARY: Positive Genitourinary Disorders, Renal Disease (BILATERAL NEPHROSTOMY TUBES) and Dialysis (PORT ON THE RIGHT CHEST) REPRODUCTIVE: Positive Previous Pregnancies ENDOCRINE: Positive Diabetes Mellitus Type 2 PSYCHO/SOCIAL: Positive Anxiety OTHER HISTORY: Positive Blood Transfusions, Blood Transfusion Reaction and Cancer Family History FAMILY HISTORY: Positive Family Cardiac Disorders Surgical History SURGICAL: Positive Section ED Exam Narrative Physical exam: GEN. APPEARANCE: The patient is alert awake oriented X-3 in no distress, lying down comfortably, does not look ill/toxic. Patient has good eye contact. Patient is cooperative. VITALS: All vitals were reviewed and the pulse ox is 100% on room air which is normal according to my interpretation. HEENT: Normocephalic, atraumatic. Pupils are equal and reactive. Oral mucosa is moist. Patent Nares NECK: Supple, nontender, no thyromegaly, no meningismus, no JVD, no step offs CHEST: Symmetrical, atraumatic, and with equal expansion , Nontender on palpation no deformity and no crepitus. CARDIOVASCULAR: Heart regular rhythm no murmur or gallop rub or extra beats. LUNGS: Clear to auscultation bilaterally with symmetrical chest rise. No laboring tachypnea or wheezing. No intercostal subcostal retraction. No rales and no rhonchi. ABDOMEN: Soft, flat, BL nephrostomy tubes in place draining clearly, mild TTP left nephrostomy puncture site, no skin erythema warmth or edema, no drainage at the site. There are no abnormal masses palpated. Active and normal bowel sounds. EXTREMITIES: Nontender. No edema. No cyanosis. Patient is able to move all 4 extremities well, with full ROM and good CSM. SKIN: Warm and dry, no jaundice or rashes noted. MUSCULOSKELETAL: No lubar or midline bony tenderness. There is no CVA tenderness. No paraspinal muscle spasm or tenderness. NEURO: Patient is GRAHAM x 4, Cranial nerves II through XII grossly intact. There is no focal neurologic deficits noted. GCS is 15, PNS and RECREATION TEACHER appear grossly intact. PSYCHIATRIC: Patient is in normal mood and affect, cooperative, no SI or HI or hallucinations. Course Quality Measures none Orders Category Date Time Status US renal BI Stat Exams 02/23/25 21:35 Completed CBC Stat Lab 02/23/25 21:46 Completed Comprehensive Metabolic Panel Stat Lab 02/23/25 21:46 Completed HCG Qualitative,Urine Stat Lab 02/23/25 22:20 Completed Lipase Stat Lab 02/23/25 21:46 Completed Urinalysis Stat Lab 02/23/25 22:20 Completed Morphine* Inj Med 02/24/25 00:32 Discontinued 4 mg IVP X1 ONE Ondansetron Inj [Zofran Inj] Med 02/24/25 00:32 Discontinued 4 mg IVP X1 ONE Sodium Chloride 0.9% 1000 ml [Ns] 1,000 ml Med 02/24/25 01:31 Discontinued IV 999 mls/hr Tmp/Smx 160-800/mg/10 ml Inj [Septra Inj] 10 ml Med 02/24/25 01:36 Discontinued Dextrose 5%-Water [D5w] 250 ml IV X1 Trimethoprim/Sulfa 160/800 Ds [Bactrim Ds] Med 02/24/25 01:42 Discontinued 1 tab PO X1 ONE Vital Signs Vital signs: Vital Signs Temperature 98.7 F 02/23/25 21:34 Pulse Rate 67 02/23/25 21:34 Respiratory Rate 20 02/23/25 21:34 Blood Pressure 155/79 H 02/23/25 21:34 Pulse Oximetry (%) 99 02/23/25 21:34 Oxygen Delivery Method Room Air 02/23/25 21:34 Abdominal Pain MDM MDM Narrative MDM Narrative:: Scribe Attestation: Essie Garibay, yasmin scribing for and in the presence of Dr. Mg. Provider Notation: Although this document has been carefully reviewed, there may still be some phonetic and other typographical errors. These errors are purely grammatical due to imperfections in the software program and should not be construed in any way to compromise the substance of the patient's medical care during this visit. 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 Patient also had transient renal failure which had reportedly improved and taken off dialysis. Please see PE findings. Laboratory markers demonstrate slightlyl elevated WBC of 11.2, stable anemia, platelets increased to 534, no left shift or associated bandemia. Serum chemistries demonstrate stable moderate renal insufficiency. UA overall improved and although with persistent positive leakocyte esterase reaction, no sign of pyuria. HCG is negative. Patient was hydrated with NS, treated with low-dose narcotic analgesics/anti-emetic with subjective mild to moderate improvement. Records indicate patient has maltophilia resistance, although sensitive to Bactrim. 1 dose of Bactrim administered, no underlying sepsis. Patient is considered stable for discharge after time of observation. Recommended F/U with AUTOMOBILE TESTER/ONC. Patient data External records reviewed:: [facility] previous records (Reviewed prior ED records from 02/13/25. Patient was seen for SAPPHIRE (acute kidney injury).) Clinical information provided by:: patient Social determinants that could affect healthcare access:: substance use (Marijuana) Patient has the following chronic illnesses:: Migraine, Hypertension, Renal Disease, Dialysis, Diabetes Mellitus Type 2, Anxiety How is presenting disease/condition affected by chronic disease/condition?: exacerbated by Evaluation data The following diagnostics were reviewed and interpreted by me:: lab results and radiology exam(s) Lab and/or radiology exams considered but not ordered:: None Interpretation Summary: RADIOLOGY Renal US: Findings: Right kidney 9.4 cm cortex 2.1 cm Left kidney 10.1 cm cortex 1.8 cm Moderate renal scarring Minimal bilateral hydronephrosis Contracted urinary bladder Probable sediment in the urinary bladder but clinical correlation advised and follow-up recommended Impression: Moderate renal scarring No significant hydronephrosis Probable sediment in the urinary bladder but clinical correlation advised and recommend follow-up urinary bladder sonography in one week Medications / Prescriptions Medications or Prescriptions considered but not ordered:: None Medication administrations:: Medication Administration History Discontinued Medications Sodium Chloride (Ns) 1,000 mls @ 999 mls/hr IV .Q1H1M ONE Stop: 02/24/25 02:31 Last Infusion: 02/24/25 02:31 Dose: Infused Documented By: Admin: 02/24/25 01:38 Dose: 999 mls/hr Documented By: LISS Trimethoprim/Sulfamethoxazole (10 ml/ Dextrose) 260 mls @ 167 mls/hr IV X1 ONE Stop: 02/24/25 03:09 Last Admin: 02/24/25 01:43 Dose: Not Given Documented By: CVL Non-Admin Reason: Cancelled by Provider Morphine Sulfate (Morphine Sulf Inj 4 Mg/Ml Vial) 4 mg IVP X1 ONE Stop: 02/24/25 00:33 Last Admin: 02/24/25 00:41 Dose: 4 mg Documented By: EF Ondansetron HCl (Ondansetron Inj 2 Mg/Ml Inj 2 Ml) 4 mg IVP X1 ONE; Protocol Stop: 02/24/25 00:33 Last Admin: 02/24/25 00:41 Dose: 4 mg Documented By: EF Trimethoprim/Sulfamethoxazole (Trimethoprim/Sulfa 160/800 Ds Tablet) 1 tab PO X1 ONE Stop: 02/24/25 01:43 Last Admin: 02/24/25 01:55 Dose: 1 tab Documented By: CVL See above if any Consultations Consultation(s) initiated? (list below): No Diagnosis Differential diagnosis abdominal pain: abdominal pain, calculus of kidney, diverticulitis, endometriosis and other (Pyelonepthritis) Most likely diagnosis given after review of the tests above:: Obstructive uropathy, Chronic Flank pain Admission Indicated Admission indicated?: not indicated Explain why admission is indicated or not indicated:: Patient does not meet admission criteria Admission Request Was there a request for admission?: No Disposition Plan Disposition Plan: Discharge Discharge Attestation Discharge Attestation: The patient and all family members were given an opportunity to ask questions and understood the discharge instructions. Discharge instructions specifically effects, indications for sooner follow up or return to the emergency department, and the expected course of current diagnosis. Patient condition: Stable Discharge Plan Plan Patient Disposition: HOME (Self Care) Prescriptions/Referrals Prescriptions/Med Rec: New oxycodone-acetaminophen [Percocet] 7.5-325 mg tablet 1 tab PO Q6H MDD 3 tab PRN (Reason: pain) Qty: 10 0RF promethazine 12.5 mg tablet 12.5 mg PO TID PRN (Reason: nausea and vomiting) Qty: 10 0RF No Action amlodipine 5 mg Tablet 10 mg PO QDAY Qty: 30 0RF carvedilol 25 mg tablet 25 mg PO BID Qty: 30 0RF Patient Comments: TAKE 1 TABLET BY MOUTH TWICE DAILY WITH MEALS FOR 30 DAYS sulfamethoxazole-trimethoprim [Bactrim DS] 800-160 mg tablet 1 tab PO BID Qty: 4 0RF hydrocodone-acetaminophen 10-325 mg tablet 1 tab PO Q8H MDD hydrocodone 30mg PRN (Reason: pain) 7 Days Qty: 21 0RF sennosides [senna] 8.6 mg tablet 8.6 mg PO QDAY PRN (Reason: constipation) Qty: 30 0RF Referrals: Stan Cedillo MD [Primary Care Provider, Family Practice] - In 1 week Problem List Clinical Impression: Chronic flank pain, Obstructive uropathy Patient/Caregiver Discharge Instructions Discharge Activity: activity as tolerated Diet Instructions: Force fluids. Education Materials: ED Flank Pain, Uncertain Cause Additional Instructions: Will prescribe additional 5 days of Bactrim and provide several Percocet tablets. Return for fever persistent vomiting or general worse condition. Print Language: Icelandic Stand Alone Forms: Nina Award Info., Patient Portal Info Letter
[2025-02-24] MEDS: SODIUM CHLORIDE 0.9% 1000 ML 1,000 ML 999 ML IV (01:38)
[2025-02-24] MEDS: TRIMETHOPRIM/SULFA 160/800 DS TABLET 1 TAB PO (01:55)
[2025-02-24 02:06] VITALS: BP 174/78; PULSE 76; RESP 19; TEMP 36; O2SAT 100
[2025-02-24 02:35] VITALS: BP 174/78; PULSE 77; RESP 19; O2SAT 100
== END 2025-02-24 02:36 | disposition home or self-care (01) ==
PROVIDERS: Nurse Practitioner Family; Emergency Provider Emergency Medicine; PCP Family Medicine
DX: N13.9 Obstructive and reflux uropathy, unspecified (principal); G89.29 Other chronic pain; Z93.6 Other artificial openings of urinary tract status
CPT/HCPCS: 36415; 76770; 80053; 81001; 81025; 83690; 85025; 96361; 96374; 96375; 99283; J2270; J2405; J7030; A9270

== ENCOUNTER 2025-02-27 01:07 | Emergency (ER) | payer MEDICAID, SELFPAY ==
[2025-02-27 01:08] VITALS: BMI 30.9
[2025-02-27 01:34] VITALS: BP 162/80; PULSE 65; RESP 17; TEMP 36.7; O2SAT 100
--- NOTE | 2025-02-27 02:13 | PD.EDSKIN ---
ED Skin Abcess FB-RME/HPI General Chief complaint: General Adult/Misc Complain Stated complaint: RECTAL PAIN Time Seen by Provider: 02/27/25 02:06 Arrival date/time: 02/27/25 01:07 44F with history of DM, HTN, ESRD presents to ED with 1 day of rectal pain. Some constipation. Limitations: no limitations Related Data Previous Rx's ?Medication ?Instructions ?Recorded sennosides 8.6 mg tablet (senna) 8.6 mg PO QDAY PRN constipation 01/10/25 #30 tabs amlodipine 5 mg tablet 10 mg (2 x 5 mg) PO QDAY #30 tabs 02/19/25 carvedilol 25 mg tablet 25 mg PO BID #30 tabs 02/19/25 hydrocodone 10 mg-acetaminophen 1 tab PO Q8H PRN pain 1 week #21 02/19/25 325 mg tablet tabs sulfamethoxazole 800 1 tab PO BID #4 tabs 02/19/25 mg-trimethoprim 160 mg tablet (Bactrim DS) oxycodone-acetaminophen 7.5 mg-325 1 tab PO Q6H PRN pain #10 tabs 02/24/25 mg tablet (Percocet) promethazine 12.5 mg tablet 12.5 mg PO TID PRN nausea and 02/24/25 vomiting #10 tabs hydrocortisone 2.5 % topical cream 1 applic NV QDAY PRN hemorrhoids 02/27/25 with perineal applicator #30 grams (Anusol-HC) lidocaine 5 % topical ointment 1 applic topical BID PRN pain #30 02/27/25 grams Allergies Allergy/AdvReac Type Severity Reaction Status Date / Time No Known Allergies Allergy Verified 02/27/25 01:10 Review of Systems Review of Systems Systems Reviewed: All systems reviewed, normal except as documented Gastrointestinal Gastrointestinal: Reports as per HPI and Reports other (rectal pain) Past Medical History Past Medical History NEUROLOGIC: Positive Migraine; Negative Neurological Disorders, Cerebrovascular Accident, Transient Ischemic Attacks (TIA) or Seizures CARDIAC: Positive Cardiac Disorders and Hypertension; Negative Myocardial Infarction, Hypercholesterolemia or Congestive Heart Failure RESPIRATORY: Negative Chronic Obstructive Pulmonary Disease (COPD) or Asthma GASTROINTESTINAL: Negative Gastrointestinal Disorders, Hepatitis, Gastrointestinal Bleed, Colorectal Cancer, Hemorrhoids or Gastroesophageal Reflux Disease GENITOURINARY: Positive Genitourinary Disorders, Renal Disease (BILATERAL NEPHROSTOMY TUBES) and Dialysis (PORT ON THE RIGHT CHEST); Negative Kidney Stones or Prostate Cancer REPRODUCTIVE: Positive Previous Pregnancies; Negative Breast Cancer, Pelvic Inflammatory Disease or Testicular Cancer MUSCULOSKELETAL: Negative Musculoskeletal Disorders, Bone Cancer or Arthritis ENDOCRINE: Positive Diabetes Mellitus Type 2; Negative Endocrine Disorders, Diabetes Mellitus Type 1, Hyperthyroidism or Hypothyroidism HEMATOLOGIC: Negative Blood Disorders, Anemia or Sickle Cell Disease PSYCHO/SOCIAL: Positive Anxiety; Negative Recreational Drug Use or Depression OTHER HISTORY: Positive Blood Transfusions, Blood Transfusion Reaction and Cancer; Negative Autoimmune Disease, Anesthesia Reactions, Organ Transplant, Chemotherapy, Radiation Therapy, Hyperbaric Therapy, MRSA, VRSA, Vancomycin-Resistant Enterococci, Human Immunodeficiency Virus (HIV), Chicken Pox, Measles, Mumps, Rubella ([place] Measles), Pertussis, Clostridium Difficile, Breast Cancer, Cervical Cancer, Colorectal Cancer, Lung Cancer, Ovarian Cancer, Prostate Cancer or Testicular Cancer Family History FAMILY HISTORY: Positive Family Cardiac Disorders; Negative Family Psychiatric Problems, Family Respiratory Disorders, Family Gastrointestinal Problems, Family Cancer, Family Surgery or Family Anesthesia Reaction Surgical History SURGICAL: Positive Section; Negative Organ Transplant Social History SMOKING STATUS: Never smoker SUBSTANCE USE: does not use ED Exam General Limitations: Present no limitations General appearance: Present alert and anxious (crying) Head Head exam: Present atraumatic Neck Neck exam: Present normal inspection, full ROM and trachea midline Chest Chest inspection: Present normal inspection and symmetric chest wall rise Rectal Exam Rectal exam: Present hemorrhoids Neurological Exam Neurological exam: Present alert and oriented X3 Psychiatric Psychiatric exam: Present normal affect and anxious (crying) Skin Skin exam: Present warm, dry, intact and normal color Course Quality Measures none Vital Signs Vital signs: Vital Signs Temperature 98.1 F 02/27/25 01:34 Pulse Rate 65 02/27/25 01:34 Respiratory Rate 17 02/27/25 01:34 Blood Pressure 162/80 H 02/27/25 01:34 Pulse Oximetry (%) 100 02/27/25 01:34 Oxygen Delivery Method Room Air 02/27/25 01:34 O2 at 100% on RA and WNLs Skin / Abscess / Foreign Body MDM Narrative MDM Narrative:: 44F with history of DM, HTN, ESRD presents to ED with 1 day of rectal pain. Some constipation. Physical exam with manager statistical Teresita LEE reveals external non-thrombosed hemorrhoid. Patient declines internal exam. Patient is afebrile, alert, but crying/anxious. 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 Patient data External records reviewed:: [facility] previous records Clinical information provided by:: patient Social determinants that could affect healthcare access:: none Patient has the following chronic illnesses:: DM, HTN, ESRD How is presenting disease/condition affected by chronic disease/condition?: uneffected by Evaluation data The following diagnostics were reviewed and interpreted by me:: other (specify) (none) Lab and/or radiology exams considered but not ordered:: not ordered Interpretation Summary: n/a Medications / Prescriptions Medications or Prescriptions considered but not ordered:: not ordered Medication administrations:: n/a Consultations Consultation(s) initiated? (list below): No Diagnosis Skin/Abscess Differential Diagnosis: abscess of skin or subcutaneous tissue, viral exanthem, dermatophytosis, urticaria, herpes zoster, allergic reaction to drug, cellulitis, eczema, insect bites, impetigo, contact dermatitis and other (hemorrhoids) Most likely diagnosis given after review of the tests above:: hemorrhoids Admission Indicated Admission indicated?: not indicated Admission Request Was there a request for admission?: No Disposition Plan Disposition Plan: Discharge Discharge Attestation Discharge Attestation: The patient and all family members were given an opportunity to ask questions and understood the discharge instructions. Discharge instructions specifically effects, indications for sooner follow up or return to the emergency department, and the expected course of current diagnosis. Patient condition: Stable Discharge Plan Plan Patient Disposition: HOME (Self Care) Discharge Disposition comment: Stable Prescriptions/Referrals Prescriptions/Med Rec: New hydrocortisone [Anusol-HC] 2.5 % cream with perineal applicator 1 applic NV QDAY PRN (Reason: hemorrhoids) Qty: 30 0RF lidocaine 5 % ointment 1 applic topical BID PRN (Reason: pain) Qty: 30 0RF Rx Instructions: Use 10-15 min prior to wanting to have BM No Action amlodipine 5 mg Tablet 10 mg PO QDAY Qty: 30 0RF carvedilol 25 mg tablet 25 mg PO BID Qty: 30 0RF Patient Comments: TAKE 1 TABLET BY MOUTH TWICE DAILY WITH MEALS FOR 30 DAYS sulfamethoxazole-trimethoprim [Bactrim DS] 800-160 mg tablet 1 tab PO BID Qty: 4 0RF hydrocodone-acetaminophen 10-325 mg tablet 1 tab PO Q8H MDD hydrocodone 30mg PRN (Reason: pain) 7 Days Qty: 21 0RF oxycodone-acetaminophen [Percocet] 7.5-325 mg tablet 1 tab PO Q6H MDD 3 tab PRN (Reason: pain) Qty: 10 0RF promethazine 12.5 mg tablet 12.5 mg PO TID PRN (Reason: nausea and vomiting) Qty: 10 0RF sennosides [senna] 8.6 mg tablet 8.6 mg PO QDAY PRN (Reason: constipation) Qty: 30 0RF Problem List Clinical Impression: Hemorrhoid Patient/Caregiver Discharge Instructions Education Materials: ED Hemorrhoids Additional Instructions: Please follow-up with PCP within 24-48 hours and return immediately if symptoms worsen. Print Language: Belarusian Stand Alone Forms: Patient Portal Info Letter MUSTAPHA/MCKENNA Supervising Physician MUSTAPHA/MCKENNA Supervising Physician: Dr. Pantoja
== END 2025-02-27 02:21 | disposition home or self-care (01) ==
LOC: SERX 04:04
PROVIDERS: Emergency Provider Emergency Medicine; PCP Family Medicine
DX: K64.4 Residual hemorrhoidal skin tags (principal); I12.0 Hypertensive chronic kidney disease with stage 5 chronic kidney disease or end stage renal disease; E11.22 Type 2 diabetes mellitus with diabetic chronic kidney disease; N18.6 End stage renal disease
CPT/HCPCS: 99281

== ENCOUNTER 2025-03-04 09:21 | Emergency (ER) | payer MEDICAID, SELFPAY ==
[2025-03-04] VITALS (7 sets, daily range): BP systolic 145–180; BP diastolic 60–98; PULSE 17–91; RESP 16–22; TEMP 36.8–36.9; O2SAT 96–100; BMI 29.8
--- NOTE | 2025-03-04 09:35 | EDNOTE_ITS ---
<Statement entered by Eulalia Johnson MD - 03/18/25 14:15> I, Eulalia Johnson MD, have reviewed the history, exam, and assessment of the patient. I have evaluated the patient independently and agree with the plan of care documented by [ ]. All diagnostic studies were reviewed and discussed. I confirm the diagnosis as documented by the Resident. I was present during the Medical Decision Making for this patient. The patient's plan of care was created between myself and the Resident and consistent with our discussion of the patient's case. ED General RME/HPI General Chief complaint: Abdominal Pain Stated complaint: RECTAL PAIN Time Seen by Provider: 03/04/25 09:36 Arrival date/time: 03/04/25 09:21 RME / HPI RME / HPI narrative: 44 y/o female with PMHx HTN, ID-T2DM, GERD, hx valley fever, non-malignant bladder mass (biopsed by Dr. 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 Pineda (started 01/06/2025) comes in for an evaluation of rectal pain, rated 10 out of 10, worsening. Patient reports that she came to the ER a couple of days ago for evaluation of rectal pain, however did not have an internal rectal exam and was discharged with some pain medicines. This time she says that her pain is out of proportion, and would like to do an internal rectal exam after being given pain medicines. She denies any other symptoms of chest pain, shortness of breath, nausea, vomiting, diarrhea. She says her negative restorer is Dr. Pineda. She did say that she was recently admitted at a hospital in [place] which she had extensive workup including scans for her pain however they were not able to find anything at that time. She says she is currently going to follow up with another urologist on Mar 10 for further evaluation of her bladder mass that was biopsed by Dr. Friedman. She currently does not make any urine as she has bilat nephrostomy tubes. No other complaints at this time. Related Data Previous Rx's ?Medication ?Instructions ?Recorded sennosides 8.6 mg tablet (senna) 8.6 mg PO QDAY PRN co nstipation 01/10/25 #30 tabs amlodipine 5 mg tablet 10 mg (2 x 5 mg) PO QDAY #30 tabs 02/19/25 carvedilol 25 mg tablet 25 mg PO BID #30 tabs hydrocodone 10 mg-acetaminophen 1 tab PO Q8H PRN pain 1 week #21 02/19/25 325 mg tablet tabs sulfamethoxazole 800 1 tab PO BID #4 tabs 02/19/ 5 mg-trimethoprim 160 mg tablet (Bactrim DS) oxycodone-acetaminophen 7.5 mg-325 1 tab PO Q6H PRN pa in #10 tabs 02/24/25 mg tablet (Percocet) promethazine 12.5 mg tablet 12.5 mg PO TID PRN nausea and 02/24/25 vomiting #10 tabs hydrocortisone 2.5 % topical cream 1 applic WA QDAY WA N hemorrhoids 02/27/25 with perineal applicator #30 grams (Anusol-HC) lidocaine 5 % topical ointment 1 applic topical BID WA N pain #30 02/27/25 grams docusate sodium 100 mg capsule 100 mg PO QDAY PRN cons tipation 1 03/04/25 (Colace) week #7 caps Allergies Allergy/AdvReac Type Severity Reaction Status Date / Time No Known Allergies Allergy Verified 03/04/25 09:24 Review of Systems Review of Systems Narrative Review of Systems: 12 point ROS reviewed and is otherwise negative unless stated directly in the HPI ED Exam Narrative Physical exam: General: AAOx3, in acute distress, she is currently crying as we speak HEENT: Moist mucous membranes, conjunctiva clear, EOMI, PERRLA, Cardiovascular: S1, S2, radial pulses +2 bilat, RRR Pulmonary: CTAB bilat no cough, no wheezing GI: No tenderness to light or deep palpitation, no guarding, rigidity, rebound tenderness or distension , KAVEH perforemd, no anal fissue appreciated, no external or internal hemorrhoid appreciated : Bilat nephrostomy tubes Extremities: No presence of trace or pitting edema in lower extremities bilaterally, dorsalis pedis pulses +2 bilaterally Neuro: AAOx3, no focal motor or sensory deficits in the UE or LE bilat Psych: Good judgement, thought and behavior Course Quality Measures none Orders Category Date Time Status Bedside COVID-19 Antigen Test NOW Care 03/04/25 09:43 Active EKG (ED ONLY) *Do not use* NOW Care 03/04/25 09:43 Completed Insert IV NOW Care 03/04/25 09:43 Active EKG (ED Only) Stat Exams 03/04/25 09:43 Draft XR abdomen 1V Stat Exams 03/04/25 10:42 Completed CBC Stat Lab 03/04/25 09:55 Completed CMP [Comprehensive Metabolic Panel] Stat Lab 03/04/25 09:55 Completed Influenza A & B Rapid Panel Stat Lab 03/04/25 14:22 Received Lactic Acid [Lactate (Lactic Acid)] Stat Lab 03/04/25 09:55 Completed Mag [Magnesium] Stat Lab 03/04/25 09:55 Completed Procalcitonin Stat Lab 03/04/25 09:55 Completed Troponin I Stat Lab 03/04/25 09:55 Completed Urinalysis, C/S if Indicated Stat Lab 03/04/25 14:06 Received Diazepam Inj [Valium Inj] Med 03/04/25 10:02 Discontinued 10 mg IVP X1 ONE HYDROmorphone INJ [Dilaudid Inj] Med 03/04/25 09:42 Discontinued 1 mg IVP X1 ONE Lidocaine 2% Viscous [Xylocaine 2% Viscous] Med 03/04/25 09:42 Discontinued 15 ml PO X1 ONE hydrALAZINE INJ [Apresoline Inj] Med 03/04/25 12:47 Discontinued 10 mg IVP X1 ONE Vital Signs Vital signs: Vital Signs Temperature 98.3 F 03/04/25 09:28 Pulse Rate 91 03/04/25 09:28 Respiratory Rate 22 H 03/04/25 09:28 Blood Pressure 176/81 H 03/04/25 09:28 Pulse Oximetry (%) 99 03/04/25 09:28 Oxygen Delivery Method Room Air 03/04/25 09:28 Discharge Plan Plan Patient Disposition: HOME (Self Care) Patient condition on transfer: Stable Prescriptions/Referrals Prescriptions/Med Rec: New docusate sodium [Colace] 100 mg capsule 100 mg PO QDAY PRN (Reason: constipation) 7 Days Qty: 7 0RF Rx Instructions: Take one capsule by mouth every day No Action amlodipine 5 mg Tablet 10 mg PO QDAY Qty: 30 0RF carvedilol 25 mg tablet 25 mg PO BID Qty: 30 0RF Patient Comments: TAKE 1 TABLET BY MOUTH TWICE DAILY WITH MEALS FOR 30 DAYS sulfamethoxazole-trimethoprim [Bactrim DS] 800-160 mg tablet 1 tab PO BID Qty: 4 0RF hydrocodone-acetaminophen 10-325 mg tablet 1 tab PO Q8H MDD hydrocodone 30mg PRN (Reason: pain) 7 Days Qty: 21 0RF oxycodone-acetaminophen [Percocet] 7.5-325 mg tablet 1 tab PO Q6H MDD 3 tab PRN (Reason: pain) Qty: 10 0RF promethazine 12.5 mg tablet 12.5 mg PO TID PRN (Reason: nausea and vomiting) Qty: 10 0RF sennosides [senna] 8.6 mg tablet 8.6 mg PO QDAY PRN (Reason: constipation) Qty: 30 0RF hydrocortisone [Anusol-HC] 2.5 % cream with perineal applicator 1 applic WA QDAY PRN (Reason: hemorrhoids) Qty: 30 0RF lidocaine 5 % ointment 1 applic topical BID PRN (Reason: pain) Qty: 30 0RF Rx Instructions: Use 10-15 min prior to wanting to have BM Referrals: Stan Cedillo MD [Primary Care Provider, Family Practice] - In 1 week Problem List Clinical Impression: Rectal tenesmus Patient/Caregiver Discharge Instructions Discharge Activity: activity as tolerated Additional Instructions: Discharge instructions Follow-up with your PCP within 1 week Speak with your PCP in regards to refering you to a GI doctor for further workup of your rectal pain. Follow up with your urologist for further workup and management of your bladder mass Limit narcotic pain medicines as this can worsen constipation Take your medicines as prescribed Return to ED if your symptoms worsen or return Print Language: Tuvaluan Stand Alone Forms: Nina Award Info., Patient Portal Info Letter MDM Narrative MDM hospital course (for use when minimal MDM required): 0946: IV Dilaudid, ordered viscous lidocaine. Will perform KAVEH once patient's pain improves. Ordered basic labs. 1045: KAVEH performed, did not visualize hemorrhoids (internal or external) or anal fissue. FOBT negative. 1442: Pt was given hydralazine as SBP was elevated and has improved. Pt's pain has improved as well. Abdominal plain film shows moderate stool burden. Pt recommended to follow up with Urology in further workup/management of bladder mass. Pt also to speak with their PCP in regards to seeing a GI doctor for further management of rectal tenesmus. EKG Interpretation EKG #1: EKG Interpretation: Sinus rhythm, heart rate 92, QT 365, no ST changes, low QRS voltage Medication Administration(s) Medication Administration History Discontinued Medications Diazepam (Diazepam Inj 5 Mg/Ml Vial 2 Ml) 10 mg IVP X1 ONE Stop: 03/04/25 10:03 Last Admin: 03/04/25 10:19 Dose: 10 mg Documented By: ED Hydralazine HCl (Hydralazine Inj 20 Mg/Ml Vial) 10 mg IVP X1 ONE Stop: 03/04/25 12:48 Last Admin: 03/04/25 13:21 Dose: 10 mg Documented By: ED Hydromorphone HCl (Hydromorphone Inj 2 Mg/Ml Vial) 1 mg IVP X1 ONE Stop: 03/04/25 09:43 Last Admin: 03/04/25 10:16 Dose: 1 mg Documented By: ED Lidocaine HCl (Lidocaine Viscous 2% 15 Ml Udc) 15 ml PO X1 ONE Stop: 03/04/25 09:43 Last Admin: 03/04/25 10:33 Dose: 15 ml Documented By: ED Comments: used by Dr. Godinez when he did rectal exam. Diagnosis Diagnoses ruled out and/or further discussions: Thrombosed hemorrhoid, anal fissure
--- NOTE | 2025-03-04 09:43 | EKG_ITS ---
[facility] Test Date: 2025-03-04 Pat Name: KRZYSZTOF LIN Department: Room: - Gender: Female Home Help Aide: : 1980 Requested By: Apurva Godinez Order Number: [id number] Reading MD: Apurva Godinez Measurements Intervals [place] Rate: 92 P: 16 UT: 148 QRS: -19 QRSD: 91 T: 1 QT: 365 QTc: 452 Interpretive Statements SINUS RHYTHM LOW QRS VOLTAGE IN PRECORDIAL LEADS [QRS DEFLECTION < 1.0 mV IN CHEST LEADS] POSSIBLE ANTERIOR MYOCARDIAL INFARCTION , OF INDETERMINATE AGE [30 ms Q WAVE IN V3/V4, OR R < 0.2 mV IN V4] Compared to ECG 12/10/2024 17:10:43 Low QRS voltage now present Myocardial infarct finding still present /store/S0/[id number].pdf
--- NOTE | 2025-03-04 09:50 | PC.NURSE ---
Pt. here from home to room 3, pt. states she is here because of rectal pain X 5 days, pt. denies any bleeding in her stool, pt. has bilateral nephrosotomy tubes, pt. states tubes are draining and intact pt. denies any issues with nephrostomy tubes. Pt. states she was just discharged from the hospital in [place], pt. states she stayed there for 4 days, pt. states they did CT scans and just tried to keep her pain under control. Pt. states they didn't find anything wrong with her in [place]. Pt. states at home last night she couldn't stand the rectum pain. Pt. states she has had vaginal bleeding since March of last year. Pt. has a roman pad on today with minimal bleeding noted on pad.
[2025-03-04 10:12] LABS: Lactate (Lactic Acid) 1.3 mMol/L (0.4-2.0)
[2025-03-04] MEDS: HYDROmorphone INJ 2 MG/ML VIAL 1 MG IVP ×2 (10:16→16:28)
[2025-03-04 10:17] LABS: Basophils # (Auto) 0.1 Thou/mm3 (0.0-0.2); Basophils % (Auto) 1 % (0-2.5); Eosinophils # (Auto) 0.3 Thou/mm3 (0.0-0.5); Eosinophils % (Auto) 3 % (0-10); Hematocrit 30.5 % (36.0-46.0); Hemoglobin 10.2 g/dL (12.0-16.0); Immature Granulocytes Auto 0.03 Thou/mm3 (0.00-0.00); Lymphocytes # (Auto) 2.0 Thou/mm3 (1.0-4.8); Lymphocytes % (Auto) 18 % (10-50); Mean Corpuscular HGB Conc 33.4 g/dl (31.0-37.0); Mean Corpuscular Hemoglobin 26.9 pg (25.0-35.0); Mean Corpuscular Volume 81 fL (80-100); Monocytes # (Auto) 0.5 Thou/mm3 (0.0-0.8); Monocytes % (Auto) 5 % (0-12); Neutrophils # (Auto) 8.1 Thou/mm3 (1.8-7.7); Neutrophils % (Auto) 74 % (37-80); Nucleated Red Blood Cell # 0.00 Thou/mm3 (0.00-0.00); Nucleated Red Blood Cell % 0 /100 WBC (0); Platelet Count 410 Thou/mm3 (140-440); RDW Standard Deviation 49.1 fL (36.4-46.3); Red Blood Count 3.79 Miln/mm3 (4.00-5.20); White Blood Count 11.0 Thou/mm3 (3.6-11.0)
[2025-03-04] MEDS: DIAZEPAM INJ 5 MG/ML VIAL 2 ML 10 MG IVP (10:19)
[2025-03-04] MEDS: LIDOCAINE VISCOUS 2% 15 ML UDC PO (10:33)
--- NOTE | 2025-03-04 10:33 | PC.NURSE ---
Dr. Godinez bedside doing rectal exam and testing for occult blood. Pt. denies rectal bleeding but states she is having vaginal bleeding since March of last year. Occult is negative.
--- NOTE | 2025-03-04 10:42 | XR_ITS ---
Examination: Abdomen AP single view Technique: AP portable supine abdomen, single view Exam date and time: March 04, 2025, 12 0 6:00 p.m. INDICATIONS: Bilateral abdominal pain rectal pain 5 days, history nephrostomy drainage tubes FINDINGS: Bilateral nephrostomy tube satisfactory position Moderate stool throughout the colon. No obstruction. No free air IMPRESSION: Bilateral gastrostomy tubes satisfactory position
[2025-03-04 10:43] LABS: Alanine Aminotransferase 37 U/L (10-49); Albumin, Serum 4.2 gm/dL (3.5-5.0); Albumin/Globulin Ratio 1.4 (1.2-2.2); Alkaline Phosphatase 123 U/L (46-116); Anion Gap 11 (7-16); Aspartate Amino Transferase 37 U/L (0-34); BUN/Creatinine Ratio 8 Ratio (12-20); Bilirubin,Total 0.4 mg/dL (0.3-1.2); Blood Urea Nitrogen 10 mg/dL (9-23); Calcium 9.0 mg/dL (8.3-10.6); Calcium (Corrected) 9.0 mg/dL (8.5-10.1); Carbon Dioxide 22.4 mMol/L (20.0-31.0); Chloride 102 mMol/L (98-107); Creatinine (Component) 1.3 mg/dL (0.6-1.3); Estimated Creatinine Clearance 53.1 mL/min (>60); Globulin 3.0 gm/dL (2.3-3.5); Glucose 266 mg/dL (74-106); Magnesium 1.8 mg/dL (1.6-2.6); Osmolality,Calculated 278 (275-295); Potassium 3.9 mMol/L (3.4-5.1); Procalcitonin 0.12 ng/ml (0.0-0.49); Sodium 135 mMol/L (136-145); Total Protein 7.2 gm/dL (5.7-8.2); Troponin I < 0.002 ng/mL (0.0-0.045); eGFR 53 See Note
[2025-03-04] MEDS: hydrALAZINE INJ 20 MG/ML VIAL 10 MG IVP (13:21)
[2025-03-04 14:44] LABS: Collection Type, Urine Catheter; Squamous Epithelial Cell,Urine 0 /hpf (0-5)
[2025-03-04 15:04] LABS: Bacteria,Urine Rare; Bilirubin,Urine Negative (Negative); Blood,Urine Negative (Negative); Clarity,Urine Clear (Clear/Hazy); Color,Urine Colorless (Lt Yel-Yel); Culture Indicated,Urine Not Indicated; Glucose, Urine 1+ (Negative); Ketones,Urine Negative (Negative); Leukocyte Esterase,Urine Negative (Negative); Nitrite,Urine Negative (Negative); PH,Urine 7.5 (5.0-7.0); Protein,Urine 1+ (Neg - Trace); RBC,Urine 2 /hpf (0-3); Specific Gravity,Urine 1.007 (1.001-1.035); Urobilinogen,Urine Negative mg/dL (0.0-1.0); WBC,Urine < 1 /hpf (0-5)
[2025-03-04 15:05] LABS: Influenza A Ag Negative; Influenza B Ag Negative
== END 2025-03-04 16:57 | disposition home or self-care (01) ==
PROVIDERS: Emergency Provider Emergency Medicine; PCP Family Medicine
DX: R19.8 Other specified symptoms and signs involving the digestive system and abdomen (principal); R94.31 Abnormal electrocardiogram [ECG] [EKG]
CPT/HCPCS: 36415; 74018; 80053; 81001; 83605; 83735; 84145; 84484; 85025; 87502; 87811; 93005; 96374; 96375; 96376; 99284; J0360; J1171; J3360; J3490

== ENCOUNTER 2025-03-08 02:11 | Emergency (ER) | payer MEDICAID, SELFPAY ==
[2025-03-08 02:12] VITALS: BMI 29.2
[2025-03-08 02:23] VITALS: BP 185/95; BP 188/100; PULSE 89; RESP 20; TEMP 36.6; O2SAT 98
[2025-03-08] MEDS: HYDROcodone/APAP 5/325 TABLET 1 TAB PO (02:53)
--- NOTE | 2025-03-08 02:55 | PD.EDADULT ---
ED General RME/HPI General Chief complaint: Back Pain/Injury Stated complaint: Rectal pain Time Seen by Provider: 03/08/25 02:12 Arrival date/time: 03/08/25 02:11 This is a case of 44-year-old female who came in in the emergency room due to rectal pain today due to external hemorrhoid initially patient stated to the triage nurse that she has lower back pain radiating to both lower extremities but when I talk to the patient she said that she has rectal pain causing her to have back pain denies any injury or trauma and denies any numbness weakness tingling sensation or incontinence to urine or stool denies any abdominal pain nausea vomiting or rectal bleeding persistence of the symptoms this patient decided to start consult here in the emergency room Limitations: no limitations Related Data Previous Rx's ?Medication ?Instructions ?Recorded sennosides 8.6 mg tablet (senna) 8.6 mg PO QDAY PRN constipation 01/10/25 #30 tabs amlodipine 5 mg tablet 10 mg (2 x 5 mg) PO QDAY #30 tabs 02/19/25 carvedilol 25 mg tablet 25 mg PO BID #30 tabs 02/19/25 hydrocodone 10 mg-acetaminophen 1 tab PO Q8H PRN pain 1 week #21 02/19/25 325 mg tablet tabs sulfamethoxazole 800 1 tab PO BID #4 tabs 02/19/25 mg-trimethoprim 160 mg tablet (Bactrim DS) oxycodone-acetaminophen 7.5 mg-325 1 tab PO Q6H PRN pain #10 tabs 02/24/25 mg tablet (Percocet) promethazine 12.5 mg tablet 12.5 mg PO TID PRN nausea and 02/24/25 vomiting #10 tabs hydrocortisone 2.5 % topical cream 1 applic WA QDAY PRN hemorrhoids 02/27/25 with perineal applicator #30 grams (Anusol-HC) lidocaine 5 % topical ointment 1 applic topical BID PRN pain #30 02/27/25 grams docusate sodium 100 mg capsule 100 mg PO QDAY PRN constipation 1 03/04/25 (Colace) week #7 caps hydrocortisone acetate 25 mg 25 mg WA BID #12 ea 03/08/25 rectal suppository (Anusol-HC) pramoxine 1 % topical foam 1 applic WA BID PRN rectal pain 03/08/25 #15 grams Allergies Allergy/AdvReac Type Severity Reaction Status Date / Time No Known Allergies Allergy Verified 03/08/25 02:12 Review of Systems Constitutional Constitutional: Reports system reviewed and no additional complaints, except as documented and Reports as per HPI Cardiovascular Cardiovascular: Reports system reviewed and no additional complaints, except as documented and Reports as per HPI Respiratory Respiratory: Reports system reviewed and no additional complaints, except as documented and Reports as per HPI Gastrointestinal Gastrointestinal: Reports system reviewed and no additional complaints, except as documented and Reports as per HPI Genitourinary Genitourinary: Reports system reviewed and no additional complaints, except as documented and Reports as per HPI Musculoskeletal Musculoskeletal: Reports system reviewed and no additional complaints, except as documented and Reports as per HPI Neurologic Neurologic: Reports system reviewed and no additional complaints, except as documented and Reports as per HPI Past Medical History Past Medical History NEUROLOGIC: Positive Migraine; Negative Neurological Disorders, Cerebrovascular Accident, Transient Ischemic Attacks (TIA) or Seizures CARDIAC: Positive Cardiac Disorders and Hypertension; Negative Myocardial Infarction, Hypercholesterolemia or Congestive Heart Failure RESPIRATORY: Negative Chronic Obstructive Pulmonary Disease (COPD) or Asthma GASTROINTESTINAL: Negative Gastrointestinal Disorders, Hepatitis, Gastrointestinal Bleed, Colorectal Cancer, Hemorrhoids or Gastroesophageal Reflux Disease GENITOURINARY: Positive Genitourinary Disorders, Renal Disease (BILATERAL NEPHROSTOMY TUBES) and Dialysis (PORT ON THE RIGHT CHEST); Negative Kidney Stones or Prostate Cancer REPRODUCTIVE: Positive Previous Pregnancies; Negative Breast Cancer, Pelvic Inflammatory Disease or Testicular Cancer MUSCULOSKELETAL: Negative Musculoskeletal Disorders, Bone Cancer or Arthritis ENDOCRINE: Positive Diabetes Mellitus Type 2; Negative Endocrine Disorders, Diabetes Mellitus Type 1, Hyperthyroidism or Hypothyroidism HEMATOLOGIC: Negative Blood Disorders, Anemia or Sickle Cell Disease PSYCHO/SOCIAL: Positive Anxiety; Negative Recreational Drug Use or Depression OTHER HISTORY: Positive Blood Transfusions, Blood Transfusion Reaction and Cancer; Negative Autoimmune Disease, Anesthesia Reactions, Organ Transplant, Chemotherapy, Radiation Therapy, Hyperbaric Therapy, MRSA, VRSA, Vancomycin-Resistant Enterococci, Human Immunodeficiency Virus (HIV), Chicken Pox, Measles, Mumps, Rubella ([place] Measles), Pertussis, Clostridium Difficile, Breast Cancer, Cervical Cancer, Colorectal Cancer, Lung Cancer, Ovarian Cancer, Prostate Cancer or Testicular Cancer Family History FAMILY HISTORY: Positive Family Cardiac Disorders; Negative Family Psychiatric Problems, Family Respiratory Disorders, Family Gastrointestinal Problems, Family Cancer, Family Surgery or Family Anesthesia Reaction Surgical History SURGICAL: Positive Section; Negative Organ Transplant Social History SMOKING STATUS: Never smoker SUBSTANCE USE: does not use ED Exam General Limitations: Present no limitations General appearance: Present alert, in no apparent distress and other (Child is awake alert oriented not in distress nontoxic look) Head Head exam: Present atraumatic, normocephalic and normal inspection Eye Eye exam: Present normal appearance, PERRL and EOMI ENT ENT exam: Present normal exam, normal oropharynx and mucous membranes moist Neck Neck exam: Present normal inspection, full ROM and trachea midline; Absent tenderness, meningismus, lymphadenopathy or thyromegaly Chest Chest inspection: Present normal inspection and symmetric chest wall rise; Absent tenderness Respiratory Respiratory exam: Present normal lung sounds bilaterally; Absent respiratory distress, wheezes, stridor, accessory muscle use or prolonged expiratory phase Cardiovascular Cardiovascular exam: Present regular rate and normal rhythm; Absent bradycardia, tachycardia, irregular rhythm, normal heart sounds or diastolic murmur Abdominal Exam Abdominal exam: Present soft and normal bowel sounds; Absent distention, tenderness, guarding, rebound, rigidity, hyperactive bowel sounds, hypoactive bowel sounds or organomegaly Rectal Exam Rectal exam: Present normal rectal tone, hemorrhoids (6 o'clock position) and tenderness (Mild tenderness noted no swelling no lesion no abscess); Absent heme (-) stool, heme (+) stool, black stool, bloody stool, fecal impaction or mass Extremities Exam Extremities exam: Present normal inspection and full ROM Back Exam Back exam: Present normal inspection and full ROM; Absent tenderness, CVA tenderness (R), CVA tenderness (L), muscle spasm, paraspinal tenderness, vertebral tenderness, sciatic notch tenderness (R), sciatic notch tenderness (L), straight leg raise (R) or straight leg raise (L) Neurological Exam Neurological exam: Present alert, oriented X3, CN II-XII intact, normal gait and reflexes normal; Absent motor sensory deficit Psychiatric Psychiatric exam: Present normal affect and normal mood Skin Skin exam: Present warm, dry, intact and normal color Course Quality Measures none Orders Category Date Time Status HYDROcodone*/APAP 5/325 [[place] 5/325] Med 03/08/25 02:38 Discontinued 1 tab PO X1 ONE Lidocaine 5% Hemorrhoidal Crm [Rectasmoothe] Med 03/08/25 02:36 Pending See Dose Instructions TOP X1 ONE Vital Signs Vital signs: Vital Signs Temperature 97.9 F 03/08/25 02:23 Pulse Rate 89 03/08/25 02:23 Respiratory Rate 20 03/08/25 02:23 Blood Pressure 188/100 H 03/08/25 02:23 Pulse Oximetry (%) 98 03/08/25 02:23 Oxygen Delivery Method Room Air 03/08/25 02:23 Oxygen saturation is 98% in room air normal Discharge Plan Plan Patient Disposition: HOME (Self Care) Patient condition on transfer: Stable Prescriptions/Referrals Prescriptions/Med Rec: New pramoxine 1 % foam 1 applic WA BID PRN (Reason: rectal pain) Qty: 15 0RF hydrocortisone acetate [Anusol-HC] 25 mg suppository 25 mg WA BID Qty: 12 0RF No Action amlodipine 5 mg Tablet 10 mg PO QDAY Qty: 30 0RF carvedilol 25 mg tablet 25 mg PO BID Qty: 30 0RF Patient Comments: TAKE 1 TABLET BY MOUTH TWICE DAILY WITH MEALS FOR 30 DAYS sulfamethoxazole-trimethoprim [Bactrim DS] 800-160 mg tablet 1 tab PO BID Qty: 4 0RF hydrocodone-acetaminophen 10-325 mg tablet 1 tab PO Q8H MDD hydrocodone 30mg PRN (Reason: pain) 7 Days Qty: 21 0RF oxycodone-acetaminophen [Percocet] 7.5-325 mg tablet 1 tab PO Q6H MDD 3 tab PRN (Reason: pain) Qty: 10 0RF promethazine 12.5 mg tablet 12.5 mg PO TID PRN (Reason: nausea and vomiting) Qty: 10 0RF docusate sodium [Colace] 100 mg capsule 100 mg PO QDAY PRN (Reason: constipation) 7 Days Qty: 7 0RF Rx Instructions: Take one capsule by mouth every day sennosides [senna] 8.6 mg tablet 8.6 mg PO QDAY PRN (Reason: constipation) Qty: 30 0RF hydrocortisone [Anusol-HC] 2.5 % cream with perineal applicator 1 applic WA QDAY PRN (Reason: hemorrhoids) Qty: 30 0RF lidocaine 5 % ointment 1 applic topical BID PRN (Reason: pain) Qty: 30 0RF Rx Instructions: Use 10-15 min prior to wanting to have BM Problem List Clinical Impression: External hemorrhoids, Pain, rectal Patient/Caregiver Discharge Instructions Education Materials: Treating Hemorrhoids: Self-Care, Understanding Hemorrhoids, Diagnosing Hemorrhoids, ED Hemorrhoids Additional Instructions: Follow-up with your primary care physician in 2 days for reevaluation and to be referred to colorectal surgeon for further evaluation and treatment of external hemorrhoid recurrence persistent worsening symptoms or any emergent condition call 911 or go to the nearest emergency room warm sitz bath's advised high-fiber diet prevent constipation apply the medication as directed Print Language: German Stand Alone Forms: Nina Award Info., Patient Portal Info Letter PA/GROOVER RUNNER Supervising Physician PA/GROOVER RUNNER Supervising Physician: Dr. Alen Rothman MDM Narrative MDM hospital course (for use when minimal MDM required): This is a case of 44-year-old female who came in in the emergency room due to rectal pain today due to external hemorrhoid initially patient stated to the triage nurse that she has lower back pain radiating to both lower extremities but when I talk to the patient she said that she has rectal pain causing her to have back pain denies any injury or trauma and denies any numbness weakness tingling sensation or incontinence to urine or stool denies any abdominal pain nausea vomiting or rectal bleeding persistence of the symptoms this patient decided to start consult here in the emergency room physical examination patient is awake alert oriented not in distress nontoxic looking well-hydrated well-nourished patient back exam is normal no tenderness no ROM abdominal exam is benign nonsurgical no guarding no rebound no rigidity patient noted to have external hemorrhoids on the 6 o'clock position no bleeding not thrombosed no abscess based on my physical examination and history patient symptoms suggestive of external hemorrhoid patient was given lidocaine topical and [place] which improved and resolved the pain patient will follow-up with PCP to see a colorectal surgeon for any worsening symptoms or any emergent condition return precaution in the emergency room was advised patient was prescribed with pramoxine for rectal pain and Anusol HC Patient was discharged with comfortable condition walking with stable gait. Patient verbalized no further complains explained diagnosis and answered patient question. Patient is comfortable with the proposed management plan including the need to follow up with his/her primary care physician and any specialist if applicable Discussed patient for any urgent condition or worsening sx, He/She needed to go to emergency room immediately or call 911. Patient acknowledge the responsibility to follow up as instructed and to monitor her/his symptoms. For any persistence of the symptoms for more than 3-5 days return precaution advised. Discussed the result of the test and was given printed discharge instruction Clinical Information Provided by: patient Medical Records reviewed [facility] Meds/Rx considered, not ordered None (Given) describe: Given Labs/Rad/Tests considered, not ordered None Chronic Illness/Social Conditions which may negatively complicate care or outcome(s)-explain: None or not applicable EKG EKG not done Labs Labs: none Imaging Imaging interpretation: none Medication Administration(s) none (Given) Medication Administration History Lidocaine (Lidocaine 5% Hemorrhoidal Cream 30 Gm Tube) 0 gm TOP X1 ONE Stop: 03/08/25 02:37 Discontinued Medications Hydrocodone Bitart/Acetaminophen (Hydrocodone/Apap 5/325 Tablet) 1 tab PO X1 ONE Stop: 03/08/25 02:39 Last Admin: 03/08/25 02:53 Dose: 1 tab Documented By: ROMA Given Diagnosis Differential Diagnosis ED Complaint MDM: External hemorrhoid Diagnoses ruled out and/or further discussions: External hemorrhoid
[2025-03-08] MEDS: LIDOCAINE JELLY 2% (Urojet) 10 ML TUBE TOP (03:31)
[2025-03-08 03:52] VITALS: BP 177/80; PULSE 76; RESP 18; O2SAT 100
== END 2025-03-08 03:59 | disposition home or self-care (01) ==
PROVIDERS: Emergency Provider Emergency Medicine
DX: M54.9 Dorsalgia, unspecified (principal)
CPT/HCPCS: 99283; A9270

== ENCOUNTER 2025-03-13 06:42 | Emergency (ER) | payer MEDICAID, SELFPAY ==
[2025-03-13 06:44] VITALS: BP 164/102; PULSE 105; RESP 17; O2SAT 100; BMI 30.2
--- NOTE | 2025-03-13 06:52 | PD.EDRME ---
Rapid Medical Screening Exam RME Arrival date/time: 03/13/25 06:42 44-year-old female presents to the emergency room today for complaint of lower back pain and abdominal pain with nausea vomiting Chief Complaint: General Adult/Misc Complain
[2025-03-13 06:56] VITALS: TEMP 36.6
[2025-03-13] MEDS: ONDANSETRON INJ 2 MG/ML INJ 2 ML 4 MG IVP ×2 (07:36→11:12)
[2025-03-13] MEDS: MORPHINE SULF INJ 4 MG/ML VIAL IV (07:36)
[2025-03-13 07:49] LABS: Basophils # (Auto) 0.1 Thou/mm3 (0.0-0.2); Basophils % (Auto) 1 % (0-2.5); Eosinophils # (Auto) 0.4 Thou/mm3 (0.0-0.5); Eosinophils % (Auto) 4 % (0-10); Hematocrit 32.4 % (36.0-46.0); Hemoglobin 10.7 g/dL (12.0-16.0); Immature Granulocytes Auto 0.03 Thou/mm3 (0.00-0.00); Lymphocytes # (Auto) 2.3 Thou/mm3 (1.0-4.8); Lymphocytes % (Auto) 24 % (10-50); Mean Corpuscular HGB Conc 33.0 g/dl (31.0-37.0); Mean Corpuscular Hemoglobin 26.7 pg (25.0-35.0); Mean Corpuscular Volume 81 fL (80-100); Monocytes # (Auto) 0.6 Thou/mm3 (0.0-0.8); Monocytes % (Auto) 6 % (0-12); Neutrophils # (Auto) 6.3 Thou/mm3 (1.8-7.7); Neutrophils % (Auto) 65 % (37-80); Nucleated Red Blood Cell # 0.00 Thou/mm3 (0.00-0.00); Nucleated Red Blood Cell % 0 /100 WBC (0); Platelet Count 506 Thou/mm3 (140-440); RDW Standard Deviation 49.4 fL (36.4-46.3); Red Blood Count 4.01 Miln/mm3 (4.00-5.20); White Blood Count 9.6 Thou/mm3 (3.6-11.0)
[2025-03-13 08:00] LABS: HCG,Qualitative Serum Negative
[2025-03-13 08:06] LABS: Alanine Aminotransferase 11 U/L (10-49); Albumin, Serum 4.6 gm/dL (3.5-5.0); Albumin/Globulin Ratio 1.5 (1.2-2.2); Alkaline Phosphatase 112 U/L (46-116); Anion Gap 12 (7-16); Aspartate Amino Transferase 14 U/L (0-34); BUN/Creatinine Ratio 12 Ratio (12-20); Bilirubin,Total 0.3 mg/dL (0.3-1.2); Blood Urea Nitrogen 17 mg/dL (9-23); Calcium 9.5 mg/dL (8.3-10.6); Calcium (Corrected) 9.5 mg/dL (8.5-10.1); Carbon Dioxide 20.3 mMol/L (20.0-31.0); Chloride 105 mMol/L (98-107); Creatinine (Component) 1.4 mg/dL (0.6-1.3); Estimated Creatinine Clearance 49.6 mL/min (>60); Globulin 3.0 gm/dL (2.3-3.5); Glucose 221 mg/dL (74-106); Lipase 36 U/L (12-53); Osmolality,Calculated 282 (275-295); Potassium 4.0 mMol/L (3.4-5.1); Sodium 137 mMol/L (136-145); Total Protein 7.6 gm/dL (5.7-8.2); eGFR 48 See Note
[2025-03-13 08:12] VITALS: BP 159/83; PULSE 71; RESP 17; TEMP 36.7; O2SAT 100
--- NOTE | 2025-03-13 08:31 | PC.NURSE ---
Pt comes from home c/o bilat lower back pain starting approx 5 days ago, would typically be relieved by acetaminophen but last night/ths am it has gotten worse and nothing is helping. Hx of htn, diabetes, kidney disease with bilat nephrostomy tubes. Received dialysis previously, but no longer. States that she was told around May that she had kidney stones. Also, back during the covid shut down she was told that she had cervical cancer but that they burnt it off, however this past November she was told that she still had it/it returned and that it has spread to behind the bladder . Pt's bp is elevated, she states that she did not take her bp meds this morning. Pt given ordered morphine and almost immediately felt relief. Pt on monitors and not showing any other signs of distress, a lot calmer now after being medicated
--- NOTE | 2025-03-13 08:42 | EKG_ITS ---
[facility] Test Date: 2025-03-13 Pat Name: KRZYSZTOF LIN Department: Room: - Gender: Female Administration Vice President: : 1980 Requested By: Naldo Dewitt Order Number: [id number] Reading MD: Naldo Dewitt Measurements Intervals [place] Rate: 66 P: 29 AL: 156 QRS: 1 QRSD: 86 T: 11 QT: 390 QTc: 412 Interpretive Statements SINUS RHYTHM Compared to ECG 03/04/2025 09:59:21 Myocardial infarct finding no longer present /store/S0/[id number]
--- NOTE | 2025-03-13 08:42 | XR_ITS ---
Examination: CT abdomen and pelvis without contrast. Coronal 3-D reconstructions. Sagittal 2-D reconstructions. Date and time of exam: March 13, 2025, 1020 hours INDICATIONS: Lower back pain abdominal pain nausea vomiting onset today, history nephrostomy tubes COMPARISON: 02/13/2025 CTDI: vol (mGy): 6.80 DLP: (mGycm): 412 Technique: Axial images of the abdomen have been obtained, 3 mm slice thickness Intravenous contrast material has not been administered. Low dose protocols were performed. One or more of the following dose reduction techniques were used; automated exposure control, adjustment of the mA and/or KV according to patient size, use of iterative reconstruction technique. Findings: 23 mm focus of parenchymal disease in the anterior right lower lobe image 24 No visualized liver or splenic lesion Cholelithiasis Spleen is not enlarged No pancreatic or adrenal mass Bilateral nephrostomy tubes satisfactory position no hydronephrosis Numerous subcentimeter bilateral renal calculi Normal appendix Retroverted uterus with hyperdensity in the cervix and vagina, sagittal image 90, clinical correlation advised No bladder mass Advanced degenerative disc disease L5-S1 IMPRESSION: 23 mm focus of parenchymal disease in the anterior right lower lobe, recommend PA lateral chest follow-up Cholelithiasis, negative for cholecystitis Bilateral nephrostomy tubes in satisfactory position, no hydronephrosis Hyperdensity in the cervix and vagina, sagittal image 90, clinical correlation advised, recommend repeat transvaginal pelvic sonography
[2025-03-13] MEDS: SODIUM CHLORIDE 0.9% 1000 ML 1,000 ML 999 ML IV (09:11)
--- NOTE | 2025-03-13 11:06 | XR_ITS ---
Examination: Transvaginal ultrasound of the pelvis, complete Technique: Transvaginal sonographic images pelvis performed using fabian scale imaging Exam date and time: March 13, 2025, 12:01 p.m. INDICATIONS: History of bilateral nephrostomy tubes for months, cervical cancer diagnosis, bilateral flank pain today FINDINGS: Uterus 6.2 cm mass in the cervix 19 x 15 x 24 mm with calcification Ovaries obscured by bowel gas IMPRESSION: Calcified cervical mass 19 x 15 x 24 mm .
--- NOTE | 2025-03-13 11:06 | XR_ITS ---
EXAMINATION: PA lateral chest 2 views TECHNIQUE: Chest pain nausea weakness beginning 2 days ago Date and time: March 13, 2025 11:17 a.m., comparison 02/13/2025 INDICATIONS: Chest pain nausea weakness beginning 2 days ago FINDINGS: Suspicious for pneumonia right middle lobe 18 mm pulmonary nodule right lower lobe, please see the CT chest report March 03, 2023 Normal heart size IMPRESSION: Suspicious for early pneumonia right middle lobe 18 mm nodule right lower lobe, please see the CT chest report March 03, 2023, consider repeat CT chest without contrast follow-up
[2025-03-13] MEDS: HYDROmorphone INJ 2 MG/ML VIAL 0.5 MG IVP (11:13)
[2025-03-13 12:37] VITALS: BP 171/94; PULSE 78; RESP 18; TEMP 36.9; O2SAT 98
[2025-03-13 13:49] LABS: Collection Type, Urine Clean Catch; Squamous Epithelial Cell,Urine 0 /hpf (0-5)
[2025-03-13 14:00] LABS: Bacteria,Urine 4+; Bilirubin,Urine Negative (Negative); Blood,Urine Trace (Negative); Color,Urine Lt-Yellow (Lt Yel-Yel); Glucose, Urine 1+ (Negative); Ketones,Urine Negative (Negative); Leukocyte Esterase,Urine Positive (Negative); Nitrite,Urine Negative (Negative); PH,Urine 6.5 (5.0-7.0); Protein,Urine 2+ (Neg - Trace); RBC,Urine 3 /hpf (0-3); Specific Gravity,Urine 1.011 (1.001-1.035); Urobilinogen,Urine Negative mg/dL (0.0-1.0); WBC,Urine 29 /hpf (0-5)
[2025-03-13 14:02] LABS: Clarity,Urine Hazy (Clear/Hazy); Culture Indicated,Urine Yes
--- NOTE | 2025-03-13 14:14 | PD.EDADULT ---
ED General RME/HPI General Chief complaint: General Adult/Misc Complain Stated complaint: BILAT LOW BACK PAIN Arrival date/time: 03/13/25 06:42 Limitations: no limitations RME / HPI RME / HPI narrative: 03/13/25 06:42 44-year-old female presents to the emergency room today for complaint of lower back pain and abdominal pain with nausea vomiting DR. MILLAN MAIN ED EVALUATION: 44 year old female with history of hypertension, diabetes, non-malignant bladder mass, bilateral hydronephrosis s/p bilateral nephrostomy, acute renal failure on HD Tue/Sat presents to the ED for evaluation of lower back pain and abdominal pain beginning today. Described as aching in sensation, rating as moderate. Patient states she was recently diagnosed with UTI and started on Keflex 500mg QDAY. No other associated symptoms reported. Related Data Previous Rx's ?Medication ?Instructions ?Recorded sennosides 8.6 mg tablet (senna) 8.6 mg PO QDAY PRN constipation 01/10/25 #30 tabs amlodipine 5 mg tablet 10 mg (2 x 5 mg) PO QDAY #30 tabs 02/19/25 carvedilol 25 mg tablet 25 mg PO BID #30 tabs 02/19/25 hydrocodone 10 mg-acetaminophen 1 tab PO Q8H PRN pain 1 week #21 02/19/25 325 mg tablet tabs sulfamethoxazole 800 1 tab PO BID #4 tabs 02/19/25 mg-trimethoprim 160 mg tablet (Bactrim DS) oxycodone-acetaminophen 7.5 mg-325 1 tab PO Q6H PRN pain #10 tabs 02/24/25 mg tablet (Percocet) promethazine 12.5 mg tablet 12.5 mg PO TID PRN nausea and 02/24/25 vomiting #10 tabs hydrocortisone 2.5 % topical cream 1 applic AZ QDAY PRN hemorrhoids 02/27/25 with perineal applicator #30 grams (Anusol-HC) lidocaine 5 % topical ointment 1 applic topical BID PRN pain #30 02/27/25 grams hydrocortisone acetate 25 mg 25 mg AZ BID #12 ea 03/08/25 rectal suppository (Anusol-HC) pramoxine 1 % topical foam 1 applic AZ BID PRN rectal pain 03/08/25 #15 grams hydrocodone 5 mg-acetaminophen 325 1 tab PO Q8H PRN pain #14 tabs 03/13/25 mg tablet sulfamethoxazole 800 1 tab PO BID 10 days #20 tabs 03/13/25 mg-trimethoprim 160 mg tablet (Bactrim DS) Allergies Allergy/AdvReac Type Severity Reaction Status Date / Time No Known Allergies Allergy Verified 03/13/25 06:47 Review of Systems Review of Systems Systems Reviewed: All systems reviewed, normal except as documented Past Medical History Past Medical History NEUROLOGIC: Positive Migraine CARDIAC: Positive Cardiac Disorders and Hypertension GENITOURINARY: Positive Genitourinary Disorders (bilateral nephrostomy), Renal Disease and Dialysis REPRODUCTIVE: Positive Previous Pregnancies ENDOCRINE: Positive Endocrine Disorders and Diabetes Mellitus Type 2 PSYCHO/SOCIAL: Positive Anxiety OTHER HISTORY: Positive Blood Transfusions, Blood Transfusion Reaction and Cancer Family History FAMILY HISTORY: Positive Family Cardiac Disorders Surgical History SURGICAL: Positive Endocrine Surgery (bilat nephrostomy tubes) and Section Social History SMOKING STATUS: Never smoker SUBSTANCE USE: does not use ED Exam General Limitations: Present no limitations General appearance: Present alert and in no apparent distress Head Head exam: Present atraumatic, normocephalic and normal inspection Eye Eye exam: Present normal appearance, PERRL and EOMI ENT ENT exam: Present normal exam, normal oropharynx and mucous membranes moist Neck Neck exam: Present normal inspection, full ROM and trachea midline Chest Chest inspection: Present normal inspection and symmetric chest wall rise Respiratory Respiratory exam: Present normal lung sounds bilaterally Cardiovascular Cardiovascular exam: Present regular rate, normal rhythm and normal heart sounds Abdominal Exam Abdominal exam: Present soft, tenderness (lower abdominal tenderness) and normal bowel sounds Extremities Exam Extremities exam: Present normal inspection and full ROM Back Exam Back exam: Present normal inspection and full ROM Neurological Exam Neurological exam: Present alert, oriented X3 and CN II-XII intact Psychiatric Psychiatric exam: Present normal affect and normal mood Skin Skin exam: Present warm, dry, intact and normal color Course Quality Measures none Orders Category Date Time Status Housecleaner NOW Care 03/13/25 08:42 Active Continuous Pulse Oximetry NOW Care 03/13/25 08:42 Active EKG (ED ONLY) *Do not use* NOW Care 03/13/25 08:42 Completed Insert IV NOW Care 03/13/25 08:[address] abdomen pelvis wo con Stat Exams 03/13/25 08:42 Completed CXR2 [XR chest 2V] Stat Exams 03/13/25 11:06 Completed EKG (ED Only) Stat Exams 03/13/25 08:42 Draft US transvaginal Stat Exams 03/13/25 11:06 Completed CBC Stat Lab 03/13/25 07:34 Completed Comprehensive Metabolic Panel Stat Lab 03/13/25 07:34 Completed HCG,Qualitative Serum Stat Lab 03/13/25 07:34 Completed Lipase Stat Lab 03/13/25 07:34 Completed UA, C/S IF [Urinalysis, C/S if Indicated] Stat Lab 03/13/25 13:40 Completed Urine Culture Stat Lab 03/13/25 13:40 Received HYDROmorphone INJ [Dilaudid Inj] Med 03/13/25 11:05 Discontinued 0.5 mg IVP X1 ONE Morphine* Inj Med 03/13/25 06:51 Discontinued 4 mg IV X1 ONE Ondansetron Inj [Zofran Inj] Med 03/13/25 06:51 Discontinued 4 mg IVP X1 ONE Ondansetron Inj [Zofran Inj] Med 03/13/25 11:05 Discontinued 4 mg IVP X1 ONE Sodium Chloride 0.9% 1000 ml [Ns] 1,000 ml Med 03/13/25 08:42 Discontinued IV 999 mls/hr cefTRIAXone [Rocephin] 2 gm Med 03/13/25 14:15 Discontinued SODIUM CHLORIDE 0.9% (Popper) [Ns 0.9% (P)] 50 ml IV X1 Vital Signs Vital signs: Vital Signs Pulse Rate 105 H 03/13/25 06:44 Respiratory Rate 17 03/13/25 06:44 Blood Pressure 164/102 H 03/13/25 06:44 Pulse Oximetry (%) 100 03/13/25 06:44 Oxygen Delivery Method Room Air 03/13/25 06:44 Pulse ox is 100% on room air which is adequate. Discharge Plan Plan Patient Disposition: HOME (Self Care) Patient condition on transfer: Stable Prescriptions/Referrals Prescriptions/Med Rec: New sulfamethoxazole-trimethoprim [Bactrim DS] 800-160 mg tablet 1 tab PO BID 10 Days Qty: 20 0RF hydrocodone-acetaminophen 5-325 mg tablet 1 tab PO Q8H MDD 3 PRN (Reason: pain) Qty: 14 0RF No Action amlodipine 5 mg Tablet 10 mg PO QDAY Qty: 30 0RF carvedilol 25 mg tablet 25 mg PO BID Qty: 30 0RF Patient Comments: TAKE 1 TABLET BY MOUTH TWICE DAILY WITH MEALS FOR 30 DAYS sulfamethoxazole-trimethoprim [Bactrim DS] 800-160 mg tablet 1 tab PO BID Qty: 4 0RF hydrocodone-acetaminophen 10-325 mg tablet 1 tab PO Q8H MDD hydrocodone 30mg PRN (Reason: pain) 7 Days Qty: 21 0RF oxycodone-acetaminophen [Percocet] 7.5-325 mg tablet 1 tab PO Q6H MDD 3 tab PRN (Reason: pain) Qty: 10 0RF promethazine 12.5 mg tablet 12.5 mg PO TID PRN (Reason: nausea and vomiting) Qty: 10 0RF sennosides [senna] 8.6 mg tablet 8.6 mg PO QDAY PRN (Reason: constipation) Qty: 30 0RF hydrocortisone [Anusol-HC] 2.5 % cream with perineal applicator 1 applic [place] QDAY PRN (Reason: hemorrhoids) Qty: 30 0RF lidocaine 5 % ointment 1 applic topical BID PRN (Reason: pain) Qty: 30 0RF Rx Instructions: Use 10-15 min prior to wanting to have BM pramoxine 1 % foam 1 applic AZ BID PRN (Reason: rectal pain) Qty: 15 0RF hydrocortisone acetate [Anusol-HC] 25 mg suppository 25 mg AZ BID Qty: 12 0RF Referrals: Stan Cedillo MD [Primary Care Provider, Family Practice] - In 1 week Problem List Clinical Impression: UTI (urinary tract infection), Abdominal pain Patient/Caregiver Discharge Instructions Discharge Activity: activity as tolerated Education Materials: Abdominal Pain, Urinary Tract Infections in Women Additional Instructions: Follow-up with your doctor next week. Take your medications as prescribed. Be sure to drink a lot of water. Avoid taking B vitamins while you are on Bactrim. Print Language: Gabonese Stand Alone Forms: Nina Award Info., Patient Portal Info Letter MDM Narrative MDM hospital course (for use when minimal MDM required): Violet Garibay, yasmin scribing for and in the presence of Dr. Millan. Patient is aware of the cervical mass and has had it biopsied. The urine today was positive for UTI even though she is currently on 500mg Keflex for the UTI. Patient was given a dose of Rocephin here and prescribed Bactrim. Clinical Information Provided by: patient Medical Records reviewed [facility] [place] Meds/Rx considered, not ordered None Labs/Rad/Tests considered, not ordered None Chronic Illness/Social Conditions which may negatively complicate care or outcome(s)-explain: None or not applicable EKG Interpretation EKG #1: EKG Interpretation: EKG @ 09:36 am. NSR, rate 66, no STEMI. Labs Labs: interpreted by az Lab(s) Interpretation(s): CBC and CMP unchanged from visit on 03/04/2025. Urinalysis shows 29 WBC with positive leukocyte esterase, 4+ bacteria. Imaging Imaging Interpretation(s): Ordering Physician: Naldo Millan MD Date of Service: 03/13/25 Procedure(s): CT abdomen pelvis wo con Accession Number(s): [id number] cc: Naldo Millan MD; Stan Cedillo MD; Gabriel Roche MD~ Examination: CT abdomen and pelvis without contrast. Coronal 3-D reconstructions. Sagittal 2-D reconstructions. Date and time of exam: March 13, 2025, 1020 hours INDICATIONS: Lower back pain abdominal pain nausea vomiting onset today, history nephrostomy tubes COMPARISON: 02/13/2025 CTDI: vol (mGy): 6.80 DLP: (mGycm): 412 Technique: Axial images of the abdomen have been obtained, 3 mm slice thickness Intravenous contrast material has not been administered. Low dose protocols were performed. One or more of the following dose reduction techniques were used; automated exposure control, adjustment of the mA and/or KV according to patient size, use of iterative reconstruction technique. Findings: 23 mm focus of parenchymal disease in the anterior right lower lobe image 24 No visualized liver or splenic lesion Cholelithiasis Spleen is not enlarged No pancreatic or adrenal mass Bilateral nephrostomy tubes satisfactory position no hydronephrosis Numerous subcentimeter bilateral renal calculi Normal appendix Retroverted uterus with hyperdensity in the cervix and vagina, sagittal image 90, clinical correlation advised No bladder mass Advanced degenerative disc disease L5-S1 IMPRESSION: 23 mm focus of parenchymal disease in the anterior right lower lobe, recommend PA lateral chest follow-up Cholelithiasis, negative for cholecystitis Bilateral nephrostomy tubes in satisfactory position, no hydronephrosis Hyperdensity in the cervix and vagina, sagittal image 90, clinical correlation advised, recommend repeat transvaginal pelvic sonography Dictated By: Gabriel Roche MD Signed By: <Electronically signed by Gabriel Roche MD in OV> 03/13/25 1100 Ordering Physician: Naldo Millan MD Date of Service: 03/13/25 Procedure(s): XR chest 2V Accession Number(s): [id number] cc: Naldo Millan MD; Stan Cedillo MD; Gabriel Roche MD~ EXAMINATION: PA lateral chest 2 views TECHNIQUE: Chest pain nausea weakness beginning 2 days ago Date and time: March 13, 2025 11:17 a.m., comparison 02/13/2025 INDICATIONS: Chest pain nausea weakness beginning 2 days ago FINDINGS: Suspicious for pneumonia right middle lobe 18 mm pulmonary nodule right lower lobe, please see the CT chest report March 03, 2023 Normal heart size IMPRESSION: Suspicious for early pneumonia right middle lobe 18 mm nodule right lower lobe, please see the CT chest report March 03, 2023, consider repeat CT chest without contrast follow-up Dictated By: Gabriel Roche MD Signed By: <Electronically signed by Gabriel Roche MD in OV> 03/13/25 1130 Ordering Physician: Naldo Millan MD Date of Service: 03/13/25 Procedure(s): US transvaginal Accession Number(s): [id number] cc: Naldo Millan MD; Stan Cedillo MD; Gabriel Roche MD~ Examination: Transvaginal ultrasound of the pelvis, complete Technique: Transvaginal sonographic images pelvis performed using fabian scale imaging Exam date and time: March 13, 2025, 12:01 p.m. INDICATIONS: History of bilateral nephrostomy tubes for months, cervical cancer diagnosis, bilateral flank pain today FINDINGS: Uterus 6.2 cm mass in the cervix 19 x 15 x 24 mm with calcification Ovaries obscured by bowel gas IMPRESSION: Calcified cervical mass 19 x 15 x 24 mm . Dictated By: Gabriel Roche MD Signed By: <Electronically signed by Gabriel Roche MD in OV> 03/13/25 1319 Medication Administration(s) Medication Administration History Discontinued Medications Hydromorphone HCl (Hydromorphone Inj 2 Mg/Ml Vial) 0.5 mg IVP X1 ONE Stop: 03/13/25 11:06 Last Admin: 03/13/25 11:13 Dose: 0.5 mg Documented By: CS Sodium Chloride (Ns) 1,000 mls @ 999 mls/hr IV .Q1H1M ONE Stop: 03/13/25 09:42 Last Infusion: 03/13/25 10:12 Dose: Infused Documented By: Admin: 03/13/25 09:11 Dose: 999 mls/hr Documented By: CS Ceftriaxone Sodium 2 gm/ (Sodium Chloride) 50 mls @ 100 mls/hr IV X1 ONE Stop: 03/13/25 14:44 Last Infusion: 03/13/25 15:11 Dose: Infused Documented By: Admin: 03/13/25 14:41 Dose: 100 mls/hr Documented By: CS Morphine Sulfate (Morphine Sulf Inj 4 Mg/Ml Vial) 4 mg IV X1 ONE Stop: 03/13/25 06:52 Last Admin: 03/13/25 07:36 Dose: 4 mg Documented By: CS Ondansetron HCl (Ondansetron Inj 2 Mg/Ml Inj 2 Ml) 4 mg IVP X1 ONE; Protocol Stop: 03/13/25 06:52 Last Admin: 03/13/25 07:36 Dose: 4 mg Documented By: CS Ondansetron HCl (Ondansetron Inj 2 Mg/Ml Inj 2 Ml) 4 mg IVP X1 ONE; Protocol Stop: 03/13/25 11:06 Last Admin: 03/13/25 11:12 Dose: 4 mg Documented By: CS See above
[2025-03-13] MEDS: cefTRIAXone 2 GM in SODIUM CHLORIDE 0.9% (Popper) 50 ML IV (14:41)
[2025-03-13 14:55] VITALS: BP 152/94; PULSE 67; RESP 18; TEMP 36.9; O2SAT 100
[2025-03-13 15:46] VITALS: BP 194/99; PULSE 72; RESP 18; TEMP 37.1; O2SAT 100
== END 2025-03-13 15:46 | disposition home or self-care (01) ==
PROVIDERS: Nurse Practitioner Primary Care; Emergency Provider Family Medicine; PCP Family Medicine
DX: K80.20 Calculus of gallbladder without cholecystitis without obstruction (principal); E11.9 Type 2 diabetes mellitus without complications; I10 Essential (primary) hypertension; N39.0 Urinary tract infection, site not specified
CPT/HCPCS: 36415; 71046; 74176; 76830; 80053; 81001; 83690; 84703; 85025; 87077; 87086; 87186; 93005; 99283; J0696; J1171; J2270; J2405; J7030; J7050

== ENCOUNTER 2025-03-14 20:42 | Inpatient (IN) | payer MEDICAID, SELFPAY ==
[2025-03-14 20:44] VITALS: BMI 30.2
[2025-03-14 20:53] VITALS: BP 184/90; PULSE 83; RESP 22; TEMP 37.1; O2SAT 97
--- NOTE | 2025-03-14 20:54 | EDNOTE_ITS ---
ED Abdominal Pain RME/HPI General Chief Complaint: Abdominal Pain Stated complaint: ABD PAIN Time seen by provider: 03/14/25 20:59 Arrival date/time: 03/14/25 20:42 RME / HPI RME / HPI narrative: See [facility] for Dr. Calvin's HPI Documentation. Related Data Previous Rx's ?Medication ?Instructions ?Recorded sennosides 8.6 mg tablet (senna) 8.6 mg PO QDAY PRN co nstipation 01/10/25 #30 tabs amlodipine 5 mg tablet 10 mg (2 x 5 mg) PO QDAY #30 tabs 02/19/25 carvedilol 25 mg tablet 25 mg PO BID #30 tabs hydrocodone 10 mg-acetaminophen 1 tab PO Q8H PRN pain 1 week #21 02/19/25 325 mg tablet tabs sulfamethoxazole 800 1 tab PO BID #4 tabs 5 mg-trimethoprim 160 mg tablet (Bactrim DS) oxycodone-acetaminophen 7.5 mg-325 1 tab PO Q6H PRN pa in #10 tabs 02/24/25 mg tablet (Percocet) promethazine 12.5 mg tablet 12.5 mg PO TID PRN nausea and 02/24/25 vomiting #10 tabs hydrocortisone 2.5 % topical cream 1 applic NM QDAY NM N hemorrhoids 02/27/25 with perineal applicator #30 grams (Anusol-HC) lidocaine 5 % topical ointment 1 applic topical BID NM N pain #30 02/27/25 grams hydrocortisone acetate 25 mg 25 mg NM BID #12 ea 03/08 rectal suppository (Anusol-HC) pramoxine 1 % topical foam 1 applic NM BID PRN rectal pain 03/08/25 #15 grams hydrocodone 5 mg-acetaminophen 325 1 tab PO Q8H PRN pa in #14 tabs 03/13/25 mg tablet sulfamethoxazole 800 1 tab PO BID 10 days #20 tab s 03/13/25 mg-trimethoprim 160 mg tablet (Bactrim DS) Allergies Allergy/AdvReac Type Severity Reaction Status Date / Time No Known Allergies Allergy Verified 03/14/25 20:43 Review of Systems Review of Systems Systems Reviewed: All systems reviewed, normal except as documented Past Medical History Past Medical History NEUROLOGIC: Positive Migraine CARDIAC: Positive Cardiac Disorders and Hypertension GENITOURINARY: Positive Genitourinary Disorders (bilateral nephrostomy), Renal Disease and Dialysis REPRODUCTIVE: Positive Previous Pregnancies ENDOCRINE: Positive Endocrine Disorders and Diabetes Mellitus Type 2 PSYCHO/SOCIAL: Positive Anxiety OTHER HISTORY: Positive Blood Transfusions, Blood Transfusion Reaction and Cancer Family History FAMILY HISTORY: Positive Family Cardiac Disorders Surgical History SURGICAL: Positive Endocrine Surgery (bilat nephrostomy tubes) and Section ED Exam Narrative Physical exam: See MDM for Dr. Calvin's Physical Exam Documentation. Course Quality Measures none Orders Category Date Time Status COVID-19 Screening Questionnaire NOW Care 03/14/25 23:[address] Screening NOW Care 03/14/25 21:04 Active Decision to Admit X1 Care 03/14/25 23:36 Active Saline [Insert IV] NOW Care 03/14/25 21:03 Active Consult to Gynecology Stat Cons 03/14/25 23:[address] chest abdomen pelvis w Stat Exams 03/14/25 21:04 Completed US gall bladder Stat Exams 03/14/25 21:05 Completed Amylase Stat Lab 03/14/25 21:33 Completed Bilirubin,Direct Stat Lab 03/14/25 21:33 Completed CBC Stat Lab 03/14/25 21:33 Completed CMP [Comprehensive Metabolic Panel] Stat Lab 03/14/25 21:33 Completed HCG,Qualitative Serum Stat Lab 03/14/25 21:33 Completed Lipase Stat Lab 03/14/25 21:33 Completed Magnesium Stat Lab 03/14/25 21:33 Completed UA, C/S IF [Urinalysis, C/S if Indicated] Stat Lab 03/14/25 22:27 Completed Urine Culture Stat Lab 03/14/25 22:27 Received Magnesium Sulfate 2 GM Ivpb [Magnesium Sulfate Ivpb] Med 03/14/25 22:16 Discontinued 2 gm in 50 ml IV X1 Morphine* Inj Med 03/14/25 21:03 Discontinued 6 mg IV X1 ONE Ondansetron Inj [Zofran Inj] Med 03/14/25 21:03 Discontinued 4 mg IVP X1 ONE Sodium Chloride 0.9% 1000 ml [Ns] 1,000 ml Med 03/14/25 21:03 Discontinued IV 999 mls/hr cefTRIAXone/D5w 1gm IV premix [Rocephin/D5w 1gm IV Med 03/14/25 21:03 Discontinued premix] 1 gm in 50 ml IV X1 cefTRIAXone/D5w 1gm IV premix [Rocephin/D5w 1gm IV Med 03/14/25 23:02 Discontinued premix] 50 ml IV X1 cloNIDine HCL [Catapres] Med 03/14/25 22:49 Discontinued 0.3 mg PO X1 ONE Vital Signs Vital signs: Vital Signs Temperature 98.8 F 03/14/25 20:53 Pulse Rate 83 03/14/25 20:53 Respiratory Rate 22 H 03/14/25 20:53 Blood Pressure 184/90 H 03/14/25 20:53 Pulse Oximetry (%) 97 03/14/25 20:53 Oxygen Delivery Method Room Air 03/14/25 20:53 Abdominal Pain MDM MDM Narrative MDM Narrative:: This section includes all my notes and documentations, including HPI, PE, and ED course. Bassem Calvin MD HPI: 44 y/o female with Hx of HTN and and BL Nephrostomy here with lower abdominal pain. Has been here almost daily with the same pain for several months. She also reports about 30 pound weight loss in the last month. She also reports severe malaise and fatigue. Has nausea and vomiting intermittently. Only nausea today. No obvious fever. No other complaints. ROS: All negative except as documented in HPI. Physical Exam: General: Alert and oriented. In severe pain. Eyes: Conjunctivae and lids clear. ENT: No nasal congestion. Neck: Supple. Heart: RRR. Lungs: No respiratory distress. Good air movement. No rhonchi, wheezing, rales. Abdomen: Soft with lower quadrant tenderness. Normal bowel sounds. No distension. No rebound or guarding. Back: No CVA tenderness. Skin: Warm and dry. Neuro: Alert and oriented X 3. I reviewed all diagnostic test results: My review of the Chest/Abdomen/Pelvis CT report is: Pulmonary metastatic disease. Bilateral nephrostomy tube satisfactory position no hydronephrosis. Metastatic abdominal and pelvic lymphadenopathy. Mass in the cervix. My review of the Gall Bladder US report is cholelithiasis. Blood tests remarkable for Cr 1.4, Mg 1.5. UA showed positive nitrite, positive leukocyte esterase, and 11 WBC. At this point, diagnoses include: Metastasis from cervical cancer Intractable abdominal pain Rapid weight loss Asthenia UTI (urinary tract infection) Hypomagnesemia SAPPHIRE Cholelithiasis Treatment here included: IVF Morphine 6 mg IV Zofran 4 mg IV Rocephin I G IV Magnesium Sulfate 2 G IV 23:07 - I discussed the case with our CHEMICAL ENGINEERING TECHNICIAN, Dr. Lopez. About the presentation and exam and diagnostics and treatments here. Recommended admission to hospitalist service. 23:12 - I discussed the case with our hospitalist. About the presentation and exam and diagnostics and treatments here. And need of further care in the hosp ital. Will accept the patient. Bassem Calvin MD Patient data External records reviewed:: [facility] previous records (Reviewed prior ED records from 03/13/25. Patient was seen for Abdominal pain.) Clinical information provided by:: patient Social determinants that could affect healthcare access:: none Patient has the following chronic illnesses:: Migraine, Hypertension, BL Nephrostomy Tubes, Renal Disease and Dialysis, Diabetes Mellitus Type 2, Anxiety How is presenting disease/condition affected by chronic disease/condition?: exacerbated by Evaluation data The following diagnostics were reviewed and interpreted by me:: lab results and radiology exam(s) Lab and/or radiology exams considered but not ordered:: None Interpretation Summary: I reviewed all diagnostic test results: My review of the Chest/Abdomen/Pelvis CT report is: Pulmonary metastatic disease. Bilateral nephrostomy tube satisfactory position no hydronephrosis. Metastatic abdominal and pelvic lymphadenopathy. Mass in the cervix. My review of the Gall Bladder US report is cholelithiasis. Blood tests remarkable for Cr 1.4, Mg 1.5. UA showed positive nitrite, positive leukocyte esterase, and 11 WBC. Medications / Prescriptions Medications or Prescriptions considered but not ordered:: None Medication administrations:: Medication Administration History Acetaminophen (Acetaminophen 325 Mg Tablet) 650 mg PO Q6H PRN PRN Reason: Fever >100.3 Stop: 04/13/25 23:44 Acetaminophen (Acetaminophen 325 Mg Tablet) 650 mg PO Q6H PRN PRN Reason: PAIN SCALE 1-3 (mild Stop: 04/13/25 23:44 Amlodipine Besylate (Amlodipine Besylate 5 Mg Tablet) 10 mg PO QDAY CLEMENTINE Stop: 04/14/25 08:59 Carvedilol (Carvedilol 12.5 Mg Tablet) 25 mg PO BIDWM [facility] Stop: 04/14/25 07:59 Dextrose (Dextrose 50%-Water Inj 50 Ml Syringe) 25 ml IV Q15MIN PRN PRN Reason: BG 50-70 responsive npo pt Stop: 04/14/25 00:23 Dextrose (Dextrose 50%-Water Inj 50 Ml Syringe) 50 ml IV Q15MIN PRN PRN Reason: BG <50 OR BG <70 & pt unresponsive Stop: 04/14/25 00:23 Glucagon (Glucagon Inj 1 Mg Vial) 1 mg IM Q15MIN PRN PRN Reason: BG <70, and no IV access Heparin Sodium (Porcine) (Heparin Sod Inj 5000 Unit/Ml Vial) 5,000 unit SC Q8HR [facility] Stop: 03/29/25 05:59 Hydromorphone HCl (Hydromorphone Inj 2 Mg/Ml Vial) 2 mg IVP Q6H PRN PRN Reason: Pain 4-10 Stop: 03/19/25 23:44 Last Admin: 03/15/25 00:15 Dose: 2 mg Documented By: HARMEET Hydromorphone HCl (Hydromorphone Inj 2 Mg/Ml Vial) 1 mg IVP Q4H PRN PRN Reason: Breakthrough Pain Stop: 03/19/25 23:44 Insulin Human Lispro (Insulin Lispro (Admelog) 1 Unit/0.01 Ml Unit) 0 unit SC Q6H [facility]; Protocol Stop: 04/14/25 00:29 Last Admin: 03/15/25 00:42 Dose: 1 unit Documented By: HARMEET Co-signed By: CORDELIA Ondansetron HCl (Ondansetron Inj 2 Mg/Ml Inj 2 Ml) 4 mg IVP Q6H PRN; Protocol PRN Reason: NAUSEA OR VOMITING Stop: 04/13/25 23:44 Sennosides (Senna/Docusate Sod 1 Tab Tablet) 1 tab PO QDAY [facility]; Protocol Stop: 04/14/25 08:59 Trimethoprim/Sulfamethoxazole (Trimethoprim/Sulfa 160/800 Ds Tablet) 1 tab PO BID [facility] Stop: 03/22/25 00:29 Last Admin: 03/15/25 00:41 Dose: 1 tab Documented By: HARMEET Discontinued Medications Clonidine (Clonidine Hcl 0.1 Mg Tablet) 0.3 mg PO X1 ONE Stop: 03/14/25 22:50 Last Admin: 03/14/25 22:56 Dose: 0.3 mg Documented By: HARMEET Hydromorphone HCl (Hydromorphone Inj 2 Mg/Ml Vial) 2 mg IVP Q6H PRN PRN Reason: Pain 4-8 Stop: 03/19/25 23:44 Hydromorphone HCl (Hydromorphone Inj 2 Mg/Ml Vial) 1 mg IVP Q2H PRN PRN Reason: Breakthrough Pain Stop: 03/19/25 23:44 Sodium Chloride (Ns) 1,000 mls @ 999 mls/hr IV .Q1H1M ONE Stop: 03/14/25 22:03 Last Infusion: 03/14/25 22:32 Dose: Infused Documented By: Admin: 03/14/25 21:31 Dose: 999 mls/hr Documented By: HARMEET Ceftriaxone Sodium/Dextrose (Rocephin/D5w 1gm Iv Premix) 1 gm in 50 mls @ 100 mls/hr IV X1 ONE Stop: 03/14/25 21:32 Last Infusion: 03/14/25 22:00 Dose: Infused Documented By: Admin: 03/14/25 21:30 Dose: 100 mls/hr Documented By: HARMEET Magnesium Sulfate (Magnesium Sulfate Ivpb) 2 gm in 50 mls @ 25 mls/hr IV X1 ONE Stop: 03/15/25 00:15 Last Admin: 03/14/25 22:25 Dose: 25 mls/hr Documented By: HARMEET Ceftriaxone Sodium/Dextrose (Rocephin/D5w 1gm Iv Premix) 50 mls @ 100 mls/hr IV X1 ONE Stop: 03/14/25 23:31 Labetalol HCl (Labetalol Inj 5 Mg/Ml Vial 20 Ml) 10 mg IVP X1 ONE Stop: 03/14/25 23:52 Last Admin: 03/15/25 00:09 Dose: 10 mg Documented By: HARMEET Morphine Sulfate (Morphine Sulf Inj 4 Mg/Ml Vial) 6 mg IV X1 ONE Stop: 03/14/25 21:04 Last Admin: 03/14/25 21:29 Dose: 6 mg Documented By: HARMEET Ondansetron HCl (Ondansetron Inj 2 Mg/Ml Inj 2 Ml) 4 mg IVP X1 ONE; Protocol Stop: 03/14/25 21:04 Last Admin: 03/14/25 21:30 Dose: 4 mg Documented By: HARMEET Treatment here from me included: IVF Morphine 6 mg IV Zofran 4 mg IV Rocephin I G IV Magnesium Sulfate 2 G IV Consultations Consultation(s) initiated? (list below): Yes Consultation #1 (Physician, Specialty, Details): I discussed the case with our CHEMICAL ENGINEERING TECHNICIAN, Dr. Lopez. About the presentation and exam and diagnostics and treatments here. Recommended admission to hospitalist service. Time: 23:07 Consultation #2 (Physician, Specialty, Details): I discussed the case with our hospitalist. About the presentation and exam and diagnostics and treatments here. And need of further care in the hospital. Will accept the patient. Time: 23:12 Diagnosis Differential diagnosis abdominal pain: abdominal pain, constipation, endometriosis, gastroenteritis and small bowel obstruction Most likely diagnosis given after review of the tests above:: Metastasis from cervical cancer Intractable abdominal pain Rapid weight loss Asthenia UTI (urinary tract infection) Hypomagnesemia SAPPHIRE Cholelithiasis Admission Indicated Admission indicated?: indicated Explain why admission is indicated or not indicated:: Metastasis from cervical cancer Intractable abdominal pain Rapid weight loss Asthenia UTI (urinary tract infection) Hypomagnesemia SAPPHIRE Cholelithiasis Admission Request Was there a request for admission?: Yes Admission Attestation Admission request attestation: Discussed case with Hospitalist service regarding admission. Discussed patients ED course, exam findings, labs, and radiology results. Agreed to accept the patient for admission. Disposition Plan Disposition Plan: Admit Discharge Plan Plan Patient Disposition: Admit Acute Care w/in Hospital Problem List Clinical Impression: Metastasis from cervical cancer, Intractable abdominal pain, Rapid weight loss, Asthenia, UTI (urinary tract infection), Hypomagnesemia, SAPPHIRE (acute kidney injury), Cholelithiasis
--- NOTE | 2025-03-14 21:04 | XR_ITS ---
Examination: CT chest with intravenous contrast CT abdomen with intravenous contrast CT pelvis with intravenous contrast 2-D coronal and sagittal reconstructions Time of exam: March 14, 2025, 2151 hours Comparison March 13, 2024 MEDICATIONS: Cervical carcinoma diagnosis history nephrostomy tubes 3 months ago severe right lower abdominal and chest pain today CTDI: vol (mGy) : 8.32 DLP: (mGycm): 607 Technique: Multiple axial images of the chest, abdomen and pelvis with intravenous contrast, 3.0 mm slice thickness. Images obtained post intravenous injection Isovue 370 60 cc. 2-D sagittal and coronal reconstructions. Low dose protocols were performed. One or more of the following dose reduction techniques were used; automated exposure control, adjustment of the mA and/or KV according to patient size, use of iterative reconstruction technique. Findings: No thoracic aortic aneurysmal dilatation Pulmonary masses right upper lobe, 23 mm, right lower lobe 23 mm No pneumonia or pulmonary edema No visualized liver or splenic lesion Gallstones No pancreatic or adrenal mass Bilateral percutaneous nephrostomy tubes in satisfactory position no hydronephrosis 1 to 2 mm bilateral renal calculi Subcentimeter abdominal pelvic lymphadenopathy Appendix is thickened with possible minimal periappendiceal inflammatory change No bowel obstruction Hyperdensities in the lower endometrial canal especially cervix Bladder intact Advanced degenerative disc disease L5-S1 IMPRESSION: Pulmonary masses as above, consider nodular pulmonary metastatic disease Bilateral nephrostomy tube satisfactory position no hydronephrosis Bilateral tiny renal calculi Metastatic abdominal and pelvic lymphadenopathy subcentimeter Linear hyperdense small mass in the cervix, please see the pelvic sonogram report March 13, 2025 Appendix is thickened with possible minimal inflammatory change, the appearance should be clinically correlated
--- NOTE | 2025-03-14 21:05 | XR_ITS ---
Examination: Abdomen sonogram, Limited Date and time of exam: March 14, 2025 10:30 p.m. INDICATIONS: Abdominal pain beginning several months ago Technique: Real-time faiban scale transabdominal sonographic images of the upper abdomen obtained. Findings: Multiple gallstones, normal gallbladder wall Common bile duct 0.5 cm Pancreatic head 3.0 cm Liver 15.6 cm fatty infiltration Normal hepatopetal portal venous flow Patent IVC IMPRESSION: Cholelithiasis, negative for cholecystitis
[2025-03-14 21:28] VITALS: BP 201/97; PULSE 94; RESP 19; TEMP 36.4; O2SAT 99
[2025-03-14] MEDS: MORPHINE SULF INJ 4 MG/ML VIAL 6 MG IV (21:29)
[2025-03-14] MEDS: ONDANSETRON INJ 2 MG/ML INJ 2 ML 4 MG IVP (21:30)
[2025-03-14] MEDS: cefTRIAXone/D5w 1gm IV premix 1 GM/50 ML BAG IV (21:30)
[2025-03-14] MEDS: SODIUM CHLORIDE 0.9% 1000 ML 1,000 ML 999 ML IV (21:31)
[2025-03-14 21:43] LABS: Basophils # (Auto) 0.1 Thou/mm3 (0.0-0.2); Basophils % (Auto) 1 % (0-2.5); Eosinophils # (Auto) 0.3 Thou/mm3 (0.0-0.5); Eosinophils % (Auto) 3 % (0-10); Hematocrit 31.0 % (36.0-46.0); Hemoglobin 10.4 g/dL (12.0-16.0); Immature Granulocytes Auto 0.04 Thou/mm3 (0.00-0.00); Lymphocytes # (Auto) 2.5 Thou/mm3 (1.0-4.8); Lymphocytes % (Auto) 23 % (10-50); Mean Corpuscular HGB Conc 33.5 g/dl (31.0-37.0); Mean Corpuscular Hemoglobin 26.7 pg (25.0-35.0); Mean Corpuscular Volume 80 fL (80-100); Monocytes # (Auto) 0.5 Thou/mm3 (0.0-0.8); Monocytes % (Auto) 5 % (0-12); Neutrophils # (Auto) 7.3 Thou/mm3 (1.8-7.7); Neutrophils % (Auto) 68 % (37-80); Nucleated Red Blood Cell # 0.00 Thou/mm3 (0.00-0.00); Nucleated Red Blood Cell % 0 /100 WBC (0); Platelet Count 501 Thou/mm3 (140-440); RDW Standard Deviation 47.1 fL (36.4-46.3); Red Blood Count 3.89 Miln/mm3 (4.00-5.20); White Blood Count 10.7 Thou/mm3 (3.6-11.0)
[2025-03-14 22:02] LABS: HCG,Qualitative Serum Negative
[2025-03-14 22:05] LABS: Alanine Aminotransferase 11 U/L (10-49); Albumin, Serum 4.9 gm/dL (3.5-5.0); Albumin/Globulin Ratio 1.5 (1.2-2.2); Alkaline Phosphatase 120 U/L (46-116); Amylase 57 U/L (30-118); Anion Gap 13 (7-16); Aspartate Amino Transferase 17 U/L (0-34); BUN/Creatinine Ratio 9 Ratio (12-20); Bilirubin,Direct < 0.1 mg/dL (0.0-0.3); Bilirubin,Total 0.3 mg/dL (0.3-1.2); Blood Urea Nitrogen 13 mg/dL (9-23); Calcium 9.6 mg/dL (8.3-10.6); Calcium (Corrected) 9.6 mg/dL (8.5-10.1); Carbon Dioxide 19.9 mMol/L (20.0-31.0); Chloride 104 mMol/L (98-107); Creatinine (Component) 1.4 mg/dL (0.6-1.3); Estimated Creatinine Clearance 49.6 mL/min (>60); Globulin 3.2 gm/dL (2.3-3.5); Glucose 239 mg/dL (74-106); Lipase 42 U/L (12-53); Magnesium 1.5 mg/dL (1.6-2.6); Osmolality,Calculated 281 (275-295); Potassium 3.9 mMol/L (3.4-5.1); Sodium 137 mMol/L (136-145); Total Protein 8.1 gm/dL (5.7-8.2); eGFR 48 See Note
[2025-03-14] MEDS: Magnesium Sulfate 2 GM Ivpb 2 GM/50 ML BAG IV (22:25)
[2025-03-14 22:45] LABS: Collection Type, Urine Clean Catch; Squamous Epithelial Cell,Urine 0 /hpf (0-5)
[2025-03-14 22:52] LABS: Bilirubin,Urine Negative (Negative); Blood,Urine Trace (Negative); Clarity,Urine Clear (Clear/Hazy); Color,Urine Colorless (Lt Yel-Yel); Glucose, Urine 2+ (Negative); Hyaline Casts,Urine < 1 /hpf (0-1); Ketones,Urine Negative (Negative); Leukocyte Esterase,Urine Positive (Negative); Nitrite,Urine Positive (Negative); PH,Urine 6.5 (5.0-7.0); Protein,Urine 2+ (Neg - Trace); RBC,Urine 2 /hpf (0-3); Specific Gravity,Urine 1.013 (1.001-1.035); Urobilinogen,Urine Negative mg/dL (0.0-1.0); WBC,Urine 11 /hpf (0-5)
[2025-03-14 22:56] VITALS: BP 196/113; PULSE 70
[2025-03-14 23:01] LABS: Culture Indicated,Urine Yes
--- NOTE | 2025-03-14 23:30 | PD.GYNCONS ---
BICYCLE TECHNICIAN HPI Data of Consult Primary Care Provider: Stan Cedillo MD Consult Narrative History of present illness: Back pain ongoing for the last few months, rectal pain Patient is a 44-year-old female with a complex medical history including end-stage renal disease on dialysis, bilateral nephrostomy tubes, insulin-dependent type 2 diabetes, valley fever, and a non-malignant bladder mass who presents to the emergency room with back pain. The patient's primary complaint is back pain that has been ongoing for the last few months. She has had multiple recent emergency department visits for the same complaint, including visits on 03-13, 03-08, and 03-04, all for similar complaints. In addition to back pain, she has been experiencing rectal pain and other associated complaints during these painful episodes. Her recent medical history is significant for a multidrug-resistant multiorganism UTI in January 2024 that required admission and infectious disease consultation with empiric treatment. She underwent bladder biopsy by urology in December 2024 for a non-malignant bladder mass. She has bilateral hydronephrosis status post bilateral nephrostomy tube placement that occurred at the end of November 2024. Medical History: - End-stage renal disease on dialysis - Bilateral hydronephrosis, status post bilateral nephrostomy tube placement in November 2024 - Insulin-dependent type 2 diabetes mellitus - Valley fever - Non-malignant bladder mass, biopsied in December 2024 - Multidrug-resistant multiorganism urinary tract infection requiring admission in January 2024 - Multiple emergency room visits for back pain and rectal pain (March 04, , and 2024) Surgical History: - Bilateral nephrostomy tube placement at the end of November 2024 - Bladder mass biopsy by urology in December 2024, ruled out cancer - CT scan with IV contrast (chest, abdomen, pelvis) (03-14-2025): No thoracic abnormality, pulmonary masses right upper lobe 23 mm, right lower lobe 23 mm, no pneumonia or pulmonary edema, no visualized liver or splenic lesion, gallstones present, no pancreatic or adrenal mass, bilateral percutaneous nephrostomy tubes in satisfactory position without hydronephrosis, 1-2 mm bilateral renal calculi, subcentimeter abdominal pelvic lymphadenopathy, appendix thickened with possible minimal periappendiceal inflammatory change, no bowel obstruction, hyperdensities in lower endometrial canal especially in cervix, bladder intact, advanced degenerative disc disease L5-S1 - Transvaginal ultrasound (03-13-2025): Uterus 6.2 cm with cervical mass 19 x 15 x 24 mm with calcification, ovaries obscured by bowel gas, calcified cervical mass - Chest X-ray (03-13-2025): Pulmonary nodules consistent with CT scan findings - CT scan (03-13-2025): Same findings as 03/14/2025 - Renal ultrasound (02-23-2025): Moderate scarring, no significant hydronephrosis, sediment in bladder - CT scan (02-13-2025): Similar findings as above - CT scan (01-28-2025): Same findings as above - Pelvic MRI (12-18-2024): Dilated ureters extending to bladder, consider vesico-ureteral reflux, no uterine or adnexal mass, no pelvic lymphadenopathy - Bladder biopsy (December 2024): Non-malignant bladder mass, ruled out cancer cc:: cc: Meds Home Medications and Allergies Allergies Allergy/AdvReac Type Severity Reaction Status Date / Time No Known Allergies Allergy Verified 03/14/25 20:43 Exam - BICYCLE TECHNICIAN Vital Signs Temp Pulse Resp BP Pulse Ox O2 Del Method 97.6 F 70 19 196/113 H 99 Room Air 03/14/25 21:28 03/14/25 22:56 03/14/25 21:28 03/14/25 22:56 03/14/25 21:28 03/14/25 21:28 Constitutional Constitutional: no acute distress Routine HEENT Exam Head: Present normocephalic and atraumatic Eye: Present EOMI and PERRL ENT: Present mucous membranes moist Routine Neck Exam Neck: Present supple and trachea midline Routine Respiratory Exam Respiratory: Present chest non-tender, lungs clear, normal breath sounds and no resp distress Routine Cardiovascular Exam Cardiovascular: Present RRR Routine Abdominal Exam Abdominal: Present soft and normoactive bowel sounds Routine Extremities Exam Extremities: Present full ROM Routine Skin Exam Skin: Present intact and dry Routine Neurological Exam Neurological: Present alert, oriented X3 and CN II-XII intact Routine Psychiatric Exam Psychiatric: Present normal affect and normal thought process BICYCLE TECHNICIAN - Results Labs 03/14/25 21:33 03/14/25 21:33 Labs: Short CBC 03/14/25 Range/Units 21:33 WBC 10.7 (3.6-11.0) Thou/mm3 Hgb 10.4 L (12.0-16.0) g/dL Hct 31.0 L (36.0-46.0) % Plt Count 501 H (140-440) Thou/mm3 BMP 03/14/25 21:33 Sodium 137 Potassium 3.9 Chloride 104 Carbon Dioxide 19.9 L BUN 13 Creatinine 1.4 H Glucose 239 H Calcium 9.6 Liver Function 03/14/25 Range/Units 21:33 Total Bilirubin 0.3 (0.3-1.2) mg/dL Direct Bilirubin < 0.1 (0.0-0.3) mg/dL AST 17 (0-34) U/L ALT 11 (10-49) U/L Alkaline Phosphatase 120 H (46-116) U/L Albumin 4.9 (3.5-5.0) gm/dL Urine 03/14/25 Range/Units 22:27 Urine Color Colorless A (Lt Yel-Yel) Urine Clarity Clear (Clear/Hazy) Urine pH 6.5 (5.0-7.0) Ur Specific [place] 1.013 (1.001-1.035) Urine Protein 2+ A (Neg - Trace) Urine Glucose (UA) 2+ A (Negative) Assessment and Plan Assessment and plan (1) Intractable abdominal pain: Status: Acute (2) Abdominal pain: Status: Acute (3) Pain, rectal: Status: Acute (4) Pelvic mass: Status: Acute Assessment and plan: Cervical mass CT scan shows hyperdensities in the lower endometrial canal, especially in the cervix. Transvaginal ultrasound revealed a calcified cervical mass measuring 19 by 15 by 24 millimeters with calcification. However, findings are not consistent with usual presentation of cervical carcinoma. Previous pelvic MRI from one month ago showed no abnormal findings in uterus and cervix. The mass/calcification noted on current CT scan could be secondary to calcification/change in the bladder status post nephrostomy tube placement. Urologist performed bladder biopsy which ruled out cancer. Plan: - To conclusively rule out neoplasm of cervical origin, patient will require examination under anesthesia and biopsy of the cervix and possible hysteroscopic guided endometrial biopsy - [employer] SET UP MECHANIC team available to consult or set up for biopsy if primary team deems indicated Pulmonary nodules CT scan of chest shows right upper lobe 23 millimeter and right lower lobe 23 millimeter pulmonary masses. No pneumonia or pulmonary edema identified. Chest x-ray corroborated the same pulmonary nodules seen on CT scan. End-stage renal disease Patient is on dialysis with bilateral percutaneous nephrostomy tubes in satisfactory position without hydronephrosis. CT shows 1-2 millimeter bilateral renal calculi. Renal ultrasound shows moderate scarring with no significant hydronephrosis and sediment in bladder. History of bilateral hydronephrosis status post bilateral nephrostomy tube placement. Back pain Patient presents with chronic back pain ongoing for several months with multiple recent emergency department visits. CT imaging reveals advanced degenerative disc disease at L5-S1. Patient has complex medical history including end-stage renal disease with bilateral nephrostomy tubes, insulin-dependent type 2 diabetes, history of valley fever, and previous multidrug-resistant multiorganism UTI requiring infectious disease consultation.
--- NOTE | 2025-03-14 23:52 | ESHP_ITS ---
Documentation for date of: 03/14/25 [facility] History of Present Illness History of present illness: Ms. Cedillo is a 44 y/o female with PMH cervical mass, non-malignant bladder mass, b/l hydronephrosis s/p b/l nephrostomy tube, recurrent MDRO UTIs, T2DM, coccidioidomycosis who presented to the ED on 03/14 with suprapubic and b/l low back pain. Patient has had multiple ED visits for similar chief complaint of pain. Pain is stabbing in nature, 03/06 at max. Morphine relieves symptoms for only a few minutes, better pain coverage with Dilaudid per patient. Associated with rectal pain, constipation, as she has been taking opioids for pain management at home. Denies headache, acute changes in vision, chest pain/pressure, dysuria, urinary frequency and urgency. Of note, patient recently had a transvaginal US 03/13/25 that showed cervical mass 19 x 15 x 24 mm with calcification, ovaries obscured by bowel gas, calcified cervical mass. CT in November showed cavitary lesion right middle lobe 22- 23 mm, nodule anterior right lower lobe, precedes imaging reporting cervical mass. Pelvic MRI 12/18/24 showed no pelvic lymphadenopathy. ED course: Afebrile, tachypneic to 22, BP 194/99 --> max 201/97. Labs significant for hgb 10.4, HCT 31, plt 501, bicarb 19.9, Cr 1.4, glucose 239, alk phos 120, Mg 1.5. UA 2+ protein, 2+ glucose, 11 WBC, +LE, + nitrite. CT c/a/p showed pulmonary masses right upper lobe 23 mm, right lower lobe 23 mm, cholelithiasis, bilateral percutaneous nephrostomy tubes in satisfactory position without hydronephrosis, 1-2 mm bilateral renal calculi, sub-centimeter abdominal pelvic lymphadenopathy, appendix thickened with possible minimal roman- appendiceal inflammatory change, no bowel obstruction, hyperdensities in lower endometrial canal especially in cervix, advanced degenerative disc disease L5- S1. Given clonidine 0.3 mg PO, Mg sulfate 2g IV, 1L NS, Zofran 4 mg IV, Morphine 6 mg IV, Ceftriaxone 1 g IV. PMHx: cervical mass, non-malignant bladder mass, b/l hydronephrosis s/p b/l nephrostomy tube, ESRD on HD, recurrent MDRO UTIs, T2DM, coccidioidomycosis, external hemorrhoids Allergies: NKDA Home meds: pending med rec SgHx: Bladder bx (December 2024), b/l nephrostomy tubes (November 2024) SHx: Denies smoking, EtOH, recreational drug use. FHx: no hx cancer; mother - T2DM Review of Systems Review of Systems Narrative Review of Systems: 14 point ROS negative other than HPI Exam Vital Signs Temp Pulse Resp BP Pulse Ox O2 Del Method 97.6 F 70 19 196/113 H 99 Room Air 03/14/25 21:28 03/14/25 22:56 03/14/25 21:28 03/14/25 22:56 03/14/25 21:28 03/14/25 21:28 Narrative Exam General: Acute distress, tearful Eye: PERRL, EOMI, normal conjunctiva, no scleral icterus HENT: Normocephalic, atraumatic, normal hearing, moist oral mucosa Neck: Supple, non-tender, no JVD, no lymphadenopathy Lungs: Clear to auscultation bilaterally, non-labored respirations, symmetric chest rise, no use of accessory muscles Heart: Normal S1 and S2, no S3 or S4 appreciated. Normal rate and regular rhythm, no murmurs, rubs gallops, or edema. Peripheral pulses intact bilaterally, capillary refill brisk distally Abdomen: Soft, nondistended, TTP suprapubic and LLQ, no TTP RLQ, negative McBurney's point, no rebound tenderness Musculoskeletal: Normal range of motion and strength, TTP around b/l nephrostomy tubes Skin: Skin is warm, dry, no rashes or lesions. b/l nephrostomy tubes in place Neurologic: Alert, awake and oriented x3. CN II-XII grossly intact. No focal neuro deficits. No signs of meningeal irritation noted. Psychiatric: Cooperative, appropriate mood and affect Results: Labs 03/15/25 04:51 03/15/25 04:51 Labs: Short CBC 03/14/25 Range/Units 21:33 WBC 10.7 (3.6-11.0) Thou/mm3 Hgb 10.4 L (12.0-16.0) g/dL Hct 31.0 L (36.0-46.0) % Plt Count 501 H (140-440) Thou/mm3 BMP 03/14/25 21:33 Sodium 137 Potassium 3.9 Chloride 104 Carbon Dioxide 19.9 L BUN 13 Creatinine 1.4 H Glucose 239 H Calcium 9.6 Liver Function 03/14/25 Range/Units 21:33 Total Bilirubin 0.3 (0.3-1.2) mg/dL Direct Bilirubin < 0.1 (0.0-0.3) mg/dL AST 17 (0-34) U/L ALT 11 (10-49) U/L Alkaline Phosphatase 120 H (46-116) U/L Albumin 4.9 (3.5-5.0) gm/dL Urine 03/14/25 Range/Units 22:27 Urine Color Colorless A (Lt Yel-Yel) Urine Clarity Clear (Clear/Hazy) Urine pH 6.5 (5.0-7.0) Ur Specific [place] 1.013 (1.001-1.035) Urine Protein 2+ A (Neg - Trace) Urine Glucose (UA) 2+ A (Negative) Quality Measures Quality Measures none Medications Home Medications and Allergies Allergies Allergy/AdvReac Type Severity Reaction Status Date / Time No Known Allergies Allergy Verified 03/14/25 20:43 Visit Medications Acetaminophen (Acetaminophen 325 Mg Tablet) 650 mg PO Q6H PRN PRN Reason: Fever >100.3 Stop: 04/13/25 23:44 Acetaminophen (Acetaminophen 325 Mg Tablet) 650 mg PO Q6H PRN PRN Reason: PAIN SCALE 1-3 (mild Stop: 04/13/25 23:44 Heparin Sodium (Porcine) (Heparin Sod Inj 5000 Unit/Ml Vial) 5,000 unit SC Q8HR JESSE Stop: 03/28/25 23:44 Hydromorphone HCl (Hydromorphone Inj 2 Mg/Ml Vial) 2 mg IVP Q6H PRN PRN Reason: Pain 4-8 Stop: 03/19/25 23:44 Hydromorphone HCl (Hydromorphone Inj 2 Mg/Ml Vial) 1 mg IVP Q2H PRN PRN Reason: Breakthrough Pain Stop: 03/19/25 23:44 Magnesium Sulfate (Magnesium Sulfate Ivpb) 2 gm in 50 mls @ 25 mls/hr IV X1 ONE Stop: 03/15/25 00:15 Last Admin: 03/14/25 22:25 Dose: 25 mls/hr Ceftriaxone Sodium/Dextrose (Rocephin/D5w 1gm Iv Premix) 50 mls @ 100 mls/hr IV X1 ONE Stop: 03/14/25 23:31 Ondansetron HCl (Ondansetron Inj 2 Mg/Ml Inj 2 Ml) 4 mg IVP Q6H PRN; Protocol PRN Reason: NAUSEA OR VOMITING Stop: 04/13/25 23:44 Discontinued Medications Clonidine (Clonidine Hcl 0.1 Mg Tablet) 0.3 mg PO X1 ONE Stop: 03/14/25 22:50 Last Admin: 03/14/25 22:56 Dose: 0.3 mg Sodium Chloride (Ns) 1,000 mls @ 999 mls/hr IV .Q1H1M ONE Stop: 03/14/25 22:03 Last Admin: 03/14/25 21:31 Dose: 999 mls/hr Ceftriaxone Sodium/Dextrose (Rocephin/D5w 1gm Iv Premix) 1 gm in 50 mls @ 100 mls/hr IV X1 ONE Stop: 03/14/25 21:32 Last Infusion: 03/14/25 22:00 Dose: Infused Morphine Sulfate (Morphine Sulf Inj 4 Mg/Ml Vial) 6 mg IV X1 ONE Stop: 03/14/25 21:04 Last Admin: 03/14/25 21:29 Dose: 6 mg Ondansetron HCl (Ondansetron Inj 2 Mg/Ml Inj 2 Ml) 4 mg IVP X1 ONE; Protocol Stop: 03/14/25 21:04 Last Admin: 03/14/25 21:30 Dose: 4 mg Assessment & Plan Plan Ms. Cedillo is a 44 y/o female with PMH cervical mass, non-malignant bladder mass, b/l hydronephrosis s/p b/l nephrostomy tube, recurrent MDRO UTIs, T2DM, coccidioidomycosis who presented to the ED on 03/14 with suprapubic and b/l low back pain. Admitted for HTN urgency vs emergency, MDRO UTI, pain management. #Hypertension urgency vs emergency #Hx HTN Max BP in ED: 201/97. Given clonidine 0.3 mg PO in ED. Denies headache, acute changes in vision, chest pain/pressure, shortness of breath May be exacerbated by uncontrolled pain End organ damage: SAPPHIRE Given clonidine 0.3 mg PO in ED Plan: - Labetalol 10 mg IV x1 - Continue to monitor with tele - Pain management as below - Amlodipine 10 mg PO daily (home med) - Carvedilol 25 mg PO BID (home med) #UTI #Hx recurrent MDRO UTIs Hx recurrent UTIs, previously grew E coli, Stenotrophomas maltophilia, Enterobacter cloacae, Pseudo fluorescens/putida Denies urinary sx, afebrile, no leukocytosis UA showed 2+ protein, 2+ glucose, 11 WBC, +LE, +nitrites Given Ceftriaxone 1g in ED Plan: - TMP/SMX 160/800 mg PO BID - Pending urine cx #SAPPHIRE on CKD #B/L hydronephrosis s/p b/l nephrostomy tube placement (November 2024) On admit: BUN 13, Cr 1.4, eGFR 48 Renal scarring on imaging, previously had no renal function and required HD prior to nephrostomy tube placement Pelvic MRI (12-18-2024): Dilated ureters extending to bladder, consider vesico- ureteral reflux, no uterine or adnexal mass, no pelvic lymphadenopathy Renal ultrasound (02-23-2025): Moderate scarring, no significant hydronephrosis, sediment in bladder Patient previously was on HD in November-January 2025. No longer on HD. Follows with Dr. Pablo in [place]. Makes urine. Given 1L NS in ED Plan: - CTM with daily BMP #Cervical mass 19 x [address] c/a/p (03-14-2025): subcentimeter abdominal pelvic lymphadenopathy (not seen on previous imaging), hyperdensities in lower endometrial canal especially in cervix Transvaginal ultrasound (03-13-2025): Uterus 6.2 cm with cervical mass 19 x 15 x 24 mm with calcification, ovaries obscured by bowel gas, calcified cervical mass Plan: - Consulted OBGYN, appreciate recs. NPO for possible cervical biopsy - Consulted oncology, appreciate recs #Suprapubic pain #B/L low back pain Requiring multiple ED for pain control Takes multiple opioids at home without adequate pain control DDX: UTI/pyelonephritis, cervical mass, advanced degenerative disc disease L5-S1 Plan: - Pain management: Tylenol 650 mg PO q6h, Dilaudid 2 mg IV q6h PRN, Dilaudid 1 mg IV q4h PRN breakthrough pain - See above for management of UTI #T2DM Plan: - SSI #Coccidioidomycosis CT c/a/p (03-14-2025): Pulmonary masses right upper lobe 23 mm, right lower lobe 23 mm, no pneumonia or pulmonary edema Afebrile, no pulm sx at this time Plan: - CTM #Constipation 2/2 chronic opioids use Plan: - Doc/senna daily jesse #Non-malignant bladder mass Bladder biopsy (December 2024): Non-malignant bladder mass, ruled out cancer Plan: - CTM Checklist Dispo: Admit to tele for cardiac monitoring, consulted OBGYN, oncology Diet: NPO Bowel Reg: doc/senna daily jesse VTE ppx: heparin subQ GI ppx: none Pain mgmt: Tylenol 650 mg PO q6h, Dilaudid 2 mg IV q6h PRN, Dilaudid 1 mg IV q4h PRN breakthrough pain Code status: full Plan discussed with Dr. Maldonado and Dr. Omi Byrd MD PGY1 Attending Provider Attestation/Addendum 45-year-old female patient with cervical tumor being followed at [facility]. The patient has bilateral nephrostomy tube with good amount of clear urine draining no hematuria. The patient presented with severe lower abdominal suprapubic pain and back pain. The patient also was found to have uncontrolled blood pressure. She has been afebrile. She has previous MDRO UTI. She has abnormal CT scan of the abdomen findings with enlarged appendix. White count is normal. Patient will need reassessment and may require further surgical evaluation. I discussed with and supervised the resident physician who took care of this patient. I agree with the assessment and plan as above.
[2025-03-15] VITALS (11 sets, daily range): BP systolic 127–183; BP diastolic 74–84; PULSE 57–90; RESP 15–22; TEMP 36.1–36.9; O2SAT 95–99; BMI 29.7
[2025-03-15] MEDS: LABETALOL INJ 5 MG/ML VIAL 20 ML 10 MG IVP (00:09)
[2025-03-15] MEDS: HYDROmorphone INJ 2 MG/ML VIAL IVP ×4 (00:15→21:43)
[2025-03-15] MEDS: TRIMETHOPRIM/SULFA 160/800 DS TABLET 1 TAB PO ×3 (00:41→20:16)
[2025-03-15] MEDS: INSULIN LISPRO (AdmeLOG) 1 UNIT/0.01 ML UNIT SC ×4 (00:42→17:29)
[2025-03-15 05:11] LABS: Basophils # (Auto) 0.1 Thou/mm3 (0.0-0.2); Basophils % (Auto) 1 % (0-2.5); Eosinophils # (Auto) 0.4 Thou/mm3 (0.0-0.5); Eosinophils % (Auto) 4 % (0-10); Hematocrit 26.8 % (36.0-46.0); Hemoglobin 9.1 g/dL (12.0-16.0); Immature Granulocytes Auto 0.04 Thou/mm3 (0.00-0.00); Lymphocytes # (Auto) 2.6 Thou/mm3 (1.0-4.8); Lymphocytes % (Auto) 30 % (10-50); Mean Corpuscular HGB Conc 34.0 g/dl (31.0-37.0); Mean Corpuscular Hemoglobin 27.4 pg (25.0-35.0); Mean Corpuscular Volume 81 fL (80-100); Monocytes # (Auto) 0.6 Thou/mm3 (0.0-0.8); Monocytes % (Auto) 7 % (0-12); Neutrophils # (Auto) 5.0 Thou/mm3 (1.8-7.7); Neutrophils % (Auto) 58 % (37-80); Nucleated Red Blood Cell # 0.00 Thou/mm3 (0.00-0.00); Nucleated Red Blood Cell % 0 /100 WBC (0); Platelet Count 410 Thou/mm3 (140-440); RDW Standard Deviation 49.7 fL (36.4-46.3); Red Blood Count 3.32 Miln/mm3 (4.00-5.20); White Blood Count 8.6 Thou/mm3 (3.6-11.0)
[2025-03-15 05:22] LABS: INR 1.0 (0.9-1.3); Prothrombin Time 10.4 Seconds (9.0-12.2)
[2025-03-15 05:28] LABS: Anion Gap 11 (7-16); BUN/Creatinine Ratio 8 Ratio (12-20); Blood Urea Nitrogen 10 mg/dL (9-23); Calcium 8.5 mg/dL (8.3-10.6); Carbon Dioxide 21.5 mMol/L (20.0-31.0); Chloride 108 mMol/L (98-107); Creatinine (Component) 1.2 mg/dL (0.6-1.3); Estimated Creatinine Clearance 57.8 mL/min (>60); Glucose 179 mg/dL (74-106); Magnesium 2.1 mg/dL (1.6-2.6); Osmolality,Calculated 282 (275-295); Phosphorous 4.7 mg/dL (2.4-5.1); Potassium 3.8 mMol/L (3.4-5.1); Sodium 140 mMol/L (136-145); eGFR 58 See Note
[2025-03-15] MEDS: HEPARIN SOD INJ 5000 UNIT/ML VIAL SC ×2 (05:55→14:22)
--- NOTE | 2025-03-15 07:27 | PC.CC ---
Patient is a 44 year-old female who presents to the hospital for HTN Emergency VS Urgency, Uncontrolled pain. TRACTOR DRILL OPERATOR, Twila made [id number] contact with patient introduced self, role, and reason for visit. Patient appeared alert and oriented to self, location, and situation. TRACTOR DRILL OPERATOR, discussed limits of confidentiality. Patient made appropriate eye contact and engaged in initial assessment. ? Patient confirmed information on demographics and reports to living with her children. She reports her medical decision maker in the event she is unable to make her own medical decisions her decision maker is Renay Dowd . At home patient ambulate with a wheelchair as needed and is able to complete her own ADLs. Patient's primary provider is Stan Cedillo and her pharmacy is [facility]. Patient disclosed that about a month ago she stopped receiving Dialysis. She does not use other DME while at home. Upon discharge patient plans to return home. tax services professional to follow up with any discharge needs.
--- NOTE | 2025-03-15 09:00 | PC.NURSE ---
PT ARRIVED TO FLOOR
[2025-03-15] MEDS: SENNA/DOCUSATE SOD 1 TAB TABLET PO (09:12)
--- NOTE | 2025-03-15 14:23 | ESCONSULT_ITS ---
HPI Data of Consult Requesting Physician: Santi Braga MD Primary Care Provider: Stan Cedillo MD Consult Narrative Reason for consult: Suspected malignancy in pelvis and lung History of present illness: Patient with history of diabetes mellitus and end-stage renal disease on dialysis history of cocci placed on antifungals over a year ago but reportedly with active disease again. Came in with back pain and CT chest abdomen pelvis revealed pulmonary masses both right upper lobe and right lower lobe with subcentimeter abdominal pelvic lymphadenopathy. Bilateral nephrostomy tubes noted. There was also a linear hyperdense small mass in the cervix and ultrasound of pelvis revealing calcified cervical mass 19 x 15 x 24 mm. Which has been evaluated by Dr. Lopez of [facility] and biopsy is considered. Ultrasound the gallbladder revealed cholelithiasis negative for cholecystitis. Labs reveal mild anemia of 9.1 hemoglobin elevated glucose and low eGFR and creatinine clearance. Patient had negative TURBT 12/24/2024 investigation of bladder mass. Patient now referred for oncological consultation. cc:: cc: Santi Braga MD Past Medical History Family History OTHER FAMILY HX: No family history of cancer diabetes in family Past Medical History Comments PMH COMMENT: History of diabetes with end-stage renal disease on dialysis. History of cocci over a year reportedly still with active disease and needing to be treated again. Prior bladder and renal biopsies negative for malignancy. Meds Home Medications and Allergies Allergies Allergy/AdvReac Type Severity Reaction Status Date / Time No Known Allergies Allergy Verified 03/14/25 20:43 Exam Vital Signs Temp Pulse Resp BP Pulse Ox O2 Del Method 97.0 F 90 18 150/74 H 98 Room Air 03/15/25 12:00 03/15/25 12:00 03/15/25 12:00 03/15/25 12:00 03/15/25 12:00 03/15/25 12:00 Narrative Exam Patient lying in no acute distress appearing comfortable Results Labs 03/15/25 04:51 03/15/25 04:51 Labs: Short CBC 03/14/25 03/15/25 Range/Units 21:33 04:51 WBC 10.7 8.6 (3.6-11.0) Thou/mm3 Hgb 10.4 L 9.1 L (12.0-16.0) g/dL Hct 31.0 L 26.8 L (36.0-46.0) % Plt Count 501 H 410 D (140-440) Thou/mm3 BMP 03/14/25 03/15/25 21:33 04:51 Sodium 137 140 Potassium 3.9 3.8 Chloride 104 108 H Carbon Dioxide 19.9 L 21.5 BUN 13 10 Creatinine 1.4 H 1.2 Glucose 239 H 179 H D Calcium 9.6 8.5 Liver Function 03/14/25 Range/Units 21:33 Total Bilirubin 0.3 (0.3-1.2) mg/dL Direct Bilirubin < 0.1 (0.0-0.3) mg/dL AST 17 (0-34) U/L ALT 11 (10-49) U/L Alkaline Phosphatase 120 H (46-116) U/L Albumin 4.9 (3.5-5.0) gm/dL Urine 03/14/25 Range/Units 22:27 Urine Color Colorless A (Lt Yel-Yel) Urine Clarity Clear (Clear/Hazy) Urine pH 6.5 (5.0-7.0) Ur Specific [place] 1.013 (1.001-1.035) Urine Protein 2+ A (Neg - Trace) Urine Glucose (UA) 2+ A (Negative) Assessment and Plan Additional Assessment & Plan Additional Plan: 1. Cervical mass noted on CT and ultrasound. Evaluated by [facility] Dr. Lopez. Biopsy being considered. 2. 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 Reportedly active again after prior treatment. Right upper lobe nodule appears new and needs to be followed closely. 3. Ordered common tumor markers for patient's age and gender. 4. Multiple comorbidities in this unfortunate young patient including hypertension diabetes end-stage renal disease chronic pain on dialysis.
--- NOTE | 2025-03-15 15:13 | ESPR_ITS ---
Documentation for date of: 03/15/25 Subjective Subjective Interval history: No acute events. Patient seen examined at bedside. Patient reports suprapubic pain with pain medication. States has history of cervical cancer in which she received laser therapy in 2019 however no follow-up. Denies any flank pain at this time however did have flank pain yesterday in which she visited the ED for and was discharged with TMP-SMX. Patient reports not producing any urine. Vitals labs reviewed. SBP 160-200. Hemoglobin decreased from 10.4-9.1 now likely dilutional. Creatinine improved from 1.4 to 1.2 following fluids. UA positive for 2+ protein 2+ glucose 11 WBC positive leukocyte esterase. Plan for cervical biopsy tomorrow by Dr. Lopez, n.p.o. at midnight. Continue home antihypertensive amlodipine and carvedilol, will adjust medication following biopsy. Continue TMP/SMX. Started degludec 15 units, along with SSI, as patient reports taking 30 units of degludec with 5 units of short acting with meals. Oncology consulted. Exam Vital Signs Temp Pulse Resp BP Pulse Ox O2 Del Method 97.0 F 90 18 150/74 H 98 Room Air 03/15/25 12:00 03/15/25 12:00 03/15/25 12:00 03/15/25 12:00 03/15/25 12:00 03/15/25 12:00 Narrative Exam GENERAL: AOx3, no acute distress HEENT: mucous membranes moist, bilateral sclera anicteric CARDIOVASCULAR: regular rate and rhythm, S1/S2 present, no murmurs appreciated PULMONARY: clear to auscultation bilaterally, no rales/rhonchi/wheezes ABDOMINAL: soft, non-distended, no rebound/guarding, bowel sounds present, TTP suprapubic and L and R lower quadrants EXTREMITIES: no peripheral edema SKIN: warm and dry, intact, no rashes, b/l nephrostomy tubes in place, not TTP NEURO: CN II-XII grossly intact, no focal deficits, alert, following commands Objective Labs 03/16/25 05:44 03/16/25 05:44 Labs: Laboratory Results - last 24 hr 03/14/25 03/14/25 03/15/25 21:33 22:27 04:51 WBC 10.7 8.6 RBC 3.89 L 3.32 L Hgb 10.4 L 9.1 L Hct 31.0 L 26.8 L MCV 80 81 MCH 26.7 27.4 MCHC 33.5 34.0 RDW Std Deviation 47.1 H 49.7 H Plt Count 501 H 410 D Neut % (Auto) 68 58 Lymph % (Auto) 23 30 [place] % (Auto) 5 7 Eos % (Auto) 3 4 Baso % (Auto) 1 1 Neut # (Auto) 7.3 5.0 Lymph # (Auto) 2.5 2.6 [place] # (Auto) 0.5 0.6 Eos # (Auto) 0.3 0.4 Baso # (Auto) 0.1 0.1 Immature Gran # (Auto) 0.04 H 0.04 H Absolute Nucleated RBC 0.00 0.00 Immature Gran % 0 1 H Nucleated RBC % 0 0 PT 10.4 INR 1.0 Sodium 137 140 Potassium 3.9 3.8 Chloride 104 108 H Carbon Dioxide 19.9 L 21.5 Anion Gap 13 11 BUN 13 10 Creatinine 1.4 H 1.2 Estim Creat Clear Calc 49.6 L 57.8 L eGFR 48 L 58 L BUN/Creatinine Ratio 9 L 8 L Glucose 239 H 179 H D Calculated Osmolality 281 282 Calcium 9.6 8.5 Corrected Calcium 9.6 Phosphorus 4.7 Magnesium 1.5 L 2.1 Total Bilirubin 0.3 Direct Bilirubin < 0.1 AST 17 ALT 11 Alkaline Phosphatase 120 H Total Protein 8.1 Albumin 4.9 Globulin 3.2 Albumin/Globulin Ratio 1.5 Amylase 57 Lipase 42 HCG, Qual Negative Ur Collection Type Clean Catch Urine Color Colorless A Urine Clarity Clear Urine pH 6.5 Ur Specific [place] 1.013 Urine Protein 2+ A Urine Glucose (UA) 2+ A Urine Ketones Negative Urine Blood Trace Urine Nitrite Positive Urine Bilirubin Negative Urine Urobilinogen (Auto) Negative Ur Leukocyte Esterase Positive Urine RBC 2 Urine WBC 11 H Ur Squamous Epith Cells 0 Urine Bacteria None Hyaline Casts < 1 Ur Culture Indicated? Yes Quality Measures Quality Measures none Assessment & Plan Assessment Current Active Medications: Generic Name Dose Route Start Last Admin Trade Name Freq PRN Reason Stop Dose Admin Acetaminophen 650 mg 03/14/25 23:45 Acetaminophen 325 Mg Tablet PO 04/13/25 23:44 Q6H PRN Fever >100.3 Acetaminophen 650 mg 03/14/25 23:45 Acetaminophen 325 Mg Tablet PO 04/13/25 23:44 Q6H PRN PAIN SCALE 1-3 (mild Amlodipine Besylate 10 mg 03/15/25 09:00 03/15/25 09:11 Amlodipine Besylate 5 Mg Tablet PO 04/14/25 08:59 10 mg QDAY JESSE Administration Carvedilol 25 mg 03/15/25 08:00 03/15/25 09:11 Carvedilol 12.5 Mg Tablet PO 04/14/25 07:59 25 mg BIDWM JESSE Administration Dextrose 25 ml 03/15/25 00:24 Dextrose 50%-Water Inj 50 Ml Syringe IV 04/14/25 00:23 Q15MIN PRN BG 50-70 responsive npo pt Dextrose 50 ml 03/15/25 00:24 Dextrose 50%-Water Inj 50 Ml Syringe IV 04/14/25 00:23 Q15MIN PRN BG <50 OR BG <70 & pt unresponsive Glucagon 1 mg 03/15/25 00:24 Glucagon Inj 1 Mg Vial IM Q15MIN PRN BG <70, and no IV access Heparin Sodium (Porcine) 5,000 unit 03/15/25 06:00 03/15/25 14:22 Heparin Sod Inj 5000 Unit/Ml Vial SC 03/29/25 05:59 5,000 unit Q8HR JESSE Administration Hydromorphone HCl 2 mg 03/14/25 23:53 03/15/25 09:12 Hydromorphone Inj 2 Mg/Ml Vial IVP 03/19/25 23:44 2 mg Q6H PRN Administration Pain 4-10 Hydromorphone HCl 1 mg 03/15/25 00:18 Hydromorphone Inj 2 Mg/Ml Vial IVP 03/19/25 23:44 Q4H PRN Breakthrough Pain Protocol Insulin Degludec 15 unit 03/16/25 09:00 Insulin Degludec 5 Unit/0.05 Ml (Per 5 Units) SC 04/15/25 08:59 QDAY JESSE Insulin Human Lispro 0 unit 03/15/25 00:30 03/15/25 12:05 Insulin Lispro (Admelog) 1 Unit/0.01 Ml Unit SC 04/14/25 00:29 1 unit Q6H JESSE Administration Protocol Ondansetron HCl 4 mg 03/14/25 23:45 Ondansetron Inj 2 Mg/Ml Inj 2 Ml IVP 04/13/25 23:44 Q6H PRN NAUSEA OR VOMITING Protocol Sennosides 1 tab 03/15/25 09:00 03/15/25 09:12 Senna/Docusate Sod 1 Tab Tablet PO 04/14/25 08:59 1 tab QDAY JESSE Administration Protocol Trimethoprim/Sulfamethoxazole 1 tab 03/15/25 00:30 03/15/25 09:12 Trimethoprim/Sulfa 160/800 Ds Tablet PO 03/22/25 00:29 1 tab BID JESSE Administration Plan Kacy Cedillo 44F PMH significant for cervical mass with hx of cervical cancer s/p laser therapy 2019, non-malignant bladder mass, b/l hydronephrosis s/p b/l nephrostomy tube 11/2024, recurrent MDRO UTIs, T2DM, hx of pulmonary coccidioidomycosis s/p treatment who presented to the ED on 03/14 with suprapubic and b/l low back pain. Admitted for HTN urgency vs emergency. #Cervical mass 19 x 15 x 24 mm #Suprapubic pain #Hx cervical cancer s/p laser therapy 2019 Reports cervical cancer in 2019 treated with laser therapy, no follow up post intervention. Periods are regular, not overtly painful. Requiring multiple ED for pain control. Takes multiple opioids at home without adequate pain control. 03/13 CT CAP: subcentimeter abdominal pelvic lymphadenopathy (not seen on previous imaging), hyperdensities in lower endometrial canal especially in cervix. Transvaginal ultrasound (03-13-2025): Uterus 6.2 cm with cervical mass 19 x 15 x 24 mm with calcification, ovaries obscured by bowel gas, calcified cervical mass On previous CTAP in 01/2025, calcified mass present but objectively smaller as not measured or mentioned in report. Plan: - Consulted OBGYN, appreciate recs: less likely cervical cancer given nature and timeline. Dr. Lopez will likely biopsy tomorrow, NPO after midnight - Consulted oncology, appreciate recs #B/L low back pain #B/L hydronephrosis s/p b/l nephrostomy tube placement (11/2024) #UTI #Hx recurrent MDRO UTIs Neph tubes placed 11/2024, was on HD 01/06/2025-02/19/2025. Follows Dr. Pablo in [place]. Hx recurrent UTIs, previously grew E coli, Stenotrophomas maltophilia, Enterobacter cloacae, Pseudo fluorescens/putida. In 11/2024 pathology report of renal biopsy shows ATN, chronic mild active AIN, secondary focal segmental glomerulosclerosis, diffuse diabetic glomerulosclerosis, arteriolosclerosis Denies urinary sx, afebrile, no leukocytosis. UA showed 2+ protein, 2+ glucose, 11 WBC, +LE, +nitrites. Patient reports not making urine so collection may be contaminated from nephrostomy bag. Visited ED 03/13 for suprapubic pain and dc with TMP/SMX. Pelvic MRI (12/18/2024): Dilated ureters extending to bladder, consider vesico- ureteral reflux, no uterine or adnexal mass, no pelvic lymphadenopathy Renal ultrasound (02-23-2025): Moderate scarring, no significant hydronephrosis, sediment in bladder DDX: UTI/pyelonephritis, cervical mass, advanced degenerative disc disease L5-S1 s/p ceftriaxone 1g and 1L NS in ED Plan: - CTM with daily BMP - Continue TMP/SMA 160/800 mg BID - F/u UCx - Pain management: Tylenol 650 mg PO q6h, Dilaudid 2 mg IV q6h PRN, Dilaudid 1 mg IV q4h PRN breakthrough pain #Hypertensive urgency #Hx HTN Per patient, takes antihypertensives, but BP at home still reads 180-190. Max BP in ED: 201/97. Denies headache, acute changes in vision, chest pain/pressure, shortness of breath. May be exacerbated by uncontrolled pain. s/p clonidine 0.3 mg PO in ED Plan: - Continue to monitor with tele - Pain management as below - Continue home amlodipine 10 mg QD and Carvedilol 25 mg PO BID - Do not plan to adjust or add antihypertensives at this time as patient is in significant pain and will undergo biopsy under sedation tomorrow #IDDM2 Reports taking long acting 30u and short acting 5u TID with meals. Blood sugars are well controlled per patient. 01/2025 a1c 6.0. Plan: - Degludac 15u - SSI #Coccidioidomycosis Reports previously has been treated. No further follow up. CT c/a/p (03-14-2025): Pulmonary masses right upper lobe 23 mm, right lower lobe 23 mm, no pneumonia or pulmonary edema Afebrile, no pulm sx at this time Plan: - CTM #Constipation 2/2 chronic opioids use Plan: - Doc/senna daily jesse #Non-malignant bladder mass Bladder biopsy (December 2024): Non-malignant bladder mass, ruled out cancer. Urothelial papilloma with chronic cystitis Plan: - CTM Hospital management: Lines: PIV Diet: carb consistent, NPO after midnight Bowel: senna/docusate QD GI prophylaxis: not indicated DVT prophylaxis: SCDs, hold heparin iso biopsy tomorrow Disposition: med tele, pending cervical biopsy tomorrow CODE STATUS: FULL CODE Plan of care discussed with attending Dr. Benjamin, and PGY-3 Dr. Kim. Francesca Orosco, DO PGY-1 Internal Medicine Attending Provider Attestation/Addendum I have seen and examined the patient. I was physically present for the [place] portions of the services provided including history, physical exam, diagnosis, treatment plans and orders. I agree with assessment and plan of care as documented by residents. No acute overnight events. Patient seen and examined at bedside. Continues to complain of lower abdominal pain. Blood pressure has been fluctuating. Lab results show stable kidney function, glucose level also stable. Oncology following the patient closely, awaiting cervical mass biopsy. Continues to be on antibiotics for UTI. Awaiting culture results. Continues to be on analgesic regimen. We will also continue with her home antihypertensives, sliding scale and insulin degludec, home fluconazole. Even though this this note was carefully revised there may still be minor errors in senior designer/art director due to voice recognition software. Sally Benjamin MD
[2025-03-15] MEDS: ONDANSETRON INJ 2 MG/ML INJ 2 ML 4 MG IVP (17:50)
[2025-03-15 19:42] LABS: CA 125 49.0 U/mL (<30.2); Carcinoembryonic Antigen 12.1 ng/mL (0.0-5.0)
[2025-03-15] MEDS: SCOPOLAMINE 1 MG TDSY TOP (21:39)
[2025-03-16] VITALS (7 sets, daily range): BP systolic 135–158; BP diastolic 60–75; PULSE 62–67; RESP 14–20; TEMP 36.1–36.5; O2SAT 96–98
--- NOTE | 2025-03-16 03:10 | ESCONSULT_ITS ---
Addendum Consultation Addendum Date of report being addended: 03/15/25 Narrative: As per consultation with Dr Lopez , patient does not need any immediate director compliance intervention today on 03/15/2025 The obgyn team will follow to assess the patient and need for EUA and biopsy as needed during the work week.
[2025-03-16] MEDS: HYDROmorphone INJ 2 MG/ML VIAL IVP (03:25)
[2025-03-16 07:03] LABS: Basophils # (Auto) 0.1 Thou/mm3 (0.0-0.2); Basophils % (Auto) 1 % (0-2.5); Eosinophils # (Auto) 0.4 Thou/mm3 (0.0-0.5); Eosinophils % (Auto) 4 % (0-10); Hematocrit 30.8 % (36.0-46.0); Hemoglobin 10.0 g/dL (12.0-16.0); Immature Granulocytes Auto 0.05 Thou/mm3 (0.00-0.00); Lymphocytes # (Auto) 2.1 Thou/mm3 (1.0-4.8); Lymphocytes % (Auto) 22 % (10-50); Mean Corpuscular HGB Conc 32.5 g/dl (31.0-37.0); Mean Corpuscular Hemoglobin 27.1 pg (25.0-35.0); Mean Corpuscular Volume 84 fL (80-100); Monocytes # (Auto) 0.6 Thou/mm3 (0.0-0.8); Monocytes % (Auto) 6 % (0-12); Neutrophils # (Auto) 6.2 Thou/mm3 (1.8-7.7); Neutrophils % (Auto) 66 % (37-80); Nucleated Red Blood Cell # 0.00 Thou/mm3 (0.00-0.00); Nucleated Red Blood Cell % 0 /100 WBC (0); Platelet Count 470 Thou/mm3 (140-440); RDW Standard Deviation 51.2 fL (36.4-46.3); Red Blood Count 3.69 Miln/mm3 (4.00-5.20); White Blood Count 9.4 Thou/mm3 (3.6-11.0)
[2025-03-16 07:35] LABS: Anion Gap 11 (7-16); BUN/Creatinine Ratio 8 Ratio (12-20); Blood Urea Nitrogen 12 mg/dL (9-23); Calcium 9.1 mg/dL (8.3-10.6); Carbon Dioxide 22.5 mMol/L (20.0-31.0); Chloride 105 mMol/L (98-107); Creatinine (Component) 1.5 mg/dL (0.6-1.3); Estimated Creatinine Clearance 45.9 mL/min (>60); Glucose 140 mg/dL (74-106); Magnesium 1.8 mg/dL (1.6-2.6); Osmolality,Calculated 277 (275-295); Phosphorous 4.3 mg/dL (2.4-5.1); Potassium 4.4 mMol/L (3.4-5.1); Sodium 138 mMol/L (136-145); eGFR 44 See Note
--- NOTE | 2025-03-16 08:01 | PC.NURSE ---
RN spoke with Dr. Wills and made aware pt. states last cervical biopsy was 03/11, and next one is scheduled for 03/25. Both at [facility]. Dr. Wills states No need for biopsy, Ill talk to Dr. Lopez. Pt. may eat. Hospitalist team made aware.
[2025-03-16] MEDS: HYDROmorphone INJ 2 MG/ML VIAL 1 MG IVP ×2 (09:24→13:25)
[2025-03-16] MEDS: INSULIN DEGLUDEC 5 UNIT/0.05 ML (PER 5 UNITS) 15 UNIT SC (09:27)
[2025-03-16] MEDS: SENNA/DOCUSATE SOD 1 TAB TABLET PO (09:27)
[2025-03-16] MEDS: TRIMETHOPRIM/SULFA 160/800 DS TABLET 1 TAB PO (09:28)
--- NOTE | 2025-03-16 10:31 | ESPR_ITS ---
Documentation for date of: 03/16/25 COLOR SPRAYER Subjective Subjective Interval history: Patient n.p.o. since midnight. No change in gynecologic status. Exam Vital Signs Temp Pulse Resp BP Pulse Ox O2 Del Method 97.2 F 65 17 158/74 H 98 Room Air 03/16/25 08:00 03/16/25 09:28 03/16/25 08:00 03/16/25 09:28 03/16/25 08:00 03/16/25 08:00 Constitutional Constitutional: no acute distress Routine HEENT Exam Head: Present normocephalic and atraumatic Eye: Present EOMI and PERRL ENT: Present mucous membranes moist Routine Neck Exam Neck: Present supple and trachea midline Routine Respiratory Exam Respiratory: Present chest non-tender, lungs clear, normal breath sounds and no resp distress Routine Cardiovascular Exam Cardiovascular: Present RRR Routine Abdominal Exam Abdominal: Present soft and normoactive bowel sounds Routine Extremities Exam Extremities: Present full ROM Routine Skin Exam Skin: Present intact and dry Routine Neurological Exam Neurological: Present alert, oriented X3 and CN II-XII intact Routine Psychiatric Exam Psychiatric: Present normal affect and normal thought process Urinary Catheter Management Cath placed during this visit: no COLOR SPRAYER - PN: Obj Data Labs 03/16/25 05:44 03/16/25 05:44 Labs: Laboratory Results - last 24 hr 03/15/25 03/16/25 15:20 05:44 WBC 9.4 RBC 3.69 L Hgb 10.0 L Hct 30.8 L MCV 84 MCH 27.1 MCHC 32.5 RDW Std Deviation 51.2 H Plt Count 470 H D Neut % (Auto) 66 Lymph % (Auto) 22 [place] % (Auto) 6 Eos % (Auto) 4 Baso % (Auto) 1 Neut # (Auto) 6.2 Lymph # (Auto) 2.1 [place] # (Auto) 0.6 Eos # (Auto) 0.4 Baso # (Auto) 0.1 Immature Gran # (Auto) 0.05 H Absolute Nucleated RBC 0.00 Immature Gran % 1 H Nucleated RBC % 0 Sodium 138 Potassium 4.4 D Chloride 105 Carbon Dioxide 22.5 Anion Gap 11 BUN 12 Creatinine 1.5 H Estim Creat Clear Calc 45.9 L eGFR 44 L BUN/Creatinine Ratio 8 L Glucose 140 H Calculated Osmolality 277 Calcium 9.1 Phosphorus 4.3 Magnesium 1.8 Carcinoembryonic Ag 12.1 H CA 125 Antigen 49.0 H COLOR SPRAYER - A/P Assessment and plan (1) Intractable abdominal pain: Status: Acute (2) Abdominal pain: Status: Acute (3) Pain, rectal: Status: Inactive (4) Pelvic mass: Status: Acute Assessment and plan: Patient added on for biopsy of cervix under anesthesia Follow-up and further gynecologic treatment once biopsy results are available Time Spent With Patient Time: Total time spent is greater than 50% in coordination of care (as documented) at patient's floor/unit and/or counseling patient: Time with patient: less than 15 minutes
--- NOTE | 2025-03-16 10:44 | PC.NURSE ---
Dr. Lopez at bedside, aware request for medical records for cervical biopsy is pending from [facility]. Dr. Lopez states depending on the report we get back from the biopsy on 03/11, we may do another biopsy tomorrow. order for consent pending report.
[2025-03-16] MEDS: INSULIN LISPRO (AdmeLOG) 1 UNIT/0.01 ML UNIT SC (11:12)
--- NOTE | 2025-03-16 13:05 | ESPR_ITS ---
Documentation for date of: 03/16/25 Subjective Subjective Interval history: Patient scheduled for discharge reportedly having significant pain. Exam Vital Signs Temp Pulse Resp BP Pulse Ox O2 Del Method 97.7 F 63 20 154/73 H 98 Room Air 03/16/25 12:00 03/16/25 12:00 03/16/25 12:00 03/16/25 12:00 03/16/25 12:00 03/16/25 12:00 Objective Labs 03/16/25 05:44 03/16/25 05:44 Labs: Laboratory Results - last 24 hr 03/15/25 03/16/25 15:20 05:44 WBC 9.4 RBC 3.69 L Hgb 10.0 L Hct 30.8 L MCV 84 MCH 27.1 MCHC 32.5 RDW Std Deviation 51.2 H Plt Count 470 H D Neut % (Auto) 66 Lymph % (Auto) 22 [place] % (Auto) 6 Eos % (Auto) 4 Baso % (Auto) 1 Neut # (Auto) 6.2 Lymph # (Auto) 2.1 [place] # (Auto) 0.6 Eos # (Auto) 0.4 Baso # (Auto) 0.1 Immature Gran # (Auto) 0.05 H Absolute Nucleated RBC 0.00 Immature Gran % 1 H Nucleated RBC % 0 Sodium 138 Potassium 4.4 D Chloride 105 Carbon Dioxide 22.5 Anion Gap 11 BUN 12 Creatinine 1.5 H Estim Creat Clear Calc 45.9 L eGFR 44 L BUN/Creatinine Ratio 8 L Glucose 140 H Calculated Osmolality 277 Calcium 9.1 Phosphorus 4.3 Magnesium 1.8 Carcinoembryonic Ag 12.1 H CA 125 Antigen 49.0 H Assessment & Plan A&P Narrative 1. Cervical mass noted on CT and ultrasound. Evaluated by SOFTWARE DEVELOPMENT COORDINATOR Dr. Lopez. Biopsy may have been already performed. This is being checked. 2. 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 Reportedly active again after prior treatment. Right upper lobe nodule appears new and needs to be followed closely. 3. Patient needs to be referred to the cancer center by primary care provider, Informed patient. 4. Will manage patient's pain and go over the pathology studies and perform any other diagnostic test that may be needed at that time as well. Time Spent With Patient Time: Total time spent is greater than 50% in coordination of care (as documented) at patient's floor/unit and/or counseling patient:
--- NOTE | 2025-03-16 13:36 | PC.CC ---
Received call from [facility] Fig Bar Machine Operator, Brenda, assigned to patient [phone].
--- NOTE | 2025-03-16 14:31 | PC.NURSE ---
Dr. Orosco aware pt. has not had BM since 03/13. is aware and aware pt. has constipation at home. Per Dr. Orosco pt. can still be discharged without bowel management, we will DC pt. with stool softeners.
--- NOTE | 2025-03-16 14:34 | ESDS_ITS ---
<Statement entered by Meño Jonas MD - 03/16/25 15:43> I have reviewed the note and agree with the resident's assessment & plan with exceptions as below. I have personally reviewed labs, imaging, home meds/prior records, examined the patient, formulated and discussed management plan with my attending Meño Jonas PGY2 Disclaimer: Even though this this note was dictated by speech recognition and even though it was carefully revised there may still be minor errors in director of sports performance due to voice recognition software. Planned Discharge Date 03/16/25 DS: Providers Provider Date of admission: 03/14/25 23:45 Primary care physician: Stan Cedillo MD Admitting Provider: Santi Braga MD Attending Provider on Admission: Sally Benjamin MD Consults: 03/14/25 23:10 Consult to Gynecology Stat Comment: Cervical cancer with metastasis Consulting Provider: Bull Lopez 03/14/25 23:51 Consult to Oncology Stat Comment: Consulting Provider: Jared Calvin 03/15/25 09:24 Health Equity Referral - Nutrition Routine Comment: Positive screening for nutrition needs. Health Equity Referral - Utilities Routine Comment: Positive screening for utility assistance needs. Attending Provider on DC: Sally Benjamin MD Discharging Provider: Sally Benjamin MD DS: Diagnosis Problem List Completed Was Problem List Reviewed/Reconciled?: Yes Hospital Course Hospital Course Hospital course: Summary: Kacy Cedillo 44F PMH significant for cervical mass with hx of cervical cancer s/p laser therapy 2018, non-malignant bladder mass, b/l hydronephrosis s/p b/l nephrostomy tube 11/2024, recurrent MDRO UTIs, T2DM, hx of pulmonary coccidioidomycosis s/p treatment who presented to the ED on 03/14 with suprapubic and b/l low back pain. Admitted for HTN urgency and cervical mass [id number]. Patient reports cervical cancer in 2019 treated with laser therapy, no follow up post intervention, however likely not cervical cancer per in-house OBGYN. Patient has history of requiring multiple ED for pain control, and takes multiple opioids at home without adequate pain control. TITLE ONE TEACHER consulted and patient however patient reports that had cervical biopsy on 03/11 and is due for another appointment on 03/15 at [facility]. Per TITLE ONE TEACHER, no cervical biopsy needed at this time as patient recently had one. Oncology was consulted for pulmonary nodules as well as benign bladder tumor and possible cervical cancer. Plan for patient to follow Dr. Calvin outpatient for further pain management and workup. During admission, pain is controlled with IV pain medication. Of note, patient had visited emergency room day before admission and was discharged with Bactrim for urinary tract infection. Urine cultures grew Enterococcus sensitive to Bactrim. On discharge, patient continues to have lower abdominal pain however improved due to pain medication, vitals and labs reviewed to be stable and patient is ready for discharge. Imagin/17 CT CAP: subcentimeter abdominal pelvic lymphadenopathy (not seen on previous imaging), hyperdensities in lower endometrial canal especially in cervix. 03/13 Transvaginal ultrasound: Uterus 6.2 cm with cervical mass 19 x 15 x 24 mm with calcification, ovaries obscured by bowel gas, calcified cervical mass Discharge Recommendations: - Please take all medications as prescribed - Start amlodipine 10mg daily for high blood pressure - Start [place] 10 every 8 hours as needed for pain for a total of 5 days - Start Colace for constipation - Continue all home medications except as above - Please follow up with your PCP within one week of discharge - Please follow-up with your TITLE ONE TEACHER within 5 days upon discharge - Please follow-up with your oncologist within 5 days upon discharge - If your symptoms worsen, please seek immediate medical attention and return to your nearest emergency room. - If you do not have a PCP, you may follow up at the [facility] at [address] [place] [address] [address], Hospital Diagnoses: #Cervical mass 19 x 15 x 24 mm #Suprapubic pain #Hx reported cervical cancer s/p laser therapy 2018 #B/L low back pain #B/L hydronephrosis s/p b/l nephrostomy tube placement (11/2024) #UTI #Hx recurrent MDRO UTIs #Hypertensive urgency #Hx HTN #IDDM2 #Coccidioidomycosis #Constipation #Urothelial papilloma with chronic cystitis Francesca Orosco, DO Internal Medicine, PGY-1 Time Spent with Patient Time attestation: Total time spent providing and/or coordinating discharge services: 38 min Time spent: Greater than 30 minutes Exam Vital Signs Temp Pulse Resp BP Pulse Ox O2 Del Method 97.7 F 63 20 154/73 H 98 Room Air 03/16/25 12:00 03/16/25 12:00 03/16/25 12:00 03/16/25 12:00 03/16/25 12:00 03/16/25 12:00 Narrative Exam GENERAL: AOx3, no acute distress HEENT: mucous membranes moist, bilateral sclera anicteric CARDIOVASCULAR: regular rate and rhythm, S1/S2 present, no murmurs appreciated PULMONARY: clear to auscultation bilaterally, no rales/rhonchi/wheezes ABDOMINAL: soft, non-distended, no rebound/guarding, bowel sounds present, TTP suprapubic and L and R lower quadrants EXTREMITIES: no peripheral edema SKIN: warm and dry, intact, no rashes, b/l nephrostomy tubes in place, not TTP NEURO: CN II-XII grossly intact, no focal deficits, alert, following commands Discharge Plan Plan Patient Disposition: HOME (Self Care) Care Plan Goals: Please follow your primary care physician within 2 or 3 days upon discharge Please follow-up with your TITLE ONE TEACHER within 5 days upon discharge Please follow-up with your oncologist within 5 days upon discharge Continue amlodipine 10mg daily for high blood pressure We have prescribed you [place] 10 every 8 hours as needed for pain for a total of 5 days We have discontinued your Percocet and your duplicate order of [place] Please come back to the ED if symptoms persist or worsen Prescriptions/Referrals Prescriptions/Med Rec: New hydrocodone-acetaminophen 10-325 mg tablet 1 tab PO Q8H MDD one tab upto 3 times daily PRN (Reason: pain) Qty: 15 0RF amlodipine 10 mg tablet 10 mg PO QDAY Qty: 30 0RF docusate sodium [Stool Softener] 100 mg capsule 100 mg PO QDAY PRN (Reason: constipation) Qty: 30 0RF Continued carvedilol 25 mg tablet 25 mg PO BID Qty: 30 0RF Patient Comments: TAKE 1 TABLET BY MOUTH TWICE DAILY WITH MEALS FOR 30 DAYS sulfamethoxazole-trimethoprim [Bactrim DS] 800-160 mg tablet 1 tab PO BID Qty: 4 0RF insulin glargine-yfgn 100 unit/mL (3 mL) insulin pen 30 unit SUBCUT DAILY fluconazole 200 mg tablet 400 mg PO DAILY Patient Comments: TAKE 2 TABLETS BY MOUTH ONCE DAILY FOR 28 DAYS polyethylene glycol 3350 17 gram/dose powder 17 g PO QDAY acetaminophen 500 mg tablet 1,000 mg PO Q6H insulin lispro [Admelog SoloStar U-100 Insulin] 100 unit/mL insulin pen 5 unit SUBCUT TID Patient Comments: INJECT 5 UNITS SUBCUTANEOUSLY THREE TIMES DAILY WITH MEALS PER SLIDING SCALE MAX 20 UNITS PER DAY hydrocortisone [Anusol-HC] 2.5 % cream with perineal applicator 1 applic [place] QDAY PRN (Reason: hemorrhoids) Qty: 30 0RF Discontinued hydrocodone-acetaminophen 10-325 mg tablet 1 tab PO Q8H MDD hydrocodone 30mg PRN (Reason: pain) 7 Days Qty: 21 0RF oxycodone-acetaminophen [Percocet] 7.5-325 mg tablet 1 tab PO Q6H MDD 3 tab PRN (Reason: pain) Qty: 10 0RF Referrals: Stan Cedillo MD [Primary Care Provider, Family Practice] Patient/Caregiver Discharge Instructions Other Discharge Activity Instructions:: Please follow your primary care physician within 2 or 3 days upon discharge Please follow-up with your TITLE ONE TEACHER within 5 days upon discharge Please follow-up with your oncologist within 5 days upon discharge Continue amlodipine 10mg daily for high blood pressure We have prescribed you [place] 10 every 8 hours as needed for pain for a total of 5 days We have discontinued your Percocet and your duplicate order of [place] Please come back to the ED if symptoms persist or worsen [facility] Back Facer is Teri [phone] Education Materials: Controlling High Blood Pressure, Taking Opioid Medicines Print Language: Thai Stand Alone Forms: Nina Award Info., Patient Portal Info Letter Discharge Order Discharge Orders: Discharge (Routine); Ordered 03/16/25 Ordered By: Meño Jonas Quality Discharge Quality Measures VTE prophylaxis Attestestation MD Attestation I have seen and examined the patient. I was physically present for the oconnor portions of the services provided including history, physical exam, diagnosis, treatment plans and orders. I agree with assessment and plan of care as documented by residents. Patient seen and examined at bedside this morning. Appears comfortable, continues to have some abdominal pain, controlled with analgesics. Vital signs are stable except for mild hypertension. Lab results are stable as well. Today, patient stated that she had cervical biopsy done 5 to 6 days ago with her integrated logistics support manager and has another appointment coming on. Discussed with integrated logistics support manager, stated that the patient recently had a biopsy, wanted need biopsy inpatient. Discussed with oncology, recommended outpatient oncology follow-up. Urine culture came back positive for Enterococcus, sensitive to Bactrim. Patient discharged on another 6, and recommended to continue her Bactrim which she received from ED during her last visit. Patient recommended to follow-up with PCP, oncology and TITLE ONE TEACHER. Even though this this note was carefully revised there may still be minor errors in director of sports performance due to voice recognition software. Sally Benjamin MD
[2025-03-19 06:33] LABS: CA 19-9 Antigen* 3 U/mL (<34); CA 27.29* 45 U/mL (LESS THAN 38)
== END 2025-03-16 15:06 | disposition home or self-care (01) | DRG 199 ==
LOC: SERX 23:14 → SERHOLD 03-15 00:19 → S3NX 03-15 08:43
PROVIDERS: Radiology Therapeutic Radiology; Admitting Provider Internal Medicine; Emergency Provider Emergency Medicine; PCP Family Medicine; Visit Provider Student in an Organized Health Care Education/Training Program
DX: I16.0 Hypertensive urgency (principal); N13.6 Pyonephrosis; B95.2 Enterococcus as the cause of diseases classified elsewhere; B38.2 Pulmonary coccidioidomycosis, unspecified; K59.09 Other constipation; I12.0 Hypertensive chronic kidney disease with stage 5 chronic kidney disease or end stage renal disease; E11.65 Type 2 diabetes mellitus with hyperglycemia; E11.22 Type 2 diabetes mellitus with diabetic chronic kidney disease; N18.6 End stage renal disease; E83.42 Hypomagnesemia; K80.20 Calculus of gallbladder without cholecystitis without obstruction; Z16.24 Resistance to multiple antibiotics; Z79.899 Other long term (current) drug therapy; K62.89 Other specified diseases of anus and rectum; N30.20 Other chronic cystitis without hematuria; Z85.41 Personal history of malignant neoplasm of cervix uteri; Z79.4 Long term (current) use of insulin; Z93.6 Other artificial openings of urinary tract status; Z99.2 Dependence on renal dialysis
CPT/HCPCS: 36415; 71260; 74177; 76705; 80048; 80053; 81001; 82105; 82150; 82248; 82378; 83690; 83735; 84100; 84703; 85025; 85610; 86300; 86301; 86304; 87077; 87081; 87086; 87186; 96365; 96366; 96372; 96375; 96376; 99284; A4649; J0696; J1171; J1644; J1815; J2270; J2405; J3475; J3490; J7030; Q9967; A9270; J1920

== ENCOUNTER 2025-03-16 22:00 | Emergency (ER) | payer MEDICAID, SELFPAY ==
[2025-03-16 22:01] VITALS: BMI 30.2
[2025-03-16 22:47] VITALS: BP 144/83; PULSE 65; RESP 18; TEMP 36.5; O2SAT 99
--- NOTE | 2025-03-16 23:06 | PD.EDABDPN ---
ED Abdominal Pain RME/HPI General Chief Complaint: Abdominal Pain Stated complaint: LOWER ABD PAIN, VOMITING Time seen by provider: 03/16/25 23:00 Arrival date/time: 03/16/25 22:00 RME / HPI RME / HPI narrative: See [facility] for Dr. Calvin's HPI Documentation. Related Data Home Medications ?Medication ?Instructions ?Recorded ?Confirmed acetaminophen 500 mg tablet 1,000 mg PO Q6H 03/16/25 03/16/25 fluconazole 200 mg tablet 400 mg PO DAILY 03/16/25 03/16/25 insulin glargine-yfgn 100 unit/mL 30 unit subcut DAILY 03/16/25 03/16/25 (3 mL) subcutaneous pen insulin lispro 100 unit/mL 5 unit subcut TID 03/16/25 03/16/25 subcutaneous pen (Admelog SoloStar U-100 Insulin lispro) polyethylene glycol 3350 17 17 g PO QDAY 03/16/25 03/16/25 gram/dose oral powder Previous Rx's ?Medication ?Instructions ?Recorded carvedilol 25 mg tablet 25 mg PO BID #30 tabs 02/19/25 sulfamethoxazole 800 1 tab PO BID #4 tabs 02/19/25 mg-trimethoprim 160 mg tablet (Bactrim DS) hydrocortisone 2.5 % topical cream 1 applic [place] QDAY PRN hemorrhoids 02/27/25 with perineal applicator #30 grams (Anusol-HC) amlodipine 10 mg tablet 10 mg PO QDAY #30 tabs 03/16/25 docusate sodium 100 mg capsule 100 mg PO QDAY PRN constipation 03/16/25 (Stool Softener) #30 caps hydrocodone 10 mg-acetaminophen 1 tab PO Q8H PRN pain #15 tabs 03/16/25 325 mg tablet Allergies Allergy/AdvReac Type Severity Reaction Status Date / Time No Known Allergies Allergy Verified 03/16/25 22:03 Review of Systems Review of Systems Systems Reviewed: All systems reviewed, normal except as documented Past Medical History Past Medical History NEUROLOGIC: Positive Migraine CARDIAC: Positive Cardiac Disorders and Hypertension GENITOURINARY: Positive Genitourinary Disorders, Renal Disease and Dialysis REPRODUCTIVE: Positive Previous Pregnancies ENDOCRINE: Positive Endocrine Disorders and Diabetes Mellitus Type 2 PSYCHO/SOCIAL: Positive Anxiety OTHER HISTORY: Positive Blood Transfusions, Blood Transfusion Reaction and Cancer Family History FAMILY HISTORY: Positive Family Cardiac Disorders Surgical History SURGICAL: Positive Endocrine Surgery and Section ED Exam Narrative Physical exam: See [facility] for Dr. Calvin's Physical Exam Documentation. Course Quality Measures none Orders Category Date Time Status HYDROmorphone INJ [Dilaudid Inj] Med 03/16/25 23:06 Discontinued 2 mg IM X1 ONE Ondansetron Odt [Zofran Odt] Med 03/16/25 23:06 Discontinued 4 mg PO X1 ONE Vital Signs Vital signs: Vital Signs Temperature 97.7 F 03/16/25 22:47 Pulse Rate 65 03/16/25 22:47 Respiratory Rate 18 03/16/25 22:47 Blood Pressure 144/83 H 03/16/25 22:47 Pulse Oximetry (%) 99 03/16/25 22:47 Oxygen Delivery Method Room Air 03/16/25 22:47 Abdominal Pain [facility] Narrative [facility] Narrative:: This section includes all my notes and documentations, including HPI, PE, and ED course. Bassem Calvin MD HPI: 44 y/o female presents with chronic pain. ROS: All negative except as documented in HPI. Physical Exam: General: Alert and oriented. Eyes: Conjunctivae and lids clear. ENT: No nasal congestion. Neck: Supple. Lungs: No respiratory distress. Abdomen: Soft and nontender. Normal bowel sounds. No distension. No rebound or guarding. Skin: Warm and dry. Neuro: Alert and oriented X 3. At this point, diagnoses include: Chronic Pain Treatment here included: Dilaudid 2 mg IM Zofran ODT 4 mg She felt much better. Recommended outpatient care. Based on my best medical judgment, made decision no further evaluation or treatment indicated at this time. Patient understands and agrees to the discharge instructions customized and printed, see below. Discharge Instructions from Dr. Calvin printed for you: 1. You were treated today for your chronic pain. 2. In future visits, it will be very difficult to treat your chronic pain with narcotics here. 3. For chronic pain, you need to get treated by private doctors outside the ER. 4. Take [place] you are prescribed from here recently. 5. See a private doctor on 03/17/2025 for further care. Ask for help managing her chronic pain without frequent ER visits. And ask for help seeing specialists, including Dr. Jared Calvin, our cancer doctor. 6. Seek immediate medical care with worsening or with any concerns. Bassem Calvin MD Patient data External records reviewed:: [facility] previous records (Reviewed prior ED records from 03/14/25. Patient was seen for SAPPHIRE (acute kidney injury).) Clinical information provided by:: patient Social determinants that could affect healthcare access:: none Patient has the following chronic illnesses:: Migraine, Hypertension, Renal Disease and Dialysis, Diabetes Mellitus Type 2, Anxiety How is presenting disease/condition affected by chronic disease/condition?: exacerbated by Evaluation data The following diagnostics were reviewed and interpreted by me:: other (specify) (N/A) Lab and/or radiology exams considered but not ordered:: None Interpretation Summary: N/A Medications / Prescriptions Medications or Prescriptions considered but not ordered:: None Medication administrations:: Medication Administration History Discontinued Medications Hydromorphone HCl (Hydromorphone Inj 2 Mg/Ml Vial) 2 mg IM X1 ONE Stop: 03/16/25 23:07 Last Admin: 03/16/25 23:25 Dose: 2 mg Documented By: IRENE Ondansetron HCl (Ondansetron Odt 4 Mg Tabrap) 4 mg PO X1 ONE; Protocol Stop: 03/16/25 23:07 Last Admin: 03/16/25 23:25 Dose: 4 mg Documented By: IRENE Treatment here included: Dilaudid 2 mg IM Zofran ODT 4 mg Consultations Consultation(s) initiated? (list below): No Diagnosis Differential diagnosis abdominal pain: other (Chronic pain) Most likely diagnosis given after review of the tests above:: Chronic pain Admission Indicated Admission indicated?: not indicated Explain why admission is indicated or not indicated:: With no condition needing emergent intervention, there was no indication for admission. Admission Request Was there a request for admission?: No Disposition Plan Disposition Plan: Discharge Discharge Attestation Discharge Attestation: The patient and all family members were given an opportunity to ask questions and understood the discharge instructions. Discharge instructions specifically effects, indications for sooner follow up or return to the emergency department, and the expected course of current diagnosis. Patient condition: Stable Discharge Plan Plan Patient Disposition: HOME (Self Care) Prescriptions/Referrals Prescriptions/Med Rec: No Action carvedilol 25 mg tablet 25 mg PO BID Qty: 30 0RF Patient Comments: TAKE 1 TABLET BY MOUTH TWICE DAILY WITH MEALS FOR 30 DAYS sulfamethoxazole-trimethoprim [Bactrim DS] 800-160 mg tablet 1 tab PO BID Qty: 4 0RF insulin glargine-yfgn 100 unit/mL (3 mL) insulin pen 30 unit SUBCUT DAILY fluconazole 200 mg tablet 400 mg PO DAILY Patient Comments: TAKE 2 TABLETS BY MOUTH ONCE DAILY FOR 28 DAYS polyethylene glycol 3350 17 gram/dose powder 17 g PO QDAY acetaminophen 500 mg tablet 1,000 mg PO Q6H insulin lispro [Admelog SoloStar U-100 Insulin] 100 unit/mL insulin pen 5 unit SUBCUT TID Patient Comments: INJECT 5 UNITS SUBCUTANEOUSLY THREE TIMES DAILY WITH MEALS PER SLIDING SCALE MAX 20 UNITS PER DAY hydrocodone-acetaminophen 10-325 mg tablet 1 tab PO Q8H MDD one tab upto 3 times daily PRN (Reason: pain) Qty: 15 0RF amlodipine 10 mg tablet 10 mg PO QDAY Qty: 30 0RF docusate sodium [Stool Softener] 100 mg capsule 100 mg PO QDAY PRN (Reason: constipation) Qty: 30 0RF hydrocortisone [Anusol-HC] 2.5 % cream with perineal applicator 1 applic [place] QDAY PRN (Reason: hemorrhoids) Qty: 30 0RF Problem List Clinical Impression: Chronic pain Patient/Caregiver Discharge Instructions Discharge Activity: activity as tolerated Education Materials: ED Chronic Pain Additional Instructions: Discharge Instructions from Dr. Calvin printed for you: 1. You were treated today for your chronic pain. 2. In future visits, it will be very difficult to treat your chronic pain with narcotics here. 3. For chronic pain, you need to get treated by private doctors outside the ER. 4. Take [place] you are prescribed from here recently. 5. See a private doctor on 03/17/2025 for further care. Ask for help managing her chronic pain without frequent ER visits. And ask for help seeing specialists, including Dr. Jared Calvin, our cancer doctor. 6. Seek immediate medical care with worsening or with any concerns. Instrucciones de alpa del Dr. Calvin impresas para usted: 1. Hoy recibi? tratamiento para ring dolor cr?shira. 2. En futuras visitas, ser? muy dif?cil tratar ring dolor cr?shira con narc?ticos aqu?. 3. Para el dolor cr?shira, necesita recibir tratamiento con m?dicos privados fuera de urgencias. 4. [place], que le recetaron aqu? recientemente. 5. Consulte con un m?dico privado el 17/03/2025 para recibir atenci?n adicional. Solicite ayuda para controlar ring dolor cr?shira sin visitas frecuentes a urgencias. Y solicite ayuda para consultar con especialistas, incluido el Dr. Jared Calvin, nuestro onc?logo. 6. Busque atenci?n m?dica inmediata si presenta empeoramiento o si tiene alguna inquietud. Print Language: Mauritanian Stand Alone Forms: Nina Award Info., Patient Portal Info Letter
[2025-03-16] MEDS: ONDANSETRON ODT 4 MG TABRAP PO (23:25)
[2025-03-16] MEDS: HYDROmorphone INJ 2 MG/ML VIAL IM (23:25)
== END 2025-03-16 23:47 | disposition home or self-care (01) ==
LOC: SERX 23:36
PROVIDERS: Emergency Provider Emergency Medicine; PCP Family Medicine
DX: R10.9 Unspecified abdominal pain (principal); G89.29 Other chronic pain
CPT/HCPCS: 96372; 99282; J1171; Q0162

== ENCOUNTER 2025-03-18 16:23 | Emergency (ER) | payer MEDICAID, SELFPAY ==
[2025-03-18 16:52] VITALS: BP 168/89; PULSE 82; RESP 20; TEMP 36.7; O2SAT 100
--- NOTE | 2025-03-18 17:12 | PD.EDRME ---
Rapid Medical Screening Exam RME Arrival date/time: 03/18/25 16:23 44-year-old female presents Emergency Department today for complaint of headache Chief Complaint: Headache Time Seen by Provider: 03/18/25 16:31 Vital signs: Vital Signs Temperature 98.1 F 03/18/25 16:52 Pulse Rate 82 03/18/25 16:52 Respiratory Rate 20 03/18/25 16:52 Blood Pressure 168/89 H 03/18/25 16:52 Pulse Oximetry (%) 100 03/18/25 16:52 Oxygen Delivery Method Room Air 03/18/25 16:52
--- NOTE | 2025-03-18 20:27 | PC.NURSE ---
NA x3, NA x3 for lab draw, NA x3 from nursing 2006, 2014, 2027
--- NOTE | 2025-03-18 20:28 | PC.NURSE ---
PT CALLED MULTIPLE TIME BY LAB FOR BLOOD DRAW. PT CALLED BY COIN MACHINE MECHANIC AT 2018. LAB CALLED PT AT [phone] AND 1814 WITH NO ANSWER.
== END 2025-03-18 20:29 | disposition left against medical advice (07) ==
LOC: SERX 17:12
PROVIDERS: Emergency Provider Emergency Medicine
DX: Z53.21 Procedure and treatment not carried out due to patient leaving prior to being seen by health care provider (principal)
CPT/HCPCS: 80053; 85025; 99282

== ENCOUNTER 2025-03-30 20:10 | Emergency (ER) | payer MEDICAID, SELFPAY ==
[2025-03-30 20:11] VITALS: BMI 29.2
[2025-03-30 20:35] VITALS: BP 201/112; PULSE 91; RESP 17; TEMP 36.9; O2SAT 95
--- NOTE | 2025-03-30 20:36 | XR_ITS ---
EXAMINATION: PA chest single view TECHNIQUE: Upright PA chest single view Date and time: February 27, 2025, 2044 hours, comparison March 13, 2025 INDICATIONS: Chest pain after biopsy this morning FINDINGS: Mild prominence left ventricle, pulmonary mass right lower lobe again noted. No pneumothorax No pulmonary edema, no pneumonia Mild subsegmental atelectasis right base IMPRESSION: No pneumothorax, pulmonary edema, or pneumonia
--- NOTE | 2025-03-30 20:38 | PD.EDCHEST ---
ED Chest Pain RME/HPI General Chief Complaint: Chest Pain Stated Complaint: RIGHT LUNG PAIN AFTER BIOPSY Time Seen by Provider: 03/30/25 20:36 Arrival date/time: 03/30/25 20:10 RME / HPI RME / HPI narrative: See [facility] for Dr. Calvin's HPI Documentation. Related Data Home Medications ?Medication ?Instructions ?Recorded ?Confirmed acetaminophen 500 mg tablet 1,000 mg PO Q6H 03/16/25 03/16/25 fluconazole 200 mg tablet 400 mg PO DAILY 03/16/25 03/16/25 insulin glargine-yfgn 100 unit/mL 30 unit subcut DAILY 03/16/25 03/16/25 (3 mL) subcutaneous pen insulin lispro 100 unit/mL 5 unit subcut TID 03/16/25 03/16/25 subcutaneous pen (Admelog SoloStar U-100 Insulin lispro) polyethylene glycol 3350 17 17 g PO QDAY 03/16/25 03/16/25 gram/dose oral powder Previous Rx's ?Medication ?Instructions ?Recorded carvedilol 25 mg tablet 25 mg PO BID #30 tabs 02/19/25 sulfamethoxazole 800 1 tab PO BID #4 tabs 02/19/25 mg-trimethoprim 160 mg tablet (Bactrim DS) hydrocortisone 2.5 % topical cream 1 applic MS QDAY PRN hemorrhoids 02/27/25 with perineal applicator #30 grams (Anusol-HC) amlodipine 10 mg tablet 10 mg PO QDAY #30 tabs 03/16/25 docusate sodium 100 mg capsule 100 mg PO QDAY PRN constipation 03/16/25 (Stool Softener) #30 caps hydrocodone 10 mg-acetaminophen 1 tab PO Q8H PRN pain #15 tabs 03/16/25 325 mg tablet hydrocodone 5 mg-acetaminophen 325 2 tab PO Q8H PRN pain #20 tabs 03/30/25 mg tablet ketorolac 10 mg tablet 10 mg PO Q8H PRN pain 5 days #10 03/30/25 tabs Allergies Allergy/AdvReac Type Severity Reaction Status Date / Time No Known Allergies Allergy Verified 03/16/25 22:03 Review of Systems Review of Systems Systems Reviewed: All systems reviewed, normal except as documented Past Medical History Past Medical History NEUROLOGIC: Positive Migraine CARDIAC: Positive Cardiac Disorders and Hypertension GENITOURINARY: Positive Genitourinary Disorders, Renal Disease and Dialysis REPRODUCTIVE: Positive Previous Pregnancies ENDOCRINE: Positive Endocrine Disorders and Diabetes Mellitus Type 2 PSYCHO/SOCIAL: Positive Anxiety OTHER HISTORY: Positive Blood Transfusions, Blood Transfusion Reaction and Cancer Family History FAMILY HISTORY: Positive Family Cardiac Disorders Surgical History SURGICAL: Positive Endocrine Surgery and Section ED Exam Narrative Physical exam: See [facility] for Dr. Calvin's Physical Exam Documentation. Course Quality Measures none Orders Category Date Time Status XR chest 1V portable Stat Exams 03/30/25 20:36 Completed HYDROmorphone INJ [Dilaudid Inj] Med 03/30/25 20:36 Discontinued 2 mg IM X1 ONE Ondansetron Odt [Zofran Odt] Med 03/30/25 20:36 Discontinued 4 mg PO X1 ONE cloNIDine HCL [Catapres] Med 03/30/25 21:33 Discontinued 0.3 mg PO X1 ONE Vital Signs Vital signs: Vital Signs Temperature 98.4 F 03/30/25 20:35 Pulse Rate 91 03/30/25 20:35 Respiratory Rate 17 03/30/25 20:35 Blood Pressure 201/112 H 03/30/25 20:35 Pulse Oximetry (%) 95 03/30/25 20:35 Oxygen Delivery Method Room Air 03/30/25 20:35 Chest Pain [facility] Narrative [facility] Narrative:: This section includes all my notes and documentations, including HPI, PE, and ED course. Bassem Calvin MD HPI: 44 y/o female with Hx of ESRD with dialysis, HTN, and Anxiety here with severe right sided chest pain after lung biopsy earlier today. No headache or dizziness. No shortness of breath. No other complaints. ROS: All negative except as documented in HPI. Physical Exam: General: Alert and oriented. No acute distress when remaining still. High BP noted. Eyes: Conjunctivae and lids clear. ENT: No nasal congestion. Neck: Supple. Heart: RRR. Lungs: No respiratory distress. Good air movement. No rhonchi, wheezing, rales. Chest: No tenderness. Abdomen: Soft and nontender. Normal bowel sounds. No distension. No rebound or guarding. Back: No CVA tenderness. Skin: Warm and dry. Neuro: Alert and oriented X 3. I reviewed all diagnostic test results: My interpretation of the chest x-ray is: NAD. At this point, diagnoses include: Musculoskeletal Chest Pain High BP Treatment here included: Dilaudid 2 mg IM Zofran ODT 4 mg Catapres 0.3 mg orally Significant movement noted. Recommended outpatient management. Based on my best medical judgment, made decision no further evaluation or treatment indicated at this time. Patient understands and agrees to the discharge instructions customized and printed, see below. Discharge Instructions from Dr. Calvin printed for you: 1. Your pain is due to your biopsy earlier today. Will last for a few days. 2. Ketorolac and [place] as needed. 3. See a private doctor outside the ER on 04/02/2025 if not completely better. 4. Seek immediate medical care with worsening or with any concerns. Bassem Calvin MD Patient data External records reviewed:: [facility] previous records (Reviewed prior ED records from 03/18/25. Patient was seen for Headache.) Clinical information provided by:: patient Social determinants that could affect healthcare access:: mental health (Anxiety) Patient has the following chronic illnesses:: Migraine, Hypertension, Renal Disease and Dialysis, Diabetes Mellitus Type 2, Anxiety How is presenting disease/condition affected by chronic disease/condition?: exacerbated by Evaluation data The following diagnostics were reviewed and interpreted by me:: radiology exam(s) Lab and/or radiology exams considered but not ordered:: None Interpretation Summary: I reviewed all diagnostic test results: My interpretation of the chest x-ray is: NAD. Medications / Prescriptions Medications or Prescriptions considered but not ordered:: None Medication administrations:: Medication Administration History Discontinued Medications Clonidine (Clonidine Hcl 0.1 Mg Tablet) 0.3 mg PO X1 ONE Stop: 03/30/25 21:34 Last Admin: 03/30/25 22:07 Dose: 0.3 mg Documented By: MARCO ANTONIO Hydromorphone HCl (Hydromorphone Inj 2 Mg/Ml Vial) 2 mg IM X1 ONE Stop: 03/30/25 20:37 Last Admin: 03/30/25 20:58 Dose: 2 mg Documented By: MARCO ANTONIO Ondansetron HCl (Ondansetron Odt 4 Mg Tabrap) 4 mg PO X1 ONE; Protocol Stop: 03/30/25 20:37 Last Admin: 03/30/25 20:58 Dose: 4 mg Documented By: MARCO ANTONIO Treatment here included: Dilaudid 2 mg IM Zofran ODT 4 mg Catapres 0.3 mg orally Consultations Consultation(s) initiated? (list below): No Diagnosis Chest Pain Differential Diagnosis: pneumothorax, atypical chest pain and costochondritis Most likely diagnosis given after review of the tests above:: Musculoskeletal Chest Pain Admission Indicated Admission indicated?: not indicated Explain why admission is indicated or not indicated:: With significant improvement and no condition needing emergent intervention, there was no indication for admission. Admission Request Was there a request for admission?: No Disposition Plan Disposition Plan: Discharge Discharge Attestation Discharge Attestation: The patient and all family members were given an opportunity to ask questions and understood the discharge instructions. Discharge instructions specifically effects, indications for sooner follow up or return to the emergency department, and the expected course of current diagnosis. Patient condition: Stable Discharge Plan Plan Patient Disposition: HOME (Self Care) Prescriptions/Referrals Prescriptions/Med Rec: New hydrocodone-acetaminophen 5-325 mg tablet 2 tab PO Q8H MDD 6 PRN (Reason: pain) Qty: 20 0RF ketorolac 10 mg tablet 10 mg PO Q8H PRN (Reason: pain) 5 Days Qty: 10 0RF No Action carvedilol 25 mg tablet 25 mg PO BID Qty: 30 0RF Patient Comments: TAKE 1 TABLET BY MOUTH TWICE DAILY WITH MEALS FOR 30 DAYS sulfamethoxazole-trimethoprim [Bactrim DS] 800-160 mg tablet 1 tab PO BID Qty: 4 0RF insulin glargine-yfgn 100 unit/mL (3 mL) insulin pen 30 unit SUBCUT DAILY fluconazole 200 mg tablet 400 mg PO DAILY Patient Comments: TAKE 2 TABLETS BY MOUTH ONCE DAILY FOR 28 DAYS polyethylene glycol 3350 17 gram/dose powder 17 g PO QDAY acetaminophen 500 mg tablet 1,000 mg PO Q6H insulin lispro [Admelog SoloStar U-100 Insulin] 100 unit/mL insulin pen 5 unit SUBCUT TID Patient Comments: INJECT 5 UNITS SUBCUTANEOUSLY THREE TIMES DAILY WITH MEALS PER SLIDING SCALE MAX 20 UNITS PER DAY hydrocodone-acetaminophen 10-325 mg tablet 1 tab PO Q8H MDD one tab upto 3 times daily PRN (Reason: pain) Qty: 15 0RF amlodipine 10 mg tablet 10 mg PO QDAY Qty: 30 0RF docusate sodium [Stool Softener] 100 mg capsule 100 mg PO QDAY PRN (Reason: constipation) Qty: 30 0RF hydrocortisone [Anusol-HC] 2.5 % cream with perineal applicator 1 applic MS QDAY PRN (Reason: hemorrhoids) Qty: 30 0RF Referrals: Temporary Provider,ED [Physician, Emergency Medicine] - In 1 week Problem List Clinical Impression: Musculoskeletal chest pain Patient/Caregiver Discharge Instructions Discharge Activity: activity as tolerated Education Materials: ED Chest Pain, Noncardiac Additional Instructions: Discharge Instructions from Dr. Calvin printed for you: 1. Your pain is due to your biopsy earlier today. Will last for a few days. 2. Ketorolac and [place] as needed. 3. See a private doctor outside the ER on 04/02/2025 if not completely better. 4. Seek immediate medical care with worsening or with any concerns. Instrucciones de alpa del Dr. Calvin impresas para usted: 1. Ring dolor se debe a la biopsia realizada hoy. Durar? unos d?as. 2. Ketorolaco y [place] seg?n sea necesario. 3. Si no mejora por completo, consulte a un m?dico privado fuera del servicio de urgencias el 2024. 4. Busque atenci?n m?dica inmediata si ring estado empeora o si tiene alguna inquietud. Print Language: Kiswahili Stand Alone Forms: Nina Award Info., Patient Portal Info Letter
[2025-03-30] MEDS: HYDROmorphone INJ 2 MG/ML VIAL IM (20:58)
[2025-03-30] MEDS: ONDANSETRON ODT 4 MG TABRAP PO (20:58)
[2025-03-30 22:05] VITALS: BP 211/103; PULSE 82; RESP 19; O2SAT 98
[2025-03-30 22:07] VITALS: BP 211/103; PULSE 82
[2025-03-30 22:40] VITALS: BP 191/109; PULSE 78; RESP 18; TEMP 36.9; O2SAT 97
== END 2025-03-30 22:45 | disposition home or self-care (01) ==
PROVIDERS: Emergency Provider Emergency Medicine
DX: I12.0 Hypertensive chronic kidney disease with stage 5 chronic kidney disease or end stage renal disease (principal); N18.6 End stage renal disease; Z99.2 Dependence on renal dialysis
CPT/HCPCS: 71045; 96372; 99283; J1171; Q0162; A9270

== ENCOUNTER 2025-04-01 17:30 | Emergency (ER) | payer MEDICAID, SELFPAY ==
[2025-04-01 17:57] VITALS: BP 155/84; PULSE 91; RESP 18; TEMP 37.1; O2SAT 100; BMI 27.4
--- NOTE | 2025-04-01 18:17 | PD.EDRME ---
Rapid Medical Screening Exam RME Arrival date/time: 04/01/25 17:30 Chief Complaint: General Adult/Misc Complain Vital signs: Vital Signs Temperature 98.7 F 04/01/25 17:57 Pulse Rate 91 04/01/25 17:57 Respiratory Rate 18 04/01/25 17:57 Blood Pressure 155/84 H 04/01/25 17:57 Pulse Oximetry (%) 100 04/01/25 17:57 Oxygen Delivery Method Room Air 04/01/25 17:57 RME Narrative: Patient reports b/l flank pain and nausea. Takes norco and po morphine at home. hx bilateral nephrostomy tubes, states tubing on both bags broke today Exam: Appears uncomfortable 2/2 pain, no distress Clinical Impression: Bilateral flank pain
--- NOTE | 2025-04-01 18:18 | XR_ITS ---
Examination: CT abdomen and pelvis without contrast. Coronal 3-D reconstructions. Sagittal 2-D reconstructions. Date and time of exam: April 01, 2025, 1939 hours INDICATIONS: Cervical carcinoma diagnosis history nephrostomy tubes, metastatic abdominopelvic lymphadenopathy on CT study March 14, 2025, bilateral flank pain today CTDI: vol (mGy): 6.35 DLP: (mGycm): 380 Technique: Axial images of the abdomen have been obtained, 3 mm slice thickness Intravenous contrast material has not been administered. Low dose protocols were performed. One or more of the following dose reduction techniques were used; automated exposure control, adjustment of the mA and/or KV according to patient size, use of iterative reconstruction technique. Findings: Metastatic pulmonary nodules, please see the CT chest report March 14, 2025 No visualized liver or splenic lesion Cholelithiasis No pancreatic or adrenal mass Bilateral nephrostomy tube satisfactory position, renal calculi, no significant hydronephrosis Normal appendix No bowel obstruction Tiny fat-containing umbilical hernia Subcentimeter abdominal and pelvic lymph nodes No bowel obstruction Mild thickening urinary bladder wall Advanced degenerative disc disease L5-S1 IMPRESSION: Bilateral nephrostomy tubes satisfactory position, renal calculi, no significant hydronephrosis:
[2025-04-01 18:33] LABS: Basophils # (Auto) 0.0 Thou/mm3 (0.0-0.2); Basophils % (Auto) 0 % (0-2.5); Eosinophils # (Auto) 0.2 Thou/mm3 (0.0-0.5); Eosinophils % (Auto) 1 % (0-10); Hematocrit 30.9 % (36.0-46.0); Hemoglobin 10.5 g/dL (12.0-16.0); Immature Granulocytes Auto 0.08 Thou/mm3 (0.00-0.00); Lymphocytes # (Auto) 1.5 Thou/mm3 (1.0-4.8); Lymphocytes % (Auto) 11 % (10-50); Mean Corpuscular HGB Conc 34.0 g/dl (31.0-37.0); Mean Corpuscular Hemoglobin 27.9 pg (25.0-35.0); Mean Corpuscular Volume 82 fL (80-100); Monocytes # (Auto) 0.9 Thou/mm3 (0.0-0.8); Monocytes % (Auto) 7 % (0-12); Neutrophils # (Auto) 10.3 Thou/mm3 (1.8-7.7); Neutrophils % (Auto) 80 % (37-80); Nucleated Red Blood Cell # 0.00 Thou/mm3 (0.00-0.00); Nucleated Red Blood Cell % 0 /100 WBC (0); Platelet Count 354 Thou/mm3 (140-440); RDW Standard Deviation 48.4 fL (36.4-46.3); Red Blood Count 3.77 Miln/mm3 (4.00-5.20); White Blood Count 12.9 Thou/mm3 (3.6-11.0)
[2025-04-01 18:33] LABS: Collection Type, Urine Catheter; Squamous Epithelial Cell,Urine 0 /hpf (0-5)
[2025-04-01 18:48] LABS: Alanine Aminotransferase 11 U/L (10-49); Albumin, Serum 4.3 gm/dL (3.5-5.0); Albumin/Globulin Ratio 1.5 (1.2-2.2); Alkaline Phosphatase 132 U/L (46-116); Anion Gap 9 (7-16); Aspartate Amino Transferase 13 U/L (0-34); BUN/Creatinine Ratio 9 Ratio (12-20); Bilirubin,Total 0.3 mg/dL (0.3-1.2); Blood Urea Nitrogen 11 mg/dL (9-23); Calcium 8.9 mg/dL (8.3-10.6); Calcium (Corrected) 8.9 mg/dL (8.5-10.1); Carbon Dioxide 24.6 mMol/L (20.0-31.0); Chloride 101 mMol/L (98-107); Creatinine (Component) 1.2 mg/dL (0.6-1.3); Estimated Creatinine Clearance 55.2 mL/min (>60); Globulin 2.8 gm/dL (2.3-3.5); Glucose 203 mg/dL (74-106); Osmolality,Calculated 275 (275-295); Potassium 3.8 mMol/L (3.4-5.1); Sodium 135 mMol/L (136-145); Total Protein 7.1 gm/dL (5.7-8.2); eGFR 58 See Note
[2025-04-01 18:55] LABS: Bilirubin,Urine Negative (Negative); Blood,Urine Negative (Negative); Clarity,Urine Clear (Clear/Hazy); Color,Urine Lt-Yellow (Lt Yel-Yel); Glucose, Urine 1+ (Negative); Ketones,Urine Negative (Negative); Leukocyte Esterase,Urine Positive (Negative); Nitrite,Urine Negative (Negative); PH,Urine 7.5 (5.0-7.0); Protein,Urine 2+ (Neg - Trace); RBC,Urine 2 /hpf (0-3); Specific Gravity,Urine 1.009 (1.001-1.035); Urobilinogen,Urine Negative mg/dL (0.0-1.0); WBC,Urine 4 /hpf (0-5)
[2025-04-01 19:22] LABS: HCG Qualitative,Urine Negative
[2025-04-01] MEDS: HYDROmorphone INJ 2 MG/ML VIAL 1 MG IM (20:38)
[2025-04-01] MEDS: ONDANSETRON ODT 4 MG TABRAP PO (20:38)
[2025-04-01 21:27] VITALS: BP 196/93; PULSE 95; RESP 19; TEMP 37.6; O2SAT 100
--- NOTE | 2025-04-01 21:28 | PD.EDADULT ---
ED General RME/HPI General Chief complaint: General Adult/Misc Complain Stated complaint: PAIN MENDEZ. NEPHROSTOMY TUBE SITE Time Seen by Provider: 04/01/25 20:09 Arrival date/time: 04/01/25 17:30 44-year-old female patient was brought in by family for complaints of bilateral nephrostomy insertion site pain. This been ongoing for the last few days described as sharp pain severity moderate. Nephrostomy bag is also leaking. Patient had nephrostomy placed more than 4 months ago due to cervical carcinoma blocking the ureter. She is currently followed by an oncologist from [place]. Patient denies any fever denies any vomiting denies any other complaints. Her nephrostomy dressing never been changed for a while. RME / HPI RME / HPI narrative: Patient reports b/l flank pain and nausea. Takes norco and po morphine at home. hx bilateral nephrostomy tubes, states tubing on both bags broke today Exam: Appears uncomfortable 2/2 pain, no distress Impression: Bilateral flank pain Related Data Home Medications ?Medication ?Instructions ?Recorded ?Confirmed acetaminophen 500 mg tablet 1,000 mg PO Q6H 03/16/25 03/16/25 fluconazole 200 mg tablet 400 mg PO DAILY 03/16/25 03/16/25 insulin glargine-yfgn 100 unit/mL 30 unit subcut DAILY 03/16/25 03/16/25 (3 mL) subcutaneous pen insulin lispro 100 unit/mL 5 unit subcut TID 03/16/25 03/16/25 subcutaneous pen (Admelog SoloStar U-100 Insulin lispro) polyethylene glycol 3350 17 17 g PO QDAY 03/16/25 03/16/25 gram/dose oral powder Previous Rx's ?Medication ?Instructions ?Recorded carvedilol 25 mg tablet 25 mg PO BID #30 tabs 02/19/25 sulfamethoxazole 800 1 tab PO BID #4 tabs 02/19/25 mg-trimethoprim 160 mg tablet (Bactrim DS) hydrocortisone 2.5 % topical cream 1 applic ND QDAY PRN hemorrhoids 02/27/25 with perineal applicator #30 grams (Anusol-HC) amlodipine 10 mg tablet 10 mg PO QDAY #30 tabs 03/16/25 docusate sodium 100 mg capsule 100 mg PO QDAY PRN constipation 03/16/25 (Stool Softener) #30 caps hydrocodone 10 mg-acetaminophen 1 tab PO Q8H PRN pain #15 tabs 03/16/25 325 mg tablet hydrocodone 5 mg-acetaminophen 325 2 tab PO Q8H PRN pain #20 tabs 03/30/25 mg tablet ketorolac 10 mg tablet 10 mg PO Q8H PRN pain 5 days #10 03/30/25 tabs acetaminophen 300 mg-codeine 30 mg 1 tab PO TID PRN pain #20 tabs 04/01/25 tablet Allergies Allergy/AdvReac Type Severity Reaction Status Date / Time No Known Allergies Allergy Verified 04/01/25 17:33 Review of Systems Review of Systems Narrative Review of Systems: Review of system reviewed and within normal limits except mentioned in HPI ED Exam Narrative Physical exam: VITAL SIGNS: Reviewed. GENERAL APPEARANCE: Alert and interactive, follows commands, no acute distress, HEAD AND FACE: Non-traumatic. ENT: PERRL, pink conjunctivitis, eyelid no trauma, Mucous membrane moist. NECK: Supple, nontender, no nuchal rigidity. CHEST: No tenderness, no crepitus, no paradoxical movement, no retractions. LUNGS: Clear, well ventilated, symmetric, no rales, no wheezing, no ronchi, no stridor, good breath sounds bilaterally. HEART: Regular rate, regular rhythm, no murmur, no gallops. ABDOMEN: Soft, positive bowel sounds, nondistended, no guarding, nontender, no rebound, no masses, bilateral nephrostomy site, intact, no leakage noted however nephrostomy bags are fixed with tapes RECTAL: Deferred. GENITAL: Deferred. NEUROLOGICAL: Gross motor function intact sensory function intact, Appropriate for age. MUSCULOSKELETAL: low back nontender, full range of motion. EXTREMITIES: Nontender, full range of motion. SKIN: Color pink, dry, no rash, no lacerations, no abrasions, no contusions. LYMPHATICS: Deferred. Course Quality Measures none Orders Category Date Time Status CT abdomen pelvis wo con Stat Exams 04/01/25 18:18 Completed CBC Stat Lab 04/01/25 18:24 Completed CMP [Comprehensive Metabolic Panel] Stat Lab 04/01/25 18:24 Completed HCG Qualitative,Urine Stat Lab 04/01/25 18:30 Completed UA [Urinalysis] Stat Lab 04/01/25 18:30 Completed Urine Culture Stat Lab 04/01/25 18:30 Received HYDROmorphone INJ [Dilaudid Inj] Med 04/01/25 18:21 Discontinued 1 mg IM X1 ONE Ondansetron Odt [Zofran Odt] Med 04/01/25 18:21 Discontinued 4 mg PO X1 ONE Vital Signs Vital signs: Vital Signs Temperature 98.7 F 04/01/25 17:57 Pulse Rate 91 04/01/25 17:57 Respiratory Rate 18 04/01/25 17:57 Blood Pressure 155/84 H 04/01/25 17:57 Pulse Oximetry (%) 100 04/01/25 17:57 Oxygen Delivery Method Room Air 04/01/25 17:57 Discharge Plan Plan Patient Disposition: HOME (Self Care) Discharge Disposition comment: Stable Prescriptions/Referrals Prescriptions/Med Rec: New acetaminophen-codeine 300-30 mg tablet 1 tab PO TID PRN (Reason: pain) Qty: 20 0RF No Action carvedilol 25 mg tablet 25 mg PO BID Qty: 30 0RF Patient Comments: TAKE 1 TABLET BY MOUTH TWICE DAILY WITH MEALS FOR 30 DAYS sulfamethoxazole-trimethoprim [Bactrim DS] 800-160 mg tablet 1 tab PO BID Qty: 4 0RF insulin glargine-yfgn 100 unit/mL (3 mL) insulin pen 30 unit SUBCUT DAILY fluconazole 200 mg tablet 400 mg PO DAILY Patient Comments: TAKE 2 TABLETS BY MOUTH ONCE DAILY FOR 28 DAYS polyethylene glycol 3350 17 gram/dose powder 17 g PO QDAY acetaminophen 500 mg tablet 1,000 mg PO Q6H insulin lispro [Admelog SoloStar U-100 Insulin] 100 unit/mL insulin pen 5 unit SUBCUT TID Patient Comments: INJECT 5 UNITS SUBCUTANEOUSLY THREE TIMES DAILY WITH MEALS PER SLIDING SCALE MAX 20 UNITS PER DAY hydrocodone-acetaminophen 10-325 mg tablet 1 tab PO Q8H MDD one tab upto 3 times daily PRN (Reason: pain) Qty: 15 0RF amlodipine 10 mg tablet 10 mg PO QDAY Qty: 30 0RF docusate sodium [Stool Softener] 100 mg capsule 100 mg PO QDAY PRN (Reason: constipation) Qty: 30 0RF hydrocortisone [Anusol-HC] 2.5 % cream with perineal applicator 1 applic ND QDAY PRN (Reason: hemorrhoids) Qty: 30 0RF hydrocodone-acetaminophen 5-325 mg tablet 2 tab PO Q8H MDD 6 PRN (Reason: pain) Qty: 20 0RF ketorolac 10 mg tablet 10 mg PO Q8H PRN (Reason: pain) 5 Days Qty: 10 0RF Referrals: Stan Cedillo MD [Primary Care Provider, Family Practice] - In 1 week Problem List Clinical Impression: Nephrostomy status, Back pain Patient/Caregiver Discharge Instructions Discharge Activity: activity as tolerated Education Materials: ED Back Pain (Acute or Chronic) Additional Instructions: Thank you for the opportunity for serving you today. You are stable for discharged . You are advised to: Follow-up with your PCP in 1 to 2 days Return to ED for worsening of symptoms Increase oral fluids Take medication as prescribed Print Language: Hebrew Stand Alone Forms: [employer] Award Info., Patient Portal Info Letter MDM Narrative MDM hospital course (for use when minimal MDM required): 44-year-old female patient was brought in by family for complaints of bilateral nephrostomy insertion site pain. This been ongoing for the last few days described as sharp pain severity moderate. Nephrostomy bag is also leaking. Patient had nephrostomy placed more than 4 months ago due to cervical carcinoma blocking the ureter. She is currently followed by an oncologist from [place]. Patient denies any fever denies any vomiting denies any other complaints. Her nephrostomy dressing never been changed for a while. Patient's CT scan of the abdomen and pelvis showed nephrostomy tube being in right position and it is working. Urinalysis no UTI. Laboratory workup came back normal. Patient received Dilaudid with significant improvement of pain. Bilateral nephrostomy dressing done. Stable for charged home Medication Administration(s) Medication Administration History Discontinued Medications Hydromorphone HCl (Hydromorphone Inj 2 Mg/Ml Vial) 1 mg IM X1 ONE Stop: 04/01/25 18:22 Last Admin: 04/01/25 20:38 Dose: 1 mg Documented By: MARCO ANTONIO Ondansetron HCl (Ondansetron Odt 4 Mg Tabrap) 4 mg PO X1 ONE; Protocol Stop: 04/01/25 18:22 Last Admin: 04/01/25 20:38 Dose: 4 mg Documented By: MARCO ANTONIO
--- NOTE | 2025-04-01 22:02 | PC.NURSE ---
wound care done, tammy nephrostomy tube dressings changed with 4x4 gauze, and tegaderm dressing in place. tammy nephrostomy bag changed with out any issues. dressing dry and intake.
[2025-04-01 22:04] VITALS: BP 145/67; PULSE 78; RESP 19; TEMP 36.6; O2SAT 99
== END 2025-04-01 22:05 | disposition home or self-care (01) ==
PROVIDERS: Physician Assistant; Emergency Provider Emergency Medicine; PCP Family Medicine
DX: M54.9 Dorsalgia, unspecified (principal)
CPT/HCPCS: 36415; 74176; 80053; 81001; 81025; 85025; 87077; 87086; 87186; 96372; 99283; J1171; Q0162

== ENCOUNTER 2025-04-17 00:01 | Emergency (ER) | payer MEDICAID, SELFPAY ==
[2025-04-17 00:02] VITALS: BMI 29.4
[2025-04-17 00:10] VITALS: BP 172/93; PULSE 100; RESP 20; TEMP 37.3; O2SAT 99
--- NOTE | 2025-04-17 00:18 | PD.EDRME ---
Rapid Medical Screening Exam RME Arrival date/time: 04/17/25 00:01 44F with history of cervical cancer s/p laser therapy 2018, non-malignant bladder mass, b/l hydronephrosis s/p b/l nephrostomy tube 11/2024, recurrent MDRO UTIs, T2DM, hx of pulmonary coccidioidomycosis s/p treatment presents to ED with 1 day of pelvic pain, N/V, and fevers/chills. Chief Complaint: Abdominal Pain Vital signs: Vital Signs Temperature 99.2 F 04/17/25 00:10 Pulse Rate 100 04/17/25 00:10 Respiratory Rate 20 04/17/25 00:10 Blood Pressure 172/93 H 04/17/25 00:10 Pulse Oximetry (%) 99 04/17/25 00:10 Oxygen Delivery Method Room Air 04/17/25 00:10 Exam: Appears to be in pain/crying. Clinical Impression: Cancer-related pain vs torsion vs kidney stone vs UTI vs pelvic pain vs appy vs diverticulitis vs drug use
[2025-04-17] MEDS: ONDANSETRON ODT 4 MG TABRAP PO (00:26)
[2025-04-17 00:42] LABS: Lactate (Lactic Acid) 1.1 mMol/L (0.4-2.0)
[2025-04-17 01:00] LABS: Basophils # (Auto) 0.1 Thou/mm3 (0.0-0.2); Basophils % (Auto) 1 % (0-2.5); Eosinophils # (Auto) 0.1 Thou/mm3 (0.0-0.5); Eosinophils % (Auto) 1 % (0-10); Hematocrit 33.7 % (36.0-46.0); Hemoglobin 11.0 g/dL (12.0-16.0); Immature Granulocytes Auto 0.05 Thou/mm3 (0.00-0.00); Lymphocytes # (Auto) 1.5 Thou/mm3 (1.0-4.8); Lymphocytes % (Auto) 13 % (10-50); Mean Corpuscular HGB Conc 32.6 g/dl (31.0-37.0); Mean Corpuscular Hemoglobin 27.5 pg (25.0-35.0); Mean Corpuscular Volume 84 fL (80-100); Monocytes # (Auto) 0.7 Thou/mm3 (0.0-0.8); Monocytes % (Auto) 6 % (0-12); Neutrophils # (Auto) 9.3 Thou/mm3 (1.8-7.7); Neutrophils % (Auto) 80 % (37-80); Nucleated Red Blood Cell # 0.00 Thou/mm3 (0.00-0.00); Nucleated Red Blood Cell % 0 /100 WBC (0); Platelet Count 517 Thou/mm3 (140-440); RDW Standard Deviation 46.2 fL (36.4-46.3); Red Blood Count 4.00 Miln/mm3 (4.00-5.20); White Blood Count 11.6 Thou/mm3 (3.6-11.0)
[2025-04-17 01:12] LABS: Alanine Aminotransferase 9 U/L (10-49); Albumin, Serum 4.6 gm/dL (3.5-5.0); Albumin/Globulin Ratio 1.4 (1.2-2.2); Alkaline Phosphatase 150 U/L (46-116); Anion Gap 11 (7-16); Aspartate Amino Transferase 15 U/L (0-34); BUN/Creatinine Ratio 8 Ratio (12-20); Bilirubin,Total 0.4 mg/dL (0.3-1.2); Blood Urea Nitrogen 11 mg/dL (9-23); Calcium 9.9 mg/dL (8.3-10.6); Calcium (Corrected) 9.9 mg/dL (8.5-10.1); Carbon Dioxide 24.8 mMol/L (20.0-31.0); Chloride 99 mMol/L (98-107); Creatinine (Component) 1.3 mg/dL (0.6-1.3); Estimated Creatinine Clearance 52.7 mL/min (>60); Globulin 3.2 gm/dL (2.3-3.5); Glucose 183 mg/dL (74-106); Osmolality,Calculated 274 (275-295); Potassium 4.3 mMol/L (3.4-5.1); Procalcitonin 0.12 ng/ml (0.0-0.49); Sodium 135 mMol/L (136-145); Total Protein 7.8 gm/dL (5.7-8.2); eGFR 53 See Note
== END 2025-04-17 01:16 | disposition left against medical advice (07) ==
LOC: SERX 00:35
PROVIDERS: Physician Assistant; Emergency Provider Emergency Medicine; PCP Family Medicine
DX: Z53.21 Procedure and treatment not carried out due to patient leaving prior to being seen by health care provider (principal)
CPT/HCPCS: 36415; 80053; 83605; 84145; 85025; 99282; Q0162; A9270

== ENCOUNTER 2025-04-30 19:52 | Inpatient (IN) | payer MEDICAID, SELFPAY ==
[2025-04-30] VITALS (7 sets, daily range): BP systolic 103–145; BP diastolic 49–73; PULSE 81–110; RESP 16–98; TEMP 37.6–38.9; O2SAT 97–98; BMI 27.8
--- NOTE | 2025-04-30 20:07 | XR_ITS ---
Examination: CT brain head without contrast. 2-D sagittal coronal reconstructions Date and time of exam: April 30, 2025, 2159 hours INDICATIONS: Severe headache today COMPARISON: August 18, 2024 CTDI: vol (mGy): 54.1 DLP: (mGycm): 1016 Technique: Multiple CT axial sections of the brain have been obtained, 5 mm slice thickness. Contrast has not been administered. 2-D sagittal, coronal reconstructions have been obtained Low dose protocols were performed. One or more of the following dose reduction techniques were used; automated exposure control, adjustment of the mA and/or KV according to patient size, use of iterative reconstruction technique. Findings: No significant ventricular enlargement. Intra-axial or extra-axial hemorrhage density is not seen. No mass effect or midline shift Basal cisterns are not remarkable. Fourth ventricle is midline. Cranial vault intact. Impression: Negative for acute hemorrhage, mass effect or midline shift
--- NOTE | 2025-04-30 20:36 | XR_ITS ---
EXAMINATION: AP chest single view TECHNIQUE: AP portable semiupright chest single view Date and time: April 30, 2025, 2046 hours, comparison March 30, 2025 INDICATIONS: Fever weakness shortness of breath today FINDINGS: Reduced inspiratory effort Normal heart size No pneumonia or pulmonary edema The osseous rectors are intact IMPRESSION: No active disease
--- NOTE | 2025-04-30 20:36 | EKG_ITS ---
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
--- NOTE | 2025-04-30 20:56 | PD.EDADULT ---
ED General RME/HPI General Chief complaint: Headache Stated complaint: HEADACHE Time Seen by Provider: 04/30/25 20:09 Arrival date/time: 04/30/25 19:52 Related Data Home Medications ?Medication ?Instructions ?Recorded ?Confirmed acetaminophen 500 mg tablet 1,000 mg PO Q6H 03/16/25 03/16/25 fluconazole 200 mg tablet 400 mg PO DAILY 03/16/25 03/16/25 insulin glargine-yfgn 100 unit/mL 30 unit subcut DAILY 03/16/25 03/16/25 (3 mL) subcutaneous pen insulin lispro 100 unit/mL 5 unit subcut TID 03/16/25 03/16/25 subcutaneous pen (Admelog SoloStar U-100 Insulin lispro) polyethylene glycol 3350 17 17 g PO QDAY 03/16/25 03/16/25 gram/dose oral powder Previous Rx's ?Medication ?Instructions ?Recorded carvedilol 25 mg tablet 25 mg PO BID #30 tabs 02/19/25 sulfamethoxazole 800 1 tab PO BID #4 tabs 02/19/25 mg-trimethoprim 160 mg tablet (Bactrim DS) hydrocortisone 2.5 % topical cream 1 applic MS QDAY PRN hemorrhoids 02/27/25 with perineal applicator #30 grams (Anusol-HC) amlodipine 10 mg tablet 10 mg PO QDAY #30 tabs 03/16/25 docusate sodium 100 mg capsule 100 mg PO QDAY PRN constipation 03/16/25 (Stool Softener) #30 caps hydrocodone 10 mg-acetaminophen 1 tab PO Q8H PRN pain #15 tabs 03/16/25 325 mg tablet hydrocodone 5 mg-acetaminophen 325 2 tab PO Q8H PRN pain #20 tabs 03/30/25 mg tablet acetaminophen 300 mg-codeine 30 mg 1 tab PO TID PRN pain #20 tabs 04/01/25 tablet Allergies Allergy/AdvReac Type Severity Reaction Status Date / Time No Known Allergies Allergy Verified 04/17/25 00:06 ED Exam Narrative Physical exam: Physical Exam: GENERAL: Awake, appears in mild distress, appears stated age HEENT: NC/AT. Moist mucosa. PERRLA/EOMI. Poor dentition CARDIO: Heart RRR, no obvious murmurs, no JVD. PULM: No coughing or visible SOB. Lungs CTA B/L. GI: Abdomen tender to palpation near flank region, otherwise soft nondistended with mild guarding. 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 +Pedal pulses present B/L. NEURO: Oriented x3, Moves extremities x4, no focal neurologic deficits noted. Course Quality Measures none Orders Category Date Time Status Deputy K 9 STAT Care 04/30/25 20:36 Active Continuous Pulse Oximetry STAT Care 04/30/25 20:36 Completed EKG (ED ONLY) *Do not use* NOW Care 04/30/25 20:36 Completed IV [Insert IV] NOW Care 04/30/25 20:08 Active In and Out Catheter X1PRN Care 04/30/25 20:36 Active NPO STAT Care 04/30/25 20:36 Active Strict Intake and Output Routine Care 04/30/25 20:[address] head/brain wo con Stat Exams 04/30/25 20:07 Completed EKG (ED Only) Stat Exams 04/30/25 20:36 Draft XR chest 1V portable Stat Exams 04/30/25 20:36 Completed B-Type Natriuretic Peptide Stat Lab 04/30/25 20:46 Completed Beta HCG,Quantitative Stat Lab 04/30/25 20:46 Completed Blood Culture (Lab) Stat Lab 04/30/25 20:46 Received CBC Stat Lab 04/30/25 20:46 Completed CMP [Comprehensive Metabolic Panel] Stat Lab 04/30/25 20:46 Completed LDH (Lactate Dehydrogenase) Stat Lab 04/30/25 20:46 Completed Lactate (Lactic Acid) Stat Lab 04/30/25 20:46 Results Lactic Acid [Lactate (Lactic Acid)] Stat Lab 04/30/25 22:57 Results Lipase Stat Lab 04/30/25 20:46 Completed Magnesium Stat Lab 04/30/25 20:46 Completed Partial Thromboplastin Time Stat Lab 04/30/25 20:46 Completed Phosphorous Stat Lab 04/30/25 20:46 Completed Procalcitonin Stat Lab 04/30/25 20:46 Completed Prothrombin Time with INR Stat Lab 04/30/25 20:46 Completed Renal Function Panel Stat Lab 04/30/25 22:57 Completed Troponin I Stat Lab 04/30/25 20:46 Completed Urinalysis, C/S if Indicated Stat Lab 04/30/25 20:49 Completed Urine Culture Stat Lab 04/30/25 20:49 Received 3.375 gm x1 Med 05/01/25 00:04 Ordered Piper/Tazo 3.375 gm Premix [Zosyn] 3.375 gm in 50 ml IV X1 Acetaminophen Ivpb [Ofirmev Inj] Med 04/30/25 21:35 Discontinued 1,000 mg in 100 ml IV X1 Acetaminophen Tab [Tylenol Tab] Med 04/30/25 21:52 Discontinued 650 mg PO X1 ONE Magnesium Sulfate 4 GM Ivpb [Magnesium Sulfate Ivpb] Med 04/30/25 21:55 Active 4 gm in 50 ml IV X1 Metoclopramide Inj [Reglan Inj] Med 04/30/25 21:35 Discontinued 10 mg IVP X1 ONE Morphine* Inj Med 04/30/25 20:08 Discontinued 4 mg IVP X1 ONE Ringers Lactated 1000 ml [Lactated Ringers] 1,503 ml Med 04/30/25 20:36 Discontinued IV 1,503 mls/hr Oxygen Delivery NOW RT 04/30/25 20:36 Active Vital Signs Vital signs: Vital Signs Temperature 102.1 F H 04/30/25 20:01 Pulse Rate 97 04/30/25 20:01 Respiratory Rate 18 04/30/25 20:01 Blood Pressure 145/73 H 04/30/25 20:01 Pulse Oximetry (%) 97 04/30/25 20:01 Oxygen Delivery Method Room Air 04/30/25 20:01 Discharge Plan Plan Patient Disposition: Admit Acute Care w/in Hospital Prescriptions/Referrals Prescriptions/Med Rec: No Action carvedilol 25 mg tablet 25 mg PO BID Qty: 30 0RF Patient Comments: TAKE 1 TABLET BY MOUTH TWICE DAILY WITH MEALS FOR 30 DAYS sulfamethoxazole-trimethoprim [Bactrim DS] 800-160 mg tablet 1 tab PO BID Qty: 4 0RF insulin glargine-yfgn 100 unit/mL (3 mL) insulin pen 30 unit SUBCUT DAILY fluconazole 200 mg tablet 400 mg PO DAILY Patient Comments: TAKE 2 TABLETS BY MOUTH ONCE DAILY FOR 28 DAYS polyethylene glycol 3350 17 gram/dose powder 17 g PO QDAY acetaminophen 500 mg tablet 1,000 mg PO Q6H insulin lispro [Admelog SoloStar U-100 Insulin] 100 unit/mL insulin pen 5 unit SUBCUT TID Patient Comments: INJECT 5 UNITS SUBCUTANEOUSLY THREE TIMES DAILY WITH MEALS PER SLIDING SCALE MAX 20 UNITS PER DAY hydrocodone-acetaminophen 10-325 mg tablet 1 tab PO Q8H MDD one tab upto 3 times daily PRN (Reason: pain) Qty: 15 0RF amlodipine 10 mg tablet 10 mg PO QDAY Qty: 30 0RF docusate sodium [Stool Softener] 100 mg capsule 100 mg PO QDAY PRN (Reason: constipation) Qty: 30 0RF acetaminophen-codeine 300-30 mg tablet 1 tab PO TID PRN (Reason: pain) Qty: 20 0RF hydrocortisone [Anusol-HC] 2.5 % cream with perineal applicator 1 applic MS QDAY PRN (Reason: hemorrhoids) Qty: 30 0RF hydrocodone-acetaminophen 5-325 mg tablet 2 tab PO Q8H MDD 6 PRN (Reason: pain) Qty: 20 0RF Referrals: No Primary/Family,Physician [Primary Care Provider] - In 1 week Problem List Clinical Impression: Complicated urinary tract infection Patient/Caregiver Discharge Instructions Print Language: Andorran Stand Alone Forms: Nina Award Info., Patient Portal Info Letter MD Attestation MD Attestation I, Dr. Palencia, have reviewed the history, exam, and assessment of the patient. I have evaluated the patient independently and agree with the plan of care documented by the resident Dr. Patel. All diagnostic studies were reviewed and discussed. I confirm the diagnosis as documented by the resident. I was present during the Medical Decision Making for this patient. The patient?s plan of care was created between myself and the resident and consistent with our discussion of the patient?s case. MDM Narrative MDM hospital course (for use when minimal MDM required): HPI 44-year-old female with past medical history of cervical cancer with bilateral ureteral obstruction status post bilateral nephrostomy tube placement, hypertension, insulin-dependent type 2 diabetes presenting to the ED on 04/30 with severe headache initially. Patient states that headache started sometime in the afternoon and has progressively worsened she states it is the worst headache of her life. The headache is all around her head and she states she took her home 30 mg morphine which she takes for her oncologic issue. A stat CT head was ordered which was negative for any acute findings. Patient progressively improved and did not have any significant headache afterwards. On examination please see physical exam note above. Patient's vitals at this time mildly hypotensive 103/49, heart rate of 81, respiratory rate 16, afebrile but did receive Tylenol, and presented with a Tmax of 102.1 ?F and saturating 98 on room air. Laboratory findings included WBC of 16.8, with left shift 94% neutrophil, normocytic anemia likely anemia of chronic disease, CMP does show hypochloremic hyponatremia, SAPPHIRE with a creatinine 1.4, GFR 48, lactic acid of 2.6 improved to 2.2 with IV fluid resuscitation, magnesium 1.3 currently being repleted, urinalysis does show signs of infection with positive leukocyte esterase and +4 bacteria, pyuria and hematuria. #Complicated UTI #Presence of bilateral nephrostomy tubes secondary to ureteral obstruction from cervical cancer As noted, patient is presenting with sepsis secondary to UTI with elevated white blood cell count, fever and appears debilitated Patient's bilateral nephrostomy tubes have not been changed for roughly 6 months and to correctly treat complicated UTI they must be exchanged. Plan: Sepsis protocol initiated, IV fluid resuscitation, IV Zosyn 3.375 Gokul Urgent urology consultation required as patient can develop septic shock if not treated correctly Patient seen and assessed with attending Dr. Talha Patel, DO PGY-2 Internal Medicine - [facility]ME Medication Administration(s) Medication Administration History Magnesium Sulfate (Magnesium Sulfate Ivpb) 4 gm in 50 mls @ 12.5 mls/hr IV X1 ONE Stop: 05/01/25 01:54 Last Admin: 04/30/25 22:10 Dose: 12.5 mls/hr Documented By: CHRIS Discontinued Medications Acetaminophen (Acetaminophen 325 Mg Tablet) 650 mg PO X1 ONE Stop: 04/30/25 21:53 Last Admin: 04/30/25 22:10 Dose: 650 mg Documented By: CHRIS Lactated Ringer's (Lactated Ringers) 1,503 mls @ 1,503 mls/hr 30 ml/kg infuse over 60 min (1503 ml) IV .Q1H ONE Stop: 04/30/25 21:35 Last Infusion: 04/30/25 22:33 Dose: Infused Documented By: Admin: 04/30/25 20:42 Dose: 1,503 mls/hr Documented By: CHRIS Acetaminophen (Ofirmev Inj) 1,000 mg in 100 mls @ 250 mls/hr IV X1 ONE Stop: 04/30/25 21:58 Last Admin: 04/30/25 22:03 Dose: Not Given Documented By: CHRIS Non-Admin Reason: Cancelled by Provider Metoclopramide HCl (Metoclopramide Inj 5 Mg/Ml Vial 2 Ml) 10 mg IVP X1 ONE; Protocol Stop: 04/30/25 21:36 Last Admin: 04/30/25 22:03 Dose: Not Given Documented By: CHRIS Non-Admin Reason: Change of Condition Morphine Sulfate (Morphine Sulf Inj 4 Mg/Ml Vial) 4 mg IVP X1 ONE Stop: 04/30/25 20:09 Last Admin: 04/30/25 21:08 Dose: Not Given Documented By: CHRIS Non-Admin Reason: Change of Condition
[2025-04-30 21:15] LABS: Collection Type, Urine Clean Catch; Squamous Epithelial Cell,Urine 0 /hpf (0-5)
[2025-04-30 21:19] LABS: Lactate (Lactic Acid) 2.6 mMol/L (0.4-2.0)
[2025-04-30 21:20] LABS: Basophils # (Auto) 0.0 Thou/mm3 (0.0-0.2); Basophils % (Auto) 0 % (0-2.5); Eosinophils # (Auto) 0.0 Thou/mm3 (0.0-0.5); Eosinophils % (Auto) 0 % (0-10); Hematocrit 29.3 % (36.0-46.0); Hemoglobin 9.7 g/dL (12.0-16.0); Immature Granulocytes Auto 0.09 Thou/mm3 (0.00-0.00); Lymphocytes # (Auto) 0.6 Thou/mm3 (1.0-4.8); Lymphocytes % (Auto) 4 % (10-50); Mean Corpuscular HGB Conc 33.1 g/dl (31.0-37.0); Mean Corpuscular Hemoglobin 27.9 pg (25.0-35.0); Mean Corpuscular Volume 84 fL (80-100); Monocytes # (Auto) 0.3 Thou/mm3 (0.0-0.8); Monocytes % (Auto) 2 % (0-12); Neutrophils # (Auto) 15.7 Thou/mm3 (1.8-7.7); Neutrophils % (Auto) 94 % (37-80); Nucleated Red Blood Cell # 0.00 Thou/mm3 (0.00-0.00); Nucleated Red Blood Cell % 0 /100 WBC (0); Platelet Count 551 Thou/mm3 (140-440); RDW Standard Deviation 43.4 fL (36.4-46.3); Red Blood Count 3.48 Miln/mm3 (4.00-5.20); White Blood Count 16.8 Thou/mm3 (3.6-11.0)
[2025-04-30 21:38] LABS: Bacteria,Urine 4+; Bilirubin,Urine Negative (Negative); Blood,Urine 1+ (Negative); Color,Urine Yellow (Lt Yel-Yel); Glucose, Urine Negative (Negative); Ketones,Urine Negative (Negative); Leukocyte Esterase,Urine Positive (Negative); Nitrite,Urine Negative (Negative); PH,Urine 6.5 (5.0-7.0); Protein,Urine 3+ (Neg - Trace); RBC,Urine 27 /hpf (0-3); Specific Gravity,Urine 1.011 (1.001-1.035); Urobilinogen,Urine Negative mg/dL (0.0-1.0); WBC,Urine 1186 /hpf (0-5)
[2025-04-30 21:39] LABS: Clarity,Urine Turbid (Clear/Hazy); Culture Indicated,Urine Yes
[2025-04-30 21:41] LABS: INR 1.0 (0.9-1.3); Partial Thromboplastin Time 26.7 Seconds (22.0-36.0); Prothrombin Time 10.8 Seconds (9.0-12.2)
[2025-04-30 21:51] LABS: Alanine Aminotransferase < 7 U/L (10-49); Albumin, Serum 4.1 gm/dL (3.5-5.0); Albumin/Globulin Ratio 1.3 (1.2-2.2); Alkaline Phosphatase 109 U/L (46-116); Anion Gap 12 (7-16); Aspartate Amino Transferase 11 U/L (0-34); BUN/Creatinine Ratio 16 Ratio (12-20); Beta HCG,Quantitative < 1 mIU/mL (<5.0); Bilirubin,Total 0.2 mg/dL (0.3-1.2); Blood Urea Nitrogen 23 mg/dL (9-23); Calcium 8.9 mg/dL (8.3-10.6); Calcium (Corrected) 8.9 mg/dL (8.5-10.1); Carbon Dioxide 24.0 mMol/L (20.0-31.0); Chloride 97 mMol/L (98-107); Creatinine (Component) 1.4 mg/dL (0.6-1.3); Estimated Creatinine Clearance 47.6 mL/min (>60); Globulin 3.2 gm/dL (2.3-3.5); Glucose 197 mg/dL (74-106); LDH (Lactate Dehydrogenase) 149 U/L (120-246); Lipase 36 U/L (12-53); Magnesium 1.3 mg/dL (1.6-2.6); Osmolality,Calculated 275 (275-295); Phosphorous 3.0 mg/dL (2.4-5.1); Potassium 4.3 mMol/L (3.4-5.1); Procalcitonin 0.16 ng/ml (0.0-0.49); Sodium 133 mMol/L (136-145); Total Protein 7.3 gm/dL (5.7-8.2); Troponin I < 0.020 ng/mL (0.0-0.045); eGFR 48 See Note
[2025-04-30] MEDS: Magnesium Sulfate 4 GM Ivpb 4 GM/50 ML BAG IV (22:10)
[2025-04-30] MEDS: ACETAMINOPHEN 325 MG TABLET 650 MG PO (22:10)
[2025-04-30 22:11] LABS: B-Type Natriuretic Peptide 172 pg/mL (0-100)
[2025-04-30 23:04] LABS: Lactate (Lactic Acid) 2.2 mMol/L (0.4-2.0)
[2025-04-30 23:57] LABS: Albumin, Serum 3.3 gm/dL (3.5-5.0); Anion Gap 10 (7-16); BUN/Creatinine Ratio 18 Ratio (12-20); Blood Urea Nitrogen 25 mg/dL (9-23); Calcium 8.3 mg/dL (8.3-10.6); Calcium (Corrected) 8.9 mg/dL (8.5-10.1); Carbon Dioxide 24.9 mMol/L (20.0-31.0); Chloride 98 mMol/L (98-107); Creatinine (Component) 1.4 mg/dL (0.6-1.3); Estimated Creatinine Clearance 47.6 mL/min (>60); Glucose 158 mg/dL (74-106); Osmolality,Calculated 273 (275-295); Phosphorous 3.5 mg/dL (2.4-5.1); Potassium 4.2 mMol/L (3.4-5.1); Sodium 133 mMol/L (136-145); eGFR 48 See Note
[2025-05-01] VITALS (16 sets, daily range): BP systolic 110–179; BP diastolic 49–91; PULSE 77–93; RESP 15–24; TEMP 36.2–37.5; O2SAT 93–100; BMI 28.5
--- NOTE | 2025-05-01 | XR_ITS ---
EXAMINATION: Right nephrostogram Fluoroscopy PA abdomen 2 views Date and time: April 01, 2025, 11:11 a.m. INDICATIONS: Bladder carcinoma diagnosis, urinary tract infections, request to replace the nephrostomy tube FINDINGS: Patient uncooperative, no successful pain control, unable to tolerate the procedure No successful placement of a wire guided down the right ureter for nephrostomy tube exchange Nephrostomy fluoroscopy 3.3-minute radiation dose 78.99 mGy 2 spot fluoroscopic films IMPRESSION: Pain control could not be obtained for successful replacement of the nephrostomy tube
[2025-05-01 00:16] LABS: Reflex Lactate? Y
[2025-05-01] MEDS: PIPER/TAZO 3.375 GM PREMIX 3.375 GM/50 ML BAG IV (00:45)
--- NOTE | 2025-05-01 00:45 | PC.NURSE ---
0045 KATY CONTACTED T SENT DR ALFONSO SPEAKING WITH TRN AT THIS TIME.
[2025-05-01] MEDS: SODIUM CHLORIDE 0.9% 500 ML 500 ML 999 ML IV (01:31)
[2025-05-01 02:03] LABS: Reflex Lactate? Y
[2025-05-01 02:05] LABS: Squamous Epithelial Cell,Urine 0 /hpf (0-5)
--- NOTE | 2025-05-01 02:05 | ESHP_ITS ---
<Statement entered by Hi Walker MD - 05/05/25 02:37> I have personally seen and examined the patient, agree with residents assessment and plan Patient plan of care was discussed with the attending physician, Dr. Seven Walker, PGY2 Documentation for date of: 05/01/25 HPI History of Present Illness Chief complaint: Headache History of present illness: This patient is a 44-year-old female with a history of cervical cancer s/p laser therapy 2018, non-malignant bladder mass status post bilateral nephrostomy tube placement, recurrent multidrug resistant UTIs, hypertension, valley fever, and insulin-dependent type 2 diabetes mellitus who presented to [facility] ED on 04/30 for worsening headache. Patient was admitted for management of pyelonephritis and nephrostomy tube exchange. The patient stated that early afternoon, the patient suddenly had a headache that progressively worsened over time. The headache is described as wrapping around her head and the patient had improvement in her pain after taking oral morphine that she has been previously prescribed. On admission, the patient only has a lingering pain in her head that she described as a fullness/throbbing pain. CT head taken in the ED was negative for any acute processes. During stay in the ED, the patient ended up not needing any pain medication. Of note, the patient has an extensive history regarding cervical cancer causing bilateral ureteral obstruction. Per chart review on the patient's previous admission from 03/14 to 03/16, the patient had a history of cervical cancer that was status post laser therapy back in 2018. The patient was also noted to have a nonmalignant bladder mass on pathology, which was causing hydronephrosis and resulted in nephrostomy tube placement back in November 2024. According to the patient, she stated that she has only had a cervical cancer that resulted in compression of her bladder. However according to chart review, in-house BRACER at [facility] stated that her cervical mass identified by transvaginal ultrasound on 03/13/25 there is likely not cervical cancer, and in addition, no biopsy was performed at [facility] has BRACER reports that the patient had a cervical biopsy done on 03/11 at an outside facility. It is unclear what had transpired afterwards as the patient was discharged from the hospital, but according to the patient, she was told that she does in fact have cervical cancer and has recently started radiation therapy on 04/27 with plans for daily radiation therapy and has had 1 dose of chemotherapy thus far. During the patient's previous hospitalization at [facility], radiation oncology was consulted for the patient's pulmonary nodules, benign bladder tumor, and at the time possible cervical cancer. The patient however states that she now follows Dr. Mckeon in [place] for management of her malignancies. The patient does endorse pain in her right flank area and itching sensation when she urinates. Patient denies fevers, chills, chest pain, shortness of breath, and abdominal pain. ED Course: Initial vitals significant for blood pressure of 145/73 and temperature of 102.1 ?F, however blood pressure did drop to 103/49 prior to admission. Initial labs significant for WBC 16.8, hemoglobin 9.7, platelet count of 551, sodium 133, creatinine of 1.4, lactic acid of 2.2, and magnesium of 1.3. Urinalysis positive for 3+ protein, 1+ blood, 27 RBC, 1186 WBC, 4+ bacteria, and leukocyte esterase. CT head negative for acute processes. Initially attempted to transfer patient to outside facility, however was told by urologist in outside facility to treat with antibiotics and have IR exchange nephrostomy tubes. Sepsis alert was called and patient was given 1.5 L of LR, IV acetaminophen 1 g, and magnesium was repleted. Patient also received one-time dose of Zosyn. Past Surgical History: Allergies (w/ Reactions): NKDA Family History: Noncontributory Alcohol Intake: Patient denies Tobacco/Vape Use: Patient denies Other Drug Use: Patient denies Recent Travel History: Patient denies Review of Systems Review of Systems Systems Reviewed: All systems reviewed, normal except as documented Exam Vital Signs Temp Pulse Resp BP Pulse Ox O2 Del Method 98.8 F 85 16 110/49 L 99 Room Air 05/01/25 01:34 05/01/25 01:34 05/01/25 01:34 05/01/25 01:34 05/01/25 01:34 05/01/25 01:34 Narrative Exam Physical Exam: General: Sleepy, no acute distress. Bilateral nephrostomy tubes in place connected to nephrostomy bag. Skin: Warm, dry, intact. Head: Normocephalic, atraumatic. Eye: Normal conjunctiva, PERRL. Throat: Oral mucosa dry. No obvious lesions in oropharynx. Cardiovascular: Regular rate and rhythm, no murmur, +S1/S2. Respiratory: Lungs are clear to auscultation, respirations unlabored, no crackles, no wheezing. Gastrointestinal: Soft, nontender, non-distended. Suprapubic pain significantly tender to light palpation. Right flank tenderness to light palpation. No guarding or rebound tenderness. Extremities: No edema, no cyanosis, no clubbing. 2+ radial pulse bilaterally, 2+ pedal pulse bilaterally. Neuro: No focal deficits observed. Conversant, moving all extremities. No overt cerebellar signs/incoordination. Psychiatric: Cooperative, flat and slow affect. Results: Labs 05/04/25 05:26 05/04/25 05:26 Labs: Short CBC 04/30/25 Range/Units 20:46 WBC 16.8 H (3.6-11.0) Thou/mm3 Hgb 9.7 L (12.0-16.0) g/dL Hct 29.3 L (36.0-46.0) % Plt Count 551 H D (140-440) Thou/mm3 BMP 04/30/25 04/30/25 20:46 22:57 Sodium 133 L 133 L Potassium 4.3 4.2 Chloride 97 L 98 Carbon Dioxide 24.0 24.9 BUN 23 25 H Creatinine 1.4 H 1.4 H Glucose 197 H 158 H Calcium 8.9 8.3 Cardiac Enzymes 04/30/25 Range/Units 20:46 Troponin I < 0.020 (0.0-0.045) ng/mL Liver Function 04/30/25 04/30/25 Range/Units 20:46 22:57 Total Bilirubin 0.2 L (0.3-1.2) mg/dL AST 11 (0-34) U/L ALT < 7 L (10-49) U/L Alkaline Phosphatase 109 (46-116) U/L Albumin 4.1 3.3 L D (3.5-5.0) gm/dL Urine 04/30/25 Range/Units 20:49 Urine Color Yellow (Lt Yel-Yel) Urine Clarity Turbid A (Clear/Hazy) Urine pH 6.5 (5.0-7.0) Ur Specific [place] 1.011 (1.001-1.035) Urine Protein 3+ A (Neg - Trace) Urine Glucose (UA) Negative (Negative) Quality Measures Quality Measures VTE prophylaxis Medications Home Medications and Allergies Home Medications ?Medication ?Instructions ?Recorded ?Confirmed ?Type insulin glargine-yfgn 100 unit/mL 30 unit subcut DAILY 03/16/25 05/01/25 History (3 mL) subcutaneous pen insulin lispro 100 unit/mL 5 unit subcut TID 03/16/25 05/01/25 History subcutaneous pen (Admelog SoloStar U-100 Insulin lispro) polyethylene glycol 3350 17 17 g PO QDAY 03/16/2510/19 History gram/dose oral powder hydrocodone 10 mg-acetaminophen 1 tab PO Q6H PRN pain 05/01/25 05/01/25 History 325 mg tablet losartan 100 mg tablet 100 mg PO .QD 05/01/2505/03 History morphine 30 mg tablet,extended 30 mg PO Q12H 05/01/25 05/01/25 History release olanzapine 2.5 mg tablet 2.5 mg PO QPM PRN nausea 10/1905/01/25 History docusate sodium 100 mg capsule 100 mg PO BID PRN const ipation 05/03/25 05/03/25 History (Stool Softener) famotidine 20 mg tablet 20 mg PO DAILY 05/03/2512/19 History fluconazole 200 mg tablet 200 mg PO DAILY 05/03/2512/19 History hydralazine 50 mg tablet 50 mg PO TID 05/03/25 History Allergies Allergy/AdvReac Type Severity Reaction Status Date / Time No Known Allergies Allergy Verified 04/17/25 00:06 Visit Medications Acetaminophen (Acetaminophen 325 Mg Tablet) 650 mg PO Q6H PRN PRN Reason: Fever >101.5 or pain 1-3 Stop: 05/31/25 01:44 Hydrocodone Bitart/Acetaminophen (Hydrocodone/Apap 10/325 Tab) 1 tab PO Q6H PRN PRN Reason: pain 4-10 Stop: 05/06/25 01:49 Docusate Sodium (Docusate Sod 100 Mg Capsule) 100 mg PO QDAY PRN; Protocol PRN Reason: CONSTIPATION Stop: 05/31/25 01:49 Lactated Ringer's (Lactated Ringers) 1,000 mls @ 100 mls/hr IV .Q10H [facility] Stop: 05/31/25 01:41 Cefepime HCl 2 gm/ Sodium (Chloride) 50 mls @ 100 mls/hr IV Q12HR [facility] Stop: 05/08/25 01:42 Cefepime HCl 2 gm/ Sodium (Chloride) 50 mls @ 100 mls/hr IV X1 ONE Stop: 05/01/25 02:29 Morphine Sulfate (Morphine Sulf 30 Mg Tabcr) 30 mg PO Q12H [facility]; Protocol Stop: 05/06/25 01:59 Olanzapine (Olanzapine 2.5 Mg Tablet) 2.5 mg PO QPM PRN PRN Reason: Breakthrough nausea Stop: 05/31/25 01:49 Ondansetron HCl (Ondansetron Inj 2 Mg/Ml Inj 2 Ml) 4 mg IVP Q6H PRN; Protocol PRN Reason: NAUSEA OR VOMITING Stop: 05/31/25 01:44 Polyethylene Glycol (Polyethylene Glycol 17 Gm Packet) 17 gm PO QDAY [facility] Stop: 05/31/25 08:59 Discontinued Medications Acetaminophen (Acetaminophen 325 Mg Tablet) 650 mg PO X1 ONE Stop: 04/30/25 21:53 Last Admin: 04/30/25 22:10 Dose: 650 mg Lactated Ringer's (Lactated Ringers) 1,503 mls @ 1,503 mls/hr 30 ml/kg infuse over 60 min (1503 ml) IV .Q1H ONE Stop: 04/30/25 21:35 Last Infusion: 04/30/25 22:33 Dose: Infused Acetaminophen (Ofirmev Inj) 1,000 mg in 100 mls @ 250 mls/hr IV X1 ONE Stop: 04/30/25 21:58 Last Admin: 04/30/25 22:03 Dose: Not Given Magnesium Sulfate (Magnesium Sulfate Ivpb) 4 gm in 50 mls @ 12.5 mls/hr IV X1 ONE Stop: 05/01/25 01:54 Last Infusion: 05/01/25 02:01 Dose: Infused Piperacillin/Tazobactam/Dextrose (Zosyn) 3.375 gm in 50 mls @ 100 mls/hr IV X1 ONE; Protocol Stop: 05/01/25 00:33 Last Infusion: 12/05/25 01:14 Dose: Infused Sodium Chloride (Ns) 500 mls @ 999 mls/hr IV .Q31M [facility]MENTINE Stop: 05/31/25 01:16 Last Admin: 05/01/25 01:22 Dose: Not Given Sodium Chloride (Ns) 500 mls @ 999 mls/hr IV .Q31M ONE Stop: 05/01/25 01:51 Last Admin: 05/01/25 01:31 Dose: 999 mls/hr Metoclopramide HCl (Metoclopramide Inj 5 Mg/Ml Vial 2 Ml) 10 mg IVP X1 ONE; Protocol Stop: 04/30/25 21:36 Last Admin: 04/30/25 22:03 Dose: Not Given Morphine Sulfate (Morphine Sulf Inj 4 Mg/Ml Vial) 4 mg IVP X1 ONE Stop: 04/30/25 20:09 Last Admin: 04/30/25 21:08 Dose: Not Given Assessment & Plan Plan This patient is a 44-year-old female with a history of cervical cancer s/p laser therapy 2018, non-malignant bladder mass status post bilateral nephrostomy tube placement, recurrent multidrug resistant UTIs, hypertension, valley fever, and insulin-dependent type 2 diabetes mellitus who presented to [facility] ED on 04/30 for worsening headache. Patient was admitted for management of pyelonephritis and nephrostomy tube exchange. #Pyelonephritis #Right flank pain #Leukocytosis #Non-malignant bladder mass (urothelial papilloma) causing #Bilateral hydronephrosis s/p bilateral nephrostomy tube placement (11/2024) #History of recurrent multidrug resistant UTIs Patient noted to have fever in the ED and was found to have leukocytosis with elevated lactic acid. Patient has a history of bilateral nephrostomy tubes for urothelial papilloma and recurrent multidrug-resistant UTIs. Additionally, urinalysis was highly suggestive of an infection, and in conjunction with the patient's right flank pain, this is a complicated UTI suggestive of pyelonephritis. Per patient, she has not had nephrostomy tube replacement since they replaced back in November. Diagnostic: Patient noted to have fever of 102.1 ?F in ED WBC in ED 16.8 and lactic acid 2.2 Treatment: Cefepime 2 g every 12 hours (05/01?) Bactrim double strength 1 tablet twice daily (05/01?) Urine cultures ordered x 2, pending Blood cultures ordered 04/30, pending IR nephrostomy tube exchange ordered, pending Patient n.p.o #Cervical cancer #History of cervical mass (previously 19 x 15 x 24 mm) #History of cervical cancer s/p laser therapy (2018) Patient noted to have a cervical mass, previously identified as 19 x 15 x 24 mm on transvaginal ultrasound. Patient obtained biopsy in outside facility, and has been referred to Dr. Mckeon in [place] for management with chemotherapy (only 1 dose has been given so far) and daily radiation therapy (started on 04/27). Diagnostic: Transvaginal ultrasound 03/13/2025 shows calcified cervical mass measuring 19 x [address] abdomen/pelvis on 04/01/2025 shows subcentimeter abdominal and pelvic lymph nodes Treatment: Patient to follow-up outpatient Consider consult to radiation oncology Zofran as needed for nausea/vomiting Resumed patient's home olanzapine 2.5 mg nightly as needed for nausea/vomiting Resumed patient's home morphine 30 mg p.o. every 12 hours and [place] every 6 hours as needed for breakthrough pain #Pulmonary masses, right upper lobe and right lower lobe #Metastatic pulmonary masses Patient noted to have a history of pulmonary masses suspicious for nodular pulmonary metastatic disease. Diagnostic: CT chest/abdomen/pelvis on 03/14/2025 shows a 23 mm mass in the right upper lobe and a 23 mm mass in the right lower lobe CT abdomen/pelvis on 04/01 visualized mass in right lower lobe Treatment: Patient to follow-up outpatient #Insulin dependent type 2 diabetes Patient noted to have a history of insulin-dependent diabetes mellitus and uses 30 units of insulin glargine daily and 5 units of insulin lispro with meals Treatment: Sliding scale insulin Bedside glucose checks every 6 hours as patient is n.p.o. Insulin degludec 30 units daily insulin lispro 5 units AC once patient has been cleared from n.p.o. #Anemia, normocytic Patient noted to have hemoglobin of 9.7 on initial labs. Since this is normocytic, likely secondary to anemia of chronic disease, especially given the patient's recurrent UTIs. Treatment: Manage underlying infection Patient to follow-up outpatient #History of hypertension Patient has a history of hypertension to which she takes losartan 100 mg at home. 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 Treatment: Fluconazole 400 mg daily #History of constipation Patient does have a history of constipation likely secondary to her opiate use. Treatment: Resumed patient's home docusate 100 mg daily as needed for constipation DVT Prophylaxis: SCDs GI Prophylaxis: N/A Bowel: Docusate PRN Diet: NPO Oliva: N/A Lines: PIV, Nephrostomy tubes Antibiotics: Cefepime & Bactrim Code Status: FULL Reason for Hospitalization: Pyelonephritis Other Barriers to Discharge: Nephrostomy tube exchange Patient plan of care was discussed with the senior resident Dr. Walker (PGY-2) and attending physician Dr. Seven Cortes, PGY1 Attending Provider Attestation/Addendum After examination of the patient and review of the clinical data I feel that this patient needs admission to the hospital for further treatment/evaluation. Plan of care discussed with patient and is in agreement. I Renetta Amezcua MD, attest that I was physically present for oconnor portions of evaluation, and examined patient, labs and imagings and plan of care were discussed with IM residents team, and I agree with the findings and plans documented above.
[2025-05-01] MEDS: RINGERS LACTATED 1000 ML 1,000 ML 100 ML IV (02:07)
[2025-05-01] MEDS: CEFEPIME INJ 2 GM in SODIUM CHLORIDE 0.9% (Popper) 50 ML IV ×3 (02:08→20:30)
[2025-05-01] MEDS: MORPHINE SULF 30 MG TABCR PO (02:08)
[2025-05-01 02:20] LABS: Lactic Acid, 3 HR 1.4 mMol/L (0.4-2.0)
[2025-05-01 02:29] LABS: Bacteria,Urine 3+; Bilirubin,Urine Negative (Negative); Blood,Urine 1+ (Negative); Color,Urine Yellow (Lt Yel-Yel); Glucose, Urine Negative (Negative); Ketones,Urine Negative (Negative); Leukocyte Esterase,Urine Positive (Negative); Nitrite,Urine Negative (Negative); PH,Urine 6.0 (5.0-7.0); Protein,Urine 2+ (Neg - Trace); RBC,Urine 28 /hpf (0-3); Specific Gravity,Urine 1.009 (1.001-1.035); Urobilinogen,Urine Negative mg/dL (0.0-1.0); WBC,Urine 800 /hpf (0-5)
[2025-05-01 02:35] LABS: Clarity,Urine Turbid (Clear/Hazy); Culture Indicated,Urine Yes
[2025-05-01 02:36] LABS: Collection Type, Urine Clean Catch
[2025-05-01] MEDS: TRIMETHOPRIM/SULFA 160/800 DS TABLET 1 TAB PO ×3 (02:45→20:31)
--- NOTE | 2025-05-01 04:39 | PC.NURSE ---
REPORT GIVEN TO FLOOR NURSE MARY
[2025-05-01 04:55] LABS: Collection Type, Urine Clean Catch; Squamous Epithelial Cell,Urine 0 /hpf (0-5)
[2025-05-01 05:01] LABS: Bacteria,Urine 4+; Bilirubin,Urine Negative (Negative); Blood,Urine Trace (Negative); Clarity,Urine Turbid (Clear/Hazy); Color,Urine Lt-Yellow (Lt Yel-Yel); Culture Indicated,Urine Yes; Glucose, Urine Negative (Negative); Ketones,Urine Negative (Negative); Leukocyte Esterase,Urine Positive (Negative); Nitrite,Urine Positive (Negative); PH,Urine 6.5 (5.0-7.0); Protein,Urine 2+ (Neg - Trace); RBC,Urine 20 /hpf (0-3); Specific Gravity,Urine 1.009 (1.001-1.035); Urobilinogen,Urine Negative mg/dL (0.0-1.0); WBC,Urine 431 /hpf (0-5)
--- NOTE | 2025-05-01 07:00 | XR_ITS ---
Examination: Left nephrostogram Insertion new left percutaneous nephrostomy tube Fluoroscopy 2 spot fluoroscopic abdomen films Date and time of procedure: May 01, 2025, 0927 hours INDICATIONS: Diagnosis bladder cancer, urinary tract infections, need for replacement of nephrostomy tubes Informed consent provided. A timeout was completed verifying correct patient, procedure, site and positioning. Technique: Appropriate area is marked. The patient's site was prepped and draped in sterile fashion Maximal sterile barrier technique utilized, including hand hygiene Local anesthesia was obtained with 1% lidocaine. Nephrostogram, 10 cc Cystografin demonstrates satisfactory position of the existing nephrostomy tube Wire guided placed through the nephrostomy tube down the ureter, nephrostomy tube removed and a new 10 [place] 25 cm nephrostomy tube placed in proper position Fluoroscopic guidance Repeat nephrostogram demonstrated satisfactory position of the nephrostomy drainage tube. Impression: Successful nephrostomy tube exchange, new nephrostomy tube placed in proper position under fluoroscopic guidance Fluoroscopy 3.3 minutes radiation dose 78.99 mGy 2 spot fluoroscopic abdomen films
[2025-05-01 07:36] LABS: Basophils # (Auto) 0.0 Thou/mm3 (0.0-0.2); Basophils % (Auto) 0 % (0-2.5); Eosinophils # (Auto) 0.0 Thou/mm3 (0.0-0.5); Eosinophils % (Auto) 0 % (0-10); Hematocrit 26.2 % (36.0-46.0); Immature Granulocytes Auto 0.12 Thou/mm3 (0.00-0.00); Lymphocytes # (Auto) 0.7 Thou/mm3 (1.0-4.8); Lymphocytes % (Auto) 4 % (10-50); Mean Corpuscular HGB Conc 32.4 g/dl (31.0-37.0); Mean Corpuscular Hemoglobin 27.7 pg (25.0-35.0); Mean Corpuscular Volume 85 fL (80-100); Monocytes # (Auto) 0.6 Thou/mm3 (0.0-0.8); Monocytes % (Auto) 3 % (0-12); Neutrophils # (Auto) 16.0 Thou/mm3 (1.8-7.7); Neutrophils % (Auto) 92 % (37-80); Nucleated Red Blood Cell # 0.00 Thou/mm3 (0.00-0.00); Nucleated Red Blood Cell % 0 /100 WBC (0); Platelet Count 456 Thou/mm3 (140-440); RDW Standard Deviation 44.4 fL (36.4-46.3); Red Blood Count 3.07 Miln/mm3 (4.00-5.20); White Blood Count 17.4 Thou/mm3 (3.6-11.0)
[2025-05-01 07:50] LABS: Hemoglobin 8.5 g/dL (12.0-16.0)
[2025-05-01 07:57] LABS: Alanine Aminotransferase < 7 U/L (10-49); Albumin, Serum 3.4 gm/dL (3.5-5.0); Albumin/Globulin Ratio 1.2 (1.2-2.2); Alkaline Phosphatase 96 U/L (46-116); Anion Gap 10 (7-16); Aspartate Amino Transferase 11 U/L (0-34); BUN/Creatinine Ratio 14 Ratio (12-20); Bilirubin,Total 0.3 mg/dL (0.3-1.2); Blood Urea Nitrogen 23 mg/dL (9-23); Calcium 8.3 mg/dL (8.3-10.6); Calcium (Corrected) 8.8 mg/dL (8.5-10.1); Carbon Dioxide 24.2 mMol/L (20.0-31.0); Chloride 100 mMol/L (98-107); Creatinine (Component) 1.6 mg/dL (0.6-1.3); Estimated Creatinine Clearance 42.2 mL/min (>60); Globulin 2.8 gm/dL (2.3-3.5); Glucose 153 mg/dL (74-106); Glucose Estimated Average 186 mg/dL (80-131); Hemoglobin A1C 8.1 % Hgb (4.8-6.0); Magnesium 2.2 mg/dL (1.6-2.6); Osmolality,Calculated 274 (275-295); Potassium 4.8 mMol/L (3.4-5.1); Sodium 134 mMol/L (136-145); Total Protein 6.2 gm/dL (5.7-8.2); eGFR 41 See Note
--- NOTE | 2025-05-01 08:38 | PC.SS ---
Follow up note: Nephrostomy tube change today.
[2025-05-01] MEDS: FLUCONAZOLE 100 MG TABLET 400 MG PO (08:47)
[2025-05-01] MEDS: HEPARIN SOD LOCK SYR 100 UNIT/ML 500 UNIT STFIELD (10:15)
[2025-05-01] MEDS: fentaNYL CIT INJ 50 mCg/ML AMP 2ML 150 MCG IVP (10:38)
[2025-05-01] MEDS: LIDOCAINE INJ PF 1% 5 ML VIAL 29 ML INFL (10:39)
--- NOTE | 2025-05-01 14:37 | ESPR_ITS ---
<Statement entered by Maurice Lima MD - 05/01/25 22:49> I saw and examined patient personally and supervised PGY 1 resident, Dr. Orosco with formulating a management plan. I agree with the documentation with the exceptions as listed below. 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 ED on 04/30 for worsening headache. Patient was admitted for management of pyelonephritis and nephrostomy tube exchange. Problem list: 1. Pyelonephritis secondary to bilateral nephrostomy tubes 2. Leukocytosis 3. Cervical cancer currently on chemoradiation 4. History of MDR UTIs 5. 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 Patient did not have her nephrostomy tubes exchanged since December and did not follow-up with outpatient urology due to being treated for her cervical cancer. Currently on cefepime and Bactrim for UTI, pending blood and urine cultures. Patient underwent successful left nephrostomy tube exchange, right was unable to be performed due to patient being on excruciating pain. Urology, Dr. Friedman was consulted with regards to her right nephrostomy tube, he will see the patient on Sunday. Patient chronically on fluconazole 400 mg p.o. daily for pulmonary coccidiomycosis first diagnosed in 2022. She also does have pulmonary cavitary lesions secondary to coccidiomycosis. Repeat cocci IgM with IgG reflex and titers ordered to monitor response to treatment. Plan of care discussed with Attending Dr. Angeles Lima MD PGY 2 Disclaimer: This note was dictated by speech recognition. Minor errors in tennis ball coverer hand may be present due to voice recognition software. Documentation for date of: 05/01/25 Subjective Subjective Interval history: Patient admitted overnight. Patient seen examined at bedside with partner in room. Patient reports having headache relieved by oral morphine however patient continues to have significant suprapubic and flank pain prompting her ED visit. Patient denies hematuria or decreased urine output from nephrostomy tubes. VSS. Continue cefepime and high-dose Bactrim for now, will reconcile home antibiotics patient has received during previous hospital stays. Blood culture preliminary GNR. IR replaced left nephrostomy tube however patient endorsed significant pain and IR recommends urology or surgical management of right nephrostomy tube replacement with anesthesia. Urology consulted. Home morphine and [place] discontinued on Dilaudid 0.5 mg every 4 hours as needed. Started home degludec 30 units with SST step 1. Continue fluconazole 40 mg daily and follow- up cocci titers. Exam Vital Signs Temp Pulse Resp BP Pulse Ox O2 Del Method O2 Flow Rate 97.7 F 82 15 130/70 94 L Room Air 3 05/01/25 11:56 05/01/25 11:56 05/01/25 11:56 05/01/25 11:56 05/01/25 11:56 05/01/25 11:56 05/01/25 10:50 Narrative Exam GENERAL: AOx3, no acute distress HEENT: mucous membranes moist, bilateral sclera anicteric CARDIOVASCULAR: regular rate and rhythm, S1/S2 present, no murmurs appreciated PULMONARY: clear to auscultation bilaterally, no rales/rhonchi/wheezes ABDOMINAL: soft, non-distended, no rebound/guarding, bowel sounds present, m oderate suprapubic TTP, mild b/l flank pain : nephrostomy tubes in place draining clear urine EXTREMITIES: no peripheral edema SKIN: warm and dry, intact, no rashes NEURO: CN II-XII grossly intact, no focal deficits, alert, following commands Objective Labs 05/01/25 06:55 05/01/25 06:55 Labs: Laboratory Results - last 24 hr 04/30/25 04/30/25 04/30/25 20:46 20:49 22:57 WBC 16.8 H RBC 3.48 L Hgb 9.7 L Hct 29.3 L MCV 84 MCH 27.9 MCHC 33.1 RDW Std Deviation 43.4 Plt Count 551 H D Neut % (Auto) 94 H Lymph % (Auto) 4 L [place] % (Auto) 2 Eos % (Auto) 0 Baso % (Auto) 0 Neut # (Auto) 15.7 H Lymph # (Auto) 0.6 L [place] # (Auto) 0.3 Eos # (Auto) 0.0 Baso # (Auto) 0.0 Immature Gran # (Auto) 0.09 H Absolute Nucleated RBC 0.00 Immature Gran % 1 H Nucleated RBC % 0 PT 10.8 INR 1.0 APTT 26.7 Sodium 133 L 133 L Potassium 4.3 4.2 Chloride 97 L 98 Carbon Dioxide 24.0 24.9 Anion Gap 12 10 BUN 23 25 H Creatinine 1.4 H 1.4 H Estim Creat Clear Calc 47.6 L 47.6 L eGFR 48 L 48 L BUN/Creatinine Ratio 16 18 Glucose [address] Glu mg/dL Hemoglobin A1c Calculated Osmolality 275 273 L Lactic Acid 2.6 H 2.2 H Calcium 8.9 8.3 Corrected Calcium 8.9 8.9 Phosphorus 3.0 3.5 Magnesium 1.3 L Total Bilirubin 0.2 L AST 11 ALT < 7 L Alkaline Phosphatase 109 Lactate Dehydrogenase 149 Troponin I < 0.020 B-Natriuretic Peptide 172 H Total Protein 7.3 Albumin 4.1 3.3 L D Globulin 3.2 Albumin/Globulin Ratio 1.3 Lipase 36 Procalcitonin 0.16 Beta HCG, Quant < 1 Ur Collection Type Clean Catch Urine Color Yellow Urine Clarity Turbid A Urine pH 6.5 Ur Specific [place] 1.011 Urine Protein 3+ A Urine Glucose (UA) Negative Urine Ketones Negative Urine Blood 1+ A Urine Nitrite Negative Urine Bilirubin Negative Urine Urobilinogen (Auto) Negative Ur Leukocyte Esterase Positive Urine RBC 27 H Urine WBC 1186 H Ur Squamous Epith Cells 0 Urine Bacteria 4+ A Ur Culture Indicated? Yes 05/01/25 05/01/25 05/01/25 01:53 02:15 04:35 WBC RBC Hgb Hct MCV MCH MCHC RDW Std Deviation Plt Count Neut % (Auto) Lymph % (Auto) [place] % (Auto) Eos % (Auto) Baso % (Auto) Neut # (Auto) Lymph # (Auto) [place] # (Auto) Eos # (Auto) Baso # (Auto) Immature Gran # (Auto) Absolute Nucleated RBC Immature Gran % Nucleated RBC % PT INR APTT Sodium Potassium Chloride Carbon Dioxide Anion Gap BUN Creatinine Estim Creat Clear Calc eGFR BUN/Creatinine Ratio Glucose Estimated Ave Glu mg/dL Hemoglobin A1c Calculated Osmolality Lactic Acid 1.4 Calcium Corrected Calcium Phosphorus Magnesium Total Bilirubin AST ALT Alkaline Phosphatase Lactate Dehydrogenase Troponin I B-Natriuretic Peptide Total Protein Albumin Globulin Albumin/Globulin Ratio Lipase Procalcitonin Beta HCG, Quant Ur Collection Type Clean Catch Clean Catch Urine Color Yellow Lt-Yellow Urine Clarity Turbid A Turbid A Urine pH 6.0 6.5 Ur Specific [place] 1.009 1.009 Urine Protein 2+ A 2+ A Urine Glucose (UA) Negative Negative Urine Ketones Negative Negative Urine Blood 1+ A Trace Urine Nitrite Negative Positive Urine Bilirubin Negative Negative Urine Urobilinogen (Auto) Negative Negative Ur Leukocyte Esterase Positive Positive Urine RBC 28 H 20 H Urine WBC 800 H 431 H Ur Squamous Epith Cells 0 0 Urine Bacteria 3+ A 4+ A Ur Culture Indicated? Yes Yes 05/01/25 06:55 WBC 17.4 H RBC 3.07 L Hgb 8.5 L Hct 26.2 L MCV 85 MCH 27.7 MCHC 32.4 RDW Std Deviation 44.4 Plt Count 456 H D Neut % (Auto) 92 H Lymph % (Auto) 4 L [place] % (Auto) 3 Eos % (Auto) 0 Baso % (Auto) 0 Neut # (Auto) 16.0 H Lymph # (Auto) 0.7 L [place] # (Auto) 0.6 Eos # (Auto) 0.0 Baso # (Auto) 0.0 Immature Gran # (Auto) 0.12 H Absolute Nucleated RBC 0.00 Immature Gran % 1 H Nucleated RBC % 0 PT INR APTT Sodium 134 L Potassium 4.8 D Chloride 100 Carbon Dioxide 24.2 Anion Gap 10 BUN 23 Creatinine 1.6 H Estim Creat Clear Calc 42.2 L eGFR 41 L BUN/Creatinine Ratio [address] Glu mg/dL 186 H Hemoglobin A1c 8.1 H Calculated Osmolality 274 L Lactic Acid Calcium 8.3 Corrected Calcium 8.8 Phosphorus Magnesium 2.2 Total Bilirubin 0.3 AST 11 ALT < 7 L Alkaline Phosphatase 96 Lactate Dehydrogenase Troponin I B-Natriuretic Peptide Total Protein 6.2 Albumin 3.4 L Globulin 2.8 Albumin/Globulin Ratio 1.2 Lipase Procalcitonin Beta HCG, Quant Ur Collection Type Urine Color Urine Clarity Urine pH Ur Specific [place] Urine Protein Urine Glucose (UA) Urine Ketones Urine Blood Urine Nitrite Urine Bilirubin Urine Urobilinogen (Auto) Ur Leukocyte Esterase Urine RBC Urine WBC Ur Squamous Epith Cells Urine Bacteria Ur Culture Indicated? Quality Measures Quality Measures VTE prophylaxis Assessment & Plan Assessment Current Active Medications: Generic Name Dose Route Start Last Admin Trade Name Freq PRN Reason Stop Dose Admin Acetaminophen 650 mg 05/01/25 01:45 Acetaminophen 325 Mg Tablet PO 05/31/25 01:44 Q6H PRN Fever >101.5 or pain 1-3 Dextrose 25 ml 05/01/25 03:13 Dextrose 50%-Water Inj 50 Ml Syringe IV 05/31/25 03:12 Q15MIN PRN BG 50-70 responsive npo pt Dextrose 50 ml 05/01/25 03:13 Dextrose 50%-Water Inj 50 Ml Syringe IV 05/31/25 03:12 Q15MIN PRN BG <50 OR BG <70 & pt unresponsive Docusate Sodium 100 mg 05/01/25 01:50 Docusate Sod 100 Mg Capsule PO 05/31/25 01:49 QDAY PRN CONSTIPATION Protocol Fluconazole 400 mg 05/01/25 09:00 05/01/25 08:47 Fluconazole 100 Mg Tablet PO 05/08/25 08:59 400 mg QDAY CLEMENTINE Administration Glucagon 1 mg 05/01/25 03:13 Glucagon Inj 1 Mg Vial IM Q15MIN PRN BG <70, and no IV access Hydromorphone HCl 0.5 mg 05/01/25 12:03 Hydromorphone Inj 2 Mg/Ml Vial IVP 05/06/25 12:02 Q4HR PRN Breakthrough Pain Lactated Ringer's 1,000 mls @ 100 mls/hr 05/01/25 01:42 05/01/25 02:07 Lactated Ringers IV 05/31/25 01:41 100 mls/hr On Hold: 05/01/25 09:20 .Q10H CLEMENTINE Administration Cefepime HCl 2 gm/ Sodium 50 mls @ 100 mls/hr 05/01/25 09:00 05/01/25 08:48 Chloride IV 05/08/25 08:59 100 mls/hr Q12HR CLEMENTINE Administration Insulin Human Lispro 0 unit 05/01/25 06:00 05/01/25 11:36 Insulin Lispro (Admelog) 1 Unit/0.01 Ml Unit SC 05/31/25 03:14 Not Given Q6HR CLEMENTINE Protocol Olanzapine 2.5 mg 05/01/25 01:50 Olanzapine 2.5 Mg Tablet PO 05/31/25 01:49 QPM PRN Breakthrough nausea Ondansetron HCl 4 mg 05/01/25 01:45 Ondansetron Inj 2 Mg/Ml Inj 2 Ml IVP 05/31/25 01:44 Q6H PRN NAUSEA OR VOMITING Protocol Pharmacy Consult 1 each 05/01/25 12:12 Pharmacy Renal Dose Adjustment 1 Ea XX 05/31/25 12:11 PRN PRN CONSULT Polyethylene Glycol 17 gm 05/01/25 09:00 05/01/25 08:58 Polyethylene Glycol 17 Gm Packet PO 05/31/25 08:59 Not Given QDAY CLEMENTINE Trimethoprim/Sulfamethoxazole 1 tab 05/01/25 02:15 05/01/25 08:47 Trimethoprim/Sulfa 160/800 Ds Tablet PO 05/08/25 02:14 1 tab BID CLEMENTINE Administration Plan Woodruff Mamadou 44F pmhx significant for cervical cancer s/p laser therapy 2018 with recurrence and now on radiation daily and chemo weekly, non-malignant bladder mass (urothelial papilloma) s/p bilateral nephrostomy tube placement 11/2024, recurrent multidrug resistant UTIs, hypertension, 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 ED on 04/30 for worsening headache. Patient was admitted for management of pyelonephritis, GNR bacteremia and nephrostomy tube exchange. #Pyelonephritis likely 2/2 chronic nephrostomy tubes #GNR bacteremia #Non-malignant bladder mass (urothelial papilloma) causing #Bilateral hydronephrosis s/p bilateral nephrostomy tube placement (11/2024) #s/p L nephrostomy tube replacement 05/01/2025 #CKD IIIa #History of recurrent multidrug resistant UTIs Patient noted to have fever in the ED and was found to have fever 102, leukocytosis 16.8 with elevated lactic acid 2.2 -> 1.4 s/p 1.5L bolus in ED. Patient has a history of bilateral nephrostomy tubes for urothelial papilloma and recurrent multidrug-resistant UTIs. Additionally, UA was highly suggestive of an infection, and in conjunction with the patient's right flank pain, this is a complicated UTI suggestive of pyelonephritis. Per patient, she has not had nephrostomy tube replacement since they replaced back in December. GNR bacteremia likely 2/2 UTI vs chronic nephrostomy tube Preliminary BCx growing GNR SOFA-2 score 1 Plan: - Cefepime 2 g q12 (05/01?) and Bactrim double strength BID (05/01?) - IR unable to replace left nephrostomy however due to significant pain will defer right nephrostomy tube replacement to urology or surgery under anesthesia - Urology consulted, recs appreciated - Dilaudid 0.5 mg q4h prn for pain - F/u UCx and BCxs #Cervical cancer on radiation daily and chemo weekly #History of cervical mass (previously 19 x 15 x 24 mm) #History of cervical cancer s/p laser therapy (2019) Patient noted to have a cervical mass, previously identified as 19 x 15 x 24 mm on transvaginal ultrasound. Patient obtained biopsy in outside facility, and has been referred to Dr. Mckeon in [place] for management with chemotherapy (only 1 dose has been given so far) and daily radiation therapy (started on 04/27). Transvaginal ultrasound 03/13/2025 shows calcified cervical mass measuring 19 x [address] abdomen/pelvis on 04/01/2025 shows subcentimeter abdominal and pelvic lymph nodes Plan: - Patient to follow-up outpatient - If patient's hospital course if prolonged, will consider consulting radiation oncology - Zofran as needed for nausea/vomiting - Resumed patient's home olanzapine 2.5 mg nightly as needed for nausea/vomiting - Dilaudid 0.5 mg q4h prn for pain #Insulin dependent type 2 diabetes Patient noted to have a history of insulin-dependent diabetes mellitus and uses 30 units of insulin glargine daily and 5 units of insulin lispro with meals. Current a1c 8.1, previous 6.0 on 01/2025. Plan: - Insulin degludaec 30u QD - Sliding scale insulin step 1 #Anemia, normocytic Patient noted to have hemoglobin of 9.7 on initial labs. Since this is normocytic, likely secondary to anemia of chronic disease, especially given the patient's recurrent UTIs. Plan: - Manage underlying infection - Patient to follow-up outpatient - F/u iron panel, ferritin and peripheral smear #History of Valley Fever Patient noted to have a history of Coccidioides. Patient states previously treated by recurred. Plan: - Fluconazole 400 mg daily - F/u cocci titers #Pulmonary masses, right upper lobe and right lower lobe Patient noted to have a history of pulmonary masses suspicious for nodular pulmonary metastatic disease. CT chest/abdomen/pelvis on 03/14/2025 shows a 23 mm mass in the right upper lobe and a 23 mm mass in the right lower lobe CT abdomen/pelvis on 04/01 visualized mass in right lower lobe Plan: - Patient to follow-up outpatient #History of hypertension Patient has a history of hypertension to which she takes losartan 100 mg at home. Plan: - BP labile due to pain and bacteremia, hold losartan #History of constipation Patient does have a history of constipation likely secondary to her opiate use. Plan: - Resumed patient's home docusate 100 mg daily as needed for constipation Hospital management: Lines: PIV, b/l nephrostomy tubes Diet: carb consistent low, renal Bowel: docusate prn GI prophylaxis: not indicated DVT prophylaxis: SCDs Disposition: med tele, IV abx, GNR bacteremia, urology consult CODE STATUS: FULL CODE Plan of care discussed with attending Dr. Reynoso, and PGY-2 Dr. Lima. Francesca Orosco DO PGY-1 Internal Medicine Attending Provider Attestation/Addendum I have discussed and was present for the essential components of the history, physical examination, diagnosis, and treatment plan with the resident. I agree with the patient's care as documented by the resident and amended herein by me. Rafiq Reynoso DO. Although this document has been carefully reviewed, there may still be some phonetic and other typographical errors. These errors are purely grammatical due to imperfections in the software program and should not be construed in any way to compromise the substance of the patient's medical care during this visit.
--- NOTE | 2025-05-01 15:24 | PC.SS ---
SS met with patient regarding her d/c plan. Pt is alert/oriented. Pt was admitted for Nephrostomy Tube Infection. Pt confirmed demographic and contact information is correct on facesheet. Pt resides with kids. Pt ambulates independently without assistance or DME. Pt is ok with all ADLs. Patient?s pharmacy of choice is [facility]. Pt named her sister in law, Renay Dowd medical decision maker if she is unable. Patient?s choice is to return home upon d/c. Pt states she is diabetic but does not have gluocometer. Sister in law will provide transportation home. Pt followed up with PCP in March. D/C plan: Return home Next of Kin: Renay Dowd, sister in law, phone# [phone] PCP: Dr. Stan Cedillo from [facility] Address: Correct on facesheet
[2025-05-01] MEDS: HYDROmorphone INJ 2 MG/ML VIAL 0.5 MG IVP ×2 (17:20→23:42)
[2025-05-02] VITALS (7 sets, daily range): BP systolic 123–160; BP diastolic 66–81; PULSE 75–87; RESP 16–21; TEMP 36.1–37.7; O2SAT 95–97
[2025-05-02] MEDS: HYDROmorphone INJ 2 MG/ML VIAL 0.5 MG IVP ×2 (05:48→09:31)
[2025-05-02] MEDS: ONDANSETRON INJ 2 MG/ML INJ 2 ML 4 MG IVP (05:48)
[2025-05-02 05:57] LABS: Basophils # (Auto) 0.0 Thou/mm3 (0.0-0.2); Basophils % (Auto) 0 % (0-2.5); Eosinophils # (Auto) 0.0 Thou/mm3 (0.0-0.5); Eosinophils % (Auto) 0 % (0-10); Hematocrit 26.3 % (36.0-46.0); Immature Granulocytes Auto 0.09 Thou/mm3 (0.00-0.00); Lymphocytes # (Auto) 0.8 Thou/mm3 (1.0-4.8); Lymphocytes % (Auto) 7 % (10-50); Mean Corpuscular HGB Conc 31.6 g/dl (31.0-37.0); Mean Corpuscular Hemoglobin 27.3 pg (25.0-35.0); Mean Corpuscular Volume 87 fL (80-100); Monocytes # (Auto) 0.4 Thou/mm3 (0.0-0.8); Monocytes % (Auto) 4 % (0-12); Neutrophils # (Auto) 9.8 Thou/mm3 (1.8-7.7); Neutrophils % (Auto) 88 % (37-80); Nucleated Red Blood Cell # 0.00 Thou/mm3 (0.00-0.00); Nucleated Red Blood Cell % 0 /100 WBC (0); Platelet Count 418 Thou/mm3 (140-440); RDW Standard Deviation 46.4 fL (36.4-46.3); Red Blood Count 3.04 Miln/mm3 (4.00-5.20); White Blood Count 11.2 Thou/mm3 (3.6-11.0)
[2025-05-02 06:00] LABS: Hemoglobin 8.3 g/dL (12.0-16.0)
[2025-05-02 06:14] LABS: Path Review Blood Smear Sent to Pathologist
[2025-05-02 06:16] LABS: Ferritin 556 ng/mL (7.3-270.7); Iron 8 mcg/dL (50-170); Percent Iron Saturation 4 % (20-55); Total Iron Binding Capacity 185 mcg/dL (250-425); Unsaturated Iron Binding 177 (225-295)
[2025-05-02 06:31] LABS: Albumin, Serum 3.6 gm/dL (3.5-5.0); Albumin/Globulin Ratio 1.2 (1.2-2.2); Alkaline Phosphatase 105 U/L (46-116); Anion Gap 12 (7-16); Aspartate Amino Transferase 11 U/L (0-34); BUN/Creatinine Ratio 12 Ratio (12-20); Bilirubin,Total 0.2 mg/dL (0.3-1.2); Blood Urea Nitrogen 23 mg/dL (9-23); Calcium 8.6 mg/dL (8.3-10.6); Calcium (Corrected) 8.9 mg/dL (8.5-10.1); Carbon Dioxide 23.4 mMol/L (20.0-31.0); Chloride 101 mMol/L (98-107); Creatinine (Component) 2.0 mg/dL (0.6-1.3); Estimated Creatinine Clearance 33.8 mL/min (>60); Globulin 3.0 gm/dL (2.3-3.5); Glucose 119 mg/dL (74-106); Magnesium 2.2 mg/dL (1.6-2.6); Osmolality,Calculated 276 (275-295); Phosphorous 5.5 mg/dL (2.4-5.1); Potassium 4.4 mMol/L (3.4-5.1); Sodium 136 mMol/L (136-145); Total Protein 6.6 gm/dL (5.7-8.2); eGFR 31 See Note
[2025-05-02 06:32] LABS: Alanine Aminotransferase < 7 U/L (10-49)
[2025-05-02] MEDS: FLUCONAZOLE 100 MG TABLET 400 MG PO (08:23)
[2025-05-02] MEDS: TRIMETHOPRIM/SULFA 160/800 DS TABLET 1 TAB PO (08:23)
[2025-05-02] MEDS: CEFEPIME INJ 2 GM in SODIUM CHLORIDE 0.9% (Popper) 50 ML IV ×2 (08:23→20:23)
[2025-05-02] MEDS: SODIUM CHLORIDE 0.9% 1000 ML 1,000 ML 999 ML IV (08:25)
[2025-05-02] MEDS: POLYETHYLENE GLYCOL 17 GM PACKET PO (08:36)
[2025-05-02] MEDS: SODIUM CHLORIDE 0.9% 1000 ML 1,000 ML 250 ML IV (11:30)
[2025-05-02] MEDS: DOXYCYCLINE 100 MG TABLET PO ×2 (11:30→20:25)
--- NOTE | 2025-05-02 14:00 | ESPR_ITS ---
Documentation for date of: 05/02/25 Subjective Subjective Interval history: No acute overnight events. Patient is examined at bedside. Patient tearful and groaning due to significant suprapubic pain. Gave Dilaudid 0.5 mg x 1. Increased as needed Dilaudid to 1 mg every 4 hours as needed. VSS. WBC downtrending, hemoglobin stable, creatinine 2.0 from 1.6. Iron panel: Iron 8 TIBC 195 iron saturation 4, ferritin 556. Pending peripheral smear. Preliminary blood culture growing 2 GNR and GPC and preliminary urine culture GNR and GPC. Discontinue Bactrim due to increasing creatinine and started doxycycline 100 mg twice daily. Continue IV cefepime. Pending urology consultation on Sunday. Exam Vital Signs Temp Pulse Resp BP Pulse Ox O2 Del Method O2 Flow Rate 97.0 F 75 18 151/81 H 97 Room Air 3 05/02/25 12:00 05/02/25 12:00 05/02/25 12:00 05/02/25 12:00 05/02/25 12:00 05/02/25 12:00 05/01/25 10:50 Narrative Exam GENERAL: AOx3, tearful and groaning due to significant pain HEENT: mucous membranes moist, bilateral sclera anicteric CARDIOVASCULAR: regular rate and rhythm, S1/S2 present, no murmurs appreciated PULMONARY: clear to auscultation bilaterally, no rales/rhonchi/wheezes ABDOMINAL: soft, non-distended, no rebound/guarding, bowel sounds present, m oderate suprapubic TTP, mild b/l flank pain : nephrostomy tubes in place draining clear urine EXTREMITIES: no peripheral edema SKIN: warm and dry, intact, no rashes NEURO: CN II-XII grossly intact, no focal deficits, alert, following commands Objective Labs 05/02/25 05:26 05/02/25 05:26 Labs: Laboratory Results - last 24 hr 05/02/25 05:26 WBC 11.2 H D RBC 3.04 L Hgb 8.3 L Hct 26.3 L MCV 87 MCH 27.3 MCHC 31.6 RDW Std Deviation 46.4 H Plt Count 418 D Neut % (Auto) 88 H Lymph % (Auto) 7 L [place] % (Auto) 4 Eos % (Auto) 0 Baso % (Auto) 0 Neut # (Auto) 9.8 H Lymph # (Auto) 0.8 L [place] # (Auto) 0.4 Eos # (Auto) 0.0 Baso # (Auto) 0.0 Immature Gran # (Auto) 0.09 H Absolute Nucleated RBC 0.00 Immature Gran % 1 H Nucleated RBC % 0 Smear Path Review Sent to Pathologist Sodium 136 Potassium 4.4 Chloride 101 Carbon Dioxide 23.4 Anion Gap 12 BUN 23 Creatinine 2.0 H Estim Creat Clear Calc 33.8 L eGFR 31 L BUN/Creatinine Ratio 12 Glucose 119 H Calculated Osmolality 276 Calcium 8.6 Corrected Calcium 8.9 Phosphorus 5.5 H Magnesium 2.2 Iron 8 L TIBC 185 L Iron Saturation 4 L Unsat Iron Binding 177 L Ferritin 556 H Total Bilirubin 0.2 L AST 11 ALT < 7 L Alkaline Phosphatase 105 Total Protein 6.6 Albumin 3.6 Globulin 3.0 Albumin/Globulin Ratio 1.2 Quality Measures Quality Measures VTE prophylaxis Assessment & Plan Assessment Current Active Medications: Generic Name Dose Route Start Last Admin Trade Name Freq PRN Reason Stop Dose Admin Acetaminophen 650 mg 05/01/25 01:45 Acetaminophen 325 Mg Tablet PO 05/31/25 01:44 Q6H PRN Fever >101.5 or pain 1-3 Dextrose 25 ml 05/01/25 03:13 Dextrose 50%-Water Inj 50 Ml Syringe IV 05/31/25 03:12 Q15MIN PRN BG 50-70 responsive npo pt Dextrose 50 ml 05/01/25 03:13 Dextrose 50%-Water Inj 50 Ml Syringe IV 05/31/25 03:12 Q15MIN PRN BG <50 OR BG <70 & pt unresponsive Docusate Sodium 100 mg 05/01/25 01:50 Docusate Sod 100 Mg Capsule PO 05/31/25 01:49 QDAY PRN CONSTIPATION Protocol Doxycycline Hyclate 100 mg 05/02/25 11:30 05/02/25 11:30 Doxycycline 100 Mg Tablet PO 05/09/25 11:29 100 mg BID CLEMENTINE Administration Fluconazole 400 mg 05/01/25 09:00 05/02/25 08:23 Fluconazole 100 Mg Tablet PO 05/08/25 08:59 400 mg QDAY CLEMENTINE Administration Glucagon 1 mg 05/01/25 03:13 Glucagon Inj 1 Mg Vial IM Q15MIN PRN BG <70, and no IV access Hydromorphone HCl 1 mg 05/02/25 09:21 Hydromorphone Inj 2 Mg/Ml Vial IVP 05/06/25 12:02 Q4HR PRN Breakthrough Pain Cefepime HCl 2 gm/ Sodium 50 mls @ 100 mls/hr 05/01/25 09:00 05/02/25 08:23 Chloride IV 05/08/25 08:59 100 mls/hr Q12HR CLEMENTINE Administration Sodium Chloride 1,000 mls @ 250 mls/hr 05/02/25 10:35 05/02/25 11:30 Ns IV 05/02/25 14:34 250 mls/hr .Q4H ONE Administration Insulin Degludec 30 unit 05/02/25 09:00 05/02/25 08:23 Insulin Degludec 5 Unit/0.05 Ml (Per 5 Units) SC 06/01/25 08:59 Not Given QDAY CLEMENTINE Insulin Human Lispro 0 unit 05/01/25 17:00 05/02/25 11:31 Insulin Lispro (Admelog) 1 Unit/0.01 Ml Unit SC 05/31/25 16:59 Not Given ACHS [facility] Protocol Olanzapine 2.5 mg 05/01/25 01:50 Olanzapine 2.5 Mg Tablet PO 05/31/25 01:49 QPM PRN Breakthrough nausea Ondansetron HCl 4 mg 05/01/25 01:45 05/02/25 05:48 Ondansetron Inj 2 Mg/Ml Inj 2 Ml IVP 05/31/25 01:44 4 mg Q6H PRN Administration NAUSEA OR VOMITING Protocol Pharmacy Consult 1 each 05/01/25 12:12 Pharmacy Renal Dose Adjustment 1 Ea XX 05/31/25 12:11 PRN PRN CONSULT Polyethylene Glycol 17 gm 05/01/25 09:00 05/02/25 08:36 Polyethylene Glycol 17 Gm Packet PO 05/31/25 08:59 17 gm QDAY CLEMENTINE Administration Trimethoprim/Sulfamethoxazole 1 tab 05/01/25 02:15 05/02/25 08:23 Trimethoprim/Sulfa 160/800 Ds Tablet PO 05/08/25 02:14 1 tab On Hold: 05/02/25 11:16 BID CLEMENTINE Administration Plan Woodrufframin Cedillo 44F pmhx significant for cervical cancer s/p laser therapy 2019 with recurrence and now on radiation daily and chemo weekly, 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 Patient was admitted for management of pyelonephritis, GNR and GPC bacteremia and nephrostomy tube exchange. #Pyelonephritis likely 2/2 chronic nephrostomy tubes #GNR and GPC bacteremia #Complicated UTI, GNR and GPC #Non-malignant bladder mass (urothelial papilloma) causing #Bilateral hydronephrosis s/p bilateral nephrostomy tube placement (11/2024) #s/p L nephrostomy tube replacement 05/01/2025 #History of recurrent multidrug resistant UTIs Patient noted to have fever in the ED and was found to have fever 102, leukocytosis 16.8 with elevated lactic acid 2.2 -> 1.4 s/p 1.5L bolus in ED. Patient has a history of bilateral nephrostomy tubes for urothelial papilloma and recurrent multidrug-resistant UTIs. Additionally, UA was highly suggestive of an infection, and in conjunction with the patient's right flank pain, this is a complicated UTI suggestive of pyelonephritis. Per patient, she has not had nephrostomy tube replacement since they replaced back in December. GNR bacteremia likely 2/2 UTI vs chronic nephrostomy tube Preliminary BCx growing GNR x2 and GPC. Preliminary UCx GNR and GPC. SOFA-2 score 1. Zosyn x1 in ED. Bactrim double strength (05/01-05/02) Plan: - Cefepime 2 g q12 (05/01?) and doxycycline 100 mg BID (05/02- - IR unable to replace left nephrostomy however due to significant pain will defer right nephrostomy tube replacement to urology or surgery under anesthesia - Urology consulted, recs appreciated - Dilaudid 1 mg q4h prn for pain #SAPPHIRE on CKD IIIa Cr on 05/02 2.0 with baseline 1.2-1.4. Likely prerenal due to decreased PO intake 2/2 significant pain. Plan: - Pain management - Encourage oral hydration, will consider IVF if Cr persistently elevated - CTM Cr #Suprapubic pain 2/2 #Cervical cancer on radiation daily and chemo weekly #History of cervical mass (previously 19 x 15 x 24 mm) #History of cervical cancer s/p laser therapy (2019) Patient noted to have a cervical mass, previously identified as 19 x 15 x 24 mm on transvaginal ultrasound. Patient obtained biopsy in outside facility, and has been referred to Dr. Mckeon in [place] for management with chemotherapy (only 1 dose has been given so far) and daily radiation therapy (started on 04/27). Transvaginal ultrasound 03/13/2025 shows calcified cervical mass measuring 19 x [address] abdomen/pelvis on 04/01/2025 shows subcentimeter abdominal and pelvic lymph nodes Plan: - Patient to follow-up outpatient - If patient's hospital course if prolonged, will consider consulting radiation oncology - Zofran as needed for nausea/vomiting - Resumed patient's home olanzapine 2.5 mg nightly as needed for nausea/vomiting - Dilaudid 1 mg q4h prn for pain #Insulin dependent type 2 diabetes Patient noted to have a history of insulin-dependent diabetes mellitus and uses 30 units of insulin glargine daily and 5 units of insulin lispro with meals. Current a1c 8.1, previous 6.0 on 01/2025. Plan: - Insulin degludaec 30u QD, on hold due to poor PO intake - Sliding scale insulin step 1 #Normocytic anemia #EMILY #Anemia of chronic disease Patient noted to have hemoglobin of 9.7 on initial labs. Since this is normocytic, likely secondary to anemia of chronic disease, especially given the patient's recurrent UTIs. Iron 8, TIBC 185, iron sat 4, ferritin 556. 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 Patient states previously treated but recurred. Plan: - Fluconazole 400 mg daily - F/u cocci IgM #Pulmonary masses, right upper lobe and right lower lobe Patient noted to have a history of pulmonary masses suspicious for nodular pulmonary metastatic disease. CT chest/abdomen/pelvis on 03/14/2025 shows a 23 mm mass in the right upper lobe and a 23 mm mass in the right lower lobe CT abdomen/pelvis on 04/01 visualized mass in right lower lobe Plan: - Patient to follow-up outpatient #History of hypertension Patient has a history of hypertension to which she takes losartan 100 mg at home. Plan: - BP labile due to pain and bacteremia, hold losartan #History of constipation Patient does have a history of constipation likely secondary to her opiate use. Plan: - Resumed patient's home docusate 100 mg daily as needed for constipation Hospital management: Lines: PIV, b/l nephrostomy tubes Diet: carb consistent low, renal Bowel: docusate prn GI prophylaxis: not indicated DVT prophylaxis: SCDs Disposition: med tele, IV abx, GNR and GPC bacteremia, urology consult CODE STATUS: FULL CODE Plan of care discussed with attending Dr. Reynoso, and PGY-3 Dr. Wills. Francesca Orosco DO PGY-1 Internal Medicine Senior Resident Attestation: The patient reported having severe lower back pain, and was given Dilaudid milligram IV x 1, and increased the dose of as needed Dilaudid for pain. His creatinine mildly increased to 2.0 from 1.6, iron saturation 4 with ferritin 556, preliminary blood culture growing 2 GNR and GPC in preliminary urine culture GNR and GPC. Bactrim was switched to doxycycline 100 mg twice daily and will continue on IV cefepime. Urologist Dr. Friedman to consult on this patient on Sunday, to change the nephrostomy tube. I discussed with and supervised the international trade analyst physician involved in the care of this patient. I personally saw and examined the patient and discussed the assessment and plan with the entire medicine team, including my attending. I agree with the assessment and plan as documented above. Rodrigo Wills MD PGY3 Internal Medicine Attending Provider Attestation/Addendum I have discussed and was present for the essential components of the history, physical examination, diagnosis, and treatment plan with the resident. I agree with the patient's care as documented by the resident and amended herein by me. Rafiq Reynoso DO. Although this document has been carefully reviewed, there may still be some phonetic and other typographical errors. These errors are purely grammatical due to imperfections in the software program and should not be construed in any way to compromise the substance of the patient's medical care during this visit. Patient seen and evaluated this AM. No acute events overnight, vital signs stable, patient afebrile, I/O9 100/3700 mL overnight. Significant labs include a WBC 11.2, hemoglobin stable at 8.3, BUN 23 and a slight uptick in creatinine to 2.0. The patient's urine cultures on 05/01 demonstrating 2 different gram- negative rods and a gram-positive cocci species with a CFU of greater than 100,000. Will continue cefepime for now and add doxycycline on board. Will renally dose all medications and avoid nephrotoxic medications Bactrim we will discontinue in setting of worsening renal function. Blood cultures on 04/30 demonstrating GNR's as well however all speciation is pending at this point. Will focus on pain control today, the patient's left nephrostomy tube was exchanged however the right tube will need to be changed by surgery, Dr. Friedman, urology has been consulted will see the patient on Sunday.
[2025-05-02 14:56] LABS: Cocci Serology, IgM Positive (Negative)
[2025-05-02 14:57] LABS: Cocid Sro, CF/ID (UCD) NO CHG* See Sep Rpt
[2025-05-02] MEDS: HYDROmorphone INJ 2 MG/ML VIAL 1 MG IVP (16:41)
[2025-05-02] MEDS: HYDROcodone/APAP 5/325 TABLET 1 TAB PO (19:44)
[2025-05-03] VITALS (14 sets, daily range): BP systolic 112–193; BP diastolic 65–100; PULSE 63–84; RESP 16–18; TEMP 36.3–36.7; O2SAT 96–98
[2025-05-03] MEDS: HYDROmorphone INJ 2 MG/ML VIAL 1 MG IVP ×4 (02:41→21:47)
[2025-05-03] MEDS: DOCUSATE SOD 100 MG CAPSULE PO (05:58)
[2025-05-03 06:04] LABS: Basophils # (Auto) 0.0 Thou/mm3 (0.0-0.2); Basophils % (Auto) 0 % (0-2.5); Eosinophils # (Auto) 0.1 Thou/mm3 (0.0-0.5); Eosinophils % (Auto) 2 % (0-10); Hematocrit 27.0 % (36.0-46.0); Immature Granulocytes Auto 0.05 Thou/mm3 (0.00-0.00); Lymphocytes # (Auto) 0.8 Thou/mm3 (1.0-4.8); Lymphocytes % (Auto) 11 % (10-50); Mean Corpuscular HGB Conc 32.2 g/dl (31.0-37.0); Mean Corpuscular Hemoglobin 27.6 pg (25.0-35.0); Mean Corpuscular Volume 86 fL (80-100); Monocytes # (Auto) 0.4 Thou/mm3 (0.0-0.8); Monocytes % (Auto) 6 % (0-12); Neutrophils # (Auto) 6.2 Thou/mm3 (1.8-7.7); Neutrophils % (Auto) 81 % (37-80); Nucleated Red Blood Cell # 0.00 Thou/mm3 (0.00-0.00); Nucleated Red Blood Cell % 0 /100 WBC (0); Platelet Count 430 Thou/mm3 (140-440); RDW Standard Deviation 44.7 fL (36.4-46.3); Red Blood Count 3.15 Miln/mm3 (4.00-5.20); White Blood Count 7.6 Thou/mm3 (3.6-11.0)
[2025-05-03 06:08] LABS: Hemoglobin 8.7 g/dL (12.0-16.0)
[2025-05-03 06:45] LABS: Albumin, Serum 3.6 gm/dL (3.5-5.0); Albumin/Globulin Ratio 1.1 (1.2-2.2); Alkaline Phosphatase 110 U/L (46-116); Anion Gap 11 (7-16); Aspartate Amino Transferase 15 U/L (0-34); BUN/Creatinine Ratio 13 Ratio (12-20); Bilirubin,Total 0.2 mg/dL (0.3-1.2); Blood Urea Nitrogen 22 mg/dL (9-23); Calcium 8.6 mg/dL (8.3-10.6); Calcium (Corrected) 8.9 mg/dL (8.5-10.1); Carbon Dioxide 23.8 mMol/L (20.0-31.0); Chloride 101 mMol/L (98-107); Creatinine (Component) 1.7 mg/dL (0.6-1.3); Estimated Creatinine Clearance 39.8 mL/min (>60); Globulin 3.2 gm/dL (2.3-3.5); Glucose 115 mg/dL (74-106); Magnesium 1.9 mg/dL (1.6-2.6); Osmolality,Calculated 276 (275-295); Phosphorous 4.0 mg/dL (2.4-5.1); Potassium 4.0 mMol/L (3.4-5.1); Sodium 136 mMol/L (136-145); Total Protein 6.8 gm/dL (5.7-8.2); eGFR 38 See Note
[2025-05-03 06:54] LABS: Alanine Aminotransferase < 7 U/L (10-49)
[2025-05-03] MEDS: INSULIN DEGLUDEC 5 UNIT/0.05 ML (PER 5 UNITS) 15 UNIT SC (07:52)
[2025-05-03] MEDS: HYDROcodone/APAP 5/325 TABLET 1 TAB PO ×2 (07:58→18:30)
[2025-05-03] MEDS: hydrALAZINE INJ 20 MG/ML VIAL 5 MG IVP (07:59)
[2025-05-03] MEDS: FLUCONAZOLE 100 MG TABLET 400 MG PO (08:08)
[2025-05-03] MEDS: DOXYCYCLINE 100 MG TABLET PO (08:08)
--- NOTE | 2025-05-03 08:24 | PC.NURSE ---
DR. BARNES AT BEDSIDE ROUNDING, MADE AWARE PTS PAIN IS NOT CONTROLLED, POC DISCUSSED. NO NEW ORDERS.
[2025-05-03] MEDS: cefTRIAXone 2 GM in SODIUM CHLORIDE 0.9% (Popper) 50 ML IV (09:01)
[2025-05-03] MEDS: POLYETHYLENE GLYCOL 17 GM PACKET PO (09:01)
--- NOTE | 2025-05-03 09:16 | ESPR_ITS ---
<Statement entered by Maurice Lima MD - 05/03/25 16:07> I saw and examined patient personally and supervised PGY 1 resident, Dr. Xiong with formulating a management plan. I agree with the documentation with the exceptions as listed below. Patient still endorses right flank and buttock pain. Urine culture speciated today and antibiotic was changed to levofloxacin 750 mg IV Q48 hourly [renally dosed]. Resumed home medication hydralazine 50 mg p.o. 3 times daily and decreased degludec to 15 units SC from 30 units due to poor oral intake. Pending neurology consultation on 05/04 for nephrostomy exchange. Anticipate discharge within next 24 to 48 hours once continues to clinically improve. Plan of care discussed with Attending Dr. Angeles Lima MD PGY 2 Disclaimer: This note was dictated by speech recognition. Minor errors in process expert may be present due to voice recognition software. Documentation for date of: 05/03/25 Subjective Subjective Interval history: Patient seen and examined at bedside; no acute events overnight. She is still having signficiant back and flank pain; nephrostomy tube output is clear. Exam Vital Signs Temp Pulse Resp BP Pulse Ox O2 Del Method O2 Flow Rate 97.7 F 74 16 167/89 H 98 Room Air 3 05/03/25 03:58 05/03/25 07:59 05/03/25 03:58 05/03/25 07:59 05/03/25 03:58 05/03/25 03:58 05/01/25 10:50 Narrative Exam GENERAL: AOx3, in significant pain HEENT: mucous membranes moist, bilateral sclera anicteric CARDIOVASCULAR: regular rate and rhythm, S1/S2 present, no murmurs appreciated PULMONARY: clear to auscultation bilaterally, no rales/rhonchi/wheezes ABDOMINAL: soft, non-distended, no rebound/guarding, bowel sounds present, moderate suprapubic TTP, significant b/l flank pain : nephrostomy tubes in place draining clear urine EXTREMITIES: no peripheral edema SKIN: warm and dry, intact, no rashes NEURO: CN II-XII grossly intact, no focal deficits, alert, following commands Objective Labs 05/04/25 05:26 05/04/25 05:26 Labs: Laboratory Results - last 24 hr 05/02/25 05/03/25 05:26 05:02 WBC 7.6 RBC 3.15 L Hgb 8.7 L Hct 27.0 L MCV 86 MCH 27.6 MCHC 32.2 RDW Std Deviation 44.7 Plt Count 430 Neut % (Auto) 81 H Lymph % (Auto) 11 [place] % (Auto) 6 Eos % (Auto) 2 Baso % (Auto) 0 Neut # (Auto) 6.2 Lymph # (Auto) 0.8 L [place] # (Auto) 0.4 Eos # (Auto) 0.1 Baso # (Auto) 0.0 Immature Gran # (Auto) 0.05 H Absolute Nucleated RBC 0.00 Immature Gran % 1 H Nucleated RBC % 0 Sodium 136 Potassium 4.0 Chloride 101 Carbon Dioxide 23.8 Anion Gap 11 BUN 22 Creatinine 1.7 H Estim Creat Clear Calc 39.8 L eGFR 38 L BUN/Creatinine Ratio 13 Glucose 115 H Calculated Osmolality 276 Calcium 8.6 Corrected Calcium 8.9 Phosphorus 4.0 Magnesium 1.9 Total Bilirubin 0.2 L AST 15 ALT < 7 L Alkaline Phosphatase 110 Total Protein 6.8 Albumin 3.6 Globulin 3.2 Albumin/Globulin Ratio 1.1 L Coccidioides IgM Ab Positive A Quality Measures Quality Measures VTE prophylaxis Assessment & Plan Assessment Current Active Medications: Generic Name Dose Route Start Last Admin Trade Name Freq PRN Reason Stop Dose Admin Acetaminophen 650 mg 05/01/25 01:45 Acetaminophen 325 Mg Tablet PO 05/31/25 01:44 Q6H PRN Fever >101.5 or pain 1-3 Hydrocodone Bitart/Acetaminophen 1 tab 05/02/25 16:57 05/03/25 07:58 Hydrocodone/Apap 5/325 Tablet PO 05/07/25 16:56 1 tab Q4HR PRN Administration PAIN SCALE 4-10(Mod-Sev Dextrose 25 ml 05/01/25 03:13 Dextrose 50%-Water Inj 50 Ml Syringe IV 05/31/25 03:12 Q15MIN PRN BG 50-70 responsive npo pt Dextrose 50 ml 05/01/25 03:13 Dextrose 50%-Water Inj 50 Ml Syringe IV 05/31/25 03:12 Q15MIN PRN BG <50 OR BG <70 & pt unresponsive Docusate Sodium 100 mg 05/01/25 01:50 05/03/25 05:58 Docusate Sod 100 Mg Capsule PO 05/31/25 01:49 100 mg QDAY PRN Administration CONSTIPATION Protocol Fluconazole 400 mg 05/01/25 09:00 05/03/25 08:08 Fluconazole 100 Mg Tablet PO 05/08/25 08:59 400 mg QDAY CLEMENTINE Administration Glucagon 1 mg 05/01/25 03:13 Glucagon Inj 1 Mg Vial IM Q15MIN PRN BG <70, and no IV access Hydromorphone HCl 1 mg 05/02/25 09:21 05/03/25 08:06 Hydromorphone Inj 2 Mg/Ml Vial IVP 05/06/25 12:02 1 mg Q4HR PRN Administration Breakthrough Pain Ceftriaxone Sodium 2 gm/ 50 mls @ 100 mls/hr 05/03/25 08:29 05/03/25 09:01 Sodium Chloride IV 05/10/25 08:28 100 mls/hr QDAY CLEMENTINE Administration Insulin Degludec 30 unit 05/02/25 09:00 05/02/25 08:23 Insulin Degludec 5 Unit/0.05 Ml (Per 5 Units) SC 06/01/25 08:59 Not Given On Hold: 05/03/25 07:36 QDAY [facility] Insulin Human Lispro 0 unit 05/01/25 17:00 05/03/25 07:31 Insulin Lispro (Admelog) 1 Unit/0.01 Ml Unit SC 05/31/25 16:59 [facility] Olanzapine 2.5 mg 05/01/25 01:50 Olanzapine 2.5 Mg Tablet PO 05/31/25 01:49 QPM PRN Breakthrough nausea Ondansetron HCl 4 mg 05/01/25 01:45 05/02/25 05:48 Ondansetron Inj 2 Mg/Ml Inj 2 Ml IVP 05/31/25 01:44 4 mg Q6H PRN Administration NAUSEA OR VOMITING Protocol Pharmacy Consult 1 each 05/01/25 12:12 Pharmacy Renal Dose Adjustment 1 Ea XX 05/31/25 12:11 PRN PRN CONSULT Polyethylene Glycol 17 gm 05/01/25 09:00 05/03/25 09:01 Polyethylene Glycol 17 Gm Packet PO 05/31/25 08:59 17 gm QDAY CLEMENTINE Administration Plan Kacy Cedillo 44F pmhx significant for cervical cancer s/p laser therapy 2019 with recurrence and now on radiation daily and chemo weekly, 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 Patient was admitted for management of pyelonephritis, GNR and GPC bacteremia and nephrostomy tube exchange. #Catheter associated UTI #Pyelonephritis #GNR and GPC bacteremia #Complicated UTI, GNR and GPC #Non-malignant bladder mass (urothelial papilloma) causing #Bilateral hydronephrosis s/p bilateral nephrostomy tube placement (11/2024) #s/p L nephrostomy tube replacement 05/01/2025 #History of recurrent multidrug resistant UTIs Patient noted to have fever in the ED and was found to have fever 102, leukocytosis 16.8 with elevated lactic acid 2.2 -> 1.4 s/p 1.5L bolus in ED. Patient has a history of bilateral nephrostomy tubes for urothelial papilloma and recurrent multidrug-resistant UTIs. Additionally, UA was highly suggestive of an infection, and in conjunction with the patient's right flank pain, this is a complicated UTI suggestive of pyelonephritis. Per patient, she has not had nephrostomy tube replacement since they replaced back in December. GNR bacteremia likely 2/2 UTI vs chronic nephrostomy tube Preliminary BCx growing GNR x2 and GPC. Preliminary UCx GNR and GPC. SOFA-2 score 1. Zosyn x1 in ED. Bactrim double strength (05/01-05/02) Plan: - Switched antibiotic to levofloxacin 750 IV q48H (renal dosing) - IR unable to replace left nephrostomy however due to significant pain will defer right nephrostomy tube replacement to urology or surgery under anesthesia - Urology consulted, will exchange neprhostomy tube on 05/04 - Dilaudid 1 mg q4h prn for pain #SAPPHIRE on CKD IIIa Cr on 05/02 2.0 with baseline 1.2-1.4. Likely prerenal due to decreased PO intake 2/2 significant pain. Plan: - Pain management - Encourage oral hydration, will consider IVF if Cr persistently elevated - CTM Cr #Suprapubic pain 2/2 #Cervical cancer on radiation daily and chemo weekly #History of cervical mass (previously 19 x 15 x 24 mm) #History of cervical cancer s/p laser therapy (2019) Patient noted to have a cervical mass, previously identified as 19 x 15 x 24 mm on transvaginal ultrasound. Patient obtained biopsy in outside facility, and has been referred to Dr. Mckeon in [place] for management with chemotherapy (only 1 dose has been given so far) and daily radiation therapy (started on 04/27). Transvaginal ultrasound 03/13/2025 shows calcified cervical mass measuring 19 x [address] abdomen/pelvis on 04/01/2025 shows subcentimeter abdominal and pelvic lymph nodes Plan: - Patient to follow-up outpatient - If patient's hospital course if prolonged, will consider consulting radiation oncology - Zofran as needed for nausea/vomiting - Resumed patient's home olanzapine 2.5 mg nightly as needed for nausea/vomiting - Dilaudid 1 mg q4h prn for pain #Insulin dependent type 2 diabetes Patient noted to have a history of insulin-dependent diabetes mellitus and uses 30 units of insulin glargine daily and 5 units of insulin lispro with meals. Current a1c 8.1, previous 6.0 on 01/2025. Plan: - Insulin degludaec 30u QD; today was 15u QD due to poor oral intake - Sliding scale insulin step 1 #Normocytic anemia #EMILY #Anemia of chronic disease Patient noted to have hemoglobin of 9.7 on initial labs. Since this is normocytic, likely secondary to anemia of chronic disease, especially given the patient's recurrent UTIs. Iron 8, TIBC 185, iron sat 4, ferritin 556. 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 Patient states previously treated but recurred. Plan: - Fluconazole 400 mg daily - F/u cocci IgM #Pulmonary masses, right upper lobe and right lower lobe Patient noted to have a history of pulmonary masses suspicious for nodular pulmonary metastatic disease. CT chest/abdomen/pelvis on 03/14/2025 shows a 23 mm mass in the right upper lobe and a 23 mm mass in the right lower lobe CT abdomen/pelvis on 04/01 visualized mass in right lower lobe Plan: - Patient to follow-up outpatient #History of hypertension Patient has a history of hypertension to which she takes losartan 100 mg at home. Plan: - BP labile due to pain and bacteremia, hold losartan #History of constipation Patient does have a history of constipation likely secondary to her opiate use. Plan: - Resumed patient's home docusate 100 mg daily as needed for constipation Hospital management: Lines: PIV, b/l nephrostomy tubes Diet: carb consistent low, renal Bowel: docusate prn GI prophylaxis: not indicated DVT prophylaxis: SCDs Disposition: med tele, IV abx, GNR and GPC bacteremia, urology consult CODE STATUS: FULL CODE This case was discussed with my attending physician, Dr. Reynoso, and senior resident, Dr. Lima. Alexandr Xiong, PGY1 Attending Provider Attestation/Addendum I have discussed and was present for the essential components of the history, physical examination, diagnosis, and treatment plan with the resident. I agree with the patient's care as documented by the resident and amended herein by me. Rafiq Reynoso DO. Although this document has been carefully reviewed, there may still be some phonetic and other typographical errors. These errors are purely grammatical due to imperfections in the software program and should not be construed in any way to compromise the substance of the patient's medical care during this visit.
--- NOTE | 2025-05-03 11:14 | PC.NURSE ---
DR. MALONE AND MEDICAL TEAM ROUNDING, POC DISCUSSED. ORDERS WILL BE ENTER BY TEAM.
[2025-05-03] MEDS: LOSARTAN POTASSIUM 25 MG TABLET 100 MG PO (11:36)
[2025-05-03] MEDS: ONDANSETRON INJ 2 MG/ML INJ 2 ML 4 MG IVP (13:04)
--- NOTE | 2025-05-03 14:14 | PC.NURSE ---
DR. WALLER MADE AWARE PT BLOOD PRESSURE 157/94. NO NEW ORDERS GIVEN,
--- NOTE | 2025-05-03 14:58 | PC.NURSE ---
DR. WALLER MADE AWARE OF PIMPLE LIKE TO LEFT BUTTOCKS WHICH IS PAINFUL. MD TO COME UP AND ASSESS PT. NO NEW ORDERS GIVEN
[2025-05-04] VITALS (9 sets, daily range): BP systolic 118–161; BP diastolic 63–91; PULSE 60–84; RESP 16–19; TEMP 36.1–36.7; O2SAT 96–100; BMI 28.8
[2025-05-04] MEDS: HYDROmorphone INJ 2 MG/ML VIAL 1 MG IVP ×4 (03:30→21:19)
[2025-05-04 06:08] LABS: Basophils # (Auto) 0.0 Thou/mm3 (0.0-0.2); Basophils % (Auto) 1 % (0-2.5); Eosinophils # (Auto) 0.1 Thou/mm3 (0.0-0.5); Eosinophils % (Auto) 3 % (0-10); Hematocrit 25.8 % (36.0-46.0); Immature Granulocytes Auto 0.06 Thou/mm3 (0.00-0.00); Lymphocytes # (Auto) 1.0 Thou/mm3 (1.0-4.8); Lymphocytes % (Auto) 18 % (10-50); Mean Corpuscular HGB Conc 32.2 g/dl (31.0-37.0); Mean Corpuscular Hemoglobin 27.5 pg (25.0-35.0); Mean Corpuscular Volume 85 fL (80-100); Monocytes # (Auto) 0.4 Thou/mm3 (0.0-0.8); Monocytes % (Auto) 8 % (0-12); Neutrophils # (Auto) 3.9 Thou/mm3 (1.8-7.7); Neutrophils % (Auto) 70 % (37-80); Nucleated Red Blood Cell # 0.00 Thou/mm3 (0.00-0.00); Nucleated Red Blood Cell % 0 /100 WBC (0); Platelet Count 386 Thou/mm3 (140-440); RDW Standard Deviation 44.6 fL (36.4-46.3); Red Blood Count 3.02 Miln/mm3 (4.00-5.20); White Blood Count 5.6 Thou/mm3 (3.6-11.0)
[2025-05-04 06:13] LABS: Hemoglobin 8.3 g/dL (12.0-16.0)
[2025-05-04 07:17] LABS: Alanine Aminotransferase 8 U/L (10-49); Albumin, Serum 3.6 gm/dL (3.5-5.0); Albumin/Globulin Ratio 1.2 (1.2-2.2); Alkaline Phosphatase 105 U/L (46-116); Anion Gap 11 (7-16); Aspartate Amino Transferase 13 U/L (0-34); BUN/Creatinine Ratio 14 Ratio (12-20); Bilirubin,Total < 0.2 mg/dL (0.3-1.2); Blood Urea Nitrogen 19 mg/dL (9-23); Calcium 8.9 mg/dL (8.3-10.6); Calcium (Corrected) 9.2 mg/dL (8.5-10.1); Carbon Dioxide 23.6 mMol/L (20.0-31.0); Chloride 100 mMol/L (98-107); Creatinine (Component) 1.4 mg/dL (0.6-1.3); Estimated Creatinine Clearance 48.3 mL/min (>60); Globulin 3.0 gm/dL (2.3-3.5); Glucose 89 mg/dL (74-106); Magnesium 1.7 mg/dL (1.6-2.6); Osmolality,Calculated 271 (275-295); Phosphorous 3.2 mg/dL (2.4-5.1); Potassium 4.1 mMol/L (3.4-5.1); Sodium 135 mMol/L (136-145); Total Protein 6.6 gm/dL (5.7-8.2); eGFR 48 See Note
[2025-05-04] MEDS: FLUCONAZOLE 100 MG TABLET 400 MG PO (08:32)
--- NOTE | 2025-05-04 08:47 | PC.NURSE ---
DR. BARNES AT BEDSIDE POC DISCUSSED. MADE AWARE PT WAS HAVING LEFT LOWER SHARP PAIN WITH FOOD AND POOR APPETITE. NO NEW ORDERS
[2025-05-04] MEDS: POLYETHYLENE GLYCOL 17 GM PACKET PO (09:08)
--- NOTE | 2025-05-04 09:50 | PD.RESPRO ---
Documentation for date of: 05/04/25 Subjective Subjective Interval history: No acute overnight events. Patient seen examined at bedside. Patient reports feeling much better today and pain is managed by Dilaudid. VSS. Pending urology consult for right nephrostomy tube. Continue levofloxacin. Per nursing, white fluid-filled 1 to 2 cm bullae seen on back above left buttock. Yesterday, area was erythematous however today bullae noted, ordered HSV workup. Exam Vital Signs Temp Pulse Resp BP Pulse Ox O2 Del Method O2 Flow Rate 97.5 F 68 18 118/72 99 Room Air 3 05/04/25 08:00 05/04/25 08:00 05/04/25 08:00 05/04/25 08:00 05/04/25 08:00 05/04/25 04:00 05/03/25 16:00 Narrative Exam GENERAL: AOx3, no acute distress, poor dentition HEENT: mucous membranes moist, bilateral sclera anicteric CARDIOVASCULAR: regular rate and rhythm, S1/S2 present, no murmurs appreciated PULMONARY: clear to auscultation bilaterally, no rales/rhonchi/wheezes ABDOMINAL: soft, non-distended, no rebound/guarding, bowel sounds present, moderate suprapubic TTP, significant b/l flank pain : nephrostomy tubes in place draining clear urine EXTREMITIES: no peripheral edema SKIN: warm and dry, intact, no rashes, posterior above L buttock 2 cm white blistering cluster NEURO: CN II-XII grossly intact, no focal deficits, alert, following commands Objective Labs 05/04/25 05:26 05/04/25 05:26 Labs: Laboratory Results - last 24 hr 05/04/25 05:26 WBC 5.6 RBC 3.02 L Hgb 8.3 L Hct 25.8 L MCV 85 MCH 27.5 MCHC 32.2 RDW Std Deviation 44.6 Plt Count 386 D Neut % (Auto) 70 Lymph % (Auto) 18 Bracken % (Auto) 8 Eos % (Auto) 3 Baso % (Auto) 1 Neut # (Auto) 3.9 Lymph # (Auto) 1.0 Bracken # (Auto) 0.4 Eos # (Auto) 0.1 Baso # (Auto) 0.0 Immature Gran # (Auto) 0.06 H Absolute Nucleated RBC 0.00 Immature Gran % 1 H Nucleated RBC % 0 Sodium 135 L Potassium 4.1 Chloride 100 Carbon Dioxide 23.6 Anion Gap 11 BUN 19 Creatinine 1.4 H Estim Creat Clear Calc 48.3 L eGFR 48 L BUN/Creatinine Ratio 14 Glucose 89 Calculated Osmolality 271 L Calcium 8.9 Corrected Calcium 9.2 Phosphorus 3.2 Magnesium 1.7 Total Bilirubin < 0.2 L AST 13 ALT 8 L Alkaline Phosphatase 105 Total Protein 6.6 Albumin 3.6 Globulin 3.0 Albumin/Globulin Ratio 1.2 Quality Measures Quality Measures VTE prophylaxis Assessment & Plan Assessment Current Active Medications: Generic Name Dose Route Start Last Admin Trade Name Freq PRN Reason Stop Dose Admin Acetaminophen 650 mg 05/01/25 01:45 Acetaminophen 325 Mg Tablet PO 05/31/25 01:44 Q6H PRN Fever >101.5 or pain 1-3 Hydrocodone Bitart/Acetaminophen 1 tab 05/02/25 16:57 05/03/25 18:30 Hydrocodone/Apap 5/325 Tablet PO 05/07/25 16:56 1 tab Q4HR PRN Administration PAIN SCALE 4-10(Mod-Sev Dextrose 25 ml 05/01/25 03:13 Dextrose 50%-Water Inj 50 Ml Syringe IV 05/31/25 03:12 Q15MIN PRN BG 50-70 responsive npo pt Dextrose 50 ml 05/01/25 03:13 Dextrose 50%-Water Inj 50 Ml Syringe IV 05/31/25 03:12 Q15MIN PRN BG <50 OR BG <70 & pt unresponsive Docusate Sodium 100 mg 05/01/25 01:50 05/03/25 05:58 Docusate Sod 100 Mg Capsule PO 05/31/25 01:49 100 mg QDAY PRN Administration CONSTIPATION Protocol Fluconazole 400 mg 05/01/25 09:00 05/04/25 08:32 Fluconazole 100 Mg Tablet PO 05/08/25 08:59 400 mg QDAY CLEMENTINE Administration Glucagon 1 mg 05/01/25 03:13 Glucagon Inj 1 Mg Vial IM Q15MIN PRN BG <70, and no IV access Hydralazine HCl 50 mg 05/03/25 14:15 05/04/25 05:08 Hydralazine Hcl 25 Mg Tablet PO 06/02/25 14:14 50 mg TID CLEMENTINE Administration Hydralazine HCl 10 mg 05/03/25 18:41 Hydralazine Inj 20 Mg/Ml Vial IVP 06/02/25 18:40 PRN PRN SBP > 170 or DBP > 110 Hydromorphone HCl 1 mg 05/02/25 09:21 05/04/25 08:32 Hydromorphone Inj 2 Mg/Ml Vial IVP 05/06/25 12:02 1 mg Q4HR PRN Administration Breakthrough Pain Levofloxacin/Dextrose 750 mg in 150 mls @ 100 mls/hr 05/03/25 13:45 05/03/25 14:24 Levaquin Ivpb IV 05/10/25 13:44 100 mls/hr Q48H CLEMENTINE Administration Insulin Degludec 30 unit 05/02/25 09:00 05/02/25 08:23 Insulin Degludec 5 Unit/0.05 Ml (Per 5 Units) SC 06/01/25 08:59 Not Given On Hold: 05/03/25 07:36 QDAY CLEMENTINE Insulin Human Lispro 0 unit 05/01/25 17:00 05/04/25 07:24 Insulin Lispro (Admelog) 1 Unit/0.01 Ml Unit SC 05/31/25 16:59 Not Given [facility] Protocol Olanzapine 2.5 mg 05/01/25 01:50 05/03/25 17:25 Olanzapine 2.5 Mg Tablet PO 05/31/25 01:49 2.5 mg QPM PRN Administration Breakthrough nausea Ondansetron HCl 4 mg 05/01/25 01:45 05/03/25 13:04 Ondansetron Inj 2 Mg/Ml Inj 2 Ml IVP 05/31/25 01:44 4 mg Q6H PRN Administration NAUSEA OR VOMITING Protocol Pharmacy Consult 1 each 05/01/25 12:12 Pharmacy Renal Dose Adjustment 1 Ea XX 05/31/25 12:11 PRN PRN CONSULT Pharmacy Consult 1 each 05/03/25 13:40 Pharmacy Renal Dose Adjustment 1 Ea XX 06/02/25 13:39 PRN PRN CONSULT Polyethylene Glycol 17 gm 05/01/25 09:00 05/04/25 09:08 Polyethylene Glycol 17 Gm Packet PO 05/31/25 08:59 17 gm QDAY CLEMENTINE Administration Plan Kayc Cedillo 44F pmhx significant for cervical cancer s/p laser therapy 2019 with recurrence and now on radiation daily and chemo weekly, 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 Patient was admitted for management of pyelonephritis, GNR and GPC bacteremia and nephrostomy tube exchange. #Pyelonephritis likely 2/2 chronic nephrostomy tubes #Klebsiella pneumoniae bacteremia #Complicated UTI, Klebsiella pnemoniae, Serratia marcescens, Enterococcus faecalis #Non-malignant bladder mass (urothelial papilloma) causing #Bilateral hydronephrosis s/p bilateral nephrostomy tube placement (11/2024) #s/p L nephrostomy tube replacement 05/01/2025 #History of recurrent multidrug resistant UTIs Patient noted to have fever in the ED and was found to have fever 102, leukocytosis 16.8 with elevated lactic acid 2.2 -> 1.4 s/p 1.5L bolus in ED. Patient has a history of bilateral nephrostomy tubes for urothelial papilloma and recurrent multidrug-resistant UTIs. Additionally, UA was highly suggestive of an infection, and in conjunction with the patient's right flank pain, this is a complicated UTI suggestive of pyelonephritis. Per patient, she has not had nephrostomy tube replacement since they replaced back in December. GNR bacteremia likely 2/2 UTI vs chronic nephrostomy tube BCx: Klebsiella pneumoniae, UCx: klebsiella pneumoniae, serratia marcescens, enterococcus faecalis SOFA-2 score 1. Zosyn x1 in ED. Bactrim double strength (05/01-05/02), cefepime (05/01-05/03) Plan: - Levofloxacin 750 IV q48H (renal dosing) (05/03- - IR unable to replace left nephrostomy however due to significant pain will defer right nephrostomy tube replacement to urology or surgery under anesthesia - Urology consulted, recs appreciated - Dilaudid 1 mg q4h prn for pain #Bullae on L posterior lower back On 05/03, erythema at site, however 2 cm white fluid bullae noticed on L posterior back above buttock tender to touch. No pain in a dermatome, just at lesion Ddx: HSV, dermatitis bullae, allergic bullae, friction bullae Plan: - CTM size and spread - F/u HSV Ab #SAPPHIRE on CKD IIIa, resolved Cr on 05/02 2.0 with baseline 1.2-1.4. Likely prerenal due to decreased PO intake 2/2 significant pain. Plan: - Pain management - Encourage oral hydration, will consider IVF if Cr persistently elevated - CTM Cr #Suprapubic pain 2/2 #Cervical cancer on radiation daily and chemo weekly #History of cervical mass (previously 19 x 15 x 24 mm) #History of cervical cancer s/p laser therapy (2019) Patient noted to have a cervical mass, previously identified as 19 x 15 x 24 mm on transvaginal ultrasound. Patient obtained biopsy in outside facility, and has been referred to Dr. Mckeon in [place] for management with chemotherapy (only 1 dose has been given so far) and daily radiation therapy (started on 04/27). Transvaginal ultrasound 03/13/2025 shows calcified cervical mass measuring 19 x [address] abdomen/pelvis on 04/01/2025 shows subcentimeter abdominal and pelvic lymph nodes Plan: - Patient to follow-up outpatient - If patient's hospital course if prolonged, will consider consulting radiation oncology - Zofran as needed for nausea/vomiting - Resumed patient's home olanzapine 2.5 mg nightly as needed for nausea/vomiting - Dilaudid 1 mg q4h prn for pain #Insulin dependent type 2 diabetes Patient noted to have a history of insulin-dependent diabetes mellitus and uses 30 units of insulin glargine daily and 5 units of insulin lispro with meals. Current a1c 8.1, previous 6.0 on 01/2025. Plan: - Insulin degludaec 15u QD due to poor oral intake - Sliding scale insulin step 1 #Normocytic anemia #EMILY #Anemia of chronic disease Patient noted to have hemoglobin of 9.7 on initial labs. Since this is normocytic, likely secondary to anemia of chronic disease, especially given the patient's recurrent UTIs. Iron 8, TIBC 185, iron sat 4, ferritin 556. 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 Patient states previously treated but recurred. Cocci IgM + Plan: - Fluconazole 400 mg daily #Pulmonary masses, right upper lobe and right lower lobe Patient noted to have a history of pulmonary masses suspicious for nodular pulmonary metastatic disease. CT chest/abdomen/pelvis on 03/14/2025 shows a 23 mm mass in the right upper lobe and a 23 mm mass in the right lower lobe CT abdomen/pelvis on 04/01 visualized mass in right lower lobe Plan: - Patient to follow-up outpatient #History of hypertension Patient has a history of hypertension to which she takes losartan 100 mg at home. Plan: - BP labile due to pain and bacteremia, hold losartan #History of constipation Patient does have a history of constipation likely secondary to her opiate use. Plan: - Resumed patient's home docusate 100 mg daily as needed for constipation Hospital management: Lines: PIV, b/l nephrostomy tubes Diet: carb consistent low, renal Bowel: docusate prn GI prophylaxis: not indicated DVT prophylaxis: SCDs Disposition: med tele, IV abx for bacteremia and UTI, urology consult CODE STATUS: FULL CODE This case was discussed with my attending physician, Dr. Reynoso, and senior resident, Dr. Wills. Francesca Orosco DO Internal Medicine PGY-1 Senior Resident Attestation: The patient was in a lot a lot of pain, and was given Dilaudid 1 mg x 1. Will continue with Dilaudid 1 mg IV every 4 hourly as needed[address] Urologist Dr. Friedman to see the patient today. The patient also helped erythematous pustules, and HSV blood work was ordered. Pending nephrostomy tube exchange for discharge. I discussed with and supervised the customer operations intern physician involved in the care of this patient. I personally saw and examined the patient and discussed the assessment and plan with the entire medicine team, including my attending. I agree with the assessment and plan as documented above. Rodrigo Wills MD PGY3 Internal Medicine Attending Provider Attestation/Addendum I have discussed and was present for the essential components of the history, physical examination, diagnosis, and treatment plan with the resident. I agree with the patient's care as documented by the resident and amended herein by me. Rafiq Reynoso DO. Although this document has been carefully reviewed, there may still be some phonetic and other typographical errors. These errors are purely grammatical due to imperfections in the software program and should not be construed in any way to compromise the substance of the patient's medical care during this visit.
--- NOTE | 2025-05-04 10:44 | PC.SS ---
Follow up note: On IV antibiotic. Urology consulting. Pt will return home upon d.c.
[2025-05-04] MEDS: HYDROcodone/APAP 5/325 TABLET 1 TAB PO ×2 (14:10→20:21)
[2025-05-04] MEDS: GABAPENTIN 300 MG CAPSULE PO ×2 (14:18→21:19)
[2025-05-04] MEDS: INSULIN LISPRO (AdmeLOG) 1 UNIT/0.01 ML UNIT SC (21:19)
[2025-05-05] VITALS (21 sets, daily range): BP systolic 121–169; BP diastolic 59–93; PULSE 67–96; RESP 12–20; TEMP 36.2–37.1; O2SAT 94–100
[2025-05-05] MEDS: HYDROcodone/APAP 5/325 TABLET 1 TAB PO ×2 (04:46→13:47)
[2025-05-05] MEDS: HYDROmorphone INJ 2 MG/ML VIAL 1 MG IVP ×2 (05:22→19:41)
[2025-05-05] MEDS: GABAPENTIN 300 MG CAPSULE PO ×3 (05:22→21:06)
[2025-05-05 06:14] LABS: Basophils # (Auto) 0.0 Thou/mm3 (0.0-0.2); Basophils % (Auto) 1 % (0-2.5); Eosinophils # (Auto) 0.1 Thou/mm3 (0.0-0.5); Eosinophils % (Auto) 3 % (0-10); Hematocrit 28.5 % (36.0-46.0); Hemoglobin 9.1 g/dL (12.0-16.0); Immature Granulocytes Auto 0.05 Thou/mm3 (0.00-0.00); Lymphocytes # (Auto) 1.5 Thou/mm3 (1.0-4.8); Lymphocytes % (Auto) 32 % (10-50); Mean Corpuscular HGB Conc 31.9 g/dl (31.0-37.0); Mean Corpuscular Hemoglobin 27.8 pg (25.0-35.0); Mean Corpuscular Volume 87 fL (80-100); Monocytes # (Auto) 0.4 Thou/mm3 (0.0-0.8); Monocytes % (Auto) 9 % (0-12); Neutrophils # (Auto) 2.5 Thou/mm3 (1.8-7.7); Neutrophils % (Auto) 55 % (37-80); Nucleated Red Blood Cell # 0.00 Thou/mm3 (0.00-0.00); Nucleated Red Blood Cell % 0 /100 WBC (0); Platelet Count 404 Thou/mm3 (140-440); RDW Standard Deviation 46.1 fL (36.4-46.3); Red Blood Count 3.27 Miln/mm3 (4.00-5.20); White Blood Count 4.6 Thou/mm3 (3.6-11.0)
[2025-05-05 06:47] LABS: Alanine Aminotransferase < 7 U/L (10-49); Albumin, Serum 3.8 gm/dL (3.5-5.0); Albumin/Globulin Ratio 1.2 (1.2-2.2); Alkaline Phosphatase 118 U/L (46-116); Anion Gap 11 (7-16); Aspartate Amino Transferase 14 U/L (0-34); BUN/Creatinine Ratio 12 Ratio (12-20); Bilirubin,Total < 0.2 mg/dL (0.3-1.2); Blood Urea Nitrogen 17 mg/dL (9-23); Calcium 9.2 mg/dL (8.3-10.6); Calcium (Corrected) 9.4 mg/dL (8.5-10.1); Carbon Dioxide 24.1 mMol/L (20.0-31.0); Chloride 102 mMol/L (98-107); Creatinine (Component) 1.4 mg/dL (0.6-1.3); Estimated Creatinine Clearance 47.1 mL/min (>60); Globulin 3.3 gm/dL (2.3-3.5); Glucose 135 mg/dL (74-106); Magnesium 1.7 mg/dL (1.6-2.6); Osmolality,Calculated 277 (275-295); Phosphorous 4.1 mg/dL (2.4-5.1); Potassium 4.3 mMol/L (3.4-5.1); Sodium 137 mMol/L (136-145); Total Protein 7.1 gm/dL (5.7-8.2); eGFR 48 See Note
--- NOTE | 2025-05-05 07:00 | XR_ITS ---
EXAM: Fluoroscopic guided right nephrostomy tube exchange. INDICATION: Routine exchange. Fluoroscopy time: 7.2 minutes Dose: 94.14 mGy DATE: 05/05/2025, 8:55 a.m. PROCEDURE: After discussion of risks and benefits informed consent was obtained. The patient was brought to the angiography suite and placed prone on the exam table. The area around the existing right nephrostomy tube was cleaned and draped in normal sterile surgical fashion. 10 cc of 1% lidocaine was used for local anesthesia. Conscious sedation was begun with direct continuous nursing supervision. 5 cc of contrast was injected through the existing nephrostomy tube which demonstrated appropriate positioning within the collecting system. A 0.035 wire was advanced through the nephrostomy tube and coiled in the collecting system under fluoroscopic guidance. The existing nephrostomy tube was removed with gentle traction. A new 10 [place] pigtail catheter was placed over the wire and advanced into the renal collecting system. Wire was withdrawn. 5 cc of contrast was injected into the new tube which demonstrated appropriate positioning within the renal collecting system. Catheter sutured in place, covered with sterile dressing and attached to gravity bag drainage. Patient tolerated the procedure well. There were no immediate complications. IMPRESSION: Successful fluoroscopic guided 10 [place] right nephrostomy tube exchange as above. Recommend routine exchange every 3 months
[2025-05-05 08:21] LABS: INR 1.0 (0.9-1.3); Partial Thromboplastin Time 31.9 Seconds (22.0-36.0); Prothrombin Time 10.9 Seconds (9.0-12.2)
--- NOTE | 2025-05-05 08:32 | PC.NURSE ---
notified ailyn rasmussen of jodi ochoa recommedation for a ct abd/pelvis
[2025-05-05] MEDS: fentaNYL CIT INJ 50 mCg/ML AMP 2ML 150 MCG IVP (10:30)
[2025-05-05] MEDS: MIDAZOLAM INJ 1 MG/ML VIAL 2 ML 1.5 MG IVP (10:30)
[2025-05-05] MEDS: LIDOCAINE INJ PF 1% 30 ML VIAL 25 ML INFL (10:33)
--- NOTE | 2025-05-05 11:06 | PC.NURSE ---
1106 patient is awake, alert, breathing unlabored, s/p right nephrostomy tube exchange, report given to ailyn TABARES, patient transferred back to room [id number]
--- NOTE | 2025-05-05 14:31 | PD.RESPRO ---
Documentation for date of: 05/05/25 Subjective Subjective Interval history: No acute overnight events. Patient seen examined at bedside. Patient seen following right nephrostomy tube change. Reports no pain. IR changed right nephrostomy tube today, will observe for 1 day and anticipate discharge within the next 24 to 48 hours if patient's pain is well-controlled. Vital signs stable. Patient reports that she has not yet followed up with outpatient cancer center regarding her pulmonary nodules as she was referred to [facility] but has not heard back. Continue IV levofloxacin, patient will likely need extended course of antibiotics given Klebsiella bacteremia and complicated UTI. Exam Vital Signs Temp Pulse Resp BP Pulse Ox O2 Del Method O2 Flow Rate 97.4 F 74 18 162/93 H 99 Room Air 3 05/05/25 12:00 05/05/25 13:47 05/05/25 12:00 05/05/25 13:47 05/05/25 12:00 05/05/25 12:00 05/05/25 11:00 Narrative Exam GENERAL: AOx3, no acute distress, poor dentition HEENT: mucous membranes moist, bilateral sclera anicteric CARDIOVASCULAR: regular rate and rhythm, S1/S2 present, no murmurs appreciated PULMONARY: clear to auscultation bilaterally, no rales/rhonchi/wheezes ABDOMINAL: soft, non-distended, no rebound/guarding, bowel sounds present : nephrostomy tubes in place draining clear urine EXTREMITIES: no peripheral edema SKIN: warm and dry, intact, no rashes, posterior above L buttock 2 cm white blistering cluster stable NEURO: CN II-XII grossly intact, no focal deficits, alert, following commands Objective Labs 05/05/25 05:20 05/05/25 05:20 Labs: Laboratory Results - last 24 hr 05/05/25 05:20 WBC 4.6 RBC 3.27 L Hgb 9.1 L Hct 28.5 L MCV 87 MCH 27.8 MCHC 31.9 RDW Std Deviation 46.1 Plt Count 404 Neut % (Auto) 55 Lymph % (Auto) 32 [place] % (Auto) 9 Eos % (Auto) 3 Baso % (Auto) 1 Neut # (Auto) 2.5 Lymph # (Auto) 1.5 [place] # (Auto) 0.4 Eos # (Auto) 0.1 Baso # (Auto) 0.0 Immature Gran # (Auto) 0.05 H Absolute Nucleated RBC 0.00 Immature Gran % 1 H Nucleated RBC % 0 PT 10.9 INR 1.0 APTT 31.9 Sodium 137 Potassium 4.3 Chloride 102 Carbon Dioxide 24.1 Anion Gap 11 BUN 17 Creatinine 1.4 H Estim Creat Clear Calc 47.1 L eGFR 48 L BUN/Creatinine Ratio 12 Glucose 135 H D Calculated Osmolality 277 Calcium 9.2 Corrected Calcium 9.4 Phosphorus 4.1 Magnesium 1.7 Total Bilirubin < 0.2 L AST 14 ALT < 7 L Alkaline Phosphatase 118 H Total Protein 7.1 Albumin 3.8 Globulin 3.3 Albumin/Globulin Ratio 1.2 Quality Measures Quality Measures VTE prophylaxis Assessment & Plan Assessment Current Active Medications: Generic Name Dose Route Start Last Admin Trade Name Freq PRN Reason Stop Dose Admin Acetaminophen 650 mg 05/01/25 01:45 Acetaminophen 325 Mg Tablet PO 05/31/25 01:44 Q6H PRN Fever >101.5 or pain 1-3 Hydrocodone Bitart/Acetaminophen 1 tab 05/02/25 16:57 05/05/25 13:47 Hydrocodone/Apap 5/325 Tablet PO 05/07/25 16:56 1 tab Q4HR PRN Administration PAIN SCALE 4-10(Mod-Sev Dextrose 25 ml 05/01/25 03:13 Dextrose 50%-Water Inj 50 Ml Syringe IV 05/31/25 03:12 Q15MIN PRN BG 50-70 responsive npo pt Dextrose 50 ml 05/01/25 03:13 Dextrose 50%-Water Inj 50 Ml Syringe IV 05/31/25 03:12 Q15MIN PRN BG <50 OR BG <70 & pt unresponsive Docusate Sodium 100 mg 05/01/25 01:50 05/03/25 05:58 Docusate Sod 100 Mg Capsule PO 05/31/25 01:49 100 mg QDAY PRN Administration CONSTIPATION Protocol Fluconazole 400 mg 05/01/25 09:00 05/05/25 09:54 Fluconazole 100 Mg Tablet PO 05/08/25 08:59 Not Given QDAY CLEMENTINE Gabapentin 300 mg 05/04/25 14:15 05/05/25 13:47 Gabapentin 300 Mg Capsule PO 06/03/25 14:14 300 mg TID CLEMENTINE Administration Glucagon 1 mg 05/01/25 03:13 Glucagon Inj 1 Mg Vial IM Q15MIN PRN BG <70, and no IV access Hydralazine HCl 50 mg 05/03/25 14:15 05/05/25 13:47 Hydralazine Hcl 25 Mg Tablet PO 06/02/25 14:14 50 mg TID CLEMENTINE Administration Hydralazine HCl 10 mg 05/04/25 13:47 Hydralazine Inj 20 Mg/Ml Vial IVP 06/02/25 18:40 Q4H PRN SBP > 170 or DBP > 110 Hydromorphone HCl 1 mg 05/02/25 09:21 05/05/25 05:22 Hydromorphone Inj 2 Mg/Ml Vial IVP 05/06/25 12:02 1 mg Q4HR PRN Administration Breakthrough Pain Hydromorphone HCl 2 mg 05/05/25 08:18 Hydromorphone Inj 2 Mg/Ml Vial IVP X1 PRN Give prior to Nephrostomy for pain control Levofloxacin/Dextrose 750 mg in 150 mls @ 100 mls/hr 05/03/25 13:45 05/05/25 13:47 Levaquin Ivpb IV 05/10/25 13:44 100 mls/hr Q48H CLEMENTINE Administration Insulin Degludec 30 unit 05/02/25 09:00 05/02/25 08:23 Insulin Degludec 5 Unit/0.05 Ml (Per 5 Units) SC 06/01/25 08:59 Not Given On Hold: 05/03/25 07:36 QDAY [facility] Insulin Human Lispro 0 unit 05/01/25 17:00 05/05/25 11:31 Insulin Lispro (Admelog) 1 Unit/0.01 Ml Unit SC 05/31/25 16:59 Not Given ACHS [facility] Protocol Olanzapine 2.5 mg 05/01/25 01:50 05/03/25 17:25 Olanzapine 2.5 Mg Tablet PO 05/31/25 01:49 2.5 mg QPM PRN Administration Breakthrough nausea Ondansetron HCl 4 mg 05/01/25 01:45 05/03/25 13:04 Ondansetron Inj 2 Mg/Ml Inj 2 Ml IVP 05/31/25 01:44 4 mg Q6H PRN Administration NAUSEA OR VOMITING Protocol Pharmacy Consult 1 each 05/03/25 13:40 Pharmacy Renal Dose Adjustment 1 Ea XX 06/02/25 13:39 PRN PRN CONSULT Polyethylene Glycol 17 gm 05/01/25 09:00 05/05/25 09:54 Polyethylene Glycol 17 Gm Packet PO 05/31/25 08:59 Not Given QDAY CLEMENTINE Plan Kacy Cedillo 44F pmhx significant for cervical cancer s/p laser therapy 2019 with recurrence and now on radiation daily and chemo weekly, 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 #Pyelonephritis likely 2/2 chronic nephrostomy tubes #Klebsiella pneumoniae bacteremia #Complicated UTI, Klebsiella pnemoniae, Serratia marcescens, Enterococcus faecalis #Non-malignant bladder mass (urothelial papilloma) causing #Bilateral hydronephrosis s/p bilateral nephrostomy tube placement (11/2024) #s/p L nephrostomy tube replacement 05/01/2025 #s/p R nephrostomy tube replacement 05/05/2025 #History of recurrent multidrug resistant UTIs Patient noted to have fever in the ED and was found to have fever 102, leukocytosis 16.8 with elevated lactic acid 2.2 -> 1.4 s/p 1.5L bolus in ED. Patient has a history of bilateral nephrostomy tubes for urothelial papilloma and recurrent multidrug-resistant UTIs. Additionally, UA was highly suggestive of an infection, and in conjunction with the patient's right flank pain, this is a complicated UTI suggestive of pyelonephritis. Per patient, she has not had nephrostomy tube replacement since they replaced back in December. GNR bacteremia likely 2/2 UTI vs chronic nephrostomy tube BCx: Klebsiella pneumoniae, UCx: klebsiella pneumoniae, serratia marcescens, enterococcus faecalis SOFA-2 score 1. Zosyn x1 in ED. Bactrim double strength (05/01-05/02), cefepime (05/01-05/03) Plan: - Levofloxacin 750 IV q48H (renal dosing) (05/03- - IR replaced R nephrostomy tube today - Urology consulted, recs appreciated - Dilaudid 1 mg q4h prn for pain #Bullae on L posterior lower back On 05/03, erythema at site, however 2 cm white fluid bullae noticed on L posterior back above buttock tender to touch. No pain in a dermatome, just at lesion Ddx: HSV, dermatitis bullae, allergic bullae, friction bullae Plan: - CTM size and spread - F/u HSV Ab #SAPPHIRE on CKD IIIa, resolved Cr on 05/02 2.0 with baseline 1.2-1.4. Likely prerenal due to decreased PO intake 2/2 significant pain. Plan: - Pain management - Encourage oral hydration, will consider IVF if Cr persistently elevated - CTM Cr #Suprapubic pain 2/2 #Cervical cancer on radiation daily and chemo weekly #History of cervical mass (previously 19 x 15 x 24 mm) #History of cervical cancer s/p laser therapy (2019) Patient noted to have a cervical mass, previously identified as 19 x 15 x 24 mm on transvaginal ultrasound. Patient obtained biopsy in outside facility, and has been referred to Dr. Mckeon in [place] for management with chemotherapy (only 1 dose has been given so far) and daily radiation therapy (started on 04/27). Transvaginal ultrasound 03/13/2025 shows calcified cervical mass measuring 19 x [address] abdomen/pelvis on 04/01/2025 shows subcentimeter abdominal and pelvic lymph nodes Plan: - Patient to follow-up outpatient - If patient's hospital course if prolonged, will consider consulting radiation oncology - Zofran as needed for nausea/vomiting - Resumed patient's home olanzapine 2.5 mg nightly as needed for nausea/vomiting - Dilaudid 1 mg q4h prn for pain #Insulin dependent type 2 diabetes Patient noted to have a history of insulin-dependent diabetes mellitus and uses 30 units of insulin glargine daily and 5 units of insulin lispro with meals. Current a1c 8.1, previous 6.0 on 01/2025. Plan: - Insulin degludaec 15u QD due to poor oral intake - Sliding scale insulin step 1 #Normocytic anemia #EMILY #Anemia of chronic disease Patient noted to have hemoglobin of 9.7 on initial labs. Since this is normocytic, likely secondary to anemia of chronic disease, especially given the patient's recurrent UTIs. Iron 8, TIBC 185, iron sat 4, ferritin 556. Peripheral smear marked normocytic anemia with mild hypochromic nausea with mild thrombocytosis consistent recovery from iron deficiency Plan: - Manage underlying infection, will hold off on inpatient iron supplementation due to bacteremia - Patient to follow-up outpatient #History of Valley Fever Patient noted to have a history of Coccidioides. Patient states previously treated but recurred. Cocci IgM + Plan: - Fluconazole 400 mg daily #Pulmonary masses, right upper lobe and right lower lobe Patient noted to have a history of pulmonary masses suspicious for nodular pulmonary metastatic disease. CT chest/abdomen/pelvis on 03/14/2025 shows a 23 mm mass in the right upper lobe and a 23 mm mass in the right lower lobe CT abdomen/pelvis on 04/01 visualized mass in right lower lobe Plan: - Patient to follow-up outpatient at [facility] #History of hypertension Patient has a history of hypertension to which she takes losartan 100 mg at home. Plan: - BP labile due to pain and bacteremia, hold losartan #History of constipation Patient does have a history of constipation likely secondary to her opiate use. Plan: - Resumed patient's home docusate 100 mg daily as needed for constipation Hospital management: Lines: PIV, b/l nephrostomy tubes Diet: carb consistent low, renal Bowel: docusate prn GI prophylaxis: not indicated DVT prophylaxis: SCDs Disposition: med tele, overnight obs as R neph tube replaced today, anticipate dc within 24-48h CODE STATUS: FULL CODE This case was discussed with my attending physician, Dr. Braga, and senior resident, Dr. Wills. Francesca Orosco, DO Internal Medicine PGY-1 Senior Resident Attestation: The patient's right nephrostomy tube was changed today by IR, and as the patient has been previously in severe pain after changing left nephrostomy tube, we will manage her pain overnight, and if stable by tomorrow morning we will discharge her to home. I discussed with and supervised the international student advisor physician involved in the care of this patient. I personally saw and examined the patient and discussed the assessment and plan with the entire medicine team, including my attending. I agree with the assessment and plan as documented above. Rodrigo Wills MD PGY3 Internal Medicine Attending Provider Attestation/Addendum 44-year-old female patient with urothelial cancer of the bladder status post right nephrostomy tube exchange today. The patient will follow-up with Dr. Friedman. She has buttock lesion described as bullous. HSV testing done. She is on Levaquin for UTI. I discussed with and supervised the resident physician who took care of this patient. I agree with the assessment and plan as above.
[2025-05-05] MEDS: INSULIN LISPRO (AdmeLOG) 1 UNIT/0.01 ML UNIT SC (21:05)
[2025-05-06] VITALS: BP 144/86; PULSE 75; PULSE 85; RESP 16; TEMP 36.7; O2SAT 99
[2025-05-06] MEDS: HYDROmorphone INJ 2 MG/ML VIAL 1 MG IVP (02:35)
[2025-05-06 04:00] VITALS: BP 134/81; PULSE 73; PULSE 74; RESP 18; TEMP 36.3; O2SAT 98
[2025-05-06 05:16] VITALS: BP 134/81; PULSE 74
[2025-05-06] MEDS: GABAPENTIN 300 MG CAPSULE PO (05:16)
[2025-05-06 05:17] LABS: Basophils # (Auto) 0.0 Thou/mm3 (0.0-0.2); Basophils % (Auto) 1 % (0-2.5); Eosinophils # (Auto) 0.1 Thou/mm3 (0.0-0.5); Eosinophils % (Auto) 3 % (0-10); Hematocrit 25.7 % (36.0-46.0); Immature Granulocytes Auto 0.03 Thou/mm3 (0.00-0.00); Lymphocytes # (Auto) 1.4 Thou/mm3 (1.0-4.8); Lymphocytes % (Auto) 27 % (10-50); Mean Corpuscular HGB Conc 31.9 g/dl (31.0-37.0); Mean Corpuscular Hemoglobin 27.6 pg (25.0-35.0); Mean Corpuscular Volume 87 fL (80-100); Monocytes # (Auto) 0.5 Thou/mm3 (0.0-0.8); Monocytes % (Auto) 10 % (0-12); Neutrophils # (Auto) 3.1 Thou/mm3 (1.8-7.7); Neutrophils % (Auto) 59 % (37-80); Nucleated Red Blood Cell # 0.00 Thou/mm3 (0.00-0.00); Nucleated Red Blood Cell % 0 /100 WBC (0); Platelet Count 361 Thou/mm3 (140-440); RDW Standard Deviation 44.5 fL (36.4-46.3); Red Blood Count 2.97 Miln/mm3 (4.00-5.20); White Blood Count 5.2 Thou/mm3 (3.6-11.0)
[2025-05-06 05:31] LABS: Hemoglobin 8.2 g/dL (12.0-16.0)
[2025-05-06 06:19] LABS: Alanine Aminotransferase < 7 U/L (10-49); Albumin, Serum 3.7 gm/dL (3.5-5.0); Albumin/Globulin Ratio 1.2 (1.2-2.2); Alkaline Phosphatase 113 U/L (46-116); Anion Gap 11 (7-16); Aspartate Amino Transferase 12 U/L (0-34); BUN/Creatinine Ratio 11 Ratio (12-20); Bilirubin,Total < 0.2 mg/dL (0.3-1.2); Blood Urea Nitrogen 16 mg/dL (9-23); Calcium 8.6 mg/dL (8.3-10.6); Calcium (Corrected) 8.8 mg/dL (8.5-10.1); Carbon Dioxide 23.2 mMol/L (20.0-31.0); Chloride 104 mMol/L (98-107); Creatinine (Component) 1.4 mg/dL (0.6-1.3); Estimated Creatinine Clearance 47.1 mL/min (>60); Globulin 3.1 gm/dL (2.3-3.5); Glucose 178 mg/dL (74-106); Magnesium 1.6 mg/dL (1.6-2.6); Osmolality,Calculated 280 (275-295); Phosphorous 3.8 mg/dL (2.4-5.1); Potassium 5.2 mMol/L (3.4-5.1); Sodium 138 mMol/L (136-145); Total Protein 6.8 gm/dL (5.7-8.2); eGFR 48 See Note
[2025-05-06 08:00] VITALS: BP 106/65; PULSE 75; RESP 18; TEMP 36.7; O2SAT 97
[2025-05-06] MEDS: HYDROcodone/APAP 5/325 TABLET 1 TAB PO (08:19)
[2025-05-06] MEDS: FLUCONAZOLE 100 MG TABLET 400 MG PO (08:19)
[2025-05-06] MEDS: POLYETHYLENE GLYCOL 17 GM PACKET PO (08:20)
--- NOTE | 2025-05-06 08:34 | ESCONSULT_ITS ---
RE: [id number] LIN : 1980 DATE OF CONSULTATION: 05/04/2025 CHIEF COMPLAINT: 1. Bilateral hydroureteronephrosis status post placement of bilateral percutaneous nephrostomy tubes. 2. Recurrent multiresistant UTI. 3. History of cervical cancer, status post laser therapy done in 2019. 4. Status post cysto and resection of the bladder mass, which turned out to be benign. HISTORY OF PRESENT ILLNESS: This is a 44-year-old female. She has a very complex history. This patient had cervical cancer causing bilateral ureteral obstructions. I reviewed the chart. She is status post laser therapy back in 2019; according to the patient, it was done at [facility]. I have not seen any pathology report indicated above cervical cancer. Patient is receiving radiation and chemo This patient has recently been started on radiation therapy on 04/27/2025 and she also had 1 dose of chemotherapy. I talked to Dr. Garcia, who is a passenger car inspector. No biopsy of the cervical lesion was done. The patient was referred to [facility] in [place]. The patient did not keep the appointment. The reason for this visit to the emergency room was headache, which is worsened over time. Patient took oral morphine and her pain subsided, but she still has a lingering pain when she came to the emergency room. CAT scan of the head was negative for any acute process. Patient also has a history of right flank pain and itching sensation. There is no history of fever, chills, chest pain, shortness of breath, or abdominal pain. Patient has urosepsis she had replacement of left nephrostomy tube because of the infection right nephrostomy tube was not replaced Sepsis alert was called and patient was given 1.5 L of LR IV, acetaminophen 1 g, magnesium was given. She also received a dose of Zosyn. PAST MEDICAL HISTORY, FAMILY HISTORY, REVIEW OF THE SYSTEM, PERSONAL HISTORY: Please refer to patient history form dated 05/01/2025. It is in HPI, in EMR. PHYSICAL EXAMINATION: General: Patient is lying comfortably in bed, not in acute distress. Skin: Warm and dry. HEENT: Normocephalic, atraumatic. Eyes: No anemia or jaundice. Neck: Supple. Trachea is central. Thyroid is not enlarged. Extremities: Reveal no edema, cyanosis, or clubbing. Vital Signs: Stable. They are in HPI, in EMR. Chest: Symmetrical. Heart: Regular rate and rhythm. Abdomen: No masses. VARIOUS LABORATORIES: WBC is 16.8. Hemoglobin is 9.7. Hematocrit is 29.3. Serum sodium is 133. Potassium is 4.3. Creatinine is 1.4. In the past, patient was recommended to be transferred to [facility][note 3] for management of cervical cancer and bilateral hydronephrosis and no appointment has been made. Patient had transvaginal ultrasound done on 03/13/2025. It showed calcified cervical mass measuring 1.9 x 1.[address] scan done on 04/01/2025 shows subcentimeter abdominal and pelvic lymph nodes. OTHER COMORBID CONDITIONS: 1. Hypertension. 2. Normocytic anemia. 3. Insulin-dependent diabetes mellitus. 4. Pulmonary masses, right lower lobe. 5. Urine is infected. PLAN: 1. Replacement of right percutaneous nephrostomies. 2. Urine for culture sensitivity and treat infection according to the culture sensitivity. I still believe this patient needs to be transferred to [facility] for management of cervical cancer, possible metastatic disease. DT: 16:21:25 TT: 22:36:00 Ref: [id number] - TID: [id number] [facility]
[2025-05-06 08:57] VITALS: PULSE 72
[2025-05-06] MEDS: ALBUTEROL RT 2.5 MG/0.5 ML NEBU INH (08:57)
[2025-05-06 09:00] VITALS: PULSE 75; RESP 18; O2SAT 100
--- NOTE | 2025-05-06 10:25 | ESDS_ITS ---
Planned Discharge Date 05/06/25 DS: Providers Provider Date of admission: 05/01/25 01:45 Primary care physician: Physician No Primary/Family Admitting Provider: Renetta Amezcua MD Attending Provider on Admission: Santi Braga MD Consults: 05/01/25 12:03 Consult to Urology Routine Comment: Nephrostomy tube replacement Consulting Provider: Aarti Friedman 05/03/25 14:58 Referral Wound Care Routine Comment: Left buttock swelling Attending Provider on DC: Charly Clements MD Discharging Provider: Charly Clements MD DS: Diagnosis Problem List Completed Was Problem List Reviewed/Reconciled?: Yes Hospital Course Hospital Course Hospital course: Summary: Kacy Cedillo 44F pmhx significant for cervical cancer s/p laser therapy 2018 with recurrence and now on radiation daily and chemo weekly, 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 Patient was admitted for management of Klebsiella pneumonia bacteremia, complicated UTI of Klebsiella pneumonia, Serratia marcescens and Enterococcus faecalis, and nephrostomy tube replacement. Patient noted to have fever in the ED of 102 with leukocytosis and elevated lactic acid. Patient has history of multidrug-resistant UTIs and UA on admission highly suggestive of infection. Patient has not nephrostomy tubes since they were placed back in 01/14/2025. Patient was treated with antibiotics and fluids and left nephrostomy tube successfully changed 05/01/2025 and right nephrostomy tube successfully changed 05/05/2025. Following replacement of n ephrostomy tubes, patient's flank and suprapubic pain greatly resolved. Notably, patient does have a history of cervical cancer in which she does receive chemotherapy weekly and radiation daily, both of which were held inpatient. Spoke to [facility] (Dr. Mayberry's office) regarding her treatment and mentioned that patient does also have pulmonary masses and needs follow-up. Of note, patient was also noted to have a small 1 cm white fluid- filled bullae noticed on left posterior back on 05/03 with some pain however on discharge, completely flattened however patient will need to follow-up HSV results. Furthermore patient was also noted to have SAPPHIRE on CKD 3A however resolved following fluid administration. On discharge, patient is hemodynamically stable, vitals and labs deemed to be stable and patient is ready to be discharged home. Discharge Recommendations: - Please take all medications as prescribed - START levofloxacin for your urine and blood infection. Take one tablet every 48hrs to complete 5 more doses. - START Gabapentin for pain. - Continue all home medications except as above - Please follow up with your PCP within one week of discharge - Please follow up with your urologist within one week of discharge - Please follow up with your oncologist within one week of discharge - If your symptoms worsen, please seek immediate medical attention and return to your nearest emergency room. - If you do not have a PCP, you may follow up at the [facility] at [address] [place] [address] [address] [id number], Hospital Diagnoses: #Pyelonephritis likely 2/2 chronic nephrostomy tubes #Klebsiella pneumoniae bacteremia #Complicated UTI, Klebsiella pnemoniae, Serratia marcescens, Enterococcus faecalis #Non-malignant bladder mass (urothelial papilloma) causing #Bilateral hydronephrosis s/p bilateral nephrostomy tube placement (11/2024) #s/p L nephrostomy tube replacement 05/01/2025 #s/p R nephrostomy tube replacement 05/05/2025 #History of recurrent multidrug resistant UTIs #Bullae on L posterior lower back #Suprapubic pain 2/2 #Cervical cancer on radiation daily and chemo weekly #History of cervical mass (previously 19 x 15 x 24 mm) #History of cervical cancer s/p laser therapy (2018) #Insulin dependent type 2 diabetes #Normocytic anemia #EMILY #Anemia of chronic disease #History of Valley Fever #Pulmonary masses, right upper lobe and right lower lobe #History of hypertension #History of constipation Plan of care discussed with attending Dr. Clements, and PGY-3 Dr. Wills. Francesca Orosco, DO Internal Medicine, PGY-1 Senior Resident Attestation: I discussed with and supervised the supply chain intern physician involved in the care of this patient. I personally saw and examined the patient and discussed the assessment and plan with the entire medicine team, including my attending. I agree with the discharge plan as documented above. Rodrigo Wills MD PGY3 Internal Medicine Time Spent with Patient Time attestation: Total time spent providing and/or coordinating discharge services: Time spent: Greater than 30 minutes Exam Vital Signs Temp Pulse Resp BP Pulse Ox O2 Del Method O2 Flow Rate 98.0 F 75 18 106/65 100 Room Air 3 05/06/25 08:00 05/06/25 09:00 05/06/25 09:00 05/06/25 08:00 05/06/25 09:00 05/06/25 08:00 05/05/25 11:06 Narrative Exam GENERAL: AOx3, no acute distress, poor dentition HEENT: mucous membranes moist, bilateral sclera anicteric CARDIOVASCULAR: regular rate and rhythm, S1/S2 present, no murmurs appreciated PULMONARY: clear to auscultation bilaterally, no rales/rhonchi/wheezes ABDOMINAL: soft, non-distended, no rebound/guarding, bowel sounds present : nephrostomy tubes in place draining clear urine EXTREMITIES: no peripheral edema SKIN: warm and dry, intact, no rashes, posterior above L buttock flattened blister, nontender NEURO: CN II-XII grossly intact, no focal deficits, alert, following commands Discharge Plan Plan Patient Disposition: HOME (Self Care) Patient condition on transfer: Stable Care Plan Goals: - You have been started on levofloxacin for your urine and blood infection. Take one tablet every 48hrs to complete 5 more doses. - You have been started on Gabapentin for pain. - Continue the rest of your medications as before. - Continue follow up with your urologist as outpatient - Continue follow up with the cancer center for your cervical cancer and pulmonary nodules. - Follow up with your primary care physician within 1 week of discharge. If you do not have a primary care physician, please follow up with the [facility] Residents clinic ([phone]) ? If you experience any new, worsening or persistent symptoms either call your primary doctor, or dial 911 or present to the emergency department. Prescriptions/Referrals Prescriptions/Med Rec: New gabapentin 300 mg Capsule 300 mg PO TID 30 Days Qty: 90 0RF levofloxacin 750 mg tablet 750 mg PO Q48H Qty: 5 0RF Continued insulin glargine-yfgn 100 unit/mL (3 mL) insulin pen 30 unit SUBCUT DAILY polyethylene glycol 3350 17 gram/dose powder 17 g PO QDAY insulin lispro [Admelog SoloStar U-100 Insulin] 100 unit/mL insulin pen 5 unit SUBCUT TID Patient Comments: INJECT 5 UNITS SUBCUTANEOUSLY THREE TIMES DAILY WITH MEALS PER SLIDING SCALE MAX 20 UNITS PER DAY morphine 30 mg tablet extended release 30 mg PO Q12H Patient Comments: TAKE 1 TABLET BY MOUTH TWICE DAILY FOR 15 DAYS olanzapine 2.5 mg tablet 2.5 mg PO QPM PRN (Reason: nausea) Patient Comments: TAKE 1 TABLET BY MOUTH ONCE DAILY AT BEDTIME TAKE FOR FOUR DAYS STARTING DAY 1 OF CHEMOTHERAPY FOR NAUSEA hydrocodone-acetaminophen 10-325 mg tablet 1 tab PO Q6H MDD one tab upto 3 times daily PRN (Reason: pain) fluconazole 200 mg tablet 200 mg PO DAILY Patient Comments: TAKE 2 TABLETS BY MOUTH ONCE DAILY FOR 28 DAYS hydralazine 50 mg tablet 50 mg PO TID famotidine 20 mg tablet 20 mg PO DAILY Patient Comments: TAKE 1 TABLET BY MOUTH ONCE DAILY FOR 30 DAYS docusate sodium [Stool Softener] 100 mg capsule 100 mg PO BID PRN (Reason: constipation) Discontinued losartan 100 mg tablet 100 mg PO .QD Patient Comments: TAKE 1 TABLET BY MOUTH ONCE DAILY Referrals: No Primary/Family,Physician [Primary Care Provider] Patient/Caregiver Discharge Instructions Education Materials: ED Bacteremia, Suspected (Adult) Print Language: Yakut Stand Alone Forms: Nina Award Info., Patient Portal Info Letter Discharge Order Discharge Orders: Discharge (Routine); Ordered 05/06/25 Ordered By: Francesca Orosco Quality Discharge Quality Measures VTE prophylaxis Attestestation Attestation I reviewed labs, imaging, EKG, home medications and prior available records. Face to face evaluation was performed by me. I have personally examined the patient and discussed assessment and plan with the IM team. I reviewed the resident note and agree with the plan with exceptions as below. Bladder papilloma Nephrostomy tube infection Acute UTI, Klebsiella Cervical metastasis SAPPHIRE on CKD stage III, resolved Will continue levofloxacin for 10 days Outpatient follow-up with oncology No need for inpatient transfer Outpatient follow-up with urology Continue fluconazole Continue insulin therapy and monitor fingersticks Time spent is 34 minutes. More than 50% of the time was spent on patient education and coordination of care.
[2025-05-08 06:25] LABS: HSV1 IgG Type Specific Ab* 32.70 INDEX; HSV2 IgG Type Specific Ab* 13.60 INDEX
== END 2025-05-06 11:30 | disposition home or self-care (01) | DRG 466 ==
LOC: SERX 05-01 00:06 → SERHOLD 05-01 01:59 → S3NX 05-01 04:57
PROVIDERS: Radiology Diagnostic Radiology; Student in an Organized Health Care Education/Training Program; Admitting Provider Student in an Organized Health Care Education/Training Program; Visit Provider Internal Medicine
DX: T83.518A Infection and inflammatory reaction due to other urinary catheter, initial encounter (principal); N13.6 Pyonephrosis; C53.9 Malignant neoplasm of cervix uteri, unspecified; D30.3 Benign neoplasm of bladder; E87.20 Acidosis, unspecified; R91.8 Other nonspecific abnormal finding of lung field; D63.8 Anemia in other chronic diseases classified elsewhere; E87.1 Hypo-osmolality and hyponatremia; N17.9 Acute kidney failure, unspecified; N18.31 Chronic kidney disease, stage 3a; I12.9 Hypertensive chronic kidney disease with stage 1 through stage 4 chronic kidney disease, or unspecified chronic kidney disease; K59.03 Drug induced constipation; D50.9 Iron deficiency anemia, unspecified; E11.22 Type 2 diabetes mellitus with diabetic chronic kidney disease; Z79.4 Long term (current) use of insulin; Z79.899 Other long term (current) drug therapy; Z87.440 Personal history of urinary (tract) infections; Z93.6 Other artificial openings of urinary tract status; Y84.6 Urinary catheterization as the cause of abnormal reaction of the patient, or of later complication, without mention of misadventure at the time of the procedure
CPT/HCPCS: 36415; 70450; 71045; 75984; 80053; 80069; 81001; 82728; 83036; 83540; 83550; 83605; 83615; 83690; 83735; 83880; 84100; 84145; 84484; 84702; 85014; 85018; 85025; 85610; 85730; 86635; 86695; 86696; 87040; 87077; 87086; 87186; 93005; 93225; 94640; 96361; 96365; 96366; 99152; 99285; C1729; C1769; J0360; J0692; J0696; J1171; J1642; J1815; J1956; J2250; J2405; J2543; J3010; J3475; J3490; J7030; J7050; J7120; J7999; Q9963; A9270